=== PATIENT | male | born 1945 | race Caucasian/White ===

== ENCOUNTER 2018-12-08 07:25 | Emergency (ER) | payer MEDICARE ==
--- OUTSIDE RECORDS SUMMARY | 2018-12-08 07:31 | XMS REPORT ---
:1945 [facility] Address [address] [place] [address] [address]. [address] [place] [address] Care Team Providers Name Role Phone Unavailable Unavailable Unavailable Payers Payer Name Policy Type Policy Number Effective Date Expiration Date Problems This patient has no known problems. Allergies, Adverse Reactions, Alerts Allergy Allergy Status Severity Reaction(s) Onset Inactive Treating Comments Name Type Date Date Clinician Tetanus DA Active SV 2017-06 Vaccines -12 and Toxoid 00:00:0 0 Medications This patient has no known medications.
--- OUTSIDE RECORDS SUMMARY | 2018-12-08 07:31 | XMS REPORT | Clinical Summary ---
:1945 Author Organization [facility] Address [address] [place] [address] Care Team Providers Name Role Phone Adam Osman MD Primary Care Provider Allergies Active Allergy Reactions Severity Noted Date Comments Cephalosporins 05/16/2017 Sulfa (Sulfonamide Antibiotics) Rash Low 09/29/2015 Tetanus And Diphtheria Toxoids, Adsorbed, Anaphylaxis High 09/29/2015 Adult Tetanus Vaccines And Toxoid 05/16/2017 Medications Medication Sig Dispensed Refills Start Date End Date Status theophylline Take 600 mg by 0 Active (MESFIN-24) 300 MG 24 mouth daily. hr capsule metFORMIN Take 500 mg by 0 Active (GLUCOPHAGE) 500 mg mouth 2 (two) tablet times a day with meals. guaiFENesin Take 600 mg by 0 Active (MUCINEX) 600 mg mouth 2 (two) tablet extended times a day. release 12hr amLODIPine (NORVASC) Take 10 mg by 0 Active 10 mg tablet mouth daily. traMADol (ULTRAM) 50 Take 150 mg by 0 Active mg tablet mouth nightly. tamsulosin (FLOMAX) Take 0.4 mg by 0 Active 0.4 mg capsule mouth daily with dinner. aspirin (ASPIR-81 Take by mouth. 0 Active ORAL) fluticasone Inhale 1 0 Active furoate-vilanterol inhalations once (BREO ELLIPTA) daily. 200-25 mcg/dose blister with device powder for inhalation umeclidinium Inhale. Uses in 0 Active (INCRUSE ELLIPTA) the afternoon 62.5 mcg/actuation blister with device insulin GLARGINE Inject 20 Units 0 Active (LANTUS) 100 unit/mL under the skin injection (vial) nightly. albuterol (PROAIR Inhale 2 puffs 0 Active HFA,PROVENTIL every 6 (six) HFA,VENTOLIN HFA) 90 hours as needed mcg/actuation for wheezing. inhaler fexofenadine Take 180 mg by 0 Active (MASSIMO) 180 MG mouth daily as tablet needed. traMADol (ULTRAM) 50 Take 1 tablet 10 tablet 0 12/02/2018 12/13/19 Active mg tablet (50 mg total) by 19 mouth every 6 (six) hours as needed for moderate pain for up to 10 days. phenazopyridine Take 1 tablet 30 tablet 0 12/02/2018 12/13/19 Active (PYRIDIUM) 200 MG (200 mg total) 19 tablet by mouth 3 (three) times a day as needed for bladder spasms for up to 10 days. VALSARTAN (DIOVAN Take 1 tablet by 0 11/27/19 Discontinued ORAL) mouth daily. 19 phenazopyridine Take 1 tablet 30 tablet 0 12/02/2018 12/03/19 Discontinued (PYRIDIUM) 200 MG (200 mg total) 19 tablet by mouth 3 (three) times a day as needed for bladder spasms for up to 10 days. ciprofloxacin Take 1 tablet 10 tablet 0 12/02/2018 12/03/19 Discontinued (CIPRO) 500 MG (500 mg total) 19 tablet by mouth 2 (two) times a day for 5 days. traMADol (ULTRAM) 50 Take 1 tablet 10 tablet 0 12/02/2018 12/03/19 Discontinued mg tablet (50 mg total) by 19 mouth every 6 (six) hours as needed for moderate pain for up to 10 days. ciprofloxacin Take 1 tablet 10 tablet 0 12/02/2018 12/08/19 (CIPRO) 500 MG (500 mg total) 19 tablet by mouth 2 (two) times a day for 5 days. Active Problems Not on file Encounters Date Type Specialty Care Team Description 12/02/2018 Surgery Urology Alex Pugh, EXAM UNDER ANESTHESIA, BILATERAL RETROGRADE, REMOVAL OF BLADDER STONE, BLADDER BIOPSY 12/02/2018 Anesthesia Event Urology Triny Hawkins, DISTANCE EDUCATION FACULTY LIAISON 12/02/2018 Hospital Encounter Urology Alex Pugh, Bladder cancer ( HCC) MD after 12/07/2017 Social History Tobacco Use Types Packs/Day Years Used Date Former Smoker Cigarettes 3 48 Quit: 2005 Smokeless Tobacco: Never Used Alcohol Use Drinks/Week oz/Week Comments Not Currently Sex Assigned at Date Recorded Not on file Job Start Date Occupation Industry Not on file Not on file Not on file Travel History Travel Start Travel End No recent travel history available. Last Filed Vital Signs Vital Sign Reading Time Taken Blood Pressure 104/58 12/02/2018 1:43 PM CDT Pulse 107 12/02/2018 1:43 PM CDT Temperature 36.5 C (97.7 F) 12/02/2018 1:43 PM CDT Respiratory Rate 14 12/02/2018 1:43 PM CDT Oxygen Saturation 98% 12/02/2018 1:43 PM CDT Inhaled Oxygen Concentration - - Weight 92.3 kg (203 lb 9 oz) 12/02/2018 9:26 AM CDT Height 180.3 cm (5' 11") 12/02/2018 9:26 AM CDT Body Mass Index 28.39 12/02/2018 9:26 AM CDT Plan of Treatment Health Maintenance Due Date Last Done Comments COLON CANCER SCREENING 1996 SHINGLES VACCINES (#1) 1996 65+ PNEUMOCOCCAL VACCINE (1 of 2 - PCV13) 2011 PNEUMOCOCCAL POLYSACCHARIDE VACCINE AGE 65 AND OVER 2011 INFLUENZA VACCINE 02/05/2019 Procedures Procedure Name Priority Date/Time Associated Comments Diagnosis SURGICAL PATHOLOGY Routine 12/02/2018 1:17 PM Results for this REQUEST CDT procedure are in the results section. CYTOLOGY Routine 12/02/2018 12:54 PM Results for this (NON-GYNECOLOGICAL) CDT procedure are in REQUEST the results section. POC GLUCOSE Routine 12/02/2018 11:37 AM Results for this CDT procedure are in the results section. FL PYELOGRAM Routine 12/02/2018 11:25 AM Results for this RETROGRADE CDT procedure are in the results section. CALCULI ANALYSIS Routine 12/02/2018 11:09 AM Results for this WITH PHOTO CDT procedure are in the results section. CYSTOSCOPY, WITH 12/02/2018 10:55 AM Bladder cancer TURBT CDT ([facility]) Case Notes TF, REQ 1230 START, EST 1HR, POSSIBLE EXTENDED STAY, R/S PER PACO 11/07 [facility] Special Needs TF, REQ 1230 START, EST 1HR, POSSIBLE EXTENDED STAY [place] AN ELECTIVE SUPRAGLOTTIC AIRWAY Routine 12/02/2018 10:53 AM CDT Procedure Note - Jared Esteban Jr., GENERAL MERCHANDISE SALESPERSON - 12/02/2018 10:53 AM CDT Airway Date/Time: 12/02/2018 10:42 AM Performed by: Jared Esteban Jr., CRNA Authorized by: Jonah Johnson DO Location: OR Urgency: Elective Difficult Airway: No Preoxygenated with 100% O2: Yes C-spine Precautions Maintained Throughout: Yes Mask Ventilation: Easy mask Final Airway Type: Supraglottic airway Final LMA: Ambu LMA Size: 5 Number of Attempts at Approach: 1 POC GLUCOSE Routine 12/02/2018 9:15 AM CDT after 12/07/2017 Results Surgical pathology request (12/02/2018 1:17 PM CDT) [facility] DEPARTMENT OF PATHOLOGY AND GENOMIC MEDICINE Surgical pathology See link below [facility] DEPARTMENT OF report for PDF Lab PATHOLOGY AND Report GENOMIC MEDICINE Result status This is Final [facility] DEPARTMENT OF Report for PATHOLOGY AND [id number] GENOMIC MEDICINE Specimen Narrative Performed At [id number] [facility] DEPARTMENT OF PATHOLOGY AND GENOMIC MEDICINE [place] Performing Organization Address [facility] Phone Number [facility] DEPARTMENT OF PATHOLOGY AND [address] [place] [id number] GENOMIC MEDICINE Cytology (non-gynecological) request (12/02/2018 12:54 PM CDT) [facility] DEPARTMENT OF PATHOLOGY AND GENOMIC MEDICINE Cytology See link below [facility] DEPARTMENT OF (non-gynecological) for PDF Lab PATHOLOGY AND report Report GENOMIC MEDICINE Result status This is Final [facility] DEPARTMENT OF Report for PATHOLOGY AND [id number] GENOMIC MEDICINE Specimen Performing Organization Address [facility] Phone Number [facility] DEPARTMENT OF PATHOLOGY AND [address] [place] [phone] GENOMIC MEDICINE POC glucose (12/02/2018 11:37 AM CDT)Only the most recent of2 resultswithin the time period is included. Pathologist [facility] POC glucose 124 (H) 65 - 99 mg/dL [facility] Comment: [facility] Notified RN Meter ID: [id number] Advisory Software Engineer: Edmund Paredesa Specimen Performing Organization Address City/[facility] Phone Number [facility] DEPARTMENT OF PATHOLOGY AND [address] [place] [phone] GENOMIC MEDICINE [facility] [address] [place] [address] [place] Pyelogram Retrograde (12/02/2018 11:25 AM CDT) Specimen Narrative Performed At IMPRESSION:C-arm Fluoroscopy under 1 hour was provided in the OR for [facility] the referring physician.A radiologist was not present during the procedure. Refer to the Operative report issued by the performing provider for procedure details. Procedure Note Interface, Radiology Results Incoming - 12/02/2018 3:09 PM CDT IMPRESSION: C-arm Fluoroscopy under 1 hour was provided in the OR for the referring physician. A radiologist was not present during the procedure. Refer to the Operative report issued by the performing provider for procedure details. Performing Organization Address City/State/Zipcode Phone Number [facility] [address] [place] [address] Calculi analysis with photo (12/02/2018 11:09 AM CDT) Calculi mass See Note mg [facility] Comment: Sample mass < 2 mg. Small sample size prevents accurate weight determination. Calculi number 1 [facility] Calculi size 1 to 4 mm [facility] Calculi descrption See Note [facility] Comment: Specimen received wet, not the preferred dry state. Wet specimens often delay analysis. Specimen consists of a single, small, brown, irregular calculus. Calculi composition See Note [facility] Comment: Calculi composed primarily of: 90% calcium oxalate monohydrate, and 10% calcium phosphate (hydroxy- and carbonate- apatite). INTERPRETIVE INFORMATION: Calculi (Stone) analysis Calculi are the products of physiological processes that yield crystalline compounds in a matrix of biological compounds and blood.Matrix components are not reported.The clinically significant crystalline components identified in calculi specimens are reported.Gross description may not be consistent with composition determined by FTIR analysis. EER calculi (stone) See Note [facility] analysis and photo Comment: Access [facility] Enhanced Report using either link below: -Direct access: [email or web address] -Enter Username, Password: [email or web address] Username: [email or web address] Password: [email or web address] Performed by [facility] [employer], [address] [place] [address] [email or web address], Walker Larkin MD - Lab. Director Specimen Serum Narrative Performed At [id number] [facility] [place] Performing Organization Address City/State/Zipcode Phone Number [facility] [address] [place] [address] [facility] [address] [place] [address] after 12/07/2017 Advance Directives Patient has advance care planning documents on file. For more information, please contact:Jose Miguel Garces[address] [place] [address]
--- NOTE | 2018-12-08 07:56 | EKG ---
Test Date: 2018-12-08 Test Time: 07:44:55 Weld Engineer: SWG MEASUREMENT RESULTS: Intervals: Rate: 134 NC: QRSD: 128 QT: 400 QTc: 597 Paden: P: NC: QRS: -64 T: 94 INTERPRETIVE STATEMENTS: Sinus tachycardia Left axis deviation Right bundle branch block Abnormal ECG Compared to ECG 08/11/2016 05:35:34 Sinus rhythm no longer present Electronically Signed On 12-08-18 07:55:25 CDT by Ric Hudson
[2018-12-08] MEDS ORDERED: ALBUTEROL 2.5 MG/3 ML NEB SOL ONE (07:59)
[2018-12-08] MEDS ORDERED: NA CHLORIDE 0.9% 500 ML ONE (07:59)
[2018-12-08] MEDS ORDERED: IPRATROPIUM BROM 0.5MG/2.5ML ONE (07:59)
[2018-12-08 08:08] LABS: Absolute Lymphocytes (CBC) 0.7 K/uL (0.7-4.9); Absolute Monocytes 0.9 K/uL (0.1-1.3); Absolute Neutrophil 7.9 K/uL (1.8-8.0); Basophils % 1.1 % (0-1.3); Eosinophils % 0.3 % (0-4.4); Hematocrit 39.9 % (39.6-49.0); Lymphocytes % 7.4 % (15.3-44.8); MPV 9.4 fL (7.6-11.3); Monocytes % 9.3 % (3.3-12.3); RBC Red Blood Cell Count 4.97 M/uL (4.33-5.43)
[2018-12-08 08:12] LABS: Protime INR 1.18
[2018-12-08 08:37] LABS: Albumin 3.1 g/dL (3.4-5.0); Bilirubin Direct 0.2 mg/dL (0-0.2); Bilirubin Total 0.5 mg/dL (0.2-1.0); Magnesium 1.9 mg/dL (1.8-2.4); Potassium 4.1 mmol/L (3.5-5.1); Protein, Total 7.3 g/dL (6.4-8.2)
[2018-12-08 08:38] LABS: Troponin (Emerg Dept Use Only) 1.45 ng/mL (0.0-0.045)
--- NOTE | 2018-12-08 09:05 | RAD REPORT ---
EXAM DESCRIPTION: RAD - Chest Single View - 12/08/2018 7:52 am CLINICAL HISTORY: COPD Chest pain. COMPARISON: Chest Pa And Lat (2 Views) dated 11/07/2018; Chest Pa And Lat (2 Views) dated 05/13/2018; C hest Pa And Lat (2 Views) dated 10/30/2016; Abdomen 1 View (KUB) dated 10/08/2016 FINDINGS: Portable technique limits examination quality. Diffuse COPD is present. Rounded opacity in the medial right upper lobe and left lung base noted susp icious for infiltrate/ pneumonia bilaterally. The heart is normal in size. No displaced fractures. IMPRESSION: Bilateral pneumonia pattern is suspected.
--- NOTE | 2018-12-08 09:49 | ER ---
Nurse's Notes [facility] Name: Massimo Hauser Age: 73 yrs Sex: Male : 1945 Arrival Date: 12/08/2018 Time: 07:26 Bed 4 Private MD: Kevin Arana Diagnosis: Lobar pneumonia, unspecified organism;Non-ST elevation (NSTEMI) myocardial infarction Presentation: 12/08 07:35 Presenting complaint: states: pt has had increasing SOB X 6 days, hx of COPD, uses home O2 as needed but has been needing it 28/01, pt is 80% on RA, denies fever, +cough, symptoms started after bladder biopsy at [facility] on Saturday. Transition of care: patient was not received from another setting of care. Onset of symptoms was December 02, 2018. Risk Assessment: Do you want to hurt yourself or someone else? Patient reports no desire to harm self or others. Initial Sepsis Screen: Does the patient meet any 2 criteria? RR > 20 per min. HR > 90 bpm. Does the patient have a suspected source of infection? No. Patient's initial sepsis screen is negative. Initial Sepsis Screen: Does the patient have a suspected source of infection?. Care prior to arrival: None. 07:35 Method Of Arrival: Wheelchair iw 07:35 Acuity: CHEO 2 iw Historical: - Allergies: 07:41 CEPHALOSPORINS; iw 07:41 Sulfa (Sulfonamide Antibiotics); iw 07:41 Tetanus Immune Globulin; iw - Home Meds: 14:17 Flomax 0.4 mg oral cp24 once daily [Active]; Lantus 100 unit/mL subcutaneous soln 20 sg unit nightly [Active]; metformin 500 mg oral tab 2 times per day [Active]; Norvasc 10 mg oral tab once daily [Active]; irbesartan 150 mg oral tab 1 tab once daily [Active]; atorvastatin 10 mg oral tab 1 tab once daily [Active]; tramadol 50 mg Oral tab 1 tab every 6 hours [Active]; Breo Ellipta 200-25 mcg/dose inhalation dsdv 1 puff once daily [Active]; Incruse Ellipta 62.5 mcg/actuation inhalation dsdv 1 puff once daily [Active]; - PMHx: 07:41 Diabetes - NIDDM; COPD; Emphysema; Hypertension; iw - Immunization history:: Adult Immunizations up to date. - Social history:: The patient lives at home, Smoking status: Patient/guardian denies using tobacco. - Ebola Screening: : Patient negative for fever greater than or equal to 101.5 degrees Fahrenheit, and additional compatible Ebola Virus Disease symptoms Patient denies exposure to infectious person Patient denies travel to an Ebola-affected area in the 21 days before illness onset No symptoms or risks identified at this time. Screenin:50 Abuse screen: Denies threats or abuse. Denies injuries from another. Nutritional hb screening: No deficits noted. Tuberculosis screening: No symptoms or risk factors identified. Fall Risk None identified. Assessment: 07:45 General: Appears distressed, Behavior is cooperative, agitated. Pain: Denies pain. hb Neuro: Level of Consciousness is awake, alert, obeys commands, Oriented to person, place, time, situation. Cardiovascular: Heart tones S1 S2 present Capillary refill < 3 seconds Patient's skin is warm and dry. Rhythm is tachy. Respiratory: Airway is patent Trachea midline Respiratory effort is labored, Respiratory pattern is tachypnea Breath sounds are diminished bilaterally. Breath sounds with rhonchi bilaterally. GI: No signs and/or symptoms were reported involving the gastrointestinal system. : No signs and/or symptoms were reported regarding the genitourinary system. EENT: No signs and/or symptoms were reported regarding the EENT system. Derm: Skin is intact, is healthy with good turgor, Skin is pink, warm \T\ dry. Musculoskeletal: No signs and/or symptoms reported regarding the musculoskeletal system. 08:30 Reassessment: No changes from previously documented assessment. Patient and/or family hb updated on plan of care and expected duration. Pain level reassessed. 09:30 Reassessment: No changes from previously documented assessment. Patient and/or family hb updated on plan of care and expected duration. Pain level reassessed. 10:15 Reassessment: No changes from previously documented assessment. Patient and/or family hb updated on plan of care and expected duration. Pain level reassessed. 11:09 Reassessment: No changes from previously documented assessment. Patient and/or family hb updated on plan of care and expected duration. Pain level reassessed. Admission ordered, awaiting room assignment at this time. 11:45 Reassessment: Pt reports increasing SOB, SpO2 >95% on 4LNC, Dr. Tavares notified. No new hb orders at this time. 11:59 Reassessment: Dr. Hudson at bedside. hb 12:40 Reassessment: Patient and/or family updated on plan of care and expected duration. Pain hb level reassessed. Respirations mildly labored, SpO2 >95% on 4LNC. Dr. Tavares aware. 13:30 Reassessment: No changes from previously documented assessment. Patient and/or family hb updated on plan of care and expected duration. Pain level reassessed. 14:15 Reassessment: Pt reports worsening SOB, Dr. Tavares notified, amiodarone adminsitered as hb ordered. Dr. Hudson at bedside. Vital Signs: 07:39 BP 112 / 71; Pulse 136; Resp 25; Temp 97.8(TE); Pulse Ox 80% on R/A; Weight 86.18 kg iw (R); Height 5 ft. 11 in. (180.34 cm); Pain 0/10; 07:42 Pulse Ox 92% on 4 lpm NC; iw 09:00 BP 110 / 68; Pulse 134; Resp 21; Pulse Ox 93% on 4 lpm NC; hb 10:00 BP 106 / 64; Pulse 128; Resp 22; Pulse Ox 94% on 4 lpm NC; hb 11:00 BP 104 / 88; Pulse 136; Resp 21; Temp 97.9; Pulse Ox 94% on 4 lpm NC; Pain 0/10; hb 07:39 Body Mass Index 26.50 (86.18 kg, 180.34 cm) iw ED Course: 07:26 Patient arrived in ED. mr 07:27 Kevin Arana MD is Private Physician. mr 07:38 Lauro Tavares MD is Attending Physician. gs 07:39 Triage completed. iw 07:39 Arm band placed on. iw 07:42 Missed attempt(s): 20 gauge in left forearm. Bleeding controlled, band aid applied, hb catheter tip intact. 07:50 X-ray completed. Portable x-ray completed in exam room. Patient tolerated procedure jb2 well. 07:50 Patient has correct armband on for positive identification. Placed in gown. Bed in low hb position. Call light in reach. Side rails up X 1. 07:53 XRAY Chest (1 view) In Process Unspecified. EDMS 07:58 Initial lab(s) drawn, by me, sent to lab. Inserted saline lock: 20 gauge in right dh3 forearm, using aseptic technique. Blood collected. 07:58 First set of blood cultures drawn by me, Flu and/or RSV swab sent to lab. dh3 08:15 Second set of blood cultures drawn by me. dh3 08:39 Notified ED physician of a critical lab result(s). Trop=1.45. iw 09:28 lactate drawn by me and sent to lab. dh3 09:48 Selena Chavez MD is Hospitalizing Provider. gs 10:07 Repeat lab(s) drawn. by me, sent to lab. sputum culture collected and sent to lab. dh3 10:26 Natasha Simons, VIKTORIYA is Primary Nurse. hb 10:45 Notified ED physician of a critical lab result(s). TROP 1.24. iw 13:39 EKG done, by senior wind turbine technician. reviewed by Lauro Tavares MD Repeat EKG. at1 14:40 No provider procedures requiring assistance completed. Patient admitted, IV remains in hb place. Administered Medications: 07:50 Drug: Albuterol 2.5 mg Route: Inhalation; sg 07:50 Drug: AtroVENT Aerosol 0.5 mg Route: Inhalation; hb 07:50 Drug: NS 0.9% 500 ml Route: IV; Rate: bolus; Site: right forearm; sg 08:30 Follow up: Response: No adverse reaction; IV Status: Completed infusion; IV Intake: sg 500ml 09:55 Drug: LevaQUIN 750 mg Volume: 150 ml; Route: IVPB; Infused Over: 90 mins; Site: right hb forearm; 11:40 Follow up: Response: No adverse reaction; IV Status: Completed infusion; IV Intake: hb 150ml 10:02 Drug: Aspirin Chewable Tablet 324 mg Route: PO; hb 11:00 Follow up: Response: No adverse reaction sg 13:45 Not Given (Duplicate Order): amiodarone 150 mg IVP once iw 14:10 Drug: amiodarone 150 mg Volume: 100 ml; Route: IVPB; Infused Over: 10 mins; Site: right sg antecubital; 14:25 Follow up: Response: No adverse reaction; IV Status: Completed infusion sg Intake: 08:30 IV: 500ml; Total: 500ml. sg 11:40 IV: 150ml; Total: 650ml. hb Outcome: 09:48 Decision to Hospitalize by Provider. gs 14:20 ER care complete, transfer ordered by . gs 14:40 Transferred by ground EMS to [facility]. hb 14:40 Condition: stable 14:40 Instructed on the need for admit, Demonstrated understanding of instructions. 14:56 Patient left the ED. sg Signatures: Dispatcher [employer] EDLele Whipple RN RN Esther Hair, Jasmeet jb2 Karen Marcelo RN RN Triny Marquez, personal property appraiser EKG Tat1 Natasha Simons RN RN Manny, Sabrina 3 Lauro Tavares MD MD Corrections: (The following items were deleted from the chart) 14:17 08:06 Home Meds: Aspirin Oral; [facility] 14:17 08:06 Home Meds: Diovan Oral; [facility] 14:17 08:06 Home Meds: Flomax Oral; [facility] 14:17 08:06 Home Meds: Lantus Sub-Q; [facility] 14:17 08:06 Home Meds: Metformin Oral; [facility] 14:17 08:06 Home Meds: Mucinex Oral; [facility] 14:17 08:06 Home Meds: Norvasc Oral; [facility] 14:17 08:06 Home Meds: Theophylline Oral; [facility]
--- NOTE | 2018-12-08 09:50 | EDPHYS ---
Physician Documentation [facility] Name: Massimo Hauser Age: 73 yrs Sex: Male : 1945 Arrival Date: 12/08/2018 Time: 07:26 Bed 4 Private MD: Kevin Arana ED Physician Lauro Tavares HPI: 12/08 09:14 This 73 yrs old Male presents to ER via Wheelchair with complaints of gs Breathing Difficulty. 09:14 Onset: The symptoms/episode began/occurred 5 day(s) ago, and became worse and became gs persistent. Duration: The symptoms are continuous. The patient's shortness of breath has no apparent modifying factors. Associated signs and symptoms: Pertinent positives: non-productive cough, Pertinent negatives: chest pain, fever. Severity of symptoms: At their worst the symptoms were severe in the emergency department the symptoms are unchanged. The patient has experienced similar episodes in the past, a few times. Historical: - Allergies: 07:41 CEPHALOSPORINS; iw 07:41 Sulfa (Sulfonamide Antibiotics); iw 07:41 Tetanus Immune Globulin; iw - Home Meds: 14:17 Flomax 0.4 mg oral cp24 once daily [Active]; Lantus 100 unit/mL subcutaneous soln 20 sg unit nightly [Active]; metformin 500 mg oral tab 2 times per day [Active]; Norvasc 10 mg oral tab once daily [Active]; irbesartan 150 mg oral tab 1 tab once daily [Active]; atorvastatin 10 mg oral tab 1 tab once daily [Active]; tramadol 50 mg Oral tab 1 tab every 6 hours [Active]; Breo Ellipta 200-25 mcg/dose inhalation dsdv 1 puff once daily [Active]; Incruse Ellipta 62.5 mcg/actuation inhalation dsdv 1 puff once daily [Active]; - PMHx: 07:41 Diabetes - NIDDM; COPD; Emphysema; Hypertension; iw - Immunization history:: Adult Immunizations up to date. - Social history:: The patient lives at home, Smoking status: Patient/guardian denies using tobacco. - Ebola Screening: : Patient negative for fever greater than or equal to 101.5 degrees Fahrenheit, and additional compatible Ebola Virus Disease symptoms Patient denies exposure to infectious person Patient denies travel to an Ebola-affected area in the 21 days before illness onset No symptoms or risks identified at this time. ROS: 09:14 All other systems are negative. gs Exam: 09:14 Head/Face: Normocephalic, atraumatic. Eyes: Pupils equal round and reactive to light, gs extra-ocular motions intact. Lids and lashes normal. Conjunctiva and sclera are non-icteric and not injected. Cornea within normal limits. Periorbital areas with no swelling, redness, or edema. ENT: Nares patent. No nasal discharge, no septal abnormalities noted. Tympanic membranes are normal and external auditory canals are clear. Oropharynx with no redness, swelling, or masses, exudates, or evidence of obstruction, uvula midline. Mucous membranes moist. Neck: Trachea midline, no thyromegaly or masses palpated, and no cervical lymphadenopathy. Supple, full range of motion without nuchal rigidity, or vertebral point tenderness. No Meningismus. Chest/axilla: Normal chest wall appearance and motion. Nontender with no deformity. No lesions are appreciated. 09:14 Abdomen/GI: Soft, non-tender, with normal bowel sounds. No distension or tympany. No guarding or rebound. No evidence of tenderness throughout. Back: No spinal tenderness. No costovertebral tenderness. Full range of motion. Skin: Warm, dry with normal turgor. Normal color with no rashes, no lesions, and no evidence of cellulitis. MS/ Extremity: Pulses equal, no cyanosis. Neurovascular intact. Full, normal range of motion. Neuro: Awake and alert, GCS 15, oriented to person, place, time, and situation. Cranial nerves II-XII grossly intact. Motor strength 5/5 in all extremities. Sensory grossly intact. Cerebellar exam normal. Normal gait. 09:14 Constitutional: The patient appears alert, awake, in obvious distress, severely distressed. 09:14 Cardiovascular: Rate: tachycardic, Rhythm: regular, Pulses: no pulse deficits are appreciated, Heart sounds: normal. 09:14 ECG was reviewed by the Attending Physician. 09:14 Respiratory: severe repiratory distress is noted, Respirations: tachypnea, Breath sounds: decreased breath sounds, that are moderate, are scattered. Vital Signs: 07:39 BP 112 / 71; Pulse 136; Resp 25; Temp 97.8(TE); Pulse Ox 80% on R/A; Weight 86.18 kg iw (R); Height 5 ft. 11 in. (180.34 cm); Pain 0/10; 07:42 Pulse Ox 92% on 4 lpm NC; iw 09:00 BP 110 / 68; Pulse 134; Resp 21; Pulse Ox 93% on 4 lpm NC; hb 10:00 BP 106 / 64; Pulse 128; Resp 22; Pulse Ox 94% on 4 lpm NC; hb 11:00 BP 104 / 88; Pulse 136; Resp 21; Temp 97.9; Pulse Ox 94% on 4 lpm NC; Pain 0/10; hb 07:39 Body Mass Index 26.50 (86.18 kg, 180.34 cm) iw MDM: 07:38 Patient medically screened. gs 09:14 Differential diagnosis: Bronchitis CHF exacerbation, Chronic Obstructive Pulmonary gs Disease Myocardial Infarction pneumonia. Data reviewed: vital signs, nurses notes, diagnostic data from outside facility, lab test result(s), EKG, radiologic studies. Counseling: I had a detailed discussion with the patient and/or guardian regarding: the historical points, exam findings, and any diagnostic results supporting the discharge/admit diagnosis, the need for further work-up and treatment in the hospital. Response to treatment: the patient's symptoms have markedly improved after treatment, and as a result, I will admit patient. 12:47 ED course: dr tomlinson felt pt might need cath and balloon pump requests transfer. 12/08 07:39 Order name: Basic Metabolic Panel; Complete Time: 08:40 12/08 07:39 Order name: CBC with Diff; Complete Time: 08:40 12/08 07:39 Order name: LFT's; Complete Time: 08:40 12/08 07:39 Order name: Magnesium; Complete Time: 08:40 12/08 07:39 Order name: NT PRO-BNP; Complete Time: 08:40 12/08 07:39 Order name: PT-INR; Complete Time: 08:40 12/08 07:39 Order name: Troponin (emerg Dept Use Only); Complete Time: 08:40 12/08 07:41 Order name: D-Dimer; Complete Time: 08:51 gs 12/08 09:14 Order name: Lactate; Complete Time: 12:36 12/08 09:38 Order name: Blood Culture EDAK 12/08 09:38 Order name: Influenza Screen (A ; Complete Time: 12:36 [facility] 12/08 09:38 Order name: Procalcitonin; Complete Time: 12:36 [facility] 12/08 09:38 Order name: Sputum Culture EDAK 12/08 09:38 Order name: Troponin I [facility] 12/08 07:39 Order name: XRAY Chest (1 view); Complete Time: 09:07 12/08 07:39 Order name: EKG; Complete Time: 07:42 12/08 09:38 Order name: CONS Physician Consult [facility] 12/08 09:38 Order name: Troponin I; Complete Time: 12:36 [facility] 12/08 12:38 Order name: ABG 12/08 07:39 Order name: Cardiac monitoring; Complete Time: 07:41 12/08 07:39 Order name: EKG - Nurse/Tech; Complete Time: 07:41 12/08 07:39 Order name: IV Saline Lock; Complete Time: 08:23 12/08 07:39 Order name: Labs collected and sent; Complete Time: 08:23 12/08 07:39 Order name: O2 Per Protocol; Complete Time: 07:41 12/08 07:39 Order name: O2 Sat Monitoring; Complete Time: 07:41 gs EC:14 Rate is 134 beats/min. Rhythm is regular. QRS interval is prolonged. QT interval is gs prolonged. Clinical impression: NSR w/ Non-specific ST/T Changes and Cardiac ischemia. Interpreted by me. Administered Medications: 07:50 Drug: Albuterol 2.5 mg Route: Inhalation; sg 07:50 Drug: AtroVENT Aerosol 0.5 mg Route: Inhalation; hb 07:50 Drug: NS 0.9% 500 ml Route: IV; Rate: bolus; Site: right forearm; sg 08:30 Follow up: Response: No adverse reaction; IV Status: Completed infusion; IV Intake: sg 500ml 09:55 Drug: LevaQUIN 750 mg Volume: 150 ml; Route: IVPB; Infused Over: 90 mins; Site: right hb forearm; 11:40 Follow up: Response: No adverse reaction; IV Status: Completed infusion; IV Intake: hb 150ml 10:02 Drug: Aspirin Chewable Tablet 324 mg Route: PO; hb 11:00 Follow up: Response: No adverse reaction sg 13:45 Not Given (Duplicate Order): amiodarone 150 mg IVP once iw 14:10 Drug: amiodarone 150 mg Volume: 100 ml; Route: IVPB; Infused Over: 10 mins; Site: right sg antecubital; 14:25 Follow up: Response: No adverse reaction; IV Status: Completed infusion sg Disposition: 09:14 Critical Care:. gs Disposition: 12/08/18 14:20 Transfer ordered to [facility]. Diagnosis are Lobar pneumonia, unspecified organism, Non-ST elevation (NSTEMI) myocardial infarction. - Reason for transfer: Higher level of care. - Accepting physician is ashley. - Condition is Stable. - Problem is new. - Symptoms have improved. Critical care time excluding procedures: 09:14 Critical care time: Bedside Care: 10 minutes, Consultation: 10 minutes, Family gs Intervention: 10 minutes. Total time: 30 minutes Signatures: Dispatcher [employer] EDLele Whipple RN RN Karen Marcelo RN RN Natasha Simons RN RN Lauro Tavares MD MD Sae Ma RN RN ja Corrections: (The following items were deleted from the chart) 09:49 09:48 Hospitalization Ordered by Selena Chavez MD for Inpatient Admission. Preliminary diagnosis is Lobar pneumonia, unspecified organism; Acute respiratory failure with hypoxia. Bed requested for Telemetry/MedSurg (Inpatient). Status is Inpatient Admission. Condition is Stable. Problem is new. Symptoms have improved. UTI on Admission? No. gs 10:10 09:49 12/08/2018 09:48 Hospitalization Ordered by Selena Chavez MD for Inpatient ja1 Admission. Preliminary diagnosis is Lobar pneumonia, unspecified organism; Acute respiratory failure with hypoxia; Non-ST elevation (NSTEMI) myocardial infarction. Bed requested for Telemetry/MedSurg (Inpatient). Status is Inpatient Admission. Condition is Stable. Problem is new. Symptoms have improved. UTI on Admission? No. gs 11:46 10:10 12/08/2018 09:48 Hospitalization Ordered by Selena Chavez MD for Inpatient iw Admission. Preliminary diagnosis is Lobar pneumonia, unspecified organism; Acute respiratory failure with hypoxia; Non-ST elevation (NSTEMI) myocardial infarction. Bed requested for Telemetry/MedSurg (Inpatient). Status is Inpatient Admission. Condition is Stable. Problem is new. Symptoms have improved. UTI on Admission? No. ja1 11:49 11:46 12/08/2018 09:48 Hospitalization Ordered by Selena Chavez MD for Inpatient Admission. Preliminary diagnosis is Lobar pneumonia, unspecified organism; Acute respiratory failure with hypoxia; Non-ST elevation (NSTEMI) myocardial infarction. Bed requested for Telemetry/MedSurg (Inpatient). Status is Inpatient Admission. Condition is Stable. Problem is new. Symptoms have improved. UTI on Admission? No. 12:43 11:49 12/08/2018 09:48 Hospitalization Ordered by Selena Chavez MD for Inpatient [facility] Admission. Preliminary diagnosis is Lobar pneumonia, unspecified organism; Acute respiratory failure with hypoxia; Non-ST elevation (NSTEMI) myocardial infarction. Bed requested for Intensive Care Unit. Status is Inpatient Admission. Condition is Stable. Problem is new. Symptoms have improved. UTI on Admission? No. 12:47 12:43 12/08/2018 09:48 Hospitalization Ordered by Selena Chavez MD for Inpatient Admission. Preliminary diagnosis is Lobar pneumonia, unspecified organism; Acute respiratory failure with hypoxia; Non-ST elevation (NSTEMI) myocardial infarction. Bed requested for Intensive Care Unit. Status is Inpatient Admission. Condition is Stable. Problem is new. Symptoms have improved. UTI on Admission? No. ja1 14:17 08:06 Home Meds: Aspirin Oral; sg 14:17 08:06 Home Meds: Diovan Oral; sg 14:17 08:06 Home Meds: Flomax Oral; sg 14:17 08:06 Home Meds: Lantus Sub-Q; iw sg 14:17 08:06 Home Meds: Metformin Oral; sg 14:17 08:06 Home Meds: Mucinex Oral; sg 14:17 08:06 Home Meds: Norvasc Oral; sg 14:17 08:06 Home Meds: Theophylline Oral; sg 14:18 12:47 12/08/2018 09:48 Hospitalization Ordered by Selena Chavez MD for Inpatient Admission. Preliminary diagnosis is Lobar pneumonia, unspecified organism; Acute respiratory failure with hypoxia; Non-ST elevation (NSTEMI) myocardial infarction. Bed requested for Intensive Care Unit. Status is Inpatient Admission. Condition is Stable. Problem is new. Symptoms have improved. UTI on Admission? No. iw 14:56 14:20 12/08/2018 14:20 Transfer ordered to [facility]. Diagnosis is sg Lobar pneumonia, unspecified organism; Non-ST elevation (NSTEMI) myocardial infarction. Reason for transfer: Higher level of care. Accepting physician is ashley. Condition is Stable. Problem is new. Symptoms have improved. gs
[2018-12-08] MEDS ORDERED: ASPIRIN 81 MG CHEWABLE TABLET ONE (10:17)
[2018-12-08] MEDS ORDERED: Levofloxacin 750mg IV 750 MG/150 ML BAG IV ONE (10:17)
--- NOTE | 2018-12-08 12:12 | ECHO ---
HEIGHT: ft in WEIGHT: lb oz DATE OF STUDY: 12/08/[address]: Ric Hudson MD 2-DIMENSIONAL: YES M.MODE: YES DOPPLER: YES COLOR FLOW: YES TDS: YES PORTABLE: NO DEFINITY: NO BUBBLE STUDY: NO DIAGNOSIS: SHORTNESS OF BREATH CARDIAC HISTORY: CATHERIZATION: SURGERY: PROSTHETIC VALVE: PACEMAKER: MEASUREMENTS (cm) DIASTOLIC (NORMALS) SYSTOLIC (NORMALS) IVSd 1.0 (0.6-1.2) LA Diam (1.9-4.0) LVEF 23% LVIDd 5.5 (3.5-5.7) LVIDs 4.9 (2.0-3.5) %FS 11% LVPWd 1.1 (0.6-1.2) Ao Diam 2.9 (2.0-3.7) 2 DIMENSIONAL ASSESSMENT: RIGHT ATRIUM: DILATED LEFT ATRIUM: DILATED RIGHT VENTRICLE: DILATED LEFT VENTRICLE: DILATED TRICUSPID VALVE: NORMAL MITRAL VALVE: NORMAL PULMONIC VALVE: NORMAL AORTIC VALVE: NORMAL PERICARDIAL EFFUSION: NONE AORTIC ROOT: NORMAL LEFT VENTRICULAR WALL MOTION: GLOBAL HYPOKINESIS. DOPPLER/COLOR FLOW: NORMAL. COMMENTS: FOUR CHAMBER DILATATION. BI VENTRICULAR CONGESTIVE HEART FAILURE TECHNOLOGIST: MEENU PEREIRA
[2018-12-08] MEDS ORDERED: MIDAZOLAM HCL 2 MG/2 ML INJ ONE (13:58)
[2018-12-08] MEDS ORDERED: NA CHLORIDE 0.9% 1,000 ML ONE (13:59)
[2018-12-08] MEDS ORDERED: FENTANYL CITR 100 MCG/2 ML ONE (13:59)
[2018-12-08] MEDS ORDERED: AMIODARONE HCL 150 MG/3 ML INJ IV ONE (13:59)
[2018-12-08] MEDS ORDERED: D5W 100 ML IV ONE (14:03)
--- NOTE | 2018-12-08 14:58 | EKG ---
Test Date: 2018-12-08 Test Time: 13:36:57 Purchasing Director: IRA MEASUREMENT RESULTS: Intervals: Rate: 147 LA: QRSD: 132 QT: 352 QTc: 550 [place]: P: LA: QRS: -71 T: 94 INTERPRETIVE STATEMENTS: Sinus tachycardia with PAC sLeft axis deviation Right bundle branch block Abnormal ECG Compared to ECG 12/08/2018 07:44:55 PAC s are now present Electronically Signed On 12-08-18 14:57:41 CDT by Ric Hudson
[2018-12-08 15:05] VITALS: O2SAT 94
[2018-12-08 15:07] VITALS: BP 104/88; TEMP 97.9
--- NOTE | 2018-12-08 16:27 | CON ---
History Of Present Illness: Mr. Hauser is a 73. He came to the hospital because of shortness of breath. He has been short of breath for about 5 days. Denies any fever or chills, but he has been c oughing and progressively more and more short of breath and having chest pain. When he came to the ospital his x-ray looks like pneumonia right upper lobe, perhaps also on the left. He has a normal w odalis blood cell count but a leftward shift. Does not have a fever. Quite dyspneic and he has sinus tachycardia with a right bundle. His right bundle is old. All of his other EKGs have shown right bu ndle-branch block. Mr. Hauser was a heavy cigarette smoker. He has underlying bladder cancer. R ecently, he had a biopsy of bladder tissue that seemed to be the onset of when he started feeling dys pneic. He also has a history of bilateral iliac artery stents, but no coronary stents. He was evalu ated by Dr. Lindsay about a month ago. There were no issues regarding his heart at that time. His ome medications are aspirin, Diovan, Flomax, Lantus insulin, metformin, Mucinex, Norvasc, and theophy lline. He has underlying diabetes, COPD, hypertension, peripheral vascular disease, bladder cancer. Allergies: HE IS ALLERGIC TO SULFONAMIDE ANTIBIOTICS AND CEPHALOSPORIN ANTIBIOTICS. Physical Examination: General: He is alert, oriented, pleasant. He is out of breath. Lungs: Revealed a decreased breath sounds on his right lung, especially upper. There are wheezes th roughout. Abdomen: Soft. Extremities: No edema. Distal pulses are diminished but palpable. Laboratory Data: His EKG shows sinus tachycardia, right bundle-branch block and troponins are 1.45 a nd 1.24. The procalcitonin level is less than 0.05. Impression: The patient seems to have either consolidation from pulmonary edema or a mass or pneumon ia. Seeing the procalcitonin, white blood cell count, it is hard to really think this is purely pneum onia. It looks more complicated and I think a CT of the chest might be helpful to figure out what is going on in that right upper lobe of his lung. Pulmonary change consultant might also be helpful. The abn ormal troponins suggest myocardial necrosis. I think an echocardiogram will help us. At some point he should probably have a cardiac cath. Right now trying to treat his breathing trouble without lisa stallworth a cardiac cath, is probably useful. We need to try and get his heart rate lower, blood pressure hi gher, get him more comfortable before we do a cardiac cath. ALBERT Voice ID: [id number] Report ID: [id number]
== END 2018-12-08 14:56 | disposition short-term general hospital (02) ==
LOC: ER 07:25 → ERHOLD 09:36 → UNDOADMIN 09:36 → ER 14:56
DX: I21.4 Non-ST elevation (NSTEMI) myocardial infarction (principal); J18.1 Lobar pneumonia, unspecified organism; I10 Essential (primary) hypertension; E11.9 Type 2 diabetes mellitus without complications; J44.9 Chronic obstructive pulmonary disease, unspecified; Z79.4 Long term (current) use of insulin; Z88.2 Allergy status to sulfonamides; Z88.3 Allergy status to other anti-infective agents; Z88.7 Allergy status to serum and vaccine
CPT/HCPCS: 96365; 96361; 93005 ×2; 93306; 87040 ×2; 85025; 80048; 36415; 83735; 87205; 85610; 85379; 80076; 83605; 84484 ×2; 84145; 83880; 87804 ×2; 71045; 96375; 99285; 96366; J0282; J7030; J2250; J3010

== ENCOUNTER 2019-01-14 11:24 | Inpatient (IN) | payer MEDICARE ==
--- OUTSIDE RECORDS SUMMARY | 2019-01-14 11:45 | XMS REPORT | Clinical Summary ---
:1945 Author Organization [facility] Address [address] [place] [address] Care Team Providers Name Role Phone Adam [...] 180 MG mouth daily as tablet needed. VALSARTAN (DIOVAN Take 1 tablet by 0 [...] 1 tablet 10 tablet 0 12/02/2018 12/13/19 mg tablet (50 mg total) by 19 mouth every 6 (six) hours as needed for moderate pain for up to 10 days. phenazopyridine Take 1 tablet 30 tablet 0 12/02/2018 12/13/19 (PYRIDIUM) 200 MG (200 mg total) 19 tablet by mouth 3 (three) times a day as needed for bladder spasms for up to 10 days. Active Problems Not on file Encounters Date Type Specialty Care Team Description 12/26/2018 Telephone Urology Alex Pugh MD 12/12/2018 Telephone Urology Alex Pugh MD 12/02/2018 Surgery Urology Alex Pugh, EXAM UNDER ANESTHESIA, BILATERAL RETROGRADE, REMOVAL OF BLADDER STONE, BLADDER BIOPSY 12/02/2018 Anesthesia Event Urology Triny Hawkins, WATCH BAND ASSEMBLER 12/02/2018 Hospital Encounter Urology Alex Pugh, Bladder cancer ( HCC) MD after 01/13/2018 Social History Tobacco Use Types Packs/Day Years Used Date Former Smoker Cigarettes 3 48 Quit: 2006 Smokeless Tobacco: Never Used Alcohol Use Drinks/Week [...] Health Maintenance Due Date Last Done Comments COLONOSCOPY SCREENING 1996 SHINGLES VACCINES (#1) 1996 65+ PNEUMOCOCCAL VACCINE (1 of 2 - PCV13) 2011 INFLUENZA VACCINE 02/05/2019 Procedures Procedure Name [...] 12/02/2018 10:55 AM Bladder cancer TURBT CDT ([facility]) Case Notes TF, REQ 1230 START, EST 1HR, POSSIBLE EXTENDED STAY, R/S PER PACO 05/03 [facility] Special Needs TF, REQ 1230 START, EST 1HR, POSSIBLE EXTENDED STAY [place] AN ELECTIVE SUPRAGLOTTIC AIRWAY Routine 12/02/2018 10:53 AM CDT Procedure Note - Jared Esteban Jr. LINE LOCATOR - 12/02/2018 10:53 AM CDT Airway Date/Time: [...] GLUCOSE Routine 12/02/2018 9:15 AM CDT after 01/13/2018 Results Surgical pathology request (12/02/2018 1:17 PM CDT) [facility] DEPARTMENT OF PATHOLOGY AND GENOMIC MEDICINE Surgical pathology See link below [facility] DEPARTMENT OF report for PDF Lab PATHOLOGY AND Report GENOMIC MEDICINE Result status This is Final [facility] DEPARTMENT OF Report for PATHOLOGY AND [id number] GENOMIC MEDICINE Specimen Narrative Performed At [id number] [facility] DEPARTMENT OF PATHOLOGY AND GENOMIC MEDICINE [place] Performing Organization Address [facility] Phone Number [facility] DEPARTMENT OF PATHOLOGY AND [address] [place] [id number] GENOMIC MEDICINE Cytology (non-gynecological) request (12/02/2018 12:54 PM CDT) [facility] DEPARTMENT OF PATHOLOGY AND GENOMIC MEDICINE Cytology See link below [facility] DEPARTMENT OF (non-gynecological) for PDF Lab PATHOLOGY AND report Report GENOMIC MEDICINE Result status This is Final [facility] DEPARTMENT OF Report for PATHOLOGY AND [id number] GENOMIC MEDICINE Specimen Performing Organization Address [facility] Phone Number [facility] DEPARTMENT OF PATHOLOGY AND [address] [place] [id number] GENOMIC MEDICINE POC glucose (12/02/2018 11:37 AM CDT)Only the most recent of2 resultswithin the time period is included. Pathologist [facility] POC glucose 124 (H) 65 - 99 mg/dL [facility] Comment: [facility] Notified RN Meter ID: [id number] Bulb Packer: Edmund Moncada Specimen Performing Organization Address City/State/Zipcode Phone Number [facility] DEPARTMENT OF PATHOLOGY AND [address] [place] [address] GENOMIC MEDICINE [facility] [address] [place] [address] [place] Pyelogram Retrograde (12/02/2018 11:25 AM CDT) [...] provider for procedure details. Performing Organization Address City/[facility]/Zipcode Phone Number [facility] [address] [place] [address] Calculi analysis with photo (12/02/2018 11:09 AM [...] REF LAB analysis and photo Comment: Access [facility] Enhanced Report using either link below: -Direct access: [email or web address] -Enter Username, Password: [email or web address] Username: [email or web address] Password: [email or web address] Performed by [facility], [address] [place] [address] [email or web address], Walker Larkin MD - Lab. Director Specimen Serum Narrative Performed At [id number] [facility]ORAT[facility] [place] Performing Organization Address City/State/Zipcode Phone Number [facility] [address] [place] [address] [facility] [address] [place] [address] after 01/13/2018 Advance Directives Patient has advance care planning documents on file. For more information, please contact:Jose Miguel Garces[address] [place] [address]
--- OUTSIDE RECORDS SUMMARY | 2019-01-14 11:47 | XMS REPORT | Clinical Summary ---
:1945 Author Organization [facility] Address [address] [place] [address] Care Team Providers Name Role Phone Pcp, No Primary Care Provider Unavailable Randy Tapia Unavailable Allergies Active Allergy Reactions Severity Noted Date Comments Cephalosporins 12/08/2018 Sulfa (Sulfonamide Antibiotics) 12/08/2018 Tetanus Vaccines And Toxoid Anaphylaxis High 12/15/2018 Medications Medication Sig Dispensed Refills Start Date End Date Status umeclidinium 62.5 Inhalers by 0 Active (INCRUSE ELLIPTA) inhal. via small 62.5 vol.nebulizer route mcg/actuation daily. DsDv powder for inhalation metFORMIN Take 500 mg by 0 Active (GLUCOPHAGE) 500 mouth 2 (two) times MG tablet daily. tamsulosin Take 0.4 mg by 0 Active (FLOMAX) 0.4 mg mouth daily. Cap 24 hr capsule theophylline Take 300 mg by 0 Active (THEODUR) 300 MG mouth 2 (two) times 12 hr tablet daily. traMADol (ULTRAM) Take 50 mg by mouth 0 09/29/2015 Active 50 mg tablet as needed. amiodarone Take 1 tablet (200 30 tablet 0 01/01/2019 01/01/20 Active (PACERONE) 200 MG mg total) by mouth 20 tablet daily. aspirin 81 MG Take 1 tablet (81 0 01/01/2019 01/01/20 Active chewable tablet mg total) by mouth 20 daily. guaiFENesin Take 1 tablet (600 60 tablet 0 12/31/2018 12/31/19 Active (MUCINEX) 600 mg mg total) by mouth 20 12 hr tablet 2 (two) times daily. losartan (COZAAR) Take 0.5 tablets 30 tablet 0 01/01/2019 01/01/20 Active 25 MG tablet (12.5 mg total) by 20 mouth daily. magnesium oxide Take 1 tablet (400 0 01/01/2019 01/01/20 Active (MAG-OX) 400 mg mg total) by mouth 20 (241.3 mg daily. magnesium) tablet metoprolol Take 0.5 tablets 30 tablet 1 12/31/2018 12/31/19 Active (LOPRESSOR) 25 MG (12.5 mg total) by 20 tablet mouth 2 (two) times daily. zinc Apply to affected 170 g 0 12/31/2018 Active oxide-petrolatum area twice daily (CRITIC-AID) until buttock 20-51 % Pste wounds healed. topical paste bumetanide Take 1 tablet (1 mg 60 tablet 1 12/31/2018 12/31/19 Active (BUMEX) 1 MG total) by mouth 2 20 tablet (two) times daily. atorvastatin Take 1 tablet (40 30 tablet 1 12/31/2018 Active (LIPITOR) 40 MG mg total) by mouth tablet daily. insulin glargine Inject 20 Units 0 12/31/2018 Active (LANTUS SOLOSTAR subcutaneously U-100 INSULIN) daily Hold off on 100 unit/mL (3 restarting for now. mL) InPn Check your sugars at home. If sugars persistently high, resume.. fluticasone Inhale 2 puffs by 2 Inhaler 1 01/01/2019 Active propionate mouth via inhaler 2 (FLOVENT DISKUS) (two) times daily. 50 mcg/actuation diskus inhaler ipratropium-albut Take 3 mLs by 0 01/01/2019 12/27/19 Active esperanza (DUO-NEB) nebulization every 20 0.5 mg-3 mg(2.5 4 (four) hours as mg base)/3 mL needed for Wheezing nebulizer or Shortness of solution Breath for up to 360 days. albuterol-ipratro Inhale 2 puffs by 2 Inhaler 1 01/01/2019 Active pium (COMBIVENT mouth via inhaler RESPIMAT) 20-100 every 4 (four) mcg/actuation hours as needed for Mist inhaler Wheezing. HYDROcodone-aceta Take 1 tablet by 30 tablet 0 01/01/2019 Active minophen (NORCO mouth every 6 (six) 5-325) 5-325 mg hours as needed. per tablet Max Daily Amount: 4 tablets clopidogrel Take 1 tablet (75 30 tablet 1 01/02/2019 01/02/20 Active (PLAVIX) 75 mg mg total) by mouth 20 tablet daily. traMADol (ULTRAM) Take by mouth every 0 12/02/2018 01/01/20 Discontinued 50 mg tablet evening. 19 amLODIPine Take 10 mg by mouth 0 01/01/20 Discontinued (NORVASC) 10 MG daily. 19 tablet aspirin 0.1 mg Take 80 mg by 0 01/01/20 Discontinued mouth. 19 atorvastatin Take 10 mg by 0 01/01/20 Discontinued (LIPITOR) 10 MG mouth. 19 tablet theophylline 150 Take 300 mg by 0 12/10/19 Discontinued MG halftab half mouth 2 (two) times 19 tablet daily. valsartan Take 160 mg by 0 01/02/20 Discontinued (DIOVAN) 160 MG mouth daily. 19 tablet insulin glargine Inject 20 Units 0 01/01/20 Discontinued (LANTUS SOLOSTAR subcutaneously 19 U-100 INSULIN) daily. 100 unit/mL (3 mL) InPn fluticasone Inhale 200 mg by 0 01/02/20 Discontinued furoate-vilantero mouth via inhaler 19 l (BREO ELLIPTA) daily. 200-25 mcg/dose DsDv irbesartan Take 150 mg by 0 01/02/20 Discontinued (AVAPRO) 150 MG mouth daily. 19 tablet albuterol HFA Inhale 90 mcg by 0 01/02/20 Discontinued (PROAIR HFA) 90 mouth via inhaler 19 mcg/actuation daily. inhaler albuterol HFA Inhale 2 puffs by 0 01/02/20 Discontinued (PROVENTIL HFA) mouth via inhaler 19 90 mcg/actuation as needed. inhaler Active Problems Problem Noted Date S/P CABG x [address] Cavanaugh on 12/1512/17/2018 COPD exacerbation 12/09/2018 NSTEMI (non-ST elevated myocardial infarction) 12/09/2018 Acute on chronic systolic (congestive) heart failure 12/09/2018 PVD (peripheral vascular disease) 12/09/2018 Acute and chronic respiratory failure with hypoxia 12/08/2018 CAD (coronary artery disease) CHF (congestive heart failure) Ischemic cardiomyopathy Overview: EF < 20% Type 2 diabetes mellitus BPH (benign prostatic hyperplasia) Acute on chronic systolic heart failure Acute respiratory insufficiency Acute blood loss anemia Hyperglycemia Chronic obstructive pulmonary disease, unspecified COPD type Atrial fibrillation with RVR Paroxysmal atrial fibrillation Encounters Date Type Specialty Care Team Description 12/25/2018 Outside Orders Radiology Kelle Ayala 12/15/2018 Anesthesia Event Elieser Mai MD 12/15/2018 Surgery Randy Cavanaugh,AORTO MD Breonna CORONARY HARRISON/SVG 12/11/2018 Anesthesia Event Alfred Cordero MD 12/09/2018 Surgery Rashad Mayen L CATH & PCI 12/09/2018 Travel 12/08/2018 - Hospital Encounter Cardiology Kirit Serna Acute and chronic respiratory failure with hypoxia (HCC); 01/01/2019 MD Santiago Atrial fibrillation with RVR (HCC); Srinath COPD with acute exacerbation (HCC); Maico COPD exacerbation (HCC); MD Leonid Acute on chronic systolic (congestive) heart failure (HCC); Roseanna Monterroso Ischemic cardiomyopathy; MD Kee S/P CABG x 2 Tracy Ferrari MD Deng, Yi, MD Neason, Grey Cantu MD 12/08/2018 Orders Only General Internal Medicine 12/08/2018 Telephone Pulmonology Kirit Serna transfer MD Santiago after 01/13/2018 Family History Medical History Relation Name Comments Atrial fibrillation Brother Aortic aneurysm Father Cancer Father Heart disease Father Atrial fibrillation Mother Relation Name Status Comments Brother Father abdominal cancer Mother Social History Tobacco Use Types Packs/Day Years Used Date Former Smoker Cigarettes Quit: 2005 Sex Assigned at Date Recorded Not on file Job Start Date Occupation Industry Not on file Not on file Not on file Travel History Travel Start Travel End No recent travel history available. Last Filed Vital Signs Vital Sign Reading Time Taken Blood Pressure 103/51 01/01/2019 11:00 AM CDT Pulse 82 01/01/2019 11:52 AM CDT Temperature 36.3 C (97.3 F) 01/01/2019 11:00 AM CDT Respiratory Rate 18 01/01/2019 11:52 AM CDT Oxygen Saturation 93% 01/01/2019 11:52 AM CDT Inhaled Oxygen Concentration 28% 12/22/2018 8:39 AM CDT Weight 89.4 kg (197 lb 1.5 oz) 01/01/2019 8:23 AM CDT Height 180.3 cm (5' 11") 12/08/2018 4:40 PM CDT Body Mass Index 27.49 01/01/2019 8:23 AM CDT Plan of Treatment Not on file Procedures Procedure Name Priority Date/Time Associated Comments Diagnosis RHYTHM STRIP - SCAN 01/05/2019 3:41 PM CDT CARDIAC CATH REPORT - 01/02/2019 10:41 SCAN AM CDT VASCULAR DIAGRAM -SCAN 01/02/2019 10:41 AM CDT REPORT OF PROCEDURE - 01/02/2019 10:41 ENDOSCOPY SCAN AM CDT RHYTHM STRIP - SCAN 01/02/2019 10:40 AM CDT RHYTHM STRIP - SCAN 01/02/2019 10:40 AM CDT POCT-GLUCOSE METER Routine 01/01/2019 11:55 Results for this AM CDT procedure are in the results section. BASIC METABOLIC PANEL Routine 01/01/2019 7:58 Results for this (7) AM CDT procedure are in the results section. MAGNESIUM Routine 01/01/2019 7:58 Results for this AM CDT procedure are in the results section. POCT-GLUCOSE METER Routine 01/01/2019 7:15 Results for this AM CDT procedure are in the results section. B-TYPE NATRIURETIC Routine 01/01/2019 4:51 Results for this FACTOR (BNP) AM CDT procedure are in the results section. POCT-GLUCOSE METER Routine 12/31/2018 8:57 Results for this PM CDT procedure are in the results section. POCT-GLUCOSE METER Routine 12/31/2018 4:54 Results for this PM CDT procedure are in the results section. POCT-GLUCOSE METER Routine 12/31/2018 12:20 Results for this PM CDT procedure are in the results section. POCT-GLUCOSE METER Routine 12/31/2018 8:51 Results for this AM CDT procedure are in the results section. BASIC METABOLIC PANEL Routine 12/31/2018 5:00 Results for this (7) AM CDT procedure are in the results section. MAGNESIUM Routine 12/31/2018 5:00 Results for this AM CDT procedure are in the results section. POCT-GLUCOSE METER Routine 12/30/2018 9:15 Results for this PM CDT procedure are in the results section. POCT-GLUCOSE METER Routine 12/30/2018 5:08 Results for this PM CDT procedure are in the results section. POCT-GLUCOSE METER Routine 12/30/2018 11:59 Results for this AM CDT procedure are in the results section. POCT-GLUCOSE METER Routine 12/30/2018 7:58 Results for this AM CDT procedure are in the results section. CBC (HEMOGRAM ONLY) Routine 12/30/2018 6:06 Results for this AM CDT procedure are in the results section. BASIC METABOLIC PANEL Routine 12/30/2018 6:06 Results for this (7) AM CDT procedure are in the results section. MAGNESIUM Routine 12/30/2018 6:06 Results for this AM CDT procedure are in the results section. POCT-GLUCOSE METER Routine 12/29/2018 9:34 Results for this PM CDT procedure are in the results section. POCT-GLUCOSE METER Routine 12/29/2018 5:02 Results for this PM CDT procedure are in the results section. POCT-GLUCOSE METER Routine 12/29/2018 12:52 Results for this PM CDT procedure are in the results section. BASIC METABOLIC PANEL Routine 12/29/2018 4:13 Results for this (7) AM CDT procedure are in the results section. MAGNESIUM Routine 12/29/2018 4:13 Results for this AM CDT procedure are in the results section. POCT-GLUCOSE METER Routine 12/28/2018 9:18 Results for this PM CDT procedure are in the results section. POCT-GLUCOSE METER Routine 12/28/2018 4:57 Results for this PM CDT procedure are in the results section. POCT-GLUCOSE METER Routine 12/28/2018 12:09 Results for this PM CDT procedure are in the results section. BASIC METABOLIC PANEL Routine 12/28/2018 5:29 Results for this (7) AM CDT procedure are in the results section. MAGNESIUM Routine 12/28/2018 5:29 Results for this AM CDT procedure are in the results section. POCT-GLUCOSE METER Routine 12/27/2018 5:43 Results for this PM CDT procedure are in the results section. POCT-GLUCOSE METER Routine 12/27/2018 12:25 Results for this PM CDT procedure are in the results section. POCT-GLUCOSE METER Routine 12/27/2018 7:35 Results for this AM CDT procedure are in the results section. MAGNESIUM Routine 12/27/2018 5:39 Results for this AM CDT procedure are in the results section. POCT-GLUCOSE METER Routine 12/26/2018 9:49 Results for this PM CDT procedure are in the results section. POCT-GLUCOSE METER Routine 12/26/2018 5:34 Results for this PM CDT procedure are in the results section. XR CHEST 1 VIEW Routine 12/26/2018 4:20 Results for this PORTABLE/BEDSIDE PM CDT procedure are in the results section. POCT-GLUCOSE METER Routine 12/26/2018 11:51 Results for this AM CDT procedure are in the results section. POCT-GLUCOSE METER Routine 12/26/2018 7:19 Results for this AM CDT procedure are in the results section. B-TYPE NATRIURETIC Routine 12/26/2018 5:11 Results for this FACTOR (BNP) AM CDT procedure are in the results section. MAGNESIUM Routine 12/26/2018 5:11 Results for this AM CDT procedure are in the results section. POCT-GLUCOSE METER Routine 12/25/2018 9:10 Results for this PM CDT procedure are in the results section. POCT-GLUCOSE METER Routine 12/25/2018 4:59 Results for this PM CDT procedure are in the results section. POCT-GLUCOSE METER Routine 12/25/2018 11:57 Results for this AM CDT procedure are in the results section. XR CHEST 1 VIEW ELÍAS 12/25/2018 10:20 Results for this PORTABLE/BEDSIDE AM CDT procedure are in the results section. POCT-GLUCOSE METER Routine 12/25/2018 7:23 Results for this AM CDT procedure are in the results section. CBC W/PLT COUNT & AUTO Routine 12/25/2018 2:35 Results for this DIFFERENTIAL AM CDT procedure are in the results section. APTT Routine 12/25/2018 2:35 Results for this AM CDT procedure are in the results section. CALCIUM, IONIZED Routine 12/25/2018 2:35 Results for this AM CDT procedure are in the results section. CBC W/PLT COUNT & AUTO Routine 12/25/2018 2:35 Results for this DIFFERENTIAL AM CDT procedure are in the results section. BASIC METABOLIC PANEL Routine 12/25/2018 2:35 Results for this (7) AM CDT procedure are in the results section. MAGNESIUM Routine 12/25/2018 2:35 Results for this AM CDT procedure are in the results section. POCT-GLUCOSE METER Routine 12/24/2018 9:50 Results for this PM CDT procedure are in the results section. CALCIUM, IONIZED Routine 12/24/2018 6:42 Results for this PM CDT procedure are in the results section. MAGNESIUM Routine 12/24/2018 6:42 Results for this PM CDT procedure are in the results section. POTASSIUM Routine 12/24/2018 6:42 Results for this PM CDT procedure are in the results section. POCT-GLUCOSE METER Routine 12/24/2018 6:15 Results for this PM CDT procedure are in the results section. XR CHEST 1 VIEW STAT 12/24/2018 4:40 Results for this PORTABLE/BEDSIDE PM CDT procedure are in the results section. POCT-GLUCOSE METER Routine 12/24/2018 11:26 Results for this AM CDT procedure are in the results section. POCT-GLUCOSE METER Routine 12/24/2018 8:04 Results for this AM CDT procedure are in the results section. APTT Routine 12/24/2018 3:58 Results for this AM CDT procedure are in the results section. BASIC METABOLIC PANEL Routine 12/24/2018 3:58 Results for this (7) AM CDT procedure are in the results section. CBC (HEMOGRAM ONLY) Routine 12/24/2018 3:58 Results for this AM CDT procedure are in the results section. PHOSPHORUS Routine 12/24/2018 3:58 Results for this AM CDT procedure are in the results section. MAGNESIUM Routine 12/24/2018 3:58 Results for this AM CDT procedure are in the results section. POCT-GLUCOSE METER Routine 12/23/2018 10:24 Results for this PM CDT procedure are in the results section. SPUTUM CULTURE + GRAM ELÍAS 12/23/2018 10:13 Results for this STAIN PM CDT procedure are in the results section. CALCIUM, IONIZED Routine 12/23/2018 9:02 Results for this PM CDT procedure are in the results section. LACTIC ACID, VENOUS Routine 12/23/2018 7:44 Results for this PM CDT procedure are in the results section. POCT-GLUCOSE METER Routine 12/23/2018 5:29 Results for this PM CDT procedure are in the results section. MAGNESIUM Routine 12/23/2018 5:28 Results for this PM CDT procedure are in the results section. BLOOD CULTURE ELÍAS 12/23/2018 5:27 Results for this PM CDT procedure are in the results section. HEMOGLOBIN AND Routine 12/23/2018 5:26 Results for this HEMATOCRIT PM CDT procedure are in the results section. CBC (HEMOGRAM ONLY) STAT 12/23/2018 5:26 Results for this PM CDT procedure are in the results section. PROCALCITONIN ELÍAS 12/23/2018 5:26 Results for this PM CDT procedure are in the results section. HEPATIC FUNCTION PANEL Routine 12/23/2018 5:25 Results for this PM CDT procedure are in the results section. BASIC METABOLIC PANEL ELÍAS 12/23/2018 5:25 Results for this (7) PM CDT procedure are in the results section. POCT-GLUCOSE METER Routine 12/23/2018 12:05 Results for this PM CDT procedure are in the results section. POCT-GLUCOSE METER Routine 12/23/2018 7:42 Results for this AM CDT procedure are in the results section. XR CHEST 1 VIEW Routine 12/23/2018 5:30 Results for this PORTABLE/BEDSIDE AM CDT procedure are in the results section. BASIC METABOLIC PANEL Routine 12/23/2018 5:05 Results for this (7) AM CDT procedure are in the results section. MAGNESIUM Routine 12/23/2018 5:05 Results for this AM CDT procedure are in the results section. PHOSPHORUS Routine 12/23/2018 5:05 Results for this AM CDT procedure are in the results section. APTT Routine 12/23/2018 4:02 Results for this AM CDT procedure are in the results section. CBC (HEMOGRAM ONLY) Routine 12/23/2018 4:02 Results for this AM CDT procedure are in the results section. POCT-GLUCOSE METER Routine 12/22/2018 9:15 Results for this PM CDT procedure are in the results section. APTT Routine 12/22/2018 7:04 Results for this PM CDT procedure are in the results section. POCT-GLUCOSE METER Routine 12/22/2018 6:15 Results for this PM CDT procedure are in the results section. MAGNESIUM Routine 12/22/2018 3:43 Results for this PM CDT procedure are in the results section. POTASSIUM Routine 12/22/2018 3:43 Results for this PM CDT procedure are in the results section. POCT-GLUCOSE METER Routine 12/22/2018 11:30 Results for this AM CDT procedure are in the results section. POCT-GLUCOSE METER Routine 12/22/2018 7:38 Results for this AM CDT procedure are in the results section. XR CHEST 1 VIEW Routine 12/22/2018 5:33 Results for this PORTABLE/BEDSIDE AM CDT procedure are in the results section. CALCIUM, IONIZED Routine 12/22/2018 3:52 Results for this AM CDT procedure are in the results section. BASIC METABOLIC PANEL Routine 12/22/2018 3:52 Results for this (7) AM CDT procedure are in the results section. MAGNESIUM Routine 12/22/2018 3:52 Results for this AM CDT procedure are in the results section. CBC (HEMOGRAM ONLY) Routine 12/22/2018 3:52 Results for this AM CDT procedure are in the results section. PHOSPHORUS Routine 12/22/2018 3:52 Results for this AM CDT procedure are in the results section. POCT-GLUCOSE METER Routine 12/21/2018 9:54 Results for this PM CDT procedure are in the results section. POCT-GLUCOSE METER Routine 12/21/2018 5:32 Results for this PM CDT procedure are in the results section. PHOSPHORUS Routine 12/21/2018 12:43 Results for this PM CDT procedure are in the results section. CALCIUM, IONIZED Routine 12/21/2018 12:43 Results for this PM CDT procedure are in the results section. MAGNESIUM Routine 12/21/2018 12:43 Results for this PM CDT procedure are in the results section. POTASSIUM Routine 12/21/2018 12:43 Results for this PM CDT procedure are in the results section. POCT-GLUCOSE METER Routine 12/21/2018 11:27 Results for this AM CDT procedure are in the results section. ECG 12-LEAD Routine 12/21/2018 8:55 Results for this AM CDT procedure are in the results section. POCT-GLUCOSE METER Routine 12/21/2018 7:25 Results for this AM CDT procedure are in the results section. XR CHEST 1 VIEW Routine 12/21/2018 6:37 Results for this PORTABLE/BEDSIDE AM CDT procedure are in the results section. CALCIUM, IONIZED Routine 12/21/2018 4:21 Results for this AM CDT procedure are in the results section. BASIC METABOLIC PANEL Routine 12/21/2018 4:21 Results for this (7) AM CDT procedure are in the results section. MAGNESIUM Routine 12/21/2018 4:21 Results for this AM CDT procedure are in the results section. CBC (HEMOGRAM ONLY) Routine 12/21/2018 4:21 Results for this AM CDT procedure are in the results section. PHOSPHORUS Routine 12/21/2018 4:21 Results for this AM CDT procedure are in the results section. POTASSIUM Routine 12/21/2018 12:24 Results for this AM CDT procedure are in the results section. MAGNESIUM Routine 12/21/2018 12:24 Results for this AM CDT procedure are in the results section. POCT-GLUCOSE METER Routine 12/20/2018 9:30 Results for this PM CDT procedure are in the results section. ECHOCARDIOGRAM REPORT - 12/20/2018 9:20 SCAN PM CDT POCT-GLUCOSE METER Routine 12/20/2018 4:51 Results for this PM CDT procedure are in the results section. POTASSIUM Routine 12/20/2018 4:47 Results for this PM CDT procedure are in the results section. MAGNESIUM Routine 12/20/2018 4:47 Results for this PM CDT procedure are in the results section. POCT-GLUCOSE METER Routine 12/20/2018 11:59 Results for this AM CDT procedure are in the results section. POTASSIUM Routine 12/20/2018 10:14 Results for this AM CDT procedure are in the results section. MAGNESIUM Routine 12/20/2018 10:14 Results for this AM CDT procedure are in the results section. POCT-GLUCOSE METER Routine 12/20/2018 7:43 Results for this AM CDT procedure are in the results section. XR CHEST 1 VIEW Routine 12/20/2018 5:41 Results for this PORTABLE/BEDSIDE AM CDT procedure are in the results section. CALCIUM, IONIZED Routine 12/20/2018 3:35 Results for this AM CDT procedure are in the results section. BASIC METABOLIC PANEL Routine 12/20/2018 3:35 Results for this (7) AM CDT procedure are in the results section. MAGNESIUM Routine 12/20/2018 3:35 Results for this AM CDT procedure are in the results section. CBC (HEMOGRAM ONLY) Routine 12/20/2018 3:35 Results for this AM CDT procedure are in the results section. PHOSPHORUS Routine 12/20/2018 3:35 Results for this AM CDT procedure are in the results section. POTASSIUM-STAT LAB STAT 12/20/2018 3:35 Results for this AM CDT procedure are in the results section. CALCIUM, IONIZED STAT 12/19/2018 10:42 Results for this PM CDT procedure are in the results section. MAGNESIUM Timed 12/19/2018 10:41 Results for this PM CDT procedure are in the results section. BASIC METABOLIC PANEL Timed 12/19/2018 10:41 Results for this (7) PM CDT procedure are in the results section. POCT-GLUCOSE METER Routine 12/19/2018 9:40 Results for this PM CDT procedure are in the results section. 2D ECHO W/ DOPPLER STAT 12/19/2018 6:14 Results for this (CW/PW/COLOR) PM CDT procedure are in the results section. POCT-GLUCOSE METER Routine 12/19/2018 5:59 Results for this PM CDT procedure are in the results section. POTASSIUM Routine 12/19/2018 2:48 Results for this PM CDT procedure are in the results section. MAGNESIUM Routine 12/19/2018 2:48 Results for this PM CDT procedure are in the results section. POCT-GLUCOSE METER Routine 12/19/2018 12:19 Results for this PM CDT procedure are in the results section. POCT-GLUCOSE METER Routine 12/19/2018 8:10 Results for this AM CDT procedure are in the results section. XR CHEST 1 VIEW Routine 12/19/2018 4:16 Results for this PORTABLE/BEDSIDE AM CDT procedure are in the results section. CALCIUM, IONIZED Routine 12/19/2018 3:12 Results for this AM CDT procedure are in the results section. BASIC METABOLIC PANEL Routine 12/19/2018 3:12 Results for this (7) AM CDT procedure are in the results section. MAGNESIUM Routine 12/19/2018 3:12 Results for this AM CDT procedure are in the results section. CBC (HEMOGRAM ONLY) Routine 12/19/2018 3:12 Results for this AM CDT procedure are in the results section. PHOSPHORUS Routine 12/19/2018 3:12 Results for this AM CDT procedure are in the results section. POCT-GLUCOSE METER Routine 12/18/2018 10:28 Results for this PM CDT procedure are in the results section. CALCIUM, IONIZED STAT 12/18/2018 7:56 Results for this PM CDT procedure are in the results section. MAGNESIUM STAT 12/18/2018 7:56 Results for this PM CDT procedure are in the results section. BASIC METABOLIC PANEL STAT 12/18/2018 7:56 Results for this (7) PM CDT procedure are in the results section. POCT-GLUCOSE METER Routine 12/18/2018 5:20 Results for this PM CDT procedure are in the results section. MAGNESIUM Routine 12/18/2018 1:26 Results for this PM CDT procedure are in the results section. POTASSIUM Routine 12/18/2018 1:26 Results for this PM CDT procedure are in the results section. POCT-GLUCOSE METER Routine 12/18/2018 12:25 Results for this PM CDT procedure are in the results section. POCT-GLUCOSE METER Routine 12/18/2018 8:00 Results for this AM CDT procedure are in the results section. XR CHEST 1 VIEW STAT 12/18/2018 7:51 Results for this PORTABLE/BEDSIDE AM CDT procedure are in the results section. BLOOD GAS, ARTERIAL STAT 12/18/2018 7:23 Results for this AM CDT procedure are in the results section. BLOOD GAS, ARTERIAL Routine 12/18/2018 3:05 Results for this AM CDT procedure are in the results section. CALCIUM, IONIZED Routine 12/18/2018 3:03 Results for this AM CDT procedure are in the results section. BASIC METABOLIC PANEL Routine 12/18/2018 3:03 Results for this (7) AM CDT procedure are in the results section. MAGNESIUM Routine 12/18/2018 3:03 Results for this AM CDT procedure are in the results section. CBC (HEMOGRAM ONLY) Routine 12/18/2018 3:03 Results for this AM CDT procedure are in the results section. PHOSPHORUS Routine 12/18/2018 3:03 Results for this AM CDT procedure are in the results section. POCT-GLUCOSE METER Routine 12/17/2018 9:27 Results for this PM CDT procedure are in the results section. BLOOD GAS, ARTERIAL STAT 12/17/2018 5:49 Results for this PM CDT procedure are in the results section. POCT-GLUCOSE METER Routine 12/17/2018 4:35 Results for this PM CDT procedure are in the results section. POCT-GLUCOSE METER Routine 12/17/2018 12:19 Results for this PM CDT procedure are in the results section. PULMONARY FUNCTION - 12/17/2018 8:50 SCAN AM CDT XR CHEST 1 VIEW Routine 12/17/2018 5:15 Results for this PORTABLE/BEDSIDE AM CDT procedure are in the results section. OXYGEN SATURATION, Routine 12/17/2018 3:09 Results for this MEASURED AM CDT procedure are in the results section. CALCIUM, IONIZED Routine 12/17/2018 3:09 Results for this AM CDT procedure are in the results section. BLOOD GAS, ARTERIAL Routine 12/17/2018 3:09 Results for this AM CDT procedure are in the results section. BASIC METABOLIC PANEL Routine 12/17/2018 3:09 Results for this (7) AM CDT procedure are in the results section. MAGNESIUM Routine 12/17/2018 3:09 Results for this AM CDT procedure are in the results section. CBC (HEMOGRAM ONLY) Routine 12/17/2018 3:09 Results for this AM CDT procedure are in the results section. PHOSPHORUS Routine 12/17/2018 3:09 Results for this AM CDT procedure are in the results section. HGB/HCT (H&H) - STAT STAT 12/16/2018 9:37 Results for this LAB PM CDT procedure are in the results section. GLUCOSE-STAT LAB STAT 12/16/2018 9:37 Results for this PM CDT procedure are in the results section. POTASSIUM-STAT LAB STAT 12/16/2018 9:37 Results for this PM CDT procedure are in the results section. SODIUM NA-STAT LAB STAT 12/16/2018 9:37 Results for this PM CDT procedure are in the results section. BLOOD GAS, ARTERIAL STAT 12/16/2018 9:37 Results for this PM CDT procedure are in the results section. MAGNESIUM Routine 12/16/2018 9:37 Results for this PM CDT procedure are in the results section. OXYGEN SATURATION, STAT 12/16/2018 9:37 Results for this MEASURED PM CDT procedure are in the results section. CALCIUM, IONIZED STAT 12/16/2018 9:37 Results for this PM CDT procedure are in the results section. RRL CRITICAL LABS STAT 12/16/2018 9:37 Results for this (ABG,NA,K,H&H,GLUCOSE) PM CDT procedure are in the results section. ECG 12-LEAD Routine 12/16/2018 9:31 PM CDT Procedure Note - Interface, External Ris In - 12/16/2018 9:41 PM CDT Ventricular Rate 137 BPM Atrial Rate 113 BPM QRS Duration 144 ms Q-T Interval 330 ms QTC Calculation(Bazett) 498 ms R [place] -59 degrees T [place] 123 degrees Wide QRS tachycardia Right bundle branch block Left anterior fascicular block Bifascicular block Inferior infarct , age undetermined T wave abnormality, consider lateral ischemia Abnormal ECG When compared with ECG of 13-DEC-2018 21:36, Wide QRS tachycardia has replaced Sinus rhythm Vent. rate has increased BY 45 BPM ECG 12-LEAD Routine 12/16/2018 9:31 PM Results for this CDT procedure are in the results section. POCT-GLUCOSE METER Routine 12/16/2018 6:25 PM Results for this CDT procedure are in the results section. TRANSFUSION SERVICE 12/16/2018 5:54 PM REPORT - SCAN CDT POCT-GLUCOSE METER Routine 12/16/2018 12:24 PM Results for this CDT procedure are in the results section. OXYGEN SATURATION, STAT 12/16/2018 9:36 AM Results for this MEASURED CDT procedure are in the results section. OXYGEN SATURATION, Routine 12/16/2018 7:13 AM Results for this MEASURED CDT procedure are in the results section. LACTIC ACID, ARTERIAL Routine 12/16/2018 7:13 AM Results for this CDT procedure are in the results section. POCT-GLUCOSE METER Routine 12/16/2018 6:25 AM Results for this CDT procedure are in the results section. XR CHEST 1 VIEW Routine 12/16/2018 4:57 AM Results for this PORTABLE/BEDSIDE CDT procedure are in the results section. POCT-GLUCOSE METER Routine 12/16/2018 3:26 AM Results for this CDT procedure are in the results section. LACTIC ACID, ARTERIAL Routine 12/16/2018 3:16 AM Results for this CDT procedure are in the results section. OXYGEN SATURATION, Routine 12/16/2018 3:16 AM Results for this MEASURED CDT procedure are in the results section. BLOOD GAS, ARTERIAL Routine 12/16/2018 3:16 AM Results for this CDT procedure are in the results section. BASIC METABOLIC PANEL Routine 12/16/2018 3:16 AM Results for this (7) CDT procedure are in the results section. MAGNESIUM Routine 12/16/2018 3:16 AM Results for this CDT procedure are in the results section. CBC (HEMOGRAM ONLY) Routine 12/16/2018 3:16 AM Results for this CDT procedure are in the results section. PHOSPHORUS Routine 12/16/2018 3:16 AM Results for this CDT procedure are in the results section. POCT-GLUCOSE METER Routine 12/16/2018 12:49 AM Results for this CDT procedure are in the results section. CBC W/PLT COUNT & Routine 12/15/2018 11:01 PM Results for this AUTO DIFFERENTIAL CDT procedure are in the results section. HGB/HCT (H&H) - STAT STAT 12/15/2018 11:01 PM Results for this LAB CDT procedure are in the results section. GLUCOSE-STAT LAB STAT 12/15/2018 11:01 PM Results for this CDT procedure are in the results section. POTASSIUM-STAT LAB STAT 12/15/2018 11:01 PM Results for this CDT procedure are in the results section. SODIUM NA-STAT LAB STAT 12/15/2018 11:01 PM Results for this CDT procedure are in the results section. BLOOD GAS, ARTERIAL STAT 12/15/2018 11:01 PM Results for this CDT procedure are in the results section. LACTIC ACID, ARTERIAL Routine 12/15/2018 11:01 PM Results for this CDT procedure are in the results section. MAGNESIUM Routine 12/15/2018 11:01 PM Results for this CDT procedure are in the results section. OXYGEN SATURATION, STAT 12/15/2018 11:01 PM Results for this MEASURED CDT procedure are in the results section. CALCIUM, IONIZED STAT 12/15/2018 11:01 PM Results for this CDT procedure are in the results section. RRL CRITICAL LABS STAT 12/15/2018 11:01 PM Results for this (ABG,NA,K,H&H,GLUCOSE CDT procedure are in ) the results section. CBC W/PLT COUNT & Routine 12/15/2018 11:01 PM Results for this AUTO DIFFERENTIAL CDT procedure are in the results section. BASIC METABOLIC PANEL Routine 12/15/2018 11:01 PM Results for this (7) CDT procedure are in the results section. POTASSIUM STAT 12/15/2018 11:01 PM Results for this CDT procedure are in the results section. GLUCOSE STAT 12/15/2018 11:01 PM Results for this CDT procedure are in the results section. POCT-GLUCOSE METER Routine 12/15/2018 9:14 PM Results for this CDT procedure are in the results section. PERIPHERAL VASCULAR 12/15/2018 9:10 PM REPORT - SCAN CDT POCT-GLUCOSE METER Routine 12/15/2018 6:06 PM Results for this CDT procedure are in the results section. POCT-GLUCOSE METER Routine 12/15/2018 5:04 PM Results for this CDT procedure are in the results section. POCT-GLUCOSE METER Routine 12/15/2018 3:14 PM Results for this CDT procedure are in the results section. PREPARE RBC Routine 12/15/2018 2:33 PM Results for this CDT procedure are in the results section. XR CHEST 1 VIEW STAT 12/15/2018 2:31 PM Results for this PORTABLE/BEDSIDE CDT procedure are in the results section. (CELLAVISION MANUAL Routine 12/15/2018 2:05 PM Results for this DIFF) CDT procedure are in the results section. CBC W/PLT COUNT & Routine 12/15/2018 2:05 PM Results for this AUTO DIFFERENTIAL CDT procedure are in the results section. HGB/HCT (H&H) - STAT Routine 12/15/2018 2:05 PM Results for this LAB CDT procedure are in the results section. GLUCOSE-STAT LAB Routine 12/15/2018 2:05 PM Results for this CDT procedure are in the results section. POTASSIUM-STAT LAB Routine 12/15/2018 2:05 PM Results for this CDT procedure are in the results section. SODIUM NA-STAT LAB Routine 12/15/2018 2:05 PM Results for this CDT procedure are in the results section. BLOOD GAS, ARTERIAL Routine 12/15/2018 2:05 PM Results for this CDT procedure are in the results section. OXYGEN SATURATION, Routine 12/15/2018 2:05 PM Results for this MEASURED CDT procedure are in the results section. RRL CRITICAL LABS Routine 12/15/2018 2:05 PM Results for this (ABG,NA,K,H&H,GLUCOSE CDT procedure are in ) the results section. LACTIC ACID, ARTERIAL Routine 12/15/2018 2:05 PM Results for this CDT procedure are in the results section. MAGNESIUM Routine 12/15/2018 2:05 PM Results for this CDT procedure are in the results section. BASIC METABOLIC PANEL Routine 12/15/2018 2:05 PM Results for this (7) CDT procedure are in the results section. CBC W/PLT COUNT & Routine 12/15/2018 2:05 PM Results for this AUTO DIFFERENTIAL CDT procedure are in the results section. POCT-ACT Routine 12/15/2018 11:54 AM Results for this CDT procedure are in the results section. HGB/HCT (H&H) - STAT STAT 12/15/2018 11:49 AM Results for this LAB CDT procedure are in the results section. GLUCOSE-STAT LAB STAT 12/15/2018 11:49 AM Results for this CDT procedure are in the results section. POTASSIUM-STAT LAB STAT 12/15/2018 11:49 AM Results for this CDT procedure are in the results section. SODIUM NA-STAT LAB STAT 12/15/2018 11:49 AM Results for this CDT procedure are in the results section. BLOOD GAS, ARTERIAL STAT 12/15/2018 11:49 AM Results for this CDT procedure are in the results section. PLATELET COUNT STAT 12/15/2018 11:49 AM Results for this CDT procedure are in the results section. FIBRINOGEN STAT 12/15/2018 11:49 AM Results for this CDT procedure are in the results section. APTT STAT 12/15/2018 11:49 AM Results for this CDT procedure are in the results section. PROTHROMBIN TIME/INR STAT 12/15/2018 11:49 AM Results for this CDT procedure are in the results section. CALCIUM, IONIZED STAT 12/15/2018 11:49 AM Results for this CDT procedure are in the results section. RRL CRITICAL LABS STAT 12/15/2018 11:49 AM Results for this (ABG,NA,K,H&H,GLUCOSE CDT procedure are in ) the results section. POCT-ACT Routine 12/15/2018 11:17 AM Results for this CDT procedure are in the results section. HGB/HCT (H&H) - STAT STAT 12/15/2018 11:12 AM Results for this LAB CDT procedure are in the results section. GLUCOSE-STAT LAB STAT 12/15/2018 11:12 AM Results for this CDT procedure are in the results section. POTASSIUM-STAT LAB STAT 12/15/2018 11:12 AM Results for this CDT procedure are in the results section. SODIUM NA-STAT LAB STAT 12/15/2018 11:12 AM Results for this CDT procedure are in the results section. BLOOD GAS, ARTERIAL STAT 12/15/2018 11:12 AM Results for this CDT procedure are in the results section. RRL CRITICAL LABS STAT 12/15/2018 11:12 AM Results for this (ABG,NA,K,H&H,GLUCOSE CDT procedure are in ) the results section. POCT-ACT Routine 12/15/2018 11:01 AM Results for this CDT procedure are in the results section. HGB/HCT (H&H) - STAT STAT 12/15/2018 10:52 AM Results for this LAB CDT procedure are in the results section. GLUCOSE-STAT LAB STAT 12/15/2018 10:52 AM Results for this CDT procedure are in the results section. POTASSIUM-STAT LAB STAT 12/15/2018 10:52 AM Results for this CDT procedure are in the results section. SODIUM NA-STAT LAB STAT 12/15/2018 10:52 AM Results for this CDT procedure are in the results section. BLOOD GAS, ARTERIAL STAT 12/15/2018 10:52 AM Results for this CDT procedure are in the results section. RRL CRITICAL LABS STAT 12/15/2018 10:52 AM Results for this (ABG,NA,K,H&H,GLUCOSE CDT procedure are in ) the results section. POCT-ACT Routine 12/15/2018 10:30 AM Results for this CDT procedure are in the results section. HGB/HCT (H&H) - STAT STAT 12/15/2018 10:27 AM Results for this LAB CDT procedure are in the results section. GLUCOSE-STAT LAB STAT 12/15/2018 10:27 AM Results for this CDT procedure are in the results section. POTASSIUM-STAT LAB STAT 12/15/2018 10:27 AM Results for this CDT procedure are in the results section. SODIUM NA-STAT LAB STAT 12/15/2018 10:27 AM Results for this CDT procedure are in the results section. BLOOD GAS, ARTERIAL STAT 12/15/2018 10:27 AM Results for this CDT procedure are in the results section. RRL CRITICAL LABS STAT 12/15/2018 10:27 AM Results for this (ABG,NA,K,H&H,GLUCOSE CDT procedure are in ) the results section. POCT-ACT Routine 12/15/2018 10:10 AM Results for this CDT procedure are in the results section. ANESTHESIA WAYNE Routine 12/15/2018 9:13 AM Results for this CDT procedure are in the results section. HGB/HCT (H&H) - STAT STAT 12/15/2018 8:48 AM Results for this LAB CDT procedure are in the results section. GLUCOSE-STAT LAB STAT 12/15/2018 8:48 AM Results for this CDT procedure are in the results section. POTASSIUM-STAT LAB STAT 12/15/2018 8:48 AM Results for this CDT procedure are in the results section. SODIUM NA-STAT LAB STAT 12/15/2018 8:48 AM Results for this CDT procedure are in the results section. BLOOD GAS, ARTERIAL STAT 12/15/2018 8:48 AM Results for this CDT procedure are in the results section. CALCIUM, IONIZED STAT 12/15/2018 8:48 AM Results for this CDT procedure are in the results section. RRL CRITICAL LABS STAT 12/15/2018 8:48 AM Results for this (ABG,NA,K,H&H,GLUCOSE CDT procedure are in ) the results section. 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, unspecified vessel or lesion type, unspecified whether [place] or transplanted heart (HCC) Special Needs (ICU BED NEEDED) POCT-GLUCOSE METER Routine 12/15/2018 5:22 AM CDT CAROTID DOPPLER BILATERAL Routine 12/15/2018 5:21 AM CDT ABORH, MANUAL STAT 12/15/2018 1:32 AM CDT APTT Routine 12/15/2018 1:32 AM CDT CBC (HEMOGRAM ONLY) Routine 12/15/2018 1:12 AM CDT TYPE AND SCREEN, AUTOMATED Routine 12/15/2018 1:11 AM CDT BASIC METABOLIC PANEL (7) Routine 12/15/2018 1:11 AM CDT MAGNESIUM Routine 12/15/2018 1:11 AM CDT PHOSPHORUS Routine 12/15/2018 1:11 AM CDT POCT-GLUCOSE METER Routine 12/14/2018 8:29 PM CDT POCT-GLUCOSE METER Routine 12/14/2018 5:37 PM CDT XR CHEST 1 VIEW Routine 12/14/2018 12:40 PM CDT Results for this PORTABLE/BEDSIDE procedure are in the results section. POCT-GLUCOSE METER Routine 12/14/2018 11:35 AM CDT POCT-GLUCOSE METER Routine 12/14/2018 8:11 AM CDT APTT Routine 12/14/2018 5:45 AM CDT BASIC METABOLIC PANEL (7) Routine 12/14/2018 5:45 AM CDT MAGNESIUM Routine 12/14/2018 5:45 AM CDT CBC (HEMOGRAM ONLY) Routine 12/14/2018 5:45 AM CDT PHOSPHORUS Routine 12/14/2018 5:45 AM CDT APTT Routine 12/13/2018 11:47 PM CDT ECG 12-LEAD Routine 12/13/2018 9:36 PM CDT Procedure Note - Interface, External Ris In - 12/13/2018 9:36 PM CDT Ventricular Rate 92 BPM Atrial Rate 92 BPM P-R Interval 168 ms QRS Duration 138 ms Q-T Interval 404 ms QTC Calculation(Bazett) 499 ms P [place] 80 degrees R [place] -75 degrees T [place] 88 degrees Sinus rhythm with Premature supraventricular complexes and with occasional Premature ventricular complexes Left axis deviation Right bundle branch block Abnormal ECG When compared with ECG of 12-DEC-2018 07:52, Premature ventricular complexes are now Present Premature supraventricular complexes are now Present QT has shortened ECG 12-LEAD STAT 12/13/2018 9:36 PM CDT POCT-GLUCOSE METER Routine 12/13/2018 9:29 PM CDT APTT Routine 12/13/2018 4:06 PM CDT POCT-GLUCOSE METER Routine 12/13/2018 4:01 PM CDT APTT Routine 12/13/2018 8:46 AM CDT POCT-GLUCOSE METER Routine 12/13/2018 8:08 AM CDT BASIC METABOLIC PANEL (7) Routine 12/13/2018 3:46 AM CDT MAGNESIUM Routine 12/13/2018 3:46 AM CDT CBC (HEMOGRAM ONLY) Routine 12/13/2018 3:46 AM CDT PHOSPHORUS Routine 12/13/2018 3:46 AM CDT POCT-GLUCOSE METER Routine 12/13/2018 1:27 AM CDT APTT Routine 12/13/2018 12:12 AM CDT POCT-GLUCOSE METER Routine 12/13/2018 12:03 AM CDT BASIC METABOLIC PANEL (7) Routine 12/12/2018 8:39 PM CDT SPUTUM CULTURE + GRAM Routine 12/12/2018 6:13 PM CDT Results for this STAIN procedure are in the results section. APTT Routine 12/12/2018 5:15 PM CDT POCT-GLUCOSE METER Routine 12/12/2018 4:29 PM CDT APTT Routine 12/12/2018 9:59 AM CDT BASIC METABOLIC PANEL (7) Routine 12/12/2018 8:13 AM CDT ECG 12-LEAD Routine 12/12/2018 7:52 AM CDT Procedure Note - Interface, External Ris In - 12/12/2018 7:57 AM CDT Ventricular Rate 101 BPM Atrial Rate 101 BPM P-R Interval 154 ms QRS Duration 152 ms Q-T Interval 424 ms QTC Calculation(Bazett) 549 ms P [place] 83 degrees R [place] -75 degrees T [place] 89 degrees Sinus tachycardia Left axis deviation Right bundle branch block Abnormal ECG ECG 12-LEAD Routine 12/12/2018 7:52 AM CDT POCT-GLUCOSE METER Routine 12/12/2018 7:22 AM CDT APTT Routine 12/12/2018 2:42 AM CDT B-TYPE NATRIURETIC FACTOR Routine 12/12/2018 2:41 AM CDT Results for this (BNP) procedure are in the results section. MAGNESIUM Routine 12/12/2018 2:41 AM CDT CBC (HEMOGRAM ONLY) Routine 12/12/2018 2:41 AM CDT PHOSPHORUS Routine 12/12/2018 2:41 AM CDT POCT-GLUCOSE METER Routine 12/11/2018 10:18 PM CDT BASIC METABOLIC PANEL (7) Routine 12/11/2018 8:31 PM CDT APTT Routine 12/11/2018 6:19 PM CDT POCT-GLUCOSE METER Routine 12/11/2018 5:16 PM CDT NM MYOCARDIAL VIABILITY ELÍAS 12/11/2018 5:15 PM CDT Results for this EVALUATION PET procedure are in the results section. POCT-GLUCOSE METER Routine 12/11/2018 3:43 PM CDT POCT-GLUCOSE METER Routine 12/11/2018 2:33 PM CDT POCT-GLUCOSE METER Routine 12/11/2018 12:03 PM CDT BEDSIDE SPIROMETRY STAT 12/11/2018 11:[address] CHEST WITHOUT IV Routine 12/11/2018 11:19 AM CDT Results for this CONTRAST procedure are in the results section. POCT-GLUCOSE METER Routine 12/11/2018 7:29 AM CDT BASIC METABOLIC PANEL (7) Routine 12/11/2018 5:05 AM CDT TROPONIN I Routine 12/11/2018 5:05 AM CDT B-TYPE NATRIURETIC FACTOR Routine 12/11/2018 5:05 AM CDT Results for this (BNP) procedure are in the results section. MAGNESIUM Routine 12/11/2018 5:05 AM CDT CBC (HEMOGRAM ONLY) Routine 12/11/2018 5:05 AM CDT PHOSPHORUS Routine 12/11/2018 5:05 AM CDT PHOSPHORUS STAT 12/11/2018 5:05 AM CDT APTT Routine 12/11/2018 5:05 AM CDT XR CHEST 1 VIEW Routine 12/11/2018 4:18 AM CDT Results for this PORTABLE/BEDSIDE procedure are in the results section. POCT-GLUCOSE METER Routine 12/10/2018 9:55 PM CDT APTT Routine 12/10/2018 9:00 PM CDT BASIC METABOLIC PANEL (7) Routine 12/10/2018 9:00 PM CDT POCT-GLUCOSE METER Routine 12/10/2018 4:27 PM CDT VANCOMYCIN LEVEL, TROUGH Timed 12/10/2018 12:30 PM CDT APTT Routine 12/10/2018 12:29 PM CDT BASIC METABOLIC PANEL (7) Routine 12/10/2018 12:29 PM CDT POCT-GLUCOSE METER Routine 12/10/2018 11:33 AM CDT ECG 12-LEAD Routine 12/10/2018 10:46 AM CDT Procedure Note - Interface, External Ris In - 12/10/2018 10:54 AM CDT Ventricular Rate 101 BPM Atrial Rate 101 BPM P-R Interval 154 ms QRS Duration 154 ms Q-T Interval 394 ms QTC Calculation(Bazett) 510 ms P [place] 80 degrees R [place] -68 degrees T [place] 98 degrees Sinus tachycardia Left axis deviation Right bundle branch block T wave abnormality, consider lateral ischemia Abnormal ECG ECG 12-LEAD Routine 12/10/2018 10:46 AM Results for this CDT procedure are in the results section. POCT-GLUCOSE METER Routine 12/10/2018 8:02 AM Results for this CDT procedure are in the results section. TROPONIN I Routine 12/10/2018 1:59 AM Results for this CDT procedure are in the results section. B-TYPE NATRIURETIC Routine 12/10/2018 1:59 AM Results for this FACTOR (BNP) CDT procedure are in the results section. BASIC METABOLIC PANEL Routine 12/10/2018 1:59 AM Results for this (7) CDT procedure are in the results section. MAGNESIUM Routine 12/10/2018 1:59 AM Results for this CDT procedure are in the results section. LACTIC ACID, VENOUS Routine 12/10/2018 1:59 AM Results for this CDT procedure are in the results section. CBC (HEMOGRAM ONLY) Routine 12/10/2018 1:59 AM Results for this CDT procedure are in the results section. PROCALCITONIN Routine 12/10/2018 1:59 AM Results for this CDT procedure are in the results section. PHOSPHORUS STAT 12/10/2018 1:59 AM Results for this CDT procedure are in the results section. POCT-GLUCOSE METER Routine 12/09/2018 10:29 PM Results for this CDT procedure are in the results section. ECHOCARDIOGRAM REPORT - 12/09/2018 9:02 PM SCAN CDT L CATH & PCI 12/09/2018 8:45 PM NSTEMI, initial CDT episode of care (HCC) POCT-GLUCOSE METER Routine 12/09/2018 5:15 PM Results for this CDT procedure are in the results section. POCT-GLUCOSE METER Routine 12/09/2018 11:34 AM Results for this CDT procedure are in the results section. ECG 12-LEAD Routine 12/09/2018 11:30 AM CDT Procedure Note - Interface, External Ris In - 12/09/2018 11:54 AM CDT Ventricular Rate 112 BPM Atrial Rate 112 BPM P-R Interval 140 ms QRS Duration 136 ms Q-T Interval 350 ms QTC Calculation(Bazett) 477 ms P [place] 73 degrees R [place] -62 degrees T [place] 97 degrees Sinus tachycardia Left axis deviation Right bundle branch block T wave abnormality, consider lateral ischemia Abnormal ECG ECG 12-LEAD Routine 12/09/2018 11:30 AM CDT SPUTUM CULTURE + GRAM STAIN Routine 12/09/2018 11:26 AM CDT BLOOD CULTURE Routine 12/09/2018 10:40 AM CDT APTT Routine 12/09/2018 10:39 AM CDT HEMOGLOBIN A1C Routine 12/09/2018 10:39 AM CDT URINALYSIS W/ REFLEX URINE Routine 12/09/2018 10:39 AM CDT Results for this CULTURE procedure are in the results section. URINE CULTURE Routine 12/09/2018 10:39 AM CDT BLOOD CULTURE Routine 12/09/2018 10:39 AM CDT POCT-GLUCOSE METER Routine 12/09/2018 7:51 AM CDT 2D ECHO W/ DOPPLER ELÍAS 12/09/2018 1:53 AM CDT Results for this (CW/PW/COLOR) procedure are in the results section. B-TYPE NATRIURETIC FACTOR STAT 12/09/2018 1:44 AM CDT Results for this (BNP) procedure are in the results section. CBC W/PLT COUNT & AUTO Routine 12/09/2018 1:43 AM CDT Results for this DIFFERENTIAL procedure are in the results section. APTT Routine 12/09/2018 1:43 AM CDT CBC W/PLT COUNT & AUTO Routine 12/09/2018 1:43 AM CDT Results for this DIFFERENTIAL procedure are in the results section. MAGNESIUM Routine 12/09/2018 1:42 AM CDT PHOSPHORUS STAT 12/09/2018 1:42 AM CDT COMPREHENSIVE METABOLIC STAT 12/09/2018 1:42 AM CDT Results for this PANEL procedure are in the results section. TROPONIN I Routine 12/09/2018 1:42 AM CDT POCT-GLUCOSE METER Routine 12/08/2018 10:20 PM CDT XR CHEST 1 VIEW STAT 12/08/2018 7:55 PM CDT Results for this PORTABLE/BEDSIDE procedure are in the results section. THEOPHYLLINE LEVEL STAT 12/08/2018 6:48 PM CDT APTT Routine 12/08/2018 6:48 PM CDT BLOOD GAS, ARTERIAL STAT 12/08/2018 6:33 PM CDT POCT-GLUCOSE METER Routine 12/08/2018 6:05 PM CDT ECG 12-LEAD Routine 12/08/2018 6:03 PM CDT Procedure Note - Interface, External Ris In - 12/08/2018 6:10 PM CDT Ventricular Rate 134 BPM Atrial Rate 134 BPM P-R Interval 192 ms QRS Duration 134 ms Q-T Interval 406 ms QTC Calculation(Bazett) 606 ms P [place] 31 degrees R [place] -64 degrees T [place] 93 degrees Sinus tachycardia with frequent Premature ventricular complexes Left axis deviation Right bundle branch block Septal infarct , age undetermined T wave abnormality, consider lateral ischemia Abnormal ECG ECG 12-LEAD STAT 12/08/2018 6:03 PM CDT RESPIRATORY PANEL [facility] STAT 12/08/2018 5:57 PM CDT XR CHEST 1 VIEW STAT 12/08/2018 5:55 PM CDT Results for this PORTABLE/BEDSIDE procedure are in the results section. LEGIONELLA URINE ANTIGEN Routine 12/08/2018 5:53 PM CDT STREP PNEUMONIAE ANTIGEN Routine 12/08/2018 5:49 PM CDT CBC W/PLT COUNT & AUTO STAT 12/08/2018 5:46 PM CDT Results for this DIFFERENTIAL procedure are in the results section. BUN AND CREATININE Routine 12/08/2018 5:46 PM CDT LACTIC ACID, VENOUS STAT 12/08/2018 5:46 PM CDT TROPONIN I STAT 12/08/2018 5:46 PM CDT MAGNESIUM STAT 12/08/2018 5:46 PM CDT CBC W/PLT COUNT & AUTO STAT 12/08/2018 5:46 PM CDT Results for this DIFFERENTIAL procedure are in the results section. after 01/13/2018 Results RHYTHM STRIP - SCAN (01/05/2019 3:41 PM CDT)Only the most recent of3 resultswithin the time period is included. Narrative Performed At CARDIAC CATH REPORT - SCAN (01/02/2019 10:41 AM CDT) Narrative Performed At VASCULAR DIAGRAM -SCAN (01/02/2019 10:41 AM CDT) Narrative Performed At EKG-SCANNED (01/02/2019 10:41 AM CDT) Narrative Performed At POC-Glucose meter (01/01/2019 11:55 AM CDT)Only the most recent of95 resultswithin the time period is included. POC-Glucose Meter 165 (H)Comment: TESTED AT 70 - 110 mg/dL [address] [address] Specimen Blood Performing Organization Address City/[facility]/Zipcode Phone Number [address] [address] [place] Magnesium (01/01/2019 7:58 AM CDT)Only the most recent of39 resultswithin the time period is included. Magnesium 2.0 1.6 - 2.6 mg/dL [facility] Specimen Blood Performing Organization Address City/[facility]/Zipcode Phone Number [address] [address] [phone] CENTER Basic Metabolic Panel (01/01/2019 7:58 AM CDT)Only the most recent of30 resultswithin the time period is included. Sodium 142 136 - 145 meq/L [facility] Potassium 4.6 3.5 - 5.1 meq/L [facility] Chloride 102 98 - 107 meq/L [facility] CO2 33 (H) 22 - 29 meq/L [facility] BUN 21 7 - 21 mg/dL [facility] Creatinine 1.30 (H) 0.57 - 1.25 mg/dL [facility] Glucose 126 (H) 70 - 105 mg/dL [facility] Calcium 9.3 8.4 - 10.2 mg/dL [facility] EGFR 54Comment: ESTIMATED GFR IS mL/min/1.73 sq m [facility] NOT ACCURATE CREATININE [facility] CLEARANCE IN PREDICTING GLOMERULAR FILTRATION RATE. ESTIMATED GFR IS NOT APPLICABLE FOR DIALYSIS PATIENTS. Specimen Blood Performing Organization Address City/[facility] Phone Number [address] [address] CENTER B-type Natriuretic Factor (BNP) (01/01/2019 4:51 AM CDT)Only the most recent of6 resultswithin the time period is included. BNP 1,150 (H) 0 - 100 pg/mL [facility] Specimen Blood Performing Organization Address City/[facility] Phone Number [address] [address] [phone] CENTER CBC (Hemogram only) (12/30/2018 6:06 AM CDT)Only the most recent of17 resultswithin the time period is included. WBC 6.6 3.5 - 10.5 K/L [facility] RBC 3.42 (L) 4.63 - 6.08 M/L [facility] Hemoglobin 8.8 (L) 13.7 - 17.5 GM/DL [facility] Hematocrit 29.2 (L) 40.1 - 51.0 % [facility] MCV 85.4 79.0 - 92.2 fL [facility] MCH 25.7 25.7 - 32.2 pg [facility] MCHC 30.1 (L) 32.3 - 36.5 GM/DL [facility] RDW 14.9 (H) 11.6 - 14.4 % [facility] Platelets 233 150 - 450 K/CU MM [facility] MPV 10.6 9.4 - 12.4 fL [facility] nRBC 0 0 - 0 /100 WBC [facility] Specimen Blood Performing Organization Address City/State/Zipcode Phone Number [facility] [address] [place] [address] CENTER XR chest 1 view portable / bedside (12/26/2018 4:20 PM CDT)Only the most recent of16 resultswithin the time period is included. Specimen Narrative Performed At FINAL REPORT [facility] Chest x-ray Clinical History: s/p acb Comparison: December 25, 2018 Views: One AP lordotic Chest x-ray: The cardiac and mediastinal silhouettes are prominent.There is no evidence of a pneumothorax.There is evidence of a small right and possible tiny left pleural effusion.There is no evidence of overt cardiac failure.The visible regional skeleton is intact. There is evidence of right lower lung zone focal parenchymal opacity likely secondary to compressive atelectasis. Sternotomy changes are noted there is nonspecific increase in interstitial markings. Impression: Mild increase in interstitial edema Signed: Esther Pacheco MD Report Verified Date/Time:12/26/2018 16:41:43 Reading Location[facility] Radiology Reading Room Procedure Note Interface, External Ris In - 12/26/2018 4:44 PM CDT FINAL REPORT Chest x-ray Clinical History: s/p acb Comparison: December 25, 2018 Views: One AP lordotic Chest x-ray: The cardiac and mediastinal silhouettes are prominent. There is no evidence of a pneumothorax. There is evidence of a small right and possible tiny left pleural effusion. There is no evidence of overt cardiac failure. The visible regional skeleton is intact. There is evidence of right lower lung zone focal parenchymal opacity likely secondary to compressive atelectasis. Sternotomy changes are noted there is nonspecific increase in interstitial markings. Impression: Mild increase in interstitial edema Signed: Esther Pacheco MD Report Verified Date/Time: 12/26/2018 16:41:43 Reading Location: [facility] Radiology Reading Room Performing Organization Address City/[facility] Phone Number [facility] Calcium, Ionized (12/25/2018 2:35 AM CDT)Only the most recent of16 resultswithin the time period is included. Calcium, Ion 1.11 (L) 1.12 - 1.27 mmol/L [facility] pH, Blood 7.45 [facility] Specimen Blood Performing Organization Address City/[facility]/Zipcode Phone Number [facility] [address] [place] [address] [phone] CENTER CBC with platelet count + automated diff (12/25/2018 2:35 AM CDT)Only the most recent of5 resultswithin the time period is included. WBC 8.0 3.5 - 10.5 K/L [facility] RBC 3.28 (L) 4.63 - 6.08 M/L [facility] Hemoglobin 8.5 (L) 13.7 - 17.5 GM/DL [facility] Hematocrit 27.4 (L) 40.1 - 51.0 % [facility] MCV 83.5 79.0 - 92.2 fL [facility] MCH 25.9 25.7 - 32.2 pg [facility] MCHC 31.0 (L) 32.3 - 36.5 GM/DL [facility] RDW 14.6 (H) 11.6 - 14.4 % [facility] Platelets 267 150 - 450 K/CU MM [facility] MPV 10.9 9.4 - 12.4 fL [facility] nRBC 0 0 - 0 /100 WBC [facility] % Neutros 73 % [facility] % Lymphs 15 % [facility] % Monos 9 % [facility] % Eos 2 % [facility] % Baso 1 % [facility] # Neutros 5.81 (H) 1.78 - 5.38 K/L [facility] # Lymphs 1.20 (L) 1.32 - 3.57 K/L [facility] # Monos 0.69 0.30 - 0.82 K/L [facility] # Eos 0.16 0.04 - 0.54 K/L [facility] # Baso 0.05 0.01 - 0.08 K/L [facility] Immature Granulocytes-Relative 1 0 - 1 % [facility] Specimen Blood Performing Organization Address City/State/Zipcode Phone Number [facility] [address] [place] [address] CENTER aPTT (12/25/2018 2:35 AM CDT)Only the most recent of21 resultswithin the time period is included. PTT 38.2 (H) 22.5 - 36.0 seconds [facility] Specimen Blood Performing Organization Address City/[facility]/Zipcode Phone Number [address] [address] CENTER Potassium (12/24/2018 6:42 PM CDT)Only the most recent of9 resultswithin the time period is included. Potassium 4.5 3.5 - 5.1 meq/L [facility] Specimen Blood Performing Organization Address [facility]code Phone Number [address] [address] [phone] CENTER Phosphorus (12/24/2018 3:58 AM CDT)Only the most recent of18 resultswithin the time period is included. Phosphorus 4.0Comment: Specimen slightly 2.3 - 4.7 mg/dL [facility] hemolyzed [facility] Specimen Blood Performing Organization Address [facility] Cliniccook Phone Number [address] [address] [phone] [place] Sputum Culture + Gram Stain (12/23/2018 10:13 PM CDT)Only the most recent of3 resultswithin the time period is included. Result 4+ Normal respiratory deandra [facility] Gram Stain Result <1+ White blood cells seen [facility] Gram Stain Result 0-5 epithelial cells [facility] Gram Stain Result <1+ yeast [facility] Specimen Sputum - Expectorated Performing Organization Address [facility] Phone Number [address] [address] [phone] [place] Lactic acid, venous (12/23/2018 7:44 PM CDT)Only the most recent of3 resultswithin the time period is included. Lactate, Venous 0.9Comment: Specimen 0.5 - 2.2 mmol/L [facility] slightly hemolyzed [facility] Specimen Blood Performing Organization Address [facility] Phone Number [address] [address] CENTER Blood culture (12/23/2018 5:27 PM CDT)Only the most recent of3 resultswithin the time period is included. Result No growth in 5 days [facility] Specimen Blood Performing Organization Address City/[facility] Phone Number [address] [address] CENTER Procalcitonin (12/23/2018 5:26 PM CDT)Only the most recent of2 resultswithin the time period is included. Procalcitonin <0.05 <0.05 ng/mL [facility] Specimen Blood Narrative Performed At SEPSIS RISK (ng/mL) [facility] Low:0.05-0.50 Intermediate: 0.51-2.00 High: >=2.01 Performing Organization Address [facility]code Phone Number [address] [address] [phone] [place] Hemoglobin and hematocrit (12/23/2018 5:26 PM CDT) Hemoglobin 8.0 (L) 13.7 - 17.5 GM/DL [facility] Hematocrit 25.8 (L) 40.1 - 51.0 % [facility] Specimen Blood Performing Organization Address City/[facility] Phone Number [address] [address] [place] Hepatic function panel (12/23/2018 5:25 PM CDT) Protein, Total 5.9 (L) 6.0 - 8.3 gm/dL [facility] Albumin 3.2 (L) 3.5 - 5.0 g/dL [facility] Total Bilirubin 0.3 0.2 - 1.2 mg/dL [facility] Bilirubin, Direct 0.2 0.1 - 0.5 mg/dL [facility] Alkaline Phosphatase 50 40 - 150 U/L [facility] AST 13 5 - 34 U/L [facility] ALT 24 6 - 55 U/L [facility] Specimen Blood Performing Organization Address [facility] Phone Number [address] [address] CENTER ECG 12 lead (12/21/2018 8:55 AM CDT)Only the most recent of7 resultswithin the time period is included. Specimen Narrative Performed At Ventricular Rate 136 BPM GE MUSE Atrial Rate 136 BPM P-R Interval 134 ms QRS Duration 142 ms Q-T Interval 332 ms QTC Calculation(Bazett) 499 ms P [place] 85 degrees R [place] -71 degrees T [place] 103 degrees Most probablySinus tachycardia Left anterior fascicular block Right bundle branch block Inferior infarct , age undetermined Mild ST elelvation inferior leads + ST depression and T wave inversion in the anterolateral leads: STEMI? aneurysm? Iaschemia? Prolonged QT Abnormal ECG 16 DEC 2018 No significant changes Confirmed by MD GROSS YOCHAI ([id number]) on 12/22/2018 6:28:34 AM Procedure Note Interface, External Ris In - 12/22/2018 6:28 AM CDT Ventricular Rate 136 BPM Atrial Rate 136 BPM P-R Interval 134 ms QRS Duration 142 ms Q-T Interval 332 ms QTC Calculation(Bazett) 499 ms P [place] 85 degrees R [place] -71 degrees T [place] 103 degrees Most probably Sinus tachycardia Left anterior fascicular block Right bundle branch block Inferior infarct , age undetermined Mild ST elelvation inferior leads + ST depression and T wave inversion in the anterolateral leads: STEMI? aneurysm? Iaschemia? Prolonged QT Abnormal ECG 16 DEC 2018 No significant changes Confirmed by MD GROSS YOCHAI ([id number]) on 12/22/2018 6:28:34 AM Performing Organization Address [facility] Phone Number [employer] ECHOCARDIOGRAM REPORT - SCAN (12/20/2018 9:20 PM CDT) Narrative Performed At Potassium-Stat Lab (12/20/2018 3:35 AM CDT)Only the most recent of9 resultswithin the time period is included. Potassium 3.6 3.6 - 5.5 meq/L [facility] Specimen Blood, Arterial Performing Organization Address [facility] Cliniccode Phone Number [facility] [address] [address] CENTER 2D Echo W/Doppler(CW/PW/Color) (12/19/2018 6:14 PM CDT) Ejection Fraction [facility] ECHO HEARTLAB [facility] Specimen Narrative Performed At Transthoracic Echocardiography Report (TTE) [facility] ECHO HEARTLAB [facility] Demographics Patient Name TERESA,Date of Study 12/19/[address] [id number] GenderMale Visit Number [id number] Unknown [id number] Room Number C824 Number Date of Birth1945Referring Physician Alecia Rodriguez Age73 year(s)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 Clinical History RESP FAILURE;CHF;COPD;CAD;PVD;CVA;NSTEMI;DMII;S/P CABG. HGB 9.5 HCT 30.4 % Contrast Medium: Definity. Height: 71 inches Weight: 90.26 kg (199 lbs) BSA: 2.1 m^2 BMI: 27.75 kg/m^2 HR: 95 bpm BP: 93/62 mmHg Summary 1. The following segment(s) appear akinetic: basal to mid inferior and inferolateral The other segments are severely hypokinetic. LVEF by Coelho's method of disk assessment is severely reduced (20-24%) . 2. Estimated peak systolic PA pressure is 35-40 mmHg . Degree of diastolic dysfunction (LAP assessment) is inconclusive due to tachycardia . 3.RV chamber size is normal . Global RV systolic function is depressed Previous Study on echo study done on 12-09-18 LVEF was <20%. EF has slightly improved. Signature Findings Technical Quality: Technically difficult exam. Left Ventricle The left ventricle is chamber size (by vol index) is severely enlarged (male - LVED vol >100ml/m2). No rmal LV wall thickness. Septal motion is ab normal, likely related to prior cardiac surgery . Gl obal LV systolic function severely reduced . LVEF by Coelho's method of disk assessment is severely re duced (20-24%) . The LVEF was measured using Si mpson's bi-plane method of disk . LV endocardium is adequately visualized with IV ultrasound en hancing agent. Degree of diastolic dysfunction (L AP assessment) is inconclusive due to tachycardia . Th e following segment(s) appear akinetic: basal to mi d inferior and inferolateral The other segments ar e severely hypokinetic. Left AtriumLA size is moderately enlarged (42-48 ml/m2) . Right VentricleRV chamber size is normal . Gl obal RV systolic function is depressed . Right Atrium RA cavity size is mildly enlarged . Aortic Valve Mild AoV cusp thickening. Ao V cusp mobility is normal . Mitral Valve Mild mitral annular calcification. Mi ld MV leaflet thickening. Mi ld mitral regurgitation. Tricuspid ValveEstimated peak systolic PA pressure is 35-40 mmHg . Pulmonic Valve PV is not well visualized; function appears normal by Doppler visualized. AortaAortic root size (SInus of Valsalva diameter) is no rmal . PericardiumNo significant pericardial effusion is visualized. IVC/SVC/PA/PV/PleuralPulmonary vein flow is consistent with increased LA P . Th e estimated RA pressure by IVC dynamics 11-15mmHg . Chambers/Structures Left Atrium LA Volume: 97.13 ml LA Area: 26.39 cm^2 LA Vol. Index: 46 ml/m^2 Left Ventricle LVIDd: 6.91 cm LV Septum Diastolic: 0.87 cm LV PW Diastolic: 1 cm LVEDV Coelho's:205.37 ml LVESV Coelho's:159.46 ml LVEF Coelho's: 22.4 %LVEDV I: 98 ml/m^2 LVESVI: 76 ml/m^2 LVOT Diameter: 2.05 cm Right Atrium RA Vol. (Sngl Plane): 72.88 ml Aorta Ao Root S of Emilee.: 3.17 cm Doppler/Quantitative Measurements Mitral Valve MV Peak E-Wave: 1.13 m/sMV Peak A-Wave: 0.93 m/s P1/2t: 37.7 msecE/ A Ratio: 1.21 Peak Gradient: 5.12 mmHg Deceleration Time: 130.1 msec MV Area (PHT): 5.83 cm^2 MV Sanchez. Peak: Tissue Doppler E' Lateral Velocity: 0.06 m/s Aortic Valve Peak Velocity: 1.1 m/s Mean Velocity: 0.8 m/s Peak Gradient: 4.85 mmHg Mean Gradient: 2.88 mmHg AV Area (continuity): 2.36 cm^2 AV VTI: 18.65 cm AV DVI: 0.72 LVOT Peak Velocity: 0.79 m/s Peak Gradient: 2.51 mmHg Mean Velocity: 0.52 m/s Mean Gradient: 1.32 mmHg LVOT Diameter: 2.05 cmLVOT VTI: 13.34 cm LVOT Area: 3.3 cm^2 LVOT SV:44.01 ml LVOT CO: 4.18 l/min LVOT CI: 1.99 l/min/m^2 Tricuspid Valve TR Velocity: 2.51 m/s TR Gradient: 25.23 mmHg Procedure Note Interface, External Ris In - 12/20/2018 5:14 PM CDT Transthoracic Echocardiography Report (TTE) Demographics Patient Name MOORE, Date of Study 12/19/[address] Gender Male Visit Number [id number] Race Unknown Room Number C824 Number Date of 1945 Referring Physician Alecia Rodriguez Age 73 year(s) Department Store General Manager Lidia Desai [employer] Community Service Manager Nery Núñez Interpreting Jaron Evans, Physician MD Angie Mcnally MD Procedure Type of Study TTE procedure:2DECHO W DOPPLER(CW/PW/COLOR) (STAT) Indications:Evaluation of Ventricular function post ACS. Clinical History RESP FAILURE;CHF;COPD;CAD;PVD;CVA;NSTEMI;DMII;S/P CABG. HGB 9.5 HCT 30.4 % Contrast Medium: Definity. Height: 71 inches Weight: 90.26 kg (199 lbs) BSA: 2.1 m^2 BMI: 27.75 kg/m^2 HR: 95 bpm BP: 93/62 mmHg Summary 1. The following segment(s) appear akinetic: basal to mid inferior and inferolateral The other segments are severely hypokinetic. LVEF by Coelho's method of disk assessment is severely reduced (20-24%) . 2. Estimated peak systolic PA pressure is 35-40 mmHg . Degree of diastolic dysfunction (LAP assessment) is inconclusive due to tachycardia . 3.RV chamber size is normal . Global RV systolic function is depressed Previous Study on echo study done on 12-09-18 LVEF was <20%. EF has slightly improved. Signature Findings Technical Quality: Technically difficult exam. Left Ventricle The left ventricle is chamber size (by vol index) is severely enlarged (male - LVED vol >100ml/m2). Normal LV wall thickness. Septal motion is abnormal, likely related to prior cardiac surgery . Global LV systolic function severely reduced . LVEF by Coelho's method of disk assessment is severely reduced (20-24%) . The LVEF was measured using Coelho's bi-plane method of disk . LV endocardium is adequately visualized with IV ultrasound enhancing agent. Degree of diastolic dysfunction (LAP assessment) is inconclusive due to tachycardia . The following segment(s) appear akinetic: basal to mid inferior and inferolateral The other segments are severely hypokinetic. Left Atrium LA size is moderately enlarged (42-48 ml/m2) . Right Ventricle RV chamber size is normal . Global RV systolic function is depressed . Right Atrium RA cavity size is mildly enlarged . Aortic Valve Mild AoV cusp thickening. AoV cusp mobility is normal . Mitral Valve Mild mitral annular calcification. Mild MV leaflet thickening. Mild mitral regurgitation. Tricuspid Valve Estimated peak systolic PA pressure is 35-40 mmHg . Pulmonic Valve PV is not well visualized; function appears normal by Doppler visualized. Aorta Aortic root size (SInus of Valsalva diameter) is normal . Pericardium No significant pericardial effusion is visualized. IVC/SVC/PA/PV/Pleural Pulmonary vein flow is consistent with increased LAP . The estimated RA pressure by IVC dynamics 11-15mmHg . Chambers/Structures Left Atrium LA Volume: 97.13 ml LA Area: 26.39 cm^2 LA Vol. Index: 46 ml/m^2 Left Ventricle LVIDd: 6.91 cm LV Septum Diastolic: 0.87 cm LV PW Diastolic: 1 cm LVEDV Coelho's:205.37 ml LVESV Coelho's:159.46 ml LVEF Coelho's: 22.4 % LVEDVI: 98 ml/m^2 LVESVI: 76 ml/m^2 LVOT Diameter: 2.05 cm Right Atrium RA Vol. (Sngl Plane): 72.88 ml Aorta Ao Root S of Emilee.: 3.17 cm Doppler/Quantitative Measurements Mitral Valve MV Peak E-Wave: 1.13 m/s MV Peak A-Wave: 0.93 m/s P1/2t: 37.7 msec E/A Ratio: 1.21 Peak Gradient: 5.12 mmHg Deceleration Time: 130.1 msec MV Area (PHT): 5.83 cm^2 MV Sanchez. Peak: Tissue Doppler E' Lateral Velocity: 0.06 m/s Aortic Valve Peak Velocity: 1.1 m/s Mean Velocity: 0.8 m/s Peak Gradient: 4.85 mmHg Mean Gradient: 2.88 mmHg AV Area (continuity): 2.36 cm^2 AV VTI: 18.65 cm AV DVI: 0.72 LVOT Peak Velocity: 0.79 m/s Peak Gradient: 2.51 mmHg Mean Velocity: 0.52 m/s Mean Gradient: 1.32 mmHg LVOT Diameter: 2.05 cm LVOT VTI: 13.34 cm LVOT Area: 3.3 cm^2 LVOT SV:44.01 ml LVOT CO: 4.18 l/min LVOT CI: 1.99 l/min/m^2 Tricuspid Valve TR Velocity: 2.51 m/s TR Gradient: 25.23 mmHg Performing Organization Address City/[facility] Phone Number [facility] ECHO HEART[facility] Blood gas, arterial (12/18/2018 7:23 AM CDT)Only the most recent of14 resultswithin the time period is included. pH, Arterial 7.46 (H) 7.35 - 7.45 [facility] pCO2, Arterial 37 35 - 45 mmHg [facility] pO2, Arterial 69 (L) 80 - 90 mmHg [facility] O2 Sat, Arterial 94.8 (L) 96.0 - 97.0 % [facility] HCO3, Arterial 26 21 - 29 mmol/L [facility] Base Excess, Arterial 1.8 -2.0 - 3.0 mmol/L [facility] Patient Temperature 37.0 C [facility] FIO2 40.0 % [facility] Specimen Blood, Arterial Performing Organization Address [facility] Phone Number [address] [address] [place] PULMONARY FUNCTION - SCAN (12/17/2018 8:50 AM CDT) Narrative Performed At Oxygen saturation, measured (12/17/2018 3:09 AM CDT)Only the most recent of7 resultswithin the time period is included. O2 Saturation (Measured) 58.0 % [facility] Specimen Blood Performing Organization Address City/[facility] Phone Number [facility] [address] [place] [phone] CENTER Sodium Na-Stat Lab (12/16/2018 9:37 PM CDT)Only the most recent of8 resultswithin the time period is included. Sodium 135 135 - 148 meq/L [facility] Specimen Blood, Arterial Performing Organization Address [facility] Phone Number [address] [address] [phone] [place] Glucose-Stat Lab (12/16/2018 9:37 PM CDT)Only the most recent of8 resultswithin the time period is included. Glucose 220 (H) 70 - 110 mg/dL [facility] Specimen Blood, Arterial Performing Organization Address [facility] Phone Number [address] [address] [place] HGB/HCT (H&H)-Stat Lab (12/16/2018 9:37 PM CDT)Only the most recent of8 resultswithin the time period is included. Hemoglobin 11.4 (L) 13.0 - 16.8 g/dL [facility] Hematocrit 34.0 (L) 40.0 - 50.0 % [facility] Specimen Blood, Arterial Performing Organization Address [facility] Phone Number [address] [address] [place] TRANSFUSION SERVICE REPORT - SCAN (12/16/2018 5:54 PM CDT) Narrative Performed At Lactic Acid, Arterial (12/16/2018 7:13 AM CDT)Only the most recent of4 resultswithin the time period is included. Lactate, Art 0.9Comment: Specimen 0.5 - 2.2 mmol/L [facility] slightly hemolyzed [facility] Specimen Blood, Arterial Performing Organization Address [facility] Phone Number [address] [address] [place] Glucose-STAT (12/15/2018 11:01 PM CDT) Glucose 131 (H) 70 - 105 mg/dL [facility] Specimen Blood Performing Organization Address City/[facility]/Zipcode Phone Number [facility] [address] [place] [address] CENTER PERIPHERAL VASCULAR REPORT - SCAN (12/15/2018 9:10 PM CDT) Narrative Performed At Prepare RBC (12/15/2018 2:33 PM CDT) CROSSMATCH COMPATIBLE SAFETRACE TX Unit ABO O Pos SAFETRACE TX UNIT NUMBER [id number] SAFETRACE TX Status RETURNED FROM ISSUE SAFETRACE TX Blood Bank Product RED BLOOD CELLS SAFETRACE TX PRODUCT CODE [id number] SAFETRACE TX CROSSMATCH COMPATIBLE SAFETRACE TX Unit ABO O Pos SAFETRACE TX UNIT NUMBER [id number] SAFETRACE TX Status RETURNED FROM ISSUE SAFETRACE TX Blood Bank Product RED BLOOD CELLS SAFETRACE TX PRODUCT CODE [id number] SAFETRACE TX CROSSMATCH COMPATIBLE SAFETRACE TX Unit ABO O Pos SAFETRACE TX UNIT NUMBER [id number] SAFETRACE TX Status RETURNED FROM ISSUE SAFETRACE TX Blood Bank Product RED BLOOD CELLS SAFETRACE TX PRODUCT CODE [id number] SAFETRACE TX CROSSMATCH COMPATIBLE SAFETRACE TX Unit ABO O Pos SAFETRACE TX UNIT NUMBER [id number] SAFETRACE TX Status RETURNED FROM ISSUE SAFETRACE TX Blood Bank Product RED BLOOD CELLS SAFETRACE TX PRODUCT CODE [id number] SAFETRACE TX Performing Organization Address City/[facility]/Zipcode Phone Number SAFETRACE TX Manual Differential (12/15/2018 2:05 PM CDT) % Neutros 93 % [facility] % Lymphs 2 % [facility] % Monos 2 % [facility] % Myelo 1 (H) 0 - 0 % [facility] % Bands 2 0 - 10 % [facility] # Neutros 20.93 (H) 1.78 - 5.38 K/ul [facility] # Lymphs 0.45 (L) 1.32 - 3.57 K/ul [facility] # Monos 0.45 0.30 - 0.82 K/uL [facility] # Myelo 0.23 (H) 0.00 - 0.00 K/uL [facility] # Bands 0.45 0.00 - 0.80 K/uL [facility] Total Counted 100 [facility] WBC Morphology Normal [facility] Platelet Morphology Normal [facility] Anisocytosis 2+ moderate [facility] Microcytes 2+ moderate [facility] Poikilocytes 1+ few [facility] Elliptocytes 1+ few [facility] Artifact Present [facility] Platelet Conc Adequate [facility] Specimen Blood Narrative Performed At Received comment: [facility] User comments: Slide comments: Performing Organization Address City/[facility]/Zipcode Phone Number [address] [address] [place] POC ACTIVATED CLOTTING TIME (12/15/2018 11:54 AM CDT)Only the most recent of5 resultswithin the time period is included. Activated Clotting Time 114Comment: TESTED AT sec [address] [address] Specimen Blood Performing Organization Address City/[facility]/Zipcode Phone Number [facility] [address] [place] [id number] [place] Prothrombin time/INR (12/15/2018 11:49 AM CDT) Protime 17.7 (H) 11.9 - 14.2 seconds [facility] INR 1.5 <=5.9 [facility] Specimen Blood Narrative Performed At Effective 12/03/2018: PT Reference Range [facility] Change New: 11.9-14.2Previous: 11.7-14.7 RECOMMENDED COUMADIN/WARFARIN INR THERAPY RANGES STANDARD DOSE: 2.0-3.0Includes: PROPHYLAXIS for venous thrombosis, systemic embolization; TREATMENT for venous thrombosis and/or pulmonary embolus. HIGH RISK: Target INR is 2.5-3.5 for patients wiht mechanical heart valves. Performing Organization Address [facility] Phone Number [address] [address] [phone] CENTER Fibrinogen (12/15/2018 11:49 AM CDT) Fibrinogen 354 225 - 434 mg/dl [facility] Specimen Blood Performing Organization Address [facility] Phone Number [address] [address] [place] Platelet count (12/15/2018 11:49 AM CDT) Platelets 206 150 - 450 K/CU MM [facility] Specimen Blood Performing Organization Address [facility] Phone Number [address] [address] [phone] CENTER [facility] (12/15/2018 9:13 AM CDT) Narrative Performed At Elieser Mai MD 12/15/2018 11:59 AM [place] Date: 12/15/2018 9:13 AM Sex: Male Location: OR Requesting Physician: Randy Cavanaugh MD Examiner: Elieser Mai MD Indication: ACBIntubatedSedated Patient screened for esoph disease: Yes Insertion: easy Probe Type: multiplane Modalities: 2D, PWD, CFM and CWD Pre Intervention Summary: The patient is a 73yo male with a h/o CAD presenting for ACB. An IABP was placed during the exam, the midesophageal views obtained are with IABP support at 1:1, the transgastric views earlier in the exam are pre-IABP placement. Due to difficulty passing the probe into the deep transgastric position these views were omitted. Aorta: No aneurysm, no dissection, no mobile plaques. An IABP is well-positioned with the tip 1-2cm below the level of the left subclavian. AV: trileaflet morphology, no aortic stenosis, no aortic regurgitation LV: mildly dilated chamber size (LV diastolic volume 117cc), no LVH, severely depressed systolic function (EF 25% by Coelho's biplane), the mid-septum and posterior dash are akinetic, the mid-anterior and lateral dash are hypokinetic, no thrombus MV: normal morphology, trace mitral regurgitation, no mitral stenosis LA: no JUSTIN thrombus (excluded by velocity >40), normal size and function PV: limited visualization RV: Normal sized chamber, normal function, no thrombus TV: normal morphology, trace tricuspid regurgitation RA: no thrombus No PFO by color dopper flow All findings communicated to surgical team. Post Intervention Summary:The patient is now s/p 2v ACB - he remains on an IABP at 1:1 and is now also on epinephrine at 4mcg/min. Aorta: There is no dissection visualized post-bypass. The IABP remains well positioned AV: trileaflet morphology, no aortic stenosis, no aortic regurgitation LV: The LV function has improved and is now 35% measured by Coelho's biplane. The mid-posteroseptum is dyskinetic, the function of the anterior and lateral dash has improved and is now near normal. MV: normal morphology, mild mitral regurgitation, no mitral stenosis LA: no JUSTIN thrombus (excluded by velocity >40), normal size and function PV: limited visualization RV: Normal sized chamber, normal function, no thrombus TV: normal morphology, trace tricuspid regurgitation RA: no thrombus Procedure Note Elieser Mai MD - 12/15/2018 9:13 AM CDT [place] Date: 12/15/2018 9:13 AM Sex: Male Location: OR Requesting Physician: Randy Cavanaugh MD Examiner: Elieser Mai MD Indication: ACB Intubated Sedated Patient screened for esoph disease: Yes Insertion: easy Probe Type: multiplane Modalities: 2D, PWD, CFM and CWD Pre Intervention Summary: The patient is a 73yo male with a h/o CAD presenting for ACB. An IABP was placed during the exam, the midesophageal views obtained are with IABP support at 1:1, the transgastric views earlier in the exam are pre-IABP placement. Due to difficulty passing the probe into the deep transgastric position these views were omitted. Aorta: No aneurysm, no dissection, no mobile plaques. An IABP is well- positioned with the tip 1-2cm below the level of the left subclavian. AV: trileaflet morphology, no aortic stenosis, no aortic regurgitation LV: mildly dilated chamber size (LV diastolic volume 117cc), no LVH, severely depressed systolic function (EF 25% by Coelho's biplane), the mid-septum and posterior dash are akinetic, the mid-anterior and lateral dash are hypokinetic , no thrombus MV: normal morphology, trace mitral regurgitation, no mitral stenosis LA: no JUSTIN thrombus (excluded by velocity >40), normal size and function PV: limited visualization RV: Normal sized chamber, normal function, no thrombus TV: normal morphology, trace tricuspid regurgitation RA: no thrombus No PFO by color dopper flow All findings communicated to surgical team. Post Intervention Summary: The patient is now s/p 2v ACB - he remains on an IABP at 1:1 and is now also on epinephrine at 4mcg/min. Aorta: There is no dissection visualized post-bypass. The IABP remains well positioned AV: trileaflet morphology, no aortic stenosis, no aortic regurgitation LV: The LV function has improved and is now 35% measured by Coelho's biplane. The mid-posteroseptum is dyskinetic, the function of the anterior and lateral dash has improved and is now near normal. MV: normal morphology, mild mitral regurgitation, no mitral stenosis LA: no JUSTIN thrombus (excluded by velocity >40), normal size and function PV: limited visualization RV: Normal sized chamber, normal function, no thrombus TV: normal morphology, trace tricuspid regurgitation RA: no thrombus Carotid doppler bilateral (12/15/2018 5:21 AM CDT) [facility] ECHO [facility] Specimen Impressions Performed At Right Impression [facility] ECHO HEARTLAB [facility] 1. There is <50% diameter reduction (approximately 34% by 2-D measurement) in the internal carotid artery with a peak velocity of 42.6/12.1 cm/sec and heterogeneous plaque. 2. There is non-occluding plaque in the external carotid artery. 3. There is non-occluding plaque in the common carotid artery. 4. The vertebral artery flow is antegrade and normal. 5. The subclavian artery is within normal limits where visualized. Left Impression 1. There is <50% diameter reduction (approximately 37% by 2-D measurement) in the internal carotid artery with a peak velocity of 61.3/13.0 cm/sec and heterogeneous plaque. 2. There is non-occluding plaque in the external carotid artery. 3. There is non-occluding plaque in the common carotid artery. 4. The vertebral artery flow is antegrade and normal. 5. The subclavian artery is within normal limits where visualized. Conclusions Summary Carotid duplex scanning and color flow imaging were performed bilaterally. The arteries were adequately visualized. The bilateral internal carotid arteries had <50% hemodynamically insignificant stenosis (approximately 34% by 2-D measurement on the right, approximately 37% by 2-D measurement on the left) with heterogeneous plaque. The vertebral artery flow was antegrade and normal bilaterally. The subclavian arteries were patent with normal flow bilaterally where visualized. Signature Velocities are measured in cm/s ; Diameters are measured in cm Carotid Right Measurements + +----+----+-----+ +---- + + !Location !PSV !EDV !Angle!%Stenosis 2D!%Stenosis Doppler!Tortuosity ! + +----+----+-----+ +---- + + !Prox CCA !59.8!10.6!60 !! ! ! + +----+----+-----+ +---- + + !Dist CCA !47.1!6.68!60 !! ! ! + +----+----+-----+ +---- + + !Prox ICA !42.6!12.1!60 !34% !<50% ! ! + +----+----+-----+ +---- + + !Dist ICA !63.3!17!60 !! ! ! + +----+----+-----+ +---- + + !Prox ECA !104 !10!60 !! ! ! + +----+----+-----+ +---- + + !Vertebral!35.4!10.6!60 !! ! ! + +----+----+-----+ +---- + + !Prox Subclavian!144 !!60 !! ! ! + +----+----+-----+ +---- + + - There is antegrade vertebral flow noted on the right side. - Additional Measurements:ICAPSV/CCAPSV 1.34.ICAEDV/CCAEDV 1.6. Carotid Left Measurements + +----+----+-----+ +---- + + !Location !PSV !EDV !Angle!%Stenosis 2D!%Stenosis Doppler!Tortuosity ! + +----+----+-----+ +---- + + !Prox CCA !57.8!7.07!60 !! ! ! + +----+----+-----+ +---- + + !Dist CCA !59.3!7.07!60 !! ! ! + +----+----+-----+ +---- + + !Prox ICA !61.3!13!60 !37% !<50% ! ! + +----+----+-----+ +---- + + !Dist ICA !62.1!20!60 !! ! ! + +----+----+-----+ +---- + + !Prox ECA !80.3!7.04!60 !! ! ! + +----+----+-----+ +---- + + !Vertebral!44!11.8!60 !! ! ! + +----+----+-----+ +---- + + !Prox Subclavian!177 !!60 !! ! ! + +----+----+-----+ +---- + + - There is antegrade vertebral flow noted on the left side. - Additional Measurements:ICAPSV/CCAPSV 1.05.ICAEDV/CCAEDV 2.83. Narrative Performed At LAB - Carotid Duplex Study [facility]CHO [facility]ART[facility] Demographics Patient NameHEATHER MOORE Date of Study 12/15/2018 R Age 73 Visit [id number] GenderMale Date of 1945 Referring Viktoriya Bond,Room Number SCPR Physician [facility] [employer] General Manager Uriel Sullivan Physician Procedure Type of Study: Cerebral: Carotid, CAROTID DOPPLER, BILATERAL. Indications for Study:Pre-op evaluation. Patient Status:Routine. Study Location:Portable. Technical Quality:Adequate visualization. Risk Factors History of Disease + +----+ + !Diagnosis!Date!Comments ! + +----+ + !History/Risk !!PVD, CHF, CAD, WI, COPD, DM, PAD, HTN, HLD, H/o! !Factors: !!Bladder Cancer, LE Arterial Stents ! + +----+ + Procedure Note Interface, External Ris In - 12/15/2018 12:03 PM CDT [facility] LAB - Carotid Duplex Study Demographics Patient Name HEATHER MOORE Date of Study 12/15/2018 R Age 73 Visit Number [id number] Gender Male Accession Number [id number] Date of 1945 Referring Viktoriya Bond, Room Number SCPR Physician [facility] [employer] General Manager Uriel Eid Interpreting Juanita Sullivan, Physician Procedure Type of Study: Cerebral: Carotid, CAROTID DOPPLER, BILATERAL. Indications for Study:Pre-op evaluation. Patient Status:Routine. Study Location:Portable. Technical Quality:Adequate visualization. Risk Factors History of Disease + +----+ + !Diagnosis !Date!Comments ! + +----+ + !History/Risk ! !PVD, CHF, CAD, WI, COPD, DM, PAD, HTN, HLD, H/o ! !Factors: ! !Bladder Cancer, LE Arterial Stents ! + +----+ + Impressions Right Impression 1. There is <50% diameter reduction (approximately 34% by 2-D measurement) in the internal carotid artery with a peak velocity of 42.6/12.1 cm/sec and heterogeneous plaque. 2. There is non-occluding plaque in the external carotid artery. 3. There is non-occluding plaque in the common carotid artery. 4. The vertebral artery flow is antegrade and normal. 5. The subclavian artery is within normal limits where visualized. Left Impression 1. There is <50% diameter reduction (approximately 37% by 2-D measurement) in the internal carotid artery with a peak velocity of 61.3/13.0 cm/sec and heterogeneous plaque. 2. There is non-occluding plaque in the external carotid artery. 3. There is non-occluding plaque in the common carotid artery. 4. The vertebral artery flow is antegrade and normal. 5. The subclavian artery is within normal limits where visualized. Conclusions Summary Carotid duplex scanning and color flow imaging were performed bilaterally. The arteries were adequately visualized. The bilateral internal carotid arteries had <50% hemodynamically insignificant stenosis (approximately 34% by 2-D measurement on the right, approximately 37% by 2-D measurement on the left) with heterogeneous plaque. The vertebral artery flow was antegrade and normal bilaterally. The subclavian arteries were patent with normal flow bilaterally where visualized. Signature Velocities are measured in cm/s ; Diameters are measured in cm Carotid Right Measurements + +----+----+-----+ + + + !Location !PSV !EDV !Angle!%Stenosis 2D!%Stenosis Doppler!Tortuosity ! + +----+----+-----+ + + + !Prox CCA !59.8!10.6!60 ! ! ! ! + +----+----+-----+ + + + !Dist CCA !47.1!6.68!60 ! ! ! ! + +----+----+-----+ + + + !Prox ICA !42.6!12.1!60 !34% !<50% ! ! + +----+----+-----+ + + + !Dist ICA !63.3!17 !60 ! ! ! ! + +----+----+-----+ + + + !Prox ECA !104 !10 !60 ! ! ! ! + +----+----+-----+ + + + !Vertebral !35.4!10.6!60 ! ! ! ! + +----+----+-----+ + + + !Prox Subclavian!144 ! !60 ! ! ! ! + +----+----+-----+ + + + - There is antegrade vertebral flow noted on the right side. - Additional Measurements:ICAPSV/CCAPSV 1.34.ICAEDV/CCAEDV 1.6. Carotid Left Measurements + +----+----+-----+ + + + !Location !PSV !EDV !Angle!%Stenosis 2D!%Stenosis Doppler!Tortuosity ! + +----+----+-----+ + + + !Prox CCA !57.8!7.07!60 ! ! ! ! + +----+----+-----+ + + + !Dist CCA !59.3!7.07!60 ! ! ! ! + +----+----+-----+ + + + !Prox ICA !61.3!13 !60 !37% !<50% ! ! + +----+----+-----+ + + + !Dist ICA !62.1!20 !60 ! ! ! ! + +----+----+-----+ + + + !Prox ECA !80.3!7.04!60 ! ! ! ! + +----+----+-----+ + + + !Vertebral !44 !11.8!60 ! ! ! ! + +----+----+-----+ + + + !Prox Subclavian!177 ! !60 ! ! ! ! + +----+----+-----+ + + + - There is antegrade vertebral flow noted on the left side. - Additional Measurements:ICAPSV/CCAPSV 1.05.ICAEDV/CCAEDV 2.83. Performing Organization Address City/[facility]/Zipcode Phone Number [facility] ECHO HEARTLAB [facility], manual (12/15/2018 1:32 AM CDT) ABO Grouping O [facility] Rh Factor POS [facility] Specimen Blood Performing Organization Address [facility]/Zipcode Phone Number [facility] [address] [place] [address] Type and screen, automated (12/15/2018 1:11 AM CDT) ABO/RH AUTOMATED ([facility]) O POSITIVE [facility] Ab Scrn NEGATIVE [facility] Specimen Blood Performing Organization Address [facility]/Zipcode Phone Number [facility] [address] [place], [place] [phone] NM PET Cardiac Viability (12/11/2018 5:15 PM CDT) Specimen Narrative Performed At FINAL REPORT [facility] PROCEDURE: MYOCARDIAL METABOLISM PET IMAGING with Rest MYOCARDIAL PERFUSION PET IMAGING\\XA9\\ CPT CODE:81789, 22353 INDICATION: CAD, preoperative viability assessment for ACB PROTOCOL:Limited low-dose CT imaging was performed for attenuation correction. 33.2 mCi of Rb-82 chloride was injected iv at rest, and gated PET (positron emission tomography) images were obtained. After appropriate dextrose/insulin administration, 10.8 mCi of F-18 FDG was injected iv at rest; limited low-dose CT imaging was repeated; and PET images were obtained. PERFUSION IMAGING FINDINGS:Study quality is good. Images obtained after Rb-82 injection show mild decrease in activity in the inferoapical and mid inferolateral LV. LV volume appears enlarged. RV volume appears normal. Gated images obtained at rest show severe diffuse decrease in LV contractility. LVEF at rest is 18%. METABOLIC IMAGING FINDINGS:Study quality is good. Images obtained after F-18 FDG injection show mild decrease in activity in the inferior LV. IMPRESSION: 1. Abnormal study.2. Resting imaging was performed for cardiac perfusion and metabolism.3. Abnormal myocardial perfusion. There is a mild severity, medium size, resting perfusion defect in the inferior/inferoapical LV.4. Markedly decreased resting LV function.5. Abnormal cardiac metabolism. There is a mild severity, medium size, defect of glucose metabolism in the inferior LV.6. Combination of perfusion and metabolic images show the LV to be viable. 7. Extracardiac tracer distribution is normal.8. No prior study for comparison. Signed: Clara Bar MD Report Verified Date/Time:12/11/2018 18:10:46 Reading Location: [address] Reading Room Procedure Note Interface, External Ris In - 12/11/2018 6:13 PM CDT FINAL REPORT PROCEDURE: MYOCARDIAL METABOLISM PET IMAGING with Rest MYOCARDIAL PERFUSION PET IMAGING\\XA9\\ CPT CODE: 76014, 03522 INDICATION: CAD, preoperative viability assessment for ACB PROTOCOL: Limited low-dose CT imaging was performed for attenuation correction. 33.2 mCi of Rb-82 chloride was injected iv at rest, and gated PET (positron emission tomography) images were obtained. After appropriate dextrose/insulin administration, 10.8 mCi of F-18 FDG was injected iv at rest; limited low-dose CT imaging was repeated; and PET images were obtained. PERFUSION IMAGING FINDINGS: Study quality is good. Images obtained after Rb-82 injection show mild decrease in activity in the inferoapical and mid inferolateral LV. LV volume appears enlarged. RV volume appears normal. Gated images obtained at rest show severe diffuse decrease in LV contractility. LVEF at rest is 18%. METABOLIC IMAGING FINDINGS: Study quality is good. Images obtained after F-18 FDG injection show mild decrease in activity in the inferior LV. IMPRESSION: 1. Abnormal study. 2. Resting imaging was performed for cardiac perfusion and metabolism. 3. Abnormal myocardial perfusion. There is a mild severity, medium size, resting perfusion defect in the inferior/inferoapical LV. 4. Markedly decreased resting LV function. 5. Abnormal cardiac metabolism. There is a mild severity, medium size, defect of glucose metabolism in the inferior LV. 6. Combination of perfusion and metabolic images show the LV to be viable. 7. Extracardiac tracer distribution is normal. 8. No prior study for comparison. Signed: Clara Bar MD Report Verified Date/Time: 12/11/2018 18:10:46 Reading Location: [address] Reading Room Performing Organization Address City/State/Zipcode Phone Number [facility] bedside spirometry (12/11/2018 11:24 AM CDT) Narrative Performed At Palma Garduno RRT, CANOE INSPECTOR 12/11/2018 11:27 AM [facility] PFT CHARTING REPORT Infection Control/Hand Hygiene procedures followed throughout the encounter with patient: Yes Patient Identification Method: Patient name verified on armband, and Medical record on armband, Is the order complete?: Yes Account ID#: [id number] Patient Name: Heather Moore Birthdate: 1945 Age: 73 y.o.Sex: male Admission Date: 12/08/2018Patient Status: Inpatient Reasons/Symptom for having the Test?: a history/complaint of a dyspnea Type of study/treatment ordered by physician:Spirometry with bronchodilators Lab Results Component Value Date HGB 13.0 (L) 12/11/2018 Ranges: Adult Male 13 - 16.8 g/dlAdult Female 12 - 15 g/dl 6 Minute Walk (read only) 12/11/2018 12/11/2018 12/11/2018 Pulse 107 100 98 SpO2 94 94 98 Study Date: 12/11/2018Study Time: 1012 ASSESSMENT History & Physical Mode of Arrival: Testing was performed at patient bedside Pulse: 98 Resp: 20SPO2: 98 % on 2LPM NC Pain Assessment Pain:None TESTING/THERAPEUTICS Medications ordered or required for procedure: N/A PT EDUCATION/INSTRUCTIONS Barriers to learning: No known barriers to learning. Learning need identified: Yes, Patient/Family/Guradian was informed of the ordered study by the physician Barriers to performing study or treatment: Patient has no known disability to perform the study or treatment. DISCHARGE The study was completed in accordance with the physician's order and patient released from the lab without adverse outcome. without adverse outcome CT chest without IV contrast (12/11/2018 11:19 AM CDT) Specimen Narrative Performed At FINAL REPORT [facility] INDICATION: Hypoxemia and shortness of breath. COMPARISON: Chest radiographs December 11, 2018 and December 08, 2018 TECHNIQUE: Chest CT exam WITHOUT intravenous contrast. The exam was performed according to our department dose-optimization protocol, which includes automated exposure control, adjustments of mA and kV according to patient size. Iterative reconstructions are also sometimes employed. FINDINGS: Superimposed on emphysema is a consolidative or groundglass opacity in the in the posterior segment right upper lobe. In the central right upper lobe a 1 cm nodular opacity is noted. There is a small right pleural effusion. There is thick calcification of the left posterior pleura associated with volume loss and subpleural scarring and mild elevation of the left hemidiaphragm. Superior to the calcified pleural plaque is noncalcified pleural nodularity measuring up to 7 mm in thickness. The heart is normal in size and the pulmonary veins are not engorged. Coronary artery calcification and thoracic aortic plaque with normal size of the thoracic aorta. Main pulmonary artery normal in size. No supraclavicular, mediastinal, or hilar lymphadenopathy. Thyroid gland, esophagus, and upper abdomen unremarkable. No suspicious osseous lesion demonstrated. IMPRESSION: Right upper lobe consolidative or groundglass opacity. Right pleural effusion suggest asymmetric pulmonary edema, though the heart is not enlarged. Pneumonia is also considered. Left posterior calcified pleural plaque, probably representing prior asbestos exposure. Nodular pleural thickening that is noncalcified and may represent pleural tumor (mesothelioma). Follow-up noncontrast chest CT in six months is recommended. Signed: Jarred Obrien MD Report Verified Date/Time:12/11/2018 11:34:47 Reading Location: [facility] Diagnostic Imaging Reading Room - [place] [address] [id number] Procedure Note Interface, External Ris In - 12/11/2018 11:36 AM CDT FINAL REPORT INDICATION: Hypoxemia and shortness of breath. COMPARISON: Chest radiographs December 11, 2018 and December 08, 2018 TECHNIQUE: Chest CT exam WITHOUT intravenous contrast. The exam was performed according to our department dose-optimization protocol, which includes automated exposure control, adjustments of mA and kV according to patient size. Iterative reconstructions are also sometimes employed. FINDINGS: Superimposed on emphysema is a consolidative or groundglass opacity in the in the posterior segment right upper lobe. In the central right upper lobe a 1 cm nodular opacity is noted. There is a small right pleural effusion. There is thick calcification of the left posterior pleura associated with volume loss and subpleural scarring and mild elevation of the left hemidiaphragm. Superior to the calcified pleural plaque is noncalcified pleural nodularity measuring up to 7 mm in thickness. The heart is normal in size and the pulmonary veins are not engorged. Coronary artery calcification and thoracic aortic plaque with normal size of the thoracic aorta. Main pulmonary artery normal in size. No supraclavicular, mediastinal, or hilar lymphadenopathy. Thyroid gland, esophagus, and upper abdomen unremarkable. No suspicious osseous lesion demonstrated. IMPRESSION: Right upper lobe consolidative or groundglass opacity. Right pleural effusion suggest asymmetric pulmonary edema, though the heart is not enlarged. Pneumonia is also considered. Left posterior calcified pleural plaque, probably representing prior asbestos exposure. Nodular pleural thickening that is noncalcified and may represent pleural tumor (mesothelioma). Follow-up noncontrast chest CT in six months is recommended. Signed: Jarred Obrien MD Report Verified Date/Time: 12/11/2018 11:34:47 Reading Location: [facility] Diagnostic Imaging Reading Room - [place] [address] Performing Organization Address City/State/Zipcode Phone Number RIS Troponin I (12/11/2018 5:05 AM CDT)Only the most recent of4 resultswithin the time period is included. Troponin I 1.07 (HH) 0.00 - 0.03 ng/mL [facility] Specimen Blood Narrative Performed At Troponin I (TnI) levels must be interpreted [facility] in the context of the presenting symptoms and the clinical findings. Elevated TnI levels indicate myocardial damage, but are not specific for ischemic heart disease. Elevated TnI levels are seen in patients with other cardiac conditions (including myocarditis and congestive heart failure), and slight TnI elevations occur in patients with other conditions, including sepsis, renal failure, acidosis, acute neurological disease, and persistent tachyarrhythmia. Performing Organization Address City/State/Zipcode Phone Number [address] [phone] [place] Vancomycin level, trough (12/10/2018 12:30 PM CDT) Vancomycin Tr 16.8 10.0 - 20.0 ug/mL [facility] Specimen Blood Performing Organization Address [facility] Phone Number [address] [address] [phone] [place] ECHOCARDIOGRAM REPORT - SCAN (12/09/2018 9:02 PM CDT) Narrative Performed At Urinalysis w/Microscopic + Reflex to Culture (12/09/2018 10:39 AM CDT) Color, UA Yellow [facility] Clarity, UA Clear [facility] Specific [place], UA 1.009 1.001 - 1.035 [facility] pH, UA 5.0 5.0 - 8.0 [facility] Protein, UA 20 mg/dL (A) Negative [facility] Glucose, UA Negative Negative [facility] Ketones, UA Negative Negative [facility] Bilirubin, UA Negative Negative [facility] Blood, UA Moderate (A) Negative [facility] Nitrite, UA Negative Negative [facility] Leukocytes, UA Moderate (A) Negative [facility] Urobilinogen, UA 0.2 0.2 - 1.0 mg/dL [facility] RBC, UA 27 /HPF [facility] WBC, UA 20 /HPF [facility] Mucus Rare [facility] Squam Epithel, UA <1 /HPF [facility] Specimen Source [facility] Specimen Urine Performing Organization Address City/[facility]/[place] [address] [phone] [place] Urine culture (12/09/2018 10:39 AM CDT) Result No growth [facility] Specimen Urine Performing Organization Address [facility] [place] [address] [place] Hemoglobin A1c (12/09/2018 10:39 AM CDT) Hemoglobin A1C 5.7 4.3 - 6.1 % [facility] Specimen Blood Performing Organization Address [facility] [place] [address] [phone] [place] 2D Echo W/Doppler(CW/PW/Color) (12/09/2018 1:53 AM CDT) Ejection Fraction [facility] Specimen Narrative Performed At Transthoracic Echocardiography Report (TTE) [facility] Demographics Patient NameBLANCHARD,Date of Study12/09/[address] Male Visit [id number] Unknown Room [id number] Number Date of 1945Referring Kirit Serna PhysicianBlyuliet Park NP Age 73 year(s)Department Store General Manager Angie Blakely RDCS, RVT Community Service Manager Elicia Rutherford, Interpreting Roly Colon MD Procedure Type of Study TTE procedure:2DECHO W DOPPLER(CW/PW/COLOR) (ELÍAS) Indications:Acute Chest Pain/ Suspected CAD. Clinical History RESP. FAILURE, NEW CHF, COPD, CAD HGB 13.1 HCT 40.1 % Contrast Medium: Definity. Amount - 2 ml Height: 71 inches Weight: 90.26 kg (199 lbs) BSA: 2.1 m^2 BMI: 27.75 kg/m^2 HR: 125 bpm BP: 130/82 mmHg Summary The left ventricle is chamber size (by vol index) is severely enlarged (male - LVED vol >100ml/m2). The left ventricle is chamber size (by vol index) is severely enlarged (male - LVED vol >100ml/m2). No evidence of LV hypertrophy. All of the LV segments are hypokinetic . Global LV systolic function severely reduced . LVEF by Coelho's method of disk assessment is moderately reduced (<20%) . Degree of diastolic dysfunction (LAP assessment) is inconclusive due to arrhythmia . The estimated RA pressure by IVC dynamics 11-15mmHg . Previous Study No prior exam available for comparison. Signature Findings Technical Quality: Technically adequate exam. Rhythm/BPSinus tachycardia during the exam. Left Ventricle The left ventricle is chamber size (by vol index) is severely enlarged (male - LVED vol >100ml/m2). Th e left ventricle is chamber size (by vol index) is severely enlarged (male - LVED vol >100ml/m2). No evidence of LV hypertrophy. All of the LV se gments are hypokinetic . Global LV systolic fu nction severely reduced . LVEF by Coelho's me thod of disk assessment is moderately reduced (< 20%) . Degree of diastolic dysfunction (LAP as sessment) is inconclusive due to arrhythmia . Left AtriumLA size is normal (16-34 ml/m2) . Right VentricleThe right ventricular chamber size and systolic fu nction are within normal limits. Right Atrium RA cavity size is normal . Aortic Valve Mild AoV cusp thickening. Ao V cusp mobility is normal . Mitral Valve Mild MV leaflet thickening. Tr toby mitral regurgitation. AortaAortic root size (SInus of Valsalva diameter) is no rmal . PericardiumNo pericardial effusion is visualized. IVC/SVC/PA/PV/PleuralThe estimated RA pressure by IVC dynamics 11-15mmHg . Th e inferior vena cava size is mildly increased . Th e inferior vena cava is adequately visualized. Chambers/Structures Left Atrium LA Volume: 65.97 ml LA Area: 20.93 cm^2 LA Vol. Index: 31 ml/m^2 Left Ventricle LVIDd: 6.27 cm LV Septum Diastolic: 0.74 cm LV PW Diastolic: 0.64 cm LVEDV Coelho's:227.76 ml LVESV Coelho's:170.02 ml LVEF Coelho's: 25.4 % LVEDVI: 108 ml/m^2 LVESVI: 81 ml/m^2 LVOT Diameter: 2.04 cm Aorta Ao Root S of Emilee.: 3.03 cm Doppler/Quantitative Measurements Aortic Valve Peak Velocity: 1 m/s Mean Velocity: 0.7 m/s Peak Gradient: 4.01 mmHg Mean Gradient: 2.29 mmHg AV Area (continuity): 3.99 cm^2 AV VTI: 16.03 cm AV DVI: 1.22 LVOT Peak Velocity: 1.18 m/s Peak Gradient: 5.59 mmHg Mean Velocity: 0.76 m/s Mean Gradient: 2.65 mmHg LVOT Diameter: 2.04 cmLVOT VTI: 19.57 cm LVOT Area: 3.27 cm^2LVOT SV:63.93 ml LVOT CO: 7.99 l/min LVOT CI: 3.8 l/min/m^2 Procedure Note Interface, External Ris In - 12/09/2018 4:52 PM CDT Transthoracic Echocardiography Report (TTE) Demographics Patient Name MOORE, Date of Study 12/09/[address] Gender Male Visit Number [id number] Race Unknown Room Number [id number] Number Date of 1945 Referring Kirit Serna Physician Omero Park NP Age 73 year(s) Department Store General Manager Angie Blakely [facility], RVT Community Service Manager Elicia Rutherford, Interpreting Jaron Evans [facility] Physician Procedure Type of Study TTE procedure:2DECHO W DOPPLER(CW/PW/COLOR) (ELÍAS) Indications:Acute Chest Pain/ Suspected CAD. Clinical History RESP. FAILURE, NEW CHF, COPD, CAD HGB 13.1 HCT 40.1 % Contrast Medium: Definity. Amount - 2 ml Height: 71 inches Weight: 90.26 kg (199 lbs) BSA: 2.1 m^2 BMI: 27.75 kg/m^2 HR: 125 bpm BP: 130/82 mmHg Summary The left ventricle is chamber size (by vol index) is severely enlarged (male - LVED vol >100ml/m2). The left ventricle is chamber size (by vol index) is severely enlarged (male - LVED vol >100ml/m2). No evidence of LV hypertrophy. All of the LV segments are hypokinetic . Global LV systolic function severely reduced . LVEF by Coelho's method of disk assessment is moderately reduced (<20%) . Degree of diastolic dysfunction (LAP assessment) is inconclusive due to arrhythmia . The estimated RA pressure by IVC dynamics 11-15mmHg . Previous Study No prior exam available for comparison. Signature Findings Technical Quality: Technically adequate exam. Rhythm/BP Sinus tachycardia during the exam. Left Ventricle The left ventricle is chamber size (by vol index) is severely enlarged (male - LVED vol >100ml/m2). The left ventricle is chamber size (by vol index) is severely enlarged (male - LVED vol >100ml/m2). No evidence of LV hypertrophy. All of the LV segments are hypokinetic . Global LV systolic function severely reduced . LVEF by Coelho's method of disk assessment is moderately reduced (<20%) . Degree of diastolic dysfunction (LAP assessment) is inconclusive due to arrhythmia . Left Atrium LA size is normal (16-34 ml/m2) . Right Ventricle The right ventricular chamber size and systolic function are within normal limits. Right Atrium RA cavity size is normal . Aortic Valve Mild AoV cusp thickening. AoV cusp mobility is normal . Mitral Valve Mild MV leaflet thickening. Trace mitral regurgitation. Aorta Aortic root size (SInus of Valsalva diameter) is normal . Pericardium No pericardial effusion is visualized. IVC/SVC/PA/PV/Pleural The estimated RA pressure by IVC dynamics 11-15mmHg . The inferior vena cava size is mildly increased . The inferior vena cava is adequately visualized. Chambers/Structures Left Atrium LA Volume: 65.97 ml LA Area: 20.93 cm^2 LA Vol. Index: 31 ml/m^2 Left Ventricle LVIDd: 6.27 cm LV Septum Diastolic: 0.74 cm LV PW Diastolic: 0.64 cm LVEDV Coelho's:227.76 ml LVESV Coelho's:170.02 ml LVEF Coelho's: 25.4 % LVEDVI: 108 ml/m^2 LVESVI: 81 ml/m^2 LVOT Diameter: 2.04 cm Aorta Ao Root S of Emilee.: 3.03 cm Doppler/Quantitative Measurements Aortic Valve Peak Velocity: 1 m/s Mean Velocity: 0.7 m/s Peak Gradient: 4.01 mmHg Mean Gradient: 2.29 mmHg AV Area (continuity): 3.99 cm^2 AV VTI: 16.03 cm AV DVI: 1.22 LVOT Peak Velocity: 1.18 m/s Peak Gradient: 5.59 mmHg Mean Velocity: 0.76 m/s Mean Gradient: 2.65 mmHg LVOT Diameter: 2.04 cm LVOT VTI: 19.57 cm LVOT Area: 3.27 cm^2 LVOT SV:63.93 ml LVOT CO: 7.99 l/min LVOT CI: 3.8 l/min/m^2 Performing Organization Address City/[facility] Phone Number [facility] Comprehensive metabolic panel (12/09/2018 1:42 AM CDT) Protein, Total 6.9Comment: Specimen 6.0 - 8.3 gm/dL [facility] slightly hemolyzed [facility] Albumin 3.4 (L)Comment: Specimen 3.5 - 5.0 g/dL [facility] slightly hemolyzed [facility] Alkaline Phosphatase 66 40 - 150 U/L [facility] Total Bilirubin 0.5Comment: Specimen 0.2 - 1.2 mg/dL [facility] slightly hemolyzed [facility] Sodium 138 136 - 145 meq/L [facility] Potassium 4.4Comment: Specimen 3.5 - 5.1 meq/L [facility] slightly hemolyzed [facility] Chloride 108 (H) 98 - 107 meq/L [facility] CO2 20 (L) 22 - 29 meq/L [facility] BUN 17 7 - 21 mg/dL [facility] Creatinine 1.20Comment: Specimen 0.57 - 1.25 mg/dL [facility] slightly hemolyzed [facility] Glucose 135 (H) 70 - 105 mg/dL [facility] Calcium 8.5 8.4 - 10.2 mg/dL [facility] AST 13Comment: Specimen 5 - 34 U/L [facility] slightly hemolyzed [facility] ALT 11Comment: Specimen 6 - 55 U/L [facility] slightly hemolyzed [facility] EGFR 60Comment: ESTIMATED GFR mL/min/1.73 sq m [facility] IS NOT ACCURATE [facility] CREATININE CLEARANCE IN PREDICTING GLOMERULAR FILTRATION RATE. ESTIMATED GFR IS NOT APPLICABLE FOR DIALYSIS PATIENTS. Specimen Blood Performing Organization Address City/[facility] Phone Number [facility] [address] [place] [address] [phone] CENTER Theophylline level (12/08/2018 6:48 PM CDT) Theophylline Lvl 10.1 10.0 - 20.0 ug/mL [facility] Specimen Blood Performing Organization Address City/State/Zipcode Phone Number [facility] [address] [place] [address] [phone] [place] Respiratory Panel [facility] (12/08/2018 5:57 PM CDT) Human Metapneumovirus Not detected Not detected, [facility] Rhinovirus Not detected Not detected, [facility] Equivocal [facility] Influenza A Not detected Not detected, [facility] INFLUENZA A (NO SUBTYPE) Not detected, [facility] [employer] [facility] Influenza A subtype H1 Not detected, [facility] Influenza A Subtype H3 Not detected, [facility] Influenza A Subtype H1-2009 Not detected, [facility] Influenza B Not detected Not detected, [facility] Respiratory Syncytial Virus Not detected Not detected, [facility] Parainfluenza Virus 1 Not detected Not detected, [facility] Parainfluenza Virus 2 Not detected Not detected, [facility] Parainfluenza virus 3 Not detected Not detected, [facility] Parainfluenza Virus 4 Not detected Not detected, [facility] Adenovirus Not detected Not detected, [facility] Coronavirus 229E Not detected Not detected, [facility] Coronavirus HKU1 Not detected Not detected, [facility] Coronavirus NL63 Not detected Not detected, [facility] Coronavirus OC43 Not detected Not detected, [facility] Bordetella Pertussis Not detected Not detected, [facility] [employer] [facility] Chlamydophila Pneumoniae Not detected Not detected, [facility] Mycoplasma Pneumoniae Not detected Not detected, [facility] Specimen Nasopharyngeal Narrative Performed At Other viruses and bacteria not targeted by [facility] this PCR panel cannot be excluded; therefore clinical correlation and follow up of serology, culture results, and other molecular studies is required. The results are not intended to be used as the sole means for clinical diagnosis or patient management decisions. This sample was tested at the [facility] using the [employer]NationArray Respiratory Panel. It is FDA cleared and has been verified and approved by the [facility] for clinical use on nasopharyngeal swab specimens. The performance of the FilmArray RP has not been established in individuals who received influenza vaccine.Recent administration of a nasal influenza vaccine may cause false positive results for Influenza A and/or Influenza B. Performing Organization Address City/[facility] Phone Number [address] [phone] [place] Legionella antigen, urine (12/08/2018 5:53 PM CDT) Legionella Urine Antigen Negative - see [facility] commentComment: Negative [facility] for L. pneumophila serogroup 1 antigen, suggesting no recent or current infection with this serogroup. Legionellosis cannot be ruled out since other serogroups and species may cause disease. Specimen Urine Performing Organization Address [facility] Phone Number [address] [phone] [place] Strep pneumoniae antigen (12/08/2018 5:49 PM CDT) Strep pneumoniae Presumptive negative Presumptive negative [facility] Antigen for pneumococcal for pneumococcal [facility] pneumonia - see comment pneumonia - see CENTER comment, Presumptive negative for pneumococcal meningitis - see comment Specimen Urine Narrative Performed At Presumptive negative for pneumococcal [facility] pneumonia, suggesting no current or recent pneumococcal infection. Infection due to S. pneumoniae cannot be ruled out since the antigen present in the sample may be below the detection limit of the test. Performing Organization Address City/State/Zipcode Phone Number [facility] [address] [place], [place] [phone] CENTER BUN and Creatinine (12/08/2018 5:46 PM CDT) BUN 18 7 - 21 mg/dL [facility] Creatinine 1.30 (H) 0.57 - 1.25 mg/dL [facility] EGFR 54Comment: ESTIMATED GFR IS mL/min/1.73 sq m [facility] NOT ACCURATE [facility] CLEARANCE IN PREDICTING GLOMERULAR FILTRATION RATE. ESTIMATED GFR IS NOT APPLICABLE FOR DIALYSIS PATIENTS. Specimen Blood Performing Organization Address City/State/Zipcode Phone Number [facility] [address] [place] [address] CENTER after 01/13/2018 Insurance Payer Benefit Plan / Group Subscriber ID Type Phone Address [employer] - MEDICARE AARP/MEDICARE COMPLETE xxxxxxxxx [facility] ([place]) [address] [id number] Advance Directives For more information, please contact:[address] [phone] Code Status Date Activated Date Inactivated Comments Full Code 12/15/2018 2:01 PM 01/01/2019 4:41 PM This code status was determined by: Patient Full Code 12/08/2018 4:57 PM 12/15/2018 2:01 PM This code status was determined by: Patient
--- OUTSIDE RECORDS SUMMARY | 2019-01-14 11:51 | XMS REPORT ---
:1945 [facility] [address] [place] [address] Care Team Providers Name Role Phone FERNANDO BALND Unavailable Unavailable Payers Payer Name Policy Type Policy Number Effective Date Expiration Date Problems This patient has no known problems. Allergies, Adverse Reactions, Alerts Allergy Allergy Status Severity Reaction(s) Onset Inactive Treating Comments Name Type Date Date Clinician Tetanus DA Active SV 2017-06 Vaccines -12 and Toxoid 00:00:0 0 Medications This patient has no known medications. Results Test Description Test Time Test Comments Text Results Atomic Results Result Comments POCT-GLUCOSE METER 2019-01-01 12:13:00 Test Item Value Reference Range Comments POC-GLUCOSE METER (BEAKER) (test 165 mg/dL 70-110 TESTED AT [facility] [address] [facility] ymly=2781) [facility] [address] [id number] 08:41:00 Test Item Value Reference Range Comments MAGNESIUM (BEAKER) (test fwsw=438) 2.0 mg/dL 1.6-2.6 BASIC METABOLIC [id number] 08:41:00 Test Item Value Reference Range Comments SODIUM (BEAKER) (test 142 meq/L 136-145 vvam=528) POTASSIUM (BEAKER) (test 4.6 meq/L 3.5-5.1 hruy=514) CHLORIDE (BEAKER) (test 102 meq/L 98-107 ysgu=553) CO2 (BEAKER) (test 33 meq/L 22-29 mpht=478) BLOOD UREA NITROGEN 21 mg/dL 7-21 (BEAKER) (test uoeu=405) CREATININE (BEAKER) (test 1.30 mg/dL 0.57-1.25 khtu=341) GLUCOSE RANDOM (BEAKER) 126 mg/dL 70-105 (test zwyy=072) CALCIUM (BEAKER) (test 9.3 mg/dL 8.4-10.2 ctmz=006) EGFR (BEAKER) (test 54 mL/min/1.73 sq m ESTIMATED GFR IS NOT bpnn=8464) ACCURATE CREATININE CLEARANCE IN PREDICTING GLOMERULAR FILTRATION RATE. ESTIMATED GFR IS NOT APPLICABLE FOR DIALYSIS PATIENTS. POCT-GLUCOSE [id number] 08:04:00 Test Item Value Reference Range Comments POC-GLUCOSE METER (BEAKER) 103 mg/dL 70-110 TESTED AT [address] (test nanv=0743) [place] [address] B-TYPE NATRIURETIC FACTOR (BNP)2019-01-01 05:26:00 Test Item Value Reference Range Comments B-TYPE NATRIURETIC PEPTIDE (BEAKER) (test 1150 pg/mL 0-100 wygo=870) POCT-GLUCOSE [id number] 21:02:00 Test Item Value Reference Range Comments POC-GLUCOSE METER (BEAKER) 180 mg/dL 70-110 TESTED AT [address] (test qats=3433) [place] [address] POCT-GLUCOSE [id number] 17:02:00 Test Item Value Reference Range Comments POC-GLUCOSE METER (BEAKER) 129 mg/dL 70-110 TESTED AT [address] (test khto=6619) [place] [address] POCT-GLUCOSE [id number] 12:26:00 Test Item Value Reference Range Comments POC-GLUCOSE METER (BEAKER) 127 mg/dL 70-110 TESTED AT [address] (test ocag=1707) [place] [id number] POCT-GLUCOSE [id number] 09:06:00 Test Item Value Reference Range Comments POC-GLUCOSE METER (BEAKER) 136 mg/dL 70-110 TESTED AT [address] (test taxb=5317) [place] [id number] [id number] 05:33:00 Test Item Value Reference Range Comments MAGNESIUM (BEAKER) (test ofwi=133) 1.9 mg/dL 1.6-2.6 BASIC METABOLIC [id number] 05:33:00 Test Item Value Reference Range Comments SODIUM (BEAKER) (test 140 meq/L 136-145 swgl=157) POTASSIUM (BEAKER) (test 4.2 meq/L 3.5-5.1 utfn=026) CHLORIDE (BEAKER) (test 103 meq/L 98-107 tmdj=505) CO2 (BEAKER) (test 31 meq/L 22-29 keku=020) BLOOD UREA NITROGEN 23 mg/dL 7-21 (BEAKER) (test movm=729) CREATININE (BEAKER) (test 1.32 mg/dL 0.57-1.25 hcyu=328) GLUCOSE RANDOM (BEAKER) 109 mg/dL 70-105 (test cnmi=994) CALCIUM (BEAKER) (test 8.7 mg/dL 8.4-10.2 yesh=412) EGFR (BEAKER) (test 53 mL/min/1.73 sq m ESTIMATED GFR IS NOT izjd=1841) ACCURATE CREATININE CLEARANCE IN PREDICTING GLOMERULAR FILTRATION RATE. ESTIMATED GFR IS NOT APPLICABLE FOR DIALYSIS PATIENTS. POCT-GLUCOSE [id number] 21:21:00 Test Item Value Reference Range Comments POC-GLUCOSE METER (BEAKER) 125 mg/dL 70-110 TESTED AT [address] (test utvu=5806) [place] [id number] POCT-GLUCOSE [id number] 17:10:00 Test Item Value Reference Range Comments POC-GLUCOSE METER (BEAKER) 126 mg/dL 70-110 TESTED AT [address] (test bogr=8778) [place] [id number] POCT-GLUCOSE [id number] 12:02:00 Test Item Value Reference Range Comments POC-GLUCOSE METER (BEAKER) 117 mg/dL 70-110 TESTED AT [address] (test sflk=8436) [place] [address] POCT-GLUCOSE [id number] 08:10:00 Test Item Value Reference Range Comments POC-GLUCOSE METER (BEAKER) 117 mg/dL 70-110 TESTED AT [address] (test zvdg=7209) [place] [address] [id number] 07:09:00 Test Item Value Reference Range Comments MAGNESIUM (BEAKER) (test mqpk=716) 1.8 mg/dL 1.6-2.6 BASIC METABOLIC [id number] 07:09:00 Test Item Value Reference Range Comments SODIUM (BEAKER) (test 141 meq/L 136-145 ymdc=105) POTASSIUM (BEAKER) (test 4.2 meq/L 3.5-5.1 zmbf=676) CHLORIDE (BEAKER) (test 103 meq/L 98-107 kofp=262) CO2 (BEAKER) (test 32 meq/L 22-29 ayyc=978) BLOOD UREA NITROGEN 20 mg/dL 7-21 (BEAKER) (test wdrp=569) CREATININE (BEAKER) (test 1.17 mg/dL 0.57-1.25 kguy=581) GLUCOSE RANDOM (BEAKER) 97 mg/dL 70-105 (test gxuq=081) CALCIUM (BEAKER) (test 8.7 mg/dL 8.4-10.2 cfoz=342) EGFR (BEAKER) (test 61 mL/min/1.73 sq m ESTIMATED GFR IS NOT fvgy=2250) ACCURATE CREATININE CLEARANCE IN PREDICTING GLOMERULAR FILTRATION RATE. ESTIMATED GFR IS NOT APPLICABLE FOR DIALYSIS PATIENTS. CBC (HEMOGRAM ONLY)2018-12-30 06:44:00 Test Item Value Reference Range Comments WHITE BLOOD CELL COUNT (BEAKER) (test dtfz=715) 6.6 K/ L 3.5-10.5 RED BLOOD CELL COUNT (BEAKER) (test nmas=438) 3.42 M/ L 4.63-6.08 HEMOGLOBIN (BEAKER) (test xfog=373) 8.8 GM/DL 13.7-17.5 HEMATOCRIT (BEAKER) (test faai=731) 29.2 % 40.1-51.0 MEAN CORPUSCULAR VOLUME (BEAKER) (test gjue=485) 85.4 fL 79.0-92.2 MEAN CORPUSCULAR HEMOGLOBIN (BEAKER) (test 25.7 pg 25.7-32.2 jigi=391) MEAN CORPUSCULAR HEMOGLOBIN CONC (BEAKER) (test 30.1 GM/DL 32.3-36.5 lnrr=450) RED CELL DISTRIBUTION WIDTH (BEAKER) (test 14.9 % 11.6-14.4 gksi=669) PLATELET COUNT (BEAKER) (test nydw=505) 233 K/CU MM 150-450 MEAN PLATELET VOLUME (BEAKER) (test yord=982) 10.6 fL 9.4-12.4 NUCLEATED RED BLOOD CELLS (BEAKER) (test 0 /100 WBC 0-0 eper=371) POCT-GLUCOSE [id number] 21:42:00 Test Item Value Reference Range Comments POC-GLUCOSE METER (BEAKER) 137 mg/dL 70-110 TESTED AT [address] (test elyt=6665) [facility] [address] POCT-GLUCOSE [id number] 17:22:00 Test Item Value Reference Range Comments POC-GLUCOSE METER (BEAKER) 168 mg/dL 70-110 TESTED AT [address] (test fjhb=4578) [place] [id number] POCT-GLUCOSE [id number] 12:54:00 Test Item Value Reference Range Comments POC-GLUCOSE METER (BEAKER) 138 mg/dL 70-110 TESTED AT [address] (test ngwm=9607) [place] [address] [id number] 05:12:00 Test Item Value Reference Range Comments MAGNESIUM (BEAKER) (test dthx=929) 2.0 mg/dL 1.6-2.6 BASIC METABOLIC [id number] 05:12:00 Test Item Value Reference Range Comments SODIUM (BEAKER) (test 139 meq/L 136-145 wgqp=444) POTASSIUM (BEAKER) (test 4.2 meq/L 3.5-5.1 idhq=216) CHLORIDE (BEAKER) (test 101 meq/L 98-107 qqcl=461) CO2 (BEAKER) (test 32 meq/L 22-29 jvms=884) BLOOD UREA NITROGEN 21 mg/dL 7-21 (BEAKER) (test hypb=413) CREATININE (BEAKER) (test 1.11 mg/dL 0.57-1.25 wyjz=026) GLUCOSE RANDOM (BEAKER) 92 mg/dL 70-105 (test ljmg=002) CALCIUM (BEAKER) (test 8.3 mg/dL 8.4-10.2 ykin=006) EGFR (BEAKER) (test 65 mL/min/1.73 sq m ESTIMATED GFR IS NOT cjhk=1670) ACCURATE CREATININE CLEARANCE IN PREDICTING GLOMERULAR FILTRATION RATE. ESTIMATED GFR IS NOT APPLICABLE FOR DIALYSIS PATIENTS. BLOOD [id number] 02:00:00 Test Item Value Reference Range Comments CULTURE (BEAKER) (test mtnv=0551) No growth in 5 days POCT-GLUCOSE [id number] 21:25:00 Test Item Value Reference Range Comments POC-GLUCOSE METER (BEAKER) 168 mg/dL 70-110 TESTED AT [address] (test fpgq=2148) [facility] [address] POCT-GLUCOSE [id number] 17:16:00 Test Item Value Reference Range Comments POC-GLUCOSE METER (BEAKER) 136 mg/dL 70-110 TESTED AT [address] (test mfoe=1281) [facility] [address] POCT-GLUCOSE [id number] 12:33:00 Test Item Value Reference Range Comments POC-GLUCOSE METER (BEAKER) 127 mg/dL 70-110 TESTED AT [address] (test otey=6563) [place] [address] [id number] 06:30:00 Test Item Value Reference Range Comments MAGNESIUM (BEAKER) (test rwmk=207) 2.1 mg/dL 1.6-2.6 BASIC METABOLIC [id number] 06:30:00 Test Item Value Reference Range Comments SODIUM (BEAKER) (test 139 meq/L 136-145 rtoj=650) POTASSIUM (BEAKER) (test 4.0 meq/L 3.5-5.1 ckfi=910) CHLORIDE (BEAKER) (test 101 meq/L 98-107 vsvy=970) CO2 (BEAKER) (test 31 meq/L 22-29 erjs=152) BLOOD UREA NITROGEN 23 mg/dL 7-21 (BEAKER) (test hvmw=690) CREATININE (BEAKER) (test 1.27 mg/dL 0.57-1.25 evki=577) GLUCOSE RANDOM (BEAKER) 106 mg/dL 70-105 (test gfkz=767) CALCIUM (BEAKER) (test 8.5 mg/dL 8.4-10.2 juwb=906) EGFR (BEAKER) (test 56 mL/min/1.73 sq m ESTIMATED GFR IS NOT kqlg=0013) ACCURATE CREATININE CLEARANCE IN PREDICTING GLOMERULAR FILTRATION RATE. ESTIMATED GFR IS NOT APPLICABLE FOR DIALYSIS PATIENTS. POCT-GLUCOSE [id number] 18:40:00 Test Item Value Reference Range Comments POC-GLUCOSE METER (BEAKER) 151 mg/dL 70-110 TESTED AT [address] (test yhim=8025) [place] [id number] POCT-GLUCOSE [id number] 12:32:00 Test Item Value Reference Range Comments POC-GLUCOSE METER (BEAKER) 145 mg/dL 70-110 TESTED AT [address] (test bdim=9866) [place] [address] POCT-GLUCOSE [id number] 09:21:00 Test Item Value Reference Range Comments POC-GLUCOSE METER (BEAKER) 120 mg/dL 70-110 TESTED AT [address] (test eflw=1576) [place] [address] [id number] 06:50:00 Test Item Value Reference Range Comments MAGNESIUM (BEAKER) (test zrvc=334) 1.8 mg/dL 1.6-2.6 POCT-GLUCOSE [id number] 21:57:00 Test Item Value Reference Range Comments POC-GLUCOSE METER (BEAKER) 110 mg/dL 70-110 TESTED AT [address] (test wtyp=1091) [place] [address] POCT-GLUCOSE [id number] 17:57:00 Test Item Value Reference Range Comments POC-GLUCOSE METER (BEAKER) 130 mg/dL 70-110 TESTED AT [address] (test rlqw=6128) [place] [address] RAD, CHEST, 1 VIEW, NON [id number] 16:41:00Reason for exam:->s/p acbShould this be performed at the bedside?->YesFINAL REPORT Chest x-ray Clinical History: s/p acb Comparison: December 25, 2018 Views: One AP lordotic Chest x-ray:The cardiac and mediastinal silhouettes are prominent. There [...] noted there is nonspecific increase in interstitial markings.Impression: Mild increase in interstitial edema Signed: Esther Pacheco Verified Date/Time: 12/26/2018 16:41:43 Reading Location: [facility] Radiology Reading Room SPUTUM CULTURE + GRAM [id number] 12:16:00 Test Item Value Reference Range Comments CULTURE (BEAKER) (test 4+ Normal respiratory deandra xmpk=5014) present GRAM STAIN RESULT (BEAKER) <1+ White blood cells seen (test fwfp=0241) GRAM STAIN RESULT (BEAKER) 0-5 epithelial cells (test mycb=49952) GRAM STAIN RESULT (BEAKER) <1+ yeast (test jdvm=49004) POCT-GLUCOSE [id number] 11:58:00 Test Item Value Reference Range Comments POC-GLUCOSE METER (BEAKER) 124 mg/dL 70-110 TESTED AT [address] (test iboz=9699) [place] [address] POCT-GLUCOSE [id number] 07:27:00 Test Item Value Reference Range Comments POC-GLUCOSE METER (BEAKER) 140 mg/dL 70-110 TESTED AT [address] (test pfsc=9096) [place] [address] [id number] 05:59:00 Test Item Value Reference Range Comments MAGNESIUM (BEAKER) (test cfsj=906) 2.0 mg/dL 1.6-2.6 B-TYPE NATRIURETIC FACTOR (BNP)2018-12-26 05:58:00 Test Item Value Reference Range Comments B-TYPE NATRIURETIC PEPTIDE (BEAKER) (test 1275 pg/mL 0-100 tjkd=199) POCT-GLUCOSE [id number] 21:27:00 Test Item Value Reference Range Comments POC-GLUCOSE METER (BEAKER) 181 mg/dL 70-110 TESTED AT [address] (test xhje=2363) [place] [id number] POCT-GLUCOSE [id number] 17:26:00 Test Item Value Reference Range Comments POC-GLUCOSE METER (BEAKER) 133 mg/dL 70-110 TESTED AT [address] (test inqp=2044) [place] [address] POCT-GLUCOSE [id number] 12:21:00 Test Item Value Reference Range Comments POC-GLUCOSE METER (BEAKER) 129 mg/dL 70-110 TESTED AT [address] (test leox=2299) [facility] [address] RAD, CHEST, 1 VIEW, NON [id number] 10:32:00Reason for exam:->pulmonary edemaShould this be performed at the bedside?->YesFINAL REPORT AP chest HISTORY: Pulmonary edema. COMPARISON: 07/26/2018. IMPRESSION: Cardia megaly. Sternotomy. Moderate diffuse interstitial edema. Moderate effusions. Basilar atelectasis. No pneumothorax. Signed: Serjio Lawrence MDReport Verified Date/Time: 12/25/2018 10:32:11 Reading Location: [facility] Radiology Reading Room POCT-GLUCOSE [id number] 07:45:00 Test Item Value Reference Range Comments POC-GLUCOSE METER (BEAKER) 150 mg/dL 70-110 TESTED AT [facility] [address] (test ndsd=9299) [facility] [address] [id number] 03:20:00 Test Item Value Reference Range Comments MAGNESIUM (BEAKER) (test 2.1 mg/dL 1.6-2.6 Specimen slightly hemolyzed lzel=567) BASIC METABOLIC [id number] 03:20:00 Test Item Value Reference Range Comments SODIUM (BEAKER) (test 138 meq/L 136-145 tvqz=806) POTASSIUM (BEAKER) (test 4.6 meq/L 3.5-5.1 Specimen slightly kyoz=057) hemolyzed CHLORIDE (BEAKER) (test 100 meq/L 98-107 pbyj=038) CO2 (BEAKER) (test 32 meq/L 22-29 ardb=170) BLOOD UREA NITROGEN 28 mg/dL 7-21 (BEAKER) (test gwkp=059) CREATININE (BEAKER) (test 1.17 mg/dL 0.57-1.25 Specimen slightly opjw=272) hemolyzed GLUCOSE RANDOM (BEAKER) 104 mg/dL 70-105 (test dubd=563) CALCIUM (BEAKER) (test 8.5 mg/dL 8.4-10.2 wrri=515) EGFR (BEAKER) (test 61 mL/min/1.73 sq m ESTIMATED GFR IS NOT kjsx=5724) ACCURATE CREATININE CLEARANCE IN PREDICTING GLOMERULAR FILTRATION RATE. ESTIMATED GFR IS NOT APPLICABLE FOR DIALYSIS PATIENTS. [id number] 03:12:00 Test Item Value Reference Range Comments PARTIAL THROMBOPLASTIN TIME (BEAKER) (test 38.2 seconds 22.5-36.0 jcbw=613) CBC W/PLT COUNT & AUTO [id number] 03:06:00 Test Item Value Reference Range Comments WHITE BLOOD CELL COUNT (BEAKER) (test hmpx=204) 8.0 K/ L 3.5-10.5 RED BLOOD CELL COUNT (BEAKER) (test xvtn=728) 3.28 M/ L 4.63-6.08 HEMOGLOBIN (BEAKER) (test xppx=030) 8.5 GM/DL 13.7-17.5 HEMATOCRIT (BEAKER) (test ndtj=858) 27.4 % 40.1-51.0 MEAN CORPUSCULAR VOLUME (BEAKER) (test zvro=274) 83.5 fL 79.0-92.2 MEAN CORPUSCULAR HEMOGLOBIN (BEAKER) (test 25.9 pg 25.7-32.2 yhlw=060) MEAN CORPUSCULAR HEMOGLOBIN CONC (BEAKER) (test 31.0 GM/DL 32.3-36.5 ysaq=955) RED CELL DISTRIBUTION WIDTH (BEAKER) (test 14.6 % 11.6-14.4 omaa=908) PLATELET COUNT (BEAKER) (test ppeu=694) 267 K/CU MM 150-450 MEAN PLATELET VOLUME (BEAKER) (test puws=324) 10.9 fL 9.4-12.4 NUCLEATED RED BLOOD CELLS (BEAKER) (test 0 /100 WBC 0-0 poar=828) NEUTROPHILS RELATIVE PERCENT (BEAKER) (test 73 % tbiq=509) LYMPHOCYTES RELATIVE PERCENT (BEAKER) (test 15 % jhhz=324) MONOCYTES RELATIVE PERCENT (BEAKER) (test 9 % hsgo=011) EOSINOPHILS RELATIVE PERCENT (BEAKER) (test 2 % alst=192) BASOPHILS RELATIVE PERCENT (BEAKER) (test 1 % wbnb=440) NEUTROPHILS ABSOLUTE COUNT (BEAKER) (test 5.81 K/ L 1.78-5.38 ibvu=428) LYMPHOCYTES ABSOLUTE COUNT (BEAKER) (test 1.20 K/ L 1.32-3.57 lndl=171) MONOCYTES ABSOLUTE COUNT (BEAKER) (test 0.69 K/ L 0.30-0.82 pgyo=679) EOSINOPHILS ABSOLUTE COUNT (BEAKER) (test 0.16 K/ L 0.04-0.54 vefe=709) BASOPHILS ABSOLUTE COUNT (BEAKER) (test 0.05 K/ L 0.01-0.08 yeft=254) IMMATURE GRANULOCYTES-RELATIVE PERCENT (BEAKER) 1 % 0-1 (test rqix=9538) CALCIUM, [id number] 02:49:00 Test Item Value Reference Range Comments CALCIUM IONIZED (BEAKER) (test ydak=452) 1.11 mmol/L 1.12-1.27 PH, BLOOD (BEAKER) (test nxdb=9025) 7.45 POCT-GLUCOSE [id number] 21:52:00 Test Item Value Reference Range Comments POC-GLUCOSE METER (BEAKER) 130 mg/dL 70-110 TESTED AT [address] (test lbcr=2347) [place] [address] [id number] 19:29:00 Test Item Value Reference Range Comments POTASSIUM (BEAKER) (test ihbc=612) 4.5 meq/L 3.5-5.1 [id number] 19:29:00 Test Item Value Reference Range Comments MAGNESIUM (BEAKER) (test gdhk=009) 2.1 mg/dL 1.6-2.6 CALCIUM, [id number] 19:05:00 Test Item Value Reference Range Comments CALCIUM IONIZED (BEAKER) (test aihg=419) 1.18 mmol/L 1.12-1.27 PH, BLOOD (BEAKER) (test vubi=4517) 7.35 POCT-GLUCOSE [id number] 18:34:00 Test Item Value Reference Range Comments POC-GLUCOSE METER (BEAKER) 125 mg/dL 70-110 TESTED AT [address] (test jjng=7137) [facility] [address] RAD, CHEST, 1 VIEW, NON [id number] 16:43:00Reason for exam:->shortness of BreathShould this be performed at the bedside?->YesFINAL REPORT EXAM: Frontal chest radiograph HISTORY PROVIDED: Shortness of breath COMPARISON: 12/23/2018 IMPRESSION:Bilateral lower lung zone opacities and small bilateral pleuraleffusions are similar to the previous examination. Bilateral pulmonary vascular congestion is also suspected. No discernible pneumothorax. Cardiomediastinal contours are stable. Sternotomy wires are again noted. No acute osseous abnormality. Signed: Jessica Valdovinos Verified Date/Time: 12/24/2018 16:43:55 Reading Location: [facility] Reading Room POCT-GLUCOSE [id number] 11:44:00 Test Item Value Reference Range Comments POC-GLUCOSE METER (BEAKER) 115 mg/dL 70-110 TESTED AT [address] (test ghst=7741) [facility] [address] POCT-GLUCOSE [id number] 09:29:00 Test Item Value Reference Range Comments POC-GLUCOSE METER (BEAKER) 123 mg/dL 70-110 TESTED AT [address] (test rmju=7959) [place] [address] [id number] 04:47:00 Test Item Value Reference Range Comments PARTIAL THROMBOPLASTIN TIME (BEAKER) (test 37.9 seconds 22.5-36.0 fcql=200) [id number] 04:37:00 Test Item Value Reference Range Comments MAGNESIUM (BEAKER) (test 2.4 mg/dL 1.6-2.6 Specimen slightly hemolyzed nhqd=473) [id number] 04:37:00 Test Item Value Reference Range Comments PHOSPHORUS (BEAKER) (test 4.0 mg/dL 2.3-4.7 Specimen slightly hemolyzed yteg=269) BASIC METABOLIC [id number] 04:37:00 Test Item Value Reference Range Comments SODIUM (BEAKER) (test 139 meq/L 136-145 byvo=855) POTASSIUM (BEAKER) (test 4.9 meq/L 3.5-5.1 Specimen slightly gqnu=068) hemolyzed CHLORIDE (BEAKER) (test 101 meq/L 98-107 qxls=973) CO2 (BEAKER) (test 29 meq/L 22-29 mfrf=595) BLOOD UREA NITROGEN 26 mg/dL 7-21 (BEAKER) (test jfih=725) CREATININE (BEAKER) (test 1.14 mg/dL 0.57-1.25 Specimen slightly jrgf=973) hemolyzed GLUCOSE RANDOM (BEAKER) 89 mg/dL 70-105 (test sxlh=939) CALCIUM (BEAKER) (test 8.7 mg/dL 8.4-10.2 knpt=913) EGFR (BEAKER) (test 63 mL/min/1.73 sq m ESTIMATED GFR IS NOT qnjl=7731) ACCURATE CREATININE CLEARANCE IN PREDICTING GLOMERULAR FILTRATION RATE. ESTIMATED GFR IS NOT APPLICABLE FOR DIALYSIS PATIENTS. CBC (HEMOGRAM ONLY)2018-12-24 04:16:00 Test Item Value Reference Range Comments WHITE BLOOD CELL COUNT (BEAKER) (test xvio=316) 7.4 K/ L 3.5-10.5 RED BLOOD CELL COUNT (BEAKER) (test vhzx=225) 3.30 M/ L 4.63-6.08 HEMOGLOBIN (BEAKER) (test xyyk=476) 8.5 GM/DL 13.7-17.5 HEMATOCRIT (BEAKER) (test dkvq=772) 27.7 % 40.1-51.0 MEAN CORPUSCULAR VOLUME (BEAKER) (test yosm=607) 83.9 fL 79.0-92.2 MEAN CORPUSCULAR HEMOGLOBIN (BEAKER) (test 25.8 pg 25.7-32.2 hylo=848) MEAN CORPUSCULAR HEMOGLOBIN CONC (BEAKER) (test 30.7 GM/DL 32.3-36.5 tnel=889) RED CELL DISTRIBUTION WIDTH (BEAKER) (test 14.7 % 11.6-14.4 cahs=776) PLATELET COUNT (BEAKER) (test qcxj=847) 239 K/CU MM 150-450 MEAN PLATELET VOLUME (BEAKER) (test eupg=801) 10.3 fL 9.4-12.4 NUCLEATED RED BLOOD CELLS (BEAKER) (test 0 /100 WBC 0-0 hfue=399) POCT-GLUCOSE [id number] 22:39:00 Test Item Value Reference Range Comments POC-GLUCOSE METER (BEAKER) 139 mg/dL 70-110 TESTED AT [facility] [address] [facility] (test akhy=1084) [place] [address] HEPATIC FUNCTION [id number] 21:41:00 Test Item Value Reference Range Comments TOTAL PROTEIN (BEAKER) (test klaz=775) 5.9 gm/dL 6.0-8.3 ALBUMIN (BEAKER) (test hcnh=4974) 3.2 g/dL 3.5-5.0 BILIRUBIN TOTAL (BEAKER) (test apai=627) 0.3 mg/dL 0.2-1.2 BILIRUBIN DIRECT (BEAKER) (test tcgb=961) 0.2 mg/dL 0.1-0.5 ALKALINE PHOSPHATASE (BEAKER) (test ldsx=009) 50 U/L 40-150 AST (SGOT) (BEAKER) (test bsmo=455) 13 U/L 5-34 ALT (SGPT) (BEAKER) (test qnos=912) 24 U/L 6-55 CALCIUM, [id number] 21:07:00 Test Item Value Reference Range Comments CALCIUM IONIZED (BEAKER) (test zwsi=571) 1.15 mmol/L 1.12-1.27 PH, BLOOD (BEAKER) (test ojqc=2707) 7.41 LACTIC ACID, [id number] 20:16:00 Test Item Value Reference Range Comments LACTATE BLOOD VENOUS (2) 0.9 mmol/L 0.5-2.2 Specimen slightly hemolyzed (BEAKER) (test takx=0204) [id number] 18:53:00 Test Item Value Reference Range Comments PROCALCITONIN (BEAKER) (test ausn=4994) < ng/mL <0.05 SEPSIS RISK (ng/mL)Low: 0.05-0.50Intermediate: 0.51-2.00High: & gt;=2.01BASIC METABOLIC [id number] 18:25:00 Test Item Value Reference Range Comments SODIUM (BEAKER) (test 140 meq/L 136-145 ztop=503) POTASSIUM (BEAKER) (test 4.5 meq/L 3.5-5.1 cncw=735) CHLORIDE (BEAKER) (test 100 meq/L 98-107 dmhj=267) CO2 (BEAKER) (test 33 meq/L 22-29 ecaw=856) BLOOD UREA NITROGEN 26 mg/dL 7-21 (BEAKER) (test zmxo=106) CREATININE (BEAKER) (test 1.25 mg/dL 0.57-1.25 utmr=051) GLUCOSE RANDOM (BEAKER) 97 mg/dL 70-105 (test qxya=884) CALCIUM (BEAKER) (test 8.7 mg/dL 8.4-10.2 wifl=709) EGFR (BEAKER) (test 57 mL/min/1.73 sq m ESTIMATED GFR IS NOT lvej=0682) ACCURATE CREATININE CLEARANCE IN PREDICTING GLOMERULAR FILTRATION RATE. ESTIMATED GFR IS NOT APPLICABLE FOR DIALYSIS PATIENTS. [id number] 18:20:00 Test Item Value Reference Range Comments MAGNESIUM (BEAKER) (test como=594) 2.2 mg/dL 1.6-2.6 Check Serum Magnesium level 2 hours after IV magnesium replacement.POCT-GLUCOSE [id number] 17:58:00 Test Item Value Reference Range Comments POC-GLUCOSE METER (BEAKER) 101 mg/dL 70-110 TESTED AT [facility] [address] [facility] (test kjds=3840) [facility] [address] HEMOGLOBIN AND [id number] 17:42:00 Test Item Value Reference Range Comments HEMOGLOBIN (BEAKER) (test owmc=102) 8.0 GM/DL 13.7-17.5 HEMATOCRIT (BEAKER) (test urwa=224) 25.8 % 40.1-51.0 CBC (HEMOGRAM ONLY)2018-12-23 17:42:00 Test Item Value Reference Range Comments WHITE BLOOD CELL COUNT (BEAKER) (test mtuc=449) 8.6 K/ L 3.5-10.5 RED BLOOD CELL COUNT (BEAKER) (test wrhe=479) 3.05 M/ L 4.63-6.08 HEMOGLOBIN (BEAKER) (test csvb=809) 8.0 GM/DL 13.7-17.5 HEMATOCRIT (BEAKER) (test hncx=665) 25.8 % 40.1-51.0 MEAN CORPUSCULAR VOLUME (BEAKER) (test sjjg=776) 84.6 fL 79.0-92.2 MEAN CORPUSCULAR HEMOGLOBIN (BEAKER) (test 26.2 pg 25.7-32.2 nlmo=828) MEAN CORPUSCULAR HEMOGLOBIN CONC (BEAKER) (test 31.0 GM/DL 32.3-36.5 sfgh=966) RED CELL DISTRIBUTION WIDTH (BEAKER) (test 14.7 % 11.6-14.4 avjs=073) PLATELET COUNT (BEAKER) (test plcu=424) 246 K/CU MM 150-450 MEAN PLATELET VOLUME (BEAKER) (test swqp=250) 10.7 fL 9.4-12.4 NUCLEATED RED BLOOD CELLS (BEAKER) (test 0 /100 WBC 0-0 wexv=988) POCT-GLUCOSE [id number] 12:24:00 Test Item Value Reference Range Comments POC-GLUCOSE METER (BEAKER) 108 mg/dL 70-110 TESTED AT [address] (test iism=8645) [place] [id number] RAD, CHEST, 1 VIEW, NON [id number] 09:04:00Reason for exam:->pulmonary edemaShould this be performed at the bedside?->YesFINAL REPORT AP view of the chest dated 12/23/2018 COMPARISON: December 22, 2018 CLINICAL INFORMATION: pulmonary edema Comment: Heart is normal in size. Pulmonary vasculature is unremarkable. Pulmonary parenchyma disease is seen in the right lower lobe suggestive of pneumonia. Subsegmental atelectasis is seen in the left lower lobe. The rest of the lungs are clear. IMPRESSION: Interval change. Signed: Katie Salinas Verified Date/Time: 12/23/2018 09:04:24 Reading Location:[facility] Radiology Reading Room 09:04 AMPOCT-GLUCOSE [id number] 08:01:00 Test Item Value Reference Range Comments POC-GLUCOSE METER (BEAKER) 123 mg/dL 70-110 TESTED AT [address] (test jfkf=5705) [place] [address] [id number] 05:56:00 Test Item Value Reference Range Comments MAGNESIUM (BEAKER) (test 2.1 mg/dL 1.6-2.6 Specimen slightly hemolyzed sssv=259) [id number] 05:56:00 Test Item Value Reference Range Comments PHOSPHORUS (BEAKER) (test 3.5 mg/dL 2.3-4.7 Specimen slightly hemolyzed vuzn=398) BASIC METABOLIC [id number] 05:56:00 Test Item Value Reference Range Comments SODIUM (BEAKER) (test 140 meq/L 136-145 zdee=566) POTASSIUM (BEAKER) (test 4.9 meq/L 3.5-5.1 Specimen slightly rvvl=353) hemolyzed CHLORIDE (BEAKER) (test 101 meq/L 98-107 nwhf=300) CO2 (BEAKER) (test 32 meq/L 22-29 saxl=998) BLOOD UREA NITROGEN 27 mg/dL 7-21 (BEAKER) (test mgnl=134) CREATININE (BEAKER) (test 1.22 mg/dL 0.57-1.25 Specimen slightly zbsc=007) hemolyzed GLUCOSE RANDOM (BEAKER) 106 mg/dL 70-105 (test jmfh=594) CALCIUM (BEAKER) (test 8.7 mg/dL 8.4-10.2 uual=390) EGFR (BEAKER) (test 58 mL/min/1.73 sq m ESTIMATED GFR IS NOT xczb=1657) ACCURATE CREATININE CLEARANCE IN PREDICTING GLOMERULAR FILTRATION RATE. ESTIMATED GFR IS NOT APPLICABLE FOR DIALYSIS PATIENTS. [id number] 04:41:00 Test Item Value Reference Range Comments PARTIAL THROMBOPLASTIN TIME (BEAKER) (test 35.4 seconds 22.5-36.0 pqvv=243) CBC (HEMOGRAM ONLY)2018-12-23 04:33:00 Test Item Value Reference Range Comments WHITE BLOOD CELL COUNT (BEAKER) (test gold=641) 11.1 K/ L 3.5-10.5 RED BLOOD CELL COUNT (BEAKER) (test anwc=109) 3.55 M/ L 4.63-6.08 HEMOGLOBIN (BEAKER) (test ibpn=222) 9.3 GM/DL 13.7-17.5 HEMATOCRIT (BEAKER) (test abba=214) 30.3 % 40.1-51.0 MEAN CORPUSCULAR VOLUME (BEAKER) (test ocyj=914) 85.4 fL 79.0-92.2 MEAN CORPUSCULAR HEMOGLOBIN (BEAKER) (test 26.2 pg 25.7-32.2 sids=561) MEAN CORPUSCULAR HEMOGLOBIN CONC (BEAKER) (test 30.7 GM/DL 32.3-36.5 ornl=130) RED CELL DISTRIBUTION WIDTH (BEAKER) (test 14.9 % 11.6-14.4 dqmn=913) PLATELET COUNT (BEAKER) (test rrez=049) 292 K/CU MM 150-450 MEAN PLATELET VOLUME (BEAKER) (test mgka=744) 10.5 fL 9.4-12.4 NUCLEATED RED BLOOD CELLS (BEAKER) (test 0 /100 WBC 0-0 kcfd=757) POCT-GLUCOSE [id number] 21:25:00 Test Item Value Reference Range Comments POC-GLUCOSE METER (BEAKER) 151 mg/dL 70-110 TESTED AT [address] (test brjn=2011) [place] [address] [id number] 19:38:00 Test Item Value Reference Range Comments PARTIAL THROMBOPLASTIN TIME (BEAKER) (test 38.7 seconds 22.5-36.0 pzrm=682) POCT-GLUCOSE [id number] 18:50:00 Test Item Value Reference Range Comments POC-GLUCOSE METER (BEAKER) 126 mg/dL 70-110 TESTED AT [address] (test ybtl=1275) [place] [address] [id number] 16:08:00 Test Item Value Reference Range Comments POTASSIUM (BEAKER) (test akmd=197) 4.7 meq/L 3.5-5.1 PRN - repeat potassium levels every 1 hour until glucose level is less than 450 mg/[id number] 16:08:00 Test Item Value Reference Range Comments MAGNESIUM (BEAKER) (test qojz=731) 2.2 mg/dL 1.6-2.6 PRN - repeat potassium levels every 1 hour until glucose level is less than 450 mg/dLPOCT-GLUCOSE [id number] 11:44:00 Test Item Value Reference Range Comments POC-GLUCOSE METER (BEAKER) 134 mg/dL 70-110 TESTED AT [address] (test afxq=7281) [place] [address] POCT-GLUCOSE [id number] 08:15:00 Test Item Value Reference Range Comments POC-GLUCOSE METER (BEAKER) 173 mg/dL 70-110 TESTED AT [address] (test esxw=4808) [place] [address] RAD, CHEST, 1 VIEW, NON [id number] 07:38:00Reason for exam:->pulmonary edemaShould this be performed at the bedside?->YesFINAL REPORT Portable chest. CLINICAL HISTORY: pulmonary edema. COMPARISON STUDY: Chest x-ray from yesterday. FINDINGS: The cardiac silhouette is unremarkable. Sternotomy wires are seen. The pulmonary parenchyma demonstrates interstitial and patchy airspace opacities with a nodule in the left midlung. There is blunting of the left costophrenic angle. The support lines and tubesare unchanged. No pneumothorax is seen. Degenerative changes are noted. IMPRESSION: No significant change. Signed: Rosendo Greeneeport Verified Date/Time: 07:38:37 Reading Location: [facility] Radiology Reading Room CALCIUM, [id number] 05:13:00 Test Item Value Reference Range Comments CALCIUM IONIZED (BEAKER) (test yzdq=612) 1.12 mmol/L 1.12-1.27 PH, BLOOD (BEAKER) (test pjiv=8177) 7.40 [id number] 04:53:00 Test Item Value Reference Range Comments PHOSPHORUS (BEAKER) (test usgh=310) 3.5 mg/dL 2.3-4.7 [id number] 04:53:00 Test Item Value Reference Range Comments MAGNESIUM (BEAKER) (test abci=378) 2.0 mg/dL 1.6-2.6 BASIC METABOLIC [id number] 04:53:00 Test Item Value Reference Range Comments SODIUM (BEAKER) (test 142 meq/L 136-145 mshx=724) POTASSIUM (BEAKER) (test 4.7 meq/L 3.5-5.1 jfaf=628) CHLORIDE (BEAKER) (test 103 meq/L 98-107 wexf=448) CO2 (BEAKER) (test 32 meq/L 22-29 zbvl=148) BLOOD UREA NITROGEN 27 mg/dL 7-21 (BEAKER) (test mrun=628) CREATININE (BEAKER) (test 1.08 mg/dL 0.57-1.25 ekww=346) GLUCOSE RANDOM (BEAKER) 95 mg/dL 70-105 (test jgew=228) CALCIUM (BEAKER) (test 8.5 mg/dL 8.4-10.2 dguj=136) EGFR (BEAKER) (test 67 mL/min/1.73 sq m ESTIMATED GFR IS NOT qxdq=3305) ACCURATE CREATININE CLEARANCE IN PREDICTING GLOMERULAR FILTRATION RATE. ESTIMATED GFR IS NOT APPLICABLE FOR DIALYSIS PATIENTS. CBC (HEMOGRAM ONLY)2018-12-22 04:26:00 Test Item Value Reference Range Comments WHITE BLOOD CELL COUNT (BEAKER) (test uwym=230) 11.4 K/ L 3.5-10.5 RED BLOOD CELL COUNT (BEAKER) (test xota=990) 3.47 M/ L 4.63-6.08 HEMOGLOBIN (BEAKER) (test joua=946) 9.0 GM/DL 13.7-17.5 HEMATOCRIT (BEAKER) (test pbgy=120) 29.7 % 40.1-51.0 MEAN CORPUSCULAR VOLUME (BEAKER) (test rgsv=496) 85.6 fL 79.0-92.2 MEAN CORPUSCULAR HEMOGLOBIN (BEAKER) (test 25.9 pg 25.7-32.2 xpfe=291) MEAN CORPUSCULAR HEMOGLOBIN CONC (BEAKER) (test 30.3 GM/DL 32.3-36.5 ivsf=429) RED CELL DISTRIBUTION WIDTH (BEAKER) (test 15.0 % 11.6-14.4 zril=394) PLATELET COUNT (BEAKER) (test hepp=748) 257 K/CU MM 150-450 MEAN PLATELET VOLUME (BEAKER) (test nrfu=166) 10.8 fL 9.4-12.4 NUCLEATED RED BLOOD CELLS (BEAKER) (test 0 /100 WBC 0-0 agnn=365) POCT-GLUCOSE [id number] 22:07:00 Test Item Value Reference Range Comments POC-GLUCOSE METER (BEAKER) 182 mg/dL 70-110 TESTED AT [address] (test znyu=4615) [facility] [address] POCT-GLUCOSE [id number] 17:42:00 Test Item Value Reference Range Comments POC-GLUCOSE METER (BEAKER) 183 mg/dL 70-110 TESTED AT [address] (test nitv=1650) [facility] [address] [id number] 13:25:00 Test Item Value Reference Range Comments MAGNESIUM (BEAKER) (test 2.2 mg/dL 1.6-2.6 Specimen slightly hemolyzed csfj=369) Check Serum Magnesium level 2 hours after IV magnesium replacement.Check Serum Phosphorus level 4 hours after IV phosphorus replacement or 8 hours after PO replacement completed.Check Serum Potassium level 2 hours after oral potassium replacement completed or 30 min after intravenous potassium replacement.[id number] 13:25:00 Test Item Value Reference Range Comments PHOSPHORUS (BEAKER) (test 3.3 mg/dL 2.3-4.7 Specimen slightly hemolyzed mnaz=902) Check Serum Magnesium level 2 hours after IV magnesium replacement.Check Serum Phosphorus level 4 hours after IV phosphorus replacement or 8 hours after PO replacement completed.Check Serum Potassium level 2 hours after oral potassium replacement completed or 30 min after intravenous potassium replacement.[id number] 13:25:00 Test Item Value Reference Range Comments POTASSIUM (BEAKER) (test 4.6 meq/L 3.5-5.1 Specimen slightly hemolyzed jgge=696) Check Serum Magnesium level 2 hours after IV magnesium replacement.Check Serum Phosphorus level 4 hours after IV phosphorus replacement or 8 hours after PO replacement completed.Check Serum Potassium level 2 hours after oral potassium replacement completed or 30 min after intravenous potassium replacement.CALCIUM , [id number] 13:04:00 Test Item Value Reference Range Comments CALCIUM IONIZED (BEAKER) (test cpvc=535) 1.13 mmol/L 1.12-1.27 PH, BLOOD (BEAKER) (test qzak=8446) 7.45 Check serum Ionized Calcium level after 4 hours after IV Calcium replacement.POCT-GLUCOSE [id number] 11:41:00 Test Item Value Reference Range Comments POC-GLUCOSE METER (BEAKER) 155 mg/dL 70-110 TESTED AT [address] (test xsnc=5461) [facility] [address] RAD, CHEST, 1 VIEW, NON [id number] 09:25:00Reason for exam:->pulmonary edemaShould this be performed at the bedside?->YesFINAL REPORT RAD, CHEST, 1 VIEW, NON DEPT INDICATION: pulmonary edema COMPARISON: Prior day's exam FINDINGS: Portable frontal view of the chest. IMPRESSION: Support Lines: Stable. Lungs and pleura: Slightly improved interstitial edema bilaterally. Persistent small bilateral effusions. Calcified granuloma again noted in the left lower lobe. No pneumothorax.Heart and mediastinum: Stable contours. Stable surgical changes.Additional findings: None. Signed: JR Landy, Juan Luis REDDYeport Verified Date/Time: 12/21/2018 09:25:43 Reading Location: [facility] C013V Neuro Reading Room POCT-GLUCOSE [id number] 07:42: 00 Test Item Value Reference Range Comments POC-GLUCOSE METER (BEAKER) 138 mg/dL 70-110 TESTED AT [facility] [address] (test isyd=4884) [facility] [address] [id number] 06:04:00 Test Item Value Reference Range Comments PHOSPHORUS (BEAKER) (test lwov=128) 3.0 mg/dL 2.3-4.7 [id number] 06:04:00 Test Item Value Reference Range Comments MAGNESIUM (BEAKER) (test fyav=669) 2.3 mg/dL 1.6-2.6 BASIC METABOLIC [id number] 06:04:00 Test Item Value Reference Range Comments SODIUM (BEAKER) (test 139 meq/L 136-145 nzpa=666) POTASSIUM (BEAKER) (test 4.3 meq/L 3.5-5.1 ibqe=914) CHLORIDE (BEAKER) (test 100 meq/L 98-107 eyib=907) CO2 (BEAKER) (test 32 meq/L 22-29 dtih=824) BLOOD UREA NITROGEN 25 mg/dL 7-21 (BEAKER) (test arsg=372) CREATININE (BEAKER) (test 1.04 mg/dL 0.57-1.25 jomc=820) GLUCOSE RANDOM (BEAKER) 114 mg/dL 70-105 (test xcsy=370) CALCIUM (BEAKER) (test 8.0 mg/dL 8.4-10.2 nwdd=284) EGFR (BEAKER) (test 70 mL/min/1.73 sq m ESTIMATED GFR IS NOT rqze=4219) ACCURATE CREATININE CLEARANCE IN PREDICTING GLOMERULAR FILTRATION RATE. ESTIMATED GFR IS NOT APPLICABLE FOR DIALYSIS PATIENTS. CALCIUM, [id number] 05:37:00 Test Item Value Reference Range Comments CALCIUM IONIZED (BEAKER) (test lubu=841) 1.10 mmol/L 1.12-1.27 PH, BLOOD (BEAKER) (test xowx=4396) 7.41 CBC (HEMOGRAM ONLY)2018-12-21 04:45:00 Test Item Value Reference Range Comments WHITE BLOOD CELL COUNT (BEAKER) (test nmkm=923) 11.6 K/ L 3.5-10.5 RED BLOOD CELL COUNT (BEAKER) (test qaxn=473) 3.74 M/ L 4.63-6.08 HEMOGLOBIN (BEAKER) (test epef=039) 9.8 GM/DL 13.7-17.5 HEMATOCRIT (BEAKER) (test wdyj=194) 31.6 % 40.1-51.0 MEAN CORPUSCULAR VOLUME (BEAKER) (test cngw=113) 84.5 fL 79.0-92.2 MEAN CORPUSCULAR HEMOGLOBIN (BEAKER) (test 26.2 pg 25.7-32.2 akle=865) MEAN CORPUSCULAR HEMOGLOBIN CONC (BEAKER) (test 31.0 GM/DL 32.3-36.5 tdyz=581) RED CELL DISTRIBUTION WIDTH (BEAKER) (test 15.1 % 11.6-14.4 rylq=654) PLATELET COUNT (BEAKER) (test bnoe=616) 250 K/CU MM 150-450 MEAN PLATELET VOLUME (BEAKER) (test yele=134) 10.7 fL 9.4-12.4 NUCLEATED RED BLOOD CELLS (BEAKER) (test 0 /100 WBC 0-0 nqes=140) [id number] 00:49:00 Test Item Value Reference Range Comments POTASSIUM (BEAKER) (test vepc=286) 4.6 meq/L 3.5-5.1 [id number] 00:49:00 Test Item Value Reference Range Comments MAGNESIUM (BEAKER) (test dwbh=795) 2.0 mg/dL 1.6-2.6 POCT-GLUCOSE [id number] 22:01:00 Test Item Value Reference Range Comments POC-GLUCOSE METER (BEAKER) 163 mg/dL 70-110 TESTED AT [facility] [address] [facility] [address] [facility] (test bulh=0218) [place] [address] [id number] 17:05:00 Test Item Value Reference Range Comments POTASSIUM (BEAKER) (test somq=310) 3.7 meq/L 3.5-5.1 [id number] 17:05:00 Test Item Value Reference Range Comments MAGNESIUM (BEAKER) (test jodi=577) 2.1 mg/dL 1.6-2.6 POCT-GLUCOSE [id number] 16:53:00 Test Item Value Reference Range Comments POC-GLUCOSE METER (BEAKER) 147 mg/dL 70-110 TESTED AT [address] (test vlrf=4637) [place] [address] POCT-GLUCOSE [id number] 12:24:00 Test Item Value Reference Range Comments POC-GLUCOSE METER (BEAKER) 123 mg/dL 70-110 TESTED AT [address] (test qgvy=2514) [place] [address] [id number] 10:35:00 Test Item Value Reference Range Comments POTASSIUM (BEAKER) (test ltfg=720) 3.7 meq/L 3.5-5.1 [id number] 10:35:00 Test Item Value Reference Range Comments MAGNESIUM (BEAKER) (test nkcg=593) 2.1 mg/dL 1.6-2.6 POCT-GLUCOSE [id number] 07:55:00 Test Item Value Reference Range Comments POC-GLUCOSE METER (BEAKER) 137 mg/dL 70-110 TESTED AT [address] (test tdcx=0525) [place] [address] RAD, CHEST, 1 VIEW, NON [id number] 07:36:00Reason for exam:->pulmonary edemaShould this be performed at the bedside?->YesFINAL REPORT RAD, CHEST, 1 VIEW, NON DEPT INDICATION: pulmonary edema COMPARISON: Prior day's exam FINDINGS: Portable frontal view of the chest. IMPRESSION: Support Lines: Stable. Lungs and pleura: Congestive interstitial changes again noted bilaterally. Small bilateral pleural effusions are present. Calcified granuloma noted in the left lateral perihilar region. No pneumothorax.Heart and mediastinum: Stable contours. Stable surgical changes.Additional findings: None. Signed: JR Bill Robert MDReport Verified Date/Time: 12/20/2018 07:36:57 Reading Location: [address] Neuro Reading Room POTASSIUM-STAT [id number] 04:45:00 Test Item Value Reference Range Comments POTASSIUM (BEAKER) (test zbge=598) 3.6 meq/L 3.6-5.5 CALCIUM, [id number] 04:45:00 Test Item Value Reference Range Comments CALCIUM IONIZED (BEAKER) (test tser=626) 1.11 mmol/L 1.12-1.27 PH, BLOOD (BEAKER) (test onsp=5626) 7.48 [id number] 04:39:00 Test Item Value Reference Range Comments PHOSPHORUS (BEAKER) (test asoz=933) 2.6 mg/dL 2.3-4.7 [id number] 04:39:00 Test Item Value Reference Range Comments MAGNESIUM (BEAKER) (test vizj=396) 2.1 mg/dL 1.6-2.6 BASIC METABOLIC [id number] 04:39:00 Test Item Value Reference Range Comments SODIUM (BEAKER) (test 138 meq/L 136-145 lwhm=806) POTASSIUM (BEAKER) (test 3.7 meq/L 3.5-5.1 okxq=897) CHLORIDE (BEAKER) (test 101 meq/L 98-107 aspq=862) CO2 (BEAKER) (test 30 meq/L 22-29 ldqv=649) BLOOD UREA NITROGEN 24 mg/dL 7-21 (BEAKER) (test pmbb=504) CREATININE (BEAKER) (test 0.95 mg/dL 0.57-1.25 gery=124) GLUCOSE RANDOM (BEAKER) 113 mg/dL 70-105 (test xokp=987) CALCIUM (BEAKER) (test 8.2 mg/dL 8.4-10.2 oyym=330) EGFR (BEAKER) (test 78 mL/min/1.73 sq m ESTIMATED GFR IS NOT ibrp=6848) ACCURATE CREATININE CLEARANCE IN PREDICTING GLOMERULAR FILTRATION RATE. ESTIMATED GFR IS NOT APPLICABLE FOR DIALYSIS PATIENTS. CBC (HEMOGRAM ONLY)2018-12-20 04:25:00 Test Item Value Reference Range Comments WHITE BLOOD CELL COUNT (BEAKER) (test xeai=706) 12.1 K/ L 3.5-10.5 RED BLOOD CELL COUNT (BEAKER) (test wfki=073) 3.60 M/ L 4.63-6.08 HEMOGLOBIN (BEAKER) (test mpzx=195) 9.7 GM/DL 13.7-17.5 HEMATOCRIT (BEAKER) (test iujv=081) 30.4 % 40.1-51.0 MEAN CORPUSCULAR VOLUME (BEAKER) (test nfum=406) 84.4 fL 79.0-92.2 MEAN CORPUSCULAR HEMOGLOBIN (BEAKER) (test 26.9 pg 25.7-32.2 yqiy=012) MEAN CORPUSCULAR HEMOGLOBIN CONC (BEAKER) (test 31.9 GM/DL 32.3-36.5 tzge=193) RED CELL DISTRIBUTION WIDTH (BEAKER) (test 14.9 % 11.6-14.4 oaaz=332) PLATELET COUNT (BEAKER) (test vsjs=608) 198 K/CU MM 150-450 MEAN PLATELET VOLUME (BEAKER) (test jdcz=121) 11.3 fL 9.4-12.4 NUCLEATED RED BLOOD CELLS (BEAKER) (test 0 /100 WBC 0-0 zbyr=273) [id number] 23:33:00 Test Item Value Reference Range Comments MAGNESIUM (BEAKER) (test aluy=129) 2.0 mg/dL 1.6-2.6 BASIC METABOLIC [id number] 23:33:00 Test Item Value Reference Range Comments SODIUM (BEAKER) (test 139 meq/L 136-145 lleb=592) POTASSIUM (BEAKER) (test 3.7 meq/L 3.5-5.1 lyed=895) CHLORIDE (BEAKER) (test 102 meq/L 98-107 xtkm=202) CO2 (BEAKER) (test 29 meq/L 22-29 angf=714) BLOOD UREA NITROGEN 26 mg/dL 7-21 (BEAKER) (test qvpb=551) CREATININE (BEAKER) (test 0.98 mg/dL 0.57-1.25 drwn=331) GLUCOSE RANDOM (BEAKER) 120 mg/dL 70-105 (test jfwp=234) CALCIUM (BEAKER) (test 8.0 mg/dL 8.4-10.2 pmfk=942) EGFR (BEAKER) (test 75 mL/min/1.73 sq m ESTIMATED GFR IS NOT xfwm=1378) ACCURATE CREATININE CLEARANCE IN PREDICTING GLOMERULAR FILTRATION RATE. ESTIMATED GFR IS NOT APPLICABLE FOR DIALYSIS PATIENTS. CALCIUM, [id number] 22:52:00 Test Item Value Reference Range Comments CALCIUM IONIZED (BEAKER) (test mhss=418) 1.10 mmol/L 1.12-1.27 PH, BLOOD (BEAKER) (test vagb=9242) 7.43 POCT-GLUCOSE [id number] 21:53:00 Test Item Value Reference Range Comments POC-GLUCOSE METER (BEAKER) 138 mg/dL 70-110 TESTED AT [address] (test lrbk=0283) [place] [address] POCT-GLUCOSE [id number] 18:02:00 Test Item Value Reference Range Comments POC-GLUCOSE METER (BEAKER) 185 mg/dL 70-110 TESTED AT [address] (test csrh=2838) [place] [address] [id number] 15:24:00 Test Item Value Reference Range Comments POTASSIUM (BEAKER) (test tscv=447) 4.0 meq/L 3.5-5.1 [id number] 15:24:00 Test Item Value Reference Range Comments MAGNESIUM (BEAKER) (test pjss=135) 2.1 mg/dL 1.6-2.6 POCT-GLUCOSE [id number] 13:05:00 Test Item Value Reference Range Comments POC-GLUCOSE METER (BEAKER) 156 mg/dL 70-110 TESTED AT [address] (test kxqa=4465) [place] [id number] POCT-GLUCOSE [id number] 08:12:00 Test Item Value Reference Range Comments POC-GLUCOSE METER (BEAKER) 108 mg/dL 70-110 TESTED AT [address] (test cdlg=8855) [place] [address] RAD, CHEST, 1 VIEW, NON [id number] 07:53:00Reason for exam:->pulmonary edemaShould this be performed at the bedside?->YesFINAL REPORT TECHNIQUE: Frontal view of the chest. INDICATION: 73-year-old man with pulmonary edema. COMPARISON: Chest radiograph 12/18/2018. FINDINGS: LINES/TUBES : None. LUNGS: Increased airspace opacities in the right midlung zone. Persistent airspace opacities in the right lower lung zone. Unchanged calcified granuloma in the left midlung zone. PLEURA: Unchanged left pleuralthickening. No pneumothorax. HEART AND MEDIASTINUM: The cardiomediastinal silhouette is unchanged. Atherosclerotic calcifications in the thoracic aorta. SOFT TISSUES AND BONES: Unchanged median sternotomy wires. Soft tissues are unremarkable. IMPRESSION:Increased airspace opacities in the right midlung zone. Otherwise, no significant change since 12/18/2018. Signed: Benny Wolff MDReport Verified Date/Time: 12/19/2018 07:53:09 Reading Location: [facility] Radiology Reading Room [id number] 03:56:00 Test Item Value Reference Range Comments PHOSPHORUS (BEAKER) (test rzst=827) 2.4 mg/dL 2.3-4.7 [id number] 03:56:00 Test Item Value Reference Range Comments MAGNESIUM (BEAKER) (test nkbw=044) 2.0 mg/dL 1.6-2.6 BASIC METABOLIC [id number] 03:56:00 Test Item Value Reference Range Comments SODIUM (BEAKER) (test 139 meq/L 136-145 ocac=336) POTASSIUM (BEAKER) (test 3.9 meq/L 3.5-5.1 bwxy=023) CHLORIDE (BEAKER) (test 106 meq/L 98-107 lqxc=671) CO2 (BEAKER) (test 27 meq/L 22-29 iefi=447) BLOOD UREA NITROGEN 25 mg/dL 7-21 (BEAKER) (test vhls=181) CREATININE (BEAKER) (test 0.90 mg/dL 0.57-1.25 ndyp=852) GLUCOSE RANDOM (BEAKER) 116 mg/dL 70-105 (test drmq=533) CALCIUM (BEAKER) (test 8.1 mg/dL 8.4-10.2 rkbi=620) EGFR (BEAKER) (test 83 mL/min/1.73 sq m ESTIMATED GFR IS NOT yakz=9019) ACCURATE CREATININE CLEARANCE IN PREDICTING GLOMERULAR FILTRATION RATE. ESTIMATED GFR IS NOT APPLICABLE FOR DIALYSIS PATIENTS. CBC (HEMOGRAM ONLY)2018-12-19 03:34:00 Test Item Value Reference Range Comments WHITE BLOOD CELL COUNT (BEAKER) (test oyzh=820) 13.0 K/ L 3.5-10.5 RED BLOOD CELL COUNT (BEAKER) (test uaoz=180) 3.63 M/ L 4.63-6.08 HEMOGLOBIN (BEAKER) (test nzid=835) 9.5 GM/DL 13.7-17.5 HEMATOCRIT (BEAKER) (test fvwo=741) 30.4 % 40.1-51.0 MEAN CORPUSCULAR VOLUME (BEAKER) (test bozp=645) 83.7 fL 79.0-92.2 MEAN CORPUSCULAR HEMOGLOBIN (BEAKER) (test 26.2 pg 25.7-32.2 tqae=973) MEAN CORPUSCULAR HEMOGLOBIN CONC (BEAKER) (test 31.3 GM/DL 32.3-36.5 szyj=897) RED CELL DISTRIBUTION WIDTH (BEAKER) (test 14.9 % 11.6-14.4 mlun=375) PLATELET COUNT (BEAKER) (test bwyg=071) 149 K/CU MM 150-450 MEAN PLATELET VOLUME (BEAKER) (test nnoz=703) 11.6 fL 9.4-12.4 NUCLEATED RED BLOOD CELLS (BEAKER) (test 0 /100 WBC 0-0 pmcs=207) CALCIUM, [id number] 03:29:00 Test Item Value Reference Range Comments CALCIUM IONIZED (BEAKER) (test mjif=339) 1.10 mmol/L 1.12-1.27 PH, BLOOD (BEAKER) (test zdvf=4522) 7.47 POCT-GLUCOSE [id number] 22:30:00 Test Item Value Reference Range Comments POC-GLUCOSE METER (BEAKER) 115 mg/dL 70-110 TESTED AT [facility] [address] [facility] [address] (test renw=9721) [facility] [address] [id number] 20:25:00 Test Item Value Reference Range Comments MAGNESIUM (BEAKER) (test crjx=865) 2.1 mg/dL 1.6-2.6 BASIC METABOLIC [id number] 20:25:00 Test Item Value Reference Range Comments SODIUM (BEAKER) (test 137 meq/L 136-145 zhnh=899) POTASSIUM (BEAKER) (test 4.1 meq/L 3.5-5.1 gtns=146) CHLORIDE (BEAKER) (test 105 meq/L 98-107 kihw=774) CO2 (BEAKER) (test 26 meq/L 22-29 iazb=335) BLOOD UREA NITROGEN 25 mg/dL 7-21 (BEAKER) (test jgsx=365) CREATININE (BEAKER) (test 0.91 mg/dL 0.57-1.25 izyf=877) GLUCOSE RANDOM (BEAKER) 180 mg/dL 70-105 (test vfbj=214) CALCIUM (BEAKER) (test 8.0 mg/dL 8.4-10.2 dtqe=307) EGFR (BEAKER) (test 82 mL/min/1.73 sq m ESTIMATED GFR IS NOT uzit=3034) ACCURATE CREATININE CLEARANCE IN PREDICTING GLOMERULAR FILTRATION RATE. ESTIMATED GFR IS NOT APPLICABLE FOR DIALYSIS PATIENTS. CALCIUM, [id number] 20:03:00 Test Item Value Reference Range Comments CALCIUM IONIZED (BEAKER) (test ecko=807) 1.14 mmol/L 1.12-1.27 PH, BLOOD (BEAKER) (test xmar=2554) 7.48 POCT-GLUCOSE [id number] 17:42:00 Test Item Value Reference Range Comments POC-GLUCOSE METER (BEAKER) 125 mg/dL 70-110 TESTED AT [address] (test ljjm=0891) [facility] [address] [id number] 13:50:00 Test Item Value Reference Range Comments MAGNESIUM (BEAKER) (test 2.1 mg/dL 1.6-2.6 Specimen slightly hemolyzed hbhg=574) Check Serum Magnesium level 2 hours after IV magnesium replacement.Check Serum Potassium level 2 hours after oral potassium replacement completed or 30 min after intravenous potassium replacement.[id number] 13:50:00 Test Item Value Reference Range Comments POTASSIUM (BEAKER) (test 4.4 meq/L 3.5-5.1 Specimen slightly hemolyzed azfx=772) Check Serum Magnesium level 2 hours after IV magnesium replacement.Check Serum Potassium level 2 hours after oral potassium replacement completed or 30 min after intravenous potassium replacement.POCT-GLUCOSE [id number] 12:31:00 Test Item Value Reference Range Comments POC-GLUCOSE METER (BEAKER) 165 mg/dL 70-110 TESTED AT [facility] [address] [facility] [address] [facility] (test mhay=4389) [facility] [address] RAD, CHEST, 1 VIEW, NON [id number] 08:44:00Reason for exam:->SOBShould this be performed at the bedside?->YesFINAL REPORT Chest, 1 view, 12/18/2018 7:57 AM. History: Shortness of breath.Comparison: 12/17. Discussion: The cardiomediastinal silhouette and pulmonary vasculature are within normal limits for a portable exam. Patchy bibasilar opacities are present partially obscuring both hemidiaphragms. Calcified granuloma is again seen in the left midlung. Right IJ sheath and mediastinal wires are present. The soft tissues and osseous structures are intact. IMPRESSION: Slight increase in bibasilar opacities which may represent worsening atelectasis or pneumonia. Signed: Bj Larson Verified Date/Time: 12/18/2018 08:44 :28 Reading Location: [facility] Radiology Reading Room POCT-GLUCOSE [id number] 08:02:00 Test Item Value Reference Range Comments POC-GLUCOSE METER (BEAKER) 154 mg/dL 70-110 TESTED AT [address] (test lxsj=6063) [facility] [address] BLOOD GAS, [id number] 07:34:00 Test Item Value Reference Range Comments PH ARTERIAL (BEAKER) (test kkyt=347) 7.46 7.35-7.45 PCO2 ARTERIAL (BEAKER) (test nowd=267) 37 mmHg 35-45 PO2 ARTERIAL (BEAKER) (test pysk=185) 69 mmHg 80-90 O2 SATURATION ARTERIAL (BEAKER) (test wgwh=378) 94.8 % 96.0-97.0 HCO3 ARTERIAL (BEAKER) (test nxhx=586) 26 mmol/L 21-29 BASE EXCESS ARTERIAL (BEAKER) (test rmmq=206) 1.8 mmol/L -2.0-3.0 PATIENT TEMPERATURE (BEAKER) (test iduw=2932) 37.0 C FIO2 (BEAKER) (test xzch=1133) 40.0 % [id number] 05:04:00 Test Item Value Reference Range Comments PHOSPHORUS (BEAKER) (test sboz=806) 2.1 mg/dL 2.3-4.7 [id number] 05:04:00 Test Item Value Reference Range Comments MAGNESIUM (BEAKER) (test kahd=411) 2.0 mg/dL 1.6-2.6 BASIC METABOLIC [id number] 05:04:00 Test Item Value Reference Range Comments SODIUM (BEAKER) (test 136 meq/L 136-145 hyzg=782) POTASSIUM (BEAKER) (test 4.4 meq/L 3.5-5.1 cpsr=032) CHLORIDE (BEAKER) (test 107 meq/L 98-107 lxed=622) CO2 (BEAKER) (test 24 meq/L 22-29 gzec=567) BLOOD UREA NITROGEN 22 mg/dL 7-21 (BEAKER) (test csyh=998) CREATININE (BEAKER) (test 0.89 mg/dL 0.57-1.25 fowt=947) GLUCOSE RANDOM (BEAKER) 135 mg/dL 70-105 (test trsg=713) CALCIUM (BEAKER) (test 8.2 mg/dL 8.4-10.2 owgr=285) EGFR (BEAKER) (test 84 mL/min/1.73 sq m ESTIMATED GFR IS NOT oybw=6020) ACCURATE CREATININE CLEARANCE IN PREDICTING GLOMERULAR FILTRATION RATE. ESTIMATED GFR IS NOT APPLICABLE FOR DIALYSIS PATIENTS. CBC (HEMOGRAM ONLY)2018-12-18 04:28:00 Test Item Value Reference Range Comments WHITE BLOOD CELL COUNT (BEAKER) (test pvpd=378) 17.0 K/ L 3.5-10.5 RED BLOOD CELL COUNT (BEAKER) (test ejyn=333) 3.89 M/ L 4.63-6.08 HEMOGLOBIN (BEAKER) (test isqt=087) 10.2 GM/DL 13.7-17.5 HEMATOCRIT (BEAKER) (test owlb=543) 32.9 % 40.1-51.0 MEAN CORPUSCULAR VOLUME (BEAKER) (test gwdn=131) 84.6 fL 79.0-92.2 MEAN CORPUSCULAR HEMOGLOBIN (BEAKER) (test 26.2 pg 25.7-32.2 helw=734) MEAN CORPUSCULAR HEMOGLOBIN CONC (BEAKER) (test 31.0 GM/DL 32.3-36.5 dveb=724) RED CELL DISTRIBUTION WIDTH (BEAKER) (test 14.8 % 11.6-14.4 oaag=633) PLATELET COUNT (BEAKER) (test mcni=792) 143 K/CU MM 150-450 MEAN PLATELET VOLUME (BEAKER) (test sope=671) 12.2 fL 9.4-12.4 NUCLEATED RED BLOOD CELLS (BEAKER) (test 0 /100 WBC 0-0 xupg=873) BLOOD GAS, [id number] 03:26:00 Test Item Value Reference Range Comments PH ARTERIAL (BEAKER) (test yege=354) 7.45 7.35-7.45 PCO2 ARTERIAL (BEAKER) (test ryfl=158) 37 mmHg 35-45 PO2 ARTERIAL (BEAKER) (test ktsq=204) 100 mmHg 80-90 O2 SATURATION ARTERIAL (BEAKER) (test xbqu=424) 97.9 % 96.0-97.0 HCO3 ARTERIAL (BEAKER) (test tlsi=672) 25 mmol/L 21-29 BASE EXCESS ARTERIAL (BEAKER) (test pfyt=014) 1.3 mmol/L -2.0-3.0 PATIENT TEMPERATURE (BEAKER) (test hzda=8103) 36.8 C FIO2 (BEAKER) (test egfb=8900) 40.0 % CALCIUM, [id number] 03:26:00 Test Item Value Reference Range Comments CALCIUM IONIZED (BEAKER) (test qwql=960) 1.13 mmol/L 1.12-1.27 PH, BLOOD (BEAKER) (test bknr=7257) 7.45 POCT-GLUCOSE [id number] 21:30:00 Test Item Value Reference Range Comments POC-GLUCOSE METER (BEAKER) 129 mg/dL 70-110 TESTED AT [address] (test cvhd=2364) [facility] [address] POCT-GLUCOSE [id number] 18:18:00 Test Item Value Reference Range Comments POC-GLUCOSE METER (BEAKER) 165 mg/dL 70-110 TESTED AT [address] (test yqhs=3841) [facility] [address] BLOOD GAS, [id number] 18:09:00 Test Item Value Reference Range Comments PH ARTERIAL (BEAKER) (test gvqq=328) 7.47 7.35-7.45 PCO2 ARTERIAL (BEAKER) (test qaaa=932) 34 mmHg 35-45 PO2 ARTERIAL (BEAKER) (test exws=666) 79 mmHg 80-90 O2 SATURATION ARTERIAL (BEAKER) (test svxk=147) 96.4 % 96.0-97.0 HCO3 ARTERIAL (BEAKER) (test fwfg=419) 24 mmol/L 21-29 BASE EXCESS ARTERIAL (BEAKER) (test tcbi=548) 1.0 mmol/L -2.0-3.0 PATIENT TEMPERATURE (BEAKER) (test llxo=6444) 37.0 C FIO2 (BEAKER) (test roef=6933) 40.0 % POCT-GLUCOSE [id number] 14:03:00 Test Item Value Reference Range Comments POC-GLUCOSE METER (BEAKER) 212 mg/dL 70-110 TESTED AT [address] (test ugbl=2331) [facility] [address] RAD, CHEST, 1 VIEW, NON [id number] 07:48:00Reason for exam:->intubated, post opShould this be performed at the bedside?->YesFINAL REPORT Chest x-ray Clinical History: intubated, post op Comparison: December Views: Two AP lordotic Chest x-ray:The cardiac and mediastinal silhouettes are within normal limits. There is no evidence of a pneumothorax. There is evidence of a small left pleural effusion. The patient's right internal jugular [place] catheter has been removed. There remains a right internal jugular sheath. The patient has been extubated with interval removal of a nasogastric tube. Sternotomy changes are present with multiple chest tubes. There are increased interstitial findings. Subsegmental atelectasis in left lower lobe retrocardiac space is suspected. Increased interstitial pulmonary edema is favored. Signed: Esther Pacheco Verified Date/Time: 07:48:21 Reading Location: [facility] Radiology Reading Room CALCIUM, [id number] 04:51:00 Test Item Value Reference Range Comments CALCIUM IONIZED (BEAKER) (test oriy=266) 1.13 mmol/L 1.12-1.27 PH, BLOOD (BEAKER) (test seaj=2654) 7.48 [id number] 03:42:00 Test Item Value Reference Range Comments PHOSPHORUS (BEAKER) (test bcfz=811) 2.2 mg/dL 2.3-4.7 [id number] 03:42:00 Test Item Value Reference Range Comments MAGNESIUM (BEAKER) (test vnpf=062) 2.4 mg/dL 1.6-2.6 BASIC METABOLIC [id number] 03:42:00 Test Item Value Reference Range Comments SODIUM (BEAKER) (test 137 meq/L 136-145 hyis=132) POTASSIUM (BEAKER) (test 4.5 meq/L 3.5-5.1 mxfq=195) CHLORIDE (BEAKER) (test 107 meq/L 98-107 xnqq=992) CO2 (BEAKER) (test 25 meq/L 22-29 ypxp=563) BLOOD UREA NITROGEN 20 mg/dL 7-21 (BEAKER) (test cykp=898) CREATININE (BEAKER) (test 0.81 mg/dL 0.57-1.25 yvmu=952) GLUCOSE RANDOM (BEAKER) 159 mg/dL 70-105 (test icys=012) CALCIUM (BEAKER) (test 8.3 mg/dL 8.4-10.2 jrpe=440) EGFR (BEAKER) (test 94 mL/min/1.73 sq m ESTIMATED GFR IS NOT wupl=9683) ACCURATE CREATININE CLEARANCE IN PREDICTING GLOMERULAR FILTRATION RATE. ESTIMATED GFR IS NOT APPLICABLE FOR DIALYSIS PATIENTS. BLOOD GAS, [id number] 03:41:00 Test Item Value Reference Range Comments PH ARTERIAL (BEAKER) (test pppn=516) 7.46 7.35-7.45 PCO2 ARTERIAL (BEAKER) (test wzbs=613) 38 mmHg 35-45 PO2 ARTERIAL (BEAKER) (test kbua=499) 112 mmHg 80-90 O2 SATURATION ARTERIAL (BEAKER) (test demm=061) 98.2 % 96.0-97.0 HCO3 ARTERIAL (BEAKER) (test gplm=577) 26 mmol/L 21-29 BASE EXCESS ARTERIAL (BEAKER) (test knxh=552) 2.7 mmol/L -2.0-3.0 PATIENT TEMPERATURE (BEAKER) (test faqi=5430) 37.9 C FIO2 (BEAKER) (test cvbs=5039) 40.0 % OXYGEN SATURATION, [id number] 03:37:00 Test Item Value Reference Range Comments O2 SATURATION (MEASURED) (BEAKER) (test eihk=5547) 58.0 % CBC (HEMOGRAM ONLY)2018-12-17 03:18:00 Test Item Value Reference Range Comments WHITE BLOOD CELL COUNT (BEAKER) (test gcoc=019) 18.4 K/ L 3.5-10.5 RED BLOOD CELL COUNT (BEAKER) (test gupd=996) 4.11 M/ L 4.63-6.08 HEMOGLOBIN (BEAKER) (test fhgk=568) 10.8 GM/DL 13.7-17.5 HEMATOCRIT (BEAKER) (test swoh=645) 34.4 % 40.1-51.0 MEAN CORPUSCULAR VOLUME (BEAKER) (test sfgi=209) 83.7 fL 79.0-92.2 MEAN CORPUSCULAR HEMOGLOBIN (BEAKER) (test 26.3 pg 25.7-32.2 amvg=884) MEAN CORPUSCULAR HEMOGLOBIN CONC (BEAKER) (test 31.4 GM/DL 32.3-36.5 sbgd=834) RED CELL DISTRIBUTION WIDTH (BEAKER) (test 14.6 % 11.6-14.4 gfpd=858) PLATELET COUNT (BEAKER) (test xofl=889) 141 K/CU MM 150-450 MEAN PLATELET VOLUME (BEAKER) (test cdds=194) 11.6 fL 9.4-12.4 NUCLEATED RED BLOOD CELLS (BEAKER) (test 0 /100 WBC 0-0 tuum=656) [id number] 22:06:00 Test Item Value Reference Range Comments MAGNESIUM (BEAKER) (test miry=287) 2.0 mg/dL 1.6-2.6 BLOOD GAS, [id number] 21:50:00 Test Item Value Reference Range Comments PH ARTERIAL (BEAKER) (test zfbq=260) 7.54 7.35-7.45 PCO2 ARTERIAL (BEAKER) (test jgpo=639) 28 mmHg 35-45 PO2 ARTERIAL (BEAKER) (test wzsz=957) 50 mmHg 80-90 O2 SATURATION ARTERIAL (BEAKER) (test tbty=226) 94.9 % 96.0-97.0 HCO3 ARTERIAL (BEAKER) (test jtet=478) 25 mmol/L 21-29 BASE EXCESS ARTERIAL (BEAKER) (test gntn=487) 1.5 mmol/L -2.0-3.0 PATIENT TEMPERATURE (BEAKER) (test kyhl=5916) 32.1 C FIO2 (BEAKER) (test tume=4347) 100.0 % GLUCOSE-STAT [id number] 21:50:00 Test Item Value Reference Range Comments GLUCOSE RANDOM (BEAKER) (test jcdd=918) 220 mg/dL 70-110 HGB/HCT (H&H) - STAT [id number] 21:50:00 Test Item Value Reference Range Comments HEMOGLOBIN (BEAKER) (test twqa=406) 11.4 g/dL 13.0-16.8 HEMATOCRIT (BEAKER) (test bqal=991) 34.0 % 40.0-50.0 OXYGEN SATURATION, [id number] 21:50:00 Test Item Value Reference Range Comments O2 SATURATION (MEASURED) (BEAKER) (test uzaw=0555) 58.1 % SODIUM NA-STAT [id number] 21:49:00 Test Item Value Reference Range Comments SODIUM (BEAKER) (test zxar=551) 135 meq/L 135-148 POTASSIUM-STAT [id number] 21:49:00 Test Item Value Reference Range Comments POTASSIUM (BEAKER) (test teso=073) 4.2 meq/L 3.6-5.5 CALCIUM, [id number] 21:49:00 Test Item Value Reference Range Comments CALCIUM IONIZED (BEAKER) (test buxu=901) 1.12 mmol/L 1.12-1.27 PH, BLOOD (BEAKER) (test imbe=5828) 7.47 POCT-GLUCOSE [id number] 18:28:00 Test Item Value Reference Range Comments POC-GLUCOSE METER (BEAKER) 138 mg/dL 70-110 TESTED AT [facility] [address] (test tmlu=6164) [facility] [address] POCT-GLUCOSE [id number] 12:28:00 Test Item Value Reference Range Comments POC-GLUCOSE METER (BEAKER) 111 mg/dL 70-110 TESTED AT [address] (test xttk=9249) [facility] [address] OXYGEN SATURATION, [id number] 09:45:00 Test Item Value Reference Range Comments O2 SATURATION (MEASURED) (BEAKER) (test bjkl=1810) 64.3 % POCT-GLUCOSE [id number] 09:33:00 Test Item Value Reference Range Comments POC-GLUCOSE METER (BEAKER) 102 mg/dL 70-110 TESTED AT [address] (test qzqm=3111) [facility] [address] POCT-GLUCOSE [id number] 08:51:00 Test Item Value Reference Range Comments POC-GLUCOSE METER (BEAKER) 98 mg/dL 70-110 TESTED AT [address] (test niso=6267) [facility] [address] POCT-GLUCOSE [id number] 08:51:00 Test Item Value Reference Range Comments POC-GLUCOSE METER (BEAKER) 121 mg/dL 70-110 TESTED AT [address] (test uojm=4357) [facility] [address] LACTIC ACID, [id number] 07:52:00 Test Item Value Reference Range Comments LACTATE BLOOD ARTERIAL (2) 0.9 mmol/L 0.5-2.2 Specimen slightly hemolyzed (BEAKER) (test dbxx=5257) OXYGEN SATURATION, [id number] 07:18:00 Test Item Value Reference Range Comments O2 SATURATION (MEASURED) (BEAKER) (test xjek=2046) 96.4 % RAD, CHEST, 1 VIEW, NON [id number] 06:10:00Reason for exam:->intubated, post opShould this be performed at the bedside?->YesFINAL REPORT RAD, CHEST, 1 VIEW, NON DEPT INDICATION: intubated, post op COMPARISON: Prior day's exam FINDINGS: Portable frontal view of the chest. IMPRESSION: Support Lines: Introverted balloons pump superior marker terminates 1.8 cm below the superior aspect of the aortic knob. Otherwise unchanged support apparatus. Lungs and pleura: Unchanged airspace and pleural opacities. No pneumothorax.Heart and mediastinum: Stable contours. Stable surgical changes.Additional findings: None. Signed: Jaime Rojas Verified Date/Time: 12/16/2018 06:10:03 [id number] 04:05:00 Test Item Value Reference Range Comments PHOSPHORUS (BEAKER) (test djbb=519) 3.2 mg/dL 2.3-4.7 [id number] 04:05:00 Test Item Value Reference Range Comments MAGNESIUM (BEAKER) (test odyg=636) 2.3 mg/dL 1.6-2.6 BASIC METABOLIC [id number] 04:05:00 Test Item Value Reference Range Comments SODIUM (BEAKER) (test 138 meq/L 136-145 ubpp=224) POTASSIUM (BEAKER) (test 3.8 meq/L 3.5-5.1 kggx=914) CHLORIDE (BEAKER) (test 104 meq/L 98-107 hkat=070) CO2 (BEAKER) (test 28 meq/L 22-29 adno=751) BLOOD UREA NITROGEN 27 mg/dL 7-21 (BEAKER) (test wrfv=741) CREATININE (BEAKER) (test 0.93 mg/dL 0.57-1.25 hhby=159) GLUCOSE RANDOM (BEAKER) 103 mg/dL 70-105 (test ehok=414) CALCIUM (BEAKER) (test 8.1 mg/dL 8.4-10.2 vogc=877) EGFR (BEAKER) (test 80 mL/min/1.73 sq m ESTIMATED GFR IS NOT gnik=7553) ACCURATE CREATININE CLEARANCE IN PREDICTING GLOMERULAR FILTRATION RATE. ESTIMATED GFR IS NOT APPLICABLE FOR DIALYSIS PATIENTS. LACTIC ACID, [id number] 04:00:00 Test Item Value Reference Range Comments LACTATE BLOOD ARTERIAL (2) (BEAKER) (test 0.9 mmol/L 0.5-2.2 pvpv=5322) BLOOD GAS, [id number] 03:48:00 Test Item Value Reference Range Comments PH ARTERIAL (BEAKER) (test euax=913) 7.43 7.35-7.45 PCO2 ARTERIAL (BEAKER) (test akuo=120) 43 mmHg 35-45 PO2 ARTERIAL (BEAKER) (test ydch=887) 113 mmHg 80-90 O2 SATURATION ARTERIAL (BEAKER) (test odej=814) 98.3 % 96.0-97.0 HCO3 ARTERIAL (BEAKER) (test awge=121) 29 mmol/L 21-29 BASE EXCESS ARTERIAL (BEAKER) (test emlo=767) 3.6 mmol/L -2.0-3.0 PATIENT TEMPERATURE (BEAKER) (test shms=6073) 36.4 C FIO2 (BEAKER) (test qvgi=3970) 40.0 % OXYGEN SATURATION, [id number] 03:45:00 Test Item Value Reference Range Comments O2 SATURATION (MEASURED) (BEAKER) (test jhzb=7879) 64.9 % CBC (HEMOGRAM ONLY)2018-12-16 03:38:00 Test Item Value Reference Range Comments WHITE BLOOD CELL COUNT (BEAKER) (test tuqk=182) 16.8 K/ L 3.5-10.5 RED BLOOD CELL COUNT (BEAKER) (test rvfk=248) 4.05 M/ L 4.63-6.08 HEMOGLOBIN (BEAKER) (test jvri=397) 10.6 GM/DL 13.7-17.5 HEMATOCRIT (BEAKER) (test fvph=970) 33.6 % 40.1-51.0 MEAN CORPUSCULAR VOLUME (BEAKER) (test oaus=994) 83.0 fL 79.0-92.2 MEAN CORPUSCULAR HEMOGLOBIN (BEAKER) (test 26.2 pg 25.7-32.2 hbbi=930) MEAN CORPUSCULAR HEMOGLOBIN CONC (BEAKER) (test 31.5 GM/DL 32.3-36.5 ptjn=526) RED CELL DISTRIBUTION WIDTH (BEAKER) (test 14.0 % 11.6-14.4 jaia=599) PLATELET COUNT (BEAKER) (test rztx=938) 160 K/CU MM 150-450 MEAN PLATELET VOLUME (BEAKER) (test reru=882) 11.0 fL 9.4-12.4 NUCLEATED RED BLOOD CELLS (BEAKER) (test 0 /100 WBC 0-0 oaam=723) [id number] 23:46:00 Test Item Value Reference Range Comments MAGNESIUM (BEAKER) (test 2.7 mg/dL 1.6-2.6 Specimen slightly hemolyzed qmlv=110) [id number] 23:46:00 Test Item Value Reference Range Comments POTASSIUM (BEAKER) (test 4.4 meq/L 3.5-5.1 Specimen slightly hemolyzed xbtb=148) [id number] 23:46:00 Test Item Value Reference Range Comments GLUCOSE RANDOM (BEAKER) (test tras=333) 131 mg/dL 70-105 BASIC METABOLIC [id number] 23:46:00 Test Item Value Reference Range Comments SODIUM (BEAKER) (test 137 meq/L 136-145 ghep=925) POTASSIUM (BEAKER) (test 4.4 meq/L 3.5-5.1 Specimen slightly kqda=495) hemolyzed CHLORIDE (BEAKER) (test 103 meq/L 98-107 sriw=976) CO2 (BEAKER) (test 27 meq/L 22-29 uoxq=242) BLOOD UREA NITROGEN 29 mg/dL 7-21 (BEAKER) (test zurh=052) CREATININE (BEAKER) (test 1.05 mg/dL 0.57-1.25 Specimen slightly pfnc=974) hemolyzed GLUCOSE RANDOM (BEAKER) 131 mg/dL 70-105 (test mlpn=332) CALCIUM (BEAKER) (test 8.2 mg/dL 8.4-10.2 ngzl=180) EGFR (BEAKER) (test 69 mL/min/1.73 sq m ESTIMATED GFR IS NOT wvuz=4995) ACCURATE CREATININE CLEARANCE IN PREDICTING GLOMERULAR FILTRATION RATE. ESTIMATED GFR IS NOT APPLICABLE FOR DIALYSIS PATIENTS. LACTIC ACID, [id number] 23:41:00 Test Item Value Reference Range Comments LACTATE BLOOD ARTERIAL (2) 0.9 mmol/L 0.5-2.2 Specimen slightly hemolyzed (BEAKER) (test gwve=9094) CBC W/PLT COUNT & AUTO [id number] 23:30:00 Test Item Value Reference Range Comments WHITE BLOOD CELL COUNT (BEAKER) (test ttou=326) 26.0 K/ L 3.5-10.5 RED BLOOD CELL COUNT (BEAKER) (test rmqg=881) 4.36 M/ L 4.63-6.08 HEMOGLOBIN (BEAKER) (test gkkf=234) 11.5 GM/DL 13.7-17.5 HEMATOCRIT (BEAKER) (test frqf=358) 36.1 % 40.1-51.0 MEAN CORPUSCULAR VOLUME (BEAKER) (test gbdm=922) 82.8 fL 79.0-92.2 MEAN CORPUSCULAR HEMOGLOBIN (BEAKER) (test 26.4 pg 25.7-32.2 deyh=730) MEAN CORPUSCULAR HEMOGLOBIN CONC (BEAKER) (test 31.9 GM/DL 32.3-36.5 zqrn=246) RED CELL DISTRIBUTION WIDTH (BEAKER) (test 14.0 % 11.6-14.4 csqr=066) PLATELET COUNT (BEAKER) (test qnzp=026) 250 K/CU MM 150-450 MEAN PLATELET VOLUME (BEAKER) (test estp=206) 11.0 fL 9.4-12.4 NUCLEATED RED BLOOD CELLS (BEAKER) (test 0 /100 WBC 0-0 xynq=728) NEUTROPHILS RELATIVE PERCENT (BEAKER) (test 89 % unjq=739) LYMPHOCYTES RELATIVE PERCENT (BEAKER) (test 3 % gkbj=398) MONOCYTES RELATIVE PERCENT (BEAKER) (test 7 % mlqi=102) EOSINOPHILS RELATIVE PERCENT (BEAKER) (test 0 % jozj=767) BASOPHILS RELATIVE PERCENT (BEAKER) (test 0 % qxjm=406) NEUTROPHILS ABSOLUTE COUNT (BEAKER) (test 23.10 K/ L 1.78-5.38 wrmk=178) LYMPHOCYTES ABSOLUTE COUNT (BEAKER) (test 0.73 K/ L 1.32-3.57 qcro=166) MONOCYTES ABSOLUTE COUNT (BEAKER) (test 1.83 K/ L 0.30-0.82 tvyn=008) EOSINOPHILS ABSOLUTE COUNT (BEAKER) (test 0.00 K/ L 0.04-0.54 ucux=533) BASOPHILS ABSOLUTE COUNT (BEAKER) (test 0.06 K/ L 0.01-0.08 zyhr=765) IMMATURE GRANULOCYTES-RELATIVE PERCENT (BEAKER) 1 % 0-1 (test zmre=7745) BLOOD GAS, [id number] 23:23:00 Test Item Value Reference Range Comments PH ARTERIAL (BEAKER) (test nrwh=934) 7.43 7.35-7.45 PCO2 ARTERIAL (BEAKER) (test iecp=029) 44 mmHg 35-45 PO2 ARTERIAL (BEAKER) (test wmlk=509) 93 mmHg 80-90 O2 SATURATION ARTERIAL (BEAKER) (test bclv=480) 97.5 % 96.0-97.0 HCO3 ARTERIAL (BEAKER) (test cfpg=340) 29 mmol/L 21-29 BASE EXCESS ARTERIAL (BEAKER) (test qcof=607) 3.7 mmol/L -2.0-3.0 PATIENT TEMPERATURE (BEAKER) (test sbkn=9452) 36.1 C FIO2 (BEAKER) (test iljv=2655) 40.0 % GLUCOSE-STAT [id number] 23:23:00 Test Item Value Reference Range Comments GLUCOSE RANDOM (BEAKER) (test hvas=429) 135 mg/dL 70-110 HGB/HCT (H&H) - STAT [id number] 23:23:00 Test Item Value Reference Range Comments HEMOGLOBIN (BEAKER) (test fald=500) 11.7 g/dL 13.0-16.8 HEMATOCRIT (BEAKER) (test tmsx=806) 34.0 % 40.0-50.0 SODIUM NA-STAT [id number] 23:22:00 Test Item Value Reference Range Comments SODIUM (BEAKER) (test eszn=122) 137 meq/L 135-148 POTASSIUM-STAT [id number] 23:22:00 Test Item Value Reference Range Comments POTASSIUM (BEAKER) (test zicx=789) 4.0 meq/L 3.6-5.5 CALCIUM, [id number] 23:22:00 Test Item Value Reference Range Comments CALCIUM IONIZED (BEAKER) (test tpha=017) 1.14 mmol/L 1.12-1.27 PH, BLOOD (BEAKER) (test xfrh=7423) 7.42 OXYGEN SATURATION, [id number] 23:21:00 Test Item Value Reference Range Comments O2 SATURATION (MEASURED) (BEAKER) (test letb=3372) 73.1 % POCT-GLUCOSE [id number] 23:14:00 Test Item Value Reference Range Comments POC-GLUCOSE METER (BEAKER) 139 mg/dL 70-110 TESTED AT [address] (test njxt=0565) [place] [address] POCT-GLUCOSE [id number] 18:37:00 Test Item Value Reference Range Comments POC-GLUCOSE METER (BEAKER) 137 mg/dL 70-110 TESTED AT [address] (test mqnm=9499) [place] [address] SPUTUM CULTURE + GRAM [id number] 17:48:00 Test Item Value Reference Range Comments CULTURE (BEAKER) 4+ Burkholderia gladioli (test dagq=5767) GRAM STAIN RESULT 1+ WBCs (BEAKER) (test vwiu=6721) GRAM STAIN RESULT 0-5 epithelial cells (BEAKER) (test qpvn=330636) GRAM STAIN RESULT 2+ gram positive cocci (BEAKER) (test in chains and pairs qqqf=210905) GRAM STAIN RESULT 1+ gram positive cocci (BEAKER) (test in clusters epdr=931224) 4+ Normal respiratory deandra presentPOCT-GLUCOSE [id number] 17:06:00 Test Item Value Reference Range Comments POC-GLUCOSE METER (BEAKER) 129 mg/dL 70-110 TESTED AT [address] (test wcpx=9722) [place] [id number] POCT-GLUCOSE [id number] 15:21:00 Test Item Value Reference Range Comments POC-GLUCOSE METER (BEAKER) 152 mg/dL 70-110 TESTED AT [address] (test zlkv=1711) [place] [id number] BASIC METABOLIC [id number] 14:59:00 Test Item Value Reference Range Comments SODIUM (BEAKER) (test 137 meq/L 136-145 yaof=252) POTASSIUM (BEAKER) (test 4.2 meq/L 3.5-5.1 ojco=205) CHLORIDE (BEAKER) (test 102 meq/L 98-107 jtee=333) CO2 (BEAKER) (test 28 meq/L 22-29 fvdu=750) BLOOD UREA NITROGEN 31 mg/dL 7-21 (BEAKER) (test rjll=320) CREATININE (BEAKER) (test 1.08 mg/dL 0.57-1.25 hxwq=500) GLUCOSE RANDOM (BEAKER) 183 mg/dL 70-105 (test laip=475) CALCIUM (BEAKER) (test 7.9 mg/dL 8.4-10.2 ohry=067) EGFR (BEAKER) (test 67 mL/min/1.73 sq m ESTIMATED GFR IS NOT htyh=3560) ACCURATE CREATININE CLEARANCE IN PREDICTING GLOMERULAR FILTRATION RATE. ESTIMATED GFR IS NOT APPLICABLE FOR DIALYSIS PATIENTS. CBC W/PLT COUNT & AUTO [id number] 14:49:00 Test Item Value Reference Range Comments WHITE BLOOD CELL COUNT (BEAKER) (test hthp=917) 22.5 K/ L 3.5-10.5 RED BLOOD CELL COUNT (BEAKER) (test sken=997) 4.32 M/ L 4.63-6.08 HEMOGLOBIN (BEAKER) (test zsim=433) 11.4 GM/DL 13.7-17.5 HEMATOCRIT (BEAKER) (test vxer=436) 36.0 % 40.1-51.0 MEAN CORPUSCULAR VOLUME (BEAKER) (test prmj=034) 83.3 fL 79.0-92.2 MEAN CORPUSCULAR HEMOGLOBIN (BEAKER) (test 26.4 pg 25.7-32.2 nklu=582) MEAN CORPUSCULAR HEMOGLOBIN CONC (BEAKER) (test 31.7 GM/DL 32.3-36.5 tjhu=969) RED CELL DISTRIBUTION WIDTH (BEAKER) (test 13.8 % 11.6-14.4 sdoe=132) PLATELET COUNT (BEAKER) (test yngr=406) 182 K/CU MM 150-450 MEAN PLATELET VOLUME (BEAKER) (test ifpi=953) 11.0 fL 9.4-12.4 NUCLEATED RED BLOOD CELLS (BEAKER) (test 0 /100 WBC 0-0 oudx=523) (CELLAVISION MANUAL DIFF)2018-12-15 14:49:00 Test Item Value Reference Range Comments NEUTROPHILS - REL (CELLAVISION)(BEAKER) (test 93 % svma=5377) LYMPHOCYTES - REL (CELLAVISION)(BEAKER) (test 2 % bxhk=8669) MONOCYTES - REL (CELLAVISION)(BEAKER) (test 2 % yrbs=6596) MYELOCYTES - REL (CELLAVISION)(BEAKER) (test 1 % 0-0 wulz=9571) BANDS - REL (CELLAVISION)(BEAKER) (test 2 % 0-10 grpv=7826) NEUTROPHILS - ABS (CELLAVISION)(BEAKER) (test 20.93 K/ul 1.78-5.38 lfrz=2615) LYMPHOCYTES - ABS (CELLAVISION)(BEAKER) (test 0.45 K/ul 1.32-3.57 mera=8945) MONOCYTES - ABS (CELLAVISION)(BEAKER) (test 0.45 K/uL 0.30-0.82 ffsi=0976) MYELOCYTES-ABS (CELLAVISION)(BEAKER) (test 0.23 K/uL 0.00-0.00 avaz=9038) BANDS - ABS (CELLAVISION)(BEAKER) (test 0.45 K/uL 0.00-0.80 zwto=3757) TOTAL COUNTED (BEAKER) (test rtef=7620) 100 WBC MORPHOLOGY (BEAKER) (test jwsy=292) Normal PLT MORPHOLOGY (BEAKER) (test mtgm=084) Normal ANISOCYTOSIS (BEAKER) (test zsqs=727) 2+ moderate MICROCYTES (BEAKER) (test spii=868) 2+ moderate POIKILOCYTES (BEAKER) (test vovo=661) 1+ few ELLIPTOCYTES (BEAKER) (test ohyd=465) 1+ few ARTIFACT (CELLAVISION)(BEAKER) (test ulev=1874) Present PLATELET CONCENTRATION (CELLAVISION)(BEAKER) Adequate (test kuym=1325) Received comment: User comments: Slide comments:RAD, CHEST, 1 VIEW, NON [id number] 14:44:00Reason for exam:->post opShould this be performed at the bedside?->YesFINAL REPORT AP chest HISTORY: Postoperative. COMPARISON: 12/14/2018. IMPRESSION: Interval sternotomy. Mediastinal and pleural drains present. The tracheal tube appears in satisfactory position. Right IJ pulmonary artery catheter with tip near pulmonary outflow tract. Heart size within normal limits. Left basilar opacity suggestive of atelectasis. No pneumothorax. Signed: Serjio Lawrence MDReport Verified Date/Time: 12/15/2018 14:44:04 Reading Location: [facility] Mammo Reading Room LACTIC ACID, [id number] 14:41:00 Test Item Value Reference Range Comments LACTATE BLOOD ARTERIAL (2) (BEAKER) (test 1.2 mmol/L 0.5-2.2 lboi=7778) [id number] 14:39:00 Test Item Value Reference Range Comments MAGNESIUM (BEAKER) (test jzdp=941) 1.9 mg/dL 1.6-2.6 OXYGEN SATURATION, [id number] 14:20:00 Test Item Value Reference Range Comments O2 SATURATION (MEASURED) (BEAKER) (test isvu=9364) 62.8 % SODIUM NA-STAT [id number] 14:17:00 Test Item Value Reference Range Comments SODIUM (BEAKER) (test lgcf=079) 136 meq/L 135-148 POTASSIUM-STAT [id number] 14:17:00 Test Item Value Reference Range Comments POTASSIUM (BEAKER) (test uamb=706) 4.0 meq/L 3.6-5.5 BLOOD GAS, [id number] 14:17:00 Test Item Value Reference Range Comments PH ARTERIAL (BEAKER) (test raka=825) 7.38 7.35-7.45 PCO2 ARTERIAL (BEAKER) (test xvwp=145) 45 mmHg 35-45 PO2 ARTERIAL (BEAKER) (test lcoh=438) 128 mmHg 80-90 O2 SATURATION ARTERIAL (BEAKER) (test jwai=136) 98.6 % 96.0-97.0 HCO3 ARTERIAL (BEAKER) (test fwyt=933) 27 mmol/L 21-29 BASE EXCESS ARTERIAL (BEAKER) (test edpc=461) 0.6 mmol/L -2.0-3.0 PATIENT TEMPERATURE (BEAKER) (test vznd=0207) 35.7 C FIO2 (BEAKER) (test sied=1447) 50.0 % GLUCOSE-STAT [id number] 14:17:00 Test Item Value Reference Range Comments GLUCOSE RANDOM (BEAKER) (test dogh=864) 181 mg/dL 70-110 HGB/HCT (H&H) - STAT [id number] 14:17:00 Test Item Value Reference Range Comments HEMOGLOBIN (BEAKER) (test ssji=525) 11.5 g/dL 13.0-16.8 HEMATOCRIT (BEAKER) (test jxvp=770) 34.0 % 40.0-50.0 [id number] 13:03:00 Test Item Value Reference Range Comments ACTIVATED CLOTTING TIME 114 sec TESTED AT [facility] [address] [place] [address] (BEAKER) (test eomp=889) [place] [address] [id number] 13:02:00 Test Item Value Reference Range Comments ACTIVATED CLOTTING TIME 472 sec TESTED AT [address] ([facility]) (test cjko=203) [place] [address] [id number] 13:02:00 Test Item Value Reference Range Comments ACTIVATED CLOTTING TIME 378 sec TESTED AT [address] ([facility]) (test hpsi=960) [place] [address] [id number] 13:02:00 Test Item Value Reference Range Comments ACTIVATED CLOTTING TIME 428 sec TESTED AT [address] ([facility]) (test tojd=881) [place] [address] [id number] 13:02:00 Test Item Value Reference Range Comments ACTIVATED CLOTTING TIME 483 sec TESTED AT [address] ([facility]) (test fuwn=291) [place] [address] [id number] 12:13:00 Test Item Value Reference Range Comments FIBRINOGEN LEVEL ([facility]) (test pfdg=417) 354 mg/dl 225-434 [id number] 12:13:00 Test Item Value Reference Range Comments PARTIAL THROMBOPLASTIN TIME ([facility]) (test 46.7 seconds 22.5-36.0 xtxe=301) PROTHROMBIN [id number] 12:12:00 Test Item Value Reference Range Comments PROTIME ([facility]) (test xfrh=408) 17.7 seconds 11.9-14.2 INR ([facility]) (test muis=655) 1.5 <=5.9 Effective 12/03/2018: PT Reference Range ChangeNew: 11.9-14.2 Previous: 11.7- 14.7RECOMMENDED COUMADIN/WARFARIN INR THERAPY RANGESSTANDARD DOSE: 2.0-3.0 Includes: PROPHYLAXIS for venous thrombosis, systemic embolization; TREATMENT for venous thrombosis and/or pulmonary embolus.HIGH RISK: Target INR is2.5-3.5 for patients wiht mechanical heart valves.PLATELET [id number] 12:05:00 Test Item Value Reference Range Comments PLATELET COUNT ([facility]) (test rdry=971) 206 K/CU MM 150-450 POTASSIUM-STAT [id number] 11:59:00 Test Item Value Reference Range Comments POTASSIUM (BEAKER) (test mann=979) 4.6 meq/L 3.6-5.5 CALCIUM, [id number] 11:59:00 Test Item Value Reference Range Comments CALCIUM IONIZED (BEAKER) (test bsvo=018) 1.14 mmol/L 1.12-1.27 PH, BLOOD (BEAKER) (test fjcf=8389) 7.39 BLOOD GAS, [id number] 11:59:00 Test Item Value Reference Range Comments PH ARTERIAL (BEAKER) (test lfoy=368) 7.40 7.35-7.45 PCO2 ARTERIAL (BEAKER) (test hcnf=370) 48 mmHg 35-45 PO2 ARTERIAL (BEAKER) (test cybp=826) 360 mmHg 80-90 O2 SATURATION ARTERIAL (BEAKER) (test xahu=308) 99.8 % 96.0-97.0 HCO3 ARTERIAL (BEAKER) (test edbx=038) 29 mmol/L 21-29 BASE EXCESS ARTERIAL (BEAKER) (test wotd=240) 3.4 mmol/L -2.0-3.0 PATIENT TEMPERATURE (BEAKER) (test brlr=8970) 36.0 C FIO2 (BEAKER) (test plfz=5452) 100.0 % SODIUM NA-STAT [id number] 11:59:00 Test Item Value Reference Range Comments SODIUM (BEAKER) (test yqoe=972) 133 meq/L 135-148 GLUCOSE-STAT [id number] 11:59:00 Test Item Value Reference Range Comments GLUCOSE RANDOM (BEAKER) (test hyrm=251) 234 mg/dL 70-110 HGB/HCT (H&H) - STAT [id number] 11:59:00 Test Item Value Reference Range Comments HEMOGLOBIN (BEAKER) (test fluu=748) 11.6 g/dL 13.0-16.8 HEMATOCRIT (BEAKER) (test tfpm=658) 34.0 % 40.0-50.0 POCT-GLUCOSE [id number] 11:22:00 Test Item Value Reference Range Comments POC-GLUCOSE METER (BEAKER) 133 mg/dL 70-110 TESTED AT [facility] [address] [facility] (test llmd=9653) [facility] [address] BLOOD GAS, [id number] 11:20:00 Test Item Value Reference Range Comments PH ARTERIAL (BEAKER) (test bqhn=972) 7.44 7.35-7.45 PCO2 ARTERIAL (BEAKER) (test eygt=555) 46 mmHg 35-45 PO2 ARTERIAL (BEAKER) (test vkdg=568) 185 mmHg 80-90 O2 SATURATION ARTERIAL (BEAKER) (test yipd=570) 99.3 % 96.0-97.0 HCO3 ARTERIAL (BEAKER) (test cluk=664) 31 mmol/L 21-29 BASE EXCESS ARTERIAL (BEAKER) (test rbyk=705) 5.7 mmol/L -2.0-3.0 PATIENT TEMPERATURE (BEAKER) (test pnlt=0505) 36.6 C FIO2 (BEAKER) (test rood=9541) 75.0 % SODIUM NA-STAT [id number] 11:20:00 Test Item Value Reference Range Comments SODIUM (BEAKER) (test oeks=194) 132 meq/L 135-148 GLUCOSE-STAT [id number] 11:20:00 Test Item Value Reference Range Comments GLUCOSE RANDOM (BEAKER) (test kcpm=284) 205 mg/dL 70-110 HGB/HCT (H&H) - STAT [id number] 11:20:00 Test Item Value Reference Range Comments HEMOGLOBIN (BEAKER) (test wcyh=657) 10.9 g/dL 13.0-16.8 HEMATOCRIT (BEAKER) (test pvhs=456) 32.0 % 40.0-50.0 POTASSIUM-STAT [id number] 11:19:00 Test Item Value Reference Range Comments POTASSIUM (BEAKER) (test yleu=803) 5.2 meq/L 3.6-5.5 BLOOD GAS, [id number] 11:00:00 Test Item Value Reference Range Comments PH ARTERIAL (BEAKER) (test xcgn=082) 7.44 7.35-7.45 PCO2 ARTERIAL (BEAKER) (test tlvd=826) 44 mmHg 35-45 PO2 ARTERIAL (BEAKER) (test hnhs=320) 248 mmHg 80-90 O2 SATURATION ARTERIAL (BEAKER) (test myym=900) 99.6 % 96.0-97.0 HCO3 ARTERIAL (BEAKER) (test zwpa=560) 30 mmol/L 21-29 BASE EXCESS ARTERIAL (BEAKER) (test jjir=343) 5.0 mmol/L -2.0-3.0 PATIENT TEMPERATURE (BEAKER) (test yhnp=6457) 36.6 C FIO2 (BEAKER) (test yzrl=7788) 70.0 % GLUCOSE-STAT [id number] 11:00:00 Test Item Value Reference Range Comments GLUCOSE RANDOM (BEAKER) (test qbit=758) 180 mg/dL 70-110 SODIUM NA-STAT [id number] 11:00:00 Test Item Value Reference Range Comments SODIUM (BEAKER) (test uest=496) 131 meq/L 135-148 HGB/HCT (H&H) - STAT [id number] 11:00:00 Test Item Value Reference Range Comments HEMOGLOBIN (BEAKER) (test yocs=381) 9.4 g/dL 13.0-16.8 HEMATOCRIT (BEAKER) (test jwwx=418) 28.0 % 40.0-50.0 POTASSIUM-STAT [id number] 10:58:00 Test Item Value Reference Range Comments POTASSIUM (BEAKER) (test llzs=503) 5.0 meq/L 3.6-5.5 BLOOD GAS, [id number] 10:32:00 Test Item Value Reference Range Comments PH ARTERIAL (BEAKER) (test nvlm=270) 7.37 7.35-7.45 PCO2 ARTERIAL (BEAKER) (test afkg=837) 50 mmHg 35-45 PO2 ARTERIAL (BEAKER) (test vmav=271) 433 mmHg 80-90 O2 SATURATION ARTERIAL (BEAKER) (test ifpl=999) 99.8 % 96.0-97.0 HCO3 ARTERIAL (BEAKER) (test pljn=077) 29 mmol/L 21-29 BASE EXCESS ARTERIAL (BEAKER) (test zfyw=532) 2.6 mmol/L -2.0-3.0 PATIENT TEMPERATURE (BEAKER) (test dkfh=6859) 35.5 C FIO2 (BEAKER) (test yrex=5071) 85.0 % SODIUM NA-STAT [id number] 10:32:00 Test Item Value Reference Range Comments SODIUM (BEAKER) (test drlq=286) 127 meq/L 135-148 GLUCOSE-STAT [id number] 10:32:00 Test Item Value Reference Range Comments GLUCOSE RANDOM (BEAKER) (test yova=071) 132 mg/dL 70-110 HGB/HCT (H&H) - STAT [id number] 10:32:00 Test Item Value Reference Range Comments HEMOGLOBIN (BEAKER) (test ecqv=819) 10.2 g/dL 13.0-16.8 HEMATOCRIT (BEAKER) (test rfyv=188) 30.0 % 40.0-50.0 POTASSIUM-STAT [id number] 10:31:00 Test Item Value Reference Range Comments POTASSIUM (BEAKER) (test zobu=397) 3.9 meq/L 3.6-5.5 CALCIUM, [id number] 08:54:00 Test Item Value Reference Range Comments CALCIUM IONIZED (BEAKER) (test zxhz=864) 1.11 mmol/L 1.12-1.27 PH, BLOOD (BEAKER) (test sjji=4566) 7.48 BLOOD GAS, [id number] 08:54:00 Test Item Value Reference Range Comments PH ARTERIAL (BEAKER) (test xuzb=921) 7.50 7.35-7.45 PCO2 ARTERIAL (BEAKER) (test cdac=326) 38 mmHg 35-45 PO2 ARTERIAL (BEAKER) (test nvep=507) 306 mmHg 80-90 O2 SATURATION ARTERIAL (BEAKER) (test dgpk=329) 99.7 % 96.0-97.0 HCO3 ARTERIAL (BEAKER) (test ecla=933) 29 mmol/L 21-29 BASE EXCESS ARTERIAL (BEAKER) (test zlex=509) 5.1 mmol/L -2.0-3.0 PATIENT TEMPERATURE (BEAKER) (test gpzo=5313) 35.8 C FIO2 (BEAKER) (test bhvv=8761) 100.0 % SODIUM NA-STAT [id number] 08:54:00 Test Item Value Reference Range Comments SODIUM (BEAKER) (test yeka=111) 134 meq/L 135-148 HGB/HCT (H&H) - STAT [id number] 08:54:00 Test Item Value Reference Range Comments HEMOGLOBIN (BEAKER) (test tvxf=577) 13.0 g/dL 13.0-16.8 HEMATOCRIT (BEAKER) (test csya=864) 38.0 % 40.0-50.0 GLUCOSE-STAT [id number] 08:53:00 Test Item Value Reference Range Comments GLUCOSE RANDOM (BEAKER) (test wqrx=294) 109 mg/dL 70-110 POTASSIUM-STAT [id number] 08:53:00 Test Item Value Reference Range Comments POTASSIUM (BEAKER) (test ksqx=101) 4.0 meq/L 3.6-5.5 [id number] 02:19:00 Test Item Value Reference Range Comments PARTIAL THROMBOPLASTIN TIME (BEAKER) (test 40.0 seconds 22.5-36.0 fllj=214) [id number] 01:46:00 Test Item Value Reference Range Comments PHOSPHORUS (BEAKER) (test dodl=219) 4.5 mg/dL 2.3-4.7 [id number] 01:46:00 Test Item Value Reference Range Comments MAGNESIUM (BEAKER) (test loky=990) 1.9 mg/dL 1.6-2.6 BASIC METABOLIC [id number] 01:46:00 Test Item Value Reference Range Comments SODIUM (BEAKER) (test 137 meq/L 136-145 glkq=117) POTASSIUM (BEAKER) (test 3.8 meq/L 3.5-5.1 ibyp=923) CHLORIDE (BEAKER) (test 96 meq/L 98-107 zjuq=539) CO2 (BEAKER) (test 32 meq/L 22-29 asry=075) BLOOD UREA NITROGEN 40 mg/dL 7-21 (BEAKER) (test phlr=127) CREATININE (BEAKER) (test 1.40 mg/dL 0.57-1.25 eggv=545) GLUCOSE RANDOM (BEAKER) 120 mg/dL 70-105 (test yznu=902) CALCIUM (BEAKER) (test 9.1 mg/dL 8.4-10.2 usjk=846) EGFR (BEAKER) (test 50 mL/min/1.73 sq m ESTIMATED GFR IS NOT nddg=1700) ACCURATE CREATININE CLEARANCE IN PREDICTING GLOMERULAR FILTRATION RATE. ESTIMATED GFR IS NOT APPLICABLE FOR DIALYSIS PATIENTS. CBC (HEMOGRAM ONLY)2018-12-15 01:20:00 Test Item Value Reference Range Comments WHITE BLOOD CELL COUNT (BEAKER) (test bpdk=515) 13.1 K/ L 3.5-10.5 RED BLOOD CELL COUNT (BEAKER) (test baiv=423) 5.10 M/ L 4.63-6.08 HEMOGLOBIN (BEAKER) (test cggn=087) 13.4 GM/DL 13.7-17.5 HEMATOCRIT (BEAKER) (test kqkg=254) 41.4 % 40.1-51.0 MEAN CORPUSCULAR VOLUME (BEAKER) (test dbbl=369) 81.2 fL 79.0-92.2 MEAN CORPUSCULAR HEMOGLOBIN (BEAKER) (test 26.3 pg 25.7-32.2 uexj=250) MEAN CORPUSCULAR HEMOGLOBIN CONC (BEAKER) (test 32.4 GM/DL 32.3-36.5 mymt=029) RED CELL DISTRIBUTION WIDTH (BEAKER) (test 13.7 % 11.6-14.4 pmdq=900) PLATELET COUNT (BEAKER) (test ipav=930) 280 K/CU MM 150-450 MEAN PLATELET VOLUME (BEAKER) (test fqtz=180) 10.5 fL 9.4-12.4 NUCLEATED RED BLOOD CELLS (BEAKER) (test 0 /100 WBC 0-0 uyyg=471) POCT-GLUCOSE [id number] 21:22:00 Test Item Value Reference Range Comments POC-GLUCOSE METER (BEAKER) 152 mg/dL 70-110 TESTED AT [address] (test zvfn=0594) [place] [address] POCT-GLUCOSE [id number] 18:20:00 Test Item Value Reference Range Comments POC-GLUCOSE METER (BEAKER) 129 mg/dL 70-110 TESTED AT [address] (test tqdm=3796) [place] [address] BLOOD [id number] 14:01:00 Test Item Value Reference Range Comments CULTURE (BEAKER) (test yumc=3248) No growth in 5 days BLOOD [id number] 14:01:00 Test Item Value Reference Range Comments CULTURE (BEAKER) (test tgae=8582) No growth in 5 days RAD, CHEST, 1 VIEW, NON [id number] 13:18:00Reason for exam:->coughFINAL REPORT AP view of the chest dated 12/14/2018 COMPARISON: December 11, 2018 CLINICAL INFORMATION: cough Comment: Heart is normal in size. Pulmonary vasculature is unremarkable. Subsegmental atelectasis is seen in the left lower lobe but. The rest of lungs are clear. 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 No pulmonary infiltrate or pleural effusion is present. Impression: Left lower lobe subsegmental atelectasis. Signed: Katie Salinas MDReport Verified Date/Time: 12/14/2018 13:18:23 Reading Location: [facility] B1 C013Y CT Body Reading Room POCT-GLUCOSE [id number] 11:57:00 Test Item Value Reference Range Comments POC-GLUCOSE METER (BEAKER) 143 mg/dL 70-110 TESTED AT [address] (test szom=2995) [facility] [address] POCT-GLUCOSE [id number] 08:42:00 Test Item Value Reference Range Comments POC-GLUCOSE METER (BEAKER) 114 mg/dL 70-110 TESTED AT [address] (test bnlz=7711) [facility] [address] POCT-GLUCOSE [id number] 06:57:00 Test Item Value Reference Range Comments POC-GLUCOSE METER (BEAKER) 144 mg/dL 70-110 TESTED AT [address] (test jisr=6723) [facility] [address] [id number] 06:49:00 Test Item Value Reference Range Comments PHOSPHORUS (BEAKER) (test zxrc=568) 4.8 mg/dL 2.3-4.7 [id number] 06:49:00 Test Item Value Reference Range Comments MAGNESIUM (BEAKER) (test rfva=146) 2.0 mg/dL 1.6-2.6 BASIC METABOLIC [id number] 06:49:00 Test Item Value Reference Range Comments SODIUM (BEAKER) (test 138 meq/L 136-145 vftz=371) POTASSIUM (BEAKER) (test 4.0 meq/L 3.5-5.1 ayaz=286) CHLORIDE (BEAKER) (test 96 meq/L 98-107 cwya=160) CO2 (BEAKER) (test 34 meq/L 22-29 xloa=071) BLOOD UREA NITROGEN 39 mg/dL 7-21 (BEAKER) (test qcog=304) CREATININE (BEAKER) (test 1.21 mg/dL 0.57-1.25 gokn=802) GLUCOSE RANDOM (BEAKER) 116 mg/dL 70-105 (test zzav=271) CALCIUM (BEAKER) (test 9.3 mg/dL 8.4-10.2 czqg=572) EGFR (BEAKER) (test 59 mL/min/1.73 sq m ESTIMATED GFR IS NOT qsqg=9227) ACCURATE CREATININE CLEARANCE IN PREDICTING GLOMERULAR FILTRATION RATE. ESTIMATED GFR IS NOT APPLICABLE FOR DIALYSIS PATIENTS. [id number] 06:41:00 Test Item Value Reference Range Comments PARTIAL THROMBOPLASTIN TIME (BEAKER) (test 73.4 seconds 22.5-36.0 xngo=852) CBC (HEMOGRAM ONLY)2018-12-14 06:34:00 Test Item Value Reference Range Comments WHITE BLOOD CELL COUNT (BEAKER) (test jyys=736) 11.8 K/ L 3.5-10.5 RED BLOOD CELL COUNT (BEAKER) (test vjve=494) 5.42 M/ L 4.63-6.08 HEMOGLOBIN (BEAKER) (test iyup=357) 14.1 GM/DL 13.7-17.5 HEMATOCRIT (BEAKER) (test dkyd=245) 45.2 % 40.1-51.0 MEAN CORPUSCULAR VOLUME (BEAKER) (test psai=546) 83.4 fL 79.0-92.2 MEAN CORPUSCULAR HEMOGLOBIN (BEAKER) (test 26.0 pg 25.7-32.2 pods=791) MEAN CORPUSCULAR HEMOGLOBIN CONC (BEAKER) (test 31.2 GM/DL 32.3-36.5 cquy=451) RED CELL DISTRIBUTION WIDTH (BEAKER) (test 13.8 % 11.6-14.4 fqiz=228) PLATELET COUNT (BEAKER) (test hkbl=700) 282 K/CU MM 150-450 MEAN PLATELET VOLUME (BEAKER) (test vrid=217) 10.9 fL 9.4-12.4 NUCLEATED RED BLOOD CELLS (BEAKER) (test 0 /100 WBC 0-0 fsxt=826) [id number] 00:03:00 Test Item Value Reference Range Comments PARTIAL THROMBOPLASTIN TIME (BEAKER) (test 75.0 seconds 22.5-36.0 uidw=186) POCT-GLUCOSE [id number] 22:24:00 Test Item Value Reference Range Comments POC-GLUCOSE METER (BEAKER) 136 mg/dL 70-110 TESTED AT [address] (test sjzm=4933) [place] [address] [id number] 16:32:00 Test Item Value Reference Range Comments PARTIAL THROMBOPLASTIN TIME (BEAKER) (test 100.4 seconds 22.5-36.0 gmnl=765) POCT-GLUCOSE [id number] 09:13:00 Test Item Value Reference Range Comments POC-GLUCOSE METER (BEAKER) 169 mg/dL 70-110 TESTED AT [address] (test dypi=9469) [place] [address] [id number] 09:04:00 Test Item Value Reference Range Comments PARTIAL THROMBOPLASTIN TIME (BEAKER) (test 105.9 seconds 22.5-36.0 dkmo=383) SPUTUM CULTURE + GRAM [id number] 08:31:00 Test Item Value Reference Range Comments CULTURE (BEAKER) (test 4+ Normal respiratory deandra xjxu=9934) present GRAM STAIN RESULT (BEAKER) 1+ WBCs (test scnw=5462) GRAM STAIN RESULT (BEAKER) 0-5 epithelial cells (test iidu=80666) GRAM STAIN RESULT (BEAKER) <1+ gram negative rods (test nani=785040) GRAM STAIN RESULT (BEAKER) <1+ gram positive cocci in pairs (test zaoc=940532) 3+ NormaPOCT-GLUCOSE [id number] 06:02:00 Test Item Value Reference Range Comments POC-GLUCOSE METER (BEAKER) 192 mg/dL 70-110 TESTED AT [address] (test ofcb=3441) [place] [address] [id number] 05:34:00 Test Item Value Reference Range Comments PHOSPHORUS (BEAKER) (test uxce=858) 4.3 mg/dL 2.3-4.7 [id number] 05:34:00 Test Item Value Reference Range Comments MAGNESIUM (BEAKER) (test crpo=623) 2.0 mg/dL 1.6-2.6 BASIC METABOLIC [id number] 05:34:00 Test Item Value Reference Range Comments SODIUM (BEAKER) (test 141 meq/L 136-145 kknh=958) POTASSIUM (BEAKER) (test 4.1 meq/L 3.5-5.1 cywp=367) CHLORIDE (BEAKER) (test 97 meq/L 98-107 ompv=485) CO2 (BEAKER) (test 33 meq/L 22-29 cxec=235) BLOOD UREA NITROGEN 36 mg/dL 7-21 (BEAKER) (test extd=534) CREATININE (BEAKER) (test 1.19 mg/dL 0.57-1.25 ezyj=580) GLUCOSE RANDOM (BEAKER) 115 mg/dL 70-105 (test mzzt=569) CALCIUM (BEAKER) (test 9.5 mg/dL 8.4-10.2 iozu=692) EGFR (BEAKER) (test 60 mL/min/1.73 sq m ESTIMATED GFR IS NOT pwdd=2158) ACCURATE CREATININE CLEARANCE IN PREDICTING GLOMERULAR FILTRATION RATE. ESTIMATED GFR IS NOT APPLICABLE FOR DIALYSIS PATIENTS. CBC (HEMOGRAM ONLY)2018-12-13 04:50:00 Test Item Value Reference Range Comments WHITE BLOOD CELL COUNT (BEAKER) (test xpes=393) 14.2 K/ L 3.5-10.5 RED BLOOD CELL COUNT (BEAKER) (test kbsk=913) 5.34 M/ L 4.63-6.08 HEMOGLOBIN (BEAKER) (test ercc=275) 13.9 GM/DL 13.7-17.5 HEMATOCRIT (BEAKER) (test xkwb=300) 43.8 % 40.1-51.0 MEAN CORPUSCULAR VOLUME (BEAKER) (test fexi=869) 82.0 fL 79.0-92.2 MEAN CORPUSCULAR HEMOGLOBIN (BEAKER) (test 26.0 pg 25.7-32.2 fqmu=468) MEAN CORPUSCULAR HEMOGLOBIN CONC (BEAKER) (test 31.7 GM/DL 32.3-36.5 clto=525) RED CELL DISTRIBUTION WIDTH (BEAKER) (test 13.7 % 11.6-14.4 yczi=463) PLATELET COUNT (BEAKER) (test itzb=645) 307 K/CU MM 150-450 MEAN PLATELET VOLUME (BEAKER) (test spfr=304) 11.1 fL 9.4-12.4 NUCLEATED RED BLOOD CELLS (BEAKER) (test 0 /100 WBC 0-0 caqb=093) [id number] 01:19:00 Test Item Value Reference Range Comments PARTIAL THROMBOPLASTIN TIME (BEAKER) (test 100.2 seconds 22.5-36.0 whyb=495) POCT-GLUCOSE [id number] 00:15:00 Test Item Value Reference Range Comments POC-GLUCOSE METER (BEAKER) 171 mg/dL 70-110 TESTED AT [address] (test lxkc=3786) [place] [address] BASIC METABOLIC [id number] 21:26:00 Test Item Value Reference Range Comments SODIUM (BEAKER) (test 139 meq/L 136-145 xihh=484) POTASSIUM (BEAKER) (test 4.6 meq/L 3.5-5.1 Specimen slightly lalz=973) hemolyzed CHLORIDE (BEAKER) (test 94 meq/L 98-107 slmf=893) CO2 (BEAKER) (test 32 meq/L 22-29 vnpv=981) BLOOD UREA NITROGEN 39 mg/dL 7-21 (BEAKER) (test bshm=509) CREATININE (BEAKER) (test 1.54 mg/dL 0.57-1.25 Specimen slightly ftil=224) hemolyzed GLUCOSE RANDOM (BEAKER) 328 mg/dL 70-105 (test ylkb=681) CALCIUM (BEAKER) (test 9.7 mg/dL 8.4-10.2 cczr=424) EGFR (BEAKER) (test 45 mL/min/1.73 sq m ESTIMATED GFR IS NOT fmzd=5068) ACCURATE CREATININE CLEARANCE IN PREDICTING GLOMERULAR FILTRATION RATE. ESTIMATED GFR IS NOT APPLICABLE FOR DIALYSIS PATIENTS. [id number] 18:15:00 Test Item Value Reference Range Comments PARTIAL THROMBOPLASTIN TIME (BEAKER) (test 105.1 seconds 22.5-36.0 pcsf=644) POCT-GLUCOSE [id number] 16:30:00 Test Item Value Reference Range Comments POC-GLUCOSE METER (BEAKER) 208 mg/dL 70-110 TESTED AT [address] (test gbpc=9486) [place] [address] [id number] 10:28:00 Test Item Value Reference Range Comments PARTIAL THROMBOPLASTIN TIME (BEAKER) (test 104.3 seconds 22.5-36.0 sosn=910) BASIC METABOLIC [id number] 09:13:00 Test Item Value Reference Range Comments SODIUM (BEAKER) (test 139 meq/L 136-145 jpjy=752) POTASSIUM (BEAKER) (test 3.8 meq/L 3.5-5.1 niqc=410) CHLORIDE (BEAKER) (test 97 meq/L 98-107 fkru=318) CO2 (BEAKER) (test 30 meq/L 22-29 nrub=557) BLOOD UREA NITROGEN 36 mg/dL 7-21 (BEAKER) (test zfmu=256) CREATININE (BEAKER) (test 1.44 mg/dL 0.57-1.25 rrgx=041) GLUCOSE RANDOM (BEAKER) 183 mg/dL 70-105 (test nrgz=059) CALCIUM (BEAKER) (test 9.2 mg/dL 8.4-10.2 hgtt=457) EGFR (BEAKER) (test 48 mL/min/1.73 sq m ESTIMATED GFR IS NOT nimg=0334) ACCURATE CREATININE CLEARANCE IN PREDICTING GLOMERULAR FILTRATION RATE. ESTIMATED GFR IS NOT APPLICABLE FOR DIALYSIS PATIENTS. POCT-GLUCOSE [id number] 07:38:00 Test Item Value Reference Range Comments POC-GLUCOSE METER (BEAKER) 111 mg/dL 70-110 TESTED AT [address] (test doqi=3582) [facility] [address] B-TYPE NATRIURETIC FACTOR (BNP)2018-12-12 03:24:00 Test Item Value Reference Range Comments B-TYPE NATRIURETIC PEPTIDE (BEAKER) (test 807 pg/mL 0-100 oqiy=483) [id number] 03:20:00 Test Item Value Reference Range Comments PHOSPHORUS (BEAKER) (test onze=841) 3.5 mg/dL 2.3-4.7 [id number] 03:20:00 Test Item Value Reference Range Comments MAGNESIUM (BEAKER) (test emhb=693) 2.2 mg/dL 1.6-2.6 [id number] 03:04:00 Test Item Value Reference Range Comments PARTIAL THROMBOPLASTIN TIME (BEAKER) (test 80.2 seconds 22.5-36.0 ciye=540) CBC (HEMOGRAM ONLY)2018-12-12 02:55:00 Test Item Value Reference Range Comments WHITE BLOOD CELL COUNT (BEAKER) (test uyve=197) 14.5 K/ L 3.5-10.5 RED BLOOD CELL COUNT (BEAKER) (test lpac=463) 5.55 M/ L 4.63-6.08 HEMOGLOBIN (BEAKER) (test ppzj=555) 14.2 GM/DL 13.7-17.5 HEMATOCRIT (BEAKER) (test oebe=571) 45.1 % 40.1-51.0 MEAN CORPUSCULAR VOLUME (BEAKER) (test yyym=270) 81.3 fL 79.0-92.2 MEAN CORPUSCULAR HEMOGLOBIN (BEAKER) (test 25.6 pg 25.7-32.2 ekvb=861) MEAN CORPUSCULAR HEMOGLOBIN CONC (BEAKER) (test 31.5 GM/DL 32.3-36.5 wcdg=287) RED CELL DISTRIBUTION WIDTH (BEAKER) (test 13.5 % 11.6-14.4 mwbd=058) PLATELET COUNT (BEAKER) (test vbxw=881) 332 K/CU MM 150-450 MEAN PLATELET VOLUME (BEAKER) (test thmz=377) 10.4 fL 9.4-12.4 NUCLEATED RED BLOOD CELLS (BEAKER) (test 0 /100 WBC 0-0 kwzn=009) POCT-GLUCOSE [id number] 22:23:00 Test Item Value Reference Range Comments POC-GLUCOSE METER (BEAKER) 252 mg/dL 70-110 TESTED AT [facility] [address] [facility] (test oiys=2237) [facility] [address] BASIC METABOLIC [id number] 21:06:00 Test Item Value Reference Range Comments SODIUM (BEAKER) (test 136 meq/L 136-145 ynin=538) POTASSIUM (BEAKER) (test 4.2 meq/L 3.5-5.1 Specimen slightly vfed=404) hemolyzed CHLORIDE (BEAKER) (test 95 meq/L 98-107 zdjl=157) CO2 (BEAKER) (test 31 meq/L 22-29 johi=504) BLOOD UREA NITROGEN 38 mg/dL 7-21 (BEAKER) (test gzzp=302) CREATININE (BEAKER) (test 1.55 mg/dL 0.57-1.25 Specimen slightly dhio=335) hemolyzed GLUCOSE RANDOM (BEAKER) 331 mg/dL 70-105 (test egmk=721) CALCIUM (BEAKER) (test 9.0 mg/dL 8.4-10.2 qdlx=718) EGFR (BEAKER) (test 44 mL/min/1.73 sq m ESTIMATED GFR IS NOT vbce=2855) ACCURATE CREATININE CLEARANCE IN PREDICTING GLOMERULAR FILTRATION RATE. ESTIMATED GFR IS NOT APPLICABLE FOR DIALYSIS PATIENTS. [id number] 19:00:00 Test Item Value Reference Range Comments PARTIAL THROMBOPLASTIN TIME (BEAKER) (test 42.7 seconds 22.5-36.0 jucf=139) PET, CARDIAC PET, [id number] 18:10:00Reason for exam:->multivessel CAD; pre-ACBFINAL REPORT PROCEDURE: MYOCARDIAL METABOLISM PET IMAGING with Rest MYOCARDIAL PERFUSION PET IMAGING\XA9\[facility] CODE: [id number], [id number]: CAD, preoperative viability assessment for ACB PROTOCOL: [...] rest show severe diffuse decrease in LV contractility.LVEF at rest is 18%. METABOLIC IMAGING FINDINGS: [...] metabolism. There is a mild severity, medium size , defect of glucose metabolism in the inferior LV. 6. Combination of perfusion and metabolic images show the LV to be viable. 7. Extracardiac tracer distribution is normal. 8. No prior study for comparison. Signed: Clara Bar MDReport Verified Date/Time: 12/11/2018 18:10:46 Reading Location: [address] [id number] [facility] Reading Room POCT-GLUCOSE [id number] 17:18:00 Test Item Value Reference Range Comments POC-GLUCOSE METER (BEAKER) 141 mg/dL 70-110 TESTED AT [address] (test baku=7018) [facility] [address] POCT-GLUCOSE [id number] 15:52:00 Test Item Value Reference Range Comments POC-GLUCOSE METER (BEAKER) 222 mg/dL 70-110 TESTED AT [address] (test tivj=4393) [facility] [address] POCT-GLUCOSE [id number] 14:37:00 Test Item Value Reference Range Comments POC-GLUCOSE METER (BEAKER) 186 mg/dL 70-110 TESTED AT [address] (test mzea=8459) [facility] [address] POCT-GLUCOSE [id number] 12:04:00 Test Item Value Reference Range Comments POC-GLUCOSE METER (BEAKER) 134 mg/dL 70-110 TESTED AT [address] (test egzv=4725) [facility] [address] CT, CHEST, WITHOUT [id number] 11:34:00FINAL REPORT INDICATION: Hypoxemia and shortness of breath. COMPARISON:Chest radiographs December 11, 2018 and December 08, 2018 TECHNIQUE: Chest CT exam WITHOUT intravenous contrast. The exam was performed according to our department dose- optimization protocol, which includes automated exposure control, adjustments of mA and kV according to patient size. Iterative reconstructions are also sometimes employed. FINDINGS:Superimposed on emphysema is a consolidative or groundglass [...] is noncalcified pleural nodularity measuring up to 7mm in thickness. The heart is normal in [...] six months is recommended. Signed: Jarred Obrien MDReport Verified Date/Time : 12/11/2018 11:34:47 Reading Location: [facility] Diagnostic Imaging Reading Room - [place] [id number] Electronically signed by: JARRED OBRIEN M.D. on 2018 11:34 AMPOCT-GLUCOSE [id number] 07:31:00 Test Item Value Reference Range Comments POC-GLUCOSE METER (BEAKER) 112 mg/dL 70-110 TESTED AT [address] (test dfwr=8123) [facility] [address] TROPONIN [id number] 06:39:00 Test Item Value Reference Range Comments TROPONIN I (BEAKER) (test tevm=890) 1.07 ng/mL 0.00-0.03 Troponin I (TnI) levels must be interpreted in the context of the presenting symptoms and the clinical findings. Elevated TnI levels indicate myocardial damage, but are not specific for ischemic heart disease. Elevated TnI levels are seen in patients with other cardiac conditions (including myocarditis and congestive heart failure), and slight TnI elevations occur in patients with other conditions, including sepsis, renal failure, acidosis, acute neurological disease, and persistent tachyarrhythmia.[id number] 06:09:00 Test Item Value Reference Range Comments PHOSPHORUS (BEAKER) (test ekhi=767) 3.0 mg/dL 2.3-4.7 [id number] 06:09:00 Test Item Value Reference Range Comments MAGNESIUM (BEAKER) (test yjeu=610) 2.0 mg/dL 1.6-2.6 BASIC METABOLIC [id number] 06:09:00 Test Item Value Reference Range Comments SODIUM (BEAKER) (test 139 meq/L 136-145 ribk=578) POTASSIUM (BEAKER) (test 3.8 meq/L 3.5-5.1 vwsp=277) CHLORIDE (BEAKER) (test 99 meq/L 98-107 oovi=546) CO2 (BEAKER) (test 32 meq/L 22-29 aowg=786) BLOOD UREA NITROGEN 34 mg/dL 7-21 (BEAKER) (test xlmu=175) CREATININE (BEAKER) (test 1.24 mg/dL 0.57-1.25 mgwk=599) GLUCOSE RANDOM (BEAKER) 109 mg/dL 70-105 (test gfqr=783) CALCIUM (BEAKER) (test 8.7 mg/dL 8.4-10.2 appc=979) EGFR (BEAKER) (test 57 mL/min/1.73 sq m ESTIMATED GFR IS NOT lhad=8834) ACCURATE CREATININE CLEARANCE IN PREDICTING GLOMERULAR FILTRATION RATE. ESTIMATED GFR IS NOT APPLICABLE FOR DIALYSIS PATIENTS. [id number] 06:08:00 Test Item Value Reference Range Comments PHOSPHORUS (BEAKER) (test hijd=107) 3.0 mg/dL 2.3-4.7 B-TYPE NATRIURETIC FACTOR (BNP)2018-12-11 06:02:00 Test Item Value Reference Range Comments B-TYPE NATRIURETIC PEPTIDE (BEAKER) (test 745 pg/mL 0-100 yyty=814) [id number] 05:47:00 Test Item Value Reference Range Comments PARTIAL THROMBOPLASTIN TIME (BEAKER) (test 80.5 seconds 22.5-36.0 uxpz=649) CBC (HEMOGRAM ONLY)2018-12-11 05:36:00 Test Item Value Reference Range Comments WHITE BLOOD CELL COUNT (BEAKER) (test ngta=950) 14.7 K/ L 3.5-10.5 RED BLOOD CELL COUNT (BEAKER) (test lqfj=837) 5.02 M/ L 4.63-6.08 HEMOGLOBIN (BEAKER) (test fwpu=420) 13.0 GM/DL 13.7-17.5 HEMATOCRIT (BEAKER) (test djcy=183) 39.7 % 40.1-51.0 MEAN CORPUSCULAR VOLUME (BEAKER) (test lvdg=650) 79.1 fL 79.0-92.2 MEAN CORPUSCULAR HEMOGLOBIN (BEAKER) (test 25.9 pg 25.7-32.2 emap=285) MEAN CORPUSCULAR HEMOGLOBIN CONC (BEAKER) (test 32.7 GM/DL 32.3-36.5 dqwo=225) RED CELL DISTRIBUTION WIDTH (BEAKER) (test 13.4 % 11.6-14.4 fcxp=473) PLATELET COUNT (BEAKER) (test piye=241) 282 K/CU MM 150-450 MEAN PLATELET VOLUME (BEAKER) (test olvq=145) 10.7 fL 9.4-12.4 NUCLEATED RED BLOOD CELLS (BEAKER) (test 0 /100 WBC 0-0 vnol=212) RAD, CHEST, 1 VIEW, NON [id number] 04:35:00Reason for exam:->edema, opacity?Should this be performed at the bedside?->YesFINAL REPORT Chest one view. Clinical history: edema, opacity? Comparison: Chest radiograph 12/08/2018, 7:55 PM Technique: A single frontal view of the chest was obtained. Findings: The cardiomediastinal contours are stable. There are bilateral alveolar and interstitial opacities which may represent pulmonary interstitial edema and/or pneumonia, mildly decreased. There is linear scarring in the left lower lobe. There is no pleural effusion or pneumothorax. Signed: Jim Tobar Verified Date/Time: 12/11/2018 04:35:08 Reading Location : [address] ReadingRoom POCT-GLUCOSE [id number] 21:59:00 Test Item Value Reference Range Comments POC-GLUCOSE METER (BEAKER) 167 mg/dL 70-110 TESTED AT [address] (test yhxj=3498) [facility] [address] BASIC METABOLIC [id number] 21:43:00 Test Item Value Reference Range Comments SODIUM (BEAKER) (test 135 meq/L 136-145 wbko=691) POTASSIUM (BEAKER) (test 4.1 meq/L 3.5-5.1 ggmt=635) CHLORIDE (BEAKER) (test 97 meq/L 98-107 sqko=147) CO2 (BEAKER) (test 32 meq/L 22-29 khko=897) BLOOD UREA NITROGEN 37 mg/dL 7-21 (BEAKER) (test wghx=113) CREATININE (BEAKER) (test 1.50 mg/dL 0.57-1.25 wmap=195) GLUCOSE RANDOM (BEAKER) 173 mg/dL 70-105 (test cifl=241) CALCIUM (BEAKER) (test 8.7 mg/dL 8.4-10.2 kicx=255) EGFR (BEAKER) (test 46 mL/min/1.73 sq m ESTIMATED GFR IS NOT tiod=5636) ACCURATE CREATININE CLEARANCE IN PREDICTING GLOMERULAR FILTRATION RATE. ESTIMATED GFR IS NOT APPLICABLE FOR DIALYSIS PATIENTS. [id number] 21:28:00 Test Item Value Reference Range Comments PARTIAL THROMBOPLASTIN TIME (BEAKER) (test 60.6 seconds 22.5-36.0 ueif=664) BASIC METABOLIC [id number] 17:24:00 Test Item Value Reference Range Comments SODIUM (BEAKER) (test 136 meq/L 136-145 hdfn=373) POTASSIUM (BEAKER) (test 4.4 meq/L 3.5-5.1 Specimen slightly rimy=946) hemolyzed CHLORIDE (BEAKER) (test 97 meq/L 98-107 efcm=270) CO2 (BEAKER) (test 31 meq/L 22-29 pspb=270) BLOOD UREA NITROGEN 35 mg/dL 7-21 (BEAKER) (test ijgs=563) CREATININE (BEAKER) (test 1.50 mg/dL 0.57-1.25 Specimen slightly pwup=294) hemolyzed GLUCOSE RANDOM (BEAKER) 135 mg/dL 70-105 (test aroc=177) CALCIUM (BEAKER) (test 8.7 mg/dL 8.4-10.2 rypv=727) EGFR (BEAKER) (test 46 mL/min/1.73 sq m ESTIMATED GFR IS NOT kffv=4116) ACCURATE CREATININE CLEARANCE IN PREDICTING GLOMERULAR FILTRATION RATE. ESTIMATED GFR IS NOT APPLICABLE FOR DIALYSIS PATIENTS. POCT-GLUCOSE [id number] 16:32:00 Test Item Value Reference Range Comments POC-GLUCOSE METER (BEAKER) 136 mg/dL 70-110 TESTED AT [facility] [address] [facility] (test vagi=3923) [facility] [address] VANCOMYCIN LEVEL, [id number] 13:55:00 Test Item Value Reference Range Comments VANCOMYCIN TROUGH (BEAKER) (test kdaw=752) 16.8 ug/mL 10.0-20.0 [id number] 12:49:00 Test Item Value Reference Range Comments PARTIAL THROMBOPLASTIN TIME (BEAKER) (test 47.0 seconds 22.5-36.0 valb=441) POCT-GLUCOSE [id number] 11:53:00 Test Item Value Reference Range Comments POC-GLUCOSE METER (BEAKER) 161 mg/dL 70-110 TESTED AT [address] (test poqm=0177) [facility] [address] POCT-GLUCOSE [id number] 08:12:00 Test Item Value Reference Range Comments POC-GLUCOSE METER (BEAKER) 164 mg/dL 70-110 TESTED AT [address] (test aeww=1065) [place] [id number] 05:53:00 Test Item Value Reference Range Comments PROCALCITONIN (BEAKER) (test lsny=2672) < ng/mL <0.05 SEPSIS RISK (ng/mL)Low: 0.05-0.50Intermediate: 0.51-2.00High: & gt;=2.01TROPONIN [id number] 05:41:00 Test Item Value Reference Range Comments TROPONIN I (BEAKER) (test irjg=308) 0.93 ng/mL 0.00-0.03 Troponin I (TnI) levels must be interpreted in the context of the presenting symptoms and the clinical findings. Elevated TnI levels indicate myocardial damage, but are not specific for ischemic heart disease. Elevated TnI levels are seen in patients with other cardiac conditions (including myocarditis and congestive heart failure), and slight TnI elevations occur in patients with other conditions, including sepsis, renal failure, acidosis, acute neurological disease, and persistent tachyarrhythmia.B-TYPE NATRIURETIC FACTOR (BNP) 04:35:00 Test Item Value Reference Range Comments B-TYPE NATRIURETIC PEPTIDE (BEAKER) (test 814 pg/mL 0-100 rzad=782) [id number] 04:33:00 Test Item Value Reference Range Comments PHOSPHORUS (BEAKER) (test keqg=028) 4.8 mg/dL 2.3-4.7 [id number] 04:33:00 Test Item Value Reference Range Comments MAGNESIUM (BEAKER) (test xdjw=279) 2.2 mg/dL 1.6-2.6 BASIC METABOLIC [id number] 04:33:00 Test Item Value Reference Range Comments SODIUM (BEAKER) (test 135 meq/L 136-145 nnbf=164) POTASSIUM (BEAKER) (test 4.3 meq/L 3.5-5.1 odzj=172) CHLORIDE (BEAKER) (test 100 meq/L 98-107 fzgy=337) CO2 (BEAKER) (test 28 meq/L 22-29 ilcy=258) BLOOD UREA NITROGEN 24 mg/dL 7-21 (BEAKER) (test vtyi=611) CREATININE (BEAKER) (test 1.35 mg/dL 0.57-1.25 vndy=557) GLUCOSE RANDOM (BEAKER) 227 mg/dL 70-105 (test eklz=493) CALCIUM (BEAKER) (test 8.3 mg/dL 8.4-10.2 frnv=825) EGFR (BEAKER) (test 52 mL/min/1.73 sq m ESTIMATED GFR IS NOT vfme=2621) ACCURATE CREATININE CLEARANCE IN PREDICTING GLOMERULAR FILTRATION RATE. ESTIMATED GFR IS NOT APPLICABLE FOR DIALYSIS PATIENTS. LACTIC ACID, [id number] 04:25:00 Test Item Value Reference Range Comments LACTATE BLOOD VENOUS (2) (BEAKER) (test 0.6 mmol/L 0.5-2.2 fwzn=9980) CBC (HEMOGRAM ONLY)2018-12-10 03:53:00 Test Item Value Reference Range Comments WHITE BLOOD CELL COUNT (BEAKER) (test mkxb=496) 10.5 K/ L 3.5-10.5 RED BLOOD CELL COUNT (BEAKER) (test duco=520) 4.71 M/ L 4.63-6.08 HEMOGLOBIN (BEAKER) (test bcgu=445) 12.2 GM/DL 13.7-17.5 HEMATOCRIT (BEAKER) (test ndrv=948) 38.1 % 40.1-51.0 MEAN CORPUSCULAR VOLUME (BEAKER) (test qmzd=453) 80.9 fL 79.0-92.2 MEAN CORPUSCULAR HEMOGLOBIN (BEAKER) (test 25.9 pg 25.7-32.2 dyfx=047) MEAN CORPUSCULAR HEMOGLOBIN CONC (BEAKER) (test 32.0 GM/DL 32.3-36.5 mmad=722) RED CELL DISTRIBUTION WIDTH (BEAKER) (test 13.2 % 11.6-14.4 rczk=952) PLATELET COUNT (BEAKER) (test eayw=170) 239 K/CU MM 150-450 MEAN PLATELET VOLUME (BEAKER) (test dpso=028) 10.5 fL 9.4-12.4 NUCLEATED RED BLOOD CELLS (BEAKER) (test 0 /100 WBC 0-0 sbtm=331) POCT-GLUCOSE [id number] 22:31:00 Test Item Value Reference Range Comments POC-GLUCOSE METER (BEAKER) 187 mg/dL 70-110 TESTED AT [address] (test aqrj=1563) [place] [address] POCT-GLUCOSE [id number] 17:19:00 Test Item Value Reference Range Comments POC-GLUCOSE METER (BEAKER) 158 mg/dL 70-110 TESTED AT [address] (test chrg=7321) [place] [address] HEMOGLOBIN [id number] 14:57:00 Test Item Value Reference Range Comments HEMOGLOBIN A1C (BEAKER) (test bacu=452) 5.7 % 4.3-6.1 POCT-GLUCOSE [id number] 12:19:00 Test Item Value Reference Range Comments POC-GLUCOSE METER (BEAKER) 140 mg/dL 70-110 TESTED AT [address] (test pnht=2593) [place] [address] URINALYSIS W/ REFLEX URINE [id number] 11:34:00 Test Item Value Reference Range Comments COLOR (BEAKER) (test lnlg=661) Yellow CLARITY (BEAKER) (test xuqn=734) Clear SPECIFIC GRAVITY UA (BEAKER) (test vrut=978) 1.009 1.001-1.035 PH UA (BEAKER) (test jyga=471) 5.0 5.0-8.0 PROTEIN UA (BEAKER) (test vlwb=946) 20 mg/dL Negative GLUCOSE UA (BEAKER) (test ucqn=725) Negative Negative KETONES UA (BEAKER) (test ujgc=950) Negative Negative BILIRUBIN UA (BEAKER) (test zeth=436) Negative Negative BLOOD UA (BEAKER) (test nicr=561) Moderate Negative NITRITE UA (BEAKER) (test wfwm=292) Negative Negative LEUKOCYTE ESTERASE UA (BEAKER) (test dsbx=217) Moderate Negative UROBILINOGEN UA (BEAKER) (test sixe=510) 0.2 mg/dL 0.2-1.0 RBC UA (BEAKER) (test ajdp=856) 27 /HPF WBC UA (BEAKER) (test fexj=295) 20 /HPF MUCUS (BEAKER) (test qomf=0556) Rare SQUAMOUS EPITHELIAL (BEAKER) (test qklx=514) < /HPF SOURCE(BEAKER) (test wjjs=3415) [id number] 11:13:00 Test Item Value Reference Range Comments PARTIAL THROMBOPLASTIN TIME (BEAKER) (test 51.5 seconds 22.5-36.0 azyp=357) RESPIRATORY PANEL [id number] 10:18:00 Test Item Value Reference Range Comments HUMAN METAPNEUMOVIRUS (BEAKER) (test Not detected Not detected, Equivocal udpe=7317) RHINOVIRUS (BEAKER) (test fprw=3084) Not detected Not detected, Equivocal INFLUENZA A (BEAKER) (test kycd=7532) Not detected Not detected, Equivocal INFLUENZA A (NO SUBTYPE) (test Not detected, Equivocal dmds=4965) INFLUENZA A SUBTYPE H1 (BEAKER) (test Not detected, Equivocal azzv=8654) INFLUENZA A SUBTYPE H3 (BEAKER) (test Not detected, Equivocal xexy=2606) INFLUENZA A SUBTYPE H1-2009 (BEAKER) Not detected, Equivocal (test htgt=9984) INFLUENZA B (BEAKER) (test mnod=6371) Not detected Not detected, Equivocal RESPIRATORY SYNCYTIAL VIRUS (BEAKER) Not detected Not detected, Equivocal (test rlkf=0610) PARAINFLUENZA VIRUS 1 (BEAKER) (test Not detected Not detected, Equivocal loon=0493) PARAINFLUENZA VIRUS 2 (BEAKER) (test Not detected Not detected, Equivocal urtv=5787) PARAINFLUENZA VIRUS 3 (BEAKER) (test Not detected Not detected, Equivocal iesp=4851) PARAINFLUENZA VIRUS 4 (BEAKER) (test Not detected Not detected, Equivocal iedt=7714) ADENOVIRUS (BEAKER) (test uamu=9079) Not detected Not detected, Equivocal CORONAVIRUS 229E (BEAKER) (test Not detected Not detected, Equivocal wxxw=3171) CORONAVIRUS HKU1 (BEAKER) (test Not detected Not detected, Equivocal qmhd=8948) CORONAVIRUS NL63 (BEAKER) (test Not detected Not detected, Equivocal bzpu=0397) CORONAVIRUS OC43 (BEAKER) (test Not detected Not detected, Equivocal mdjf=8185) BORDETELLA PERTUSSIS (BEAKER) (test Not detected Not detected, Equivocal wusx=8067) CHLAMYDOPHILA PNEUMONIAE (BEAKER) (test Not detected Not detected, Equivocal cluz=5490) MYCOPLASMA PNEUMONIAE (BEAKER) (test Not detected Not detected, Equivocal kkdd=0678) Other viruses and bacteria not targeted by this PCR panel cannot be excluded; therefore clinical correlation and follow up of serology, culture results, and other molecular studies is required. The results are not intended to be used as the sole means for clinical diagnosis or patient management decisions. This sample was tested at the [facility] Molecular Diagnostics Laboratory using the [employer] FilmArray Respiratory Panel. It is FDA cleared and has been verified and approved by the [facility] Molecular Diagnostics Laboratory for clinical use on nasopharyngeal swab specimens.The performance of the FilmArrayRP has not been established in individuals who received influenza vaccine. Recent administration ofa nasal influenza vaccine may cause false positive results for Influenza A and/orInfluenza B.POCT-GLUCOSE [id number] 07:53:00 Test Item Value Reference Range Comments POC-GLUCOSE METER (BEAKER) 181 mg/dL 70-110 TESTED AT [facility] [address] (test aasp=4006) [facility] [address] COMPREHENSIVE METABOLIC [id number] 02:51:00 Test Item Value Reference Range Comments TOTAL PROTEIN (BEAKER) 6.9 gm/dL 6.0-8.3 Specimen slightly (test awtl=787) hemolyzed ALBUMIN (BEAKER) (test 3.4 g/dL 3.5-5.0 Specimen slightly pczq=1960) hemolyzed ALKALINE PHOSPHATASE 66 U/L 40-150 (BEAKER) (test fslm=734) BILIRUBIN TOTAL (BEAKER) 0.5 mg/dL 0.2-1.2 Specimen slightly (test tuyk=813) hemolyzed SODIUM (BEAKER) (test 138 meq/L 136-145 kdds=816) POTASSIUM (BEAKER) (test 4.4 meq/L 3.5-5.1 Specimen slightly aquu=609) hemolyzed CHLORIDE (BEAKER) (test 108 meq/L 98-107 tvtk=868) CO2 (BEAKER) (test 20 meq/L 22-29 yrbo=080) BLOOD UREA NITROGEN 17 mg/dL 7-21 (BEAKER) (test cedr=911) CREATININE (BEAKER) (test 1.20 mg/dL 0.57-1.25 Specimen slightly oxdl=059) hemolyzed GLUCOSE RANDOM (BEAKER) 135 mg/dL 70-105 (test ccsg=966) CALCIUM (BEAKER) (test 8.5 mg/dL 8.4-10.2 wrwn=650) AST (SGOT) (BEAKER) (test 13 U/L 5-34 Specimen slightly fdly=982) hemolyzed ALT (SGPT) (BEAKER) (test 11 U/L 6-55 Specimen slightly zvpf=670) hemolyzed EGFR (BEAKER) (test 60 mL/min/1.73 sq m ESTIMATED GFR IS NOT eive=7638) ACCURATE CREATININE CLEARANCE IN PREDICTING GLOMERULAR FILTRATION RATE. ESTIMATED GFR IS NOT APPLICABLE FOR DIALYSIS PATIENTS. TROPONIN [id number] 02:40:00 Test Item Value Reference Range Comments TROPONIN I (BEAKER) (test hlhr=687) 1.38 ng/mL 0.00-0.03 Troponin I (TnI) levels must be interpreted in the context of the presenting symptoms and the clinical findings. Elevated TnI levels indicate myocardial damage, but are not specific for ischemic heart disease. Elevated TnI levels are seen in patients with other cardiac conditions (including myocarditis and congestive heart failure), and slight TnI elevations occur in patients with other conditions, including sepsis, renal failure, acidosis, acute neurological disease, and persistent tachyarrhythmia.B-TYPE NATRIURETIC FACTOR (BNP) 02:23:00 Test Item Value Reference Range Comments B-TYPE NATRIURETIC PEPTIDE (BEAKER) (test 608 pg/mL 0-100 ffdj=841) [id number] 02:15:00 Test Item Value Reference Range Comments MAGNESIUM (BEAKER) (test 1.7 mg/dL 1.6-2.6 Specimen slightly hemolyzed otir=981) [id number] 02:15:00 Test Item Value Reference Range Comments PHOSPHORUS (BEAKER) (test 3.1 mg/dL 2.3-4.7 Specimen slightly hemolyzed grar=778) CBC W/PLT COUNT & AUTO [id number] 02:04:00 Test Item Value Reference Range Comments WHITE BLOOD CELL COUNT (BEAKER) (test gsup=951) 11.4 K/ L 3.5-10.5 RED BLOOD CELL COUNT (BEAKER) (test yqpl=417) 4.93 M/ L 4.63-6.08 HEMOGLOBIN (BEAKER) (test xlua=329) 12.9 GM/DL 13.7-17.5 HEMATOCRIT (BEAKER) (test hgqk=406) 40.5 % 40.1-51.0 MEAN CORPUSCULAR VOLUME (BEAKER) (test wepn=139) 82.2 fL 79.0-92.2 MEAN CORPUSCULAR HEMOGLOBIN (BEAKER) (test 26.2 pg 25.7-32.2 sbzk=158) MEAN CORPUSCULAR HEMOGLOBIN CONC (BEAKER) (test 31.9 GM/DL 32.3-36.5 leta=061) RED CELL DISTRIBUTION WIDTH (BEAKER) (test 13.8 % 11.6-14.4 dgcz=526) PLATELET COUNT (BEAKER) (test rohq=669) 242 K/CU MM 150-450 MEAN PLATELET VOLUME (BEAKER) (test ocrq=105) 10.8 fL 9.4-12.4 NUCLEATED RED BLOOD CELLS (BEAKER) (test 0 /100 WBC 0-0 kfah=195) NEUTROPHILS RELATIVE PERCENT (BEAKER) (test 92 % bxpk=758) LYMPHOCYTES RELATIVE PERCENT (BEAKER) (test 4 % ipqh=540) MONOCYTES RELATIVE PERCENT (BEAKER) (test 2 % tmor=407) EOSINOPHILS RELATIVE PERCENT (BEAKER) (test 0 % joui=211) BASOPHILS RELATIVE PERCENT (BEAKER) (test 1 % oxkf=656) NEUTROPHILS ABSOLUTE COUNT (BEAKER) (test 10.49 K/ L 1.78-5.38 zcql=657) LYMPHOCYTES ABSOLUTE COUNT (BEAKER) (test 0.48 K/ L 1.32-3.57 xwcr=224) MONOCYTES ABSOLUTE COUNT (BEAKER) (test 0.27 K/ L 0.30-0.82 hbek=159) EOSINOPHILS ABSOLUTE COUNT (BEAKER) (test 0.00 K/ L 0.04-0.54 yrjm=714) BASOPHILS ABSOLUTE COUNT (BEAKER) (test 0.07 K/ L 0.01-0.08 zpoy=134) IMMATURE GRANULOCYTES-RELATIVE PERCENT (BEAKER) 0 % 0-1 (test ijwo=1365) [id number] 01:59:00 Test Item Value Reference Range Comments PARTIAL THROMBOPLASTIN TIME (BEAKER) (test 40.5 seconds 22.5-36.0 elfy=074) POCT-GLUCOSE [id number] 22:21:00 Test Item Value Reference Range Comments POC-GLUCOSE METER (BEAKER) 136 mg/dL 70-110 TESTED AT [facility] [address] (test xsdn=3274) [facility] [address] RAD, CHEST, 1 VIEW, NON [id number] 21:04:00Reason for exam:->shortness of breathShould this be performed at the bedside?->YesFINAL REPORT EXAMINATION: AP PORTABLE CHEST RADIOGRAPH CLINICAL INDICATION: Shortness of breath IMPRESSION: Compared with 12/08/2018 1749 hours. As before, lung volumes are relatively large, nonspecific but can be associated with obstructive lung disease. Scattered reticular opacities are redemonstrated throughout both lungs, possibly reflecting pulmonary edema. Sequela from chronic lung injury with scarring as well as interstitial lung disease would also be in the differentialdiagnosis. More confluent patchy / nodular opacities are again noted in the right upper lobe as well as the left lower lobe which may reflect a multifocal pneumonia and/or sequela from aspiration. However, an underlying neoplastic process including a primary lung cancer should also be considered. Pulmonary hemorrhage would also be included in the differential diagnosis in the appropriate clinical setting. Small left-sided calcified granuloma again noted. The heart is borderline enlarged. Mild blunting of the costophrenic sulci is again noted (left > right), suggesting pleural thickening and/or small pleural effusions. Mild elevation of the left hemidiaphragm is again noted. No definite evidence of an acute osseous abnormality or pneumothorax. Chest CT would be beneficial in further characterization. Signed: Tariq Atkins MDReport Verified Date/Time: 12/08/2018 21:04:01 Reading Location: [address] Reading Room BUN AND [id number] 20:26:00 Test Item Value Reference Range Comments BLOOD UREA NITROGEN 18 mg/dL 7-21 (BEAKER) (test romk=278) CREATININE (BEAKER) (test 1.30 mg/dL 0.57-1.25 jdvn=793) EGFR (BEAKER) (test 54 mL/min/1.73 sq m ESTIMATED GFR IS NOT caao=2838) ACCURATE CREATININE CLEARANCE IN PREDICTING GLOMERULAR FILTRATION RATE. ESTIMATED GFR IS NOT APPLICABLE FOR DIALYSIS PATIENTS. THEOPHYLLINE [id number] 19:28:00 Test Item Value Reference Range Comments THEOPHYLLINE LEVEL (BEAKER) (test mfcw=169) 10.1 ug/mL 10.0-20.0 [id number] 19:09:00 Test Item Value Reference Range Comments PARTIAL THROMBOPLASTIN TIME (BEAKER) (test 36.3 seconds 22.5-36.0 nnyc=930) Prior to initiating heparinSTREP PNEUMONIAE [id number] 19:00:00 Test Item Value Reference Range Comments STREP PNEUMONIAE ANTIGEN Presumptive negative for Presumptive negative for (BEAKER) (test pneumococcal pneumonia - pneumococcal pneumonia - awaz=0954) see comment see commen Presumptive negative for pneumococcal pneumonia, suggesting no current or recent pneumococcal infection. Infection due to S. pneumoniae cannot be ruled out since the antigen present in the sample may be below the detection limit of the test.LEGIONELLA ANTIGEN, [id number] 18:59:00 Test Item Value Reference Range Comments L. PNEUMOPHILA SEROGP 1 Negative - see Negative for L. UR AG (AKER) (test comment pneumophila serogroup 1 gbxm=0685) antigen, suggesting no recent or current infection with this serogroup. Legionellosis cannot be ruled out since other serogroups and species may cause disease. RAD, CHEST, 1 VIEW, NON [id number] 18:51:00Reason for exam:-> hypoxemiaShould this be performed at the bedside?->YesFINAL REPORT Chest dated 12/08/2018 Clinical Information: hypoxemia Comment: Heart is normal in size. Pulmonary vasculature is indistinct. Interstitial and airspace pulmonary disease is seen in the right lung and left lower lobe suggestive of pneumonia and less likely prominent edema. There are is trace left pleural effusion. Impression: Findings suggestive of pneumonia in the right lung and left lower lobe. Signed: Katie Salinas MDReport Verified Date/Time : 12/08/2018 18:51:41 Reading Location: [address] Consult Reading Room Electronically signed by: KATIE SALINAS M.D.on 12/08/2018 06:51 PMBLOOD GAS, [id number] 18:41:00 Test Item Value Reference Range Comments PH ARTERIAL (BEAKER) (test ncno=615) 7.47 7.35-7.45 PCO2 ARTERIAL (BEAKER) (test yojt=380) 35 mmHg 35-45 PO2 ARTERIAL (BEAKER) (test aaas=009) 97 mmHg 80-90 O2 SATURATION ARTERIAL (BEAKER) (test ivov=215) 97.8 % 96.0-97.0 HCO3 ARTERIAL (BEAKER) (test coyh=866) 25 mmol/L 21-29 BASE EXCESS ARTERIAL (BEAKER) (test gemw=933) 1.4 mmol/L -2.0-3.0 PATIENT TEMPERATURE (BEAKER) (test hydr=1637) 37.0 C FIO2 (BEAKER) (test dtru=6310) 44.0 % TROPONIN [id number] 18:35:00 Test Item Value Reference Range Comments TROPONIN I (BEAKER) (test xbpt=728) 1.24 ng/mL 0.00-0.03 Troponin I (TnI) levels must be interpreted in the context of the presenting symptoms and the clinical findings. Elevated TnI levels indicate myocardial damage, but are not specific for ischemic heart disease. Elevated TnI levels are seen in patients with other cardiac conditions (including myocarditis and congestive heart failure), and slight TnI elevations occur in patients with other conditions, including sepsis, renal failure, acidosis, acute neurological disease, and persistent tachyarrhythmia.LACTIC ACID, [id number] 18:17:00 Test Item Value Reference Range Comments LACTATE BLOOD VENOUS (2) 1.6 mmol/L 0.5-2.2 Specimen moderately hemolyzed (BEAKER) (test rogg=5858) [id number] 18:14:00 Test Item Value Reference Range Comments MAGNESIUM (BEAKER) (test vtai=921) 1.7 mg/dL 1.6-2.6 POCT-GLUCOSE [id number] 18:06:00 Test Item Value Reference Range Comments POC-GLUCOSE METER (BEAKER) 123 mg/dL 70-110 TESTED AT [facility] [address] (test auvf=9712) [place] [address] CBC W/PLT COUNT & AUTO [id number] 17:57:00 Test Item Value Reference Range Comments WHITE BLOOD CELL COUNT (BEAKER) (test zhci=815) 11.6 K/ L 3.5-10.5 RED BLOOD CELL COUNT (BEAKER) (test vsln=477) 4.99 M/ L 4.63-6.08 HEMOGLOBIN (BEAKER) (test cyfw=254) 13.1 GM/DL 13.7-17.5 HEMATOCRIT (BEAKER) (test nuiz=274) 40.1 % 40.1-51.0 MEAN CORPUSCULAR VOLUME (BEAKER) (test jnuc=500) 80.4 fL 79.0-92.2 MEAN CORPUSCULAR HEMOGLOBIN (BEAKER) (test 26.3 pg 25.7-32.2 zvxt=239) MEAN CORPUSCULAR HEMOGLOBIN CONC (BEAKER) (test 32.7 GM/DL 32.3-36.5 cvvs=864) RED CELL DISTRIBUTION WIDTH (BEAKER) (test 13.8 % 11.6-14.4 zrjz=514) PLATELET COUNT (BEAKER) (test bmga=022) 243 K/CU MM 150-450 MEAN PLATELET VOLUME (BEAKER) (test biqr=169) 10.6 fL 9.4-12.4 NUCLEATED RED BLOOD CELLS (BEAKER) (test 0 /100 WBC 0-0 noks=676) NEUTROPHILS RELATIVE PERCENT (BEAKER) (test 81 % iyxm=462) LYMPHOCYTES RELATIVE PERCENT (BEAKER) (test 8 % kzol=826) MONOCYTES RELATIVE PERCENT (BEAKER) (test 10 % ifwu=714) EOSINOPHILS RELATIVE PERCENT (BEAKER) (test 0 % nygv=749) BASOPHILS RELATIVE PERCENT (BEAKER) (test 1 % davn=633) NEUTROPHILS ABSOLUTE COUNT (BEAKER) (test 9.42 K/ L 1.78-5.38 ivee=359) LYMPHOCYTES ABSOLUTE COUNT (BEAKER) (test 0.87 K/ L 1.32-3.57 krjf=075) MONOCYTES ABSOLUTE COUNT (BEAKER) (test 1.19 K/ L 0.30-0.82 iudu=481) EOSINOPHILS ABSOLUTE COUNT (BEAKER) (test 0.04 K/ L 0.04-0.54 yare=594) BASOPHILS ABSOLUTE COUNT (BEAKER) (test 0.08 K/ L 0.01-0.08 wbwh=914) IMMATURE GRANULOCYTES-RELATIVE PERCENT (BEAKER) 0 % 0-1 (test nqeq=1859)
[2019-01-14] MEDS ORDERED: HEPARIN/D5W 25,000 UNIT/500 ML BAG IV SCH (13:00)
[2019-01-14] MEDS ORDERED: LISINOPRIL 5 MG TAB PO SCH (13:00)
[2019-01-14] MEDS: AMIODARONE HCL 200 MG TAB PO SCH (13:00)
[2019-01-14] MEDS: ASPIRIN 81 MG CHEWABLE TABLET PO SCH (13:00)
[2019-01-14 15:20] LABS: Absolute Lymphocytes (CBC) 0.7 K/uL (0.7-4.9); Basophils % 1.2 % (0-1.3); Eosinophils % 0.5 % (0-4.4); Hematocrit 33.9 % (39.6-49.0); Lymphocytes % 9.2 % (15.3-44.8); MPV 8.6 fL (7.6-11.3); Monocytes % 8.6 % (3.3-12.3); RBC Red Blood Cell Count 4.32 M/uL (4.33-5.43)
[2019-01-14 15:24] LABS: Protime INR 1.16
[2019-01-14 15:42] LABS: Magnesium 2.8 mg/dL (1.8-2.4); Potassium 4.1 mmol/L (3.5-5.1); Troponin I 0.02 ng/mL (0.0-0.045)
--- NOTE | 2019-01-14 15:54 | P.HP ---
Certification for Inpatient Patient admitted to: Inpatient With expected LOS: >2 Midnights Patient will require the following post-hospital care: None Practitioner: I am a practitioner with admitting privileges, knowledge of patient current condition, hospital course, and medical plan of care. Services: Services provided to patient in accordance with Admission requirements found in Title 42 Section 412.3 of the Code of Federal Regulations Patient History Date of Service: 01/14/19 Primary Care Provider: Dr. Arana; Cardiology-Dr. Lindsay Reason for admission: Shortness of breath History of Present Illness: 73-year-old male presented to the office of cardiology-Dr. Lindsay. Patient had reported shortness of breath over the past 2 weeks. Patient reports that he was hospitalized and transferred to [facility] in December 2018. At that time he had pneumonia with biventricular CHF. The patient was found to have significant CAD and required CABG x2 vessels. Since being discharged from the hospital he has been having increasing shortness of breath. Patient has other multiple medical problems include diabetes, hypertension, CAD, PVD, COPD, CHF, and bladder cancer. Patient was evaluated by cardiology. He was transferred as a direct admit due to atrial fibrillation and RVR. When I evaluated the patient, he did not appear in any significant distress. He did report increasing shortness of breath. He denied any edema to the lower extremities. Patient takes multiple medications. Patient stable at this time. He denies any fever, chills. Allergies Cephalosporins Allergy (Verified 08/10/16 16:33) Shortness of breath Sulfa (Sulfonamide Antibiotics) Allergy (Verified 08/10/16 16:33) Nausea/Vomiting tetanus immune globulin Allergy (Verified 08/10/16 16:33) Anaphylaxis Home Medications: Amlodipine [Norvasc*] 10 mg PO DAILY 06/02/14 Insulin Glargine,Hum.rec.anlog [Lantus] 20 units SQ DAILY AFTER SUPPER 06/02/14 Metformin ER [Glucophage ER*] 500 mg PO BID 06/02/14 Tamsulosin [Flomax*] 0.4 mg PO BEDTIME 06/02/14 Theophylline Anhydrous [Theophylline] 300 mg PO BID 06/02/14 Valsartan [Diovan*] 160 mg PO DAILY 06/02/14 Albuterol Inhaler [Ventolin Inhaler*] 2 puff IH Q6H PRN 06/01/16 Aspirin 81 mg PO DAILY 08/10/16 Guaifenesin [Mucinex] 600 mg PO BID 08/10/16 Ranitidine [Zantac*] 1 tab PO BEDTIME 08/10/16 Guaifen W/Codeine Syrup [ROBITUSSIN A-C Syrup*] 10 ml PO QIDP PRN #240 ml Ipratropium Neb [Atrovent*] 0.5 mg NEB Q6HP PRN #30 amp 08/13/16 Oseltamivir [Tamiflu*] 75 mg PO BID #6 cap 08/13/16 Sotalol HCl [Betapace AF] 80 mg PO BID #60 tablet 08/13/16 levoFLOXacin [Levaquin] 500 mg PO DAILY #14 tab 08/13/16 - Past Medical/Surgical History Diabetic: Yes -: HTN -: Diabetes mellitus type 2, non insulin dependent -: COPD -: Biventricular systolic CHF, EF 25% -: Bladder cancer -: Tobacco abuse -: Hyperlipidemia -: History of CABG x2 vessel -: PVD -: History of brain aneurysm with surgery -: Hernia repair -: CABG x2 vessels -: Brain aneurysm surgery Psychosocial/ Personal History: Patient lives at home. - Family History Father -: Cancer Notes: father with cancer - Social History Smoking Status: Former smoker Alcohol use: Yes CD- Drugs: No Caffeine use: Yes Place of Residence: Home Review of Systems General: Weakness, Malaise, As per HPI Eyes: Unremarkable ENT: Unremarkable Respiratory: Shortness of Breath, As per HPI Cardiovascular: Palpitations, As per HPI Gastrointestinal: Unremarkable Genitourinary: Unremarkable Musculoskeletal: Unremarkable Integumentary: Unremarkable Neurological: Unremarkable Lymphatics: Unremarkable Physical Examination - Vital Signs Temperature: 97.9 F Blood Pressure: 96/50 Pulse: 126 Respirations: 20 Pulse Ox (%): 98 - Physical Exam General: Alert, In no apparent distress, Oriented x3, Cooperative HEENT: Atraumatic, Normocephalic, Other (Dry mucous membranes) Neck: Supple Respiratory: Crackles/rales (Mild bilateral), Other (Poor inspiration and expiration) Cardiovascular: Irregular heart rate/rhythm (Atrial fibrillation rate around 120 ) Gastrointestinal: Normal bowel sounds, Soft and benign, Non-distended, No tenderness, No masses, No rebound, No guarding Musculoskeletal: No erythema, No tenderness, No warmth Integumentary: No tenderness/swelling, No erythema, No warmth, No cyanosis Neurological: Normal speech, Normal strength at 5/5 x4 extr, Normal tone, Normal affect - Studies Laboratory Data (last 24 hrs) 01/14/19 15:03: Sodium 140, Potassium 4.1, BUN 25 H, Creatinine 1.92 H, Glucose 151 H, Magnesium 2.8 H, Troponin I 0.02 01/14/19 15:03: PT 13.6 H, INR 1.16, APTT 27.0 01/14/19 15:03: WBC 8.1 D, Hgb 10.8 L, Hct 33.9 L, Plt Count 317 Assessment and Plan - Plan Impression: Atrial fibrillation with RVR Chronic Biventricular systolic CHF CAD with prior CABG x2 vessel Diabetes mellitus type 2, non insulin dependent Hypertension Suspect chronic renal disease COPD on home oxygen PVD History of tobacco/alcohol use History of bladder cancer Plan: Atrial fibrillation with RVR: Patient has been started on amiodarone and heparin protocol drip. Continue monitor closely. Will discuss with cardiology. Recent echocardiogram shows ejection fraction 25%. Patient had recent CABG in December for 2 vessel surgery. Patient is scheduled for possible cardioversion tomorrow if no significant improvement. Will maintain sats above 90%. Medication reviewed. Will monitor closely. Check chest x-ray. Will discuss advanced directives. Chronic Biventricular systolic CHF: This appears stable at this time. Patient without significant lower extremity edema. Will check chest x-ray. Will need to review and restart home medication. CAD with prior CABG x2 vessel: Patient with recent CABG done December of 2018. Diabetes mellitus type 2, non insulin dependent: Will monitor Accu-Cheks. Will provide insulin sliding scale. Discontinue metformin due to chronic renal disease. Patient reports previously using insulin. Hypertension: Initial blood pressure elevated. Now slightly low. Will adjust medication. Suspect chronic renal disease: Suspect chronic renal disease. Will consult Nephrology to further evaluate. Will check renal ultrasound. Will discontinue metformin. Review home medication. Discontinue lisinopril. Recommend no nonsteroidal anti-inflammatories. Medications will need to be renewed COPD on home oxygen: Will start COPD medication. Will maintain sats above 90% . Will use Xopenex instead of albuterol due to elevated HR. PVD: Continue as above History of tobacco/alcohol use: Address lifestyle modification education. History of bladder cancer: Will need to discuss further with patient on what is being done for this. Discharge Plan: Home Plan to discharge in: 48 Hours - Advance Directives Does patient have a Living Will: No Does patient have a Durable POA for Healthcare: Yes - Code Status/Comfort Care Code Status Assessed: No (will address) Time Spent Managing Pts Care (In Minutes): 55
[2019-01-14] MEDS ORDERED: GLUCAGON 1 MG/VIAL IM PRN (16:06)
[2019-01-14] MEDS ORDERED: D50W 25 GM/50 ML SYRINGE IV PRN (16:06)
[2019-01-14] MEDS: LEVALBUTEROL 0.63 MG/3 ML NEB NEB PRN (16:29)
[2019-01-14] MEDS: IPRATROPIUM BROM 0.5MG/2.5ML NEB PRN (16:29)
[2019-01-14] MEDS ORDERED: TRAMADOL HCL 50 MG TAB PO PRN (16:30)
[2019-01-14] MEDS: INSULIN -REGULAR HUMAN 50 UNIT/0.5 ML ML SQ SCH ×2 (16:30→21:00)
[2019-01-14] MEDS ORDERED: HYDROCODONE/APAP 5/325 MG TAB PO PRN (16:30)
[2019-01-14] MEDS ORDERED: LEVALBUTEROL 0.63 MG/3 ML NEB ONE (16:34)
[2019-01-14 16:53] LABS: Ferritin 43.2 ng/mL (26-388)
--- NOTE | 2019-01-14 17:10 | RAD REPORT ---
EXAM DESCRIPTION: Megt Single View01/14/2019 4:58 pm CLINICAL HISTORY: Shortness of breath COMPARISON: January 12, 2019 FINDINGS: Alveolar opacities have developed within the left lung base Additional lung opacities are mostly chronic Heart is mildly enlarged. Postsurgical changes involve chest IMPRESSION: Left basilar pneumonia
[2019-01-14] MEDS: CARVEDILOL 12.5 MG TAB PO SCH (18:00)
[2019-01-14] MEDS ORDERED: CARVEDILOL 12.5 MG TAB PO SCH (18:00)
[2019-01-14] MEDS: ARFORMOTEROL TARTRATE 15 MCG/2 ML VIAL.NEB NEB SCH (20:00)
[2019-01-14] MEDS: ATORVASTATIN 40 MG TAB PO SCH (20:45)
[2019-01-14] MEDS: TAMSULOSIN 0.4 MG SR CAP PO SCH (20:45)
[2019-01-14] MEDS: GUAIFENESIN 600 MG SA TAB PO SCH (20:45)
[2019-01-14] MEDS: BUMETANIDE 1 MG TABLET PO SCH (20:47)
[2019-01-14] MEDS ORDERED: BUMETANIDE PO SCH (21:00)
[2019-01-15] MEDS: CARVEDILOL 12.5 MG TAB PO SCH ×2 (05:51→17:29)
[2019-01-15 05:54] LABS: Absolute Lymphocytes (CBC) 0.9 K/uL (0.7-4.9); Basophils % 1.1 % (0-1.3); Eosinophils % 1.3 % (0-4.4); Hematocrit 31.1 % (39.6-49.0); Lymphocytes % 11.6 % (15.3-44.8); MPV 8.5 fL (7.6-11.3); Monocytes % 11.9 % (3.3-12.3)
[2019-01-15] MEDS ORDERED: Levofloxacin 750mg IV 750 MG/150 ML BAG IV ONE (06:00)
[2019-01-15 06:17] LABS: Magnesium 2.5 mg/dL (1.8-2.4); Potassium 4.1 mmol/L (3.5-5.1); Thyroid Stimulating Hormone 2.96 uIU/mL (0.360-3.740)
[2019-01-15] MEDS: INSULIN -REGULAR HUMAN 50 UNIT/0.5 ML ML SQ SCH ×4 (07:30→20:10)
[2019-01-15] MEDS: ARFORMOTEROL TARTRATE 15 MCG/2 ML VIAL.NEB NEB SCH ×2 (07:35→20:00)
[2019-01-15] MEDS: LEVALBUTEROL 0.63 MG/3 ML NEB NEB PRN ×2 (07:35→13:21)
[2019-01-15] MEDS: IPRATROPIUM BROM 0.5MG/2.5ML NEB PRN ×2 (07:35→13:21)
[2019-01-15] MEDS ORDERED: HOME MED 1 EA UNK (Magnesium Oxide [Magnesium] 1 TAB) PO SCH (09:00)
[2019-01-15] MEDS: GUAIFENESIN 600 MG SA TAB PO SCH ×2 (09:00→21:04)
[2019-01-15] MEDS: MAGNESIUM OXIDE 400 MG TAB PO SCH (09:00)
[2019-01-15] MEDS: BUMETANIDE 1 MG TABLET PO SCH (09:00)
[2019-01-15] MEDS: AMIODARONE HCL 200 MG TAB PO SCH (09:34)
[2019-01-15] MEDS: ASPIRIN 81 MG CHEWABLE TABLET PO SCH (09:34)
--- NOTE | 2019-01-15 09:43 | ECHO ---
HEIGHT: 5 ft 11 in WEIGHT: 194 lb 11.2 oz DATE OF STUDY: 01/15/[address]: Jose Lindsay MD 2-DIMENSIONAL: YES M.MODE: YES DOPPLER: YES COLOR FLOW: YES TDS: YES PORTABLE: NO DEFINITY: NO BUBBLE STUDY: NO DIAGNOSIS: ATRIAL FLUTTER CARDIAC HISTORY: CATHERIZATION: NO SURGERY: YES PROSTHETIC VALVE: NO PACEMAKER: NO MEASUREMENTS (cm) DIASTOLIC (NORMALS) SYSTOLIC (NORMALS) IVSd (0.6-1.2) LA Diam (1.9-4.0) LVEF 15-20% LVIDd (3.5-5.7) LVIDs (2.0-3.5) %FS % LVPWd (0.6-1.2) Ao Diam 2.9 (2.0-3.7) 2 DIMENSIONAL ASSESSMENT: RIGHT ATRIUM: NORMAL LEFT ATRIUM: DILATED RIGHT VENTRICLE: NORMAL LEFT VENTRICLE: DILATED TRICUSPID VALVE: NORMAL MITRAL VALVE: NORMAL PULMONIC VALVE: NORMAL AORTIC VALVE: NORMAL PERICARDIAL EFFUSION: NONE AORTIC ROOT: NORMAL LEFT VENTRICULAR WALL MOTION: SEVERE GLOBAL HYPOKINESIS. DOPPLER/COLOR FLOW: MILD TRICUSPID AND MITRAL REGURGITATION. COMMENTS: SEVERE GLOBAL HYPOKINESIS. EJECTION FRACTION 15-20%. NO THROMBUS. TECHNICALLY DIFFICULT STUDY. TECHNOLOGIST: JESSIKA NUR
--- NOTE | 2019-01-15 09:43 | RAD REPORT ---
EXAM DESCRIPTION: US - Renal Ultrasound-Complete - 01/15/2019 9:24 am CLINICAL HISTORY: Chronic renal disease COMPARISON: Renal ultrasound October 2014, CT study March 2014 FINDINGS: The right kidney measures 10.0 x 5.0 x 6.2 cm. The left kidney measures 10.2 x 5.4 x 5.2 cm. Cortical thickness is normal. There is an increase in cortical echogenicity. Multiple punctate ec hogenic foci seen in the renal cortical tissue and in calices. Prior imaging has shown cortical and c barry calculi. No hydronephrosis or suspicious renal mass. A small 11 millimeter cyst is present in the right kidney. 2014 imaging showed additional right renal cysts that are not clearly evident on the current examination. No bladder wall thickening or mass. No intraluminal stone or mass. IMPRESSION: Underlying medical renal disease is evident but no hydronephrosis or suspicious mass. Multiple calyx and renal cortical calculi. No other significant findings.
[2019-01-15] MEDS ORDERED: MIDAZOLAM HCL 2 MG/2 ML INJ ONE ×2 (10:47→11:03)
--- NOTE | 2019-01-15 12:38 | P.CNS ---
Date of Consult: 01/15/19 Primary Care Provider: Dr. Arana; Cardiology-Dr. Lindsay Chief Complaint: Shortness of breath History of Present Illness: Patient is 73 years of age with a history of COPD had a CABG done about 4 weeks ago was taken off all his inhalers came in with worsening shortness of breath over the past 2 weeks denies any chest pain cough sputum hemoptysis patient was cardioverted this morning still has some congestion in his lung Allergies Cephalosporins Allergy (Verified 08/10/16 16:33) Shortness of breath Sulfa (Sulfonamide Antibiotics) Allergy (Verified 08/10/16 16:33) Nausea/Vomiting tetanus immune globulin Allergy (Verified 08/10/16 16:33) Anaphylaxis Home Medications: Metformin ER [Glucophage ER*] 500 mg PO BID 06/02/14 Tamsulosin [Flomax*] 0.4 mg PO BEDTIME 06/02/14 Theophylline Anhydrous [Theophylline] 300 mg PO BID 06/02/14 Aspirin 81 mg PO DAILY 08/10/16 Guaifenesin [Mucinex] 600 mg PO BID 08/10/16 Amiodarone HCl [Pacerone] 1 tab PO DAILY 01/14/19 Atorvastatin Calcium 1 tab PO BEDTIME 01/14/19 Bumetanide [Bumex] 1 tab PO BID 01/14/19 Clopidogrel Bisulfate [Clopidogrel] 75 mg PO DAILY 01/14/19 Fluticasone Propionate [Flovent Diskus] 1 puff IH BID PRN 01/14/19 Fluticasone/Vilanterol [Breo Ellipta 200-25 Mcg INH] 1 puff IH DAILY PRN Hydrocodone 5/APAP 325 [[place] 5/325*] 1 tab PO DAILY PRN 01/14/19 Ipratropium/Albuterol Sulfate [Combivent Respimat 20-100 Mcg] 2 puff IH Q4H PRN 01/14/19 Ipratropium/Albuterol Sulfate [Iprat-Albut 0.5-3(2.5) mg/3 ml] 3 ml IH Q4H PRN 01/14/19 Losartan Potassium 0.5 tab PO DAILY 01/14/19 Magnesium Oxide [Magnesium] 1 tab PO DAILY 01/14/19 Metoprolol Tartrate [Lopressor*] 1 tab PO BID 01/14/19 Tramadol HCl [Ultram] 1 tab PO Q6H PRN 01/14/19 Zinc Oxide/Petrolatum,White [[place] Moist Barrier Cream] 1 appl TOP BID 04/25 - Past Medical/Surgical History Diabetic: Yes -: HTN -: Diabetes mellitus type 2, non insulin dependent -: COPD -: Biventricular systolic CHF, EF 25% -: Bladder cancer -: Tobacco abuse -: Hyperlipidemia -: History of CABG x2 vessel -: PVD -: History of brain aneurysm with surgery -: Hernia repair -: CABG x2 vessels -: Brain aneurysm surgery Psychosocial/ Personal History: Patient lives at home. - Family History Father Medical History: Cancer Notes: father with cancer - Social History Smoking Status: Former smoker Alcohol use: Yes CD- Drugs: No Caffeine use: Yes Place of Residence: Home Review of Systems 10-point ROS is otherwise unremarkable General: Weakness Respiratory: Shortness of Breath Physical Examination Temp Pulse Resp BP Pulse Ox 97.5 F 101 H 20 112/62 100 01/15/19 08:00 01/15/19 12:00 01/15/19 12:00 01/15/19 12:00 01/15/19 12:00 General: Alert, Oriented x3, Acute distress, Mild distress Respiratory: Crackles/rales, Expiratory wheezes Cardiovascular: No edema, Normal S1 S2 Gastrointestinal: Normal bowel sounds, Soft and benign, Non-distended Musculoskeletal: No clubbing, No swelling Integumentary: No rashes, No breakdown Neurological: Normal speech Laboratory Data (last 24 hrs) 01/15/19 11:00: APTT 51.8 H 01/15/19 05:39: APTT 44.9 H 01/15/19 05:39: Sodium 138, Potassium 4.1, BUN 25 H, Creatinine 1.83 H, Glucose 125 H, Magnesium 2.5 H, Triglycerides 67, Cholesterol 97, HDL Cholesterol 62 H, Cholesterol/HDL Ratio 1.56 01/15/19 05:39: WBC 7.5, Hgb 10.1 L, Hct 31.1 L, Plt Count 284 01/15/19 04:00: APTT Cancelled 01/15/19 00:16: APTT 50.9 H 01/14/19 20:32: APTT 64.3 H 01/14/19 15:03: Sodium 140, Potassium 4.1, BUN 25 H, Creatinine 1.92 H, Glucose 151 H, Magnesium 2.8 H, Troponin I 0.02 01/14/19 15:03: PT 13.6 H, INR 1.16, APTT 27.0 01/14/19 15:03: WBC 8.1 D, Hgb 10.8 L, Hct 33.9 L, Plt Count 317 - Problems (1) COPD exacerbation Onset Date: 06/14/16 Current Visit: No Status: Acute Plan: Patient is 73 years of age with a history of COPD admitted with an exacerbation he was taken off all his inhalers he does see a spreader in [place] lives here in [place] former smoker he has some left basal alert changes on his chest x-ray presumed small pleural effusion he recently had a bypass surgery done no active evidence of sepsis agree with bronchodilators at steroids Dc antibiotics labs reviewed patient has chronic renal insufficiency patient has severe groove wall hypokinesis on the echocardiogram I have added some prednisone possible discharge tomorrow
[2019-01-15] MEDS: predniSONE 20 MG TAB PO SCH ×2 (12:55→21:04)
--- NOTE | 2019-01-15 13:12 | RAD REPORT ---
EXAM DESCRIPTION: RAD - Chest Single View - 01/15/2019 1:06 pm CLINICAL HISTORY: Pneumonia COMPARISON: January 14 TECHNIQUE: AP portable chest image was obtained 1304 hours . FINDINGS: Left base opacification is still present partially obscuring the left heart border and lef t hemidiaphragm. Mild improvement has occurred. Chronic interstitial opacification throughout the remainder of each lung field. No new mass or infilt rate elsewhere in the chest. Sternotomy wires are in place. Heart and vasculature are normal. No measurable pleural effusion and no pneumothorax. No acute bony abnormality seen. No acute aortic findings suspected. IMPRESSION: Left base pneumonia showing mild improvement from comparison.
--- NOTE | 2019-01-15 13:52 | P.PN ---
Subjective Date of Service: 01/15/19 Primary Care Provider: Dr. Arana; Cardiology-Dr. Lindsay Chief Complaint: Shortness of breath Subjective: Doing well Physical Examination - Vital Signs Temperature: 97.5 F Blood Pressure: 94/51 Pulse: 101 Respirations: 24 Pulse Ox (%): 100 - Physical Exam General: Alert, In no apparent distress, Oriented x3, Cooperative HEENT: Atraumatic Neck: Supple Respiratory: Clear to auscultation bilaterally, Normal air movement Cardiovascular: Irregular heart rate/rhythm (AFib, rate around 120) Gastrointestinal: Normal bowel sounds, Soft and benign, Non-distended Neurological: Normal speech, Normal strength at 5/5 x4 extr, Normal tone, Normal affect - Studies Laboratory Data (last 24 hrs) 01/15/19 11:00: APTT 51.8 H 01/15/19 05:39: APTT 44.9 H 01/15/19 05:39: Sodium 138, Potassium 4.1, BUN 25 H, Creatinine 1.83 H, Glucose 125 H, Magnesium 2.5 H, Triglycerides 67, Cholesterol 97, HDL Cholesterol 62 H, Cholesterol/HDL Ratio 1.56 01/15/19 05:39: WBC 7.5, Hgb 10.1 L, Hct 31.1 L, Plt Count 284 01/15/19 04:00: APTT Cancelled 01/15/19 00:16: APTT 50.9 H 01/14/19 20:32: APTT 64.3 H 01/14/19 15:03: Sodium 140, Potassium 4.1, BUN 25 H, Creatinine 1.92 H, Glucose 151 H, Magnesium 2.8 H, Troponin I 0.02 01/14/19 15:03: PT 13.6 H, INR 1.16, APTT 27.0 01/14/19 15:03: WBC 8.1 D, Hgb 10.8 L, Hct 33.9 L, Plt Count 317 Medications List Reviewed: Yes Assessment & Plan Discharge Plan: Home Physician Review Additional Text: Impression: Atrial fibrillation with RVR Chronic Biventricular systolic CHF CAD with prior CABG x2 vessel Diabetes mellitus type 2, non insulin dependent Hypertension Suspect chronic renal disease COPD on home oxygen PVD History of tobacco/alcohol use History of bladder cancer Plan: Atrial fibrillation with RVR: Patient NPO for electrocardioversion. Cardioversion was successful. Patient now in normal sinus rhythm. Patient continues on amiodarone. Patient will likely require chronic anti coagulation therapy. Cardiology to further monitor and adjust. Anticipate discharge in the next 1-2 days with clinical improvement and stability of heart rate. I will turn the service over to Dr. Chavez tomorrow. I will go over the plan of care with her. Chronic Biventricular systolic CHF: This appears stable at this time. Continue with current erratic therapy. CAD with prior CABG x2 vessel: Patient with recent CABG done December of 2018. Diabetes mellitus type 2, non insulin dependent: Will monitor Accu-Cheks. Metformin has been discontinued due to chronic renal disease. Will need to consider basal insulin at discharge. Hypertension: Cardiology has adjusted medication. Suspect chronic renal disease: Suspect chronic renal disease. Case discussed with nephrology. Medications including losartan and metformin have been discontinued. Further adjustment in medication will be required. Nephrology to further address. COPD on home oxygen: Continue COPD medication. Pulmonology to further evaluate. Patient with recent pneumonia. Will monitor closely. Maintain sats above 90%. PVD: Continue as above History of tobacco/alcohol use: Continue to address lifestyle modification education. History of bladder cancer: Will need to discuss further with patient on what is being done for this. Time Spent Managing Pts Care (In Minutes): 55
--- NOTE | 2019-01-15 14:48 | EKG ---
Test Date: 2019-01-15 Test Time: 11:00:17 Educational Psychology Teacher: KB MEASUREMENT RESULTS: Intervals: Rate: 109 KS: 134 QRSD: 156 QT: 404 QTc: 544 [place]: P: 58 KS: 134 QRS: -61 T: 108 INTERPRETIVE STATEMENTS: Sinus tachycardia Right bundle branch block Left anterior fascicular block Bifascicular block T wave abnormality, consider lateral ischemia Abnormal ECG Compared to ECG 12/08/2018 13:36:57 Left anterior fascicular block now present Bifascicular block now present T-wave abnormality now present Possible ischemia now present Atrial premature complex(es) no longer present Electronically Signed On 01-15-19 14:46:45 CDT by Jose Lindsay
[2019-01-15] MEDS ORDERED: FUROSEMIDE 40 MG/4 ML VIAL IV ONE (15:10)
[2019-01-15] MEDS ORDERED: LEVALBUTEROL 1.25 MG/3 ML NEB NEB ONE (15:19)
[2019-01-15] MEDS ORDERED: IPRATROPIUM BROM 0.5MG/2.5ML NEB ONE (15:20)
[2019-01-15] MEDS ORDERED: FUROSEMIDE 40 MG/4 ML VIAL ONE (15:22)
[2019-01-15] MEDS ORDERED: LORazepam 2 MG/ML VIAL ONE (15:34)
[2019-01-15] MEDS ORDERED: IPRATROPIUM BROM 0.5MG/2.5ML ONE (15:36)
[2019-01-15] MEDS ORDERED: LEVALBUTEROL 1.25 MG/3 ML NEB ONE (15:36)
--- NOTE | 2019-01-15 16:21 | CON ---
Date of Consultation: 01/15/2019 Additional Consulting Physician: Spenser Long DO Reason For Consultation: Elevated BUN and creatinine, fluid management. History Of Present Illness: This is a pleasant unfortunate 73-year-old gentleman with significant [facility] medical history of diabetes complicated with neuropathy, no retinopathy, hypertension, dyslipidemi a, coronary artery disease status post CABG recently back in December 2018, COPD, the patient was admitte d to the hospital back in December with pneumonia and unstable angina, transferred to medical center unde r goal CABG. During the hospitalization, the patient's workup showed creatinine fluctuating between 1.2 to 1.3. Upon leaving the hospital, creatinine was 1.2 with GFR of 54. The patient came back com plaining from cough and shortness of breath, found to have atrial fibrillation with RVR, transferred to ICU for cardioversion. Primary workup for the patient show creatinine up to 1.9, with GFR of 35. For that reason, we have been consulted. The patient denied taking any nonsteroidal. No recent jessy nge in his medication. The patient had cardiac cath, but again his creatinine on the 27 after almost 2 weeks from the cardiac cath is 1.2 with GFR of 54. Reviewing the record, the patient on the prese ntation did not have low blood, had only a couple of incident of low blood pressure down to 90 and th e patient denied any hematuria. The patient had as I mentioned, atrial fibrillation with RVR. The p atient being on ARB. Renal ultrasound has been done. There is no obstruction. Past Medical History: 1.Diabetes complicated with neuropathy. No retinopathy. 2.Hypertension. 3.Peripheral vascular disease. 4.Chronic kidney disease, stage 3. 5.Baseline creatinine 1.2. GFR of 54. Normal size kidney. 6.Bladder cancer confirmed with biopsy. Allergies: TO CEPHALOSPORIN AND SULFA. Home Medications: Include amlodipine 10 mg, insulin, metformin, Flomax, theophylline, valsartan 160, aspirin, guanfacine, ipratropium, Tamiflu, and Levaquin. Past Surgical History: Include CABG, brain aneurysm surgery. Family History: Positive for cancer. Social History: Ex-smoker. Denied alcohol. Denied drug abuse. Review of Systems: Head and Neck: No red eye. No ear pain. GI: No nausea. No vomiting. : No polyuria. No dysuria. No hematuria. [employer]: Not applicable. Respiratory: Has shortness of breath, has cough. Cardiovascular: Has palpitation. Has chest pain. Endocrine: No polydipsia. Skin: No rash. Neuro: Has neuropathy. Musculoskeletal: No joint pain. Current Medications: Include amiodarone, Brovana, atorvastatin, Bumex 2 mg b.i.d., carvedilol, Loven ox, hydrocodone, insulin, Levaquin, Flomax, and tramadol. Physical Examination: Vital Signs: Blood pressure 114/73, pulse of 109, afebrile. Chest: Clear to auscultation. Heart: S1 and S2. Regular. Tachycardic. Abdomen: Soft and nontender. Extremities: No edema. Neuro: Alert and oriented x3. No focal. No tremor. Laboratory Data: Sodium 138, potassium 4.1, bicarb 33, BUN 25, creatinine 1.8, GFR of 37, calcium 8. 3, magnesium 2.5, TSAT of 5, ferritin of 43. WBC 7.5, H and H 10.1/31.1, eosinophil of 1.3. Absolut e count of the eosinophil just 100. Chest x-ray, no cardiomegaly, consolidation on the left lower co mpared to the old chest x-ray. There is no major new finding. Renal ultrasound showing normal size kidney 10 x 10.2 x 11 mm cyst. Assessment And Plan: 1.Acute kidney injury, mostly cardiac renal superimposed with ARB. Looked to be normal volume. I a m going to go ahead and agree with holding ARB. DC Bumex for the time being. I going to go ahead an d send for LDH and eosinophil with complement to rule out any atheroembolic and I am going to go ahea d and also send for LFT to rule out any embolic phenomena. 2.Hypertension, controlled optimal currently on the lower side. I am going to go ahead and hold jalen hilton giving the acute kidney injury. We will follow up with Cardiology. DC Bumex. 3.Atrial fibrillation with rapid ventricular response as by primary and Cardiology. 4.Questionable healthcare-associated pneumonia as by Pulmonary. 5.Diabetes as by primary. Thank you Dr. Long for allowing us to participate in the care of your patient. Case discussed DICTATION ENDS HERE GOPAL/NOHELIA Voice ID: [id number] Report ID: [id number]
[2019-01-15 17:15] LABS: Arterial Blood Carboxyhemoglob 1.8 % (0-1.5); Blood O2 Saturation 94.3 % (92-98.5)
[2019-01-15] MEDS: ENOXAPARIN 40 MG/0.4 ML SQ SCH (17:28)
[2019-01-15 20:55] LABS: Urine Protein/Creatinine Ratio 0.23 ratio (<0.15)
[2019-01-15] MEDS: LORAZEPAM 0.5 MG TABLET PO PRN (21:03)
[2019-01-15] MEDS: ATORVASTATIN 40 MG TAB PO SCH (21:04)
[2019-01-15] MEDS: TAMSULOSIN 0.4 MG SR CAP PO SCH (21:04)
[2019-01-16] MEDS: IPRATROPIUM BROM 0.5MG/2.5ML NEB PRN ×2 (04:30→07:55)
[2019-01-16] MEDS: LEVALBUTEROL 0.63 MG/3 ML NEB NEB PRN ×3 (04:38→13:30)
[2019-01-16] MEDS: CARVEDILOL 12.5 MG TAB PO SCH ×2 (05:05→16:59)
[2019-01-16 05:36] LABS: Absolute Lymphocytes (CBC) 0.5 K/uL (0.7-4.9); Basophils % 0.2 % (0-1.3); Eosinophils % 0.1 % (0-4.4); Hematocrit 35.8 % (39.6-49.0); Monocytes % 5.6 % (3.3-12.3); RBC Red Blood Cell Count 4.58 M/uL (4.33-5.43)
[2019-01-16 05:53] LABS: Albumin 3.3 g/dL (3.4-5.0); Bilirubin Direct 0.1 mg/dL (0-0.2); Bilirubin Total 0.4 mg/dL (0.2-1.0); Phosphorus 4.6 mg/dL (2.5-4.9); Potassium 4.8 mmol/L (3.5-5.1); Protein, Total 7.7 g/dL (6.4-8.2)
[2019-01-16 06:55] LABS: Blood Morphology Comment NOT SEEN (NOT SEEN); Platelet Estimate ADEQ
[2019-01-16] MEDS ORDERED: Levofloxacin500mg IV 500 MG/100 ML BAG IV SCH (07:00)
[2019-01-16] MEDS: INSULIN -REGULAR HUMAN 50 UNIT/0.5 ML ML SQ SCH ×4 (07:30→20:51)
[2019-01-16] MEDS: ARFORMOTEROL TARTRATE 15 MCG/2 ML VIAL.NEB NEB SCH ×2 (07:55→20:00)
--- NOTE | 2019-01-16 08:13 | OP ---
Date of Procedure: 01/15/2019 Surgeon: Jose Lindsay MD Procedure: Direct current cardioversion. Indication: Atrial flutter. Description Of Procedure: The patient was brought to the ICU. Paddles were placed anteriorly and po steriorly. He was given 10 mg of Versed IV push for sedation. He received 2 separate shocks, 1 with 100 and the second 1 with 200 and he converted to sinus tachycardia at a rate of 100. His initial r ate was about 134. The patient was taking amiodarone 200 mg daily prior to the cardioversion. He wa s on IV heparin. Echocardiogram that was done prior to the procedure showed an ejection fraction of about 20% with no evidence of thrombus. The patient tolerated the procedure well. There were no com plications. We will continue amiodarone and put him on Lovenox. He will need to be on anticoagulant when he goes home, preferably Eliquis. International Representative: José Manuel Mayer Voice ID: [id number] Report ID: [id number]
[2019-01-16] MEDS: SACUBITRIL/VALSARTAN 24/26 MG TAB PO SCH ×2 (09:40→20:44)
[2019-01-16] MEDS: MAGNESIUM OXIDE 400 MG TAB PO SCH (09:41)
[2019-01-16] MEDS: AMIODARONE HCL 200 MG TAB PO SCH (09:41)
[2019-01-16] MEDS: predniSONE 20 MG TAB PO SCH ×2 (09:41→20:43)
[2019-01-16] MEDS: ASPIRIN 81 MG CHEWABLE TABLET PO SCH (09:41)
[2019-01-16] MEDS: GUAIFENESIN 600 MG SA TAB PO SCH ×2 (09:42→20:44)
[2019-01-16] MEDS: FUROSEMIDE 40 MG/4 ML VIAL IV SCH ×2 (10:48→17:00)
--- NOTE | 2019-01-16 10:55 | P.PN ---
Subjective Date of Service: 01/16/19 Primary Care Provider: Dr. Arana; Cardiology-Dr. Lindsay Chief Complaint: Shortness of breath Patient seen and examined at bedside. Chart reviewed. Case discussed with cardiology at this time. Patient is back to normal sinus rhythm after cardioversion yesterday. Doing well overall. Does complain of having some shortness of breath however improving markedly than before. Review of Systems 10-point ROS is otherwise unremarkable Physical Examination - Vital Signs Temperature: 98 F Blood Pressure: 113/59 Pulse: 94 Respirations: 23 Pulse Ox (%): 94 - Physical Exam General: Alert, In no apparent distress Respiratory: Normal air movement, Crackles/rales Cardiovascular: Regular rate/rhythm, Normal S1 S2 Gastrointestinal: Normal bowel sounds, No tenderness Musculoskeletal: No tenderness Integumentary: No rashes Neurological: Normal speech, Normal tone, Normal affect Lymphatics: No axilla or inguinal lymphadenopathy - Studies Laboratory Data (last 24 hrs) 01/16/19 04:48: Sodium 137, Potassium 4.8, BUN 27 H, Creatinine 1.78 H, Glucose 126 H, Phosphorus 4.6, Total Bilirubin 0.4, AST 13 L, ALT 20, Alkaline Phosphatase 107 01/16/19 04:43: WBC 8.9 D, Hgb 11.6 L, Hct 35.8 L D, Plt Count 320 01/15/19 11:00: APTT 51.8 H Medications List Reviewed: Yes Assessment And Plan - Current Problems (Diagnosis) (1) Intermittent atrial fibrillation Current Visit: No Status: Chronic Plan: Patient with history of intermittent atrial fibrillation now with atrial fibrillation with RVR -status post cardioversion yesterday with cardiology -currently in sinus rhythm -on amiodarone at this time -will continue amiodarone here in the hospital along with aspirin for anti coagulation -will monitor closely (2) Congestive heart failure Current Visit: Yes Status: Acute Plan: Patient with cardiomyopathy and systolic heart failure -echocardiogram with ejection fraction of 15-20% -cardiology consulted. Appreciated recommendations at this time -continue on IV Lasix and Added Entresto at this time -monitor patient closely here in the hospital -fluid restriction and sodium restriction at this time Qualifiers: Heart failure type: biventricular Qualified Code(s): I50.82 - Biventricular heart failure (3) COPD exacerbation Onset Date: 06/14/16 Current Visit: No Status: Acute Plan: COPD exacerbation with recent pneumonia -duo nebs, steroids, oxygenation -patient uses home oxygenation -monitor closely here in the hospital -wean oxygen to the level that he uses at home (4) CAD (coronary artery disease) Current Visit: Yes Status: Chronic Plan: Patient with recent CABG done on December of 2018 -currently doing well overall -cardiology consulted. Appreciated recommendations at this time -continued on aspirin, Plavix, ACS medication Qualifiers: Coronary Disease-Associated Artery/Lesion type: [place] artery [place] vs. transplanted heart: [place] heart Associated angina: without angina Qualified Code(s): I25.10 - Atherosclerotic heart disease of [place] coronary artery without angina pectoris (5) Diabetes mellitus Onset Date: 06/14/16 Current Visit: No Status: Chronic Plan: Accu-Cheks and insulin sliding scale Qualifiers: Diabetes mellitus type: type 2 Diabetes mellitus correction insulin use: with long chain quiller tender use Diabetes mellitus complication status: without complication Qualified Code(s): E11.9 - Type 2 diabetes mellitus without complications; Z79.4 - [facility] (current) use of insulin (6) HTN (hypertension) Onset Date: 06/14/16 Current Visit: No Status: Chronic Plan: Currently stable and on medication Qualifiers: Hypertension type: essential hypertension Qualified Code(s): I10 - Essential (primary) hypertension - Plan Pending clinical improvement at this time Discharge Plan: Home Plan to discharge in: Greater than 2 days - Code Status/Comfort Care Code Status Assessed: Yes Critical Care: Yes
--- NOTE | 2019-01-16 11:41 | RAD REPORT ---
EXAM DESCRIPTION: RAD - Chest Single View - 01/16/2019 11:28 am CLINICAL HISTORY: Dyspnea COMPARISON: January 15, January 14 TECHNIQUE: AP portable chest image was obtained 1126 hours . FINDINGS: Left base pleural and parenchymal opacification are similar to slightly improved from the January 15 study. Interstitial and alveolar opacities in the right lung field have increased from prior imaging studies. Mid and upper left lung increased opacification present to a lesser degree. Findings may represent an asymmetric failure or volume overload. A developing right-sided pneumonia would be a consideration. Right lung field findings are worse at the base. Heart size is not substantially different from comparison. Vasculature is increased slightly. No pne umothorax. IMPRESSION: Increasing interstitial and alveolar opacification throughout the lung [place] worse on t he right and most pronounced at the right base. Heart size has not changed but there is an increase in upper lobe vascularity. Findings are suspected to be an asymmetric developing failure/ volume overload. A new right base pneu monia is possible but would be unusual in the setting of ongoing pneumonia treatment. Left base pleural and parenchymal opacification similar or slightly improved from January 15.
--- NOTE | 2019-01-16 11:42 | P.PN ---
Subjective Date of Service: 01/16/19 Primary Care Provider: Dr. Arana; Cardiology-Dr. Lindsay Chief Complaint: Shortness of breath Pt with HX of CAD , cardiomyopathy with low EF , COPD , DM and HTN admitted for SOB Emi Cr elevated to 1.9 from baseline ~1.2 Cardica cath recently but Cr was at baseline after Today Still have rales on exam RFt stable will order CXR pt started on lasix and entresto , will monitor RFT and will discuss with machine stonecutter to hold entresto and reduce lasix irf RFT cont to be worse , will f/u CXR results Physical Examination - Vital Signs Temperature: 98 F Blood Pressure: 123/65 Pulse: 96 Respirations: 28 Pulse Ox (%): 93 - Physical Exam General: Alert, In no apparent distress HEENT: Atraumatic Neck: Supple, Without JVD or thyroid abnormality Respiratory: Crackles/rales Cardiovascular: No edema, Regular rate/rhythm, Normal S1 S2, No gallops, No rubs , No murmurs Gastrointestinal: Normal bowel sounds, Soft and benign - Studies Laboratory Data (last 24 hrs) 01/16/19 04:48: Sodium 137, Potassium 4.8, BUN 27 H, Creatinine 1.78 H, Glucose 126 H, Phosphorus 4.6, Total Bilirubin 0.4, AST 13 L, ALT 20, Alkaline Phosphatase 107 01/16/19 04:43: WBC 8.9 D, Hgb 11.6 L, Hct 35.8 L D, Plt Count 320 Medications List Reviewed: Yes Assessment And Plan - Current Problems (Diagnosis) (1) EMI (acute kidney injury) Current Visit: Yes Status: Acute - Plan Acute kidney injury, possibly due to cardiorenal syndrome +/- ARB CKD due to DM and HTN Cr stable US no hydro , echogenic kidneys , UPC 0.2 F/U serology w/u and UA will monitor RFt while on entresto and lasix HTN controlled Afib rate controlled now Dm as per primary JOHN will start on IV iron
--- NOTE | 2019-01-16 11:43 | P.CNS ---
Date of Consult: 01/16/19 Primary Care Provider: Dr. Arana; Cardiology-Dr. Lindsay Chief Complaint: Shortness of breath History of Present Illness: Patient is 73 years of age admitted with respiratory distress is still complaining of shortness of breath productive cough acquired BiPAP patient has severe congestive heart failure no significant change since yesterday Allergies Cephalosporins Allergy (Verified 08/10/16 16:33) Shortness of breath Sulfa (Sulfonamide Antibiotics) Allergy (Verified 08/10/16 16:33) Nausea/Vomiting tetanus immune globulin Allergy (Verified 08/10/16 16:33) Anaphylaxis Home Medications: Metformin ER [Glucophage ER*] 500 mg PO BID 06/02/14 Tamsulosin [Flomax*] 0.4 mg PO BEDTIME 06/02/14 Theophylline Anhydrous [Theophylline] 300 mg PO BID 06/02/14 Aspirin 81 mg PO DAILY 08/10/16 Guaifenesin [Mucinex] 600 mg PO BID 08/10/16 Amiodarone HCl [Pacerone] 1 tab PO DAILY 01/14/19 Atorvastatin Calcium 1 tab PO BEDTIME 01/14/19 Bumetanide [Bumex] 1 tab PO BID 01/14/19 Clopidogrel Bisulfate [Clopidogrel] 75 mg PO DAILY 01/14/19 Fluticasone Propionate [Flovent Diskus] 1 puff IH BID PRN 01/14/19 Fluticasone/Vilanterol [Breo Ellipta 200-25 Mcg INH] 1 puff IH DAILY PRN Hydrocodone 5/APAP 325 [Cisco 5/325*] 1 tab PO DAILY PRN 01/14/19 Ipratropium/Albuterol Sulfate [Combivent Respimat 20-100 Mcg] 2 puff IH Q4H PRN 01/14/19 Ipratropium/Albuterol Sulfate [Iprat-Albut 0.5-3(2.5) mg/3 ml] 3 ml IH Q4H PRN 01/14/19 Losartan Potassium 0.5 tab PO DAILY 01/14/19 Magnesium Oxide [Magnesium] 1 tab PO DAILY 01/14/19 Metoprolol Tartrate [Lopressor*] 1 tab PO BID 01/14/19 Tramadol HCl [Ultram] 1 tab PO Q6H PRN 01/14/19 Zinc Oxide/Petrolatum,White [Dony Moist Barrier Cream] 1 appl TOP BID 04/25 - Past Medical/Surgical History Diabetic: Yes -: HTN -: Diabetes mellitus type 2, non insulin dependent -: COPD -: Biventricular systolic CHF, EF 25% -: Bladder cancer -: Tobacco abuse -: Hyperlipidemia -: History of CABG x2 vessel -: PVD -: History of brain aneurysm with surgery -: Hernia repair -: CABG x2 vessels -: Brain aneurysm surgery Psychosocial/ Personal History: Patient lives at home. - Family History Father Medical History: Cancer Notes: father with cancer - Social History Smoking Status: Former smoker Alcohol use: Yes CD- Drugs: No Caffeine use: Yes Place of Residence: Home Review of Systems is unable to be obtained General: Weakness Respiratory: Cough, Shortness of Breath Physical Examination Temp Pulse Resp BP Pulse Ox 98 F 96 H 28 H 123/65 93 01/16/19 10:55 01/16/19 11:00 01/16/19 11:00 01/16/19 11:00 01/16/19 11:00 General: Alert, Cooperative Respiratory: Clear to auscultation bilaterally Cardiovascular: Normal S1 S2, Edema (2+ edema) Gastrointestinal: Normal bowel sounds, W/out succussion splash Laboratory Data (last 24 hrs) 01/16/19 04:48: Sodium 137, Potassium 4.8, BUN 27 H, Creatinine 1.78 H, Glucose 126 H, Phosphorus 4.6, Total Bilirubin 0.4, AST 13 L, ALT 20, Alkaline Phosphatase 107 01/16/19 04:43: WBC 8.9 D, Hgb 11.6 L, Hct 35.8 L D, Plt Count 320 - Problems (1) COPD exacerbation Onset Date: 06/14/16 Current Visit: No Status: Acute Plan: Patient admitted with respiratory failure he has underlying COPD theophylline should be stopped at home his renal function is abnormal vital signs are all stable hemoglobin 11.6 microcytic anemia continue with bronchodilators he has severe congestive heart failure patient needs Lasix and Entresto labs reviewed sputum culture shows 3+ coagulase positive agree with doxycycline for now until the culture results are available add LindapIsaac Atrmiaht scheduled
[2019-01-16] MEDS: LORAZEPAM 0.5 MG TABLET PO PRN ×2 (12:27→22:08)
[2019-01-16] MEDS: BENZONATATE 100 MG CAP PO PRN (12:27)
[2019-01-16] MEDS: ROFLUMILAST 500 MCG TABLET PO SCH (12:42)
--- NOTE | 2019-01-16 12:55 | PN ---
Date of Progress Note: 01/16/2019 Subjective: Mr. Hauser underwent a cardioversion yesterday for atrial flutter. He remained in si nus rhythm. Still having issues with breathing secondary to COPD and CHF combination. He is now on prednisone multiple inhalers. He is off his theophylline. Ejection fraction was showed 20% on echo while he was in atrial flutter. He is on carvedilol, Lasix. His creatinine is 1.8. I am going to s tart him on Entresto 24/26 mg 1 p.o. b.i.d. today. I will discuss the case further with Dr. Mclean . We will watch his creatinine and electrolytes. If his ejection fraction does not improve over the next couple of months, he will be a candidate for defibrillator and biventricular pacemaker. DEBBY/NOHELIA Voice ID: [id number] Report ID: [id number]
[2019-01-16] MEDS: IPRATROPIUM BROM 0.5MG/2.5ML NEB SCH ×2 (13:30→20:00)
[2019-01-16] MEDS: ENOXAPARIN 40 MG/0.4 ML SQ SCH (17:00)
[2019-01-16] MEDS ORDERED: ONDANSETRON 4 MG/2 ML VIAL ONE (17:48)
[2019-01-16] MEDS ORDERED: ONDANSETRON 4 MG/2 ML VIAL IV PRN (18:12)
[2019-01-16] MEDS: RANITIDINE 150 MG TABLET PO SCH (20:43)
[2019-01-16] MEDS: TAMSULOSIN 0.4 MG SR CAP PO SCH (20:43)
[2019-01-16] MEDS: ATORVASTATIN 40 MG TAB PO SCH (20:44)
[2019-01-16] MEDS ORDERED: DOXYCYCLINE 100 MG in NA CHLORIDE 0.9% 100 ML IVPB SCH (21:00)
[2019-01-16 22:11] VITALS: BMI 27.1
[2019-01-17] MEDS: IPRATROPIUM BROM 0.5MG/2.5ML NEB SCH ×4 (02:00→19:45)
[2019-01-17 05:40] LABS: Absolute Lymphocytes (CBC) 0.4 K/uL (0.7-4.9); Basophils % 0.1 % (0-1.3); Hematocrit 35.5 % (39.6-49.0); Lymphocytes % 4.9 % (15.3-44.8); MPV 8.9 fL (7.6-11.3); Monocytes % 5.6 % (3.3-12.3); RBC Red Blood Cell Count 4.62 M/uL (4.33-5.43)
[2019-01-17 05:52] LABS: Albumin 2.8 g/dL (3.4-5.0); Phosphorus 3.8 mg/dL (2.5-4.9); Potassium 4.7 mmol/L (3.5-5.1)
[2019-01-17] MEDS: CARVEDILOL 12.5 MG TAB PO SCH ×2 (06:00→17:43)
[2019-01-17] MEDS: INSULIN -REGULAR HUMAN 50 UNIT/0.5 ML ML SQ SCH ×4 (07:30→21:00)
[2019-01-17] MEDS: ARFORMOTEROL TARTRATE 15 MCG/2 ML VIAL.NEB NEB SCH ×2 (07:59→19:45)
[2019-01-17] MEDS ORDERED: VANCOMYCIN 2 GM in NA CHLORIDE 0.9% 500 ML IVPB ONE (09:00)
[2019-01-17] MEDS: SOD FERRIC GLUC COMPLX/SUCROSE 125 MG in NA CHLORIDE 0.9% 100 ML IV SCH (09:15)
[2019-01-17] MEDS: FUROSEMIDE 40 MG/4 ML VIAL IV SCH ×2 (09:15→17:52)
[2019-01-17] MEDS: ROFLUMILAST 500 MCG TABLET PO SCH (09:16)
[2019-01-17] MEDS: AMIODARONE HCL 200 MG TAB PO SCH (09:16)
[2019-01-17] MEDS: ASPIRIN 81 MG CHEWABLE TABLET PO SCH (09:16)
[2019-01-17] MEDS: MAGNESIUM OXIDE 400 MG TAB PO SCH (09:16)
[2019-01-17] MEDS: predniSONE 20 MG TAB PO SCH ×2 (09:16→21:35)
[2019-01-17] MEDS: GUAIFENESIN 600 MG SA TAB PO SCH ×2 (09:17→21:37)
[2019-01-17] MEDS: SACUBITRIL/VALSARTAN 24/26 MG TAB PO SCH ×2 (09:17→21:37)
--- NOTE | 2019-01-17 10:38 | P.PN ---
Subjective Date of Service: 01/20/19 Primary Care Provider: Dr. Arana; Cardiology-Dr. Lindsay Chief Complaint: Shortness of breath Subjective: Improving Pt with HX of CAD , cardiomyopathy with low EF , COPD , DM and HTN admitted for SOB Emi Cr elevated to 1.9 from baseline ~1.2 Cardica cath recently but Cr was at baseline after Today feels better no rales on exam RFt slightly slowly improving on entresto and lasix Physical Examination - Vital Signs Temperature: 97.9 F Blood Pressure: 90/52 Pulse: 77 Respirations: 16 Pulse Ox (%): 96 - Physical Exam General: In no apparent distress, Oriented x3 Neck: Supple, JVD not distended (Rhonchi ), Without JVD or thyroid abnormality Respiratory: Diminished, Other (Rhonchi ) Cardiovascular: No edema, Regular rate/rhythm, Normal S1 S2, Abnormal S3, No gallops, No rubs, No murmurs Gastrointestinal: Normal bowel sounds Musculoskeletal: Other (Lt upper leg wound ) - Studies Laboratory Data (last 24 hrs) 01/17/19 05:15: Sodium 138, Potassium 4.7, BUN 36 H, Creatinine 1.62 H, Glucose 142 H, Phosphorus 3.8 01/17/19 05:15: WBC 8.8, Hgb 11.6 L, Hct 35.5 L, Plt Count 323 Microbiology Data (last 24 hrs): 01/15/19 15:20 Sputum Gram Stain - Final 01/15/19 15:20 Sputum Culture & Sensitivity - Final Meth Resistant Staph Aureus Medications List Reviewed: Yes Assessment And Plan - Current Problems (Diagnosis) (1) EMI (acute kidney injury) Current Visit: Yes Status: Acute - Plan Acute kidney injury, possibly due to cardiorenal syndrome +/- ARB CKD due to DM and HTN Cr slightly improving US no hydro , echogenic kidneys , UPC 0.2 F/U serology w/u and UA will monitor RFt while on entresto and lasix HTN controlled Afib rate controlled now Dm as per primary JOHN Cont IV iron
--- NOTE | 2019-01-17 11:27 | P.PN ---
Subjective Date of Service: 01/17/19 Primary Care Provider: Dr. Arana; Cardiology-Dr. Lindsay Chief Complaint: Shortness of breath Patient seen and examined at bedside. Chart reviewed. Case discussed with cardiology at this time. Doing well overall. Does complain of having some shortness of breath however improving markedly than before. Sputum culture is positive for MRSA. Continues to have cough however improved than before Review of Systems 10-point ROS is otherwise unremarkable Physical Examination - Vital Signs Temperature: 97.9 F Blood Pressure: 90/52 Pulse: 77 Respirations: 16 Pulse Ox (%): 96 - Physical Exam General: Alert, In no apparent distress HEENT: Atraumatic, PERRLA, EOMI Neck: Supple, JVD not distended Respiratory: Clear to auscultation bilaterally, Normal air movement Cardiovascular: Regular rate/rhythm, Normal S1 S2 Gastrointestinal: Normal bowel sounds, No tenderness Musculoskeletal: No tenderness Integumentary: No rashes Neurological: Normal speech, Normal tone, Normal affect Lymphatics: No axilla or inguinal lymphadenopathy - Studies Laboratory Data (last 24 hrs) 01/17/19 05:15: Sodium 138, Potassium 4.7, BUN 36 H, Creatinine 1.62 H, Glucose 142 H, Phosphorus 3.8 01/17/19 05:15: WBC 8.8, Hgb 11.6 L, Hct 35.5 L, Plt Count 323 Microbiology Data (last 24 hrs): 01/15/19 15:20 Sputum Gram Stain - Final 01/15/19 15:20 Sputum Culture & Sensitivity - Final Meth Resistant Staph Aureus Medications List Reviewed: Yes Assessment And Plan - Current Problems (Diagnosis) (1) Pneumonia Onset Date: 08/13/16 Current Visit: No Status: Acute Plan: Patient with recent pneumonia now again with sputum culture positive for MRSA -started on IV vanc. Will continue that here in the hospital Qualifiers: Pneumonia type: due to methicillin-resistant Staphylococcus aureus (MRSA) Laterality: left Lung location: lower lobe of lung Qualified Code(s): J15.212 - Pneumonia due to Methicillin resistant Staphylococcus aureus (2) Congestive heart failure Current Visit: Yes Status: Acute Plan: Patient with cardiomyopathy and systolic heart failure -echocardiogram with ejection fraction of 15-20% -cardiology consulted. Appreciated recommendations at this time -continue on IV Lasix and Entresto at this time -monitor patient closely here in the hospital -fluid restriction and sodium restriction at this time Qualifiers: Heart failure type: biventricular Qualified Code(s): I50.82 - Biventricular heart failure (3) Intermittent atrial fibrillation Current Visit: No Status: Chronic Plan: Patient with history of intermittent atrial fibrillation now with atrial fibrillation with RVR -status post cardioversion now with normal sinus rhythm -on amiodarone at this time -anti coagulation with aspirin and this time -will monitor closely (4) COPD exacerbation Onset Date: 06/14/16 Current Visit: No Status: Acute Plan: COPD exacerbation with recent pneumonia now with sputum culture positive for MRSA -duo nebs, steroids, oxygenation -patient uses home oxygenation -monitor closely here in the hospital -wean oxygen to the level that he uses at home (5) CAD (coronary artery disease) Current Visit: Yes Status: Chronic Plan: Patient with recent CABG done on December of 2018 -currently doing well overall -cardiology consulted. Appreciated recommendations at this time -continued on aspirin, Plavix, ACS medication Qualifiers: Coronary Disease-Associated Artery/Lesion type: [place] artery [place] vs. 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: with longterm use Diabetes mellitus complication status: without complication Qualified Code(s): E11.9 - Type 2 diabetes mellitus without complications; Z79.4 - [facility] (current) use of insulin (7) HTN (hypertension) Onset Date: 06/14/16 Current Visit: No Status: Chronic Plan: Currently stable and on medication Qualifiers: Hypertension type: essential hypertension Qualified Code(s): I10 - Essential (primary) hypertension - Plan Pending clinical improvement at this time Discharge Plan: Home Plan to discharge in: Greater than 2 days - Code Status/Comfort Care Code Status Assessed: Yes Critical Care: Yes
[2019-01-17] MEDS: LORAZEPAM 0.5 MG TABLET PO PRN (13:35)
--- NOTE | 2019-01-17 15:37 | PN ---
Subjective: Mr. Hauser is doing much better today. He is in sinus rhythm. Feels much better. Evelia jara has methicillin-resistant Staph aureus growing from the sputum, so he is on isolation. We have sta rted him on Entresto because of his very depressed ejection fraction. His creatinine is actually got better, not worse on Entresto. I think it is very likely this is going to help his heart condition significantly. We will keep him out of isolation another day. ROCAEL/NOHELIA Voice ID: [id number] Report ID: [id number]
[2019-01-17] MEDS: ENOXAPARIN 40 MG/0.4 ML SQ SCH (17:53)
[2019-01-17] MEDS: BENZONATATE 100 MG CAP PO PRN (18:43)
[2019-01-17] MEDS: RANITIDINE 150 MG TABLET PO SCH (21:35)
[2019-01-17] MEDS: ATORVASTATIN 40 MG TAB PO SCH (21:36)
[2019-01-17] MEDS: TAMSULOSIN 0.4 MG SR CAP PO SCH (21:36)
[2019-01-18] MEDS ORDERED: NA CHLORIDE 0.9% 250 ML ONE (01:31)
[2019-01-18] MEDS: IPRATROPIUM BROM 0.5MG/2.5ML NEB SCH ×4 (02:00→20:00)
[2019-01-18] MEDS: CARVEDILOL 12.5 MG TAB PO SCH ×2 (05:13→16:29)
[2019-01-18 06:43] LABS: Albumin 2.7 g/dL (3.4-5.0); Phosphorus 2.9 mg/dL (2.5-4.9); Potassium 4.2 mmol/L (3.5-5.1)
[2019-01-18] MEDS: INSULIN -REGULAR HUMAN 50 UNIT/0.5 ML ML SQ SCH ×4 (07:30→21:49)
[2019-01-18] MEDS: ARFORMOTEROL TARTRATE 15 MCG/2 ML VIAL.NEB NEB SCH ×2 (07:40→20:00)
[2019-01-18] MEDS: LEVALBUTEROL 0.63 MG/3 ML NEB NEB PRN ×2 (07:40→13:50)
[2019-01-18] MEDS: SOD FERRIC GLUC COMPLX/SUCROSE 125 MG in NA CHLORIDE 0.9% 100 ML IV SCH (09:35)
[2019-01-18] MEDS: FUROSEMIDE 40 MG/4 ML VIAL IV SCH (09:36)
[2019-01-18] MEDS: VANCOMYCIN 1.5 GM in NA CHLORIDE 0.9% 500 ML IVPB SCH (09:36)
[2019-01-18] MEDS: AMIODARONE HCL 200 MG TAB PO SCH (09:37)
[2019-01-18] MEDS: predniSONE 20 MG TAB PO SCH ×2 (09:37→21:51)
[2019-01-18] MEDS: ASPIRIN 81 MG CHEWABLE TABLET PO SCH (09:37)
[2019-01-18] MEDS: MAGNESIUM OXIDE 400 MG TAB PO SCH (09:37)
[2019-01-18] MEDS: SACUBITRIL/VALSARTAN 24/26 MG TAB PO SCH ×2 (09:37→21:53)
[2019-01-18] MEDS: GUAIFENESIN 600 MG SA TAB PO SCH ×2 (09:38→21:00)
[2019-01-18] MEDS: ROFLUMILAST 500 MCG TABLET PO SCH (09:38)
--- NOTE | 2019-01-18 11:36 | P.PN ---
Subjective Date of Service: 01/18/19 Primary Care Provider: Dr. Arana; Cardiology-Dr. Lindsay Chief Complaint: Shortness of breath Patient seen and examined at bedside. Chart reviewed. Case discussed with cardiology at this time. Doing well overall. No complaints to offer at this time.. Sputum culture is positive for MRSA. Review of Systems 10-point ROS is otherwise unremarkable Physical Examination - Vital Signs Temperature: 97.3 F Blood Pressure: 105/50 Pulse: 75 Respirations: 19 Pulse Ox (%): 97 - Physical Exam General: Alert, In no apparent distress HEENT: Atraumatic, PERRLA, EOMI Neck: Supple, JVD not distended Respiratory: Normal air movement, Crackles/rales Cardiovascular: Regular rate/rhythm, Normal S1 S2 Gastrointestinal: Normal bowel sounds, No tenderness Musculoskeletal: No tenderness Integumentary: No rashes Neurological: Normal speech, Normal tone, Normal affect Lymphatics: No axilla or inguinal lymphadenopathy - Studies Laboratory Data (last 24 hrs) 01/18/19 05:55: Sodium 138, Potassium 4.2, BUN 35 H, Creatinine 1.29, Glucose 155 H, Phosphorus 2.9 Microbiology Data (last 24 hrs): 01/15/19 15:20 Sputum Gram Stain - Final 01/15/19 15:20 Sputum Culture & Sensitivity - Final Meth Resistant Staph Aureus Medications List Reviewed: Yes Assessment And Plan - Current Problems (Diagnosis) (1) Pneumonia Onset Date: 08/13/16 Current Visit: No Status: Acute Plan: Patient with recent pneumonia now again with sputum culture positive for MRSA -started on IV vanc. Will continue that here in the hospital -will need PICC line placement Qualifiers: Pneumonia type: due to methicillin-resistant Staphylococcus aureus (MRSA) Laterality: left Lung location: lower lobe of lung Qualified Code(s): J15.212 - Pneumonia due to Methicillin resistant Staphylococcus aureus (2) Congestive heart failure Current Visit: Yes Status: Acute Plan: Patient with cardiomyopathy and systolic heart failure -echocardiogram with ejection fraction of 15-20% -cardiology consulted. Appreciated recommendations at this time -continue on IV Lasix and Entresto at this time. Will switch to p.o. Lasix tomorrow -monitor patient closely here in the hospital -fluid restriction and sodium restriction at this time Qualifiers: Heart failure type: biventricular Qualified Code(s): I50.82 - Biventricular heart failure (3) Intermittent atrial fibrillation Current Visit: No Status: Chronic Plan: Patient with history of intermittent atrial fibrillation now with atrial fibrillation with RVR -status post cardioversion now with normal sinus rhythm -on amiodarone at this time -anti coagulation with aspirin and this time -will monitor closely (4) COPD exacerbation Onset Date: 06/14/16 Current Visit: No Status: Acute Plan: COPD exacerbation with recent pneumonia now with sputum culture positive for MRSA -duo nebs, steroids, oxygenation -patient uses home oxygenation -monitor closely here in the hospital -wean oxygen to the level that he uses at home (5) CAD (coronary artery disease) Current Visit: Yes Status: Chronic Plan: Patient with recent CABG done on December of 2018 -currently doing well overall -cardiology consulted. Appreciated recommendations at this time -continued on aspirin, Plavix, ACS medication Qualifiers: Coronary Disease-Associated Artery/Lesion type: [place] artery [place] vs. 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 Will transfer patient to the regular floor and monitor closely Discharge Plan: Home Plan to discharge in: Greater than 2 days - Code Status/Comfort Care Code Status Assessed: Yes Critical Care: Yes
--- NOTE | 2019-01-18 11:45 | P.PN ---
Subjective Date of Service: 01/20/19 Primary Care Provider: Dr. Arana; Cardiology-Dr. Lindsay Chief Complaint: Shortness of breath Pt with HX of CAD , cardiomyopathy with low EF , COPD , DM and HTN admitted for SOB Emi Cr elevated to 1.9 from baseline ~1.2 Cardiac cath recently but Cr was at baseline after Today feels better minimal rales on exam Cr down to baseline BP borderline can switch lasix to PO can be transferred to the floor from nephrology point of view Physical Examination - Vital Signs Temperature: 97.3 F Blood Pressure: 105/50 Pulse: 75 Respirations: 19 Pulse Ox (%): 97 - Physical Exam General: In no apparent distress, Oriented x3 HEENT: Atraumatic Neck: Supple, Without JVD or thyroid abnormality Respiratory: Other (minimal basal rales ) Cardiovascular: No edema, Regular rate/rhythm, Normal S1 S2, Abnormal S3, No gallops, No rubs, No murmurs Gastrointestinal: Normal bowel sounds, Soft and benign - Studies Laboratory Data (last 24 hrs) 01/18/19 05:55: Sodium 138, Potassium 4.2, BUN 35 H, Creatinine 1.29, Glucose 155 H, Phosphorus 2.9 Microbiology Data (last 24 hrs): 01/15/19 15:20 Sputum Gram Stain - Final 01/15/19 15:20 Sputum Culture & Sensitivity - Final Meth Resistant Staph Aureus Medications List Reviewed: Yes Assessment And Plan - Current Problems (Diagnosis) (1) EMI (acute kidney injury) Current Visit: Yes Status: Acute - Plan Acute kidney injury, Due to cardiorenal syndrome CKD due to DM and HTN Cr slightly improving US no hydro , echogenic kidneys , UPC 0.2 will monitor RFt while on entresto and lasix HTN borderline Afib rate controlled now Dm as per primary JOHN Cont IV iron
--- NOTE | 2019-01-18 15:10 | PN ---
Vital signs are excellent. He is not having any severe symptoms. I think he is stable enough to be transferred out of ICU. I think repeating an echocardiogram in about a month will be very important to do, likely to tell us if his ejection fraction is getting better. I think he is doing well and ho pe he could possibly be discharged home soon. ROCAEL/NOHELIA Voice ID: [id number] Report ID: [id number]
[2019-01-18] MEDS: ENOXAPARIN 40 MG/0.4 ML SQ SCH (16:30)
[2019-01-18] MEDS ORDERED: FUROSEMIDE 40 MG/4 ML VIAL IV SCH (17:00)
[2019-01-18] MEDS: LORAZEPAM 0.5 MG TABLET PO PRN (19:47)
[2019-01-18] MEDS: TAMSULOSIN 0.4 MG SR CAP PO SCH (21:51)
[2019-01-18] MEDS: RANITIDINE 150 MG TABLET PO SCH (21:51)
[2019-01-18] MEDS: ATORVASTATIN 40 MG TAB PO SCH (21:51)
[2019-01-19] MEDS: IPRATROPIUM BROM 0.5MG/2.5ML NEB SCH ×4 (02:00→20:05)
[2019-01-19 04:30] LABS: Absolute Lymphocytes (CBC) 0.5 K/uL (0.7-4.9); Basophils % 0.3 % (0-1.3); Hematocrit 37.2 % (39.6-49.0); MPV 8.8 fL (7.6-11.3); Monocytes % 8.3 % (3.3-12.3); RBC Red Blood Cell Count 4.82 M/uL (4.33-5.43)
[2019-01-19 05:01] LABS: Albumin 2.7 g/dL (3.4-5.0); Bilirubin Total 0.3 mg/dL (0.2-1.0); Magnesium 2.5 mg/dL (1.8-2.4); Potassium 4.2 mmol/L (3.5-5.1); Protein, Total 6.3 g/dL (6.4-8.2)
[2019-01-19] MEDS: CARVEDILOL 12.5 MG TAB PO SCH ×2 (06:19→17:37)
[2019-01-19] MEDS: INSULIN -REGULAR HUMAN 50 UNIT/0.5 ML ML SQ SCH ×4 (07:30→21:00)
[2019-01-19] MEDS: ARFORMOTEROL TARTRATE 15 MCG/2 ML VIAL.NEB NEB SCH ×2 (08:15→20:05)
[2019-01-19] MEDS ORDERED: FUROSEMIDE 40 MG TABLET PO SCH (09:00)
[2019-01-19] MEDS: ROFLUMILAST 500 MCG TABLET PO SCH (10:09)
[2019-01-19] MEDS: SACUBITRIL/VALSARTAN 24/26 MG TAB PO SCH ×2 (10:09→20:34)
[2019-01-19] MEDS: GUAIFENESIN 600 MG SA TAB PO SCH ×2 (10:10→20:34)
[2019-01-19] MEDS: BENZONATATE 100 MG CAP PO PRN (10:10)
[2019-01-19] MEDS: predniSONE 20 MG TAB PO SCH ×2 (10:11→20:34)
[2019-01-19] MEDS: ASPIRIN 81 MG CHEWABLE TABLET PO SCH (10:11)
[2019-01-19] MEDS: MAGNESIUM OXIDE 400 MG TAB PO SCH (10:11)
[2019-01-19] MEDS: AMIODARONE HCL 200 MG TAB PO SCH (10:14)
[2019-01-19] MEDS: VANCOMYCIN 1.5 GM in NA CHLORIDE 0.9% 500 ML IVPB SCH (11:16)
[2019-01-19] MEDS: SOD FERRIC GLUC COMPLX/SUCROSE 125 MG in NA CHLORIDE 0.9% 100 ML IV SCH (11:16)
[2019-01-19] MEDS: FUROSEMIDE 40 MG TABLET PO SCH ×2 (11:17→17:29)
--- NOTE | 2019-01-19 13:11 | P.PN ---
Subjective Date of Service: 01/19/19 Primary Care Provider: Dr. Arana; Cardiology-Dr. Lindsay Chief Complaint: Shortness of breath Patient seen and examined at bedside. Chart reviewed. Case discussed with cardiology at this time. Doing well overall. No complaints to offer at this time.. Sputum culture is positive for MRSA. Review of Systems 10-point ROS is otherwise unremarkable Physical Examination - Vital Signs Temperature: 97.2 F Blood Pressure: 100/58 Pulse: 77 Respirations: 18 Pulse Ox (%): 97 - Physical Exam General: Alert, In no apparent distress HEENT: Atraumatic, PERRLA, EOMI Neck: Supple, JVD not distended Respiratory: Clear to auscultation bilaterally, Normal air movement Cardiovascular: Regular rate/rhythm, Normal S1 S2 Gastrointestinal: Normal bowel sounds, No tenderness Musculoskeletal: No tenderness Integumentary: No rashes Neurological: Normal speech, Normal tone, Normal affect Lymphatics: No axilla or inguinal lymphadenopathy - Studies Laboratory Data (last 24 hrs) 01/19/19 03:57: WBC 10.6 D, Hgb 11.8 L, Hct 37.2 L, Plt Count 350 01/19/19 03:57: Sodium 139, Potassium 4.2, BUN 34 H, Creatinine 1.26, Glucose 121 H, Phosphorus 3.0, Magnesium 2.5 H, Total Bilirubin 0.3, AST 25, ALT 48, Alkaline Phosphatase 77 Medications List Reviewed: Yes Assessment And Plan - Current Problems (Diagnosis) (1) Pneumonia Onset Date: 08/13/16 Current Visit: No Status: Acute Plan: Patient with recent pneumonia now again with sputum culture positive for MRSA -started on IV vanc. Will continue that here in the hospital -will need PICC line placement -will need total 14 day treatment for MRSA. day 10/19 Qualifiers: Pneumonia type: due to methicillin-resistant Staphylococcus aureus (MRSA) Laterality: left Lung location: lower lobe of lung Qualified Code(s): J15.212 - Pneumonia due to Methicillin resistant Staphylococcus aureus (2) Congestive heart failure Current Visit: Yes Status: Acute Plan: Patient with cardiomyopathy and systolic heart failure -echocardiogram with ejection fraction of 15-20% -cardiology consulted. Appreciated recommendations at this time -continue on PO Lasix and Entresto at this time. -monitor patient closely here in the hospital -fluid restriction and sodium restriction at this time Qualifiers: Heart failure type: biventricular Qualified Code(s): I50.82 - Biventricular heart failure (3) Intermittent atrial fibrillation Current Visit: No Status: Chronic Plan: Patient with history of intermittent atrial fibrillation now with atrial fibrillation with RVR -status post cardioversion now with normal sinus rhythm -on amiodarone at this time -anti coagulation with aspirin and this time -will monitor closely (4) COPD exacerbation Onset Date: 06/14/16 Current Visit: No Status: Acute Plan: COPD exacerbation with recent pneumonia now with sputum culture positive for MRSA -duo nebs, steroids, oxygenation -patient uses home oxygenation -monitor closely here in the hospital -wean oxygen to the level that he uses at home (5) CAD (coronary artery disease) Current Visit: Yes Status: Chronic Plan: Patient with recent CABG done on December of 2018 -currently doing well overall -cardiology consulted. Appreciated recommendations at this time -continued on aspirin, Plavix, ACS medication Qualifiers: Coronary Disease-Associated Artery/Lesion type: [place] artery [place] vs. 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 Discharge Plan: Home Plan to discharge in: 48 Hours - Code Status/Comfort Care Code Status Assessed: Yes Critical Care: No
--- NOTE | 2019-01-19 14:41 | PN ---
Subjective: Mr. Hauser is doing much better over the past several days. He has normal rhythm. Evelia jara is on Entresto. His renal function is actually improving on Entresto. Creatinine today is 1.26. I think his cardiac output is coming up. I will order an echocardiogram sometime about a month from now as an outpatient and we will see if he really needs to have a defibrillator or not. I suspect he will really need one based on how he is doing now. ROCAEL/NOHELIA Voice ID: [id number] Report ID: [id number]
[2019-01-19] MEDS: LEVALBUTEROL 0.63 MG/3 ML NEB NEB PRN (15:25)
[2019-01-19] MEDS: ENOXAPARIN 40 MG/0.4 ML SQ SCH (17:30)
[2019-01-19] MEDS: TAMSULOSIN 0.4 MG SR CAP PO SCH (20:34)
[2019-01-19] MEDS: LORAZEPAM 0.5 MG TABLET PO PRN (20:34)
[2019-01-19] MEDS: ATORVASTATIN 40 MG TAB PO SCH (20:34)
[2019-01-19] MEDS: RANITIDINE 150 MG TABLET PO SCH (20:35)
[2019-01-20] MEDS: IPRATROPIUM BROM 0.5MG/2.5ML NEB SCH ×4 (01:00→20:00)
--- NOTE | 2019-01-20 04:03 | PN ---
Date of Progress Note: 01/20/2019 Chief Complaint: Acute kidney injury on chronic kidney disease stage 3. History Of Present Illness: The patient has history of diabetes mellitus, hypertension, and cardiomy opathy, systolic dysfunction with large ejection fraction. He was admitted because of shortness of b reath, was found to have congestive heart failure exacerbation with severe systolic dysfunction. The patient had cardiac catheterization recently done. The patient is feeling better. Blood pressure is stabilizing. The patient was switched to p.o. Lasi x to control congestive heart failure. Review of Systems: Denies fever, chills. Physical Examination: Lungs: Few crackles at bases. Heart: S1, S2. Abdomen: Soft, benign. Extremities: Edema present in both legs. Laboratory Data: Hemoglobin 11.8, WBC 10.6, platelet count 350,000. Chemistry showed sodium 139, po tassium 4.2, chloride 103, CO2 32, BUN 34, creatinine 1.26, glucose 121, phosphorus 3.0, magnesium 2. 5. Impression And Plan: 1.Cardiorenal syndrome, [id number] kidney injury with congestive heart failure exacerbation. Continue Lasix. Monitor fluid balance. Avoid nephrotoxic medication. 2.Chronic kidney disease stage 3 in setting of diabetes and hypertension. The patient will continue Lasix for cardiorenal syndrome. The patient is on amiodarone for cardiac arrhythmia. 3.Atrial fibrillation, rate controlled. 4.Diabetes mellitus. Continue insulin. Monitor proteinuria and hemoglobin A1c. JORDYN/MODL Voice ID: [id number] Report ID: [id number]
[2019-01-20] MEDS: CARVEDILOL 12.5 MG TAB PO SCH ×2 (05:36→18:03)
[2019-01-20 06:14] LABS: Albumin 2.8 g/dL (3.4-5.0); Bilirubin Total 0.2 mg/dL (0.2-1.0); Magnesium 2.6 mg/dL (1.8-2.4); Phosphorus 2.9 mg/dL (2.5-4.9); Potassium 4.3 mmol/L (3.5-5.1); Protein, Total 6.2 g/dL (6.4-8.2)
[2019-01-20 06:23] LABS: Absolute Lymphocytes (CBC) 0.5 K/uL (0.7-4.9); Basophils % 0.1 % (0-1.3); Hematocrit 37.1 % (39.6-49.0); Lymphocytes % 4.3 % (15.3-44.8); MPV 8.7 fL (7.6-11.3); Monocytes % 6.6 % (3.3-12.3); RBC Red Blood Cell Count 4.84 M/uL (4.33-5.43)
[2019-01-20 07:23] LABS: Blood Morphology Comment NOT SEEN (NOT SEEN); Platelet Estimate ADEQ; Urine White Blood Cell Casts OK
[2019-01-20] MEDS: INSULIN -REGULAR HUMAN 50 UNIT/0.5 ML ML SQ SCH ×4 (07:30→20:17)
[2019-01-20] MEDS: ARFORMOTEROL TARTRATE 15 MCG/2 ML VIAL.NEB NEB SCH ×2 (07:37→20:00)
[2019-01-20] MEDS: Pharmacy Consult 1 EA XX SCH (09:00)
[2019-01-20] MEDS: BENZONATATE 100 MG CAP PO PRN ×2 (10:24→21:27)
[2019-01-20] MEDS: SACUBITRIL/VALSARTAN 24/26 MG TAB PO SCH ×2 (10:24→21:26)
[2019-01-20] MEDS: GUAIFENESIN 600 MG SA TAB PO SCH ×2 (10:24→21:00)
[2019-01-20] MEDS: AMIODARONE HCL 200 MG TAB PO SCH (10:25)
[2019-01-20] MEDS: ASPIRIN 81 MG CHEWABLE TABLET PO SCH (10:25)
[2019-01-20] MEDS: FUROSEMIDE 40 MG TABLET PO SCH ×2 (10:25→16:58)
[2019-01-20] MEDS: ROFLUMILAST 500 MCG TABLET PO SCH (10:26)
[2019-01-20] MEDS: predniSONE 20 MG TAB PO SCH ×2 (10:26→21:26)
[2019-01-20] MEDS: MAGNESIUM OXIDE 400 MG TAB PO SCH (10:27)
--- NOTE | 2019-01-20 11:21 | P.PN ---
Subjective Date of Service: 01/20/19 Primary Care Provider: Dr. Arana; Cardiology-Dr. Lindsay Chief Complaint: Shortness of breath Subjective: Improving Pt with HX of CAD , cardiomyopathy with low EF , COPD , DM and HTN admitted for SOB Emi Cr elevated to 1.9 from baseline ~1.2 Cardiac cath recently but Cr was at baseline after Today no new complaints did well with PT Cr stable now Plan to discharge with IV vanco monitor vanco level can be discharged from nephrology point of view and F/u with nephrology clinic in 2-3 Wks Physical Examination - Vital Signs Temperature: 97.3 F Blood Pressure: 105/50 Pulse: 75 Respirations: 19 Pulse Ox (%): 97 - Physical Exam General: In no apparent distress, Oriented x3 HEENT: Atraumatic Neck: Supple, Without JVD or thyroid abnormality Respiratory: Clear to auscultation bilaterally, Normal air movement Cardiovascular: No edema, Normal pulses, Regular rate/rhythm, Normal S1 S2, No gallops, No rubs, No murmurs Gastrointestinal: Normal bowel sounds, Soft and benign Integumentary: No rashes - Studies Laboratory Data (last 24 hrs) 01/20/19 05:36: WBC 11.2 H, Hgb 12.0 L, Hct 37.1 L, Plt Count 367 01/20/19 05:36: Sodium 139, Potassium 4.3, BUN 35 H, Creatinine 1.32 H, Glucose 173 H, Phosphorus 2.9, Magnesium 2.6 H, Total Bilirubin 0.2, AST 26, ALT 65, Alkaline Phosphatase 80 Medications List Reviewed: Yes Assessment And Plan - Current Problems (Diagnosis) (1) EMI (acute kidney injury) Current Visit: Yes Status: Acute - Plan Acute kidney injury, Due to cardiorenal syndrome CKD due to DM and HTN Cr stable and near baseline US no hydro , echogenic kidneys , UPC 0.2 will monitor RFt while on entresto and lasix HTN borderline Afib rate controlled now Dm as per primary JOHN on IV iron PNA sputum MRSA on vancomycin
[2019-01-20] MEDS: SOD FERRIC GLUC COMPLX/SUCROSE 125 MG in NA CHLORIDE 0.9% 100 ML IV SCH (11:46)
--- NOTE | 2019-01-20 12:01 | RAD REPORT ---
EXAM DESCRIPTION: RAD - Chest Single View - 01/20/2019 11:55 am CLINICAL HISTORY: Picc line placement COMPARISON: Chest Single View dated 01/16/2019; Chest Single View dated 01/15/2019; Chest Single View dated 01/14/2019; Chest Pa And Lat (2 Views) dated 01/12/2019 FINDINGS: Portable chest was obtained following placement of a left upper extremity PICC line. The c atheter tip projects over the SVC..
--- NOTE | 2019-01-20 12:25 | P.PN ---
Subjective Date of Service: 01/20/19 Primary Care Provider: Dr. Arana; Cardiology-Dr. Lindsay Chief Complaint: COPD exacerbation sputum is Mr SA positive Subjective: Improving (Patient is doing better still has cough and congestion) Review of Systems Respiratory: Cough, Shortness of Breath Physical Examination - Vital Signs Temperature: 97.3 F Blood Pressure: 105/50 Pulse: 75 Respirations: 19 Pulse Ox (%): 97 - Physical Exam General: Alert, Oriented x3 Neck: Supple Respiratory: Expiratory wheezes Cardiovascular: No edema, Normal S1 S2 - Studies Laboratory Data (last 24 hrs) 01/20/19 05:36: WBC 11.2 H, Hgb 12.0 L, Hct 37.1 L, Plt Count 367 01/20/19 05:36: Sodium 139, Potassium 4.3, BUN 35 H, Creatinine 1.32 H, Glucose 173 H, Phosphorus 2.9, Magnesium 2.6 H, Total Bilirubin 0.2, AST 26, ALT 65, Alkaline Phosphatase 80 Medications List Reviewed: Yes Assessment & Plan - Problems (Diagnosis) (1) COPD exacerbation Onset Date: 06/14/16 Current Visit: No Status: Acute Plan: Patient is doing better he has severe congestive heart failure Mr isolated from the sputum sensitive to Bactrim patient has mild renal impairment mildly elevated white count oxygenation satisfactory patient is on maximum bronchodilator therapy ovoid theophylline apparently patient was discharged from from [facility] on Bactrim and ciprofloxacin am not sure he was taking at Physician Review Additional Text: Impression: Atrial fibrillation with RVR Chronic Biventricular systolic CHF CAD with prior CABG x2 vessel Diabetes mellitus type 2, non insulin dependent Hypertension Suspect chronic renal disease COPD on home oxygen PVD History of tobacco/alcohol use History of bladder cancer Plan: Atrial fibrillation with RVR: Patient NPO for electrocardioversion. Cardioversion was successful. Patient now in normal sinus rhythm. Patient continues on amiodarone. Patient will likely require chronic anti coagulation therapy. Cardiology to further monitor and adjust. Anticipate discharge in the next 1-2 days with clinical improvement and stability of heart rate. I will turn the service over to Dr. Chavez tomorrow. I will go over the plan of care with her. Chronic Biventricular systolic CHF: This appears stable at this time. Continue with current erratic therapy. CAD with prior CABG x2 vessel: Patient with recent CABG done December of 2018. Diabetes mellitus type 2, non insulin dependent: Will monitor Accu-Cheks. Metformin has been discontinued due to chronic renal disease. Will need to consider basal insulin at discharge. Hypertension: Cardiology has adjusted medication. Suspect chronic renal disease: Suspect chronic renal disease. Case discussed with nephrology. Medications including losartan and metformin have been discontinued. Further adjustment in medication will be required. Nephrology to further address. COPD on home oxygen: Continue COPD medication. Pulmonology to further evaluate. Patient with recent pneumonia. Will monitor closely. Maintain sats above 90%. PVD: Continue as above History of tobacco/alcohol use: Continue to address lifestyle modification education. History of bladder cancer: Will need to discuss further with patient on what is being done for this.
[2019-01-20 12:29] LABS: Vitamin D 1,25-Dihydroxy Total 39 pg/mL (18-72); Vitamin D,1,25-OH2, D2 <8 pg/mL
[2019-01-20] MEDS: VANCOMYCIN 1.5 GM in NA CHLORIDE 0.9% 500 ML IVPB SCH (12:49)
--- NOTE | 2019-01-20 12:57 | P.DS ---
Admission Date: 01/14/19 Discharge Date: 01/20/19 Primary Care Provider: Dr. Arana; Cardiology-Dr. Lindsay Disposition: ROUTINE DISCHARGE Discharge Condition: GOOD Reason for Admission: COPD exacerbation sputum is Mr SA positive Consultations: Cardiology and Pulmonology Procedures: Cardioversion - Problems (1) Pneumonia Onset Date: 08/13/16 Current Visit: No Status: Acute Qualifiers: Pneumonia type: due to methicillin-resistant Staphylococcus aureus (MRSA) Laterality: left Lung location: lower lobe of lung Qualified Code(s): J15.212 - Pneumonia due to Methicillin resistant Staphylococcus aureus (2) Congestive heart failure Current Visit: Yes Status: Acute Qualifiers: Heart failure type: biventricular Qualified Code(s): I50.82 - Biventricular heart failure (3) Intermittent atrial fibrillation Current Visit: No Status: Chronic (4) COPD exacerbation Onset Date: 06/14/16 Current Visit: No Status: Acute (5) CAD (coronary artery disease) Current Visit: Yes Status: Chronic Qualifiers: Coronary Disease-Associated Artery/Lesion type: [place] artery [place] vs. 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 Lindsay. Patient had reported shortness of breath over the past 2 weeks. Patient reports that he was hospitalized and transferred to [facility] in December 2018. At that time he had pneumonia with biventricular CHF. The patient was found to have significant CAD and required CABG x2 vessels. Since being discharged from the hospital he has been having increasing shortness of breath. Patient has other multiple medical problems include diabetes, hypertension, CAD, PVD, COPD, CHF, and bladder cancer. Patient was evaluated by cardiology. He was transferred as a direct admit due to atrial fibrillation and RVR. When I evaluated the patient, he did not appear in any significant distress. He did report increasing shortness of breath. He denied any edema to the lower extremities. Patient takes multiple medications. Patient stable at this time. He denies any fever, Hospital Course: Overall during the hospital stay patient remained stable Patient was initially admitted to the hospital for is difficulty breathing. Patient was recently discharged from [facility] after he was admitted to the hospital for heart attack and had a CABG and was also found to have lobar pneumonia. Patient when he was admitted here in the hospital was found to have atrial fibrillation with RVR along with CHF exacerbation. Cardiology was consulted at that time. And patient was successfully cardioverted to sinus rhythm by cardiology. Patient was started on amiodarone along with an anti coagulation as well. Patient did well overall in terms of atrial fibrillation with RVR. For his CHF exacerbation patient was started on IV Lasix initially along with Entresto. Patient had an echocardiogram done which was consistent with 15-20% ejection fraction and global cardiomyopathy. Cardiology recommended the patient be continued on IV Lasix and Entresto until adequate diuresis has been obtained. Once patient was adequately diuresed patient was switched over to p.o. Lasix. While here in the hospital patient was also complaining of having a cough that had not gotten better since he was discharged from the hospital. X-ray was consistent with lobar pneumonia. Sputum culture was positive for MRSE sensitive to Bactrim and vancomycin. Initially the plan was to discharge patient on IV vancomycin for. PICC line was placed as well. After having detailed discussion with the pharmacy local along with family patient was discharged from [facility] on Cipro and Bactrim. After verification that prescription was picked up the decision was made to discharge patient on IV vancomycin as he failed outpatient therapy with Bactrim and ciprofloxacin. Patient also had acute kidney injury while here in the hospital which resolved after he was monitor here and had fluid restriction. Patient had marked improvement in his symptoms and was thus transferred to the regular medical surgical floor. After patient was able to ambulate with physical therapy patient was discharged home under stable condition was set up with home health to get IV antibiotics for total of 7 days. Patient was asked to follow up with primary care provider along with pulmonology in about 1-2 weeks post discharge. Vital Signs/Physical Exam: Temp Pulse Resp BP Pulse Ox 97.3 F 75 19 105/50 L 97 01/20/19 12:25 01/20/19 12:25 01/20/19 12:25 01/20/19 12:25 01/20/19 12:25 General: Alert, In no apparent distress HEENT: Atraumatic, PERRLA, EOMI Neck: Supple, JVD not distended Respiratory: Normal air movement, Expiratory wheezes, Inspiratory wheezes Cardiovascular: Regular rate/rhythm, Normal S1 S2 Gastrointestinal: Normal bowel sounds, No tenderness Musculoskeletal: No tenderness Integumentary: No rashes Neurological: Normal speech, Normal tone, Normal affect Lymphatics: No axilla or inguinal lymphadenopathy Laboratory Data at Discharge: WBC 11.2 K/uL (4.3-10.9) H 01/20/19 05:36 Hgb 12.0 g/dL (13.6-17.9) L 01/20/19 05:36 Hct 37.1 % (39.6-49.0) L 01/20/19 05:36 Plt Count 367 K/uL (152-406) 01/20/19 05:36 PT 13.6 SECONDS (9.5-12.5) H 01/14/19 15:03 INR 1.16 01/14/19 15:03 APTT 51.8 SECONDS (24.3-36.9) H 01/15/19 11:00 Sodium 139 mmol/L (136-145) 01/20/19 05:36 Potassium 4.3 mmol/L (3.5-5.1) 01/20/19 05:36 BUN 35 mg/dL (7-18) H 01/20/19 05:36 Creatinine 1.32 mg/dL (0.55-1.3) H 01/20/19 05:36 Glucose 173 mg/dL (74-106) H 01/20/19 05:36 Phosphorus 2.9 mg/dL (2.5-4.9) 01/20/19 05:36 Magnesium 2.6 mg/dL (1.8-2.4) H 01/20/19 05:36 Total Bilirubin 0.2 mg/dL (0.2-1.0) 01/20/19 05:36 AST 26 U/L (15-37) 01/20/19 05:36 ALT 65 U/L (12-78) 01/20/19 05:36 Alkaline Phosphatase 80 U/L (45-117) 01/20/19 05:36 Troponin I 0.02 ng/mL (0.0-0.045) 01/14/19 15:03 Triglycerides 67 mg/dL (<150) 01/15/19 05:39 Cholesterol 97 mg/dL (<200) 01/15/19 05:39 HDL Cholesterol 62 mg/dL (40-60) H 01/15/19 05:39 Cholesterol/HDL Ratio 1.56 01/15/19 05:39 Home Medications: Metformin ER [Glucophage ER*] 500 mg PO BID 06/02/14 Tamsulosin [Flomax*] 0.4 mg PO BEDTIME 06/02/14 Aspirin 81 mg PO DAILY 08/10/16 Guaifenesin [Mucinex] 600 mg PO BID 08/10/16 Amiodarone HCl [Pacerone] 1 tab PO DAILY 01/14/19 Atorvastatin Calcium 1 tab PO BEDTIME 01/14/19 Bumetanide [Bumex] 1 tab PO BID 01/14/19 Clopidogrel Bisulfate [Clopidogrel] 75 mg PO DAILY 01/14/19 Fluticasone Propionate [Flovent Diskus] 1 puff IH BID PRN 01/14/19 Fluticasone/Vilanterol [Breo Ellipta 200-25 Mcg INH] 1 puff IH DAILY PRN Hydrocodone 5/APAP 325 [[place] 5/325*] 1 tab PO DAILY PRN 01/14/19 Ipratropium/Albuterol Sulfate [Combivent Respimat 20-100 Mcg] 2 puff IH Q4H PRN 01/14/19 Ipratropium/Albuterol Sulfate [Iprat-Albut 0.5-3(2.5) mg/3 ml] 3 ml IH Q4H PRN 01/14/19 Losartan Potassium 0.5 tab PO DAILY 01/14/19 Magnesium Oxide [Magnesium] 1 tab PO DAILY 01/14/19 Tramadol HCl [Ultram] 1 tab PO Q6H PRN 01/14/19 Zinc Oxide/Petrolatum,White [[place] Moist Barrier Cream] 1 appl TOP BID 04/25 Carvedilol [Coreg*] 12.5 mg PO BID 6AM 6PM #60 tab 01/20/19 Sacubitril/Valsartan [Entresto 24 mg-26 mg Tablet] 1 tab PO BID #60 tab New Medications: Carvedilol [Coreg*] 12.5 mg PO BID 6AM 6PM #60 tab Sacubitril/Valsartan [Entresto 24 mg-26 mg Tablet] 1 tab PO BID #60 tab Diet: Regular Activity: Ad brandon Followup: Jose Lindsay MD [Family Provider] -
[2019-01-20] MEDS: ENOXAPARIN 40 MG/0.4 ML SQ SCH (17:00)
[2019-01-20] MEDS ORDERED: SODIUM CHLORIDE 0.9% 10ML INJ IV PRN ×2 (17:00)
[2019-01-20] MEDS: LORAZEPAM 0.5 MG TABLET PO PRN (19:50)
--- NOTE | 2019-01-20 20:42 | CON ---
Date of Consultation: 01/14/2019 Reason For Admission: Acute exacerbation of congestive heart failure and atrial flutter. Mr. Hauser was admitted to Dr. Long' service. History Of Present Illness: Mr. Hauser is a 73-year-old white male, he is known to me from previo us office visits and admission. He recently had coronary artery bypass surgery at [facility] by Dr. Perez approximately 3 weeks ago. He has had difficulty with a COPD exacerbation as well as congestive heart failure since his bypass. He has been seen me over the last 48 hours because of shortness of breath, PND, orthopnea, palpitations, atrial flutter. His beta blockers were increased . He has been on blood thinners, but was seen in the office and was very dyspneic in atrial flutter rate of 130, 140, and was admitted to the ICU for further evaluation and treatment. Past Medical History: He has a history of diabetes, COPD, coronary artery disease status post CABG x 2, peripheral vascular disease. He has had bladder cancer in the past. Allergies: CEPHALOSPORIN, SULFA, AND TETANUS. Review of Systems: Negative. Social History: Negative. Family History: Noncontributory. Medications: At home include insulin, metformin, Flomax, theophyline, multiple inhalers, valsartan, aspirin, Mucinex, Zantac, sotalol 80 mg 1 p.o. b.i.d. as well as Levaquin 500 mg daily. Physical Examination: General: He was dyspneic, diaphoretic. Vital Signs: Tachycardic at a rate of 130. Afebrile. Blood pressure was adequate 130/70. HEENT: Negative. Neck: Supple without any bruit, lymphadenopathy, JVD, or thyromegaly. Chest: Revealed bilateral rales and expiratory wheezes. Cardiac: Revealed atrial flutter. Abdomen: Benign. Extremities: Revealed no clubbing, cyanosis. He had 1+ edema. Neurological: He was nonfocal. His pulses were present distally bilaterally. Skin: Moist. Diagnostic Data: When he came in he had an O2 saturation of 93% on 3 L. He was breathing at 32 time s a minute. His pO2 was 71, pCO2 was 46 and a pH 7.45. His chest x-ray shows CHF. EKG showed atria l flutter. Creatinine 1.92, hemoglobin 10.8. He had a normal white count. His INR is 1.16. His gl ucose was 151 with a normal potassium. Magnesium was 2.8. His theophylline level was 25.3. Impression And Plan: 1.Coronary artery disease, status post coronary artery bypass grafting x2, approximately 3 weeks ago with acute on chronic exacerbation of congestive heart failure. 2.Atrial flutter. 3.Severe chronic obstructive pulmonary disease. 4.Dyslipidemia. 5.Diabetes. 6.Elevated theophylline level. 7.Renal insufficiency, stage 3. Plan: To continue amiodarone for now, put him on IV heparin drip, since he has not been taking any b lood thinners except for aspirin and Plavix. Plan a cardioversion in the next day or 2. Diurese him . Put him on a low-dose beta-luke. Consider Entresto. Obtain Pulmonary consultation and possibl y a renal consultation. We will follow his progress. Follow his electrolytes and kidney function, h is I's and O's. DEBBY/JOHNL Voice ID: [id number] Report ID: [id number]
[2019-01-20] MEDS: SODIUM CHLORIDE 0.9% 10ML INJ IV SCH (21:00)
[2019-01-20] MEDS: TAMSULOSIN 0.4 MG SR CAP PO SCH (21:26)
[2019-01-20] MEDS: ATORVASTATIN 40 MG TAB PO SCH (21:26)
[2019-01-20] MEDS: RANITIDINE 150 MG TABLET PO SCH (21:26)
[2019-01-21] MEDS: IPRATROPIUM BROM 0.5MG/2.5ML NEB SCH ×2 (02:00→07:55)
[2019-01-21] MEDS: CARVEDILOL 12.5 MG TAB PO SCH (06:42)
[2019-01-21] MEDS: INSULIN -REGULAR HUMAN 50 UNIT/0.5 ML ML SQ SCH ×2 (07:30→11:30)
[2019-01-21] MEDS: ARFORMOTEROL TARTRATE 15 MCG/2 ML VIAL.NEB NEB SCH (07:55)
[2019-01-21] MEDS: GUAIFENESIN 600 MG SA TAB PO SCH (08:47)
[2019-01-21] MEDS: MAGNESIUM OXIDE 400 MG TAB PO SCH (08:47)
[2019-01-21] MEDS: predniSONE 20 MG TAB PO SCH (08:47)
[2019-01-21] MEDS: ROFLUMILAST 500 MCG TABLET PO SCH (08:47)
[2019-01-21] MEDS: SACUBITRIL/VALSARTAN 24/26 MG TAB PO SCH (08:47)
[2019-01-21] MEDS: AMIODARONE HCL 200 MG TAB PO SCH (08:48)
[2019-01-21] MEDS: FUROSEMIDE 40 MG TABLET PO SCH (08:48)
[2019-01-21] MEDS: ASPIRIN 81 MG CHEWABLE TABLET PO SCH (08:48)
[2019-01-21] MEDS: Pharmacy Consult 1 EA XX SCH (08:48)
[2019-01-21] MEDS: SOD FERRIC GLUC COMPLX/SUCROSE 125 MG in NA CHLORIDE 0.9% 100 ML IV SCH (08:48)
[2019-01-21] MEDS: SODIUM CHLORIDE 0.9% 10ML INJ IV SCH (08:49)
--- NOTE | 2019-01-21 09:45 | PN ---
Mr. Hauser appears to be doing well after getting cardioversion and getting started on Entresto. He is quite angry that he is not getting breathing treatments, but I think he will probably do better without those. He probably had something to do with him going into atrial flutter in the first plac e. He has a good chance to do well on his present regimen. I think he could be discharged later tod ay. ROCAEL/NOHELIA Voice ID: [id number] Report ID: [id number]
[2019-01-21 09:46] VITALS: O2SAT 97
[2019-01-21] MEDS: VANCOMYCIN 1.5 GM in NA CHLORIDE 0.9% 500 ML IVPB SCH (10:29)
[2019-01-21 12:54] VITALS: BP 105/50; TEMP 96.7
--- NOTE | 2019-01-21 13:15 | P.PN ---
Subjective Date of Service: 01/21/19 Primary Care Provider: Dr. Arana; Cardiology-Dr. Lindsay Chief Complaint: COPD exacerbation sputum is Mr SA positive Patient seen and examined at bedside. Chart reviewed. Case discussed with cardiology at this time. Doing well overall. No complaints to offer at this time.. Did not get discharged yesterday as was not going to get his medication till this morning Review of Systems 10-point ROS is otherwise unremarkable Physical Examination - Vital Signs Temperature: 96.7 F Blood Pressure: 105/50 Pulse: 68 Respirations: 16 Pulse Ox (%): 93 - Physical Exam General: Alert, In no apparent distress HEENT: Atraumatic, PERRLA, EOMI Neck: Supple, JVD not distended Respiratory: Clear to auscultation bilaterally, Normal air movement Cardiovascular: Regular rate/rhythm, Normal S1 S2 Gastrointestinal: Normal bowel sounds, No tenderness Musculoskeletal: No tenderness Integumentary: No rashes Neurological: Normal speech, Normal tone, Normal affect Lymphatics: No axilla or inguinal lymphadenopathy - Studies Medications List Reviewed: Yes Assessment And Plan - Current Problems (Diagnosis) (1) Pneumonia Onset Date: 08/13/16 Current Visit: No Status: Acute Plan: Patient with recent pneumonia now again with sputum culture positive for MRSA -started on IV vanc. Will continue that here in the hospital -will need PICC line placement -will need total 14 day treatment for MRSA. day 12/19 Qualifiers: Pneumonia type: due to methicillin-resistant Staphylococcus aureus (MRSA) Laterality: left Lung location: lower lobe of lung Qualified Code(s): J15.212 - Pneumonia due to Methicillin resistant Staphylococcus aureus (2) Congestive heart failure Current Visit: Yes Status: Acute Plan: Patient with cardiomyopathy and systolic heart failure -echocardiogram with ejection fraction of 15-20% -cardiology consulted. Appreciated recommendations at this time -continue on PO Lasix and Entresto at this time. -monitor patient closely here in the hospital -fluid restriction and sodium restriction at this time Qualifiers: Heart failure type: biventricular Qualified Code(s): I50.82 - Biventricular heart failure (3) Intermittent atrial fibrillation Current Visit: No Status: Chronic Plan: Patient with history of intermittent atrial fibrillation now with atrial fibrillation with RVR -status post cardioversion now with normal sinus rhythm -on amiodarone at this time -anti coagulation with aspirin and this time -will monitor closely (4) COPD exacerbation Onset Date: 06/14/16 Current Visit: No Status: Acute Plan: COPD exacerbation with recent pneumonia now with sputum culture positive for MRSA -duo nebs, steroids, oxygenation -patient uses home oxygenation -monitor closely here in the hospital -wean oxygen to the level that he uses at home (5) CAD (coronary artery disease) Current Visit: Yes Status: Chronic Plan: Patient with recent CABG done on December of 2018 -currently doing well overall -cardiology consulted. Appreciated recommendations at this time -continued on aspirin, Plavix, ACS medication Qualifiers: Coronary Disease-Associated Artery/Lesion type: [place] artery [place] vs. transplanted heart: [place] heart Associated angina: without angina Qualified Code(s): I25.10 - Atherosclerotic heart disease of [place] coronary artery without angina pectoris (6) Diabetes mellitus Onset Date: 06/14/16 Current Visit: No Status: Chronic Plan: Accu-Cheks and insulin sliding scale Qualifiers: Diabetes mellitus type: type 2 Diabetes mellitus long term care phlebotomist insulin use: with long term care phlebotomist use Diabetes mellitus complication status: without complication Qualified Code(s): E11.9 - Type 2 diabetes mellitus without complications; Z79.4 - long term care phlebotomist (current) use of insulin (7) HTN (hypertension) Onset Date: 06/14/16 Current Visit: No Status: Chronic Plan: Currently stable and on medication Qualifiers: Hypertension type: essential hypertension Qualified Code(s): I10 - Essential (primary) hypertension - Plan Pending clinical improvement at this time. Physician Review Additional Text: Impression: Atrial fibrillation with RVR Chronic Biventricular systolic CHF CAD with prior CABG x2 vessel Diabetes mellitus type 2, non insulin dependent Hypertension Suspect chronic renal disease COPD on home oxygen PVD History of tobacco/alcohol use History of bladder cancer Plan: Atrial fibrillation with RVR: Patient NPO for electrocardioversion. Cardioversion was successful. Patient now in normal sinus rhythm. Patient continues on amiodarone. Patient will likely require chronic anti coagulation therapy. Cardiology to further monitor and adjust. Anticipate discharge in the next 1-2 days with clinical improvement and stability of heart rate. I will turn the service over to Dr. Chavez tomorrow. I will go over the plan of care with her. Chronic Biventricular systolic CHF: This appears stable at this time. Continue with current erratic therapy. CAD with prior CABG x2 vessel: Patient with recent CABG done December of 2018. Diabetes mellitus type 2, non insulin dependent: Will monitor Accu-Cheks. Metformin has been discontinued due to chronic renal disease. Will need to consider basal insulin at discharge. Hypertension: Cardiology has adjusted medication. Suspect chronic renal disease: Suspect chronic renal disease. Case discussed with nephrology. Medications including losartan and metformin have been discontinued. Further adjustment in medication will be required. Nephrology to further address. COPD on home oxygen: Continue COPD medication. Pulmonology to further evaluate. Patient with recent pneumonia. Will monitor closely. Maintain sats above 90%. PVD: Continue as above History of tobacco/alcohol use: Continue to address lifestyle modification education. History of bladder cancer: Will need to discuss further with patient on what is being done for this.
--- NOTE | 2019-01-21 15:06 | EKG ---
Test Date: 2019-01-21 Test Time: 04:41:36 Skilled Trades Teacher: RT Ro MEASUREMENT RESULTS: Intervals: Rate: 71 MD: 164 QRSD: 158 QT: 510 QTc: 554 Dietrich: P: 78 MD: 164 QRS: -73 T: 109 INTERPRETIVE STATEMENTS: Normal sinus rhythm Left axis deviation Right bundle branch block T wave abnormality, consider lateral ischemia Abnormal ECG Compared to ECG 01/20/2019 23:47:36 T-wave abnormality still present Possible ischemia still present Electronically Signed On 01-21-19 15:05:17 CDT by Ric Hudson
--- NOTE | 2019-01-21 15:06 | EKG ---
Test Date: 2019-01-20 Test Time: 23:47:36 Environmental Conservation Officer: RT MEASUREMENT RESULTS: Intervals: Rate: 89 TX: QRSD: 158 QT: 466 QTc: 566 Mcalpin: P: TX: QRS: -70 T: 117 INTERPRETIVE STATEMENTS: Sinus rhythm with premature atrial complexes Left axis deviation Right bundle branch block T wave abnormality, consider lateral ischemia or digitalis effect Abnormal ECG Compared to ECG 01/15/2019 11:00:17 Left-axis deviation now present Sinus tachycardia no longer present T-wave abnormality still present Electronically Signed On 01-21-19 15:06:34 CDT by Ric Hudson
--- NOTE | 2019-01-21 22:30 | PN ---
Date of Progress Note: 01/21/2019 Subjective: Patient was admitted with acute kidney injury secondary to prerenal 2nd on vancomycin currently. Physical Examination: Vital Signs: When I saw the patient, blood pressure of 105/50, pulse of 68. Chest: Clear to auscultation. Heart: S1, S2. Regular. Abdomen: Soft, nontender. Extremities: No edema. Laboratory Data: H and H 12.0/37.1. Sodium of 139, potassium 4.3, bicarb 23, BUN 35, creatinine 1.3, GFR of 53. Current Medications: The patient on include vancomycin, atorvastatin, amiodarone, IV iron, insulin, lorazepam, magnesium, ranitidine, Flomax, vancomycin. Assessment And Plan: 1. Acute kidney injury secondary to cardiorenal, looked to me normal volume over the chronic kidney disease secondary to diabetes and hypertension, normal- sized kidney. The nonproteinuric, normal volume. We will continue to monitor on Entresto and Lasix. 2. Hypertension. Continue current diuresis. 3. Atrial fibrillation, stable. 4. Pneumonia. Continue vancomycin. The patient is going to need followup in 2 to 3 weeks with chemistry and need of monitoring for his level . MARCELA Voice ID: [id number] Report ID: [id number] KIAH
== END 2019-01-21 13:55 | disposition home health service (06) | DRG 308 ==
LOC: 2ND 11:42 → 3RD-ICU 01-15 10:18 → 4TH 01-18 13:09
PROVIDERS: ADMIT Family Medicine; ATTEND Family Medicine
PROC: 5A2204Z Restoration of Cardiac Rhythm, Single (ICD-10-PCS; principal; 2019-01-15)
PROC: 02HV33Z Insertion of Infusion Device into Superior Vena Cava, Percutaneous Approach (ICD-10-PCS; 2019-01-19)
DX: I48.2 Chronic atrial fibrillation (principal); J15.212 Pneumonia due to Methicillin resistant Staphylococcus aureus; I50.23 Acute on chronic systolic (congestive) heart failure; I13.0 Hypertensive heart and chronic kidney disease with heart failure and stage 1 through stage 4 chronic kidney disease, or unspecified chronic kidney disease; N17.9 Acute kidney failure, unspecified; J44.1 Chronic obstructive pulmonary disease with (acute) exacerbation; J44.0 Chronic obstructive pulmonary disease with (acute) lower respiratory infection; I50.82 Biventricular heart failure; I42.9 Cardiomyopathy, unspecified; I25.10 Atherosclerotic heart disease of native coronary artery without angina pectoris; E11.22 Type 2 diabetes mellitus with diabetic chronic kidney disease; N18.3 Chronic kidney disease, stage 3 (moderate); Z99.81 Dependence on supplemental oxygen; E11.51 Type 2 diabetes mellitus with diabetic peripheral angiopathy without gangrene; E11.40 Type 2 diabetes mellitus with diabetic neuropathy, unspecified; D50.9 Iron deficiency anemia, unspecified; E78.5 Hyperlipidemia, unspecified; Z95.1 Presence of aortocoronary bypass graft; Z87.891 Personal history of nicotine dependence; Z85.51 Personal history of malignant neoplasm of bladder; Z88.1 Allergy status to other antibiotic agents; Z88.2 Allergy status to sulfonamides; Z88.7 Allergy status to serum and vaccine
CPT/HCPCS: 36415; 71045; 71046; 76770; 80048; 80053; 80061; 80069; 80076; 80198; 80202; 82570; 82607; 82652; 82728; 82805; 82962; 83540; 83615; 83735; 84145; 84156; 84439; 84443; 84466; 84484; 85025; 85610; 85730; 86160; 87070; 87077; 87186; 87205; 93005; 93306; 94640; 94660; 94760; 97116; 97163; J1644; J1650; J1940; J2250; J2405; J2916; J7512; J7605

== ENCOUNTER 2019-01-26 11:14 | Emergency (ER) | payer MEDICARE ==
--- OUTSIDE RECORDS SUMMARY | 2019-01-26 12:08 | XMS REPORT | Clinical Summary ---
:1945 Author Organization [facility] [employer] Address [address] [place] [address] Care Team Providers Name Role Phone Adam Osman MD Primary Care Provider Allergies Active Allergy Reactions Severity Noted Date Comments Cephalosporins 05/16/2017 Sulfa (Sulfonamide Antibiotics) Rash Low 09/29/2015 Tetanus And Diphtheria Toxoids, Adsorbed, Anaphylaxis High 09/29/2015 Adult Tetanus Vaccines And Toxoid 05/16/2017 Medications Medication Sig Dispensed Refills Start Date End Date Status theophylline Take 600 mg by 0 Active (MSEFIN-24) 300 MG 24 mouth daily. hr capsule [...] BIOPSY 12/02/2018 Anesthesia Event Urology Triny Hawkins, TRUSS DESIGNER 12/02/2018 Hospital Encounter Urology Alex Pugh, Bladder cancer ( HCC) MD after 01/25/2018 Social History Tobacco Use Types Packs/Day Years [...] 12/02/2018 10:55 AM Bladder cancer TURBT CDT ([facility]) Case Notes TF, REQ 1230 START, EST 1HR, POSSIBLE EXTENDED STAY, R/S PER PACO 05/03 [facility] Special Needs TF, REQ 1230 START, EST 1HR, POSSIBLE EXTENDED STAY PA AN ELECTIVE SUPRAGLOTTIC AIRWAY Routine 12/02/2018 10:53 AM CDT Procedure Note - Jared Esteban Jr. BEATER MACHINE OPERATOR - 12/02/2018 10:53 AM CDT Airway Date/Time: [...] GLUCOSE Routine 12/02/2018 9:15 AM CDT after 01/25/2018 Results Surgical pathology request (12/02/2018 1:17 PM CDT) [facility] DEPARTMENT OF PATHOLOGY AND GENOMIC MEDICINE Surgical pathology See link below [facility] DEPARTMENT OF report for PDF Lab PATHOLOGY AND Report GENOMIC MEDICINE Result status This is Final [facility] DEPARTMENT OF Report for PATHOLOGY AND [id number] GENOMIC MEDICINE Specimen Narrative Performed At [id number] [facility] DEPARTMENT OF PATHOLOGY AND GENOMIC MEDICINE [place] Performing Organization Address [place] Cent[facility] Phone Number [facility] DEPARTMENT OF PATHOLOGY AND [address] [place] [phone] GENOMIC MEDICINE Cytology (non-gynecological) request (12/02/2018 12:54 PM CDT) [facility] DEPARTMENT OF PATHOLOGY AND GENOMIC MEDICINE Cytology See link below [facility] DEPARTMENT OF (non-gynecological) for PDF Lab PATHOLOGY AND report Report GENOMIC MEDICINE Result status This is Final [facility] DEPARTMENT OF Report for PATHOLOGY AND [id number] GENOMIC MEDICINE Specimen Performing Organization Address [place] Centercode Phone Number [facility] DEPARTMENT OF PATHOLOGY AND [address] [place] [phone] GENOMIC MEDICINE POC glucose (12/02/2018 11:37 AM CDT)Only the most recent of2 resultswithin the time period is included. Pathologist [facility] [place] POC glucose 124 (H) 65 - 99 mg/dL [facility] Comment: [facility] Notified RN Meter ID: [id number] Senior Paralegal: Edmund Moncada Specimen Performing Organization Address City/State/Zipcode Phone Number [facility] DEPARTMENT OF PATHOLOGY AND [address] [place] [address] GENOMIC MEDICINE [facility] [address] [place] [address] [place] Pyelogram Retrograde (12/02/2018 11:25 AM CDT) [...] provider for procedure details. Performing Organization Address City/[facility]/Zipcode Phone Number [facility] [address] [place] [address] Calculi analysis with photo (12/02/2018 11:09 AM [...] REF LAB analysis and photo Comment: Access [facility] Enhanced Report using either link below: -Direct access: [email or web address] Username, Password: [email or web address] Username: [email or web address] [email or web address] Performed by [employer], [address] [place] [address] [email or web address], Walker Larkin MD - Lab. Director Specimen Serum Narrative Performed At [id number] [facility] [place] Performing Organization Address City/State/Zipcode Phone Number [facility] [address] [place] [address] [facility] [address] [place] [address] after 01/25/2018 Advance Directives Patient has advance care planning documents on file. For more information, please contact:Jose Miguel Garces[address] [facility] [place] [address]
--- OUTSIDE RECORDS SUMMARY | 2019-01-26 12:09 | XMS REPORT | Clinical Summary ---
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, unspecified vessel or lesion type, unspecified whether [place] or transplanted heart (HCC) Special Needs (ICU [...] 404 ms QTC Calculation(Bazett) 499 ms P [place] 80 degrees R [place] -75 degrees T [place] 88 degrees Sinus rhythm with Premature supraventricular [...] 424 ms QTC Calculation(Bazett) 549 ms P [place] 83 degrees R [place] -75 degrees T [place] 89 degrees Sinus tachycardia Left axis deviation [...] 394 ms QTC Calculation(Bazett) 510 ms P [place] 80 degrees R [place] -68 degrees T [place] 98 degrees Sinus tachycardia Left axis deviation [...] 350 ms QTC Calculation(Bazett) 477 ms P [place] 73 degrees R [place] -62 degrees T [place] 97 degrees Sinus tachycardia Left axis deviation [...] 406 ms QTC Calculation(Bazett) 606 ms P [place] 31 degrees R [place] -64 degrees T [place] 93 degrees Sinus tachycardia with frequent Premature [...] procedure are in the results section. after 01/25/2018 Results RHYTHM STRIP - SCAN (01/05/2019 3:41 [...] (H)Comment: TESTED AT 70 - 110 mg/dL [address] [address] Specimen Blood Performing Organization Address City/[facility]/Zipcode Phone Number [address] [address] [phone] [place] Magnesium (01/01/2019 7:58 AM CDT)Only the most recent of39 resultswithin the time period is included. Magnesium 2.0 1.6 - 2.6 mg/dL [facility] Specimen Blood Performing Organization Address City/[facility]/Zipcode Phone Number [address] [address] CENTER Basic Metabolic Panel (01/01/2019 7:58 AM CDT)Only the most recent of30 resultswithin the time period is included. Sodium 142 136 - 145 meq/L [facility] Potassium 4.6 3.5 - 5.1 meq/L [facility] Chloride 102 98 - 107 meq/L [facility] CO2 33 (H) 22 - 29 meq/L [facility] BUN 21 7 - 21 mg/dL [facility] Creatinine 1.30 (H) 0.57 - 1.25 mg/dL [facility] Glucose 126 (H) 70 - 105 mg/dL [facility] Calcium 9.3 8.4 - 10.2 mg/dL [facility] EGFR 54Comment: ESTIMATED GFR IS mL/min/1.73 sq m [facility] NOT ACCURATE CREATININE [facility] CLEARANCE IN PREDICTING GLOMERULAR FILTRATION RATE. ESTIMATED GFR IS NOT APPLICABLE FOR DIALYSIS PATIENTS. Specimen Blood Performing Organization Address City/[facility] Phone Number [address] [address] CENTER B-type Natriuretic Factor (BNP) (01/01/2019 4:51 AM CDT)Only the most recent of6 resultswithin the time period is included. BNP 1,150 (H) 0 - 100 pg/mL [facility] Specimen Blood Performing Organization Address City/[facility] Phone Number [address] [address] CENTER CBC (Hemogram only) (12/30/2018 6:06 AM CDT)Only the most recent of17 resultswithin the time period is included. WBC 6.6 3.5 - 10.5 K/L [facility] RBC 3.42 (L) 4.63 - 6.08 M/L [facility] Hemoglobin 8.8 (L) 13.7 - 17.5 GM/DL [facility] Hematocrit 29.2 (L) 40.1 - 51.0 % [facility] MCV 85.4 79.0 - 92.2 fL [facility] MCH 25.7 25.7 - 32.2 pg [facility] MCHC 30.1 (L) 32.3 - 36.5 GM/DL [facility] RDW 14.9 (H) 11.6 - 14.4 % [facility] Platelets 233 150 - 450 K/CU MM [facility] MPV 10.6 9.4 - 12.4 fL [facility] nRBC 0 0 - 0 /100 WBC [facility] Specimen Blood Performing Organization Address City/State/Zipcode Phone Number [facility] [address] [place] [address] CENTER XR chest 1 view portable / bedside (12/26/2018 4:20 PM CDT)Only the most recent of16 resultswithin the time period is included. Specimen Narrative Performed At FINAL REPORT [facility] Chest x-ray Clinical History: s/p acb Comparison: [...] MD Report Verified Date/Time:12/26/2018 16:41:43 Reading Location: [facility] Radiology Reading Room Procedure Note Interface, External [...] Report Verified Date/Time: 12/26/2018 16:41:43 Reading Location: [facility] Radiology Reading Room Performing Organization Address City/[facility] Phone Number [facility]IS Calcium, Ionized (12/25/2018 2:35 AM CDT)Only the most recent of16 resultswithin the time period is included. Calcium, Ion 1.11 (L) 1.12 - 1.27 mmol/L [facility] pH, Blood 7.45 [facility] Specimen Blood Performing Organization Address City/[facility]/Zipcode Phone Number [facility] [address] [place] [address] [phone] CENTER CBC with platelet count + automated diff (12/25/2018 2:35 AM CDT)Only the most recent of5 resultswithin the time period is included. WBC 8.0 3.5 - 10.5 K/L [facility] RBC 3.28 (L) 4.63 - 6.08 M/L [facility] Hemoglobin 8.5 (L) 13.7 - 17.5 GM/DL [facility] Hematocrit 27.4 (L) 40.1 - 51.0 % [facility] MCV 83.5 79.0 - 92.2 fL [facility] MCH 25.9 25.7 - 32.2 pg [facility] MCHC 31.0 (L) 32.3 - 36.5 GM/DL [facility] RDW 14.6 (H) 11.6 - 14.4 % [facility] Platelets 267 150 - 450 K/CU MM [facility] MPV 10.9 9.4 - 12.4 fL [facility] nRBC 0 0 - 0 /100 WBC [facility] % Neutros 73 % [facility] % Lymphs 15 % [facility] % Monos 9 % [facility] % Eos 2 % [facility] % Baso 1 % [facility] # Neutros 5.81 (H) 1.78 - 5.38 K/L [facility] # Lymphs 1.20 (L) 1.32 - 3.57 K/L [facility] # Monos 0.69 0.30 - 0.82 K/L [facility] # Eos 0.16 0.04 - 0.54 K/L [facility] # Baso 0.05 0.01 - 0.08 K/L [facility] Immature Granulocytes-Relative 1 0 - 1 % [facility] Specimen Blood Performing Organization Address City/State/Zipcode Phone Number [facility] [address] [place] [address] CENTER aPTT (12/25/2018 2:35 AM CDT)Only the most recent of21 resultswithin the time period is included. PTT 38.2 (H) 22.5 - 36.0 seconds [facility] Specimen Blood Performing Organization Address City/[facility]/Zipcode Phone Number [address] [address] CENTER Potassium (12/24/2018 6:42 PM CDT)Only the most recent of9 resultswithin the time period is included. Potassium 4.5 3.5 - 5.1 meq/L [facility] Specimen Blood Performing Organization Address [facility] Phone Number [address] [address] CENTER Phosphorus (12/24/2018 3:58 AM CDT)Only the most recent of18 resultswithin the time period is included. Phosphorus 4.0Comment: Specimen slightly 2.3 - 4.7 mg/dL [facility] hemolyzed [facility] Specimen Blood Performing Organization Address [facility] Phone Number [address] [address] [place] Sputum Culture + Gram Stain (12/23/2018 10:13 PM CDT)Only the most recent of3 resultswithin the time period is included. Result 4+ Normal respiratory deandra [facility] Gram Stain Result <1+ White blood cells seen [facility] Gram Stain Result 0-5 epithelial cells [facility] Gram Stain Result <1+ yeast [facility] Specimen Sputum - Expectorated Performing Organization Address [facility] Phone Number [address] [address] [place] Lactic acid, venous (12/23/2018 7:44 PM CDT)Only the most recent of3 resultswithin the time period is included. Lactate, Venous 0.9Comment: Specimen 0.5 - 2.2 mmol/L [facility] slightly hemolyzed [facility] Specimen Blood Performing Organization Address [facility] Phone Number [address] [address] CENTER Blood culture (12/23/2018 5:27 PM CDT)Only the most recent of3 resultswithin the time period is included. Result No growth in 5 days [facility] Specimen Blood Performing Organization Address City/[facility] Phone Number [address] [address] CENTER Procalcitonin (12/23/2018 5:26 PM CDT)Only the most recent of2 resultswithin the time period is included. Procalcitonin <0.05 <0.05 ng/mL [facility] Specimen Blood Narrative Performed At SEPSIS RISK (ng/mL) [facility] Low:0.05-0.50 Intermediate: 0.51-2.00 High: >=2.01 Performing Organization Address [facility] Phone Number [address] [address] [place] Hemoglobin and hematocrit (12/23/2018 5:26 PM CDT) Hemoglobin 8.0 (L) 13.7 - 17.5 GM/DL [facility] Hematocrit 25.8 (L) 40.1 - 51.0 % [facility] Specimen Blood Performing Organization Address City/[facility] Phone Number [address] [address] [phone] [place] Hepatic function panel (12/23/2018 5:25 PM CDT) Protein, Total 5.9 (L) 6.0 - 8.3 gm/dL [facility] Albumin 3.2 (L) 3.5 - 5.0 g/dL [facility] Total Bilirubin 0.3 0.2 - 1.2 mg/dL [facility] Bilirubin, Direct 0.2 0.1 - 0.5 mg/dL [facility] Alkaline Phosphatase 50 40 - 150 U/L [facility] AST 13 5 - 34 U/L [facility] ALT 24 6 - 55 U/L [facility] Specimen Blood Performing Organization Address [facility] Phone Number [address] [address] CENTER ECG 12 lead (12/21/2018 8:55 AM CDT)Only the most recent of7 resultswithin the time period is included. Specimen Narrative Performed At Ventricular Rate 136 BPM GE MUSE Atrial Rate 136 BPM P-R Interval 134 ms QRS Duration 142 ms Q-T Interval 332 ms QTC Calculation(Bazett) 499 ms P [place] 85 degrees R [place] -71 degrees T [place] 103 degrees Most probablySinus tachycardia Left anterior [...] 332 ms QTC Calculation(Bazett) 499 ms P [place] 85 degrees R [place] -71 degrees T [place] 103 degrees Most probably Sinus tachycardia Left anterior fascicular block Right bundle branch block Inferior infarct , age undetermined Mild ST elelvation inferior leads + ST depression and T wave inversion in the anterolateral leads: STEMI? aneurysm? Iaschemia? Prolonged QT Abnormal ECG 16 DEC 2018 No significant changes Confirmed by MD GROSS YOCHAI ([id number]) on 12/22/2018 6:28:34 AM Performing Organization Address [facility] Phone Number [facility] ECHOCARDIOGRAM REPORT - SCAN (12/20/2018 9:20 PM CDT) Narrative Performed At Potassium-Stat Lab (12/20/2018 3:35 AM CDT)Only the most recent of9 resultswithin the time period is included. Potassium 3.6 3.6 - 5.5 meq/L [facility] Specimen Blood, Arterial Performing Organization Address [facility] Phone Number [facility] [address] [address] CENTER 2D Echo W/Doppler(CW/PW/Color) (12/19/2018 6:14 PM CDT) Ejection Fraction [facility] ECHO HEARTLAB [facility] Specimen Narrative Performed At Transthoracic Echocardiography Report (TTE) [facility] ECHO HEART[facility] Demographics Patient Name TERESA,Date of Study 12/19/[address] [id number] GenderMale Visit Number [id number] Unknown [id number] Room Number C824 Number Date of Birth1945Referring Physician Alecia Rodriguez Age73 year(s)Electric Meter Repairer Helper Lidia Desai [facility] AnalystIzofidel MuñizpreRey Evans, Physician MD Angie Mcnally [...] 12/19/[address] Gender Male Visit Number [id number] Race Unknown Room Number C824 Number Date of 1945 Referring Physician Alecia Rodriguez Age 73 year(s) Electric Meter Repairer Helper Lidia Desai CS [employer] Manager Nery Núñez Interpreting Jaron Evans, [...] TR Gradient: 25.23 mmHg Performing Organization Address City/[facility] Phone Number [facility] ECHO HEARTLAB [facility] Blood gas, arterial (12/18/2018 7:23 AM CDT)Only the most recent of14 resultswithin the time period is included. pH, Arterial 7.46 (H) 7.35 - 7.45 [facility] pCO2, Arterial 37 35 - 45 mmHg [facility] pO2, Arterial 69 (L) 80 - 90 mmHg [facility] O2 Sat, Arterial 94.8 (L) 96.0 - 97.0 % [facility] HCO3, Arterial 26 21 - 29 mmol/L [facility] Base Excess, Arterial 1.8 -2.0 - 3.0 mmol/L [facility] Patient Temperature 37.0 C [facility] FIO2 40.0 % [facility] Specimen Blood, Arterial Performing Organization Address [facility] Phone Number [address] [address] [place] PULMONARY FUNCTION - SCAN (12/17/2018 8:50 AM CDT) Narrative Performed At Oxygen saturation, measured (12/17/2018 3:09 AM CDT)Only the most recent of7 resultswithin the time period is included. O2 Saturation (Measured) 58.0 % [facility] Specimen Blood Performing Organization Address City/[facility] Phone Number [facility] [address] [place] [address] CENTER Sodium Na-Stat Lab (12/16/2018 9:37 PM CDT)Only the most recent of8 resultswithin the time period is included. Sodium 135 135 - 148 meq/L [facility] Specimen Blood, Arterial Performing Organization Address [facility] Phone Number [address] [address] [place] Glucose-Stat Lab (12/16/2018 9:37 PM CDT)Only the most recent of8 resultswithin the time period is included. Glucose 220 (H) 70 - 110 mg/dL [facility] Specimen Blood, Arterial Performing Organization Address [facility] Phone Number [address] [address] [place] HGB/HCT (H&H)-Stat Lab (12/16/2018 9:37 PM CDT)Only the most recent of8 resultswithin the time period is included. Hemoglobin 11.4 (L) 13.0 - 16.8 g/dL [facility] Hematocrit 34.0 (L) 40.0 - 50.0 % [facility] Specimen Blood, Arterial Performing Organization Address [facility] Phone Number [address] [address] [place] TRANSFUSION SERVICE REPORT - SCAN (12/16/2018 5:54 PM CDT) Narrative Performed At Lactic Acid, Arterial (12/16/2018 7:13 AM CDT)Only the most recent of4 resultswithin the time period is included. Lactate, Art 0.9Comment: Specimen 0.5 - 2.2 mmol/L [facility] slightly hemolyzed [facility] Specimen Blood, Arterial Performing Organization Address [facility] Phone Number [address] [address] [place] Glucose-STAT (12/15/2018 11:01 PM CDT) Glucose 131 (H) 70 - 105 mg/dL [facility] Specimen Blood Performing Organization Address City/[facility]/Zipcode Phone Number [facility] [address] [place] [address] CENTER PERIPHERAL VASCULAR REPORT - SCAN (12/15/2018 9:10 PM CDT) Narrative Performed At Prepare RBC (12/15/2018 2:33 PM CDT) CROSSMATCH COMPATIBLE SAFETRACE TX Unit ABO O Pos SAFETRACE TX UNIT NUMBER [id number] SAFETRACE TX Status RETURNED FROM ISSUE SAFETRACE TX Blood Bank Product RED BLOOD CELLS SAFETRACE TX PRODUCT CODE [id number] SAFETRACE TX CROSSMATCH COMPATIBLE SAFETRACE TX Unit ABO O Pos SAFETRACE TX UNIT NUMBER [id number] SAFETRACE TX Status RETURNED FROM ISSUE SAFETRACE TX Blood Bank Product RED BLOOD CELLS SAFETRACE TX PRODUCT CODE [id number] SAFETRACE TX CROSSMATCH COMPATIBLE SAFETRACE TX Unit ABO O Pos SAFETRACE TX UNIT NUMBER [id number] SAFETRACE TX Status RETURNED FROM ISSUE SAFETRACE TX Blood Bank Product RED BLOOD CELLS SAFETRACE TX PRODUCT CODE [id number] SAFETRACE TX CROSSMATCH COMPATIBLE SAFETRACE TX Unit ABO O Pos SAFETRACE TX UNIT NUMBER [id number] SAFETRACE TX Status RETURNED FROM ISSUE SAFETRACE TX Blood Bank Product RED BLOOD CELLS SAFETRACE TX PRODUCT CODE [id number] SAFETRACE TX Performing Organization Address City/[facility]/Zipcode Phone Number SAFETRACE TX Manual Differential (12/15/2018 2:05 PM CDT) % Neutros 93 % [facility] % Lymphs 2 % [facility] % Monos 2 % [facility] % Myelo 1 (H) 0 - 0 % [facility] % Bands 2 0 - 10 % [facility] # Neutros 20.93 (H) 1.78 - 5.38 K/ul [facility] # Lymphs 0.45 (L) 1.32 - 3.57 K/ul [facility] # Monos 0.45 0.30 - 0.82 K/uL [facility] # Myelo 0.23 (H) 0.00 - 0.00 K/uL [facility] # Bands 0.45 0.00 - 0.80 K/uL [facility] Total Counted 100 [facility] WBC Morphology Normal [facility] Platelet Morphology Normal [facility] Anisocytosis 2+ moderate [facility] Microcytes 2+ moderate [facility] Poikilocytes 1+ few [facility] Elliptocytes 1+ few [facility] Artifact Present [facility] Platelet Conc Adequate [facility] Specimen Blood Narrative Performed At Received comment: [facility] User comments: Slide comments: Performing Organization Address City/[facility]/Zipcode Phone Number [address] [address] [place] POC ACTIVATED CLOTTING TIME (12/15/2018 11:54 AM CDT)Only the most recent of5 resultswithin the time period is included. Activated Clotting Time 114Comment: TESTED AT sec [address] [address] Specimen Blood Performing Organization Address City/[facility]/Zipcode Phone Number [facility] [address] [place] [address] [phone] [place] Prothrombin time/INR (12/15/2018 11:49 AM CDT) Protime 17.7 (H) 11.9 - 14.2 seconds [facility] INR 1.5 <=5.9 [facility] Specimen Blood Narrative Performed At Effective 12/03/2018: PT Reference Range [facility] Change New: 11.9-14.2Previous: 11.7-14.7 RECOMMENDED COUMADIN/WARFARIN INR THERAPY RANGES STANDARD DOSE: 2.0-3.0Includes: PROPHYLAXIS for venous thrombosis, systemic embolization; TREATMENT for venous thrombosis and/or pulmonary embolus. HIGH RISK: Target INR is 2.5-3.5 for patients wiht mechanical heart valves. Performing Organization Address [facility] Phone Number [address] [address] [phone] CENTER Fibrinogen (12/15/2018 11:49 AM CDT) Fibrinogen 354 225 - 434 mg/dl [facility] Specimen Blood Performing Organization Address [facility] Phone Number [address] [address] [place] Platelet count (12/15/2018 11:49 AM CDT) Platelets 206 150 - 450 K/CU MM [facility] Specimen Blood Performing Organization Address [facility] Phone Number [address] [address] CENTER WAYNE (12/15/2018 9:13 AM CDT) Narrative [...] Carotid doppler bilateral (12/15/2018 5:21 AM CDT) [facility] ECHO HEARTLAB [facility] Specimen Impressions Performed At Right Impression [facility] ECHO HEART[facility] CKESSON [facility] 1. There is <50% diameter reduction [...] Performed At LAB - Carotid Duplex Study [facility] ECHO [facility]ART[facility] Demographics Patient NameHEATHER MOORE Date of Study 12/15/2018 R Age 73 Visit [id number] GenderMale Date of 1945 Referring Viktoriya Bond,Room Number SCPR Physician LEYDI Electric Meter Repairer Helper Uriel Sullivan Physician Procedure Type of Study: Cerebral: Carotid, CAROTID DOPPLER, BILATERAL. Indications for Study:Pre-op evaluation. Patient Status:Routine. Study Location:Portable. Technical Quality:Adequate visualization. Risk Factors History of Disease + +----+ + !Diagnosis!Date!Comments ! + +----+ + !History/Risk !!PVD, CHF, CAD, MN, COPD, DM, PAD, HTN, HLD, H/o! !Factors: !!Bladder Cancer, LE Arterial Stents ! + +----+ + Procedure Note Interface, External Ris In - 12/15/2018 12:03 PM CDT PV LAB - Carotid Duplex Study Demographics Patient Name HEATHER MOORE Date of Study 12/15/2018 R Age 73 Visit Number [id number] Gender Male Accession Number [id number] Date of 1945 Referring Viktoriya Bond, Room Number SCPR Physician LEYDI Electric Meter Repairer Helper Uriel Eid Interpreting Juanita Sullivan, Physician Procedure Type of Study: Cerebral: Carotid, CAROTID DOPPLER, BILATERAL. Indications for Study:Pre-op evaluation. Patient Status:Routine. Study Location:Portable. Technical Quality:Adequate visualization. Risk Factors History of Disease + +----+ + !Diagnosis !Date!Comments ! + +----+ + !History/Risk ! !PVD, CHF, CAD, MN, COPD, DM, PAD, HTN, HLD, H/o ! [...] Additional Measurements:ICAPSV/CCAPSV 1.05.ICAEDV/CCAEDV 2.83. Performing Organization Address City/[facility]/Zipcode Phone Number [facility] ABORH, manual (12/15/2018 1:32 AM CDT) ABO Grouping O [facility] Rh Factor POS [facility] Specimen Blood Performing Organization Address [facility]/Zipcode Phone Number [facility] [address] [place] [address] Type and screen, automated (12/15/2018 1:11 AM CDT) ABO/RH AUTOMATED (BEAKER) O POSITIVE [facility] Ab Scrn NEGATIVE [facility] Specimen Blood Performing Organization Address [facility]/Zipcode Phone Number [facility] [address] [place], [place] [phone] NM PET Cardiac Viability (12/11/2018 5:15 PM CDT) Specimen Narrative Performed At FINAL REPORT [facility] PROCEDURE: MYOCARDIAL METABOLISM PET IMAGING with Rest MYOCARDIAL PERFUSION PET IMAGING\\XA9\\ CPT CODE:42776, [id number] INDICATION: CAD, preoperative viability assessment for ACB [...] MD Report Verified Date/Time:12/11/2018 18:10:46 Reading Location: [address] Reading Room Procedure Note Interface, External Ris In - 12/11/2018 6:13 PM CDT FINAL REPORT PROCEDURE: MYOCARDIAL METABOLISM PET IMAGING with Rest MYOCARDIAL PERFUSION PET IMAGING\\XA9\\ CPT CODE: 67998, 29704 INDICATION: CAD, preoperative viability assessment for ACB [...] Report Verified Date/Time: 12/11/2018 18:10:46 Reading Location: [address] Reading Room Performing Organization Address City/State/Zipcode Phone Number [facility] Lab bedside spirometry (12/11/2018 11:24 AM CDT) Narrative Performed At Palma Garduno RRT, PROCESS CONTROL PROGRAMMER 12/11/2018 11:27 AM [facility] PFT CHARTING REPORT Infection Control/Hand Hygiene procedures followed throughout the encounter with patient: Yes Patient Identification Method: Patient name verified on armband, and Medical record on armband, Is the order complete?: Yes Account ID#: [id number] Patient Name: Heather Moore Birthdate: 1945 Age: [...] CDT) Specimen Narrative Performed At FINAL REPORT [facility] INDICATION: Hypoxemia and shortness of breath. COMPARISON: [...] MD Report Verified Date/Time:12/11/2018 11:34:47 Reading Location: [facility] Diagnostic Imaging Reading Room - [place] [address] [id number] Procedure Note Interface, External Ris In [...] Report Verified Date/Time: 12/11/2018 11:34:47 Reading Location: [facility] Diagnostic Imaging Reading Room - [place] [address] Performing Organization Address City/State/Zipcode Phone Number RIS Troponin I (12/11/2018 5:05 AM CDT)Only the most recent of4 resultswithin the time period is included. Troponin I 1.07 (HH) 0.00 - 0.03 ng/mL [facility] Specimen Blood Narrative Performed At Troponin I (TnI) levels must be interpreted [facility] in the context of the presenting symptoms [...] tachyarrhythmia. Performing Organization Address City/State/Zipcode Phone Number [address] [phone] [place] Vancomycin level, trough (12/10/2018 12:30 PM CDT) Vancomycin Tr 16.8 10.0 - 20.0 ug/mL [facility] Specimen Blood Performing Organization Address [facility] Phone Number [address] [address] [place] ECHOCARDIOGRAM REPORT - SCAN (12/09/2018 9:02 PM CDT) Narrative Performed At Urinalysis w/Microscopic + Reflex to Culture (12/09/2018 10:39 AM CDT) Color, UA Yellow [facility] Clarity, UA Clear [facility] Specific [place], UA 1.009 1.001 - 1.035 [facility] pH, UA 5.0 5.0 - 8.0 [facility] Protein, UA 20 mg/dL (A) Negative [facility] Glucose, UA Negative Negative [facility] Ketones, UA Negative Negative [facility] Bilirubin, UA Negative Negative [facility] Blood, UA Moderate (A) Negative [facility] Nitrite, UA Negative Negative [facility] Leukocytes, UA Moderate (A) Negative [facility] Urobilinogen, UA 0.2 0.2 - 1.0 mg/dL [facility] RBC, UA 27 /HPF [facility] WBC, UA 20 /HPF [facility] Mucus Rare [facility] Squam Epithel, UA <1 /HPF [facility] Specimen Source [facility] Specimen Urine Performing Organization Address City/[facility]/[place] [address] [place] Urine culture (12/09/2018 10:39 AM CDT) Result No growth [facility] Specimen Urine Performing Organization Address [facility] [place] [address] [phone] [place] Hemoglobin A1c (12/09/2018 10:39 AM CDT) Hemoglobin A1C 5.7 4.3 - 6.1 % [facility] Specimen Blood Performing Organization Address [facility] [place] [address] [phone] [place] 2D Echo W/Doppler(CW/PW/Color) (12/09/2018 1:53 AM CDT) Ejection Fraction [facility] Specimen Narrative Performed At Transthoracic Ech[facility]ography Report (TTE) [facility] Demographics Patient NameBLANCHARD,Date of Study12/09/[address] Male Visit [id number] Unknown Room [id number] Number Date of 1945Referring Kirit Serna PhysicianBlyuliet Park NP Age 73 year(s)Electric Meter Repairer Helper Angie Blakely RDCS, RVT Funeral Service Manager Elicia Rutherford, Interpreting Roly Colon [...] 12/09/[address] Gender Male Visit Number [id number] Race Unknown Room Number 6216 Number Date of 1945 Referring Kirit Serna Physician Omero Park NP Age 73 year(s) Electric Meter Repairer Helper Angie Blakely [facility], RVT Funeral Service Manager Elicia Rutherford, Interpreting Jaron Evans [facility] Physician Procedure Type of Study TTE procedure:2DECHO [...] LVOT CI: 3.8 l/min/m^2 Performing Organization Address City/[facility] Phone Number [facility] Comprehensive metabolic panel (12/09/2018 1:42 AM CDT) Protein, Total 6.9Comment: Specimen 6.0 - 8.3 gm/dL [facility] slightly hemolyzed [facility] Albumin 3.4 (L)Comment: Specimen 3.5 - 5.0 g/dL [facility] slightly hemolyzed [facility] Alkaline Phosphatase 66 40 - 150 U/L [facility] Total Bilirubin 0.5Comment: Specimen 0.2 - 1.2 mg/dL [facility] slightly hemolyzed [facility] Sodium 138 136 - 145 meq/L [facility] Potassium 4.4Comment: Specimen 3.5 - 5.1 meq/L [facility] slightly hemolyzed [facility] Chloride 108 (H) 98 - 107 meq/L [facility] CO2 20 (L) 22 - 29 meq/L [facility] BUN 17 7 - 21 mg/dL [facility] Creatinine 1.20Comment: Specimen 0.57 - 1.25 mg/dL [facility] slightly hemolyzed [facility] Glucose 135 (H) 70 - 105 mg/dL [facility] Calcium 8.5 8.4 - 10.2 mg/dL [facility] AST 13Comment: Specimen 5 - 34 U/L [facility] slightly hemolyzed [facility] ALT 11Comment: Specimen 6 - 55 U/L [facility] slightly hemolyzed [facility] EGFR 60Comment: ESTIMATED GFR mL/min/1.73 sq m [facility] IS NOT ACCURATE [facility] CREATININE CLEARANCE IN PREDICTING GLOMERULAR FILTRATION RATE. ESTIMATED GFR IS NOT APPLICABLE FOR DIALYSIS PATIENTS. Specimen Blood Performing Organization Address City/[facility] Phone Number [facility] [address] [place] [address] [facility] Theophylline level (12/08/2018 6:48 PM CDT) Theophylline Lvl 10.1 10.0 - 20.0 ug/mL [facility] Specimen Blood Performing Organization Address City/State/Zipcode Phone Number [facility] [address] [place] [address] [place] Respiratory Panel [facility] (12/08/2018 5:57 PM CDT) Human Metapneumovirus Not detected Not detected, [facility] Rhinovirus Not detected Not detected, [facility] Equivocal [facility] Influenza A Not detected Not detected, [facility] INFLUENZA A (NO SUBTYPE) Not detected, [facility] Equivocal [facility] Influenza A subtype H1 Not detected, [facility] Influenza A Subtype H3 Not detected, [facility] Influenza A Subtype H1-2009 Not detected, [facility] Influenza B Not detected Not detected, [facility] Respiratory Syncytial Virus Not detected Not detected, [facility] Parainfluenza Virus 1 Not detected Not detected, [facility] Parainfluenza Virus 2 Not detected Not detected, [facility] Parainfluenza virus 3 Not detected Not detected, [facility] Parainfluenza Virus 4 Not detected Not detected, [facility] Adenovirus Not detected Not detected, [facility] Coronavirus 229E Not detected Not detected, [facility] Coronavirus HKU1 Not detected Not detected, [facility] Coronavirus NL63 Not detected Not detected, [facility] Coronavirus OC43 Not detected Not detected, [facility] Bordetella Pertussis Not detected Not detected, [facility] Equivocal [facility] Chlamydophila Pneumoniae Not detected Not detected, [facility] Mycoplasma Pneumoniae Not detected Not detected, [facility] Specimen Nasopharyngeal Narrative Performed At Other viruses and bacteria not targeted by [facility] this PCR panel cannot be excluded; therefore clinical correlation and follow up of serology, culture results, and other molecular studies is required. The results are not intended to be used as the sole means for clinical diagnosis or patient management decisions. This sample was tested at the [facility] Molecular Diagnostics Laboratory using the SpotRightArray Respiratory Panel. It is FDA cleared and [...] A and/or Influenza B. Performing Organization Address City/[facility] Phone Number [address] [phone] [place] Legionella antigen, urine (12/08/2018 5:53 PM CDT) Legionella Urine Antigen Negative - see [facility] commentComment: Negative [facility] for L. pneumophila serogroup 1 antigen, suggesting no recent or current infection with this serogroup. Legionellosis cannot be ruled out since other serogroups and species may cause disease. Specimen Urine Performing Organization Address [facility] Phone Number [address] [address] [phone] [place] Strep pneumoniae antigen (12/08/2018 5:49 PM CDT) Strep pneumoniae Presumptive negative Presumptive negative [facility] Antigen for pneumococcal for pneumococcal [facility] pneumonia - see comment pneumonia - see CENTER comment, Presumptive negative for pneumococcal meningitis - see comment Specimen Urine Narrative Performed At Presumptive negative for pneumococcal [facility] pneumonia, suggesting no current or recent pneumococcal infection. Infection due to S. pneumoniae cannot be ruled out since the antigen present in the sample may be below the detection limit of the test. Performing Organization Address City/State/Zipcode Phone Number [facility] [address] [place], [place] [address] [phone] CENTER BUN and Creatinine (12/08/2018 5:46 PM CDT) BUN 18 7 - 21 mg/dL [facility] Creatinine 1.30 (H) 0.57 - 1.25 mg/dL [facility] EGFR 54Comment: ESTIMATED GFR IS mL/min/1.73 sq m [facility] NOT ACCURATE [facility] CLEARANCE IN PREDICTING GLOMERULAR FILTRATION RATE. ESTIMATED GFR IS NOT APPLICABLE FOR DIALYSIS PATIENTS. Specimen Blood Performing Organization Address City/State/Zipcode Phone Number [facility] [address] [place], [place] [phone] CENTER after 01/25/2018 Insurance Payer Benefit Plan / Group Subscriber ID Type Phone Address [employer] - MEDICARE AARP/MEDICARE COMPLETE xxxxxxxxx [facility] ([place]) [address] [address] Advance Directives For more information, please contact:[address] [phone] Code Status Date Activated Date Inactivated Comments Full Code 12/15/2018 2:01 PM 01/01/2019 4:41 PM This code status was determined by: Patient Full Code 12/08/2018 4:57 PM 12/15/2018 2:01 PM This code status was determined by: Patient
--- OUTSIDE RECORDS SUMMARY | 2019-01-26 12:12 | XMS REPORT ---
:1945 [facility] Address [address] [place] [address] Care Team Providers Name Role Phone FERNANDO BLAND Unavailable Unavailable Payers Payer Name Policy Type [...] (BEAKER) (test 165 mg/dL 70-[address] [facility] [address] [facility] ebfz=[id number]) [facility] [address] [id number] 08:41:00 Test Item Value Reference Range Comments MAGNESIUM (BEAKER) (test kcfh=183) 2.0 mg/dL 1.6-2.6 BASIC METABOLIC [id number] 08:41:00 Test Item Value Reference Range Comments SODIUM (BEAKER) (test 142 meq/L 136-145 uyjq=502) POTASSIUM (BEAKER) (test 4.6 meq/L 3.5-5.1 puzn=032) CHLORIDE (BEAKER) (test 102 meq/L 98-107 bgkc=134) CO2 (BEAKER) (test 33 meq/L 22-29 sdad=552) BLOOD UREA NITROGEN 21 mg/dL 7-21 (BEAKER) (test sxav=836) CREATININE (BEAKER) (test 1.30 mg/dL 0.57-1.25 zfpu=951) GLUCOSE RANDOM (BEAKER) 126 mg/dL 70-105 (test ijdc=930) CALCIUM (BEAKER) (test 9.3 mg/dL 8.4-10.2 mrgv=943) EGFR (BEAKER) (test 54 mL/min/1.73 sq m ESTIMATED GFR IS NOT qxpm=8878) ACCURATE CREATININE CLEARANCE IN PREDICTING GLOMERULAR FILTRATION RATE. ESTIMATED GFR IS NOT APPLICABLE FOR DIALYSIS PATIENTS. POCT-GLUCOSE [id number] 08:04:00 Test Item Value Reference Range Comments POC-GLUCOSE METER (BEAKER) 103 mg/dL 70-110 TESTED AT [address] (test nwfq=8406) [place] [address] B-TYPE NATRIURETIC FACTOR (BNP)2019-01-01 05:26:00 Test Item Value Reference Range Comments B-TYPE NATRIURETIC PEPTIDE (BEAKER) (test 1150 pg/mL 0-100 vrkb=564) POCT-GLUCOSE [id number] 21:02:00 Test Item Value Reference Range Comments POC-GLUCOSE METER (BEAKER) 180 mg/dL 70-110 TESTED AT [address] (test vuse=7352) [place] [address] POCT-GLUCOSE [id number] 17:02:00 Test Item Value Reference Range Comments POC-GLUCOSE METER (BEAKER) 129 mg/dL 70-110 TESTED AT [address] (test mriq=1041) [place] [address] POCT-GLUCOSE [id number] 12:26:00 Test Item Value Reference Range Comments POC-GLUCOSE METER (BEAKER) 127 mg/dL 70-110 TESTED AT [address] (test itpl=3322) [place] [id number] POCT-GLUCOSE [id number] 09:06:00 Test Item Value Reference Range Comments POC-GLUCOSE METER (BEAKER) 136 mg/dL 70-110 TESTED AT [address] (test erdb=2244) [place] [id number] 05:33:00 Test Item Value Reference Range Comments MAGNESIUM (BEAKER) (test xgpp=600) 1.9 mg/dL 1.6-2.6 BASIC METABOLIC [id number] 05:33:00 Test Item Value Reference Range Comments SODIUM (BEAKER) (test 140 meq/L 136-145 aypn=163) POTASSIUM (BEAKER) (test 4.2 meq/L 3.5-5.1 ltju=925) CHLORIDE (BEAKER) (test 103 meq/L 98-107 ehkf=510) CO2 (BEAKER) (test 31 meq/L 22-29 zsbr=603) BLOOD UREA NITROGEN 23 mg/dL 7-21 (BEAKER) (test gria=356) CREATININE (BEAKER) (test 1.32 mg/dL 0.57-1.25 oium=933) GLUCOSE RANDOM (BEAKER) 109 mg/dL 70-105 (test vflx=786) CALCIUM (BEAKER) (test 8.7 mg/dL 8.4-10.2 jixr=948) EGFR (BEAKER) (test 53 mL/min/1.73 sq m ESTIMATED GFR IS NOT fkpj=9855) ACCURATE CREATININE CLEARANCE IN PREDICTING GLOMERULAR FILTRATION RATE. ESTIMATED GFR IS NOT APPLICABLE FOR DIALYSIS PATIENTS. POCT-GLUCOSE [id number] 21:21:00 Test Item Value Reference Range Comments POC-GLUCOSE METER (BEAKER) 125 mg/dL 70-110 TESTED AT [address] (test shtw=7993) [place] [id number] POCT-GLUCOSE [id number] 17:10:00 Test Item Value Reference Range Comments POC-GLUCOSE METER (BEAKER) 126 mg/dL 70-110 TESTED AT [address] (test rcqr=3075) [place] [id number] POCT-GLUCOSE [id number] 12:02:00 Test Item Value Reference Range Comments POC-GLUCOSE METER (BEAKER) 117 mg/dL 70-110 TESTED AT [address] (test iyzs=4710) [place] [address] POCT-GLUCOSE [id number] 08:10:00 Test Item Value Reference Range Comments POC-GLUCOSE METER (BEAKER) 117 mg/dL 70-110 TESTED AT [address] (test uqjz=2932) [place] [address] [id number] 07:09:00 Test Item Value Reference Range Comments MAGNESIUM (BEAKER) (test dmrv=725) 1.8 mg/dL 1.6-2.6 BASIC METABOLIC [id number] 07:09:00 Test Item Value Reference Range Comments SODIUM (BEAKER) (test 141 meq/L 136-145 opcf=934) POTASSIUM (BEAKER) (test 4.2 meq/L 3.5-5.1 ibkb=942) CHLORIDE (BEAKER) (test 103 meq/L 98-107 tohf=716) CO2 (BEAKER) (test 32 meq/L 22-29 uzct=895) BLOOD UREA NITROGEN 20 mg/dL 7-21 (BEAKER) (test ivpj=062) CREATININE (BEAKER) (test 1.17 mg/dL 0.57-1.25 hfdf=440) GLUCOSE RANDOM (BEAKER) 97 mg/dL 70-105 (test yskc=602) CALCIUM (BEAKER) (test 8.7 mg/dL 8.4-10.2 wvjt=683) EGFR (BEAKER) (test 61 mL/min/1.73 sq m ESTIMATED GFR IS NOT sdcy=0623) ACCURATE CREATININE CLEARANCE IN PREDICTING GLOMERULAR FILTRATION RATE. ESTIMATED GFR IS NOT APPLICABLE FOR DIALYSIS PATIENTS. CBC (HEMOGRAM ONLY)2018-12-30 06:44:00 Test Item Value Reference Range Comments WHITE BLOOD CELL COUNT (BEAKER) (test uakq=639) 6.6 K/ L 3.5-10.5 RED BLOOD CELL COUNT (BEAKER) (test atap=298) 3.42 M/ L 4.63-6.08 HEMOGLOBIN (BEAKER) (test dqfe=161) 8.8 GM/DL 13.7-17.5 HEMATOCRIT (BEAKER) (test llmk=908) 29.2 % 40.1-51.0 MEAN CORPUSCULAR VOLUME (BEAKER) (test pism=370) 85.4 fL 79.0-92.2 MEAN CORPUSCULAR HEMOGLOBIN (BEAKER) (test 25.7 pg 25.7-32.2 xezo=254) MEAN CORPUSCULAR HEMOGLOBIN CONC (BEAKER) (test 30.1 GM/DL 32.3-36.5 jsjz=157) RED CELL DISTRIBUTION WIDTH (BEAKER) (test 14.9 % 11.6-14.4 wqbb=813) PLATELET COUNT (BEAKER) (test zosd=176) 233 K/CU MM 150-450 MEAN PLATELET VOLUME (BEAKER) (test bsbv=892) 10.6 fL 9.4-12.4 NUCLEATED RED BLOOD CELLS (BEAKER) (test 0 /100 WBC 0-0 pogb=978) POCT-GLUCOSE [id number] 21:42:00 Test Item Value Reference Range Comments POC-GLUCOSE METER (BEAKER) 137 mg/dL 70-110 TESTED AT [address] (test prqx=0854) [facility] [address] POCT-GLUCOSE [id number] 17:22:00 Test Item Value Reference Range Comments POC-GLUCOSE METER (BEAKER) 168 mg/dL 70-110 TESTED AT [address] (test ubdq=3117) [place] [id number] POCT-GLUCOSE [id number] 12:54:00 Test Item Value Reference Range Comments POC-GLUCOSE METER (BEAKER) 138 mg/dL 70-110 TESTED AT [address] (test rrfk=9678) [place] [address] [id number] 05:12:00 Test Item Value Reference Range Comments MAGNESIUM (BEAKER) (test sqdj=361) 2.0 mg/dL 1.6-2.6 BASIC METABOLIC [id number] 05:12:00 Test Item Value Reference Range Comments SODIUM (BEAKER) (test 139 meq/L 136-145 sqni=422) POTASSIUM (BEAKER) (test 4.2 meq/L 3.5-5.1 mzjy=522) CHLORIDE (BEAKER) (test 101 meq/L 98-107 iodb=050) CO2 (BEAKER) (test 32 meq/L 22-29 zmya=161) BLOOD UREA NITROGEN 21 mg/dL 7-21 (BEAKER) (test foyy=328) CREATININE (BEAKER) (test 1.11 mg/dL 0.57-1.25 mhci=422) GLUCOSE RANDOM (BEAKER) 92 mg/dL 70-105 (test tcvc=375) CALCIUM (BEAKER) (test 8.3 mg/dL 8.4-10.2 cjmi=219) EGFR (BEAKER) (test 65 mL/min/1.73 sq m ESTIMATED GFR IS NOT coeo=5797) ACCURATE CREATININE CLEARANCE IN PREDICTING GLOMERULAR FILTRATION RATE. ESTIMATED GFR IS NOT APPLICABLE FOR DIALYSIS PATIENTS. BLOOD [id number] 02:00:00 Test Item Value Reference Range Comments CULTURE (BEAKER) (test vrze=4947) No growth in 5 days POCT-GLUCOSE [id number] 21:25:00 Test Item Value Reference Range Comments POC-GLUCOSE METER (BEAKER) 168 mg/dL 70-110 TESTED AT [address] (test rgzr=7103) [facility] [address] POCT-GLUCOSE [id number] 17:16:00 Test Item Value Reference Range Comments POC-GLUCOSE METER (BEAKER) 136 mg/dL 70-110 TESTED AT [address] (test fwkb=2445) [facility] [address] POCT-GLUCOSE [id number] 12:33:00 Test Item Value Reference Range Comments POC-GLUCOSE METER (BEAKER) 127 mg/dL 70-110 TESTED AT [address] (test jkud=6661) [place] [id number] [id number] 06:30:00 Test Item Value Reference Range Comments MAGNESIUM (BEAKER) (test vgat=604) 2.1 mg/dL 1.6-2.6 BASIC METABOLIC [id number] 06:30:00 Test Item Value Reference Range Comments SODIUM (BEAKER) (test 139 meq/L 136-145 tczv=337) POTASSIUM (BEAKER) (test 4.0 meq/L 3.5-5.1 hehq=752) CHLORIDE (BEAKER) (test 101 meq/L 98-107 balj=139) CO2 (BEAKER) (test 31 meq/L 22-29 iiab=609) BLOOD UREA NITROGEN 23 mg/dL 7-21 (BEAKER) (test ohpl=646) CREATININE (BEAKER) (test 1.27 mg/dL 0.57-1.25 hzwj=047) GLUCOSE RANDOM (BEAKER) 106 mg/dL 70-105 (test tfic=283) CALCIUM (BEAKER) (test 8.5 mg/dL 8.4-10.2 alvk=088) EGFR (BEAKER) (test 56 mL/min/1.73 sq m ESTIMATED GFR IS NOT neag=7232) ACCURATE CREATININE CLEARANCE IN PREDICTING GLOMERULAR FILTRATION RATE. ESTIMATED GFR IS NOT APPLICABLE FOR DIALYSIS PATIENTS. POCT-GLUCOSE [id number] 18:40:00 Test Item Value Reference Range Comments POC-GLUCOSE METER (BEAKER) 151 mg/dL 70-110 TESTED AT [address] (test dayc=2431) [place] [id number] POCT-GLUCOSE [id number] 12:32:00 Test Item Value Reference Range Comments POC-GLUCOSE METER (BEAKER) 145 mg/dL 70-110 TESTED AT [address] (test vrum=9964) [place] [address] POCT-GLUCOSE [id number] 09:21:00 Test Item Value Reference Range Comments POC-GLUCOSE METER (BEAKER) 120 mg/dL 70-110 TESTED AT [address] (test ojuy=6354) [place] [address] [id number] 06:50:00 Test Item Value Reference Range Comments MAGNESIUM (BEAKER) (test cqdc=029) 1.8 mg/dL 1.6-2.6 POCT-GLUCOSE [id number] 21:57:00 Test Item Value Reference Range Comments POC-GLUCOSE METER (BEAKER) 110 mg/dL 70-110 TESTED AT [address] (test ohzm=0021) [place] [address] POCT-GLUCOSE [id number] 17:57:00 Test Item Value Reference Range Comments POC-GLUCOSE METER (BEAKER) 130 mg/dL 70-110 TESTED AT [address] (test cnks=5194) [place] [address] RAD, CHEST, 1 VIEW, NON [id number] 16:41:00Reason for exam:->s/p acbShould this be performed [...] Pacheco Verified Date/Time: 12/26/2018 16:41:43 Reading Location: [facility] Radiology Reading Room SPUTUM CULTURE + GRAM [id number] 12:16:00 Test Item Value Reference Range Comments CULTURE (BEAKER) (test 4+ Normal respiratory deandra otzt=7744) present GRAM STAIN RESULT (BEAKER) <1+ White blood cells seen (test dboo=4357) GRAM STAIN RESULT (BEAKER) 0-5 epithelial cells (test pdlh=40437) GRAM STAIN RESULT (BEAKER) <1+ yeast (test iyrt=58154) POCT-GLUCOSE [id number] 11:58:00 Test Item Value Reference Range Comments POC-GLUCOSE METER (BEAKER) 124 mg/dL 70-110 TESTED AT [address] (test zffl=8253) [place] [address] POCT-GLUCOSE [id number] 07:27:00 Test Item Value Reference Range Comments POC-GLUCOSE METER (BEAKER) 140 mg/dL 70-110 TESTED AT [address] (test igtm=4724) [place] [address] [id number] 05:59:00 Test Item Value Reference Range Comments MAGNESIUM (BEAKER) (test lkiu=597) 2.0 mg/dL 1.6-2.6 B-TYPE NATRIURETIC FACTOR (BNP)2018-12-26 05:58:00 Test Item Value Reference Range Comments B-TYPE NATRIURETIC PEPTIDE (BEAKER) (test 1275 pg/mL 0-100 onjb=675) POCT-GLUCOSE [id number] 21:27:00 Test Item Value Reference Range Comments POC-GLUCOSE METER (BEAKER) 181 mg/dL 70-110 TESTED AT [address] (test uevj=2139) [place] [id number] POCT-GLUCOSE [id number] 17:26:00 Test Item Value Reference Range Comments POC-GLUCOSE METER (BEAKER) 133 mg/dL 70-110 TESTED AT [address] (test iczj=2465) [place] [address] POCT-GLUCOSE [id number] 12:21:00 Test Item Value Reference Range Comments POC-GLUCOSE METER (BEAKER) 129 mg/dL 70-110 TESTED AT [address] (test jdul=4187) [facility] [address] RAD, CHEST, 1 VIEW, NON [id number] 10:32:00Reason for exam:->pulmonary edemaShould this be performed at the bedside?->YesFINAL REPORT AP chest HISTORY: Pulmonary edema. COMPARISON: 07/26/2018. IMPRESSION: Cardia megaly. Sternotomy. Moderate diffuse interstitial edema. Moderate effusions. Basilar atelectasis. No pneumothorax. Signed: Serjio Lawrence MDReport Verified Date/Time: 12/25/2018 10:32:11 Reading Location: [facility] Radiology Reading Room POCT-GLUCOSE [id number] 07:45:00 Test Item Value Reference Range Comments POC-GLUCOSE METER (BEAKER) 150 mg/dL 70-[address] [facility] [address] (test tawl=8570) [facility] [address] [id number] 03:20:00 Test Item Value Reference Range Comments MAGNESIUM (BEAKER) (test 2.1 mg/dL 1.6-2.6 Specimen slightly hemolyzed bwcp=248) BASIC METABOLIC [id number] 03:20:00 Test Item Value Reference Range Comments SODIUM (BEAKER) (test 138 meq/L 136-145 gtkz=293) POTASSIUM (BEAKER) (test 4.6 meq/L 3.5-5.1 Specimen slightly oiou=426) hemolyzed CHLORIDE (BEAKER) (test 100 meq/L 98-107 oizr=905) CO2 (BEAKER) (test 32 meq/L 22-29 qwva=582) BLOOD UREA NITROGEN 28 mg/dL 7-21 (BEAKER) (test qrun=521) CREATININE (BEAKER) (test 1.17 mg/dL 0.57-1.25 Specimen slightly pgib=599) hemolyzed GLUCOSE RANDOM (BEAKER) 104 mg/dL 70-105 (test wyin=278) CALCIUM (BEAKER) (test 8.5 mg/dL 8.4-10.2 gthd=190) EGFR (BEAKER) (test 61 mL/min/1.73 sq m ESTIMATED GFR IS NOT knkz=6151) ACCURATE CREATININE CLEARANCE IN PREDICTING GLOMERULAR FILTRATION RATE. ESTIMATED GFR IS NOT APPLICABLE FOR DIALYSIS PATIENTS. [id number] 03:12:00 Test Item Value Reference Range Comments PARTIAL THROMBOPLASTIN TIME (BEAKER) (test 38.2 seconds 22.5-36.0 kgax=989) CBC W/PLT COUNT & AUTO [id number] 03:06:00 Test Item Value Reference Range Comments WHITE BLOOD CELL COUNT (BEAKER) (test oyda=208) 8.0 K/ L 3.5-10.5 RED BLOOD CELL COUNT (BEAKER) (test qzep=399) 3.28 M/ L 4.63-6.08 HEMOGLOBIN (BEAKER) (test perv=226) 8.5 GM/DL 13.7-17.5 HEMATOCRIT (BEAKER) (test swim=667) 27.4 % 40.1-51.0 MEAN CORPUSCULAR VOLUME (BEAKER) (test xacy=986) 83.5 fL 79.0-92.2 MEAN CORPUSCULAR HEMOGLOBIN (BEAKER) (test 25.9 pg 25.7-32.2 dxkb=864) MEAN CORPUSCULAR HEMOGLOBIN CONC (BEAKER) (test 31.0 GM/DL 32.3-36.5 mbmo=089) RED CELL DISTRIBUTION WIDTH (BEAKER) (test 14.6 % 11.6-14.4 unpk=199) PLATELET COUNT (BEAKER) (test vrkm=749) 267 K/CU MM 150-450 MEAN PLATELET VOLUME (BEAKER) (test hdhf=638) 10.9 fL 9.4-12.4 NUCLEATED RED BLOOD CELLS (BEAKER) (test 0 /100 WBC 0-0 ecjc=649) NEUTROPHILS RELATIVE PERCENT (BEAKER) (test 73 % jqow=205) LYMPHOCYTES RELATIVE PERCENT (BEAKER) (test 15 % egwk=258) MONOCYTES RELATIVE PERCENT (BEAKER) (test 9 % vhqb=986) EOSINOPHILS RELATIVE PERCENT (BEAKER) (test 2 % ulpl=134) BASOPHILS RELATIVE PERCENT (BEAKER) (test 1 % cqqd=467) NEUTROPHILS ABSOLUTE COUNT (BEAKER) (test 5.81 K/ L 1.78-5.38 euqi=071) LYMPHOCYTES ABSOLUTE COUNT (BEAKER) (test 1.20 K/ L 1.32-3.57 qfpt=175) MONOCYTES ABSOLUTE COUNT (BEAKER) (test 0.69 K/ L 0.30-0.82 ccsz=350) EOSINOPHILS ABSOLUTE COUNT (BEAKER) (test 0.16 K/ L 0.04-0.54 yqci=584) BASOPHILS ABSOLUTE COUNT (BEAKER) (test 0.05 K/ L 0.01-0.08 mbtc=333) IMMATURE GRANULOCYTES-RELATIVE PERCENT (BEAKER) 1 % 0-1 (test lxhc=3321) CALCIUM, [id number] 02:49:00 Test Item Value Reference Range Comments CALCIUM IONIZED (BEAKER) (test mbxm=955) 1.11 mmol/L 1.12-1.27 PH, BLOOD (BEAKER) (test aiwt=6569) 7.45 POCT-GLUCOSE [id number] 21:52:00 Test Item Value Reference Range Comments POC-GLUCOSE METER (BEAKER) 130 mg/dL 70-110 TESTED AT [address] (test ulyi=4593) [place] [address] [id number] 19:29:00 Test Item Value Reference Range Comments POTASSIUM (BEAKER) (test adke=359) 4.5 meq/L 3.5-5.1 [id number] 19:29:00 Test Item Value Reference Range Comments MAGNESIUM (BEAKER) (test qlce=316) 2.1 mg/dL 1.6-2.6 CALCIUM, [id number] 19:05:00 Test Item Value Reference Range Comments CALCIUM IONIZED (BEAKER) (test twfv=683) 1.18 mmol/L 1.12-1.27 PH, BLOOD (BEAKER) (test obrz=6837) 7.35 POCT-GLUCOSE [id number] 18:34:00 Test Item Value Reference Range Comments POC-GLUCOSE METER (BEAKER) 125 mg/dL 70-110 TESTED AT [address] (test lvcf=4321) [facility] [address] RAD, CHEST, 1 VIEW, NON [id number] 16:43:00Reason for exam:->shortness of BreathShould this be [...] Valdovinos Verified Date/Time: 12/24/2018 16:43:55 Reading Location: [facility] Reading Room POCT-GLUCOSE [id number] 11:44:00 Test Item Value Reference Range Comments POC-GLUCOSE METER (BEAKER) 115 mg/dL 70-110 TESTED AT [address] (test draf=8145) [facility] [address] POCT-GLUCOSE [id number] 09:29:00 Test Item Value Reference Range Comments POC-GLUCOSE METER (BEAKER) 123 mg/dL 70-110 TESTED AT [address] (test toyk=9252) [place] [address] [id number] 04:47:00 Test Item Value Reference Range Comments PARTIAL THROMBOPLASTIN TIME (BEAKER) (test 37.9 seconds 22.5-36.0 wsbq=250) [id number] 04:37:00 Test Item Value Reference Range Comments MAGNESIUM (BEAKER) (test 2.4 mg/dL 1.6-2.6 Specimen slightly hemolyzed ecvl=186) [id number] 04:37:00 Test Item Value Reference Range Comments PHOSPHORUS (BEAKER) (test 4.0 mg/dL 2.3-4.7 Specimen slightly hemolyzed abgs=189) BASIC METABOLIC [id number] 04:37:00 Test Item Value Reference Range Comments SODIUM (BEAKER) (test 139 meq/L 136-145 dfbl=477) POTASSIUM (BEAKER) (test 4.9 meq/L 3.5-5.1 Specimen slightly gpwa=562) hemolyzed CHLORIDE (BEAKER) (test 101 meq/L 98-107 tyqe=842) CO2 (BEAKER) (test 29 meq/L 22-29 mhqw=412) BLOOD UREA NITROGEN 26 mg/dL 7-21 (BEAKER) (test nszx=431) CREATININE (BEAKER) (test 1.14 mg/dL 0.57-1.25 Specimen slightly kmfb=784) hemolyzed GLUCOSE RANDOM (BEAKER) 89 mg/dL 70-105 (test bctk=241) CALCIUM (BEAKER) (test 8.7 mg/dL 8.4-10.2 ollk=662) EGFR (BEAKER) (test 63 mL/min/1.73 sq m ESTIMATED GFR IS NOT yoin=4391) ACCURATE CREATININE CLEARANCE IN PREDICTING GLOMERULAR FILTRATION RATE. ESTIMATED GFR IS NOT APPLICABLE FOR DIALYSIS PATIENTS. CBC (HEMOGRAM ONLY)2018-12-24 04:16:00 Test Item Value Reference Range Comments WHITE BLOOD CELL COUNT (BEAKER) (test pzki=543) 7.4 K/ L 3.5-10.5 RED BLOOD CELL COUNT (BEAKER) (test naxk=307) 3.30 M/ L 4.63-6.08 HEMOGLOBIN (BEAKER) (test csfo=439) 8.5 GM/DL 13.7-17.5 HEMATOCRIT (BEAKER) (test mlna=966) 27.7 % 40.1-51.0 MEAN CORPUSCULAR VOLUME (BEAKER) (test yyss=411) 83.9 fL 79.0-92.2 MEAN CORPUSCULAR HEMOGLOBIN (BEAKER) (test 25.8 pg 25.7-32.2 kkxi=944) MEAN CORPUSCULAR HEMOGLOBIN CONC (BEAKER) (test 30.7 GM/DL 32.3-36.5 pohr=139) RED CELL DISTRIBUTION WIDTH (BEAKER) (test 14.7 % 11.6-14.4 hpxp=062) PLATELET COUNT (BEAKER) (test bbjv=439) 239 K/CU MM 150-450 MEAN PLATELET VOLUME (BEAKER) (test wrtw=258) 10.3 fL 9.4-12.4 NUCLEATED RED BLOOD CELLS (BEAKER) (test 0 /100 WBC 0-0 wzjc=411) POCT-GLUCOSE [id number] 22:39:00 Test Item Value Reference Range Comments POC-GLUCOSE METER (BEAKER) 139 mg/dL 70-[address] [facility] [address] [facility] (test bwti=4366) [place] [address] HEPATIC FUNCTION [id number] 21:41:00 Test Item Value Reference Range Comments TOTAL PROTEIN (BEAKER) (test dzgx=521) 5.9 gm/dL 6.0-8.3 ALBUMIN (BEAKER) (test fgaj=3664) 3.2 g/dL 3.5-5.0 BILIRUBIN TOTAL (BEAKER) (test uvof=715) 0.3 mg/dL 0.2-1.2 BILIRUBIN DIRECT (BEAKER) (test pavj=482) 0.2 mg/dL 0.1-0.5 ALKALINE PHOSPHATASE (BEAKER) (test pktv=506) 50 U/L 40-150 AST (SGOT) (BEAKER) (test jmqb=338) 13 U/L 5-34 ALT (SGPT) (BEAKER) (test xoas=088) 24 U/L 6-55 CALCIUM, [id number] 21:07:00 Test Item Value Reference Range Comments CALCIUM IONIZED (BEAKER) (test bbrb=586) 1.15 mmol/L 1.12-1.27 PH, BLOOD (BEAKER) (test nkee=8234) 7.41 LACTIC ACID, [id number] 20:16:00 Test Item Value Reference Range Comments LACTATE BLOOD VENOUS (2) 0.9 mmol/L 0.5-2.2 Specimen slightly hemolyzed (BEAKER) (test awjl=4946) [id number] 18:53:00 Test Item Value Reference Range Comments PROCALCITONIN (BEAKER) (test wvdz=3548) < ng/mL <0.05 SEPSIS RISK (ng/mL)Low: 0.05-0.50Intermediate: 0.51-2.00High: & gt;=2.01BASIC METABOLIC [id number] 18:25:00 Test Item Value Reference Range Comments SODIUM (BEAKER) (test 140 meq/L 136-145 sxuw=135) POTASSIUM (BEAKER) (test 4.5 meq/L 3.5-5.1 kgyo=167) CHLORIDE (BEAKER) (test 100 meq/L 98-107 fiht=321) CO2 (BEAKER) (test 33 meq/L 22-29 mxem=823) BLOOD UREA NITROGEN 26 mg/dL 7-21 (BEAKER) (test btbf=975) CREATININE (BEAKER) (test 1.25 mg/dL 0.57-1.25 oqrz=525) GLUCOSE RANDOM (BEAKER) 97 mg/dL 70-105 (test phmv=972) CALCIUM (BEAKER) (test 8.7 mg/dL 8.4-10.2 bced=908) EGFR (BEAKER) (test 57 mL/min/1.73 sq m ESTIMATED GFR IS NOT zyrf=0676) ACCURATE CREATININE CLEARANCE IN PREDICTING GLOMERULAR FILTRATION RATE. ESTIMATED GFR IS NOT APPLICABLE FOR DIALYSIS PATIENTS. [id number] 18:20:00 Test Item Value Reference Range Comments MAGNESIUM (BEAKER) (test fwpf=560) 2.2 mg/dL 1.6-2.6 Check Serum Magnesium level 2 hours after IV magnesium replacement.POCT-GLUCOSE [id number] 17:58:00 Test Item Value Reference Range Comments POC-GLUCOSE METER (BEAKER) 101 mg/dL 70-[address] [facility] [address] [facility] (test wszl=9604) [facility] [address] HEMOGLOBIN AND [id number] 17:42:00 Test Item Value Reference Range Comments HEMOGLOBIN (BEAKER) (test spzn=601) 8.0 GM/DL 13.7-17.5 HEMATOCRIT (BEAKER) (test juni=153) 25.8 % 40.1-51.0 CBC (HEMOGRAM ONLY)2018-12-23 17:42:00 Test Item Value Reference Range Comments WHITE BLOOD CELL COUNT (BEAKER) (test qgfa=884) 8.6 K/ L 3.5-10.5 RED BLOOD CELL COUNT (BEAKER) (test zldj=299) 3.05 M/ L 4.63-6.08 HEMOGLOBIN (BEAKER) (test seff=630) 8.0 GM/DL 13.7-17.5 HEMATOCRIT (BEAKER) (test uhck=137) 25.8 % 40.1-51.0 MEAN CORPUSCULAR VOLUME (BEAKER) (test jkhd=816) 84.6 fL 79.0-92.2 MEAN CORPUSCULAR HEMOGLOBIN (BEAKER) (test 26.2 pg 25.7-32.2 aako=665) MEAN CORPUSCULAR HEMOGLOBIN CONC (BEAKER) (test 31.0 GM/DL 32.3-36.5 lxzg=408) RED CELL DISTRIBUTION WIDTH (BEAKER) (test 14.7 % 11.6-14.4 lujg=946) PLATELET COUNT (BEAKER) (test abag=908) 246 K/CU MM 150-450 MEAN PLATELET VOLUME (BEAKER) (test jori=701) 10.7 fL 9.4-12.4 NUCLEATED RED BLOOD CELLS (BEAKER) (test 0 /100 WBC 0-0 gxlg=541) POCT-GLUCOSE [id number] 12:24:00 Test Item Value Reference Range Comments POC-GLUCOSE METER (BEAKER) 108 mg/dL 70-110 TESTED AT [address] (test voqi=5800) [place] [id number] RAD, CHEST, 1 VIEW, NON [id number] 09:04:00Reason for exam:->pulmonary edemaShould this be performed [...] Katie Salinas Verified Date/Time: 12/23/2018 09:04:24 Reading Location:[facility] Radiology Reading Room 09:04 AMPOCT-GLUCOSE [id number] 08:01:00 Test Item Value Reference Range Comments POC-GLUCOSE METER (BEAKER) 123 mg/dL 70-110 TESTED AT [address] (test evrr=1982) [place] [address] [id number] 05:56:00 Test Item Value Reference Range Comments MAGNESIUM (BEAKER) (test 2.1 mg/dL 1.6-2.6 Specimen slightly hemolyzed iuci=227) [id number] 05:56:00 Test Item Value Reference Range Comments PHOSPHORUS (BEAKER) (test 3.5 mg/dL 2.3-4.7 Specimen slightly hemolyzed niel=839) BASIC METABOLIC [id number] 05:56:00 Test Item Value Reference Range Comments SODIUM (BEAKER) (test 140 meq/L 136-145 acvv=295) POTASSIUM (BEAKER) (test 4.9 meq/L 3.5-5.1 Specimen slightly rwjj=816) hemolyzed CHLORIDE (BEAKER) (test 101 meq/L 98-107 qiib=853) CO2 (BEAKER) (test 32 meq/L 22-29 dduz=808) BLOOD UREA NITROGEN 27 mg/dL 7-21 (BEAKER) (test loak=691) CREATININE (BEAKER) (test 1.22 mg/dL 0.57-1.25 Specimen slightly dmxw=399) hemolyzed GLUCOSE RANDOM (BEAKER) 106 mg/dL 70-105 (test wudg=890) CALCIUM (BEAKER) (test 8.7 mg/dL 8.4-10.2 nhde=016) EGFR (BEAKER) (test 58 mL/min/1.73 sq m ESTIMATED GFR IS NOT khlu=4791) ACCURATE CREATININE CLEARANCE IN PREDICTING GLOMERULAR FILTRATION RATE. ESTIMATED GFR IS NOT APPLICABLE FOR DIALYSIS PATIENTS. [id number] 04:41:00 Test Item Value Reference Range Comments PARTIAL THROMBOPLASTIN TIME (BEAKER) (test 35.4 seconds 22.5-36.0 ciyi=257) CBC (HEMOGRAM ONLY)2018-12-23 04:33:00 Test Item Value Reference Range Comments WHITE BLOOD CELL COUNT (BEAKER) (test glmr=900) 11.1 K/ L 3.5-10.5 RED BLOOD CELL COUNT (BEAKER) (test izzk=380) 3.55 M/ L 4.63-6.08 HEMOGLOBIN (BEAKER) (test rzjr=968) 9.3 GM/DL 13.7-17.5 HEMATOCRIT (BEAKER) (test enun=243) 30.3 % 40.1-51.0 MEAN CORPUSCULAR VOLUME (BEAKER) (test ylft=038) 85.4 fL 79.0-92.2 MEAN CORPUSCULAR HEMOGLOBIN (BEAKER) (test 26.2 pg 25.7-32.2 czvq=454) MEAN CORPUSCULAR HEMOGLOBIN CONC (BEAKER) (test 30.7 GM/DL 32.3-36.5 yvaj=653) RED CELL DISTRIBUTION WIDTH (BEAKER) (test 14.9 % 11.6-14.4 mejr=679) PLATELET COUNT (BEAKER) (test vjdy=823) 292 K/CU MM 150-450 MEAN PLATELET VOLUME (BEAKER) (test baml=188) 10.5 fL 9.4-12.4 NUCLEATED RED BLOOD CELLS (BEAKER) (test 0 /100 WBC 0-0 gbgt=762) POCT-GLUCOSE [id number] 21:25:00 Test Item Value Reference Range Comments POC-GLUCOSE METER (BEAKER) 151 mg/dL 70-110 TESTED AT [address] (test jdtj=5958) [place] [address] [id number] 19:38:00 Test Item Value Reference Range Comments PARTIAL THROMBOPLASTIN TIME (BEAKER) (test 38.7 seconds 22.5-36.0 vrft=391) POCT-GLUCOSE [id number] 18:50:00 Test Item Value Reference Range Comments POC-GLUCOSE METER (BEAKER) 126 mg/dL 70-110 TESTED AT [address] (test fjtm=0978) [place] [address] [id number] 16:08:00 Test Item Value Reference Range Comments POTASSIUM (BEAKER) (test arma=945) 4.7 meq/L 3.5-5.1 PRN - repeat potassium levels every 1 hour until glucose level is less than 450 mg/[id number] 16:08:00 Test Item Value Reference Range Comments MAGNESIUM (BEAKER) (test mndd=419) 2.2 mg/dL 1.6-2.6 PRN - repeat potassium levels every 1 hour until glucose level is less than 450 mg/dLPOCT-GLUCOSE [id number] 11:44:00 Test Item Value Reference Range Comments POC-GLUCOSE METER (BEAKER) 134 mg/dL 70-110 TESTED AT [address] (test jcfr=7005) [place] [address] POCT-GLUCOSE [id number] 08:15:00 Test Item Value Reference Range Comments POC-GLUCOSE METER (BEAKER) 173 mg/dL 70-110 TESTED AT [address] (test fnij=1266) [place] [address] RAD, CHEST, 1 VIEW, NON [id number] 07:38:00Reason for exam:->pulmonary edemaShould this be performed [...] Rosendo [place] Verified Date/Time: 07:38:37 Reading Location: [facility] Radiology Reading Room CALCIUM, [id number] 05:13:00 Test Item Value Reference Range Comments CALCIUM IONIZED (BEAKER) (test turf=164) 1.12 mmol/L 1.12-1.27 PH, BLOOD (BEAKER) (test plbr=3518) 7.40 [id number] 04:53:00 Test Item Value Reference Range Comments PHOSPHORUS (BEAKER) (test ncsn=855) 3.5 mg/dL 2.3-4.7 [id number] 04:53:00 Test Item Value Reference Range Comments MAGNESIUM (BEAKER) (test qhyq=041) 2.0 mg/dL 1.6-2.6 BASIC METABOLIC [id number] 04:53:00 Test Item Value Reference Range Comments SODIUM (BEAKER) (test 142 meq/L 136-145 tglg=695) POTASSIUM (BEAKER) (test 4.7 meq/L 3.5-5.1 fydk=138) CHLORIDE (BEAKER) (test 103 meq/L 98-107 fziw=605) CO2 (BEAKER) (test 32 meq/L 22-29 zmwg=023) BLOOD UREA NITROGEN 27 mg/dL 7-21 (BEAKER) (test zlti=216) CREATININE (BEAKER) (test 1.08 mg/dL 0.57-1.25 uwqw=280) GLUCOSE RANDOM (BEAKER) 95 mg/dL 70-105 (test nqza=711) CALCIUM (BEAKER) (test 8.5 mg/dL 8.4-10.2 ahqx=723) EGFR (BEAKER) (test 67 mL/min/1.73 sq m ESTIMATED GFR IS NOT ertt=9118) ACCURATE CREATININE CLEARANCE IN PREDICTING GLOMERULAR FILTRATION RATE. ESTIMATED GFR IS NOT APPLICABLE FOR DIALYSIS PATIENTS. CBC (HEMOGRAM ONLY)2018-12-22 04:26:00 Test Item Value Reference Range Comments WHITE BLOOD CELL COUNT (BEAKER) (test uvgg=835) 11.4 K/ L 3.5-10.5 RED BLOOD CELL COUNT (BEAKER) (test xjpg=727) 3.47 M/ L 4.63-6.08 HEMOGLOBIN (BEAKER) (test tepf=674) 9.0 GM/DL 13.7-17.5 HEMATOCRIT (BEAKER) (test hufj=621) 29.7 % 40.1-51.0 MEAN CORPUSCULAR VOLUME (BEAKER) (test qzxx=007) 85.6 fL 79.0-92.2 MEAN CORPUSCULAR HEMOGLOBIN (BEAKER) (test 25.9 pg 25.7-32.2 ixzl=555) MEAN CORPUSCULAR HEMOGLOBIN CONC (BEAKER) (test 30.3 GM/DL 32.3-36.5 qcer=505) RED CELL DISTRIBUTION WIDTH (BEAKER) (test 15.0 % 11.6-14.4 vicw=874) PLATELET COUNT (BEAKER) (test oeoi=482) 257 K/CU MM 150-450 MEAN PLATELET VOLUME (BEAKER) (test dxqt=030) 10.8 fL 9.4-12.4 NUCLEATED RED BLOOD CELLS (BEAKER) (test 0 /100 WBC 0-0 ahhy=144) POCT-GLUCOSE [id number] 22:07:00 Test Item Value Reference Range Comments POC-GLUCOSE METER (BEAKER) 182 mg/dL 70-110 TESTED AT [address] (test liyj=0591) [facility] [address] POCT-GLUCOSE [id number] 17:42:00 Test Item Value Reference Range Comments POC-GLUCOSE METER (BEAKER) 183 mg/dL 70-110 TESTED AT [address] (test leyi=2361) [facility] [address] [id number] 13:25:00 Test Item Value Reference Range Comments MAGNESIUM (BEAKER) (test 2.2 mg/dL 1.6-2.6 Specimen slightly hemolyzed fpri=702) Check Serum Magnesium level 2 hours after IV magnesium replacement.Check Serum Phosphorus level 4 hours after IV phosphorus replacement or 8 hours after PO replacement completed.Check Serum Potassium level 2 hours after oral potassium replacement completed or 30 min after intravenous potassium replacement.[id number] 13:25:00 Test Item Value Reference Range Comments PHOSPHORUS (BEAKER) (test 3.3 mg/dL 2.3-4.7 Specimen slightly hemolyzed cxvy=183) Check Serum Magnesium level 2 hours after IV magnesium replacement.Check Serum Phosphorus level 4 hours after IV phosphorus replacement or 8 hours after PO replacement completed.Check Serum Potassium level 2 hours after oral potassium replacement completed or 30 min after intravenous potassium replacement.[id number] 13:25:00 Test Item Value Reference Range Comments POTASSIUM (BEAKER) (test 4.6 meq/L 3.5-5.1 Specimen slightly hemolyzed eegc=347) Check Serum Magnesium level 2 hours after IV magnesium replacement.Check Serum Phosphorus level 4 hours after IV phosphorus replacement or 8 hours after PO replacement completed.Check Serum Potassium level 2 hours after oral potassium replacement completed or 30 min after intravenous potassium replacement.CALCIUM , [id number] 13:04:00 Test Item Value Reference Range Comments CALCIUM IONIZED (BEAKER) (test hsmw=356) 1.13 mmol/L 1.12-1.27 PH, BLOOD (BEAKER) (test wwul=0448) 7.45 Check serum Ionized Calcium level after 4 hours after IV Calcium replacement.POCT-GLUCOSE [id number] 11:41:00 Test Item Value Reference Range Comments POC-GLUCOSE METER (BEAKER) 155 mg/dL 70-110 TESTED AT [address] (test mvnu=3939) [facility] [address] RAD, CHEST, 1 VIEW, NON [id number] 09:25:00Reason for exam:->pulmonary edemaShould this be performed [...] REDDYeport Verified Date/Time: 12/21/2018 09:25:43 Reading Location: [facility] C013V Neuro Reading Room POCT-GLUCOSE [id number] 07:42: 00 Test Item Value Reference Range Comments POC-GLUCOSE METER (BEAKER) 138 mg/dL 70-[address] [facility] [address] [facility] (test fbfu=8597) [facility] [address] [id number] 06:04:00 Test Item Value Reference Range Comments PHOSPHORUS (BEAKER) (test rrje=045) 3.0 mg/dL 2.3-4.7 [id number] 06:04:00 Test Item Value Reference Range Comments MAGNESIUM (BEAKER) (test agao=271) 2.3 mg/dL 1.6-2.6 BASIC METABOLIC [id number] 06:04:00 Test Item Value Reference Range Comments SODIUM (BEAKER) (test 139 meq/L 136-145 flod=867) POTASSIUM (BEAKER) (test 4.3 meq/L 3.5-5.1 refq=032) CHLORIDE (BEAKER) (test 100 meq/L 98-107 qxuk=812) CO2 (BEAKER) (test 32 meq/L 22-29 wcxz=173) BLOOD UREA NITROGEN 25 mg/dL 7-21 (BEAKER) (test wpjw=003) CREATININE (BEAKER) (test 1.04 mg/dL 0.57-1.25 yvym=843) GLUCOSE RANDOM (BEAKER) 114 mg/dL 70-105 (test runw=877) CALCIUM (BEAKER) (test 8.0 mg/dL 8.4-10.2 oyum=968) EGFR (BEAKER) (test 70 mL/min/1.73 sq m ESTIMATED GFR IS NOT gvqo=9811) ACCURATE CREATININE CLEARANCE IN PREDICTING GLOMERULAR FILTRATION RATE. ESTIMATED GFR IS NOT APPLICABLE FOR DIALYSIS PATIENTS. CALCIUM, [id number] 05:37:00 Test Item Value Reference Range Comments CALCIUM IONIZED (BEAKER) (test oqtu=758) 1.10 mmol/L 1.12-1.27 PH, BLOOD (BEAKER) (test drqr=6548) 7.41 CBC (HEMOGRAM ONLY)2018-12-21 04:45:00 Test Item Value Reference Range Comments WHITE BLOOD CELL COUNT (BEAKER) (test tfvv=378) 11.6 K/ L 3.5-10.5 RED BLOOD CELL COUNT (BEAKER) (test cknl=043) 3.74 M/ L 4.63-6.08 HEMOGLOBIN (BEAKER) (test zlwh=781) 9.8 GM/DL 13.7-17.5 HEMATOCRIT (BEAKER) (test ffey=944) 31.6 % 40.1-51.0 MEAN CORPUSCULAR VOLUME (BEAKER) (test axtx=465) 84.5 fL 79.0-92.2 MEAN CORPUSCULAR HEMOGLOBIN (BEAKER) (test 26.2 pg 25.7-32.2 exce=380) MEAN CORPUSCULAR HEMOGLOBIN CONC (BEAKER) (test 31.0 GM/DL 32.3-36.5 oyne=595) RED CELL DISTRIBUTION WIDTH (BEAKER) (test 15.1 % 11.6-14.4 pkjq=456) PLATELET COUNT (BEAKER) (test tyuz=948) 250 K/CU MM 150-450 MEAN PLATELET VOLUME (BEAKER) (test sxnq=368) 10.7 fL 9.4-12.4 NUCLEATED RED BLOOD CELLS (BEAKER) (test 0 /100 WBC 0-0 xabw=839) [id number] 00:49:00 Test Item Value Reference Range Comments POTASSIUM (BEAKER) (test hwmt=707) 4.6 meq/L 3.5-5.1 [id number] 00:49:00 Test Item Value Reference Range Comments MAGNESIUM (BEAKER) (test uokg=022) 2.0 mg/dL 1.6-2.6 POCT-GLUCOSE [id number] 22:01:00 Test Item Value Reference Range Comments POC-GLUCOSE METER (BEAKER) 163 mg/dL 70-[address] [facility] [address] [facility] (test ngmm=5850) [place] [address] [id number] 17:05:00 Test Item Value Reference Range Comments POTASSIUM (BEAKER) (test skku=503) 3.7 meq/L 3.5-5.1 [id number] 17:05:00 Test Item Value Reference Range Comments MAGNESIUM (BEAKER) (test qrct=720) 2.1 mg/dL 1.6-2.6 POCT-GLUCOSE [id number] 16:53:00 Test Item Value Reference Range Comments POC-GLUCOSE METER (BEAKER) 147 mg/dL 70-110 TESTED AT [address] (test secw=3578) [place] [address] POCT-GLUCOSE [id number] 12:24:00 Test Item Value Reference Range Comments POC-GLUCOSE METER (BEAKER) 123 mg/dL 70-110 TESTED AT [address] (test vktf=2887) [place] [address] [id number] 10:35:00 Test Item Value Reference Range Comments POTASSIUM (BEAKER) (test dpys=638) 3.7 meq/L 3.5-5.1 [id number] 10:35:00 Test Item Value Reference Range Comments MAGNESIUM (BEAKER) (test pnoc=392) 2.1 mg/dL 1.6-2.6 POCT-GLUCOSE [id number] 07:55:00 Test Item Value Reference Range Comments POC-GLUCOSE METER (BEAKER) 137 mg/dL 70-110 TESTED AT [address] (test uzqm=8031) [place] [address] RAD, CHEST, 1 VIEW, NON [id number] 07:36:00Reason for exam:->pulmonary edemaShould this be performed [...] MDReport Verified Date/Time: 12/20/2018 07:36:57 Reading Location: [address] Neuro Reading Room POTASSIUM-STAT [id number] 04:45:00 Test Item Value Reference Range Comments POTASSIUM (BEAKER) (test fmkg=280) 3.6 meq/L 3.6-5.5 CALCIUM, [id number] 04:45:00 Test Item Value Reference Range Comments CALCIUM IONIZED (BEAKER) (test qrtp=461) 1.11 mmol/L 1.12-1.27 PH, BLOOD (BEAKER) (test ejow=8094) 7.48 [id number] 04:39:00 Test Item Value Reference Range Comments PHOSPHORUS (BEAKER) (test qjmr=647) 2.6 mg/dL 2.3-4.7 [id number] 04:39:00 Test Item Value Reference Range Comments MAGNESIUM (BEAKER) (test gfik=343) 2.1 mg/dL 1.6-2.6 BASIC METABOLIC [id number] 04:39:00 Test Item Value Reference Range Comments SODIUM (BEAKER) (test 138 meq/L 136-145 qgbo=613) POTASSIUM (BEAKER) (test 3.7 meq/L 3.5-5.1 wwxb=849) CHLORIDE (BEAKER) (test 101 meq/L 98-107 egzf=363) CO2 (BEAKER) (test 30 meq/L 22-29 dolu=218) BLOOD UREA NITROGEN 24 mg/dL 7-21 (BEAKER) (test ejxh=689) CREATININE (BEAKER) (test 0.95 mg/dL 0.57-1.25 fijp=838) GLUCOSE RANDOM (BEAKER) 113 mg/dL 70-105 (test gtuo=565) CALCIUM (BEAKER) (test 8.2 mg/dL 8.4-10.2 lwdy=193) EGFR (BEAKER) (test 78 mL/min/1.73 sq m ESTIMATED GFR IS NOT drgw=6376) ACCURATE CREATININE CLEARANCE IN PREDICTING GLOMERULAR FILTRATION RATE. ESTIMATED GFR IS NOT APPLICABLE FOR DIALYSIS PATIENTS. CBC (HEMOGRAM ONLY)2018-12-20 04:25:00 Test Item Value Reference Range Comments WHITE BLOOD CELL COUNT (BEAKER) (test yjhj=611) 12.1 K/ L 3.5-10.5 RED BLOOD CELL COUNT (BEAKER) (test qjrk=732) 3.60 M/ L 4.63-6.08 HEMOGLOBIN (BEAKER) (test tugl=011) 9.7 GM/DL 13.7-17.5 HEMATOCRIT (BEAKER) (test grtk=996) 30.4 % 40.1-51.0 MEAN CORPUSCULAR VOLUME (BEAKER) (test itau=679) 84.4 fL 79.0-92.2 MEAN CORPUSCULAR HEMOGLOBIN (BEAKER) (test 26.9 pg 25.7-32.2 zlvw=086) MEAN CORPUSCULAR HEMOGLOBIN CONC (BEAKER) (test 31.9 GM/DL 32.3-36.5 rilh=856) RED CELL DISTRIBUTION WIDTH (BEAKER) (test 14.9 % 11.6-14.4 mzoa=114) PLATELET COUNT (BEAKER) (test cphw=233) 198 K/CU MM 150-450 MEAN PLATELET VOLUME (BEAKER) (test nblp=495) 11.3 fL 9.4-12.4 NUCLEATED RED BLOOD CELLS (BEAKER) (test 0 /100 WBC 0-0 hmhv=001) [id number] 23:33:00 Test Item Value Reference Range Comments MAGNESIUM (BEAKER) (test hlgy=341) 2.0 mg/dL 1.6-2.6 BASIC METABOLIC [id number] 23:33:00 Test Item Value Reference Range Comments SODIUM (BEAKER) (test 139 meq/L 136-145 ujkn=661) POTASSIUM (BEAKER) (test 3.7 meq/L 3.5-5.1 dltl=122) CHLORIDE (BEAKER) (test 102 meq/L 98-107 triy=830) CO2 (BEAKER) (test 29 meq/L 22-29 zeqa=413) BLOOD UREA NITROGEN 26 mg/dL 7-21 (BEAKER) (test yywd=811) CREATININE (BEAKER) (test 0.98 mg/dL 0.57-1.25 gdxc=973) GLUCOSE RANDOM (BEAKER) 120 mg/dL 70-105 (test ogcd=912) CALCIUM (BEAKER) (test 8.0 mg/dL 8.4-10.2 ulam=122) EGFR (BEAKER) (test 75 mL/min/1.73 sq m ESTIMATED GFR IS NOT ebhe=2344) ACCURATE CREATININE CLEARANCE IN PREDICTING GLOMERULAR FILTRATION RATE. ESTIMATED GFR IS NOT APPLICABLE FOR DIALYSIS PATIENTS. CALCIUM, [id number] 22:52:00 Test Item Value Reference Range Comments CALCIUM IONIZED (BEAKER) (test wcdy=038) 1.10 mmol/L 1.12-1.27 PH, BLOOD (BEAKER) (test gwhd=1813) 7.43 POCT-GLUCOSE [id number] 21:53:00 Test Item Value Reference Range Comments POC-GLUCOSE METER (BEAKER) 138 mg/dL 70-110 TESTED AT [address] (test oicn=3071) [place] [address] POCT-GLUCOSE [id number] 18:02:00 Test Item Value Reference Range Comments POC-GLUCOSE METER (BEAKER) 185 mg/dL 70-110 TESTED AT [address] (test reth=8506) [place] [address] [id number] 15:24:00 Test Item Value Reference Range Comments POTASSIUM (BEAKER) (test ifyl=410) 4.0 meq/L 3.5-5.1 [id number] 15:24:00 Test Item Value Reference Range Comments MAGNESIUM (BEAKER) (test wcvv=562) 2.1 mg/dL 1.6-2.6 POCT-GLUCOSE [id number] 13:05:00 Test Item Value Reference Range Comments POC-GLUCOSE METER (BEAKER) 156 mg/dL 70-110 TESTED AT [address] (test axig=9193) [place] [id number] POCT-GLUCOSE [id number] 08:12:00 Test Item Value Reference Range Comments POC-GLUCOSE METER (BEAKER) 108 mg/dL 70-110 TESTED AT [address] (test ncon=4517) [place] [address] RAD, CHEST, 1 VIEW, NON [id number] 07:53:00Reason for exam:->pulmonary edemaShould this be performed [...] MDReport Verified Date/Time: 12/19/2018 07:53:09 Reading Location: [facility] Radiology Reading Room [id number] 03:56:00 Test Item Value Reference Range Comments PHOSPHORUS (BEAKER) (test cjmk=052) 2.4 mg/dL 2.3-4.7 [id number] 03:56:00 Test Item Value Reference Range Comments MAGNESIUM (BEAKER) (test imnv=279) 2.0 mg/dL 1.6-2.6 BASIC METABOLIC [id number] 03:56:00 Test Item Value Reference Range Comments SODIUM (BEAKER) (test 139 meq/L 136-145 xbtj=237) POTASSIUM (BEAKER) (test 3.9 meq/L 3.5-5.1 sxwj=175) CHLORIDE (BEAKER) (test 106 meq/L 98-107 kozj=648) CO2 (BEAKER) (test 27 meq/L 22-29 ukem=374) BLOOD UREA NITROGEN 25 mg/dL 7-21 (BEAKER) (test aeqx=095) CREATININE (BEAKER) (test 0.90 mg/dL 0.57-1.25 nbfv=612) GLUCOSE RANDOM (BEAKER) 116 mg/dL 70-105 (test bsjo=810) CALCIUM (BEAKER) (test 8.1 mg/dL 8.4-10.2 cddr=099) EGFR (BEAKER) (test 83 mL/min/1.73 sq m ESTIMATED GFR IS NOT atti=2921) ACCURATE CREATININE CLEARANCE IN PREDICTING GLOMERULAR FILTRATION RATE. ESTIMATED GFR IS NOT APPLICABLE FOR DIALYSIS PATIENTS. CBC (HEMOGRAM ONLY)2018-12-19 03:34:00 Test Item Value Reference Range Comments WHITE BLOOD CELL COUNT (BEAKER) (test qhwl=151) 13.0 K/ L 3.5-10.5 RED BLOOD CELL COUNT (BEAKER) (test kihv=839) 3.63 M/ L 4.63-6.08 HEMOGLOBIN (BEAKER) (test xdnn=732) 9.5 GM/DL 13.7-17.5 HEMATOCRIT (BEAKER) (test glkc=986) 30.4 % 40.1-51.0 MEAN CORPUSCULAR VOLUME (BEAKER) (test lpis=096) 83.7 fL 79.0-92.2 MEAN CORPUSCULAR HEMOGLOBIN (BEAKER) (test 26.2 pg 25.7-32.2 xsxk=601) MEAN CORPUSCULAR HEMOGLOBIN CONC (BEAKER) (test 31.3 GM/DL 32.3-36.5 syab=556) RED CELL DISTRIBUTION WIDTH (BEAKER) (test 14.9 % 11.6-14.4 boac=491) PLATELET COUNT (BEAKER) (test dkyi=565) 149 K/CU MM 150-450 MEAN PLATELET VOLUME (BEAKER) (test alcv=943) 11.6 fL 9.4-12.4 NUCLEATED RED BLOOD CELLS (BEAKER) (test 0 /100 WBC 0-0 jhpg=305) CALCIUM, [id number] 03:29:00 Test Item Value Reference Range Comments CALCIUM IONIZED (BEAKER) (test essa=227) 1.10 mmol/L 1.12-1.27 PH, BLOOD (BEAKER) (test tlfz=7024) 7.47 POCT-GLUCOSE [id number] 22:30:00 Test Item Value Reference Range Comments POC-GLUCOSE METER (BEAKER) 115 mg/dL 70-[address] [facility] [address] [facility] (test zudl=6618) [facility] [address] [id number] 20:25:00 Test Item Value Reference Range Comments MAGNESIUM (BEAKER) (test tshw=608) 2.1 mg/dL 1.6-2.6 BASIC METABOLIC [id number] 20:25:00 Test Item Value Reference Range Comments SODIUM (BEAKER) (test 137 meq/L 136-145 idwy=624) POTASSIUM (BEAKER) (test 4.1 meq/L 3.5-5.1 awyy=857) CHLORIDE (BEAKER) (test 105 meq/L 98-107 upke=143) CO2 (BEAKER) (test 26 meq/L 22-29 zyfi=024) BLOOD UREA NITROGEN 25 mg/dL 7-21 (BEAKER) (test llez=994) CREATININE (BEAKER) (test 0.91 mg/dL 0.57-1.25 jvfg=499) GLUCOSE RANDOM (BEAKER) 180 mg/dL 70-105 (test nwvo=996) CALCIUM (BEAKER) (test 8.0 mg/dL 8.4-10.2 xune=476) EGFR (BEAKER) (test 82 mL/min/1.73 sq m ESTIMATED GFR IS NOT lkht=6524) ACCURATE CREATININE CLEARANCE IN PREDICTING GLOMERULAR FILTRATION RATE. ESTIMATED GFR IS NOT APPLICABLE FOR DIALYSIS PATIENTS. CALCIUM, [id number] 20:03:00 Test Item Value Reference Range Comments CALCIUM IONIZED (BEAKER) (test vmqk=717) 1.14 mmol/L 1.12-1.27 PH, BLOOD (BEAKER) (test liou=3497) 7.48 POCT-GLUCOSE [id number] 17:42:00 Test Item Value Reference Range Comments POC-GLUCOSE METER (BEAKER) 125 mg/dL 70-110 TESTED AT [address] (test utxj=1872) [facility] [address] [id number] 13:50:00 Test Item Value Reference Range Comments MAGNESIUM (BEAKER) (test 2.1 mg/dL 1.6-2.6 Specimen slightly hemolyzed hymb=501) Check Serum Magnesium level 2 hours after IV magnesium replacement.Check Serum Potassium level 2 hours after oral potassium replacement completed or 30 min after intravenous potassium replacement.[id number] 13:50:00 Test Item Value Reference Range Comments POTASSIUM (BEAKER) (test 4.4 meq/L 3.5-5.1 Specimen slightly hemolyzed hwbn=514) Check Serum Magnesium level 2 hours after IV magnesium replacement.Check Serum Potassium level 2 hours after oral potassium replacement completed or 30 min after intravenous potassium replacement.POCT-GLUCOSE [id number] 12:31:00 Test Item Value Reference Range Comments POC-GLUCOSE METER (BEAKER) 165 mg/dL 70-[address] [facility] [address] [facility] (test atzz=1478) [facility] [address] RAD, CHEST, 1 VIEW, NON [id number] 08:44:00Reason for exam:->SOBShould this be performed at [...] Verified Date/Time: 12/18/2018 08:44 :28 Reading Location: [facility] Radiology Reading Room POCT-GLUCOSE [id number] 08:02:00 Test Item Value Reference Range Comments POC-GLUCOSE METER (BEAKER) 154 mg/dL 70-110 TESTED AT [address] (test ijcg=4617) [facility] [address] BLOOD GAS, [id number] 07:34:00 Test Item Value Reference Range Comments PH ARTERIAL (BEAKER) (test oiez=170) 7.46 7.35-7.45 PCO2 ARTERIAL (BEAKER) (test qdno=409) 37 mmHg 35-45 PO2 ARTERIAL (BEAKER) (test yzev=684) 69 mmHg 80-90 O2 SATURATION ARTERIAL (BEAKER) (test nigj=258) 94.8 % 96.0-97.0 HCO3 ARTERIAL (BEAKER) (test wjck=066) 26 mmol/L 21-29 BASE EXCESS ARTERIAL (BEAKER) (test rjoj=294) 1.8 mmol/L -2.0-3.0 PATIENT TEMPERATURE (BEAKER) (test afsq=9025) 37.0 C FIO2 (BEAKER) (test munu=9557) 40.0 % [id number] 05:04:00 Test Item Value Reference Range Comments PHOSPHORUS (BEAKER) (test ojjv=948) 2.1 mg/dL 2.3-4.7 [id number] 05:04:00 Test Item Value Reference Range Comments MAGNESIUM (BEAKER) (test wqlv=603) 2.0 mg/dL 1.6-2.6 BASIC METABOLIC [id number] 05:04:00 Test Item Value Reference Range Comments SODIUM (BEAKER) (test 136 meq/L 136-145 yrnf=067) POTASSIUM (BEAKER) (test 4.4 meq/L 3.5-5.1 ryge=470) CHLORIDE (BEAKER) (test 107 meq/L 98-107 qrbq=195) CO2 (BEAKER) (test 24 meq/L 22-29 zyay=929) BLOOD UREA NITROGEN 22 mg/dL 7-21 (BEAKER) (test iifp=508) CREATININE (BEAKER) (test 0.89 mg/dL 0.57-1.25 qofe=747) GLUCOSE RANDOM (BEAKER) 135 mg/dL 70-105 (test ukbj=463) CALCIUM (BEAKER) (test 8.2 mg/dL 8.4-10.2 yrvg=018) EGFR (BEAKER) (test 84 mL/min/1.73 sq m ESTIMATED GFR IS NOT ahgo=5101) ACCURATE CREATININE CLEARANCE IN PREDICTING GLOMERULAR FILTRATION RATE. ESTIMATED GFR IS NOT APPLICABLE FOR DIALYSIS PATIENTS. CBC (HEMOGRAM ONLY)2018-12-18 04:28:00 Test Item Value Reference Range Comments WHITE BLOOD CELL COUNT (BEAKER) (test prrt=977) 17.0 K/ L 3.5-10.5 RED BLOOD CELL COUNT (BEAKER) (test cmlj=669) 3.89 M/ L 4.63-6.08 HEMOGLOBIN (BEAKER) (test guyo=056) 10.2 GM/DL 13.7-17.5 HEMATOCRIT (BEAKER) (test gmjm=695) 32.9 % 40.1-51.0 MEAN CORPUSCULAR VOLUME (BEAKER) (test iitp=421) 84.6 fL 79.0-92.2 MEAN CORPUSCULAR HEMOGLOBIN (BEAKER) (test 26.2 pg 25.7-32.2 ejxb=115) MEAN CORPUSCULAR HEMOGLOBIN CONC (BEAKER) (test 31.0 GM/DL 32.3-36.5 imgo=675) RED CELL DISTRIBUTION WIDTH (BEAKER) (test 14.8 % 11.6-14.4 boyt=565) PLATELET COUNT (BEAKER) (test gpxy=545) 143 K/CU MM 150-450 MEAN PLATELET VOLUME (BEAKER) (test acwa=383) 12.2 fL 9.4-12.4 NUCLEATED RED BLOOD CELLS (BEAKER) (test 0 /100 WBC 0-0 jtqc=253) BLOOD GAS, [id number] 03:26:00 Test Item Value Reference Range Comments PH ARTERIAL (BEAKER) (test zpzx=100) 7.45 7.35-7.45 PCO2 ARTERIAL (BEAKER) (test bfwi=641) 37 mmHg 35-45 PO2 ARTERIAL (BEAKER) (test udea=029) 100 mmHg 80-90 O2 SATURATION ARTERIAL (BEAKER) (test hlnj=310) 97.9 % 96.0-97.0 HCO3 ARTERIAL (BEAKER) (test euxr=159) 25 mmol/L 21-29 BASE EXCESS ARTERIAL (BEAKER) (test chkr=834) 1.3 mmol/L -2.0-3.0 PATIENT TEMPERATURE (BEAKER) (test skbn=7487) 36.8 C FIO2 (BEAKER) (test soxq=8448) 40.0 % CALCIUM, [id number] 03:26:00 Test Item Value Reference Range Comments CALCIUM IONIZED (BEAKER) (test rjsc=736) 1.13 mmol/L 1.12-1.27 PH, BLOOD (BEAKER) (test mqxz=1180) 7.45 POCT-GLUCOSE [id number] 21:30:00 Test Item Value Reference Range Comments POC-GLUCOSE METER (BEAKER) 129 mg/dL 70-110 TESTED AT [address] (test tggw=1882) [facility] [id number] POCT-GLUCOSE [id number] 18:18:00 Test Item Value Reference Range Comments POC-GLUCOSE METER (BEAKER) 165 mg/dL 70-110 TESTED AT [address] (test rqvb=8823) [facility] [id number] BLOOD GAS, [id number] 18:09:00 Test Item Value Reference Range Comments PH ARTERIAL (BEAKER) (test binb=555) 7.47 7.35-7.45 PCO2 ARTERIAL (BEAKER) (test coyd=336) 34 mmHg 35-45 PO2 ARTERIAL (BEAKER) (test verh=375) 79 mmHg 80-90 O2 SATURATION ARTERIAL (BEAKER) (test zxhk=484) 96.4 % 96.0-97.0 HCO3 ARTERIAL (BEAKER) (test hbwd=115) 24 mmol/L 21-29 BASE EXCESS ARTERIAL (BEAKER) (test teeh=448) 1.0 mmol/L -2.0-3.0 PATIENT TEMPERATURE (BEAKER) (test fdpt=0943) 37.0 C FIO2 (BEAKER) (test vqib=2411) 40.0 % POCT-GLUCOSE [id number] 14:03:00 Test Item Value Reference Range Comments POC-GLUCOSE METER (BEAKER) 212 mg/dL 70-110 TESTED AT [address] (test eatg=2971) [facility] [address] RAD, CHEST, 1 VIEW, NON [id number] 07:48:00Reason for exam:->intubated, post opShould this be performed at the bedside?->YesFINAL REPORT Chest x-ray Clinical History: intubated, post op Comparison: December Views: Two AP lordotic Chest x-ray:The cardiac and mediastinal silhouettes are within normal limits. There is no evidence of a pneumothorax. There is evidence of a small left pleural effusion. The patient's right internal jugular [place] catheter has been removed. There remains a right internal jugular sheath. The patient has been extubated with interval removal of a nasogastric tube. Sternotomy changes are present with multiple chest tubes. There are increased interstitial findings. Subsegmental atelectasis in left lower lobe retrocardiac space is suspected. Increased interstitial pulmonary edema is favored. Signed: Esther Pacheco Verified Date/Time: 07:48:21 Reading Location: [facility] Radiology Reading Room CALCIUM, [id number] 04:51:00 Test Item Value Reference Range Comments CALCIUM IONIZED (BEAKER) (test biwd=242) 1.13 mmol/L 1.12-1.27 PH, BLOOD (BEAKER) (test tpra=1706) 7.48 [id number] 03:42:00 Test Item Value Reference Range Comments PHOSPHORUS (BEAKER) (test xiqe=911) 2.2 mg/dL 2.3-4.7 [id number] 03:42:00 Test Item Value Reference Range Comments MAGNESIUM (BEAKER) (test lfpv=363) 2.4 mg/dL 1.6-2.6 BASIC METABOLIC [id number] 03:42:00 Test Item Value Reference Range Comments SODIUM (BEAKER) (test 137 meq/L 136-145 wzqs=847) POTASSIUM (BEAKER) (test 4.5 meq/L 3.5-5.1 rdst=979) CHLORIDE (BEAKER) (test 107 meq/L 98-107 jawc=895) CO2 (BEAKER) (test 25 meq/L 22-29 muqk=497) BLOOD UREA NITROGEN 20 mg/dL 7-21 (BEAKER) (test iokc=800) CREATININE (BEAKER) (test 0.81 mg/dL 0.57-1.25 gnpo=888) GLUCOSE RANDOM (BEAKER) 159 mg/dL 70-105 (test gdgs=687) CALCIUM (BEAKER) (test 8.3 mg/dL 8.4-10.2 xsit=298) EGFR (BEAKER) (test 94 mL/min/1.73 sq m ESTIMATED GFR IS NOT ichm=5129) ACCURATE CREATININE CLEARANCE IN PREDICTING GLOMERULAR FILTRATION RATE. ESTIMATED GFR IS NOT APPLICABLE FOR DIALYSIS PATIENTS. BLOOD GAS, [id number] 03:41:00 Test Item Value Reference Range Comments PH ARTERIAL (BEAKER) (test qkmz=617) 7.46 7.35-7.45 PCO2 ARTERIAL (BEAKER) (test ghth=755) 38 mmHg 35-45 PO2 ARTERIAL (BEAKER) (test gbjj=069) 112 mmHg 80-90 O2 SATURATION ARTERIAL (BEAKER) (test kkym=154) 98.2 % 96.0-97.0 HCO3 ARTERIAL (BEAKER) (test bfgx=655) 26 mmol/L 21-29 BASE EXCESS ARTERIAL (BEAKER) (test ozcm=049) 2.7 mmol/L -2.0-3.0 PATIENT TEMPERATURE (BEAKER) (test vpvt=6812) 37.9 C FIO2 (BEAKER) (test moie=9603) 40.0 % OXYGEN SATURATION, [id number] 03:37:00 Test Item Value Reference Range Comments O2 SATURATION (MEASURED) (BEAKER) (test uyvo=6003) 58.0 % CBC (HEMOGRAM ONLY)2018-12-17 03:18:00 Test Item Value Reference Range Comments WHITE BLOOD CELL COUNT (BEAKER) (test bnto=878) 18.4 K/ L 3.5-10.5 RED BLOOD CELL COUNT (BEAKER) (test uaqt=980) 4.11 M/ L 4.63-6.08 HEMOGLOBIN (BEAKER) (test xwim=967) 10.8 GM/DL 13.7-17.5 HEMATOCRIT (BEAKER) (test umuh=423) 34.4 % 40.1-51.0 MEAN CORPUSCULAR VOLUME (BEAKER) (test jrld=177) 83.7 fL 79.0-92.2 MEAN CORPUSCULAR HEMOGLOBIN (BEAKER) (test 26.3 pg 25.7-32.2 cscd=379) MEAN CORPUSCULAR HEMOGLOBIN CONC (BEAKER) (test 31.4 GM/DL 32.3-36.5 lbym=548) RED CELL DISTRIBUTION WIDTH (BEAKER) (test 14.6 % 11.6-14.4 jiiz=660) PLATELET COUNT (BEAKER) (test hcfd=784) 141 K/CU MM 150-450 MEAN PLATELET VOLUME (BEAKER) (test mddz=862) 11.6 fL 9.4-12.4 NUCLEATED RED BLOOD CELLS (BEAKER) (test 0 /100 WBC 0-0 vluz=690) [id number] 22:06:00 Test Item Value Reference Range Comments MAGNESIUM (BEAKER) (test ghfa=955) 2.0 mg/dL 1.6-2.6 BLOOD GAS, [id number] 21:50:00 Test Item Value Reference Range Comments PH ARTERIAL (BEAKER) (test nlos=314) 7.54 7.35-7.45 PCO2 ARTERIAL (BEAKER) (test ptfq=832) 28 mmHg 35-45 PO2 ARTERIAL (BEAKER) (test maiz=967) 50 mmHg 80-90 O2 SATURATION ARTERIAL (BEAKER) (test eyrw=054) 94.9 % 96.0-97.0 HCO3 ARTERIAL (BEAKER) (test qygx=010) 25 mmol/L 21-29 BASE EXCESS ARTERIAL (BEAKER) (test tsyn=536) 1.5 mmol/L -2.0-3.0 PATIENT TEMPERATURE (BEAKER) (test epjs=0748) 32.1 C FIO2 (BEAKER) (test pmhw=2123) 100.0 % GLUCOSE-STAT [id number] 21:50:00 Test Item Value Reference Range Comments GLUCOSE RANDOM (BEAKER) (test sarz=502) 220 mg/dL 70-110 HGB/HCT (H&H) - STAT [id number] 21:50:00 Test Item Value Reference Range Comments HEMOGLOBIN (BEAKER) (test hndq=815) 11.4 g/dL 13.0-16.8 HEMATOCRIT (BEAKER) (test pycq=888) 34.0 % 40.0-50.0 OXYGEN SATURATION, [id number] 21:50:00 Test Item Value Reference Range Comments O2 SATURATION (MEASURED) (BEAKER) (test jwxc=4525) 58.1 % SODIUM NA-STAT [id number] 21:49:00 Test Item Value Reference Range Comments SODIUM (BEAKER) (test qlcz=851) 135 meq/L 135-148 POTASSIUM-STAT [id number] 21:49:00 Test Item Value Reference Range Comments POTASSIUM (BEAKER) (test ggnm=367) 4.2 meq/L 3.6-5.5 CALCIUM, [id number] 21:49:00 Test Item Value Reference Range Comments CALCIUM IONIZED (BEAKER) (test adbs=541) 1.12 mmol/L 1.12-1.27 PH, BLOOD (BEAKER) (test kdou=0694) 7.47 POCT-GLUCOSE [id number] 18:28:00 Test Item Value Reference Range Comments POC-GLUCOSE METER (BEAKER) 138 mg/dL 70-[address] [facility] [address] (test zovp=9961) [facility] [address] POCT-GLUCOSE [id number] 12:28:00 Test Item Value Reference Range Comments POC-GLUCOSE METER (BEAKER) 111 mg/dL 70-110 TESTED AT [address] (test cego=3402) [facility] [address] OXYGEN SATURATION, [id number] 09:45:00 Test Item Value Reference Range Comments O2 SATURATION (MEASURED) (BEAKER) (test ligh=1012) 64.3 % POCT-GLUCOSE [id number] 09:33:00 Test Item Value Reference Range Comments POC-GLUCOSE METER (BEAKER) 102 mg/dL 70-110 TESTED AT [address] (test aksy=4265) [facility] [address] POCT-GLUCOSE [id number] 08:51:00 Test Item Value Reference Range Comments POC-GLUCOSE METER (BEAKER) 98 mg/dL 70-110 TESTED AT [address] (test bufs=3435) [facility] [address] POCT-GLUCOSE [id number] 08:51:00 Test Item Value Reference Range Comments POC-GLUCOSE METER (BEAKER) 121 mg/dL 70-110 TESTED AT [address] (test xgzj=7222) [facility] [address] LACTIC ACID, [id number] 07:52:00 Test Item Value Reference Range Comments LACTATE BLOOD ARTERIAL (2) 0.9 mmol/L 0.5-2.2 Specimen slightly hemolyzed (BEAKER) (test zaap=6572) OXYGEN SATURATION, [id number] 07:18:00 Test Item Value Reference Range Comments O2 SATURATION (MEASURED) (BEAKER) (test xkjb=2268) 96.4 % RAD, CHEST, 1 VIEW, NON [id number] 06:10:00Reason for exam:->intubated, post opShould this be [...] Signed: Jaime Rojas Verified Date/Time: 12/16/2018 06:10:03 [id number] 04:05:00 Test Item Value Reference Range Comments PHOSPHORUS (BEAKER) (test emnq=364) 3.2 mg/dL 2.3-4.7 [id number] 04:05:00 Test Item Value Reference Range Comments MAGNESIUM (BEAKER) (test ljpr=871) 2.3 mg/dL 1.6-2.6 BASIC METABOLIC [id number] 04:05:00 Test Item Value Reference Range Comments SODIUM (BEAKER) (test 138 meq/L 136-145 iejz=599) POTASSIUM (BEAKER) (test 3.8 meq/L 3.5-5.1 pmvd=412) CHLORIDE (BEAKER) (test 104 meq/L 98-107 vpcz=916) CO2 (BEAKER) (test 28 meq/L 22-29 zzrl=269) BLOOD UREA NITROGEN 27 mg/dL 7-21 (BEAKER) (test ubrs=559) CREATININE (BEAKER) (test 0.93 mg/dL 0.57-1.25 xbxa=898) GLUCOSE RANDOM (BEAKER) 103 mg/dL 70-105 (test grbx=186) CALCIUM (BEAKER) (test 8.1 mg/dL 8.4-10.2 wgvl=533) EGFR (BEAKER) (test 80 mL/min/1.73 sq m ESTIMATED GFR IS NOT tesd=8924) ACCURATE CREATININE CLEARANCE IN PREDICTING GLOMERULAR FILTRATION RATE. ESTIMATED GFR IS NOT APPLICABLE FOR DIALYSIS PATIENTS. LACTIC ACID, [id number] 04:00:00 Test Item Value Reference Range Comments LACTATE BLOOD ARTERIAL (2) (BEAKER) (test 0.9 mmol/L 0.5-2.2 pcll=4253) BLOOD GAS, [id number] 03:48:00 Test Item Value Reference Range Comments PH ARTERIAL (BEAKER) (test nkch=307) 7.43 7.35-7.45 PCO2 ARTERIAL (BEAKER) (test pubq=402) 43 mmHg 35-45 PO2 ARTERIAL (BEAKER) (test glgn=387) 113 mmHg 80-90 O2 SATURATION ARTERIAL (BEAKER) (test awua=958) 98.3 % 96.0-97.0 HCO3 ARTERIAL (BEAKER) (test eyif=971) 29 mmol/L 21-29 BASE EXCESS ARTERIAL (BEAKER) (test chcl=317) 3.6 mmol/L -2.0-3.0 PATIENT TEMPERATURE (BEAKER) (test xqdn=0104) 36.4 C FIO2 (BEAKER) (test egnu=3695) 40.0 % OXYGEN SATURATION, [id number] 03:45:00 Test Item Value Reference Range Comments O2 SATURATION (MEASURED) (BEAKER) (test udjd=7932) 64.9 % CBC (HEMOGRAM ONLY)2018-12-16 03:38:00 Test Item Value Reference Range Comments WHITE BLOOD CELL COUNT (BEAKER) (test ndgg=501) 16.8 K/ L 3.5-10.5 RED BLOOD CELL COUNT (BEAKER) (test stim=433) 4.05 M/ L 4.63-6.08 HEMOGLOBIN (BEAKER) (test zmkp=708) 10.6 GM/DL 13.7-17.5 HEMATOCRIT (BEAKER) (test hmzy=899) 33.6 % 40.1-51.0 MEAN CORPUSCULAR VOLUME (BEAKER) (test jsrk=882) 83.0 fL 79.0-92.2 MEAN CORPUSCULAR HEMOGLOBIN (BEAKER) (test 26.2 pg 25.7-32.2 xzfn=631) MEAN CORPUSCULAR HEMOGLOBIN CONC (BEAKER) (test 31.5 GM/DL 32.3-36.5 ivdj=633) RED CELL DISTRIBUTION WIDTH (BEAKER) (test 14.0 % 11.6-14.4 eenz=247) PLATELET COUNT (BEAKER) (test uxlc=173) 160 K/CU MM 150-450 MEAN PLATELET VOLUME (BEAKER) (test ypjy=112) 11.0 fL 9.4-12.4 NUCLEATED RED BLOOD CELLS (BEAKER) (test 0 /100 WBC 0-0 qgtr=260) [id number] 23:46:00 Test Item Value Reference Range Comments MAGNESIUM (BEAKER) (test 2.7 mg/dL 1.6-2.6 Specimen slightly hemolyzed adrf=708) [id number] 23:46:00 Test Item Value Reference Range Comments POTASSIUM (BEAKER) (test 4.4 meq/L 3.5-5.1 Specimen slightly hemolyzed vcbh=346) [id number] 23:46:00 Test Item Value Reference Range Comments GLUCOSE RANDOM (BEAKER) (test wujn=051) 131 mg/dL 70-105 BASIC METABOLIC [id number] 23:46:00 Test Item Value Reference Range Comments SODIUM (BEAKER) (test 137 meq/L 136-145 lsve=419) POTASSIUM (BEAKER) (test 4.4 meq/L 3.5-5.1 Specimen slightly bgkd=810) hemolyzed CHLORIDE (BEAKER) (test 103 meq/L 98-107 dprx=170) CO2 (BEAKER) (test 27 meq/L 22-29 ptpw=244) BLOOD UREA NITROGEN 29 mg/dL 7-21 (BEAKER) (test wtjo=291) CREATININE (BEAKER) (test 1.05 mg/dL 0.57-1.25 Specimen slightly mmtz=898) hemolyzed GLUCOSE RANDOM (BEAKER) 131 mg/dL 70-105 (test cskv=935) CALCIUM (BEAKER) (test 8.2 mg/dL 8.4-10.2 ykmn=097) EGFR (BEAKER) (test 69 mL/min/1.73 sq m ESTIMATED GFR IS NOT vjek=5977) ACCURATE CREATININE CLEARANCE IN PREDICTING GLOMERULAR FILTRATION RATE. ESTIMATED GFR IS NOT APPLICABLE FOR DIALYSIS PATIENTS. LACTIC ACID, [id number] 23:41:00 Test Item Value Reference Range Comments LACTATE BLOOD ARTERIAL (2) 0.9 mmol/L 0.5-2.2 Specimen slightly hemolyzed (BEAKER) (test njiq=3196) CBC W/PLT COUNT & AUTO [id number] 23:30:00 Test Item Value Reference Range Comments WHITE BLOOD CELL COUNT (BEAKER) (test vivd=760) 26.0 K/ L 3.5-10.5 RED BLOOD CELL COUNT (BEAKER) (test xxsv=231) 4.36 M/ L 4.63-6.08 HEMOGLOBIN (BEAKER) (test omxl=147) 11.5 GM/DL 13.7-17.5 HEMATOCRIT (BEAKER) (test ogat=390) 36.1 % 40.1-51.0 MEAN CORPUSCULAR VOLUME (BEAKER) (test yoku=401) 82.8 fL 79.0-92.2 MEAN CORPUSCULAR HEMOGLOBIN (BEAKER) (test 26.4 pg 25.7-32.2 tzru=928) MEAN CORPUSCULAR HEMOGLOBIN CONC (BEAKER) (test 31.9 GM/DL 32.3-36.5 dchk=439) RED CELL DISTRIBUTION WIDTH (BEAKER) (test 14.0 % 11.6-14.4 sjri=088) PLATELET COUNT (BEAKER) (test cbkt=019) 250 K/CU MM 150-450 MEAN PLATELET VOLUME (BEAKER) (test ffmh=683) 11.0 fL 9.4-12.4 NUCLEATED RED BLOOD CELLS (BEAKER) (test 0 /100 WBC 0-0 mcng=470) NEUTROPHILS RELATIVE PERCENT (BEAKER) (test 89 % fznd=190) LYMPHOCYTES RELATIVE PERCENT (BEAKER) (test 3 % uvxz=754) MONOCYTES RELATIVE PERCENT (BEAKER) (test 7 % xzny=591) EOSINOPHILS RELATIVE PERCENT (BEAKER) (test 0 % iors=116) BASOPHILS RELATIVE PERCENT (BEAKER) (test 0 % pspf=282) NEUTROPHILS ABSOLUTE COUNT (BEAKER) (test 23.10 K/ L 1.78-5.38 idze=648) LYMPHOCYTES ABSOLUTE COUNT (BEAKER) (test 0.73 K/ L 1.32-3.57 ecli=299) MONOCYTES ABSOLUTE COUNT (BEAKER) (test 1.83 K/ L 0.30-0.82 qcff=415) EOSINOPHILS ABSOLUTE COUNT (BEAKER) (test 0.00 K/ L 0.04-0.54 scyk=294) BASOPHILS ABSOLUTE COUNT (BEAKER) (test 0.06 K/ L 0.01-0.08 cvgc=531) IMMATURE GRANULOCYTES-RELATIVE PERCENT (BEAKER) 1 % 0-1 (test jjrx=7244) BLOOD GAS, [id number] 23:23:00 Test Item Value Reference Range Comments PH ARTERIAL (BEAKER) (test xkch=785) 7.43 7.35-7.45 PCO2 ARTERIAL (BEAKER) (test hdev=328) 44 mmHg 35-45 PO2 ARTERIAL (BEAKER) (test zfqp=134) 93 mmHg 80-90 O2 SATURATION ARTERIAL (BEAKER) (test pseg=649) 97.5 % 96.0-97.0 HCO3 ARTERIAL (BEAKER) (test vxry=075) 29 mmol/L 21-29 BASE EXCESS ARTERIAL (BEAKER) (test wqbn=556) 3.7 mmol/L -2.0-3.0 PATIENT TEMPERATURE (BEAKER) (test pfor=0573) 36.1 C FIO2 (BEAKER) (test atoo=6903) 40.0 % GLUCOSE-STAT [id number] 23:23:00 Test Item Value Reference Range Comments GLUCOSE RANDOM (BEAKER) (test ltyz=891) 135 mg/dL 70-110 HGB/HCT (H&H) - STAT [id number] 23:23:00 Test Item Value Reference Range Comments HEMOGLOBIN (BEAKER) (test jgyk=369) 11.7 g/dL 13.0-16.8 HEMATOCRIT (BEAKER) (test tryt=090) 34.0 % 40.0-50.0 SODIUM NA-STAT [id number] 23:22:00 Test Item Value Reference Range Comments SODIUM (BEAKER) (test nphl=634) 137 meq/L 135-148 POTASSIUM-STAT [id number] 23:22:00 Test Item Value Reference Range Comments POTASSIUM (BEAKER) (test nefy=462) 4.0 meq/L 3.6-5.5 CALCIUM, [id number] 23:22:00 Test Item Value Reference Range Comments CALCIUM IONIZED (BEAKER) (test wcgo=252) 1.14 mmol/L 1.12-1.27 PH, BLOOD (BEAKER) (test dowl=4410) 7.42 OXYGEN SATURATION, [id number] 23:21:00 Test Item Value Reference Range Comments O2 SATURATION (MEASURED) (BEAKER) (test kguu=7563) 73.1 % POCT-GLUCOSE [id number] 23:14:00 Test Item Value Reference Range Comments POC-GLUCOSE METER (BEAKER) 139 mg/dL 70-110 TESTED AT [address] (test cxnn=6666) [place] [address] POCT-GLUCOSE [id number] 18:37:00 Test Item Value Reference Range Comments POC-GLUCOSE METER (BEAKER) 137 mg/dL 70-110 TESTED AT [address] (test nxin=8578) [place] [address] SPUTUM CULTURE + GRAM [id number] 17:48:00 Test Item Value Reference Range Comments CULTURE (BEAKER) 4+ Burkholderia gladioli (test kkqn=9696) GRAM STAIN RESULT 1+ WBCs (BEAKER) (test mhme=6068) GRAM STAIN RESULT 0-5 epithelial cells (BEAKER) (test hjce=291476) GRAM STAIN RESULT 2+ gram positive cocci (BEAKER) (test in chains and pairs qzyk=845044) GRAM STAIN RESULT 1+ gram positive cocci (BEAKER) (test in clusters ktwq=605533) 4+ Normal respiratory deandra presentPOCT-GLUCOSE [id number] 17:06:00 Test Item Value Reference Range Comments POC-GLUCOSE METER (BEAKER) 129 mg/dL 70-110 TESTED AT [address] (test snlr=8791) [place] [id number] POCT-GLUCOSE [id number] 15:21:00 Test Item Value Reference Range Comments POC-GLUCOSE METER (BEAKER) 152 mg/dL 70-110 TESTED AT [address] (test znln=1417) [place] [id number] BASIC METABOLIC [id number] 14:59:00 Test Item Value Reference Range Comments SODIUM (BEAKER) (test 137 meq/L 136-145 vyts=212) POTASSIUM (BEAKER) (test 4.2 meq/L 3.5-5.1 eiol=992) CHLORIDE (BEAKER) (test 102 meq/L 98-107 ceeb=270) CO2 (BEAKER) (test 28 meq/L 22-29 ehwd=842) BLOOD UREA NITROGEN 31 mg/dL 7-21 (BEAKER) (test shuy=375) CREATININE (BEAKER) (test 1.08 mg/dL 0.57-1.25 wgzu=174) GLUCOSE RANDOM (BEAKER) 183 mg/dL 70-105 (test vjre=713) CALCIUM (BEAKER) (test 7.9 mg/dL 8.4-10.2 bona=256) EGFR (BEAKER) (test 67 mL/min/1.73 sq m ESTIMATED GFR IS NOT nfui=0583) ACCURATE CREATININE CLEARANCE IN PREDICTING GLOMERULAR FILTRATION RATE. ESTIMATED GFR IS NOT APPLICABLE FOR DIALYSIS PATIENTS. CBC W/PLT COUNT & AUTO [id number] 14:49:00 Test Item Value Reference Range Comments WHITE BLOOD CELL COUNT (BEAKER) (test vkwg=608) 22.5 K/ L 3.5-10.5 RED BLOOD CELL COUNT (BEAKER) (test vedz=065) 4.32 M/ L 4.63-6.08 HEMOGLOBIN (BEAKER) (test ibiy=826) 11.4 GM/DL 13.7-17.5 HEMATOCRIT (BEAKER) (test ordb=046) 36.0 % 40.1-51.0 MEAN CORPUSCULAR VOLUME (BEAKER) (test zdoo=978) 83.3 fL 79.0-92.2 MEAN CORPUSCULAR HEMOGLOBIN (BEAKER) (test 26.4 pg 25.7-32.2 lnqq=674) MEAN CORPUSCULAR HEMOGLOBIN CONC (BEAKER) (test 31.7 GM/DL 32.3-36.5 vntk=901) RED CELL DISTRIBUTION WIDTH (BEAKER) (test 13.8 % 11.6-14.4 dsuz=210) PLATELET COUNT (BEAKER) (test lnqn=281) 182 K/CU MM 150-450 MEAN PLATELET VOLUME (BEAKER) (test fasm=890) 11.0 fL 9.4-12.4 NUCLEATED RED BLOOD CELLS (BEAKER) (test 0 /100 WBC 0-0 fmrm=960) (CELLAVISION MANUAL DIFF)2018-12-15 14:49:00 Test Item Value Reference Range Comments NEUTROPHILS - REL (CELLAVISION)(BEAKER) (test 93 % pnmz=3568) LYMPHOCYTES - REL (CELLAVISION)(BEAKER) (test 2 % eqsm=8991) MONOCYTES - REL (CELLAVISION)(BEAKER) (test 2 % xqva=6587) MYELOCYTES - REL (CELLAVISION)(BEAKER) (test 1 % 0-0 ulzf=4295) BANDS - REL (CELLAVISION)(BEAKER) (test 2 % 0-10 kwvg=7463) NEUTROPHILS - ABS (CELLAVISION)(BEAKER) (test 20.93 K/ul 1.78-5.38 baqd=9661) LYMPHOCYTES - ABS (CELLAVISION)(BEAKER) (test 0.45 K/ul 1.32-3.57 keaw=6778) MONOCYTES - ABS (CELLAVISION)(BEAKER) (test 0.45 K/uL 0.30-0.82 tzhs=0286) MYELOCYTES-ABS (CELLAVISION)(BEAKER) (test 0.23 K/uL 0.00-0.00 dhvu=9544) BANDS - ABS (CELLAVISION)(BEAKER) (test 0.45 K/uL 0.00-0.80 ejyn=9736) TOTAL COUNTED (BEAKER) (test vbpo=0700) 100 WBC MORPHOLOGY (BEAKER) (test vpax=663) Normal PLT MORPHOLOGY (BEAKER) (test umer=988) Normal ANISOCYTOSIS (BEAKER) (test idrc=951) 2+ moderate MICROCYTES (BEAKER) (test fkhr=959) 2+ moderate POIKILOCYTES (BEAKER) (test vqya=463) 1+ few ELLIPTOCYTES (BEAKER) (test itoq=047) 1+ few ARTIFACT (CELLAVISION)(BEAKER) (test moaz=2451) Present PLATELET CONCENTRATION (CELLAVISION)(BEAKER) Adequate (test eecy=3382) Received comment: User comments: Slide comments:RAD, CHEST, 1 VIEW, NON [id number] 14:44:00Reason for exam:->post opShould this be performed [...] MDReport Verified Date/Time: 12/15/2018 14:44:04 Reading Location: [facility] Mammo Reading Room LACTIC ACID, [id number] 14:41:00 Test Item Value Reference Range Comments LACTATE BLOOD ARTERIAL (2) (BEAKER) (test 1.2 mmol/L 0.5-2.2 tbcm=6899) [id number] 14:39:00 Test Item Value Reference Range Comments MAGNESIUM (BEAKER) (test ptdr=561) 1.9 mg/dL 1.6-2.6 OXYGEN SATURATION, [id number] 14:20:00 Test Item Value Reference Range Comments O2 SATURATION (MEASURED) (BEAKER) (test oooy=9427) 62.8 % SODIUM NA-STAT [id number] 14:17:00 Test Item Value Reference Range Comments SODIUM (BEAKER) (test yhhx=160) 136 meq/L 135-148 POTASSIUM-STAT [id number] 14:17:00 Test Item Value Reference Range Comments POTASSIUM (BEAKER) (test owhn=743) 4.0 meq/L 3.6-5.5 BLOOD GAS, [id number] 14:17:00 Test Item Value Reference Range Comments PH ARTERIAL (BEAKER) (test szeo=721) 7.38 7.35-7.45 PCO2 ARTERIAL (BEAKER) (test wwju=389) 45 mmHg 35-45 PO2 ARTERIAL (BEAKER) (test pbkh=700) 128 mmHg 80-90 O2 SATURATION ARTERIAL (BEAKER) (test ytyg=597) 98.6 % 96.0-97.0 HCO3 ARTERIAL (BEAKER) (test qpgs=192) 27 mmol/L 21-29 BASE EXCESS ARTERIAL (BEAKER) (test ixli=781) 0.6 mmol/L -2.0-3.0 PATIENT TEMPERATURE (BEAKER) (test lfzp=0076) 35.7 C FIO2 (BEAKER) (test tcuu=0234) 50.0 % GLUCOSE-STAT [id number] 14:17:00 Test Item Value Reference Range Comments GLUCOSE RANDOM (BEAKER) (test epkc=557) 181 mg/dL 70-110 HGB/HCT (H&H) - STAT [id number] 14:17:00 Test Item Value Reference Range Comments HEMOGLOBIN (BEAKER) (test prsd=899) 11.5 g/dL 13.0-16.8 HEMATOCRIT (BEAKER) (test qpnr=342) 34.0 % 40.0-50.0 [id number] 13:03:00 Test Item Value Reference Range Comments ACTIVATED CLOTTING TIME [address] [facility] [address] [place] [address] (BEAKER) (test dhik=114) [place] [address] [id number] 13:02:00 Test Item Value Reference Range Comments ACTIVATED CLOTTING TIME 472 sec TESTED AT [address] ([facility]) (test fhoi=867) [place] [address] [id number] 13:02:00 Test Item Value Reference Range Comments ACTIVATED CLOTTING TIME 378 sec TESTED AT [address] ([facility]) (test igse=714) [place] [address] [id number] 13:02:00 Test Item Value Reference Range Comments ACTIVATED CLOTTING TIME 428 sec TESTED AT [address] ([facility]) (test usmy=956) [place] [address] [id number] 13:02:00 Test Item Value Reference Range Comments ACTIVATED CLOTTING TIME 483 sec TESTED AT [address] ([facility]) (test nrqv=029) [place] [address] [id number] 12:13:00 Test Item Value Reference Range Comments FIBRINOGEN LEVEL ([facility]) (test sqbx=935) 354 mg/dl 225-434 [id number] 12:13:00 Test Item Value Reference Range Comments PARTIAL THROMBOPLASTIN TIME ([facility]) (test 46.7 seconds 22.5-36.0 mods=073) PROTHROMBIN [id number] 12:12:00 Test Item Value Reference Range Comments PROTIME ([facility]) (test kkgs=032) 17.7 seconds 11.9-14.2 INR ([facility]) (test rtij=398) 1.5 <=5.9 Effective 12/03/2018: PT Reference Range ChangeNew: 11.9-14.2 Previous: 11.7- 14.7RECOMMENDED COUMADIN/WARFARIN INR THERAPY RANGESSTANDARD DOSE: 2.0-3.0 Includes: PROPHYLAXIS for venous thrombosis, systemic embolization; TREATMENT for venous thrombosis and/or pulmonary embolus.HIGH RISK: Target INR is2.5-3.5 for patients wiht mechanical heart valves.PLATELET [id number] 12:05:00 Test Item Value Reference Range Comments PLATELET COUNT ([facility]) (test lxij=942) 206 K/CU MM 150-450 POTASSIUM-STAT [id number] 11:59:00 Test Item Value Reference Range Comments POTASSIUM (BEAKER) (test laqt=778) 4.6 meq/L 3.6-5.5 CALCIUM, [id number] 11:59:00 Test Item Value Reference Range Comments CALCIUM IONIZED (BEAKER) (test zksp=075) 1.14 mmol/L 1.12-1.27 PH, BLOOD (BEAKER) (test sppj=4661) 7.39 BLOOD GAS, [id number] 11:59:00 Test Item Value Reference Range Comments PH ARTERIAL (BEAKER) (test glnf=073) 7.40 7.35-7.45 PCO2 ARTERIAL (BEAKER) (test bhfp=019) 48 mmHg 35-45 PO2 ARTERIAL (BEAKER) (test yzcl=193) 360 mmHg 80-90 O2 SATURATION ARTERIAL (BEAKER) (test arsz=672) 99.8 % 96.0-97.0 HCO3 ARTERIAL (BEAKER) (test iouj=519) 29 mmol/L 21-29 BASE EXCESS ARTERIAL (BEAKER) (test cmus=771) 3.4 mmol/L -2.0-3.0 PATIENT TEMPERATURE (BEAKER) (test dduu=0815) 36.0 C FIO2 (BEAKER) (test hihi=9561) 100.0 % SODIUM NA-STAT [id number] 11:59:00 Test Item Value Reference Range Comments SODIUM (BEAKER) (test mfit=294) 133 meq/L 135-148 GLUCOSE-STAT [id number] 11:59:00 Test Item Value Reference Range Comments GLUCOSE RANDOM (BEAKER) (test bmoc=190) 234 mg/dL 70-110 HGB/HCT (H&H) - STAT [id number] 11:59:00 Test Item Value Reference Range Comments HEMOGLOBIN (BEAKER) (test izef=103) 11.6 g/dL 13.0-16.8 HEMATOCRIT (BEAKER) (test lvli=852) 34.0 % 40.0-50.0 POCT-GLUCOSE [id number] 11:22:00 Test Item Value Reference Range Comments POC-GLUCOSE METER (BEAKER) 133 mg/dL 70-[address] [facility] [address] [facility] (test azzg=5546) [facility] [address] BLOOD GAS, [id number] 11:20:00 Test Item Value Reference Range Comments PH ARTERIAL (BEAKER) (test qpcj=290) 7.44 7.35-7.45 PCO2 ARTERIAL (BEAKER) (test gsqr=139) 46 mmHg 35-45 PO2 ARTERIAL (BEAKER) (test hosb=364) 185 mmHg 80-90 O2 SATURATION ARTERIAL (BEAKER) (test xwsr=948) 99.3 % 96.0-97.0 HCO3 ARTERIAL (BEAKER) (test dtaa=722) 31 mmol/L 21-29 BASE EXCESS ARTERIAL (BEAKER) (test evzu=736) 5.7 mmol/L -2.0-3.0 PATIENT TEMPERATURE (BEAKER) (test ujzx=3479) 36.6 C FIO2 (BEAKER) (test mktl=3930) 75.0 % SODIUM NA-STAT [id number] 11:20:00 Test Item Value Reference Range Comments SODIUM (BEAKER) (test uiup=822) 132 meq/L 135-148 GLUCOSE-STAT [id number] 11:20:00 Test Item Value Reference Range Comments GLUCOSE RANDOM (BEAKER) (test nzgy=571) 205 mg/dL 70-110 HGB/HCT (H&H) - STAT [id number] 11:20:00 Test Item Value Reference Range Comments HEMOGLOBIN (BEAKER) (test rndz=020) 10.9 g/dL 13.0-16.8 HEMATOCRIT (BEAKER) (test fysf=964) 32.0 % 40.0-50.0 POTASSIUM-STAT [id number] 11:19:00 Test Item Value Reference Range Comments POTASSIUM (BEAKER) (test kvlz=166) 5.2 meq/L 3.6-5.5 BLOOD GAS, [id number] 11:00:00 Test Item Value Reference Range Comments PH ARTERIAL (BEAKER) (test hnvi=051) 7.44 7.35-7.45 PCO2 ARTERIAL (BEAKER) (test sunp=927) 44 mmHg 35-45 PO2 ARTERIAL (BEAKER) (test knvh=546) 248 mmHg 80-90 O2 SATURATION ARTERIAL (BEAKER) (test axru=655) 99.6 % 96.0-97.0 HCO3 ARTERIAL (BEAKER) (test wkym=900) 30 mmol/L 21-29 BASE EXCESS ARTERIAL (BEAKER) (test vihe=664) 5.0 mmol/L -2.0-3.0 PATIENT TEMPERATURE (BEAKER) (test oihy=1662) 36.6 C FIO2 (BEAKER) (test cgfb=0919) 70.0 % GLUCOSE-STAT [id number] 11:00:00 Test Item Value Reference Range Comments GLUCOSE RANDOM (BEAKER) (test iqie=133) 180 mg/dL 70-110 SODIUM NA-STAT [id number] 11:00:00 Test Item Value Reference Range Comments SODIUM (BEAKER) (test nrtp=812) 131 meq/L 135-148 HGB/HCT (H&H) - STAT [id number] 11:00:00 Test Item Value Reference Range Comments HEMOGLOBIN (BEAKER) (test nlgz=709) 9.4 g/dL 13.0-16.8 HEMATOCRIT (BEAKER) (test ngmp=136) 28.0 % 40.0-50.0 POTASSIUM-STAT [id number] 10:58:00 Test Item Value Reference Range Comments POTASSIUM (BEAKER) (test ncmu=874) 5.0 meq/L 3.6-5.5 BLOOD GAS, [id number] 10:32:00 Test Item Value Reference Range Comments PH ARTERIAL (BEAKER) (test zhtb=610) 7.37 7.35-7.45 PCO2 ARTERIAL (BEAKER) (test crni=161) 50 mmHg 35-45 PO2 ARTERIAL (BEAKER) (test orac=690) 433 mmHg 80-90 O2 SATURATION ARTERIAL (BEAKER) (test wpux=677) 99.8 % 96.0-97.0 HCO3 ARTERIAL (BEAKER) (test yruf=895) 29 mmol/L 21-29 BASE EXCESS ARTERIAL (BEAKER) (test bhdw=075) 2.6 mmol/L -2.0-3.0 PATIENT TEMPERATURE (BEAKER) (test tlfr=6261) 35.5 C FIO2 (BEAKER) (test fezh=8075) 85.0 % SODIUM NA-STAT [id number] 10:32:00 Test Item Value Reference Range Comments SODIUM (BEAKER) (test zlfb=481) 127 meq/L 135-148 GLUCOSE-STAT [id number] 10:32:00 Test Item Value Reference Range Comments GLUCOSE RANDOM (BEAKER) (test bjju=217) 132 mg/dL 70-110 HGB/HCT (H&H) - STAT [id number] 10:32:00 Test Item Value Reference Range Comments HEMOGLOBIN (BEAKER) (test nqai=616) 10.2 g/dL 13.0-16.8 HEMATOCRIT (BEAKER) (test tcfe=150) 30.0 % 40.0-50.0 POTASSIUM-STAT [id number] 10:31:00 Test Item Value Reference Range Comments POTASSIUM (BEAKER) (test oalk=862) 3.9 meq/L 3.6-5.5 CALCIUM, [id number] 08:54:00 Test Item Value Reference Range Comments CALCIUM IONIZED (BEAKER) (test cfpu=247) 1.11 mmol/L 1.12-1.27 PH, BLOOD (BEAKER) (test psmo=4273) 7.48 BLOOD GAS, [id number] 08:54:00 Test Item Value Reference Range Comments PH ARTERIAL (BEAKER) (test nnyg=747) 7.50 7.35-7.45 PCO2 ARTERIAL (BEAKER) (test yvuc=865) 38 mmHg 35-45 PO2 ARTERIAL (BEAKER) (test dfkm=800) 306 mmHg 80-90 O2 SATURATION ARTERIAL (BEAKER) (test amjm=046) 99.7 % 96.0-97.0 HCO3 ARTERIAL (BEAKER) (test izar=298) 29 mmol/L 21-29 BASE EXCESS ARTERIAL (BEAKER) (test ovcj=334) 5.1 mmol/L -2.0-3.0 PATIENT TEMPERATURE (BEAKER) (test kdlz=9587) 35.8 C FIO2 (BEAKER) (test kumt=3901) 100.0 % SODIUM NA-STAT [id number] 08:54:00 Test Item Value Reference Range Comments SODIUM (BEAKER) (test vawj=164) 134 meq/L 135-148 HGB/HCT (H&H) - STAT [id number] 08:54:00 Test Item Value Reference Range Comments HEMOGLOBIN (BEAKER) (test zhqm=020) 13.0 g/dL 13.0-16.8 HEMATOCRIT (BEAKER) (test cqxw=534) 38.0 % 40.0-50.0 GLUCOSE-STAT [id number] 08:53:00 Test Item Value Reference Range Comments GLUCOSE RANDOM (BEAKER) (test khns=342) 109 mg/dL 70-110 POTASSIUM-STAT [id number] 08:53:00 Test Item Value Reference Range Comments POTASSIUM (BEAKER) (test mesl=122) 4.0 meq/L 3.6-5.5 [id number] 02:19:00 Test Item Value Reference Range Comments PARTIAL THROMBOPLASTIN TIME (BEAKER) (test 40.0 seconds 22.5-36.0 prem=936) [id number] 01:46:00 Test Item Value Reference Range Comments PHOSPHORUS (BEAKER) (test mbtk=816) 4.5 mg/dL 2.3-4.7 [id number] 01:46:00 Test Item Value Reference Range Comments MAGNESIUM (BEAKER) (test ejar=609) 1.9 mg/dL 1.6-2.6 BASIC METABOLIC [id number] 01:46:00 Test Item Value Reference Range Comments SODIUM (BEAKER) (test 137 meq/L 136-145 hiwn=298) POTASSIUM (BEAKER) (test 3.8 meq/L 3.5-5.1 weby=153) CHLORIDE (BEAKER) (test 96 meq/L 98-107 jkuq=430) CO2 (BEAKER) (test 32 meq/L 22-29 bbjy=399) BLOOD UREA NITROGEN 40 mg/dL 7-21 (BEAKER) (test josz=288) CREATININE (BEAKER) (test 1.40 mg/dL 0.57-1.25 zvcy=733) GLUCOSE RANDOM (BEAKER) 120 mg/dL 70-105 (test bdza=331) CALCIUM (BEAKER) (test 9.1 mg/dL 8.4-10.2 ojoi=392) EGFR (BEAKER) (test 50 mL/min/1.73 sq m ESTIMATED GFR IS NOT uvir=1462) ACCURATE CREATININE CLEARANCE IN PREDICTING GLOMERULAR FILTRATION RATE. ESTIMATED GFR IS NOT APPLICABLE FOR DIALYSIS PATIENTS. CBC (HEMOGRAM ONLY)2018-12-15 01:20:00 Test Item Value Reference Range Comments WHITE BLOOD CELL COUNT (BEAKER) (test lqvd=884) 13.1 K/ L 3.5-10.5 RED BLOOD CELL COUNT (BEAKER) (test ccrb=839) 5.10 M/ L 4.63-6.08 HEMOGLOBIN (BEAKER) (test nsgi=686) 13.4 GM/DL 13.7-17.5 HEMATOCRIT (BEAKER) (test vort=953) 41.4 % 40.1-51.0 MEAN CORPUSCULAR VOLUME (BEAKER) (test tpmz=426) 81.2 fL 79.0-92.2 MEAN CORPUSCULAR HEMOGLOBIN (BEAKER) (test 26.3 pg 25.7-32.2 ztuk=448) MEAN CORPUSCULAR HEMOGLOBIN CONC (BEAKER) (test 32.4 GM/DL 32.3-36.5 qtwr=125) RED CELL DISTRIBUTION WIDTH (BEAKER) (test 13.7 % 11.6-14.4 klfi=836) PLATELET COUNT (BEAKER) (test ijak=144) 280 K/CU MM 150-450 MEAN PLATELET VOLUME (BEAKER) (test dozt=694) 10.5 fL 9.4-12.4 NUCLEATED RED BLOOD CELLS (BEAKER) (test 0 /100 WBC 0-0 ctwq=772) POCT-GLUCOSE [id number] 21:22:00 Test Item Value Reference Range Comments POC-GLUCOSE METER (BEAKER) 152 mg/dL 70-110 TESTED AT [address] (test pboz=0913) [place] [address] POCT-GLUCOSE [id number] 18:20:00 Test Item Value Reference Range Comments POC-GLUCOSE METER (BEAKER) 129 mg/dL 70-110 TESTED AT [address] (test smol=6874) [place] [address] BLOOD [id number] 14:01:00 Test Item Value Reference Range Comments CULTURE (BEAKER) (test lqfk=1715) No growth in 5 days BLOOD [id number] 14:01:00 Test Item Value Reference Range Comments CULTURE (BEAKER) (test ycrs=5251) No growth in 5 days RAD, CHEST, 1 VIEW, NON [id number] 13:18:00Reason for exam:->coughFINAL REPORT AP view of [...] MDReport Verified Date/Time: 12/14/2018 13:18:23 Reading Location: [facility] B1 C013Y CT Body Reading Room POCT-GLUCOSE [id number] 11:57:00 Test Item Value Reference Range Comments POC-GLUCOSE METER (BEAKER) 143 mg/dL 70-110 TESTED AT [address] (test bknp=7916) [facility] [address] POCT-GLUCOSE [id number] 08:42:00 Test Item Value Reference Range Comments POC-GLUCOSE METER (BEAKER) 114 mg/dL 70-110 TESTED AT [address] (test xegu=4895) [facility] [address] POCT-GLUCOSE [id number] 06:57:00 Test Item Value Reference Range Comments POC-GLUCOSE METER (BEAKER) 144 mg/dL 70-110 TESTED AT [address] (test hpuv=9942) [facility] [address] [id number] 06:49:00 Test Item Value Reference Range Comments PHOSPHORUS (BEAKER) (test oglr=635) 4.8 mg/dL 2.3-4.7 [id number] 06:49:00 Test Item Value Reference Range Comments MAGNESIUM (BEAKER) (test nxtn=670) 2.0 mg/dL 1.6-2.6 BASIC METABOLIC [id number] 06:49:00 Test Item Value Reference Range Comments SODIUM (BEAKER) (test 138 meq/L 136-145 yrgo=563) POTASSIUM (BEAKER) (test 4.0 meq/L 3.5-5.1 iisb=158) CHLORIDE (BEAKER) (test 96 meq/L 98-107 yffn=882) CO2 (BEAKER) (test 34 meq/L 22-29 sazu=033) BLOOD UREA NITROGEN 39 mg/dL 7-21 (BEAKER) (test rbao=574) CREATININE (BEAKER) (test 1.21 mg/dL 0.57-1.25 kfxx=579) GLUCOSE RANDOM (BEAKER) 116 mg/dL 70-105 (test aqdo=463) CALCIUM (BEAKER) (test 9.3 mg/dL 8.4-10.2 hvam=852) EGFR (BEAKER) (test 59 mL/min/1.73 sq m ESTIMATED GFR IS NOT wcan=3639) ACCURATE CREATININE CLEARANCE IN PREDICTING GLOMERULAR FILTRATION RATE. ESTIMATED GFR IS NOT APPLICABLE FOR DIALYSIS PATIENTS. [id number] 06:41:00 Test Item Value Reference Range Comments PARTIAL THROMBOPLASTIN TIME (BEAKER) (test 73.4 seconds 22.5-36.0 prxd=253) CBC (HEMOGRAM ONLY)2018-12-14 06:34:00 Test Item Value Reference Range Comments WHITE BLOOD CELL COUNT (BEAKER) (test awcs=868) 11.8 K/ L 3.5-10.5 RED BLOOD CELL COUNT (BEAKER) (test ewqj=282) 5.42 M/ L 4.63-6.08 HEMOGLOBIN (BEAKER) (test ikuf=348) 14.1 GM/DL 13.7-17.5 HEMATOCRIT (BEAKER) (test jkfz=696) 45.2 % 40.1-51.0 MEAN CORPUSCULAR VOLUME (BEAKER) (test zrky=772) 83.4 fL 79.0-92.2 MEAN CORPUSCULAR HEMOGLOBIN (BEAKER) (test 26.0 pg 25.7-32.2 gfsw=283) MEAN CORPUSCULAR HEMOGLOBIN CONC (BEAKER) (test 31.2 GM/DL 32.3-36.5 jaur=076) RED CELL DISTRIBUTION WIDTH (BEAKER) (test 13.8 % 11.6-14.4 aysq=272) PLATELET COUNT (BEAKER) (test mxiy=501) 282 K/CU MM 150-450 MEAN PLATELET VOLUME (BEAKER) (test qbik=372) 10.9 fL 9.4-12.4 NUCLEATED RED BLOOD CELLS (BEAKER) (test 0 /100 WBC 0-0 bual=579) [id number] 00:03:00 Test Item Value Reference Range Comments PARTIAL THROMBOPLASTIN TIME (BEAKER) (test 75.0 seconds 22.5-36.0 gmmo=373) POCT-GLUCOSE [id number] 22:24:00 Test Item Value Reference Range Comments POC-GLUCOSE METER (BEAKER) 136 mg/dL 70-110 TESTED AT [address] (test vrht=6195) [place] [address] [id number] 16:32:00 Test Item Value Reference Range Comments PARTIAL THROMBOPLASTIN TIME (BEAKER) (test 100.4 seconds 22.5-36.0 nbzr=233) POCT-GLUCOSE [id number] 09:13:00 Test Item Value Reference Range Comments POC-GLUCOSE METER (BEAKER) 169 mg/dL 70-110 TESTED AT [address] (test csvp=1724) [place] [address] [id number] 09:04:00 Test Item Value Reference Range Comments PARTIAL THROMBOPLASTIN TIME (BEAKER) (test 105.9 seconds 22.5-36.0 eukd=366) SPUTUM CULTURE + GRAM [id number] 08:31:00 Test Item Value Reference Range Comments CULTURE (BEAKER) (test 4+ Normal respiratory deandra hvic=5993) present GRAM STAIN RESULT (BEAKER) 1+ WBCs (test wpgo=5831) GRAM STAIN RESULT (BEAKER) 0-5 epithelial cells (test xqqm=35246) GRAM STAIN RESULT (BEAKER) <1+ gram negative rods (test nrsg=431136) GRAM STAIN RESULT (BEAKER) <1+ gram positive cocci in pairs (test ujzo=124467) 3+ NormaPOCT-GLUCOSE [id number] 06:02:00 Test Item Value Reference Range Comments POC-GLUCOSE METER (BEAKER) 192 mg/dL 70-110 TESTED AT [address] (test qnqu=1209) [place] [address] [id number] 05:34:00 Test Item Value Reference Range Comments PHOSPHORUS (BEAKER) (test saen=154) 4.3 mg/dL 2.3-4.7 [id number] 05:34:00 Test Item Value Reference Range Comments MAGNESIUM (BEAKER) (test ujph=588) 2.0 mg/dL 1.6-2.6 BASIC METABOLIC [id number] 05:34:00 Test Item Value Reference Range Comments SODIUM (BEAKER) (test 141 meq/L 136-145 mngz=068) POTASSIUM (BEAKER) (test 4.1 meq/L 3.5-5.1 tlxv=367) CHLORIDE (BEAKER) (test 97 meq/L 98-107 quzn=617) CO2 (BEAKER) (test 33 meq/L 22-29 oqxh=015) BLOOD UREA NITROGEN 36 mg/dL 7-21 (BEAKER) (test xkaz=495) CREATININE (BEAKER) (test 1.19 mg/dL 0.57-1.25 krcm=203) GLUCOSE RANDOM (BEAKER) 115 mg/dL 70-105 (test lvdn=137) CALCIUM (BEAKER) (test 9.5 mg/dL 8.4-10.2 zkob=306) EGFR (BEAKER) (test 60 mL/min/1.73 sq m ESTIMATED GFR IS NOT kway=1910) ACCURATE CREATININE CLEARANCE IN PREDICTING GLOMERULAR FILTRATION RATE. ESTIMATED GFR IS NOT APPLICABLE FOR DIALYSIS PATIENTS. CBC (HEMOGRAM ONLY)2018-12-13 04:50:00 Test Item Value Reference Range Comments WHITE BLOOD CELL COUNT (BEAKER) (test rgil=595) 14.2 K/ L 3.5-10.5 RED BLOOD CELL COUNT (BEAKER) (test fwsg=576) 5.34 M/ L 4.63-6.08 HEMOGLOBIN (BEAKER) (test fixo=439) 13.9 GM/DL 13.7-17.5 HEMATOCRIT (BEAKER) (test zqom=580) 43.8 % 40.1-51.0 MEAN CORPUSCULAR VOLUME (BEAKER) (test xwcz=274) 82.0 fL 79.0-92.2 MEAN CORPUSCULAR HEMOGLOBIN (BEAKER) (test 26.0 pg 25.7-32.2 cnzd=969) MEAN CORPUSCULAR HEMOGLOBIN CONC (BEAKER) (test 31.7 GM/DL 32.3-36.5 jdvx=709) RED CELL DISTRIBUTION WIDTH (BEAKER) (test 13.7 % 11.6-14.4 ckwb=347) PLATELET COUNT (BEAKER) (test fbxc=007) 307 K/CU MM 150-450 MEAN PLATELET VOLUME (BEAKER) (test pzdz=236) 11.1 fL 9.4-12.4 NUCLEATED RED BLOOD CELLS (BEAKER) (test 0 /100 WBC 0-0 wwjg=647) [id number] 01:19:00 Test Item Value Reference Range Comments PARTIAL THROMBOPLASTIN TIME (BEAKER) (test 100.2 seconds 22.5-36.0 lviw=218) POCT-GLUCOSE [id number] 00:15:00 Test Item Value Reference Range Comments POC-GLUCOSE METER (BEAKER) 171 mg/dL 70-110 TESTED AT [address] (test zati=9795) [place] [address] BASIC METABOLIC [id number] 21:26:00 Test Item Value Reference Range Comments SODIUM (BEAKER) (test 139 meq/L 136-145 xyje=533) POTASSIUM (BEAKER) (test 4.6 meq/L 3.5-5.1 Specimen slightly yack=075) hemolyzed CHLORIDE (BEAKER) (test 94 meq/L 98-107 lokj=501) CO2 (BEAKER) (test 32 meq/L 22-29 zwnd=966) BLOOD UREA NITROGEN 39 mg/dL 7-21 (BEAKER) (test cvwf=648) CREATININE (BEAKER) (test 1.54 mg/dL 0.57-1.25 Specimen slightly kpgp=658) hemolyzed GLUCOSE RANDOM (BEAKER) 328 mg/dL 70-105 (test rqep=676) CALCIUM (BEAKER) (test 9.7 mg/dL 8.4-10.2 kjxs=079) EGFR (BEAKER) (test 45 mL/min/1.73 sq m ESTIMATED GFR IS NOT hpqd=2556) ACCURATE CREATININE CLEARANCE IN PREDICTING GLOMERULAR FILTRATION RATE. ESTIMATED GFR IS NOT APPLICABLE FOR DIALYSIS PATIENTS. [id number] 18:15:00 Test Item Value Reference Range Comments PARTIAL THROMBOPLASTIN TIME (BEAKER) (test 105.1 seconds 22.5-36.0 eker=852) POCT-GLUCOSE [id number] 16:30:00 Test Item Value Reference Range Comments POC-GLUCOSE METER (BEAKER) 208 mg/dL 70-110 TESTED AT [address] (test yxmf=4717) [place] [address] [id number] 10:28:00 Test Item Value Reference Range Comments PARTIAL THROMBOPLASTIN TIME (BEAKER) (test 104.3 seconds 22.5-36.0 iynl=459) BASIC METABOLIC [id number] 09:13:00 Test Item Value Reference Range Comments SODIUM (BEAKER) (test 139 meq/L 136-145 bsry=942) POTASSIUM (BEAKER) (test 3.8 meq/L 3.5-5.1 phah=216) CHLORIDE (BEAKER) (test 97 meq/L 98-107 rzuf=858) CO2 (BEAKER) (test 30 meq/L 22-29 oimg=492) BLOOD UREA NITROGEN 36 mg/dL 7-21 (BEAKER) (test knwd=277) CREATININE (BEAKER) (test 1.44 mg/dL 0.57-1.25 ugwa=365) GLUCOSE RANDOM (BEAKER) 183 mg/dL 70-105 (test wmuk=148) CALCIUM (BEAKER) (test 9.2 mg/dL 8.4-10.2 xeqj=476) EGFR (BEAKER) (test 48 mL/min/1.73 sq m ESTIMATED GFR IS NOT sayb=0322) ACCURATE CREATININE CLEARANCE IN PREDICTING GLOMERULAR FILTRATION RATE. ESTIMATED GFR IS NOT APPLICABLE FOR DIALYSIS PATIENTS. POCT-GLUCOSE [id number] 07:38:00 Test Item Value Reference Range Comments POC-GLUCOSE METER (BEAKER) 111 mg/dL 70-110 TESTED AT [address] (test zqzl=9337) [facility] [address] B-TYPE NATRIURETIC FACTOR (BNP)2018-12-12 03:24:00 Test Item Value Reference Range Comments B-TYPE NATRIURETIC PEPTIDE (BEAKER) (test 807 pg/mL 0-100 ywtx=595) [id number] 03:20:00 Test Item Value Reference Range Comments PHOSPHORUS (BEAKER) (test yune=814) 3.5 mg/dL 2.3-4.7 [id number] 03:20:00 Test Item Value Reference Range Comments MAGNESIUM (BEAKER) (test qaao=248) 2.2 mg/dL 1.6-2.6 [id number] 03:04:00 Test Item Value Reference Range Comments PARTIAL THROMBOPLASTIN TIME (BEAKER) (test 80.2 seconds 22.5-36.0 ouuq=712) CBC (HEMOGRAM ONLY)2018-12-12 02:55:00 Test Item Value Reference Range Comments WHITE BLOOD CELL COUNT (BEAKER) (test wfos=720) 14.5 K/ L 3.5-10.5 RED BLOOD CELL COUNT (BEAKER) (test yrhd=410) 5.55 M/ L 4.63-6.08 HEMOGLOBIN (BEAKER) (test ejgo=098) 14.2 GM/DL 13.7-17.5 HEMATOCRIT (BEAKER) (test jjvw=827) 45.1 % 40.1-51.0 MEAN CORPUSCULAR VOLUME (BEAKER) (test avra=862) 81.3 fL 79.0-92.2 MEAN CORPUSCULAR HEMOGLOBIN (BEAKER) (test 25.6 pg 25.7-32.2 ktig=362) MEAN CORPUSCULAR HEMOGLOBIN CONC (BEAKER) (test 31.5 GM/DL 32.3-36.5 gtxh=122) RED CELL DISTRIBUTION WIDTH (BEAKER) (test 13.5 % 11.6-14.4 xlfj=680) PLATELET COUNT (BEAKER) (test vvnl=234) 332 K/CU MM 150-450 MEAN PLATELET VOLUME (BEAKER) (test lnty=151) 10.4 fL 9.4-12.4 NUCLEATED RED BLOOD CELLS (BEAKER) (test 0 /100 WBC 0-0 tvow=559) POCT-GLUCOSE [id number] 22:23:00 Test Item Value Reference Range Comments POC-GLUCOSE METER (BEAKER) 252 mg/dL 70-[address] [facility] [address] [facility] (test jxns=6230) [facility] [address] BASIC METABOLIC [id number] 21:06:00 Test Item Value Reference Range Comments SODIUM (BEAKER) (test 136 meq/L 136-145 obqk=069) POTASSIUM (BEAKER) (test 4.2 meq/L 3.5-5.1 Specimen slightly lmam=045) hemolyzed CHLORIDE (BEAKER) (test 95 meq/L 98-107 jqqo=170) CO2 (BEAKER) (test 31 meq/L 22-29 mjcf=962) BLOOD UREA NITROGEN 38 mg/dL 7-21 (BEAKER) (test kqfs=952) CREATININE (BEAKER) (test 1.55 mg/dL 0.57-1.25 Specimen slightly ecee=041) hemolyzed GLUCOSE RANDOM (BEAKER) 331 mg/dL 70-105 (test mord=995) CALCIUM (BEAKER) (test 9.0 mg/dL 8.4-10.2 lqpy=909) EGFR (BEAKER) (test 44 mL/min/1.73 sq m ESTIMATED GFR IS NOT crwo=2455) ACCURATE CREATININE CLEARANCE IN PREDICTING GLOMERULAR FILTRATION RATE. ESTIMATED GFR IS NOT APPLICABLE FOR DIALYSIS PATIENTS. [id number] 19:00:00 Test Item Value Reference Range Comments PARTIAL THROMBOPLASTIN TIME (BEAKER) (test 42.7 seconds 22.5-36.0 ygyo=789) PET, CARDIAC PET, [id number] 18:10:00Reason for exam:->multivessel CAD; pre-ACBFINAL REPORT PROCEDURE: MYOCARDIAL METABOLISM PET IMAGING with Rest MYOCARDIAL PERFUSION PET IMAGING\XA9\[facility] CODE: [id number], [id number]: CAD, preoperative viability assessment for ACB PROTOCOL: [...] MDReport Verified Date/Time: 12/11/2018 18:10:46 Reading Location: [address] [address] [facility] Reading Room POCT-GLUCOSE [id number] 17:18:00 Test Item Value Reference Range Comments POC-GLUCOSE METER (BEAKER) 141 mg/dL 70-110 TESTED AT [address] (test anqx=9579) [facility] [address] POCT-GLUCOSE [id number] 15:52:00 Test Item Value Reference Range Comments POC-GLUCOSE METER (BEAKER) 222 mg/dL 70-110 TESTED AT [address] (test rofj=7993) [facility] [address] POCT-GLUCOSE [id number] 14:37:00 Test Item Value Reference Range Comments POC-GLUCOSE METER (BEAKER) 186 mg/dL 70-110 TESTED AT [address] (test trvw=5823) [facility] [address] POCT-GLUCOSE [id number] 12:04:00 Test Item Value Reference Range Comments POC-GLUCOSE METER (BEAKER) 134 mg/dL 70-110 TESTED AT [address] (test hluq=1741) [facility] [address] CT, CHEST, WITHOUT [id number] 11:34:00FINAL REPORT INDICATION: Hypoxemia and shortness of [...] Verified Date/Time : 12/11/2018 11:34:47 Reading Location: [facility] Diagnostic Imaging Reading Room - [place] [address] Electronically signed by: JARRED OBRIEN M.D. on 2018 11:34 AMPOCT-GLUCOSE [id number] 07:31:00 Test Item Value Reference Range Comments POC-GLUCOSE METER (BEAKER) 112 mg/dL 70-110 TESTED AT [address] (test imnj=4793) [facility] [address] TROPONIN [id number] 06:39:00 Test Item Value Reference Range Comments TROPONIN I (BEAKER) (test ipep=000) 1.07 ng/mL 0.00-0.03 Troponin I (TnI) levels [...] failure, acidosis, acute neurological disease, and persistent tachyarrhythmia.[id number] 06:09:00 Test Item Value Reference Range Comments PHOSPHORUS (BEAKER) (test bxni=178) 3.0 mg/dL 2.3-4.7 [id number] 06:09:00 Test Item Value Reference Range Comments MAGNESIUM (BEAKER) (test izdw=195) 2.0 mg/dL 1.6-2.6 BASIC METABOLIC [id number] 06:09:00 Test Item Value Reference Range Comments SODIUM (BEAKER) (test 139 meq/L 136-145 kuuq=014) POTASSIUM (BEAKER) (test 3.8 meq/L 3.5-5.1 yvzb=756) CHLORIDE (BEAKER) (test 99 meq/L 98-107 bwqt=508) CO2 (BEAKER) (test 32 meq/L 22-29 aywd=858) BLOOD UREA NITROGEN 34 mg/dL 7-21 (BEAKER) (test mcwf=300) CREATININE (BEAKER) (test 1.24 mg/dL 0.57-1.25 opuz=049) GLUCOSE RANDOM (BEAKER) 109 mg/dL 70-105 (test tnbo=894) CALCIUM (BEAKER) (test 8.7 mg/dL 8.4-10.2 avtx=014) EGFR (BEAKER) (test 57 mL/min/1.73 sq m ESTIMATED GFR IS NOT edjd=3769) ACCURATE CREATININE CLEARANCE IN PREDICTING GLOMERULAR FILTRATION RATE. ESTIMATED GFR IS NOT APPLICABLE FOR DIALYSIS PATIENTS. [id number] 06:08:00 Test Item Value Reference Range Comments PHOSPHORUS (BEAKER) (test wgpr=013) 3.0 mg/dL 2.3-4.7 B-TYPE NATRIURETIC FACTOR (BNP)2018-12-11 06:02:00 Test Item Value Reference Range Comments B-TYPE NATRIURETIC PEPTIDE (BEAKER) (test 745 pg/mL 0-100 cqzv=831) [id number] 05:47:00 Test Item Value Reference Range Comments PARTIAL THROMBOPLASTIN TIME (BEAKER) (test 80.5 seconds 22.5-36.0 uqby=874) CBC (HEMOGRAM ONLY)2018-12-11 05:36:00 Test Item Value Reference Range Comments WHITE BLOOD CELL COUNT (BEAKER) (test tbcp=636) 14.7 K/ L 3.5-10.5 RED BLOOD CELL COUNT (BEAKER) (test gmsu=516) 5.02 M/ L 4.63-6.08 HEMOGLOBIN (BEAKER) (test rulw=328) 13.0 GM/DL 13.7-17.5 HEMATOCRIT (BEAKER) (test psfc=782) 39.7 % 40.1-51.0 MEAN CORPUSCULAR VOLUME (BEAKER) (test zatt=199) 79.1 fL 79.0-92.2 MEAN CORPUSCULAR HEMOGLOBIN (BEAKER) (test 25.9 pg 25.7-32.2 fknp=577) MEAN CORPUSCULAR HEMOGLOBIN CONC (BEAKER) (test 32.7 GM/DL 32.3-36.5 evrm=393) RED CELL DISTRIBUTION WIDTH (BEAKER) (test 13.4 % 11.6-14.4 cbpn=068) PLATELET COUNT (BEAKER) (test odxd=018) 282 K/CU MM 150-450 MEAN PLATELET VOLUME (BEAKER) (test gwlj=270) 10.7 fL 9.4-12.4 NUCLEATED RED BLOOD CELLS (BEAKER) (test 0 /100 WBC 0-0 bouk=854) RAD, CHEST, 1 VIEW, NON [id number] 04:35:00Reason for exam:->edema, opacity?Should this be performed [...] Verified Date/Time: 12/11/2018 04:35:08 Reading Location : [address] ReadingRoom POCT-GLUCOSE [id number] 21:59:00 Test Item Value Reference Range Comments POC-GLUCOSE METER (BEAKER) 167 mg/dL 70-110 TESTED AT [address] (test rvpb=1507) [facility] [address] BASIC METABOLIC [id number] 21:43:00 Test Item Value Reference Range Comments SODIUM (BEAKER) (test 135 meq/L 136-145 xflm=767) POTASSIUM (BEAKER) (test 4.1 meq/L 3.5-5.1 bbjl=782) CHLORIDE (BEAKER) (test 97 meq/L 98-107 asbn=224) CO2 (BEAKER) (test 32 meq/L 22-29 wpyu=306) BLOOD UREA NITROGEN 37 mg/dL 7-21 (BEAKER) (test xrkk=768) CREATININE (BEAKER) (test 1.50 mg/dL 0.57-1.25 gaoz=962) GLUCOSE RANDOM (BEAKER) 173 mg/dL 70-105 (test egkw=802) CALCIUM (BEAKER) (test 8.7 mg/dL 8.4-10.2 qakx=114) EGFR (BEAKER) (test 46 mL/min/1.73 sq m ESTIMATED GFR IS NOT ttcz=7625) ACCURATE CREATININE CLEARANCE IN PREDICTING GLOMERULAR FILTRATION RATE. ESTIMATED GFR IS NOT APPLICABLE FOR DIALYSIS PATIENTS. [id number] 21:28:00 Test Item Value Reference Range Comments PARTIAL THROMBOPLASTIN TIME (BEAKER) (test 60.6 seconds 22.5-36.0 xbfx=968) BASIC METABOLIC [id number] 17:24:00 Test Item Value Reference Range Comments SODIUM (BEAKER) (test 136 meq/L 136-145 mhlj=475) POTASSIUM (BEAKER) (test 4.4 meq/L 3.5-5.1 Specimen slightly sead=444) hemolyzed CHLORIDE (BEAKER) (test 97 meq/L 98-107 cswu=354) CO2 (BEAKER) (test 31 meq/L 22-29 mfyf=753) BLOOD UREA NITROGEN 35 mg/dL 7-21 (BEAKER) (test tzvc=328) CREATININE (BEAKER) (test 1.50 mg/dL 0.57-1.25 Specimen slightly prot=300) hemolyzed GLUCOSE RANDOM (BEAKER) 135 mg/dL 70-105 (test cggx=032) CALCIUM (BEAKER) (test 8.7 mg/dL 8.4-10.2 sdmn=814) EGFR (BEAKER) (test 46 mL/min/1.73 sq m ESTIMATED GFR IS NOT kadn=7824) ACCURATE CREATININE CLEARANCE IN PREDICTING GLOMERULAR FILTRATION RATE. ESTIMATED GFR IS NOT APPLICABLE FOR DIALYSIS PATIENTS. POCT-GLUCOSE [id number] 16:32:00 Test Item Value Reference Range Comments POC-GLUCOSE METER (BEAKER) 136 mg/dL 70-[address] [facility] [address] [facility] (test iatt=2337) [facility] [address] VANCOMYCIN LEVEL, [id number] 13:55:00 Test Item Value Reference Range Comments VANCOMYCIN TROUGH (BEAKER) (test fqwj=511) 16.8 ug/mL 10.0-20.0 [id number] 12:49:00 Test Item Value Reference Range Comments PARTIAL THROMBOPLASTIN TIME (BEAKER) (test 47.0 seconds 22.5-36.0 mlxl=324) POCT-GLUCOSE [id number] 11:53:00 Test Item Value Reference Range Comments POC-GLUCOSE METER (BEAKER) 161 mg/dL 70-110 TESTED AT [address] (test etxe=1504) [facility] [address] POCT-GLUCOSE [id number] 08:12:00 Test Item Value Reference Range Comments POC-GLUCOSE METER (BEAKER) 164 mg/dL 70-110 TESTED AT [address] (test tkre=7472) [place] [id number] 05:53:00 Test Item Value Reference Range Comments PROCALCITONIN (BEAKER) (test snfz=1593) < ng/mL <0.05 SEPSIS RISK (ng/mL)Low: 0.05-0.50Intermediate: 0.51-2.00High: & gt;=2.01TROPONIN [id number] 05:41:00 Test Item Value Reference Range Comments TROPONIN I (BEAKER) (test xyav=074) 0.93 ng/mL 0.00-0.03 Troponin I (TnI) levels [...] NATRIURETIC PEPTIDE (BEAKER) (test 814 pg/mL 0-100 jvjy=993) [id number] 04:33:00 Test Item Value Reference Range Comments PHOSPHORUS (BEAKER) (test cgin=713) 4.8 mg/dL 2.3-4.7 [id number] 04:33:00 Test Item Value Reference Range Comments MAGNESIUM (BEAKER) (test wojf=893) 2.2 mg/dL 1.6-2.6 BASIC METABOLIC [id number] 04:33:00 Test Item Value Reference Range Comments SODIUM (BEAKER) (test 135 meq/L 136-145 qjld=017) POTASSIUM (BEAKER) (test 4.3 meq/L 3.5-5.1 kyun=530) CHLORIDE (BEAKER) (test 100 meq/L 98-107 cqxe=312) CO2 (BEAKER) (test 28 meq/L 22-29 duib=315) BLOOD UREA NITROGEN 24 mg/dL 7-21 (BEAKER) (test wchd=735) CREATININE (BEAKER) (test 1.35 mg/dL 0.57-1.25 cboi=042) GLUCOSE RANDOM (BEAKER) 227 mg/dL 70-105 (test llng=348) CALCIUM (BEAKER) (test 8.3 mg/dL 8.4-10.2 cidx=458) EGFR (BEAKER) (test 52 mL/min/1.73 sq m ESTIMATED GFR IS NOT wuoe=0343) ACCURATE CREATININE CLEARANCE IN PREDICTING GLOMERULAR FILTRATION RATE. ESTIMATED GFR IS NOT APPLICABLE FOR DIALYSIS PATIENTS. LACTIC ACID, [id number] 04:25:00 Test Item Value Reference Range Comments LACTATE BLOOD VENOUS (2) (BEAKER) (test 0.6 mmol/L 0.5-2.2 pqdm=9676) CBC (HEMOGRAM ONLY)2018-12-10 03:53:00 Test Item Value Reference Range Comments WHITE BLOOD CELL COUNT (BEAKER) (test djhn=560) 10.5 K/ L 3.5-10.5 RED BLOOD CELL COUNT (BEAKER) (test mqzt=255) 4.71 M/ L 4.63-6.08 HEMOGLOBIN (BEAKER) (test cnoy=468) 12.2 GM/DL 13.7-17.5 HEMATOCRIT (BEAKER) (test vuxb=819) 38.1 % 40.1-51.0 MEAN CORPUSCULAR VOLUME (BEAKER) (test mdws=879) 80.9 fL 79.0-92.2 MEAN CORPUSCULAR HEMOGLOBIN (BEAKER) (test 25.9 pg 25.7-32.2 cqho=906) MEAN CORPUSCULAR HEMOGLOBIN CONC (BEAKER) (test 32.0 GM/DL 32.3-36.5 rvqp=843) RED CELL DISTRIBUTION WIDTH (BEAKER) (test 13.2 % 11.6-14.4 kzze=104) PLATELET COUNT (BEAKER) (test znbe=272) 239 K/CU MM 150-450 MEAN PLATELET VOLUME (BEAKER) (test trxt=643) 10.5 fL 9.4-12.4 NUCLEATED RED BLOOD CELLS (BEAKER) (test 0 /100 WBC 0-0 pblp=452) POCT-GLUCOSE [id number] 22:31:00 Test Item Value Reference Range Comments POC-GLUCOSE METER (BEAKER) 187 mg/dL 70-110 TESTED AT [address] (test pxiv=8820) [place] [address] POCT-GLUCOSE [id number] 17:19:00 Test Item Value Reference Range Comments POC-GLUCOSE METER (BEAKER) 158 mg/dL 70-110 TESTED AT [address] (test wuxh=0270) [place] [address] HEMOGLOBIN [id number] 14:57:00 Test Item Value Reference Range Comments HEMOGLOBIN A1C (BEAKER) (test jyhx=641) 5.7 % 4.3-6.1 POCT-GLUCOSE [id number] 12:19:00 Test Item Value Reference Range Comments POC-GLUCOSE METER (BEAKER) 140 mg/dL 70-110 TESTED AT [address] (test cuey=0393) [place] [address] URINALYSIS W/ REFLEX URINE [id number] 11:34:00 Test Item Value Reference Range Comments COLOR (BEAKER) (test wuzp=955) Yellow CLARITY (BEAKER) (test yckj=689) Clear SPECIFIC GRAVITY UA (BEAKER) (test chqc=545) 1.009 1.001-1.035 PH UA (BEAKER) (test chtt=534) 5.0 5.0-8.0 PROTEIN UA (BEAKER) (test ybak=039) 20 mg/dL Negative GLUCOSE UA (BEAKER) (test zruv=655) Negative Negative KETONES UA (BEAKER) (test cxmd=451) Negative Negative BILIRUBIN UA (BEAKER) (test eaky=668) Negative Negative BLOOD UA (BEAKER) (test njfo=822) Moderate Negative NITRITE UA (BEAKER) (test tcit=373) Negative Negative LEUKOCYTE ESTERASE UA (BEAKER) (test qkcu=243) Moderate Negative UROBILINOGEN UA (BEAKER) (test oizn=715) 0.2 mg/dL 0.2-1.0 RBC UA (BEAKER) (test tppl=611) 27 /HPF WBC UA (BEAKER) (test dehk=266) 20 /HPF MUCUS (BEAKER) (test tkju=5484) Rare SQUAMOUS EPITHELIAL (BEAKER) (test xwxx=564) < /HPF SOURCE(BEAKER) (test kyor=1146) [id number] 11:13:00 Test Item Value Reference Range Comments PARTIAL THROMBOPLASTIN TIME (BEAKER) (test 51.5 seconds 22.5-36.0 dqzq=182) RESPIRATORY PANEL [id number] 10:18:00 Test Item Value Reference Range Comments HUMAN METAPNEUMOVIRUS (BEAKER) (test Not detected Not detected, Equivocal igmg=1321) RHINOVIRUS (BEAKER) (test wjsi=1002) Not detected Not detected, Equivocal INFLUENZA A (BEAKER) (test fvjb=0213) Not detected Not detected, Equivocal INFLUENZA A (NO SUBTYPE) (test Not detected, Equivocal swpf=7938) INFLUENZA A SUBTYPE H1 (BEAKER) (test Not detected, Equivocal yoff=7856) INFLUENZA A SUBTYPE H3 (BEAKER) (test Not detected, Equivocal jkee=8127) INFLUENZA A SUBTYPE H1-2009 (BEAKER) Not detected, Equivocal (test hiyp=0482) INFLUENZA B (BEAKER) (test hila=4040) Not detected Not detected, Equivocal RESPIRATORY SYNCYTIAL VIRUS (BEAKER) Not detected Not detected, Equivocal (test njfu=3660) PARAINFLUENZA VIRUS 1 (BEAKER) (test Not detected Not detected, Equivocal xnow=0580) PARAINFLUENZA VIRUS 2 (BEAKER) (test Not detected Not detected, Equivocal eqnw=2153) PARAINFLUENZA VIRUS 3 (BEAKER) (test Not detected Not detected, Equivocal pycr=2843) PARAINFLUENZA VIRUS 4 (BEAKER) (test Not detected Not detected, Equivocal ztqa=9746) ADENOVIRUS (BEAKER) (test fecj=4411) Not detected Not detected, Equivocal CORONAVIRUS 229E (BEAKER) (test Not detected Not detected, Equivocal tjhd=0316) CORONAVIRUS HKU1 (BEAKER) (test Not detected Not detected, Equivocal ottr=1284) CORONAVIRUS NL63 (BEAKER) (test Not detected Not detected, Equivocal rhuw=6723) CORONAVIRUS OC43 (BEAKER) (test Not detected Not detected, Equivocal gxoc=5432) BORDETELLA PERTUSSIS (BEAKER) (test Not detected Not detected, Equivocal mmzw=0423) CHLAMYDOPHILA PNEUMONIAE (BEAKER) (test Not detected Not detected, Equivocal nzjv=6537) MYCOPLASMA PNEUMONIAE (BEAKER) (test Not detected Not detected, Equivocal tadx=6662) Other viruses and bacteria not targeted by this PCR panel cannot be excluded; therefore clinical correlation and follow up of serology, culture results, and other molecular studies is required. The results are not intended to be used as the sole means for clinical diagnosis or patient management decisions. This sample was tested at the [facility] Molecular Diagnostics Laboratory using the [employer] FilmArray Respiratory Panel. It is FDA cleared and has been verified and approved by the [facility] Molecular Diagnostics [facility] for clinical use on nasopharyngeal swab specimens.The performance of the FilmArrayRP has not been established in individuals who received influenza vaccine. Recent administration ofa nasal influenza vaccine may cause false positive results for Influenza A and/orInfluenza B.POCT-GLUCOSE [id number] 07:53:00 Test Item Value Reference Range Comments POC-GLUCOSE METER (BEAKER) 181 mg/dL 70-[address] [facility] [address] (test wkcp=4316) [facility] [address] COMPREHENSIVE METABOLIC [id number] 02:51:00 Test Item Value Reference Range Comments TOTAL PROTEIN (BEAKER) 6.9 gm/dL 6.0-8.3 Specimen slightly (test fxii=389) hemolyzed ALBUMIN (BEAKER) (test 3.4 g/dL 3.5-5.0 Specimen slightly lnfs=7403) hemolyzed ALKALINE PHOSPHATASE 66 U/L 40-150 (BEAKER) (test eami=443) BILIRUBIN TOTAL (BEAKER) 0.5 mg/dL 0.2-1.2 Specimen slightly (test erzq=924) hemolyzed SODIUM (BEAKER) (test 138 meq/L 136-145 wdxs=790) POTASSIUM (BEAKER) (test 4.4 meq/L 3.5-5.1 Specimen slightly uzrt=888) hemolyzed CHLORIDE (BEAKER) (test 108 meq/L 98-107 kzyt=074) CO2 (BEAKER) (test 20 meq/L 22-29 pwkg=720) BLOOD UREA NITROGEN 17 mg/dL 7-21 (BEAKER) (test tvzb=927) CREATININE (BEAKER) (test 1.20 mg/dL 0.57-1.25 Specimen slightly qxqi=074) hemolyzed GLUCOSE RANDOM (BEAKER) 135 mg/dL 70-105 (test byyi=508) CALCIUM (BEAKER) (test 8.5 mg/dL 8.4-10.2 wuvq=156) AST (SGOT) (BEAKER) (test 13 U/L 5-34 Specimen slightly ymaq=151) hemolyzed ALT (SGPT) (BEAKER) (test 11 U/L 6-55 Specimen slightly bpzy=042) hemolyzed EGFR (BEAKER) (test 60 mL/min/1.73 sq m ESTIMATED GFR IS NOT tvry=0136) ACCURATE CREATININE CLEARANCE IN PREDICTING GLOMERULAR FILTRATION RATE. ESTIMATED GFR IS NOT APPLICABLE FOR DIALYSIS PATIENTS. TROPONIN [id number] 02:40:00 Test Item Value Reference Range Comments TROPONIN I (BEAKER) (test szzu=197) 1.38 ng/mL 0.00-0.03 Troponin I (TnI) levels [...] NATRIURETIC PEPTIDE (BEAKER) (test 608 pg/mL 0-100 yoxm=811) [id number] 02:15:00 Test Item Value Reference Range Comments MAGNESIUM (BEAKER) (test 1.7 mg/dL 1.6-2.6 Specimen slightly hemolyzed cwom=201) [id number] 02:15:00 Test Item Value Reference Range Comments PHOSPHORUS (BEAKER) (test 3.1 mg/dL 2.3-4.7 Specimen slightly hemolyzed kpnt=621) CBC W/PLT COUNT & AUTO [id number] 02:04:00 Test Item Value Reference Range Comments WHITE BLOOD CELL COUNT (BEAKER) (test ncal=218) 11.4 K/ L 3.5-10.5 RED BLOOD CELL COUNT (BEAKER) (test ybxx=480) 4.93 M/ L 4.63-6.08 HEMOGLOBIN (BEAKER) (test fkzc=858) 12.9 GM/DL 13.7-17.5 HEMATOCRIT (BEAKER) (test efob=715) 40.5 % 40.1-51.0 MEAN CORPUSCULAR VOLUME (BEAKER) (test xbmy=228) 82.2 fL 79.0-92.2 MEAN CORPUSCULAR HEMOGLOBIN (BEAKER) (test 26.2 pg 25.7-32.2 nwik=964) MEAN CORPUSCULAR HEMOGLOBIN CONC (BEAKER) (test 31.9 GM/DL 32.3-36.5 tfpd=412) RED CELL DISTRIBUTION WIDTH (BEAKER) (test 13.8 % 11.6-14.4 edpl=432) PLATELET COUNT (BEAKER) (test clvb=299) 242 K/CU MM 150-450 MEAN PLATELET VOLUME (BEAKER) (test lldo=324) 10.8 fL 9.4-12.4 NUCLEATED RED BLOOD CELLS (BEAKER) (test 0 /100 WBC 0-0 vchv=486) NEUTROPHILS RELATIVE PERCENT (BEAKER) (test 92 % amgw=999) LYMPHOCYTES RELATIVE PERCENT (BEAKER) (test 4 % iagi=328) MONOCYTES RELATIVE PERCENT (BEAKER) (test 2 % xmce=765) EOSINOPHILS RELATIVE PERCENT (BEAKER) (test 0 % exlu=198) BASOPHILS RELATIVE PERCENT (BEAKER) (test 1 % igyz=356) NEUTROPHILS ABSOLUTE COUNT (BEAKER) (test 10.49 K/ L 1.78-5.38 miir=017) LYMPHOCYTES ABSOLUTE COUNT (BEAKER) (test 0.48 K/ L 1.32-3.57 nwyd=864) MONOCYTES ABSOLUTE COUNT (BEAKER) (test 0.27 K/ L 0.30-0.82 cmbk=283) EOSINOPHILS ABSOLUTE COUNT (BEAKER) (test 0.00 K/ L 0.04-0.54 qpsu=462) BASOPHILS ABSOLUTE COUNT (BEAKER) (test 0.07 K/ L 0.01-0.08 ykdt=645) IMMATURE GRANULOCYTES-RELATIVE PERCENT (BEAKER) 0 % 0-1 (test ypur=4373) [id number] 01:59:00 Test Item Value Reference Range Comments PARTIAL THROMBOPLASTIN TIME (BEAKER) (test 40.5 seconds 22.5-36.0 fgyj=859) POCT-GLUCOSE [id number] 22:21:00 Test Item Value Reference Range Comments POC-GLUCOSE METER (BEAKER) 136 mg/dL 70-[address] [facility] [address] (test hklg=4775) [facility] [address] RAD, CHEST, 1 VIEW, NON [id number] 21:04:00Reason for exam:->shortness of breathShould this be [...] MDReport Verified Date/Time: 12/08/2018 21:04:01 Reading Location: [address] Reading Room BUN AND [id number] 20:26:00 Test Item Value Reference Range Comments BLOOD UREA NITROGEN 18 mg/dL 7-21 (BEAKER) (test easi=540) CREATININE (BEAKER) (test 1.30 mg/dL 0.57-1.25 ruwf=218) EGFR (BEAKER) (test 54 mL/min/1.73 sq m ESTIMATED GFR IS NOT egmu=6141) ACCURATE CREATININE CLEARANCE IN PREDICTING GLOMERULAR FILTRATION RATE. ESTIMATED GFR IS NOT APPLICABLE FOR DIALYSIS PATIENTS. THEOPHYLLINE [id number] 19:28:00 Test Item Value Reference Range Comments THEOPHYLLINE LEVEL (BEAKER) (test lnxy=114) 10.1 ug/mL 10.0-20.0 [id number] 19:09:00 Test Item Value Reference Range Comments PARTIAL THROMBOPLASTIN TIME (BEAKER) (test 36.3 seconds 22.5-36.0 ejgx=726) Prior to initiating heparinSTREP PNEUMONIAE [id number] 19:00:00 Test Item Value Reference Range Comments STREP PNEUMONIAE ANTIGEN Presumptive negative for Presumptive negative for (BEAKER) (test pneumococcal pneumonia - pneumococcal pneumonia - zhee=1869) see comment see commen Presumptive negative for pneumococcal pneumonia, suggesting no current or recent pneumococcal infection. Infection due to S. pneumoniae cannot be ruled out since the antigen present in the sample may be below the detection limit of the test.LEGIONELLA ANTIGEN, [id number] 18:59:00 Test Item Value Reference Range Comments L. PNEUMOPHILA SEROGP 1 Negative - see Negative for L. UR AG (AKER) (test comment pneumophila serogroup 1 tjko=4580) antigen, suggesting no recent or current infection with this serogroup. Legionellosis cannot be ruled out since other serogroups and species may cause disease. RAD, CHEST, 1 VIEW, NON [id number] 18:51:00Reason for exam:-> hypoxemiaShould this be performed [...] Verified Date/Time : 12/08/2018 18:51:41 Reading Location: [address] Consult Reading Room Electronically signed by: KATIE SALINAS M.D.on 12/08/2018 06:51 PMBLOOD GAS, [id number] 18:41:00 Test Item Value Reference Range Comments PH ARTERIAL (BEAKER) (test lbvh=067) 7.47 7.35-7.45 PCO2 ARTERIAL (BEAKER) (test ngak=822) 35 mmHg 35-45 PO2 ARTERIAL (BEAKER) (test zhrb=343) 97 mmHg 80-90 O2 SATURATION ARTERIAL (BEAKER) (test wiyz=330) 97.8 % 96.0-97.0 HCO3 ARTERIAL (BEAKER) (test iycj=215) 25 mmol/L 21-29 BASE EXCESS ARTERIAL (BEAKER) (test bulz=779) 1.4 mmol/L -2.0-3.0 PATIENT TEMPERATURE (BEAKER) (test cmkg=4279) 37.0 C FIO2 (BEAKER) (test cort=0043) 44.0 % TROPONIN [id number] 18:35:00 Test Item Value Reference Range Comments TROPONIN I (BEAKER) (test rffv=405) 1.24 ng/mL 0.00-0.03 Troponin I (TnI) levels [...] acute neurological disease, and persistent tachyarrhythmia.LACTIC ACID, [id number] 18:17:00 Test Item Value Reference Range Comments LACTATE BLOOD VENOUS (2) 1.6 mmol/L 0.5-2.2 Specimen moderately hemolyzed (BEAKER) (test bjvq=7460) [id number] 18:14:00 Test Item Value Reference Range Comments MAGNESIUM (BEAKER) (test grtb=550) 1.7 mg/dL 1.6-2.6 POCT-GLUCOSE [id number] 18:06:00 Test Item Value Reference Range Comments POC-GLUCOSE METER (BEAKER) 123 mg/dL 70-[address] [facility] [address] (test pzzv=7571) [place] [address] CBC W/PLT COUNT & AUTO [id number] 17:57:00 Test Item Value Reference Range Comments WHITE BLOOD CELL COUNT (BEAKER) (test ducp=519) 11.6 K/ L 3.5-10.5 RED BLOOD CELL COUNT (BEAKER) (test vaxo=772) 4.99 M/ L 4.63-6.08 HEMOGLOBIN (BEAKER) (test mhnn=015) 13.1 GM/DL 13.7-17.5 HEMATOCRIT (BEAKER) (test vnuc=682) 40.1 % 40.1-51.0 MEAN CORPUSCULAR VOLUME (BEAKER) (test kvqu=748) 80.4 fL 79.0-92.2 MEAN CORPUSCULAR HEMOGLOBIN (BEAKER) (test 26.3 pg 25.7-32.2 ibvc=402) MEAN CORPUSCULAR HEMOGLOBIN CONC (BEAKER) (test 32.7 GM/DL 32.3-36.5 kued=571) RED CELL DISTRIBUTION WIDTH (BEAKER) (test 13.8 % 11.6-14.4 tfax=919) PLATELET COUNT (BEAKER) (test aryk=116) 243 K/CU MM 150-450 MEAN PLATELET VOLUME (BEAKER) (test uhcy=312) 10.6 fL 9.4-12.4 NUCLEATED RED BLOOD CELLS (BEAKER) (test 0 /100 WBC 0-0 dipd=870) NEUTROPHILS RELATIVE PERCENT (BEAKER) (test 81 % zemm=601) LYMPHOCYTES RELATIVE PERCENT (BEAKER) (test 8 % vipo=280) MONOCYTES RELATIVE PERCENT (BEAKER) (test 10 % ubob=747) EOSINOPHILS RELATIVE PERCENT (BEAKER) (test 0 % bmnz=657) BASOPHILS RELATIVE PERCENT (BEAKER) (test 1 % tfuq=644) NEUTROPHILS ABSOLUTE COUNT (BEAKER) (test 9.42 K/ L 1.78-5.38 vqdw=557) LYMPHOCYTES ABSOLUTE COUNT (BEAKER) (test 0.87 K/ L 1.32-3.57 taxb=500) MONOCYTES ABSOLUTE COUNT (BEAKER) (test 1.19 K/ L 0.30-0.82 nshg=701) EOSINOPHILS ABSOLUTE COUNT (BEAKER) (test 0.04 K/ L 0.04-0.54 bftn=667) BASOPHILS ABSOLUTE COUNT (BEAKER) (test 0.08 K/ L 0.01-0.08 vihk=192) IMMATURE GRANULOCYTES-RELATIVE PERCENT (BEAKER) 0 % 0-1 (test pqkw=0959)
[2019-01-26] MEDS ORDERED: FAMOTIDINE 20 MG/2 ML VIAL IV ONE (12:24)
[2019-01-26] MEDS ORDERED: LEVALBUTEROL 1.25 MG/3 ML NEB ONE (12:24)
[2019-01-26] MEDS ORDERED: IPRATROPIUM BROM 0.5MG/2.5ML ONE (12:24)
[2019-01-26 12:28] LABS: Absolute Lymphocytes (CBC) 0.4 K/uL (0.7-4.9); Basophils % 0.4 % (0-1.3); Eosinophils % 1.5 % (0-4.4); Lymphocytes % 3.8 % (15.3-44.8); MPV 8.9 fL (7.6-11.3); Monocytes % 5.8 % (3.3-12.3); RBC Red Blood Cell Count 4.42 M/uL (4.33-5.43)
[2019-01-26 12:32] LABS: Protime INR 1.07
--- NOTE | 2019-01-26 12:33 | RAD REPORT ---
EXAM DESCRIPTION: Enio Single View01/26/2019 12:27 pm CLINICAL HISTORY: Cough COMPARISON: January 20, 2019 FINDINGS: Small left pleural effusion with mild left basilar opacity The heart is mildly enlarged. PICC line remains in place Postsurgical changes involve the chest. IMPRESSION: Small left pleural effusion with mild left basilar pneumonia
[2019-01-26 12:42] LABS: Albumin 2.7 g/dL (3.4-5.0); Bilirubin Direct 0.1 mg/dL (0-0.2); Bilirubin Total 0.4 mg/dL (0.2-1.0); Magnesium 2.1 mg/dL (1.8-2.4); Potassium 4.2 mmol/L (3.5-5.1); Protein, Total 6.1 g/dL (6.4-8.2); Troponin (Emerg Dept Use Only) 0.02 ng/mL (0.0-0.045)
[2019-01-26 12:56] LABS: Urine Blood 3+ (NEG); Urine Glucose NEGATIVE (NEG); Urine Protein TRACE (NEG); Urine Specific Gravity 1.025 (1.005-1.030); Urine pH 5.5 (5.0-7.0)
--- NOTE | 2019-01-26 13:39 | EDPHYS ---
Physician Documentation [facility] Name: Massimo Hauser Age: 73 yrs Sex: Male : 1945 Arrival Date: 01/26/2019 Time: 11:12 Bed 4 Private MD: ED Physician Amos Chino HPI: 01/26 11:35 This 73 yrs old Male presents to ER via EMS with complaints of Breathing jessy Difficulty. 11:35 The patient has shortness of breath at rest, with light activity. Onset: The jessy symptoms/episode began/occurred 3 day(s) ago. Duration: The symptoms are continuous, and are steadily getting worse. The patient's shortness of breath is aggravated by coughing, light activity. Associated signs and symptoms: The patient has no apparent associated signs or symptoms. Severity of symptoms: At their worst the symptoms were mild in the emergency department the symptoms are unchanged. The patient has not experienced similar symptoms in the past. Historical: - Allergies: 11:25 CEPHALOSPORINS; iw 11:25 Sulfa (Sulfonamide Antibiotics); iw 11:25 Tetanus Immune Globulin; iw 11:27 CEPHALOSPORINS; ph 11:27 Sulfa (Sulfonamide Antibiotics); ph 11:27 Tetanus Immune Globulin; ph - Home Meds: 11:26 atorvastatin 10 mg Oral tab 1 tab once daily [Active]; Breo Ellipta 200-25 mcg/dose iw inhalation dsdv 1 puff once daily [Active]; Flomax 0.4 mg Oral cp24 once daily [Active]; Incruse Ellipta 62.5 mcg/actuation inhalation dsdv 1 puff once daily [Active]; irbesartan 150 mg Oral tab 1 tab once daily [Active]; Lantus 100 unit/mL Sub-Q soln 20 unit nightly [Active]; metformin 500 mg Oral tab 2 times per day [Active]; Norvasc 10 mg Oral tab once daily [Active]; tramadol 50 mg Oral tab 1 tab every 6 hours [Active]; 11:27 Amiodarone Oral once daily [Active]; aspirin 81 mg Oral TbEC 1 tab once daily [Active]; ph atorvastatin 10 mg Oral tab 1 tab once daily [Active]; Bumetanide Oral [Active]; clopidogrel 75 mg oral tab 1 tab once daily [Active]; Mucinex oral oral [Active]; losartan oral oral [Active]; Magnesium Oxide Oral [Active]; metformin 500 mg Oral tab 2 times per day [Active]; Flomax 0.4 mg Oral cp24 once daily [Active]; Coreg Oral 2 times per day [Active]; Entresto oral oral 2 times per day [Active]; vancomycin intravenous intravenous [Active]; - PMHx: 11:25 COPD; Diabetes - NIDDM; Emphysema; Hypertension; iw 11:27 COPD; Diabetes - NIDDM; Emphysema; Hypertension; ph - PSHx: 11:27 Cardiac Bypass December 2018; ph - Immunization history:: Adult Immunizations unknown. - Social history:: Smoking status: Patient/guardian denies using tobacco. - Ebola Screening: : No symptoms or risks identified at this time. - Family history:: not pertinent. ROS: 11:35 Constitutional: Negative for fever, chills, and weight loss, Eyes: Negative for injury, jessy pain, redness, and discharge, ENT: Negative for injury, pain, and discharge, Neck: Negative for injury, pain, and swelling, Cardiovascular: Negative for chest pain, palpitations, and edema, Abdomen/GI: Negative for abdominal pain, nausea, vomiting, diarrhea, and constipation, Back: Negative for injury and pain, : Negative for injury, bleeding, discharge, and swelling, MS/Extremity: Negative for injury and deformity, Skin: Negative for injury, rash, and discoloration, Neuro: Negative for headache, weakness, numbness, tingling, and seizure, Psych: Negative for depression, anxiety, suicide ideation, homicidal ideation, and hallucinations, Allergy/Immunology: Negative for hives, rash, and allergies, Endocrine: Negative for neck swelling, polydipsia, polyuria, polyphagia, and marked weight changes, Hematologic/Lymphatic: Negative for swollen nodes, abnormal bleeding, and unusual bruising. 11:35 Respiratory: Positive for cough, shortness of breath, wheezing, inspiratory, expiratory. Exam: 11:35 Constitutional: This is a well developed, well nourished patient who is awake, alert, jessy and in no acute distress. Head/Face: Normocephalic, atraumatic. Eyes: Pupils equal round and reactive to light, extra-ocular motions intact. Lids and lashes normal. Conjunctiva and sclera are non-icteric and not injected. Cornea within normal limits. Periorbital areas with no swelling, redness, or edema. ENT: Nares patent. No nasal discharge, no septal abnormalities noted. Tympanic membranes are normal and external auditory canals are clear. Oropharynx with no redness, swelling, or masses, exudates, or evidence of obstruction, uvula midline. Mucous membranes moist. Neck: Trachea midline, no thyromegaly or masses palpated, and no cervical lymphadenopathy. Supple, full range of motion without nuchal rigidity, or vertebral point tenderness. No Meningismus. Chest/axilla: Normal chest wall appearance and motion. Nontender with no deformity. No lesions are appreciated. Cardiovascular: Regular rate and rhythm with a normal S1 and S2. No gallops, murmurs, or rubs. Normal PMI, no JVD. No pulse deficits. Abdomen/GI: Soft, non-tender, with normal bowel sounds. No distension or tympany. No guarding or rebound. No evidence of tenderness throughout. Back: No spinal tenderness. No costovertebral tenderness. Full range of motion. MS/ Extremity: Pulses equal, no cyanosis. Neurovascular intact. Full, normal range of motion. Neuro: Awake and alert, GCS 15, oriented to person, place, time, and situation. Cranial nerves II-XII grossly intact. Motor strength 5/5 in all extremities. Sensory grossly intact. Cerebellar exam normal. Normal gait. Psych: Awake, alert, with orientation to person, place and time. Behavior, mood, and affect are within normal limits. 11:35 Respiratory: mild respiratory distress is noted, Respirations: labored breathing, that is mild, that is moderate, Breath sounds: decreased breath sounds, rhonchi, that are mild, are heard diffusely, wheezing: inspiratory expiratory Vital Signs: 11:20 BP 113 / 55; Pulse 78; Resp 22; Temp 97.8; Pulse Ox 99% on 3 lpm NC; Weight 86.18 kg; ph Height 5 ft. 11 in. (180.34 cm); 12:18 BP 104 / 51; Pulse 86; Resp 17; Pulse Ox 100% on Nebulizer Mask; Pain 0/10; ss 13:33 BP 137 / 77; Pulse 82; Resp 16; Pulse Ox 99% on R/A; Pain 0/10; ss 11:20 Body Mass Index 26.50 (86.18 kg, 180.34 cm) ph MDM: 11:14 Patient medically screened. [facility] 11:37 Data reviewed: vital signs, nurses notes, lab test result(s), EKG, radiologic studies, [facility] CT scan, plain films. 01/26 11:34 Order name: Basic Metabolic Panel; Complete Time: 13:32 [facility] 01/26 11:34 Order name: CBC with Diff [facility] 01/26 11:34 Order name: LFT's; Complete Time: 13:32 [facility] 01/26 11:34 Order name: Magnesium; Complete Time: 13:32 [facility] 01/26 11:34 Order name: NT PRO-BNP; Complete Time: 13:32 [facility] 01/26 11:34 Order name: PT-INR; Complete Time: 13:32 [facility] 01/26 11:34 Order name: Troponin (emerg Dept Use Only); Complete Time: 13:32 [facility] 01/26 11:34 Order name: Blood Culture Adult (2) [facility] 01/26 11:34 Order name: Lipase; Complete Time: 13:32 [facility] 01/26 11:34 Order name: Urine Culture [facility] 01/26 11:34 Order name: Procalcitonin; Complete Time: 13:32 [facility] 01/26 11:34 Order name: Lactate; Complete Time: 13:32 [facility] 01/26 11:50 Order name: Urine Dipstick--Ancillary (enter results); Complete Time: 13:32 01/26 13:50 Order name: CBC Smear Scan [facility] 01/26 11:34 Order name: XRAY Chest (1 view); Complete Time: 13:32 [facility] 01/26 11:34 Order name: EKG; Complete Time: 11:38 [facility] 01/26 11:34 Order name: Cardiac monitoring; Complete Time: 11:37 [facility] 01/26 11:34 Order name: EKG - Nurse/Tech; Complete Time: 12:12 [facility] 01/26 11:34 Order name: IV Saline Lock; Complete Time: 11:37 [facility] 01/26 11:34 Order name: Labs collected and sent; Complete Time: 12:12 [facility] 01/26 11:34 Order name: O2 Per Protocol; Complete Time: 11:37 [facility] 01/26 11:34 Order name: O2 Sat Monitoring; Complete Time: 11:37 [facility] 01/26 11:34 Order name: Urine Dipstick-Ancillary (obtain specimen); Complete Time: 11:37 jessy Administered Medications: 11:36 Not Given (Administered by EMS): SOLU-Medrol 125 mg IVP once ph 12:15 Drug: Pepcid 20 mg Route: IVP; Site: left forearm; ss 14:22 Follow up: Response: No adverse reaction ss 12:17 Drug: Xopenex 3.75 mg Route: Inhalation; ss 12:17 Drug: AtroVENT Aerosol 0.5 mg Route: Inhalation; ss 14:21 Drug: Lasix 20 mg Route: IVP; Site: left forearm; ss 14:22 Follow up: Response: No adverse reaction ss 14:23 Not Given (CANCEL per Dr. Chavez): Azactam 1 grams IVPB once over 30 mins; (mix in 100 ss mL NS) Disposition: 01/26/19 14:08 Discharged to Home. Impression: Dyspnea. - Condition is Fair. - Discharge Instructions: Chronic Obstructive Pulmonary Disease, Community-Acquired Pneumonia, Adult. - Prescriptions for Xopenex 1.25 mg/3 mL Inhalation Solution for Nebulization - inhale 1 unit by NEBULIZATION route every 8 hours As needed; 1 box. - Medication Reconciliation Form, Thank You Letter, Antibiotic Education, Prescription Opioid Use form. - Follow up: Marcos Lerner MD; When: 1 - 2 days; Reason: Re-evaluation by your physician. - Problem is chronic. - Symptoms have improved. Signatures: Dispatcher [employer] EDMS Amos Chino MD MD cha Williams, Irene, RN RN Abbi Rivera RN RN ss Hall, Patricia, RN RN ph Patel, Ruchita, MD MD rp3 Corrections: (The following items were deleted from the chart) 13:48 13:37 Hospitalization Ordered by Uvaldo Schreiber MD for Inpatient Admission. Preliminary jessy diagnosis is Dyspnea; Unspecified combined systolic (congestive) and diastolic (congestive) heart failure; Pneumonia due to other specified bacteria; Pleural effusion in conditions classified elsewhere; Type 2 diabetes mellitus. Bed requested for Telemetry/MedSurg (Inpatient). Status is Inpatient Admission. Condition is Fair. Problem is new. Symptoms have improved. UTI on Admission? No. jessy 14:07 13:48 01/26/2019 13:37 Hospitalization Ordered by Selena Chavez MD for Inpatient rp3 Admission. Preliminary diagnosis is Dyspnea; Unspecified combined systolic (congestive) and diastolic (congestive) heart failure; Pneumonia due to other specified bacteria; Pleural effusion in conditions classified elsewhere; Type 2 diabetes mellitus. Bed requested for Telemetry/MedSurg (Inpatient). Status is Inpatient Admission. Condition is Fair. Problem is new. Symptoms have improved. UTI on Admission? No. jessy 15:50 14:08 01/26/2019 14:08 Discharged to Home. Impression: Dyspnea. Condition is Fair. ss Forms are Medication Reconciliation Form, Thank You Letter, Antibiotic Education, Prescription Opioid Use. Follow up: Marcos Lerner; When: 1 - 2 days; Reason: Re-evaluation by your physician. Problem is chronic. Symptoms have improved. rp3
--- NOTE | 2019-01-26 13:39 | ER ---
Nurse's Notes [facility] Name: Massimo Hauser Age: 73 yrs Sex: Male : 1945 Arrival Date: 01/26/2019 Time: 11:12 Bed 4 Private MD: Diagnosis: Dyspnea Presentation: 01/26 11:16 Presenting complaint: EMS states: SOB x 3-4 days, recently hospitalized for pneumonia, ph d/c Sat, Spo2 100% on home oxygen at 3L, pt also reports chest discomfort, hx of bypass and heart sx December 15. Transition of care: patient was not received from another setting of care. Onset of symptoms was January 26, 2019. Risk Assessment: Do you want to hurt yourself or someone else? Patient reports no desire to harm self or others. Initial Sepsis Screen: Does the patient meet any 2 criteria? No. Patient's initial sepsis screen is negative. Does the patient have a suspected source of infection? No. Patient's initial sepsis screen is negative. Care prior to arrival: Medication(s) given: Albuterol Neb x 1, Atrovent Neb x 3, Solu-Medrol 125 mg IV initiated. 20 GA, in the left forearm. 11:16 Method Of Arrival: EMS: [facility] 11:16 Acuity: CHEO 3 ph Triage Assessment: 11:28 General: Appears in no apparent distress. uncomfortable, well groomed, Behavior is ph calm, cooperative, appropriate for age, Denies fever. Pain: Complains of pain in chest. Neuro: Level of Consciousness is awake, alert, obeys commands, Oriented to person, place, time, situation. Cardiovascular: Reports chest pain, shortness of breath, Denies lightheadedness, nausea, palpitations, vomiting, Capillary refill < 3 seconds in bilateral fingers Patient's skin is warm and dry. Rhythm is irregular Chest pain is described as mild, quality is "sore" is located in right left anterior chest wall is aggravated by breathing. Respiratory: Reports shortness of breath at rest Airway is patent Respiratory effort is labored, Respiratory pattern is tachypnea Onset: The symptoms/episode began/occurred "3-4 days ago", the patient has moderate shortness of breath. GI: Patient currently denies abdominal pain, nausea, vomiting. Derm: Skin is healthy with good turgor, Skin is pink, warm \\T\\ dry. surgical scars noted to chest, healthy in appearance, hx of bypass December 15. Musculoskeletal: Circulation, motion, and sensation intact. Range of motion: intact in all extremities. Historical: - Allergies: 11:25 CEPHALOSPORINS; iw 11: Sulfa (Sulfonamide Antibiotics); iw 11: Tetanus Immune Globulin; iw 11: CEPHALOSPORINS; ph 11: Sulfa (Sulfonamide Antibiotics); ph 11: Tetanus Immune Globulin; ph - Home Meds: 11: atorvastatin 10 mg Oral tab 1 tab once daily [Active]; Breo Ellipta 200-25 mcg/dose iw inhalation dsdv 1 puff once daily [Active]; Flomax 0.4 mg Oral cp24 once daily [Active]; Incruse Ellipta 62.5 mcg/actuation inhalation dsdv 1 puff once daily [Active]; irbesartan 150 mg Oral tab 1 tab once daily [Active]; Lantus 100 unit/mL Sub-Q soln 20 unit nightly [Active]; metformin 500 mg Oral tab 2 times per day [Active]; Norvasc 10 mg Oral tab once daily [Active]; tramadol 50 mg Oral tab 1 tab every 6 hours [Active]; 11: Amiodarone Oral once daily [Active]; aspirin 81 mg Oral TbEC 1 tab once daily [Active]; ph atorvastatin 10 mg Oral tab 1 tab once daily [Active]; Bumetanide Oral [Active]; clopidogrel 75 mg oral tab 1 tab once daily [Active]; Mucinex oral oral [Active]; losartan oral oral [Active]; Magnesium Oxide Oral [Active]; metformin 500 mg Oral tab 2 times per day [Active]; Flomax 0.4 mg Oral cp24 once daily [Active]; Coreg Oral 2 times per day [Active]; Entresto oral oral 2 times per day [Active]; vancomycin intravenous intravenous [Active]; - PMHx: 11:25 COPD; Diabetes - NIDDM; Emphysema; Hypertension; iw 11:27 COPD; Diabetes - NIDDM; Emphysema; Hypertension; ph - PSHx: 11:27 Cardiac Bypass December 2018; ph - Immunization history:: Adult Immunizations unknown. - Social history:: Smoking status: Patient/guardian denies using tobacco. - Ebola Screening: : No symptoms or risks identified at this time. - Family history:: not pertinent. Screenin:36 Abuse screen: Denies threats or abuse. Denies injuries from another. Nutritional ph screening: No deficits noted. Tuberculosis screening: No symptoms or risk factors identified. Fall Risk None identified. Assessment: 11:15 General: Appears distressed, uncomfortable, Behavior is calm, cooperative, Reports ss feeling ill for > 3 days, Denies fever. Pain: Denies pain. Neuro: Level of Consciousness is awake, alert, obeys commands, Oriented to person, place, time, situation. Cardiovascular: Capillary refill < 3 seconds is brisk in bilateral fingers Patient's skin is warm and dry. Cardiovascular: Pulses are palpable in right radial artery and left radial artery. Cardiovascular: Reports shortness of breath. Cardiovascular: Heart tones S1 S2 present Rhythm is atrial flutter. Respiratory: Airway is patent Respiratory effort is even, labored, Respiratory pattern is regular, symmetrical, Breath sounds are diminished bilaterally. GI: Abdomen is non-distended, Patient currently denies diarrhea, nausea, vomiting. : No signs and/or symptoms were reported regarding the genitourinary system. EENT: Nares are clear Oral mucosa is dry. Derm: Skin is intact, is healthy with good turgor, Skin is dry, Skin is pale. Musculoskeletal: Circulation, motion, and sensation intact. Range of motion: intact in all extremities, Swelling absent. 12:30 Reassessment: Patient appears in no apparent distress at this time. Patient and/or ss family updated on plan of care and expected duration. Pain level reassessed. Patient is alert, oriented x 3, equal unlabored respirations, skin warm/dry/pink. Patient states feeling better. Respiratory: Airway is patent Respiratory effort is even, unlabored, Respiratory pattern is regular, symmetrical. 13:27 Reassessment: awaiting disposition. at bedside. Call light remains within reach. ss 14:22 Reassessment: Dr. Chavez at bedside discussing discharge planning with patient and . ss 14:52 Reassessment: awaiting for to return from home ([employer]) with portable O2 ss machine prior to patient being discharged. Vital Signs: 11:20 BP 113 / 55; Pulse 78; Resp 22; Temp 97.8; Pulse Ox 99% on 3 lpm NC; Weight 86.18 kg; ph Height 5 ft. 11 in. (180.34 cm); 12:18 BP 104 / 51; Pulse 86; Resp 17; Pulse Ox 100% on Nebulizer Mask; Pain 0/10; ss 13:33 BP 137 / 77; Pulse 82; Resp 16; Pulse Ox 99% on R/A; Pain 0/10; ss 11:20 Body Mass Index 26.50 (86.18 kg, 180.34 cm) ph ED Course: 11:12 Patient arrived in ED. iw 11:14 Amos Chino MD is Attending Physician. jessy 11:15 Patient has correct armband on for positive identification. Placed in gown. Bed in low ss position. Call light in reach. Side rails up X2. engine monitor on. Pulse ox on. NIBP on. 11:15 Accessed PICC line. Clean \\T\\ dry. Dressing intact. Good blood return. Flushes easily. ss Maintain EMS IV. Gauge \\T\\ site: 20 gauge in L FA. Oxygen administration via nasal cannula \\T\\ 4L/min. 11:16 Zaira Cage RN is Primary Nurse. ph 11:20 Triage completed. ph 11:35 Arm band placed on Patient placed in an exam room, on a stretcher, on oxygen, on ph classroom monitor, on pulse oximetry. 12:27 X-ray completed. Portable x-ray completed in exam room. Patient tolerated procedure jb2 well. 12:29 XRAY Chest (1 view) In Process Unspecified. EDMS 13:36 Uvaldo Schreiber MD is Hospitalizing Provider. jessy 13:48 Selena Chavez MD is Hospitalizing Provider. jessy 14:07 Marcos Lerner MD is Referral Physician. rp3 14:31 Selena Chavez MD advertising project manager. rp3 14:51 No provider procedures requiring assistance completed. IV discontinued, intact, ss bleeding controlled, No redness/swelling at site. Pressure dressing applied. Administered Medications: 11:36 Not Given (Administered by EMS): SOLU-Medrol 125 mg IVP once ph 12:15 Drug: Pepcid 20 mg Route: IVP; Site: left forearm; ss 14:22 Follow up: Response: No adverse reaction ss 12:17 Drug: Xopenex 3.75 mg Route: Inhalation; ss 12:17 Drug: AtroVENT Aerosol 0.5 mg Route: Inhalation; ss 14:21 Drug: Lasix 20 mg Route: IVP; Site: left forearm; 14:22 Follow up: Response: No adverse reaction 14:23 Not Given (CANCEL per Dr. Chavez): Azactam 1 grams IVPB once over 30 mins; (mix in 100 ss mL NS) Outcome: 13:37 Decision to Hospitalize by Provider. [facility] 14:08 Discharge ordered by . rp3 14:51 Condition: improved 14:51 Discharge instructions given to patient, family, Instructed on discharge instructions, follow up and referral plans. medication usage, Demonstrated understanding of instructions, follow-up care, medications, Prescriptions given X 1. 15:50 Discharged to home via wheelchair, with family. ss 15:50 Patient left the ED. ss Signatures: Dispatcher [employer] EDAmos Mathews MD MD cha Buechter, Jesse jb2 Karen Marcelo RN RN Abbi Rivera RN RN ss Hall, Patricia, RN RN ph Patel, Ruchita, MD MD rp3
[2019-01-26 13:47] LABS: Anisocytosis 1+; Blood Morphology Comment NOTED (NOT SEEN); Platelet Estimate ADEQ; Urine White Blood Cell Casts OK
[2019-01-26 13:48] LABS: Elliptocytes 1+; Poikilocytosis 1+
[2019-01-26] MEDS ORDERED: FUROSEMIDE 20 MG/ 2ML VIAL ONE (14:14)
[2019-01-26] MEDS ORDERED: AZTREONAM 1 GM in NA CHLORIDE 0.9% 50 ML IV ONE (14:15)
--- NOTE | 2019-01-26 15:16 | EKG ---
Test Date: 2019-01-26 Test Time: 11:29:51 Rod Hanger: [facility] MEASUREMENT RESULTS: Intervals: Rate: 77 ME: QRSD: 152 QT: 482 QTc: [address] [place]: P: 251 ME: QRS: -71 T: 108 INTERPRETIVE STATEMENTS: Atrial flutter with variable AV block Left anterior fascicular block Right bundle branch block cannot rule out inferior infarct, masked by fascicular block T wave abnormality, consider lateral ischemia Abnormal ECG Compared to ECG 01/21/2019 04:41:36 Sinus rhythm no longer present T-wave abnormality still present Electronically Signed On 01-26-19 15:17:51 CDT by Ric Hudson
[2019-01-26 16:44] VITALS: TEMP 97.8
[2019-01-26 16:47] VITALS: BP 137/77; O2SAT 99
== END 2019-01-26 15:50 | disposition home or self-care (01) ==
LOC: ER 11:14
DX: J18.9 Pneumonia, unspecified organism (principal); J44.9 Chronic obstructive pulmonary disease, unspecified; I10 Essential (primary) hypertension; E11.9 Type 2 diabetes mellitus without complications; Z79.82 Long term (current) use of aspirin; Z79.4 Long term (current) use of insulin; Z88.3 Allergy status to other anti-infective agents
CPT/HCPCS: 93005; 87040 ×2; 87088; 85025; 87086; 80048; 36415; 83735; 85610; 80076; 83605; 81003; 84484; 83690; 84145; 83880; 71045; 96375; 96374; 99285; J1940

== ENCOUNTER 2019-01-28 09:15 | Inpatient (IN) | payer MEDICARE ==
--- OUTSIDE RECORDS SUMMARY | 2019-01-28 09:26 | XMS REPORT | Clinical Summary ---
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 EXTERMINATION INSPECTOR - 12/02/2018 10:53 AM CDT Airway Date/Time: [...] GLUCOSE Routine 12/02/2018 9:15 AM CDT after 01/27/2018 Results Surgical pathology request (12/02/2018 1:17 PM CDT) [facility] DEPARTMENT OF PATHOLOGY AND GENOMIC MEDICINE Surgical pathology See link below [facility] DEPARTMENT OF report for PDF Lab PATHOLOGY AND Report GENOMIC MEDICINE Result status This is Final [facility] DEPARTMENT OF Report for PATHOLOGY AND [id number] GENOMIC MEDICINE Specimen Narrative Performed At [id number] [facility] DEPARTMENT OF PATHOLOGY AND GENOMIC MEDICINE [place] Performing Organization Address [facility] Phone Number [facility] DEPARTMENT OF PATHOLOGY AND [address] [place] [id number] GENOMIC MEDICINE Cytology (non-gynecological) request (12/02/2018 12:54 PM CDT) [facility] DEPARTMENT OF PATHOLOGY AND GENOMIC MEDICINE Cytology See link below [facility] DEPARTMENT OF (non-gynecological) for PDF Lab PATHOLOGY AND report Report GENOMIC MEDICINE Result status This is Final [facility] DEPARTMENT OF Report for PATHOLOGY AND [id number] GENOMIC MEDICINE Specimen Performing Organization Address [facility] Phone Number [facility] DEPARTMENT OF PATHOLOGY AND [address] [place] [id number] GENOMIC MEDICINE POC glucose (12/02/2018 11:37 AM CDT)Only the most recent of2 resultswithin the time period is included. Pathologist [facility] POC glucose 124 (H) 65 - 99 mg/dL PONY SIKHISM Comment: [facility] Notified RN Meter ID: [id number] Manager Study: Edmund Moncada Specimen Performing Organization Address City/State/Zipcode Phone Number [facility] DEPARTMENT OF PATHOLOGY AND [address] [place] [address] [facility] [address] [place] [address] [place] Pyelogram Retrograde (12/02/2018 11:25 AM CDT) [...] provider for procedure details. Performing Organization Address City/[facility]/Zipcode Phone Number [facility] [address] [place] [address] Calculi analysis with photo (12/02/2018 11:09 AM [...] REF LAB analysis and photo Comment: Access [facility] Enhanced Report using either link below: -Direct access: [email or web address] -Enter Username, Password: [email or web address] Username: [email or web address] Password: [email or web address] Performed by [facility], [address] [place] [address] www.[email or web address], Walker Larkin MD - Lab. Director Specimen Serum Narrative Performed At [id number] [facility] [place] Performing Organization Address City/State/Zipcode Phone Number [facility] [address] [place] [address] [facility] [address] [place] [address] after 01/27/2018 Advance Directives Patient has advance care planning documents on file. For more information, please contact:Jose Miguel Garces[address] [facility] [place] [address]
--- OUTSIDE RECORDS SUMMARY | 2019-01-28 09:27 | XMS REPORT | Clinical Summary ---
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, unspecified vessel or lesion type, unspecified whether [place] or transplanted heart (HCC) Special Needs (ICU [...] 404 ms QTC Calculation(Bazett) 499 ms P [place] 80 degrees R [place] -75 degrees T [place] 88 degrees Sinus rhythm with Premature supraventricular [...] 424 ms QTC Calculation(Bazett) 549 ms P [place] 83 degrees R [place] -75 degrees T [place] 89 degrees Sinus tachycardia Left axis deviation [...] 394 ms QTC Calculation(Bazett) 510 ms P [place] 80 degrees R [place] -68 degrees [place] 98 degrees Sinus tachycardia Left axis deviation [...] 350 ms QTC Calculation(Bazett) 477 ms P [place] 73 degrees R [place] -62 degrees T [place] 97 degrees Sinus tachycardia Left axis deviation [...] 406 ms QTC Calculation(Bazett) 606 ms P [place] 31 degrees R [place] -64 degrees T [place] 93 degrees Sinus tachycardia with frequent Premature [...] procedure are in the results section. after 01/27/2018 Results RHYTHM STRIP - SCAN (01/05/2019 3:41 [...] (H)Comment: TESTED AT 70 - 110 mg/dL [address] [address] Specimen Blood Performing Organization Address City/[facility]/Zipcode Phone Number [address] [address] [place] Magnesium (01/01/2019 7:58 AM CDT)Only the most recent of39 resultswithin the time period is included. Magnesium 2.0 1.6 - 2.6 mg/dL [facility] Specimen Blood Performing Organization Address City/[facility]/Zipcode Phone Number [address] [address] CENTER Basic Metabolic Panel (01/01/2019 7:58 AM CDT)Only the most recent of30 resultswithin the time period is included. Sodium 142 136 - 145 meq/L [facility] Potassium 4.6 3.5 - 5.1 meq/L [facility] Chloride 102 98 - 107 meq/L [facility] CO2 33 (H) 22 - 29 meq/L [facility] BUN 21 7 - 21 mg/dL [facility] Creatinine 1.30 (H) 0.57 - 1.25 mg/dL [facility] Glucose 126 (H) 70 - 105 mg/dL [facility] Calcium 9.3 8.4 - 10.2 mg/dL [facility] EGFR 54Comment: ESTIMATED GFR IS mL/min/1.73 sq m [facility] NOT ACCURATE CREATININE [facility] CENTER CLEARANCE IN PREDICTING GLOMERULAR FILTRATION RATE. ESTIMATED GFR IS NOT APPLICABLE FOR DIALYSIS PATIENTS. Specimen Blood Performing Organization Address City/[facility] Phone Number [address] [address] CENTER B-type Natriuretic Factor (BNP) (01/01/2019 4:51 AM CDT)Only the most recent of6 resultswithin the time period is included. BNP 1,150 (H) 0 - 100 pg/mL [facility] Specimen Blood Performing Organization Address City/[facility] Phone Number [address] [address] [phone] CENTER CBC (Hemogram only) (12/30/2018 6:06 AM CDT)Only the most recent of17 resultswithin the time period is included. WBC 6.6 3.5 - 10.5 K/L [facility] RBC 3.42 (L) 4.63 - 6.08 M/L [facility] Hemoglobin 8.8 (L) 13.7 - 17.5 GM/DL [facility] Hematocrit 29.2 (L) 40.1 - 51.0 % [facility] MCV 85.4 79.0 - 92.2 fL [facility] MCH 25.7 25.7 - 32.2 pg [facility] MCHC 30.1 (L) 32.3 - 36.5 GM/DL [facility] RDW 14.9 (H) 11.6 - 14.4 % [facility] Platelets 233 150 - 450 K/CU MM [facility] MPV 10.6 9.4 - 12.4 fL [facility] nRBC 0 0 - 0 /100 WBC [facility] Specimen Blood Performing Organization Address City/State/Zipcode Phone Number [facility] [address] [place] [address] [phone] CENTER XR chest 1 view portable / bedside (12/26/2018 4:20 PM CDT)Only the most recent of16 resultswithin the time period is included. Specimen Narrative Performed At FINAL REPORT [facility] Chest x-ray Clinical History: s/p acb [...] MD Report Verified Date/Time:12/26/2018 16:41:43 Reading Location: [facility] Radiology Reading Room Procedure Note Interface, External [...] Report Verified Date/Time: 12/26/2018 16:41:43 Reading Location: [facility] Radiology Reading Room Performing Organization Address City/[facility] Phone Number GE RIS Calcium, Ionized (12/25/2018 2:35 AM CDT)Only the most recent of16 resultswithin the time period is included. Calcium, Ion 1.11 (L) 1.12 - 1.27 mmol/L [facility] pH, Blood 7.45 [facility] Specimen Blood Performing Organization Address City/[facility]/Zipcode Phone Number [facility] [address] [place] [address] CENTER CBC with platelet count + automated diff (12/25/2018 2:35 AM CDT)Only the most recent of5 resultswithin the time period is included. WBC 8.0 3.5 - 10.5 K/L [facility] RBC 3.28 (L) 4.63 - 6.08 M/L [facility] Hemoglobin 8.5 (L) 13.7 - 17.5 GM/DL [facility] Hematocrit 27.4 (L) 40.1 - 51.0 % [facility] MCV 83.5 79.0 - 92.2 fL [facility] MCH 25.9 25.7 - 32.2 pg [facility] MCHC 31.0 (L) 32.3 - 36.5 GM/DL [facility] RDW 14.6 (H) 11.6 - 14.4 % [facility] Platelets 267 150 - 450 K/CU MM [facility] MPV 10.9 9.4 - 12.4 fL [facility] nRBC 0 0 - 0 /100 WBC [facility] % Neutros 73 % [facility] % Lymphs 15 % [facility] % Monos 9 % [facility] % Eos 2 % [facility] % Baso 1 % [facility] # Neutros 5.81 (H) 1.78 - 5.38 K/L [facility] # Lymphs 1.20 (L) 1.32 - 3.57 K/L [facility] # Monos 0.69 0.30 - 0.82 K/L [facility] # Eos 0.16 0.04 - 0.54 K/L [facility] # Baso 0.05 0.01 - 0.08 K/L [facility] Immature Granulocytes-Relative 1 0 - 1 % [facility] Specimen Blood Performing Organization Address City/State/Zipcode Phone Number [facility] [address] [place] [phone] CENTER aPTT (12/25/2018 2:35 AM CDT)Only the most recent of21 resultswithin the time period is included. PTT 38.2 (H) 22.5 - 36.0 seconds [facility] Specimen Blood Performing Organization Address City/[facility]/Zipcode Phone Number [address] [address] [phone] CENTER Potassium (12/24/2018 6:42 PM CDT)Only the most recent of9 resultswithin the time period is included. Potassium 4.5 3.5 - 5.1 meq/L [facility] Specimen Blood Performing Organization Address [facility] Phone Number [address] [address] [phone] CENTER Phosphorus (12/24/2018 3:58 AM CDT)Only the most recent of18 resultswithin the time period is included. Phosphorus 4.0Comment: Specimen slightly 2.3 - 4.7 mg/dL [facility] hemolyzed [facility] Specimen Blood Performing Organization Address [facility] Hospital[facility] Phone Number [address] [address] [place] Sputum Culture + Gram Stain (12/23/2018 10:13 PM CDT)Only the most recent of3 resultswithin the time period is included. Result 4+ Normal respiratory deandra [facility] Gram Stain Result <1+ White blood cells seen [facility] Gram Stain Result 0-5 epithelial cells [facility] Gram Stain Result <1+ yeast [facility] Specimen Sputum - Expectorated Performing Organization Address [facility] Phone Number [address] [address] [place] Lactic acid, venous (12/23/2018 7:44 PM CDT)Only the most recent of3 resultswithin the time period is included. Lactate, Venous 0.9Comment: Specimen 0.5 - 2.2 mmol/L [facility] slightly hemolyzed [facility] Specimen Blood Performing Organization Address [facility] Phone Number [address] [address] [phone] CENTER Blood culture (12/23/2018 5:27 PM CDT)Only the most recent of3 resultswithin the time period is included. Result No growth in 5 days [facility] Specimen Blood Performing Organization Address City/[facility] Phone Number [address] [address] CENTER Procalcitonin (12/23/2018 5:26 PM CDT)Only the most recent of2 resultswithin the time period is included. Procalcitonin <0.05 <0.05 ng/mL [facility] Specimen Blood Narrative Performed At SEPSIS RISK (ng/mL) [facility] Low:0.05-0.50 Intermediate: 0.51-2.00 High: >=2.01 Performing Organization Address [facility] Phone Number [address] [address] [phone] [place] Hemoglobin and hematocrit (12/23/2018 5:26 PM CDT) Hemoglobin 8.0 (L) 13.7 - 17.5 GM/DL [facility] Hematocrit 25.8 (L) 40.1 - 51.0 % [facility] Specimen Blood Performing Organization Address City/[facility] Phone Number [address] [address] [phone] [place] Hepatic function panel (12/23/2018 5:25 PM CDT) Protein, Total 5.9 (L) 6.0 - 8.3 gm/dL [facility] Albumin 3.2 (L) 3.5 - 5.0 g/dL [facility] Total Bilirubin 0.3 0.2 - 1.2 mg/dL [facility] Bilirubin, Direct 0.2 0.1 - 0.5 mg/dL [facility] Alkaline Phosphatase 50 40 - 150 U/L [facility] AST 13 5 - 34 U/L [facility] ALT 24 6 - 55 U/L [facility] Specimen Blood Performing Organization Address [facility] Phone Number [address] [address] [phone] CENTER ECG 12 lead (12/21/2018 8:55 AM CDT)Only the most recent of7 resultswithin the time period is included. Specimen Narrative Performed At Ventricular Rate 136 BPM GE MUSE Atrial Rate 136 BPM P-R Interval 134 ms QRS Duration 142 ms Q-T Interval 332 ms QTC Calculation(Bazett) 499 ms P [place] 85 degrees R [place] -71 degrees T [place] 103 degrees Most probablySinus tachycardia Left anterior [...] 332 ms QTC Calculation(Bazett) 499 ms P [place] 85 degrees R [place] -71 degrees T [place] 103 degrees Most probably Sinus tachycardia Left anterior fascicular block Right bundle branch block Inferior infarct , age undetermined Mild ST elelvation inferior leads + ST depression and T wave inversion in the anterolateral leads: STEMI? aneurysm? Iaschemia? Prolonged QT Abnormal ECG 16 DEC 2018 No significant changes Confirmed by MD GROSS YOCHAI ([id number]) on 12/22/2018 6:28:34 AM Performing Organization Address [facility] Phone Number [facility] ECHOCARDIOGRAM REPORT - SCAN (12/20/2018 9:20 PM CDT) Narrative Performed At Potassium-Stat Lab (12/20/2018 3:35 AM CDT)Only the most recent of9 resultswithin the time period is included. Potassium 3.6 3.6 - 5.5 meq/L [facility] Specimen Blood, Arterial Performing Organization Address [facility] Phone Number [facility] [address] [address] [phone] CENTER 2D Echo W/Doppler(CW/PW/Color) (12/19/2018 6:14 PM CDT) Ejection Fraction [facility] ECHO HEART[facility] Specimen Narrative Performed At Transthoracic Echocardiography Report (TTE) [facility] ECHO [facility]ART[facility] Demographics Patient Name TERESA,Date of Study 12/19/[address] [id number] GenderMale Visit Number [id number] Unknown [id number] Room Number C824 Number Date of Birth1945Referring Physician Alecia Rodriguez Age73 year(s)Event Specialist Lidia Desai [facility] AnalystIzofidel MuñizpreRey Evans, Physician MD Angie [...] 12/19/[address] Gender Male Visit Number [id number] Race Unknown Room Number C824 Number Date of 1945 Referring Physician Alecia Rodriguez Age 73 year(s) Event Specialist Lidia Desai CS Enrollment Specialist Nery Núñez Interpreting Jaron Evans, Physician MD [...] TR Gradient: 25.23 mmHg Performing Organization Address City/[facility] Phone Number [facility] E[facility]ART[facility] Blood gas, arterial (12/18/2018 7:23 AM CDT)Only the most recent of14 resultswithin the time period is included. pH, Arterial 7.46 (H) 7.35 - 7.45 [facility] pCO2, Arterial 37 35 - 45 mmHg [facility] pO2, Arterial 69 (L) 80 - 90 mmHg [facility] O2 Sat, Arterial 94.8 (L) 96.0 - 97.0 % [facility] HCO3, Arterial 26 21 - 29 mmol/L [facility] Base Excess, Arterial 1.8 -2.0 - 3.0 mmol/L [facility] Patient Temperature 37.0 C [facility] FIO2 40.0 % [facility] Specimen Blood, Arterial Performing Organization Address [facility] Phone Number [address] [address] [place] PULMONARY FUNCTION - SCAN (12/17/2018 8:50 AM CDT) Narrative Performed At Oxygen saturation, measured (12/17/2018 3:09 AM CDT)Only the most recent of7 resultswithin the time period is included. O2 Saturation (Measured) 58.0 % [facility] Specimen Blood Performing Organization Address City/[facility] Phone Number [facility] [address] [place] [address] [phone] CENTER Sodium Na-Stat Lab (12/16/2018 9:37 PM CDT)Only the most recent of8 resultswithin the time period is included. Sodium 135 135 - 148 meq/L [facility] Specimen Blood, Arterial Performing Organization Address [facility] Phone Number [address] [address] [phone] [place] Glucose-Stat Lab (12/16/2018 9:37 PM CDT)Only the most recent of8 resultswithin the time period is included. Glucose 220 (H) 70 - 110 mg/dL [facility] Specimen Blood, Arterial Performing Organization Address [facility] Phone Number [address] [address] [place] HGB/HCT (H&H)-Stat Lab (12/16/2018 9:37 PM CDT)Only the most recent of8 resultswithin the time period is included. Hemoglobin 11.4 (L) 13.0 - 16.8 g/dL [facility] Hematocrit 34.0 (L) 40.0 - 50.0 % [facility] Specimen Blood, Arterial Performing Organization Address [facility] Phone Number [address] [address] [place] TRANSFUSION SERVICE REPORT - SCAN (12/16/2018 5:54 PM CDT) Narrative Performed At Lactic Acid, Arterial (12/16/2018 7:13 AM CDT)Only the most recent of4 resultswithin the time period is included. Lactate, Art 0.9Comment: Specimen 0.5 - 2.2 mmol/L [facility] slightly hemolyzed [facility] Specimen Blood, Arterial Performing Organization Address [facility] Phone Number [address] [address] [place] Glucose-STAT (12/15/2018 11:01 PM CDT) Glucose 131 (H) 70 - 105 mg/dL [facility] Specimen Blood Performing Organization Address City/[facility]/Zipcode Phone Number [facility] [address] [place] [address] [phone] CENTER PERIPHERAL VASCULAR REPORT - SCAN (12/15/2018 9:10 PM CDT) Narrative Performed At Prepare RBC (12/15/2018 2:33 PM CDT) CROSSMATCH COMPATIBLE SAFETRACE TX Unit ABO O Pos SAFETRACE TX UNIT NUMBER [id number] SAFETRACE TX Status RETURNED FROM ISSUE SAFETRACE TX Blood Bank Product RED BLOOD CELLS SAFETRACE TX PRODUCT CODE [id number] SAFETRACE TX CROSSMATCH COMPATIBLE SAFETRACE TX Unit ABO O Pos SAFETRACE TX UNIT NUMBER [id number] SAFETRACE TX Status RETURNED FROM ISSUE SAFETRACE TX Blood Bank Product RED BLOOD CELLS SAFETRACE TX PRODUCT CODE [id number] SAFETRACE TX CROSSMATCH COMPATIBLE SAFETRACE TX Unit ABO O Pos SAFETRACE TX UNIT NUMBER [id number] SAFETRACE TX Status RETURNED FROM ISSUE SAFETRACE TX Blood Bank Product RED BLOOD CELLS SAFETRACE TX PRODUCT CODE [id number] SAFETRACE TX CROSSMATCH COMPATIBLE SAFETRACE TX Unit ABO O Pos SAFETRACE TX UNIT NUMBER [id number] SAFETRACE TX Status RETURNED FROM ISSUE SAFETRACE TX Blood Bank Product RED BLOOD CELLS SAFETRACE TX PRODUCT CODE [id number] SAFETRACE TX Performing Organization Address City/[facility]/Zipcode Phone Number SAFETRACE TX Manual Differential (12/15/2018 2:05 PM CDT) % Neutros 93 % [facility] % Lymphs 2 % [facility] % Monos 2 % [facility] % Myelo 1 (H) 0 - 0 % [facility] % Bands 2 0 - 10 % [facility] # Neutros 20.93 (H) 1.78 - 5.38 K/ul [facility] # Lymphs 0.45 (L) 1.32 - 3.57 K/ul [facility] # Monos 0.45 0.30 - 0.82 K/uL [facility] # Myelo 0.23 (H) 0.00 - 0.00 K/uL [facility] # Bands 0.45 0.00 - 0.80 K/uL [facility] Total Counted 100 [facility] WBC Morphology Normal [facility] Platelet Morphology Normal [facility] Anisocytosis 2+ moderate [facility] Microcytes 2+ moderate [facility] Poikilocytes 1+ few [facility] Elliptocytes 1+ few [facility] Artifact Present [facility] Platelet Conc Adequate [facility] Specimen Blood Narrative Performed At Received comment: [facility] User comments: Slide comments: Performing Organization Address City/[facility]/Zipcode Phone Number [address] [address] [phone] [place] POC ACTIVATED CLOTTING TIME (12/15/2018 11:54 AM CDT)Only the most recent of5 resultswithin the time period is included. Activated Clotting Time 114Comment: TESTED AT sec [address] [address] Specimen Blood Performing Organization Address City/[facility]/Zipcode Phone Number [facility] [address] [place] [address] [phone] [place] Prothrombin time/INR (12/15/2018 11:49 AM CDT) Protime 17.7 (H) 11.9 - 14.2 seconds [facility] INR 1.5 <=5.9 [facility] Specimen Blood Narrative Performed At Effective 12/03/2018: PT Reference Range [facility] Change New: 11.9-14.2Previous: 11.7-14.7 RECOMMENDED COUMADIN/WARFARIN INR THERAPY RANGES STANDARD DOSE: 2.0-3.0Includes: PROPHYLAXIS for venous thrombosis, systemic embolization; TREATMENT for venous thrombosis and/or pulmonary embolus. HIGH RISK: Target INR is 2.5-3.5 for patients wiht mechanical heart valves. Performing Organization Address [facility] Phone Number [address] [address] CENTER Fibrinogen (12/15/2018 11:49 AM CDT) Fibrinogen 354 225 - 434 mg/dl [facility] Specimen Blood Performing Organization Address [facility] Phone Number [address] [address] [phone] [place] Platelet count (12/15/2018 11:49 AM CDT) Platelets 206 150 - 450 K/CU MM [facility] Specimen Blood Performing Organization Address [facility] Phone Number [address] [address] [phone] CENTER WAYNE (12/15/2018 9:13 AM CDT) Narrative [...] bilateral (12/15/2018 5:21 AM CDT) [facility] ECHO [facility]ART[facility] Specimen Impressions Performed At Right Impression [facility] ECHO [facility]ART[facility] 1. There is <50% diameter reduction [...] Performed At LAB - Carotid Duplex Study [facility] Demographics Patient NameHEATHER MOORE Date of Study 12/15/2018 R Age 73 Visit [id number] GenderMale Date of 1945 Referring Viktoriya Bond,Room Number SCPR Physician LEYDI Event Specialist Uriel Sullivan Physician Procedure Type of Study: Cerebral: Carotid, CAROTID DOPPLER, BILATERAL. Indications for Study:Pre-op evaluation. Patient Status:Routine. Study Location:Portable. Technical Quality:Adequate visualization. Risk Factors History of Disease + +----+ + !Diagnosis!Date!Comments ! + +----+ + !History/Risk !!PVD, CHF, CAD, SD, COPD, DM, PAD, HTN, HLD, H/o! !Factors: !!Bladder Cancer, LE Arterial Stents ! + +----+ + Procedure Note Interface, External Ris In - 12/15/2018 12:03 PM CDT [facility] - Carotid Duplex Study Demographics Patient Name HEATHER MOORE Date of Study 12/15/2018 R Age 73 Visit Number [id number] Gender Male Accession Number [id number] Date of 1945 Referring Viktoriya Bond, Room Number SCPR Physician LEYDI Event Specialist Uriel Eid Interpreting Juanita Sullivan, Physician Procedure Type of Study: Cerebral: Carotid, CAROTID DOPPLER, BILATERAL. Indications for Study:Pre-op evaluation. Patient Status:Routine. Study Location:Portable. Technical Quality:Adequate visualization. Risk Factors History of Disease + +----+ + !Diagnosis !Date!Comments ! + +----+ + !History/Risk ! !PVD, CHF, CAD, SD, COPD, DM, PAD, HTN, HLD, H/o ! [...] Additional Measurements:ICAPSV/CCAPSV 1.05.ICAEDV/CCAEDV 2.83. Performing Organization Address City/[facility]/Zipcode Phone Number [facility] MKCKESSON CPACS ABORH, manual (12/15/2018 1:32 AM CDT) ABO Grouping O [facility] Rh Factor POS [facility] Specimen Blood Performing Organization Address [facility]/Zipcode Phone Number [facility] [address] [place] [address] [phone] Type and screen, automated (12/15/2018 1:11 AM CDT) ABO/RH AUTOMATED (BEAKER) O POSITIVE [facility] Ab Scrn NEGATIVE [facility] Specimen Blood Performing Organization Address [facility]/Zipcode Phone Number [facility] [address] [place], [place] [phone] NM PET Cardiac Viability (12/11/2018 5:15 PM CDT) Specimen Narrative Performed At FINAL REPORT [employer] PROCEDURE: MYOCARDIAL METABOLISM PET IMAGING with Rest MYOCARDIAL PERFUSION PET IMAGING\\XA9\\ CPT CODE:33600, 05784 INDICATION: CAD, preoperative viability assessment for ACB [...] MD Report Verified Date/Time:12/11/2018 18:10:46 Reading Location: [address] Reading Room Procedure Note Interface, External Ris In - 12/11/2018 6:13 PM CDT FINAL REPORT PROCEDURE: MYOCARDIAL METABOLISM PET IMAGING with Rest MYOCARDIAL PERFUSION PET IMAGING\\XA9\\ CPT CODE: 54205, 22451 INDICATION: CAD, preoperative viability assessment for ACB [...] Report Verified Date/Time: 12/11/2018 18:10:46 Reading Location: [address] Reading Room Performing Organization Address City/State/Zipcode Phone Number [employer] Pulmonary Funct Lab bedside spirometry (12/11/2018 11:24 AM CDT) Narrative Performed At Palma Garduno RRT, MOBILE DEVICE DEVELOPER 12/11/2018 11:27 AM [facility] PFT CHARTING REPORT Infection Control/Hand Hygiene procedures followed throughout the encounter with patient: Yes Patient Identification Method: Patient name verified on armband, and Medical record on armband, Is the order complete?: Yes Account ID#: [id number] Patient Name: Heather Moore Birthdate: 1945 Age: [...] CDT) Specimen Narrative Performed At FINAL REPORT [employer] INDICATION: Hypoxemia and shortness of breath. COMPARISON: [...] MD Report Verified Date/Time:12/11/2018 11:34:47 Reading Location: [facility] Diagnostic Imaging Reading Room - [place] [address] Procedure Note Interface, External Ris In [...] Report Verified Date/Time: 12/11/2018 11:34:47 Reading Location: [facility] Diagnostic Imaging Reading Room - [place] [address] Performing Organization Address City/State/Zipcode Phone Number [facility] Troponin I (12/11/2018 5:05 AM CDT)Only the most recent of4 resultswithin the time period is included. Troponin I 1.07 (HH) 0.00 - 0.03 ng/mL [facility] Specimen Blood Narrative Performed At Troponin I (TnI) levels must be interpreted [facility] in the context of the presenting symptoms [...] tachyarrhythmia. Performing Organization Address City/State/Zipcode Phone Number [address] [phone] [place] Vancomycin level, trough (12/10/2018 12:30 PM CDT) Vancomycin Tr 16.8 10.0 - 20.0 ug/mL [facility] Specimen Blood Performing Organization Address [facility] Phone Number [address] [phone] [place] ECHOCARDIOGRAM REPORT - SCAN (12/09/2018 9:02 PM CDT) Narrative Performed At Urinalysis w/Microscopic + Reflex to Culture (12/09/2018 10:39 AM CDT) Color, UA Yellow [facility] Clarity, UA Clear [facility] Specific Raymond, UA 1.009 1.001 - 1.035 [facility] pH, UA 5.0 5.0 - 8.0 [facility] Protein, UA 20 mg/dL (A) Negative [facility] Glucose, UA Negative Negative [facility] Ketones, UA Negative Negative [facility] Bilirubin, UA Negative Negative [facility] Blood, UA Moderate (A) Negative [facility] Nitrite, UA Negative Negative [facility] Leukocytes, UA Moderate (A) Negative [facility] Urobilinogen, UA 0.2 0.2 - 1.0 mg/dL [facility] RBC, UA 27 /HPF [facility] WBC, UA 20 /HPF [facility] Mucus Rare [facility] Squam Epithel, UA <1 /HPF [facility] Specimen Source [facility] Specimen Urine Performing Organization Address City/[facility]/[place] [address] [place] Urine culture (12/09/2018 10:39 AM CDT) Result No growth [facility] Specimen Urine Performing Organization Address [facility] [place] [address] [phone] [place] Hemoglobin A1c (12/09/2018 10:39 AM CDT) Hemoglobin A1C 5.7 4.3 - 6.1 % [facility] Specimen Blood Performing Organization Address [facility] [place] [address] [phone] [place] 2D Echo W/Doppler(CW/PW/Color) (12/09/2018 1:53 AM CDT) Ejection Fraction [facility] Specimen Narrative Performed At Transthoracic Echocardiography Report (TTE) [facility] Demographics Patient NameBLANCHARD,Date of Study12/09/[address] Male Visit [id number] Unknown Room [id number] Number Date of 1945Referring Kirit Serna PhysicianBlyuliet Park NP Age 73 year(s)Event Specialist Angie Blakely RDCS, RVT Enrollment Specialist Elicia Rutherford, Interpreting Roly Colon MD Procedure [...] 12/09/[address] Gender Male Visit Number [id number] Race Unknown Room Number [id number] Number Date of 1945 Referring Kirit Serna Physician Omero Park NP Age 73 year(s) Event Specialist Angie Blakely [facility], RVT Enrollment Specialist Elicia Rutherford, Interpreting Jaron Evans [facility] Physician Procedure Type of Study TTE [...] LVOT CI: 3.8 l/min/m^2 Performing Organization Address City/[facility] Phone Number [facility] Comprehensive metabolic panel (12/09/2018 1:42 AM CDT) Protein, Total 6.9Comment: Specimen 6.0 - 8.3 gm/dL slightly hemolyzed [facility] Albumin 3.4 (L)Comment: Specimen 3.5 - 5.0 g/dL slightly hemolyzed [facility] Alkaline Phosphatase 66 40 - 150 U/L [facility] Total Bilirubin 0.5Comment: Specimen 0.2 - 1.2 mg/dL slightly hemolyzed [facility] Sodium 138 136 - 145 meq/L [facility] Potassium 4.4Comment: Specimen 3.5 - 5.1 meq/L slightly hemolyzed [facility] Chloride 108 (H) 98 - 107 meq/L [facility] CO2 20 (L) 22 - 29 meq/L [facility] BUN 17 7 - 21 mg/dL [facility] Creatinine 1.20Comment: Specimen 0.57 - 1.25 mg/dL slightly hemolyzed [facility] Glucose 135 (H) 70 - 105 mg/dL [facility] Calcium 8.5 8.4 - 10.2 mg/dL [facility] AST 13Comment: Specimen 5 - 34 U/L slightly hemolyzed [facility] ALT 11Comment: Specimen 6 - 55 U/L slightly hemolyzed [facility] EGFR 60Comment: ESTIMATED GFR mL/min/1.73 sq m IS NOT ACCURATE [facility] CREATININE CLEARANCE IN PREDICTING GLOMERULAR FILTRATION RATE. ESTIMATED GFR IS NOT APPLICABLE FOR DIALYSIS PATIENTS. Specimen Blood Performing Organization Address City/[facility] Phone Number [facility] [address] [place] [address] CENTER Theophylline level (12/08/2018 6:48 PM CDT) Theophylline Lvl 10.1 10.0 - 20.0 ug/mL [facility] Specimen Blood Performing Organization Address City/State/Zipcode Phone Number [facility] [address] [place] [address] [place] Respiratory Panel [facility] (12/08/2018 5:57 PM CDT) Human Metapneumovirus Not detected Not detected, [facility] Rhinovirus Not detected Not detected, [employer] [facility] Influenza A Not detected Not detected, [facility] INFLUENZA A (NO SUBTYPE) Not detected, [employer] [facility] Influenza A subtype H1 Not detected, [facility] Influenza A Subtype H3 Not detected, [facility] Influenza A Subtype H1-2009 Not detected, [facility] Influenza B Not detected Not detected, [facility] Respiratory Syncytial Virus Not detected Not detected, [facility] Parainfluenza Virus 1 Not detected Not detected, [facility] Parainfluenza Virus 2 Not detected Not detected, [facility] Parainfluenza virus 3 Not detected Not detected, [facility] Parainfluenza Virus 4 Not detected Not detected, [facility] Adenovirus Not detected Not detected, [facility] Coronavirus 229E Not detected Not detected, [facility] Coronavirus HKU1 Not detected Not detected, [facility] Coronavirus NL63 Not detected Not detected, [facility] Coronavirus OC43 Not detected Not detected, [facility] Bordetella Pertussis Not detected Not detected, [employer] [facility] Chlamydophila Pneumoniae Not detected Not detected, [facility] Mycoplasma Pneumoniae Not detected Not detected, [facility] Specimen Nasopharyngeal Narrative Performed At Other viruses and bacteria not targeted by [facility] this PCR panel cannot be excluded; therefore clinical correlation and follow up of serology, culture results, and other molecular studies is required. The results are not intended to be used as the sole means for clinical diagnosis or patient management decisions. This sample was tested at the [facility] using the [employer] Respiratory Panel. It is FDA cleared and has been verified and approved by the [facility] for clinical use on nasopharyngeal swab specimens. The performance of the [employer] RP has not been established in individuals who received influenza vaccine.Recent administration of a nasal influenza vaccine may cause false positive results for Influenza A and/or Influenza B. Performing Organization Address City/[facility] Phone Number [address] [phone] [place] Legionella antigen, urine (12/08/2018 5:53 PM CDT) Legionella Urine Antigen Negative - see commentComment: Negative [facility] for L. pneumophila serogroup 1 antigen, suggesting no recent or current infection with this serogroup. Legionellosis cannot be ruled out since other serogroups and species may cause disease. Specimen Urine Performing Organization Address [facility] Phone Number [address] [address] [phone] [place] Strep pneumoniae antigen (12/08/2018 5:49 PM CDT) Strep pneumoniae Presumptive negative Presumptive negative [facility] Antigen for pneumococcal for pneumococcal [facility] pneumonia - see comment pneumonia - see CENTER comment, Presumptive negative for pneumococcal meningitis - see comment Specimen Urine Narrative Performed At Presumptive negative for pneumococcal [facility] pneumonia, suggesting no current or recent pneumococcal infection. Infection due to S. pneumoniae cannot be ruled out since the antigen present in the sample may be below the detection limit of the test. Performing Organization Address City/State/Zipcode Phone Number [facility] [address] [place], [place] [phone] CENTER BUN and Creatinine (12/08/2018 5:46 PM CDT) BUN 18 7 - 21 mg/dL [facility] Creatinine 1.30 (H) 0.57 - 1.25 mg/dL [facility] EGFR 54Comment: ESTIMATED GFR IS mL/min/1.73 sq m [facility] NOT ACCURATE [facility] CLEARANCE IN PREDICTING GLOMERULAR FILTRATION RATE. ESTIMATED GFR IS NOT APPLICABLE FOR DIALYSIS PATIENTS. Specimen Blood Performing Organization Address City/State/Zipcode Phone Number [facility] [address] [place] [address] [phone] CENTER after 01/27/2018 Insurance Payer Benefit Plan / Group Subscriber ID Type Phone Address [employer] - MEDICARE AARP/MEDICARE COMPLETE xxxxxxxxx [facility] (Nancy) [address] [id number] Advance Directives For more information, please contact:[address] [phone] Code Status Date Activated Date Inactivated Comments Full Code 12/15/2018 2:01 PM 01/01/2019 4:41 PM This code status was determined by: Patient Full Code 12/08/2018 4:57 PM 12/15/2018 2:01 PM This code status was determined by: Patient
--- OUTSIDE RECORDS SUMMARY | 2019-01-28 09:32 | XMS REPORT ---
:1945 Author Organization [facility] Address [address] [place] [address] Care Team Providers Name Role Phone FERNANDO [...] (BEAKER) (test 165 mg/dL 70-110 TESTED AT [facility] [address] wnso=9872) [facility] [address] [id number] 08:41:00 Test Item Value Reference Range Comments MAGNESIUM (BEAKER) (test xzft=080) 2.0 mg/dL 1.6-2.6 BASIC METABOLIC [id number] 08:41:00 Test Item Value Reference Range Comments SODIUM (BEAKER) (test 142 meq/L 136-145 yaeo=864) POTASSIUM (BEAKER) (test 4.6 meq/L 3.5-5.1 avni=350) CHLORIDE (BEAKER) (test 102 meq/L 98-107 lhin=265) CO2 (BEAKER) (test 33 meq/L 22-29 eyof=948) BLOOD UREA NITROGEN 21 mg/dL 7-21 (BEAKER) (test tfph=254) CREATININE (BEAKER) (test 1.30 mg/dL 0.57-1.25 whsl=643) GLUCOSE RANDOM (BEAKER) 126 mg/dL 70-105 (test jlli=178) CALCIUM (BEAKER) (test 9.3 mg/dL 8.4-10.2 ewxm=903) EGFR (BEAKER) (test 54 mL/min/1.73 sq m ESTIMATED GFR IS NOT hixu=6514) ACCURATE CREATININE CLEARANCE IN PREDICTING GLOMERULAR FILTRATION RATE. ESTIMATED GFR IS NOT APPLICABLE FOR DIALYSIS PATIENTS. POCT-GLUCOSE [id number] 08:04:00 Test Item Value Reference Range Comments POC-GLUCOSE METER (BEAKER) 103 mg/dL 70-110 TESTED AT [address] (test ghbo=8399) [place] [address] B-TYPE NATRIURETIC FACTOR (BNP)2019-01-01 05:26:00 Test Item Value Reference Range Comments B-TYPE NATRIURETIC PEPTIDE (BEAKER) (test 1150 pg/mL 0-100 oqet=959) POCT-GLUCOSE [id number] 21:02:00 Test Item Value Reference Range Comments POC-GLUCOSE METER (BEAKER) 180 mg/dL 70-110 TESTED AT [address] (test gzsa=4852) [place] [address] POCT-GLUCOSE [id number] 17:02:00 Test Item Value Reference Range Comments POC-GLUCOSE METER (BEAKER) 129 mg/dL 70-110 TESTED AT [address] (test tgph=4131) [place] [address] POCT-GLUCOSE [id number] 12:26:00 Test Item Value Reference Range Comments POC-GLUCOSE METER (BEAKER) 127 mg/dL 70-110 TESTED AT [address] (test inpm=5712) [place] [id number] POCT-GLUCOSE [id number] 09:06:00 Test Item Value Reference Range Comments POC-GLUCOSE METER (BEAKER) 136 mg/dL 70-110 TESTED AT [address] (test epsk=8842) [place] [id number] [id number] 05:33:00 Test Item Value Reference Range Comments MAGNESIUM (BEAKER) (test spye=506) 1.9 mg/dL 1.6-2.6 BASIC METABOLIC [id number] 05:33:00 Test Item Value Reference Range Comments SODIUM (BEAKER) (test 140 meq/L 136-145 vdsm=672) POTASSIUM (BEAKER) (test 4.2 meq/L 3.5-5.1 dbxs=677) CHLORIDE (BEAKER) (test 103 meq/L 98-107 kjlz=917) CO2 (BEAKER) (test 31 meq/L 22-29 cbab=569) BLOOD UREA NITROGEN 23 mg/dL 7-21 (BEAKER) (test gayv=654) CREATININE (BEAKER) (test 1.32 mg/dL 0.57-1.25 nfyp=879) GLUCOSE RANDOM (BEAKER) 109 mg/dL 70-105 (test gqoh=910) CALCIUM (BEAKER) (test 8.7 mg/dL 8.4-10.2 seiy=583) EGFR (BEAKER) (test 53 mL/min/1.73 sq m ESTIMATED GFR IS NOT yhbg=9455) ACCURATE CREATININE CLEARANCE IN PREDICTING GLOMERULAR FILTRATION RATE. ESTIMATED GFR IS NOT APPLICABLE FOR DIALYSIS PATIENTS. POCT-GLUCOSE [id number] 21:21:00 Test Item Value Reference Range Comments POC-GLUCOSE METER (BEAKER) 125 mg/dL 70-110 TESTED AT [address] (test kimb=0776) [place] [id number] POCT-GLUCOSE [id number] 17:10:00 Test Item Value Reference Range Comments POC-GLUCOSE METER (BEAKER) 126 mg/dL 70-110 TESTED AT [address] (test xwur=2172) [place] [address] POCT-GLUCOSE [id number] 12:02:00 Test Item Value Reference Range Comments POC-GLUCOSE METER (BEAKER) 117 mg/dL 70-110 TESTED AT [address] (test irjk=5595) [place] [address] POCT-GLUCOSE [id number] 08:10:00 Test Item Value Reference Range Comments POC-GLUCOSE METER (BEAKER) 117 mg/dL 70-110 TESTED AT [address] (test mavd=8963) [place] [address] [id number] 07:09:00 Test Item Value Reference Range Comments MAGNESIUM (BEAKER) (test barw=965) 1.8 mg/dL 1.6-2.6 BASIC METABOLIC [id number] 07:09:00 Test Item Value Reference Range Comments SODIUM (BEAKER) (test 141 meq/L 136-145 lsml=384) POTASSIUM (BEAKER) (test 4.2 meq/L 3.5-5.1 qoym=566) CHLORIDE (BEAKER) (test 103 meq/L 98-107 ipup=502) CO2 (BEAKER) (test 32 meq/L 22-29 juio=883) BLOOD UREA NITROGEN 20 mg/dL 7-21 (BEAKER) (test bcko=279) CREATININE (BEAKER) (test 1.17 mg/dL 0.57-1.25 mpcd=117) GLUCOSE RANDOM (BEAKER) 97 mg/dL 70-105 (test auxo=296) CALCIUM (BEAKER) (test 8.7 mg/dL 8.4-10.2 dpae=519) EGFR (BEAKER) (test 61 mL/min/1.73 sq m ESTIMATED GFR IS NOT gzmr=7242) ACCURATE CREATININE CLEARANCE IN PREDICTING GLOMERULAR FILTRATION RATE. ESTIMATED GFR IS NOT APPLICABLE FOR DIALYSIS PATIENTS. CBC (HEMOGRAM ONLY)2018-12-30 06:44:00 Test Item Value Reference Range Comments WHITE BLOOD CELL COUNT (BEAKER) (test ogiy=297) 6.6 K/ L 3.5-10.5 RED BLOOD CELL COUNT (BEAKER) (test yydk=944) 3.42 M/ L 4.63-6.08 HEMOGLOBIN (BEAKER) (test ocqg=933) 8.8 GM/DL 13.7-17.5 HEMATOCRIT (BEAKER) (test pfho=176) 29.2 % 40.1-51.0 MEAN CORPUSCULAR VOLUME (BEAKER) (test sjgy=712) 85.4 fL 79.0-92.2 MEAN CORPUSCULAR HEMOGLOBIN (BEAKER) (test 25.7 pg 25.7-32.2 hjcj=365) MEAN CORPUSCULAR HEMOGLOBIN CONC (BEAKER) (test 30.1 GM/DL 32.3-36.5 vcdx=269) RED CELL DISTRIBUTION WIDTH (BEAKER) (test 14.9 % 11.6-14.4 actd=166) PLATELET COUNT (BEAKER) (test lioi=283) 233 K/CU MM 150-450 MEAN PLATELET VOLUME (BEAKER) (test kvka=208) 10.6 fL 9.4-12.4 NUCLEATED RED BLOOD CELLS (BEAKER) (test 0 /100 WBC 0-0 jrli=308) POCT-GLUCOSE [id number] 21:42:00 Test Item Value Reference Range Comments POC-GLUCOSE METER (BEAKER) 137 mg/dL 70-110 TESTED AT [address] (test smgn=5186) [facility] [address] POCT-GLUCOSE [id number] 17:22:00 Test Item Value Reference Range Comments POC-GLUCOSE METER (BEAKER) 168 mg/dL 70-110 TESTED AT [address] (test ydap=4046) [place] [address] POCT-GLUCOSE [id number] 12:54:00 Test Item Value Reference Range Comments POC-GLUCOSE METER (BEAKER) 138 mg/dL 70-110 TESTED AT [address] (test jezg=6643) [place] [address] [id number] 05:12:00 Test Item Value Reference Range Comments MAGNESIUM (BEAKER) (test kbjo=425) 2.0 mg/dL 1.6-2.6 BASIC METABOLIC [id number] 05:12:00 Test Item Value Reference Range Comments SODIUM (BEAKER) (test 139 meq/L 136-145 oxia=644) POTASSIUM (BEAKER) (test 4.2 meq/L 3.5-5.1 hqur=292) CHLORIDE (BEAKER) (test 101 meq/L 98-107 huem=364) CO2 (BEAKER) (test 32 meq/L 22-29 snrt=843) BLOOD UREA NITROGEN 21 mg/dL 7-21 (BEAKER) (test saiw=926) CREATININE (BEAKER) (test 1.11 mg/dL 0.57-1.25 vbmk=910) GLUCOSE RANDOM (BEAKER) 92 mg/dL 70-105 (test jwne=105) CALCIUM (BEAKER) (test 8.3 mg/dL 8.4-10.2 uktn=766) EGFR (BEAKER) (test 65 mL/min/1.73 sq m ESTIMATED GFR IS NOT usgd=8485) ACCURATE CREATININE CLEARANCE IN PREDICTING GLOMERULAR FILTRATION RATE. ESTIMATED GFR IS NOT APPLICABLE FOR DIALYSIS PATIENTS. BLOOD [id number] 02:00:00 Test Item Value Reference Range Comments CULTURE (BEAKER) (test lyis=8434) No growth in 5 days POCT-GLUCOSE [id number] 21:25:00 Test Item Value Reference Range Comments POC-GLUCOSE METER (BEAKER) 168 mg/dL 70-110 TESTED AT [address] (test jspu=5133) [facility] [address] POCT-GLUCOSE [id number] 17:16:00 Test Item Value Reference Range Comments POC-GLUCOSE METER (BEAKER) 136 mg/dL 70-110 TESTED AT [address] (test gbng=5065) [facility] [address] POCT-GLUCOSE [id number] 12:33:00 Test Item Value Reference Range Comments POC-GLUCOSE METER (BEAKER) 127 mg/dL 70-110 TESTED AT [address] (test buqx=1858) [place] [address] [id number] 06:30:00 Test Item Value Reference Range Comments MAGNESIUM (BEAKER) (test efgp=941) 2.1 mg/dL 1.6-2.6 BASIC METABOLIC [id number] 06:30:00 Test Item Value Reference Range Comments SODIUM (BEAKER) (test 139 meq/L 136-145 ipfo=850) POTASSIUM (BEAKER) (test 4.0 meq/L 3.5-5.1 qtvp=829) CHLORIDE (BEAKER) (test 101 meq/L 98-107 fxvp=585) CO2 (BEAKER) (test 31 meq/L 22-29 ktli=900) BLOOD UREA NITROGEN 23 mg/dL 7-21 (BEAKER) (test mznk=954) CREATININE (BEAKER) (test 1.27 mg/dL 0.57-1.25 piqz=017) GLUCOSE RANDOM (BEAKER) 106 mg/dL 70-105 (test raud=231) CALCIUM (BEAKER) (test 8.5 mg/dL 8.4-10.2 bnvb=309) EGFR (BEAKER) (test 56 mL/min/1.73 sq m ESTIMATED GFR IS NOT lrmu=6973) ACCURATE CREATININE CLEARANCE IN PREDICTING GLOMERULAR FILTRATION RATE. ESTIMATED GFR IS NOT APPLICABLE FOR DIALYSIS PATIENTS. POCT-GLUCOSE [id number] 18:40:00 Test Item Value Reference Range Comments POC-GLUCOSE METER (BEAKER) 151 mg/dL 70-110 TESTED AT [address] (test bwjp=8305) [place] [address] POCT-GLUCOSE [id number] 12:32:00 Test Item Value Reference Range Comments POC-GLUCOSE METER (BEAKER) 145 mg/dL 70-110 TESTED AT [address] (test fpef=7447) [place] [address] POCT-GLUCOSE [id number] 09:21:00 Test Item Value Reference Range Comments POC-GLUCOSE METER (BEAKER) 120 mg/dL 70-110 TESTED AT [address] (test qtdz=0130) [place] [address] [id number] 06:50:00 Test Item Value Reference Range Comments MAGNESIUM (BEAKER) (test qrpd=857) 1.8 mg/dL 1.6-2.6 POCT-GLUCOSE [id number] 21:57:00 Test Item Value Reference Range Comments POC-GLUCOSE METER (BEAKER) 110 mg/dL 70-110 TESTED AT [address] (test gckw=3964) [place] [address] POCT-GLUCOSE [id number] 17:57:00 Test Item Value Reference Range Comments POC-GLUCOSE METER (BEAKER) 130 mg/dL 70-110 TESTED AT [address] (test hexu=8102) [place] [address] RAD, CHEST, 1 VIEW, NON [id number] 16:41:00Reason for exam:->s/p acbShould this be performed [...] Date/Time: 12/26/2018 16:41:43 Reading Location: [facility] Radiology Reading Room SPUTUM CULTURE + GRAM [id number] 12:16:00 Test Item Value Reference Range Comments CULTURE (BEAKER) (test 4+ Normal respiratory deandra hfii=3891) present GRAM STAIN RESULT (BEAKER) <1+ White blood cells seen (test aeps=4880) GRAM STAIN RESULT (BEAKER) 0-5 epithelial cells (test nkdx=27177) GRAM STAIN RESULT (BEAKER) <1+ yeast (test dtwc=59167) POCT-GLUCOSE [id number] 11:58:00 Test Item Value Reference Range Comments POC-GLUCOSE METER (BEAKER) 124 mg/dL 70-110 TESTED AT [address] (test neba=0530) [place] [address] POCT-GLUCOSE [id number] 07:27:00 Test Item Value Reference Range Comments POC-GLUCOSE METER (BEAKER) 140 mg/dL 70-110 TESTED AT [address] (test yrzt=9512) [place] [address] [id number] 05:59:00 Test Item Value Reference Range Comments MAGNESIUM (BEAKER) (test jfvc=043) 2.0 mg/dL 1.6-2.6 B-TYPE NATRIURETIC FACTOR (BNP)2018-12-26 05:58:00 Test Item Value Reference Range Comments B-TYPE NATRIURETIC PEPTIDE (BEAKER) (test 1275 pg/mL 0-100 hvso=637) POCT-GLUCOSE [id number] 21:27:00 Test Item Value Reference Range Comments POC-GLUCOSE METER (BEAKER) 181 mg/dL 70-110 TESTED AT [address] (test grsz=6504) [place] [address] POCT-GLUCOSE [id number] 17:26:00 Test Item Value Reference Range Comments POC-GLUCOSE METER (BEAKER) 133 mg/dL 70-110 TESTED AT [address] (test wtpg=3455) [place] [address] POCT-GLUCOSE [id number] 12:21:00 Test Item Value Reference Range Comments POC-GLUCOSE METER (BEAKER) 129 mg/dL 70-110 TESTED AT [address] (test tfol=5414) [facility] [address] RAD, CHEST, 1 VIEW, NON [id number] 10:32:00Reason for exam:->pulmonary edemaShould this be performed at the bedside?->YesFINAL REPORT AP chest HISTORY: Pulmonary edema. COMPARISON: 07/26/2018. IMPRESSION: Cardia megaly. Sternotomy. Moderate diffuse interstitial edema. Moderate effusions. Basilar atelectasis. No pneumothorax. Signed: Serjio Lawrence MDReport Verified Date/Time: 12/25/2018 10:32:11 Reading Location: [facility] Radiology Reading Room POCT-GLUCOSE [id number] 07:45:00 Test Item Value Reference Range Comments POC-GLUCOSE METER (BEAKER) 150 mg/dL 70-110 TESTED AT [facility] [address] (test xgss=5446) [facility] [address] [id number] 03:20:00 Test Item Value Reference Range Comments MAGNESIUM (BEAKER) (test 2.1 mg/dL 1.6-2.6 Specimen slightly hemolyzed ssxe=042) BASIC METABOLIC [id number] 03:20:00 Test Item Value Reference Range Comments SODIUM (BEAKER) (test 138 meq/L 136-145 tlcl=974) POTASSIUM (BEAKER) (test 4.6 meq/L 3.5-5.1 Specimen slightly aoyt=857) hemolyzed CHLORIDE (BEAKER) (test 100 meq/L 98-107 yicd=603) CO2 (BEAKER) (test 32 meq/L 22-29 ulcc=830) BLOOD UREA NITROGEN 28 mg/dL 7-21 (BEAKER) (test ioxi=539) CREATININE (BEAKER) (test 1.17 mg/dL 0.57-1.25 Specimen slightly knbn=660) hemolyzed GLUCOSE RANDOM (BEAKER) 104 mg/dL 70-105 (test ftja=303) CALCIUM (BEAKER) (test 8.5 mg/dL 8.4-10.2 hwft=020) EGFR (BEAKER) (test 61 mL/min/1.73 sq m ESTIMATED GFR IS NOT zsgv=6696) ACCURATE CREATININE CLEARANCE IN PREDICTING GLOMERULAR FILTRATION RATE. ESTIMATED GFR IS NOT APPLICABLE FOR DIALYSIS PATIENTS. [id number] 03:12:00 Test Item Value Reference Range Comments PARTIAL THROMBOPLASTIN TIME (BEAKER) (test 38.2 seconds 22.5-36.0 dngf=351) CBC W/PLT COUNT & AUTO [id number] 03:06:00 Test Item Value Reference Range Comments WHITE BLOOD CELL COUNT (BEAKER) (test xnjq=161) 8.0 K/ L 3.5-10.5 RED BLOOD CELL COUNT (BEAKER) (test saqd=506) 3.28 M/ L 4.63-6.08 HEMOGLOBIN (BEAKER) (test ljge=631) 8.5 GM/DL 13.7-17.5 HEMATOCRIT (BEAKER) (test alsb=828) 27.4 % 40.1-51.0 MEAN CORPUSCULAR VOLUME (BEAKER) (test kdff=304) 83.5 fL 79.0-92.2 MEAN CORPUSCULAR HEMOGLOBIN (BEAKER) (test 25.9 pg 25.7-32.2 zcri=265) MEAN CORPUSCULAR HEMOGLOBIN CONC (BEAKER) (test 31.0 GM/DL 32.3-36.5 qfdp=210) RED CELL DISTRIBUTION WIDTH (BEAKER) (test 14.6 % 11.6-14.4 qoti=433) PLATELET COUNT (BEAKER) (test ozlc=437) 267 K/CU MM 150-450 MEAN PLATELET VOLUME (BEAKER) (test mzxx=282) 10.9 fL 9.4-12.4 NUCLEATED RED BLOOD CELLS (BEAKER) (test 0 /100 WBC 0-0 apvy=863) NEUTROPHILS RELATIVE PERCENT (BEAKER) (test 73 % bkco=338) LYMPHOCYTES RELATIVE PERCENT (BEAKER) (test 15 % xsuf=929) MONOCYTES RELATIVE PERCENT (BEAKER) (test 9 % ltyn=550) EOSINOPHILS RELATIVE PERCENT (BEAKER) (test 2 % vmzk=670) BASOPHILS RELATIVE PERCENT (BEAKER) (test 1 % unrf=038) NEUTROPHILS ABSOLUTE COUNT (BEAKER) (test 5.81 K/ L 1.78-5.38 kctw=201) LYMPHOCYTES ABSOLUTE COUNT (BEAKER) (test 1.20 K/ L 1.32-3.57 olwr=757) MONOCYTES ABSOLUTE COUNT (BEAKER) (test 0.69 K/ L 0.30-0.82 tfmq=045) EOSINOPHILS ABSOLUTE COUNT (BEAKER) (test 0.16 K/ L 0.04-0.54 ymsy=751) BASOPHILS ABSOLUTE COUNT (BEAKER) (test 0.05 K/ L 0.01-0.08 lbze=883) IMMATURE GRANULOCYTES-RELATIVE PERCENT (BEAKER) 1 % 0-1 (test frwa=0084) CALCIUM, [id number] 02:49:00 Test Item Value Reference Range Comments CALCIUM IONIZED (BEAKER) (test thuj=724) 1.11 mmol/L 1.12-1.27 PH, BLOOD (BEAKER) (test wgrw=5522) 7.45 POCT-GLUCOSE [id number] 21:52:00 Test Item Value Reference Range Comments POC-GLUCOSE METER (BEAKER) 130 mg/dL 70-110 TESTED AT [address] (test axct=6604) [place] [address] [id number] 19:29:00 Test Item Value Reference Range Comments POTASSIUM (BEAKER) (test yczx=242) 4.5 meq/L 3.5-5.1 [id number] 19:29:00 Test Item Value Reference Range Comments MAGNESIUM (BEAKER) (test usfl=354) 2.1 mg/dL 1.6-2.6 CALCIUM, [id number] 19:05:00 Test Item Value Reference Range Comments CALCIUM IONIZED (BEAKER) (test nnfb=292) 1.18 mmol/L 1.12-1.27 PH, BLOOD (BEAKER) (test ixat=0274) 7.35 POCT-GLUCOSE [id number] 18:34:00 Test Item Value Reference Range Comments POC-GLUCOSE METER (BEAKER) 125 mg/dL 70-110 TESTED AT [address] (test gwvc=8924) [facility] [address] RAD, CHEST, 1 VIEW, NON [id number] 16:43:00Reason for exam:->shortness of BreathShould this be [...] Date/Time: 12/24/2018 16:43:55 Reading Location: [facility] Reading Room POCT-GLUCOSE [id number] 11:44:00 Test Item Value Reference Range Comments POC-GLUCOSE METER (BEAKER) 115 mg/dL 70-110 TESTED AT [address] (test bqrv=8873) [facility] [address] POCT-GLUCOSE [id number] 09:29:00 Test Item Value Reference Range Comments POC-GLUCOSE METER (BEAKER) 123 mg/dL 70-110 TESTED AT [address] (test fmso=4354) [place] [address] [id number] 04:47:00 Test Item Value Reference Range Comments PARTIAL THROMBOPLASTIN TIME (BEAKER) (test 37.9 seconds 22.5-36.0 mleh=649) [id number] 04:37:00 Test Item Value Reference Range Comments MAGNESIUM (BEAKER) (test 2.4 mg/dL 1.6-2.6 Specimen slightly hemolyzed gjmg=375) [id number] 04:37:00 Test Item Value Reference Range Comments PHOSPHORUS (BEAKER) (test 4.0 mg/dL 2.3-4.7 Specimen slightly hemolyzed icqp=505) BASIC METABOLIC [id number] 04:37:00 Test Item Value Reference Range Comments SODIUM (BEAKER) (test 139 meq/L 136-145 wzqi=509) POTASSIUM (BEAKER) (test 4.9 meq/L 3.5-5.1 Specimen slightly rvdf=034) hemolyzed CHLORIDE (BEAKER) (test 101 meq/L 98-107 fosz=779) CO2 (BEAKER) (test 29 meq/L 22-29 zipr=684) BLOOD UREA NITROGEN 26 mg/dL 7-21 (BEAKER) (test igiz=495) CREATININE (BEAKER) (test 1.14 mg/dL 0.57-1.25 Specimen slightly avvd=125) hemolyzed GLUCOSE RANDOM (BEAKER) 89 mg/dL 70-105 (test ksyx=564) CALCIUM (BEAKER) (test 8.7 mg/dL 8.4-10.2 lynu=306) EGFR (BEAKER) (test 63 mL/min/1.73 sq m ESTIMATED GFR IS NOT mxld=8853) ACCURATE CREATININE CLEARANCE IN PREDICTING GLOMERULAR FILTRATION RATE. ESTIMATED GFR IS NOT APPLICABLE FOR DIALYSIS PATIENTS. CBC (HEMOGRAM ONLY)2018-12-24 04:16:00 Test Item Value Reference Range Comments WHITE BLOOD CELL COUNT (BEAKER) (test tusu=545) 7.4 K/ L 3.5-10.5 RED BLOOD CELL COUNT (BEAKER) (test zats=234) 3.30 M/ L 4.63-6.08 HEMOGLOBIN (BEAKER) (test fnps=456) 8.5 GM/DL 13.7-17.5 HEMATOCRIT (BEAKER) (test obbp=013) 27.7 % 40.1-51.0 MEAN CORPUSCULAR VOLUME (BEAKER) (test ymtk=809) 83.9 fL 79.0-92.2 MEAN CORPUSCULAR HEMOGLOBIN (BEAKER) (test 25.8 pg 25.7-32.2 dsjh=031) MEAN CORPUSCULAR HEMOGLOBIN CONC (BEAKER) (test 30.7 GM/DL 32.3-36.5 kaxx=618) RED CELL DISTRIBUTION WIDTH (BEAKER) (test 14.7 % 11.6-14.4 shfw=902) PLATELET COUNT (BEAKER) (test qenn=607) 239 K/CU MM 150-450 MEAN PLATELET VOLUME (BEAKER) (test vadx=454) 10.3 fL 9.4-12.4 NUCLEATED RED BLOOD CELLS (BEAKER) (test 0 /100 WBC 0-0 mzbq=265) POCT-GLUCOSE [id number] 22:39:00 Test Item Value Reference Range Comments POC-GLUCOSE METER (BEAKER) 139 mg/dL 70-110 TESTED AT [facility] [address] (test mrwc=3051) [place] [address] HEPATIC FUNCTION [id number] 21:41:00 Test Item Value Reference Range Comments TOTAL PROTEIN (BEAKER) (test nooi=093) 5.9 gm/dL 6.0-8.3 ALBUMIN (BEAKER) (test rvyq=5405) 3.2 g/dL 3.5-5.0 BILIRUBIN TOTAL (BEAKER) (test kxcj=100) 0.3 mg/dL 0.2-1.2 BILIRUBIN DIRECT (BEAKER) (test wyas=694) 0.2 mg/dL 0.1-0.5 ALKALINE PHOSPHATASE (BEAKER) (test aphd=136) 50 U/L 40-150 AST (SGOT) (BEAKER) (test ufgs=483) 13 U/L 5-34 ALT (SGPT) (BEAKER) (test ufrv=832) 24 U/L 6-55 CALCIUM, [id number] 21:07:00 Test Item Value Reference Range Comments CALCIUM IONIZED (BEAKER) (test fxox=962) 1.15 mmol/L 1.12-1.27 PH, BLOOD (BEAKER) (test tcvb=2920) 7.41 LACTIC ACID, [id number] 20:16:00 Test Item Value Reference Range Comments LACTATE BLOOD VENOUS (2) 0.9 mmol/L 0.5-2.2 Specimen slightly hemolyzed (BEAKER) (test qmyr=8392) [id number] 18:53:00 Test Item Value Reference Range Comments PROCALCITONIN (BEAKER) (test hpsk=8486) < ng/mL <0.05 SEPSIS RISK (ng/mL)Low: 0.05-0.50Intermediate: 0.51-2.00High: & gt;=2.01BASIC METABOLIC [id number] 18:25:00 Test Item Value Reference Range Comments SODIUM (BEAKER) (test 140 meq/L 136-145 dgsw=966) POTASSIUM (BEAKER) (test 4.5 meq/L 3.5-5.1 xydj=396) CHLORIDE (BEAKER) (test 100 meq/L 98-107 bytu=909) CO2 (BEAKER) (test 33 meq/L 22-29 rdsa=612) BLOOD UREA NITROGEN 26 mg/dL 7-21 (BEAKER) (test gsip=015) CREATININE (BEAKER) (test 1.25 mg/dL 0.57-1.25 bsxp=221) GLUCOSE RANDOM (BEAKER) 97 mg/dL 70-105 (test lrxg=177) CALCIUM (BEAKER) (test 8.7 mg/dL 8.4-10.2 wyoy=140) EGFR (BEAKER) (test 57 mL/min/1.73 sq m ESTIMATED GFR IS NOT xugz=2936) ACCURATE CREATININE CLEARANCE IN PREDICTING GLOMERULAR FILTRATION RATE. ESTIMATED GFR IS NOT APPLICABLE FOR DIALYSIS PATIENTS. [id number] 18:20:00 Test Item Value Reference Range Comments MAGNESIUM (BEAKER) (test hxon=126) 2.2 mg/dL 1.6-2.6 Check Serum Magnesium level 2 hours after IV magnesium replacement.POCT-GLUCOSE [id number] 17:58:00 Test Item Value Reference Range Comments POC-GLUCOSE METER (BEAKER) 101 mg/dL 70-110 TESTED AT [facility] [address] (test tmdv=4832) [facility] [address] HEMOGLOBIN AND [id number] 17:42:00 Test Item Value Reference Range Comments HEMOGLOBIN (BEAKER) (test awwb=509) 8.0 GM/DL 13.7-17.5 HEMATOCRIT (BEAKER) (test doyi=968) 25.8 % 40.1-51.0 CBC (HEMOGRAM ONLY)2018-12-23 17:42:00 Test Item Value Reference Range Comments WHITE BLOOD CELL COUNT (BEAKER) (test mdcm=510) 8.6 K/ L 3.5-10.5 RED BLOOD CELL COUNT (BEAKER) (test djsc=880) 3.05 M/ L 4.63-6.08 HEMOGLOBIN (BEAKER) (test ifrk=800) 8.0 GM/DL 13.7-17.5 HEMATOCRIT (BEAKER) (test akni=495) 25.8 % 40.1-51.0 MEAN CORPUSCULAR VOLUME (BEAKER) (test xbps=500) 84.6 fL 79.0-92.2 MEAN CORPUSCULAR HEMOGLOBIN (BEAKER) (test 26.2 pg 25.7-32.2 idqu=126) MEAN CORPUSCULAR HEMOGLOBIN CONC (BEAKER) (test 31.0 GM/DL 32.3-36.5 nyun=928) RED CELL DISTRIBUTION WIDTH (BEAKER) (test 14.7 % 11.6-14.4 lszc=630) PLATELET COUNT (BEAKER) (test qqne=501) 246 K/CU MM 150-450 MEAN PLATELET VOLUME (BEAKER) (test tefq=558) 10.7 fL 9.4-12.4 NUCLEATED RED BLOOD CELLS (BEAKER) (test 0 /100 WBC 0-0 ovmj=308) POCT-GLUCOSE [id number] 12:24:00 Test Item Value Reference Range Comments POC-GLUCOSE METER (BEAKER) 108 mg/dL 70-110 TESTED AT [address] (test uybq=1910) [place] [id number] RAD, CHEST, 1 VIEW, NON [id number] 09:04:00Reason for exam:->pulmonary edemaShould this be performed [...] Katie Salinas Verified Date/Time: 12/23/2018 09:04:24 Reading Location:[facility] Radiology Reading Room 09:04 AMPOCT-GLUCOSE [id number] 08:01:00 Test Item Value Reference Range Comments POC-GLUCOSE METER (BEAKER) 123 mg/dL 70-110 TESTED AT [address] (test qera=7943) [place] [id number] [id number] 05:56:00 Test Item Value Reference Range Comments MAGNESIUM (BEAKER) (test 2.1 mg/dL 1.6-2.6 Specimen slightly hemolyzed odst=644) [id number] 05:56:00 Test Item Value Reference Range Comments PHOSPHORUS (BEAKER) (test 3.5 mg/dL 2.3-4.7 Specimen slightly hemolyzed qrrx=881) BASIC METABOLIC [id number] 05:56:00 Test Item Value Reference Range Comments SODIUM (BEAKER) (test 140 meq/L 136-145 hdqj=396) POTASSIUM (BEAKER) (test 4.9 meq/L 3.5-5.1 Specimen slightly ehwn=423) hemolyzed CHLORIDE (BEAKER) (test 101 meq/L 98-107 goju=968) CO2 (BEAKER) (test 32 meq/L 22-29 pkul=542) BLOOD UREA NITROGEN 27 mg/dL 7-21 (BEAKER) (test iujk=219) CREATININE (BEAKER) (test 1.22 mg/dL 0.57-1.25 Specimen slightly yonm=772) hemolyzed GLUCOSE RANDOM (BEAKER) 106 mg/dL 70-105 (test yxox=683) CALCIUM (BEAKER) (test 8.7 mg/dL 8.4-10.2 kaiw=471) EGFR (BEAKER) (test 58 mL/min/1.73 sq m ESTIMATED GFR IS NOT vrow=0942) ACCURATE CREATININE CLEARANCE IN PREDICTING GLOMERULAR FILTRATION RATE. ESTIMATED GFR IS NOT APPLICABLE FOR DIALYSIS PATIENTS. [id number] 04:41:00 Test Item Value Reference Range Comments PARTIAL THROMBOPLASTIN TIME (BEAKER) (test 35.4 seconds 22.5-36.0 trja=970) CBC (HEMOGRAM ONLY)2018-12-23 04:33:00 Test Item Value Reference Range Comments WHITE BLOOD CELL COUNT (BEAKER) (test wibc=761) 11.1 K/ L 3.5-10.5 RED BLOOD CELL COUNT (BEAKER) (test mckh=463) 3.55 M/ L 4.63-6.08 HEMOGLOBIN (BEAKER) (test lapb=293) 9.3 GM/DL 13.7-17.5 HEMATOCRIT (BEAKER) (test swni=646) 30.3 % 40.1-51.0 MEAN CORPUSCULAR VOLUME (BEAKER) (test kxny=287) 85.4 fL 79.0-92.2 MEAN CORPUSCULAR HEMOGLOBIN (BEAKER) (test 26.2 pg 25.7-32.2 nusm=561) MEAN CORPUSCULAR HEMOGLOBIN CONC (BEAKER) (test 30.7 GM/DL 32.3-36.5 injg=654) RED CELL DISTRIBUTION WIDTH (BEAKER) (test 14.9 % 11.6-14.4 bgac=309) PLATELET COUNT (BEAKER) (test irbl=895) 292 K/CU MM 150-450 MEAN PLATELET VOLUME (BEAKER) (test vbyc=041) 10.5 fL 9.4-12.4 NUCLEATED RED BLOOD CELLS (BEAKER) (test 0 /100 WBC 0-0 kqaz=065) POCT-GLUCOSE [id number] 21:25:00 Test Item Value Reference Range Comments POC-GLUCOSE METER (BEAKER) 151 mg/dL 70-110 TESTED AT [address] (test bhnb=5524) [place] [address] [id number] 19:38:00 Test Item Value Reference Range Comments PARTIAL THROMBOPLASTIN TIME (BEAKER) (test 38.7 seconds 22.5-36.0 cbfq=090) POCT-GLUCOSE [id number] 18:50:00 Test Item Value Reference Range Comments POC-GLUCOSE METER (BEAKER) 126 mg/dL 70-110 TESTED AT [address] (test sifn=0943) [place] [address] [id number] 16:08:00 Test Item Value Reference Range Comments POTASSIUM (BEAKER) (test drnq=210) 4.7 meq/L 3.5-5.1 PRN - repeat potassium levels every 1 hour until glucose level is less than 450 mg/[id number] 16:08:00 Test Item Value Reference Range Comments MAGNESIUM (BEAKER) (test ijos=822) 2.2 mg/dL 1.6-2.6 PRN - repeat potassium levels every 1 hour until glucose level is less than 450 mg/dLPOCT-GLUCOSE [id number] 11:44:00 Test Item Value Reference Range Comments POC-GLUCOSE METER (BEAKER) 134 mg/dL 70-110 TESTED AT [address] (test wnbs=9398) [place] [address] POCT-GLUCOSE [id number] 08:15:00 Test Item Value Reference Range Comments POC-GLUCOSE METER (BEAKER) 173 mg/dL 70-110 TESTED AT [address] (test tbtj=5324) [place] [address] RAD, CHEST, 1 VIEW, NON [id number] 07:38:00Reason for exam:->pulmonary edemaShould this be performed [...] Rosendo [place] Verified Date/Time: 07:38:37 Reading Location: [facility] Radiology Reading Room CALCIUM, [id number] 05:13:00 Test Item Value Reference Range Comments CALCIUM IONIZED (BEAKER) (test xpuv=639) 1.12 mmol/L 1.12-1.27 PH, BLOOD (BEAKER) (test qwhh=2654) 7.40 [id number] 04:53:00 Test Item Value Reference Range Comments PHOSPHORUS (BEAKER) (test bqln=168) 3.5 mg/dL 2.3-4.7 [id number] 04:53:00 Test Item Value Reference Range Comments MAGNESIUM (BEAKER) (test jgga=731) 2.0 mg/dL 1.6-2.6 BASIC METABOLIC [id number] 04:53:00 Test Item Value Reference Range Comments SODIUM (BEAKER) (test 142 meq/L 136-145 tmrc=527) POTASSIUM (BEAKER) (test 4.7 meq/L 3.5-5.1 omwy=711) CHLORIDE (BEAKER) (test 103 meq/L 98-107 evir=596) CO2 (BEAKER) (test 32 meq/L 22-29 zltl=487) BLOOD UREA NITROGEN 27 mg/dL 7-21 (BEAKER) (test vwor=117) CREATININE (BEAKER) (test 1.08 mg/dL 0.57-1.25 vyty=325) GLUCOSE RANDOM (BEAKER) 95 mg/dL 70-105 (test aoqe=135) CALCIUM (BEAKER) (test 8.5 mg/dL 8.4-10.2 thwk=476) EGFR (BEAKER) (test 67 mL/min/1.73 sq m ESTIMATED GFR IS NOT qrrv=8862) ACCURATE CREATININE CLEARANCE IN PREDICTING GLOMERULAR FILTRATION RATE. ESTIMATED GFR IS NOT APPLICABLE FOR DIALYSIS PATIENTS. CBC (HEMOGRAM ONLY)2018-12-22 04:26:00 Test Item Value Reference Range Comments WHITE BLOOD CELL COUNT (BEAKER) (test puwm=770) 11.4 K/ L 3.5-10.5 RED BLOOD CELL COUNT (BEAKER) (test mqox=515) 3.47 M/ L 4.63-6.08 HEMOGLOBIN (BEAKER) (test royh=210) 9.0 GM/DL 13.7-17.5 HEMATOCRIT (BEAKER) (test legn=688) 29.7 % 40.1-51.0 MEAN CORPUSCULAR VOLUME (BEAKER) (test prmq=085) 85.6 fL 79.0-92.2 MEAN CORPUSCULAR HEMOGLOBIN (BEAKER) (test 25.9 pg 25.7-32.2 mcry=685) MEAN CORPUSCULAR HEMOGLOBIN CONC (BEAKER) (test 30.3 GM/DL 32.3-36.5 mloy=758) RED CELL DISTRIBUTION WIDTH (BEAKER) (test 15.0 % 11.6-14.4 bhpc=220) PLATELET COUNT (BEAKER) (test lrle=120) 257 K/CU MM 150-450 MEAN PLATELET VOLUME (BEAKER) (test tobh=059) 10.8 fL 9.4-12.4 NUCLEATED RED BLOOD CELLS (BEAKER) (test 0 /100 WBC 0-0 ywdp=353) POCT-GLUCOSE [id number] 22:07:00 Test Item Value Reference Range Comments POC-GLUCOSE METER (BEAKER) 182 mg/dL 70-110 TESTED AT [address] (test gkia=4968) [facility] [address] POCT-GLUCOSE [id number] 17:42:00 Test Item Value Reference Range Comments POC-GLUCOSE METER (BEAKER) 183 mg/dL 70-110 TESTED AT [address] (test yhjb=6775) [facility] [address] [id number] 13:25:00 Test Item Value Reference Range Comments MAGNESIUM (BEAKER) (test 2.2 mg/dL 1.6-2.6 Specimen slightly hemolyzed oqfa=619) Check Serum Magnesium level 2 hours after IV magnesium replacement.Check Serum Phosphorus level 4 hours after IV phosphorus replacement or 8 hours after PO replacement completed.Check Serum Potassium level 2 hours after oral potassium replacement completed or 30 min after intravenous potassium replacement.[id number] 13:25:00 Test Item Value Reference Range Comments PHOSPHORUS (BEAKER) (test 3.3 mg/dL 2.3-4.7 Specimen slightly hemolyzed twmz=439) Check Serum Magnesium level 2 hours after IV magnesium replacement.Check Serum Phosphorus level 4 hours after IV phosphorus replacement or 8 hours after PO replacement completed.Check Serum Potassium level 2 hours after oral potassium replacement completed or 30 min after intravenous potassium replacement.[id number] 13:25:00 Test Item Value Reference Range Comments POTASSIUM (BEAKER) (test 4.6 meq/L 3.5-5.1 Specimen slightly hemolyzed pmud=694) Check Serum Magnesium level 2 hours after IV magnesium replacement.Check Serum Phosphorus level 4 hours after IV phosphorus replacement or 8 hours after PO replacement completed.Check Serum Potassium level 2 hours after oral potassium replacement completed or 30 min after intravenous potassium replacement.CALCIUM , [id number] 13:04:00 Test Item Value Reference Range Comments CALCIUM IONIZED (BEAKER) (test kqus=106) 1.13 mmol/L 1.12-1.27 PH, BLOOD (BEAKER) (test wogp=1817) 7.45 Check serum Ionized Calcium level after 4 hours after IV Calcium replacement.POCT-GLUCOSE [id number] 11:41:00 Test Item Value Reference Range Comments POC-GLUCOSE METER (BEAKER) 155 mg/dL 70-110 TESTED AT [address] (test lwqe=0896) [facility] [address] RAD, CHEST, 1 VIEW, NON [id number] 09:25:00Reason for exam:->pulmonary edemaShould this be performed [...] REDDYeport Verified Date/Time: 12/21/2018 09:25:43 Reading Location: [facility] C013V Neuro Reading Room POCT-GLUCOSE [id number] 07:42: 00 Test Item Value Reference Range Comments POC-GLUCOSE METER (BEAKER) 138 mg/dL 70-110 TESTED AT [facility] [address] (test kcwn=1356) [facility] [address] [id number] 06:04:00 Test Item Value Reference Range Comments PHOSPHORUS (BEAKER) (test xskk=450) 3.0 mg/dL 2.3-4.7 [id number] 06:04:00 Test Item Value Reference Range Comments MAGNESIUM (BEAKER) (test ossv=640) 2.3 mg/dL 1.6-2.6 BASIC METABOLIC [id number] 06:04:00 Test Item Value Reference Range Comments SODIUM (BEAKER) (test 139 meq/L 136-145 rywu=739) POTASSIUM (BEAKER) (test 4.3 meq/L 3.5-5.1 nocw=796) CHLORIDE (BEAKER) (test 100 meq/L 98-107 dwgb=933) CO2 (BEAKER) (test 32 meq/L 22-29 vltl=957) BLOOD UREA NITROGEN 25 mg/dL 7-21 (BEAKER) (test cfcw=749) CREATININE (BEAKER) (test 1.04 mg/dL 0.57-1.25 wqfl=271) GLUCOSE RANDOM (BEAKER) 114 mg/dL 70-105 (test wibi=858) CALCIUM (BEAKER) (test 8.0 mg/dL 8.4-10.2 ixst=461) EGFR (BEAKER) (test 70 mL/min/1.73 sq m ESTIMATED GFR IS NOT zeip=1021) ACCURATE CREATININE CLEARANCE IN PREDICTING GLOMERULAR FILTRATION RATE. ESTIMATED GFR IS NOT APPLICABLE FOR DIALYSIS PATIENTS. CALCIUM, [id number] 05:37:00 Test Item Value Reference Range Comments CALCIUM IONIZED (BEAKER) (test ywtm=378) 1.10 mmol/L 1.12-1.27 PH, BLOOD (BEAKER) (test hhru=1458) 7.41 CBC (HEMOGRAM ONLY)2018-12-21 04:45:00 Test Item Value Reference Range Comments WHITE BLOOD CELL COUNT (BEAKER) (test dcsa=107) 11.6 K/ L 3.5-10.5 RED BLOOD CELL COUNT (BEAKER) (test aaln=371) 3.74 M/ L 4.63-6.08 HEMOGLOBIN (BEAKER) (test qqbf=780) 9.8 GM/DL 13.7-17.5 HEMATOCRIT (BEAKER) (test fjvk=433) 31.6 % 40.1-51.0 MEAN CORPUSCULAR VOLUME (BEAKER) (test obdb=724) 84.5 fL 79.0-92.2 MEAN CORPUSCULAR HEMOGLOBIN (BEAKER) (test 26.2 pg 25.7-32.2 gcpp=861) MEAN CORPUSCULAR HEMOGLOBIN CONC (BEAKER) (test 31.0 GM/DL 32.3-36.5 royg=913) RED CELL DISTRIBUTION WIDTH (BEAKER) (test 15.1 % 11.6-14.4 qsas=001) PLATELET COUNT (BEAKER) (test iize=206) 250 K/CU MM 150-450 MEAN PLATELET VOLUME (BEAKER) (test mwjb=441) 10.7 fL 9.4-12.4 NUCLEATED RED BLOOD CELLS (BEAKER) (test 0 /100 WBC 0-0 efkw=879) [id number] 00:49:00 Test Item Value Reference Range Comments POTASSIUM (BEAKER) (test qlsc=923) 4.6 meq/L 3.5-5.1 [id number] 00:49:00 Test Item Value Reference Range Comments MAGNESIUM (BEAKER) (test bxqq=323) 2.0 mg/dL 1.6-2.6 POCT-GLUCOSE [id number] 22:01:00 Test Item Value Reference Range Comments POC-GLUCOSE METER (BEAKER) 163 mg/dL 70-110 TESTED AT [facility] [address] (test hcse=3729) [place] [address] [id number] 17:05:00 Test Item Value Reference Range Comments POTASSIUM (BEAKER) (test iyyj=670) 3.7 meq/L 3.5-5.1 [id number] 17:05:00 Test Item Value Reference Range Comments MAGNESIUM (BEAKER) (test itqp=218) 2.1 mg/dL 1.6-2.6 POCT-GLUCOSE [id number] 16:53:00 Test Item Value Reference Range Comments POC-GLUCOSE METER (BEAKER) 147 mg/dL 70-110 TESTED AT [address] (test wmxj=9126) [place] [address] POCT-GLUCOSE [id number] 12:24:00 Test Item Value Reference Range Comments POC-GLUCOSE METER (BEAKER) 123 mg/dL 70-110 TESTED AT [address] (test xafc=3058) [place] [address] [id number] 10:35:00 Test Item Value Reference Range Comments POTASSIUM (BEAKER) (test zmrx=521) 3.7 meq/L 3.5-5.1 [id number] 10:35:00 Test Item Value Reference Range Comments MAGNESIUM (BEAKER) (test ctkj=728) 2.1 mg/dL 1.6-2.6 POCT-GLUCOSE [id number] 07:55:00 Test Item Value Reference Range Comments POC-GLUCOSE METER (BEAKER) 137 mg/dL 70-110 TESTED AT [address] (test zeva=2528) [place] [address] RAD, CHEST, 1 VIEW, NON [id number] 07:36:00Reason for exam:->pulmonary edemaShould this be performed [...] MDReport Verified Date/Time: 12/20/2018 07:36:57 Reading Location: [address] Neuro Reading Room POTASSIUM-STAT [id number] 04:45:00 Test Item Value Reference Range Comments POTASSIUM (BEAKER) (test anjp=769) 3.6 meq/L 3.6-5.5 CALCIUM, [id number] 04:45:00 Test Item Value Reference Range Comments CALCIUM IONIZED (BEAKER) (test mpny=861) 1.11 mmol/L 1.12-1.27 PH, BLOOD (BEAKER) (test uubi=1921) 7.48 [id number] 04:39:00 Test Item Value Reference Range Comments PHOSPHORUS (BEAKER) (test ernc=117) 2.6 mg/dL 2.3-4.7 [id number] 04:39:00 Test Item Value Reference Range Comments MAGNESIUM (BEAKER) (test suln=867) 2.1 mg/dL 1.6-2.6 BASIC METABOLIC [id number] 04:39:00 Test Item Value Reference Range Comments SODIUM (BEAKER) (test 138 meq/L 136-145 zzwu=165) POTASSIUM (BEAKER) (test 3.7 meq/L 3.5-5.1 yzqv=801) CHLORIDE (BEAKER) (test 101 meq/L 98-107 ahpv=756) CO2 (BEAKER) (test 30 meq/L 22-29 equy=173) BLOOD UREA NITROGEN 24 mg/dL 7-21 (BEAKER) (test kcvi=117) CREATININE (BEAKER) (test 0.95 mg/dL 0.57-1.25 hytl=841) GLUCOSE RANDOM (BEAKER) 113 mg/dL 70-105 (test qqqd=960) CALCIUM (BEAKER) (test 8.2 mg/dL 8.4-10.2 dvxy=074) EGFR (BEAKER) (test 78 mL/min/1.73 sq m ESTIMATED GFR IS NOT dxvo=6025) ACCURATE CREATININE CLEARANCE IN PREDICTING GLOMERULAR FILTRATION RATE. ESTIMATED GFR IS NOT APPLICABLE FOR DIALYSIS PATIENTS. CBC (HEMOGRAM ONLY)2018-12-20 04:25:00 Test Item Value Reference Range Comments WHITE BLOOD CELL COUNT (BEAKER) (test cycv=201) 12.1 K/ L 3.5-10.5 RED BLOOD CELL COUNT (BEAKER) (test kzbe=145) 3.60 M/ L 4.63-6.08 HEMOGLOBIN (BEAKER) (test qlxc=471) 9.7 GM/DL 13.7-17.5 HEMATOCRIT (BEAKER) (test zvpo=727) 30.4 % 40.1-51.0 MEAN CORPUSCULAR VOLUME (BEAKER) (test jfwc=852) 84.4 fL 79.0-92.2 MEAN CORPUSCULAR HEMOGLOBIN (BEAKER) (test 26.9 pg 25.7-32.2 hwuu=166) MEAN CORPUSCULAR HEMOGLOBIN CONC (BEAKER) (test 31.9 GM/DL 32.3-36.5 vqlp=855) RED CELL DISTRIBUTION WIDTH (BEAKER) (test 14.9 % 11.6-14.4 sfzc=491) PLATELET COUNT (BEAKER) (test sujz=685) 198 K/CU MM 150-450 MEAN PLATELET VOLUME (BEAKER) (test bmal=009) 11.3 fL 9.4-12.4 NUCLEATED RED BLOOD CELLS (BEAKER) (test 0 /100 WBC 0-0 uthd=440) [id number] 23:33:00 Test Item Value Reference Range Comments MAGNESIUM (BEAKER) (test scmy=093) 2.0 mg/dL 1.6-2.6 BASIC METABOLIC [id number] 23:33:00 Test Item Value Reference Range Comments SODIUM (BEAKER) (test 139 meq/L 136-145 zqxn=478) POTASSIUM (BEAKER) (test 3.7 meq/L 3.5-5.1 adev=899) CHLORIDE (BEAKER) (test 102 meq/L 98-107 seoi=912) CO2 (BEAKER) (test 29 meq/L 22-29 qtbv=068) BLOOD UREA NITROGEN 26 mg/dL 7-21 (BEAKER) (test qjli=961) CREATININE (BEAKER) (test 0.98 mg/dL 0.57-1.25 yvju=545) GLUCOSE RANDOM (BEAKER) 120 mg/dL 70-105 (test yhcw=388) CALCIUM (BEAKER) (test 8.0 mg/dL 8.4-10.2 ysed=752) EGFR (BEAKER) (test 75 mL/min/1.73 sq m ESTIMATED GFR IS NOT yuyk=3700) ACCURATE CREATININE CLEARANCE IN PREDICTING GLOMERULAR FILTRATION RATE. ESTIMATED GFR IS NOT APPLICABLE FOR DIALYSIS PATIENTS. CALCIUM, [id number] 22:52:00 Test Item Value Reference Range Comments CALCIUM IONIZED (BEAKER) (test rzpa=550) 1.10 mmol/L 1.12-1.27 PH, BLOOD (BEAKER) (test flmq=4672) 7.43 POCT-GLUCOSE [id number] 21:53:00 Test Item Value Reference Range Comments POC-GLUCOSE METER (BEAKER) 138 mg/dL 70-110 TESTED AT [address] (test zsph=7007) [place] [address] POCT-GLUCOSE [id number] 18:02:00 Test Item Value Reference Range Comments POC-GLUCOSE METER (BEAKER) 185 mg/dL 70-110 TESTED AT [address] (test krti=6073) [place] [address] [id number] 15:24:00 Test Item Value Reference Range Comments POTASSIUM (BEAKER) (test ztgl=850) 4.0 meq/L 3.5-5.1 [id number] 15:24:00 Test Item Value Reference Range Comments MAGNESIUM (BEAKER) (test qcds=159) 2.1 mg/dL 1.6-2.6 POCT-GLUCOSE [id number] 13:05:00 Test Item Value Reference Range Comments POC-GLUCOSE METER (BEAKER) 156 mg/dL 70-110 TESTED AT [address] (test dduj=0223) [place] [id number] POCT-GLUCOSE [id number] 08:12:00 Test Item Value Reference Range Comments POC-GLUCOSE METER (BEAKER) 108 mg/dL 70-110 TESTED AT [address] (test xuac=5070) [place] [address] RAD, CHEST, 1 VIEW, NON [id number] 07:53:00Reason for exam:->pulmonary edemaShould this be performed [...] MDReport Verified Date/Time: 12/19/2018 07:53:09 Reading Location: [facility] Radiology Reading Room [id number] 03:56:00 Test Item Value Reference Range Comments PHOSPHORUS (BEAKER) (test nrvw=741) 2.4 mg/dL 2.3-4.7 [id number] 03:56:00 Test Item Value Reference Range Comments MAGNESIUM (BEAKER) (test zjqf=392) 2.0 mg/dL 1.6-2.6 BASIC METABOLIC [id number] 03:56:00 Test Item Value Reference Range Comments SODIUM (BEAKER) (test 139 meq/L 136-145 uhxc=133) POTASSIUM (BEAKER) (test 3.9 meq/L 3.5-5.1 hdwd=320) CHLORIDE (BEAKER) (test 106 meq/L 98-107 kfqa=301) CO2 (BEAKER) (test 27 meq/L 22-29 chuz=616) BLOOD UREA NITROGEN 25 mg/dL 7-21 (BEAKER) (test bguj=224) CREATININE (BEAKER) (test 0.90 mg/dL 0.57-1.25 dfac=417) GLUCOSE RANDOM (BEAKER) 116 mg/dL 70-105 (test dapi=062) CALCIUM (BEAKER) (test 8.1 mg/dL 8.4-10.2 foxa=985) EGFR (BEAKER) (test 83 mL/min/1.73 sq m ESTIMATED GFR IS NOT qiwy=8058) ACCURATE CREATININE CLEARANCE IN PREDICTING GLOMERULAR FILTRATION RATE. ESTIMATED GFR IS NOT APPLICABLE FOR DIALYSIS PATIENTS. CBC (HEMOGRAM ONLY)2018-12-19 03:34:00 Test Item Value Reference Range Comments WHITE BLOOD CELL COUNT (BEAKER) (test egey=105) 13.0 K/ L 3.5-10.5 RED BLOOD CELL COUNT (BEAKER) (test ylhz=725) 3.63 M/ L 4.63-6.08 HEMOGLOBIN (BEAKER) (test lyqg=825) 9.5 GM/DL 13.7-17.5 HEMATOCRIT (BEAKER) (test niwy=811) 30.4 % 40.1-51.0 MEAN CORPUSCULAR VOLUME (BEAKER) (test qwwv=997) 83.7 fL 79.0-92.2 MEAN CORPUSCULAR HEMOGLOBIN (BEAKER) (test 26.2 pg 25.7-32.2 lctn=974) MEAN CORPUSCULAR HEMOGLOBIN CONC (BEAKER) (test 31.3 GM/DL 32.3-36.5 caob=009) RED CELL DISTRIBUTION WIDTH (BEAKER) (test 14.9 % 11.6-14.4 amhf=048) PLATELET COUNT (BEAKER) (test eton=944) 149 K/CU MM 150-450 MEAN PLATELET VOLUME (BEAKER) (test rnrb=998) 11.6 fL 9.4-12.4 NUCLEATED RED BLOOD CELLS (BEAKER) (test 0 /100 WBC 0-0 ptpx=756) CALCIUM, [id number] 03:29:00 Test Item Value Reference Range Comments CALCIUM IONIZED (BEAKER) (test eidd=976) 1.10 mmol/L 1.12-1.27 PH, BLOOD (BEAKER) (test doom=7872) 7.47 POCT-GLUCOSE [id number] 22:30:00 Test Item Value Reference Range Comments POC-GLUCOSE METER (BEAKER) 115 mg/dL 70-110 TESTED AT [facility] [address] (test eztm=4730) [facility] [address] [id number] 20:25:00 Test Item Value Reference Range Comments MAGNESIUM (BEAKER) (test mxes=697) 2.1 mg/dL 1.6-2.6 BASIC METABOLIC [id number] 20:25:00 Test Item Value Reference Range Comments SODIUM (BEAKER) (test 137 meq/L 136-145 yrwx=180) POTASSIUM (BEAKER) (test 4.1 meq/L 3.5-5.1 eoua=315) CHLORIDE (BEAKER) (test 105 meq/L 98-107 bcnu=476) CO2 (BEAKER) (test 26 meq/L 22-29 wcbu=405) BLOOD UREA NITROGEN 25 mg/dL 7-21 (BEAKER) (test hvhi=343) CREATININE (BEAKER) (test 0.91 mg/dL 0.57-1.25 edph=140) GLUCOSE RANDOM (BEAKER) 180 mg/dL 70-105 (test zjly=350) CALCIUM (BEAKER) (test 8.0 mg/dL 8.4-10.2 wosd=255) EGFR (BEAKER) (test 82 mL/min/1.73 sq m ESTIMATED GFR IS NOT zkmt=2112) ACCURATE CREATININE CLEARANCE IN PREDICTING GLOMERULAR FILTRATION RATE. ESTIMATED GFR IS NOT APPLICABLE FOR DIALYSIS PATIENTS. CALCIUM, [id number] 20:03:00 Test Item Value Reference Range Comments CALCIUM IONIZED (BEAKER) (test ohqr=876) 1.14 mmol/L 1.12-1.27 PH, BLOOD (BEAKER) (test anif=8944) 7.48 POCT-GLUCOSE [id number] 17:42:00 Test Item Value Reference Range Comments POC-GLUCOSE METER (BEAKER) 125 mg/dL 70-110 TESTED AT [address] (test fpqb=0511) [facility] [address] [id number] 13:50:00 Test Item Value Reference Range Comments MAGNESIUM (BEAKER) (test 2.1 mg/dL 1.6-2.6 Specimen slightly hemolyzed jkov=620) Check Serum Magnesium level 2 hours after IV magnesium replacement.Check Serum Potassium level 2 hours after oral potassium replacement completed or 30 min after intravenous potassium replacement.[id number] 13:50:00 Test Item Value Reference Range Comments POTASSIUM (BEAKER) (test 4.4 meq/L 3.5-5.1 Specimen slightly hemolyzed uimj=956) Check Serum Magnesium level 2 hours after IV magnesium replacement.Check Serum Potassium level 2 hours after oral potassium replacement completed or 30 min after intravenous potassium replacement.POCT-GLUCOSE [id number] 12:31:00 Test Item Value Reference Range Comments POC-GLUCOSE METER (BEAKER) 165 mg/dL 70-110 TESTED AT [facility] [address] (test lfjz=2279) [facility] [address] RAD, CHEST, 1 VIEW, NON [id number] 08:44:00Reason for exam:->SOBShould this be performed at [...] Verified Date/Time: 12/18/2018 08:44 :28 Reading Location: [facility] Radiology Reading Room POCT-GLUCOSE [id number] 08:02:00 Test Item Value Reference Range Comments POC-GLUCOSE METER (BEAKER) 154 mg/dL 70-110 TESTED AT [address] (test fupf=1804) [facility] [address] BLOOD GAS, [id number] 07:34:00 Test Item Value Reference Range Comments PH ARTERIAL (BEAKER) (test lvds=431) 7.46 7.35-7.45 PCO2 ARTERIAL (BEAKER) (test vorh=789) 37 mmHg 35-45 PO2 ARTERIAL (BEAKER) (test qldh=706) 69 mmHg 80-90 O2 SATURATION ARTERIAL (BEAKER) (test mxll=882) 94.8 % 96.0-97.0 HCO3 ARTERIAL (BEAKER) (test jkzg=149) 26 mmol/L 21-29 BASE EXCESS ARTERIAL (BEAKER) (test yawt=809) 1.8 mmol/L -2.0-3.0 PATIENT TEMPERATURE (BEAKER) (test rftc=3324) 37.0 C FIO2 (BEAKER) (test brvk=5933) 40.0 % [id number] 05:04:00 Test Item Value Reference Range Comments PHOSPHORUS (BEAKER) (test mnoh=520) 2.1 mg/dL 2.3-4.7 [id number] 05:04:00 Test Item Value Reference Range Comments MAGNESIUM (BEAKER) (test sszf=669) 2.0 mg/dL 1.6-2.6 BASIC METABOLIC [id number] 05:04:00 Test Item Value Reference Range Comments SODIUM (BEAKER) (test 136 meq/L 136-145 yxok=401) POTASSIUM (BEAKER) (test 4.4 meq/L 3.5-5.1 yere=387) CHLORIDE (BEAKER) (test 107 meq/L 98-107 miwz=509) CO2 (BEAKER) (test 24 meq/L 22-29 hgja=777) BLOOD UREA NITROGEN 22 mg/dL 7-21 (BEAKER) (test pyze=888) CREATININE (BEAKER) (test 0.89 mg/dL 0.57-1.25 qrsm=845) GLUCOSE RANDOM (BEAKER) 135 mg/dL 70-105 (test dumd=405) CALCIUM (BEAKER) (test 8.2 mg/dL 8.4-10.2 ydcv=012) EGFR (BEAKER) (test 84 mL/min/1.73 sq m ESTIMATED GFR IS NOT scyd=0171) ACCURATE CREATININE CLEARANCE IN PREDICTING GLOMERULAR FILTRATION RATE. ESTIMATED GFR IS NOT APPLICABLE FOR DIALYSIS PATIENTS. CBC (HEMOGRAM ONLY)2018-12-18 04:28:00 Test Item Value Reference Range Comments WHITE BLOOD CELL COUNT (BEAKER) (test pazs=743) 17.0 K/ L 3.5-10.5 RED BLOOD CELL COUNT (BEAKER) (test lfwd=315) 3.89 M/ L 4.63-6.08 HEMOGLOBIN (BEAKER) (test kvjp=124) 10.2 GM/DL 13.7-17.5 HEMATOCRIT (BEAKER) (test ljpl=689) 32.9 % 40.1-51.0 MEAN CORPUSCULAR VOLUME (BEAKER) (test dlrm=901) 84.6 fL 79.0-92.2 MEAN CORPUSCULAR HEMOGLOBIN (BEAKER) (test 26.2 pg 25.7-32.2 witj=308) MEAN CORPUSCULAR HEMOGLOBIN CONC (BEAKER) (test 31.0 GM/DL 32.3-36.5 spad=604) RED CELL DISTRIBUTION WIDTH (BEAKER) (test 14.8 % 11.6-14.4 seak=275) PLATELET COUNT (BEAKER) (test utxs=118) 143 K/CU MM 150-450 MEAN PLATELET VOLUME (BEAKER) (test pwvc=795) 12.2 fL 9.4-12.4 NUCLEATED RED BLOOD CELLS (BEAKER) (test 0 /100 WBC 0-0 zinj=117) BLOOD GAS, [id number] 03:26:00 Test Item Value Reference Range Comments PH ARTERIAL (BEAKER) (test gefn=763) 7.45 7.35-7.45 PCO2 ARTERIAL (BEAKER) (test kmhk=567) 37 mmHg 35-45 PO2 ARTERIAL (BEAKER) (test faxt=706) 100 mmHg 80-90 O2 SATURATION ARTERIAL (BEAKER) (test gsvy=772) 97.9 % 96.0-97.0 HCO3 ARTERIAL (BEAKER) (test jjwo=839) 25 mmol/L 21-29 BASE EXCESS ARTERIAL (BEAKER) (test caqt=117) 1.3 mmol/L -2.0-3.0 PATIENT TEMPERATURE (BEAKER) (test gmze=2550) 36.8 C FIO2 (BEAKER) (test dost=4431) 40.0 % CALCIUM, [id number] 03:26:00 Test Item Value Reference Range Comments CALCIUM IONIZED (BEAKER) (test gkxv=348) 1.13 mmol/L 1.12-1.27 PH, BLOOD (BEAKER) (test bcur=3445) 7.45 POCT-GLUCOSE [id number] 21:30:00 Test Item Value Reference Range Comments POC-GLUCOSE METER (BEAKER) 129 mg/dL 70-110 TESTED AT [address] (test pinb=0589) [facility] [address] POCT-GLUCOSE [id number] 18:18:00 Test Item Value Reference Range Comments POC-GLUCOSE METER (BEAKER) 165 mg/dL 70-110 TESTED AT [address] (test wgdk=4768) [facility] [address] BLOOD GAS, [id number] 18:09:00 Test Item Value Reference Range Comments PH ARTERIAL (BEAKER) (test amax=032) 7.47 7.35-7.45 PCO2 ARTERIAL (BEAKER) (test zhmw=130) 34 mmHg 35-45 PO2 ARTERIAL (BEAKER) (test bjtt=282) 79 mmHg 80-90 O2 SATURATION ARTERIAL (BEAKER) (test cfxa=478) 96.4 % 96.0-97.0 HCO3 ARTERIAL (BEAKER) (test kfci=715) 24 mmol/L 21-29 BASE EXCESS ARTERIAL (BEAKER) (test wcvb=455) 1.0 mmol/L -2.0-3.0 PATIENT TEMPERATURE (BEAKER) (test laxd=4611) 37.0 C FIO2 (BEAKER) (test cyho=0839) 40.0 % POCT-GLUCOSE [id number] 14:03:00 Test Item Value Reference Range Comments POC-GLUCOSE METER (BEAKER) 212 mg/dL 70-110 TESTED AT [address] (test ywmf=4484) [facility] [address] RAD, CHEST, 1 VIEW, NON [id number] 07:48:00Reason for exam:->intubated, post opShould this be performed at the bedside?->YesFINAL REPORT Chest x-ray Clinical History: intubated, post op Comparison: December Views: Two AP lordotic Chest x-ray:The cardiac and mediastinal silhouettes are within normal limits. There is no evidence of a pneumothorax. There is evidence of a small left pleural effusion. The patient's right internal jugular [place] catheter has been removed. There remains a right internal jugular sheath. The patient has been extubated with interval removal of a nasogastric tube. Sternotomy changes are present with multiple chest tubes. There are increased interstitial findings. Subsegmental atelectasis in left lower lobe retrocardiac space is suspected. Increased interstitial pulmonary edema is favored. Signed: Esther Pacheco Verified Date/Time: 07:48:21 Reading Location: [facility] Radiology Reading Room CALCIUM, [id number] 04:51:00 Test Item Value Reference Range Comments CALCIUM IONIZED (BEAKER) (test slxc=781) 1.13 mmol/L 1.12-1.27 PH, BLOOD (BEAKER) (test tuut=3746) 7.48 [id number] 03:42:00 Test Item Value Reference Range Comments PHOSPHORUS (BEAKER) (test exoq=363) 2.2 mg/dL 2.3-4.7 [id number] 03:42:00 Test Item Value Reference Range Comments MAGNESIUM (BEAKER) (test yfkg=658) 2.4 mg/dL 1.6-2.6 BASIC METABOLIC [id number] 03:42:00 Test Item Value Reference Range Comments SODIUM (BEAKER) (test 137 meq/L 136-145 kjzu=628) POTASSIUM (BEAKER) (test 4.5 meq/L 3.5-5.1 uqmi=931) CHLORIDE (BEAKER) (test 107 meq/L 98-107 cjkz=226) CO2 (BEAKER) (test 25 meq/L 22-29 bzgk=295) BLOOD UREA NITROGEN 20 mg/dL 7-21 (BEAKER) (test alkt=959) CREATININE (BEAKER) (test 0.81 mg/dL 0.57-1.25 wijf=416) GLUCOSE RANDOM (BEAKER) 159 mg/dL 70-105 (test zist=909) CALCIUM (BEAKER) (test 8.3 mg/dL 8.4-10.2 lwyo=433) EGFR (BEAKER) (test 94 mL/min/1.73 sq m ESTIMATED GFR IS NOT gnaj=3721) ACCURATE CREATININE CLEARANCE IN PREDICTING GLOMERULAR FILTRATION RATE. ESTIMATED GFR IS NOT APPLICABLE FOR DIALYSIS PATIENTS. BLOOD GAS, [id number] 03:41:00 Test Item Value Reference Range Comments PH ARTERIAL (BEAKER) (test nfvc=106) 7.46 7.35-7.45 PCO2 ARTERIAL (BEAKER) (test btcs=867) 38 mmHg 35-45 PO2 ARTERIAL (BEAKER) (test bnwo=236) 112 mmHg 80-90 O2 SATURATION ARTERIAL (BEAKER) (test ydqj=020) 98.2 % 96.0-97.0 HCO3 ARTERIAL (BEAKER) (test wcap=815) 26 mmol/L 21-29 BASE EXCESS ARTERIAL (BEAKER) (test ukkl=204) 2.7 mmol/L -2.0-3.0 PATIENT TEMPERATURE (BEAKER) (test isbp=6727) 37.9 C FIO2 (BEAKER) (test aiwe=6141) 40.0 % OXYGEN SATURATION, [id number] 03:37:00 Test Item Value Reference Range Comments O2 SATURATION (MEASURED) (BEAKER) (test laof=5116) 58.0 % CBC (HEMOGRAM ONLY)2018-12-17 03:18:00 Test Item Value Reference Range Comments WHITE BLOOD CELL COUNT (BEAKER) (test sdho=124) 18.4 K/ L 3.5-10.5 RED BLOOD CELL COUNT (BEAKER) (test vjkc=676) 4.11 M/ L 4.63-6.08 HEMOGLOBIN (BEAKER) (test oxyu=054) 10.8 GM/DL 13.7-17.5 HEMATOCRIT (BEAKER) (test kncm=361) 34.4 % 40.1-51.0 MEAN CORPUSCULAR VOLUME (BEAKER) (test hkhb=593) 83.7 fL 79.0-92.2 MEAN CORPUSCULAR HEMOGLOBIN (BEAKER) (test 26.3 pg 25.7-32.2 oewo=860) MEAN CORPUSCULAR HEMOGLOBIN CONC (BEAKER) (test 31.4 GM/DL 32.3-36.5 pvvh=039) RED CELL DISTRIBUTION WIDTH (BEAKER) (test 14.6 % 11.6-14.4 eubj=530) PLATELET COUNT (BEAKER) (test xmjo=375) 141 K/CU MM 150-450 MEAN PLATELET VOLUME (BEAKER) (test psez=946) 11.6 fL 9.4-12.4 NUCLEATED RED BLOOD CELLS (BEAKER) (test 0 /100 WBC 0-0 pcln=765) [id number] 22:06:00 Test Item Value Reference Range Comments MAGNESIUM (BEAKER) (test zrpq=717) 2.0 mg/dL 1.6-2.6 BLOOD GAS, [id number] 21:50:00 Test Item Value Reference Range Comments PH ARTERIAL (BEAKER) (test bdpq=201) 7.54 7.35-7.45 PCO2 ARTERIAL (BEAKER) (test ryrl=778) 28 mmHg 35-45 PO2 ARTERIAL (BEAKER) (test wcji=556) 50 mmHg 80-90 O2 SATURATION ARTERIAL (BEAKER) (test ltld=954) 94.9 % 96.0-97.0 HCO3 ARTERIAL (BEAKER) (test hncv=514) 25 mmol/L 21-29 BASE EXCESS ARTERIAL (BEAKER) (test owdc=596) 1.5 mmol/L -2.0-3.0 PATIENT TEMPERATURE (BEAKER) (test nckl=6630) 32.1 C FIO2 (BEAKER) (test lyax=0385) 100.0 % GLUCOSE-STAT [id number] 21:50:00 Test Item Value Reference Range Comments GLUCOSE RANDOM (BEAKER) (test kwmg=003) 220 mg/dL 70-110 HGB/HCT (H&H) - STAT [id number] 21:50:00 Test Item Value Reference Range Comments HEMOGLOBIN (BEAKER) (test dfho=812) 11.4 g/dL 13.0-16.8 HEMATOCRIT (BEAKER) (test ryss=500) 34.0 % 40.0-50.0 OXYGEN SATURATION, [id number] 21:50:00 Test Item Value Reference Range Comments O2 SATURATION (MEASURED) (BEAKER) (test jctk=4693) 58.1 % SODIUM NA-STAT [id number] 21:49:00 Test Item Value Reference Range Comments SODIUM (BEAKER) (test oefd=157) 135 meq/L 135-148 POTASSIUM-STAT [id number] 21:49:00 Test Item Value Reference Range Comments POTASSIUM (BEAKER) (test tcxx=743) 4.2 meq/L 3.6-5.5 CALCIUM, [id number] 21:49:00 Test Item Value Reference Range Comments CALCIUM IONIZED (BEAKER) (test vfhh=267) 1.12 mmol/L 1.12-1.27 PH, BLOOD (BEAKER) (test owmm=2831) 7.47 POCT-GLUCOSE [id number] 18:28:00 Test Item Value Reference Range Comments POC-GLUCOSE METER (BEAKER) 138 mg/dL 70-110 TESTED AT [facility] [address] (test oigk=5245) [facility] [address] POCT-GLUCOSE [id number] 12:28:00 Test Item Value Reference Range Comments POC-GLUCOSE METER (BEAKER) 111 mg/dL 70-110 TESTED AT [address] (test xbnd=7727) [facility] [address] OXYGEN SATURATION, [id number] 09:45:00 Test Item Value Reference Range Comments O2 SATURATION (MEASURED) (BEAKER) (test lpwt=9590) 64.3 % POCT-GLUCOSE [id number] 09:33:00 Test Item Value Reference Range Comments POC-GLUCOSE METER (BEAKER) 102 mg/dL 70-110 TESTED AT [address] (test xrou=7829) [facility] [address] POCT-GLUCOSE [id number] 08:51:00 Test Item Value Reference Range Comments POC-GLUCOSE METER (BEAKER) 98 mg/dL 70-110 TESTED AT [address] (test jias=0314) [facility] [address] POCT-GLUCOSE [id number] 08:51:00 Test Item Value Reference Range Comments POC-GLUCOSE METER (BEAKER) 121 mg/dL 70-110 TESTED AT [address] (test xotk=4337) [facility] [address] LACTIC ACID, [id number] 07:52:00 Test Item Value Reference Range Comments LACTATE BLOOD ARTERIAL (2) 0.9 mmol/L 0.5-2.2 Specimen slightly hemolyzed (BEAKER) (test xtbx=3487) OXYGEN SATURATION, [id number] 07:18:00 Test Item Value Reference Range Comments O2 SATURATION (MEASURED) (BEAKER) (test ocgd=6193) 96.4 % RAD, CHEST, 1 VIEW, NON [id number] 06:10:00Reason for exam:->intubated, post opShould this be [...] Signed: Jaime Rojas Verified Date/Time: 12/16/2018 06:10:03 [id number] 04:05:00 Test Item Value Reference Range Comments PHOSPHORUS (BEAKER) (test oqgg=588) 3.2 mg/dL 2.3-4.7 [id number] 04:05:00 Test Item Value Reference Range Comments MAGNESIUM (BEAKER) (test yrof=090) 2.3 mg/dL 1.6-2.6 BASIC METABOLIC [id number] 04:05:00 Test Item Value Reference Range Comments SODIUM (BEAKER) (test 138 meq/L 136-145 xeix=126) POTASSIUM (BEAKER) (test 3.8 meq/L 3.5-5.1 ccmt=784) CHLORIDE (BEAKER) (test 104 meq/L 98-107 khug=920) CO2 (BEAKER) (test 28 meq/L 22-29 qkrg=696) BLOOD UREA NITROGEN 27 mg/dL 7-21 (BEAKER) (test nohb=920) CREATININE (BEAKER) (test 0.93 mg/dL 0.57-1.25 jbrk=275) GLUCOSE RANDOM (BEAKER) 103 mg/dL 70-105 (test aiyz=232) CALCIUM (BEAKER) (test 8.1 mg/dL 8.4-10.2 tzvb=192) EGFR (BEAKER) (test 80 mL/min/1.73 sq m ESTIMATED GFR IS NOT xplh=2641) ACCURATE CREATININE CLEARANCE IN PREDICTING GLOMERULAR FILTRATION RATE. ESTIMATED GFR IS NOT APPLICABLE FOR DIALYSIS PATIENTS. LACTIC ACID, [id number] 04:00:00 Test Item Value Reference Range Comments LACTATE BLOOD ARTERIAL (2) (BEAKER) (test 0.9 mmol/L 0.5-2.2 fugk=4381) BLOOD GAS, [id number] 03:48:00 Test Item Value Reference Range Comments PH ARTERIAL (BEAKER) (test ghxd=894) 7.43 7.35-7.45 PCO2 ARTERIAL (BEAKER) (test orbd=997) 43 mmHg 35-45 PO2 ARTERIAL (BEAKER) (test mthc=543) 113 mmHg 80-90 O2 SATURATION ARTERIAL (BEAKER) (test ufbg=042) 98.3 % 96.0-97.0 HCO3 ARTERIAL (BEAKER) (test xirf=308) 29 mmol/L 21-29 BASE EXCESS ARTERIAL (BEAKER) (test wzkz=507) 3.6 mmol/L -2.0-3.0 PATIENT TEMPERATURE (BEAKER) (test shle=8068) 36.4 C FIO2 (BEAKER) (test dsiq=5269) 40.0 % OXYGEN SATURATION, [id number] 03:45:00 Test Item Value Reference Range Comments O2 SATURATION (MEASURED) (BEAKER) (test pryx=0194) 64.9 % CBC (HEMOGRAM ONLY)2018-12-16 03:38:00 Test Item Value Reference Range Comments WHITE BLOOD CELL COUNT (BEAKER) (test gjoi=817) 16.8 K/ L 3.5-10.5 RED BLOOD CELL COUNT (BEAKER) (test wdgy=924) 4.05 M/ L 4.63-6.08 HEMOGLOBIN (BEAKER) (test vhgg=389) 10.6 GM/DL 13.7-17.5 HEMATOCRIT (BEAKER) (test utks=221) 33.6 % 40.1-51.0 MEAN CORPUSCULAR VOLUME (BEAKER) (test pech=214) 83.0 fL 79.0-92.2 MEAN CORPUSCULAR HEMOGLOBIN (BEAKER) (test 26.2 pg 25.7-32.2 nfrv=338) MEAN CORPUSCULAR HEMOGLOBIN CONC (BEAKER) (test 31.5 GM/DL 32.3-36.5 wrck=491) RED CELL DISTRIBUTION WIDTH (BEAKER) (test 14.0 % 11.6-14.4 sqci=702) PLATELET COUNT (BEAKER) (test uajw=639) 160 K/CU MM 150-450 MEAN PLATELET VOLUME (BEAKER) (test spay=862) 11.0 fL 9.4-12.4 NUCLEATED RED BLOOD CELLS (BEAKER) (test 0 /100 WBC 0-0 jlkx=113) [id number] 23:46:00 Test Item Value Reference Range Comments MAGNESIUM (BEAKER) (test 2.7 mg/dL 1.6-2.6 Specimen slightly hemolyzed kqxe=151) [id number] 23:46:00 Test Item Value Reference Range Comments POTASSIUM (BEAKER) (test 4.4 meq/L 3.5-5.1 Specimen slightly hemolyzed rtek=779) [id number] 23:46:00 Test Item Value Reference Range Comments GLUCOSE RANDOM (BEAKER) (test kesn=784) 131 mg/dL 70-105 BASIC METABOLIC [id number] 23:46:00 Test Item Value Reference Range Comments SODIUM (BEAKER) (test 137 meq/L 136-145 jimz=169) POTASSIUM (BEAKER) (test 4.4 meq/L 3.5-5.1 Specimen slightly bcyo=504) hemolyzed CHLORIDE (BEAKER) (test 103 meq/L 98-107 zera=268) CO2 (BEAKER) (test 27 meq/L 22-29 cnxj=371) BLOOD UREA NITROGEN 29 mg/dL 7-21 (BEAKER) (test znsj=495) CREATININE (BEAKER) (test 1.05 mg/dL 0.57-1.25 Specimen slightly hwfk=354) hemolyzed GLUCOSE RANDOM (BEAKER) 131 mg/dL 70-105 (test hbvs=282) CALCIUM (BEAKER) (test 8.2 mg/dL 8.4-10.2 xior=184) EGFR (BEAKER) (test 69 mL/min/1.73 sq m ESTIMATED GFR IS NOT knez=5104) ACCURATE CREATININE CLEARANCE IN PREDICTING GLOMERULAR FILTRATION RATE. ESTIMATED GFR IS NOT APPLICABLE FOR DIALYSIS PATIENTS. LACTIC ACID, [id number] 23:41:00 Test Item Value Reference Range Comments LACTATE BLOOD ARTERIAL (2) 0.9 mmol/L 0.5-2.2 Specimen slightly hemolyzed (BEAKER) (test nvzh=1429) CBC W/PLT COUNT & AUTO [id number] 23:30:00 Test Item Value Reference Range Comments WHITE BLOOD CELL COUNT (BEAKER) (test difp=920) 26.0 K/ L 3.5-10.5 RED BLOOD CELL COUNT (BEAKER) (test jcmi=960) 4.36 M/ L 4.63-6.08 HEMOGLOBIN (BEAKER) (test afue=044) 11.5 GM/DL 13.7-17.5 HEMATOCRIT (BEAKER) (test ixud=375) 36.1 % 40.1-51.0 MEAN CORPUSCULAR VOLUME (BEAKER) (test xken=052) 82.8 fL 79.0-92.2 MEAN CORPUSCULAR HEMOGLOBIN (BEAKER) (test 26.4 pg 25.7-32.2 negx=036) MEAN CORPUSCULAR HEMOGLOBIN CONC (BEAKER) (test 31.9 GM/DL 32.3-36.5 qimq=667) RED CELL DISTRIBUTION WIDTH (BEAKER) (test 14.0 % 11.6-14.4 fwcv=641) PLATELET COUNT (BEAKER) (test neul=304) 250 K/CU MM 150-450 MEAN PLATELET VOLUME (BEAKER) (test genf=968) 11.0 fL 9.4-12.4 NUCLEATED RED BLOOD CELLS (BEAKER) (test 0 /100 WBC 0-0 hist=198) NEUTROPHILS RELATIVE PERCENT (BEAKER) (test 89 % xnln=442) LYMPHOCYTES RELATIVE PERCENT (BEAKER) (test 3 % iiac=802) MONOCYTES RELATIVE PERCENT (BEAKER) (test 7 % ovtb=566) EOSINOPHILS RELATIVE PERCENT (BEAKER) (test 0 % efkn=882) BASOPHILS RELATIVE PERCENT (BEAKER) (test 0 % qvac=337) NEUTROPHILS ABSOLUTE COUNT (BEAKER) (test 23.10 K/ L 1.78-5.38 aomp=622) LYMPHOCYTES ABSOLUTE COUNT (BEAKER) (test 0.73 K/ L 1.32-3.57 vhbm=666) MONOCYTES ABSOLUTE COUNT (BEAKER) (test 1.83 K/ L 0.30-0.82 ykjg=829) EOSINOPHILS ABSOLUTE COUNT (BEAKER) (test 0.00 K/ L 0.04-0.54 yhdv=857) BASOPHILS ABSOLUTE COUNT (BEAKER) (test 0.06 K/ L 0.01-0.08 glan=969) IMMATURE GRANULOCYTES-RELATIVE PERCENT (BEAKER) 1 % 0-1 (test zfhe=8150) BLOOD GAS, [id number] 23:23:00 Test Item Value Reference Range Comments PH ARTERIAL (BEAKER) (test smns=190) 7.43 7.35-7.45 PCO2 ARTERIAL (BEAKER) (test jvpp=830) 44 mmHg 35-45 PO2 ARTERIAL (BEAKER) (test qktb=192) 93 mmHg 80-90 O2 SATURATION ARTERIAL (BEAKER) (test zwts=128) 97.5 % 96.0-97.0 HCO3 ARTERIAL (BEAKER) (test umag=204) 29 mmol/L 21-29 BASE EXCESS ARTERIAL (BEAKER) (test qzxr=902) 3.7 mmol/L -2.0-3.0 PATIENT TEMPERATURE (BEAKER) (test yrat=5243) 36.1 C FIO2 (BEAKER) (test slof=7210) 40.0 % GLUCOSE-STAT [id number] 23:23:00 Test Item Value Reference Range Comments GLUCOSE RANDOM (BEAKER) (test ktlr=314) 135 mg/dL 70-110 HGB/HCT (H&H) - STAT [id number] 23:23:00 Test Item Value Reference Range Comments HEMOGLOBIN (BEAKER) (test mbpn=378) 11.7 g/dL 13.0-16.8 HEMATOCRIT (BEAKER) (test tydk=386) 34.0 % 40.0-50.0 SODIUM NA-STAT [id number] 23:22:00 Test Item Value Reference Range Comments SODIUM (BEAKER) (test xhxf=632) 137 meq/L 135-148 POTASSIUM-STAT [id number] 23:22:00 Test Item Value Reference Range Comments POTASSIUM (BEAKER) (test hdis=550) 4.0 meq/L 3.6-5.5 CALCIUM, [id number] 23:22:00 Test Item Value Reference Range Comments CALCIUM IONIZED (BEAKER) (test dtik=748) 1.14 mmol/L 1.12-1.27 PH, BLOOD (BEAKER) (test ffqb=5381) 7.42 OXYGEN SATURATION, [id number] 23:21:00 Test Item Value Reference Range Comments O2 SATURATION (MEASURED) (BEAKER) (test aeob=5951) 73.1 % POCT-GLUCOSE [id number] 23:14:00 Test Item Value Reference Range Comments POC-GLUCOSE METER (BEAKER) 139 mg/dL 70-110 TESTED AT [address] (test kftw=9301) [place] [address] POCT-GLUCOSE [id number] 18:37:00 Test Item Value Reference Range Comments POC-GLUCOSE METER (BEAKER) 137 mg/dL 70-110 TESTED AT [address] (test batq=8221) [place] [address] SPUTUM CULTURE + GRAM [id number] 17:48:00 Test Item Value Reference Range Comments CULTURE (BEAKER) 4+ Burkholderia gladioli (test puoa=2829) GRAM STAIN RESULT 1+ WBCs (BEAKER) (test xjgz=5560) GRAM STAIN RESULT 0-5 epithelial cells (BEAKER) (test xkiv=464822) GRAM STAIN RESULT 2+ gram positive cocci (BEAKER) (test in chains and pairs ffcg=357516) GRAM STAIN RESULT 1+ gram positive cocci (BEAKER) (test in clusters ilhy=132705) 4+ Normal respiratory deandra presentPOCT-GLUCOSE [id number] 17:06:00 Test Item Value Reference Range Comments POC-GLUCOSE METER (BEAKER) 129 mg/dL 70-110 TESTED AT [address] (test csoz=6663) [place] [id number] POCT-GLUCOSE [id number] 15:21:00 Test Item Value Reference Range Comments POC-GLUCOSE METER (BEAKER) 152 mg/dL 70-110 TESTED AT [address] (test vnvc=7307) [place] [id number] BASIC METABOLIC [id number] 14:59:00 Test Item Value Reference Range Comments SODIUM (BEAKER) (test 137 meq/L 136-145 pbjx=245) POTASSIUM (BEAKER) (test 4.2 meq/L 3.5-5.1 xneu=711) CHLORIDE (BEAKER) (test 102 meq/L 98-107 hypm=718) CO2 (BEAKER) (test 28 meq/L 22-29 begi=710) BLOOD UREA NITROGEN 31 mg/dL 7-21 (BEAKER) (test dzjk=482) CREATININE (BEAKER) (test 1.08 mg/dL 0.57-1.25 swxp=312) GLUCOSE RANDOM (BEAKER) 183 mg/dL 70-105 (test xglk=103) CALCIUM (BEAKER) (test 7.9 mg/dL 8.4-10.2 bgof=286) EGFR (BEAKER) (test 67 mL/min/1.73 sq m ESTIMATED GFR IS NOT xzuw=0516) ACCURATE CREATININE CLEARANCE IN PREDICTING GLOMERULAR FILTRATION RATE. ESTIMATED GFR IS NOT APPLICABLE FOR DIALYSIS PATIENTS. CBC W/PLT COUNT & AUTO [id number] 14:49:00 Test Item Value Reference Range Comments WHITE BLOOD CELL COUNT (BEAKER) (test zqae=962) 22.5 K/ L 3.5-10.5 RED BLOOD CELL COUNT (BEAKER) (test ysec=734) 4.32 M/ L 4.63-6.08 HEMOGLOBIN (BEAKER) (test ttoo=956) 11.4 GM/DL 13.7-17.5 HEMATOCRIT (BEAKER) (test jcnp=317) 36.0 % 40.1-51.0 MEAN CORPUSCULAR VOLUME (BEAKER) (test ydee=089) 83.3 fL 79.0-92.2 MEAN CORPUSCULAR HEMOGLOBIN (BEAKER) (test 26.4 pg 25.7-32.2 weyw=086) MEAN CORPUSCULAR HEMOGLOBIN CONC (BEAKER) (test 31.7 GM/DL 32.3-36.5 rufs=903) RED CELL DISTRIBUTION WIDTH (BEAKER) (test 13.8 % 11.6-14.4 cuhh=946) PLATELET COUNT (BEAKER) (test emsi=611) 182 K/CU MM 150-450 MEAN PLATELET VOLUME (BEAKER) (test dial=521) 11.0 fL 9.4-12.4 NUCLEATED RED BLOOD CELLS (BEAKER) (test 0 /100 WBC 0-0 ctmz=828) (CELLAVISION MANUAL DIFF)2018-12-15 14:49:00 Test Item Value Reference Range Comments NEUTROPHILS - REL (CELLAVISION)(BEAKER) (test 93 % hora=2286) LYMPHOCYTES - REL (CELLAVISION)(BEAKER) (test 2 % zxlg=4999) MONOCYTES - REL (CELLAVISION)(BEAKER) (test 2 % nifz=4593) MYELOCYTES - REL (CELLAVISION)(BEAKER) (test 1 % 0-0 ehve=8903) BANDS - REL (CELLAVISION)(BEAKER) (test 2 % 0-10 qpgo=5280) NEUTROPHILS - ABS (CELLAVISION)(BEAKER) (test 20.93 K/ul 1.78-5.38 bjtm=7827) LYMPHOCYTES - ABS (CELLAVISION)(BEAKER) (test 0.45 K/ul 1.32-3.57 fmwi=7937) MONOCYTES - ABS (CELLAVISION)(BEAKER) (test 0.45 K/uL 0.30-0.82 qahl=6308) MYELOCYTES-ABS (CELLAVISION)(BEAKER) (test 0.23 K/uL 0.00-0.00 hqgi=9872) BANDS - ABS (CELLAVISION)(BEAKER) (test 0.45 K/uL 0.00-0.80 nyym=8600) TOTAL COUNTED (BEAKER) (test wnqx=1272) 100 WBC MORPHOLOGY (BEAKER) (test yney=173) Normal PLT MORPHOLOGY (BEAKER) (test kdlo=802) Normal ANISOCYTOSIS (BEAKER) (test rxoi=984) 2+ moderate MICROCYTES (BEAKER) (test gdxl=481) 2+ moderate POIKILOCYTES (BEAKER) (test mcss=224) 1+ few ELLIPTOCYTES (BEAKER) (test abuj=969) 1+ few ARTIFACT (CELLAVISION)(BEAKER) (test snvk=5374) Present PLATELET CONCENTRATION (CELLAVISION)(BEAKER) Adequate (test taer=6365) Received comment: User comments: Slide comments:RAD, CHEST, 1 VIEW, NON [id number] 14:44:00Reason for exam:->post opShould this be performed [...] Date/Time: 12/15/2018 14:44:04 Reading Location: [facility] Mammo Reading Room LACTIC ACID, [id number] 14:41:00 Test Item Value Reference Range Comments LACTATE BLOOD ARTERIAL (2) (BEAKER) (test 1.2 mmol/L 0.5-2.2 shif=0915) [id number] 14:39:00 Test Item Value Reference Range Comments MAGNESIUM (BEAKER) (test nfvr=762) 1.9 mg/dL 1.6-2.6 OXYGEN SATURATION, [id number] 14:20:00 Test Item Value Reference Range Comments O2 SATURATION (MEASURED) (BEAKER) (test odni=2140) 62.8 % SODIUM NA-STAT [id number] 14:17:00 Test Item Value Reference Range Comments SODIUM (BEAKER) (test imzb=896) 136 meq/L 135-148 POTASSIUM-STAT [id number] 14:17:00 Test Item Value Reference Range Comments POTASSIUM (BEAKER) (test gvjq=731) 4.0 meq/L 3.6-5.5 BLOOD GAS, [id number] 14:17:00 Test Item Value Reference Range Comments PH ARTERIAL (BEAKER) (test eaqd=077) 7.38 7.35-7.45 PCO2 ARTERIAL (BEAKER) (test eesf=953) 45 mmHg 35-45 PO2 ARTERIAL (BEAKER) (test ulpb=329) 128 mmHg 80-90 O2 SATURATION ARTERIAL (BEAKER) (test lbbp=765) 98.6 % 96.0-97.0 HCO3 ARTERIAL (BEAKER) (test uxjw=971) 27 mmol/L 21-29 BASE EXCESS ARTERIAL (BEAKER) (test bqdt=796) 0.6 mmol/L -2.0-3.0 PATIENT TEMPERATURE (BEAKER) (test fuia=0197) 35.7 C FIO2 (BEAKER) (test eani=1917) 50.0 % GLUCOSE-STAT [id number] 14:17:00 Test Item Value Reference Range Comments GLUCOSE RANDOM (BEAKER) (test crhc=553) 181 mg/dL 70-110 HGB/HCT (H&H) - STAT [id number] 14:17:00 Test Item Value Reference Range Comments HEMOGLOBIN (BEAKER) (test knfa=474) 11.5 g/dL 13.0-16.8 HEMATOCRIT (BEAKER) (test avhz=736) 34.0 % 40.0-50.0 [id number] 13:03:00 Test Item Value Reference Range Comments ACTIVATED CLOTTING TIME 114 sec TESTED AT [facility] [address] [place] [address] (BEAKER) (test lori=131) [place] [address] [id number] 13:02:00 Test Item Value Reference Range Comments ACTIVATED CLOTTING TIME 472 sec TESTED AT [address] ([facility]) (test oono=432) [place] [address] [id number] 13:02:00 Test Item Value Reference Range Comments ACTIVATED CLOTTING TIME 378 sec TESTED AT [address] ([facility]) (test uwlj=997) [place] [address] [id number] 13:02:00 Test Item Value Reference Range Comments ACTIVATED CLOTTING TIME 428 sec TESTED AT [address] ([facility]) (test kdhu=111) [place] [address] [id number] 13:02:00 Test Item Value Reference Range Comments ACTIVATED CLOTTING TIME 483 sec TESTED AT [address] ([facility]) (test aipq=817) [place] [address] [id number] 12:13:00 Test Item Value Reference Range Comments FIBRINOGEN LEVEL ([facility]) (test iroz=897) 354 mg/dl 225-434 [id number] 12:13:00 Test Item Value Reference Range Comments PARTIAL THROMBOPLASTIN TIME ([facility]) (test 46.7 seconds 22.5-36.0 otwe=551) PROTHROMBIN TIME/[id number] 12:12:00 Test Item Value Reference Range Comments PROTIME ([facility]) (test qsme=980) 17.7 seconds 11.9-14.2 INR ([facility]) (test hifo=163) 1.5 <=5.9 Effective 12/03/2018: PT Reference Range ChangeNew: 11.9-14.2 Previous: 11.7- 14.7RECOMMENDED COUMADIN/WARFARIN INR THERAPY RANGESSTANDARD DOSE: 2.0-3.0 Includes: PROPHYLAXIS for venous thrombosis, systemic embolization; TREATMENT for venous thrombosis and/or pulmonary embolus.HIGH RISK: Target INR is2.5-3.5 for patients wiht mechanical heart valves.PLATELET [id number] 12:05:00 Test Item Value Reference Range Comments PLATELET COUNT ([facility]) (test vuoo=211) 206 K/CU MM 150-450 POTASSIUM-STAT [id number] 11:59:00 Test Item Value Reference Range Comments POTASSIUM (BEAKER) (test xxnd=531) 4.6 meq/L 3.6-5.5 CALCIUM, [id number] 11:59:00 Test Item Value Reference Range Comments CALCIUM IONIZED (BEAKER) (test vlwn=910) 1.14 mmol/L 1.12-1.27 PH, BLOOD (BEAKER) (test yuuo=2090) 7.39 BLOOD GAS, [id number] 11:59:00 Test Item Value Reference Range Comments PH ARTERIAL (BEAKER) (test qwld=051) 7.40 7.35-7.45 PCO2 ARTERIAL (BEAKER) (test vcbs=497) 48 mmHg 35-45 PO2 ARTERIAL (BEAKER) (test bnnd=777) 360 mmHg 80-90 O2 SATURATION ARTERIAL (BEAKER) (test fsnn=841) 99.8 % 96.0-97.0 HCO3 ARTERIAL (BEAKER) (test lpsm=510) 29 mmol/L 21-29 BASE EXCESS ARTERIAL (BEAKER) (test ekhh=149) 3.4 mmol/L -2.0-3.0 PATIENT TEMPERATURE (BEAKER) (test nmvm=3591) 36.0 C FIO2 (BEAKER) (test dttv=0338) 100.0 % SODIUM NA-STAT [id number] 11:59:00 Test Item Value Reference Range Comments SODIUM (BEAKER) (test yoxk=971) 133 meq/L 135-148 GLUCOSE-STAT [id number] 11:59:00 Test Item Value Reference Range Comments GLUCOSE RANDOM (BEAKER) (test oyqj=594) 234 mg/dL 70-110 HGB/HCT (H&H) - STAT [id number] 11:59:00 Test Item Value Reference Range Comments HEMOGLOBIN (BEAKER) (test lnlt=589) 11.6 g/dL 13.0-16.8 HEMATOCRIT (BEAKER) (test enbs=850) 34.0 % 40.0-50.0 POCT-GLUCOSE [id number] 11:22:00 Test Item Value Reference Range Comments POC-GLUCOSE METER (BEAKER) 133 mg/dL 70-110 TESTED AT [facility] [address] [facility] (test wsqq=4493) [facility] [address] BLOOD GAS, [id number] 11:20:00 Test Item Value Reference Range Comments PH ARTERIAL (BEAKER) (test zwhd=452) 7.44 7.35-7.45 PCO2 ARTERIAL (BEAKER) (test dsyl=520) 46 mmHg 35-45 PO2 ARTERIAL (BEAKER) (test esog=670) 185 mmHg 80-90 O2 SATURATION ARTERIAL (BEAKER) (test wppy=497) 99.3 % 96.0-97.0 HCO3 ARTERIAL (BEAKER) (test jwsu=063) 31 mmol/L 21-29 BASE EXCESS ARTERIAL (BEAKER) (test qvbb=528) 5.7 mmol/L -2.0-3.0 PATIENT TEMPERATURE (BEAKER) (test gxbh=5921) 36.6 C FIO2 (BEAKER) (test dgfc=0059) 75.0 % SODIUM NA-STAT [id number] 11:20:00 Test Item Value Reference Range Comments SODIUM (BEAKER) (test jiom=060) 132 meq/L 135-148 GLUCOSE-STAT [id number] 11:20:00 Test Item Value Reference Range Comments GLUCOSE RANDOM (BEAKER) (test hnwe=517) 205 mg/dL 70-110 HGB/HCT (H&H) - STAT [id number] 11:20:00 Test Item Value Reference Range Comments HEMOGLOBIN (BEAKER) (test abdi=909) 10.9 g/dL 13.0-16.8 HEMATOCRIT (BEAKER) (test gmao=124) 32.0 % 40.0-50.0 POTASSIUM-STAT [id number] 11:19:00 Test Item Value Reference Range Comments POTASSIUM (BEAKER) (test kzmc=104) 5.2 meq/L 3.6-5.5 BLOOD GAS, [id number] 11:00:00 Test Item Value Reference Range Comments PH ARTERIAL (BEAKER) (test fohu=552) 7.44 7.35-7.45 PCO2 ARTERIAL (BEAKER) (test jmlb=122) 44 mmHg 35-45 PO2 ARTERIAL (BEAKER) (test reai=464) 248 mmHg 80-90 O2 SATURATION ARTERIAL (BEAKER) (test ogwb=702) 99.6 % 96.0-97.0 HCO3 ARTERIAL (BEAKER) (test ljpt=947) 30 mmol/L 21-29 BASE EXCESS ARTERIAL (BEAKER) (test jyxm=005) 5.0 mmol/L -2.0-3.0 PATIENT TEMPERATURE (BEAKER) (test rzql=5763) 36.6 C FIO2 (BEAKER) (test yjai=4311) 70.0 % GLUCOSE-STAT [id number] 11:00:00 Test Item Value Reference Range Comments GLUCOSE RANDOM (BEAKER) (test lysm=237) 180 mg/dL 70-110 SODIUM NA-STAT [id number] 11:00:00 Test Item Value Reference Range Comments SODIUM (BEAKER) (test bzbg=126) 131 meq/L 135-148 HGB/HCT (H&H) - STAT [id number] 11:00:00 Test Item Value Reference Range Comments HEMOGLOBIN (BEAKER) (test ynvf=436) 9.4 g/dL 13.0-16.8 HEMATOCRIT (BEAKER) (test dekp=040) 28.0 % 40.0-50.0 POTASSIUM-STAT [id number] 10:58:00 Test Item Value Reference Range Comments POTASSIUM (BEAKER) (test cvev=171) 5.0 meq/L 3.6-5.5 BLOOD GAS, [id number] 10:32:00 Test Item Value Reference Range Comments PH ARTERIAL (BEAKER) (test qizn=844) 7.37 7.35-7.45 PCO2 ARTERIAL (BEAKER) (test xpap=656) 50 mmHg 35-45 PO2 ARTERIAL (BEAKER) (test coys=576) 433 mmHg 80-90 O2 SATURATION ARTERIAL (BEAKER) (test nrqn=318) 99.8 % 96.0-97.0 HCO3 ARTERIAL (BEAKER) (test ctka=941) 29 mmol/L 21-29 BASE EXCESS ARTERIAL (BEAKER) (test htnj=632) 2.6 mmol/L -2.0-3.0 PATIENT TEMPERATURE (BEAKER) (test rbgz=6673) 35.5 C FIO2 (BEAKER) (test wqgp=3005) 85.0 % SODIUM NA-STAT [id number] 10:32:00 Test Item Value Reference Range Comments SODIUM (BEAKER) (test ykzq=047) 127 meq/L 135-148 GLUCOSE-STAT [id number] 10:32:00 Test Item Value Reference Range Comments GLUCOSE RANDOM (BEAKER) (test crvh=122) 132 mg/dL 70-110 HGB/HCT (H&H) - STAT [id number] 10:32:00 Test Item Value Reference Range Comments HEMOGLOBIN (BEAKER) (test owsz=813) 10.2 g/dL 13.0-16.8 HEMATOCRIT (BEAKER) (test qkmm=286) 30.0 % 40.0-50.0 POTASSIUM-STAT [id number] 10:31:00 Test Item Value Reference Range Comments POTASSIUM (BEAKER) (test hvua=602) 3.9 meq/L 3.6-5.5 CALCIUM, [id number] 08:54:00 Test Item Value Reference Range Comments CALCIUM IONIZED (BEAKER) (test bewo=613) 1.11 mmol/L 1.12-1.27 PH, BLOOD (BEAKER) (test loqu=8340) 7.48 BLOOD GAS, [id number] 08:54:00 Test Item Value Reference Range Comments PH ARTERIAL (BEAKER) (test mgbe=346) 7.50 7.35-7.45 PCO2 ARTERIAL (BEAKER) (test bsuq=165) 38 mmHg 35-45 PO2 ARTERIAL (BEAKER) (test augm=175) 306 mmHg 80-90 O2 SATURATION ARTERIAL (BEAKER) (test vjtr=065) 99.7 % 96.0-97.0 HCO3 ARTERIAL (BEAKER) (test vluc=609) 29 mmol/L 21-29 BASE EXCESS ARTERIAL (BEAKER) (test dkoy=700) 5.1 mmol/L -2.0-3.0 PATIENT TEMPERATURE (BEAKER) (test bvra=6615) 35.8 C FIO2 (BEAKER) (test ssqf=2544) 100.0 % SODIUM NA-STAT [id number] 08:54:00 Test Item Value Reference Range Comments SODIUM (BEAKER) (test vwzp=782) 134 meq/L 135-148 HGB/HCT (H&H) - STAT [id number] 08:54:00 Test Item Value Reference Range Comments HEMOGLOBIN (BEAKER) (test tubn=669) 13.0 g/dL 13.0-16.8 HEMATOCRIT (BEAKER) (test vnvx=990) 38.0 % 40.0-50.0 GLUCOSE-STAT [id number] 08:53:00 Test Item Value Reference Range Comments GLUCOSE RANDOM (BEAKER) (test snyr=051) 109 mg/dL 70-110 POTASSIUM-STAT [id number] 08:53:00 Test Item Value Reference Range Comments POTASSIUM (BEAKER) (test qzpc=982) 4.0 meq/L 3.6-5.5 [id number] 02:19:00 Test Item Value Reference Range Comments PARTIAL THROMBOPLASTIN TIME (BEAKER) (test 40.0 seconds 22.5-36.0 lfmp=563) [id number] 01:46:00 Test Item Value Reference Range Comments PHOSPHORUS (BEAKER) (test cccm=456) 4.5 mg/dL 2.3-4.7 [id number] 01:46:00 Test Item Value Reference Range Comments MAGNESIUM (BEAKER) (test cwlx=107) 1.9 mg/dL 1.6-2.6 BASIC METABOLIC [id number] 01:46:00 Test Item Value Reference Range Comments SODIUM (BEAKER) (test 137 meq/L 136-145 hnbv=919) POTASSIUM (BEAKER) (test 3.8 meq/L 3.5-5.1 pyiq=523) CHLORIDE (BEAKER) (test 96 meq/L 98-107 mett=166) CO2 (BEAKER) (test 32 meq/L 22-29 tsaa=526) BLOOD UREA NITROGEN 40 mg/dL 7-21 (BEAKER) (test ibrl=588) CREATININE (BEAKER) (test 1.40 mg/dL 0.57-1.25 tdhm=271) GLUCOSE RANDOM (BEAKER) 120 mg/dL 70-105 (test tnng=532) CALCIUM (BEAKER) (test 9.1 mg/dL 8.4-10.2 ydjc=309) EGFR (BEAKER) (test 50 mL/min/1.73 sq m ESTIMATED GFR IS NOT nepz=2368) ACCURATE CREATININE CLEARANCE IN PREDICTING GLOMERULAR FILTRATION RATE. ESTIMATED GFR IS NOT APPLICABLE FOR DIALYSIS PATIENTS. CBC (HEMOGRAM ONLY)2018-12-15 01:20:00 Test Item Value Reference Range Comments WHITE BLOOD CELL COUNT (BEAKER) (test kkci=141) 13.1 K/ L 3.5-10.5 RED BLOOD CELL COUNT (BEAKER) (test fgie=106) 5.10 M/ L 4.63-6.08 HEMOGLOBIN (BEAKER) (test gtxs=984) 13.4 GM/DL 13.7-17.5 HEMATOCRIT (BEAKER) (test iyvl=006) 41.4 % 40.1-51.0 MEAN CORPUSCULAR VOLUME (BEAKER) (test osmp=118) 81.2 fL 79.0-92.2 MEAN CORPUSCULAR HEMOGLOBIN (BEAKER) (test 26.3 pg 25.7-32.2 cnhw=905) MEAN CORPUSCULAR HEMOGLOBIN CONC (BEAKER) (test 32.4 GM/DL 32.3-36.5 eqqc=093) RED CELL DISTRIBUTION WIDTH (BEAKER) (test 13.7 % 11.6-14.4 cvet=779) PLATELET COUNT (BEAKER) (test ycus=380) 280 K/CU MM 150-450 MEAN PLATELET VOLUME (BEAKER) (test cxdo=181) 10.5 fL 9.4-12.4 NUCLEATED RED BLOOD CELLS (BEAKER) (test 0 /100 WBC 0-0 kwph=635) POCT-GLUCOSE [id number] 21:22:00 Test Item Value Reference Range Comments POC-GLUCOSE METER (BEAKER) 152 mg/dL 70-110 TESTED AT [address] (test jmox=2525) [place] [address] POCT-GLUCOSE [id number] 18:20:00 Test Item Value Reference Range Comments POC-GLUCOSE METER (BEAKER) 129 mg/dL 70-110 TESTED AT [address] (test gmrj=6686) [place] [address] BLOOD [id number] 14:01:00 Test Item Value Reference Range Comments CULTURE (BEAKER) (test sbkz=8459) No growth in 5 days BLOOD [id number] 14:01:00 Test Item Value Reference Range Comments CULTURE (BEAKER) (test hptr=5670) No growth in 5 days RAD, CHEST, 1 VIEW, NON [id number] 13:18:00Reason for exam:->coughFINAL REPORT AP view of [...] MDReport Verified Date/Time: 12/14/2018 13:18:23 Reading Location: [facility] B1 C013Y CT Body Reading Room POCT-GLUCOSE [id number] 11:57:00 Test Item Value Reference Range Comments POC-GLUCOSE METER (BEAKER) 143 mg/dL 70-110 TESTED AT [address] (test pyiu=2296) [facility] [address] POCT-GLUCOSE [id number] 08:42:00 Test Item Value Reference Range Comments POC-GLUCOSE METER (BEAKER) 114 mg/dL 70-110 TESTED AT [address] (test dnoh=5935) [facility] [address] POCT-GLUCOSE [id number] 06:57:00 Test Item Value Reference Range Comments POC-GLUCOSE METER (BEAKER) 144 mg/dL 70-110 TESTED AT [address] (test yweu=7470) [facility] [address] [id number] 06:49:00 Test Item Value Reference Range Comments PHOSPHORUS (BEAKER) (test hden=759) 4.8 mg/dL 2.3-4.7 [id number] 06:49:00 Test Item Value Reference Range Comments MAGNESIUM (BEAKER) (test csep=764) 2.0 mg/dL 1.6-2.6 BASIC METABOLIC [id number] 06:49:00 Test Item Value Reference Range Comments SODIUM (BEAKER) (test 138 meq/L 136-145 lrbt=064) POTASSIUM (BEAKER) (test 4.0 meq/L 3.5-5.1 yihc=835) CHLORIDE (BEAKER) (test 96 meq/L 98-107 kgdm=106) CO2 (BEAKER) (test 34 meq/L 22-29 ixwt=686) BLOOD UREA NITROGEN 39 mg/dL 7-21 (BEAKER) (test rjvv=882) CREATININE (BEAKER) (test 1.21 mg/dL 0.57-1.25 pcbu=978) GLUCOSE RANDOM (BEAKER) 116 mg/dL 70-105 (test gnpq=978) CALCIUM (BEAKER) (test 9.3 mg/dL 8.4-10.2 xfkw=006) EGFR (BEAKER) (test 59 mL/min/1.73 sq m ESTIMATED GFR IS NOT stju=0658) ACCURATE CREATININE CLEARANCE IN PREDICTING GLOMERULAR FILTRATION RATE. ESTIMATED GFR IS NOT APPLICABLE FOR DIALYSIS PATIENTS. [id number] 06:41:00 Test Item Value Reference Range Comments PARTIAL THROMBOPLASTIN TIME (BEAKER) (test 73.4 seconds 22.5-36.0 vrjq=894) CBC (HEMOGRAM ONLY)2018-12-14 06:34:00 Test Item Value Reference Range Comments WHITE BLOOD CELL COUNT (BEAKER) (test vbwg=439) 11.8 K/ L 3.5-10.5 RED BLOOD CELL COUNT (BEAKER) (test phis=931) 5.42 M/ L 4.63-6.08 HEMOGLOBIN (BEAKER) (test fijl=959) 14.1 GM/DL 13.7-17.5 HEMATOCRIT (BEAKER) (test phxs=081) 45.2 % 40.1-51.0 MEAN CORPUSCULAR VOLUME (BEAKER) (test ware=974) 83.4 fL 79.0-92.2 MEAN CORPUSCULAR HEMOGLOBIN (BEAKER) (test 26.0 pg 25.7-32.2 fprg=466) MEAN CORPUSCULAR HEMOGLOBIN CONC (BEAKER) (test 31.2 GM/DL 32.3-36.5 qics=652) RED CELL DISTRIBUTION WIDTH (BEAKER) (test 13.8 % 11.6-14.4 kmnc=820) PLATELET COUNT (BEAKER) (test zqgm=451) 282 K/CU MM 150-450 MEAN PLATELET VOLUME (BEAKER) (test zjwj=742) 10.9 fL 9.4-12.4 NUCLEATED RED BLOOD CELLS (BEAKER) (test 0 /100 WBC 0-0 bbxk=693) [id number] 00:03:00 Test Item Value Reference Range Comments PARTIAL THROMBOPLASTIN TIME (BEAKER) (test 75.0 seconds 22.5-36.0 sjlw=708) POCT-GLUCOSE [id number] 22:24:00 Test Item Value Reference Range Comments POC-GLUCOSE METER (BEAKER) 136 mg/dL 70-110 TESTED AT [address] (test zgjk=5538) [place] [address] [id number] 16:32:00 Test Item Value Reference Range Comments PARTIAL THROMBOPLASTIN TIME (BEAKER) (test 100.4 seconds 22.5-36.0 hota=516) POCT-GLUCOSE [id number] 09:13:00 Test Item Value Reference Range Comments POC-GLUCOSE METER (BEAKER) 169 mg/dL 70-110 TESTED AT [address] (test joru=1156) [place] [address] [id number] 09:04:00 Test Item Value Reference Range Comments PARTIAL THROMBOPLASTIN TIME (BEAKER) (test 105.9 seconds 22.5-36.0 wgfm=874) SPUTUM CULTURE + GRAM [id number] 08:31:00 Test Item Value Reference Range Comments CULTURE (BEAKER) (test 4+ Normal respiratory deandra fygv=2330) present GRAM STAIN RESULT (BEAKER) 1+ WBCs (test kogk=4806) GRAM STAIN RESULT (BEAKER) 0-5 epithelial cells (test nhin=75065) GRAM STAIN RESULT (BEAKER) <1+ gram negative rods (test rihe=322174) GRAM STAIN RESULT (BEAKER) <1+ gram positive cocci in pairs (test bndl=582588) 3+ NormaPOCT-GLUCOSE [id number] 06:02:00 Test Item Value Reference Range Comments POC-GLUCOSE METER (BEAKER) 192 mg/dL 70-110 TESTED AT [address] (test vvkq=6573) [place] [address] [id number] 05:34:00 Test Item Value Reference Range Comments PHOSPHORUS (BEAKER) (test yqbd=240) 4.3 mg/dL 2.3-4.7 [id number] 05:34:00 Test Item Value Reference Range Comments MAGNESIUM (BEAKER) (test dfuc=768) 2.0 mg/dL 1.6-2.6 BASIC METABOLIC [id number] 05:34:00 Test Item Value Reference Range Comments SODIUM (BEAKER) (test 141 meq/L 136-145 gzmp=456) POTASSIUM (BEAKER) (test 4.1 meq/L 3.5-5.1 dbdz=940) CHLORIDE (BEAKER) (test 97 meq/L 98-107 qzus=429) CO2 (BEAKER) (test 33 meq/L 22-29 nhjq=424) BLOOD UREA NITROGEN 36 mg/dL 7-21 (BEAKER) (test upnn=176) CREATININE (BEAKER) (test 1.19 mg/dL 0.57-1.25 vccm=430) GLUCOSE RANDOM (BEAKER) 115 mg/dL 70-105 (test lfbc=966) CALCIUM (BEAKER) (test 9.5 mg/dL 8.4-10.2 rcpv=118) EGFR (BEAKER) (test 60 mL/min/1.73 sq m ESTIMATED GFR IS NOT reyu=9446) ACCURATE CREATININE CLEARANCE IN PREDICTING GLOMERULAR FILTRATION RATE. ESTIMATED GFR IS NOT APPLICABLE FOR DIALYSIS PATIENTS. CBC (HEMOGRAM ONLY)2018-12-13 04:50:00 Test Item Value Reference Range Comments WHITE BLOOD CELL COUNT (BEAKER) (test cnco=233) 14.2 K/ L 3.5-10.5 RED BLOOD CELL COUNT (BEAKER) (test fybk=609) 5.34 M/ L 4.63-6.08 HEMOGLOBIN (BEAKER) (test wqlr=043) 13.9 GM/DL 13.7-17.5 HEMATOCRIT (BEAKER) (test mllr=396) 43.8 % 40.1-51.0 MEAN CORPUSCULAR VOLUME (BEAKER) (test uibq=973) 82.0 fL 79.0-92.2 MEAN CORPUSCULAR HEMOGLOBIN (BEAKER) (test 26.0 pg 25.7-32.2 baqc=901) MEAN CORPUSCULAR HEMOGLOBIN CONC (BEAKER) (test 31.7 GM/DL 32.3-36.5 ekzb=122) RED CELL DISTRIBUTION WIDTH (BEAKER) (test 13.7 % 11.6-14.4 danm=031) PLATELET COUNT (BEAKER) (test wzis=615) 307 K/CU MM 150-450 MEAN PLATELET VOLUME (BEAKER) (test nagz=891) 11.1 fL 9.4-12.4 NUCLEATED RED BLOOD CELLS (BEAKER) (test 0 /100 WBC 0-0 ydnk=557) [id number] 01:19:00 Test Item Value Reference Range Comments PARTIAL THROMBOPLASTIN TIME (BEAKER) (test 100.2 seconds 22.5-36.0 knsd=356) POCT-GLUCOSE [id number] 00:15:00 Test Item Value Reference Range Comments POC-GLUCOSE METER (BEAKER) 171 mg/dL 70-110 TESTED AT [address] (test knys=2887) [place] [address] BASIC METABOLIC [id number] 21:26:00 Test Item Value Reference Range Comments SODIUM (BEAKER) (test 139 meq/L 136-145 qsbv=259) POTASSIUM (BEAKER) (test 4.6 meq/L 3.5-5.1 Specimen slightly dpwu=464) hemolyzed CHLORIDE (BEAKER) (test 94 meq/L 98-107 ovcv=848) CO2 (BEAKER) (test 32 meq/L 22-29 rgcj=034) BLOOD UREA NITROGEN 39 mg/dL 7-21 (BEAKER) (test xchy=801) CREATININE (BEAKER) (test 1.54 mg/dL 0.57-1.25 Specimen slightly gurk=226) hemolyzed GLUCOSE RANDOM (BEAKER) 328 mg/dL 70-105 (test odhc=777) CALCIUM (BEAKER) (test 9.7 mg/dL 8.4-10.2 mhan=668) EGFR (BEAKER) (test 45 mL/min/1.73 sq m ESTIMATED GFR IS NOT lmxq=4801) ACCURATE CREATININE CLEARANCE IN PREDICTING GLOMERULAR FILTRATION RATE. ESTIMATED GFR IS NOT APPLICABLE FOR DIALYSIS PATIENTS. [id number] 18:15:00 Test Item Value Reference Range Comments PARTIAL THROMBOPLASTIN TIME (BEAKER) (test 105.1 seconds 22.5-36.0 cmuc=828) POCT-GLUCOSE [id number] 16:30:00 Test Item Value Reference Range Comments POC-GLUCOSE METER (BEAKER) 208 mg/dL 70-110 TESTED AT [address] (test jxrv=7937) [place] [address] [id number] 10:28:00 Test Item Value Reference Range Comments PARTIAL THROMBOPLASTIN TIME (BEAKER) (test 104.3 seconds 22.5-36.0 unja=878) BASIC METABOLIC [id number] 09:13:00 Test Item Value Reference Range Comments SODIUM (BEAKER) (test 139 meq/L 136-145 cdrf=896) POTASSIUM (BEAKER) (test 3.8 meq/L 3.5-5.1 hhhj=543) CHLORIDE (BEAKER) (test 97 meq/L 98-107 eplb=364) CO2 (BEAKER) (test 30 meq/L 22-29 fnoi=589) BLOOD UREA NITROGEN 36 mg/dL 7-21 (BEAKER) (test qbxn=793) CREATININE (BEAKER) (test 1.44 mg/dL 0.57-1.25 pzfw=563) GLUCOSE RANDOM (BEAKER) 183 mg/dL 70-105 (test inve=438) CALCIUM (BEAKER) (test 9.2 mg/dL 8.4-10.2 pkkd=275) EGFR (BEAKER) (test 48 mL/min/1.73 sq m ESTIMATED GFR IS NOT jocv=7546) ACCURATE CREATININE CLEARANCE IN PREDICTING GLOMERULAR FILTRATION RATE. ESTIMATED GFR IS NOT APPLICABLE FOR DIALYSIS PATIENTS. POCT-GLUCOSE [id number] 07:38:00 Test Item Value Reference Range Comments POC-GLUCOSE METER (BEAKER) 111 mg/dL 70-110 TESTED AT [address] (test dkvk=2324) [facility] [address] B-TYPE NATRIURETIC FACTOR (BNP)2018-12-12 03:24:00 Test Item Value Reference Range Comments B-TYPE NATRIURETIC PEPTIDE (BEAKER) (test 807 pg/mL 0-100 fbmi=548) [id number] 03:20:00 Test Item Value Reference Range Comments PHOSPHORUS (BEAKER) (test lmjb=796) 3.5 mg/dL 2.3-4.7 [id number] 03:20:00 Test Item Value Reference Range Comments MAGNESIUM (BEAKER) (test oygs=293) 2.2 mg/dL 1.6-2.6 [id number] 03:04:00 Test Item Value Reference Range Comments PARTIAL THROMBOPLASTIN TIME (BEAKER) (test 80.2 seconds 22.5-36.0 alsn=905) CBC (HEMOGRAM ONLY)2018-12-12 02:55:00 Test Item Value Reference Range Comments WHITE BLOOD CELL COUNT (BEAKER) (test hdwo=216) 14.5 K/ L 3.5-10.5 RED BLOOD CELL COUNT (BEAKER) (test gufc=488) 5.55 M/ L 4.63-6.08 HEMOGLOBIN (BEAKER) (test gigo=596) 14.2 GM/DL 13.7-17.5 HEMATOCRIT (BEAKER) (test vovj=518) 45.1 % 40.1-51.0 MEAN CORPUSCULAR VOLUME (BEAKER) (test mwjk=049) 81.3 fL 79.0-92.2 MEAN CORPUSCULAR HEMOGLOBIN (BEAKER) (test 25.6 pg 25.7-32.2 dfcs=698) MEAN CORPUSCULAR HEMOGLOBIN CONC (BEAKER) (test 31.5 GM/DL 32.3-36.5 xmux=578) RED CELL DISTRIBUTION WIDTH (BEAKER) (test 13.5 % 11.6-14.4 sise=391) PLATELET COUNT (BEAKER) (test gqxw=108) 332 K/CU MM 150-450 MEAN PLATELET VOLUME (BEAKER) (test dguz=239) 10.4 fL 9.4-12.4 NUCLEATED RED BLOOD CELLS (BEAKER) (test 0 /100 WBC 0-0 dasa=733) POCT-GLUCOSE [id number] 22:23:00 Test Item Value Reference Range Comments POC-GLUCOSE METER (BEAKER) 252 mg/dL 70-110 TESTED AT [facility] [address] (test innh=7511) [facility] [address] BASIC METABOLIC [id number] 21:06:00 Test Item Value Reference Range Comments SODIUM (BEAKER) (test 136 meq/L 136-145 yiex=822) POTASSIUM (BEAKER) (test 4.2 meq/L 3.5-5.1 Specimen slightly wtil=165) hemolyzed CHLORIDE (BEAKER) (test 95 meq/L 98-107 sxsk=307) CO2 (BEAKER) (test 31 meq/L 22-29 ehnj=530) BLOOD UREA NITROGEN 38 mg/dL 7-21 (BEAKER) (test beua=985) CREATININE (BEAKER) (test 1.55 mg/dL 0.57-1.25 Specimen slightly jvng=684) hemolyzed GLUCOSE RANDOM (BEAKER) 331 mg/dL 70-105 (test ulir=475) CALCIUM (BEAKER) (test 9.0 mg/dL 8.4-10.2 zhtz=110) EGFR (BEAKER) (test 44 mL/min/1.73 sq m ESTIMATED GFR IS NOT ydhh=1663) ACCURATE CREATININE CLEARANCE IN PREDICTING GLOMERULAR FILTRATION RATE. ESTIMATED GFR IS NOT APPLICABLE FOR DIALYSIS PATIENTS. [id number] 19:00:00 Test Item Value Reference Range Comments PARTIAL THROMBOPLASTIN TIME (BEAKER) (test 42.7 seconds 22.5-36.0 axqx=784) PET, CARDIAC PET, [id number] 18:10:00Reason for exam:->multivessel CAD; pre-ACBFINAL REPORT PROCEDURE: MYOCARDIAL METABOLISM PET IMAGING with Rest MYOCARDIAL PERFUSION PET IMAGING\XA9\[facility] CODE: [id number], [id number]: CAD, preoperative viability assessment for ACB PROTOCOL: [...] MDReport Verified Date/Time: 12/11/2018 18:10:46 Reading Location: [address] [address] [facility] Reading Room POCT-GLUCOSE [id number] 17:18:00 Test Item Value Reference Range Comments POC-GLUCOSE METER (BEAKER) 141 mg/dL 70-110 TESTED AT [address] (test bvmq=9639) [facility] [address] POCT-GLUCOSE [id number] 15:52:00 Test Item Value Reference Range Comments POC-GLUCOSE METER (BEAKER) 222 mg/dL 70-110 TESTED AT [address] (test jhgk=8076) [facility] [address] POCT-GLUCOSE [id number] 14:37:00 Test Item Value Reference Range Comments POC-GLUCOSE METER (BEAKER) 186 mg/dL 70-110 TESTED AT [address] (test opei=7415) [facility] [address] POCT-GLUCOSE [id number] 12:04:00 Test Item Value Reference Range Comments POC-GLUCOSE METER (BEAKER) 134 mg/dL 70-110 TESTED AT [address] (test rwpr=7928) [facility] [address] CT, CHEST, WITHOUT [id number] 11:34:00FINAL REPORT INDICATION: Hypoxemia and shortness of [...] Date/Time : 12/11/2018 11:34:47 Reading Location: [facility] Diagnostic Imaging Reading Room - [place] [id number] Electronically signed by: JARRED OBRIEN M.D. on 2018 11:34 AMPOCT-GLUCOSE [id number] 07:31:00 Test Item Value Reference Range Comments POC-GLUCOSE METER (BEAKER) 112 mg/dL 70-110 TESTED AT [address] (test ixux=8413) [facility] [address] TROPONIN [id number] 06:39:00 Test Item Value Reference Range Comments TROPONIN I (BEAKER) (test bgto=990) 1.07 ng/mL 0.00-0.03 Troponin I (TnI) levels [...] failure, acidosis, acute neurological disease, and persistent tachyarrhythmia.[id number] 06:09:00 Test Item Value Reference Range Comments PHOSPHORUS (BEAKER) (test cpxk=080) 3.0 mg/dL 2.3-4.7 [id number] 06:09:00 Test Item Value Reference Range Comments MAGNESIUM (BEAKER) (test dkke=614) 2.0 mg/dL 1.6-2.6 BASIC METABOLIC [id number] 06:09:00 Test Item Value Reference Range Comments SODIUM (BEAKER) (test 139 meq/L 136-145 bfcd=894) POTASSIUM (BEAKER) (test 3.8 meq/L 3.5-5.1 ztze=129) CHLORIDE (BEAKER) (test 99 meq/L 98-107 olfv=903) CO2 (BEAKER) (test 32 meq/L 22-29 vzoy=972) BLOOD UREA NITROGEN 34 mg/dL 7-21 (BEAKER) (test xand=183) CREATININE (BEAKER) (test 1.24 mg/dL 0.57-1.25 puxw=113) GLUCOSE RANDOM (BEAKER) 109 mg/dL 70-105 (test xjam=931) CALCIUM (BEAKER) (test 8.7 mg/dL 8.4-10.2 xnno=845) EGFR (BEAKER) (test 57 mL/min/1.73 sq m ESTIMATED GFR IS NOT mhoo=4901) ACCURATE CREATININE CLEARANCE IN PREDICTING GLOMERULAR FILTRATION RATE. ESTIMATED GFR IS NOT APPLICABLE FOR DIALYSIS PATIENTS. [id number] 06:08:00 Test Item Value Reference Range Comments PHOSPHORUS (BEAKER) (test xlkq=328) 3.0 mg/dL 2.3-4.7 B-TYPE NATRIURETIC FACTOR (BNP)2018-12-11 06:02:00 Test Item Value Reference Range Comments B-TYPE NATRIURETIC PEPTIDE (BEAKER) (test 745 pg/mL 0-100 edck=588) [id number] 05:47:00 Test Item Value Reference Range Comments PARTIAL THROMBOPLASTIN TIME (BEAKER) (test 80.5 seconds 22.5-36.0 nbym=520) CBC (HEMOGRAM ONLY)2018-12-11 05:36:00 Test Item Value Reference Range Comments WHITE BLOOD CELL COUNT (BEAKER) (test sbww=841) 14.7 K/ L 3.5-10.5 RED BLOOD CELL COUNT (BEAKER) (test kplv=485) 5.02 M/ L 4.63-6.08 HEMOGLOBIN (BEAKER) (test wnra=754) 13.0 GM/DL 13.7-17.5 HEMATOCRIT (BEAKER) (test yolf=043) 39.7 % 40.1-51.0 MEAN CORPUSCULAR VOLUME (BEAKER) (test skbo=559) 79.1 fL 79.0-92.2 MEAN CORPUSCULAR HEMOGLOBIN (BEAKER) (test 25.9 pg 25.7-32.2 iyqo=467) MEAN CORPUSCULAR HEMOGLOBIN CONC (BEAKER) (test 32.7 GM/DL 32.3-36.5 hbin=411) RED CELL DISTRIBUTION WIDTH (BEAKER) (test 13.4 % 11.6-14.4 bmby=236) PLATELET COUNT (BEAKER) (test liym=247) 282 K/CU MM 150-450 MEAN PLATELET VOLUME (BEAKER) (test gibx=872) 10.7 fL 9.4-12.4 NUCLEATED RED BLOOD CELLS (BEAKER) (test 0 /100 WBC 0-0 tlmx=331) RAD, CHEST, 1 VIEW, NON [id number] 04:35:00Reason for exam:->edema, opacity?Should this be performed [...] Verified Date/Time: 12/11/2018 04:35:08 Reading Location : [address] [facility]Room POCT-GLUCOSE [id number] 21:59:00 Test Item Value Reference Range Comments POC-GLUCOSE METER (BEAKER) 167 mg/dL 70-110 TESTED AT [address] (test wsgq=4293) [facility] [address] BASIC METABOLIC [id number] 21:43:00 Test Item Value Reference Range Comments SODIUM (BEAKER) (test 135 meq/L 136-145 riuh=520) POTASSIUM (BEAKER) (test 4.1 meq/L 3.5-5.1 fxiq=484) CHLORIDE (BEAKER) (test 97 meq/L 98-107 skvx=921) CO2 (BEAKER) (test 32 meq/L 22-29 pexo=968) BLOOD UREA NITROGEN 37 mg/dL 7-21 (BEAKER) (test sejh=175) CREATININE (BEAKER) (test 1.50 mg/dL 0.57-1.25 sqgs=852) GLUCOSE RANDOM (BEAKER) 173 mg/dL 70-105 (test mpyp=223) CALCIUM (BEAKER) (test 8.7 mg/dL 8.4-10.2 myev=395) EGFR (BEAKER) (test 46 mL/min/1.73 sq m ESTIMATED GFR IS NOT ibnv=7535) ACCURATE CREATININE CLEARANCE IN PREDICTING GLOMERULAR FILTRATION RATE. ESTIMATED GFR IS NOT APPLICABLE FOR DIALYSIS PATIENTS. [id number] 21:28:00 Test Item Value Reference Range Comments PARTIAL THROMBOPLASTIN TIME (BEAKER) (test 60.6 seconds 22.5-36.0 hciy=669) BASIC METABOLIC [id number] 17:24:00 Test Item Value Reference Range Comments SODIUM (BEAKER) (test 136 meq/L 136-145 gkao=649) POTASSIUM (BEAKER) (test 4.4 meq/L 3.5-5.1 Specimen slightly ywgo=176) hemolyzed CHLORIDE (BEAKER) (test 97 meq/L 98-107 qbei=021) CO2 (BEAKER) (test 31 meq/L 22-29 jolo=357) BLOOD UREA NITROGEN 35 mg/dL 7-21 (BEAKER) (test wbwe=207) CREATININE (BEAKER) (test 1.50 mg/dL 0.57-1.25 Specimen slightly tlyi=723) hemolyzed GLUCOSE RANDOM (BEAKER) 135 mg/dL 70-105 (test bhlz=889) CALCIUM (BEAKER) (test 8.7 mg/dL 8.4-10.2 dmds=488) EGFR (BEAKER) (test 46 mL/min/1.73 sq m ESTIMATED GFR IS NOT oaky=8992) ACCURATE CREATININE CLEARANCE IN PREDICTING GLOMERULAR FILTRATION RATE. ESTIMATED GFR IS NOT APPLICABLE FOR DIALYSIS PATIENTS. POCT-GLUCOSE [id number] 16:32:00 Test Item Value Reference Range Comments POC-GLUCOSE METER (BEAKER) 136 mg/dL 70-110 TESTED AT [facility] [address] (test gizn=9725) [facility] [address] VANCOMYCIN LEVEL, [id number] 13:55:00 Test Item Value Reference Range Comments VANCOMYCIN TROUGH (BEAKER) (test auyu=726) 16.8 ug/mL 10.0-20.0 [id number] 12:49:00 Test Item Value Reference Range Comments PARTIAL THROMBOPLASTIN TIME (BEAKER) (test 47.0 seconds 22.5-36.0 fnkf=769) POCT-GLUCOSE [id number] 11:53:00 Test Item Value Reference Range Comments POC-GLUCOSE METER (BEAKER) 161 mg/dL 70-110 TESTED AT [address] (test oeet=4305) [facility] [address] POCT-GLUCOSE [id number] 08:12:00 Test Item Value Reference Range Comments POC-GLUCOSE METER (BEAKER) 164 mg/dL 70-110 TESTED AT [address] (test looq=9766) [place] [id number] 05:53:00 Test Item Value Reference Range Comments PROCALCITONIN (BEAKER) (test plhw=7286) < ng/mL <0.05 SEPSIS RISK (ng/mL)Low: 0.05-0.50Intermediate: 0.51-2.00High: & gt;=2.01TROPONIN [id number] 05:41:00 Test Item Value Reference Range Comments TROPONIN I (BEAKER) (test rquf=227) 0.93 ng/mL 0.00-0.03 Troponin I (TnI) levels [...] NATRIURETIC PEPTIDE (BEAKER) (test 814 pg/mL 0-100 pwba=165) [id number] 04:33:00 Test Item Value Reference Range Comments PHOSPHORUS (BEAKER) (test onoz=712) 4.8 mg/dL 2.3-4.7 [id number] 04:33:00 Test Item Value Reference Range Comments MAGNESIUM (BEAKER) (test zxgr=265) 2.2 mg/dL 1.6-2.6 BASIC METABOLIC [id number] 04:33:00 Test Item Value Reference Range Comments SODIUM (BEAKER) (test 135 meq/L 136-145 oqmy=364) POTASSIUM (BEAKER) (test 4.3 meq/L 3.5-5.1 xogy=657) CHLORIDE (BEAKER) (test 100 meq/L 98-107 rrps=497) CO2 (BEAKER) (test 28 meq/L 22-29 jdan=658) BLOOD UREA NITROGEN 24 mg/dL 7-21 (BEAKER) (test rszx=276) CREATININE (BEAKER) (test 1.35 mg/dL 0.57-1.25 fqdf=801) GLUCOSE RANDOM (BEAKER) 227 mg/dL 70-105 (test hvkr=428) CALCIUM (BEAKER) (test 8.3 mg/dL 8.4-10.2 hnlu=503) EGFR (BEAKER) (test 52 mL/min/1.73 sq m ESTIMATED GFR IS NOT piwo=5462) ACCURATE CREATININE CLEARANCE IN PREDICTING GLOMERULAR FILTRATION RATE. ESTIMATED GFR IS NOT APPLICABLE FOR DIALYSIS PATIENTS. LACTIC ACID, [id number] 04:25:00 Test Item Value Reference Range Comments LACTATE BLOOD VENOUS (2) (BEAKER) (test 0.6 mmol/L 0.5-2.2 fqnw=9181) CBC (HEMOGRAM ONLY)2018-12-10 03:53:00 Test Item Value Reference Range Comments WHITE BLOOD CELL COUNT (BEAKER) (test laid=564) 10.5 K/ L 3.5-10.5 RED BLOOD CELL COUNT (BEAKER) (test zxph=216) 4.71 M/ L 4.63-6.08 HEMOGLOBIN (BEAKER) (test mfaa=758) 12.2 GM/DL 13.7-17.5 HEMATOCRIT (BEAKER) (test gitj=262) 38.1 % 40.1-51.0 MEAN CORPUSCULAR VOLUME (BEAKER) (test uohm=277) 80.9 fL 79.0-92.2 MEAN CORPUSCULAR HEMOGLOBIN (BEAKER) (test 25.9 pg 25.7-32.2 vxcx=678) MEAN CORPUSCULAR HEMOGLOBIN CONC (BEAKER) (test 32.0 GM/DL 32.3-36.5 bxzy=551) RED CELL DISTRIBUTION WIDTH (BEAKER) (test 13.2 % 11.6-14.4 rxqt=086) PLATELET COUNT (BEAKER) (test qnjb=851) 239 K/CU MM 150-450 MEAN PLATELET VOLUME (BEAKER) (test xzja=237) 10.5 fL 9.4-12.4 NUCLEATED RED BLOOD CELLS (BEAKER) (test 0 /100 WBC 0-0 kvgs=791) POCT-GLUCOSE [id number] 22:31:00 Test Item Value Reference Range Comments POC-GLUCOSE METER (BEAKER) 187 mg/dL 70-110 TESTED AT [address] (test tigx=3541) [place] [address] POCT-GLUCOSE [id number] 17:19:00 Test Item Value Reference Range Comments POC-GLUCOSE METER (BEAKER) 158 mg/dL 70-110 TESTED AT [address] (test fzqv=9452) [place] [address] HEMOGLOBIN [id number] 14:57:00 Test Item Value Reference Range Comments HEMOGLOBIN A1C (BEAKER) (test vckr=166) 5.7 % 4.3-6.1 POCT-GLUCOSE [id number] 12:19:00 Test Item Value Reference Range Comments POC-GLUCOSE METER (BEAKER) 140 mg/dL 70-110 TESTED AT [address] (test iwky=7428) [place] [address] URINALYSIS W/ REFLEX URINE [id number] 11:34:00 Test Item Value Reference Range Comments COLOR (BEAKER) (test cmzf=325) Yellow CLARITY (BEAKER) (test rayz=171) Clear SPECIFIC GRAVITY UA (BEAKER) (test menh=691) 1.009 1.001-1.035 PH UA (BEAKER) (test qpaj=108) 5.0 5.0-8.0 PROTEIN UA (BEAKER) (test woqz=751) 20 mg/dL Negative GLUCOSE UA (BEAKER) (test onso=670) Negative Negative KETONES UA (BEAKER) (test fzsw=435) Negative Negative BILIRUBIN UA (BEAKER) (test iabu=307) Negative Negative BLOOD UA (BEAKER) (test cdot=091) Moderate Negative NITRITE UA (BEAKER) (test wnfk=615) Negative Negative LEUKOCYTE ESTERASE UA (BEAKER) (test ando=939) Moderate Negative UROBILINOGEN UA (BEAKER) (test necb=190) 0.2 mg/dL 0.2-1.0 RBC UA (BEAKER) (test edxt=561) 27 /HPF WBC UA (BEAKER) (test dapa=517) 20 /HPF MUCUS (BEAKER) (test bbbt=4892) Rare SQUAMOUS EPITHELIAL (BEAKER) (test bhmm=372) < /HPF SOURCE(BEAKER) (test lays=7864) [id number] 11:13:00 Test Item Value Reference Range Comments PARTIAL THROMBOPLASTIN TIME (BEAKER) (test 51.5 seconds 22.5-36.0 xgtz=220) RESPIRATORY PANEL [id number] 10:18:00 Test Item Value Reference Range Comments HUMAN METAPNEUMOVIRUS (BEAKER) (test Not detected Not detected, Equivocal vckx=0514) RHINOVIRUS (BEAKER) (test stfn=3242) Not detected Not detected, Equivocal INFLUENZA A (BEAKER) (test hhbm=9526) Not detected Not detected, Equivocal INFLUENZA A (NO SUBTYPE) (test Not detected, Equivocal sgvs=3341) INFLUENZA A SUBTYPE H1 (BEAKER) (test Not detected, Equivocal lerp=0669) INFLUENZA A SUBTYPE H3 (BEAKER) (test Not detected, Equivocal hsue=0308) INFLUENZA A SUBTYPE H1-2009 (BEAKER) Not detected, Equivocal (test paia=4834) INFLUENZA B (BEAKER) (test babz=0201) Not detected Not detected, Equivocal RESPIRATORY SYNCYTIAL VIRUS (BEAKER) Not detected Not detected, Equivocal (test jbje=0665) PARAINFLUENZA VIRUS 1 (BEAKER) (test Not detected Not detected, Equivocal jmof=3527) PARAINFLUENZA VIRUS 2 (BEAKER) (test Not detected Not detected, Equivocal tadg=4713) PARAINFLUENZA VIRUS 3 (BEAKER) (test Not detected Not detected, Equivocal hmik=7664) PARAINFLUENZA VIRUS 4 (BEAKER) (test Not detected Not detected, Equivocal ofkk=0680) ADENOVIRUS (BEAKER) (test tzcr=6435) Not detected Not detected, Equivocal CORONAVIRUS 229E (BEAKER) (test Not detected Not detected, Equivocal cytg=4464) CORONAVIRUS HKU1 (BEAKER) (test Not detected Not detected, Equivocal esgm=0501) CORONAVIRUS NL63 (BEAKER) (test Not detected Not detected, Equivocal kdcr=2061) CORONAVIRUS OC43 (BEAKER) (test Not detected Not detected, Equivocal byph=6819) BORDETELLA PERTUSSIS (BEAKER) (test Not detected Not detected, Equivocal qovf=2625) CHLAMYDOPHILA PNEUMONIAE (BEAKER) (test Not detected Not detected, Equivocal qttx=0248) MYCOPLASMA PNEUMONIAE (BEAKER) (test Not detected Not detected, Equivocal oqhm=5797) Other viruses and bacteria not targeted by this PCR panel cannot be excluded; therefore clinical correlation and follow up of serology, culture results, and other molecular studies is required. The results are not intended to be used as the sole means for clinical diagnosis or patient management decisions. This sample was tested at the [facility] using the Team[employer] FilmArray Respiratory Panel. It is FDA cleared and has been verified and approved by the [facility] for clinical use on nasopharyngeal swab specimens.The performance of the FilmArrayRP has not been established in individuals who received influenza vaccine. Recent administration ofa nasal influenza vaccine may cause false positive results for Influenza A and/orInfluenza B.POCT-GLUCOSE [id number] 07:53:00 Test Item Value Reference Range Comments POC-GLUCOSE METER (BEAKER) 181 mg/dL 70-110 TESTED AT [facility] [address] (test ubwi=2564) [facility] [address] COMPREHENSIVE METABOLIC [id number] 02:51:00 Test Item Value Reference Range Comments TOTAL PROTEIN (BEAKER) 6.9 gm/dL 6.0-8.3 Specimen slightly (test dayp=688) hemolyzed ALBUMIN (BEAKER) (test 3.4 g/dL 3.5-5.0 Specimen slightly wrkq=0107) hemolyzed ALKALINE PHOSPHATASE 66 U/L 40-150 (BEAKER) (test hadk=194) BILIRUBIN TOTAL (BEAKER) 0.5 mg/dL 0.2-1.2 Specimen slightly (test hxwa=109) hemolyzed SODIUM (BEAKER) (test 138 meq/L 136-145 yrla=358) POTASSIUM (BEAKER) (test 4.4 meq/L 3.5-5.1 Specimen slightly rerr=702) hemolyzed CHLORIDE (BEAKER) (test 108 meq/L 98-107 wyin=135) CO2 (BEAKER) (test 20 meq/L 22-29 uhpb=800) BLOOD UREA NITROGEN 17 mg/dL 7-21 (BEAKER) (test butt=456) CREATININE (BEAKER) (test 1.20 mg/dL 0.57-1.25 Specimen slightly dyql=558) hemolyzed GLUCOSE RANDOM (BEAKER) 135 mg/dL 70-105 (test gntr=631) CALCIUM (BEAKER) (test 8.5 mg/dL 8.4-10.2 zjqs=094) AST (SGOT) (BEAKER) (test 13 U/L 5-34 Specimen slightly dgvz=040) hemolyzed ALT (SGPT) (BEAKER) (test 11 U/L 6-55 Specimen slightly neom=070) hemolyzed EGFR (BEAKER) (test 60 mL/min/1.73 sq m ESTIMATED GFR IS NOT fkqt=7271) ACCURATE CREATININE CLEARANCE IN PREDICTING GLOMERULAR FILTRATION RATE. ESTIMATED GFR IS NOT APPLICABLE FOR DIALYSIS PATIENTS. TROPONIN [id number] 02:40:00 Test Item Value Reference Range Comments TROPONIN I (BEAKER) (test moom=791) 1.38 ng/mL 0.00-0.03 Troponin I (TnI) levels [...] NATRIURETIC PEPTIDE (BEAKER) (test 608 pg/mL 0-100 krvy=117) [id number] 02:15:00 Test Item Value Reference Range Comments MAGNESIUM (BEAKER) (test 1.7 mg/dL 1.6-2.6 Specimen slightly hemolyzed eohc=932) [id number] 02:15:00 Test Item Value Reference Range Comments PHOSPHORUS (BEAKER) (test 3.1 mg/dL 2.3-4.7 Specimen slightly hemolyzed dsmk=046) CBC W/PLT COUNT & AUTO [id number] 02:04:00 Test Item Value Reference Range Comments WHITE BLOOD CELL COUNT (BEAKER) (test vchc=375) 11.4 K/ L 3.5-10.5 RED BLOOD CELL COUNT (BEAKER) (test gqxy=437) 4.93 M/ L 4.63-6.08 HEMOGLOBIN (BEAKER) (test viev=976) 12.9 GM/DL 13.7-17.5 HEMATOCRIT (BEAKER) (test tium=954) 40.5 % 40.1-51.0 MEAN CORPUSCULAR VOLUME (BEAKER) (test masv=368) 82.2 fL 79.0-92.2 MEAN CORPUSCULAR HEMOGLOBIN (BEAKER) (test 26.2 pg 25.7-32.2 dbqz=766) MEAN CORPUSCULAR HEMOGLOBIN CONC (BEAKER) (test 31.9 GM/DL 32.3-36.5 oeyd=123) RED CELL DISTRIBUTION WIDTH (BEAKER) (test 13.8 % 11.6-14.4 rfgk=529) PLATELET COUNT (BEAKER) (test rzup=815) 242 K/CU MM 150-450 MEAN PLATELET VOLUME (BEAKER) (test kojo=837) 10.8 fL 9.4-12.4 NUCLEATED RED BLOOD CELLS (BEAKER) (test 0 /100 WBC 0-0 eyal=982) NEUTROPHILS RELATIVE PERCENT (BEAKER) (test 92 % vdrw=572) LYMPHOCYTES RELATIVE PERCENT (BEAKER) (test 4 % euqo=913) MONOCYTES RELATIVE PERCENT (BEAKER) (test 2 % ggge=720) EOSINOPHILS RELATIVE PERCENT (BEAKER) (test 0 % dpae=110) BASOPHILS RELATIVE PERCENT (BEAKER) (test 1 % fbhf=821) NEUTROPHILS ABSOLUTE COUNT (BEAKER) (test 10.49 K/ L 1.78-5.38 plmn=563) LYMPHOCYTES ABSOLUTE COUNT (BEAKER) (test 0.48 K/ L 1.32-3.57 vwjh=126) MONOCYTES ABSOLUTE COUNT (BEAKER) (test 0.27 K/ L 0.30-0.82 utal=481) EOSINOPHILS ABSOLUTE COUNT (BEAKER) (test 0.00 K/ L 0.04-0.54 smpm=024) BASOPHILS ABSOLUTE COUNT (BEAKER) (test 0.07 K/ L 0.01-0.08 ursg=467) IMMATURE GRANULOCYTES-RELATIVE PERCENT (BEAKER) 0 % 0-1 (test nccd=9813) [id number] 01:59:00 Test Item Value Reference Range Comments PARTIAL THROMBOPLASTIN TIME (BEAKER) (test 40.5 seconds 22.5-36.0 aald=107) POCT-GLUCOSE [id number] 22:21:00 Test Item Value Reference Range Comments POC-GLUCOSE METER (BEAKER) 136 mg/dL 70-110 TESTED AT [facility] [address] (test jrjt=4936) [facility] [address] RAD, CHEST, 1 VIEW, NON [id number] 21:04:00Reason for exam:->shortness of breathShould this be [...] MDReport Verified Date/Time: 12/08/2018 21:04:01 Reading Location: [address] Reading Room BUN AND [id number] 20:26:00 Test Item Value Reference Range Comments BLOOD UREA NITROGEN 18 mg/dL 7-21 (BEAKER) (test gqae=845) CREATININE (BEAKER) (test 1.30 mg/dL 0.57-1.25 umfw=378) EGFR (BEAKER) (test 54 mL/min/1.73 sq m ESTIMATED GFR IS NOT jizz=7013) ACCURATE CREATININE CLEARANCE IN PREDICTING GLOMERULAR FILTRATION RATE. ESTIMATED GFR IS NOT APPLICABLE FOR DIALYSIS PATIENTS. THEOPHYLLINE [id number] 19:28:00 Test Item Value Reference Range Comments THEOPHYLLINE LEVEL (BEAKER) (test kbft=435) 10.1 ug/mL 10.0-20.0 [id number] 19:09:00 Test Item Value Reference Range Comments PARTIAL THROMBOPLASTIN TIME (BEAKER) (test 36.3 seconds 22.5-36.0 dstg=603) Prior to initiating heparinSTREP PNEUMONIAE [id number] 19:00:00 Test Item Value Reference Range Comments STREP PNEUMONIAE ANTIGEN Presumptive negative for Presumptive negative for (BEAKER) (test pneumococcal pneumonia - pneumococcal pneumonia - subv=0303) see comment see commen Presumptive negative for pneumococcal pneumonia, suggesting no current or recent pneumococcal infection. Infection due to S. pneumoniae cannot be ruled out since the antigen present in the sample may be below the detection limit of the test.LEGIONELLA ANTIGEN, [id number] 18:59:00 Test Item Value Reference Range Comments L. PNEUMOPHILA SEROGP 1 Negative - see Negative for L. UR AG (AKER) (test comment pneumophila serogroup 1 vzug=0911) antigen, suggesting no recent or current infection with this serogroup. Legionellosis cannot be ruled out since other serogroups and species may cause disease. RAD, CHEST, 1 VIEW, NON [id number] 18:51:00Reason for exam:-> hypoxemiaShould this be performed [...] Verified Date/Time : 12/08/2018 18:51:41 Reading Location: [address] Consult Reading Room Electronically signed by: KATIE SALINAS M.D.on 12/08/2018 06:51 PMBLOOD GAS, [id number] 18:41:00 Test Item Value Reference Range Comments PH ARTERIAL (BEAKER) (test hzks=259) 7.47 7.35-7.45 PCO2 ARTERIAL (BEAKER) (test ymra=938) 35 mmHg 35-45 PO2 ARTERIAL (BEAKER) (test pwjs=771) 97 mmHg 80-90 O2 SATURATION ARTERIAL (BEAKER) (test jgcf=302) 97.8 % 96.0-97.0 HCO3 ARTERIAL (BEAKER) (test wwcs=191) 25 mmol/L 21-29 BASE EXCESS ARTERIAL (BEAKER) (test gcar=394) 1.4 mmol/L -2.0-3.0 PATIENT TEMPERATURE (BEAKER) (test hrtx=8153) 37.0 C FIO2 (BEAKER) (test ernv=4709) 44.0 % TROPONIN [id number] 18:35:00 Test Item Value Reference Range Comments TROPONIN I (BEAKER) (test gdxb=585) 1.24 ng/mL 0.00-0.03 Troponin I (TnI) levels [...] acute neurological disease, and persistent tachyarrhythmia.LACTIC ACID, [id number] 18:17:00 Test Item Value Reference Range Comments LACTATE BLOOD VENOUS (2) 1.6 mmol/L 0.5-2.2 Specimen moderately hemolyzed (BEAKER) (test tsyo=3015) [id number] 18:14:00 Test Item Value Reference Range Comments MAGNESIUM (BEAKER) (test kzkc=203) 1.7 mg/dL 1.6-2.6 POCT-GLUCOSE [id number] 18:06:00 Test Item Value Reference Range Comments POC-GLUCOSE METER (BEAKER) 123 mg/dL 70-110 TESTED AT [facility] [address] (test mcud=9682) [place] [address] CBC W/PLT COUNT & AUTO [id number] 17:57:00 Test Item Value Reference Range Comments WHITE BLOOD CELL COUNT (BEAKER) (test iqfy=300) 11.6 K/ L 3.5-10.5 RED BLOOD CELL COUNT (BEAKER) (test svmw=891) 4.99 M/ L 4.63-6.08 HEMOGLOBIN (BEAKER) (test eyoq=488) 13.1 GM/DL 13.7-17.5 HEMATOCRIT (BEAKER) (test xpjm=870) 40.1 % 40.1-51.0 MEAN CORPUSCULAR VOLUME (BEAKER) (test lywl=357) 80.4 fL 79.0-92.2 MEAN CORPUSCULAR HEMOGLOBIN (BEAKER) (test 26.3 pg 25.7-32.2 vwtv=876) MEAN CORPUSCULAR HEMOGLOBIN CONC (BEAKER) (test 32.7 GM/DL 32.3-36.5 nqvk=482) RED CELL DISTRIBUTION WIDTH (BEAKER) (test 13.8 % 11.6-14.4 whxt=657) PLATELET COUNT (BEAKER) (test ehdq=607) 243 K/CU MM 150-450 MEAN PLATELET VOLUME (BEAKER) (test ccvk=278) 10.6 fL 9.4-12.4 NUCLEATED RED BLOOD CELLS (BEAKER) (test 0 /100 WBC 0-0 ycvk=814) NEUTROPHILS RELATIVE PERCENT (BEAKER) (test 81 % psak=326) LYMPHOCYTES RELATIVE PERCENT (BEAKER) (test 8 % dlnl=367) MONOCYTES RELATIVE PERCENT (BEAKER) (test 10 % lryx=388) EOSINOPHILS RELATIVE PERCENT (BEAKER) (test 0 % fnuk=578) BASOPHILS RELATIVE PERCENT (BEAKER) (test 1 % whwt=875) NEUTROPHILS ABSOLUTE COUNT (BEAKER) (test 9.42 K/ L 1.78-5.38 ylew=441) LYMPHOCYTES ABSOLUTE COUNT (BEAKER) (test 0.87 K/ L 1.32-3.57 xmiq=168) MONOCYTES ABSOLUTE COUNT (BEAKER) (test 1.19 K/ L 0.30-0.82 jyop=687) EOSINOPHILS ABSOLUTE COUNT (BEAKER) (test 0.04 K/ L 0.04-0.54 pwfp=120) BASOPHILS ABSOLUTE COUNT (BEAKER) (test 0.08 K/ L 0.01-0.08 huid=951) IMMATURE GRANULOCYTES-RELATIVE PERCENT (BEAKER) 0 % 0-1 (test lqxl=3798)
[2019-01-28 09:51] LABS: Absolute Lymphocytes (CBC) 0.6 K/uL (0.7-4.9); Basophils % 0.5 % (0-1.3); Hematocrit 38.1 % (39.6-49.0); Lymphocytes % 5.4 % (15.3-44.8); MPV 9.1 fL (7.6-11.3); RBC Red Blood Cell Count 4.68 M/uL (4.33-5.43)
[2019-01-28] MEDS ORDERED: METHYLPREDNISOLONE 125 MG INJ ONE (09:51)
[2019-01-28] MEDS ORDERED: NA CHLORIDE 0.9% 250 ML ONE (09:51)
[2019-01-28] MEDS ORDERED: LEVALBUTEROL 1.25 MG/3 ML NEB ONE (09:51)
[2019-01-28 10:08] LABS: Protime INR 1.04
[2019-01-28 10:10] LABS: Potassium 3.9 mmol/L (3.5-5.1); Troponin (Emerg Dept Use Only) 0.02 ng/mL (0.0-0.045)
[2019-01-28 10:12] LABS: Arterial Blood Carboxyhemoglob 1.2 % (0-1.5); Blood Gas Oxyhemoglobin 94.9 % (94-97)
--- NOTE | 2019-01-28 10:21 | RAD REPORT ---
EXAM DESCRIPTION: RAD - Chest Single View - 01/28/2019 9:49 am CLINICAL HISTORY: Dyspnea;Cough;COPD Chest pain. COMPARISON: Chest Single View dated 01/26/2019; Chest Single View dated 01/20/2019; Chest Single View dated 01/16/2019; Chest Single View dated 01/15/2019 FINDINGS: Portable technique limits examination quality. Emphysematous changes are present throughout the lungs with mild worsening in the left lower lobe ple ural and parenchymal opacities suggesting worsening pneumonia. The heart is mildly prominent size. No displaced fractures.Left-sided PICC line has tip in the SVC. IMPRESSION: Mild worsening infiltrate/ pneumonia in the left lower lobe.
--- NOTE | 2019-01-28 10:31 | ER ---
Nurse's Notes [facility] Name: Massimo Hauser Age: 73 yrs Sex: Male : 1945 Arrival Date: 01/28/2019 Time: 09:21 Bed 6 Private MD: Diagnosis: Unspecified combined systolic (congestive) and diastolic (congestive) heart failure;Chronic obstructive pulmonary disease with (acute) exacerbation;Hypoxemia Presentation: 01/28 09:21 Presenting complaint: Worsening SOB x 3 days. Denies fever. Transition of care: patient hb was not received from another setting of care. Onset of symptoms was January 25, 2019. Risk Assessment: Do you want to hurt yourself or someone else? Patient reports no desire to harm self or others. Care prior to arrival: None. 09:21 Method Of Arrival: Wheelchair 09:21 Acuity: CHEO 2 hb 09:31 Initial Sepsis Screen: Does the patient meet any 2 criteria? RR > 20 per min. Systolic hj BP < 90 mmHg. Does the patient have a suspected source of infection? Yes: Productive cough/pneumonia. Triage Assessment: 09:30 General: Appears in no apparent distress. uncomfortable, Behavior is calm, cooperative, hj appropriate for age. Respiratory: Reports shortness of breath at rest on exertion cough that is labored breathing Onset: The symptoms/episode began/occurred since Saturday, the patient has severe shortness of breath. Historical: - Allergies: 09:26 CEPHALOSPORINS; hb 09:26 Sulfa (Sulfonamide Antibiotics); hb 09:26 Tetanus Immune Globulin; hb - Home Meds: 09:26 Amiodarone Oral once daily [Active]; aspirin 81 mg Oral TbEC 1 tab once daily [Active]; hb atorvastatin 10 mg Oral tab 1 tab once daily [Active]; Breo Ellipta 200-25 mcg/dose inhalation dsdv 1 puff once daily [Active]; Bumetanide Oral [Active]; clopidogrel 75 mg Oral tab 1 tab once daily [Active]; Coreg Oral 2 times per day [Active]; Entresto Oral 2 times per day [Active]; Flomax 0.4 mg Oral cp24 once daily [Active]; Incruse Ellipta 62.5 mcg/actuation inhalation dsdv 1 puff once daily [Active]; irbesartan 150 mg Oral tab 1 tab once daily [Active]; Lantus 100 unit/mL Sub-Q soln 20 unit nightly [Active]; losartan Oral [Active]; Magnesium Oxide Oral [Active]; metformin 500 mg Oral tab 2 times per day [Active]; Mucinex Oral [Active]; Norvasc 10 mg Oral tab once daily [Active]; tramadol 50 mg Oral tab 1 tab every 6 hours [Active]; vancomycin intravenous [Active]; - PMHx: 09:26 COPD; Diabetes - NIDDM; Emphysema; Hypertension; Home O2 5LNC; hb - PSHx: 09: Cardiac Bypass December 2018; hb - Immunization history:: Adult Immunizations up to date. - Social history:: Smoking status: Patient/guardian denies using tobacco. - Ebola Screening: : No symptoms or risks identified at this time. - Family history:: not pertinent. - Hospitalizations: : Patient was recently seen at. Screenin:30 Abuse screen: Denies threats or abuse. Denies injuries from another. Nutritional hj screening: No deficits noted. Tuberculosis screening: No symptoms or risk factors identified. Fall Risk None identified. Assessment: 09:30 Pain: Complains of pain in chest. Cardiovascular: Rhythm is. Respiratory: Airway is hj patent Respiratory effort is labored, Respiratory pattern is regular, tachypnea Breath sounds with crackles bilaterally. 09:30 General: Appears distressed, uncomfortable, Behavior is calm, cooperative, appropriate hj for age. Neuro: Level of Consciousness is awake, alert, obeys commands, Oriented to person, place, time, situation, Appropriate for age. GI: No signs and/or symptoms were reported involving the gastrointestinal system. : No signs and/or symptoms were reported regarding the genitourinary system. EENT: No signs and/or symptoms were reported regarding the EENT system. Derm: No signs and/or symptoms reported regarding the dermatologic system. Musculoskeletal: No signs and/or symptoms reported regarding the musculoskeletal system. 10:42 Reassessment: Patient and/or family updated on plan of care and expected duration. Pain hj level reassessed. Patient is alert, oriented x 3, equal unlabored respirations, skin warm/dry/pink. BIPAP on; breathing better;. 11:30 Reassessment: Patient and/or family updated on plan of care and expected duration. Pain hj level reassessed. Patient is alert, oriented x 3, equal unlabored respirations, skin warm/dry/pink. awaiting room placement;. 12:55 Reassessment: Patient and/or family updated on plan of care and expected duration. Pain hj level reassessed. Patient is alert, oriented x 3, equal unlabored respirations, skin warm/dry/pink. to room 220;. Vital Signs: 09:22 BP 92 / 48; Pulse 89; Resp 26; Temp 97; Pulse Ox 95% on 5 lpm NC; Weight 83.91 kg; hj Height 5 ft. 10 in. (177.80 cm); Pain 0/10; 10:00 BP 104 / 69; Pulse 60; Resp 22; Pulse Ox 100% on 4 lpm NC; hj 10:42 BP 104 / 69; Pulse 64; Resp 18; Pulse Ox 100% on BiPAP; hj 12:19 BP 114 / 67; Pulse 70; Resp 18; Pulse Ox 100% on BiPAP; hj 12:30 BP 117 / 55; Pulse 72; Resp 18; Pulse Ox 100% on BiPAP; hj 09:22 Body Mass Index 26.54 (83.91 kg, 177.80 cm) hj ED Course: 09:21 Patient arrived in ED. hb 09:22 Triage completed. hb 09:23 Arm band placed on. hb 09:29 Donovan Costello MD is Attending Physician. rn 09:29 Vick Aviles RN is Primary Nurse. hj 09:30 EKG done, by public health sanitarian technician. reviewed by Donovan Costello MD. at1 09:31 Patient has correct armband on for positive identification. Placed in gown. Bed in low hj position. Call light in reach. Side rails up X2. Adult w/ patient. 09:43 X-ray completed. Portable x-ray completed in exam room. Patient tolerated procedure sw well. 09:45 XRAY CXR (1 view) In Process Unspecified. EDMS 10:29 Selena Chavez MD is Hospitalizing Provider. rn 12:53 No provider procedures requiring assistance completed. Patient admitted, IV remains in hj place. intact. Administered Medications: 09:31 Drug: Xopenex (3) 1.25 mg Route: Inhalation; hj 10:04 Follow up: Response: No adverse reaction; Wheezing diminished hj 09:32 Drug: NS 0.9% 250 ml Route: IV; Rate: 1 bolus; Site: PICC; 10:04 Follow up: IV Status: Completed infusion; IV Intake: 250ml 09:32 Drug: SOLU-Medrol 125 mg Route: IVP; Site: PICC; 10:03 Follow up: Response: No adverse reaction hj Intake: 10:04 IV: 250ml; Total: 250ml. Outcome: 10:30 Decision to Hospitalize by Provider. rn 12:54 Admitted to Med/surg accompanied by tech, family with patient, via stretcher, room 220, hj with oxygen, with chart, Report called to VIKTORIYA Reynolds 12:54 Condition: stable 12:54 Instructed on the need for admit, Demonstrated understanding of instructions. 12:56 Patient left the ED. Signatures: Dispatcher [employer] EDMS Donovan Costello MD MD rn Gonzales, Amanda, cooker mechanic EKG Tat1 Deena Noyola Henry, RN RN hj Baxter, Heather, RN RN hb Corrections: (The following items were deleted from the chart) 09:23 09:21 Acuity: CHEO 2 hb hb 09:23 09:21 Acuity: CHEO 3 hb hb 10:01 09:22 BP 92 / 48; Pulse 89bpm; Resp 24bpm; Pulse Ox 95% 5 lpm Nasal Cannula; Temp 97F; hj 83.91 kg; Height 5 ft. 10 in.; BMI: 26.5; Pain 0/10; hb
--- NOTE | 2019-01-28 10:31 | EDPHYS ---
Physician Documentation [facility] Name: Massimo Hauser Age: 73 yrs Sex: Male : 1945 Arrival Date: 01/28/2019 Time: 09:21 Bed 6 Private MD: ED Physician Donovan Costello HPI: 01/28 09:51 This 73 yrs old Male presents to ER via Wheelchair with complaints of rn Shortness Of Breath. 09:51 The patient has shortness of breath at rest, with light activity. Onset: The rn symptoms/episode began/occurred at an unknown time. Duration: The symptoms are continuous. The patient's shortness of breath is aggravated by exertion, light activity, supine position, talking, walking. Severity of symptoms: At their worst the symptoms were moderate in the emergency department the symptoms are unchanged. The patient has experienced similar episodes in the past. The patient has been recently seen at the [facility] Emergency Department. Reports open heart surgery last month, + hx of COPD and CHF, worsening sob over last week, seen here 2 days ago, admitted by Dr. Chino, discharged from ER by Dr. Chavez, states symptoms have gotten worse, bow BP low, + generalized weakness and dizziness. No chest pain.. Historical: - Allergies: 09:26 CEPHALOSPORINS; hb 09:26 Sulfa (Sulfonamide Antibiotics); hb 09:26 Tetanus Immune Globulin; hb - Home Meds: 09:26 Amiodarone Oral once daily [Active]; aspirin 81 mg Oral TbEC 1 tab once daily [Active]; hb atorvastatin 10 mg Oral tab 1 tab once daily [Active]; Breo Ellipta 200-25 mcg/dose inhalation dsdv 1 puff once daily [Active]; Bumetanide Oral [Active]; clopidogrel 75 mg Oral tab 1 tab once daily [Active]; Coreg Oral 2 times per day [Active]; Entresto Oral 2 times per day [Active]; Flomax 0.4 mg Oral cp24 once daily [Active]; Incruse Ellipta 62.5 mcg/actuation inhalation dsdv 1 puff once daily [Active]; irbesartan 150 mg Oral tab 1 tab once daily [Active]; Lantus 100 unit/mL Sub-Q soln 20 unit nightly [Active]; losartan Oral [Active]; Magnesium Oxide Oral [Active]; metformin 500 mg Oral tab 2 times per day [Active]; Mucinex Oral [Active]; Norvasc 10 mg Oral tab once daily [Active]; tramadol 50 mg Oral tab 1 tab every 6 hours [Active]; vancomycin intravenous [Active]; - PMHx: 09:26 COPD; Diabetes - NIDDM; Emphysema; Hypertension; Home O2 5LNC; hb - PSHx: : Cardiac Bypass December 2018; hb - Immunization history:: Adult Immunizations up to date. - Social history:: Smoking status: Patient/guardian denies using tobacco. - Ebola Screening: : No symptoms or risks identified at this time. - Family history:: not pertinent. - Hospitalizations: : Patient was recently seen at. ROS: 09:51 Constitutional: Negative for fever, chills Eyes: Negative for injury, pain, redness, rn and discharge, Neck: Negative for injury, pain, and swelling, Cardiovascular: Negative for chest pain, palpitations Respiratory: + sob and cough Abdomen/GI: Negative for abdominal pain, nausea, vomiting, diarrhea, and constipation, MS/Extremity: Negative for injury and deformity, Skin: Negative for injury, rash, and discoloration, Neuro: + generalized weakness Exam: 09:51 Constitutional: This is a well developed, well nourished patient who is awake, alert, rn + moderate respiratory distress Head/Face: Normocephalic, atraumatic. ENT: dry MM, no stridor Chest/axilla: Healed vertical post-surgical scar of midline chest. Cardiovascular: Irregular rhythm, no murmur, regular rate Respiratory: + diminished air flow bilateral lungs with diminished breath sounds bilateral bases, + faint exp wheezing, + tachypnea Abdomen/GI: soft, non-tender MS/ Extremity: Pulses equal, no cyanosis. Neurovascular intact. Full, normal range of motion. Equal circumference. Neuro: Awake and alert, GCS 15, oriented to person, place, time, and situation. Cranial nerves II-XII grossly intact. Motor strength 4/5 in all extremities. Sensory grossly intact. Cerebellar exam normal. Vital Signs: 09:22 BP 92 / 48; Pulse 89; Resp 26; Temp 97; Pulse Ox 95% on 5 lpm NC; Weight 83.91 kg; hj Height 5 ft. 10 in. (177.80 cm); Pain 0/10; 10:00 BP 104 / 69; Pulse 60; Resp 22; Pulse Ox 100% on 4 lpm NC; hj 10:42 BP 104 / 69; Pulse 64; Resp 18; Pulse Ox 100% on BiPAP; hj 12:19 BP 114 / 67; Pulse 70; Resp 18; Pulse Ox 100% on BiPAP; hj 12:30 BP 117 / 55; Pulse 72; Resp 18; Pulse Ox 100% on BiPAP; hj 09:22 Body Mass Index 26.54 (83.91 kg, 177.80 cm) MDM: 09:29 Patient medically screened. rn 10:28 Differential diagnosis: CHF exacerbation, Chronic Obstructive Pulmonary Disease rn Myocardial Infarction pneumonia, pulmonary edema, Sepsis. Data reviewed: vital signs, nurses notes, lab test result(s), EKG, radiologic studies, plain films, and as a result, I will admit patient. Counseling: I had a detailed discussion with the patient and/or guardian regarding: the historical points, exam findings, and any diagnostic results supporting the discharge/admit diagnosis, lab results, radiology results, the need for further work-up and treatment in the hospital. Response to treatment: the patient's symptoms have mildly improved after treatment, and as a result, I will admit patient. Admission orders: after a detailed discussion of the patient's condition and case, the admit orders are written by me. ED course: Pt improved with small amount of fluid and bipap, ABG looks ok, cxr without change, still combination of chf/copd. Will admit for further care given respiratory distress as well as hypotension. On abx for MRSA already. Will admit to Dr. Chavez.. 01/28 09:30 Order name: ABG rn 01/28 09:30 Order name: Blood Culture Adult (2) rn 01/28 09:30 Order name: BMP; Complete Time: 10:12 rn 01/28 09:30 Order name: CBC with Diff; Complete Time: 10:09 rn 01/28 09:30 Order name: NT PRO-BNP; Complete Time: 10:12 rn 01/28 09:30 Order name: PT-INR; Complete Time: 10:23 rn 01/28 09:30 Order name: BIPAP rn 01/28 09:30 Order name: XRAY CXR (1 view); Complete Time: 11:06 rn 01/28 09:30 Order name: Ptt, Activated; Complete Time: 10:23 rn 01/28 09:30 Order name: Troponin (emerg Dept Use Only); Complete Time: 10:12 rn 01/28 11:59 Order name: Procalcitonin EDSD 01/28 09:30 Order name: EKG; Complete Time: 09:33 rn 01/28 09:30 Order name: Cardiac monitoring; Complete Time: 09:32 rn 01/28 09:30 Order name: EKG - Nurse/Tech; Complete Time: 09:32 rn 01/28 09:30 Order name: IV Saline Lock; Complete Time: 09:32 rn 01/28 09:30 Order name: Labs collected and sent; Complete Time: : rn 01/28 09:30 Order name: O2 Per Protocol; Complete Time: : rn 01/28 09:30 Order name: O2 Sat Monitoring; Complete Time: 09:32 rn Administered Medications: 09:31 Drug: Xopenex (3) 1.25 mg Route: Inhalation; hj 10:04 Follow up: Response: No adverse reaction; Wheezing diminished hj 09:32 Drug: NS 0.9% 250 ml Route: IV; Rate: 1 bolus; Site: PICC; hj 10:04 Follow up: IV Status: Completed infusion; IV Intake: 250ml hj 09:32 Drug: SOLU-Medrol 125 mg Route: IVP; Site: PICC; hj 10:03 Follow up: Response: No adverse reaction hj Disposition: 01/28/19 10:30 Hospitalization ordered by Selena Chavez for Inpatient Admission. Preliminary diagnosis are Unspecified combined systolic (congestive) and diastolic (congestive) heart failure, Chronic obstructive pulmonary disease with (acute) exacerbation, Hypoxemia. - Bed requested for Telemetry/MedSurg (Inpatient). - Status is Inpatient Admission. hj - Condition is Fair. - Problem is new. - Symptoms have improved. UTI on Admission? No Signatures: Dispatcher [employer] [facility] Stella Cruz Roman, MD MD rn Joaquin, Henry, RN RN hj Baxter, Heather, RN RN Corrections: (The following items were deleted from the chart) 12:15 10:30 Hospitalization Ordered by Selena Chavez MD for Inpatient Admission. Preliminary bd diagnosis is Unspecified combined systolic (congestive) and diastolic (congestive) heart failure; Chronic obstructive pulmonary disease with (acute) exacerbation; Hypoxemia. Bed requested for Telemetry/MedSurg (Inpatient). Status is Inpatient Admission. Condition is Fair. Problem is new. Symptoms have improved. UTI on Admission? No. rn 12:56 12:15 01/28/2019 10:30 Hospitalization Ordered by Selena Chavez MD for Inpatient Admission. Preliminary diagnosis is Unspecified combined systolic (congestive) and diastolic (congestive) heart failure; Chronic obstructive pulmonary disease with (acute) exacerbation; Hypoxemia. Bed requested for Telemetry/MedSurg (Inpatient). Status is Inpatient Admission. Condition is Fair. Problem is new. Symptoms have improved. UTI on Admission? No. bd
--- NOTE | 2019-01-28 10:34 | EKG ---
Test Date: 2019-01-28 Test Time: 09:28:29 Wood Technologist: IRA MEASUREMENT RESULTS: Intervals: Rate: 76 TX: QRSD: 154 QT: 470 QTc: 528 Monon: P: 262 TX: QRS: -71 T: 113 INTERPRETIVE STATEMENTS: Atrial flutter with variable AV block Right bundle branch block Left anterior fascicular block Bifascicular block Inferior infarct, age undetermined Anterior infarct, age undetermined T wave abnormality, consider lateral ischemia Abnormal ECG Compared to ECG 01/26/2019 11:29:51 Bifascicular block now present Myocardial infarct finding still present T-wave abnormality still present Possible ischemia still present Electronically Signed On 01-28-19 10:34:03 CDT by Ric Hudson
[2019-01-28] MEDS ORDERED: IPRATROPIUM BROM 0.5MG/2.5ML NEB PRN (13:02)
[2019-01-28] MEDS ORDERED: ONDANSETRON 4 MG/2 ML VIAL IV PRN (13:02)
[2019-01-28] MEDS ORDERED: ACETAMINOPHEN 500 MG TAB PO PRN (13:02)
[2019-01-28] MEDS ORDERED: ALBUTEROL 2.5 MG/3 ML NEB SOL NEB PRN (13:02)
[2019-01-28] MEDS ORDERED: HYDROCODONE/APAP 5/325 MG TAB PO PRN (13:28)
[2019-01-28] MEDS ORDERED: POTASSIUM CL SA 10 MEQ TAB PO ONE (13:43)
[2019-01-28] MEDS: VANCOMYCIN 1.5 GM in NA CHLORIDE 0.9% 500 ML IVPB SCH (14:02)
[2019-01-28 14:36] LABS: Urine Appearance CLEAR; Urine Bilirubin NEGATIVE (NEG); Urine Blood 2+ (NEG); Urine Color YELLOW; Urine Glucose NEGATIVE (NEG); Urine Protein NEGATIVE (NEG); Urine Specific Gravity 1.015 (1.005-1.030); Urine Urobilinogen 0.2 mg/dL (0.2-1.0)
[2019-01-28 14:53] LABS: Urine Bacteria <20 /HPF (NONE SEEN); Urine Culture Reflex Order NOT NEEDED
[2019-01-28] MEDS: FUROSEMIDE 40 MG/4 ML VIAL IV SCH (16:25)
[2019-01-28] MEDS: Meropenem 1,000 MG in NA CHLORIDE 0.9% 100 ML IV SCH (16:27)
[2019-01-28] MEDS ORDERED: Meropenem 1000 MG/VIAL IV SCH (17:00)
[2019-01-28] MEDS: CARVEDILOL 12.5 MG TAB PO SCH (17:14)
[2019-01-28] MEDS: ALBUTEROL 2.5 MG/3 ML NEB SOL NEB PRN (20:40)
[2019-01-28] MEDS: IPRATROPIUM BROM 0.5MG/2.5ML NEB PRN (20:40)
[2019-01-28] MEDS ORDERED: VANCOMYCIN 1.25 GM in NA CHLORIDE 0.9% 250 ML IVPB SCH (21:00)
[2019-01-28] MEDS: ZINC OXIDE 20% OINTMENT 60gm TOP SCH (21:39)
[2019-01-28] MEDS: SACUBITRIL/VALSARTAN 24/26 MG TAB PO SCH (21:39)
[2019-01-28] MEDS: ATORVASTATIN 40 MG TAB PO SCH (21:39)
[2019-01-28] MEDS: TAMSULOSIN 0.4 MG SR CAP PO SCH (21:39)
[2019-01-28] MEDS: GUAIFENESIN 600 MG SA TAB PO SCH (21:39)
[2019-01-28] MEDS: RANITIDINE 150 MG TABLET PO SCH (21:40)
--- NOTE | 2019-01-29 00:34 | HP ---
Date of Admission: 01/28/2019 Primary Care Physician: Kevin Arana MD Chief Complaint: Shortness of breath. Code Status: Full. History Of Present Illness: The patient is a 73-year-old male with a past medical history of coronar y artery disease, status post recent coronary artery bypass graft; 2 vessel disease done at [facility] in December; congestive heart failure; systolic dysfunction, diabetes, non-insulin dependent; COPD; his tory of bladder cancer; hyperlipidemia; peripheral vascular disease; history of brain aneurysm, statu s post surgery, who was recently discharged from the hospital on January 20, 2019. He was supposed to f ollow up with Dr. Lerner and he has sleep apnea, however, has not been set up with CPAP. He used t o have a machine, however, currently does not have a machine. Patient states that since the surgery, his shortness of breath has been worsening. He reports compliance with his medications. His sympto ms are constant, moderate, progressively worsening. Patient is currently on treatment for pneumonia with vancomycin. His sputum cultures were positive for MRSA on January 15. In the ER, his workup revea led white count of 11.9. Should also be noted the patient was in the ER the day prior to admission a nd was discharged home after improvement with Lasix. Patient's imaging studies showed worsening infi ltrate pneumonia in the left lower lobe compared to 01/26/2019. Patient was then referred for admiss ion. When seen in the ER, he was awake, alert, oriented x3. Some mild respiratory distress. Past Medical History: Coronary artery disease, status post CABG; essential hypertension; diabetes me llitus type 2; non-insulin dependent COPD; systolic congestive heart failure, EF of 25%; history of b ladder cancer; hyperlipidemia; peripheral vascular disease; history of brain aneurysm. Past Surgical History: Coronary artery bypass graft, 2 vessel disease, brain aneurysm surgery, herni a repair. Allergies: CEPHALOSPORIN CAUSES SHORTNESS OF BREATH. SULFA CAUSES NAUSEA AND VOMITING. TETANUS ADONAY T CAUSES ANAPHYLAXIS. Social History: Patient is a former smoker. Denies any alcohol use or illicit drug use. Currently lives at home. Family History: Father had cancer, for which he unknown primary. Review of Systems: Ten-point system reviewed, negative except as per HPI. Physical Examination: Vital Signs: Temperature 97, heart rate 89, blood pressure 92/48, respirations 26, O2 of 95% on 5 L via nasal cannula. General: Awake, alert, and oriented x3 elderly male, in some respiratory distress. HEENT: Normocephalic, atraumatic. PERRLA. EOMI. Moist mucous membranes. Oropharynx is clear. Co njunctivae anicteric. Neck: Supple. Trachea midline. Patient has some jugular venous distention. Cardiovascular: S1, S2. Regular rate and rhythm. Peripheral pulses weak. Bilaterally respiratory diminished breath sounds. Crackles heard. No wheezing or stridor. No use of accessory muscles. Gastrointestinal: Abdomen is soft, nontender, nondistended. Positive bowel sounds. Extremities: No clubbing, cyanosis. Patient does have pedal edema. No calf tenderness. Neurologic: Cranial nerves 2 through 12 intact grossly. No focal neurological deficit. Speech is n ormal. Laboratory Data: Sodium 144, potassium 3.9, chloride 105, CO2 of 36, BUN 27, creatinine 1.17, glucos e 145, calcium 8.5. Troponin 0.02. BNP 5786. Procalcitonin less than 0.05. WBC 11.9, H and H 11.8 and 38.1, platelets 139, neutrophils 84%. INR 1.05. ABG: pH 7.41, pCO2 of 52, pO2 of 89, bicarb 3 2. UA negative. Nitrite negative. Negative leukocyte esterase. 10-20 rbc, less than 5 wbc, less t peguero 20 bacteria. Chest x-ray personally reviewed shows mild worsening infiltrate pneumonia in the left lower lobe. EK G shows atrial flutter with variable AV block, rate of 76, right bundle branch block, left anterior f ascicular block. Assessment And Plan: A 73-year-old male with: 1.Acute on chronic respiratory failure with hypercapnia and hypoxia. We will continue with BiPAP se condary to congestive heart failure and chronic obstructive pulmonary disease. 2.Acute on chronic systolic heart failure. We will continue on congestive heart failure guidelines, beta-luke. Patient is already on Entresto. We will monitor strict I's and O's, free fluid restr iction. 3.Noncompliance with diet, intentional. 4.Chronic obstructive pulmonary disease. We will continue with nebulizer treatments and supplementa l O2. 5.Diabetes mellitus type 2, non-insulin, requiring with hyperglycemia. We will start on sliding sca le insulin and monitor blood glucose levels. 6.Bifascicular block. 7.History of bladder cancer. 8.Nicotine dependence. 9.Essential hypertension. Patient initially was hypotensive; however, blood pressure is improved. 10.Mixed hyperlipidemia. 11.Peripheral vascular disease. We will continue aspirin. 12.History of brain aneurysm, status post surgery. 13.Coronary artery disease, [place] artery and [place] heart, status post coronary artery bypass graft without angina. Plan: Admit the patient to Med-Surg, place as inpatient. Length of stay greater than 2 midnights. SUZY Voice ID: [id number]
[2019-01-29] MEDS: Meropenem 1,000 MG in NA CHLORIDE 0.9% 100 ML IV SCH ×3 (00:53→16:19)
[2019-01-29] MEDS: CARVEDILOL 12.5 MG TAB PO SCH ×2 (05:31→17:31)
[2019-01-29 05:50] LABS: Absolute Lymphocytes (CBC) 0.5 K/uL (0.7-4.9); Basophils % 0.2 % (0-1.3); Hematocrit 35.6 % (39.6-49.0); Lymphocytes % 4.9 % (15.3-44.8); RBC Red Blood Cell Count 4.47 M/uL (4.33-5.43)
[2019-01-29 06:07] LABS: Magnesium 2.5 mg/dL (1.8-2.4); Potassium 4.1 mmol/L (3.5-5.1)
[2019-01-29 08:11] LABS: Blood Morphology Comment NOTED (NOT SEEN); Platelet Estimate ADEQ
[2019-01-29] MEDS: VANCOMYCIN 1.5 GM in NA CHLORIDE 0.9% 500 ML IVPB SCH (08:15)
[2019-01-29] MEDS: FUROSEMIDE 40 MG/4 ML VIAL IV SCH ×2 (08:15→16:19)
[2019-01-29] MEDS: ASPIRIN 81 MG CHEWABLE TABLET PO SCH (08:16)
[2019-01-29] MEDS: AMIODARONE HCL 200 MG TAB PO SCH (08:16)
[2019-01-29] MEDS: GUAIFENESIN 600 MG SA TAB PO SCH ×2 (08:16→21:23)
[2019-01-29] MEDS: CLOPIDOGREL 75 MG TABLET PO SCH (08:16)
[2019-01-29] MEDS: ZINC OXIDE 20% OINTMENT 60gm TOP SCH ×2 (08:17→21:00)
[2019-01-29] MEDS: SACUBITRIL/VALSARTAN 24/26 MG TAB PO SCH ×2 (08:22→21:23)
[2019-01-29] MEDS ORDERED: RANITIDINE 150 MG TABLET PO SCH (09:00)
--- NOTE | 2019-01-29 13:01 | P.CNS ---
Date of Consult: 01/29/19 Chief Complaint: Shortness of breath History of Present Illness: Patient is 73 years of age admitted with shortness of breath he claims that as soon as he gets Lasix is breathing improves has also complaining of orthopnea in addition patient has obstructive sleep apnea needs a new machine and supplies last sleep study was done in 2007. Patient denies any cough sputum hemoptysis or chest pain denies any lower extremity edema patient has severe congestive heart failure Allergies Cephalosporins Allergy (Verified 08/10/16 16:33) Shortness of breath Sulfa (Sulfonamide Antibiotics) Allergy (Verified 08/10/16 16:33) Nausea/Vomiting tetanus immune globulin Allergy (Verified 08/10/16 16:33) Anaphylaxis Home Medications: Metformin ER [Glucophage ER*] 500 mg PO BID 06/02/14 Tamsulosin [Flomax*] 0.4 mg PO BEDTIME 06/02/14 Aspirin 81 mg PO DAILY 08/10/16 Guaifenesin [Mucinex] 600 mg PO BID 08/10/16 Amiodarone HCl [Pacerone] 1 tab PO DAILY 01/14/19 Atorvastatin Calcium 1 tab PO BEDTIME 01/14/19 Bumetanide [Bumex] 1 mg PO BID 01/14/19 Clopidogrel Bisulfate [Clopidogrel] 75 mg PO DAILY 01/14/19 Fluticasone Propionate [Flovent Diskus] 1 puff IH BID PRN 01/14/19 Fluticasone/Vilanterol [Breo Ellipta 200-25 Mcg INH] 1 puff IH DAILY PRN Hydrocodone 5/APAP 325 [Concepcion 5/325*] 1 tab PO DAILY PRN 01/14/19 Ipratropium/Albuterol Sulfate [Combivent Respimat 20-100 Mcg] 2 puff IH Q4H PRN 01/14/19 Ipratropium/Albuterol Sulfate [Iprat-Albut 0.5-3(2.5) mg/3 ml] 3 ml IH Q4H PRN 01/14/19 Losartan Potassium 0.5 tab PO DAILY 01/14/19 Magnesium Oxide [Magnesium] 1 tab PO DAILY 01/14/19 Tramadol HCl [Ultram] 1 tab PO Q6H PRN 01/14/19 Zinc Oxide/Petrolatum,White [[place] Moist Barrier Cream] 1 appl TOP BID 04/25 Arformoterol Tartrate [Brovana] 15 mcg IH BIDP PRN 30 Days #60 ml 01/21/19 Ipratropium Neb [Atrovent Neb] 0.5 mg IH Q6HP PRN 30 Days #120 amp 01/21/19 Carvedilol [Coreg*] 12.5 mg PO BID 6AM 6PM 01/28/19 Losartan Potassium 25 mg PO DAILY 01/28/19 Ranitidine [Zantac*] 1 tab PO DAILY 01/28/19 Sacubitril/Valsartan [Entresto 24 mg-26 mg Tablet] 1 tab PO BID 01/28/19 - Past Medical/Surgical History Diabetic: Yes -: HTN -: Diabetes mellitus type 2, non insulin dependent -: COPD -: Biventricular systolic CHF, EF 25% -: Bladder cancer -: Tobacco abuse -: Hyperlipidemia -: History of CABG x2 vessel -: PVD -: History of brain aneurysm with surgery -: Hernia repair -: CABG x2 vessels -: Brain aneurysm surgery Psychosocial/ Personal History: Patient lives at home. - Family History Father Medical History: Cancer Notes: father with cancer - Social History Smoking Status: Former smoker Alcohol use: Yes CD- Drugs: No Caffeine use: No Place of Residence: Home Review of Systems 10-point ROS is otherwise unremarkable Respiratory: Shortness of Breath, SOB with Excertion Physical Examination Temp Pulse Resp BP Pulse Ox 97.3 F 68 20 121/60 99 01/29/19 12:00 01/29/19 12:00 01/29/19 12:00 01/29/19 12:00 01/29/19 12:00 General: Alert, In no apparent distress, Oriented x3 Neck: Supple Respiratory: Clear to auscultation bilaterally Cardiovascular: No edema, Regular rate/rhythm, Normal S1 S2 Gastrointestinal: Normal bowel sounds, Soft and benign - Problems (1) Congestive heart failure Current Visit: No Status: Acute Plan: Patient is 73 years of age with severe congestive heart failure admitted with shortness of breath and orthopnea his BNP is very elevated I suggest starting on least 40 mgPatient claims that the Lasix really helps him. He also has sleep apnea of both fax in a prescription for my office for CPAP machine and supplies he may need another sleep study labs all reviewed chemistries unremarkable patient is on Bumex at home chest x-ray shows some minimal left basilar haziness probably a pleural effusion patient has a history of COPD is compliant with his inhalers patient in the past has had Mr isolated currently sputum shows 3+ gram-negative rods. Await ID Qualifiers: Heart failure type: systolic Heart failure chronicity: acute on chronic Qualified Code(s): I50.23 - Acute on chronic systolic (congestive) heart failure
[2019-01-29] MEDS: IPRATROPIUM BROM 0.5MG/2.5ML NEB PRN ×2 (13:30→17:40)
[2019-01-29] MEDS: ALBUTEROL 2.5 MG/3 ML NEB SOL NEB PRN (13:30)
--- NOTE | 2019-01-29 13:57 | PN ---
Date of Progress Note: 01/29/2019 Subjective: Patient seen and examined. Chart reviewed and case discussed with RN and Dr. Lerner. Patient states he is doing better, does not feel short of breath. Patient was on CPAP at night for his sleep apnea. Medications: List reviewed. Physical Examination: Vital Signs: Temperature 97.1, heart rate 68, blood pressure 150/67 respirations 68, O2 of 100% on 3 L via nasal cannula. General: Awake, alert, and oriented x3. Elderly male, in some mild respiratory distress. CV: S1, S2, irregularly irregular. Peripheral pulses present. Respiratory: Diminished breath sounds some crackles heard. No wheezing or stridor gastrointestinal. Abdomen: Abdomen is soft, nontender, nondistended. Positive bowel sounds. Extremities: No clubbing, cyanosis, or edema. Neuro: Cranial nerves 2 through 12 intact grossly. No focal neurological deficit. Speech is normal . Skin: No rashes. Normal skin turgor. Laboratory Data: Sodium 144, potassium 4.1, chloride 107, CO2 of 34, BUN 30, creatinine 1.03, glucos e, 148, calcium 8.4, magnesium 2.5. WBC 10.1, H and H 11.5 and 35.6, platelets 136, neutrophils 89%. Blood cultures no growth to date. Sputum cultures growing 3+ gram-negative rods. Assessment And Plan: A 73-year-old male with: 1.Acute on chronic respiratory failure with hypercapnia and hypoxia. 2.Chronic obstructive pulmonary disease, pneumonia and congestive heart failure improving. Patient now off and currently on nasal cannula, however, does require CPAP at night for sleep apnea. 3.Acute on chronic systolic heart failure. We will continue with congestive heart failure guideline s. Continue Lasix. Patient counseled regarding dietary restrictions, voiced understanding. We will continue to monitor. We will repeat chest x-ray in a.m. 4.Pneumonia secondary to gram-negative bacteria, as well as MRI say from previous hospitalization. Patient currently on vancomycin and meropenem. We will follow up with sputum culture sensitivity in ID. We will repeat chest x-ray in a.m. 5.Noncompliance with diet intentional counseled. 6.Chronic obstructive pulmonary disease. Continue with nebulizer treatments and supplemental O2. 7.Diabetes mellitus type 2 [id number] with hyperglycemia. We will continue sliding scale insulin, monitor Accu-Cheks. 8.Bifascicular block. 9.History of bladder cancer. 10.Essential hypertension, blood pressure initially on the low side, however, now improved. We will resume home medications as appropriate. 11.History of bladder cancer. 12.Nicotine dependence with cigarette smoking, counseled. 13.Mixed hyperlipidemia. 14.Peripheral vascular disease, on aspirin. 15.History of brain aneurysm, status post surgery. 16.Coronary artery disease crow artery and crow heart status post coronary artery bypass graft w ithout angina. 17.Deep vein thrombosis prophylaxis addressed. Atrial flutter may be paroxysmal, we will need to in vestigate further if patient has previous history. Plan: Likely discharge in the next 24-48 hours depending on clinical improvement. /NOHELIA Voice ID: [id number] Report ID: [id number]
--- NOTE | 2019-01-29 14:11 | RAD REPORT ---
EXAM DESCRIPTION: RAD - Chest Single View - 01/29/2019 1:46 pm CLINICAL HISTORY: CHF COMPARISON: January 2019 TECHNIQUE: AP portable chest image was obtained 1344 hours . FINDINGS: Prominent interstitial lung pattern matches comparison. Greater stranding is seen in the l eft base with there is also left hemidiaphragm elevation. Left base findings are less prominent than seen previously. No progressive lung parenchymal process. Sternotomy wires in place. Trachea is midline. Heart and vasculature are normal. No measurable pleura l effusion and no pneumothorax. No acute bony abnormality seen. No acute aortic findings suspected. IMPRESSION: Slight improvement in the left base opacification since prior imaging. No new or progressive finding.
[2019-01-29] MEDS ORDERED: ENOXAPARIN 40 MG/0.4 ML SQ SCH (17:00)
[2019-01-29] MEDS ORDERED: D50W 25 GM/50 ML SYRINGE IV PRN (17:24)
[2019-01-29] MEDS ORDERED: GLUCAGON 1 MG/VIAL IM PRN (17:24)
[2019-01-29] MEDS: INSULIN -REGULAR HUMAN 50 UNIT/0.5 ML ML SQ SCH (21:00)
[2019-01-29] MEDS: RANITIDINE 150 MG TABLET PO SCH (21:23)
[2019-01-29] MEDS: TAMSULOSIN 0.4 MG SR CAP PO SCH (21:23)
[2019-01-29] MEDS: ATORVASTATIN 40 MG TAB PO SCH (21:23)
[2019-01-30] MEDS: Meropenem 1,000 MG in NA CHLORIDE 0.9% 100 ML IV SCH ×2 (00:05→09:06)
[2019-01-30] MEDS: VANCOMYCIN 1.5 GM in NA CHLORIDE 0.9% 500 ML IVPB SCH (01:46)
[2019-01-30 04:48] LABS: Absolute Lymphocytes (CBC) 1.3 K/uL (0.7-4.9); Basophils % 0.3 % (0-1.3); Hematocrit 35.8 % (39.6-49.0); Lymphocytes % 11.8 % (15.3-44.8); MPV 9.2 fL (7.6-11.3); RBC Red Blood Cell Count 4.53 M/uL (4.33-5.43)
[2019-01-30 05:02] LABS: Potassium 3.6 mmol/L (3.5-5.1)
[2019-01-30] MEDS: CARVEDILOL 12.5 MG TAB PO SCH (05:07)
[2019-01-30 06:17] VITALS: BMI 26.6
[2019-01-30] MEDS ORDERED: POTASSIUM CL SA 10 MEQ TAB PO ONE (07:00)
[2019-01-30] MEDS: INSULIN -REGULAR HUMAN 50 UNIT/0.5 ML ML SQ SCH ×2 (07:30→11:30)
[2019-01-30] MEDS: CLOPIDOGREL 75 MG TABLET PO SCH (09:10)
[2019-01-30] MEDS: GUAIFENESIN 600 MG SA TAB PO SCH (09:10)
[2019-01-30] MEDS: SACUBITRIL/VALSARTAN 24/26 MG TAB PO SCH (09:10)
[2019-01-30] MEDS: AMIODARONE HCL 200 MG TAB PO SCH (09:11)
[2019-01-30] MEDS: ASPIRIN 81 MG CHEWABLE TABLET PO SCH (09:11)
[2019-01-30] MEDS: FUROSEMIDE 40 MG/4 ML VIAL IV SCH (09:11)
[2019-01-30] MEDS: ZINC OXIDE 20% OINTMENT 60gm TOP SCH (09:11)
[2019-01-30 12:25] VITALS: O2SAT 99
[2019-01-30 12:48] VITALS: BP 106/53; TEMP 97.1
--- NOTE | 2019-01-30 16:00 | DS ---
Date of Discharge: 01/30/2019 Consultants: Marcos Lerner MD with Pulmonology. Admitting Diagnoses: 1.Acute on chronic respiratory failure with hypercapnia and hypoxia secondary to chronic obstructive pulmonary disease and congestive heart failure. 2.Acute congestive heart failure exacerbation, systolic dysfunction. 3.Noncompliance, intentional. 4.Chronic obstructive pulmonary disease. 5.Diabetes mellitus type 2 [id number]-wpvphcd-bsuhgfgsm with hyperglycemia. 6.Bifascicular block. 7.History of bladder cancer. 8.Nicotine dependence. 9.Essential hypertension, initially hypotensive. 10.Peripheral vascular disease. 11.History of brain aneurysm, status post surgery. 12.Coronary artery disease. [place] artery and pokagon heart status post. Discharge Diagnoses: 1.Acute on chronic respiratory failure with hypoxia and hypercapnia. 2.Acute on chronic systolic heart failure, systolic dysfunction, improved. 3.Chronic obstructive pulmonary disease. 4.Pneumonia secondary to methicillin-resistant Staphylococcus aureus, Pseudomonas, and Aeromonas. T he patient will continue his IV infusions of vancomycin and finish off course of Levaquin. 5.Noncompliance with diet, intentional. 6.Diabetes mellitus type 2 ohu-knlvvae-minddvhtp with hyperglycemia. 7.Bifascicular block. 8.History of bladder cancer. 9.Essential hypertension. 10.Nicotine dependence with cigarette smoking. 11.Mixed hyperlipidemia. 12.Peripheral vascular disease. 13.History of brain aneurysm, status post surgery. 14.Coronary artery disease, pokagon artery and pokagon heart status post coronary artery bypass grafti ng. Hospital Course: Patient is a 73-year-old male with multiple recurrent admissions, has multiple iglesia rbid conditions including coronary artery disease status post recent CABG, congestive heart failure, diabetes, COPD, comes in with shortness of breath. Patient is currently on treatment for MRSA in the sputum cultures from January 15 from his previous visit to the hospital and is on vancomycin. He had s ome worsening of his pneumonia. He was started on vancomycin and meropenem. Cultures were obtained, which grew out Pseudomonas and Aeromonas. Patient was also in heart failure, was requiring BiPAP du e to his hypercapnic hypoxic acute on chronic respiratory failure. He did improve with treatment. H e was started on Lasix, which improved his breathing. He is on oxygen at home. Patient johana jansen. He was seen by senior payroll administrator, Dr. Lerner. Patient has been noncompliant with his CPAP in the p ast. He will need to be set up again with CPAP. He was instructed to contact his supply agency for his CPAP to be set up through Dr. Lerner's office. Overall, patient did well. His breathing impro dalton. His blood pressure also improved, initially was low. Patient was able to ambulate without diff iculty. His blood cultures remained negative. Repeat chest x-ray showed slight improvement in the l eft base opacification. He was then cleared for discharge and was sent home with home health to cont inue IV infusion of vancomycin with weekly labs and to follow the vanc trough, vancomycin to be dosed renally. Medications: As per medication reconciliation list. Followup: Follow up with primary care physician in 2-3 days. Follow up with senior payroll administrator, Dr. Tayo portillo in 2 weeks. Return to ER for worsening condition. Diet: Diabetic. Activity: As tolerated. No strenuous activity. Physical Examination: General: Awake, alert, and oriented x3. Elderly male. CV: S1-S2. Respiratory: Moving air well bilaterally. Some diminished breath sounds at the left base. Gastrointestinal: Abdomen is soft, nontender, nondistended. Positive bowel sounds. Extremities: No clubbing, cyanosis, or edema. Neurologic: Nonfocal. Total time spent discharging the patient was 33 minutes. /NOHELIA Voice ID: [id number] Report ID: [id number]
== END 2019-01-30 15:42 | disposition home health service (06) | DRG 291 ==
LOC: ER 09:15 → ERHOLD 11:58 → 2ND 12:36
PROVIDERS: ADMIT Family Medicine; ATTEND Family Medicine
DX: I11.0 Hypertensive heart disease with heart failure (principal); J96.22 Acute and chronic respiratory failure with hypercapnia; J96.21 Acute and chronic respiratory failure with hypoxia; J15.1 Pneumonia due to Pseudomonas; J15.212 Pneumonia due to Methicillin resistant Staphylococcus aureus; J15.8 Pneumonia due to other specified bacteria; I45.2 Bifascicular block; J44.0 Chronic obstructive pulmonary disease with (acute) lower respiratory infection; I50.23 Acute on chronic systolic (congestive) heart failure; F17.210 Nicotine dependence, cigarettes, uncomplicated; Z91.11 Patient's noncompliance with dietary regimen; G47.33 Obstructive sleep apnea (adult) (pediatric); E11.65 Type 2 diabetes mellitus with hyperglycemia; E11.51 Type 2 diabetes mellitus with diabetic peripheral angiopathy without gangrene; I25.10 Atherosclerotic heart disease of native coronary artery without angina pectoris; E78.2 Mixed hyperlipidemia; Z95.1 Presence of aortocoronary bypass graft; Z85.51 Personal history of malignant neoplasm of bladder; Z88.1 Allergy status to other antibiotic agents; Z88.2 Allergy status to sulfonamides; Z88.7 Allergy status to serum and vaccine
CPT/HCPCS: 36415; 71045; 80048; 80076; 80202; 81001; 81003; 82805; 82962; 83605; 83690; 83735; 83880; 84145; 84484; 85025; 85610; 85730; 87040; 87070; 87077; 87086; 87088; 87186; 87205; 93005; 94660; 94760; 96365; 96374; 96375; 99285; J1650; J1940; J2930

== ENCOUNTER 2019-02-13 17:19 | Inpatient (IN) | payer MEDICARE ==
--- OUTSIDE RECORDS SUMMARY | 2019-02-13 17:21 | XMS REPORT | Clinical Summary ---
:1945 Author Organization [facility] Address [address] [place] [address] Care Team Providers Name Role Phone Adam [...] BIOPSY 12/02/2018 Anesthesia Event Urology Triny Hawkins, RN [facility] 12/02/2018 Hospital Encounter Urology Alex Pugh, Bladder cancer ( HCC) MD after 02/12/2018 Social History Tobacco Use Types Packs/Day Years [...] 12/02/2018 10:55 AM Bladder cancer TURBT CDT ([facility]) Case Notes TF, REQ 1230 START, EST 1HR, POSSIBLE EXTENDED STAY, R/S PER PACO 05/03 [facility] Special Needs TF, REQ 1230 START, EST 1HR, POSSIBLE EXTENDED STAY OR AN ELECTIVE SUPRAGLOTTIC AIRWAY Routine 12/02/2018 10:53 AM CDT Procedure Note - 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 - 12/02/2018 10:53 AM CDT Airway Date/Time: [...] GLUCOSE Routine 12/02/2018 9:15 AM CDT after 02/12/2018 Results Surgical pathology request (12/02/2018 1:17 PM CDT) [facility] DEPARTMENT OF PATHOLOGY AND GENOMIC MEDICINE Surgical pathology See link below [facility] DEPARTMENT OF report for PDF Lab PATHOLOGY AND Report GENOMIC MEDICINE Result status This is Final [facility] DEPARTMENT OF Report for PATHOLOGY AND [id number] GENOMIC MEDICINE Specimen Narrative Performed At [id number] [facility] DEPARTMENT OF PATHOLOGY AND GENOMIC MEDICINE [place] Performing Organization Address [facility] [place]/[facility] Cent[facility]ode Phone Number [facility] DEPARTMENT OF PATHOLOGY AND [address] [place] [id number] GENOMIC MEDICINE Cytology (non-gynecological) request (12/02/2018 12:54 PM CDT) [facility] DEPARTMENT OF PATHOLOGY AND GENOMIC MEDICINE Cytology See link below [facility] DEPARTMENT OF (non-gynecological) for PDF Lab PATHOLOGY AND report Report GENOMIC MEDICINE Result status This is Final [facility] DEPARTMENT OF Report for PATHOLOGY AND [id number] GENOMIC MEDICINE Specimen Performing Organization Address [facility] [place]/[facility] Centercode Phone Number [facility] DEPARTMENT OF PATHOLOGY AND [address] [place] [phone] GENOMIC MEDICINE POC glucose (12/02/2018 11:37 AM CDT)Only the most recent of2 resultswithin the time period is included. Pathologist [facility] POC glucose 124 (H) 65 - 99 mg/dL [facility] Comment: [facility] Notified RN Meter ID: [id number] Bead Forming Machine Operator: Edmund Moncada Specimen Performing Organization Address City/State/Zipcode Phone Number [facility] DEPARTMENT OF PATHOLOGY AND [address] [place] [address] GENOMIC MEDICINE [facility] [address] [place] [address] [place] Pyelogram Retrograde (12/02/2018 11:25 AM CDT) [...] provider for procedure details. Performing Organization Address City/[facility]/Zipcode Phone Number [facility] [address] [place] [address] Calculi analysis with photo (12/02/2018 11:09 AM [...] REF LAB analysis and photo Comment: Access [facility] Enhanced Report using either link below: -Direct access: [email or web address] -Enter Username, Password: [email or web address] Username: [email or web address] Password: [email or web address] Performed by [employer], [address] [place] [address] [email or web address], Walker Larkin MD - Lab. Director Specimen Serum Narrative Performed At [id number] [facility] [place] Performing Organization Address City/State/Zipcode Phone Number [facility] [address] [place] [address] [facility] [address] [place] [address] after 02/12/2018 Advance Directives Patient has advance care planning documents on file. For more information, please contact:Jose Miguel Garces[address] [place] [address]
--- OUTSIDE RECORDS SUMMARY | 2019-02-13 17:24 | XMS REPORT | Clinical Summary ---
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, unspecified vessel or lesion type, unspecified whether stebbins or transplanted heart (HCC) Special Needs (ICU [...] 404 ms QTC Calculation(Bazett) 499 ms P [place] 80 degrees R [place] -75 degrees T [place] 88 degrees Sinus rhythm with Premature supraventricular [...] 424 ms QTC Calculation(Bazett) 549 ms P [place] 83 degrees R [place] -75 degrees T [place] 89 degrees Sinus tachycardia Left axis deviation [...] 394 ms QTC Calculation(Bazett) 510 ms P [place] 80 degrees R [place] -68 degrees T [place] 98 degrees Sinus tachycardia Left axis deviation [...] 350 ms QTC Calculation(Bazett) 477 ms P [place] 73 degrees R [place] -62 degrees T [place] 97 degrees Sinus tachycardia Left axis deviation [...] 406 ms QTC Calculation(Bazett) 606 ms P [place] 31 degrees R [place] -64 degrees T [place] 93 degrees Sinus tachycardia with frequent Premature [...] procedure are in the results section. after 02/12/2018 Results RHYTHM STRIP - SCAN (01/05/2019 3:41 [...] (H)Comment: TESTED AT 70 - 110 mg/dL [address] [address] Specimen Blood Performing Organization Address City/[facility]/Zipcode Phone Number [address] [address] [place] Magnesium (01/01/2019 7:58 AM CDT)Only the most recent of39 resultswithin the time period is included. Magnesium 2.0 1.6 - 2.6 mg/dL [facility] Specimen Blood Performing Organization Address City/[facility]/Zipcode Phone Number [address] [address] CENTER Basic Metabolic Panel (01/01/2019 7:58 AM CDT)Only the most recent of30 resultswithin the time period is included. Sodium 142 136 - 145 meq/L [facility] Potassium 4.6 3.5 - 5.1 meq/L [facility] Chloride 102 98 - 107 meq/L [facility] CO2 33 (H) 22 - 29 meq/L [facility] BUN 21 7 - 21 mg/dL [facility] Creatinine 1.30 (H) 0.57 - 1.25 mg/dL [facility] Glucose 126 (H) 70 - 105 mg/dL [facility] Calcium 9.3 8.4 - 10.2 mg/dL [facility] EGFR 54Comment: ESTIMATED GFR IS mL/min/1.73 sq m [facility] NOT ACCURATE CREATININE [facility] CLEARANCE IN PREDICTING GLOMERULAR FILTRATION RATE. ESTIMATED GFR IS NOT APPLICABLE FOR DIALYSIS PATIENTS. Specimen Blood Performing Organization Address City/[facility] Services[facility] Phone Number [address] [address] [phone] CENTER B-type Natriuretic Factor (BNP) (01/01/2019 4:51 AM CDT)Only the most recent of6 resultswithin the time period is included. BNP 1,150 (H) 0 - 100 pg/mL [facility] Specimen Blood Performing Organization Address City/[facility] Services[facility] Phone Number [address] [address] CENTER CBC (Hemogram only) (12/30/2018 6:06 AM CDT)Only the most recent of17 resultswithin the time period is included. WBC 6.6 3.5 - 10.5 K/L [facility] RBC 3.42 (L) 4.63 - 6.08 M/L [facility] Hemoglobin 8.8 (L) 13.7 - 17.5 GM/DL [facility] Hematocrit 29.2 (L) 40.1 - 51.0 % [facility] MCV 85.4 79.0 - 92.2 fL [facility] MCH 25.7 25.7 - 32.2 pg [facility] MCHC 30.1 (L) 32.3 - 36.5 GM/DL [facility] RDW 14.9 (H) 11.6 - 14.4 % [facility] Platelets 233 150 - 450 K/CU MM [facility] MPV 10.6 9.4 - 12.4 fL [facility] nRBC 0 0 - 0 /100 WBC [facility] Specimen Blood Performing Organization Address City/State/Zipcode Phone Number [facility] [address] [place] [address] [phone] CENTER XR chest 1 view portable / bedside (12/26/2018 4:20 PM CDT)Only the most recent of16 resultswithin the time period is included. Specimen Narrative Performed At FINAL REPORT [facility] Chest x-ray Clinical History: s/p acb [...] MD Report Verified Date/Time:12/26/2018 16:41:43 Reading Location: [facility] Radiology Reading Room Procedure Note Interface, External [...] Report Verified Date/Time: 12/26/2018 16:41:43 Reading Location: [facility] Radiology Reading Room Performing Organization Address City/[facility] Services[facility] Phone Number GE RIS Calcium, Ionized (12/25/2018 2:35 AM CDT)Only the most recent of16 resultswithin the time period is included. Calcium, Ion 1.11 (L) 1.12 - 1.27 mmol/L [facility] pH, Blood 7.45 [facility] Specimen Blood Performing Organization Address City/[facility]/Zipcode Phone Number [facility] [address] [place] [address] CENTER CBC with platelet count + automated diff (12/25/2018 2:35 AM CDT)Only the most recent of5 resultswithin the time period is included. WBC 8.0 3.5 - 10.5 K/L [facility] RBC 3.28 (L) 4.63 - 6.08 M/L [facility] Hemoglobin 8.5 (L) 13.7 - 17.5 GM/DL [facility] Hematocrit 27.4 (L) 40.1 - 51.0 % [facility] MCV 83.5 79.0 - 92.2 fL [facility] MCH 25.9 25.7 - 32.2 pg [facility] MCHC 31.0 (L) 32.3 - 36.5 GM/DL [facility] RDW 14.6 (H) 11.6 - 14.4 % [facility] Platelets 267 150 - 450 K/CU MM [facility] MPV 10.9 9.4 - 12.4 fL [facility] nRBC 0 0 - 0 /100 WBC [facility] % Neutros 73 % [facility] % Lymphs 15 % [facility] % Monos 9 % [facility] % Eos 2 % [facility] % Baso 1 % [facility] # Neutros 5.81 (H) 1.78 - 5.38 K/L [facility] # Lymphs 1.20 (L) 1.32 - 3.57 K/L [facility] # Monos 0.69 0.30 - 0.82 K/L [facility] # Eos 0.16 0.04 - 0.54 K/L [facility] # Baso 0.05 0.01 - 0.08 K/L [facility] Immature Granulocytes-Relative 1 0 - 1 % [facility] Specimen Blood Performing Organization Address City/State/Zipcode Phone Number [facility] [address] [place] [address] CENTER aPTT (12/25/2018 2:35 AM CDT)Only the most recent of21 resultswithin the time period is included. PTT 38.2 (H) 22.5 - 36.0 seconds [facility] Specimen Blood Performing Organization Address City/[facility]/Zipcode Phone Number [address] [address] CENTER Potassium (12/24/2018 6:42 PM CDT)Only the most recent of9 resultswithin the time period is included. Potassium 4.5 3.5 - 5.1 meq/L [facility] Specimen Blood Performing Organization Address [facility] Services[facility] Phone Number [address] [address] [phone] CENTER Phosphorus (12/24/2018 3:58 AM CDT)Only the most recent of18 resultswithin the time period is included. Phosphorus 4.0Comment: Specimen slightly 2.3 - 4.7 mg/dL [facility] hemolyzed [facility] Specimen Blood Performing Organization Address [facility] Servicescomi Phone Number [address] [address] [place] Sputum Culture + Gram Stain (12/23/2018 10:13 PM CDT)Only the most recent of3 resultswithin the time period is included. Result 4+ Normal respiratory [facility] Gram Stain Result <1+ White blood cells seen [facility] Gram Stain Result 0-5 epithelial cells [facility] Gram Stain Result <1+ yeast [facility] Specimen Sputum - Expectorated Performing Organization Address [facility] Phone Number [address] [address] [phone] [place] Lactic acid, venous (12/23/2018 7:44 PM CDT)Only the most recent of3 resultswithin the time period is included. Lactate, Venous 0.9Comment: Specimen 0.5 - 2.2 mmol/L [facility] slightly hemolyzed [facility] Specimen Blood Performing Organization Address [facility] Services[facility] Phone Number [address] [address] CENTER Blood culture (12/23/2018 5:27 PM CDT)Only the most recent of3 resultswithin the time period is included. Result No growth in 5 days [facility] Specimen Blood Performing Organization Address City/[facility] Services[facility] Phone Number [address] [address] CENTER Procalcitonin (12/23/2018 5:26 PM CDT)Only the most recent of2 resultswithin the time period is included. Procalcitonin <0.05 <0.05 ng/mL [facility] Specimen Blood Narrative Performed At SEPSIS RISK (ng/mL) [facility] Low:0.05-0.50 Intermediate: 0.51-2.00 High: >=2.01 Performing Organization Address [facility] Services[facility] Phone Number [address] [address] [phone] [place] Hemoglobin and hematocrit (12/23/2018 5:26 PM CDT) Hemoglobin 8.0 (L) 13.7 - 17.5 GM/DL [facility] Hematocrit 25.8 (L) 40.1 - 51.0 % [facility] Specimen Blood Performing Organization Address City/[facility] Services[facility] Phone Number [address] [address] [phone] [place] Hepatic function panel (12/23/2018 5:25 PM CDT) Protein, Total 5.9 (L) 6.0 - 8.3 gm/dL [facility] Albumin 3.2 (L) 3.5 - 5.0 g/dL [facility] Total Bilirubin 0.3 0.2 - 1.2 mg/dL [facility] Bilirubin, Direct 0.2 0.1 - 0.5 mg/dL [facility] Alkaline Phosphatase 50 40 - 150 U/L [facility] AST 13 5 - 34 U/L [facility] ALT 24 6 - 55 U/L [facility] Specimen Blood Performing Organization Address [facility] Services[facility] Phone Number [address] [address] CENTER ECG 12 lead (12/21/2018 8:55 AM CDT)Only the most recent of7 resultswithin the time period is included. Specimen Narrative Performed At Ventricular Rate 136 BPM GE MUSE Atrial Rate 136 BPM P-R Interval 134 ms QRS Duration 142 ms Q-T Interval 332 ms QTC Calculation(Bazett) 499 ms P [place] 85 degrees R [place] -71 degrees T [place] 103 degrees Most probablySinus tachycardia Left anterior [...] 332 ms QTC Calculation(Bazett) 499 ms P [place] 85 degrees R [place] -71 degrees T [place] 103 degrees Most probably Sinus tachycardia Left anterior fascicular block Right bundle branch block Inferior infarct , age undetermined Mild ST elelvation inferior leads + ST depression and T wave inversion in the anterolateral leads: STEMI? aneurysm? Iaschemia? Prolonged QT Abnormal ECG 16 DEC 2018 No significant changes Confirmed by MD GROSS YOCHAI ([id number]) on 12/22/2018 6:28:34 AM Performing Organization Address [facility] Phone Number [employer] ECHOCARDIOGRAM REPORT - SCAN (12/20/2018 9:20 PM CDT) Narrative Performed At Potassium-Stat Lab (12/20/2018 3:35 AM CDT)Only the most recent of9 resultswithin the time period is included. Potassium 3.6 3.6 - 5.5 meq/L [facility] Specimen Blood, Arterial Performing Organization Address [facility] Servicescode Phone Number [facility] [address] [address] CENTER 2D Echo W/Doppler(CW/PW/Color) (12/19/2018 6:14 PM CDT) Ejection Fraction [facility] ECHO [facility] Specimen Narrative Performed At Transthoracic Echocardiography Report (TTE) [facility] Demographics Patient Name TERESA,Date of Study 12/19/[address] [id number] GenderMale Visit Number [id number] Unknown [id number] Room Number C824 Number Date of Birth1945Referring Physician Alecia Rodriguez Age73 year(s)Machine Sole Leveler Lidia Desai [facility] AnalystIzofidel MuñizpreRey Evans, Physician MD Angie [...] 12/19/[address] Gender Male Visit Number [id number] Race Unknown Room Number C824 Number Date of 1945 Referring Physician Alecia Rodriguez Age 73 year(s) Machine Sole Leveler Lidia Desai CS [employer] Cutter Operator Nery Núñez Interpreting Jaron Evans, Physician MD Angei Mcnally MD Procedure Type of Study TTE [...] TR Gradient: 25.23 mmHg Performing Organization Address City/[facility] Services[facility] Phone Number [facility] ECHO HEART[facility] Blood gas, arterial (12/18/2018 7:23 AM CDT)Only the most recent of14 resultswithin the time period is included. pH, Arterial 7.46 (H) 7.35 - 7.45 [facility] pCO2, Arterial 37 35 - 45 mmHg [facility] pO2, Arterial 69 (L) 80 - 90 mmHg [facility] O2 Sat, Arterial 94.8 (L) 96.0 - 97.0 % [facility] HCO3, Arterial 26 21 - 29 mmol/L [facility] Base Excess, Arterial 1.8 -2.0 - 3.0 mmol/L [facility] Patient Temperature 37.0 C [facility] FIO2 40.0 % [facility] Specimen Blood, Arterial Performing Organization Address [facility] Phone Number [address] [address] [phone] [place] PULMONARY FUNCTION - SCAN (12/17/2018 8:50 AM CDT) Narrative Performed At Oxygen saturation, measured (12/17/2018 3:09 AM CDT)Only the most recent of7 resultswithin the time period is included. O2 Saturation (Measured) 58.0 % [facility] Specimen Blood Performing Organization Address City/[facility] Services[facility] Phone Number [facility] [address] [place] [address] CENTER Sodium Na-Stat Lab (12/16/2018 9:37 PM CDT)Only the most recent of8 resultswithin the time period is included. Sodium 135 135 - 148 meq/L [facility] Specimen Blood, Arterial Performing Organization Address [facility] Services[facility] Phone Number [address] [address] [phone] [place] Glucose-Stat Lab (12/16/2018 9:37 PM CDT)Only the most recent of8 resultswithin the time period is included. Glucose 220 (H) 70 - 110 mg/dL [facility] Specimen Blood, Arterial Performing Organization Address [facility] Services[facility] Phone Number [address] [address] [phone] [place] HGB/HCT (H&H)-Stat Lab (12/16/2018 9:37 PM CDT)Only the most recent of8 resultswithin the time period is included. Hemoglobin 11.4 (L) 13.0 - 16.8 g/dL [facility] Hematocrit 34.0 (L) 40.0 - 50.0 % [facility] Specimen Blood, Arterial Performing Organization Address [facility] Phone Number [address] [address] [place] TRANSFUSION SERVICE REPORT - SCAN (12/16/2018 5:54 PM CDT) Narrative Performed At Lactic Acid, Arterial (12/16/2018 7:13 AM CDT)Only the most recent of4 resultswithin the time period is included. Lactate, Art 0.9Comment: Specimen 0.5 - 2.2 mmol/L [facility] slightly hemolyzed [facility] Specimen Blood, Arterial Performing Organization Address [facility] Services[facility] Phone Number [address] [address] [phone] [place] Glucose-STAT (12/15/2018 11:01 PM CDT) Glucose 131 (H) 70 - 105 mg/dL [facility] Specimen Blood Performing Organization Address City/[facility]/Zipcode Phone Number [facility] [address] [place] [address] CENTER PERIPHERAL VASCULAR REPORT - SCAN (12/15/2018 9:10 PM CDT) Narrative Performed At Prepare RBC (12/15/2018 2:33 PM CDT) CROSSMATCH COMPATIBLE SAFETRACE TX Unit ABO O Pos SAFETRACE TX UNIT NUMBER [id number] SAFETRACE TX Status RETURNED FROM ISSUE SAFETRACE TX Blood Bank Product RED BLOOD CELLS SAFETRACE TX PRODUCT CODE [id number] SAFETRACE TX CROSSMATCH COMPATIBLE SAFETRACE TX Unit ABO O Pos SAFETRACE TX UNIT NUMBER [id number] SAFETRACE TX Status RETURNED FROM ISSUE SAFETRACE TX Blood Bank Product RED BLOOD CELLS SAFETRACE TX PRODUCT CODE [id number] SAFETRACE TX CROSSMATCH COMPATIBLE SAFETRACE TX Unit ABO O Pos SAFETRACE TX UNIT NUMBER [id number] SAFETRACE TX Status RETURNED FROM ISSUE SAFETRACE TX Blood Bank Product RED BLOOD CELLS SAFETRACE TX PRODUCT CODE [id number] SAFETRACE TX CROSSMATCH COMPATIBLE SAFETRACE TX Unit ABO O Pos SAFETRACE TX UNIT NUMBER [id number] SAFETRACE TX Status RETURNED FROM ISSUE SAFETRACE TX Blood Bank Product RED BLOOD CELLS SAFETRACE TX PRODUCT CODE [id number] SAFETRACE TX Performing Organization Address City/[facility]/Zipcode Phone Number SAFETRACE [place] Manual Differential (12/15/2018 2:05 PM CDT) % Neutros 93 % [facility] % Lymphs 2 % [facility] % Monos 2 % [facility] % Myelo 1 (H) 0 - 0 % [facility] % Bands 2 0 - 10 % [facility] # Neutros 20.93 (H) 1.78 - 5.38 K/ul [facility] # Lymphs 0.45 (L) 1.32 - 3.57 K/ul [facility] # Monos 0.45 0.30 - 0.82 K/uL [facility] # Myelo 0.23 (H) 0.00 - 0.00 K/uL [facility] # Bands 0.45 0.00 - 0.80 K/uL [facility] Total Counted 100 [facility] WBC Morphology Normal [facility] Platelet Morphology Normal [facility] Anisocytosis 2+ moderate [facility] Microcytes 2+ moderate [facility] Poikilocytes 1+ few [facility] Elliptocytes 1+ few [facility] Artifact Present [facility] Platelet Conc Adequate [facility] Specimen Blood Narrative Performed At Received comment: [facility] User comments: Slide comments: Performing Organization Address City/[facility]/Zipcode Phone Number [address] [address] [phone] [place] POC ACTIVATED CLOTTING TIME (12/15/2018 11:54 AM CDT)Only the most recent of5 resultswithin the time period is included. Activated Clotting Time 114Comment: TESTED AT sec [address] [address] Specimen Blood Performing Organization Address City/[facility]/Zipcode Phone Number [facility] [address] [place] [address] [phone] [place] Prothrombin time/INR (12/15/2018 11:49 AM CDT) Protime 17.7 (H) 11.9 - 14.2 seconds [facility] INR 1.5 <=5.9 [facility] Specimen Blood Narrative Performed At Effective 12/03/2018: PT Reference Range [facility] Change New: 11.9-14.2Previous: 11.7-14.7 RECOMMENDED COUMADIN/WARFARIN INR THERAPY RANGES STANDARD DOSE: 2.0-3.0Includes: PROPHYLAXIS for venous thrombosis, systemic embolization; TREATMENT for venous thrombosis and/or pulmonary embolus. HIGH RISK: Target INR is 2.5-3.5 for patients wiht mechanical heart valves. Performing Organization Address [facility] Services[facility] Phone Number [address] [address] CENTER Fibrinogen (12/15/2018 11:49 AM CDT) Fibrinogen 354 225 - 434 mg/dl [facility] Specimen Blood Performing Organization Address [facility] Phone Number [address] [address] [place] Platelet count (12/15/2018 11:49 AM CDT) Platelets 206 150 - 450 K/CU MM [facility] Specimen Blood Performing Organization Address [facility] Phone Number [address] [address] [phone] CENTER WAYNE (12/15/2018 9:13 AM CDT) Narrative [...] mitral regurgitation, no mitral stenosis [place]: no JSUTIN thrombus (excluded by velocity >40), normal size [...] Carotid doppler bilateral (12/15/2018 5:21 AM CDT) [facility] ECHO [facility] Specimen Impressions Performed At Right Impression [facility] ECHO [facility] 1. There is <50% diameter reduction (approximately [...] Performed At LAB - Carotid Duplex Study [facility] Demographics Patient NameHEATHER MOORE Date of Study 12/15/2018 R Age 73 Visit [id number] GenderMale Date of 1945 Referring Viktoriya Bond,Room Number SCPR Physician LEYDI Machine Sole Leveler Uriel Sullivan Physician Procedure Type of Study: Cerebral: Carotid, CAROTID DOPPLER, BILATERAL. Indications for Study:Pre-op evaluation. Patient Status:Routine. Study Location:Portable. Technical Quality:Adequate visualization. Risk Factors History of Disease + +----+ + !Diagnosis!Date!Comments ! + +----+ + !History/Risk !!PVD, CHF, CAD, GA, COPD, DM, PAD, HTN, HLD, H/o! !Factors: !!Bladder Cancer, LE Arterial Stents ! + +----+ + Procedure Note Interface, External Ris In - 12/15/2018 12:03 PM CDT [facility] - Carotid Duplex Study Demographics Patient Name HEATHER MOORE Date of Study 12/15/2018 R Age 73 Visit Number [id number] Gender Male Accession Number [id number] Date of 1945 Referring Viktoriya Bond, Room Number SCPR Physician LEYDI Machine Sole Leveler Uriel Eid Interpreting Juanita Sullivan, Physician Procedure Type of Study: Cerebral: Carotid, CAROTID DOPPLER, BILATERAL. Indications for Study:Pre-op evaluation. Patient Status:Routine. Study Location:Portable. Technical Quality:Adequate visualization. Risk Factors History of Disease + +----+ + !Diagnosis !Date!Comments ! + +----+ + !History/Risk ! !PVD, CHF, CAD, GA, COPD, DM, PAD, HTN, HLD, H/o ! [...] Additional Measurements:ICAPSV/CCAPSV 1.05.ICAEDV/CCAEDV 2.83. Performing Organization Address City/[facility]/Zipcode Phone Number [facility] MKCKESSON CPACS ABORH, manual (12/15/2018 1:32 AM CDT) ABO Grouping O [facility] Rh Factor POS [facility] Specimen Blood Performing Organization Address [facility]/Zipcode Phone Number [facility] [address] [place] [address] Type and screen, automated (12/15/2018 1:11 AM CDT) ABO/RH AUTOMATED (BEAKER) O POSITIVE [facility] Ab Scrn NEGATIVE [facility] Specimen Blood Performing Organization Address [facility]/Zipcode Phone Number [facility] [address] [place], [place] [phone] NM PET Cardiac Viability (12/11/2018 5:15 PM CDT) Specimen Narrative Performed At FINAL REPORT [employer] PROCEDURE: MYOCARDIAL METABOLISM PET IMAGING with Rest MYOCARDIAL PERFUSION PET IMAGING\\XA9\\ CPT CODE:89727, 46365 INDICATION: CAD, preoperative viability assessment for ACB [...] MD Report Verified Date/Time:12/11/2018 18:10:46 Reading Location: [address] Reading Room Procedure Note Interface, External Ris In - 12/11/2018 6:13 PM CDT FINAL REPORT PROCEDURE: MYOCARDIAL METABOLISM PET IMAGING with Rest MYOCARDIAL PERFUSION PET IMAGING\\XA9\\ CPT CODE: 08364, 30692 INDICATION: CAD, preoperative viability assessment for ACB [...] Report Verified Date/Time: 12/11/2018 18:10:46 Reading Location: [address] Reading Room Performing Organization Address City/State/Zipcode Phone Number [employer] Pulmonary Funct Lab bedside spirometry (12/11/2018 11:24 AM CDT) Narrative Performed At Palma Garduno RRT, SCALER PACKER 12/11/2018 11:27 AM [facility] PFT CHARTING REPORT Infection Control/Hand Hygiene procedures followed throughout the encounter with patient: Yes Patient Identification Method: Patient name verified on armband, and Medical record on armband, Is the order complete?: Yes Account ID#: [id number] Patient Name: Heather Moore Birthdate: 1945 Age: [...] CDT) Specimen Narrative Performed At FINAL REPORT [employer] INDICATION: Hypoxemia and shortness of breath. COMPARISON: [...] MD Report Verified Date/Time:12/11/2018 11:34:47 Reading Location: [facility] Diagnostic Imaging Reading Room - [place] [id number] Procedure Note Interface, External Ris In [...] Report Verified Date/Time: 12/11/2018 11:34:47 Reading Location: [facility] Diagnostic Imaging Reading Room - [place] [address] Performing Organization Address City/State/Zipcode Phone Number [facility]IS Troponin I (12/11/2018 5:05 AM CDT)Only the most recent of4 resultswithin the time period is included. Troponin I 1.07 (HH) 0.00 - 0.03 ng/mL [facility] Specimen Blood Narrative Performed At Troponin I (TnI) levels must be interpreted [facility] in the context of the presenting symptoms [...] tachyarrhythmia. Performing Organization Address City/State/Zipcode Phone Number [address] [phone] [place] Vancomycin level, trough (12/10/2018 12:30 PM CDT) Vancomycin Tr 16.8 10.0 - 20.0 ug/mL [facility] Specimen Blood Performing Organization Address [facility] Servicescode Phone Number [address] [address] [place] ECHOCARDIOGRAM REPORT - SCAN (12/09/2018 9:02 PM CDT) Narrative Performed At Urinalysis w/Microscopic + Reflex to Culture (12/09/2018 10:39 AM CDT) Color, UA Yellow [facility] Clarity, UA Clear [facility] Specific [place], UA 1.009 1.001 - 1.035 [facility] pH, UA 5.0 5.0 - 8.0 [facility] Protein, UA 20 mg/dL (A) Negative [facility] Glucose, UA Negative Negative [facility] Ketones, UA Negative Negative [facility] Bilirubin, UA Negative Negative [facility] Blood, UA Moderate (A) Negative [facility] Nitrite, UA Negative Negative [facility] Leukocytes, UA Moderate (A) Negative [facility] Urobilinogen, UA 0.2 0.2 - 1.0 mg/dL [facility] RBC, UA 27 /HPF [facility] WBC, UA 20 /HPF [facility] Mucus Rare [facility] Squam Epithel, UA <1 /HPF [facility] Specimen Source [facility] Specimen Urine Performing Organization Address City/[facility]/[place] [address] [place] Urine culture (12/09/2018 10:39 AM CDT) Result No growth [facility] Specimen Urine Performing Organization Address [facility] Servicescomi [place] [address] [place] Hemoglobin A1c (12/09/2018 10:39 AM CDT) Hemoglobin A1C 5.7 4.3 - 6.1 % [facility] Specimen Blood Performing Organization Address [facility] Servicescom[facility] [place] [address] [place] 2D Echo W/Doppler(CW/PW/Color) (12/09/2018 1:53 AM CDT) Ejection Fraction [facility] Specimen Narrative Performed At Transthoracic Echocardiography Report (TTE) [facility] Demographics Patient NameBLANCHARD,Date of Study12/09/2018 [address] Male Visit [id number] Unknown Room [id number] Number Date of 1945Referring Kirit Serna PhysicianBlyuliet Park NP Age 73 year(s)Machine Sole Leveler Angie Blakely RDCS, RVT Straw Hat Brim Cutter Operator Elicia Rutherford, Interpreting Roly Colon MD Procedure [...] 12/09/2018 HE[address] Gender Male Visit Number [id number] Race Unknown Room Number [id number] Number Date of 1945 Referring Kirit Serna Physician Omero Park NP Age 73 year(s) Machine Sole Leveler Angie Blakely [facility], RVT Straw Hat Brim Cutter Operator Elicia Rutherford, Interpreting Jaron Evans [facility] Physician Procedure Type of Study TTE [...] LVOT CI: 3.8 l/min/m^2 Performing Organization Address City/[facility] Servicescode Phone Number [facility] Comprehensive metabolic panel (12/09/2018 1:42 AM CDT) Protein, Total 6.9Comment: Specimen 6.0 - 8.3 gm/dL [facility] slightly hemolyzed [facility] Albumin 3.4 (L)Comment: Specimen 3.5 - 5.0 g/dL [facility] slightly hemolyzed [facility] Alkaline Phosphatase 66 40 - 150 U/L [facility] Total Bilirubin 0.5Comment: Specimen 0.2 - 1.2 mg/dL [facility] slightly hemolyzed [facility] Sodium 138 136 - 145 meq/L [facility] Potassium 4.4Comment: Specimen 3.5 - 5.1 meq/L [facility] slightly hemolyzed [facility] Chloride 108 (H) 98 - 107 meq/L [facility] CO2 20 (L) 22 - 29 meq/L [facility] BUN 17 7 - 21 mg/dL [facility] Creatinine 1.20Comment: Specimen 0.57 - 1.25 mg/dL [facility] slightly hemolyzed [facility] Glucose 135 (H) 70 - 105 mg/dL [facility] Calcium 8.5 8.4 - 10.2 mg/dL [facility] AST 13Comment: Specimen 5 - 34 U/L [facility] slightly hemolyzed [facility] ALT 11Comment: Specimen 6 - 55 U/L [facility] slightly hemolyzed [facility] EGFR 60Comment: ESTIMATED GFR mL/min/1.73 sq m [facility] IS NOT ACCURATE [facility] CREATININE CLEARANCE IN PREDICTING GLOMERULAR FILTRATION RATE. ESTIMATED GFR IS NOT APPLICABLE FOR DIALYSIS PATIENTS. Specimen Blood Performing Organization Address City/[facility] Servicescode Phone Number [facility] [address] [place] [address] CENTER Theophylline level (12/08/2018 6:48 PM CDT) Theophylline Lvl 10.1 10.0 - 20.0 ug/mL [facility] Specimen Blood Performing Organization Address City/State/Zipcode Phone Number [facility] [address] [place] [address] [place] Respiratory Panel [facility] (12/08/2018 5:57 PM CDT) Human Metapneumovirus Not detected Not detected, [facility] Rhinovirus Not detected Not detected, [facility] Equivocal [facility] Influenza A Not detected Not detected, [facility] INFLUENZA A (NO SUBTYPE) Not detected, [facility] [employer] [facility] Influenza A subtype H1 Not detected, [facility] Influenza A Subtype H3 Not detected, [facility] Influenza A Subtype H1-2009 Not detected, [facility] Influenza B Not detected Not detected, [facility] Respiratory Syncytial Virus Not detected Not detected, [facility] Parainfluenza Virus 1 Not detected Not detected, [facility] Parainfluenza Virus 2 Not detected Not detected, [facility] Parainfluenza virus 3 Not detected Not detected, [facility] Parainfluenza Virus 4 Not detected Not detected, [facility] Adenovirus Not detected Not detected, [facility] Coronavirus 229E Not detected Not detected, [facility] Coronavirus HKU1 Not detected Not detected, [facility] Coronavirus NL63 Not detected Not detected, [facility] Coronavirus OC43 Not detected Not detected, [facility] Bordetella Pertussis Not detected Not detected, [facility] [employer] [facility] Chlamydophila Pneumoniae Not detected Not detected, [facility] Mycoplasma Pneumoniae Not detected Not detected, [facility] Specimen Nasopharyngeal Narrative Performed At Other viruses and bacteria not targeted by [facility] this PCR panel cannot be excluded; therefore clinical correlation and follow up of serology, culture results, and other molecular studies is required. The results are not intended to be used as the sole means for clinical diagnosis or patient management decisions. This sample was tested at the [facility] Molecular Diagnostics Laboratory using the [employer] Respiratory Panel. It is FDA cleared and has been verified and approved by the [facility] Molecular Diagnostics Laboratory for clinical use on nasopharyngeal swab specimens. The performance of the [employer] RP has not been established in individuals who received influenza vaccine.Recent administration of a nasal influenza vaccine may cause false positive results for Influenza A and/or Influenza B. Performing Organization Address City/[facility] Servicescode Phone Number [address] [phone] [place] Legionella antigen, urine (12/08/2018 5:53 PM CDT) Legionella Urine Antigen Negative - see [facility] commentComment: Negative [facility] for L. pneumophila serogroup 1 antigen, suggesting no recent or current infection with this serogroup. Legionellosis cannot be ruled out since other serogroups and species may cause disease. Specimen Urine Performing Organization Address [facility] Servicescode Phone Number [address] [address] [place] Strep pneumoniae antigen (12/08/2018 5:49 PM CDT) Strep pneumoniae Presumptive negative Presumptive negative [facility] Antigen for pneumococcal for pneumococcal [facility] pneumonia - see comment pneumonia - see CENTER comment, Presumptive negative for pneumococcal meningitis - see comment Specimen Urine Narrative Performed At Presumptive negative for pneumococcal [facility] pneumonia, suggesting no current or recent pneumococcal infection. Infection due to S. pneumoniae cannot be ruled out since the antigen present in the sample may be below the detection limit of the test. Performing Organization Address City/State/Zipcode Phone Number [facility] [address] [place], [place] [phone] CENTER BUN and Creatinine (12/08/2018 5:46 PM CDT) BUN 18 7 - 21 mg/dL [facility] Creatinine 1.30 (H) 0.57 - 1.25 mg/dL [facility] EGFR 54Comment: ESTIMATED GFR IS mL/min/1.73 sq m [facility] NOT ACCURATE [facility] CLEARANCE IN PREDICTING GLOMERULAR FILTRATION RATE. ESTIMATED GFR IS NOT APPLICABLE FOR DIALYSIS PATIENTS. Specimen Blood Performing Organization Address City/State/Zipcode Phone Number [facility] [address] [place], [place] [phone] CENTER after 02/12/2018 Insurance Payer Benefit Plan / Group Subscriber ID Type Phone Address [employer] - MEDICARE AARP/MEDICARE COMPLETE xxxxxxxxx [facility] ([place]) [address] [address] Advance Directives For more information, please contact:[address] [phone] Code Status Date Activated Date Inactivated Comments Full Code 12/15/2018 2:01 PM 01/01/2019 4:41 PM This code status was determined by: Patient Full Code 12/08/2018 4:57 PM 12/15/2018 2:01 PM This code status was determined by: Patient
--- OUTSIDE RECORDS SUMMARY | 2019-02-13 17:29 | XMS REPORT ---
:1945 [facility] Address [address] [place] [address] Care Team Providers Name Role Phone FERNANDO [...] (BEAKER) (test 165 mg/dL 70-110 TESTED AT [facility] [address] [facility] kste=[id number]) [facility] [address] [id number] 08:41:00 Test Item Value Reference Range Comments MAGNESIUM (BEAKER) (test hujm=403) 2.0 mg/dL 1.6-2.6 BASIC METABOLIC [id number] 08:41:00 Test Item Value Reference Range Comments SODIUM (BEAKER) (test 142 meq/L 136-145 crtm=012) POTASSIUM (BEAKER) (test 4.6 meq/L 3.5-5.1 ymyu=212) CHLORIDE (BEAKER) (test 102 meq/L 98-107 vjfb=928) CO2 (BEAKER) (test 33 meq/L 22-29 fzmv=601) BLOOD UREA NITROGEN 21 mg/dL 7-21 (BEAKER) (test ghdk=355) CREATININE (BEAKER) (test 1.30 mg/dL 0.57-1.25 sjqh=012) GLUCOSE RANDOM (BEAKER) 126 mg/dL 70-105 (test lpnc=315) CALCIUM (BEAKER) (test 9.3 mg/dL 8.4-10.2 jtgo=125) EGFR (BEAKER) (test 54 mL/min/1.73 sq m ESTIMATED GFR IS NOT bcju=9085) ACCURATE CREATININE CLEARANCE IN PREDICTING GLOMERULAR FILTRATION RATE. ESTIMATED GFR IS NOT APPLICABLE FOR DIALYSIS PATIENTS. POCT-GLUCOSE [id number] 08:04:00 Test Item Value Reference Range Comments POC-GLUCOSE METER (BEAKER) 103 mg/dL 70-110 TESTED AT [address] (test zsti=2685) [place] [address] B-TYPE NATRIURETIC FACTOR (BNP)2019-01-01 05:26:00 Test Item Value Reference Range Comments B-TYPE NATRIURETIC PEPTIDE (BEAKER) (test 1150 pg/mL 0-100 xmwx=828) POCT-GLUCOSE [id number] 21:02:00 Test Item Value Reference Range Comments POC-GLUCOSE METER (BEAKER) 180 mg/dL 70-110 TESTED AT [address] (test iafu=2427) [place] [address] POCT-GLUCOSE [id number] 17:02:00 Test Item Value Reference Range Comments POC-GLUCOSE METER (BEAKER) 129 mg/dL 70-110 TESTED AT [address] (test llrt=7242) [place] [address] POCT-GLUCOSE [id number] 12:26:00 Test Item Value Reference Range Comments POC-GLUCOSE METER (BEAKER) 127 mg/dL 70-110 TESTED AT [address] (test dtlv=0336) [place] [id number] POCT-GLUCOSE [id number] 09:06:00 Test Item Value Reference Range Comments POC-GLUCOSE METER (BEAKER) 136 mg/dL 70-110 TESTED AT [address] (test ebnl=4190) [place] [id number] [id number] 05:33:00 Test Item Value Reference Range Comments MAGNESIUM (BEAKER) (test tasf=273) 1.9 mg/dL 1.6-2.6 BASIC METABOLIC [id number] 05:33:00 Test Item Value Reference Range Comments SODIUM (BEAKER) (test 140 meq/L 136-145 ccpl=960) POTASSIUM (BEAKER) (test 4.2 meq/L 3.5-5.1 toge=676) CHLORIDE (BEAKER) (test 103 meq/L 98-107 zrhp=502) CO2 (BEAKER) (test 31 meq/L 22-29 apdq=618) BLOOD UREA NITROGEN 23 mg/dL 7-21 (BEAKER) (test ahvf=307) CREATININE (BEAKER) (test 1.32 mg/dL 0.57-1.25 tyvf=770) GLUCOSE RANDOM (BEAKER) 109 mg/dL 70-105 (test subq=694) CALCIUM (BEAKER) (test 8.7 mg/dL 8.4-10.2 cnqs=365) EGFR (BEAKER) (test 53 mL/min/1.73 sq m ESTIMATED GFR IS NOT qeha=0931) ACCURATE CREATININE CLEARANCE IN PREDICTING GLOMERULAR FILTRATION RATE. ESTIMATED GFR IS NOT APPLICABLE FOR DIALYSIS PATIENTS. POCT-GLUCOSE [id number] 21:21:00 Test Item Value Reference Range Comments POC-GLUCOSE METER (BEAKER) 125 mg/dL 70-110 TESTED AT [address] (test yfct=8903) [place] [id number] POCT-GLUCOSE [id number] 17:10:00 Test Item Value Reference Range Comments POC-GLUCOSE METER (BEAKER) 126 mg/dL 70-110 TESTED AT [address] (test dqud=3563) [place] [address] POCT-GLUCOSE [id number] 12:02:00 Test Item Value Reference Range Comments POC-GLUCOSE METER (BEAKER) 117 mg/dL 70-110 TESTED AT [address] (test fxec=0478) [place] [address] POCT-GLUCOSE [id number] 08:10:00 Test Item Value Reference Range Comments POC-GLUCOSE METER (BEAKER) 117 mg/dL 70-110 TESTED AT [address] (test wltp=7277) [place] [address] [id number] 07:09:00 Test Item Value Reference Range Comments MAGNESIUM (BEAKER) (test qwlt=730) 1.8 mg/dL 1.6-2.6 BASIC METABOLIC [id number] 07:09:00 Test Item Value Reference Range Comments SODIUM (BEAKER) (test 141 meq/L 136-145 jnsz=930) POTASSIUM (BEAKER) (test 4.2 meq/L 3.5-5.1 toap=938) CHLORIDE (BEAKER) (test 103 meq/L 98-107 emho=140) CO2 (BEAKER) (test 32 meq/L 22-29 lpzr=515) BLOOD UREA NITROGEN 20 mg/dL 7-21 (BEAKER) (test nbou=846) CREATININE (BEAKER) (test 1.17 mg/dL 0.57-1.25 pqup=950) GLUCOSE RANDOM (BEAKER) 97 mg/dL 70-105 (test lvrk=523) CALCIUM (BEAKER) (test 8.7 mg/dL 8.4-10.2 sxwo=422) EGFR (BEAKER) (test 61 mL/min/1.73 sq m ESTIMATED GFR IS NOT jlws=3885) ACCURATE CREATININE CLEARANCE IN PREDICTING GLOMERULAR FILTRATION RATE. ESTIMATED GFR IS NOT APPLICABLE FOR DIALYSIS PATIENTS. CBC (HEMOGRAM ONLY)2018-12-30 06:44:00 Test Item Value Reference Range Comments WHITE BLOOD CELL COUNT (BEAKER) (test lbbe=127) 6.6 K/ L 3.5-10.5 RED BLOOD CELL COUNT (BEAKER) (test fyfa=936) 3.42 M/ L 4.63-6.08 HEMOGLOBIN (BEAKER) (test xpnp=951) 8.8 GM/DL 13.7-17.5 HEMATOCRIT (BEAKER) (test byrl=568) 29.2 % 40.1-51.0 MEAN CORPUSCULAR VOLUME (BEAKER) (test dehs=101) 85.4 fL 79.0-92.2 MEAN CORPUSCULAR HEMOGLOBIN (BEAKER) (test 25.7 pg 25.7-32.2 pwpo=838) MEAN CORPUSCULAR HEMOGLOBIN CONC (BEAKER) (test 30.1 GM/DL 32.3-36.5 ycqa=494) RED CELL DISTRIBUTION WIDTH (BEAKER) (test 14.9 % 11.6-14.4 cfkj=600) PLATELET COUNT (BEAKER) (test pcxc=719) 233 K/CU MM 150-450 MEAN PLATELET VOLUME (BEAKER) (test sbhi=704) 10.6 fL 9.4-12.4 NUCLEATED RED BLOOD CELLS (BEAKER) (test 0 /100 WBC 0-0 xitq=521) POCT-GLUCOSE [id number] 21:42:00 Test Item Value Reference Range Comments POC-GLUCOSE METER (BEAKER) 137 mg/dL 70-110 TESTED AT [address] (test zvhw=4601) [facility] [address] POCT-GLUCOSE [id number] 17:22:00 Test Item Value Reference Range Comments POC-GLUCOSE METER (BEAKER) 168 mg/dL 70-110 TESTED AT [address] (test quqv=6933) [place] [id number] POCT-GLUCOSE [id number] 12:54:00 Test Item Value Reference Range Comments POC-GLUCOSE METER (BEAKER) 138 mg/dL 70-110 TESTED AT [address] (test mbfa=9282) [place] [address] [id number] 05:12:00 Test Item Value Reference Range Comments MAGNESIUM (BEAKER) (test oerp=509) 2.0 mg/dL 1.6-2.6 BASIC METABOLIC [id number] 05:12:00 Test Item Value Reference Range Comments SODIUM (BEAKER) (test 139 meq/L 136-145 iiba=511) POTASSIUM (BEAKER) (test 4.2 meq/L 3.5-5.1 gvta=768) CHLORIDE (BEAKER) (test 101 meq/L 98-107 smnj=708) CO2 (BEAKER) (test 32 meq/L 22-29 bplr=431) BLOOD UREA NITROGEN 21 mg/dL 7-21 (BEAKER) (test uixi=657) CREATININE (BEAKER) (test 1.11 mg/dL 0.57-1.25 cspz=024) GLUCOSE RANDOM (BEAKER) 92 mg/dL 70-105 (test cpai=304) CALCIUM (BEAKER) (test 8.3 mg/dL 8.4-10.2 lgjx=674) EGFR (BEAKER) (test 65 mL/min/1.73 sq m ESTIMATED GFR IS NOT weno=1902) ACCURATE CREATININE CLEARANCE IN PREDICTING GLOMERULAR FILTRATION RATE. ESTIMATED GFR IS NOT APPLICABLE FOR DIALYSIS PATIENTS. BLOOD [id number] 02:00:00 Test Item Value Reference Range Comments CULTURE (BEAKER) (test jgjq=6866) No growth in 5 days POCT-GLUCOSE [id number] 21:25:00 Test Item Value Reference Range Comments POC-GLUCOSE METER (BEAKER) 168 mg/dL 70-110 TESTED AT [address] (test lood=5125) [facility] [address] POCT-GLUCOSE [id number] 17:16:00 Test Item Value Reference Range Comments POC-GLUCOSE METER (BEAKER) 136 mg/dL 70-110 TESTED AT [address] (test lezx=2793) [facility] [address] POCT-GLUCOSE [id number] 12:33:00 Test Item Value Reference Range Comments POC-GLUCOSE METER (BEAKER) 127 mg/dL 70-110 TESTED AT [address] (test joey=4363) [place] [address] [id number] 06:30:00 Test Item Value Reference Range Comments MAGNESIUM (BEAKER) (test paos=545) 2.1 mg/dL 1.6-2.6 BASIC METABOLIC [id number] 06:30:00 Test Item Value Reference Range Comments SODIUM (BEAKER) (test 139 meq/L 136-145 rejf=966) POTASSIUM (BEAKER) (test 4.0 meq/L 3.5-5.1 qtsp=617) CHLORIDE (BEAKER) (test 101 meq/L 98-107 cfwd=083) CO2 (BEAKER) (test 31 meq/L 22-29 fcof=788) BLOOD UREA NITROGEN 23 mg/dL 7-21 (BEAKER) (test gowv=223) CREATININE (BEAKER) (test 1.27 mg/dL 0.57-1.25 vmpq=854) GLUCOSE RANDOM (BEAKER) 106 mg/dL 70-105 (test oetc=011) CALCIUM (BEAKER) (test 8.5 mg/dL 8.4-10.2 skyo=965) EGFR (BEAKER) (test 56 mL/min/1.73 sq m ESTIMATED GFR IS NOT wxit=3634) ACCURATE CREATININE CLEARANCE IN PREDICTING GLOMERULAR FILTRATION RATE. ESTIMATED GFR IS NOT APPLICABLE FOR DIALYSIS PATIENTS. POCT-GLUCOSE [id number] 18:40:00 Test Item Value Reference Range Comments POC-GLUCOSE METER (BEAKER) 151 mg/dL 70-110 TESTED AT [address] (test kcvg=7627) [place] [address] POCT-GLUCOSE [id number] 12:32:00 Test Item Value Reference Range Comments POC-GLUCOSE METER (BEAKER) 145 mg/dL 70-110 TESTED AT [address] (test zjei=1371) [place] [address] POCT-GLUCOSE [id number] 09:21:00 Test Item Value Reference Range Comments POC-GLUCOSE METER (BEAKER) 120 mg/dL 70-110 TESTED AT [address] (test gzkg=0547) [place] [address] [id number] 06:50:00 Test Item Value Reference Range Comments MAGNESIUM (BEAKER) (test kwbo=155) 1.8 mg/dL 1.6-2.6 POCT-GLUCOSE [id number] 21:57:00 Test Item Value Reference Range Comments POC-GLUCOSE METER (BEAKER) 110 mg/dL 70-110 TESTED AT [address] (test catl=9912) [place] [address] POCT-GLUCOSE [id number] 17:57:00 Test Item Value Reference Range Comments POC-GLUCOSE METER (BEAKER) 130 mg/dL 70-110 TESTED AT [address] (test fjaj=7530) [place] [address] RAD, CHEST, 1 VIEW, NON [id number] 16:41:00Reason for exam:->s/p acbShould this be performed [...] Pacheco Verified Date/Time: 12/26/2018 16:41:43 Reading Location: [facility] Radiology Reading Room SPUTUM CULTURE + GRAM [id number] 12:16:00 Test Item Value Reference Range Comments CULTURE (BEAKER) (test 4+ Normal respiratory deandra fsgw=2942) present GRAM STAIN RESULT (BEAKER) <1+ White blood cells seen (test igdb=0922) GRAM STAIN RESULT (BEAKER) 0-5 epithelial cells (test rxzo=68117) GRAM STAIN RESULT (BEAKER) <1+ yeast (test joeb=49769) POCT-GLUCOSE [id number] 11:58:00 Test Item Value Reference Range Comments POC-GLUCOSE METER (BEAKER) 124 mg/dL 70-110 TESTED AT [address] (test vpwf=7776) [place] [address] POCT-GLUCOSE [id number] 07:27:00 Test Item Value Reference Range Comments POC-GLUCOSE METER (BEAKER) 140 mg/dL 70-110 TESTED AT [address] (test syrk=2396) [place] [address] [id number] 05:59:00 Test Item Value Reference Range Comments MAGNESIUM (BEAKER) (test maaw=556) 2.0 mg/dL 1.6-2.6 B-TYPE NATRIURETIC FACTOR (BNP)2018-12-26 05:58:00 Test Item Value Reference Range Comments B-TYPE NATRIURETIC PEPTIDE (BEAKER) (test 1275 pg/mL 0-100 mggk=497) POCT-GLUCOSE [id number] 21:27:00 Test Item Value Reference Range Comments POC-GLUCOSE METER (BEAKER) 181 mg/dL 70-110 TESTED AT [address] (test mjzf=2858) [place] [address] POCT-GLUCOSE [id number] 17:26:00 Test Item Value Reference Range Comments POC-GLUCOSE METER (BEAKER) 133 mg/dL 70-110 TESTED AT [address] (test mdhe=2516) [place] [address] POCT-GLUCOSE [id number] 12:21:00 Test Item Value Reference Range Comments POC-GLUCOSE METER (BEAKER) 129 mg/dL 70-110 TESTED AT [address] (test elhm=5030) [facility] [address] RAD, CHEST, 1 VIEW, NON [id number] 10:32:00Reason for exam:->pulmonary edemaShould this be performed at the bedside?->YesFINAL REPORT AP chest HISTORY: Pulmonary edema. COMPARISON: 07/26/2018. IMPRESSION: Cardia megaly. Sternotomy. Moderate diffuse interstitial edema. Moderate effusions. Basilar atelectasis. No pneumothorax. Signed: Serjio Lawrence MDReport Verified Date/Time: 12/25/2018 10:32:11 [facility] Rad[facility] POCT-GLUCOSE [id number] 07:45:00 Test Item Value Reference Range Comments POC-GLUCOSE METER (BEAKER) 150 mg/dL 70-110 TESTED AT [facility] [address] (test igca=3336) [facility] [address] [id number] 03:20:00 Test Item Value Reference Range Comments MAGNESIUM (BEAKER) (test 2.1 mg/dL 1.6-2.6 Specimen slightly hemolyzed gtjf=704) BASIC METABOLIC [id number] 03:20:00 Test Item Value Reference Range Comments SODIUM (BEAKER) (test 138 meq/L 136-145 njtv=376) POTASSIUM (BEAKER) (test 4.6 meq/L 3.5-5.1 Specimen slightly lpva=168) hemolyzed CHLORIDE (BEAKER) (test 100 meq/L 98-107 amrr=057) CO2 (BEAKER) (test 32 meq/L 22-29 rmxp=737) BLOOD UREA NITROGEN 28 mg/dL 7-21 (BEAKER) (test yuck=255) CREATININE (BEAKER) (test 1.17 mg/dL 0.57-1.25 Specimen slightly kdes=388) hemolyzed GLUCOSE RANDOM (BEAKER) 104 mg/dL 70-105 (test gklv=293) CALCIUM (BEAKER) (test 8.5 mg/dL 8.4-10.2 ktno=896) EGFR (BEAKER) (test 61 mL/min/1.73 sq m ESTIMATED GFR IS NOT kshb=3183) ACCURATE CREATININE CLEARANCE IN PREDICTING GLOMERULAR FILTRATION RATE. ESTIMATED GFR IS NOT APPLICABLE FOR DIALYSIS PATIENTS. [id number] 03:12:00 Test Item Value Reference Range Comments PARTIAL THROMBOPLASTIN TIME (BEAKER) (test 38.2 seconds 22.5-36.0 cuhr=450) CBC W/PLT COUNT & AUTO [id number] 03:06:00 Test Item Value Reference Range Comments WHITE BLOOD CELL COUNT (BEAKER) (test hjju=523) 8.0 K/ L 3.5-10.5 RED BLOOD CELL COUNT (BEAKER) (test lrwz=978) 3.28 M/ L 4.63-6.08 HEMOGLOBIN (BEAKER) (test wmfg=396) 8.5 GM/DL 13.7-17.5 HEMATOCRIT (BEAKER) (test uxtb=282) 27.4 % 40.1-51.0 MEAN CORPUSCULAR VOLUME (BEAKER) (test kgez=315) 83.5 fL 79.0-92.2 MEAN CORPUSCULAR HEMOGLOBIN (BEAKER) (test 25.9 pg 25.7-32.2 zdyk=109) MEAN CORPUSCULAR HEMOGLOBIN CONC (BEAKER) (test 31.0 GM/DL 32.3-36.5 iwby=338) RED CELL DISTRIBUTION WIDTH (BEAKER) (test 14.6 % 11.6-14.4 nfct=799) PLATELET COUNT (BEAKER) (test oydd=773) 267 K/CU MM 150-450 MEAN PLATELET VOLUME (BEAKER) (test lmtj=743) 10.9 fL 9.4-12.4 NUCLEATED RED BLOOD CELLS (BEAKER) (test 0 /100 WBC 0-0 bxca=013) NEUTROPHILS RELATIVE PERCENT (BEAKER) (test 73 % tuut=865) LYMPHOCYTES RELATIVE PERCENT (BEAKER) (test 15 % ykts=295) MONOCYTES RELATIVE PERCENT (BEAKER) (test 9 % yipp=456) EOSINOPHILS RELATIVE PERCENT (BEAKER) (test 2 % fujm=175) BASOPHILS RELATIVE PERCENT (BEAKER) (test 1 % vkuz=271) NEUTROPHILS ABSOLUTE COUNT (BEAKER) (test 5.81 K/ L 1.78-5.38 gwvm=136) LYMPHOCYTES ABSOLUTE COUNT (BEAKER) (test 1.20 K/ L 1.32-3.57 zkfj=431) MONOCYTES ABSOLUTE COUNT (BEAKER) (test 0.69 K/ L 0.30-0.82 afbx=733) EOSINOPHILS ABSOLUTE COUNT (BEAKER) (test 0.16 K/ L 0.04-0.54 setx=456) BASOPHILS ABSOLUTE COUNT (BEAKER) (test 0.05 K/ L 0.01-0.08 xlcn=903) IMMATURE GRANULOCYTES-RELATIVE PERCENT (BEAKER) 1 % 0-1 (test bota=5617) CALCIUM, [id number] 02:49:00 Test Item Value Reference Range Comments CALCIUM IONIZED (BEAKER) (test zlnx=331) 1.11 mmol/L 1.12-1.27 PH, BLOOD (BEAKER) (test qghp=2449) 7.45 POCT-GLUCOSE [id number] 21:52:00 Test Item Value Reference Range Comments POC-GLUCOSE METER (BEAKER) 130 mg/dL 70-110 TESTED AT [address] (test nasx=1420) [place] [address] [id number] 19:29:00 Test Item Value Reference Range Comments POTASSIUM (BEAKER) (test tzgp=868) 4.5 meq/L 3.5-5.1 [id number] 19:29:00 Test Item Value Reference Range Comments MAGNESIUM (BEAKER) (test nlmx=040) 2.1 mg/dL 1.6-2.6 CALCIUM, [id number] 19:05:00 Test Item Value Reference Range Comments CALCIUM IONIZED (BEAKER) (test btfd=553) 1.18 mmol/L 1.12-1.27 PH, BLOOD (BEAKER) (test jxde=7790) 7.35 POCT-GLUCOSE [id number] 18:34:00 Test Item Value Reference Range Comments POC-GLUCOSE METER (BEAKER) 125 mg/dL 70-110 TESTED AT [address] (test mmtu=7376) [facility] [address] RAD, CHEST, 1 VIEW, NON [id number] 16:43:00Reason for exam:->shortness of BreathShould this be [...] Valdovinos Verified Date/Time: 12/24/2018 16:43:55 Reading Location: [facility] Reading Room POCT-GLUCOSE [id number] 11:44:00 Test Item Value Reference Range Comments POC-GLUCOSE METER (BEAKER) 115 mg/dL 70-110 TESTED AT [address] (test nlyx=8922) [facility] [address] POCT-GLUCOSE [id number] 09:29:00 Test Item Value Reference Range Comments POC-GLUCOSE METER (BEAKER) 123 mg/dL 70-110 TESTED AT [address] (test kvzm=6171) [place] [address] [id number] 04:47:00 Test Item Value Reference Range Comments PARTIAL THROMBOPLASTIN TIME (BEAKER) (test 37.9 seconds 22.5-36.0 bsiu=679) [id number] 04:37:00 Test Item Value Reference Range Comments MAGNESIUM (BEAKER) (test 2.4 mg/dL 1.6-2.6 Specimen slightly hemolyzed squs=331) [id number] 04:37:00 Test Item Value Reference Range Comments PHOSPHORUS (BEAKER) (test 4.0 mg/dL 2.3-4.7 Specimen slightly hemolyzed zbmf=575) BASIC METABOLIC [id number] 04:37:00 Test Item Value Reference Range Comments SODIUM (BEAKER) (test 139 meq/L 136-145 clbf=264) POTASSIUM (BEAKER) (test 4.9 meq/L 3.5-5.1 Specimen slightly fmkf=268) hemolyzed CHLORIDE (BEAKER) (test 101 meq/L 98-107 equz=820) CO2 (BEAKER) (test 29 meq/L 22-29 icdm=042) BLOOD UREA NITROGEN 26 mg/dL 7-21 (BEAKER) (test xdyy=633) CREATININE (BEAKER) (test 1.14 mg/dL 0.57-1.25 Specimen slightly tqnl=564) hemolyzed GLUCOSE RANDOM (BEAKER) 89 mg/dL 70-105 (test bwqf=394) CALCIUM (BEAKER) (test 8.7 mg/dL 8.4-10.2 icjw=947) EGFR (BEAKER) (test 63 mL/min/1.73 sq m ESTIMATED GFR IS NOT bpio=9750) ACCURATE CREATININE CLEARANCE IN PREDICTING GLOMERULAR FILTRATION RATE. ESTIMATED GFR IS NOT APPLICABLE FOR DIALYSIS PATIENTS. CBC (HEMOGRAM ONLY)2018-12-24 04:16:00 Test Item Value Reference Range Comments WHITE BLOOD CELL COUNT (BEAKER) (test hzim=937) 7.4 K/ L 3.5-10.5 RED BLOOD CELL COUNT (BEAKER) (test qkze=380) 3.30 M/ L 4.63-6.08 HEMOGLOBIN (BEAKER) (test akya=354) 8.5 GM/DL 13.7-17.5 HEMATOCRIT (BEAKER) (test zoxg=757) 27.7 % 40.1-51.0 MEAN CORPUSCULAR VOLUME (BEAKER) (test xflu=777) 83.9 fL 79.0-92.2 MEAN CORPUSCULAR HEMOGLOBIN (BEAKER) (test 25.8 pg 25.7-32.2 wdtk=983) MEAN CORPUSCULAR HEMOGLOBIN CONC (BEAKER) (test 30.7 GM/DL 32.3-36.5 gcbf=112) RED CELL DISTRIBUTION WIDTH (BEAKER) (test 14.7 % 11.6-14.4 ascy=642) PLATELET COUNT (BEAKER) (test vrww=803) 239 K/CU MM 150-450 MEAN PLATELET VOLUME (BEAKER) (test qjsw=425) 10.3 fL 9.4-12.4 NUCLEATED RED BLOOD CELLS (BEAKER) (test 0 /100 WBC 0-0 ombn=586) POCT-GLUCOSE [id number] 22:39:00 Test Item Value Reference Range Comments POC-GLUCOSE METER (BEAKER) 139 mg/dL 70-110 TESTED AT [facility] [address] [facility] (test jzqy=6979) [place] [address] HEPATIC FUNCTION [id number] 21:41:00 Test Item Value Reference Range Comments TOTAL PROTEIN (BEAKER) (test wehr=968) 5.9 gm/dL 6.0-8.3 ALBUMIN (BEAKER) (test alaw=4298) 3.2 g/dL 3.5-5.0 BILIRUBIN TOTAL (BEAKER) (test nutl=551) 0.3 mg/dL 0.2-1.2 BILIRUBIN DIRECT (BEAKER) (test focb=429) 0.2 mg/dL 0.1-0.5 ALKALINE PHOSPHATASE (BEAKER) (test fdtw=636) 50 U/L 40-150 AST (SGOT) (BEAKER) (test qeiz=538) 13 U/L 5-34 ALT (SGPT) (BEAKER) (test htfg=054) 24 U/L 6-55 CALCIUM, [id number] 21:07:00 Test Item Value Reference Range Comments CALCIUM IONIZED (BEAKER) (test vzzg=344) 1.15 mmol/L 1.12-1.27 PH, BLOOD (BEAKER) (test mvkn=7108) 7.41 LACTIC ACID, [id number] 20:16:00 Test Item Value Reference Range Comments LACTATE BLOOD VENOUS (2) 0.9 mmol/L 0.5-2.2 Specimen slightly hemolyzed (BEAKER) (test ihzu=4856) [id number] 18:53:00 Test Item Value Reference Range Comments PROCALCITONIN (BEAKER) (test zffb=8937) < ng/mL <0.05 SEPSIS RISK (ng/mL)Low: 0.05-0.50Intermediate: 0.51-2.00High: & gt;=2.01BASIC METABOLIC [id number] 18:25:00 Test Item Value Reference Range Comments SODIUM (BEAKER) (test 140 meq/L 136-145 dhcz=704) POTASSIUM (BEAKER) (test 4.5 meq/L 3.5-5.1 ttxr=527) CHLORIDE (BEAKER) (test 100 meq/L 98-107 qlfp=690) CO2 (BEAKER) (test 33 meq/L 22-29 mhml=516) BLOOD UREA NITROGEN 26 mg/dL 7-21 (BEAKER) (test xtfl=981) CREATININE (BEAKER) (test 1.25 mg/dL 0.57-1.25 mjkp=231) GLUCOSE RANDOM (BEAKER) 97 mg/dL 70-105 (test weob=933) CALCIUM (BEAKER) (test 8.7 mg/dL 8.4-10.2 qpbe=363) EGFR (BEAKER) (test 57 mL/min/1.73 sq m ESTIMATED GFR IS NOT rgdf=8809) ACCURATE CREATININE CLEARANCE IN PREDICTING GLOMERULAR FILTRATION RATE. ESTIMATED GFR IS NOT APPLICABLE FOR DIALYSIS PATIENTS. [id number] 18:20:00 Test Item Value Reference Range Comments MAGNESIUM (BEAKER) (test ywpz=196) 2.2 mg/dL 1.6-2.6 Check Serum Magnesium level 2 hours after IV magnesium replacement.POCT-GLUCOSE [id number] 17:58:00 Test Item Value Reference Range Comments POC-GLUCOSE METER (BEAKER) 101 mg/dL 70-110 TESTED AT [facility] [address] [facility] (test knoo=4792) [facility] [address] HEMOGLOBIN AND [id number] 17:42:00 Test Item Value Reference Range Comments HEMOGLOBIN (BEAKER) (test haiu=849) 8.0 GM/DL 13.7-17.5 HEMATOCRIT (BEAKER) (test wywt=667) 25.8 % 40.1-51.0 CBC (HEMOGRAM ONLY)2018-12-23 17:42:00 Test Item Value Reference Range Comments WHITE BLOOD CELL COUNT (BEAKER) (test hnst=209) 8.6 K/ L 3.5-10.5 RED BLOOD CELL COUNT (BEAKER) (test kkzl=003) 3.05 M/ L 4.63-6.08 HEMOGLOBIN (BEAKER) (test qagp=955) 8.0 GM/DL 13.7-17.5 HEMATOCRIT (BEAKER) (test gydr=734) 25.8 % 40.1-51.0 MEAN CORPUSCULAR VOLUME (BEAKER) (test qnvj=338) 84.6 fL 79.0-92.2 MEAN CORPUSCULAR HEMOGLOBIN (BEAKER) (test 26.2 pg 25.7-32.2 gpsc=262) MEAN CORPUSCULAR HEMOGLOBIN CONC (BEAKER) (test 31.0 GM/DL 32.3-36.5 xvsj=393) RED CELL DISTRIBUTION WIDTH (BEAKER) (test 14.7 % 11.6-14.4 osdw=781) PLATELET COUNT (BEAKER) (test xcuo=250) 246 K/CU MM 150-450 MEAN PLATELET VOLUME (BEAKER) (test bgbz=257) 10.7 fL 9.4-12.4 NUCLEATED RED BLOOD CELLS (BEAKER) (test 0 /100 WBC 0-0 xisk=185) POCT-GLUCOSE [id number] 12:24:00 Test Item Value Reference Range Comments POC-GLUCOSE METER (BEAKER) 108 mg/dL 70-110 TESTED AT [address] (test fzxg=5350) [place] [id number] RAD, CHEST, 1 VIEW, NON [id number] 09:04:00Reason for exam:->pulmonary edemaShould this be performed [...] Katie Salinas Verified Date/Time: 12/23/2018 09:04:24 Reading Location[facility] Reading Room 09:04 AMPOCT-GLUCOSE [id number] 08:01:00 Test Item Value Reference Range Comments POC-GLUCOSE METER (BEAKER) 123 mg/dL 70-110 TESTED AT [address] (test etcv=5370) [place] [address] [id number] 05:56:00 Test Item Value Reference Range Comments MAGNESIUM (BEAKER) (test 2.1 mg/dL 1.6-2.6 Specimen slightly hemolyzed ftbg=210) [id number] 05:56:00 Test Item Value Reference Range Comments PHOSPHORUS (BEAKER) (test 3.5 mg/dL 2.3-4.7 Specimen slightly hemolyzed wrmm=980) BASIC METABOLIC [id number] 05:56:00 Test Item Value Reference Range Comments SODIUM (BEAKER) (test 140 meq/L 136-145 qkke=264) POTASSIUM (BEAKER) (test 4.9 meq/L 3.5-5.1 Specimen slightly zisc=440) hemolyzed CHLORIDE (BEAKER) (test 101 meq/L 98-107 jcvt=439) CO2 (BEAKER) (test 32 meq/L 22-29 azau=096) BLOOD UREA NITROGEN 27 mg/dL 7-21 (BEAKER) (test grwp=628) CREATININE (BEAKER) (test 1.22 mg/dL 0.57-1.25 Specimen slightly cxdz=614) hemolyzed GLUCOSE RANDOM (BEAKER) 106 mg/dL 70-105 (test nelz=309) CALCIUM (BEAKER) (test 8.7 mg/dL 8.4-10.2 eixo=283) EGFR (BEAKER) (test 58 mL/min/1.73 sq m ESTIMATED GFR IS NOT xrrk=0184) ACCURATE CREATININE CLEARANCE IN PREDICTING GLOMERULAR FILTRATION RATE. ESTIMATED GFR IS NOT APPLICABLE FOR DIALYSIS PATIENTS. [id number] 04:41:00 Test Item Value Reference Range Comments PARTIAL THROMBOPLASTIN TIME (BEAKER) (test 35.4 seconds 22.5-36.0 irbk=990) CBC (HEMOGRAM ONLY)2018-12-23 04:33:00 Test Item Value Reference Range Comments WHITE BLOOD CELL COUNT (BEAKER) (test flfq=590) 11.1 K/ L 3.5-10.5 RED BLOOD CELL COUNT (BEAKER) (test ssfg=851) 3.55 M/ L 4.63-6.08 HEMOGLOBIN (BEAKER) (test fpzy=206) 9.3 GM/DL 13.7-17.5 HEMATOCRIT (BEAKER) (test kczo=653) 30.3 % 40.1-51.0 MEAN CORPUSCULAR VOLUME (BEAKER) (test tnkf=771) 85.4 fL 79.0-92.2 MEAN CORPUSCULAR HEMOGLOBIN (BEAKER) (test 26.2 pg 25.7-32.2 aohh=504) MEAN CORPUSCULAR HEMOGLOBIN CONC (BEAKER) (test 30.7 GM/DL 32.3-36.5 tusm=028) RED CELL DISTRIBUTION WIDTH (BEAKER) (test 14.9 % 11.6-14.4 tqgx=435) PLATELET COUNT (BEAKER) (test cria=672) 292 K/CU MM 150-450 MEAN PLATELET VOLUME (BEAKER) (test mutd=330) 10.5 fL 9.4-12.4 NUCLEATED RED BLOOD CELLS (BEAKER) (test 0 /100 WBC 0-0 dfbv=380) POCT-GLUCOSE [id number] 21:25:00 Test Item Value Reference Range Comments POC-GLUCOSE METER (BEAKER) 151 mg/dL 70-110 TESTED AT [address] (test rzse=2334) [place] [address] [id number] 19:38:00 Test Item Value Reference Range Comments PARTIAL THROMBOPLASTIN TIME (BEAKER) (test 38.7 seconds 22.5-36.0 iybu=521) POCT-GLUCOSE [id number] 18:50:00 Test Item Value Reference Range Comments POC-GLUCOSE METER (BEAKER) 126 mg/dL 70-110 TESTED AT [address] (test jedt=6107) [place] [address] [id number] 16:08:00 Test Item Value Reference Range Comments POTASSIUM (BEAKER) (test dmla=795) 4.7 meq/L 3.5-5.1 PRN - repeat potassium levels every 1 hour until glucose level is less than 450 mg/[id number] 16:08:00 Test Item Value Reference Range Comments MAGNESIUM (BEAKER) (test clim=162) 2.2 mg/dL 1.6-2.6 PRN - repeat potassium levels every 1 hour until glucose level is less than 450 mg/dLPOCT-GLUCOSE [id number] 11:44:00 Test Item Value Reference Range Comments POC-GLUCOSE METER (BEAKER) 134 mg/dL 70-110 TESTED AT [address] (test jnin=9855) [place] [address] POCT-GLUCOSE [id number] 08:15:00 Test Item Value Reference Range Comments POC-GLUCOSE METER (BEAKER) 173 mg/dL 70-110 TESTED AT [address] (test hmqj=7403) [place] [address] RAD, CHEST, 1 VIEW, NON [id number] 07:38:00Reason for exam:->pulmonary edemaShould this be performed [...] Rosendo [place] Verified Date/Time: 07:38:37 Reading Location: [facility] Radiology Reading Room CALCIUM, [id number] 05:13:00 Test Item Value Reference Range Comments CALCIUM IONIZED (BEAKER) (test lskc=816) 1.12 mmol/L 1.12-1.27 PH, BLOOD (BEAKER) (test xnjk=9638) 7.40 [id number] 04:53:00 Test Item Value Reference Range Comments PHOSPHORUS (BEAKER) (test jwkp=445) 3.5 mg/dL 2.3-4.7 [id number] 04:53:00 Test Item Value Reference Range Comments MAGNESIUM (BEAKER) (test efwp=673) 2.0 mg/dL 1.6-2.6 BASIC METABOLIC [id number] 04:53:00 Test Item Value Reference Range Comments SODIUM (BEAKER) (test 142 meq/L 136-145 janj=421) POTASSIUM (BEAKER) (test 4.7 meq/L 3.5-5.1 abqj=236) CHLORIDE (BEAKER) (test 103 meq/L 98-107 ofge=732) CO2 (BEAKER) (test 32 meq/L 22-29 irdp=171) BLOOD UREA NITROGEN 27 mg/dL 7-21 (BEAKER) (test mlzd=630) CREATININE (BEAKER) (test 1.08 mg/dL 0.57-1.25 onsc=718) GLUCOSE RANDOM (BEAKER) 95 mg/dL 70-105 (test cjra=562) CALCIUM (BEAKER) (test 8.5 mg/dL 8.4-10.2 hgmn=719) EGFR (BEAKER) (test 67 mL/min/1.73 sq m ESTIMATED GFR IS NOT qqgx=8566) ACCURATE CREATININE CLEARANCE IN PREDICTING GLOMERULAR FILTRATION RATE. ESTIMATED GFR IS NOT APPLICABLE FOR DIALYSIS PATIENTS. CBC (HEMOGRAM ONLY)2018-12-22 04:26:00 Test Item Value Reference Range Comments WHITE BLOOD CELL COUNT (BEAKER) (test vsmf=555) 11.4 K/ L 3.5-10.5 RED BLOOD CELL COUNT (BEAKER) (test yfyu=085) 3.47 M/ L 4.63-6.08 HEMOGLOBIN (BEAKER) (test jwzm=161) 9.0 GM/DL 13.7-17.5 HEMATOCRIT (BEAKER) (test fhaa=796) 29.7 % 40.1-51.0 MEAN CORPUSCULAR VOLUME (BEAKER) (test mjrv=799) 85.6 fL 79.0-92.2 MEAN CORPUSCULAR HEMOGLOBIN (BEAKER) (test 25.9 pg 25.7-32.2 xtpb=926) MEAN CORPUSCULAR HEMOGLOBIN CONC (BEAKER) (test 30.3 GM/DL 32.3-36.5 tamw=471) RED CELL DISTRIBUTION WIDTH (BEAKER) (test 15.0 % 11.6-14.4 hiic=456) PLATELET COUNT (BEAKER) (test vidf=351) 257 K/CU MM 150-450 MEAN PLATELET VOLUME (BEAKER) (test vzmh=645) 10.8 fL 9.4-12.4 NUCLEATED RED BLOOD CELLS (BEAKER) (test 0 /100 WBC 0-0 ssnf=549) POCT-GLUCOSE [id number] 22:07:00 Test Item Value Reference Range Comments POC-GLUCOSE METER (BEAKER) 182 mg/dL 70-110 TESTED AT [address] (test eugy=8508) [facility] [address] POCT-GLUCOSE [id number] 17:42:00 Test Item Value Reference Range Comments POC-GLUCOSE METER (BEAKER) 183 mg/dL 70-110 TESTED AT [address] (test cmgf=2397) [facility] [address] [id number] 13:25:00 Test Item Value Reference Range Comments MAGNESIUM (BEAKER) (test 2.2 mg/dL 1.6-2.6 Specimen slightly hemolyzed slwt=632) Check Serum Magnesium level 2 hours after IV magnesium replacement.Check Serum Phosphorus level 4 hours after IV phosphorus replacement or 8 hours after PO replacement completed.Check Serum Potassium level 2 hours after oral potassium replacement completed or 30 min after intravenous potassium replacement.[id number] 13:25:00 Test Item Value Reference Range Comments PHOSPHORUS (BEAKER) (test 3.3 mg/dL 2.3-4.7 Specimen slightly hemolyzed ywbe=968) Check Serum Magnesium level 2 hours after IV magnesium replacement.Check Serum Phosphorus level 4 hours after IV phosphorus replacement or 8 hours after PO replacement completed.Check Serum Potassium level 2 hours after oral potassium replacement completed or 30 min after intravenous potassium replacement.[id number] 13:25:00 Test Item Value Reference Range Comments POTASSIUM (BEAKER) (test 4.6 meq/L 3.5-5.1 Specimen slightly hemolyzed hqcv=908) Check Serum Magnesium level 2 hours after IV magnesium replacement.Check Serum Phosphorus level 4 hours after IV phosphorus replacement or 8 hours after PO replacement completed.Check Serum Potassium level 2 hours after oral potassium replacement completed or 30 min after intravenous potassium replacement.CALCIUM , [id number] 13:04:00 Test Item Value Reference Range Comments CALCIUM IONIZED (BEAKER) (test kyie=724) 1.13 mmol/L 1.12-1.27 PH, BLOOD (BEAKER) (test zlbh=2313) 7.45 Check serum Ionized Calcium level after 4 hours after IV Calcium replacement.POCT-GLUCOSE [id number] 11:41:00 Test Item Value Reference Range Comments POC-GLUCOSE METER (BEAKER) 155 mg/dL 70-110 TESTED AT [address] (test beey=6494) [facility] [address] RAD, CHEST, 1 VIEW, NON [id number] 09:25:00Reason for exam:->pulmonary edemaShould this be performed [...] REDDYeport Verified Date/Time: 12/21/2018 09:25:43 Reading Location: [facility] C013V Neuro Reading Room POCT-GLUCOSE [id number] 07:42: 00 Test Item Value Reference Range Comments POC-GLUCOSE METER (BEAKER) 138 mg/dL 70-110 TESTED AT [facility] [address] [facility] (test juhp=3749) [facility] [address] [id number] 06:04:00 Test Item Value Reference Range Comments PHOSPHORUS (BEAKER) (test flvl=182) 3.0 mg/dL 2.3-4.7 [id number] 06:04:00 Test Item Value Reference Range Comments MAGNESIUM (BEAKER) (test socv=129) 2.3 mg/dL 1.6-2.6 BASIC METABOLIC [id number] 06:04:00 Test Item Value Reference Range Comments SODIUM (BEAKER) (test 139 meq/L 136-145 rqcc=408) POTASSIUM (BEAKER) (test 4.3 meq/L 3.5-5.1 jxrt=196) CHLORIDE (BEAKER) (test 100 meq/L 98-107 obbz=451) CO2 (BEAKER) (test 32 meq/L 22-29 dchy=137) BLOOD UREA NITROGEN 25 mg/dL 7-21 (BEAKER) (test jrrr=461) CREATININE (BEAKER) (test 1.04 mg/dL 0.57-1.25 knfk=992) GLUCOSE RANDOM (BEAKER) 114 mg/dL 70-105 (test gngu=803) CALCIUM (BEAKER) (test 8.0 mg/dL 8.4-10.2 mcpv=421) EGFR (BEAKER) (test 70 mL/min/1.73 sq m ESTIMATED GFR IS NOT mlgv=9113) ACCURATE CREATININE CLEARANCE IN PREDICTING GLOMERULAR FILTRATION RATE. ESTIMATED GFR IS NOT APPLICABLE FOR DIALYSIS PATIENTS. CALCIUM, [id number] 05:37:00 Test Item Value Reference Range Comments CALCIUM IONIZED (BEAKER) (test gdcz=200) 1.10 mmol/L 1.12-1.27 PH, BLOOD (BEAKER) (test gikc=6550) 7.41 CBC (HEMOGRAM ONLY)2018-12-21 04:45:00 Test Item Value Reference Range Comments WHITE BLOOD CELL COUNT (BEAKER) (test gjsv=940) 11.6 K/ L 3.5-10.5 RED BLOOD CELL COUNT (BEAKER) (test dpeb=101) 3.74 M/ L 4.63-6.08 HEMOGLOBIN (BEAKER) (test uavt=048) 9.8 GM/DL 13.7-17.5 HEMATOCRIT (BEAKER) (test jsfl=230) 31.6 % 40.1-51.0 MEAN CORPUSCULAR VOLUME (BEAKER) (test koof=446) 84.5 fL 79.0-92.2 MEAN CORPUSCULAR HEMOGLOBIN (BEAKER) (test 26.2 pg 25.7-32.2 mlwj=236) MEAN CORPUSCULAR HEMOGLOBIN CONC (BEAKER) (test 31.0 GM/DL 32.3-36.5 xapj=425) RED CELL DISTRIBUTION WIDTH (BEAKER) (test 15.1 % 11.6-14.4 xvhr=233) PLATELET COUNT (BEAKER) (test sqih=300) 250 K/CU MM 150-450 MEAN PLATELET VOLUME (BEAKER) (test iwkt=651) 10.7 fL 9.4-12.4 NUCLEATED RED BLOOD CELLS (BEAKER) (test 0 /100 WBC 0-0 kdlk=423) [id number] 00:49:00 Test Item Value Reference Range Comments POTASSIUM (BEAKER) (test miub=052) 4.6 meq/L 3.5-5.1 [id number] 00:49:00 Test Item Value Reference Range Comments MAGNESIUM (BEAKER) (test umpu=054) 2.0 mg/dL 1.6-2.6 POCT-GLUCOSE [id number] 22:01:00 Test Item Value Reference Range Comments POC-GLUCOSE METER (BEAKER) 163 mg/dL 70-110 TESTED AT [facility] [address] [facility] (test vlkl=6945) [place] [address] [id number] 17:05:00 Test Item Value Reference Range Comments POTASSIUM (BEAKER) (test wiyc=281) 3.7 meq/L 3.5-5.1 [id number] 17:05:00 Test Item Value Reference Range Comments MAGNESIUM (BEAKER) (test yjef=294) 2.1 mg/dL 1.6-2.6 POCT-GLUCOSE [id number] 16:53:00 Test Item Value Reference Range Comments POC-GLUCOSE METER (BEAKER) 147 mg/dL 70-110 TESTED AT [address] (test inmf=8351) [place] [address] POCT-GLUCOSE [id number] 12:24:00 Test Item Value Reference Range Comments POC-GLUCOSE METER (BEAKER) 123 mg/dL 70-110 TESTED AT [address] (test alqd=9456) [place] [address] [id number] 10:35:00 Test Item Value Reference Range Comments POTASSIUM (BEAKER) (test pnhi=005) 3.7 meq/L 3.5-5.1 [id number] 10:35:00 Test Item Value Reference Range Comments MAGNESIUM (BEAKER) (test vzir=923) 2.1 mg/dL 1.6-2.6 POCT-GLUCOSE [id number] 07:55:00 Test Item Value Reference Range Comments POC-GLUCOSE METER (BEAKER) 137 mg/dL 70-110 TESTED AT [address] (test xvrd=6023) [place] [address] RAD, CHEST, 1 VIEW, NON [id number] 07:36:00Reason for exam:->pulmonary edemaShould this be performed [...] MDReport Verified Date/Time: 12/20/2018 07:36:57 Reading Location: [address] Neuro Reading Room POTASSIUM-STAT [id number] 04:45:00 Test Item Value Reference Range Comments POTASSIUM (BEAKER) (test xfxq=262) 3.6 meq/L 3.6-5.5 CALCIUM, [id number] 04:45:00 Test Item Value Reference Range Comments CALCIUM IONIZED (BEAKER) (test hucb=610) 1.11 mmol/L 1.12-1.27 PH, BLOOD (BEAKER) (test tmow=0236) 7.48 [id number] 04:39:00 Test Item Value Reference Range Comments PHOSPHORUS (BEAKER) (test bmyu=194) 2.6 mg/dL 2.3-4.7 [id number] 04:39:00 Test Item Value Reference Range Comments MAGNESIUM (BEAKER) (test dsqr=561) 2.1 mg/dL 1.6-2.6 BASIC METABOLIC [id number] 04:39:00 Test Item Value Reference Range Comments SODIUM (BEAKER) (test 138 meq/L 136-145 zqhd=838) POTASSIUM (BEAKER) (test 3.7 meq/L 3.5-5.1 xtna=795) CHLORIDE (BEAKER) (test 101 meq/L 98-107 qowf=245) CO2 (BEAKER) (test 30 meq/L 22-29 wdkn=608) BLOOD UREA NITROGEN 24 mg/dL 7-21 (BEAKER) (test azyz=060) CREATININE (BEAKER) (test 0.95 mg/dL 0.57-1.25 gkuh=934) GLUCOSE RANDOM (BEAKER) 113 mg/dL 70-105 (test fjye=462) CALCIUM (BEAKER) (test 8.2 mg/dL 8.4-10.2 vnzh=510) EGFR (BEAKER) (test 78 mL/min/1.73 sq m ESTIMATED GFR IS NOT hbnv=6034) ACCURATE CREATININE CLEARANCE IN PREDICTING GLOMERULAR FILTRATION RATE. ESTIMATED GFR IS NOT APPLICABLE FOR DIALYSIS PATIENTS. CBC (HEMOGRAM ONLY)2018-12-20 04:25:00 Test Item Value Reference Range Comments WHITE BLOOD CELL COUNT (BEAKER) (test ppob=576) 12.1 K/ L 3.5-10.5 RED BLOOD CELL COUNT (BEAKER) (test zqin=347) 3.60 M/ L 4.63-6.08 HEMOGLOBIN (BEAKER) (test yeho=573) 9.7 GM/DL 13.7-17.5 HEMATOCRIT (BEAKER) (test vsfn=055) 30.4 % 40.1-51.0 MEAN CORPUSCULAR VOLUME (BEAKER) (test rlzp=876) 84.4 fL 79.0-92.2 MEAN CORPUSCULAR HEMOGLOBIN (BEAKER) (test 26.9 pg 25.7-32.2 vwqu=210) MEAN CORPUSCULAR HEMOGLOBIN CONC (BEAKER) (test 31.9 GM/DL 32.3-36.5 mapp=001) RED CELL DISTRIBUTION WIDTH (BEAKER) (test 14.9 % 11.6-14.4 fbex=215) PLATELET COUNT (BEAKER) (test ksfw=885) 198 K/CU MM 150-450 MEAN PLATELET VOLUME (BEAKER) (test ewdt=791) 11.3 fL 9.4-12.4 NUCLEATED RED BLOOD CELLS (BEAKER) (test 0 /100 WBC 0-0 vzif=639) [id number] 23:33:00 Test Item Value Reference Range Comments MAGNESIUM (BEAKER) (test fght=096) 2.0 mg/dL 1.6-2.6 BASIC METABOLIC [id number] 23:33:00 Test Item Value Reference Range Comments SODIUM (BEAKER) (test 139 meq/L 136-145 rhuf=236) POTASSIUM (BEAKER) (test 3.7 meq/L 3.5-5.1 ekwe=652) CHLORIDE (BEAKER) (test 102 meq/L 98-107 hotx=103) CO2 (BEAKER) (test 29 meq/L 22-29 mitf=788) BLOOD UREA NITROGEN 26 mg/dL 7-21 (BEAKER) (test ftcg=582) CREATININE (BEAKER) (test 0.98 mg/dL 0.57-1.25 plea=712) GLUCOSE RANDOM (BEAKER) 120 mg/dL 70-105 (test uidm=880) CALCIUM (BEAKER) (test 8.0 mg/dL 8.4-10.2 totk=068) EGFR (BEAKER) (test 75 mL/min/1.73 sq m ESTIMATED GFR IS NOT pxbt=9638) ACCURATE CREATININE CLEARANCE IN PREDICTING GLOMERULAR FILTRATION RATE. ESTIMATED GFR IS NOT APPLICABLE FOR DIALYSIS PATIENTS. CALCIUM, [id number] 22:52:00 Test Item Value Reference Range Comments CALCIUM IONIZED (BEAKER) (test aiks=601) 1.10 mmol/L 1.12-1.27 PH, BLOOD (BEAKER) (test qagb=1440) 7.43 POCT-GLUCOSE [id number] 21:53:00 Test Item Value Reference Range Comments POC-GLUCOSE METER (BEAKER) 138 mg/dL 70-110 TESTED AT [address] (test eopz=7626) [place] [address] POCT-GLUCOSE [id number] 18:02:00 Test Item Value Reference Range Comments POC-GLUCOSE METER (BEAKER) 185 mg/dL 70-110 TESTED AT [address] (test kvss=2839) [place] [address] [id number] 15:24:00 Test Item Value Reference Range Comments POTASSIUM (BEAKER) (test xaqa=796) 4.0 meq/L 3.5-5.1 [id number] 15:24:00 Test Item Value Reference Range Comments MAGNESIUM (BEAKER) (test shyu=048) 2.1 mg/dL 1.6-2.6 POCT-GLUCOSE [id number] 13:05:00 Test Item Value Reference Range Comments POC-GLUCOSE METER (BEAKER) 156 mg/dL 70-110 TESTED AT [address] (test owud=6352) [place] [id number] POCT-GLUCOSE [id number] 08:12:00 Test Item Value Reference Range Comments POC-GLUCOSE METER (BEAKER) 108 mg/dL 70-110 TESTED AT [address] (test ixee=5528) [place] [address] RAD, CHEST, 1 VIEW, NON [id number] 07:53:00Reason for exam:->pulmonary edemaShould this be performed [...] MDReport Verified Date/Time: 12/19/2018 07:53:09 [facility] Rad[facility] [id number] 03:56:00 Test Item Value Reference Range Comments PHOSPHORUS (BEAKER) (test rghy=850) 2.4 mg/dL 2.3-4.7 [id number] 03:56:00 Test Item Value Reference Range Comments MAGNESIUM (BEAKER) (test kero=954) 2.0 mg/dL 1.6-2.6 BASIC METABOLIC [id number] 03:56:00 Test Item Value Reference Range Comments SODIUM (BEAKER) (test 139 meq/L 136-145 mzhk=939) POTASSIUM (BEAKER) (test 3.9 meq/L 3.5-5.1 txpv=381) CHLORIDE (BEAKER) (test 106 meq/L 98-107 qmkr=049) CO2 (BEAKER) (test 27 meq/L 22-29 kcrb=441) BLOOD UREA NITROGEN 25 mg/dL 7-21 (BEAKER) (test pcex=120) CREATININE (BEAKER) (test 0.90 mg/dL 0.57-1.25 adyo=508) GLUCOSE RANDOM (BEAKER) 116 mg/dL 70-105 (test izjm=664) CALCIUM (BEAKER) (test 8.1 mg/dL 8.4-10.2 zdjh=960) EGFR (BEAKER) (test 83 mL/min/1.73 sq m ESTIMATED GFR IS NOT hxgp=5473) ACCURATE CREATININE CLEARANCE IN PREDICTING GLOMERULAR FILTRATION RATE. ESTIMATED GFR IS NOT APPLICABLE FOR DIALYSIS PATIENTS. CBC (HEMOGRAM ONLY)2018-12-19 03:34:00 Test Item Value Reference Range Comments WHITE BLOOD CELL COUNT (BEAKER) (test tbqf=369) 13.0 K/ L 3.5-10.5 RED BLOOD CELL COUNT (BEAKER) (test qaml=051) 3.63 M/ L 4.63-6.08 HEMOGLOBIN (BEAKER) (test mwyw=686) 9.5 GM/DL 13.7-17.5 HEMATOCRIT (BEAKER) (test qjmo=957) 30.4 % 40.1-51.0 MEAN CORPUSCULAR VOLUME (BEAKER) (test fpkw=890) 83.7 fL 79.0-92.2 MEAN CORPUSCULAR HEMOGLOBIN (BEAKER) (test 26.2 pg 25.7-32.2 bgaw=403) MEAN CORPUSCULAR HEMOGLOBIN CONC (BEAKER) (test 31.3 GM/DL 32.3-36.5 yewa=019) RED CELL DISTRIBUTION WIDTH (BEAKER) (test 14.9 % 11.6-14.4 nfqq=767) PLATELET COUNT (BEAKER) (test jnuw=059) 149 K/CU MM 150-450 MEAN PLATELET VOLUME (BEAKER) (test ijoh=089) 11.6 fL 9.4-12.4 NUCLEATED RED BLOOD CELLS (BEAKER) (test 0 /100 WBC 0-0 tzhl=410) CALCIUM, [id number] 03:29:00 Test Item Value Reference Range Comments CALCIUM IONIZED (BEAKER) (test tovw=591) 1.10 mmol/L 1.12-1.27 PH, BLOOD (BEAKER) (test mjys=6274) 7.47 POCT-GLUCOSE [id number] 22:30:00 Test Item Value Reference Range Comments POC-GLUCOSE METER (BEAKER) 115 mg/dL 70-110 TESTED AT [facility] [address] [facility] (test jnwv=0082) [facility] [address] [id number] 20:25:00 Test Item Value Reference Range Comments MAGNESIUM (BEAKER) (test wlyy=921) 2.1 mg/dL 1.6-2.6 BASIC METABOLIC [id number] 20:25:00 Test Item Value Reference Range Comments SODIUM (BEAKER) (test 137 meq/L 136-145 hvsx=016) POTASSIUM (BEAKER) (test 4.1 meq/L 3.5-5.1 vpra=948) CHLORIDE (BEAKER) (test 105 meq/L 98-107 ehmx=370) CO2 (BEAKER) (test 26 meq/L 22-29 wkmt=370) BLOOD UREA NITROGEN 25 mg/dL 7-21 (BEAKER) (test aljl=854) CREATININE (BEAKER) (test 0.91 mg/dL 0.57-1.25 fzte=826) GLUCOSE RANDOM (BEAKER) 180 mg/dL 70-105 (test cybp=226) CALCIUM (BEAKER) (test 8.0 mg/dL 8.4-10.2 wvfe=230) EGFR (BEAKER) (test 82 mL/min/1.73 sq m ESTIMATED GFR IS NOT ocxq=9117) ACCURATE CREATININE CLEARANCE IN PREDICTING GLOMERULAR FILTRATION RATE. ESTIMATED GFR IS NOT APPLICABLE FOR DIALYSIS PATIENTS. CALCIUM, [id number] 20:03:00 Test Item Value Reference Range Comments CALCIUM IONIZED (BEAKER) (test hrji=869) 1.14 mmol/L 1.12-1.27 PH, BLOOD (BEAKER) (test bfzm=9478) 7.48 POCT-GLUCOSE [id number] 17:42:00 Test Item Value Reference Range Comments POC-GLUCOSE METER (BEAKER) 125 mg/dL 70-110 TESTED AT [address] (test uedn=7162) [facility] [address] [id number] 13:50:00 Test Item Value Reference Range Comments MAGNESIUM (BEAKER) (test 2.1 mg/dL 1.6-2.6 Specimen slightly hemolyzed fdoj=134) Check Serum Magnesium level 2 hours after IV magnesium replacement.Check Serum Potassium level 2 hours after oral potassium replacement completed or 30 min after intravenous potassium replacement.[id number] 13:50:00 Test Item Value Reference Range Comments POTASSIUM (BEAKER) (test 4.4 meq/L 3.5-5.1 Specimen slightly hemolyzed fqqb=603) Check Serum Magnesium level 2 hours after IV magnesium replacement.Check Serum Potassium level 2 hours after oral potassium replacement completed or 30 min after intravenous potassium replacement.POCT-GLUCOSE [id number] 12:31:00 Test Item Value Reference Range Comments POC-GLUCOSE METER (BEAKER) 165 mg/dL 70-110 TESTED AT [facility] [address] [facility] (test cirm=6166) [facility] [address] RAD, CHEST, 1 VIEW, NON [id number] 08:44:00Reason for exam:->SOBShould this be performed at [...] Verified Date/Time: 12/18/2018 08:44 :28 Reading [facility] Rad[facility] POCT-GLUCOSE [id number] 08:02:00 Test Item Value Reference Range Comments POC-GLUCOSE METER (BEAKER) 154 mg/dL 70-110 TESTED AT [address] (test qgvg=9742) [facility] [address] BLOOD GAS, [id number] 07:34:00 Test Item Value Reference Range Comments PH ARTERIAL (BEAKER) (test koqi=544) 7.46 7.35-7.45 PCO2 ARTERIAL (BEAKER) (test czxc=964) 37 mmHg 35-45 PO2 ARTERIAL (BEAKER) (test qtsu=790) 69 mmHg 80-90 O2 SATURATION ARTERIAL (BEAKER) (test bsvd=863) 94.8 % 96.0-97.0 HCO3 ARTERIAL (BEAKER) (test uzmp=157) 26 mmol/L 21-29 BASE EXCESS ARTERIAL (BEAKER) (test ysej=156) 1.8 mmol/L -2.0-3.0 PATIENT TEMPERATURE (BEAKER) (test atoz=6507) 37.0 C FIO2 (BEAKER) (test nzab=8263) 40.0 % [id number] 05:04:00 Test Item Value Reference Range Comments PHOSPHORUS (BEAKER) (test jwpz=264) 2.1 mg/dL 2.3-4.7 [id number] 05:04:00 Test Item Value Reference Range Comments MAGNESIUM (BEAKER) (test ensz=369) 2.0 mg/dL 1.6-2.6 BASIC METABOLIC [id number] 05:04:00 Test Item Value Reference Range Comments SODIUM (BEAKER) (test 136 meq/L 136-145 hhco=987) POTASSIUM (BEAKER) (test 4.4 meq/L 3.5-5.1 yuwc=226) CHLORIDE (BEAKER) (test 107 meq/L 98-107 wgds=888) CO2 (BEAKER) (test 24 meq/L 22-29 hdgv=026) BLOOD UREA NITROGEN 22 mg/dL 7-21 (BEAKER) (test usks=066) CREATININE (BEAKER) (test 0.89 mg/dL 0.57-1.25 wygz=536) GLUCOSE RANDOM (BEAKER) 135 mg/dL 70-105 (test xyuq=588) CALCIUM (BEAKER) (test 8.2 mg/dL 8.4-10.2 wjaf=306) EGFR (BEAKER) (test 84 mL/min/1.73 sq m ESTIMATED GFR IS NOT yeah=8515) ACCURATE CREATININE CLEARANCE IN PREDICTING GLOMERULAR FILTRATION RATE. ESTIMATED GFR IS NOT APPLICABLE FOR DIALYSIS PATIENTS. CBC (HEMOGRAM ONLY)2018-12-18 04:28:00 Test Item Value Reference Range Comments WHITE BLOOD CELL COUNT (BEAKER) (test egdg=854) 17.0 K/ L 3.5-10.5 RED BLOOD CELL COUNT (BEAKER) (test ouxd=571) 3.89 M/ L 4.63-6.08 HEMOGLOBIN (BEAKER) (test jhon=829) 10.2 GM/DL 13.7-17.5 HEMATOCRIT (BEAKER) (test vqhd=315) 32.9 % 40.1-51.0 MEAN CORPUSCULAR VOLUME (BEAKER) (test tirf=572) 84.6 fL 79.0-92.2 MEAN CORPUSCULAR HEMOGLOBIN (BEAKER) (test 26.2 pg 25.7-32.2 ukvz=205) MEAN CORPUSCULAR HEMOGLOBIN CONC (BEAKER) (test 31.0 GM/DL 32.3-36.5 wpcb=603) RED CELL DISTRIBUTION WIDTH (BEAKER) (test 14.8 % 11.6-14.4 kgzj=359) PLATELET COUNT (BEAKER) (test hhvw=529) 143 K/CU MM 150-450 MEAN PLATELET VOLUME (BEAKER) (test frzd=986) 12.2 fL 9.4-12.4 NUCLEATED RED BLOOD CELLS (BEAKER) (test 0 /100 WBC 0-0 xazb=149) BLOOD GAS, [id number] 03:26:00 Test Item Value Reference Range Comments PH ARTERIAL (BEAKER) (test zwhk=747) 7.45 7.35-7.45 PCO2 ARTERIAL (BEAKER) (test cyzb=210) 37 mmHg 35-45 PO2 ARTERIAL (BEAKER) (test jews=462) 100 mmHg 80-90 O2 SATURATION ARTERIAL (BEAKER) (test mwde=612) 97.9 % 96.0-97.0 HCO3 ARTERIAL (BEAKER) (test pxrz=170) 25 mmol/L 21-29 BASE EXCESS ARTERIAL (BEAKER) (test nhjf=244) 1.3 mmol/L -2.0-3.0 PATIENT TEMPERATURE (BEAKER) (test xrzb=2213) 36.8 C FIO2 (BEAKER) (test qubo=3924) 40.0 % CALCIUM, [id number] 03:26:00 Test Item Value Reference Range Comments CALCIUM IONIZED (BEAKER) (test xfwk=776) 1.13 mmol/L 1.12-1.27 PH, BLOOD (BEAKER) (test pbbf=6044) 7.45 POCT-GLUCOSE [id number] 21:30:00 Test Item Value Reference Range Comments POC-GLUCOSE METER (BEAKER) 129 mg/dL 70-110 TESTED AT [address] (test jrhh=8317) [facility] [id number] POCT-GLUCOSE [id number] 18:18:00 Test Item Value Reference Range Comments POC-GLUCOSE METER (BEAKER) 165 mg/dL 70-110 TESTED AT [address] (test zjmq=5277) [facility] [address] BLOOD GAS, [id number] 18:09:00 Test Item Value Reference Range Comments PH ARTERIAL (BEAKER) (test ckdw=274) 7.47 7.35-7.45 PCO2 ARTERIAL (BEAKER) (test pcdq=172) 34 mmHg 35-45 PO2 ARTERIAL (BEAKER) (test wonk=135) 79 mmHg 80-90 O2 SATURATION ARTERIAL (BEAKER) (test ovhd=440) 96.4 % 96.0-97.0 HCO3 ARTERIAL (BEAKER) (test qnle=928) 24 mmol/L 21-29 BASE EXCESS ARTERIAL (BEAKER) (test bzkl=131) 1.0 mmol/L -2.0-3.0 PATIENT TEMPERATURE (BEAKER) (test lyxf=4860) 37.0 C FIO2 (BEAKER) (test rblz=7587) 40.0 % POCT-GLUCOSE [id number] 14:03:00 Test Item Value Reference Range Comments POC-GLUCOSE METER (BEAKER) 212 mg/dL 70-110 TESTED AT [address] (test xnyw=6849) [facility] [address] RAD, CHEST, 1 VIEW, NON [id number] 07:48:00Reason for exam:->intubated, post opShould this be performed at the bedside?->YesFINAL REPORT Chest x-ray Clinical History: intubated, post op Comparison: December Views: Two AP lordotic Chest x-ray:The cardiac and mediastinal silhouettes are within normal limits. There is no evidence of a pneumothorax. There is evidence of a small left pleural effusion. The patient's right internal jugular [place] catheter has been removed. There remains a right internal jugular sheath. The patient has been extubated with interval removal of a nasogastric tube. Sternotomy changes are present with multiple chest tubes. There are increased interstitial findings. Subsegmental atelectasis in left lower lobe retrocardiac space is suspected. Increased interstitial pulmonary edema is favored. Signed: Esther Pacheco Verified Date/Time: 07:48:21 Reading [facility] Radiology Reading Room CALCIUM, [id number] 04:51:00 Test Item Value Reference Range Comments CALCIUM IONIZED (BEAKER) (test jazt=063) 1.13 mmol/L 1.12-1.27 PH, BLOOD (BEAKER) (test xcnv=4522) 7.48 [id number] 03:42:00 Test Item Value Reference Range Comments PHOSPHORUS (BEAKER) (test zaui=190) 2.2 mg/dL 2.3-4.7 [id number] 03:42:00 Test Item Value Reference Range Comments MAGNESIUM (BEAKER) (test avxo=269) 2.4 mg/dL 1.6-2.6 BASIC METABOLIC [id number] 03:42:00 Test Item Value Reference Range Comments SODIUM (BEAKER) (test 137 meq/L 136-145 txnd=204) POTASSIUM (BEAKER) (test 4.5 meq/L 3.5-5.1 xevu=316) CHLORIDE (BEAKER) (test 107 meq/L 98-107 ipyl=017) CO2 (BEAKER) (test 25 meq/L 22-29 ifxt=534) BLOOD UREA NITROGEN 20 mg/dL 7-21 (BEAKER) (test baqu=290) CREATININE (BEAKER) (test 0.81 mg/dL 0.57-1.25 nkvt=626) GLUCOSE RANDOM (BEAKER) 159 mg/dL 70-105 (test bfem=259) CALCIUM (BEAKER) (test 8.3 mg/dL 8.4-10.2 drjg=709) EGFR (BEAKER) (test 94 mL/min/1.73 sq m ESTIMATED GFR IS NOT tqdv=9697) ACCURATE CREATININE CLEARANCE IN PREDICTING GLOMERULAR FILTRATION RATE. ESTIMATED GFR IS NOT APPLICABLE FOR DIALYSIS PATIENTS. BLOOD GAS, [id number] 03:41:00 Test Item Value Reference Range Comments PH ARTERIAL (BEAKER) (test kkwk=006) 7.46 7.35-7.45 PCO2 ARTERIAL (BEAKER) (test wnos=988) 38 mmHg 35-45 PO2 ARTERIAL (BEAKER) (test yhaj=606) 112 mmHg 80-90 O2 SATURATION ARTERIAL (BEAKER) (test fnui=765) 98.2 % 96.0-97.0 HCO3 ARTERIAL (BEAKER) (test eukd=438) 26 mmol/L 21-29 BASE EXCESS ARTERIAL (BEAKER) (test uohc=117) 2.7 mmol/L -2.0-3.0 PATIENT TEMPERATURE (BEAKER) (test kixc=7766) 37.9 C FIO2 (BEAKER) (test wroi=5486) 40.0 % OXYGEN SATURATION, [id number] 03:37:00 Test Item Value Reference Range Comments O2 SATURATION (MEASURED) (BEAKER) (test dkkr=7624) 58.0 % CBC (HEMOGRAM ONLY)2018-12-17 03:18:00 Test Item Value Reference Range Comments WHITE BLOOD CELL COUNT (BEAKER) (test ayfx=425) 18.4 K/ L 3.5-10.5 RED BLOOD CELL COUNT (BEAKER) (test albz=315) 4.11 M/ L 4.63-6.08 HEMOGLOBIN (BEAKER) (test rcuy=044) 10.8 GM/DL 13.7-17.5 HEMATOCRIT (BEAKER) (test gqeu=131) 34.4 % 40.1-51.0 MEAN CORPUSCULAR VOLUME (BEAKER) (test qyxw=998) 83.7 fL 79.0-92.2 MEAN CORPUSCULAR HEMOGLOBIN (BEAKER) (test 26.3 pg 25.7-32.2 upbw=830) MEAN CORPUSCULAR HEMOGLOBIN CONC (BEAKER) (test 31.4 GM/DL 32.3-36.5 yonu=338) RED CELL DISTRIBUTION WIDTH (BEAKER) (test 14.6 % 11.6-14.4 vznw=811) PLATELET COUNT (BEAKER) (test lonq=991) 141 K/CU MM 150-450 MEAN PLATELET VOLUME (BEAKER) (test aoic=233) 11.6 fL 9.4-12.4 NUCLEATED RED BLOOD CELLS (BEAKER) (test 0 /100 WBC 0-0 bdxo=669) [id number] 22:06:00 Test Item Value Reference Range Comments MAGNESIUM (BEAKER) (test nsov=321) 2.0 mg/dL 1.6-2.6 BLOOD GAS, [id number] 21:50:00 Test Item Value Reference Range Comments PH ARTERIAL (BEAKER) (test xvwt=913) 7.54 7.35-7.45 PCO2 ARTERIAL (BEAKER) (test clvh=401) 28 mmHg 35-45 PO2 ARTERIAL (BEAKER) (test wduf=492) 50 mmHg 80-90 O2 SATURATION ARTERIAL (BEAKER) (test oxud=740) 94.9 % 96.0-97.0 HCO3 ARTERIAL (BEAKER) (test ozwf=288) 25 mmol/L 21-29 BASE EXCESS ARTERIAL (BEAKER) (test svsw=022) 1.5 mmol/L -2.0-3.0 PATIENT TEMPERATURE (BEAKER) (test ktta=9068) 32.1 C FIO2 (BEAKER) (test bdzg=6119) 100.0 % GLUCOSE-STAT [id number] 21:50:00 Test Item Value Reference Range Comments GLUCOSE RANDOM (BEAKER) (test zsbh=404) 220 mg/dL 70-110 HGB/HCT (H&H) - STAT [id number] 21:50:00 Test Item Value Reference Range Comments HEMOGLOBIN (BEAKER) (test mqxr=712) 11.4 g/dL 13.0-16.8 HEMATOCRIT (BEAKER) (test aovh=544) 34.0 % 40.0-50.0 OXYGEN SATURATION, [id number] 21:50:00 Test Item Value Reference Range Comments O2 SATURATION (MEASURED) (BEAKER) (test oolm=2810) 58.1 % SODIUM NA-STAT [id number] 21:49:00 Test Item Value Reference Range Comments SODIUM (BEAKER) (test rmuz=393) 135 meq/L 135-148 POTASSIUM-STAT [id number] 21:49:00 Test Item Value Reference Range Comments POTASSIUM (BEAKER) (test cpuv=807) 4.2 meq/L 3.6-5.5 CALCIUM, [id number] 21:49:00 Test Item Value Reference Range Comments CALCIUM IONIZED (BEAKER) (test pvdv=291) 1.12 mmol/L 1.12-1.27 PH, BLOOD (BEAKER) (test yhha=1785) 7.47 POCT-GLUCOSE [id number] 18:28:00 Test Item Value Reference Range Comments POC-GLUCOSE METER (BEAKER) 138 mg/dL 70-110 TESTED AT [facility] [address] (test mrwu=8337) [facility] [address] POCT-GLUCOSE [id number] 12:28:00 Test Item Value Reference Range Comments POC-GLUCOSE METER (BEAKER) 111 mg/dL 70-110 TESTED AT [address] (test scdd=8494) [facility] [address] OXYGEN SATURATION, [id number] 09:45:00 Test Item Value Reference Range Comments O2 SATURATION (MEASURED) (BEAKER) (test vcdv=9432) 64.3 % POCT-GLUCOSE [id number] 09:33:00 Test Item Value Reference Range Comments POC-GLUCOSE METER (BEAKER) 102 mg/dL 70-110 TESTED AT [address] (test fowl=9106) [facility] [address] POCT-GLUCOSE [id number] 08:51:00 Test Item Value Reference Range Comments POC-GLUCOSE METER (BEAKER) 98 mg/dL 70-110 TESTED AT [address] (test uspa=9485) [facility] [address] POCT-GLUCOSE [id number] 08:51:00 Test Item Value Reference Range Comments POC-GLUCOSE METER (BEAKER) 121 mg/dL 70-110 TESTED AT [address] (test ccdd=9438) [facility] [address] LACTIC ACID, [id number] 07:52:00 Test Item Value Reference Range Comments LACTATE BLOOD ARTERIAL (2) 0.9 mmol/L 0.5-2.2 Specimen slightly hemolyzed (BEAKER) (test eqef=8733) OXYGEN SATURATION, [id number] 07:18:00 Test Item Value Reference Range Comments O2 SATURATION (MEASURED) (BEAKER) (test lmap=3625) 96.4 % RAD, CHEST, 1 VIEW, NON [id number] 06:10:00Reason for exam:->intubated, post opShould this be [...] Signed: Jaime Rojas Verified Date/Time: 12/16/2018 06:10:03 [id number] 04:05:00 Test Item Value Reference Range Comments PHOSPHORUS (BEAKER) (test kmvt=099) 3.2 mg/dL 2.3-4.7 [id number] 04:05:00 Test Item Value Reference Range Comments MAGNESIUM (BEAKER) (test yjor=212) 2.3 mg/dL 1.6-2.6 BASIC METABOLIC [id number] 04:05:00 Test Item Value Reference Range Comments SODIUM (BEAKER) (test 138 meq/L 136-145 gbih=403) POTASSIUM (BEAKER) (test 3.8 meq/L 3.5-5.1 jwyh=951) CHLORIDE (BEAKER) (test 104 meq/L 98-107 emge=323) CO2 (BEAKER) (test 28 meq/L 22-29 srdj=691) BLOOD UREA NITROGEN 27 mg/dL 7-21 (BEAKER) (test mqnh=012) CREATININE (BEAKER) (test 0.93 mg/dL 0.57-1.25 gojx=831) GLUCOSE RANDOM (BEAKER) 103 mg/dL 70-105 (test scns=989) CALCIUM (BEAKER) (test 8.1 mg/dL 8.4-10.2 mthc=356) EGFR (BEAKER) (test 80 mL/min/1.73 sq m ESTIMATED GFR IS NOT glys=5178) ACCURATE CREATININE CLEARANCE IN PREDICTING GLOMERULAR FILTRATION RATE. ESTIMATED GFR IS NOT APPLICABLE FOR DIALYSIS PATIENTS. LACTIC ACID, [id number] 04:00:00 Test Item Value Reference Range Comments LACTATE BLOOD ARTERIAL (2) (BEAKER) (test 0.9 mmol/L 0.5-2.2 zusi=1499) BLOOD GAS, [id number] 03:48:00 Test Item Value Reference Range Comments PH ARTERIAL (BEAKER) (test hfqr=931) 7.43 7.35-7.45 PCO2 ARTERIAL (BEAKER) (test lpha=097) 43 mmHg 35-45 PO2 ARTERIAL (BEAKER) (test wrvs=931) 113 mmHg 80-90 O2 SATURATION ARTERIAL (BEAKER) (test zvip=378) 98.3 % 96.0-97.0 HCO3 ARTERIAL (BEAKER) (test rhjg=431) 29 mmol/L 21-29 BASE EXCESS ARTERIAL (BEAKER) (test upkv=793) 3.6 mmol/L -2.0-3.0 PATIENT TEMPERATURE (BEAKER) (test tjoa=0660) 36.4 C FIO2 (BEAKER) (test heck=1498) 40.0 % OXYGEN SATURATION, [id number] 03:45:00 Test Item Value Reference Range Comments O2 SATURATION (MEASURED) (BEAKER) (test zdar=8127) 64.9 % CBC (HEMOGRAM ONLY)2018-12-16 03:38:00 Test Item Value Reference Range Comments WHITE BLOOD CELL COUNT (BEAKER) (test ddfu=490) 16.8 K/ L 3.5-10.5 RED BLOOD CELL COUNT (BEAKER) (test xwru=632) 4.05 M/ L 4.63-6.08 HEMOGLOBIN (BEAKER) (test jalr=455) 10.6 GM/DL 13.7-17.5 HEMATOCRIT (BEAKER) (test zmzg=025) 33.6 % 40.1-51.0 MEAN CORPUSCULAR VOLUME (BEAKER) (test kidl=632) 83.0 fL 79.0-92.2 MEAN CORPUSCULAR HEMOGLOBIN (BEAKER) (test 26.2 pg 25.7-32.2 xmby=287) MEAN CORPUSCULAR HEMOGLOBIN CONC (BEAKER) (test 31.5 GM/DL 32.3-36.5 wzka=172) RED CELL DISTRIBUTION WIDTH (BEAKER) (test 14.0 % 11.6-14.4 kfdc=907) PLATELET COUNT (BEAKER) (test qkjh=761) 160 K/CU MM 150-450 MEAN PLATELET VOLUME (BEAKER) (test cqyv=184) 11.0 fL 9.4-12.4 NUCLEATED RED BLOOD CELLS (BEAKER) (test 0 /100 WBC 0-0 sroy=900) [id number] 23:46:00 Test Item Value Reference Range Comments MAGNESIUM (BEAKER) (test 2.7 mg/dL 1.6-2.6 Specimen slightly hemolyzed lnhz=684) [id number] 23:46:00 Test Item Value Reference Range Comments POTASSIUM (BEAKER) (test 4.4 meq/L 3.5-5.1 Specimen slightly hemolyzed usbh=662) [id number] 23:46:00 Test Item Value Reference Range Comments GLUCOSE RANDOM (BEAKER) (test ygrg=220) 131 mg/dL 70-105 BASIC METABOLIC [id number] 23:46:00 Test Item Value Reference Range Comments SODIUM (BEAKER) (test 137 meq/L 136-145 liea=296) POTASSIUM (BEAKER) (test 4.4 meq/L 3.5-5.1 Specimen slightly qesq=850) hemolyzed CHLORIDE (BEAKER) (test 103 meq/L 98-107 kbic=118) CO2 (BEAKER) (test 27 meq/L 22-29 lbyc=303) BLOOD UREA NITROGEN 29 mg/dL 7-21 (BEAKER) (test msft=217) CREATININE (BEAKER) (test 1.05 mg/dL 0.57-1.25 Specimen slightly gyac=620) hemolyzed GLUCOSE RANDOM (BEAKER) 131 mg/dL 70-105 (test otti=942) CALCIUM (BEAKER) (test 8.2 mg/dL 8.4-10.2 jgrt=842) EGFR (BEAKER) (test 69 mL/min/1.73 sq m ESTIMATED GFR IS NOT mmuu=9633) ACCURATE CREATININE CLEARANCE IN PREDICTING GLOMERULAR FILTRATION RATE. ESTIMATED GFR IS NOT APPLICABLE FOR DIALYSIS PATIENTS. LACTIC ACID, [id number] 23:41:00 Test Item Value Reference Range Comments LACTATE BLOOD ARTERIAL (2) 0.9 mmol/L 0.5-2.2 Specimen slightly hemolyzed (BEAKER) (test dtvh=6588) CBC W/PLT COUNT & AUTO [id number] 23:30:00 Test Item Value Reference Range Comments WHITE BLOOD CELL COUNT (BEAKER) (test tjaq=965) 26.0 K/ L 3.5-10.5 RED BLOOD CELL COUNT (BEAKER) (test thps=812) 4.36 M/ L 4.63-6.08 HEMOGLOBIN (BEAKER) (test sykf=010) 11.5 GM/DL 13.7-17.5 HEMATOCRIT (BEAKER) (test wqmn=976) 36.1 % 40.1-51.0 MEAN CORPUSCULAR VOLUME (BEAKER) (test ogmc=876) 82.8 fL 79.0-92.2 MEAN CORPUSCULAR HEMOGLOBIN (BEAKER) (test 26.4 pg 25.7-32.2 rjlx=808) MEAN CORPUSCULAR HEMOGLOBIN CONC (BEAKER) (test 31.9 GM/DL 32.3-36.5 kihe=762) RED CELL DISTRIBUTION WIDTH (BEAKER) (test 14.0 % 11.6-14.4 rghe=102) PLATELET COUNT (BEAKER) (test nspt=366) 250 K/CU MM 150-450 MEAN PLATELET VOLUME (BEAKER) (test vcea=633) 11.0 fL 9.4-12.4 NUCLEATED RED BLOOD CELLS (BEAKER) (test 0 /100 WBC 0-0 oxff=189) NEUTROPHILS RELATIVE PERCENT (BEAKER) (test 89 % nbtg=313) LYMPHOCYTES RELATIVE PERCENT (BEAKER) (test 3 % hojw=571) MONOCYTES RELATIVE PERCENT (BEAKER) (test 7 % jdhj=078) EOSINOPHILS RELATIVE PERCENT (BEAKER) (test 0 % cuup=608) BASOPHILS RELATIVE PERCENT (BEAKER) (test 0 % jwyx=216) NEUTROPHILS ABSOLUTE COUNT (BEAKER) (test 23.10 K/ L 1.78-5.38 ysfc=552) LYMPHOCYTES ABSOLUTE COUNT (BEAKER) (test 0.73 K/ L 1.32-3.57 rjjp=131) MONOCYTES ABSOLUTE COUNT (BEAKER) (test 1.83 K/ L 0.30-0.82 qagu=611) EOSINOPHILS ABSOLUTE COUNT (BEAKER) (test 0.00 K/ L 0.04-0.54 vdfw=276) BASOPHILS ABSOLUTE COUNT (BEAKER) (test 0.06 K/ L 0.01-0.08 wceu=245) IMMATURE GRANULOCYTES-RELATIVE PERCENT (BEAKER) 1 % 0-1 (test brcw=6400) BLOOD GAS, [id number] 23:23:00 Test Item Value Reference Range Comments PH ARTERIAL (BEAKER) (test xkyf=041) 7.43 7.35-7.45 PCO2 ARTERIAL (BEAKER) (test cilj=715) 44 mmHg 35-45 PO2 ARTERIAL (BEAKER) (test vkev=023) 93 mmHg 80-90 O2 SATURATION ARTERIAL (BEAKER) (test tbmu=950) 97.5 % 96.0-97.0 HCO3 ARTERIAL (BEAKER) (test idhw=253) 29 mmol/L 21-29 BASE EXCESS ARTERIAL (BEAKER) (test zpjg=110) 3.7 mmol/L -2.0-3.0 PATIENT TEMPERATURE (BEAKER) (test qfsk=2404) 36.1 C FIO2 (BEAKER) (test htga=4932) 40.0 % GLUCOSE-STAT [id number] 23:23:00 Test Item Value Reference Range Comments GLUCOSE RANDOM (BEAKER) (test peig=729) 135 mg/dL 70-110 HGB/HCT (H&H) - STAT [id number] 23:23:00 Test Item Value Reference Range Comments HEMOGLOBIN (BEAKER) (test nqgf=261) 11.7 g/dL 13.0-16.8 HEMATOCRIT (BEAKER) (test yvhm=347) 34.0 % 40.0-50.0 SODIUM NA-STAT [id number] 23:22:00 Test Item Value Reference Range Comments SODIUM (BEAKER) (test vzlx=108) 137 meq/L 135-148 POTASSIUM-STAT [id number] 23:22:00 Test Item Value Reference Range Comments POTASSIUM (BEAKER) (test xxwj=609) 4.0 meq/L 3.6-5.5 CALCIUM, [id number] 23:22:00 Test Item Value Reference Range Comments CALCIUM IONIZED (BEAKER) (test tgkj=288) 1.14 mmol/L 1.12-1.27 PH, BLOOD (BEAKER) (test dbdn=8291) 7.42 OXYGEN SATURATION, [id number] 23:21:00 Test Item Value Reference Range Comments O2 SATURATION (MEASURED) (BEAKER) (test idod=2584) 73.1 % POCT-GLUCOSE [id number] 23:14:00 Test Item Value Reference Range Comments POC-GLUCOSE METER (BEAKER) 139 mg/dL 70-110 TESTED AT [address] (test fwgn=3383) [place] [address] POCT-GLUCOSE [id number] 18:37:00 Test Item Value Reference Range Comments POC-GLUCOSE METER (BEAKER) 137 mg/dL 70-110 TESTED AT [address] (test ngux=4997) [place] [address] SPUTUM CULTURE + GRAM [id number] 17:48:00 Test Item Value Reference Range Comments CULTURE (BEAKER) 4+ Burkholderia gladioli (test rpnu=3802) GRAM STAIN RESULT 1+ WBCs (BEAKER) (test mevm=2177) GRAM STAIN RESULT 0-5 epithelial cells (BEAKER) (test twkz=943154) GRAM STAIN RESULT 2+ gram positive cocci (BEAKER) (test in chains and pairs zubc=816336) GRAM STAIN RESULT 1+ gram positive cocci (BEAKER) (test in clusters fpka=786453) 4+ Normal respiratory deandra presentPOCT-GLUCOSE [id number] 17:06:00 Test Item Value Reference Range Comments POC-GLUCOSE METER (BEAKER) 129 mg/dL 70-110 TESTED AT [address] (test whym=9645) [place] [id number] POCT-GLUCOSE [id number] 15:21:00 Test Item Value Reference Range Comments POC-GLUCOSE METER (BEAKER) 152 mg/dL 70-110 TESTED AT [address] (test qvpx=2975) [place] [id number] BASIC METABOLIC [id number] 14:59:00 Test Item Value Reference Range Comments SODIUM (BEAKER) (test 137 meq/L 136-145 xczg=496) POTASSIUM (BEAKER) (test 4.2 meq/L 3.5-5.1 gxbx=138) CHLORIDE (BEAKER) (test 102 meq/L 98-107 vqju=435) CO2 (BEAKER) (test 28 meq/L 22-29 lvru=464) BLOOD UREA NITROGEN 31 mg/dL 7-21 (BEAKER) (test wtns=611) CREATININE (BEAKER) (test 1.08 mg/dL 0.57-1.25 njxf=780) GLUCOSE RANDOM (BEAKER) 183 mg/dL 70-105 (test rlgf=486) CALCIUM (BEAKER) (test 7.9 mg/dL 8.4-10.2 mybu=354) EGFR (BEAKER) (test 67 mL/min/1.73 sq m ESTIMATED GFR IS NOT lzct=5242) ACCURATE CREATININE CLEARANCE IN PREDICTING GLOMERULAR FILTRATION RATE. ESTIMATED GFR IS NOT APPLICABLE FOR DIALYSIS PATIENTS. CBC W/PLT COUNT & AUTO [id number] 14:49:00 Test Item Value Reference Range Comments WHITE BLOOD CELL COUNT (BEAKER) (test wbiy=011) 22.5 K/ L 3.5-10.5 RED BLOOD CELL COUNT (BEAKER) (test ccfl=527) 4.32 M/ L 4.63-6.08 HEMOGLOBIN (BEAKER) (test xhnb=967) 11.4 GM/DL 13.7-17.5 HEMATOCRIT (BEAKER) (test qqvo=950) 36.0 % 40.1-51.0 MEAN CORPUSCULAR VOLUME (BEAKER) (test bkxt=253) 83.3 fL 79.0-92.2 MEAN CORPUSCULAR HEMOGLOBIN (BEAKER) (test 26.4 pg 25.7-32.2 pkzy=782) MEAN CORPUSCULAR HEMOGLOBIN CONC (BEAKER) (test 31.7 GM/DL 32.3-36.5 ucte=272) RED CELL DISTRIBUTION WIDTH (BEAKER) (test 13.8 % 11.6-14.4 orch=900) PLATELET COUNT (BEAKER) (test nqyt=744) 182 K/CU MM 150-450 MEAN PLATELET VOLUME (BEAKER) (test urnu=352) 11.0 fL 9.4-12.4 NUCLEATED RED BLOOD CELLS (BEAKER) (test 0 /100 WBC 0-0 yorx=544) (CELLAVISION MANUAL DIFF)2018-12-15 14:49:00 Test Item Value Reference Range Comments NEUTROPHILS - REL (CELLAVISION)(BEAKER) (test 93 % zxng=1509) LYMPHOCYTES - REL (CELLAVISION)(BEAKER) (test 2 % zdvp=3605) MONOCYTES - REL (CELLAVISION)(BEAKER) (test 2 % xtuu=6201) MYELOCYTES - REL (CELLAVISION)(BEAKER) (test 1 % 0-0 roqf=7412) BANDS - REL (CELLAVISION)(BEAKER) (test 2 % 0-10 lnfc=8062) NEUTROPHILS - ABS (CELLAVISION)(BEAKER) (test 20.93 K/ul 1.78-5.38 mbxd=0246) LYMPHOCYTES - ABS (CELLAVISION)(BEAKER) (test 0.45 K/ul 1.32-3.57 utvb=2979) MONOCYTES - ABS (CELLAVISION)(BEAKER) (test 0.45 K/uL 0.30-0.82 spdq=4172) MYELOCYTES-ABS (CELLAVISION)(BEAKER) (test 0.23 K/uL 0.00-0.00 rubj=7049) BANDS - ABS (CELLAVISION)(BEAKER) (test 0.45 K/uL 0.00-0.80 kbsc=8906) TOTAL COUNTED (BEAKER) (test lhsw=6238) 100 WBC MORPHOLOGY (BEAKER) (test cbpx=690) Normal PLT MORPHOLOGY (BEAKER) (test nmmk=629) Normal ANISOCYTOSIS (BEAKER) (test cagl=964) 2+ moderate MICROCYTES (BEAKER) (test bkcz=793) 2+ moderate POIKILOCYTES (BEAKER) (test zefj=894) 1+ few ELLIPTOCYTES (BEAKER) (test goak=705) 1+ few ARTIFACT (CELLAVISION)(BEAKER) (test gnme=6387) Present PLATELET CONCENTRATION (CELLAVISION)(BEAKER) Adequate (test kuzt=6526) Received comment: User comments: Slide comments:RAD, CHEST, 1 VIEW, NON [id number] 14:44:00Reason for exam:->post opShould this be performed [...] MDReport Verified Date/Time: 12/15/2018 14:44:04 Reading Location: [facility] Mammo Reading Room LACTIC ACID, [id number] 14:41:00 Test Item Value Reference Range Comments LACTATE BLOOD ARTERIAL (2) (BEAKER) (test 1.2 mmol/L 0.5-2.2 mnhi=9443) [id number] 14:39:00 Test Item Value Reference Range Comments MAGNESIUM (BEAKER) (test rjau=159) 1.9 mg/dL 1.6-2.6 OXYGEN SATURATION, [id number] 14:20:00 Test Item Value Reference Range Comments O2 SATURATION (MEASURED) (BEAKER) (test ytci=6567) 62.8 % SODIUM NA-STAT [id number] 14:17:00 Test Item Value Reference Range Comments SODIUM (BEAKER) (test rbaj=067) 136 meq/L 135-148 POTASSIUM-STAT [id number] 14:17:00 Test Item Value Reference Range Comments POTASSIUM (BEAKER) (test srdx=969) 4.0 meq/L 3.6-5.5 BLOOD GAS, [id number] 14:17:00 Test Item Value Reference Range Comments PH ARTERIAL (BEAKER) (test ujuf=881) 7.38 7.35-7.45 PCO2 ARTERIAL (BEAKER) (test frcu=823) 45 mmHg 35-45 PO2 ARTERIAL (BEAKER) (test lxwv=305) 128 mmHg 80-90 O2 SATURATION ARTERIAL (BEAKER) (test dxjy=049) 98.6 % 96.0-97.0 HCO3 ARTERIAL (BEAKER) (test tkhh=360) 27 mmol/L 21-29 BASE EXCESS ARTERIAL (BEAKER) (test lcze=472) 0.6 mmol/L -2.0-3.0 PATIENT TEMPERATURE (BEAKER) (test evjh=1553) 35.7 C FIO2 (BEAKER) (test samg=5832) 50.0 % GLUCOSE-STAT [id number] 14:17:00 Test Item Value Reference Range Comments GLUCOSE RANDOM (BEAKER) (test vmrd=705) 181 mg/dL 70-110 HGB/HCT (H&H) - STAT [id number] 14:17:00 Test Item Value Reference Range Comments HEMOGLOBIN (BEAKER) (test rryn=224) 11.5 g/dL 13.0-16.8 HEMATOCRIT (BEAKER) (test xomz=642) 34.0 % 40.0-50.0 [id number] 13:03:00 Test Item Value Reference Range Comments ACTIVATED CLOTTING TIME 114 sec TESTED AT [facility] [address] [place] [address] (BEAKER) (test opas=291) [place] [address] [id number] 13:02:00 Test Item Value Reference Range Comments ACTIVATED CLOTTING TIME 472 sec TESTED AT [address] ([facility]) (test ersc=541) [place] [address] [id number] 13:02:00 Test Item Value Reference Range Comments ACTIVATED CLOTTING TIME 378 sec TESTED AT [address] ([facility]) (test neri=016) [place] [address] [id number] 13:02:00 Test Item Value Reference Range Comments ACTIVATED CLOTTING TIME 428 sec TESTED AT [address] ([facility]) (test bqbu=788) [place] [address] [id number] 13:02:00 Test Item Value Reference Range Comments ACTIVATED CLOTTING TIME 483 sec TESTED AT [address] ([facility]) (test tavq=833) [place] [address] [id number] 12:13:00 Test Item Value Reference Range Comments FIBRINOGEN LEVEL ([facility]) (test ruoy=997) 354 mg/dl 225-434 [id number] 12:13:00 Test Item Value Reference Range Comments PARTIAL THROMBOPLASTIN TIME ([facility]) (test 46.7 seconds 22.5-36.0 wgcy=767) PROTHROMBIN [id number] 12:12:00 Test Item Value Reference Range Comments PROTIME ([facility]) (test wdft=080) 17.7 seconds 11.9-14.2 INR ([facility]) (test jvwp=827) 1.5 <=5.9 Effective 12/03/2018: PT Reference Range ChangeNew: 11.9-14.2 Previous: 11.7- 14.7RECOMMENDED COUMADIN/WARFARIN INR THERAPY RANGESSTANDARD DOSE: 2.0-3.0 Includes: PROPHYLAXIS for venous thrombosis, systemic embolization; TREATMENT for venous thrombosis and/or pulmonary embolus.HIGH RISK: Target INR is2.5-3.5 for patients wiht mechanical heart valves.PLATELET [id number] 12:05:00 Test Item Value Reference Range Comments PLATELET COUNT ([facility]) (test xodh=516) 206 K/CU MM 150-450 POTASSIUM-STAT [id number] 11:59:00 Test Item Value Reference Range Comments POTASSIUM (BEAKER) (test kclm=022) 4.6 meq/L 3.6-5.5 CALCIUM, [id number] 11:59:00 Test Item Value Reference Range Comments CALCIUM IONIZED (BEAKER) (test yjvk=004) 1.14 mmol/L 1.12-1.27 PH, BLOOD (BEAKER) (test hiap=0436) 7.39 BLOOD GAS, [id number] 11:59:00 Test Item Value Reference Range Comments PH ARTERIAL (BEAKER) (test xcmc=743) 7.40 7.35-7.45 PCO2 ARTERIAL (BEAKER) (test bsle=641) 48 mmHg 35-45 PO2 ARTERIAL (BEAKER) (test nztc=410) 360 mmHg 80-90 O2 SATURATION ARTERIAL (BEAKER) (test rkxe=034) 99.8 % 96.0-97.0 HCO3 ARTERIAL (BEAKER) (test cxno=900) 29 mmol/L 21-29 BASE EXCESS ARTERIAL (BEAKER) (test sfij=176) 3.4 mmol/L -2.0-3.0 PATIENT TEMPERATURE (BEAKER) (test wzdi=6896) 36.0 C FIO2 (BEAKER) (test apsw=9679) 100.0 % SODIUM NA-STAT [id number] 11:59:00 Test Item Value Reference Range Comments SODIUM (BEAKER) (test lxuo=750) 133 meq/L 135-148 GLUCOSE-STAT [id number] 11:59:00 Test Item Value Reference Range Comments GLUCOSE RANDOM (BEAKER) (test tvby=025) 234 mg/dL 70-110 HGB/HCT (H&H) - STAT [id number] 11:59:00 Test Item Value Reference Range Comments HEMOGLOBIN (BEAKER) (test bwet=545) 11.6 g/dL 13.0-16.8 HEMATOCRIT (BEAKER) (test jvhv=777) 34.0 % 40.0-50.0 POCT-GLUCOSE [id number] 11:22:00 Test Item Value Reference Range Comments POC-GLUCOSE METER (BEAKER) 133 mg/dL 70-110 TESTED AT [facility] [address] [facility] (test jsao=8679) [facility] [address] BLOOD GAS, [id number] 11:20:00 Test Item Value Reference Range Comments PH ARTERIAL (BEAKER) (test uzrk=370) 7.44 7.35-7.45 PCO2 ARTERIAL (BEAKER) (test alqx=994) 46 mmHg 35-45 PO2 ARTERIAL (BEAKER) (test nrcd=317) 185 mmHg 80-90 O2 SATURATION ARTERIAL (BEAKER) (test krni=415) 99.3 % 96.0-97.0 HCO3 ARTERIAL (BEAKER) (test yixs=049) 31 mmol/L 21-29 BASE EXCESS ARTERIAL (BEAKER) (test rtjz=945) 5.7 mmol/L -2.0-3.0 PATIENT TEMPERATURE (BEAKER) (test zhnr=0915) 36.6 C FIO2 (BEAKER) (test rcvf=8073) 75.0 % SODIUM NA-STAT [id number] 11:20:00 Test Item Value Reference Range Comments SODIUM (BEAKER) (test frhw=818) 132 meq/L 135-148 GLUCOSE-STAT [id number] 11:20:00 Test Item Value Reference Range Comments GLUCOSE RANDOM (BEAKER) (test qnfq=124) 205 mg/dL 70-110 HGB/HCT (H&H) - STAT [id number] 11:20:00 Test Item Value Reference Range Comments HEMOGLOBIN (BEAKER) (test ykjw=011) 10.9 g/dL 13.0-16.8 HEMATOCRIT (BEAKER) (test vhqb=767) 32.0 % 40.0-50.0 POTASSIUM-STAT [id number] 11:19:00 Test Item Value Reference Range Comments POTASSIUM (BEAKER) (test jcmc=617) 5.2 meq/L 3.6-5.5 BLOOD GAS, [id number] 11:00:00 Test Item Value Reference Range Comments PH ARTERIAL (BEAKER) (test iojf=468) 7.44 7.35-7.45 PCO2 ARTERIAL (BEAKER) (test kppp=361) 44 mmHg 35-45 PO2 ARTERIAL (BEAKER) (test rtlc=880) 248 mmHg 80-90 O2 SATURATION ARTERIAL (BEAKER) (test jbdb=590) 99.6 % 96.0-97.0 HCO3 ARTERIAL (BEAKER) (test ifck=345) 30 mmol/L 21-29 BASE EXCESS ARTERIAL (BEAKER) (test ckhc=413) 5.0 mmol/L -2.0-3.0 PATIENT TEMPERATURE (BEAKER) (test zxgp=6408) 36.6 C FIO2 (BEAKER) (test gzco=7335) 70.0 % GLUCOSE-STAT [id number] 11:00:00 Test Item Value Reference Range Comments GLUCOSE RANDOM (BEAKER) (test eron=279) 180 mg/dL 70-110 SODIUM NA-STAT [id number] 11:00:00 Test Item Value Reference Range Comments SODIUM (BEAKER) (test myke=492) 131 meq/L 135-148 HGB/HCT (H&H) - STAT [id number] 11:00:00 Test Item Value Reference Range Comments HEMOGLOBIN (BEAKER) (test utsm=905) 9.4 g/dL 13.0-16.8 HEMATOCRIT (BEAKER) (test ecer=329) 28.0 % 40.0-50.0 POTASSIUM-STAT [id number] 10:58:00 Test Item Value Reference Range Comments POTASSIUM (BEAKER) (test cnhv=862) 5.0 meq/L 3.6-5.5 BLOOD GAS, [id number] 10:32:00 Test Item Value Reference Range Comments PH ARTERIAL (BEAKER) (test rovv=909) 7.37 7.35-7.45 PCO2 ARTERIAL (BEAKER) (test jnnl=061) 50 mmHg 35-45 PO2 ARTERIAL (BEAKER) (test npah=520) 433 mmHg 80-90 O2 SATURATION ARTERIAL (BEAKER) (test rbkc=874) 99.8 % 96.0-97.0 HCO3 ARTERIAL (BEAKER) (test nddu=505) 29 mmol/L 21-29 BASE EXCESS ARTERIAL (BEAKER) (test cbaf=918) 2.6 mmol/L -2.0-3.0 PATIENT TEMPERATURE (BEAKER) (test mqru=5282) 35.5 C FIO2 (BEAKER) (test sami=5739) 85.0 % SODIUM NA-STAT [id number] 10:32:00 Test Item Value Reference Range Comments SODIUM (BEAKER) (test bmbh=004) 127 meq/L 135-148 GLUCOSE-STAT [id number] 10:32:00 Test Item Value Reference Range Comments GLUCOSE RANDOM (BEAKER) (test wrqg=458) 132 mg/dL 70-110 HGB/HCT (H&H) - STAT [id number] 10:32:00 Test Item Value Reference Range Comments HEMOGLOBIN (BEAKER) (test fkxs=552) 10.2 g/dL 13.0-16.8 HEMATOCRIT (BEAKER) (test tngc=158) 30.0 % 40.0-50.0 POTASSIUM-STAT [id number] 10:31:00 Test Item Value Reference Range Comments POTASSIUM (BEAKER) (test zamn=736) 3.9 meq/L 3.6-5.5 CALCIUM, [id number] 08:54:00 Test Item Value Reference Range Comments CALCIUM IONIZED (BEAKER) (test wwva=863) 1.11 mmol/L 1.12-1.27 PH, BLOOD (BEAKER) (test xzfg=8147) 7.48 BLOOD GAS, [id number] 08:54:00 Test Item Value Reference Range Comments PH ARTERIAL (BEAKER) (test rcon=647) 7.50 7.35-7.45 PCO2 ARTERIAL (BEAKER) (test mump=561) 38 mmHg 35-45 PO2 ARTERIAL (BEAKER) (test pgzz=794) 306 mmHg 80-90 O2 SATURATION ARTERIAL (BEAKER) (test stni=199) 99.7 % 96.0-97.0 HCO3 ARTERIAL (BEAKER) (test bgrq=990) 29 mmol/L 21-29 BASE EXCESS ARTERIAL (BEAKER) (test wvgn=929) 5.1 mmol/L -2.0-3.0 PATIENT TEMPERATURE (BEAKER) (test siok=1020) 35.8 C FIO2 (BEAKER) (test mfkk=8130) 100.0 % SODIUM NA-STAT [id number] 08:54:00 Test Item Value Reference Range Comments SODIUM (BEAKER) (test vvpz=758) 134 meq/L 135-148 HGB/HCT (H&H) - STAT [id number] 08:54:00 Test Item Value Reference Range Comments HEMOGLOBIN (BEAKER) (test adeu=365) 13.0 g/dL 13.0-16.8 HEMATOCRIT (BEAKER) (test nhqr=241) 38.0 % 40.0-50.0 GLUCOSE-STAT [id number] 08:53:00 Test Item Value Reference Range Comments GLUCOSE RANDOM (BEAKER) (test yfbx=508) 109 mg/dL 70-110 POTASSIUM-STAT [id number] 08:53:00 Test Item Value Reference Range Comments POTASSIUM (BEAKER) (test gwqf=805) 4.0 meq/L 3.6-5.5 [id number] 02:19:00 Test Item Value Reference Range Comments PARTIAL THROMBOPLASTIN TIME (BEAKER) (test 40.0 seconds 22.5-36.0 tszw=576) [id number] 01:46:00 Test Item Value Reference Range Comments PHOSPHORUS (BEAKER) (test hynx=304) 4.5 mg/dL 2.3-4.7 [id number] 01:46:00 Test Item Value Reference Range Comments MAGNESIUM (BEAKER) (test ugoy=971) 1.9 mg/dL 1.6-2.6 BASIC METABOLIC [id number] 01:46:00 Test Item Value Reference Range Comments SODIUM (BEAKER) (test 137 meq/L 136-145 yyqe=465) POTASSIUM (BEAKER) (test 3.8 meq/L 3.5-5.1 mgjz=592) CHLORIDE (BEAKER) (test 96 meq/L 98-107 ycgz=860) CO2 (BEAKER) (test 32 meq/L 22-29 opyq=301) BLOOD UREA NITROGEN 40 mg/dL 7-21 (BEAKER) (test lfqi=955) CREATININE (BEAKER) (test 1.40 mg/dL 0.57-1.25 okiq=817) GLUCOSE RANDOM (BEAKER) 120 mg/dL 70-105 (test pudb=185) CALCIUM (BEAKER) (test 9.1 mg/dL 8.4-10.2 tcwv=415) EGFR (BEAKER) (test 50 mL/min/1.73 sq m ESTIMATED GFR IS NOT xrij=6396) ACCURATE CREATININE CLEARANCE IN PREDICTING GLOMERULAR FILTRATION RATE. ESTIMATED GFR IS NOT APPLICABLE FOR DIALYSIS PATIENTS. CBC (HEMOGRAM ONLY)2018-12-15 01:20:00 Test Item Value Reference Range Comments WHITE BLOOD CELL COUNT (BEAKER) (test fixk=944) 13.1 K/ L 3.5-10.5 RED BLOOD CELL COUNT (BEAKER) (test xzeb=805) 5.10 M/ L 4.63-6.08 HEMOGLOBIN (BEAKER) (test phsp=327) 13.4 GM/DL 13.7-17.5 HEMATOCRIT (BEAKER) (test amdt=919) 41.4 % 40.1-51.0 MEAN CORPUSCULAR VOLUME (BEAKER) (test ptog=923) 81.2 fL 79.0-92.2 MEAN CORPUSCULAR HEMOGLOBIN (BEAKER) (test 26.3 pg 25.7-32.2 mftb=505) MEAN CORPUSCULAR HEMOGLOBIN CONC (BEAKER) (test 32.4 GM/DL 32.3-36.5 sxzw=764) RED CELL DISTRIBUTION WIDTH (BEAKER) (test 13.7 % 11.6-14.4 xsmu=738) PLATELET COUNT (BEAKER) (test zqtf=970) 280 K/CU MM 150-450 MEAN PLATELET VOLUME (BEAKER) (test bdhh=082) 10.5 fL 9.4-12.4 NUCLEATED RED BLOOD CELLS (BEAKER) (test 0 /100 WBC 0-0 qgwr=742) POCT-GLUCOSE [id number] 21:22:00 Test Item Value Reference Range Comments POC-GLUCOSE METER (BEAKER) 152 mg/dL 70-110 TESTED AT [address] (test pcbf=9074) [place] [address] POCT-GLUCOSE [id number] 18:20:00 Test Item Value Reference Range Comments POC-GLUCOSE METER (BEAKER) 129 mg/dL 70-110 TESTED AT [address] (test cpnm=1951) [place] [address] BLOOD [id number] 14:01:00 Test Item Value Reference Range Comments CULTURE (BEAKER) (test prdj=3721) No growth in 5 days BLOOD [id number] 14:01:00 Test Item Value Reference Range Comments CULTURE (BEAKER) (test daex=7883) No growth in 5 days RAD, CHEST, 1 VIEW, NON [id number] 13:18:00Reason for exam:->coughFINAL REPORT AP view of [...] MDReport Verified Date/Time: 12/14/2018 13:18:23 Reading Location: [facility] B1 C013[facility] CT Body Reading Room POCT-GLUCOSE [id number] 11:57:00 Test Item Value Reference Range Comments POC-GLUCOSE METER (BEAKER) 143 mg/dL 70-110 TESTED AT [address] (test yxmv=8596) [facility] [address] POCT-GLUCOSE [id number] 08:42:00 Test Item Value Reference Range Comments POC-GLUCOSE METER (BEAKER) 114 mg/dL 70-110 TESTED AT [address] (test wogm=2717) [facility] [address] POCT-GLUCOSE [id number] 06:57:00 Test Item Value Reference Range Comments POC-GLUCOSE METER (BEAKER) 144 mg/dL 70-110 TESTED AT [address] (test huuq=3151) [facility] [address] [id number] 06:49:00 Test Item Value Reference Range Comments PHOSPHORUS (BEAKER) (test flbw=512) 4.8 mg/dL 2.3-4.7 [id number] 06:49:00 Test Item Value Reference Range Comments MAGNESIUM (BEAKER) (test izsm=834) 2.0 mg/dL 1.6-2.6 BASIC METABOLIC [id number] 06:49:00 Test Item Value Reference Range Comments SODIUM (BEAKER) (test 138 meq/L 136-145 sjww=330) POTASSIUM (BEAKER) (test 4.0 meq/L 3.5-5.1 bflr=877) CHLORIDE (BEAKER) (test 96 meq/L 98-107 ldhn=037) CO2 (BEAKER) (test 34 meq/L 22-29 kfum=966) BLOOD UREA NITROGEN 39 mg/dL 7-21 (BEAKER) (test qzvu=464) CREATININE (BEAKER) (test 1.21 mg/dL 0.57-1.25 bviu=627) GLUCOSE RANDOM (BEAKER) 116 mg/dL 70-105 (test zhhq=317) CALCIUM (BEAKER) (test 9.3 mg/dL 8.4-10.2 bcpf=269) EGFR (BEAKER) (test 59 mL/min/1.73 sq m ESTIMATED GFR IS NOT hbwe=3845) ACCURATE CREATININE CLEARANCE IN PREDICTING GLOMERULAR FILTRATION RATE. ESTIMATED GFR IS NOT APPLICABLE FOR DIALYSIS PATIENTS. [id number] 06:41:00 Test Item Value Reference Range Comments PARTIAL THROMBOPLASTIN TIME (BEAKER) (test 73.4 seconds 22.5-36.0 tosd=222) CBC (HEMOGRAM ONLY)2018-12-14 06:34:00 Test Item Value Reference Range Comments WHITE BLOOD CELL COUNT (BEAKER) (test zdln=111) 11.8 K/ L 3.5-10.5 RED BLOOD CELL COUNT (BEAKER) (test kxrn=935) 5.42 M/ L 4.63-6.08 HEMOGLOBIN (BEAKER) (test qfjb=417) 14.1 GM/DL 13.7-17.5 HEMATOCRIT (BEAKER) (test veac=645) 45.2 % 40.1-51.0 MEAN CORPUSCULAR VOLUME (BEAKER) (test xvie=351) 83.4 fL 79.0-92.2 MEAN CORPUSCULAR HEMOGLOBIN (BEAKER) (test 26.0 pg 25.7-32.2 tyfy=418) MEAN CORPUSCULAR HEMOGLOBIN CONC (BEAKER) (test 31.2 GM/DL 32.3-36.5 eifn=674) RED CELL DISTRIBUTION WIDTH (BEAKER) (test 13.8 % 11.6-14.4 mocw=920) PLATELET COUNT (BEAKER) (test hqwu=259) 282 K/CU MM 150-450 MEAN PLATELET VOLUME (BEAKER) (test icso=296) 10.9 fL 9.4-12.4 NUCLEATED RED BLOOD CELLS (BEAKER) (test 0 /100 WBC 0-0 iuwa=272) [id number] 00:03:00 Test Item Value Reference Range Comments PARTIAL THROMBOPLASTIN TIME (BEAKER) (test 75.0 seconds 22.5-36.0 urih=231) POCT-GLUCOSE [id number] 22:24:00 Test Item Value Reference Range Comments POC-GLUCOSE METER (BEAKER) 136 mg/dL 70-110 TESTED AT [address] (test crbd=8637) [place] [address] [id number] 16:32:00 Test Item Value Reference Range Comments PARTIAL THROMBOPLASTIN TIME (BEAKER) (test 100.4 seconds 22.5-36.0 zuij=151) POCT-GLUCOSE [id number] 09:13:00 Test Item Value Reference Range Comments POC-GLUCOSE METER (BEAKER) 169 mg/dL 70-110 TESTED AT [address] (test aanf=7382) [place] [address] [id number] 09:04:00 Test Item Value Reference Range Comments PARTIAL THROMBOPLASTIN TIME (BEAKER) (test 105.9 seconds 22.5-36.0 zuyj=826) SPUTUM CULTURE + GRAM [id number] 08:31:00 Test Item Value Reference Range Comments CULTURE (BEAKER) (test 4+ Normal respiratory deandra wqrh=1823) present GRAM STAIN RESULT (BEAKER) 1+ WBCs (test znpv=1957) GRAM STAIN RESULT (BEAKER) 0-5 epithelial cells (test wgdf=34976) GRAM STAIN RESULT (BEAKER) <1+ gram negative rods (test egfx=177422) GRAM STAIN RESULT (BEAKER) <1+ gram positive cocci in pairs (test aesr=327805) 3+ NormaPOCT-GLUCOSE [id number] 06:02:00 Test Item Value Reference Range Comments POC-GLUCOSE METER (BEAKER) 192 mg/dL 70-110 TESTED AT [address] (test bftu=5492) [place] [address] [id number] 05:34:00 Test Item Value Reference Range Comments PHOSPHORUS (BEAKER) (test gkgn=173) 4.3 mg/dL 2.3-4.7 [id number] 05:34:00 Test Item Value Reference Range Comments MAGNESIUM (BEAKER) (test zeqd=226) 2.0 mg/dL 1.6-2.6 BASIC METABOLIC [id number] 05:34:00 Test Item Value Reference Range Comments SODIUM (BEAKER) (test 141 meq/L 136-145 lfzb=456) POTASSIUM (BEAKER) (test 4.1 meq/L 3.5-5.1 nrnk=075) CHLORIDE (BEAKER) (test 97 meq/L 98-107 zqrv=633) CO2 (BEAKER) (test 33 meq/L 22-29 ofmb=292) BLOOD UREA NITROGEN 36 mg/dL 7-21 (BEAKER) (test gbtc=380) CREATININE (BEAKER) (test 1.19 mg/dL 0.57-1.25 ekap=139) GLUCOSE RANDOM (BEAKER) 115 mg/dL 70-105 (test dkrg=748) CALCIUM (BEAKER) (test 9.5 mg/dL 8.4-10.2 sesv=547) EGFR (BEAKER) (test 60 mL/min/1.73 sq m ESTIMATED GFR IS NOT qizl=1304) ACCURATE CREATININE CLEARANCE IN PREDICTING GLOMERULAR FILTRATION RATE. ESTIMATED GFR IS NOT APPLICABLE FOR DIALYSIS PATIENTS. CBC (HEMOGRAM ONLY)2018-12-13 04:50:00 Test Item Value Reference Range Comments WHITE BLOOD CELL COUNT (BEAKER) (test thrq=771) 14.2 K/ L 3.5-10.5 RED BLOOD CELL COUNT (BEAKER) (test hhdf=392) 5.34 M/ L 4.63-6.08 HEMOGLOBIN (BEAKER) (test rzav=361) 13.9 GM/DL 13.7-17.5 HEMATOCRIT (BEAKER) (test mnao=301) 43.8 % 40.1-51.0 MEAN CORPUSCULAR VOLUME (BEAKER) (test iewr=463) 82.0 fL 79.0-92.2 MEAN CORPUSCULAR HEMOGLOBIN (BEAKER) (test 26.0 pg 25.7-32.2 fmib=701) MEAN CORPUSCULAR HEMOGLOBIN CONC (BEAKER) (test 31.7 GM/DL 32.3-36.5 uxwb=502) RED CELL DISTRIBUTION WIDTH (BEAKER) (test 13.7 % 11.6-14.4 lmor=431) PLATELET COUNT (BEAKER) (test bquw=533) 307 K/CU MM 150-450 MEAN PLATELET VOLUME (BEAKER) (test giys=276) 11.1 fL 9.4-12.4 NUCLEATED RED BLOOD CELLS (BEAKER) (test 0 /100 WBC 0-0 afpy=853) [id number] 01:19:00 Test Item Value Reference Range Comments PARTIAL THROMBOPLASTIN TIME (BEAKER) (test 100.2 seconds 22.5-36.0 kxsm=234) POCT-GLUCOSE [id number] 00:15:00 Test Item Value Reference Range Comments POC-GLUCOSE METER (BEAKER) 171 mg/dL 70-110 TESTED AT [address] (test ogso=4775) [place] [address] BASIC METABOLIC [id number] 21:26:00 Test Item Value Reference Range Comments SODIUM (BEAKER) (test 139 meq/L 136-145 jfry=339) POTASSIUM (BEAKER) (test 4.6 meq/L 3.5-5.1 Specimen slightly osxh=954) hemolyzed CHLORIDE (BEAKER) (test 94 meq/L 98-107 amqd=594) CO2 (BEAKER) (test 32 meq/L 22-29 ratr=855) BLOOD UREA NITROGEN 39 mg/dL 7-21 (BEAKER) (test tphb=543) CREATININE (BEAKER) (test 1.54 mg/dL 0.57-1.25 Specimen slightly alcp=818) hemolyzed GLUCOSE RANDOM (BEAKER) 328 mg/dL 70-105 (test jfgt=852) CALCIUM (BEAKER) (test 9.7 mg/dL 8.4-10.2 wobn=504) EGFR (BEAKER) (test 45 mL/min/1.73 sq m ESTIMATED GFR IS NOT gecd=3349) ACCURATE CREATININE CLEARANCE IN PREDICTING GLOMERULAR FILTRATION RATE. ESTIMATED GFR IS NOT APPLICABLE FOR DIALYSIS PATIENTS. [id number] 18:15:00 Test Item Value Reference Range Comments PARTIAL THROMBOPLASTIN TIME (BEAKER) (test 105.1 seconds 22.5-36.0 fymt=927) POCT-GLUCOSE [id number] 16:30:00 Test Item Value Reference Range Comments POC-GLUCOSE METER (BEAKER) 208 mg/dL 70-110 TESTED AT [address] (test hsnt=7870) [place] [address] [id number] 10:28:00 Test Item Value Reference Range Comments PARTIAL THROMBOPLASTIN TIME (BEAKER) (test 104.3 seconds 22.5-36.0 cclv=531) BASIC METABOLIC [id number] 09:13:00 Test Item Value Reference Range Comments SODIUM (BEAKER) (test 139 meq/L 136-145 vhpw=363) POTASSIUM (BEAKER) (test 3.8 meq/L 3.5-5.1 ptqy=634) CHLORIDE (BEAKER) (test 97 meq/L 98-107 wfwo=355) CO2 (BEAKER) (test 30 meq/L 22-29 rliy=323) BLOOD UREA NITROGEN 36 mg/dL 7-21 (BEAKER) (test nloc=439) CREATININE (BEAKER) (test 1.44 mg/dL 0.57-1.25 tvue=765) GLUCOSE RANDOM (BEAKER) 183 mg/dL 70-105 (test jklu=313) CALCIUM (BEAKER) (test 9.2 mg/dL 8.4-10.2 lkbk=514) EGFR (BEAKER) (test 48 mL/min/1.73 sq m ESTIMATED GFR IS NOT brbc=7458) ACCURATE CREATININE CLEARANCE IN PREDICTING GLOMERULAR FILTRATION RATE. ESTIMATED GFR IS NOT APPLICABLE FOR DIALYSIS PATIENTS. POCT-GLUCOSE [id number] 07:38:00 Test Item Value Reference Range Comments POC-GLUCOSE METER (BEAKER) 111 mg/dL 70-110 TESTED AT [address] (test zryz=3043) [facility] [address] B-TYPE NATRIURETIC FACTOR (BNP)2018-12-12 03:24:00 Test Item Value Reference Range Comments B-TYPE NATRIURETIC PEPTIDE (BEAKER) (test 807 pg/mL 0-100 gzao=791) [id number] 03:20:00 Test Item Value Reference Range Comments PHOSPHORUS (BEAKER) (test hywa=305) 3.5 mg/dL 2.3-4.7 [id number] 03:20:00 Test Item Value Reference Range Comments MAGNESIUM (BEAKER) (test ijlr=135) 2.2 mg/dL 1.6-2.6 [id number] 03:04:00 Test Item Value Reference Range Comments PARTIAL THROMBOPLASTIN TIME (BEAKER) (test 80.2 seconds 22.5-36.0 fijn=386) CBC (HEMOGRAM ONLY)2018-12-12 02:55:00 Test Item Value Reference Range Comments WHITE BLOOD CELL COUNT (BEAKER) (test giyx=815) 14.5 K/ L 3.5-10.5 RED BLOOD CELL COUNT (BEAKER) (test gcej=090) 5.55 M/ L 4.63-6.08 HEMOGLOBIN (BEAKER) (test uytt=231) 14.2 GM/DL 13.7-17.5 HEMATOCRIT (BEAKER) (test ymxt=572) 45.1 % 40.1-51.0 MEAN CORPUSCULAR VOLUME (BEAKER) (test epkq=913) 81.3 fL 79.0-92.2 MEAN CORPUSCULAR HEMOGLOBIN (BEAKER) (test 25.6 pg 25.7-32.2 uzat=404) MEAN CORPUSCULAR HEMOGLOBIN CONC (BEAKER) (test 31.5 GM/DL 32.3-36.5 lraw=287) RED CELL DISTRIBUTION WIDTH (BEAKER) (test 13.5 % 11.6-14.4 snxc=012) PLATELET COUNT (BEAKER) (test dusi=650) 332 K/CU MM 150-450 MEAN PLATELET VOLUME (BEAKER) (test gtvg=806) 10.4 fL 9.4-12.4 NUCLEATED RED BLOOD CELLS (BEAKER) (test 0 /100 WBC 0-0 zdva=554) POCT-GLUCOSE [id number] 22:23:00 Test Item Value Reference Range Comments POC-GLUCOSE METER (BEAKER) 252 mg/dL 70-110 TESTED AT [facility] [address] [facility] (test vzhl=1871) [facility] [address] BASIC METABOLIC [id number] 21:06:00 Test Item Value Reference Range Comments SODIUM (BEAKER) (test 136 meq/L 136-145 ijjv=999) POTASSIUM (BEAKER) (test 4.2 meq/L 3.5-5.1 Specimen slightly oiox=303) hemolyzed CHLORIDE (BEAKER) (test 95 meq/L 98-107 kixo=918) CO2 (BEAKER) (test 31 meq/L 22-29 zqnq=801) BLOOD UREA NITROGEN 38 mg/dL 7-21 (BEAKER) (test gexd=626) CREATININE (BEAKER) (test 1.55 mg/dL 0.57-1.25 Specimen slightly mvql=453) hemolyzed GLUCOSE RANDOM (BEAKER) 331 mg/dL 70-105 (test peaw=557) CALCIUM (BEAKER) (test 9.0 mg/dL 8.4-10.2 gysa=349) EGFR (BEAKER) (test 44 mL/min/1.73 sq m ESTIMATED GFR IS NOT stht=4104) ACCURATE CREATININE CLEARANCE IN PREDICTING GLOMERULAR FILTRATION RATE. ESTIMATED GFR IS NOT APPLICABLE FOR DIALYSIS PATIENTS. [id number] 19:00:00 Test Item Value Reference Range Comments PARTIAL THROMBOPLASTIN TIME (BEAKER) (test 42.7 seconds 22.5-36.0 lytj=446) PET, CARDIAC PET, [id number] 18:10:00Reason for exam:->multivessel CAD; pre-ACBFINAL REPORT PROCEDURE: MYOCARDIAL METABOLISM PET IMAGING with Rest MYOCARDIAL PERFUSION PET IMAGING\XA9\[facility] CODE: [id number], [id number]: CAD, preoperative viability assessment for ACB PROTOCOL: [...] MDReport Verified Date/Time: 12/11/2018 18:10:46 Reading Location: [address] [address] [facility] Reading Room POCT-GLUCOSE [id number] 17:18:00 Test Item Value Reference Range Comments POC-GLUCOSE METER (BEAKER) 141 mg/dL 70-110 TESTED AT [address] (test mksh=0316) [facility] [address] POCT-GLUCOSE [id number] 15:52:00 Test Item Value Reference Range Comments POC-GLUCOSE METER (BEAKER) 222 mg/dL 70-110 TESTED AT [address] (test xsry=1451) [facility] [address] POCT-GLUCOSE [id number] 14:37:00 Test Item Value Reference Range Comments POC-GLUCOSE METER (BEAKER) 186 mg/dL 70-110 TESTED AT [address] (test rdrp=6263) [facility] [address] POCT-GLUCOSE [id number] 12:04:00 Test Item Value Reference Range Comments POC-GLUCOSE METER (BEAKER) 134 mg/dL 70-110 TESTED AT [address] (test xsml=6045) [facility] [address] CT, CHEST, WITHOUT [id number] 11:34:00FINAL REPORT INDICATION: Hypoxemia and shortness of [...] Verified Date/Time : 12/11/2018 11:34:47 Reading Location: [facility] Diagnostic Imaging Reading Room - [place] [id number] Electronically signed by: JARRED OBRIEN M.D. on 2018 11:34 AMPOCT-GLUCOSE [id number] 07:31:00 Test Item Value Reference Range Comments POC-GLUCOSE METER (BEAKER) 112 mg/dL 70-110 TESTED AT [address] (test cfzw=0214) [facility] [address] TROPONIN [id number] 06:39:00 Test Item Value Reference Range Comments TROPONIN I (BEAKER) (test iyll=193) 1.07 ng/mL 0.00-0.03 Troponin I (TnI) levels [...] failure, acidosis, acute neurological disease, and persistent tachyarrhythmia.[id number] 06:09:00 Test Item Value Reference Range Comments PHOSPHORUS (BEAKER) (test xuvz=830) 3.0 mg/dL 2.3-4.7 [id number] 06:09:00 Test Item Value Reference Range Comments MAGNESIUM (BEAKER) (test dyog=564) 2.0 mg/dL 1.6-2.6 BASIC METABOLIC [id number] 06:09:00 Test Item Value Reference Range Comments SODIUM (BEAKER) (test 139 meq/L 136-145 kghz=239) POTASSIUM (BEAKER) (test 3.8 meq/L 3.5-5.1 oyxi=643) CHLORIDE (BEAKER) (test 99 meq/L 98-107 rhvu=168) CO2 (BEAKER) (test 32 meq/L 22-29 bxyg=602) BLOOD UREA NITROGEN 34 mg/dL 7-21 (BEAKER) (test cybm=944) CREATININE (BEAKER) (test 1.24 mg/dL 0.57-1.25 ylgv=122) GLUCOSE RANDOM (BEAKER) 109 mg/dL 70-105 (test bppi=688) CALCIUM (BEAKER) (test 8.7 mg/dL 8.4-10.2 teaw=281) EGFR (BEAKER) (test 57 mL/min/1.73 sq m ESTIMATED GFR IS NOT mlsy=9060) ACCURATE CREATININE CLEARANCE IN PREDICTING GLOMERULAR FILTRATION RATE. ESTIMATED GFR IS NOT APPLICABLE FOR DIALYSIS PATIENTS. [id number] 06:08:00 Test Item Value Reference Range Comments PHOSPHORUS (BEAKER) (test hpqu=082) 3.0 mg/dL 2.3-4.7 B-TYPE NATRIURETIC FACTOR (BNP)2018-12-11 06:02:00 Test Item Value Reference Range Comments B-TYPE NATRIURETIC PEPTIDE (BEAKER) (test 745 pg/mL 0-100 jmzh=696) [id number] 05:47:00 Test Item Value Reference Range Comments PARTIAL THROMBOPLASTIN TIME (BEAKER) (test 80.5 seconds 22.5-36.0 qiqv=782) CBC (HEMOGRAM ONLY)2018-12-11 05:36:00 Test Item Value Reference Range Comments WHITE BLOOD CELL COUNT (BEAKER) (test ckeq=649) 14.7 K/ L 3.5-10.5 RED BLOOD CELL COUNT (BEAKER) (test pega=433) 5.02 M/ L 4.63-6.08 HEMOGLOBIN (BEAKER) (test zoyj=840) 13.0 GM/DL 13.7-17.5 HEMATOCRIT (BEAKER) (test cjig=895) 39.7 % 40.1-51.0 MEAN CORPUSCULAR VOLUME (BEAKER) (test kfhr=064) 79.1 fL 79.0-92.2 MEAN CORPUSCULAR HEMOGLOBIN (BEAKER) (test 25.9 pg 25.7-32.2 xpom=515) MEAN CORPUSCULAR HEMOGLOBIN CONC (BEAKER) (test 32.7 GM/DL 32.3-36.5 jwsw=763) RED CELL DISTRIBUTION WIDTH (BEAKER) (test 13.4 % 11.6-14.4 xroh=264) PLATELET COUNT (BEAKER) (test jhjf=334) 282 K/CU MM 150-450 MEAN PLATELET VOLUME (BEAKER) (test fzlr=229) 10.7 fL 9.4-12.4 NUCLEATED RED BLOOD CELLS (BEAKER) (test 0 /100 WBC 0-0 nmzk=234) RAD, CHEST, 1 VIEW, NON [id number] 04:35:00Reason for exam:->edema, opacity?Should this be performed [...] Verified Date/Time: 12/11/2018 04:35:08 Reading Location : [address] ReadingRoom POCT-GLUCOSE [id number] 21:59:00 Test Item Value Reference Range Comments POC-GLUCOSE METER (BEAKER) 167 mg/dL 70-110 TESTED AT [address] (test runq=2657) [facility] [address] BASIC METABOLIC [id number] 21:43:00 Test Item Value Reference Range Comments SODIUM (BEAKER) (test 135 meq/L 136-145 cpdz=810) POTASSIUM (BEAKER) (test 4.1 meq/L 3.5-5.1 xjiz=621) CHLORIDE (BEAKER) (test 97 meq/L 98-107 zamm=387) CO2 (BEAKER) (test 32 meq/L 22-29 bhrn=640) BLOOD UREA NITROGEN 37 mg/dL 7-21 (BEAKER) (test iskv=021) CREATININE (BEAKER) (test 1.50 mg/dL 0.57-1.25 hxzs=069) GLUCOSE RANDOM (BEAKER) 173 mg/dL 70-105 (test flpz=131) CALCIUM (BEAKER) (test 8.7 mg/dL 8.4-10.2 cpav=766) EGFR (BEAKER) (test 46 mL/min/1.73 sq m ESTIMATED GFR IS NOT kijg=4013) ACCURATE CREATININE CLEARANCE IN PREDICTING GLOMERULAR FILTRATION RATE. ESTIMATED GFR IS NOT APPLICABLE FOR DIALYSIS PATIENTS. [id number] 21:28:00 Test Item Value Reference Range Comments PARTIAL THROMBOPLASTIN TIME (BEAKER) (test 60.6 seconds 22.5-36.0 rzkm=654) BASIC METABOLIC [id number] 17:24:00 Test Item Value Reference Range Comments SODIUM (BEAKER) (test 136 meq/L 136-145 qohe=247) POTASSIUM (BEAKER) (test 4.4 meq/L 3.5-5.1 Specimen slightly tlgb=114) hemolyzed CHLORIDE (BEAKER) (test 97 meq/L 98-107 scth=422) CO2 (BEAKER) (test 31 meq/L 22-29 inbw=478) BLOOD UREA NITROGEN 35 mg/dL 7-21 (BEAKER) (test chud=537) CREATININE (BEAKER) (test 1.50 mg/dL 0.57-1.25 Specimen slightly gzol=798) hemolyzed GLUCOSE RANDOM (BEAKER) 135 mg/dL 70-105 (test wglw=772) CALCIUM (BEAKER) (test 8.7 mg/dL 8.4-10.2 rdbj=155) EGFR (BEAKER) (test 46 mL/min/1.73 sq m ESTIMATED GFR IS NOT rwab=6276) ACCURATE CREATININE CLEARANCE IN PREDICTING GLOMERULAR FILTRATION RATE. ESTIMATED GFR IS NOT APPLICABLE FOR DIALYSIS PATIENTS. POCT-GLUCOSE [id number] 16:32:00 Test Item Value Reference Range Comments POC-GLUCOSE METER (BEAKER) 136 mg/dL 70-110 TESTED AT [facility] [address] [facility] (test wlju=4929) [facility] [address] VANCOMYCIN LEVEL, [id number] 13:55:00 Test Item Value Reference Range Comments VANCOMYCIN TROUGH (BEAKER) (test dxkd=249) 16.8 ug/mL 10.0-20.0 [id number] 12:49:00 Test Item Value Reference Range Comments PARTIAL THROMBOPLASTIN TIME (BEAKER) (test 47.0 seconds 22.5-36.0 qhhr=710) POCT-GLUCOSE [id number] 11:53:00 Test Item Value Reference Range Comments POC-GLUCOSE METER (BEAKER) 161 mg/dL 70-110 TESTED AT [address] (test ddfb=0669) [facility] [address] POCT-GLUCOSE [id number] 08:12:00 Test Item Value Reference Range Comments POC-GLUCOSE METER (BEAKER) 164 mg/dL 70-110 TESTED AT [address] (test eowk=0903) [place] [id number] 05:53:00 Test Item Value Reference Range Comments PROCALCITONIN (BEAKER) (test hzyz=9675) < ng/mL <0.05 SEPSIS RISK (ng/mL)Low: 0.05-0.50Intermediate: 0.51-2.00High: & gt;=2.01TROPONIN [id number] 05:41:00 Test Item Value Reference Range Comments TROPONIN I (BEAKER) (test heoz=982) 0.93 ng/mL 0.00-0.03 Troponin I (TnI) levels [...] NATRIURETIC PEPTIDE (BEAKER) (test 814 pg/mL 0-100 vupq=584) [id number] 04:33:00 Test Item Value Reference Range Comments PHOSPHORUS (BEAKER) (test tzhp=093) 4.8 mg/dL 2.3-4.7 [id number] 04:33:00 Test Item Value Reference Range Comments MAGNESIUM (BEAKER) (test kdrt=735) 2.2 mg/dL 1.6-2.6 BASIC METABOLIC [id number] 04:33:00 Test Item Value Reference Range Comments SODIUM (BEAKER) (test 135 meq/L 136-145 prjt=274) POTASSIUM (BEAKER) (test 4.3 meq/L 3.5-5.1 hcif=375) CHLORIDE (BEAKER) (test 100 meq/L 98-107 qzvk=924) CO2 (BEAKER) (test 28 meq/L 22-29 qxzd=630) BLOOD UREA NITROGEN 24 mg/dL 7-21 (BEAKER) (test hzoe=505) CREATININE (BEAKER) (test 1.35 mg/dL 0.57-1.25 tfgm=903) GLUCOSE RANDOM (BEAKER) 227 mg/dL 70-105 (test mcoe=961) CALCIUM (BEAKER) (test 8.3 mg/dL 8.4-10.2 brkp=382) EGFR (BEAKER) (test 52 mL/min/1.73 sq m ESTIMATED GFR IS NOT apvw=7629) ACCURATE CREATININE CLEARANCE IN PREDICTING GLOMERULAR FILTRATION RATE. ESTIMATED GFR IS NOT APPLICABLE FOR DIALYSIS PATIENTS. LACTIC ACID, [id number] 04:25:00 Test Item Value Reference Range Comments LACTATE BLOOD VENOUS (2) (BEAKER) (test 0.6 mmol/L 0.5-2.2 nqnc=5225) CBC (HEMOGRAM ONLY)2018-12-10 03:53:00 Test Item Value Reference Range Comments WHITE BLOOD CELL COUNT (BEAKER) (test njtf=918) 10.5 K/ L 3.5-10.5 RED BLOOD CELL COUNT (BEAKER) (test fjou=831) 4.71 M/ L 4.63-6.08 HEMOGLOBIN (BEAKER) (test yfcz=832) 12.2 GM/DL 13.7-17.5 HEMATOCRIT (BEAKER) (test mslc=614) 38.1 % 40.1-51.0 MEAN CORPUSCULAR VOLUME (BEAKER) (test rbwk=359) 80.9 fL 79.0-92.2 MEAN CORPUSCULAR HEMOGLOBIN (BEAKER) (test 25.9 pg 25.7-32.2 vuyb=568) MEAN CORPUSCULAR HEMOGLOBIN CONC (BEAKER) (test 32.0 GM/DL 32.3-36.5 tumf=453) RED CELL DISTRIBUTION WIDTH (BEAKER) (test 13.2 % 11.6-14.4 fidl=843) PLATELET COUNT (BEAKER) (test abnm=777) 239 K/CU MM 150-450 MEAN PLATELET VOLUME (BEAKER) (test nqrq=095) 10.5 fL 9.4-12.4 NUCLEATED RED BLOOD CELLS (BEAKER) (test 0 /100 WBC 0-0 ostz=839) POCT-GLUCOSE [id number] 22:31:00 Test Item Value Reference Range Comments POC-GLUCOSE METER (BEAKER) 187 mg/dL 70-110 TESTED AT [address] (test qwxh=9240) [place] [address] POCT-GLUCOSE [id number] 17:19:00 Test Item Value Reference Range Comments POC-GLUCOSE METER (BEAKER) 158 mg/dL 70-110 TESTED AT [address] (test wxmd=1981) [place] [address] HEMOGLOBIN [id number] 14:57:00 Test Item Value Reference Range Comments HEMOGLOBIN A1C (BEAKER) (test pgra=535) 5.7 % 4.3-6.1 POCT-GLUCOSE [id number] 12:19:00 Test Item Value Reference Range Comments POC-GLUCOSE METER (BEAKER) 140 mg/dL 70-110 TESTED AT [address] (test qwux=2364) [place] [address] URINALYSIS W/ REFLEX URINE [id number] 11:34:00 Test Item Value Reference Range Comments COLOR (BEAKER) (test ttgc=197) Yellow CLARITY (BEAKER) (test kxjc=634) Clear SPECIFIC GRAVITY UA (BEAKER) (test vwna=384) 1.009 1.001-1.035 PH UA (BEAKER) (test nreo=472) 5.0 5.0-8.0 PROTEIN UA (BEAKER) (test rpjd=225) 20 mg/dL Negative GLUCOSE UA (BEAKER) (test otxf=277) Negative Negative KETONES UA (BEAKER) (test hwjb=864) Negative Negative BILIRUBIN UA (BEAKER) (test cezl=653) Negative Negative BLOOD UA (BEAKER) (test lahx=460) Moderate Negative NITRITE UA (BEAKER) (test fjvq=655) Negative Negative LEUKOCYTE ESTERASE UA (BEAKER) (test ximr=257) Moderate Negative UROBILINOGEN UA (BEAKER) (test izhm=352) 0.2 mg/dL 0.2-1.0 RBC UA (BEAKER) (test oevu=692) 27 /HPF WBC UA (BEAKER) (test fsyw=713) 20 /HPF MUCUS (BEAKER) (test tltc=6398) Rare SQUAMOUS EPITHELIAL (BEAKER) (test fzgt=669) < /HPF SOURCE(BEAKER) (test cmrv=7863) [id number] 11:13:00 Test Item Value Reference Range Comments PARTIAL THROMBOPLASTIN TIME (BEAKER) (test 51.5 seconds 22.5-36.0 cawx=663) RESPIRATORY PANEL [id number] 10:18:00 Test Item Value Reference Range Comments HUMAN METAPNEUMOVIRUS (BEAKER) (test Not detected Not detected, Equivocal tjtn=5269) RHINOVIRUS (BEAKER) (test dxnp=5610) Not detected Not detected, Equivocal INFLUENZA A (BEAKER) (test tcfp=9279) Not detected Not detected, Equivocal INFLUENZA A (NO SUBTYPE) (test Not detected, Equivocal uxim=2787) INFLUENZA A SUBTYPE H1 (BEAKER) (test Not detected, Equivocal rhma=3853) INFLUENZA A SUBTYPE H3 (BEAKER) (test Not detected, Equivocal clzt=1956) INFLUENZA A SUBTYPE H1-2009 (BEAKER) Not detected, Equivocal (test phku=2546) INFLUENZA B (BEAKER) (test bfzk=2843) Not detected Not detected, Equivocal RESPIRATORY SYNCYTIAL VIRUS (BEAKER) Not detected Not detected, Equivocal (test uokn=0787) PARAINFLUENZA VIRUS 1 (BEAKER) (test Not detected Not detected, Equivocal gzzg=7028) PARAINFLUENZA VIRUS 2 (BEAKER) (test Not detected Not detected, Equivocal lsam=7860) PARAINFLUENZA VIRUS 3 (BEAKER) (test Not detected Not detected, Equivocal criz=8346) PARAINFLUENZA VIRUS 4 (BEAKER) (test Not detected Not detected, Equivocal knvw=8135) ADENOVIRUS (BEAKER) (test njhm=2249) Not detected Not detected, Equivocal CORONAVIRUS 229E (BEAKER) (test Not detected Not detected, Equivocal ulgl=6839) CORONAVIRUS HKU1 (BEAKER) (test Not detected Not detected, Equivocal ddmj=8191) CORONAVIRUS NL63 (BEAKER) (test Not detected Not detected, Equivocal oebm=9266) CORONAVIRUS OC43 (BEAKER) (test Not detected Not detected, Equivocal ntvl=9302) BORDETELLA PERTUSSIS (BEAKER) (test Not detected Not detected, Equivocal ewyt=8176) CHLAMYDOPHILA PNEUMONIAE (BEAKER) (test Not detected Not detected, Equivocal ijek=0098) MYCOPLASMA PNEUMONIAE (BEAKER) (test Not detected Not detected, Equivocal msoh=5847) Other viruses and bacteria not targeted by this PCR panel cannot be excluded; therefore clinical correlation and follow up of serology, culture results, and other molecular studies is required. The results are not intended to be used as the sole means for clinical diagnosis or patient management decisions. This sample was tested at the [facility] using the iFlexMe FilmArray Respiratory Panel. It is FDA cleared and has been verified and approved by the [facility] for clinical use on nasopharyngeal swab specimens.The performance of the FilmArrayRP has not been established in individuals who received influenza vaccine. Recent administration ofa nasal influenza vaccine may cause false positive results for Influenza A and/orInfluenza B.POCT-GLUCOSE [id number] 07:53:00 Test Item Value Reference Range Comments POC-GLUCOSE METER (BEAKER) 181 mg/dL 70-110 TESTED AT [facility] [address] (test okin=5531) [facility] [address] COMPREHENSIVE METABOLIC [id number] 02:51:00 Test Item Value Reference Range Comments TOTAL PROTEIN (BEAKER) 6.9 gm/dL 6.0-8.3 Specimen slightly (test ybto=338) hemolyzed ALBUMIN (BEAKER) (test 3.4 g/dL 3.5-5.0 Specimen slightly ugta=1726) hemolyzed ALKALINE PHOSPHATASE 66 U/L 40-150 (BEAKER) (test ubik=319) BILIRUBIN TOTAL (BEAKER) 0.5 mg/dL 0.2-1.2 Specimen slightly (test ndve=816) hemolyzed SODIUM (BEAKER) (test 138 meq/L 136-145 gmqq=874) POTASSIUM (BEAKER) (test 4.4 meq/L 3.5-5.1 Specimen slightly xcuz=188) hemolyzed CHLORIDE (BEAKER) (test 108 meq/L 98-107 wjsq=026) CO2 (BEAKER) (test 20 meq/L 22-29 tcwz=044) BLOOD UREA NITROGEN 17 mg/dL 7-21 (BEAKER) (test hxgu=354) CREATININE (BEAKER) (test 1.20 mg/dL 0.57-1.25 Specimen slightly qrwd=925) hemolyzed GLUCOSE RANDOM (BEAKER) 135 mg/dL 70-105 (test pkda=426) CALCIUM (BEAKER) (test 8.5 mg/dL 8.4-10.2 mnoa=752) AST (SGOT) (BEAKER) (test 13 U/L 5-34 Specimen slightly ynaf=272) hemolyzed ALT (SGPT) (BEAKER) (test 11 U/L 6-55 Specimen slightly gqjk=837) hemolyzed EGFR (BEAKER) (test 60 mL/min/1.73 sq m ESTIMATED GFR IS NOT wijt=6952) ACCURATE CREATININE CLEARANCE IN PREDICTING GLOMERULAR FILTRATION RATE. ESTIMATED GFR IS NOT APPLICABLE FOR DIALYSIS PATIENTS. TROPONIN [id number] 02:40:00 Test Item Value Reference Range Comments TROPONIN I (BEAKER) (test tlwk=728) 1.38 ng/mL 0.00-0.03 Troponin I (TnI) levels [...] NATRIURETIC PEPTIDE (BEAKER) (test 608 pg/mL 0-100 jgdu=007) [id number] 02:15:00 Test Item Value Reference Range Comments MAGNESIUM (BEAKER) (test 1.7 mg/dL 1.6-2.6 Specimen slightly hemolyzed awnp=926) [id number] 02:15:00 Test Item Value Reference Range Comments PHOSPHORUS (BEAKER) (test 3.1 mg/dL 2.3-4.7 Specimen slightly hemolyzed jmei=228) CBC W/PLT COUNT & AUTO [id number] 02:04:00 Test Item Value Reference Range Comments WHITE BLOOD CELL COUNT (BEAKER) (test zabq=697) 11.4 K/ L 3.5-10.5 RED BLOOD CELL COUNT (BEAKER) (test kbgf=580) 4.93 M/ L 4.63-6.08 HEMOGLOBIN (BEAKER) (test ehoc=344) 12.9 GM/DL 13.7-17.5 HEMATOCRIT (BEAKER) (test nfeg=075) 40.5 % 40.1-51.0 MEAN CORPUSCULAR VOLUME (BEAKER) (test thsm=132) 82.2 fL 79.0-92.2 MEAN CORPUSCULAR HEMOGLOBIN (BEAKER) (test 26.2 pg 25.7-32.2 cdyo=672) MEAN CORPUSCULAR HEMOGLOBIN CONC (BEAKER) (test 31.9 GM/DL 32.3-36.5 vucv=228) RED CELL DISTRIBUTION WIDTH (BEAKER) (test 13.8 % 11.6-14.4 oncf=610) PLATELET COUNT (BEAKER) (test ebkm=007) 242 K/CU MM 150-450 MEAN PLATELET VOLUME (BEAKER) (test iflk=242) 10.8 fL 9.4-12.4 NUCLEATED RED BLOOD CELLS (BEAKER) (test 0 /100 WBC 0-0 flpu=693) NEUTROPHILS RELATIVE PERCENT (BEAKER) (test 92 % zhtp=939) LYMPHOCYTES RELATIVE PERCENT (BEAKER) (test 4 % zywp=727) MONOCYTES RELATIVE PERCENT (BEAKER) (test 2 % sqyf=581) EOSINOPHILS RELATIVE PERCENT (BEAKER) (test 0 % lovs=759) BASOPHILS RELATIVE PERCENT (BEAKER) (test 1 % xkvz=934) NEUTROPHILS ABSOLUTE COUNT (BEAKER) (test 10.49 K/ L 1.78-5.38 pmtk=073) LYMPHOCYTES ABSOLUTE COUNT (BEAKER) (test 0.48 K/ L 1.32-3.57 ofbr=875) MONOCYTES ABSOLUTE COUNT (BEAKER) (test 0.27 K/ L 0.30-0.82 fsld=148) EOSINOPHILS ABSOLUTE COUNT (BEAKER) (test 0.00 K/ L 0.04-0.54 myaa=420) BASOPHILS ABSOLUTE COUNT (BEAKER) (test 0.07 K/ L 0.01-0.08 ivzu=505) IMMATURE GRANULOCYTES-RELATIVE PERCENT (BEAKER) 0 % 0-1 (test bush=1612) [id number] 01:59:00 Test Item Value Reference Range Comments PARTIAL THROMBOPLASTIN TIME (BEAKER) (test 40.5 seconds 22.5-36.0 lfol=412) POCT-GLUCOSE [id number] 22:21:00 Test Item Value Reference Range Comments POC-GLUCOSE METER (BEAKER) 136 mg/dL 70-110 TESTED AT [facility] [address] (test ndwy=2128) [facility] [address] RAD, CHEST, 1 VIEW, NON [id number] 21:04:00Reason for exam:->shortness of breathShould this be [...] MDReport Verified Date/Time: 12/08/2018 21:04:01 Reading Location: [address] Reading Room BUN AND [id number] 20:26:00 Test Item Value Reference Range Comments BLOOD UREA NITROGEN 18 mg/dL 7-21 (BEAKER) (test ulnr=034) CREATININE (BEAKER) (test 1.30 mg/dL 0.57-1.25 yqov=821) EGFR (BEAKER) (test 54 mL/min/1.73 sq m ESTIMATED GFR IS NOT ybnn=1755) ACCURATE CREATININE CLEARANCE IN PREDICTING GLOMERULAR FILTRATION RATE. ESTIMATED GFR IS NOT APPLICABLE FOR DIALYSIS PATIENTS. THEOPHYLLINE [id number] 19:28:00 Test Item Value Reference Range Comments THEOPHYLLINE LEVEL (BEAKER) (test yems=990) 10.1 ug/mL 10.0-20.0 [id number] 19:09:00 Test Item Value Reference Range Comments PARTIAL THROMBOPLASTIN TIME (BEAKER) (test 36.3 seconds 22.5-36.0 dfwu=704) Prior to initiating heparinSTREP PNEUMONIAE [id number] 19:00:00 Test Item Value Reference Range Comments STREP PNEUMONIAE ANTIGEN Presumptive negative for Presumptive negative for (BEAKER) (test pneumococcal pneumonia - pneumococcal pneumonia - imzt=4801) see comment see commen Presumptive negative for pneumococcal pneumonia, suggesting no current or recent pneumococcal infection. Infection due to S. pneumoniae cannot be ruled out since the antigen present in the sample may be below the detection limit of the test.LEGIONELLA ANTIGEN, [id number] 18:59:00 Test Item Value Reference Range Comments L. PNEUMOPHILA SEROGP 1 Negative - see Negative for L. UR AG (AKER) (test comment pneumophila serogroup 1 diae=6234) antigen, suggesting no recent or current infection with this serogroup. Legionellosis cannot be ruled out since other serogroups and species may cause disease. RAD, CHEST, 1 VIEW, NON [id number] 18:51:00Reason for exam:-> hypoxemiaShould this be performed [...] Verified Date/Time : 12/08/2018 18:51:41 Reading Location: [address] Consult Reading Room Electronically signed by: KATIE SALINAS M.D.on 12/08/2018 06:51 PMBLOOD GAS, [id number] 18:41:00 Test Item Value Reference Range Comments PH ARTERIAL (BEAKER) (test rfnq=797) 7.47 7.35-7.45 PCO2 ARTERIAL (BEAKER) (test taxj=043) 35 mmHg 35-45 PO2 ARTERIAL (BEAKER) (test imcv=716) 97 mmHg 80-90 O2 SATURATION ARTERIAL (BEAKER) (test qefy=888) 97.8 % 96.0-97.0 HCO3 ARTERIAL (BEAKER) (test wcfw=209) 25 mmol/L 21-29 BASE EXCESS ARTERIAL (BEAKER) (test rrfo=898) 1.4 mmol/L -2.0-3.0 PATIENT TEMPERATURE (BEAKER) (test mxkx=8833) 37.0 C FIO2 (BEAKER) (test yard=3494) 44.0 % TROPONIN [id number] 18:35:00 Test Item Value Reference Range Comments TROPONIN I (BEAKER) (test vclc=140) 1.24 ng/mL 0.00-0.03 Troponin I (TnI) levels [...] acute neurological disease, and persistent tachyarrhythmia.LACTIC ACID, [id number] 18:17:00 Test Item Value Reference Range Comments LACTATE BLOOD VENOUS (2) 1.6 mmol/L 0.5-2.2 Specimen moderately hemolyzed (BEAKER) (test muim=5167) [id number] 18:14:00 Test Item Value Reference Range Comments MAGNESIUM (BEAKER) (test lini=396) 1.7 mg/dL 1.6-2.6 POCT-GLUCOSE [id number] 18:06:00 Test Item Value Reference Range Comments POC-GLUCOSE METER (BEAKER) 123 mg/dL 70-110 TESTED AT [facility] [address] (test lhoj=6847) [place] [address] CBC W/PLT COUNT & AUTO [id number] 17:57:00 Test Item Value Reference Range Comments WHITE BLOOD CELL COUNT (BEAKER) (test adis=536) 11.6 K/ L 3.5-10.5 RED BLOOD CELL COUNT (BEAKER) (test lxlv=650) 4.99 M/ L 4.63-6.08 HEMOGLOBIN (BEAKER) (test gcmq=672) 13.1 GM/DL 13.7-17.5 HEMATOCRIT (BEAKER) (test oyoi=770) 40.1 % 40.1-51.0 MEAN CORPUSCULAR VOLUME (BEAKER) (test cwfe=816) 80.4 fL 79.0-92.2 MEAN CORPUSCULAR HEMOGLOBIN (BEAKER) (test 26.3 pg 25.7-32.2 lpoz=856) MEAN CORPUSCULAR HEMOGLOBIN CONC (BEAKER) (test 32.7 GM/DL 32.3-36.5 zlcw=208) RED CELL DISTRIBUTION WIDTH (BEAKER) (test 13.8 % 11.6-14.4 zsey=477) PLATELET COUNT (BEAKER) (test osid=686) 243 K/CU MM 150-450 MEAN PLATELET VOLUME (BEAKER) (test igav=762) 10.6 fL 9.4-12.4 NUCLEATED RED BLOOD CELLS (BEAKER) (test 0 /100 WBC 0-0 bqbw=484) NEUTROPHILS RELATIVE PERCENT (BEAKER) (test 81 % pbmd=651) LYMPHOCYTES RELATIVE PERCENT (BEAKER) (test 8 % mszq=657) MONOCYTES RELATIVE PERCENT (BEAKER) (test 10 % dmqg=399) EOSINOPHILS RELATIVE PERCENT (BEAKER) (test 0 % zwqs=142) BASOPHILS RELATIVE PERCENT (BEAKER) (test 1 % tjrc=720) NEUTROPHILS ABSOLUTE COUNT (BEAKER) (test 9.42 K/ L 1.78-5.38 cuas=925) LYMPHOCYTES ABSOLUTE COUNT (BEAKER) (test 0.87 K/ L 1.32-3.57 dhju=269) MONOCYTES ABSOLUTE COUNT (BEAKER) (test 1.19 K/ L 0.30-0.82 gyth=306) EOSINOPHILS ABSOLUTE COUNT (BEAKER) (test 0.04 K/ L 0.04-0.54 byrb=943) BASOPHILS ABSOLUTE COUNT (BEAKER) (test 0.08 K/ L 0.01-0.08 mbtu=795) IMMATURE GRANULOCYTES-RELATIVE PERCENT (BEAKER) 0 % 0-1 (test mggx=6998)
[2019-02-13 17:52] LABS: Protime INR 1.04
[2019-02-13 17:55] LABS: Absolute Lymphocytes (CBC) 0.8 K/uL (0.7-4.9); Hematocrit 38.1 % (39.6-49.0); MPV 9.4 fL (7.6-11.3); RBC Red Blood Cell Count 4.81 M/uL (4.33-5.43)
--- NOTE | 2019-02-13 18:12 | RAD REPORT ---
EXAM DESCRIPTION: RAD - Chest Single View - 02/13/2019 6:03 pm CLINICAL HISTORY: SOB Chest pain. COMPARISON: <Comparisons> FINDINGS: Portable technique limits examination quality. Emphysematous changes are present with mild chronic blunting the left costophrenic angle. The heart i s normal in size. Sternotomy wires present.Aortic atherosclerosis.
[2019-02-13 18:20] LABS: ALT/SGPT 19 U/L (12-78); AST/SGOT 10 U/L (15-37); Alkaline Phosphatase 73 U/L (45-117); BUN Blood Urea Nitrogen 24 mg/dL (7-18); Bicarbonate 32 mmol/L (21-32); Bilirubin Direct 0.1 mg/dL (0-0.2); Bilirubin Total 0.3 mg/dL (0.2-1.0); Glucose Level 134 mg/dL (74-106); NT PRO-BNP 2165 pg/mL (<125); Protein, Total 6.9 g/dL (6.4-8.2); Sodium Level 142 mmol/L (136-145); Troponin (Emerg Dept Use Only) < 0.02 ng/mL (0.0-0.045)
[2019-02-13 18:31] LABS: Magnesium 3.9 mg/dL (1.8-2.4)
[2019-02-13 18:48] LABS: Arterial Blood Carboxyhemoglob 0.9 % (0-1.5); Blood Gas Oxyhemoglobin 96.6 % (94-97); Blood O2 Saturation 98.2 % (92-98.5)
--- NOTE | 2019-02-13 19:07 | EDPHYS ---
Physician Documentation [facility] Name: Massimo Hauser Age: 73 yrs Sex: Male : 1945 Arrival Date: 02/13/2019 Time: 17:22 Bed 24 Private MD: ED Physician Eduardo Ventura HPI: 02/13 19:05 This 73 yrs old Male presents to ER via EMS with complaints of Breathing kdr Difficulty. 19:05 The patient has shortness of breath at rest, with light activity. Onset: The kdr symptoms/episode began/occurred The has been ongoing and recurrent since Bypass surgery in December. This is his third visit since his surgery. Family states that he slowly has worsening air hunger at home despite oxygen via nasal canula and BiPaP. His breathing and air hunger become progressively worse until he has to come to the hospital. Duration: The symptoms are continuous, and are steadily getting worse. The patient's shortness of breath is aggravated by eating. Associated signs and symptoms: Pertinent positives: This patient does not have any pertinent positive signs or symptoms associated with shortness of breath. Pertinent negatives: non-productive cough, productive cough, diaphoresis, dizziness, fever, hemoptysis, loss of consciousness, nausea, numbness in extremities, visual changes, vomiting. Severity of symptoms: At their worst the symptoms were moderate severe just prior to arrival, in the emergency department the symptoms. The patient has experienced similar episodes in the past, several times, multiple times. The patient has been recently seen by a physician:. Historical: - Allergies: 17:57 CEPHALOSPORINS; mg2 17:57 Sulfa (Sulfonamide Antibiotics); mg2 17:57 Tetanus Immune Globulin; mg2 - Home Meds: 17:57 Amiodarone Oral once daily [Active]; aspirin 81 mg Oral TbEC 1 tab once daily [Active]; mg2 atorvastatin 10 mg Oral tab 1 tab once daily [Active]; Breo Ellipta 200-25 mcg/dose inhalation dsdv 1 puff once daily [Active]; Bumetanide Oral [Active]; clopidogrel 75 mg Oral tab 1 tab once daily [Active]; Coreg Oral 2 times per day [Active]; Entresto Oral 2 times per day [Active]; Flomax 0.4 mg Oral cp24 once daily [Active]; Incruse Ellipta 62.5 mcg/actuation inhalation dsdv 1 puff once daily [Active]; irbesartan 150 mg Oral tab 1 tab once daily [Active]; Lantus 100 unit/mL Sub-Q soln 20 unit nightly [Active]; losartan Oral [Active]; Magnesium Oxide Oral [Active]; metformin 500 mg Oral tab 2 times per day [Active]; Mucinex Oral [Active]; Norvasc 10 mg Oral tab once daily [Active]; tramadol 50 mg Oral tab 1 tab every 6 hours [Active]; vancomycin intravenous [Active]; - PMHx: 17:57 COPD; Diabetes - NIDDM; Emphysema; Home O2 5LNC; Hypertension; Atrial Fib; CHF; mg2 - Immunization history:: Pneumococcal vaccine is up to date, Flu vaccine is up to date. - Social history:: Smoking status: Patient/guardian denies using tobacco, Patient/guardian denies using alcohol, street drugs, IV drugs. - Ebola Screening: : No symptoms or risks identified at this time. ROS: 19:05 Constitutional: Negative for fever, chills, and weight loss, Eyes: Negative for injury, kdr pain, redness, and discharge, ENT: Negative for injury, pain, and discharge, Neck: Negative for injury, pain, and swelling, Cardiovascular: Negative for chest pain, palpitations, and edema, Abdomen/GI: Negative for abdominal pain, nausea, vomiting, diarrhea, and constipation, Back: Negative for injury and pain, : Negative for injury, bleeding, discharge, and swelling, MS/Extremity: Negative for injury and deformity, Skin: Negative for injury, rash, and discoloration, Neuro: Negative for headache, weakness, numbness, tingling, and seizure activity. Psych: Negative for depression, anxiety, suicide ideation, homicidal ideation, and hallucinations, Allergy/Immunology: Negative for hives, rash, and allergies, Endocrine: Negative for neck swelling, polydipsia, polyuria, polyphagia, and marked weight changes, Hematologic/Lymphatic: Negative for swollen nodes, abnormal bleeding, and unusual bruising. 19:05 Respiratory: Positive for dyspnea on exertion, shortness of breath, at rest. Negative for hemoptysis, orthopnea, pleurisy, wheezing. Exam: 19:05 Constitutional: This is a well developed, well nourished patient who is awake, alert, kdr and in no acute distress. Head/Face: Normocephalic, atraumatic. Eyes: Pupils equal round and reactive to light, extra-ocular motions intact. Lids and lashes normal. Conjunctiva and sclera are non-icteric and not injected. Cornea within normal limits. Periorbital areas with no swelling, redness, or edema. Neck: Trachea midline, no thyromegaly or masses palpated, and no cervical lymphadenopathy. Supple, full range of motion without nuchal rigidity, or vertebral point tenderness. No Meningismus. Chest/axilla: Normal chest wall appearance and motion. Nontender with no deformity. No lesions are appreciated. Cardiovascular: Regular rate and rhythm with a normal S1 and S2. No gallops, murmurs, or rubs. Normal PMI, no JVD. No pulse deficits. Abdomen/GI: Soft, non-tender, with normal bowel sounds. No distension or tympany. No guarding or rebound. No evidence of tenderness throughout. Back: No spinal tenderness. No costovertebral tenderness. Full range of motion. Skin: Warm, dry with normal turgor. Normal color with no rashes, no lesions, and no evidence of cellulitis. MS/ Extremity: Pulses equal, no cyanosis. Neurovascular intact. Full, normal range of motion. Neuro: Awake and alert, GCS 15, oriented to person, place, time, and situation. Cranial nerves II-XII grossly intact. Motor strength 5/5 in all extremities. Sensory grossly intact. Cerebellar exam normal. Normal gait. Psych: Awake, alert, with orientation to person, place and time. Behavior, mood, and affect are within normal limits. 19:05 Respiratory: mild respiratory distress is noted, Respirations: labored breathing, that is mild, shallow respirations, On BiPaP, Breath sounds: rales, that are mild, are located in both bases, rhonchi, that are moderate, are scattered, stridor, is not appreciated, wheezing: is not appreciated. Vital Signs: 17:38 BP 108 / 61; Pulse 88; Resp 25; Temp 97.6(A); Pulse Ox 98% on 40% BiPAP; Weight 86.18 mg2 kg; Height 5 ft. 11 in. (180.34 cm); Pain 0/10; 19:06 BP 102 / 65; Pulse 91; Resp 24; Pulse Ox 100% on BiPAP; mg2 19:16 BP 95 / 56; Pulse 130; Resp 24; Pulse Ox 100% on 40% BiPAP; mg2 19:27 BP 99 / 75; mg2 20:10 BP 120 / 78; Pulse 130; Resp 24; Pulse Ox 100% on 40% BiPAP; mg2 17:38 Body Mass Index 26.50 (86.18 kg, 180.34 cm) mg2 MDM: 19:05 Patient medically screened. kdr 19:05 Data reviewed: vital signs, nurses notes, lab test result(s), radiologic studies. kdr Counseling: I had a detailed discussion with the patient and/or guardian regarding: the historical points, exam findings, and any diagnostic results supporting the discharge/admit diagnosis, lab results, radiology results, the need for further work-up and treatment in the hospital. Physician consultation: Spenser Long DO. 02/13 17:35 Order name: Basic Metabolic Panel; Complete Time: 18:38 mg2 02/13 17:35 Order name: CBC with Diff; Complete Time: 18:38 mg2 02/13 17:35 Order name: LFT's; Complete Time: 18:38 mg2 02/13 17:35 Order name: Magnesium; Complete Time: 18:38 mg2 02/13 17:35 Order name: NT PRO-BNP; Complete Time: 18:38 mg2 02/13 17:35 Order name: PT-INR; Complete Time: 18:38 mg2 02/13 17:35 Order name: Troponin (emerg Dept Use Only); Complete Time: 18:38 mg2 02/13 17:35 Order name: XRAY Chest (1 view); Complete Time: 18:38 mg2 02/13 17:35 Order name: EKG; Complete Time: 17:37 mg2 02/13 17:35 Order name: Cardiac monitoring; Complete Time: 18:14 mg2 02/13 17:35 Order name: EKG - Nurse/Tech; Complete Time: 18:14 mg2 02/13 18:27 Order name: ABG kdr 02/13 17:35 Order name: IV Saline Lock; Complete Time: 18:14 mg2 02/13 17:35 Order name: Labs collected and sent; Complete Time: 18:14 mg2 02/13 17:35 Order name: O2 Per Protocol; Complete Time: 18:14 mg2 02/13 17:35 Order name: O2 Sat Monitoring; Complete Time: 18:14 mg2 Administered Medications: 18:59 Not Given (patient already received from the EMS): SOLU-Medrol 125 mg IVP once mg2 19:33 Drug: NS 0.9% 250 ml Route: IV; Rate: bolus; Site: right forearm; mg2 20:11 Follow up: Response: No adverse reaction; IV Status: Completed infusion; IV Intake: mg2 250ml Point of Care Testing: Blood Glucose: 17:38 Blood Glucose: 143 mg/dL; mg2 Ranges: Critical Glucose Levels:Adult <50 mg/dl or >400 mg/dl <40 mg/dl or >180 mg/dl Disposition: 02/13/19 19:05 Hospitalization ordered by Spenser Long for Inpatient Admission. Preliminary diagnosis is COPD Exacerbation. - Bed requested for Intensive Care Unit. - Status is Inpatient Admission. mg2 - Condition is Serious. - Problem is an acute exacerbation. - Symptoms have improved. UTI on Admission? No Signatures: Dispatcher [employer] EDMS Eduardo Ventura MD MD kdr Ese Prado RN RN cg Sherman Garza RN RN mg2 Corrections: (The following items were deleted from the chart) 20:09 19:05 Hospitalization Ordered by Spenser Long DO for Inpatient Admission. Preliminary cg diagnosis is COPD Exacerbation. Bed requested for Telemetry/MedSurg (Inpatient). Status is Inpatient Admission. Condition is Serious. Problem is an acute exacerbation. Symptoms have improved. UTI on Admission? No. kdr 21:08 20:09 02/13/2019 19:05 Hospitalization Ordered by Spenser Long DO for Inpatient mg2 Admission. Preliminary diagnosis is COPD Exacerbation. Bed requested for Intensive Care Unit. Status is Inpatient Admission. Condition is Serious. Problem is an acute exacerbation. Symptoms have improved. UTI on Admission? No. cg
--- NOTE | 2019-02-13 19:07 | ER ---
Nurse's Notes [facility] Name: Massimo Hauser Age: 73 yrs Sex: Male : 1945 Arrival Date: 02/13/2019 Time: 17:22 Bed 24 Private MD: Diagnosis: COPD Exacerbation Presentation: 02/13 17:35 Presenting complaint: EMS states: patient was having shortness of breath and mg2 tachycardia of 130 bpm today. on scene patient was on his CPAP, saturating at 95%. Mag 2g, Cardizem 20 mg, solu medrol 125 mg and normal saline given. Transition of care: patient was not received from another setting of care. Onset of symptoms was February 13, 2019. Risk Assessment: Do you want to hurt yourself or someone else? Patient reports no desire to harm self or others. Initial Sepsis Screen: Does the patient meet any 2 criteria? No. Patient's initial sepsis screen is negative. Does the patient have a suspected source of infection? No. Patient's initial sepsis screen is negative. Care prior to arrival: Medication(s) given:. 17:35 Method Of Arrival: EMS: [facility] mg2 17:35 Acuity: CHEO 2 mg2 Triage Assessment: 18:09 General: Appears in no apparent distress. comfortable. Respiratory: Onset: The mg2 symptoms/episode began/occurred gradually, the patient has moderate shortness of breath. Respiratory: Reports shortness of breath. Historical: - Allergies: 17:57 CEPHALOSPORINS; mg2 17:57 Sulfa (Sulfonamide Antibiotics); mg2 17:57 Tetanus Immune Globulin; mg2 - Home Meds: 17:57 Amiodarone Oral once daily [Active]; aspirin 81 mg Oral TbEC 1 tab once daily [Active]; mg2 atorvastatin 10 mg Oral tab 1 tab once daily [Active]; Breo Ellipta 200-25 mcg/dose inhalation dsdv 1 puff once daily [Active]; Bumetanide Oral [Active]; clopidogrel 75 mg Oral tab 1 tab once daily [Active]; Coreg Oral 2 times per day [Active]; Entresto Oral 2 times per day [Active]; Flomax 0.4 mg Oral cp24 once daily [Active]; Incruse Ellipta 62.5 mcg/actuation inhalation dsdv 1 puff once daily [Active]; irbesartan 150 mg Oral tab 1 tab once daily [Active]; Lantus 100 unit/mL Sub-Q soln 20 unit nightly [Active]; losartan Oral [Active]; Magnesium Oxide Oral [Active]; metformin 500 mg Oral tab 2 times per day [Active]; Mucinex Oral [Active]; Norvasc 10 mg Oral tab once daily [Active]; tramadol 50 mg Oral tab 1 tab every 6 hours [Active]; vancomycin intravenous [Active]; - PMHx: 17:57 COPD; Diabetes - NIDDM; Emphysema; Home O2 5LNC; Hypertension; Atrial Fib; CHF; mg2 - Immunization history:: Pneumococcal vaccine is up to date, Flu vaccine is up to date. - Social history:: Smoking status: Patient/guardian denies using tobacco, Patient/guardian denies using alcohol, street drugs, IV drugs. - Ebola Screening: : No symptoms or risks identified at this time. Screenin:08 Abuse screen: Denies threats or abuse. Denies injuries from another. Nutritional mg2 screening: No deficits noted. Tuberculosis screening: No symptoms or risk factors identified. Fall Risk IV access (20 points). Assessment: 18:06 Reassessment: BIPAP started by the RT on patient's arrival. General: Appears in no mg2 apparent distress. comfortable, Behavior is calm, cooperative. Pain: Denies pain. Neuro: Level of Consciousness is awake, alert, obeys commands, Oriented to person, place, time, situation. Cardiovascular: Reports palpitations, Rhythm is. Respiratory: Airway is patent Respiratory effort is even, unlabored, on BIPAP, Tolerating. GI: No signs and/or symptoms were reported involving the gastrointestinal system. : No signs and/or symptoms were reported regarding the genitourinary system. EENT: No signs and/or symptoms were reported regarding the EENT system. Derm: Skin is intact, is healthy with good turgor, Skin is pink, warm \T\ dry. normal. Musculoskeletal: Circulation, motion, and sensation intact. Capillary refill < 3 seconds. 19:17 Respiratory: mg2 19:18 Reassessment: dr Phoenix came and examined the patient and advised to admit the patient mg2 in ICU. 19:35 Reassessment: dr phoenix contacted about the heart rate and blood pressure and ordered mg2 to give fluids. 19:40 Reassessment: pt requesting food EDP gave verbal order pt may be removed from Bipap to bb eat as tolerated. Vital Signs: 17:38 BP 108 / 61; Pulse 88; Resp 25; Temp 97.6(A); Pulse Ox 98% on 40% BiPAP; Weight 86.18 mg2 kg; Height 5 ft. 11 in. (180.34 cm); Pain 0/10; 19:06 BP 102 / 65; Pulse 91; Resp 24; Pulse Ox 100% on BiPAP; mg2 19:16 BP 95 / 56; Pulse 130; Resp 24; Pulse Ox 100% on 40% BiPAP; mg2 19:27 BP 99 / 75; mg2 20:10 BP 120 / 78; Pulse 130; Resp 24; Pulse Ox 100% on 40% BiPAP; mg2 17:38 Body Mass Index 26.50 (86.18 kg, 180.34 cm) mg2 ED Course: 17:22 Patient arrived in ED. iw 17:34 Sherman Garza, RN is Primary Nurse. mg2 17:38 Triage completed. mg2 18:01 Eduardo Ventura MD is Attending Physician. kdr 18:04 XRAY Chest (1 view) In Process Unspecified. EDMS 18:06 Arm band placed on. mg2 18:08 No provider procedures requiring assistance completed. Maintain EMS IV. Dressing mg2 intact. Good blood return noted. Site clean \T\ dry. Gauge \T\ site: 18 \T\ RFA. 18:09 Patient has correct armband on for positive identification. mg2 19:04 Spenser Phoenix DO is Hospitalizing Provider. kdr 19:41 Diet: Patient given a regular meal tray. bb 20:43 Patient admitted, IV remains in place. mg2 Administered Medications: 18:59 Not Given (patient already received from the EMS): SOLU-Medrol 125 mg IVP once mg2 19:33 Drug: NS 0.9% 250 ml Route: IV; Rate: bolus; Site: right forearm; mg2 20:11 Follow up: Response: No adverse reaction; IV Status: Completed infusion; IV Intake: mg2 250ml Point of Care Testing: Blood Glucose: 17:38 Blood Glucose: 143 mg/dL; mg2 Ranges: Intake: 20:11 IV: 250ml; Total: 250ml. mg2 Outcome: 19:05 Decision to Hospitalize by Provider. kdr 20:43 Admitted to ICU accompanied by nurse, accompanied by tech, via stretcher, room 6, with mg2 oxygen, on monitor, with chart, Report called to VIKTORIYA Lua 20:43 Condition: stable 20:43 Instructed on the need for admit, Demonstrated understanding of instructions. 21:08 Patient left the ED. mg2 Signatures: Dispatcher [employer] EDMS Eduardo Ventura MD MD kdr Terese Giron RN RN Karen Khan RN RN iw Gardose, Michele, RN RN mg2 Corrections: (The following items were deleted from the chart) 17:38 17:35 Care prior to arrival: None. mg2 mg2 17:43 17:38 BP 108 / 61; Pulse 88bpm; Resp 25bpm; Pulse Ox 98% 02 40% BiPAP; 86.18 kg; Height mg2 5 ft. 11 in.; BMI: 26.5; Pain 0/10; mg2
[2019-02-13] MEDS ORDERED: NA CHLORIDE 0.9% 250 ML ONE (19:30)
--- NOTE | 2019-02-13 20:27 | P.HP ---
Certification for Inpatient Patient admitted to: Inpatient With expected LOS: >2 Midnights Patient will require the following post-hospital care: Prison Practitioner: I am a practitioner with admitting privileges, knowledge of patient current condition, hospital course, and medical plan of care. Services: Services provided to patient in accordance with Admission requirements found in Title 42 Section 412.3 of the Code of Federal Regulations Patient History Date of Service: 02/13/19 Primary Care Provider: None; Cardiology-Dr. Lindsay; Pulmonary-Dr. 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 Patient has had multiple admissions for acute on chronic respiratory failure. Patient presented with increasing shortness of breath. Family had noted that he required more oxygen than normal. He has increasing shortness of breath with exertion. As his condition continued to decline family brought the patient to the ER for evaluation. In the ER patient was placed on BiPAP. Initial blood gases showed a pH is 7.46 with a PC of 247, PO2 of 118 and a bicarb of 33. Chest x-ray showed emphysematous changes. White count 6.0, hemoglobin 11.9. Platelet count 237. BMP at 9:00 p.m.. Troponin unremarkable. Sodium 142, potassium 4.0, chloride 104, bicarb 32, BUN of 24, creatinine 1.43 with a GFR 42. Patient was admitted for further evaluation and treatment. When I came to see the patient patient was still on BiPAP. Family at bedside. Family reports the patient has increasing shortness of breath. It is been difficult to manage at home. reports that he uses oxygen and takes his medications. Family reports no fever, chills. Allergies Cephalosporins Allergy (Verified 08/10/16 16:33) Shortness of breath Sulfa (Sulfonamide Antibiotics) Allergy (Verified 08/10/16 16:33) Nausea/Vomiting tetanus immune globulin Allergy (Verified 08/10/16 16:33) Anaphylaxis Home medications list reviewed: Yes Home Medications: Metformin ER [Glucophage ER*] 500 mg PO BID 06/02/14 Tamsulosin [Flomax*] 0.4 mg PO BEDTIME 06/02/14 Aspirin 81 mg PO DAILY 08/10/16 Guaifenesin [Mucinex] 600 mg PO BID 08/10/16 Amiodarone HCl [Pacerone] 1 tab PO DAILY 01/14/19 Atorvastatin Calcium 1 tab PO BEDTIME 01/14/19 Clopidogrel Bisulfate [Clopidogrel] 75 mg PO DAILY 01/14/19 Fluticasone Propionate [Flovent Diskus] 1 puff IH BID PRN 01/14/19 Fluticasone/Vilanterol [Breo Ellipta 200-25 Mcg INH] 1 puff IH DAILY PRN Hydrocodone 5/APAP 325 [[place] 5/325*] 1 tab PO DAILY PRN 01/14/19 Ipratropium/Albuterol Sulfate [Combivent Respimat 20-100 Mcg] 2 puff IH Q4H PRN 01/14/19 Ipratropium/Albuterol Sulfate [Iprat-Albut 0.5-3(2.5) mg/3 ml] 3 ml IH Q4H PRN 01/14/19 Magnesium Oxide [Magnesium] 1 tab PO DAILY 01/14/19 Tramadol HCl [Ultram] 1 tab PO Q6H PRN 01/14/19 Zinc Oxide/Petrolatum,White [[place] Moist Barrier Cream] 1 appl TOP BID 04/25 Arformoterol Tartrate [Brovana] 15 mcg IH BIDP PRN 30 Days #60 ml 01/21/19 Ipratropium Neb [Atrovent*] 0.5 mg IH Q6HP PRN 30 Days #120 amp 01/21/19 Carvedilol [Coreg*] 12.5 mg PO BID 6AM 6PM 01/28/19 Ranitidine [Zantac*] 1 tab PO DAILY 01/28/19 Sacubitril/Valsartan [Entresto 24 mg-26 mg Tablet] 1 tab PO BID 01/28/19 Furosemide [Lasix] 40 mg PO DAILY #30 tab 01/30/19 levoFLOXacin [Levaquin] 750 mg PO DAILY #10 tab 01/30/19 - Past Medical/Surgical History Diabetic: Yes -: HTN -: Diabetes mellitus type 2, non insulin dependent -: End-stage COPD, chronic oxygen use -: Biventricular systolic CHF, EF 25% -: History Bladder cancer -: Tobacco abuse -: Hyperlipidemia -: History of CABG x2 vessel -: PVD -: History of brain aneurysm with surgery -: Hernia repair -: CABG x2 vessels -: Brain aneurysm surgery Psychosocial/ Personal History: Patient lives at home. - Family History Father -: Cancer Notes: father with cancer - Social History Smoking Status: Former smoker Alcohol use: Yes CD- Drugs: No Caffeine use: No Place of Residence: Home Review of Systems General: Weakness, Malaise, As per HPI Eyes: Unremarkable ENT: Unremarkable Respiratory: Shortness of Breath, SOB with Excertion, Wheezing, As per HPI Cardiovascular: Paroxysmal Noc. Dyspnea, As per HPI Gastrointestinal: Unremarkable Genitourinary: Unremarkable Musculoskeletal: Unremarkable Integumentary: Unremarkable Neurological: Weakness, As per HPI Lymphatics: Unremarkable Physical Examination - Physical Exam General: Alert, Oriented x3, Cooperative, Mild distress, Other (Patient currently on BiPAP.) HEENT: Atraumatic, Normocephalic, PERRLA, Other (Dry mucous membranes) Neck: Supple, No Thyromegaly Respiratory: Diminished (Bilateral), Expiratory wheezes (Bilateral), Inspiratory wheezes (Bilateral) Cardiovascular: Irregular heart rate/rhythm (Atrial fibrillation, rate around 110-120) Gastrointestinal: Normal bowel sounds, Soft and benign, Non-distended, No tenderness, No masses, No rebound, No guarding Musculoskeletal: No contractures, No erythema, No tenderness, No warmth Integumentary: No tenderness/swelling, No erythema, No warmth, No cyanosis Neurological: Normal speech, Normal strength at 5/5 x4 extr, Normal tone, Normal affect - Studies Laboratory Data (last 24 hrs) 02/13/19 17:30: PT 12.3, INR 1.04 02/13/19 17:30: WBC 6.0, Hgb 11.9 L, Hct 38.1 L, Plt Count 237 02/13/19 17:30: Sodium 142, Potassium 4.0, BUN 24 H, Creatinine 1.63 H, Glucose 134 H, Magnesium 3.9 H* D, Total Bilirubin 0.3, AST 10 L, ALT 19, Alkaline Phosphatase 73 Assessment and Plan - Plan Impression: Acute on chronic respiratory failure with hypercapnia and hypoxia secondary to 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 Will continue with BiPAP. Will have respiratory wean off BiPAP if possible. Will continue with COPD medication including IV Solu-Medrol, Brovana, Xopenex and Atrovent. Continue to monitor and assess. Pulmonology has been consulted for further recommendation and treatment. Patient likely will require skilled placement at discharge. Will also need to consider noninvasive ventilator at home as the patient has multiple admissions with requirement of BiPAP. Will start DVT prophylaxis-Lovenox. Will continue monitor closely. Likely discharge in the next 3-5 days with clinical improvement. Daytime hospital team will continue his care. Chronic systolic CHF: Will continue with a 1500 cc per day fluid restriction. Will continue with Entresto 24/26 mg 1 pill twice daily, Lasix 40 mg 1 pill twice daily. Will monitor and adjust appropriately. Atrial fibrillation not on chronic anti coagulation therapy: Continue with amiodarone 200 mg daily. Will consult cardiology for further recommendation. Patient on Lovenox for DVT prophylaxis. Continue also continue with carvedilol 12.5 mg 1 pill twice daily. Hypertension: Continue carvedilol 12.5 mg 1 pill twice daily. Will adjust accordingly. Diabetes mellitus type 2, non-insulin dependent: Will continue Accu-Cheks and sliding scale. GERD: Continue with Protonix 40 mg daily. BPH: Continue Flomax 0.4 mg daily. Hyperlipidemia: Will continue with Lipitor 40 mg daily. CAD with prior CABG: Will continue with aspirin 81 mg daily. Will monitor cardiac enzymes and telemetry. Cardiology consulted to further monitor. Former tobacco use Discharge Plan: Other ([facility] facility) Plan to discharge in: Greater than 2 days - Advance Directives Does patient have a Living Will: Yes Does patient have a Durable POA for Healthcare: Yes - Code Status/Comfort Care Code Status Assessed: Yes (Patient is do not resuscitate) Time Spent Managing Pts Care (In Minutes): 65
[2019-02-13] MEDS ORDERED: ONDANSETRON 4 MG/2 ML VIAL IV PRN (21:29)
[2019-02-13] MEDS ORDERED: ACETAMINOPHEN 650MG/RECT SUPP RECT PRN (21:29)
[2019-02-13] MEDS ORDERED: ACETAMINOPHEN 500 MG TAB PO PRN (21:29)
[2019-02-13] MEDS ORDERED: METHYLPREDNISOLONE 125 MG INJ IV SCH (21:29)
[2019-02-13] MEDS: GUAIFENESIN 600 MG SA TAB PO SCH (22:16)
[2019-02-13] MEDS: SACUBITRIL/VALSARTAN 24/26 MG TAB PO SCH (22:16)
[2019-02-13] MEDS: TAMSULOSIN 0.4 MG SR CAP PO SCH (22:16)
[2019-02-13] MEDS: ATORVASTATIN 40 MG TAB PO SCH (22:17)
[2019-02-13] MEDS: INSULIN -REGULAR HUMAN 50 UNIT/0.5 ML ML SQ SCH (22:30)
[2019-02-13] MEDS: ARFORMOTEROL TARTRATE 15 MCG/2 ML VIAL.NEB NEB SCH (22:40)
[2019-02-13] MEDS: IPRATROPIUM BROM 0.5MG/2.5ML NEB PRN (22:40)
[2019-02-13] MEDS: LEVALBUTEROL 0.63 MG/3 ML NEB NEB PRN (22:40)
[2019-02-13 23:27] LABS: CKMB Creatine Kinase MB 1.7 ng/mL (0.3-3.6); Creatine Phosphokinase 34 U/L (39-308); Troponin I < 0.02 ng/mL (0.0-0.045)
[2019-02-14] MEDS ORDERED: METHYLPREDNISOLONE 125 MG INJ IV SCH (01:00)
[2019-02-14] MEDS: CARVEDILOL 12.5 MG TAB PO SCH ×2 (05:50→17:42)
[2019-02-14 05:51] LABS: Absolute Lymphocytes (CBC) 0.4 K/uL (0.7-4.9); Basophils % 0.1 % (0-1.3); Hematocrit 38.2 % (39.6-49.0); Lymphocytes % 9.3 % (15.3-44.8); MPV 8.5 fL (7.6-11.3); RBC Red Blood Cell Count 4.83 M/uL (4.33-5.43)
[2019-02-14] MEDS: PANTOPRAZOLE 40MG TABLET PO SCH (05:51)
[2019-02-14 06:14] LABS: CKMB Creatine Kinase MB 1.5 ng/mL (0.3-3.6); Creatine Phosphokinase 27 U/L (39-308); Troponin I < 0.02 ng/mL (0.0-0.045)
[2019-02-14 07:05] LABS: Potassium 3.8 mmol/L (3.5-5.1); Thyroid Stimulating Hormone 1.71 uIU/mL (0.360-3.740)
[2019-02-14 07:11] LABS: Blood Morphology Comment NOTED (NOT SEEN); Burr Cells 2+; Platelet Estimate ADEQ
[2019-02-14] MEDS: INSULIN -REGULAR HUMAN 50 UNIT/0.5 ML ML SQ SCH ×5 (07:30→23:00)
--- NOTE | 2019-02-14 07:40 | EKG ---
Test Date: 2019-02-13 Test Time: 17:31:07 Varnish Melter Helper: IRA MEASUREMENT RESULTS: Intervals: Rate: 88 ND: QRSD: 142 QT: 448 QTc: 542 [place]: P: ND: QRS: -77 T: 109 INTERPRETIVE STATEMENTS: Atrial flutter with variable AV blcok Right bundle branch block Septal infarct, age undetermined Possible Inferior infarct, age undetermined Left anterior fascicular block Abnormal ECG Compared to ECG 01/28/2019 09:28:29 Myocardial infarct finding still present T-wave abnormality still present Electronically Signed On 02-14-19 07:39:42 CDT by Ric Hudson
[2019-02-14] MEDS: LEVALBUTEROL 0.63 MG/3 ML NEB NEB PRN ×2 (07:46→20:10)
[2019-02-14] MEDS: ARFORMOTEROL TARTRATE 15 MCG/2 ML VIAL.NEB NEB SCH ×2 (07:46→20:10)
[2019-02-14] MEDS: IPRATROPIUM BROM 0.5MG/2.5ML NEB PRN ×2 (07:46→20:10)
--- NOTE | 2019-02-14 08:49 | P.CNS ---
Date of Consult: 02/14/19 Primary Care Provider: None; Cardiology-Dr. Lindsay; Pulmonary-Dr. Lerner Chief Complaint: Shortness of breath History of Present Illness: Patient is 73 years of age well known to me was recently discharged from the hospital history of congestive heart failure COPD has not improved since discharge titrate loan him a CPAP machine from my office patient is too short of breath to have a sleep study done doing better has cough congestion PVC patient has Pseudomonas Aeromonas and Mr GIBBONS isolated from the sputum Allergies Cephalosporins Allergy (Verified 08/10/16 16:33) Shortness of breath Sulfa (Sulfonamide Antibiotics) Allergy (Verified 08/10/16 16:33) Nausea/Vomiting tetanus immune globulin Allergy (Verified 08/10/16 16:33) Anaphylaxis Home Medications: Amiodarone HCl [Cordarone Tab] 200 mg PO DAILY 02/13/19 Aspirin [Aspirin EC 81 MG] 81 mg PO DAILY 02/13/19 Atorvastatin Calcium [Lipitor] 40 mg PO BEDTIME 02/13/19 Bumetanide [Bumex] 1 mg PO 02/13/19 Carvedilol [Coreg] 12.5 mg PO BID 02/13/19 Clopidogrel Bisulfate [Plavix] 75 mg PO DAILY 02/13/19 Sacubitril/Valsartan [Entresto 24 mg-26 mg Tablet] 1 tab PO BID 02/13/19 Tamsulosin [Flomax] 0.4 mg PO BEDTIME 02/13/19 Furosemide [Lasix] 40 mg PO BID 02/14/19 Metformin HCl [Glucophage] 500 mg PO BIDWM 02/14/19 Tramadol HCl [Ultram] 50 mg PO Q6HP PRN 02/14/19 - Past Medical/Surgical History Diabetic: Yes -: HTN -: Diabetes mellitus type 2, non insulin dependent -: End-stage COPD, chronic oxygen use -: Biventricular systolic CHF, EF 25% -: History Bladder cancer -: Tobacco abuse -: Hyperlipidemia -: History of CABG x2 vessel December 2018 -: PVD -: History of brain aneurysm with surgery -: Hernia repair -: CABG x2 vessels -: Brain aneurysm surgery Psychosocial/ Personal History: Patient lives at home. - Family History Father Medical History: Hypertension, Cancer Notes: father with cancer - Social History Smoking Status: Former smoker Alcohol use: No CD- Drugs: No Caffeine use: Yes Place of Residence: Home Review of Systems General: Weakness Respiratory: Cough Physical Examination Temp Pulse Resp BP Pulse Ox 97.8 F 81 17 135/68 100 02/14/19 00:00 02/14/19 08:00 02/14/19 08:00 02/14/19 08:00 02/14/19 08:00 General: Alert, Oriented x3 Respiratory: Crackles/rales, Expiratory wheezes Cardiovascular: No edema, Irregular heart rate/rhythm Laboratory Data (last 24 hrs) 02/13/19 17:30: PT 12.3, INR 1.04 02/13/19 17:30: WBC 6.0, Hgb 11.9 L, Hct 38.1 L, Plt Count 237 02/13/19 17:30: Sodium 142, Potassium 4.0, BUN 24 H, Creatinine 1.63 H, Glucose 134 H, Magnesium 3.9 H* D, Total Bilirubin 0.3, AST 10 L, ALT 19, Alkaline Phosphatase 73 - Problems (1) Respiratory failure Current Visit: Yes Status: Acute Plan: Patient is 73 years of age was recently discharged from the hospital admitted with worsening dyspnea cough congestion severe congestive heart failure was using CPAP at home the tiptoes organisms isolated add p.o. levofloxacin sputum cultures belt changer to p.o. prednisone continue with bronchodilators Dc amiodarone no change in the chest x-ray labs reviewed start on IV Lasix repeat sputum cultures Qualifiers: Chronicity: acute on chronic
[2019-02-14] MEDS ORDERED: CLOPIDOGREL 75 MG TABLET PO SCH (09:00)
[2019-02-14] MEDS ORDERED: FUROSEMIDE 40 MG TABLET PO SCH (09:00)
[2019-02-14] MEDS ORDERED: ENOXAPARIN 40 MG/0.4 ML SQ SCH (09:00)
[2019-02-14] MEDS ORDERED: AMIODARONE HCL 200 MG TAB PO SCH (09:00)
[2019-02-14] MEDS ORDERED: ASPIRIN EC 81 MG TAB PO SCH (09:00)
[2019-02-14] MEDS: ENOXAPARIN 80 MG/0.8 ML SQ SCH ×2 (09:09→22:59)
[2019-02-14] MEDS: FUROSEMIDE 40 MG/4 ML VIAL IV SCH ×2 (09:09→16:34)
[2019-02-14] MEDS: SACUBITRIL/VALSARTAN 24/26 MG TAB PO SCH ×2 (09:10→21:33)
[2019-02-14] MEDS: predniSONE 20 MG TAB PO SCH ×2 (09:10→21:33)
[2019-02-14] MEDS: levoFLOXacin 500 MG TAB PO SCH (09:10)
[2019-02-14] MEDS: GUAIFENESIN 600 MG SA TAB PO SCH ×2 (09:10→21:34)
--- NOTE | 2019-02-14 09:39 | CON ---
Reason For Consultation: Dyspnea. History Of Present Illness: Mr. Hauser was found to have severe coronary heart disease. He under went bypass surgery in late December 2018, so roughly 6 weeks ago. Since then, he has been in the hospit al several times for severe respiratory problems. He has chronic atrial fibrillation now. He has re developed atrial fibrillation or flutter despite therapy with amiodarone. We are suspicious amiodaro ne is contributing to his respiratory difficulties. I recommended to stop it. Our focus will be rat e control and anticoagulation. I would recommend he be anticoagulated with Lovenox while here in the hospital, but go home taking Xarelto. He should not need to be on aspirin or Plavix as long as he i s on an anticoagulant. He has not had any recent stents. Aspirin and Plavix can be stopped so that the anticoagulant can be tolerated perhaps more easily. The patient is mildly anemic, mildly hypochr omic. He has normal cardiac enzymes. He is known to have congestive heart failure. Ejection fracti on after the bypass surgery was depressed. We have him on Entresto and a low-dose beta luke. His most recent echocardiogram showed ejection fraction 15% to 20%. He does not have a defibrillator. If his ejection fraction does not improve with him on Entresto for several months, he should probably get a defibrillator. His main problem seems to be when he is short of breath that he is not in pulm onary edema, does not appear to have pneumonia or mass, he has a tiny left pleural effusion, but he h as copious amounts of phlegm. Overnight, he feels much better. The main therapy was antibiotics and steroids. I suspect his sputum may be infected with an opportunistic organism, perhaps one has hossein en worse because of recent antibiotic therapy within the past month. 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 It could be that, that is cleared, it could be that it is still p resent or recurred after seemingly being eradicated. I would recommend we continue present medications, look for unusual sputum infections, avoid amiodaro ne, anticoagulate and rate control. ROCAEL/NOHELIA Voice ID: [id number] Report ID: [id number]
--- NOTE | 2019-02-14 15:36 | PN ---
Date of Progress Note: 02/14/2019 The patient was seen and examined. Chart reviewed and case discussed with RN, Dr. Hudson and Dr. Lerner. Patient states he is somewhat better than yesterday. Still having significant amount of cough with phlegm. Medications: List reviewed. Code Status: Do not resuscitate. Family at the bedside. Physical Examination: Vital Signs: Temperature 97.6, heart rate 81, blood pressure 135/68, respirations 17, O2 at 100% on BiPAP 40% FiO2. General: Awake, alert, oriented x3. Elderly male, ill appearing, in some mild respiratory distress. CV: S1, S2, irregularly irregular. Peripheral pulses present. Respiratory: Diminished breath sounds. rales heard. No wheezing or stridor. Gastrointestinal: Abdomen is soft, nontender, nondistended. Positive bowel sounds. Extremities: No clubbing, cyanosis. Minimal pedal edema. Neuro: Cranial nerves 2 through 12 intact grossly. No focal neurological deficit. Speech is normal. Laboratory Data: Sodium 144, potassium 3.8, chloride 106, CO2 of 33, BUN 26, creatinine 1.51, glucose 152, calcium 8.7, magnesium 3. Troponin less than 0.02. TSH 1.7. WBC 4.2, H and H 12.3 and 38.2, platelets 184, neutrophils 89% . Cultures have not been obtained yet. Assessment And Plan: A 73-year-old male with: 1. Acute on chronic respiratory failure with hypercapnia and hypoxia secondary to chronic obstructive pulmonary disease, congestive heart failure . We will continue with BiPAP and wean off as tolerated. 2. Acute on chronic systolic congestive heart failure. We will continue with fluid restriction, Entresto, beta-luke and Lasix IV. Monitor I's and O's. 3. Atrial fibrillation, chronic. Amiodarone has been discontinued due to possible pulmonary toxicity. The patient is now on Lovenox full dose for anticoagulation and continue with Coreg for rate control. Appreciate Dr. Hudson ' input. 4. End-stage chronic obstructive pulmonary disease. We will continue with breathing treatments and steroids, appreciate Pulmonology input. We will repeat sputum cultures. The patient was previously being treated for MRSA and Pseudomonas in the sputum. 5. Essential hypertension. We will continue with home medications as appropriate. 6. Diabetes mellitus type 2, [id number]. We will continue with Accu-Cheks and sliding scale insulin. 7. Gastroesophageal reflux disease. We will continue with Protonix daily. 8. Benign prostatic hyperplasia. Continue Flomax daily, stable. 9. Mixed hyperlipidemia. Continue Lipitor. 10. Coronary artery disease status post coronary artery bypass graft with depressed ejection fraction. No angina. We will continue with home medications. Aspirin and Plavix have been discontinued as the patient is now on full-dose anticoagulation. The patient does not have any recent stents. Appreciate Cardiology input. 11. Deep venous thrombosis prophylaxis addressed. The patient is on Lovenox. Plan: Step down from ICU. /NOHELIA Voice ID: [id number] Report ID: [id number]
[2019-02-14] MEDS ORDERED: LORAZEPAM 0.5 MG TABLET PO ONE (20:49)
[2019-02-14] MEDS: TAMSULOSIN 0.4 MG SR CAP PO SCH (21:34)
[2019-02-14] MEDS: ATORVASTATIN 40 MG TAB PO SCH (21:34)
[2019-02-14] MEDS: JUVEN PACKET PO SCH (21:34)
[2019-02-14] MEDS: THEOPHYLLINE SR 100 MG TAB PO SCH (21:34)
[2019-02-15] MEDS: TEMAZEPAM 15 MG CAP PO PRN ×2 (01:14→21:57)
[2019-02-15 04:59] LABS: Absolute Lymphocytes (CBC) 0.6 K/uL (0.7-4.9); Basophils % 0.2 % (0-1.3); Lymphocytes % 4.5 % (15.3-44.8); MPV 8.9 fL (7.6-11.3); RBC Red Blood Cell Count 4.59 M/uL (4.33-5.43)
[2019-02-15 05:23] LABS: Magnesium 2.5 mg/dL (1.8-2.4); Potassium 3.8 mmol/L (3.5-5.1)
[2019-02-15] MEDS: CARVEDILOL 12.5 MG TAB PO SCH (05:48)
[2019-02-15] MEDS: PANTOPRAZOLE 40MG TABLET PO SCH (06:13)
[2019-02-15 06:22] LABS: Blood Morphology Comment NOT SEEN (NOT SEEN); Platelet Estimate ADEQ; Urine White Blood Cell Casts OK
[2019-02-15] MEDS: INSULIN -REGULAR HUMAN 50 UNIT/0.5 ML ML SQ SCH ×4 (07:30→20:38)
[2019-02-15] MEDS: ARFORMOTEROL TARTRATE 15 MCG/2 ML VIAL.NEB NEB SCH ×2 (08:40→20:00)
[2019-02-15] MEDS: LEVALBUTEROL 0.63 MG/3 ML NEB NEB PRN (08:40)
[2019-02-15] MEDS: IPRATROPIUM BROM 0.5MG/2.5ML NEB PRN (08:40)
[2019-02-15] MEDS ORDERED: POTASSIUM CL SA 10 MEQ TAB PO ONE (09:00)
[2019-02-15] MEDS ORDERED: ASPIRIN EC 81 MG TAB PO SCH (09:00)
[2019-02-15] MEDS: predniSONE 20 MG TAB PO SCH ×2 (09:24→20:37)
[2019-02-15] MEDS: SACUBITRIL/VALSARTAN 24/26 MG TAB PO SCH ×2 (09:24→20:37)
[2019-02-15] MEDS: GUAIFENESIN 600 MG SA TAB PO SCH ×2 (09:24→20:37)
[2019-02-15] MEDS: levoFLOXacin 500 MG TAB PO SCH (09:25)
[2019-02-15] MEDS: FUROSEMIDE 40 MG/4 ML VIAL IV SCH ×2 (09:26→17:41)
[2019-02-15] MEDS: ENOXAPARIN 80 MG/0.8 ML SQ SCH ×2 (09:27→20:35)
[2019-02-15] MEDS: THEOPHYLLINE SR 100 MG TAB PO SCH (10:43)
[2019-02-15] MEDS: TRAMADOL HCL 50 MG TAB PO PRN ×2 (10:43→20:48)
[2019-02-15] MEDS: JUVEN PACKET PO SCH ×2 (10:51→22:03)
--- NOTE | 2019-02-15 11:11 | P.CNS ---
Date of Consult: 02/15/19 Primary Care Provider: None; Cardiology-Dr. Lindsay; Pulmonary-Dr. Lerner Chief Complaint: Shortness of breath History of Present Illness: Not doing well. C/o SOB Allergies Cephalosporins Allergy (Verified 08/10/16 16:33) Shortness of breath Sulfa (Sulfonamide Antibiotics) Allergy (Verified 08/10/16 16:33) Nausea/Vomiting tetanus immune globulin Allergy (Verified 08/10/16 16:33) Anaphylaxis Home Medications: Amiodarone HCl [Cordarone Tab] 200 mg PO DAILY 02/13/19 Aspirin [Aspirin EC 81 MG] 81 mg PO DAILY 02/13/19 Atorvastatin Calcium [Lipitor] 40 mg PO BEDTIME 02/13/19 Carvedilol [Coreg] 12.5 mg PO BID 02/13/19 Clopidogrel Bisulfate [Plavix] 75 mg PO DAILY 02/13/19 Sacubitril/Valsartan [Entresto 24 mg-26 mg Tablet] 1 tab PO BID 02/13/19 Tamsulosin [Flomax] 0.4 mg PO BEDTIME 02/13/19 Albuterol Sulfate [Proair Hfa] 8.5 gm IH Q4HR PRN 02/14/19 Furosemide [Lasix] 40 mg PO BID 02/14/19 Guaifenesin [Mucinex] 600 mg PO BID 02/14/19 Levalbuterol HCl 1 vial NEB Q4HR PRN 02/14/19 Magnesium Oxide [Magnesium] 400 mg PO DAILY 02/14/19 Metformin HCl [Glucophage] 500 mg PO BIDWM 02/14/19 Ranitidine [Zantac*] 1 tab PO DAILY 02/14/19 Theophylline Anhydrous [Theophylline] 300 mg PO BID 02/14/19 Tramadol HCl [Ultram] 50 mg PO Q6HP PRN 02/14/19 - Past Medical/Surgical History Diabetic: Yes -: HTN -: Diabetes mellitus type 2, non insulin dependent -: End-stage COPD, chronic oxygen use -: Biventricular systolic CHF, EF 25% -: History Bladder cancer -: Tobacco abuse -: Hyperlipidemia -: History of CABG x2 vessel December 2018 -: PVD -: History of brain aneurysm with surgery -: Hernia repair -: CABG x2 vessels -: Brain aneurysm surgery Psychosocial/ Personal History: Patient lives at home. - Family History Father Medical History: Hypertension, Cancer Notes: father with cancer - Social History Smoking Status: Former smoker Alcohol use: No CD- Drugs: No Caffeine use: Yes Place of Residence: Home Review of Systems General: Weakness Respiratory: Cough, Shortness of Breath Physical Examination Temp Pulse Resp BP Pulse Ox 97.9 F 97 H 20 107/59 L 96 02/15/19 08:00 02/15/19 09:26 02/15/19 08:00 02/15/19 09:26 02/15/19 08:00 General: Alert HEENT: Atraumatic Respiratory: Clear to auscultation bilaterally Cardiovascular: No edema, Regular rate/rhythm, Normal S1 S2 Gastrointestinal: Normal bowel sounds, Soft and benign Musculoskeletal: No clubbing, No contractures Integumentary: No rashes, No significant lesion Neurological: Normal gait External genitalia: No edema - Problems (1) Respiratory failure Current Visit: Yes Status: Acute Plan: Worse c/o SOB.d/c Homar. Cw lasix. BIPAP. Qualifiers: Chronicity: acute on chronic
[2019-02-15 12:03] LABS: Arterial Blood Carboxyhemoglob 1.2 % (0-1.5); Blood Gas Oxyhemoglobin 87.3 % (94-97); Blood O2 Saturation 88.9 % (92-98.5)
--- NOTE | 2019-02-15 14:01 | PN ---
Date of Progress Note: 02/15/2019 Subjective: Patient is seen and examined. Chart was reviewed and case was discussed with RN. Eric ponce states he is still having a significant amount of cough with sputum production. Otherwise, breath ing is doing okay. Medications: List was reviewed. Physical Examination: Vital Signs: Temperature 97.3; heart rate 92; blood pressure 112/57; respirations 15; O2 saturation 98% on BiPAP, 40% FiO2. General: Awake, alert, oriented x3. Elderly male, in some mild respiratory distress. CV: S1, S2. Irregularly irregular. Peripheral pulses present. Respiratory: Diminished breath sounds. Some crackles present. No wheezing or stridor. Gastrointestinal: Abdomen is soft, nontender, nondistended. Positive bowel sounds. Extremities: No clubbing, cyanosis, or edema. Neurologic: Nonfocal. Laboratory Data: Sodium 142, potassium 3.8, chloride 104, CO2 33, BUN 39, creatinine 1.46, glucose 1 54, calcium 8.4. Magnesium 2.5. WBC 12.5, H and H 11.7/36, platelets 199, neutrophils 90%. Sputum cultures pending. Assessment And Plan: A 73-year-old male with: 1.Mscfq-xw-nucvzru respiratory failure with hypercapnia and hypoxia secondary to chronic obstructive pulmonary disease and congestive heart failure. We will continue with BiPAP, wean as tolerated, imp roving. 2.Xjvis-wl-osxzjum systolic congestive heart failure. We will continue with fluid restriction. Mon itor I's and O's strictly. Daily weights. Continue with Entresto or beta-luke and IV diuretics. Appreciate Dr. Hudson' input. 3.Atrial fibrillation and atrial flutter, chronic. Continue with Lovenox for anticoagulation and Co reg for rate control. We will switch to oral anticoagulants once the patient is discharged. 4.End-stage chronic obstructive pulmonary disease. We will continue with breathing treatments and s teroids. Repeat sputum cultures are pending. Patient was previously being treated for MRSA and pseu domonas in the sputum. 5.Essential hypertension. We will continue with home medications as appropriate. 6.Diabetes mellitus type 2, non-insulin requiring with hyperglycemia. We will continue Accu-Cheks a nd sliding scale insulin. 7.Gastroesophageal reflux disease. We will continue with Protonix. 8.Benign prostatic hyperplasia. Continue Flomax. Stable. 9.Mixed hyperlipidemia. Continue Lipitor. 10.Coronary artery disease, status post coronary artery bypass graft with depressed ejection fractio n. No angina. Continue with home medications. 11.Deep venous thrombosis prophylaxis with Lovenox. SUZY Voice ID: [id number] Report ID: [id number]
--- NOTE | 2019-02-15 15:01 | RAD REPORT ---
EXAM DESCRIPTION: RAD - Chest Single View - 02/15/2019 2:01 pm CLINICAL HISTORY: CHF COMPARISON: February TECHNIQUE: AP portable chest image was obtained 1255 hours . FINDINGS: Prominent baseline interstitial pattern is again noted. Left pleural effusion and left bas e parenchymal stranding have not changed. Sternotomy wires are in place. Heart size is normal. Vascul ature is normal range. Heart and vasculature are normal. No measurable pleural effusion and no pneumo thorax. No acute bony abnormality seen. No acute aortic findings suspected. IMPRESSION: Left base pleural and parenchymal opacification stable from February 13. Baseline chronic interstitial lung pattern also stable. No new or progressive finding.
[2019-02-15] MEDS: CARVEDILOL 25 MG TAB PO SCH (17:42)
[2019-02-15] MEDS: ATORVASTATIN 40 MG TAB PO SCH (20:37)
[2019-02-15] MEDS: TAMSULOSIN 0.4 MG SR CAP PO SCH (20:37)
[2019-02-16] MEDS: CARVEDILOL 25 MG TAB PO SCH (06:10)
[2019-02-16] MEDS: PANTOPRAZOLE 40MG TABLET PO SCH (06:10)
[2019-02-16 06:17] LABS: Magnesium 2.4 mg/dL (1.8-2.4); Potassium 3.6 mmol/L (3.5-5.1)
[2019-02-16 06:24] LABS: Absolute Lymphocytes (CBC) 0.5 K/uL (0.7-4.9); Hematocrit 36.7 % (39.6-49.0); Lymphocytes % 4.8 % (15.3-44.8); MPV 8.8 fL (7.6-11.3); RBC Red Blood Cell Count 4.68 M/uL (4.33-5.43)
[2019-02-16] MEDS: INSULIN -REGULAR HUMAN 50 UNIT/0.5 ML ML SQ SCH ×4 (07:30→21:00)
[2019-02-16] MEDS: IPRATROPIUM BROM 0.5MG/2.5ML NEB PRN (07:40)
[2019-02-16] MEDS: ARFORMOTEROL TARTRATE 15 MCG/2 ML VIAL.NEB NEB SCH ×2 (07:40→20:00)
[2019-02-16] MEDS: ENOXAPARIN 80 MG/0.8 ML SQ SCH ×2 (08:25→21:41)
[2019-02-16] MEDS: predniSONE 20 MG TAB PO SCH ×2 (08:25→21:39)
[2019-02-16] MEDS: SACUBITRIL/VALSARTAN 24/26 MG TAB PO SCH ×2 (08:26→21:40)
[2019-02-16] MEDS: GUAIFENESIN 600 MG SA TAB PO SCH ×2 (08:26→21:40)
[2019-02-16] MEDS: levoFLOXacin 500 MG TAB PO SCH (08:26)
[2019-02-16] MEDS: FUROSEMIDE 40 MG/4 ML VIAL IV SCH ×2 (08:27→17:22)
[2019-02-16] MEDS: JUVEN PACKET PO SCH ×2 (08:29→21:41)
--- NOTE | 2019-02-16 08:30 | PN ---
Mr. Hauser seems to be doing little better overall. He still is coughing up large amounts of phle gm. His heart rate tends to be too high, so we are going up on the dose of his Coreg. No doubt stop ping the amiodarone has something to do with this, but I do not think we want to try and reestablish sinus rhythm nor give amiodarone in the future. We can switch to a different beta-luke if we need to. I think doing an echocardiogram tomorrow might be very useful. We have not done one since he w as given Entresto. It has been roughly a month so we can repeat an echo and make sure things have no t gotten worse. ROCAEL/NOHELIA Voice ID: [id number] Report ID: [id number]
--- NOTE | 2019-02-16 12:06 | PN ---
Mr. Hauser seems to be doing about the same. Echocardiogram is pending. It is hard to keep his h eart rate under control when he sleeps. It is in the 70s when he wakes up, just lying in bed. It is in the 100 to 120 range usually. We will try to go up on the dose of beta-luke. I will stop the Coreg and switch him to metoprolol 50 b.i.d. ROCAEL/NOHELIA Voice ID: [id number] Report ID: [id number]
--- NOTE | 2019-02-16 12:53 | ECHO ---
HEIGHT: 5 ft 11 in WEIGHT: 181 lb 3.2 oz DATE OF STUDY: 02/16/[address]: Ric Hudson MD 2-DIMENSIONAL: YES M.MODE: YES DOPPLER: YES COLOR FLOW: YES TDS: YES PORTABLE: NO DEFINITY: NO BUBBLE STUDY: NO DIAGNOSIS: CONGESTIVE HEART FAILURE CARDIAC HISTORY: CATHERIZATION: NO SURGERY: YES PROSTHETIC VALVE: NO PACEMAKER: NO MEASUREMENTS (cm) DIASTOLIC (NORMALS) SYSTOLIC (NORMALS) IVSd 1.2 (0.6-1.2) LA Diam (1.9-4.0) LVEF 49% LVIDd 4.4 (3.5-5.7) LVIDs 3.3 (2.0-3.5) %FS 24% LVPWd 1.0 (0.6-1.2) Ao Diam 3.0 (2.0-3.7) 2 DIMENSIONAL ASSESSMENT: RIGHT ATRIUM: NORMAL LEFT ATRIUM: DILATED RIGHT VENTRICLE: NORMAL LEFT VENTRICLE: NORMAL TRICUSPID VALVE: NORMAL MITRAL VALVE: NORMAL PULMONIC VALVE: NORMAL AORTIC VALVE: NORMAL PERICARDIAL EFFUSION: NONE AORTIC ROOT: NORMAL LEFT VENTRICULAR WALL MOTION: PARADOXICAL SEPTAL MOTION SEEN WITH THROACTOMY. DOPPLER/COLOR FLOW: MILD TRICUSPID REGURGITATION. NORMAL RIGHT VENTRICULAR SYSTOLIC PRESSURE. COMMENTS: MILDLY DEPRESSED LEFT VENTRICULAR EJECTION FRACTION WITH PARADOXICAL SEPTAL MOTION, IMPROVED SINCE 01/2019. DILATED LEFT ATRIUM. MILD TRICUSPID REGURGITATION. TECHNOLOGIST: Yaron SOTO
[2019-02-16] MEDS: METOPROLOL XL 50 MG TAB PO SCH (17:21)
--- NOTE | 2019-02-16 19:06 | PN ---
Date of Progress Note: 02/16/2019 Subjective: Patient is seen and examined. Chart was reviewed and case was discussed with RN, Dr. Jagjit molina, and Dr. Lerner. Patient continues to complain of shortness of breath. Family member is not letting him get up and move around. They understand the patient already has a sacral decubitus ulcer from not moving around. He needs to work with PT within limits with supplemental oxygen with assist ance. Medications: List was reviewed. Physical Examination: Vital Signs: Temperature 96.9, heart rate 137, blood pressure 87/58, respirations 20, O2 98% on 0.5 L via nasal cannula. Blood pressure has improved to 106/59. General: Awake, alert, oriented x3. Elderly male in minimal distress. CV: S1, S2. Irregularly irregular. Peripheral pulses present. Respiratory: Diminished breath sounds. No wheezing. No use of accessory muscles. Gastrointestinal: Abdomen is soft, nontender, nondistended. Positive bowel sounds. No guarding or rigidity. Extremities: No clubbing, cyanosis. Patient has pedal edema. Neurologic: Nonfocal. Laboratory Data: Sodium 141, potassium 3.6, chloride 102, CO2 34, BUN 40, creatinine 1.41, glucose 1 66, calcium 8.9. Magnesium 2.4. WBC 10.2, H and H 11.7/36.7, platelets 200, neutrophils 89%. Sputu m culture is pending. Assessment And Plan: A 73-year-old male with: 1.Iovcd-ic-zfhtgnp respiratory failure with hypercapnia and hypoxia secondary to chronic obstructive pulmonary disease and congestive heart failure. Patient has been weaned off BiPAP. We will continu e supplemental oxygen as needed, improving. 2.Plmcy-io-xuitrfi systolic congestive heart failure. Today's echocardiogram shows an EF of 49%. H is ejection fraction has improved since previous. We will continue with Entresto. [employer] frederick coyle over beta-luke to metoprolol 50 b.i.d. Continue diuretics. Continue to monitor I's and O's and daily weights. 3.Atrial fibrillation and atrial flutter, chronic with a rapid ventricular rate. Beta-luke has b een adjusted. Continue with Lovenox for anticoagulation. Patient will need to be switched to oral a nticoagulant upon discharge. 4.End-stage chronic obstructive pulmonary disease. Continue with breathing treatments and steroids. Appreciate Dr. Lerner's input. Patient has been treated for MRSA and pseudomonas in the sputum r ecently. 5.Essential hypertension, stable. 6.Diabetes mellitus type 2, non-insulin requiring with hyperglycemia. We will continue sliding scal e insulin and monitor blood glucose levels. 7.Gastroesophageal reflux disease without esophagitis. Continue Protonix. 8.Benign prostatic hypertrophy. We will continue Flomax. Stable. 9.Mixed hyperlipidemia. Continue Lipitor. 10.Coronary artery disease, status post CABG with [place] artery and [place] heart without angina. St able. 11.Deep venous thrombosis prophylaxis with Lovenox. 12.Plan: Refer to LTAC. /NOHELIA Voice ID: [id number] Report ID: [id number]
[2019-02-16] MEDS: TEMAZEPAM 15 MG CAP PO PRN (21:39)
[2019-02-16] MEDS: TAMSULOSIN 0.4 MG SR CAP PO SCH (21:40)
[2019-02-16] MEDS: ATORVASTATIN 40 MG TAB PO SCH (21:41)
[2019-02-17 04:25] LABS: Absolute Lymphocytes (CBC) 0.7 K/uL (0.7-4.9); Basophils % 0.1 % (0-1.3); Hematocrit 36.6 % (39.6-49.0); MPV 8.5 fL (7.6-11.3); RBC Red Blood Cell Count 4.66 M/uL (4.33-5.43)
[2019-02-17 04:45] LABS: Magnesium 2.4 mg/dL (1.8-2.4); Phosphorus 2.5 mg/dL (2.5-4.9); Potassium 4.3 mmol/L (3.5-5.1)
[2019-02-17] MEDS: METOPROLOL XL 50 MG TAB PO SCH ×2 (06:26→17:08)
[2019-02-17] MEDS: PANTOPRAZOLE 40MG TABLET PO SCH (06:27)
[2019-02-17] MEDS: INSULIN -REGULAR HUMAN 50 UNIT/0.5 ML ML SQ SCH ×4 (07:30→21:00)
[2019-02-17] MEDS: ARFORMOTEROL TARTRATE 15 MCG/2 ML VIAL.NEB NEB SCH ×2 (08:18→19:50)
[2019-02-17] MEDS: FUROSEMIDE 40 MG/4 ML VIAL IV SCH (08:23)
[2019-02-17] MEDS: SACUBITRIL/VALSARTAN 24/26 MG TAB PO SCH ×2 (08:23→21:16)
[2019-02-17] MEDS: levoFLOXacin 500 MG TAB PO SCH (08:23)
[2019-02-17] MEDS: GUAIFENESIN 600 MG SA TAB PO SCH ×2 (08:23→21:18)
[2019-02-17] MEDS: JUVEN PACKET PO SCH ×2 (08:23→21:16)
[2019-02-17] MEDS: predniSONE 20 MG TAB PO SCH ×2 (08:23→21:17)
[2019-02-17] MEDS: ENOXAPARIN 80 MG/0.8 ML SQ SCH ×2 (08:24→21:16)
--- NOTE | 2019-02-17 11:29 | P.PN ---
Subjective Date of Service: 02/17/19 Primary Care Provider: None; Cardiology-Dr. Lindsay; Pulmonary-Dr. Lerner Chief Complaint: Shortness of breath Subjective: Other (Patient doing well. Patient required BiPAP last night. Currently on nasal cannula.) Physical Examination - Vital Signs Temperature: 97.1 F Blood Pressure: 133/62 Pulse: 76 Respirations: 18 Pulse Ox (%): 99 - Physical Exam General: Alert, In no apparent distress, Cooperative HEENT: Atraumatic Neck: Supple Respiratory: Expiratory wheezes (Bilateral but improved) Cardiovascular: Regular rate/rhythm Gastrointestinal: Normal bowel sounds, Soft and benign, Non-distended, No masses , No rebound, No guarding Neurological: Normal speech, Normal strength at 5/5 x4 extr, Normal tone, Normal affect - Studies Medications List Reviewed: Yes Assessment & Plan Discharge Plan: LTAC Plan to discharge in: 24 Hours Physician Review Additional Text: Impression: Acute on chronic respiratory failure with hypercapnia and hypoxia secondary to COPD exacerbation and CHF Acute on chronic systolic CHF with ejection fraction 49% Atrial fibrillation/atrial flutter on chronic anti coagulation therapy Hypertension Diabetes mellitus type 2 lrl-yoxtkbj-vakolvrzf with hyperglycemia GERD BPH Hyperlipidemia CAD with prior CABG Plan: Acute on chronic respiratory failure with hypercapnia and hypoxia secondary to COPD exacerbation and CHF: Patient continues to improve. Still requiring BiPAP at night. Case discussed with pulmonology. Recommend long-term acute care facility placement to continue his care. Await approval. Likely discharge to long-term acute care facility within the next 24-48 hr. Acute on chronic systolic CHF with ejection fraction 49%: Continue medication including Entresto, metoprolol, and diuretic therapy. Continue 1500 cc per day fluid restriction. Atrial fibrillation/atrial flutter on chronic anti coagulation therapy: Continue beta-luke therapy. Continue chronic anti coagulation therapy. Hypertension: Medications have been adjusted. Continue current medication. Diabetes mellitus type 2 nht-ldpxwhu-aezsxpgts with hyperglycemia: Continue Accu-Cheks and sliding scale.. GERD: Continue Protonix. BPH: Continue Flomax. Hyperlipidemia: Continue Lipitor. CAD with prior CABG: Stable. Will continue to monitor closely. Time Spent Managing Pts Care (In Minutes): 55
--- NOTE | 2019-02-17 12:15 | P.PN ---
Subjective Date of Service: 02/17/19 Primary Care Provider: None; Cardiology-Dr. Lindsay; Pulmonary-Dr. Lerner Chief Complaint: Congestive heart failure and COPD No change still complains of shortness of breath apprehensive Review of Systems General: Weakness Respiratory: Cough, Shortness of Breath Physical Examination - Vital Signs Temperature: 97.1 F Blood Pressure: 133/62 Pulse: 76 Respirations: 18 Pulse Ox (%): 99 - Physical Exam General: Alert, In no apparent distress, Oriented x3 Respiratory: Expiratory wheezes Cardiovascular: No edema, Irregular heart rate/rhythm - Studies Medications List Reviewed: Yes Assessment & Plan - Problems (Diagnosis) (1) Respiratory failure Current Visit: Yes Status: Acute Plan: Patient has respiratory failure although it will not qualify for BiPAP as his pCO2 is less than 52 patient has his own CPAP I increase the pressure to 14 patient is on diuretics is renal function is slightly worse bronchodilators and steroids possible amiodarone induced toxicity chest x-ray shows chronic interstitial changes patient's echocardiogram shows an improvement in his ejection fraction since his bypass surgery patient is in atrial flutter rate control only he also anti coagulated patient's sputum is now culturing acetenobacter. Unfortunately he is allergic to sulfonamides the due to underlying renal failure I have started him on doxycycline 100 mg twice a day although it has intermediate sensitivity Dc levofloxacin reduce Lasix to once a day patient's oxygenation is satisfactory I have advised him to uses own CPAP Qualifiers: Chronicity: acute on chronic Physician Review Additional Text: Impression: Acute on chronic respiratory failure with hypercapnia and hypoxia secondary to COPD exacerbation and CHF Acute on chronic systolic CHF with ejection fraction 49% Atrial fibrillation/atrial flutter on chronic anti coagulation therapy Hypertension Diabetes mellitus type 2 mto-bgzvkrb-vsrqauddk with hyperglycemia GERD BPH Hyperlipidemia CAD with prior CABG Plan: Acute on chronic respiratory failure with hypercapnia and hypoxia secondary to COPD exacerbation and CHF: Patient continues to improve. Still requiring BiPAP at night. Case discussed with pulmonology. Recommend long-term acute care facility placement to continue his care. Await approval. Likely discharge to long-term acute care facility within the next 24-48 hr. Acute on chronic systolic CHF with ejection fraction 49%: Continue medication including Entresto, metoprolol, and diuretic therapy. Continue 1500 cc per day fluid restriction. Atrial fibrillation/atrial flutter on chronic anti coagulation therapy: Continue beta-luke therapy. Continue chronic anti coagulation therapy. Hypertension: Medications have been adjusted. Continue current medication. Diabetes mellitus type 2 asc-ssjnsnb-cgnsawbwb with hyperglycemia: Continue Accu-Cheks and sliding scale.. GERD: Continue Protonix. BPH: Continue Flomax. Hyperlipidemia: Continue Lipitor. CAD with prior CABG: Stable. Will continue to monitor closely.
[2019-02-17] MEDS: TRAMADOL HCL 50 MG TAB PO PRN (13:58)
[2019-02-17] MEDS: IPRATROPIUM BROM 0.5MG/2.5ML NEB PRN (19:50)
[2019-02-17] MEDS: TEMAZEPAM 15 MG CAP PO PRN (21:16)
[2019-02-17] MEDS: ATORVASTATIN 40 MG TAB PO SCH (21:16)
[2019-02-17] MEDS: DOXYCYCLINE 100 MG CAP PO SCH (21:17)
[2019-02-17] MEDS: TAMSULOSIN 0.4 MG SR CAP PO SCH (21:17)
--- NOTE | 2019-02-17 22:07 | PN ---
Date of Progress Note: 02/17/2019 Mr. Hauser was admitted with CHF. He has a history of CABG in December 2018. Chronic atrial fibrilla tion. Initial ejection fraction 15% to 20%. He has been on Entresto. Echocardiogram yesterday show ed an ejection fraction of 49%. He is feeling better. His atrial fibrillation rate was slightly emilee vated. Dr. Hudson put him on metoprolol. We will stop the amiodarone because of possible pulmonary toxicity. We will continue present regimen for now. He is improving go home in a day or 2. There is a possible plan for physical therapy before he goes home and I will leave that up to Dr. Leos to decide. DEBBY/ONHELIA Voice ID: [id number] Report ID: [id number]
[2019-02-18] MEDS: PANTOPRAZOLE 40MG TABLET PO SCH (05:12)
[2019-02-18] MEDS: METOPROLOL XL 50 MG TAB PO SCH ×2 (05:12→17:18)
[2019-02-18] MEDS: INSULIN -REGULAR HUMAN 50 UNIT/0.5 ML ML SQ SCH ×4 (07:30→22:12)
[2019-02-18] MEDS: IPRATROPIUM BROM 0.5MG/2.5ML NEB PRN ×2 (07:50→20:45)
[2019-02-18] MEDS: ARFORMOTEROL TARTRATE 15 MCG/2 ML VIAL.NEB NEB SCH ×2 (07:50→20:45)
[2019-02-18] MEDS: ENOXAPARIN 80 MG/0.8 ML SQ SCH ×2 (08:49→21:45)
[2019-02-18] MEDS: TRAMADOL HCL 50 MG TAB PO PRN ×2 (08:50→18:24)
[2019-02-18] MEDS: predniSONE 20 MG TAB PO SCH ×2 (08:51→21:50)
[2019-02-18] MEDS: GUAIFENESIN 600 MG SA TAB PO SCH ×2 (08:51→21:47)
[2019-02-18] MEDS: DOXYCYCLINE 100 MG CAP PO SCH ×2 (08:51→21:46)
[2019-02-18] MEDS: FUROSEMIDE 40 MG/4 ML VIAL IV SCH (08:51)
[2019-02-18] MEDS: JUVEN PACKET PO SCH ×2 (08:52→21:46)
[2019-02-18] MEDS: SACUBITRIL/VALSARTAN 24/26 MG TAB PO SCH ×2 (09:48→21:50)
--- NOTE | 2019-02-18 10:49 | P.PN ---
Subjective Date of Service: 02/18/19 Primary Care Provider: None; Cardiology-Dr. Lindsay; Pulmonary-Dr. Lerner Chief Complaint: Congestive heart failure and COPD Subjective: Improving, Doing well Physical Examination - Vital Signs Temperature: 97 F Blood Pressure: 137/63 Pulse: 89 Respirations: 20 Pulse Ox (%): 98 - Physical Exam General: Alert, In no apparent distress, Oriented x3, Cooperative HEENT: Atraumatic Neck: Supple Respiratory: Expiratory wheezes (Bilateral) Cardiovascular: Irregular heart rate/rhythm (Atrial flutter rate controlled) Gastrointestinal: Normal bowel sounds, Soft and benign, Non-distended, No tenderness, No masses, No rebound, No guarding Musculoskeletal: No erythema, No tenderness, No warmth Integumentary: No erythema, No warmth, No cyanosis Neurological: Normal speech, Normal strength at 5/5 x4 extr, Normal tone, Normal affect - Studies Medications List Reviewed: Yes Assessment & Plan Discharge Plan: LTAC Plan to discharge in: 24 Hours Physician Review Additional Text: Impression: Acute on chronic respiratory failure with hypercapnia and hypoxia secondary to COPD exacerbation and CHF, sputum culture positive for Acinetobacter/ Haemophalis parainfluenza Acute on chronic systolic CHF with ejection fraction 49% Atrial fibrillation/atrial flutter on chronic anti coagulation therapy Hypertension Diabetes mellitus type 2 zfq-hwjhopd-zqkfxazol with hyperglycemia GERD BPH Hyperlipidemia CAD with prior CABG Plan: Acute on chronic respiratory failure with hypercapnia and hypoxia secondary to COPD exacerbation and CHF, sputum culture positive for Acinetobacter/ Haemophalis parainfluenza: Patient continues to improve. Maintain sats above 90%. Continue to wean off oxygen. Continue with current medications. Continue with BiPAP at night. Case discussed with pulmonology. Sputum culture reviewed. Medication adjusted by pulmonology. Patient now on doxycycline. Will confirm with pulmonology. Awaiting approval for long-term acute care facility placement to continue his care. Likely discharge to long-term acute care facility within the next 24-48 hr. Acute on chronic systolic CHF with ejection fraction 49%: Overall stable. Continue medication including Entresto, metoprolol, and diuretic therapy. Continue 1500 cc per day fluid restriction. Atrial fibrillation/atrial flutter on chronic anti coagulation therapy: Overall stable. Continue beta-luke therapy. Continue chronic anti coagulation therapy. Hypertension: Blood pressure stable at this time. Medications have been adjusted. Continue current medication. Diabetes mellitus type 2 ubm-eduqniv-jyturofqe with hyperglycemia: Continue Accu-Cheks and sliding scale.. GERD: Continue Protonix. BPH: Continue Flomax. Hyperlipidemia: Continue Lipitor. CAD with prior CABG: Stable. Will continue to monitor closely. Time Spent Managing Pts Care (In Minutes): 55
[2019-02-18] MEDS: LEVALBUTEROL 0.63 MG/3 ML NEB NEB PRN (20:45)
[2019-02-18] MEDS: TEMAZEPAM 15 MG CAP PO PRN (21:44)
[2019-02-18] MEDS: ATORVASTATIN 40 MG TAB PO SCH (21:45)
[2019-02-18] MEDS: TAMSULOSIN 0.4 MG SR CAP PO SCH (21:46)
[2019-02-19] MEDS: METOPROLOL XL 50 MG TAB PO SCH (06:31)
[2019-02-19] MEDS: PANTOPRAZOLE 40MG TABLET PO SCH (06:32)
[2019-02-19] MEDS: INSULIN -REGULAR HUMAN 50 UNIT/0.5 ML ML SQ SCH ×4 (07:30→21:56)
[2019-02-19] MEDS: JUVEN PACKET PO SCH ×2 (08:31→22:03)
[2019-02-19] MEDS: SACUBITRIL/VALSARTAN 24/26 MG TAB PO SCH ×2 (08:32→21:55)
[2019-02-19] MEDS: DOXYCYCLINE 100 MG CAP PO SCH ×2 (08:32→21:55)
[2019-02-19] MEDS: FUROSEMIDE 40 MG/4 ML VIAL IV SCH (08:33)
[2019-02-19] MEDS: GUAIFENESIN 600 MG SA TAB PO SCH ×2 (08:33→21:56)
[2019-02-19] MEDS: predniSONE 20 MG TAB PO SCH ×2 (08:33→21:55)
[2019-02-19] MEDS: ENOXAPARIN 80 MG/0.8 ML SQ SCH (08:33)
[2019-02-19] MEDS: ARFORMOTEROL TARTRATE 15 MCG/2 ML VIAL.NEB NEB SCH ×2 (09:05→20:00)
--- NOTE | 2019-02-19 10:38 | P.PN ---
Subjective Date of Service: 02/19/19 Primary Care Provider: None; Cardiology-Dr. Lindsay; Pulmonary-Dr. Lerner Chief Complaint: Congestive heart failure and COPD Subjective: Improving, Doing well Physical Examination - Vital Signs Temperature: 96.8 F Blood Pressure: 135/64 Pulse: 68 Respirations: 19 Pulse Ox (%): 98 - Physical Exam General: Alert, In no apparent distress, Oriented x3, Cooperative HEENT: Atraumatic Neck: Supple Respiratory: Expiratory wheezes (Mild with good air movement) Cardiovascular: Irregular heart rate/rhythm (Atrial fibrillation, rate controlled) Gastrointestinal: Normal bowel sounds, Soft and benign, Non-distended, No tenderness, No masses, No rebound, No guarding Musculoskeletal: No erythema, No tenderness, No warmth Integumentary: No tenderness/swelling, No erythema, No warmth, No cyanosis Neurological: Normal speech, Normal strength at 5/5 x4 extr, Normal tone, Normal affect - Studies Medications List Reviewed: Yes Assessment & Plan Discharge Plan: Other (group home facility) Plan to discharge in: 24 Hours Physician Review Additional Text: Impression: Acute on chronic respiratory failure with hypercapnia and hypoxia secondary to COPD exacerbation and CHF, sputum culture positive for Acinetobacter/ Haemophalis parainfluenza Acute on chronic systolic CHF with ejection fraction 49% Atrial fibrillation/atrial flutter on chronic anti coagulation therapy Hypertension Diabetes mellitus type 2 oez-ucjygkq-kwklkuvqx with hyperglycemia GERD BPH Hyperlipidemia CAD with prior CABG Plan: Acute on chronic respiratory failure with hypercapnia and hypoxia secondary to COPD exacerbation and CHF, sputum culture positive for Acinetobacter/ Haemophalis parainfluenza: Patient continues to improve and working with physical therapy. Continue oxygen to maintain sats above 90%. Patient using CPAP at night. Patient was able to bring his own machine. Case discussed with pulmonology. Patient on doxycycline as the patient has multiple allergies. Awaiting approval for skilled placement as the patient was denied long-term acute care facility placement. Anticipate discharge to skilled placement once approved. Acute on chronic systolic CHF with ejection fraction 49%: Overall stable. Will change IV Lasix to oral. Continue medication including Entresto, metoprolol, and diuretic therapy. Continue 1500 cc per day fluid restriction. Atrial fibrillation/atrial flutter on chronic anti coagulation therapy: Overall stable. Continue beta-luke therapy. Continue chronic anti coagulation therapy. Hypertension: Blood pressure stable at this time. Medications have been adjusted during his stay. Continue current medication. Diabetes mellitus type 2 kqf-wrywpku-amxjqkwkb with hyperglycemia: Continue Accu-Cheks and sliding scale.. GERD: Continue Protonix. BPH: Continue Flomax. Hyperlipidemia: Continue Lipitor. CAD with prior CABG: Stable. Will continue to monitor closely. Time Spent Managing Pts Care (In Minutes): 55
[2019-02-19] MEDS: METOPROLOL XL 25 MG TAB PO SCH (17:22)
[2019-02-19] MEDS: IPRATROPIUM BROM 0.5MG/2.5ML NEB PRN (17:32)
[2019-02-19] MEDS: LEVALBUTEROL 0.63 MG/3 ML NEB NEB PRN (17:32)
[2019-02-19] MEDS: TRAMADOL HCL 50 MG TAB PO PRN (19:39)
--- NOTE | 2019-02-19 21:54 | PN ---
Date of Progress Note: 02/18/2019 Mr. Hauser remains in the hospital being treated for COPD exacerbation, congestive heart failure, diabetes, hypertension, atrial flutter, CAD status post CABG. He is awaiting long-term acute care fa cility placement. He is doing much better. Still have a few rales, no edema, some expiratory wheezi ng. He, otherwise ate well and slept well. I will continue to follow. DEBBY/NOHELIA Voice ID: [id number] Report ID: [id number]
[2019-02-19] MEDS: APIXABAN 5 MG TABLET PO SCH (21:55)
[2019-02-19] MEDS: ATORVASTATIN 40 MG TAB PO SCH (21:55)
[2019-02-19] MEDS: TAMSULOSIN 0.4 MG SR CAP PO SCH (21:55)
--- NOTE | 2019-02-19 21:56 | PN ---
Date of Progress Note: 02/19/2019 History Of Present Illness: Mr. Hauser is still awaiting long-term acute care facility placement. Meanwhile, he is being treated for congestive heart failure, COPD, diabetes, hypertension, atrial f lutter and coronary artery disease. His last echocardiogram showed an ejection fraction of 45%, whic h is much improved from his previous echo before his bypass. He is actually doing well. Today, he h as no wheezing. No rales. No edema. I will sign off this case for now. DEBBY/NOHELIA Voice ID: [id number] Report ID: [id number]
[2019-02-19] MEDS: FLUTICASONE 50MCG NASAL SPRAY NAS SCH (22:02)
[2019-02-19] MEDS: TEMAZEPAM 15 MG CAP PO PRN (22:07)
[2019-02-20 04:57] VITALS: BMI 26.4
[2019-02-20] MEDS: PANTOPRAZOLE 40MG TABLET PO SCH (05:42)
[2019-02-20] MEDS: METOPROLOL XL 25 MG TAB PO SCH ×2 (05:42→16:43)
[2019-02-20] MEDS: INSULIN -REGULAR HUMAN 50 UNIT/0.5 ML ML SQ SCH ×4 (07:30→20:03)
[2019-02-20] MEDS: ARFORMOTEROL TARTRATE 15 MCG/2 ML VIAL.NEB NEB SCH ×2 (08:05→20:00)
[2019-02-20] MEDS: LEVALBUTEROL 0.63 MG/3 ML NEB NEB PRN (08:05)
[2019-02-20] MEDS: IPRATROPIUM BROM 0.5MG/2.5ML NEB PRN ×2 (08:05→20:15)
[2019-02-20] MEDS: DOXYCYCLINE 100 MG CAP PO SCH ×2 (08:47→20:01)
[2019-02-20] MEDS: predniSONE 20 MG TAB PO SCH (08:47)
[2019-02-20] MEDS: FUROSEMIDE 40 MG TABLET PO SCH (08:47)
[2019-02-20] MEDS: FLUTICASONE 50MCG NASAL SPRAY NAS SCH ×2 (08:47→20:03)
[2019-02-20] MEDS: GUAIFENESIN 600 MG SA TAB PO SCH ×2 (08:47→20:02)
[2019-02-20] MEDS: SACUBITRIL/VALSARTAN 24/26 MG TAB PO SCH ×2 (08:47→20:01)
[2019-02-20] MEDS: APIXABAN 5 MG TABLET PO SCH ×2 (08:47→20:02)
[2019-02-20] MEDS: JUVEN PACKET PO SCH ×2 (08:48→20:03)
--- NOTE | 2019-02-20 08:49 | P.PN ---
Subjective Date of Service: 02/20/19 Primary Care Provider: None; Cardiology-Dr. Lindsay; Pulmonary-Dr. Lerner Chief Complaint: Congestive heart failure and COPD Subjective: Doing well Physical Examination - Vital Signs Temperature: 97.1 F Blood Pressure: 132/64 Pulse: 68 Respirations: 17 Pulse Ox (%): 98 - Physical Exam General: Alert, In no apparent distress, Oriented x3, Cooperative HEENT: Atraumatic Neck: Supple Respiratory: Clear to auscultation bilaterally, Normal air movement Cardiovascular: Irregular heart rate/rhythm (Atrial flutter rate controlled) Gastrointestinal: Normal bowel sounds, Soft and benign, Non-distended Musculoskeletal: No erythema, No tenderness, No warmth Integumentary: No tenderness/swelling, No erythema, No warmth, No cyanosis Neurological: Normal speech, Normal strength at 5/5 x4 extr, Normal tone, Normal affect - Studies Medications List Reviewed: Yes Assessment & Plan Discharge Plan: Other (custodial facility) Plan to discharge in: 24 Hours Physician Review Additional Text: Impression: Acute on chronic respiratory failure with hypercapnia and hypoxia secondary to COPD exacerbation and CHF, sputum culture positive for Acinetobacter/ Haemophalis parainfluenza Acute on chronic systolic CHF with ejection fraction 49% Atrial fibrillation/atrial flutter on chronic anti coagulation therapy Hypertension Diabetes mellitus type 2 qzj-djxlprk-aoxtieysx with hyperglycemia GERD BPH Hyperlipidemia CAD with prior CABG Plan: Acute on chronic respiratory failure with hypercapnia and hypoxia secondary to COPD exacerbation and CHF, sputum culture positive for Acinetobacter/ Haemophalis parainfluenza: Patient continues to improve and working with physical therapy. Awaiting approval for skilled placement. Continue oxygen to maintain sats above 90%. Patient using CPAP at night. Patient using his own machine. Case discussed with pulmonology yesterday. Patient on doxycycline as the patient has multiple allergies. Anticipate approval to skilled facility today with likely discharge. Acute on chronic systolic CHF with ejection fraction 49%: Overall stable. Patient now on oral Lasix. Continue medication including Entresto, metoprolol, and diuretic therapy. Continue 1500 cc per day fluid restriction. Atrial fibrillation/atrial flutter on chronic anti coagulation therapy: Overall stable. Continue to adjust beta-luke therapy. Continue chronic anti coagulation therapy. Hypertension: Blood pressure stable. Medications have been adjusted during his stay. Continue current medication. Diabetes mellitus type 2 fvg-jrwuwmv-ttxwqyryx with hyperglycemia: Continue Accu-Cheks and sliding scale.. GERD: Continue Protonix. BPH: Continue Flomax. Hyperlipidemia: Continue Lipitor. CAD with prior CABG: Stable. Will continue to monitor closely. Time Spent Managing Pts Care (In Minutes): 55
--- NOTE | 2019-02-20 12:59 | P.PN ---
Subjective Date of Service: 02/20/19 Primary Care Provider: None; Cardiology-Dr. Lindsay; Pulmonary-Dr. Lerner Chief Complaint: Congestive heart failure and COPD Patient is improving he is doing much better cough and congestion has improved patient is ambulating tolerating CPAP Review of Systems General: Weakness Respiratory: Cough, Shortness of Breath Physical Examination - Vital Signs Temperature: 97.1 F Blood Pressure: 112/60 Pulse: 90 Respirations: 19 Pulse Ox (%): 97 - Physical Exam General: Alert, In no apparent distress, Oriented x3 Respiratory: Expiratory wheezes Cardiovascular: No edema, Regular rate/rhythm, Normal S1 S2 - Studies Medications List Reviewed: Yes Assessment & Plan - Problems (Diagnosis) (1) Respiratory failure Current Visit: Yes Status: Acute Plan: Patient has improved significantly he may be due to the infection with Acinetobacter and parainfluenza patient is currently on doxycycline I have also added Augmentin as is allergic to cephalosporins vital signs are stable repeat labs normal white count patient is on 2 L of nasal cannula oxygen tolerating CPAP at higher pressures ambulating reduce dose of prednisone to 10 mg twice a day possible amiodarone toxicity Qualifiers: Chronicity: acute on chronic Physician Review Additional Text: Impression: Acute on chronic respiratory failure with hypercapnia and hypoxia secondary to COPD exacerbation and CHF, sputum culture positive for Acinetobacter/ Haemophalis parainfluenza Acute on chronic systolic CHF with ejection fraction 49% Atrial fibrillation/atrial flutter on chronic anti coagulation therapy Hypertension Diabetes mellitus type 2 sag-gliuxsn-cayuasfbm with hyperglycemia GERD BPH Hyperlipidemia CAD with prior CABG Plan: Acute on chronic respiratory failure with hypercapnia and hypoxia secondary to COPD exacerbation and CHF, sputum culture positive for Acinetobacter/ Haemophalis parainfluenza: Patient continues to improve and working with physical therapy. Awaiting approval for skilled placement. Continue oxygen to maintain sats above 90%. Patient using CPAP at night. Patient using his own machine. Case discussed with pulmonology yesterday. Patient on doxycycline as the patient has multiple allergies. Anticipate approval to skilled facility today with likely discharge. Acute on chronic systolic CHF with ejection fraction 49%: Overall stable. Patient now on oral Lasix. Continue medication including Entresto, metoprolol, and diuretic therapy. Continue 1500 cc per day fluid restriction. Atrial fibrillation/atrial flutter on chronic anti coagulation therapy: Overall stable. Continue to adjust beta-luke therapy. Continue chronic anti coagulation therapy. Hypertension: Blood pressure stable. Medications have been adjusted during his stay. Continue current medication. Diabetes mellitus type 2 xqb-rtsafqn-puyzzzvkv with hyperglycemia: Continue Accu-Cheks and sliding scale.. GERD: Continue Protonix. BPH: Continue Flomax. Hyperlipidemia: Continue Lipitor. CAD with prior CABG: Stable. Will continue to monitor closely.
[2019-02-20] MEDS: AMOX/K CLAV 500 MG TAB PO SCH (20:01)
[2019-02-20] MEDS: predniSONE 10 MG TAB PO SCH (20:02)
[2019-02-20] MEDS: TRAMADOL HCL 50 MG TAB PO PRN (20:02)
[2019-02-20] MEDS: ATORVASTATIN 40 MG TAB PO SCH (20:02)
[2019-02-20] MEDS: TAMSULOSIN 0.4 MG SR CAP PO SCH (20:03)
[2019-02-20] MEDS: TEMAZEPAM 15 MG CAP PO PRN (21:20)
[2019-02-21] MEDS: PANTOPRAZOLE 40MG TABLET PO SCH (05:35)
[2019-02-21] MEDS: METOPROLOL XL 25 MG TAB PO SCH ×2 (05:36→16:30)
[2019-02-21] MEDS: INSULIN -REGULAR HUMAN 50 UNIT/0.5 ML ML SQ SCH ×4 (07:30→21:13)
[2019-02-21] MEDS: LEVALBUTEROL 0.63 MG/3 ML NEB NEB PRN ×2 (08:00→13:40)
[2019-02-21] MEDS: ARFORMOTEROL TARTRATE 15 MCG/2 ML VIAL.NEB NEB SCH ×2 (08:00→20:00)
[2019-02-21] MEDS: IPRATROPIUM BROM 0.5MG/2.5ML NEB PRN ×2 (08:00→13:40)
[2019-02-21] MEDS: predniSONE 10 MG TAB PO SCH ×2 (08:42→21:12)
[2019-02-21] MEDS: DOXYCYCLINE 100 MG CAP PO SCH ×2 (08:42→21:12)
[2019-02-21] MEDS: GUAIFENESIN 600 MG SA TAB PO SCH ×2 (08:42→21:11)
[2019-02-21] MEDS: SACUBITRIL/VALSARTAN 24/26 MG TAB PO SCH ×2 (08:42→21:12)
[2019-02-21] MEDS: APIXABAN 5 MG TABLET PO SCH ×2 (08:42→21:12)
[2019-02-21] MEDS: AMOX/K CLAV 500 MG TAB PO SCH ×2 (08:42→21:12)
[2019-02-21] MEDS: FUROSEMIDE 40 MG TABLET PO SCH (08:42)
[2019-02-21] MEDS: JUVEN PACKET PO SCH ×2 (08:43→21:00)
[2019-02-21] MEDS: FLUTICASONE 50MCG NASAL SPRAY NAS SCH ×2 (08:43→21:00)
[2019-02-21] MEDS ORDERED: GLUCAGON 1 MG/VIAL IM PRN (09:30)
[2019-02-21] MEDS ORDERED: D50W 25 GM/50 ML SYRINGE IV PRN (09:30)
--- NOTE | 2019-02-21 09:36 | P.PN ---
Subjective Date of Service: 02/21/19 Primary Care Provider: None; Cardiology-Dr. Lindsay; Pulmonary-Dr. Lerner Chief Complaint: Congestive heart failure and COPD Subjective: Doing well Physical Examination - Vital Signs Temperature: 97.1 F Blood Pressure: 144/68 Pulse: 68 Respirations: 17 Pulse Ox (%): 95 - Physical Exam General: Alert, In no apparent distress, Oriented x3 HEENT: Atraumatic Neck: Supple Respiratory: Expiratory wheezes (Bilateral but good air movement) Cardiovascular: Irregular heart rate/rhythm (Atrial flutter, rate controlled) Gastrointestinal: Normal bowel sounds, Soft and benign, Non-distended, No tenderness, No masses, No rebound, No guarding Musculoskeletal: No erythema, No tenderness, No warmth Integumentary: No erythema, No warmth, No cyanosis Neurological: Normal speech, Normal strength at 5/5 x4 extr, Normal tone, Normal affect - Studies Medications List Reviewed: Yes Assessment & Plan Discharge Plan: Other (residential facility) Plan to discharge in: 24 Hours Physician Review Additional Text: Impression: Acute on chronic respiratory failure with hypercapnia and hypoxia secondary to COPD exacerbation and CHF, sputum culture positive for Acinetobacter/ Haemophalis parainfluenza Acute on chronic systolic CHF with ejection fraction 49% Atrial fibrillation/atrial flutter on chronic anti coagulation therapy Hypertension Diabetes mellitus type 2 sby-cbltmir-afmeurmjj with hyperglycemia Acute on chronic renal disease stage III GERD BPH Hyperlipidemia CAD with prior CABG Plan: Acute on chronic respiratory failure with hypercapnia and hypoxia secondary to COPD exacerbation and CHF, sputum culture positive for Acinetobacter/ Haemophalis parainfluenza: Patient continues to improve an working with physical therapy. Awaiting approval to skilled placement facility. Continue maintain oxygen above 90%. Augmentin added by pulmonology yesterday. Patient continuing to use CPAP at night. Anticipate discharge to skilled facility once approved Acute on chronic systolic CHF with ejection fraction 49%: Overall stable. Will check BMP. Patient on oral Lasix. Continue medication including Entresto , metoprolol, and diuretic therapy. Continue 1500 cc per day fluid restriction. Atrial fibrillation/atrial flutter on chronic anti coagulation therapy: Overall stable. Rate controlled. Continue chronic anti coagulation therapy and medication Hypertension: Blood pressure stable. Medications have been adjusted during his stay. Continue current medication. Diabetes mellitus type 2 iyi-kivnmbq-vszfguerw with hyperglycemia: Still with hyperglycemia. Will check A1c. Patient takes metformin at home. Will check BMP. Patient had some renal insufficiency likely with underlying chronic renal disease. Will start Lantus 10 units daily. Continue Accu-Cheks and sliding scale. Acute on chronic renal disease, stage III: Will check BMP. Continue to hold metformin. Recommend no use of nonsteroidal anti-inflammatories. Will adjust medications per renal function. GERD: Continue Protonix. BPH: Continue Flomax. Hyperlipidemia: Continue Lipitor. CAD with prior CABG: Stable. Will continue to monitor closely. Time Spent Managing Pts Care (In Minutes): 55
[2019-02-21 10:33] LABS: Magnesium 2.2 mg/dL (1.8-2.4); Potassium 4.4 mmol/L (3.5-5.1)
[2019-02-21] MEDS ORDERED: METFORMIN HCL 500 MG TAB PO SCH (17:00)
[2019-02-21] MEDS: TRAMADOL HCL 50 MG TAB PO PRN (19:00)
[2019-02-21] MEDS: ATORVASTATIN 40 MG TAB PO SCH (21:11)
[2019-02-21] MEDS: TEMAZEPAM 15 MG CAP PO PRN (21:12)
[2019-02-21] MEDS: TAMSULOSIN 0.4 MG SR CAP PO SCH (21:12)
[2019-02-21] MEDS: INSULIN GLARGINE 100 UNITS/ML SQ SCH (21:13)
[2019-02-21 21:41] VITALS: O2SAT 98
[2019-02-22] MEDS: PANTOPRAZOLE 40MG TABLET PO SCH (06:15)
[2019-02-22] MEDS: METOPROLOL XL 25 MG TAB PO SCH ×2 (06:15→16:46)
[2019-02-22 06:23] LABS: Magnesium 2.2 mg/dL (1.8-2.4); Potassium 4.3 mmol/L (3.5-5.1)
[2019-02-22] MEDS: INSULIN -REGULAR HUMAN 50 UNIT/0.5 ML ML SQ SCH ×4 (07:30→20:53)
[2019-02-22] MEDS: ARFORMOTEROL TARTRATE 15 MCG/2 ML VIAL.NEB NEB SCH ×2 (08:02→19:54)
[2019-02-22] MEDS: LEVALBUTEROL 0.63 MG/3 ML NEB NEB PRN (08:02)
[2019-02-22] MEDS: IPRATROPIUM BROM 0.5MG/2.5ML NEB PRN ×2 (08:02→19:54)
[2019-02-22] MEDS: FUROSEMIDE 40 MG TABLET PO SCH (08:40)
[2019-02-22] MEDS: SACUBITRIL/VALSARTAN 24/26 MG TAB PO SCH ×2 (08:40→20:51)
[2019-02-22] MEDS: AMOX/K CLAV 500 MG TAB PO SCH ×2 (08:40→20:51)
[2019-02-22] MEDS: predniSONE 10 MG TAB PO SCH ×2 (08:41→20:52)
[2019-02-22] MEDS: DOXYCYCLINE 100 MG CAP PO SCH ×2 (08:41→20:52)
[2019-02-22] MEDS: GUAIFENESIN 600 MG SA TAB PO SCH ×2 (08:41→20:51)
[2019-02-22] MEDS: APIXABAN 5 MG TABLET PO SCH ×2 (08:41→20:52)
[2019-02-22] MEDS: FLUTICASONE 50MCG NASAL SPRAY NAS SCH ×2 (08:45→20:52)
[2019-02-22] MEDS: JUVEN PACKET PO SCH ×2 (08:55→20:53)
--- NOTE | 2019-02-22 09:20 | P.PN ---
Subjective Date of Service: 02/22/19 Primary Care Provider: None; Cardiology-Dr. Lindsay; Pulmonary-Dr. Lerner Chief Complaint: Congestive heart failure and COPD Subjective: Improving, Doing well Physical Examination - Vital Signs Temperature: 97.1 F Blood Pressure: 132/62 Pulse: 67 Respirations: 17 Pulse Ox (%): 95 - Physical Exam General: Alert, In no apparent distress, Oriented x3, Cooperative HEENT: Atraumatic Neck: Supple Respiratory: Expiratory wheezes (But with good air movement) Cardiovascular: Irregular heart rate/rhythm (Atrial fibrillation, rate controlled) Gastrointestinal: Normal bowel sounds, Soft and benign, Non-distended, No tenderness, No masses, No rebound, No guarding Musculoskeletal: No erythema, No tenderness, No warmth Integumentary: No tenderness/swelling, No erythema, No warmth, No cyanosis Neurological: Normal speech, Normal strength at 5/5 x4 extr, Normal tone, Normal affect - Studies Medications List Reviewed: Yes Assessment & Plan Discharge Plan: Other (half-way facility) Plan to discharge in: 24 Hours Physician Review Additional Text: Impression: Acute on chronic respiratory failure with hypercapnia and hypoxia secondary to COPD exacerbation and CHF, sputum culture positive for Acinetobacter/ Haemophalis parainfluenza Acute on chronic systolic CHF with ejection fraction 49% Atrial fibrillation/atrial flutter on chronic anti coagulation therapy Hypertension Diabetes mellitus type 2 zkn-xawbcyw-mvrwgeler with hyperglycemia Acute on chronic renal disease stage III GERD BPH Hyperlipidemia CAD with prior CABG Plan: Acute on chronic respiratory failure with hypercapnia and hypoxia secondary to COPD exacerbation and CHF, sputum culture positive for Acinetobacter/ Haemophalis parainfluenza: Patient continues to improve and working with physical therapy. Still waiting for approval to skilled placement facility. Continue maintain oxygen above 90%. Patient currently on Doxycycline and Augmentin as recommended by pulmonology. Patient will require 7 more days of treatment. Patient continuing to use CPAP at night. Anticipate discharge to skilled facility likely tomorrow once approved by insurance. Acute on chronic systolic CHF with ejection fraction 49%: Overall stable. Patient on oral Lasix. Continue medication including Entresto, metoprolol, and diuretic therapy. Continue 1500 cc per day fluid restriction. Atrial fibrillation/atrial flutter on chronic anti coagulation therapy: Overall stable. Rate controlled. Continue chronic anti coagulation therapy and medication Hypertension: Blood pressure stable. Medications have been adjusted during his stay. Continue current medication. Diabetes mellitus type 2 lpo-dpiwcyd-laxfyrkpm with hyperglycemia: Lantus 10 units started last night. Blood sugars better controlled. A1c 6.7. Continue to monitor Accu-Cheks and sliding scale. Metformin has been discontinued due to acute on chronic renal disease. Will consider restarting metformin if BMP back to baseline at discharge. Acute on chronic renal disease, stage III: Renal function improved. Continue to hold metformin. Consider restarting metformin if BMP back to baseline at discharge. Recommend no use of nonsteroidal anti-inflammatories. Will continue to adjust medications per renal function. GERD: Continue Protonix. BPH: Continue Flomax. Hyperlipidemia: Continue Lipitor. CAD with prior CABG: Stable. Will continue to monitor closely. Time Spent Managing Pts Care (In Minutes): 55
[2019-02-22] MEDS: TRAMADOL HCL 50 MG TAB PO PRN (18:05)
[2019-02-22] MEDS: ATORVASTATIN 40 MG TAB PO SCH (20:51)
[2019-02-22] MEDS: TEMAZEPAM 15 MG CAP PO PRN (20:51)
[2019-02-22] MEDS: TAMSULOSIN 0.4 MG SR CAP PO SCH (20:52)
[2019-02-22] MEDS: INSULIN GLARGINE 100 UNITS/ML SQ SCH (20:53)
[2019-02-23] MEDS: METOPROLOL XL 25 MG TAB PO SCH (05:21)
[2019-02-23] MEDS: PANTOPRAZOLE 40MG TABLET PO SCH (05:21)
[2019-02-23 06:12] LABS: Magnesium 2.4 mg/dL (1.8-2.4); Potassium 4.1 mmol/L (3.5-5.1)
[2019-02-23] MEDS: INSULIN -REGULAR HUMAN 50 UNIT/0.5 ML ML SQ SCH (07:30)
[2019-02-23] MEDS: ARFORMOTEROL TARTRATE 15 MCG/2 ML VIAL.NEB NEB SCH (07:35)
[2019-02-23] MEDS: IPRATROPIUM BROM 0.5MG/2.5ML NEB PRN (07:35)
[2019-02-23] MEDS: FLUTICASONE 50MCG NASAL SPRAY NAS SCH (09:00)
[2019-02-23] MEDS: GUAIFENESIN 600 MG SA TAB PO SCH (09:12)
[2019-02-23] MEDS: APIXABAN 5 MG TABLET PO SCH (09:12)
[2019-02-23] MEDS: AMOX/K CLAV 500 MG TAB PO SCH (09:12)
[2019-02-23] MEDS: predniSONE 10 MG TAB PO SCH (09:12)
[2019-02-23] MEDS: DOXYCYCLINE 100 MG CAP PO SCH (09:12)
[2019-02-23] MEDS: SACUBITRIL/VALSARTAN 24/26 MG TAB PO SCH (09:12)
[2019-02-23] MEDS: JUVEN PACKET PO SCH (09:13)
[2019-02-23] MEDS: FUROSEMIDE 40 MG TABLET PO SCH (09:13)
--- NOTE | 2019-02-23 10:50 | P.DS ---
Admission Date: 02/13/19 Discharge Date: 02/23/19 Primary Care Provider: None; Cardiology-Dr. Lindsay; Pulmonary-Dr. Lerner Disposition: TRANSFER TO SNF - MEDICAL Discharge Condition: GOOD Reason for Admission: Congestive heart failure and COPD Consultations: Pulmonary-Dr. Lerner Cardiology-Dr. Hudson Procedures: CXR: FINDINGS: Prominent baseline interstitial pattern is again noted. Left pleural effusion and left base parenchymal stranding have not changed. Sternotomy wires are in place. Heart size is normal. Vasculature is normal range. Heart and vasculature are normal. No measurable pleural effusion and no pneumothorax. No acute bony abnormality seen. No acute aortic findings suspected. IMPRESSION: Left base pleural and parenchymal opacification stable from February 13. Baseline chronic interstitial lung pattern also stable. No new or progressive finding. ECHO: Ejection fraction 49% LEFT VENTRICULAR WALL MOTION: PARADOXICAL SEPTAL MOTION SEEN WITH THROACTOMY. DOPPLER/COLOR FLOW: MILD TRICUSPID REGURGITATION. NORMAL RIGHT VENTRICULAR SYSTOLIC PRESSURE. COMMENTS: MILDLY DEPRESSED LEFT VENTRICULAR EJECTION FRACTION WITH PARADOXICAL SEPTAL MOTION, IMPROVED SINCE 01/2019. DILATED LEFT ATRIUM. MILD TRICUSPID REGURGITATION. Medical Problem List: Acute on chronic respiratory failure with hypercapnia and hypoxia secondary to COPD exacerbation and CHF, sputum culture positive for Acinetobacter/ Haemophalis parainfluenza, complicated with side effects of amiodarone Acute on chronic systolic CHF with ejection fraction 49% Atrial fibrillation/atrial flutter on chronic anti coagulation therapy Hypertension Diabetes mellitus type 2 [id number] with hyperglycemia Acute on chronic renal disease stage III GERD BPH Hyperlipidemia CAD with prior CABG Chronic pain Brief History of Present Illness: 73-year-old male with multiple medical problems including 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 Patient has had multiple admissions for acute on chronic respiratory failure. Patient presented with increasing shortness of breath. Family had noted that he required more oxygen than normal. He has increasing shortness of breath with exertion. As his condition continued to decline family brought the patient to the ER for evaluation. In the ER patient was placed on BiPAP. Initial blood gases showed a pH is 7.46 with a PC of 247, PO2 of 118 and a bicarb of 33. Chest x-ray showed emphysematous changes. White count 6.0, hemoglobin 11.9. Platelet count 237. BMP at 9:00 p.m.. Troponin unremarkable. Sodium 142, potassium 4.0, chloride 104, bicarb 32, BUN of 24, creatinine 1.43 with a GFR 42. Patient was admitted for further evaluation and treatment. When I came to see the patient patient was still on BiPAP. Family at bedside. Family reports the patient has increasing shortness of breath. It is been difficult to manage at home. reports that he uses oxygen and takes his medications. Family reports no fever, chills. Hospital Course: Patient presented with shortness of breath found to have acute on chronic respiratory failure with hypercapnia and hypoxia. This was secondary to COPD exacerbation and acute on chronic systolic CHF. In his stay patient was transitioned from BiPAP to nasal cannula. Patient was seen and evaluated by Pulmonology and Cardiology. Medications will reviewed and adjusted. Amiodarone was discontinued as this may have interfered with his COPD. Albuterol has been replaced with Xopenex due to his chronic atrial fibrillation. Theophylline has been discontinued. Sputum cultures were positive for Acinetobacter and haemophalis parainfluenza. Patient improved during the course of his stay. Patient was evaluated for skilled placement and approved. At discharge patient continues with oxygen to maintain sats above 90% . Patient continues with CPAP at night for obstructive sleep apnea. At discharge patient will continue with Augmentin 500 mg 1 pill twice daily and doxycycline 100 mg 1 pill twice daily for 10 days. As mentioned above amiodarone has been discontinued. Patient will also continue with prednisone 10 mg 1 pill twice daily for 5 days then 1 pill once daily for 5 days. Patient will continue with COPD medication-Brovana 1 unit dose twice daily, Xopenex 1 unit dose 3 times a day as needed for shortness of breath and Atrovent 1 unit dose 3 times a day as needed for shortness of breath. Recommend a follow up with pulmonology in 1-2 weeks to follow up this hospitalization. Recommend recheck chest x-ray in 2-4 weeks to monitor resolution. Patient with underlying acute on chronic systolic CHF with ejection fraction now at 49%. This has improved over time. Patient seen and evaluated by Cardiology during his stay. As mentioned above medications have been adjusted. Patient no longer on carvedilol. Lasix has been decreased from twice daily to once daily. At discharge he will continue with Lasix 40 mg daily. He will continue with a 1500 cc per day fluid restriction and low-salt diet. Patient will also continue with Entresto 24/26 mg 1 pill twice daily and metoprolol 75 mg 1 pill twice daily. Recommend to monitor weight daily. If his weight increases by more than 5 lb he is to contact his PCP or cardiology for further recommendation. In the future medications may need to be further adjusted. This can be done by his PCP or cardiology. Patient with chronic atrial fibrillation. Patient previously on amiodarone. This was discontinued as recommended by cardiology and pulmonology due to his COPD. Medications have been adjusted. Patient now on metoprolol 75 mg 1 pill twice daily for rate control. Patient will continue with Eliquis 5 mg 1 pill twice daily. Patient currently with atrial fibrillation rate controlled. Recommend follow up with cardiology in 1-2 weeks to follow up this hospitalization. Patient with hypertension. During his stay medications have been adjusted. As mentioned above, Carvedilol has been discontinued and replaced by metoprolol. At discharge he will continue with metoprolol 75 mg 1 pill twice daily. Recommend blood pressure less than 150/80. Further adjustment can be done by his PCP or cardiology. Patient with diabetes mellitus type 2 previously non insulin dependent with hyperglycemia. Medications have been adjusted due to his chronic renal disease. Forming has been discontinued due to his chronic renal disease. Patient now on Lantus 10 units subcu daily. Blood sugars remained stable. At discharge he will continue with Lantus 10 units subcu daily. Recommend blood sugar less than 140 fasting and less than 200 after meals. Further adjustment can be done by his PCP. If his renal function improves over time patient can be transitioned from insulin to metformin. A1c well controlled at 6.7. Will need to monitor for hypoglycemia. Patient with acute and chronic renal disease stage III. This has improved with adjustments in medication. Patient no longer on metformin. Lasix has been decreased to once daily. Recommend no further use of nonsteroidal anti- inflammatories future medications will need to be renally dose. Recommend follow up with nephrology as an outpatient to establish care and further monitor closely. Patient with GERD. Medications have been adjusted during his stay. Zantac has been discontinued. Patient will continue with Protonix 40 mg daily. Patient with BPH. Patient will continue with Flomax 0.4 mg 1 pill daily. Patient with hyperlipidemia. This has remained stable. At discharge he will continue with Lipitor 40 mg daily. Patient with CAD. Medications have been adjusted. Patient will no longer take aspirin/Plavix since the patient will be on chronic anti coagulation therapy- Eliquis. This was recommended by Cardiology. Patient with chronic pain. Patient may continue with tramadol 50 mg 1 pill 3 times a day as needed for pain. At discharge patient will go to a skilled facility to continue rehab before going home likely with home health and physical therapy. Vital Signs/Physical Exam: Temp Pulse Resp BP Pulse Ox 96.9 F 91 H 19 151/68 H 95 02/23/19 07:30 02/23/19 09:13 02/23/19 04:00 02/23/19 09:13 02/23/19 07:30 General: Alert, In no apparent distress, Oriented x3, Cooperative HEENT: Atraumatic Neck: Supple Respiratory: Expiratory wheezes (Bilateral but improved) Cardiovascular: Irregular heart rate/rhythm (Atrial fibrillation, rate controlled) Gastrointestinal: Normal bowel sounds, Soft and benign, Non-distended, No tenderness, No masses, No rebound, No guarding Musculoskeletal: No erythema, No tenderness, No warmth Integumentary: No tenderness/swelling, No erythema, No warmth, No cyanosis Neurological: Normal speech, Normal strength at 5/5 x4 extr, Normal tone, Normal affect Laboratory Data at Discharge: WBC 8.5 K/uL (4.3-10.9) D 02/17/19 04:15 Hgb 11.7 g/dL (13.6-17.9) L 02/17/19 04:15 Hct 36.6 % (39.6-49.0) L 02/17/19 04:15 Plt Count 166 K/uL (152-406) 02/17/19 04:15 PT 12.3 SECONDS (9.5-12.5) 02/13/19 17:30 INR 1.04 02/13/19 17:30 Sodium 142 mmol/L (136-145) 02/23/19 05:27 Potassium 4.1 mmol/L (3.5-5.1) 02/23/19 05:27 BUN 39 mg/dL (7-18) H 02/23/19 05:27 Creatinine 1.08 mg/dL (0.55-1.3) 02/23/19 05:27 Glucose 115 mg/dL (74-106) H 02/23/19 05:27 Phosphorus 2.5 mg/dL (2.5-4.9) 02/17/19 04:15 Magnesium 2.4 mg/dL (1.8-2.4) 02/23/19 05:27 Total Bilirubin 0.3 mg/dL (0.2-1.0) 02/13/19 17:30 AST 10 U/L (15-37) L 02/13/19 17:30 ALT 19 U/L (12-78) 02/13/19 17:30 Alkaline Phosphatase 73 U/L (45-117) 02/13/19 17:30 Troponin I < 0.02 ng/mL (0.0-0.045) 02/14/19 05:22 Home Medications: Atorvastatin Calcium [Lipitor] 40 mg PO BEDTIME 02/13/19 Tamsulosin [Flomax*] 0.4 mg PO BEDTIME 02/13/19 Guaifenesin [Mucinex] 600 mg PO BID 02/14/19 Magnesium Oxide [Magnesium] 400 mg PO DAILY 02/14/19 Tramadol HCl [Ultram] 50 mg PO Q6HP PRN 02/14/19 Amox/Clavulanate [Augmentin 500-125 mg Tab*] 500 mg PO BID #20 tab 02/23/19 Apixaban [Eliquis] 5 mg PO BID tablet 02/23/19 Arformoterol Tartrate [Brovana] 15 mcg NEB BIDRESP #60 vial.neb 02/23/19 Benzonatate [Tessalon Perle] 100 mg PO TID PRN #15 cap 02/23/19 Doxycycline Hyclate 100 mg PO BID #20 tablet 02/23/19 Fluticasone [Flonase 50MCG Nasal [place]*] 1 sprays MAME BID btl 02/23/19 Furosemide [Lasix*] 40 mg PO DAILY #30 tab 02/23/19 Insulin Glargine Human [Lantus*] 10 units SQ BEDTIME #1 bottle 02/23/19 Ipratropium Neb [Atrovent*] 0.5 mg NEB TID PRN #90 amp 02/23/19 Levalbuterol [Xopenex*] 3 ml NEB TID PRN #90 vial 02/23/19 Metoprolol Succinate [Toprol Xl*] 75 mg PO BID 6AM 6PM #180 tab 02/23/19 Pantoprazole [Protonix Tab*] 40 mg PO DAILYAC #30 tab 02/23/19 Sacubitril/Valsartan [Entresto 24 mg-26 mg Tablet] 1 tab PO BID #60 tab predniSONE [Deltasone*] 10 mg PO SEECOM #15 tab 02/23/19 New Medications: Amox/Clavulanate [Augmentin 500-125 mg Tab*] 500 mg PO BID #20 tab Apixaban [Eliquis] 5 mg PO BID tablet Arformoterol Tartrate [Brovana] 15 mcg NEB BIDRESP #60 vial.neb Benzonatate [Tessalon Perle] 100 mg PO TID PRN #15 cap PRN Reason: Cough Doxycycline Hyclate 100 mg PO BID #20 tablet Fluticasone [Flonase 50MCG Nasal [place]*] 1 sprays MAME BID btl Furosemide [Lasix*] 40 mg PO DAILY #30 tab Insulin Glargine Human [Lantus*] 10 units SQ BEDTIME #1 bottle Ipratropium Neb [Atrovent*] 0.5 mg NEB TID PRN #90 amp PRN Reason: Shortness Of Breath Levalbuterol [Xopenex*] 3 ml NEB TID PRN #90 vial PRN Reason: Shortness Of Breath Metoprolol Succinate [Toprol Xl*] 75 mg PO BID 6AM 6PM #180 tab Pantoprazole [Protonix Tab*] 40 mg PO DAILYAC #30 tab predniSONE [Deltasone*] 10 mg PO SEECOM #15 tab Sacubitril/Valsartan [Entresto 24 mg-26 mg Tablet] 1 tab PO BID #60 tab Patient Discharge Instructions: 1. Patient be transferred to skilled facility to continue rehabilitation. 2. Patient presented with shortness of breath found to have acute on chronic respiratory failure with hypercapnia and hypoxia. This was secondary to COPD exacerbation and acute on chronic systolic CHF. In his stay patient was transitioned from BiPAP to nasal cannula. Patient was seen and evaluated by Pulmonology and Cardiology. Medications will reviewed and adjusted. Amiodarone was discontinued as this may have interfered with his COPD. Albuterol has been replaced with Xopenex due to his chronic atrial fibrillation. Theophylline has been discontinued. Sputum cultures were positive for Acinetobacter and haemophalis parainfluenza. Patient improved during the course of his stay. Patient was evaluated for skilled placement and approved. At discharge patient continues with oxygen to maintain sats above 90% . Patient continues with CPAP at night for obstructive sleep apnea. At discharge patient will continue with Augmentin 500 mg 1 pill twice daily and doxycycline 100 mg 1 pill twice daily for 10 days. As mentioned above amiodarone has been discontinued. Patient will also continue with prednisone 10 mg 1 pill twice daily for 5 days then 1 pill once daily for 5 days. Patient will continue with COPD medication-Brovana 1 unit dose twice daily, Xopenex 1 unit dose 3 times a day as needed for shortness of breath and Atrovent 1 unit dose 3 times a day as needed for shortness of breath. Recommend a follow up with pulmonology in 1-2 weeks to follow up this hospitalization. Recommend recheck chest x-ray in 2-4 weeks to monitor resolution. 3. Patient with underlying acute on chronic systolic CHF with ejection fraction now at 49%. This has improved over time. Patient seen and evaluated by Cardiology during his stay. As mentioned above medications have been adjusted. Patient no longer on carvedilol. Lasix has been decreased from twice daily to once daily. At discharge he will continue with Lasix 40 mg daily. He will continue with a 1500 cc per day fluid restriction and low-salt diet. Patient will also continue with Entresto 24/26 mg 1 pill twice daily and metoprolol 75 mg 1 pill twice daily. Recommend to monitor weight daily. If his weight increases by more than 5 lb he is to contact his PCP or cardiology for further recommendation. In the future medications may need to be further adjusted. This can be done by his PCP or cardiology. 4. Patient with chronic atrial fibrillation. Patient previously on amiodarone. This was discontinued as recommended by cardiology and pulmonology due to his COPD. Medications have been adjusted. Patient now on metoprolol 75 mg 1 pill twice daily for rate control. Patient will continue with Eliquis 5 mg 1 pill twice daily. Patient currently with atrial fibrillation rate controlled. Recommend follow up with cardiology in 1-2 weeks to follow up this hospitalization. 5. Patient with hypertension. During his stay medications have been adjusted. As mentioned above, Carvedilol has been discontinued and replaced by metoprolol. At discharge he will continue with metoprolol 75 mg 1 pill twice daily. Recommend blood pressure less than 150/80. Further adjustment can be done by his PCP or cardiology. 6. Patient with diabetes mellitus type 2 previously non insulin dependent with hyperglycemia. Medications have been adjusted due to his chronic renal disease. Forming has been discontinued due to his chronic renal disease. Patient now on Lantus 10 units subcu daily. Blood sugars remained stable. At discharge he will continue with Lantus 10 units subcu daily. Recommend blood sugar less than 140 fasting and less than 200 after meals. Further adjustment can be done by his PCP. If his renal function improves over time patient can be transitioned from insulin to metformin. A1c well controlled at 6.7. Will need to monitor for hypoglycemia. 7. Patient with acute and chronic renal disease stage III. This has improved with adjustments in medication. Patient no longer on metformin. Lasix has been decreased to once daily. Recommend no further use of nonsteroidal anti-inflammatories future medications will need to be renally dose. Recommend follow up with nephrology as an outpatient to establish care and further monitor closely. 8. Patient with GERD. Medications have been adjusted during his stay. Zantac has been discontinued. Patient will continue with Protonix 40 mg daily. 9. Patient with BPH. Patient will continue with Flomax 0.4 mg 1 pill daily. 10. Patient with hyperlipidemia. This has remained stable. At discharge he will continue with Lipitor 40 mg daily. 11. Patient with CAD. Medications have been adjusted. Patient will no longer take aspirin/Plavix since the patient will be on chronic anti coagulation therapy-Eliquis. This was recommended by Cardiology. 12. Patient with chronic pain. Patient may continue with tramadol 50 mg 1 pill 3 times a day as needed for pain. At discharge patient will go to a skilled facility to continue rehab before going home likely with home health and physical therapy. Diet: ADA Activity: Fall precautions Time spent managing pt's care (in minutes): 55
[2019-02-23 14:44] VITALS: BP 125/57; TEMP 98
== END 2019-02-23 13:02 | DRG 189 ==
LOC: ER 17:19 → ERHOLD 19:41 → 3RD-ICU 20:23 → 2ND 02-14 14:15
PROVIDERS: ADMIT Family Medicine; ATTEND Family Medicine
PROC: 5A09457 Assistance with Respiratory Ventilation, 24-96 Consecutive Hours, Continuous Positive Airway Pressure (ICD-10-PCS; principal; 2019-02-13)
DX: J96.22 Acute and chronic respiratory failure with hypercapnia (principal); I50.23 Acute on chronic systolic (congestive) heart failure; J44.1 Chronic obstructive pulmonary disease with (acute) exacerbation; I13.0 Hypertensive heart and chronic kidney disease with heart failure and stage 1 through stage 4 chronic kidney disease, or unspecified chronic kidney disease; N17.9 Acute kidney failure, unspecified; J96.21 Acute and chronic respiratory failure with hypoxia; N18.3 Chronic kidney disease, stage 3 (moderate); E11.22 Type 2 diabetes mellitus with diabetic chronic kidney disease; E11.65 Type 2 diabetes mellitus with hyperglycemia; K21.9 Gastro-esophageal reflux disease without esophagitis; N40.0 Benign prostatic hyperplasia without lower urinary tract symptoms; E78.5 Hyperlipidemia, unspecified; I25.10 Atherosclerotic heart disease of native coronary artery without angina pectoris; G89.29 Other chronic pain; G47.33 Obstructive sleep apnea (adult) (pediatric); I48.2 Chronic atrial fibrillation; Z79.01 Long term (current) use of anticoagulants; Z99.81 Dependence on supplemental oxygen; Z95.1 Presence of aortocoronary bypass graft
CPT/HCPCS: 36415; 71045; 80048; 80076; 82550; 82553; 82805; 82962; 83036; 83735; 83880; 84100; 84439; 84443; 84484; 85025; 85610; 87070; 87077; 87184; 87186; 87205; 93005; 93306; 94660; 94760; 96360; 97110; 97116; 97161; 97530; 99251; 99285; J1650; J1940; J2930; J7512; J7605

== ENCOUNTER 2020-03-18 08:19 | Day surgery (SDC) | payer MEDICARE ==
--- OUTSIDE RECORDS SUMMARY | 2020-03-18 08:23 | XMS REPORT | Clinical Summary ---
:1945 Author Organization [facility] Address [address] [place] [address] Care Team Providers Name Role Phone Zaid Osman MD Primary Care Provider Allergies Active Allergy Reactions Severity Noted Date Comments Cephalosporins 05/16/2017 Sulfa (Sulfonamide Antibiotics) Rash Low 6 Tetanus And Diphtheria Toxoids, Adsorbed, Anaphylaxis High 09/29/2015 Adult Tetanus Vaccines And Toxoid 05/16/2017 Medications Medication Sig Dispensed Refills Start Date End Date Status theophylline Take 600 mg by 0 Ac tive (MESFIN-24) 300 MG 24 mouth daily. hr capsule metFORMIN Take 500 mg by 0 Activ e (GLUCOPHAGE) 500 mg mouth 2 (two) times tablet a day with meals. guaiFENesin (MUCINEX) Take 600 mg by 0 Active 600 mg tablet mouth 2 (two) times extended release 12hr a day. amLODIPine (NORVASC) Take 10 mg by mouth 0 Active 10 mg tablet daily. traMADol (ULTRAM) 50 Take 150 mg by 0 Active mg tablet mouth nightly. tamsulosin (FLOMAX) Take 0.4 mg by 0 Active 0.4 mg capsule mouth daily with dinner. aspirin (ASPIR-81 Take by mouth. 0 Active ORAL) fluticasone Inhale 1 0 Active furoate-vilanterol inhalations once (BREO ELLIPTA) 200-25 daily. mcg/dose blister with device powder for inhalation umeclidinium (INCRUSE Inhale. Uses in the 0 Active ELLIPTA) 62.5 afternoon mcg/actuation blister with device insulin GLARGINE Inject 20 Units 0 Active (LANTUS) 100 unit/mL under the skin injection (vial) nightly. albuterol (PROAIR Inhale 2 puffs 0 Active HFA,PROVENTIL every 6 (six) hours HFA,VENTOLIN HFA) 90 as needed for mcg/actuation inhaler wheezing. fexofenadine Take 180 mg by 0 Ac tive (MASSIMO) 180 MG mouth daily as tablet needed. Active Problems No known active problems Encounters Date Type Specialty Care Team Description 08/12/2019 Telephone Urology Alex Pugh MD 08/12/2019 Telephone Urology Alex Pugh MD 08/07/2019 Office Visit Urology Alex Pugh MD Urothe lial carcinoma (HCC) (Primary Dx) after 03/18/2019 Social History Tobacco Use Types Packs/Day Years [...] travel history available. 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
--- OUTSIDE RECORDS SUMMARY | 2020-03-18 08:24 | XMS REPORT | Clinical Summary ---
:1945 Author Organization [facility] Address [address] [place] [address] Care Team Providers Name Role Phone Willie Card Maker Unavailable Cecilio Arana Primary Care Provider Allergies Active Allergy Reactions Severity Noted Date Comments Cephalosporins 12/08/2018 Sulfa (Sulfonamide Antibiotics) 9 Tetanus Vaccines And Toxoid Anaphylaxis High 12/15/2018 Medications Medication Sig Dispensed Refills Start End Date Status Date theophylline Take 300 mg by 0 Ac tive (THEODUR) 300 MG 12 mouth 2 (two) hr tablet times daily. traMADol (ULTRAM) Take 50 mg by 0 Active 50 mg tablet mouth as needed. 6 atorvastatin Take 1 tablet (40 30 tablet 1 Active (LIPITOR) 40 MG mg total) by mouth 9 tablet daily. insulin glargine Inject 20 Units 0 Active (LANTUS SOLOSTAR subcutaneously 9 U-100 INSULIN) 100 daily Hold off on unit/mL (3 mL) InPn restarting for now. Check your sugars at home. If sugars persistently high, resume.. melatonin 3 mg Tab Take 3 mg by mouth 0 Active tablet every night as needed. apixaban (ELIQUIS) Take 1 tablet (5 60 tablet 1 Active 5 mg Tab tablet mg total) by mouth 9 2 (two) times daily. metFORMIN Take 500 mg by 0 Activ e (GLUCOPHAGE) 500 MG mouth 2 (two) tablet times daily with breakfast and dinner. sacubitril-valsarta Take 1 tablet by 0 Active n (ENTRESTO) 24-26 mouth 2 (two) mg Tab times daily. ascorbic acid, Take 500 mg by 0 Active vitamin C, mouth 2 (two) (ASCORBIC ACID WITH times daily. IGNACIO HIPS) 500 MG tablet pantoprazole Take 40 mg by 0 Act elver (PROTONIX) 40 MG mouth daily. tablet linaGLIPtin Take 5 mg by mouth 0 Active (TRADJENTA) 5 mg daily . Tab furosemide (LASIX) Take 40 mg by 0 Active 40 MG tablet mouth 2 (two) times daily as needed . tamsulosin (FLOMAX) Take 0.4 mg by 0 Active 0.4 mg Cap 24 hr mouth daily. capsule fluticasone/vilante Inhale by mouth 0 Active rol (BREO ELLIPTA via inhaler. INHL) albuterol HFA Inhale 1 puff by 0 Active (VENTOLIN HFA) 90 mouth via inhaler mcg/actuation every 6 (six) inhaler hours as needed for Wheezing. guaiFENesin Take 1,200 mg by 0 A ctive (MUCINEX) 600 mg 12 mouth 2 (two) hr tablet times daily. umeclidinium 62.5 Inhalers by 0 03/25/20 Discontinued (INCRUSE ELLIPTA) inhal. via small 19 62.5 mcg/actuation vol.nebulizer DsDv powder for route daily. inhalation metFORMIN Take 500 mg by 0 03/25/20 Disco ntinued (GLUCOPHAGE) 500 MG mouth 2 (two) 19 tablet times daily. tamsulosin (FLOMAX) Take 0.4 mg by 0 03/25 Discontinued 0.4 mg Cap 24 hr mouth daily. 19 capsule amiodarone Take 1 tablet (200 30 tablet 0 03/25/20 Discontinued (PACERONE) 200 MG mg total) by mouth 9 19 tablet daily. aspirin 81 MG Take 1 tablet (81 0 01/01/20 chewable tablet mg total) by mouth 9 20 daily. guaiFENesin Take 1 tablet (600 60 tablet 0 03/25/20 Discontinued (MUCINEX) 600 mg 12 mg total) by mouth 9 1 9 hr tablet 2 (two) times daily. losartan (COZAAR) Take 0.5 tablets 30 tablet 0 03/25 Discontinued 25 MG tablet (12.5 mg total) by 9 19 mouth daily. magnesium oxide Take 1 tablet (400 0 12/31 (MAG-OX) 400 mg mg total) by mouth 03 27 (241.3 mg daily. magnesium) tablet metoprolol Take 0.5 tablets 30 tablet 1 12/31/19 Ex pired (LOPRESSOR) 25 MG (12.5 mg total) by 03 27 tablet mouth 2 (two) times daily. zinc Apply to affected 170 g 0 03/25/20 Di scontinued oxide-petrolatum area twice daily 03 26 (CRITIC-AID) 20-51 until buttock % Pste topical wounds healed. paste bumetanide (BUMEX) Take 1 tablet (1 60 tablet 1 12/07 1 MG tablet mg total) by mouth 03 27 2 (two) times daily. fluticasone Inhale 2 puffs by 2 Inhaler 1 03/25/20 Discontinued propionate (FLOVENT mouth via inhaler 03 26 DISKUS) 50 2 (two) times mcg/actuation daily. diskus inhaler ipratropium-albuter Take 3 mLs by 0 ol (DUO-NEB) 0.5 nebulization every 20 mg-3 mg(2.5 mg 4 (four) hours as base)/3 mL needed for nebulizer solution Wheezing or Shortness of Breath for up to 360 days. albuterol-ipratropi Inhale 2 puffs by 2 Inhaler 1 Discontinued um (COMBIVENT mouth via inhaler 03 26 RESPIMAT) 20-100 every 4 (four) mcg/actuation Mist hours as needed inhaler for Wheezing. HYDROcodone-acetami Take 1 tablet by 30 tablet 0 Discontinued nophen (NORCO mouth every 6 03 26 5-325) 5-325 mg per (six) hours as tablet needed. Max Daily Amount: 4 tablets clopidogrel Take 1 tablet (75 30 tablet 1 03/25/20 Discontinued (PLAVIX) 75 mg mg total) by mouth 03 26 tablet daily. nitrofurantoin, Take 1 capsule 6 capsule 0 12/07/19 macrocrystal-monohy (100 mg total) by 0 20 drate, (MACROBID) mouth 2 (two) 100 MG capsule times daily for 3 days. phenazopyridine Take 1 tablet (200 10 tablet 0 12/06 (PYRIDIUM) 200 MG mg total) by mouth 0 20 tablet 3 (three) times daily as needed for Pain for up to 3 days. Active Problems Problem Noted Date Bladder cancer 12/04/2019 Cardiomyopathy 06/16/2019 Dizziness 03/25/2019 S/P CABG x [address] Cavanaugh on 12/1512/17/2018 COPD exacerbation 12/09/2018 NSTEMI (non-ST elevated myocardial infarction) 019 Acute on chronic systolic (congestive) heart failure 0 12/09/2018 PVD (peripheral vascular disease) 12/09/2018 Acute and chronic respiratory failure with hypoxia 09/2018 CAD (coronary artery disease) CHF (congestive heart failure) Ischemic cardiomyopathy Overview: EF < 20% Type 2 diabetes mellitus BPH (benign prostatic hyperplasia) Acute on chronic systolic heart failure Acute respiratory insufficiency Acute blood loss anemia Hyperglycemia Chronic obstructive pulmonary disease, unspecified 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 Atrial fibrillation with RVR Paroxysmal atrial fibrillation Encounters Date Type Specialty Care Team Description 12/04/2019 Anesthesia Event Ciro Lockett MD 12/04/2019 Surgery Jose Manuel Herman CYSTOSCOPY,EDWARD Villafana MD LIGHT CYSVIEW 12/04/2019 Hospital Encounter Jose Manuel Herman MD 12/04/2019 Travel 11/09/2019 Hospital Encounter Pre-Admission Testing 06/17/2019 Anesthesia Event Nati Zambrano MD 06/16/2019 Hospital Encounter Cecilio Gasca Acute and chronic MD Moose respiratory duarte lure with hypoxia (H CC) 06/15/2019 Orders Only Cardiology Cecilio Gasca MD 03/27/2019 Orders Only General Internal Medicine 03/26/2019 Surgery Cecilio Gasca ATRIAL Joseph, MD FLUTTER 03/25/2019 - Emergency Cardiology Roosevelt Amin Dizziness (Pr imary Dx); 03/27/2019 MD Ramandeep Atrial fibrillation, unspecified type (H CC); Grey Armstrong Weakness; MD Alondra Near syncope 03/25/2019 Travel after 03/18/2019 Family History Medical History Relation Name Comments Atrial fibrillation Brother Aortic aneurysm Father Cancer Father Heart disease Father Atrial fibrillation Mother Relation Name Status Comments Brother Father abdominal cancer Mother Social History Tobacco Use Types Packs/Day Years Used Date Former Smoker Cigarettes Quit: 2005 Smokeless Tobacco: Never Used Alcohol Use Drinks/Week oz/Week Comments No Alcohol Habits Answer Date Recorded How often do you have a drink containing alcohol? Never 03/25/2019 How many drinks containing alcohol do you have on a typical Not asked day when you are drinking? How often do you have six or more drinks on one occasion? No t asked Sex Assigned at Date Recorded Not on file Job Start Date Occupation Industry Not on file Not on file Not on file Travel History Travel Start Travel End No recent travel history available. Last Filed Vital Signs Vital Sign Reading Time Taken Blood Pressure 131/48 12/04/2019 10:18 AM CDT Pulse 83 12/04/2019 10:18 AM CDT Temperature 36.8 C (98.2 F) 12/04/2019 10:18 AM CDT Respiratory Rate 20 12/04/2019 10:33 AM CDT Oxygen Saturation 93% 12/04/2019 10:33 AM CDT Inhaled Oxygen Concentration - - Weight 79.2 kg (174 lb 11.2 oz) 12/04/2019 7:2 0 AM CDT Height 180.3 cm (5' 11") 12/04/2019 7:20 AM CDT Body Mass Index 24.37 12/04/2019 7:20 AM CDT Plan of Treatment Not on file Procedures Procedure Name Priority Date/Time Associated Diagnosis Comme nts POCT-GLUCOSE METER Routine 12/04/2019 9:52 Resul ts for this AM CDT procedure are i n the results section. TISSUE EXAM AP Routine 12/04/2019 9:08 Results for this AM CDT procedure are i n the results section. CYSTOSCOPY,BLADDER 12/04/2019 7:30 Cancer of BIOPSY AM CDT overlapping sites of bladder (HCC) Case Notes 60 MINS Special Needs (CYSVIEW) CYSTOSCOPY,BLUE LIGHT CYSVIEW 12/04/2019 7:30 A M CDT Cancer of overlapping sites of bladder (HCC) Case Notes 60 MINS Special Needs (CYSVIEW) CBC W/PLT COUNT & AUTO STAT 12/04/2019 7:30 AM CDT Results for this DIFFERENTIAL procedure are i n the results section . CBC W/PLT COUNT & AUTO STAT 12/04/2019 7:30 AM CDT Results for this DIFFERENTIAL procedure are i n the results section . BASIC METABOLIC PANEL (7) STAT 12/04/2019 7:30 AM CDT Results for this procedure are i n the results section . POCT-GLUCOSE METER Routine 12/04/2019 7:26 AM CDT Results for this procedure are i n the results section . POCT-GLUCOSE METER Routine 06/16/2019 2:03 PM REFRIGERATION INSULATOR Results for this procedure are i n the results section . CBC W/PLT COUNT & AUTO STAT 06/16/2019 11:08 AM REFRIGERATION INSULATOR Results for this DIFFERENTIAL procedure are i n the results section . PROTHROMBIN TIME/INR STAT 06/16/2019 11:08 AM REFRIGERATION INSULATOR Results for this procedure are i n the results section . CBC W/PLT COUNT & AUTO STAT 06/16/2019 11:08 AM REFRIGERATION INSULATOR Results for this DIFFERENTIAL procedure are i n the results section . BASIC METABOLIC PANEL (7) STAT 06/16/2019 11:08 AM REFRIGERATION INSULATOR Results for this procedure are i n the results section . ECG 12-LEAD Routine 06/16/2019 11:05 AM REFRIGERATION INSULATOR Procedure Note - Interface, External Ris In - 06/16/2019 11:15 AM REFRIGERATION INSULATOR Ventricular Rate 98 BPM Atrial Rate 98 BPM P-R Interval 164 ms QRS Duration 154 ms Q-T Interval 444 ms QTC Calculation(Bazett) 566 ms P [place] 86 degrees R [place] -77 degrees T [place] 93 degrees Normal sinus rhythm Left axis deviation Right bundle branch block Septal infarct (cited on or before 16-JUN-2019) Abnormal ECG When compared with ECG of 12:54, Premature atrial complexes a re no longer Present T wave inversion less eviden t in Anterolateral leads ECG 12-LEAD Routine 06/16/2019 11:05 AM REFRIGERATION INSULATOR Resu lts for this procedure are i n the results section . REPORT OF PROCEDURE - 06/08/2019 1:00 PM REFRIGERATION INSULATOR ENDOSCOPY SCAN CARDIAC CATH REPORT - SCAN 03/31/2019 7:51 AM CDT RHYTHM STRIP - SCAN 03/31/2019 7:51 AM CDT ECHOCARDIOGRAM REPORT - SCAN 03/27/2019 9:20 PM CDT POCT-GLUCOSE METER Routine 03/27/2019 1:20 PM CDT Results for this procedure are i n the results section . ECG 12-LEAD Routine 03/27/2019 12:54 PM CDT Procedure Note - Interface, External Ris In - 03/27/2019 12:54 PM CDT Ventricular Rate 110 BPM Atrial Rate 110 BPM P-R Interval 174 ms QRS Duration 140 ms Q-T Interval 394 ms QTC Calculation(Bazett) 533 ms P [place] 73 degrees R [place] -69 degrees T [place] 96 degrees Sinus tachycardia with Gwen ture atrial complexes Left axis deviation Right bundle branch block Anteroseptal infarct (cited on or before 27-MAR-2019) T wave abnormality, consider lateral ischemia Abnormal ECG When compared with ECG of 11:23, Sinus rhythm has replaced At rial fibrillation T wave inversion more eviden t in Anterior leads ECG 12-LEAD Routine 03/27/2019 12:54 Results for this PM CDT procedure are i n the results section. CBC W/PLT COUNT & AUTO Routine 03/27/2019 4:23 R esults for this DIFFERENTIAL AM CDT procedure are i n the results section. BASIC METABOLIC PANEL Routine 03/27/2019 4:23 Re sults for this (7) AM CDT procedure are i n the results section. CBC W/PLT COUNT & AUTO Routine 03/27/2019 4:23 R esults for this DIFFERENTIAL AM CDT procedure are i n the results section. POCT-GLUCOSE METER Routine 03/26/2019 10:30 Resul ts for this PM CDT procedure are i n the results section. POCT-GLUCOSE METER Routine 03/26/2019 4:02 Resul ts for this PM CDT procedure are i n the results section. ABLATION,ATRIAL FLUTTER 03/26/2019 11:54 Atrial flutte r, AM CDT unspecified type (HCC) TRANSESOPHAGEAL ECHO Routine 03/26/2019 9:52 Res ults for this AM CDT procedure are i n the results section. POCT-GLUCOSE METER Routine 03/26/2019 7:20 Resul ts for this AM CDT procedure are i n the results section. CBC W/PLT COUNT & AUTO Routine 03/26/2019 4:09 R esults for this DIFFERENTIAL AM CDT procedure are i n the results section. BASIC METABOLIC PANEL Routine 03/26/2019 4:09 Re sults for this (7) AM CDT procedure are i n the results section. CBC W/PLT COUNT & AUTO Routine 03/26/2019 4:09 R esults for this DIFFERENTIAL AM CDT procedure are i n the results section. HEMOGLOBIN A1C Routine 03/26/2019 4:09 Results f or this AM CDT procedure are i n the results section. POCT-GLUCOSE METER Routine 03/25/2019 9:11 Resul ts for this PM CDT procedure are i n the results section. CONT WAVE PULSED Routine 03/25/2019 5:10 DOPPLER PM CDT COLOR-FLOW MAPPING Routine 03/25/2019 5:10 PM CDT POCT-GLUCOSE METER Routine 03/25/2019 4:06 Resul ts for this PM CDT procedure are i n the results section. ED ECG INTERPRETATION Routine 03/25/2019 1:57 Re sults for this PM CDT procedure are i n the results section. XR CHEST 1 VIEW STAT 03/25/2019 11:59 Results for this PORTABLE/BEDSIDE AM CDT procedure a re in the results section. CBC W/PLT COUNT & AUTO STAT 03/25/2019 11:39 R esults for this DIFFERENTIAL AM CDT procedure are i n the results section. B-TYPE NATRIURETIC STAT 03/25/2019 11:39 Resul ts for this FACTOR (BNP) AM CDT procedure are i n the results section. CBC W/PLT COUNT & AUTO STAT 03/25/2019 11:39 R esults for this DIFFERENTIAL AM CDT procedure are i n the results section. TROPONIN I STAT 03/25/2019 11:38 Results for this AM CDT procedure are i n the results section. BASIC METABOLIC PANEL STAT 03/25/2019 11:38 Re sults for this (7) AM CDT procedure are i n the results section. ECG 12-LEAD STAT 03/25/2019 11:23 Results for this AM CDT procedure are i n the results section. after 03/18/2019 Results POC-Glucose meter (12/04/2019 9:52 AM CDT)Only the most recent of9 results within the time period is included. POC-Glucose Meter 70Comment: : TESTED AT 70 - 110 mg/dL [place] [id number] [facility], [id number]: Food Processing Scientist/Counting Machine Operator ID = [id number] for Higinio Enedina [facility] Blood Performing Organization Address City/State/Zipcode Phone Number [address] [address] CENTER Tissue Exam (12/04/2019 9:08 AM CDT) Case Report Surgical Pathology Report Case: [id number] [facility] Authorizing Provider:Jose Manuel Pearson MDCollected: 12/04/2019 09:08 AM MEDICAL CENTER Ordering Location: [facility] Received:12/04/2019 02:57 PM SERVICES Pathologist: Jamil Mcmanus MD Specimens: A) - Bladder Biopsy, left lateral wall biopsy B) - Bladder Biopsy, left anterior lateral wall C) - Bladder Biopsy, posterior wall biopsy D) - Bladder Biopsy, right UO E) - Bladder Biopsy, right lateral wall F) - Bladder Biopsy, Dome G) - Bladder Biopsy, Trigone DIAGNOSIS A. URINARY BLADDER, LEFT LATERAL WALL, BIOPSY: [facility] - UROTHELIAL CARCINOMA IN SITU [facility] - MUSCULARIS [place] IDENTIFIED B. URINARY BLADDER, LEFT ANTERIOR LATERAL WALL,B IOPSY: - PAPILLARY U ROTHELIAL CARCINOMA, HIGH GRADE (WHO GRADE 3), NON INVASIVE - MUSCULARIS [place] NOT IDENTIFI ED C. URINARY BLADDER, POSTERIOR WALL, BIOPSY: - PAPILLARY UROTHELIAL CARCINOMA, HIGH GRADE (WHO GRADE 2), NON INVASIVE - MUSCULARIS PROPRI[place] NOT IDENTIFI ED D. URINARY BLADDER, RIGHT URETHRAL ORIFICE, BIOP SY: - NO PATHOLOGIC DIAGNOSIS - MUSCULARIS [place] NOT IDENTIF IED E. 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 URINARY BLADDER, DOME, BIOPSY: - NO PATHOLOGIC DIAGNOSIS - MUSCULARIS PROPRIA IS PRESENT G. URINARY BLADDER, TRIGONE, BIOPSY: - MILD CHRONIC INFLAMMAT ION, NEGATIVE FOR DYSPLASIA/MALIGNANCY - MUSCULARIS [place] IS NOT IDEN TIFIED Signing Pathologist Direct Phone Line: CPT Code(s) 91382 [phone] [facility] CLINICAL HISTORY Cancer of overlapping sites of bladder (HCC) [C 67.8] [facility] [id number] [facility] SPECIMEN SOURCE A. Bladder biopsy [facility] B. [facility] C. Bladder biopsy D. Bladder biopsy E. Bladder biopsy F. Bladder biopsy, dome G. Bladder biopsy, trigone GROSS DESCRIPTION A. Received in formalin lab eled with the patient's name, accession number and "left lateral wall bladder biopsy" are 2 luna-pink tissue fragments measuring up to 0.3 cm in greatest dimension which are filtered and submitted in toto in A1. [facility] B. Received in formalin lab eled with the patient's name, accession number and "left anterior lateral bladder wall" are 3 luna-pink tissue fragments measuring up to 0.3 cm in greatest dimension which are filtered and submitted in toto in B1. C. Received in formalin lab eled with the patient's name, accession number and "posterior bladder wall" are 2 luna-pink tissue fragments measuring up to 0.3 cm in greatest dimension which are filtered and submitted in toto in C1. D. Received in formalin lab eled with the patient's name, accession number and "right UO bladder biopsy" are 2 luna-pink tissue fragments measuring up to 0.2 cm in greatest dimension which are filtered and submitted in toto in D1. E. Received in formalin lab eled with the patient's name, accession number and "right lateral wall bladder biopsy" is a 0.2 x 0.2 x 0.1 cm luna-pink tissue fragment which is filtered and submitted in toto in E1. F. Received in formalin lab eled with the patient's name, accession number and "bladder dome biopsy" is a 0.2 x 0.2 x 0.1 cm luna-pink tissue fragment which is filtered and submitted in toto in F1. G. Received in formalin lab eled with the patient's name, accession number and "bladder trigone biopsy" is a 0.2 x 0.2 x 0.1 cm luna-pink tissue fragment which is filtered and submitted in toto in G1. BRET Hoover (ASCP)cm MICROSCOPIC DESCRIPTION Performed. [facility] Specimen Tissue - Bladder Biopsy Tissue - Bladder Biopsy Tissue - Bladder Biopsy Tissue - Bladder Biopsy Tissue - Bladder Biopsy Tissue - Bladder Biopsy, Dome Tissue - Bladder Biopsy, Trigone Performing Organization Address City/State/Zipcode Phone Number [facility] [address] [place] [address] CENTER CBC with platelet count + automated diff (12/04/2019 7:30 AM CDT)Only the most recent of5 resultswithin the time period is included. WBC 7.1 3.5 - 10.5 K/L [facility] RBC 3.45 (L) 4.63 - 6.08 M/L [facility] Hemoglobin 8.1 (L) 13.7 - 17.5 GM/DL [facility] Hematocrit 27.3 (L) 40.1 - 51.0 % [facility] MCV 79.1 79.0 - 92.[address] [facility] MCH 23.5 (L) 25.7 - 32.2 pg [facility] MCHC 29.7 (L) 32.3 - 36.5 GM/DL [facility] RDW 14.4 11.6 - 14.4 % [facility] Platelets 230 150 - 450 K/CU MM [facility] MPV 10.5 9.4 - 12.4 fL [facility] nRBC 0 0 - 0 /100 WBC [facility] % Neutros 71 % [facility] % Lymphs 17 % [facility] % Monos 8 % [facility] % Eos 2 % [facility] % Baso 1 % [facility] # Neutros 5.04 1.78 - 5.38 K/L [facility] # Lymphs 1.23 (L) 1.32 - 3.57 K/L [facility] # Monos 0.58 0.30 - 0.82 K/L [facility] # Eos 0.17 0.04 - 0.54 K/L [facility] # Baso 0.10 (H) 0.01 - 0.08 K/L [facility] Immature Granulocytes-Relative 0 0 - 1 % C [facility] Specimen Blood Performing Organization Address City/[facility]/Zipcode Phone Number [facility] [address] [place] [address] CENTER Basic Metabolic Panel (12/04/2019 7:30 AM CDT)Only the most recent of5 results within the time period is included. Sodium 143 136 - 145 meq/L [facility] Potassium 4.4 3.5 - 5.1 meq/L [facility] Chloride 108 (H) 98 - 107 meq/L [facility] CO2 26 22 - 29 meq/L [facility] BUN 16 7 - 21 mg/dL [facility] Creatinine 1.35 (H) 0.57 - 1.25 mg/dL [facility] Glucose 86 70 - 105 mg/dL [facility] Calcium 8.8 8.4 - 10.2 mg/dL [facility] EGFR 52Comment: ESTIMATED GFR IS mL/min/1.73 sq m [facility] NOT ACCURATE CREATININE IA DICAL CENTER CLEARANCE IN PREDICTING GLOMERULAR FILTRATION RATE. ESTIMATED GFR IS NOT APPLICABLE FOR DIALYSIS PATIENTS. Specimen Blood Narrative Performed At Food Processing Scientist ID - [id number] [facility] MED [facility]AL [facility]ENTER Performing Organization Address City/[facility]/Zipcode Phone Number [facility] [address] [place] [address] CENTER Prothrombin time/INR (06/16/2019 11:08 AM REFRIGERATION INSULATOR) Protime 13.6 11.9 - 14.2 seconds [facility] INR 1.1 <=5.9 [facility] Specimen Blood Narrative Performed At Effective 12/03/2018: PT Reference Range [facility] Change New: 11.9-14.2Previous: 11.7-14.7 RECOMMENDED COUMADIN/WARFARIN INR THERAPY RANGES STANDARD DOSE: 2.0-3.0Includes: PROPHYLAXIS for venous thrombosis, systemic embolization; TREATMENT for venous thrombosis and/or pulmonary embolus. HIGH RISK: Target INR is 2.5-3.5 for patients wiht mechanical heart valves. Performing Organization Address City/State/Zipcode Phone Number [facility] [address] [place] [address] CENTER ECG 12 lead (06/16/2019 11:05 AM REFRIGERATION INSULATOR)Only the most recent of3 resultswithin the time period is included. Specimen Narrative Performed At Ventricular Rate 98 BPM GE MUSE Atrial Rate 98 BPM P-R Interval 164 ms QRS Duration 154 ms Q-T Interval 444 ms QTC Calculation(Bazett) 566 ms P [place] 86 degrees R [place] -77 degrees T [place] 93 degrees Normal sinus rhythm Left axis deviation Right bundle branch block Septal infarct (cited on or before ) Abnormal ECG When compared with ECG of 27-MAR-2019 12 :54, Premature atrial complexes are no longer Present T wave inversion less evident in Anterol ateral leads Confirmed by MD Nazario Roberto ([id number]) on 06/07 1:43:26 PM Procedure Note Interface, External Ris In - 06/16/2019 1:43 PM REFRIGERATION INSULATOR Ventricular Rate 98 BPM Atrial Rate 98 BPM P-R Interval 164 ms QRS Duration 154 ms Q-T Interval 444 ms QTC Calculation(Bazett) 566 ms P [place] 86 degrees R [place] -77 degrees T [place] 93 degrees Normal sinus rhythm Left axis deviation Right bundle branch block Septal infarct (cited on or before ) Abnormal ECG When compared with ECG of 27-MAR-2019 12 :54, Premature atrial complexes are no longer Present T wave inversion less evident in Anterol ateral leads Confirmed by MD Nazario Roberto ([id number]) on 06/16/2019 1:43:26 PM Performing Organization Address City/State/Zipcode Phone Number [employer] EKG-SCANNED (06/08/2019 1:00 PM REFRIGERATION INSULATOR) Narrative Performed At This result has an attachment that is no t available. CARDIAC CATH REPORT - SCAN (03/31/2019 7:51 AM CDT) Narrative Performed At This result has an attachment that is no t available. RHYTHM STRIP - SCAN (03/31/2019 7:51 AM CDT) Narrative Performed At This result has an attachment that is no t available. ECHOCARDIOGRAM REPORT - SCAN (03/27/2019 9:20 PM CDT) Narrative Performed At This result has an attachment that is no t available. Transesophageal echo (03/26/2019 9:52 AM CDT) Ejection Fraction [facility] HEAR TLAB [facility] CPACS Specimen Narrative Performed At Transesophageal Echocardiography Report ([facility]) [facility] HEARTLAB [facility] CPACS Demographics Patient Name TERESA,Date of Study 03/26/[address] [id number] Gender Male Visit Number [id number] Unknown [id number] Room Number 1419 Number Date of Birth1945Referring Physician Mhoit HOLLEY Age73 year(s)Financial Examiner Ahser Quintanilla, Physician The procedure was explained in detail to the patient. Risks, complications and alternative treatments were reviewed. Written consent was obtained. Procedure Type of Study [facility] procedure:TRANSESOPHA GEAL ECHO Indications:Atrial fibrillation. Clinical History CHF,A-FIB,BLADDER CANCER,BPH,CAD,COPD,HLD,HTN,ICMP,NSTEMI,DMII,CVA,P VD,DC, S/P CABG,RESP.FAILURE Height: 71 inches Weight: 87.54 kg (193 lbs) BSA: 2.08 m^2 BMI: 26.92 kg/m^2 HR: 99 bpm BP: 121/88 mmHg Procedure Informed Consent Procedure consent form obtained. [facility] procedure notes Moderate sedation by performing MD using 3 mg IV versed and 50 mcg IV fentanyl. The patient was counseled and informed consent was obtained. Topical and intravenous anesthesia was administered. The esophagus was intubated without difficulty. The probe was passed and all standard echocardiographic views were obtained. The patient tolerated the procedure well. Summary Global LV systolic function severely re duced . No evidence of left atrial or left atrial appendage thrombus. Estimated peak systolic PA pressure is 20-25 mmHg + RA pressure. Signature Findings Left Ventricle The left ventricle is chamber size (by vol index) is normal (male - LVED vol - 34-74ml/m2). Global LV systolic function severely reduced . Left AtriumLA is enlarged but severity assessment is unreliable due to know [facility] sector size limitation. No evidence of left atrial or left atrial appendage thrombus . RightGlobal RV systolic function is depressed . Ventricle Right Atrium RA size is normal. Atrial SeptumIV saline contrast injection was negative for a PFO (patent foramen ovale) at rest . Aortic Valve Mild AoV cusp thickeni ng. Mitral Valve Mild MV leaflet thicke lacie. Trace mitral regurgitation. TricuspidTV structure is no rmal. ValveMild tricuspid regurgitation. Estimated peak systolic PA pressure is 20-25 mmHg + RA pressure . Pulmonic Valve Normal PV structure and function by limited views and Doppler. AortaGrade 2 plaque (extensive intimal thickening) in the descending thoracic aorta . PericardiumNo pericardial effusion is visualized. Left Ventricle LVEDV Coelho's:105.37 ml LVESV Coelho's:75.29 ml LVEF Coelho's: 28.5 % LVEDVI: 5 1 ml/m^2 LVESVI: 3 6 ml/m^2 Procedure Note Interface, External Ris In - 03/27/2019 1:28 PM CDT Transesophageal Echocardiography Report ([facility]) Demographics Patient Name TERESA, Date o f Study 03/26/[address] Gender Male Visit Number [id number] Race Unknown Room N [facility] 1419 Number Date of 1945 Referr ing Physician Mohit HOLLEY Age 73 year(s) Sonogr brea [place] reting Kenna Merrill MD The procedure was explained in detail t o the patient. Risks, complications and alternative treatment s were reviewed. Written consent was obtained. Procedure Type of Study [facility] procedure:TRANSESOPHAGEAL ECHO Indications:Atrial fibrillation. Clinical History CHF,A-FIB,BLADDER CANCER,BPH,CAD,COPD,HL D,HTN,ICMP,NSTEMI,DMII,CVA,PVD,DC, S/P CABG,RESP.FAILURE Height: 71 inches Weight: 87.54 kg (193 lbs) BSA: 2.08 m^2 BMI: 26.92 kg/m^2 HR: 99 bpm BP: 121/88 mmHg Procedure Informed Consent Procedure consent form obtained. [facility] procedure notes Moderate sedation by performing MD rogelio stallworth 3 mg IV versed and 50 mcg IV fentanyl. The patient was counseled and informed consent was obtained. Topical and intravenous anesthesia was administered . The esophagus was intubated without difficulty. The probe was passe d and all standard echocardiographic views were obtained. The patient tolerated the procedure well. Summary Global LV systolic function severely re duced . No evidence of left atrial or left atri al appendage thrombus. Estimated peak systolic PA pressure is 20-25 mmHg + RA pressure. Signature Findings Left Ventricle The left ventricle is ch fabi size (by vol index) is normal (male - LVED vol - 34-74 ml/m2). Global LV systolic funct ion severely reduced . Left Atrium LA is enlarged but sever ity assessment is unreliable due to know [facility]NE sector size head itation. No evidence of left atri al or left atrial appendage thrombus. Right Global RV systolic funct ion is depressed . Ventricle Right Atrium RA size is normal. Atrial Septum IV saline contrast injec tion was negative for a PFO (patent foramen ovale) at rest . Aortic Valve Mild AoV cusp thickening . Mitral Valve Mild MV leaflet thickeni ng. Trace mitral regurgitati on. Tricuspid TV structure is normal. Valve Mild tricuspid regurgita tion. Estimated peak systolic PA pressure is 20-25 mmHg + RA pressure. Pulmonic Valve Normal PV structure and function by limited views and Doppler. Aorta Grade 2 plaque (extensiv e intimal thickening) in the descending thoracic aort a . Pericardium No pericardial effusion is visualized. Left Ventricle LVEDV Coelho's:105.37 ml LVESV Coelho's:75.29 ml LVEF Coelho's: 28.5 % LVEDVI: 51 ml/m^2 LVESVI: 36 ml/m^2 Performing Organization Address City/[facility]/Zipcode Phone Number [facility] HEARTLAB [facility] CPACS Hemoglobin A1c (03/26/2019 4:09 AM CDT) Hemoglobin A1C 7.2 (H) 4.3 - 6.1 % [facility] Specimen Blood Performing Organization Address City/[facility]/[place] [address] CENTER ECG/EKG Interpretation (03/25/2019 1:57 PM CDT) Narrative Performed At Roosevelt Amin MD 03/25/2019 2:01 PM ECG/EKG Interpretation Date/Time: 03/25/2019 1:59 PM Performed by: Roosevelt Amin MD Authorized by: Roosevelt Amin MD The ECG was interpreted by ED physician. The ECG is in terpreted as atrial fibrillation. Heart rate is 98 BPM. Patient tolerance: Patient tolerated the procedure wel l with no immediate complications Comments: A-FIB RATE CONTROLLED ON MONIT OR XR chest 1 view portable / bedside (03/25/2019 11:59 AM CDT) Specimen Narrative Performed At FINAL REPORT [email or web address] INDICATION: TACHYCARDIA COMPARISON: December 26, 2018 TECHNIQUE: Single frontal view of the est. IMPRESSION: Lungs and pleura: Small moderate left ef fusion. Associated relaxation atelectasis. No lobar consolidation. Heart and mediastinum: Normal heart size . Stable surgical changes. Osseous structures: No acute abnormality . Other: None. Signed: JR Bill Robert MD Report Verified Date/Time:03/25/2019 12:17:01 Reading Location: [employer] Reading Room Procedure Note Interface, External Ris In - 03/25/2019 12:19 PM CDT FINAL REPORT INDICATION: TACHYCARDIA COMPARISON: December 26, 2018 TECHNIQUE: Single frontal view of the ch est. IMPRESSION: Lungs and pleura: Small moderate left ef fusion. Associated relaxation atelectasis. No lobar consolidation. Heart and mediastinum: Normal heart size . Stable surgical changes. Osseous structures: No acute abnormality . Other: None. Signed: JR Bill Robert MD Report Verified Date/Time: 03/25/2019 1 2:17:01 Reading Location: [employer] Reading Room Performing Organization Address City/State/Zipcode Phone Number [facility] B-type Natriuretic Factor (BNP) (03/25/2019 11:39 AM CDT) BNP 403 (H) 0 - 100 pg/mL [facility] Specimen Blood Performing Organization Address City/State/Zipcode Phone Number [facility] [address] [place] [phone] CENTER Troponin I (03/25/2019 11:38 AM CDT) Troponin I 0.03 0.00 - 0.03 ng/mL [facility] Specimen Blood Narrative Performed At Troponin I (TnI) levels must be interpreted [facility] in the context of the presenting [...] tachyarrhythmia. Performing Organization Address City/State/Zipcode Phone Number [facility] [address] [place], [place] [phone] CENTER after 03/18/2019 Insurance Payer Benefit Plan / Group Subscriber ID Type Phone A ddress [employer] - MEDICARE AARP/MEDICARE COMPLETE xxxxxxxxx [address] (Home) [id number] [place] ([place]) [place] [phone] Advance Directives For more information, please contact:TISHA LemusNell J. Redfield Memorial HospitalhayesThomas Ville [phone] [place], [place] [phone] Code Status Date Activated Date Inactivated Comments Full Code 06/16/2019 10:44 AM 06/16/2019 9:39 PM This code status was determined by: Patient Full Code 03/25/2019 3:06 PM 03/27/2019 4:22 PM This code status was determined by: Patient Full Code 12/15/2018 2:01 PM 01/01/2019 4:41 PM This code status was determined by: Patient Full Code 12/08/2018 4:57 PM 12/15/2018 2:01 PM This code status was determined by: Patient
--- OUTSIDE RECORDS SUMMARY | 2020-03-18 08:25 | XMS REPORT | Continuity of Care Document ---
:1945 Author Organization [facility] Care Team Providers Name Role Phone [facility] Unavailable Un available Problems Problem Status Onset Classification Date Comments Sourc e Date Reported Methicillin Active 03/10/20 Problem 03/15/2019 nares (PCR+), 03/10 [place] resistant 19 Problem added by Dis cern Expert. Staphylococcus aureus (organism) AFLUTTER Active 03/09/[address] Type II diabetes Active Problem 03/15/2019 [place] mellitus uncontrolled (finding) UNSPECIFIED [facility] [place] Medications Medication Details Route Status Patient Ordering Order Source Instructions Provider Date Insulin Glargine 10 unit, SUB-Q, Active 100 UNT/ML Daily, # 15 mL, 2019 [place] and Injectable 11 Refill(s) Solution [Lantus] Linagliptin 5 MG 5 mg = 1 tab, Active 03/13/ H Oral Tablet PO, Daily, # 30 2019 [place] [Tradjenta] tab, 3 Refill(s) 24 HR Metoprolol 50 mg = 1 tab, Active Tartrate 50 MG PO, Daily, # 30 [place] Extended Release tab, 2 Tablet [Toprol] Refill(s) AMIODarone 200 mg 200 mg = 1 tab, Active oral tablet PO, BID, # 60 2019 [place] tab, 2 Refill(s) Aspirin 81 MG 81 mg = 1 tab, Active Enteric Coated PO, Daily, # 30 2019 [place] Tablet tab, 11 Refill(s) bumetanide 1 mg 1 mg = 1 tab, Active oral tablet PO, Daily, # 30 2019 [place] tab, 2 Refill(s) predniSONE 10 mg See Special Active oral tablet Instructions, 2019 [place] PO, Daily, 40 mg (4 tabs) orally daily for 1 day then decrease by 10mg (1 tab) daily until completed, X 4 day, # 10 tab, 0 Refill(s) Amiodarone Notes: (Same Inactive as: Cordarone) 2019 [place] Bumex Notes: (Same Inactive As: Bumex) 2019 [place] sacubitril 24 MG / Notes: (Same No Longer valsartan 26 MG as: Entresto) Active 2019 [place] Oral Tablet Avoid in [Entresto] patients with history of angioedema due to TAMMY inhibitor or ARB therapy. Do not use concomitantly or within 36 hours of TAMMY inhibitors azithromycin 500 Notes: Take 1 Inactive mg oral tablet hour before or 2019 [place] 2 hours after meals. (Same As: Zithromax) 24 HR Metoprolol Notes: (Same No Longer Tartrate 50 MG as: Toprol XL) Active 2019 [place] Extended Release May split tab, Tablet [Toprol] but do not crush. AMIODarone 900 mg 2 mg/ml. Use No Longer + Dextrose 5% in Glass Bottle or Active 2018 [place] Water IV 482 mL Non PVC Bag "Use 0.22 micron in-line filter" MEDICATION WASTE Product Size: 900 mg Product Wasted: ___ mg Eliquis Notes: Same as: No Longer Eliquis Active 2019 [place] Famotidine 20 MG Notes: (Same No Longer Oral Tablet as: Pepcid) Active 2019 [place] Kayexalate Notes: (sodium Inactive polystyrene 2019 [place] sulfonate 15 gm/60 ml JAS) Shake well before use. (Same as: Kayexalate, SPS) Bumex Notes: (Same Inactive As: Bumex) 2019 [place] 24 HR Metoprolol Notes: (Same No Longer Tartrate 25 MG as: Toprol XL) Active 2019 [place] Extended Release Do Not Crush Tablet [Toprol] Prednisone Notes: Take No Longer with food. Active 2019 [place] Aspirin Notes: Do not No Longer crush or chew. Active 2019 [place] (Same As: Ecotrin) Insulin Lispro Notes: (Same No Longer as: Humalog) Active 2019 [place] Roll in palms of hands gently; Do not shake vigorously. WASTE: F/P - Black; E - Municipal Trash Bin Stable for 28 days at room temperature. Expires in days from D ate Lipitor Notes: (Same No Longer as: Lipitor) Active 2019 [place] Insulin Glargine 10 unit, Route: Inactive 100 UNT/ML SUB-Q, Drug 2019 [place] Injectable form: SOLN, Solution Bedtime, Dosing Weight 85, kg, Start date: 03/10/19 21:00:00 CDT, Duration: 30 day, Stop date: 04/08/19 21:00:00 CDT Ivonne Culver Notes: (Same No Longer H As: Tessalon Active 2019 [place]) "Do Not Crush" Melatonin Notes: (Same No Longer as: Melatonin) Active 2019 [place] Insulin Glargine Notes: (Same No Longer 100 UNT/ML as: Lantus) Do Active 2019 [place] Injectable not hold Solution insulin without contacting prescriber WASTE: F/P - Black; E - Municipal Trash Bin "single patient use only" Stable for 28 days at room temperature Expires in days from D ate Dextrose 50% 12.5 gm, 25 mL, No Longer H Syringe Route: IVP, Active 2018 [place] Drug Form: INJ, Dosing Weight 85, kg, PRN, PRN Blood Glucose Results, Start date: 03/10/19 12:29:00 CDT, Duration: 30 day, Stop date: 04/09/19 12:28:00 CDT, 0 Glucagon 1 mg, Route: No Longer IM, Drug form: Active 2019 [place] PDR/INJ, PRN, Dosing Weight 85, kg, PRN Blood Glucose Results, Start date: 03/10/19 12:29:00 CDT, Duration: 30 day, Stop date: 04/09/19 12:28:00 CDT, 0 Insulin Lispro Notes: (Same No Longer as: Humalog) Active 2019 [place] Roll in palms of hands gently; Do not shake vigorously. WASTE: F/P - Black; E - Municipal Trash Bin Stable for 28 days at room temperature. Expires in days from D ate Albuterol 0.833 Notes: (Same No Longer H MG/ML / as: Duoneb) Active 2019 [place] Ipratropium Ebro 0.167 MG/ML Inhalant Solution metoprolol 75 mg, PO, No Longer extended release Daily, 0 Active 2019 [place] Refill(s) pantoprazole 40 mg 40 mg = 1 tab, Active oral enteric PO, Daily, 0 2019 [place] coated tablet Refill(s) sacubitril 24 MG / 1 tab, PO, BID, Active 03/10 valsartan 26 MG 0 Refill(s) 2019 [place] Oral Tablet [Entresto] Furosemide Daily, 0 No Longer Refill(s) Active 2019 [place] Furosemide 40 MG 40 mg = 1 tab, No Longer Oral Tablet PO, Daily, 0 Active 2019 [place] Refill(s) Albuterol 0.833 3 mL, NEB, TID, Active MG/ML / PRN as needed 2019 [place] Ipratropium for shortness Ebro 0.167 of breath or MG/ML Inhalant wheezing, 0 Solution Refill(s) Xopenex NEB, TID, PRN Active as needed for 2019 [place] wheezing, 0 Refill(s) apixaban 5 MG Oral 5 mg, PO, Q12H, Active 03/10 Tablet [Eliquis] 0 Refill(s) 2019 [place] benzonatate 100 MG 100 mg = 1 cap, Active 03/10 Oral Capsule PO, TID, PRN as 2019 [place] [Tessalon Perles] needed for cough, 0 Refill(s) atorvastatin 40 MG 40 mg = 1 tab, Active Oral Tablet PO, Daily, 0 2019 [place] [Lipitor] Refill(s) 12 HR Guaifenesin 600 mg = 1 tab, Active 600 MG Extended PO, Q12H, 0 2018 [place] Release Tablet Refill(s) [Mucinex] Magnesium Oxide 400 mg, PO, Active Daily, 0 2018 [place] Refill(s) Vitamin C 500 mg 500 mg = 1 tab, Active oral tablet PO, BID, 0 2018 [place] Refill(s) multivitamin with CHEW, Daily, 0 Active minerals Refill(s) 2018 [place] Docusate Sodium 100 mg = 1 cap, Active 100 MG Oral PO, BID, PRN as 2019 [place] Capsule needed for constipation, 0 Refill(s) Budesonide Notes: (Same No Longer As: Pulmicort) Active 2018 [place] Saline Flush 0.9% Notes: (Same No Longer as: BD Active 2018 [place] Posiflush) Famotidine Notes: (Same No Longer as: Pepcid) Can Active 2018 [place] be dilute in 5-10cc NS IVP: Slow IV push over at least 2 minutes. heparin additive 500 mL, Rate: No Longer 25,000 unit [14 23.8 ml/hr, Active 2018 [place] unit/kg/hr] + Infuse over: 21 Premix Diluent hr, Route: IV, Dextrose 5% 500 mL Dosing Weight 85 kg, Total Volume: 500 mL, Start date: 03/10/19 8:27:00 CDT, Duration: 30 day, Stop date: 04/09/19 8:26:00 CDT, 2.07, m2, 0 Diltiazem Notes: (Same No Longer as: Cardizem) Active 2019 [place] Lovenox Notes: Nurse to Inactive ensure 2019 [place] documentation of patient education per anticoagulation policy. (Same as: Lovenox) Azithromycin Notes: Take 1 No Longer hour before or Active 2018 [place] 2 hours after meals. (Same As: Zithromax) Albuterol 0.833 Notes: (Same Inactive MG/ML / as: Duoneb) 2018 [place] Ipratropium Ebro 0.167 MG/ML Inhalant Solution methylPREDNISolone Notes: (Same No Longer SODium SUCCinate as:Solu-MEDROL, Active 2019 [place] A-Methapred) Lasix Notes: (Same Inactive as: Lasix) 2019 [place] MEDICATION WASTE Product Size: 40 mg Product Wasted: ___ mg Xopenex 0.63 mg, Route: Inactive INHALATION, 2019 [place] ONCE, Dosing Weight 85, kg, Start date: 03/10/19 6:44:00 CDT, Stop date: 03/10/19 6:44:00 CDT Ipratropium Notes: SEE RT Inactive Ebro 0.2 MG/ML DOCUMENTATION 2019 [place] Inhalant Solution (Same as:Atrovent) Albuterol 0.833 Notes: (Same Inactive MG/ML / as: Duoneb) 2019 [place] Ipratropium Ebro 0.167 MG/ML Inhalant Solution [DuoNeb] Potassium Chloride Notes: (Same Inactive as: K-Dur 20) 2019 [place] "Do Not Crush" Give with food and full glass of water For patients unable to swallow tablet, dissolve in one half glass of water. Allow about 2 minutes for the tablets to disintegrate. Stir before giving to prepare slurry and administer. Please exclude Patient’s with feeding tube less than 14 Frisian (Dobhoff, J-tube etc) and pediatric and patients. AMIODarone 900 mg 2 mg/ml. Use Inactive in D5W 500 ml IV Glass Bottle or 2019 [place] 900 mg + Dextrose Non PVC Bag 5% in Water IV 482 "Use 0.22 mL micron in-line filter" MEDICATION WASTE Product Size: 900 mg Product Wasted: ___ mg Nystatin 100 Notes: (Same No Longer UNT/MG Topical as:Mycostatin, Active 2019 [place] Powder Nilstat) For external use only. Acetaminophen Notes: Do not No Longer exceed 4 Active 2019 [place] gm/day. (Same as: Tylenol) Saline Flush 0.9% Notes: (Same No Longer as: BD Active 2019 [place] Posiflush) Melatonin Notes: (Same Inactive as: Melatonin) 2019 [place] melatonin 3 mg 9 mg, PO, Active oral tablet Bedtime, PRN 2019 [place] for insomnia, # 60 tab, 0 Refill(s) Saline Flush 0.9% Notes: (Same No Longer as: BD Active 2019 [place] Posiflush) Acetaminophen 325 1 tab, PO, Q4H, Active MG / Hydrocodone PRN for pain, # 2019 [place] Bitartrate 10 MG 24 tab, 0 Oral Tablet [[place] Refill(s) ] Metformin 500 mg = 1 tab, No Longer hydrochloride 500 PO, Before Active 2019 [place] MG Oral Tablet Dinner, # 30 tab, 0 Refill(s) Amlodipine 10 MG 10 mg = 1 tab, No Longer Oral Tablet PO, Daily, # 30 Active 2019 [facility] [Norvasc] tab, 0 Refill(s) theophylline 300 300 mg = 1 tab, Active mg oral tablet, PO, Q12H, # 180 2019 [place] extended release tab, 0 Refill(s) tamsulosin 0.4 mg 0.4 mg = 1 cap, Active oral capsule PO, Daily, # 90 2019 [place] cap, 0 Refill(s) Insulin Glargine 10 unit, SUB-Q, Active 100 UNT/ML Bedtime, # 3 2019 [place] Injectable mL, 3 Refill(s) Solution Breo Ellipta 200 1 puff, Active mcg-25 mcg/inh INHALATION, 2019 [place] and inhalation powder Daily, 0 Refill(s) valsartan 40 MG 40 mg = 1 tab, No Longer Oral Tablet PO, BID, # 180 Active 2019 [place] and [Diovan] tab, 0 Refill(s) Tramadol 50 mg, PO, Active ONCE, PRN 2019 [place] Insomnia, # 20 tab, 0 Refill(s) Incruse Ellipta INHALATION, Active Q24H, 0 2019 [place] Refill(s) Allergies, Adverse Reactions, Alerts Substance Category Reaction Severity Reaction Status Date Comments S ource type Reported cephalosporin Assertion Mild Drug Active s allergy [place] sulfa drugs Assertion Drug Active MH allergy [place] tetanus Assertion Allergy to Active MH immune substance [place] globulin Immunizations No Data Provided for This Section Results Order Name Results Value Reference Date Interpretation Comments Allegra rce Range CHEM PANEL Phosphorus 3.3 2.5 - 4.5 03/13 [place] CHEM PANEL Magnesium 2.3 1.8 - 2.4 03/13 Lvl /2018 [place] ELECTROLYTE AGAP 6.4 10.0 - 03/13 MH S 20.0 [place] ELECTROLYTE Glucose Lvl 184 70 - 99 03/13 S [place] ELECTROLYTE BUN 36 7 - 22 03/13 S [place] ELECTROLYTE Creatinine 1.51 0.50 - 03/13 S Lvl 1.40 /2018 [place] ELECTROLYTE Sodium Lvl 137 135 - 145 03/13 S [place] ELECTROLYTE Potassium 4.4 3.5 - 5.1 03/13 S Lvl [place] ELECTROLYTE Chloride Lvl 103 95 - 109 03/13 S [place] ELECTROLYTE CO2 32 24 - 32 03/13 S [place] ELECTROLYTE Calcium Lvl 8.6 8.5 - 10.5 03/13 MH S [place] ELECTROLYTE eGFR 45 03/13 Result S Comment: The [place] eGFR is calculated using the CKD-EPI formula. In most young, healthy individuals the eGFR will be >90 mL/min/1.73m2 . The eGFR declines with age. An eGFR of 60-89 may be normal in some populations, particularly the elderly, for whom the CKD-EPI formula has not been extensively validated. Use of the eGFR is not recommended in the following populations:< br/>
Agnieszka viduals with unstable creatinine concentration s, including patients and those with serious co-morbid conditions.<b r/>
Patie nts with extremes in muscle mass or diet.

The data above are obtained from the National Kidney Disease Education Program (NKDEP) which additionally recommends that when the eGFR is used in patients with extremes of body mass index for purposes of drug dosing, the eGFR should be multiplied by the estimated BMI. HEMATOLOGY Segs 77.9 45.0 - 03/13 MH 75.0 [place] HEMATOLOGY Lymphocytes 9.7 20.0 - 03/13 MH 40.0 /2018 [place] HEMATOLOGY Monocytes 12.1 2.0 - 12.0 09/ MH /2018 [place] HEMATOLOGY Basophils 0.3 0.0 - 1.0 09/ MH /2018 [place] HEMATOLOGY Neutrophils 5.0 1.5 - 8.1 09/ MH # /2019 [place] HEMATOLOGY Lymphocytes 0.6 1.0 - 5.5 09/ MH # /2019 [place] HEMATOLOGY Monocytes # 0.8 0.0 - 0.8 03/13 MH [place] HEMATOLOGY Microcyte 1+ None Seen 03/13 MH *ABN* /2018 [place] (03/13/19 3:42 AM) HEMATOLOGY WBC 6.4 3.7 - 10.4 09 /2018 [place] HEMATOLOGY RBC 4.45 4.70 - 03/13 MH 6.10 [place] HEMATOLOGY Hgb 11.4 14.0 - 03/13 MH 18.0 [place] HEMATOLOGY Hct 34.4 42.0 - 03/13 MH 54.0 [place] HEMATOLOGY MCV 77.3 80.0 - 03/13 MH 94.0 [place] HEMATOLOGY MCH 25.6 27.0 - 09 MH 31.0 [place] HEMATOLOGY MCHC 33.1 32.0 - 09 MH 36.0 [place] HEMATOLOGY RDW 20.7 11.5 - 09 MH 14.5 [place] HEMATOLOGY Platelet 115 133 - 450 09 [place] HEMATOLOGY MPV 8.5 7.4 - 10.4 03/13 /2018 [place] CHEM PANEL Phosphorus 3.7 2.5 - 4.5 03/12 [place] CHEM PANEL Magnesium 2.3 1.8 - 2.4 09/05 MH Lvl /2018 [place] ELECTROLYTE AGAP 11.4 10.0 - 0905 MH S 20.0 [place] ELECTROLYTE Glucose Lvl 167 70 - 99 09/05 MH S [place] ELECTROLYTE BUN 34 7 - 22 09/05 MH S [place] ELECTROLYTE Creatinine 1.36 0.50 - 0905 MH S Lvl 1.40 /2018 [place] ELECTROLYTE Sodium Lvl 141 135 - 145 09/05 MH S [place] ELECTROLYTE Potassium 4.4 3.5 - 5.1 09/05 S Lvl /2019 [place] ELECTROLYTE Chloride Lvl 103 95 - 109 03/12 S [place] ELECTROLYTE CO2 31 24 - 32 03/12 S [place] ELECTROLYTE Calcium Lvl 8.7 8.5 - 10.5 03/12 S [place] ELECTROLYTE eGFR 52 03/12 Result S Comment: The [place] eGFR is calculated using the CKD-EPI formula. In most young, healthy individuals the eGFR will be >90 mL/min/1.73m2 . The eGFR declines with age. An eGFR of 60-89 may be normal in some populations, particularly the elderly, for whom the CKD-EPI formula has not been extensively validated. Use of the eGFR is not recommended in the following populations:< br/>
Agnieszka viduals with unstable creatinine concentration s, including patients and those with serious co-morbid conditions.<b r/>
Patie nts with extremes in muscle mass or diet.

The data above are obtained from the National Kidney Disease Education Program (NKDEP) which additionally recommends that when the eGFR is used in patients with extremes of body mass index for purposes of drug dosing, the eGFR should be multiplied by the estimated BMI. HEMATOLOGY Segs 82.1 45.0 - 03/12 MH 75.0 [place] HEMATOLOGY Lymphocytes 7.5 20.0 - 03/12 MH 40.0 [place] HEMATOLOGY Monocytes 10.2 2.0 - 12.0 03/12 [place] HEMATOLOGY Eosinophils 0.1 0.0 - 4.0 03/12 [place] HEMATOLOGY Basophils 0.1 0.0 - 1.0 03/12 [place] HEMATOLOGY Neutrophils 7.1 1.5 - 8.1 03/12 MH # /2019 [place] HEMATOLOGY Lymphocytes 0.7 1.0 - 5.5 03/12 # /2019 [place] HEMATOLOGY Monocytes # 0.9 0.0 - 0.8 03/12 [place] HEMATOLOGY Microcyte 1+ None Seen 03/12 *ABN* /2018 [place] (03/12/19 5:23 AM) HEMATOLOGY WBC 8.7 3.7 - 10.4 03/12 [place] HEMATOLOGY RBC 4.52 4.70 - 03/12 MH 6. [place] HEMATOLOGY Hgb 11.6 14.0 - 09/05 MH 18.0 /2018 [place] HEMATOLOGY Hct 34.8 42.0 - 03/12 MH 54.0 /2018 [place] HEMATOLOGY MCV 77.0 80.0 - 03/12 MH 94.0 [place] HEMATOLOGY MCH 25.6 27.0 - 09 MH 31.0 [place] HEMATOLOGY MCHC 33.3 32.0 - 09 MH 36.0 /2018 [place] HEMATOLOGY RDW 20.6 11.5 - 09 MH 14.5 [place] HEMATOLOGY Platelet 113 133 - 450 09/ [place] HEMATOLOGY MPV 8.6 7.4 - 10.4 03/12 [place] CHEM PANEL Glucose Lvl 214 70 - 99 03/11 [place] CHEM PANEL BUN 33 7 - 22 03/11 [place] CHEM PANEL Creatinine 1.46 0.50 - 03/11 MH Lvl 1.40 /2018 [place] CHEM PANEL Sodium Lvl 136 135 - 145 03/11 [place] CHEM PANEL Potassium 3.9 3.5 - 5.1 / MH Lvl /2018 [place] CHEM PANEL Chloride Lvl 100 95 - 109 09 [place] CHEM PANEL CO2 28 24 - 32 03/11 [place] CHEM PANEL Calcium Lvl 8.8 8.5 - 10.5 03/11 [place] CHEM PANEL AGAP 11.9 10.0 - 03/11 MH 20.0 [place] CHEM PANEL eGFR 47 03/11 Result Comment: The [place] eGFR is calculated using the CKD-EPI formula. In most young, healthy individuals the eGFR will be >90 mL/min/1.73m2 . The eGFR declines with age. An eGFR of 60-89 may be normal in some populations, particularly the elderly, for whom the CKD-EPI formula has not been extensively validated. Use of the eGFR is not recommended in the following populations:< br/>
Agnieszka viduals with unstable creatinine concentration s, including patients and those with serious co-morbid conditions.<b r/>
Patie nts with extremes in muscle mass or diet.

The data above are obtained from the National Kidney Disease Education Program (NKDEP) which additionally recommends that when the eGFR is used in patients with extremes of body mass index for purposes of drug dosing, the eGFR should be multiplied by the estimated BMI. HEMATOLOGY PTT 64.3 22.9 - 09/ MH 35.8 [place] HEMATOLOGY PT 14.1 12.0 - 03/11 MH 14.7 [place] HEMATOLOGY INR 1.11 0.85 - 09/ MH 1.17 [place] HEMATOLOGY PTT 96.8 22.9 - 09 MH 35.8 [place] CARDIAC Troponin-I 0.03 0.00 - 09 MH ENZYMES 0.40 [place] CHEM PANEL Magnesium 2.4 1.8 - 2.4 09/ MH Lvl [place] CHEM PANEL Phosphorus 2.8 2.5 - 4.5 / [place] HEMATOLOGY PTT 73.4 22.9 - 03/11 MH 35. [place] HEMATOLOGY Segs 89.9 45.0 - 09 MH 75.0 [place] HEMATOLOGY Lymphocytes 7.4 20.0 - 03/11 MH 40.0 [place] HEMATOLOGY Monocytes 2.4 2.0 - 12.0 / /2018 [place] HEMATOLOGY Basophils 0.3 0.0 - 1.0 09/ MH /2018 [place] HEMATOLOGY Neutrophils 5.0 1.5 - 8.1 09/ MH # /2018 [place] HEMATOLOGY Lymphocytes 0.4 1.0 - 5.5 / MH # /2018 [place] HEMATOLOGY Monocytes # 0.1 0.0 - 0.8 03/11 /2018 [place] HEMATOLOGY WBC 5.6 3.7 - 10.4 09/ MH /2018 [place] HEMATOLOGY RBC 4.65 4.70 - 03/11 MH 6.10 [place] HEMATOLOGY Hgb 11.7 14.0 - 03/11 MH 18.0 [place] HEMATOLOGY Hct 36.8 42.0 - 09 MH 54.0 [place] HEMATOLOGY MCV 79.0 80.0 - 03/11 MH 94.0 [place] HEMATOLOGY MCH 25.2 27.0 - 09 MH 31.0 [place] HEMATOLOGY MCHC 31.9 32.0 - 09 MH 36.0 [place] HEMATOLOGY RDW 20.4 11.5 - 09 MH 14.5 [place] HEMATOLOGY Platelet 109 133 - 450 09 MH /2018 [place] HEMATOLOGY MPV 9.3 7.4 - 10.4 03/11 /2018 [place] CARDIAC Troponin-I 0.03 0.00 - 03/10 ENZYMES 0.40 [place] HEMATOLOGY INR 1.15 0.85 - 03/10 MH 1.17 [place] HEMATOLOGY PT 14.5 12.0 - 03/10 MH 14.7 /2018 [place] HEMATOLOGY Eosinophils 0.2 0.0 - 0.5 03/10 MH # /2019 [place] HEMATOLOGY Bands 0.0 0.0 - 11.0 03/10 /2018 [place] HEMATOLOGY Eosinophils 3.0 0.0 - 4.0 03/10 [place] HEMATOLOGY Atypical 7.0 <=0.0 % 03/10 Lymphs [place] HEMATOLOGY RBC Morph See Note Normal 03/10 (03/10/19 9:29 AM) [facility] HEMATOLOGY Plt Morph Normal Normal 03/10 (03/10/19 9:29 AM) [facility] Anisocyte 1+ None Seen 03/10 MH *ABN* /2018 [place] (03/10/19 9:29 AM) HEMATOLOGY Hypochrom 1+ None Seen 03/10 (03/10/19 9:29 AM) [facility] d HEMATOLOGY Tear Cell Few 03/10 [place] HEMATOLOGY Spherocyte Occasional None Seen 03/10 *ABN* [place] (03/10/19 9:29 AM) HEMATOLOGY Toxic Gran Slight 03/10 [place] HEMATOLOGY Acanthocyte Few 03/10 [place] CARDIAC Troponin-I 0.05 0.00 - 03/10 ENZYMES 0.40 [place] CHEM PANEL Lactic Acid 1.1 0.5 - 2.2 03/10 Lvl /2018 [place] BACTERIAL - MRSA by PCR Positive 1 03/10 Result SEROLOGY *ABN* Comment: Romi (03/10/19 1:57 AM) "Significant Findings called to [place] Ayala on 03/10/2019 15:36 by SBP. Read Back OK." CARDIAC BNP 226 <=100 03/10 ENZYMES pg/mL /2018 [place] CHEM PANEL Total 6.5 6.4 - 8.4 03/10 MH Protein [place] CHEM PANEL Albumin Lvl 2.9 3.5 - 5.0 03/10 [place] CHEM PANEL ALT 19 0 - 65 03/10 [place] CHEM PANEL AST 9 0 - 37 03/10 [place] CHEM PANEL Alk Phos 64 39 - 136 03/10 [place] CHEM PANEL Bili Total 0.4 0.2 - 1.3 03/10 [place] CHEM PANEL B/C Ratio 22 6 - 25 03/10 [place] CHEM PANEL Globulin 3.6 2.7 - 4.2 03/10 [place] CHEM PANEL A/G Ratio 0.8 0.7 - 1.6 03/10 [place] CHEM PANEL Lactic Acid 2.1 0.5 - 2.2 03/10 Lvl /2018 [place] HEMATOLOGY PT 14.9 12.0 - 03/10 MH 14.7 [place] HEMATOLOGY INR 1.19 0.85 - 03/10 MH 1.17 [place] HEMATOLOGY Eosinophils 3.5 0.0 - 4.0 03/10 [place] HEMATOLOGY Eosinophils 0.2 0.0 - 0.5 03/10 MH # /2018 [place] HEMATOLOGY Basophils # 0.1 0.0 - 0.2 03/10 [place] LIPIDS Chol 114 <=199 03/10 mg/dL [place] LIPIDS Trig 93 <=149 03/10 mg/dL [place] LIPIDS HDL 55 >=61 mg/dL 03/10 [place] LIPIDS CHD Risk 2.07 4.00 - 03/10 MH 7.30 [place] LIPIDS LDL 40 <=99 mg/dL 03/10 (Calculated) [place] LIPIDS VLDL 19 03/10 [place] SPECIAL Hgb A1C 6.7 <=5.6 % 03/10 CHEMISTRY [place] Pathology Reports No Data Provided for This Section Diagnostic Reports Report Value Date Source Chest 1view DX Patient Name: DARELL HAUSER : [birth year] 03/10/2019 [facility] Age: 73 years, Male MR: [id number] Study: Chest 1view DX 03/10/2019 6:43 CDT Indication: - pulmonary edema. Comparison: None Findings: Lines/tubes: None. Cardiovascular: Normal cardiac silhouette. Athe rosclerotic calcifications. Mediastinum: No mediastinal or hilar mass or ly mphadenopathy. Lungs: No parenchymal mass. Airspace opacity in the left lung base. Calcified granuloma in the left midlung region. Pleura: Small left pleural effusion. No pneum othorax. Soft tissues: Normal. Bones: No acute osseous abn ormality. Median sternotomy wires. Degenerative changes of the thoracic spine. IMPRESSION: Airspace opacity in the left lung base may represent atelectasis or developing pneumonia. Small left pleural effusion. SL: [id number] Consultation Notes No Data Provided for This Section Discharge Summaries No Data Provided for This Section History and Physicals No Data Provided for This Section Vital Signs Vital Sign Value Date Comments Source Systolic (mm Hg) 154 03/13/2019 [facility] Diastolic (mm Hg) 82 03/13/2019 [place] Respitory Rate 25 03/13/2019 [facility] Systolic (mm Hg) 145 03/13/2019 [facility] Diastolic (mm Hg) 74 03/13/2019 [place] Respitory Rate 30 03/13/2019 [facility] Systolic (mm Hg) 139 03/13/2019 [facility] Diastolic (mm Hg) 69 03/13/2019 [place] Respitory Rate 24 03/13/2019 [facility] Temperature Oral (F) 98.2 F 03/13/2019 [facility] Temperature Oral (F) 98.1 F 03/13/2019 [facility] Temperature Oral (F) 98.3 F 03/13/2019 [facility] Height 180.34 cm 03/12/2019 [facility] Height 180.34 cm 03/10/2019 [facility] Weight 85 03/10/2019 [facility] BMI Calculated 26.14 03/10/2019 [facility] Encounters Location Location Encounter Encounter Reason Attending ADM DC Stat us Source Details Type Number For Provider Date Date [facility] [id number] 03/10 03/13 Chris Delarosa [facility] Procedures No Data Provided for This Section Assessment and Plan Assessment and Plan Date Source Extracted from:Title: PCCM 03/13/2019 [facility] Author: Bj Kelley MD Date: 03/13/19 [facility] Pulmonary/Critical Care Progress Note History of Present Illness Mr. Hauser is a 73 year old man with history of COPD, CAD with recent CABG who was admitted 03/10/19 for atrial flutter and COPD exacerbation. Overnight events He did well overnight without acute events On amiodarone infusion, to complete in 30 minutes Review of systems Constitutional: no fever, no chills Respiratory: no cough, no shortness of breath Cardiovascular: no chest pain, no palpitations GI: no vomiting, no diarrhea Allergies (3) Active Reaction cephalosporins None Documented sulfa drugs None Documented tetanus immune globulin None Documented Vital Signs (last 24 hrs) Last Charted Temp Axillary H 98.2DegF (MAR 13 08:00) Heart Rate Apical 84 bpm (MAR 13 06:00) Resp Rate H 24BRMIN (MAR 13 07:10) Physical examination General: Lying in bed with head of bed a t 30 degrees, in no distress, appears comfortable Heart: Regular rate and rhythm, S1 and S2 heard Lungs: Clear to auscultation bilaterally, normal work of holly athing Abdomen: Soft, nondistended, bowel sounds normoactive Extremities: No edema in legs, extremities are warm Skin: No rashes, no bruises Neurologic: Awake/alert, speech fluent I/O Intake Output Balance 03/12/2019 7a-3p 901.93 110.00 791.93 3p-11p 736.68 670.00 66.68 11p-7a 10.00 0.00 10.00 Totals 1648.61 780.00 868.61 03/11/2019 7a-3p 48.00 400.00 -352.00 3p-11p 264.00 600.00 -336.00 11p-7a 140.00 750.00 -610.00 Totals 452.00 1750.00 -1298.00 Labs (Last four charted values) WBC 6.4 (MAR 06) 8.7 (MAR 05) 5.6 (MAR 04) 6.4 (MAR 03) Hgb L 11.4 (MAR 0 6) L 11.6 (MAR 05) L 11.7 (MAR 04) L 12.2 (MAR 03) Hct L 34.4 (MAR 0 6) L 34.8 (MAR 05) L 36.8 (MAR 04) L 39.1 (MAR 03) Plt L 115 (MAR 06 ) L 113 (MAR 05) L 109 (MAR 04) L 115 (MAR 03) Na 137 (MAR 06) 141 (MAR 05) 136 (MAR 11) 140 (MAR 11) K 4.4 (MAR 06) 4.4 (MAR 05) 3.9 (MAR 04) H 5.4 (MAR 04) CO2 32 (MAR 06) 31 (MAR 05) 28 (MAR 11) 32 (MAR 11) Cl 103 (MAR 06) 103 (MAR 05) 100 (MAR 11) 102 (MAR 11) Cr H 1.51 (MAR 0 6) 1.36 (MAR 05) H 1.46 (MAR 11) 1.34 (MAR 11) BUN H 36 (MAR 13) H 34 (MAR 12) H 33 (MAR 11) H 31 (MAR 11) Glucose Random H 184 (MAR 06 ) H 167 (MAR 05) H 214 (MAR 11) H 178 (MAR 11) Mg 2.3 (MAR 06) 2.3 (MAR 05) 2.4 (MAR 11) 2.1 (MAR 10) Phos 3.3 (MAR 06) 3.7 (MAR 05) 2.8 (MAR 11) 2.9 (MAR 03) Ca 8.6 (MAR 06) 8.7 (MAR 05) 8.8 (MAR 04) L 8.4 (MAR 04) PT 14.1 (MAR 04) 14.5 (MAR 03) H 14.9 (MAR 03) INR 1.11 (MAR 04) 1.15 (MAR 03) H 1.19 (MAR 03) PTT H 64.3 (MAR 0 4) H 96.8 (MAR 04) H 73.4 (MAR 04) H 97.0 (MAR 03) Troponin 0.03 (MAR 04) 0.03 (MAR 03) 0.05 (MAR 03) 0.05 (MAR 10) Imaging/Studies No new studies Impression 1. Acute on chronic hypoxemic respiratory failure, improved 2. COPD with exacerbation 3. Atrial flutter s/p electrical cardioversion 4. Acute on chronic systolic CHF 5. CAD, h/o recent CABG _ Plan 1. On amiodarone infusion s/p cardioversion, to transition t o PO this morning 2. Continue Duonebs, budesonide nebs, pr ednisone daily for COPD exacerbation x 3 more days then can stop 3. Continue Lantus daily with high dose insulin sliding scal e 4. Continue aspirin, statin for CAD 5. OK to discharge from pulmonary standp oint to SNF after amiodarone infusion completed Lines: PIVs, no [place] Prophylaxis: DVT - apixaban ; Stress ulcer - not indicated Bj Kelley MD #[id number] Pulmonary/Critical Care Medicine [facility] Extracted from:Title: History and Physical Author: Selena Yeh MD Date: 03/10/19 Patient is a 73-year-old male with past medical history ofCAD status post CABG in December 2018, COPD,[facility] due toconcerns ofnew onset atrial flutteryesterday Atrial flutter(I48.92) Maintained on an amiodarone drip. We wi ll keep on drip due to hemodynamically lability. Cardiology on consult. Lovenox 1 mg/kg. May benefit from cardioversion, will keep NPO. Echocardiogram ordered. Ordered: Admit/Condition, 03/10/19 3:16:00 CDT, S tatus: Inpatient, ICU, Expected LOS: 3 or Greater Midnights, Selena Yeh MD, Admit MD Review/Approve No, Isolation: No Isolation/Standard Precautions, Atrial flutter COPD exacerbation Duo nebs every 4h, Solu-Medrol,BiPAPfor work of breathing. P ulmonary consult CHFmildly decompensated Intermittent Lasix doses as needed. We will give Lasix 40 mg IV x1. Hypothyroidism Increase home dose ofthyroid medication Lovenox Greater than 2-3 midnights. Plan of Care No Data Provided for This Section Social History Social History Date Source Social History TypeResponse 03/10/2019 [facility] Alcohol Never Employment/School Status: Retired. Substance Abuse Use: None. Smoking Status Former smoker; Type: Cigarettes; Concern s about tobacco use in household: No; Exposure to Tobacco Smoke None; Cigarette Smoking Last 365 Days No; Reg Smoking Cessation Counseling No1 entered on: 03/10/19 1STOPPED SMOKING 14 YEARS AGO Family History No Data Provided for This Section Advance Directives No Data Provided for This Section Functional Status No Data Provided for This Section
--- OUTSIDE RECORDS SUMMARY | 2020-03-18 08:34 | XMS REPORT | Continuity of Care Document ---
:1945 Author Organization [facility] t Address [address] [place] [address] Dr. Rico. [address] [place] [address] Care Team Providers Name Role Phone Kelli Osman MD. Primary Care Physician BRODERICK BOWIE Attending Clinician Unavailable Broderick Bowie MD Attending Clinician Laith Lockett MD Attending Clinician Basim Bowie MD Attending Clinician Keaton CHOU Attending Clinician Niyah Zambrano MD Attending Clinician [phone] Moose Gasca MD Attending Clinician MOOSE GASCA Attending Clinician Unavailable Ramandeep Faulkner MD Attending Clinician Andrew Armstrong MD Attending Clinician Ramandeep FAULKNER Attending Clinician Unavailable Norman Attending Clinician HUNTER BLAND Attending Clinician Unavailable BRODERICK BOWIE Admitting Clinician Unavailable MOOSE GASCA Admitting Clinician Unavailable ANDREW ARMSTRONG Admitting Clinician Unavailable Norman Admitting Clinician HUNTER BLAND Admitting Clinician Unavailable Payers Payer Name Policy Policy Number Effective Expiration Source Type Date Date [facility] - x[facility] - Medical CAREAARP/MEDICARE Center COMPLETExxxxxxxxx [facility] MEDICAREAARP xxxxxxxxx 2016 [place] MEDICARE COMPLETE 00:00:[address] [id number] resentHMO Problems Condition Condition Condition Status Onset Resolution Last Treating Co mments Source Name Details Category Date Date Treatment Clinician Date Bladder Bladder Disease Active [facility] cancer cancer 5-29 [facility] 00 Center Cardiomyop Cardiomyop Disease Active 2018-[address] athy athy 2-10 [facility] - 00:[facility]: Medical 00 [place] Dizziness Dizziness Disease Active [facility] 9-18 [facility] Medical 00 [place] 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 Dinuba AFLUTTER Diagnosis Active 2019-03-31 M emoria 03-09 22:11:00 l AFLUTTER 00:00: Tre n 00 Active 03/09/2019 [facility] Chris S/P CABG x S/P CABG x Disease Active [facility] 2 by 2 by 12-17 Lukomal - Afshan on Afshan on 00:00: Me dical 12/15 12/15 00 Center COPD COPD Disease Active [facility] exacerbati exacerbati 6-04 Radha kes - on on 00:00: Medical 00 Center NSTEMI NSTEMI Disease Active [facility] (non-ST (non-ST 6-04 [facility] - elevated elevated 00:00: Medica l myocardial myocardial 00 Ce nter infarction infarction ) ) PVD PVD Disease Active [facility] (periphera (periphera 6-04 Radha kes - l vascular l vascular 00:00: Me dical disease) disease) 00 Center Acute and Acute and Disease Active [facility] chronic chronic 6-03 [facility] - respirator respirator 00:00: Me dical y failure y failure 00 Cent er with with hypoxia hypoxia Type II Problem Active 2019-03-15 Boby moriah diabetes 21:45:31 l mellitus Type II Kathia nn uncontroll diabetes ed mellitus (finding) uncontroll ed (finding) Active Problem 03/15/2019 [facility] UNSPECIFIE Diagnosis Active 2019-03-31 Memoria D ATRIAL 22:11:00 l FLUTTER [place] UNSPECIFIE D ATRIAL FLUTTER Active [facility] CAD CAD Disease Active [facility] (coronary (coronary [facility] - artery artery Medical disease) disease) Center CHF CHF Disease Active [facility] (congestiv (congestiv Radha kes - e heart e heart Medical failure) failure) Center Ischemic Ischemic Disease Active Overview: [facility] cardiomyop cardiomyop EF < 20% [facility] Type 2 Type [address] [facility] diabetes diabetes [facility] - mellitus mellitus Medica Center BPH BPH Disease Active [facility] (benign (benign [facility] - prostatic prostatic Medi bassem hyperplasi hyperplasi Ce nter a) a) Acute on Acute on Disease Active [facility] chronic chronic [facility] - systolic systolic Medica heart heart Center failure failure Acute Acute Disease Active [facility] respirator respirator Radha kes - y y Medical insufficie insufficie Ce nter ncy ncy Acute Acute Disease Active [facility] blood loss blood loss Radha kes - anemia anemia [facility] Hyperglyce Hyperglyce Disease Active [facility] brianna [facility] Chronic Chronic Disease Active [facility] obstructiv obstructiv Radha kes - e e Medical pulmonary pulmonary Cent er disease, disease, unspecifie unspecifie d COPD d COPD type type Atrial Atrial Disease Active [facility] fibrillati fibrillati Radha kes - on with on with Medical RVR RVR Center Paroxysmal Paroxysmal Disease Active [facility] atrial atrial [facility] - fibrillati fibrillati Me dical on on Center Allergies, Adverse Reactions, Alerts Allergy Allergy Status Severity Reaction(s) Onset Inactive Treating Comm ents Source Name Type Date Date Clinician Cephalos DA Active [facility] porins 7-29 [place] 00:00: d 00 Medical Center Tetanus Propensi Active Anaphylaxis [facility] Vaccines ty to 6 [facility] - And adverse 00:00: Medical Toxoid reaction 00 Center s Cephalos Drug Active [facility] porins Allergy 12-08 [facility] - 00:[facility]: Medical 00 Center Sulfa Propensi Active [facility] (Sulfona ty to 6 [facility] - mide adverse 00:00: Medical Antibiot reaction 00 Center ics) s Tetanus DA Active SV 2016-07 [facility] Vaccines 08-19 [place] and 00:00: d Toxoid 00 Medical Center Cephalos Propensi Active 2016-07 [place] porins ty to 07-16 Methodi adverse 00:00: st reaction 00 s to drug Tetanus Propensi Active 2016-07 [place] Vaccines ty to 07-16 Methodi And adverse 00:00: st Toxoid reaction 00 s to drug Sulfa Propensi Active Rash [place] (Sulfona ty to 324 Methodi mide adverse 00:00: st Antibiot reaction 00 ics) s to drug Tetanus Propensi Active Anaphylaxis [facility] ty to 09-28 Methodi Diphther adverse 00:00: st ia reaction 00 Toxoids, s to Adsorbed drug , Adult cephalos cephalos Active Mild Memori a porins porins l Chris sulfa sulfa Active Memoria drugs drugs l [place] tetanus tetanus Active Memoria immune immune l globulin globulin Tre n Family History Family Member Diagnosis Comments Start Date Stop Date Source Natural brother Atrial fibrillation [facility] Natural father Aortic aneurysm [facility] Natural father Cancer [facility] Natural father Heart disease [facility] Natural mother Atrial fibrillation [facility] Social History Social Habit Start Date Stop Date Quantity Comments Source History of tobacco Current smoker [facility] History SDOH [facility] - Alcohol Std Drinks [facility]ica [facility] Medical Jer[facility] Sex Assigned At [facility] Cigarettes smoked 2019-08-07 2019-08-07 Jose Miguel Congregational current (pack per 00:00:00 00:00:00 day) - Reported Cigarette 2019-08-07 2019-08-07 Jose Miguel Method ist pack-years 00:00:00 00:00:00 Alcohol intake 2019-08-07 2019-08-07 Ex-drinker Jose Miguel Me thodist 00:00:00 00:00:00 (finding) History SDOH 2019-03-25 2019-03-[address] Garci[place]omal - Alcohol Frequency 00:00:00 00:00:00 [facility] Social History 2019-03-10 2019-03-10 Deidre zhu 07:43:39 07:43:39 Smoking Status Start Date Stop Date Source Former smoker 2019-12-04 00:00:00 2019-12-04 00:00:00 [facility] Medications Ordered Filled Start Stop Current Ordering Indication Dosage Frequency Signature Comments Components Source Medication Medication Date Date Medication? Clinician (SIG) Name Name nitrofurant 2020- No 100mg Q.5D Take [address] oin, 12-03 capsule [facility] - macrocrysta 00:00: 23:59 (100 mg Me dical l-monohydra 00 :00 total) by [facility] ter te, mouth 2 (MACROBID) (two) 100 MG times capsule daily for 3 days. phenazopyri 2019- No 200mg Take [address] dine 12-03 tablet [facility] - (PYRIDIUM) 00:00: 23:59 (200 mg Med ical 200 MG 00 :00 total) by [place] tablet mouth 3 (three) times daily as needed for Pain for up to 3 days. linaGLIPtin Yes 5mg QD Take [address] (TRADJENTA) 5-04 by mouth Luke s - 5 mg Tab 10:01: daily . Medica l 51 Center furosemide Yes 40mg Take [address] (LASIX) 40 5-04 by mouth 2 Edda es - MG tablet 10:01: (two) Medical 51 times Center daily as needed . fluticasone 2018-07 Yes Inhale by [facility] /vilanterol 2-10 mouth via [place] - (BREO 11:31: inhaler. Medical ELLIPTA 17 Center INHL) albuterol 2018-07 Yes 1{puff} Inhale [address] HFA 2-10 puff by [facility] - (VENTOLIN 11:31: mouth via Med ical HFA) 90 17 inhaler Center mcg/actuati every 6 on inhaler (six) hours as needed for Wheezing. guaiFENesin 2018-07 Yes 1200mg Q.5D Take 1,[address] (MUCINEX) 2-10 mg by [facility] - 600 mg 12 11:31: mouth 2 Medic al hr tablet 17 (two) Center times daily. tamsulosin 2018-07 Yes .4mg QD Take 0.[address] (FLOMAX) 2-10 mg by [facility] - 0.4 mg Cap 11:29: mouth Medica l 24 hr 54 daily. Center capsule metFORMIN 2018-07 Yes 500mg Take [address] (GLUCOPHAGE 2-10 mg by [facility] - ) 500 MG 11:29: mouth 2 Medica l tablet 53 (two) Center times daily with breakfast and dinner. sacubitril- 2018-07 Yes 1{tbl} Q.5D Take [address] valsartan 2-10 tablet by [facility] - (ENTRESTO) 11:29: mouth 2 Medi bassem 24-26 mg 53 (two) Center Tab times daily. ascorbic 2018-07 Yes 500mg Q.5D Take [address] acid, 2-10 mg by [facility] - vitamin C, 11:29: mouth 2 Medi bassem (ASCORBIC 53 (two) Center ACID WITH times IGNACIO HIPS) daily. 500 MG tablet pantoprazol 2018-07 Yes 40mg QD Take [address] [facility] e 2-10 by mouth [facility] - (PROTONIX) 11:29: daily. Medic al 40 MG 53 Center tablet apixaban Yes 5mg Q.5D Take [address] (ELIQUIS) 5 9-20 tablet (5 Edda es - mg Tab 00:00: mg total) Medica l tablet 00 by mouth 2 Center (two) times daily. melatonin 3 Yes 3mg Take [address] mg Tab 18 by mouth [facility] - tablet 21:04: every Medical 38 night as Center needed. umeclidiniu 2019- No 62.5{in QD 62.[address] m (INCRUSE 03-25 haler} Inhalers Radha kes - ELLIPTA) 13:50: 00:00 by inhal. Med ical 62.5 40 :00 via small Center mcg/actuati vol.nebuli on DsDv zer route powder for daily. inhalation tamsulosin 2019-0 2019- No .4mg QD Take 0.[address] (FLOMAX) 03-25 09-18 mg by [facility] - 0.4 mg Cap 13:49: 00:00 mouth Medic al 24 hr 51 :00 daily. Center capsule metFORMIN 2019 2019- No 500mg Q.5D Take [address] (GLUCOPHAGE 03-25 09-18 mg by [facility] - ) 500 MG 13:49: 00:00 mouth 2 Medic al tablet 03 :00 (two) Center times daily. Insulin 20190 Yes 10 unit, Memori a Glargine 03-13 SUB-Q, l 100 UNT/ML 15:20: Daily, # cotton Injectable 00 15 mL, 11 Solution Refill(s) [Lantus] Insulin Yes 10 unit, Memori a Glargine - SUB-Q, l 100 UNT/ML 15:20: Daily, # cotton Injectable 00 15 mL, 11 Solution Refill(s) [Lantus] Linagliptin Yes 5 mg = 1 Me moria 5 MG Oral -06 tab, PO, l Tablet 15:17: Daily, # Chris [Tradjenta] 00 30 tab, 3 Refill(s) Linagliptin Yes 5 mg = 1 Me moria 5 MG Oral 9-06 tab, PO, l Tablet 15:17: Daily, # Chris [Tradjenta] 00 30 tab, 3 Refill(s) 24 HR Yes 50 mg = 1 Memoria Metoprolol -06 tab, PO, l Tartrate 50 15:13: Daily, # He rmann MG Extended 00 30 tab, 2 Release Refill(s) Tablet [Toprol] AMIODarone Yes 200 mg = 1 M emoria 200 mg oral 9-06 tab, PO, l tablet 15:13: BID, # 60 Tre n 00 tab, 2 Refill(s) Aspirin 81 2019-0 Yes 81 mg = 1 Me moria MG Enteric 9-06 tab, PO, l Coated 15:13: Daily, # Chris Tablet 00 30 tab, 11 Refill(s) bumetanide Yes 1 mg = 1 Mem oria 1 mg oral 9-06 tab, PO, l tablet 15:13: Daily, # [place] 00 30 tab, 2 Refill(s) predniSONE Yes See Memoria 10 mg oral 03-13 Special l tablet 15:13: Instructio Kathia nn 00 ns, PO, Daily, 40 mg (4 tabs) orally daily for 1 day then decrease by 10mg (1 tab) daily until completed, X 4 day, # 10 tab, 0 Refill(s) 24 HR Yes 50 mg = 1 Memoria Metoprolol 03-13 tab, PO, l Tartrate 50 15:13: Daily, # He rmann MG Extended 00 30 tab, 2 Release Refill(s) Tablet [Toprol] AMIODarone Yes 200 mg = 1 M emoria 200 mg oral 03-13 tab, PO, l tablet 15:13: BID, # 60 Tre n 00 tab, 2 Refill(s) Aspirin 81 Yes 81 mg = 1 Me moria MG Enteric 03-13 tab, PO, l Coated 15:13: Daily, # Chris Tablet 00 30 tab, 11 Refill(s) bumetanide Yes 1 mg = 1 Mem oria 1 mg oral 03-13 tab, PO, l tablet 15:13: Daily, # Chris 00 30 tab, 2 Refill(s) predniSONE Yes See Memoria 10 mg oral 03-13 Special l tablet 15:13: Instructio Kathia nn 00 ns, PO, Daily, 40 mg (4 tabs) orally daily for 1 day then decrease by 10mg (1 tab) daily until completed, X 4 day, # 10 tab, 0 Refill(s) Amiodarone No Notes: Memor ia 03-13 (Same as: l 14:00: Cordarone) Bumex No Notes: Memoria 03-13 (Same As: l 14:00: Bumex) Amiodarone No Notes: Memor ia 03-13 (Same as: l 14:00: Cordarone) Bumex No Notes: Memoria 03-13 (Same As: l 14:00: Bumex) sacubitril No Notes: Memor ia 24 MG / 03-13 (Same as: l valsartan 02:00: Entresto) Her cotton 26 MG Oral 00 Avoid in Tablet patients [Entresto] with history of angioedema due to TAMMY inhibitor or ARB therapy. Do not use concomitan tly or within 36 hours of TAMMY inhibitors sacubitril No Notes: Memor ia 24 MG / 03-13 (Same as: l valsartan 02:00: Entresto) Her cotton 26 MG Oral 00 Avoid in Tablet patients [Entresto] with history of angioedema due to TAMMY inhibitor or ARB therapy. Do not use concomitan tly or within 36 hours of TAMMY inhibitors azithromyci No Notes: Boby moriah n 500 mg 05 Take 1 l oral tablet 16:34: hour Tre n 00 before or 2 hours after meals. (Same As: Zithromax) azithromyci No Notes: Boby moriah n 500 mg 9-05 Take 1 l oral tablet 16:34: hour Tre n 00 before or 2 hours after meals. (Same As: Zithromax) 24 HR No Notes: Memoria Metoprolol - (Same as: l Tartrate 50 15:20: Toprol XL) [place] MG Extended 00 May split Release tab, but Tablet do not [Toprol] crush. 24 HR No Notes: Memoria Metoprolol 9-05 (Same as: l Tartrate 50 15:20: Toprol XL) [place] MG Extended 00 May split Release tab, but Tablet do not [Toprol] crush. AMIODarone No 2 mg/ml. Me moria 900 mg + 03-12 Use Glass l Dextrose 5% 13:01: Bottle or H ermann in Water IV 00 Non PVC 482 mL Bag "Use 0.22 micron in-line filter" MEDICATION WASTE Product Size: 900 mg Product Wasted: ___ mg AMIODarone No 2 mg/ml. Me moria 900 mg + 05 Use Glass l Dextrose 5% 13:01: Bottle or H ermann in Water IV 00 Non PVC 482 mL Bag "Use 0.22 micron in-line filter" MEDICATION WASTE Product Size: 900 mg Product Wasted: ___ mg Eliquis No Notes: Memoria 03-12 Same as: l 02:00: Eliquis Famotidine No Notes: Memor ia 20 MG Oral 9-05 (Same as: l Tablet 02:00: Pepcid) Eliquis No Notes: Memoria 9-05 Same as: l 02:00: Eliquis Famotidine No Notes: Memor ia 20 MG Oral 9-05 (Same as: l Tablet 02:00: Pepcid) Kayexalate No Notes: Memor ia 9-04 (sodium l 21:11: polystyren Chris 00 e sulfonate 15 gm/60 ml JAS) Shake well before use. (Same as: Kayexalate , SPS) Kayexalate No Notes: Memor ia 9-04 (sodium l 21:11: polystyren Chris 00 e sulfonate 15 gm/60 ml JAS) Shake well before use. (Same as: Kayexalate , SPS) Bumex No Notes: Memoria 9-04 (Same As: l 21:10: Bumex) Bumex No Notes: Memoria 9-04 (Same As: l 21:10: Bumex) 00 24 HR No Notes: Memoria Metoprolol 9-04 (Same as: l Tartrate 25 17:00: Toprol XL) [place] MG Extended 00 Do Not Release Crush Tablet [Toprol] 24 HR No Notes: Memoria Metoprolol 9-04 (Same as: l Tartrate 25 17:00: Toprol XL) [place] MG Extended Do Not Release Crush Tablet [Toprol] Prednisone No Notes: Memor ia 9-04 Take with l 14:00: food. Aspirin No Notes: Do Memor ia 9-04 not crush l 14:00: or chew. (Same As: Ecotrin) Prednisone No Notes: Memor ia 9-04 Take with l 14:00: food. Aspirin No Notes: Do Memor ia 9-04 not crush l 14:00: or chew. (Same As: Ecotrin) Insulin No Notes: Memoria Lispro 03-11 (Same as: l 13:58: Humalog) [place] 00 Roll in palms of hands gently; Do not shake vigorously . WASTE: F/P - Black; E - Municipal Trash Bin Stable for 28 days at room temperatur e. Expires in days from ____Date Insulin No Notes: Memoria Lispro 03-11 (Same as: l 13:58: Humalog) [place] 00 Roll in palms of hands gently; Do not shake vigorously . WASTE: F/P - Black; E - Municipal Trash Bin Stable for 28 days at room temperatur e. Expires in days from ____Date Lipitor No Notes: Memoria 03-11 (Same as: l 02:00: Lipitor) Insulin No 10 unit, Memori a Glargine 03-11 Route: l 100 UNT/ML 02:00: SUB-Q, Kathia nn Injectable 00 Drug form: Solution SOLN, Bedtime, Dosing Weight 85, kg, Start date: 03/10/19 21:00:00 CDT, Duration: 30 day, Stop date: 04/08/19 21:00:00 CDT Lipitor No Notes: Memoria 03-11 (Same as: l 02:00: Lipitor) Insulin No 10 unit, Memori a Glargine 03-11 Route: l 100 UNT/ML 02:00: SUB-Q, Kathia nn Injectable 00 Drug form: Solution SOLN, Bedtime, Dosing Weight 85, kg, Start date: 03/10/19 21:00:00 CDT, Duration: 30 day, Stop date: 04/08/19 21:00:00 CDT Tessalon No Notes: Cami Perles 03-11 (Same As: l 01:05: Tessalon Perles) "Do Not Crush" Melatonin No Notes: Memori a 03-11 (Same as: l 01:05: Melatonin) [place] 00 Tessalon No Notes: Memoria Perles 03-11 (Same As: l 01:05: Tessalon Perles) "Do Not Crush" Melatonin No Notes: Brenori a 03-11 (Same as: l 01:05: Melatonin) Insulin No Notes: Memoria Glargine 03-10 (Same as: l 100 UNT/ML 17:55: Lantus) Do H ermann Injectable 00 not hold Solution insulin without contacting prescriber WASTE: F/P - Black; E - Municipal Trash Bin "single patient use only" Stable for 28 days at room temperatur e Expires in days from ____Date Insulin No Notes: Memoria Glargine 03-10 (Same as: l 100 UNT/ML 17:55: Lantus) Do H ermann Injectable 00 not hold Solution insulin without contacting prescriber WASTE: F/P - Black; E - Municipal Trash Bin "single patient use only" Stable for 28 days at room temperatur e Expires in days from ____Date Dextrose No 12.5 gm, Memor ia 50% Syringe 03-10 25 mL, l 17:29: Route: IVP, Drug Form: INJ, Dosing Weight 85, kg, PRN, PRN Blood Glucose Results, Start date: 03/10/19 12:29:00 CDT, Duration: 30 day, Stop date: 04/09/19 12:28:00 CDT, 0 Glucagon No 1 mg, Memoria 03-10 Route: IM, l 17:29: Drug form: PDR/INJ, PRN, Dosing Weight 85, kg, PRN Blood Glucose Results, Start date: 03/10/19 12:29:00 CDT, Duration: 30 day, Stop date: 04/09/19 12:28:00 CDT, 0 Insulin 2018-0 No Notes: Memoria Lispro 03-10 (Same as: l 17:29: Humalog) Roll in palms of hands gently; Do not shake vigorously . WASTE: F/P - Black; E - Municipal Trash Bin Stable for 28 days at room temperatur e. Expires in days from ____Date Dextrose 2018- No 12.5 gm, Memor ia 50% Syringe 03-10 25 mL, l 17:29: Route: [place] 00 IVP, Drug Form: INJ, Dosing Weight 85, kg, PRN, PRN Blood Glucose Results, Start date: 03/10/19 12:29:00 CDT, Duration: 30 day, Stop date: 04/09/19 12:28:00 CDT, 0 Glucagon 2019 No 1 mg, Memoria 03-10 Route: IM, l 17:29: Drug form: [place] 00 PDR/INJ, PRN, Dosing Weight 85, kg, PRN Blood Glucose Results, Start date: 03/10/19 12:29:00 CDT, Duration: 30 day, Stop date: 04/09/19 12:28:00 CDT, 0 Insulin No Notes: Memoria Lispro 03-10 (Same as: l 17:29: Humalog) Roll in palms of hands gently; Do not shake vigorously . WASTE: F/P - Black; E - Municipal Trash Bin Stable for 28 days at room temperatur e. Expires in days from ____Date Albuterol No Notes: Memori a 0.833 MG/ML 03-10 (Same as: l / 17:00: Duoneb) [place] Ipratropium 00 [place] 0.167 MG/ML Inhalant Solution Albuterol No Notes: Memori a 0.833 MG/ML 03-10 (Same as: l / 17:00: Duoneb) Chris Ipratropium 00 [place] 0.167 MG/ML Inhalant Solution metoprolol No 75 mg, PO, M emoria extended 03-10 Daily, 0 l release 15:43: Refill(s) Kathia nn pantoprazol Yes 40 mg = 1 M emoria e 40 mg 03-10 tab, PO, l oral 15:43: Daily, 0 [place] enteric 00 Refill(s) coated tablet sacubitril Yes 1 tab, PO, M emoria 24 MG / 03-10 BID, 0 l valsartan 15:43: Refill(s) Her cotton 26 MG Oral 00 Tablet [Entresto] Furosemide No Daily, 0 Mem oria 03-10 Refill(s) l 15:43: [place] 00 Furosemide No 40 mg = 1 Me moria 40 MG Oral 03-10 tab, PO, l Tablet 15:43: Daily, 0 Chris 00 Refill(s) Albuterol Yes 3 mL, NEB, Me moria 0.833 MG/ML 03-10 TID, PRN l / 15:43: as needed [place] Ipratropium 00 for [place] shortness 0.167 MG/ML of breath Inhalant or Solution wheezing, 0 Refill(s) Xopenex Yes NEB, TID, Memor ia 03-10 PRN as l 15:43: needed for [place] 00 wheezing, 0 Refill(s) apixaban 5 Yes 5 mg, PO, Me moria MG Oral 03-10 Q12H, 0 l Tablet 15:43: Refill(s) Tre n [Eliquis] 00 benzonatate Yes 100 mg = 1 Memoria 100 MG Oral 03-10 cap, PO, l Capsule 15:43: TID, PRN Tre n [Tessalon 00 as needed Perles] for cough, 0 Refill(s) atorvastati Yes 40 mg = 1 M emoria n 40 MG 03-10 tab, PO, l Oral Tablet 15:43: Daily, 0 He rmann [Lipitor] 00 Refill(s) 12 HR Yes 600 mg = 1 Memori a Guaifenesin 03-10 tab, PO, l 600 MG 15:43: Q12H, 0 Chris Extended 00 Refill(s) Release Tablet [Mucinex] Magnesium Yes 400 mg, Memor ia Oxide 03-10 PO, Daily, l 15:43: 0 Chris 00 Refill(s) Vitamin C Yes 500 mg = 1 Me moria 500 mg oral 03-10 tab, PO, l tablet 15:43: BID, 0 Chris 00 Refill(s) multivitami Yes CHEW, Memor ia n with 03-10 Daily, 0 l minerals 15:43: Refill(s) Herm bud 00 Docusate Yes 100 mg = 1 Mem oria Sodium 100 03-10 cap, PO, l MG Oral 15:43: BID, PRN Tre n Capsule 00 as needed for constipati on, 0 Refill(s) metoprolol No 75 mg, PO, M emoria extended 03-10 Daily, 0 l release 15:43: Refill(s) Kathia nn 00 pantoprazol Yes 40 mg = 1 M emoria e 40 mg 03-10 tab, PO, l oral 15:43: Daily, 0 Chris enteric 00 Refill(s) coated tablet sacubitril Yes 1 tab, PO, M emoria 24 MG / 03-10 BID, 0 l valsartan 15:43: Refill(s) Her cotton 26 MG Oral 00 Tablet [Entresto] Furosemide No Daily, 0 Mem oria 03-10 Refill(s) l 15:43: [place] 00 Furosemide No 40 mg = 1 Me moria 40 MG Oral 03-10 tab, PO, l Tablet 15:43: Daily, 0 Chris 00 Refill(s) Albuterol Yes 3 mL, NEB, Me moria 0.833 MG/ML 03-10 TID, PRN l / 15:43: as needed [place] Ipratropium 00 for [place] shortness 0.167 MG/ML of breath Inhalant or Solution wheezing, 0 Refill(s) Xopenex Yes NEB, TID, Memor ia 03-10 PRN as l 15:43: needed for [place] 00 wheezing, 0 Refill(s) apixaban 5 Yes 5 mg, PO, Me moria MG Oral 03-10 Q12H, 0 l Tablet 15:43: Refill(s) Tre n [Eliquis] 00 benzonatate Yes 100 mg = 1 Memoria 100 MG Oral 03-10 cap, PO, l Capsule 15:43: TID, PRN Tre n [Tessalon 00 as needed Perles] for cough, 0 Refill(s) atorvastati Yes 40 mg = 1 M emoria n 40 MG 03-10 tab, PO, l Oral Tablet 15:43: Daily, 0 He rmann [Lipitor] 00 Refill(s) 12 HR Yes 600 mg = 1 Memori a Guaifenesin -03 tab, PO, l 600 MG 15:43: Q12H, 0 Chris Extended 00 Refill(s) Release Tablet [Mucinex] Magnesium Yes 400 mg, Memor ia Oxide 03-10 PO, Daily, l 15:43: 0 [place] 00 Refill(s) Vitamin C Yes 500 mg = 1 Me moria 500 mg oral 03-10 tab, PO, l tablet 15:43: BID, 0 [place] 00 Refill(s) multivitami Yes CHEW, Memor ia n with 03-10 Daily, 0 l minerals 15:43: Refill(s) Herm bud 00 Docusate Yes 100 mg = 1 Mem oria Sodium 100 03-10 cap, PO, l MG Oral 15:43: BID, PRN Tre n Capsule 00 as needed for constipati on, 0 Refill(s) Budesonide No Notes: Memor ia -03 (Same As: l 14:52: Pulmicort) [place] 00 Budesonide No Notes: Memor ia -03 (Same As: l 14:52: Pulmicort) Chris 00 Saline No Notes: Memoria Flush 0.9% 03-10 (Same as: l 14:00: BD Chris 00 Posiflush) Famotidine No Notes: Memor ia -03 (Same as: l 14:00: Pepcid) [place] 00 Can be dilute in 5-10cc NS IVP: Slow IV push over at least 2 minutes. Saline No Notes: Memoria Flush 0.9% -03 (Same as: l 14:00: BD [place] 00 Posiflush) Famotidine No Notes: Memor ia 9-03 (Same as: l 14:00: Pepcid) [place] 00 Can be dilute in 5-10cc NS IVP: Slow IV push over at least 2 minutes. heparin No 500 mL, Memoria additive 03-10 Rate: 23.8 l 25,000 unit 13:27: ml/hr, Herm bud [14 00 Infuse unit/kg/hr] over: 21 + Premix hr, Route: Diluent IV, Dosing Dextrose 5% Weight 85 500 mL kg, Total Volume: 500 mL, Start date: 03/10/19 8:27:00 CDT, Duration: 30 day, Stop date: 04/09/19 8:26:00 CDT, 2.07, m2, 0 Diltiazem 0 No Notes: Memori a 03-10 (Same as: l 13:27: Cardizem) [place] 00 heparin No 500 mL, Memoria additive 03-10 Rate: 23.8 l 25,000 unit 13:27: ml/hr, Herm bud [14 00 Infuse unit/kg/hr] over: 21 + Premix hr, Route: Diluent IV, Dosing Dextrose 5% Weight 85 500 mL kg, Total Volume: 500 mL, Start date: 03/10/19 8:27:00 CDT, Duration: 30 day, Stop date: 04/09/19 8:26:00 CDT, 2.07, m2, 0 Diltiazem No Notes: Memori a 03-10 (Same as: l 13:27: Cardizem) Chris 00 Lovenox No Notes: Brenoria 03-10 Nurse to l 12:00: ensure [place] documentat ion of patient education per anticoagul ation policy. (Same as: Lovenox) Azithromyci No Notes: Boby moriah n 03-10 Take 1 l 12:00: hour [place] 00 before or 2 hours after meals. (Same As: Zithromax) Albuterol No Notes: Memori a 0.833 MG/ML 03-10 (Same as: l / 12:00: Duoneb) Chris Ipratropium 00 [place] 0.167 MG/ML Inhalant Solution Lovenox No Notes: Memoria 03-10 Nurse to l 12:00: ensure [place] 00 documentat ion of patient education per anticoagul ation policy. (Same as: Lovenox) Azithromyci No Notes: Boby moriah n 03-10 Take 1 l 12:00: hour [place] 00 before or 2 hours after meals. (Same As: Zithromax) Albuterol No Notes: Memori a 0.833 MG/ML 03-10 (Same as: l / 12:00: Duoneb) Chris Ipratropium 00 [place] 0.167 MG/ML Inhalant Solution methylPREDN No Notes: Boby moriah ISolone 03-10 (Same l SODium 11:57: as:Solu-ME Kathia nn SUCCinate 00 DROL, A-Methapre d) methylPREDN No Notes: Boby moriah ISolone 03-10 (Same l SODium 11:57: as:Solu-ME Kathia nn SUCCinate 00 DROL, A-Methapre d) Lasix No Notes: Memoria 03-10 (Same as: l 11:44: Lasix) [place] 00 MEDICATION WASTE Product Size: 40 mg Product Wasted: ___ mg Xopenex No 0.63 mg, Memori a 03-10 Route: l 11:44: INHALATION [place] 00 , ONCE, Dosing Weight 85, kg, Start date: 03/10/19 6:44:00 CDT, Stop date: 03/10/19 6:44:00 CDT Ipratropium No Notes: SEE Memoria [place] 0.2 - RT l MG/ML 11:44: DOCUMENTAT Tre n Inhalant 00 ION (Same Solution as:Atroven t) Lasix No Notes: Memoria 03-10 (Same as: l 11:44: Lasix) [place] MEDICATION WASTE Product Size: 40 mg Product Wasted: ___ mg Xopenex No 0.63 mg, Memori a 03-10 Route: l 11:44: INHALATION Chris 00 , ONCE, Dosing Weight 85, kg, Start date: 03/10/19 6:44:00 CDT, Stop date: 03/10/19 6:44:00 CDT Ipratropium 0 No Notes: SEE Memoria [place] 0.2 9-03 RT l MG/ML 11:44: DOCUMENTAT Tre n Inhalant 00 ION (Same Solution as:Atroven t) Albuterol No Notes: Memori a 0.833 MG/ML 03-10 (Same as: l 11:37: Duoneb) Chris Ipratropium 00 [place] 0.167 MG/ML Inhalant Solution [DuoNeb] Albuterol No Notes: Memori a 0.833 MG/ML 03-10 (Same as: l / 11:37: Duoneb) Chris Ipratropium 00 [place] 0.167 MG/ML Inhalant Solution [DuoNeb] Potassium No Notes: Memori a Chloride 03-10 (Same as: l 08:37: K-Dur 20) [place] "Do Not Crush" Give with food and full glass of water For patients unable to swallow tablet, dissolve in one half glass of water. Allow about 2 minutes for the tablets to disintegra te. Stir before giving to prepare slurry and administer . Please exclude Patient s with feeding tube less than 14 [place] (Dobhoff, J-tube etc) and pediatric and patients. Potassium No Notes: Memori a Chloride 03-10 (Same as: l 08:37: K-Dur 20) [place] 00 "Do Not Crush" Give with food and full glass of water For patients unable to swallow tablet, dissolve in one half glass of water. Allow about 2 minutes for the tablets to disintegra te. Stir before giving to prepare slurry and administer . Please exclude Patient s with feeding tube less than 14 [place] (Dobhoff, J-tube etc) and pediatric and patients. AMIODarone No 2 mg/ml. Me moria 900 mg in 03-10 Use Glass l D5W 500 ml 08:19: Bottle or He rmann IV 900 mg + 00 Non PVC Dextrose 5% Bag "Use in Water IV 0.22 482 mL micron in-line filter" MEDICATION WASTE Product Size: 900 mg Product Wasted: ___ mg AMIODarone No 2 mg/ml. Me moria 900 mg in 03-10 Use Glass l D5W 500 ml 08:19: Bottle or He rmann IV 900 mg + 00 Non PVC Dextrose 5% Bag "Use in Water IV 0.22 482 mL micron in-line filter" MEDICATION WASTE Product Size: 900 mg Product Wasted: ___ mg Nystatin No Notes: Memoria 100 UNT/MG 03-10 (Same l Topical 08:16: as:Mycosta Herm bud Powder 00 tin, Nilstat) For external use only. Acetaminoph No Notes: Do M emoria en 03-10 not exceed l 08:16: 4 gm/day. [place] 00 (Same as: Tylenol) Saline No Notes: Memoria Flush 0.9% 03-10 (Same as: l 08:16: BD Chris 00 Posiflush) Nystatin No Notes: Memoria 100 UNT/MG 03-10 (Same l Topical 08:16: as:Mycosta Herm bud Powder 00 tin, Nilstat) For external use only. Acetaminoph No Notes: Do M emoria en 03-10 not exceed l 08:16: 4 gm/day. [place] 00 (Same as: Tylenol) Saline No Notes: Memoria Flush 0.9% 03-10 (Same as: l 08:16: BD Chris 00 Posiflush) Melatonin No Notes: Memori a - (Same as: l 08:10: Melatonin) [place] 00 Melatonin No Notes: Memori a - (Same as: l 08:10: Melatonin) [place] 00 melatonin 3 Yes 9 mg, PO, M emoria mg oral 03-10 Bedtime, l tablet 08:07: PRN for Chris 00 insomnia, # 60 tab, 0 Refill(s) melatonin 3 Yes 9 mg, PO, M emoria mg oral 03-10 Bedtime, l tablet 08:07: PRN for [place] 00 insomnia, # 60 tab, 0 Refill(s) Saline No Notes: Memoria Flush 0.9% - (Same as: l 08:00: BD Chris 00 Posiflush) Saline No Notes: Memoria Flush 0.9% - (Same as: l 08:00: BD Chris 00 Posiflush) Acetaminoph Yes 1 tab, PO, Memoria en 325 MG / 03-10 Q4H, PRN l Hydrocodone 07:48: for pain, H ermann Bitartrate 00 # 24 tab, 10 MG Oral 0 Tablet Refill(s) [Cataumet 10/325] Metformin 2018- No 500 mg = 1 Me moria hydrochlori 9-03 tab, PO, l de 500 MG 07:48: Before Tre n Oral Tablet 00 Dinner, # 30 tab, 0 Refill(s) Amlodipine No 10 mg = 1 Me moria 10 MG Oral 9-03 tab, PO, l Tablet 07:48: Daily, # Chris [Norvasc] 00 30 tab, 0 Refill(s) theophyllin Yes 300 mg = 1 Memoria e 300 mg 9-03 tab, PO, l oral 07:48: Q12H, # Chris tablet, 00 180 tab, 0 extended Refill(s) release tamsulosin Yes 0.4 mg = 1 M emoria 0.4 mg oral 03 cap, PO, l capsule 07:48: Daily, # Tre n 00 90 cap, 0 Refill(s) Insulin Yes 10 unit, Memori a Glargine 03-10 SUB-Q, l 100 UNT/ML 07:48: Bedtime, # H marko Injectable 00 3 mL, 3 Solution Refill(s) Breo Yes 1 puff, Memoria Ellipta 200 03 INHALATION l mcg-25 07:48: , Daily, 0 Kathia nn mcg/inh 00 Refill(s) inhalation powder valsartan No 40 mg = 1 Mem oria 40 MG Oral -03 tab, PO, l Tablet 07:48: BID, # 180 Kathia nn [Diovan] 00 tab, 0 Refill(s) Tramadol Yes 50 mg, PO, Mem oria 03-10 ONCE, PRN l 07:48: Insomnia, Chris 00 # 20 tab, 0 Refill(s) Incruse Yes INHALATION Boby moriah Ellipta 03 , Q24H, 0 l 07:48: Refill(s) [place] 00 Acetaminoph Yes 1 tab, PO, Memoria en 325 MG / 03 Q4H, PRN l Hydrocodone 07:48: for pain, H ermann Bitartrate 00 # 24 tab, 10 MG Oral 0 Tablet Refill(s) [Cataumet 10/325] Metformin No 500 mg = 1 Me moria hydrochlori 9-03 tab, PO, l de 500 MG 07:48: Before Tre n Oral Tablet 00 Dinner, # 30 tab, 0 Refill(s) Amlodipine No 10 mg = 1 Me moria 10 MG Oral -03 tab, PO, l Tablet 07:48: Daily, # Chris [Norvasc] 00 30 tab, 0 Refill(s) theophyllin Yes 300 mg = 1 Memoria e 300 mg -03 tab, PO, l oral 07:48: Q12H, # Chris tablet, 00 180 tab, 0 extended Refill(s) release tamsulosin Yes 0.4 mg = 1 M emoria 0.4 mg oral 03-10 cap, PO, l capsule 07:48: Daily, # Tre n 00 90 cap, 0 Refill(s) Insulin Yes 10 unit, Memori a Glargine 03-10 SUB-Q, l 100 UNT/ML 07:48: Bedtime, # H ermann Injectable 00 3 mL, 3 Solution Refill(s) Breo Yes 1 puff, Memoria Ellipta 200 903 INHALATION l mcg-25 07:48: , Daily, 0 Kathia nn mcg/inh 00 Refill(s) inhalation powder valsartan No 40 mg = 1 Mem oria 40 MG Oral 03 tab, PO, l Tablet 07:48: BID, # 180 Kathia nn [Diovan] 00 tab, 0 Refill(s) Tramadol Yes 50 mg, PO, Mem oria 03 ONCE, PRN l 07:48: Insomnia, Chris 00 # 20 tab, 0 Refill(s) Incruse Yes INHALATION Boby moriah Ellipta 03-10 , Q24H, 0 l 07:48: Refill(s) [place] 00 clopidogrel 0 2019- No 75mg QD Take [address] [facility] (PLAVIX) 75 6-28 -18 tablet (75 L ukes - mg tablet 00:00: 00:00 mg total) Me dical 00 :00 by mouth Center daily. aspirin 81 2019- No 81mg QD Take [address] [facility] MG chewable 6-27 06-26 tablet (81 L ukes - tablet 00:00: 23:59 mg total) Medic al 00 :00 by mouth Center daily. magnesium 2019- No 400mg QD Take [address] [facility] oxide 01-01 tablet [facility] - (MAG-OX) 00:00: 23:59 (400 mg Medic al 400 mg 00 :00 total) by Center (241.3 mg mouth magnesium) daily. tablet ipratropium 2019- No 3mL Take [address] [facility] -albuterol 01-01 by [facility] - (DUO-NEB) 00:00: 23:59 nebulizati M edical 0.5 mg-3 00 :00 on every 4 Cente r mg(2.5 mg (four) base)/3 mL hours as nebulizer needed for solution Wheezing or Shortness of Breath for up to 360 days. amiodarone 2018- No 200mg QD Take [address] [facility] (PACERONE) 01-01 tablet [facility] - 200 MG 00:00: 00:00 (200 mg Medical tablet 00 :00 total) by Center mouth daily. losartan 2018- No 12.5mg QD Take 0.[address] (COZAAR) 25 01-01- tablets Luke [facility] - MG tablet 00:00: 00:00 (12.5 mg Med ical 00 :00 total) by Center mouth daily. fluticasone 2019- No 2{puff} Q.5D Inhale [address] [facility] propionate 01-01-18 puffs by Dash s - (FLOVENT 00:00: 00:00 mouth via Med ical DISKUS) 50 00 :00 inhaler 2 Cent er mcg/actuati (two) on diskus times inhaler daily. albuterol-i 2019- No 2{puff} Inhale [address] [facility] pratropium 01-01-18 puffs by Luhayes s - (COMBIVENT 00:00: 00:00 mouth via M edical RESPIMAT) 00 :00 inhaler Center 20-100 every 4 mcg/actuati (four) on Mist hours as inhaler needed for Wheezing. HYDROcodone 2019- No 1{tbl} Take [address] -acetaminop 01-01 tablet by Radha Lin hen (NORCO 00:00: 00:00 mouth Medic al 5-325) 00 :00 every 6 Center 5-325 mg (six) per tablet hours as needed. Max Daily Amount: 4 tablets atorvastati Yes 40mg QD Take [address] [facility] n (LIPITOR) - tablet (40 Radha kes - 40 MG 00:00: mg total) Medical tablet 00 by mouth Center daily. insulin Yes 20U QD Inject 20 [facility] glargine 6-26 Units [facility] - (LANTUS 00:00: subcutaneo Medi bassem SOLOSTAR 00 usly daily Cente r U-100 Hold off INSULIN) on 100 unit/mL restarting (3 mL) InPn for now. Check your sugars at home. If sugars persistent ly high, resume.. metoprolol 2020- No 12.5mg Q.5D Take 0.[address] [facility] (LOPRESSOR) 12-31-25 tablets Luke s - 25 MG 00:00: 23:59 (12.5 mg Medical tablet 00 :00 total) by Center mouth 2 (two) times daily. bumetanide 2020- No 1mg Take [address] [facility] (BUMEX) 1 12-31-25 tablet (1 Luke s - MG tablet 00:00: 23:59 mg total) Me dical 00 :00 by mouth 2 Center (two) times daily. guaiFENesin 2019- No 600mg Q.5D Take [address] (MUCINEX) 12-31 tablet [facility] - 600 mg 12 00:00: 00:00 (600 mg Medi bassem hr tablet 00 :00 total) by Cente r mouth 2 (two) times daily. zinc 2019- No Apply to [facility] oxide-yoana 12-31 affected Edda es - latum 00:00: 00:00 area twice Medic al (CRITIC-AID 00 :00 daily Center ) 20-51 % until Pste buttock topical wounds paste healed. theophyllin Yes 300mg Q.5D Take [address] (THEODUR) 6-04 mg by [facility] - 300 MG 12 08:39: mouth 2 Medic al hr tablet 19 (two) Center times daily. theophyllin 2019-0 Yes 600mg QD Take 600 [place] (MESFIN-24) 5-28 mg by Methodi 300 MG 24 15:36: mouth st hr capsule 17 daily. metFORMIN 2019-0 Yes 500mg Q.5D Take [address] (GLUCOPHAGE 5-28 mg by [facility] ) 500 mg 15:36: mouth 2 st tablet 17 (two) times a day with meals. guaiFENesin 2019-0 Yes 600mg Q.5D Take 600 [place] (MUCINEX) 5-28 mg by [facility] 600 mg 15:36: mouth 2 st tablet 17 (two) extended times a release day. 12hr amLODIPine 2019-0 Yes 10mg QD Take 10 mg [place] (NORVASC) 5-28 by mouth Method i 10 mg 15:36: daily. st tablet 17 traMADol 2019-0 Yes 150mg QD Take 150 [place] (ULTRAM) 50 5-28 mg by [facility] mg tablet 15:36: mouth st 17 nightly. tamsulosin 2019-0 Yes .4mg QD Take 0.4 [facility] (FLOMAX) 5-28 mg by Method[facility] 0.4 mg 15:36: mouth st capsule 17 daily with dinner. aspirin 2019-0 Yes Take by Jose Miguel (ASPIR-81 5-28 mouth. [facility] ORAL) 15:36: st 17 fluticasone 2019-0 Yes QD Inhale 1 [place] furoate-leandro 5-28 inhalation Me thodi anterol 15:36: s once st (BREO 17 daily. ELLIPTA) 200-25 mcg/dose blister with device powder for inhalation umeclidiniu 2019-0 Yes Inhale. Venkat ston m (INCRUSE 5-28 Uses in Method i ELLIPTA) 15:36: the st 62.5 17 afternoon mcg/actuati on blister with device insulin 2019-0 Yes 20U QD Inject 20 [place] GLARGINE 5-28 Units [facility] (LANTUS) 15:36: under the st 100 unit/mL 17 skin injection nightly. (vial) albuterol 2019-0 Yes 2{puff} Q6H Inhale 2 [place] (PROAIR 5-28 puffs [facility]i HFA,PROVENT 15:36: every 6 st [place] 17 (six) HFA,VENTOLI hours as N HFA) 90 needed for mcg/actuati wheezing. on inhaler fexofenadin Yes 180mg Q24H Take 180 [place] (MASSIMO) 5-28 mg by Methodi 180 MG 15:36: mouth st tablet 17 daily as needed. traMADol Yes 50mg Take 50 [address] [facility] St (ULTRAM) 50 3-24 by mouth Luke s - mg tablet 00:00: as needed. [address] Vital Signs Vital Name Observation Time Observation Value Comments Source Respiratory rate 2019-12-04 10:33:00 20 /min [facility] Oxygen saturation in 2019-12-04 10:33:00 93 /min [facility] Arterial blood by Medical Ce nter Pulse oximetry Systolic blood 2019-12-04 10:18:00 131 mm[Hg] [facility] Diastolic blood 2019-12-04 10:18:00 48 mm[Hg] [facility] Heart rate 2019-12-04 10:18:00 83 /min [facility] Body temperature 2019-12-04 10:18:00 36.78 [place] [facility] Body height 2019-12-04 07:20:00 180.3 cm [facility] Body weight Measured 2019-12-04 07:20:00 79.243 kg [facility] BMI 2019-12-04 07:20:00 24.37 kg/m2 [facility] Systolic (mm Hg) 2019-03-13 17:00:00 Boby rial Chris Diastolic (mm Hg) 2019-03-13 17:00:00 Mem orial Chris Respitory Rate 2019-03-13 17:00:00 Memori al Chris Systolic (mm Hg) 2019-03-13 16:00:00 Boby rial Chris Diastolic (mm Hg) 2019-03-13 16:00:00 Mem orial Chris Respitory Rate 2019-03-13 16:00:00 Memori al Chris Systolic (mm Hg) 2019-03-13 15:00:00 Boby rial Chris Diastolic (mm Hg) 2019-03-13 15:00:00 Mem orial Chris Respitory Rate 2019-03-13 15:00:00 Memori al Chris Temperature Oral (F) 2019-03-13 09:00:00 98.2 F [facility] Chris Temperature Oral (F) 2019-03-13 05:00:00 98.1 F [facility] Chris Temperature Oral (F) 2019-03-13 01:00:00 98.3 F [facility] Chris Height 2019-03-12 11:12:00 180.34 cm [facility] Chris Height 2019-03-10 06:35:00 180.34 cm [facility] Chris Weight 2019-03-10 06:35:00 [facility] Chris BMI Calculated 2019-03-10 06:35:00 Memori al [place] Procedures Procedure Date / Time Performing Clinician Source Performed POCT-GLUCOSE METER 2019-12-04 09[facility]52[facility] 2019-12-04 09:08:00 Batsheva [facility] BASIC METABOLIC PANEL (7) 2019-12-04 07:30:00 Ciro Lockett [facility] CBC W/PLT COUNT & AUTO 2019-12-04 07:30:00 Ciro Lockett [facility] CYSTOSCOPY,BLADDER BIOPSY 2019-12-04 07:30:00 Batsheva [facility] POCT-GLUCOSE METER 2019-12-04 07:26:00 Batsheva [facility] POCT-GLUCOSE METER 2019-06-16 14:03:00 Cecilio Gasca [facility] BASIC METABOLIC PANEL (7) 2019-06-16 11:08:00 Cecilio Gasca [facility] PROTHROMBIN TIME/INR 2019-06-16 11:08:00 Cecilio Gasca [facility] CBC W/PLT COUNT & AUTO 2019-06-16 11:08:00 Cecilio Gasca [facility] ECG 12-LEAD 2019-06-16 11:05:30 Unknown, Hl7 Doctor [facility] REPORT OF PROCEDURE - 2019-06-08 13:00:08 Provider, Default [facility] - ENDOSCOPY SCAN [facility] CARDIAC CATH REPORT - SCAN 2019-03-31 07:51:28 Provider, Default [facility] RHYTHM STRIP - SCAN 2019-03-31 07:51:18 Provider, Default [facility] ECHOCARDIOGRAM REPORT - 2019-03-27 21:20:45 Provider, Default [facility] POCT-GLUCOSE METER 2019-03-27 13:20:00 Patti Grey [facility] ECG 12-LEAD 2019-03-27 12:54:08 Unknown, Hl7 Doctor [facility] BASIC METABOLIC PANEL (7) 2019-03-27 04:23:00 Patti Daniel [facility] CBC W/PLT COUNT & AUTO 2019-03-27 04:23:00 Patti Grey [facility] POCT-GLUCOSE METER 2019-03-26 22:30:[address] [facility] POCT-GLUCOSE METER 2019-03-26 16:02:[address] [facility] ABLATION,ATRIAL FLUTTER 2019-03-26 11:54:00 Cecilio Gasca [facility] TRANSESOPHAGEAL ECHO 2019-03-26 09:52:59 Mohit Bliss [facility] POCT-GLUCOSE METER 2019-03-26 07:20:[address] [facility] HEMOGLOBIN A1C 2019-03-26 04:09:00 [facility] BASIC METABOLIC PANEL (7) 2019-03-26 04:09:00 Patti Daniel [facility] CBC W/PLT COUNT & AUTO 2019-03-26 04:09:00 [facility] POCT-GLUCOSE METER 2019-03-25 21:11:[address] [facility] COLOR-FLOW MAPPING 2019-03-25 17:10:37 Mohit Bliss [facility] CONT WAVE PULSED DOPPLER 2019-03-25 17:10:37 Mohit Bliss [facility] POCT-GLUCOSE METER 2019-03-25 16:06:00 PattiGrey [facility] ED ECG INTERPRETATION 2019-03-25 13:57:15 [facility] XR CHEST 1 VIEW 2019-03-25 11:59:00 Roosevelt Faulkner [facility] PORTABLE/BEDSIDE [facility] B-TYPE NATRIURETIC FACTOR 2019-03-25 11:39:00 Roosevelt Faulkner [facility] (BNP) [facility] CBC W/PLT COUNT & AUTO 2019-03-25 11:39:00 [facility] BASIC METABOLIC PANEL (7) 2019-03-25 11:38:00 [facility]isa [facility] TROPONIN I 2019-03-25 11:38:00 Roosevelt Faulkner [facility] ECG 12-LEAD 2019-03-25 11:23:26 Eloisa Roosevelt [facility] Plan of Care Planned Activity Planned Date Details Comments Source Future Scheduled 2020-04-07 INFLUENZA VACCINE [place] [facility] 00:00:00 [code = INFLUENZA VACCINE] Future Scheduled 2011 65+ PNEUMOCOCCAL [place] [facility] 00:00:00 VACCINE (1 of 2 - PCV13) [code = 65+ PNEUMOCOCCAL VACCINE (1 of 2 - PCV13)] Future Scheduled 1996 COLONOSCOPY SCREENING [place] [facility] 00:00:00 [code = COLONOSCOPY SCREENING] Future Scheduled 1996 SHINGLES VACCINES (#1) [place] [facility] 00:00:00 [code = SHINGLES VACCINES (#1)] Future Scheduled 1956 DIABETIC FOOT EXAM [place] [facility] 00:00:00 [code = DIABETIC FOOT EXAM] Future Scheduled 1946 DIABETIC RETINAL EYE [facility] [facility] 00:00:00 EXAM [code = DIABETIC RETINAL EYE EXAM] Encounters Start End Encounter Admission Attending Care Care Encounter Source Date/Time Date/Time Type Type Clinicians Facility Department ID 2019-03-10 Inpatient U [facility] [id number] [facility] L 01:23:00 2019-09-15 2019-09-15 Office SUSANNAH Bowie [id number] 13:25:20 13:40:20 Visit Jose Manuel Stallworth AMBULATOR [id number] Y [id number] 2019-03-10 2019-03-13 Outpatient Norman [facility] [id number] 01:23:00 13:25:00 Bishop Elena 2019-03-10 2019-03-13 Outpatient Norman [facility] [id number] 01:23:00 13:25:00 Bishop Elena Results Test Description Test Time Test Comments Results Result [facility] e Comments SURG 2020-02-11 13:35:00 RUN DATE: 02/11/20 [facility] PAGE 1 RUN TIME: 1335 Specimen Inquiry RUN USER: INTERFACE PATIENT : HEATHER MOORE LOC: SARA U #: [id number] AGE/SX: 74/M ROOM: RE02/05/20REG DR: Chandra Boone MD : 47 BED: DIS: STATUS: DEP [facility] TLOC: SPEC #: [id number] RECD: 02/05/20 STATUS: NEIL BRAGA #: [id number] RAMON: 02/05/[address]: Chandra Boone MD ENTERED: 02/05/20 SP TYPE: SURG OTHR DR: Kevin Arana MD ORDERED: SURG PATH LVL 4 COPIES TO: Kevin Arana MD [address] [place], [place] [id number] Chandra Boone MD [address] [place] [address] HISTOLOGY: TISSUE ID BLK PCS DENISE LEV PROCEDURE DISPOSITION ____ ___ ___ ___ ESOPHAGUS, NOS A 1 2 PROCEDURES: SURG PATH LVL 4 (02/05/20) TISSUES: A. ESOPHAGUS, NOS - ULCERATIVE ESOPHAGITIS BIOPSY CLINICAL HISTORY DYSPHAGIA - R13.10 CPT CODES CPT CODE(S): 96286 , , , , , , FINAL DIAGNOSIS Esophagus, biopsy: INVASIVE ADENOCARCINOMA GROSS DESCRIPTION Esophagus biopsy. Received in formalin are five luna tissue fragments, 0.2 - 0.4 cm, all as A. lt/nr Grossing performed at [facility] Pathology, [address], [address], [place] [address]. Commercial Food Instructor: César Mcclendon M.D. CONTINUED ON NEXT PAGE RUN DATE: 02/11/20 [facility] - LAB PAGE 2 RUN TIME: 1335 Specimen Inquiry RUN USER: INTERFACE SPEC #: [facility]:[id number] PATIENT: HEATHER MOORE #[id number] (Continued) --- MICROSCOPIC DESCRIPTION Esophagus biopsy. Sections demonstrate squamous mucosa with a reactive appearance. Areas of ulceration are identified. Additionally an atypical cell population is identified underlying the surface. These cells form irregular gland structures. Immunohistochemistry demonstrates these cells are strongly positive for CK 7 and focal positivity for CK 20. Additionally immunohistochemistry for Ki-67 demonstrates increased positivity in the glandular structures. 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 Clinical correlation is necessary to separate the possibility of esophageal primary adenocarcinoma versus gastric adenocarcinoma. The immunohistochemistry techincal and professional component was performed at: [facility] Pathology Lab. See list of stains below: CK 7, CK 20, Ki-67 cpt:88684, [id number] Signed SIGNATURE ON FILE Rachid Schmitt 02/11/20 5325 END OF REPORT GLUCOSE BEDSIDE TESTING 2020-02-05 06:59:00 Test Item Value Reference Range Interpretation Comme nts GLUCOSE BEDSIDE TESTING (test code = GLUBED) 106 mg/dL 70-110 N Tissue [id number] 16:54:00 Test Item Value Reference Range Interpretation Comments Case Report (test code Surgical Pathology = 104) Report Case: [id number] Authorizing Provider: Jose Manuel Bowie MD Collected: 12/04/2019 09:08 AM Ordering Location: [facility] PERI[facility] Received: 12/04/2019 02:57 PM SERVICES Pathologist: Jamil Mcmanus MD Specimens: A) - Bladder Biopsy, left lateral wall biopsy B) - Bladder Biopsy, left anterior lateral wall C) - Bladder Biopsy, posterior wall biopsy D) - Bladder Biopsy, right UO E) - Bladder Biopsy, right lateral wall F) - Bladder Biopsy, Dome G) - Bladder Biopsy, Trigone DIAGNOSIS (test code = [id number]) uZzEwMzNcZnRuYmpcdWMxIH yfglFeZYqhe3JxF8GrJkVpR FxhbnNpXGRlZmxhbmcxMDMz TIU2ptQlQUNoQMxoRWHdLFg qLz0vxYEckWhiAxDsVZYos8 rigtQWgducnUq8n1fiRGWaV k6nHGHumxZiVdVqMCMfDUMs PTZrbCHlV947n4okc0zqwdQ omLJ5QUFoNZJ3XDvqynAykp G3BVqsmPUxGbO9COgnpaCwA UgcuhKpunTrSrx2XBPvZ396 BPW7cDgvk5zaYWA4LIZsMIV oXwAoMj7olKDqX506UHJyFK KKUKUssHk4CKZrphRouuBbp QPMj891G136d8ihZITggyNd pXkWtgzgj7ndD104YSKfmUN iotOtWtDlIXPnhYArmHL5EX GzPU6iepuwIxEsRD0bnvmmL dZtUV9zjxp7AsDvIE3sgwgh NyKvFKhqHXBdhcbiJBTfd5N ddazuIK4aC3Rei7U6eP1weM JlVAMdaXJjZuLvJDGfzc6pv WIaCAvah1CrGWB1yaC2mACv jVIqWAMyNF86Soajj9AuXbk cf3OiG71tzSY1UHfuw1rhAA 0hRtP0yvEgDPcqf2uwnQ3kC aI3EUtiCW0cQU3xVUJpnB7a cmxjXHBnYnJkcmhlYWRccGd picCyOn2odSvfVMO8HNwdS1 txyC5wZiG1XVwhE2ojuG9qK Rk8ZRsgmXY9GJBxtP0rLG5i vknnz2njNgPjQF2uzkqvc3j gPuPkGO5rpkj2f5nsMyVdKO 0uogfii2vlKnQzIMrhILAvj ghcAFVno3AkyipoOOZpl7Yb L7JliAfbM06hqIyhA35iCYC gvQwdiM9vlYfqjR3vVuXxBs MsOXijHZTkGNIijPJpLHU1k DBcczBcbHRycGFyXHFsXHdp JTZ7cIKfdunacRRfjkmmXWi mczIwXGxhbmcxMDMzXGhpY2 vxNrPuKARkpSdfXScdg2RtJ NKrJRIgSnhoctFwOKd1wmKn UFRdYSHKZP4IAiwhSduJGLA FUiwgTEVGVCBMQVRFUkFMIF vUJOglATFKQ2IHCQyiABGyu iAgICAgICAgICAgICAgICAt IJOQY3XCBMmZOSofY7ONS0n TO66TMSzCOIQAJWWgRFYzQV luXGYxXGZzMjBcbGFuZzEwM zNcaGljaFxmMVxkYmNoXGYx ZAgjC3fyXgYqKkIdGJcbMOX gICAgICAgICAgICAgICAgLS IPURTOJSoPAheWFVIMF0GXC UEgSURFTlRJRklFRFxwbGFp blxmMVxmczIwXGxhbmcxMDM wXXfcS1wkUdMkMNZhiLvdOP udo0CuHAAsMQEpYqzxueCzA Di8cfGhGPLegalcRNMuQd5c VVJJTkFSWSBCTEFEREVSLCB xvPzwfG3iLpPfKmAtJIigRE 1wVVWjF7vovTXaUCVcVEQyQ 5fqJlDdtZ9hhZxsSLlczmTx EQzJFcUqCV5NCGQYG5YlbHy fjO6xDhYjAkZpEBarYC6qER CwZ3mkvXHvEKEsTQMgN1zgA mMjoJ7yjVlxBExfBkMaBhDg MFxsdHJjaCAgTEFURVJBTCB XQUxMXHBsYWluXGYxXGZzMj BcbGFuZzEwMzNcaGljaFxmM ErxVwZvJTRnGErrX5grQxIc ZnMyMCAsXHBsYWluXGYxXGZ zMjBcbGFuZzEwMzNcaGljaF dgQPvmMpWuFUKkXJwhY6ktB cPxB6HwXDAbKcRclTNpS3ww QklPUFNZOiBccGFyICAgICA bZLNrTXMkFOWeRG0zCWWnTO luXGYxXGZzMjBcbGFuZzEwM zNcaGljaFxmMVxkYmNoXGYx HRonF4hrEfHxWaNdSJGKRYC JTExBUlkgXHBsYWluXGYxXG ZzMjBcbGFuZzEwMzNcaGlja VhjUQleZxOaPRLbLSyvG3ch HhCfF0RpJYGoVpFghTMcY2u gVVJPVEhFTElBTCBDQVJDSU 4KLORrmKnqxN9yZmYzDpOvP MasGL8nJQKqP0febHIzCSDx MFMvD8xiSoBkaZ2fhFdyHTs mczIwICwgSElHSCBHUkFERS MxF6yUMSzSQEKXPNZfMEGUI 78xRS6GREKJPdTmtDfyuN5f YjQtUrHxOHetHQ3rEFInA4m uvJNxDFImMOLcN7gsGmZrvL 9jaFxmMVxjZjJcZnMyMFxsd HJjaCAgXHBsYWluXGYxXGZz MjBcbGFuZzEwMzNcaGljaFx yAWocYuIhAZKaPCfjT1ooGl FcZnMyMFxwYXIgICAgICAgI CAgICAgICAgLSBNVVNDVUxB EccDKWATG8HEJEVvVx9NVYl ILI0SENPHCKLshZjqsG1wMo TvItQhNZtvLR9iDDDtL1fzc BXfXYSyBISpH7pgAiZomQ5n aFxmMVxjZjJcZnMyMFxsdHJ jaFxwYXJccGFyIEMuIFVSSU 5BUlkgQkxBRERFUiwgXHBsY WluXGYxXGZzMjBcbGFuZzEw MzNcaGljaFxmMVxkYmNoXGY qLHplI2gfBwHlLeJpSCCGZ3 BFDPPRA7PnO5MTTDivXCVtP WluXGYxXGZzMjBcbGFuZzEw MzNcaGljaFxmMVxkYmNoXGY jWPbzU1wxYqTgD7JmTFQnRf DavNMuR2vjZnsSXHOGLaFst GFyICAgICAgICAgICAgICAg ICAtXHBsYWluXGYxXGZzMjB cbGFuZzEwMzNcaGljaFxmMV jcPuBoGEMgDMhqR8piNcKdI nMyMCAgUEFQSUxMQVJZIFxw bGFpblxmMVxmczIwXGxhbmc yDZChIIxvW6wsInKoNYYrjV smNZmyq6NfHHIaRELsCfyzc oJyTHp8amUbADEHS5UURWzJ HKuhX0KRX5aCM59NVDKrJHg uXGYxXGZzMjBcbGFuZzEwMz NcaGljaFxmMVxkYmNoXGYxX AxwZ6vnEzTzOcUmFLMcYTuR C4wdW5XMJAFdBDsRToBVTsY ZPLMhQBwuNe4TBEpGQzLFBX ZFXHBsYWluXGYxXGZzMjBcb GFuZzEwMzNcaGljaFxmMVxk MmCuSIZdYOonV4xjNlSoE8S xVSFjArBjtBWcO5xxBBfbtY FpblxmMVxmczIwXGxhbmcxM RYxIZfpP8ovKqUmULGasPbp REexk7FcBKGaULZuGnYqnCA yICAgICAgICAgICAgICAgIC 5dKXTJK0HTVBWAMfNEKe7TJ zzHJA4MBJSMAPUNUVgSPUAO XHBhclxwbGFpblxmMVxmczI hUCkwcfwcPXMbUVafM3geJh SoQITovFtpFNkxd0LmXRQdH GRpGyesomAxSDq0xvTzAMLc ciBELiBVUklOQVJZIEJMQUR ERVIsXHBsYWluXGYxXGZzMj BcbGFuZzEwMzNcaGljaFxmM OodDxEvKIVsORnxN5joDlTl ZnMyMCAgUklHSFQgVVJFVEh AKUdgB6CZMqfWCSaucBUqnk xmMVxmczIwXGxhbmcxMDMzX UreU6kfMuBgESYxoPjeFCzt m4HvAMLvASQiKhpuyoDyPEv 0cmNoICwgQklPUFNZOiBccG FyICAgICAgICAgICAgICAgI CAtIFxwbGFpblxmMVxmczIw EIntjpstMOMfFLdsP7raFkV tTKOmpTrjJVhsl7PdJEGjZS AfHhSjGa1yPJTUZJ0VB1wPW yUJEVDFGq0IWQParCzivZ3m GnCeGmYvBYmjQC2jOJUwI3x ugKJyFVPdZDZaS8rgOaBfsK 9jaFxmMVxjZjJcZnMyMFxsd HJjaFxwYXJccGFyZFxwbGFp mgncRSyqypF5MVOqEXiyQZO xXGZzMjBcbGFuZzEwMzNcaG ljaFxmMVxkYmNoXGYxXGxvY 2hcZjFcZnMyMCAgICAgICAg ICAgICAgICAgLSBNVVNDVUx AYbcJYZHDI3OYMLBzOh1HFL pFAO7FRHQFXZScdQNpZITfP WluXGYxXGZzMjBcbGFuZzEw MzNcaGljaFxmMVxkYmNoXGY lAUcwM6qeEkBoR7DdCRNoRr NrdBBhP3sepPQdTZSyyoUyr 9PzOVWqFRS7WUnjYWblqRRu WSDltMecp2hvK4HtsDNpPRH sYWluXGYwXGZzMjRccGxhaW 1yLdVzNiFiCHyaFG3gVVReC 6tpuEXhUITgGJNtM6jpDeDw zW9pyQjtHWmcIlVbRbBmHSy sdHJjaCBFLiBVUklOQVJZIE JMQURERVIsIFxwbGFpblxmM VxmczIwXGxhbmcxMDMzXGhp C3zoRaBjKDQfpOfyTZprs8Q oXGYxXGZzMjAgUklHSFQgTE FURVJBTCBXQUxMXHBsYWluX GYxXGZzMjBcbGFuZzEwMzNc aGljaFxmMVxkYmNoXGYxXGx sN3bxSlPzE3TiBJNbAsBsrX WmD2cdBWHYNZ4MM3f1UZjqV XIgICAgICAgICAgICAgICAg EN1dSMLxAQefTLBvVGJkLaO cbGFuZzEwMzNcaGljaFxmMV wtXqPeJCOaJDmlW6sbDuBzQ nMyMCBQQVBJTExBUlkgXHBs YWluXGYxXGZzMjBcbGFuZzE wMzNcaGljaFxmMVxkYmNoXG HlNGaqC8wkOtLwU1VcQGGgE vCfpXRkH1ohAICNCMqCFWrD QZVQYJLAEZ5KXYVqzMupkF3 oImBnZiPdDCseHQ5aUIUaQ0 fpzLDtAQUwUZUsV8lgZpVdq F3jmHnwBJhimeSwKNdsXTxC DPCAPhCRCCUbY3dYDQyTQXZ ROAFpTOPRT19sES6HVHPHMo TnuPijkB6iUoDdZpThIPtbG U7vCKFaV3znvBJtVBGtUHEh N8fzUbNhhZ8faVqvSUukZqM cZnMyMFxsdHJjaCAgXHBsYW luXGYxXGZzMjBcbGFuZzEwM zNcaGljaFxmMVxkYmNoXGYx ZZgxB7rkFwAuCpCsMDkjGFC gICAgICAgICAgICAgICAgIC 7fODWTW9LLLXNCNbZZJy2PS kaSVP2ZTWQUGEGVMCdTXWKO XHBsYWluXGYxXGZzMjBcbGF uZzEwMzNcaGljaFxmMVxkYm BoMUHwABmnA3njBfGdD4CbK PTmVtIiyRYzF4ydDZngNVPz kPAtJRXzWDVFNZ4MZggnExx BRERFUiwgXHBsYWluXGYxXG ZzMjBcbGFuZzEwMzNcaGlja TscWDypOtBqKHZtWMgeQ0aj UkGpGwSjXAJIL03MLIDoRXq uXGYxXGZzMjBcbGFuZzEwMz NcaGljaFxmMVxkYmNoXGYxX FtxY0nsIcBuD7QuHROhYdFt fGKlD9lvXPXBYI4GB4q2LKb wYXIgICAgICAgICAgICAgIC WqDR1rHKLlTOmuIVDhWPDuW jBcbGFuZzEwMzNcaGljaFxm VRmaPkEtMCUqUGerF1bwOsE xPtGhIPIPHgGYQBGAG9tVM8 hWCBUUKLgWB1HEB9uyFMYgR XWoGDVuZDQwZRZyAPIlKE4v XTQBM9AXQVGLUtRLOj1CKvj BIElTIFBSRVNFTlRccGxhaW 1mYqFrNzGqLYxqLR2zJAIqV 7xsnETwKWAkIRHoS1rtCcBh kO4duNytEMltWtEuAlRaHQg sdHJjaFxwYXJccGFyXHBsYW luXGYxXGZzMjBcbGFuZzEwM zNcaGljaFxmMVxkYmNoXGYx XJxqJ1bgBoLjSrIlWMMGZGZ sYWluXGYxXGZzMjBcbGFuZz EwMzNcaGljaFxmMVxkYmNoX AClHJyxY5jdSpTrW6BxUHNb SwKgoZVdJ8hlFiQWSsaBUYH ZIEJMQURERVIsIFRSSUdPTk OzVLZFF4FVREtsZDOrfqHtK CAgICAgICAgICAgICAgLSBN SEnMBEOJUv4MUOVmNG8HRAH UNMVGOC0JUZNWGWxWIZtSAF VLA1SyLDfAIBlWF9wXM24MA CcTCqZZR8zzzHruoV9gAuZn GjZsNXbpEE0pDVTeE1jvdFH gQYOvBBBsA4spFxWpmE1bhS xmMVxmczIwXHBhciAgICAgI CAgICAgICAgICAgLSBNVVND MGhTMgoWHPWBC6ODQOCmZMA xQn0WPBjGAG3JWEPPGRWxrE hdxF7uTeEvWmBqAXqcUE1sR XKhG9dffCEiPEZtWFTmF5tq XzNlxM3fkBplBPsdCuHzOiK yMFxsdHJjaCAgXHBsYWluXG YxXGZzMjBcbGFuZzEwMzNca GljaFxmMVxkYmNoXGYxXGxv L5hgQvChQbReVHqkEUNsqUR uZTkbt0LvkeGyaYdzJIYlPA FsXHBsYWluXGYwXGZzMjRcc UnyeS5qLjBwOkGbBAsbNL8w ZBPkW6akhXRzDRFuHKCsY7h jUkQbqD1ubJndGBbfouMvXE Ehnt95ZYI2DoHnl8R4FWW8L JIyMMMfn3asZHPnzDOoDyTr MzNcZnRuYmpcdWMxXGRlZmY jk4nev406kIEun9uwYCRjVk Z5jVSqEYRjnGAsB596TLAtY Hfyi4lpx9RzJETjiGRnm1W6 CDVJygqyoPe5dMecX24gh2J 3EjuhM0drUCKpKTXfH6VcZH 8uIVWbYvw3LRC6LPX0DJVtX DMoQ0IhKZ6hFJZwqXCwXJc5 o4ofrLxpJTQfYHJ5b4peHMp wvpCoSK3ezk6duFk7v3vlsx LkGGBtYOTxxNNYYBEhP0Iuk BerYy8chGs5kZpgPkgcWSS9 Ckb5NR3yre73xfc4hNxdQEO drjzxZxP4PPlrBZHzpcbnFK w2TAuvOYDwqUA4VMNoaDAgR 7IkHVTiUL5htnz0PMQ8TXqu KVVhJeS8KXZmuSBpHUXciEx dOJzvp102UFO6AkCaFH2oT1 Ynk1X8oO9hvMPyTIXraAPdX oKnPCIafe2bcZGfJKfsg6Ld YKH3tnM0xCArzRNzBLXnNmK 5FZeuCH6lre92MMXwAQM6pl 5ybGNccGdicmRyaGVhZFxwZ 0RxLFVyt511PJPkR2RjGDGr n3A8ziXkXpBrHSZxsTV9pzB 3DZMrXC8xdexza5hvBOnyWF wjWIZezwG6eiW4BNHfkGAsJ 2HkzU4yEZJzWV8baovhq8ve HOX8LNhbYROpGEX6VdDcHHP ss4Maggj9AdXfm9BgzNTrHM ubB03zg175OEEliiNjX0opq GFpblxwbGFpblxmMFxmczI0 YSNpEFbxnabbRROvUUfnZ6l nPlOxPNQyiQlgIHrlw8SuOU UaFMGbXaXcbYHcQHLzYqb8X KZssEQgRTGbRfDcZ2ylyzfe MyWOJDQzi1vvA9ewbDLGzWS qA3EdEGqkxeOdMHthHOssQZ LzVQE6GD2qKTPeWOGryd73 CPT Code(s) (test code b3cuoGWmALChxZQeApUkUUT = 5969) fSITxu5owSGGusJHmYmDyZz NcZnRuYmpcdWMxXGRlZmYwe 8iht268rAKyl9ktHTZkIpS7 bUNcIFRwqITaQ481s3iyr6y pnaVgiOW8CRPxHAM8AYpzab FcbnH8SPudjCZtNtC1SXatn dMiGFomyeWfbtUnEdm7PIHf O729NWH1wQkqg1prIYA5GNO bRGHlXmFgDw1hoFEjR368IM OmSMUDPIDxrIx5WCHzpcPhr yVtiPHBk403F528g2jlGRCd nlOfqZgHncvku7cxI135NKO hcGVydzEyMjQwXHBhcGVyaD E6YRQrPG0auqbjXeNuZH8zt oqoQiIqCI6dyah7ZhHtEE4t cmdiNzIwXGhlYWRlcnkwXGZ al2QzozsdXL0eA9Gpg2H6dM 9maXRcZGVmdGFiNzIwXGZvc i7qxWHvKRdcf7BxDZT2xtJ8 qOAsqMJdNJTxOE52Xlgad3Y jGvdlIWW6CCJcowBem7Mfu3 xcJdYzaqPdG3xzW5WeKMGcO OXlNQOtYuMojoNmd2Ayi1Eb xFLofCm6k5osQCNuPSBxuUn yx0rkAHO1FKPqH8R1vBUhi2 knJLbvFUPmtOB8euxhMEdiZ KLqccZ9mxzoLPlkGJCnqJB9 hfbyEYpvEQFrLbG9ndxsTFa kQERcXNA0ETyok764PVJ1TM xzYmtwYWdlXHBnbmNvbnRcc GduZGVjXHBsYWluXHBsYWlu XGYwXGZzMjRccWxccGxhaW5 jUwSeZfKbVMpkOF7gVMEzA9 szlOGbOYXcBLMfI5niUtVop H5gqUpeSTunczQsPQt9AuZ3 UKx6BQKwwy5= CLINICAL HISTORY (test y9odeJBoMGUfzDCxFiHfBNN code = 3356) yRTYpr3inXQEfyWHbOrZqPb NcZnRuYmpcdWMxXGRlZmYwe 7cmp467lWLag6tuBVHvBrN0 sXBhQAZcnJTzL199GMPvSDi vz7urc2NtWBPqaDJhx1P2MP OSlwvcaDt3pCnlE02ao0N9C fclF7clHFXoRJNpO0MxWD3i WADlEyk1YVA4RZI4PJUqQWI cN9QsJY5yEVFngBYjOBs5v4 kcaUanKAGfMVX8p0pcJJwfv jBtBI4qrg3fvTw3m1btruRi TBMfUAWikZHMKSRaB7XkwAc zOm3ilFe7vJawBzjvMXY2Ou l6IM4xgw88hrq9vDnqHWPto spqBlJ1PWjuYFCugewyPKy3 MFxtYXJnbDcyMFxtYXJncjc yMFxtYXJndDcyMFxtYXJnYj bbCXyfGPEkPQJ8YDdym472F AJ6NIpko9qyj3chnZUhLwv4 DEEnMvAkNdtaOXdat6Hlw5c kKVVmqk3cLNK7hVHefMgol9 R6zYJmCLGphZApceYmXJAgK qI3QZvhWA5xns50RVVxIBR9 re1daISbaZwdkuTdrVRmNMb bL4FzYOCkg329VFGcR7WxFQ Nun0M7fnTeYtRhYIFznVL4t aB7PPTaZIu5aVIihsT0lcJi dJTbZ6tlnU00EjZamEHxM9R ndJ41KdPwqBEoS3NkxW40Db BmfUVsG6LqrB11TaUivMQoX HQewKJvRi3wcCKwdXEot7Hc uEOmPNdqF81fd136EHNxnbH mS2slrUWkespxpVKkasyjTM vjvnI3GFh7vtQepaaxmHjja GFpblxmMVxmczIwXGxhbmcx FIWjRHcbK2ijBdXqWYLjwUm xYWjpi9BpDRHgAHJbNiJgV8 InB9PuUP7dQM24LYXlXAIqf G3dQOKqgGEaIP8mJRTwHVEn YQDdIDfAKilxR5O8Ql12YJs kqV6xKVIuRnF9TJCpbu4= SPECIMEN SOURCE (test d1zuwSUoOAMbvOTyCiNvKEI code = 3377) pGRGtb6uqPYHvrDBoRwXqLr NcZnRuYmpcdWMxXGRlZmYwe 7ztn398aWIxz5hmXZElIyG1 wGQjKFPvuIAiY419x1ggy0d rirWwcJY2RZWxGIG3IVrvih IegrD0TIigxFJtEbD5SQpur cNxDZkkohVqbzOaUee9LIMq O284KOT2nPhra1ztBAK8CEO aMAQxIcQqXk2lsIUzW369HL YeAORKTLVbhNy9GQAahcXow kLysBLRy367V127i7jvCFFe qkGmrWdHcvjbu1izB616BMQ hcGVydzEyMjQwXHBhcGVyaD I0SEWhWJ7udckoSvZgPX5ic ticAtZcPR4wjrg4UhGrJY2a cmdiNzIwXGhlYWRlcnkwXGZ fr8PubyszVM4fB7Zyr0N7aQ 9maXRcZGVmdGFiNzIwXGZvc j6coQVuACgbh3OyUCH0rjT8 bGFelBVoTCIrCU67Juryw4Y oMtquKUR8KKNdcuMwq5Zfj7 qtFdLjpaAbT7srQ6ZhVMMyA GGlWADlJjXpatEza9Uqh8Dp iXEbpWh1l2uoRRUvSPYueMc wj6xfIJZ7QYYwN3F9mQFtf0 cyXWozDMGfbIZ2evclWElhR GSpopQ1wbrvCUukICQkdUI0 acgwEBeoTSTzNmB7cjupQNa vOBWlTSV0SJwkl826AUQ7GE xzYmtwYWdlXHBnbmNvbnRcc GduZGVjXHBsYWluXHBsYWlu XGYwXGZzMjRccWxccGxhaW5 sWuZvClWqSBdgFW2mTADbG0 laeEPtPFMrNLFiA9gmSnLmo N9diOvyKCfuqfRsOTNyPBMM sVBrRZOeXMTsn6GwfVwoDLL nHl4wWBXdQARpMCUtAlynmS H5YPVemaJJJkKjKouxVPOom pWzzU4gn3vrsOKhGHEvVFFJ mEGxWFJpSUYug4EszBxrVIV eIS0pJMFhENBqIQLrOrzfiI U4PEVibjBCJkLdJoczEUGuy nHuwF5tz7qxVRUrpVIdeSHj MGpgZCXAuHCcJIUkYJQbd0A esHiqbALwK23lKMydQDZ6 GROSS DESCRIPTION r6hpxFSwDWPrzHBrWyQdGQS (test code = 3366) kMUKbo2ssFAEghDRrKvWtDq NcZnRuYmpcdWMxXGRlZmYwe 0gkk572jSUgq8yfPGMkTdK3 hGVrOFGnfTGmX178u0wno7b aweAepGH2HLFpOUF6IYfpqh NrraU2QOnldZKyXhX1VHvsi jDnSMtpklLxcuXlQyr9CBWb V187COO1lLyei4nwRXX4IFY oAWNgNyKcKt4dhLErJ786WH IjSMANSUCosCo2MMMcckHsg mSzuDSMp655W569v5tnPGRf tcNmrCuQtxsrz7tpE085PJU hcGVydzEyMjQwXHBhcGVyaD B7FGGzKC6qnmndBwRqTP0ow jmoHsVnDJ9ktxu1UsLrRX9r cmdiNzIwXGhlYWRlcnkwXGZ qe4MytdyeDM9iQ4Rxp9L7cN 9maXRcZGVmdGFiNzIwXGZvc v9hfTKxLYudo6MzNIM4bhU1 rDNcsXIvXADnZC50Bsobw1G pKzyyTWI0VQPjdpDgv6Rqe7 pjIxAkzjMnT2suR3NpXSXiD ZEgZQPwMzJvcgNpv5Xgu3Qk uBIunCt5m3knCFWyMRJfbUr pe6hjBWE9LUTeK7J8yJKkz5 ruARuzPLMkjYH5cmnlCRonS HXoefL8iihmHSdfTQRkdXY3 fojqCNmfGIFbFmK9zzcfWTl xDJOaGLV1OGfbb692YMB2QL xzYmtwYWdlXHBnbmNvbnRcc GduZGVjXHBsYWluXHBsYWlu XGYwXGZzMjRccWxccGxhaW5 dZyUvQuWoLFpzQQ3qVOXuP5 uigGPuMYBbIPFzP9npFaTlw Z3dlEsyHHeubdWxLEIuUPKY IZOdcGBkSHMnblKis1UkECl pbiBsYWJlbGVkIHdpdGggdG fjJOKmdUcfgzSfdpKoHT1cJ DQlT6Mzo4Uwy89atrPgRyTc IGFuZCAibGVmdCBsYXRlcmF sIHdhbGwgYmxhZGRlciBiaW 7da8wlAZGoOZPzPHOxut1cp N0qUHUqd8O0XUZfswIxkZTr xJHfzDKsc4IavV9zYIErWOF vIDAuMyBjbSBpbiBncmVhdG BlrZHdpD0szyIfx80fa7uuX 2ggYXJlIGZpbHRlcmVkIGFu MOMruXWrvHR7GJGprW2rxH8 5nwAeczFCUU7axARjRJEqty EQOaGzUxWbNPk9RXXrsO1eY r1kjSUgbG0ncKHxIPrpMOP1 dMHgTDRwIGGkNOCoEX43K3C kwhDcFTmvRCYpGZRufB7cCK 51bWJlciBhbmQgImxlZnQgY U78DKGtj9JsdIS3GXEfrRJb bGFkZGVyIHdhbGwiIGFyZSA bWCSbmu0qtO0aBABax3B4HR AyikEmiMZtmJAjuKXcg0Hyr V9oCYCyLWXzEABySpZyfAZi xcIcfkZntYTtyUEepR1xriN qg07cq6juH6fzOKBgJTBtuJ QgjdLbMSMfDZJbnFJakMH6O OPkyH0vdN08ywCyctMUFC0r cGFyXHBhciBDLiAgUmVjZWl 9WGOrjD2vCx9jiBHqlT7eoE SfSJhdBDV8dUYzUTHbDLKbN EAsOS51K1NpwjEgHDujQVDp UPSnqB4bSS72cRPuqmHgtrU qGjQfd7SpgukqxmIrmRUwJP VyIHdhbGwiIGFyZSAyIHRhb h9gnR0pFQLnc6I3CGAcazLu kWBkaFUacVBqd6ThhN7bNIQ wIHRvIDAuMyBjbSBpbiBncm WdxBBdhNXhrT5xdaAkh59sa 7vqU3atEYSkHEFyfFEdgdRg EAPuVJAxsZXjnBI8GCNmyA9 mtD46zpAhanZPJQ2nlGWpLW DohyIFBkGoSjVxLRo2ANOxg O1eZr5haIFueF6yrAPaCZhp JNO3uJNoTFBhDGZnJLPjIA7 9L0NmviPkXEinKUYqXGRowQ 7oAG73qTDamdQlsfMkFxUaI 5z7XNKYOPJuSUAeZSGcXqrw oOX1GnTgezKiApJ0GH5ziIs znrM2iBUlaVXeSyEsK18cav GkKS4uEEA2jlmtDjJ8qYV6t zXdCnBnT72zqP1eB0IpWVMg f4IoCYqkRY3kwN7tZHqmeGL sBBUoKVJzqEm8IGUeRTFosn Frg9WezLk2yCNoMMsdTQXqm L2yzK7bVSOkRVSgjteaVKWk ZJ4cETVyH2SawwDwXOseYDF hgj1hmSnrNBjqIiNbIPClb7 t5pBB8iXLoiDB3sLBcaTbzI F6fhCNlEKClZ1Nub7ykfvBw rI2pJEEfSR9sVXJsrPlsxVP sYXRlcmFsIHdhbGwgYmxhZG JomsHrmF7tm4ueRMxzDCTdY F7jCJnoJN6uUYdoWI2wWOBm ITPtot5fhU6yFIOya5V7PAE vabLibLVqnHU4aPezaQAgxo MdoQe1VWCaRLLtalTxy6Xng Jn0lFUbLUhkGVVfeC2zzQ0b KWCwVQUoeykyBPDwLi3nZQT nZ5AbrfJtORjiEIVjpf3iaZ wpUHzxDoOrYTXuk1s5eEE3d QNptNU4aYSdjUdwTG7gmJEm AVCaE6Yjw8fdnyKqqQ8nXXM dFP1tZAZlpZZoFTBgUMOcqW YaPnucoBQ9NgAjmxCsWCOqM cT6YKZoVoO5VWEhVHPeiZE9 HV3nrLvweqP6mYCkdRNjZaZ bV00gmqLye2gpV7jlwZZvUb xonBDtVZMcKW7vMKV1Mi0bp ABwODEajsG7y1TpGKarCNHp LlxwYXJccGFyIEcuICBSZWN qhWMdBKBtlvZxc6MvMLvpbg BsYWJlbGVkIHdpdGggdGhlI ALlhFrtatWcxsNnTS0vPZJa B4Dce9Wqd51wjyQiHpNcANC gEVGkVessCRKalcD3pmgtx1 6yVNBul8YpmTHhbUOrBUCnN mOwfLLpDtVksECcEmGeK15b pDWiWREtwrpxnIjla5QlSSW dCDirXT68TCcojGNnNSfpLO ZpbHRlcmVkIGFuZCBzdWJta FK1QDGwbJ2ktB07cgDvpfPC FA7inCPzLXOikqHJyUouanO Zbql9NEbwAYMpOKWLJWoQD4 NQKWNtXHBhcn0= MICROSCOPIC w7clbWQpRAZdoBIkDjDxXSX DESCRIPTION (test code dJPIpf9qkFOQfbRZlEyHhTk = 3371) NcZnRuYmpcdWMxXGRlZmYwe 0grb381mRWuo3biLEPuTpQ2 cSYvGXSufKNcK045x6gwa3v avtDwjTH1XDVcNJB0GSgcyv AryyQ9CPekpLDhEnL0TRise qQePDsfrhWgeyNnKrz7SFJa L657OIS0zLrdf4eaCPM3JGO vAGCdXwYbEe5vmYQyD385IV OzNJZFBGGlnAq4WCSoquRqg cZutFJUa880K522p8cxPOJx sfObvOlBzbtmr5yhB022LVC hcGVydzEyMjQwXHBhcGVyaD X5MAOuNT6fpapiBpZlET6ui sykNjJaPD6ofdl5FzKyXA8f cmdiNzIwXGhlYWRlcnkwXGZ ml0TytowsUM6wD0Rug8E7xO 9maXRcZGVmdGFiNzIwXGZvc k6feDVmXZxaa3OwMRL9pgZ8 hFCdqZJwBFAlOR06Aeygz9P lBrfaf0SyP16byBN3WBbpl3 qkSW1jWbQ2tzLcZPpll8xqg D8mGrW6ZOdqLQ5aXO8yPLUy gO4prgyaZKYwWcNoqlboPGT daPmevvSfJv9ulJdvSBA5RS lbG4bvmG1vOtX4SOzcT6fxb O9eCDk7GTtvrUU2DFYffK6n UZ2hinnjj2mwCvDuFR2plbr rn6cpKtIkVB2bjno5a0vcMq UxPR2gourwr2flYoHyJWutM DEpbozeLKVor7VydpswLHSh v7TbX0MieEbvP21mzCwsC89 qTQNzkZtkiZ2trQmzoT9vHa BcZnMyNFxxbFxwbGFpblxmM FxmczIwXGxhbmcxMDMzXGhp N1nfBgSqFVFrwGudFEvhp2B jUQNyOYVcDeUjLVXrJm3lyU VkLlxwYXJ9 [facility] CaliforniaT[facility] [id number] 16:54:00Surgical Pathology Report Case: [id number] Authorizing Provider: Jose Manuel Bowie MD Collected: 12/04/2019 09:08 AM Ordering Location: [facility] Received: 12/04/2019 02:57 PM SERVICES Pathologist: Jamil Mcmanus MD Specimens: A) -Bladder Biopsy, left lateral wall biopsy B) - Bladder Biopsy, left anterior lateral wall C) - Bladder Biopsy, posterior wall biopsy D) - Bladder Biopsy, right UO E) - Bladder Biopsy, right lateral wall F) - Bladder Biopsy, Dome G) - Bladder Biopsy, Tr igone A. URINARY BLADDER, LEFT LATERAL WALL,BIOPSY: - UROTHELIAL CARCINOMA IN SITU - MUSCULARIS PROPRIA IDENTIFIEDB. URINARY BLADDER, LEFT ANTERIOR LATERAL WALL,BIOPSY: - PAPILLARY UROTHELIAL CARCINOMA, HIGH GRADE (WHO GRADE 3), NON INVASIVE - MUSCULARIS PROPRIA NOT IDENTIFIEDC. 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 URINARY BLADDER, RIGHT URETHRAL ORIFICE, BIOPSY: - NO PATHOLOGIC DIAGNOSIS - MUSCULARIS PROPRIANOT IDENTIFIEDE. 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 URINARY BLADDER, DOME, BIOPSY: - NO PATHOLOGIC DIAGNOSIS - MUSCULARIS PROPRIA IS PRESENTG. URINARY BLADDER, TRIGONE, BIOPSY: - MILD CHRONIC INFLAMMATION, NEGATIVE FOR DYSPLASIA/MALIGNANCY - MUSCULARIS PROPRIA IS NOT IDENTIFIED Signing Pathologist Direct Phone Line: [phone] signed by Jamil Mcmanus MD on 12/07/2019 at 4:54 [id number] of overlapping sites of bladder (HCC) [C67.8]18745V. Bladder biopsyB. Bladder biopsyC. Bladder biopsyD. Bladder biopsyE. Bladder biopsyF. Bladder biopsy, domeG. Bladder biopsy, trigoneA. Received in formalin labeled with the patient's name, accession numberand "left lateral wall bladder biopsy" are 2 luna-pink tissue fragments measuring up to 0.3 cm in grea test dimension which are filtered and submitted in toto in A1.B. Received in formalin labeled with the patient's name, accession number and "left anterior lateral bladder wall" are 3 luna-pink tissue fragments measuring up to 0.3 cm in greatest dimension which are filtered and submitted in toto in B1.C. Received in formalin labeled with the patient's name, accession number and "posterior bladder wall" are 2 luna-pink tissue fragments measuring up to 0.3 cm in greatest dimension which are filtered and submitted in toto in C1.D. Received in formalin labeled with the patient's name, accession number and "right UO bladder biopsy" are 2 luna-pink tissue fragments measuring up to 0.2 cm in greatest dimension which are filtered and submitted in toto in D1.E. Received in formalin labeled with the patient's name, accession number and "right lateral wall bladder biopsy" is a 0.2 x 0.2 x 0.1 cm luna-pink tissue fragment which is filtered and submitted in toto in E1.F. Received in formalin labeled with the patient's name, accession number and "bladder dome biopsy" is a 0.2 x 0.2 x 0.1 cm luna-pink tissue fragment which is filtered and submitted in toto in F1.G. Received in formalin labeled with the patient's name, accession number and "bladder trigone biopsy" is a 0.2 x 0.2 x 0.1 cm luna-pink tissue fragment which is filtered and submitted in toto in G1.BRET Hoover [facility])cmPerformed. POC-Glucose [id number] 10:03:00 Test Item Value Reference Range Interpretation Comments POC-Glucose Meter (test 70 mg/dL 70-110 : TE STED AT [facility] code = 1538) [address] [facility], 770 30: Training Assistant/Techni renae ID = [id number] for Luis Fernando Sylvester e Lab Interpretation (test Normal code = 03484-2) [facility] CaliforniaPOCT-GLUCOSE [id number] 10:03:00 Test Item Value Reference Range Interpretation Comments POC-GLUCOSE METER 70 mg/dL 70-110 : TESTED A T [facility] 6720 (BEAKER) (test code = ASIA R [facility], 1538) [address]: Training Assistant/Techni renae ID = [id number] for Enedina Russo Basic Metabolic [id number] 08:17:00 Test Item Value Reference Range Interpretation Comments Sodium (test code = 143 meq/L 206-984 1443-2) Potassium (test code = 4.4 meq/L 3.5-5.1 2823-3) Chloride (test code = 108 meq/L 98-107 H 2075-0) CO2 (test code = 26 meq/L 22-29 2028-9) BUN (test code = 16 mg/dL 7-21 3094-0) Creatinine (test code 1.35 mg/dL 0.57-1.25 H = 2160-0) Glucose (test code = 86 mg/dL 70-105 2345-7) Calcium (test code = 8.8 mg/dL 8.4-10.2 84791-6) EGFR (test code = 52 mL/min/1.73 [place] [address]-9) NOT ACCURATE CREATININE CLEARANCE IN PREDICTING GLOMERULAR FILTRATION RATE . ESTIMATED GFR I S NOT APPLICABLE FOR DIALYSIS PATIENTS. SCOTT (test code = SCOTT) Training Assistant ID - NTP Lab Interpretation Abnormal (test code = 26726-4) [facility] CaliforniaBASIC METABOLIC [id number] 08:17:00 Test Item Value Reference Range Interpretation Comments SODIUM (BEAKER) 143 meq/L 136-145 (test code = 381) POTASSIUM (BEAKER) 4.4 meq/L 3.5-5.1 (test code = 379) CHLORIDE (BEAKER) 108 meq/L 98-107 H (test code = 382) CO2 (BEAKER) (test 26 meq/L 22-29 code = 355) BLOOD UREA NITROGEN 16 mg/dL 7-21 (BEAKER) (test code = 354) CREATININE (BEAKER) 1.35 mg/dL 0.57-1.25 H (test code = 358) GLUCOSE RANDOM 86 mg/dL 70-105 (BEAKER) (test code = 652) CALCIUM (BEAKER) 8.8 mg/dL 8.4-10.2 (test code = 697) EGFR (BEAKER) (test 52 mL/min/1.73 ESTIMA FABRIZIO GFR IS code = 1092) sq m NOT ACCURATE CREATININE CLEARANCE IN PREDICTING GLOMERULAR FILTRATION RATE . ESTIMATED GFR I S NOT APPLICABLE FOR DIALYSIS PATIEN TS. Training Assistant ID - [id number] with platelet count + automated [id number] 08:02:00 Test Item Value Reference Range Interpretation Comments WBC (test code = 6690-2) 7.1 3.5- 10.5 K/L RBC (test code = 789-8) 3.45 4.63- 6.08 M/L L MCHC (test code = 786-4) 29.7 32.3- 36.5 GM/DL L Hematocrit (test code = 4544-3) 27.3 % 40.1-51 L MCV (test code = 787-2) 79.1 fL 79-92.2 MCH (test code = 785-6) 23.5 pg 25.7-32.2 L RDW (test code = 788-0) 14.4 % 11.6-14.4 Platelets (test code = 777-3) 230 150- 450 K/CU MM MPV (test code = 75621-7) 10.5 fL 9.4-12.4 nRBC (test code = 413) 0 0- 0 /100 WBC % Neutros (test code = 429) 71 % % Lymphs (test code = 430) 17 % % Monos (test code = 431) 8 % % Eos (test code = 432) 2 % % Baso (test code = 437) 1 % # Neutros (test code = 670) 5.04 1.78- 5.38 K/L # Lymphs (test code = 414) 1.23 1.32- 3.57 K/L L # Monos (test code = 415) 0.58 0.30- 0.82 K/L # Eos (test code = 416) 0.17 0.04- 0.54 K/L # Baso (test code = 417) 0.10 0.01- 0.08 K/L H Immature Granulocytes-Relative 0 % 0-1 (test code = 2801) Lab Interpretation (test code = Abnormal 81855-6) [facility] W/PLT COUNT & AUTO [id number] 08:02:00 Test Item Value Reference Range Interpretation Comments WHITE BLOOD CELL COUNT (BEAKER) 7.1 K/ L 3.5-10.5 (test code = 775) RED BLOOD CELL COUNT (BEAKER) 3.45 M/ L 4.63-6.08 L (test code = 761) HEMOGLOBIN (BEAKER) (test code = 8.1 GM/DL 13.7-17.5 L 410) HEMATOCRIT (BEAKER) (test code = 27.3 % 40.1-51.0 L 411) MEAN CORPUSCULAR VOLUME (BEAKER) 79.1 fL 79.0-92.2 (test code = 753) MEAN CORPUSCULAR HEMOGLOBIN 23.5 pg 25.7-32.2 L (BEAKER) (test code = 751) MEAN CORPUSCULAR HEMOGLOBIN CONC 29.7 GM/DL 32.3-36.5 L (BEAKER) (test code = 752) RED CELL DISTRIBUTION WIDTH 14.4 % 11.6-14.4 (BEAKER) (test code = 412) PLATELET COUNT (BEAKER) (test 230 K/CU MM 150-450 code = 756) MEAN PLATELET VOLUME (BEAKER) 10.5 fL 9.4-12.4 (test code = 754) NUCLEATED RED BLOOD CELLS 0 /100 WBC 0-0 (BEAKER) (test code = 413) NEUTROPHILS RELATIVE PERCENT 71 % (BEAKER) (test code = 429) LYMPHOCYTES RELATIVE PERCENT 17 % (BEAKER) (test code = 430) MONOCYTES RELATIVE PERCENT 8 % (BEAKER) (test code = 431) EOSINOPHILS RELATIVE PERCENT 2 % (BEAKER) (test code = 432) BASOPHILS RELATIVE PERCENT 1 % (BEAKER) (test code = 437) NEUTROPHILS ABSOLUTE COUNT 5.04 K/ L 1.78-5.38 (BEAKER) (test code = 670) LYMPHOCYTES ABSOLUTE COUNT 1.23 K/ L 1.32-3.57 L (BEAKER) (test code = 414) MONOCYTES ABSOLUTE COUNT (BEAKER) 0.58 K/ L 0.30-0.82 (test code = 415) EOSINOPHILS ABSOLUTE COUNT 0.17 K/ L 0.04-0.54 (BEAKER) (test code = 416) BASOPHILS ABSOLUTE COUNT (BEAKER) 0.10 K/ L 0.01-0.08 H (test code = 417) IMMATURE GRANULOCYTES-RELATIVE 0 % 0-1 PERCENT (BEAKER) (test code = 2801) POCT-GLUCOSE [id number] 07:38:00 Test Item Value Reference Range Interpretation Comments POC-GLUCOSE METER 76 mg/dL 70-110 : TESTED A T [facility] 6720 (BEAKER) (test code = [facility], 1538) [address]: Training Assistant/Techni renae ID = [id number] for GLENIS WEST POCT-GLUCOSE [id number] 14:15:00 Test Item Value Reference Range Interpretation Comments POC-GLUCOSE METER 92 mg/dL 70-110 : TESTED A T [facility] 6720 (BEAKER) (test code = [facility], 1538) [address]: Training Assistant/Techni renae ID = [id number] for FATOUMATA YANES TONY Kelli ECG 12 [id number] 13:43:30Interface, External Ris In - 06/16/2019 1:43 PM CSTVentricular Rate 98 BPMAtrial Rate 98 BPMP-R Interval 164 msQRS Duration 154 msQ-T Interval 444 msQTC Calculation(Bazett) 566 msP [place] 86 degreesR [place] -77 degreesT [place] 93 degreesNormal sinus rhythmLeft axis deviationRight bundle branch blockSeptal infarct (cited on or before 16-JUN-2019)Abnormal ECGWhen compared with ECG of 27-MAR-2019 12:54,Premature atrial complexes are no longer PresentT wave inversion less evident in Anterolateral leadsConfirmed by MD Nazario Roberto ([id number]) on 06/16/2019 1:43:26 [facility] CenterProthrombin time/[id number] 11:38:00 Test Item Value Reference Range Interpretation Comments Protime (test code = 13.6 11.9- 14.2 5902-2) seconds INR (test code = 1.1 <=5.9 6301-6) CSOTT (test code = SCOTT) Effective 12/03/2018: PT Reference Range ChangeNew: 11.9-14.2 Previous: 11.7-14.7 RECOMMENDED COUMADIN/WARFARIN INR THERAPY RANGESSTANDARD DOSE: 2.0-3.0 Includes: PROPHYLAXIS for venous thrombosis, systemic embolization; TREATMENT for venous thrombosis and/or pulmonary embolus.HIGH RISK: Target INR is 2.5-3.5 for patients wiht mechanical heart valves. Lab Interpretation Normal (test code = 95032-9) [facility] CaliforniaPROTHROMBIN TIME/[id number] 11:38:00 Test Item Value Reference Range Interpretation Comments PROTIME (BEAKER) (test code = 13.6 seconds 11.9-14.2 759) INR (BEAKER) (test code = 370) 1.1 <=5.9 Effective 12/03/2018: PT Reference Range ChangeNew: 11.9-14.2 Previous: 11.7- 14.7RECOMMENDED COUMADIN/WARFARIN INR THERAPY RANGESSTANDARD DOSE: 2.0-3.0 Includes: PROPHYLAXIS for venous thrombosis, systemic embolization; TREATMENT for venous thrombosis and/or pulmonary embolus.HIGH RISK: Target INR is2.5-3.5 for patients wiht mechanical heart valves.BASIC METABOLIC [id number] 11:36:00 Test Item Value Reference Range Interpretation Comments SODIUM (BEAKER) 144 meq/L 136-145 (test code = 381) POTASSIUM (BEAKER) 3.3 meq/L 3.5-5.1 L (test code = 379) CHLORIDE (BEAKER) 101 meq/L 98-107 (test code = 382) CO2 (BEAKER) (test 31 meq/L 22-29 H code = 355) BLOOD UREA NITROGEN 15 mg/dL 7-21 (BEAKER) (test code = 354) CREATININE (BEAKER) 1.47 mg/dL 0.57-1.25 H (test code = 358) GLUCOSE RANDOM 94 mg/dL 70-105 (BEAKER) (test code = 652) CALCIUM (BEAKER) 9.6 mg/dL 8.4-10.2 (test code = 697) EGFR (BEAKER) (test 47 mL/min/1.73 ESTIMA FABRIZIO GFR IS code = 1092) sq m NOT ACCURATE CREATININE CLEARANCE IN PREDICTING GLOMERULAR FILTRATION RATE . ESTIMATED GFR I S NOT APPLICABLE FOR DIALYSIS PATIEN TS. CBC W/PLT COUNT & AUTO [id number] 11:15:00 Test Item Value Reference Range Interpretation Comments WHITE BLOOD CELL COUNT (BEAKER) 9.9 K/ L 3.5-10.5 (test code = 775) RED BLOOD CELL COUNT (BEAKER) 4.87 M/ L 4.63-6.08 (test code = 761) HEMOGLOBIN (BEAKER) (test code = 12.4 GM/DL 13.7-17.5 L 410) HEMATOCRIT (BEAKER) (test code = 40.7 % 40.1-51.0 411) MEAN CORPUSCULAR VOLUME (BEAKER) 83.6 fL 79.0-92.2 (test code = 753) MEAN CORPUSCULAR HEMOGLOBIN 25.5 pg 25.7-32.2 L (BEAKER) (test code = 751) MEAN CORPUSCULAR HEMOGLOBIN CONC 30.5 GM/DL 32.3-36.5 L (BEAKER) (test code = 752) RED CELL DISTRIBUTION WIDTH 16.3 % 11.6-14.4 H (BEAKER) (test code = 412) PLATELET COUNT (BEAKER) (test 204 K/CU MM 150-450 code = 756) MEAN PLATELET VOLUME (BEAKER) 10.0 fL 9.4-12.4 (test code = 754) NUCLEATED RED BLOOD CELLS 0 /100 WBC 0-0 (BEAKER) (test code = 413) NEUTROPHILS RELATIVE PERCENT 78 % (BEAKER) (test code = 429) LYMPHOCYTES RELATIVE PERCENT 11 % (BEAKER) (test code = 430) MONOCYTES RELATIVE PERCENT 8 % (BEAKER) (test code = 431) EOSINOPHILS RELATIVE PERCENT 1 % (BEAKER) (test code = 432) BASOPHILS RELATIVE PERCENT 1 % (BEAKER) (test code = 437) NEUTROPHILS ABSOLUTE COUNT 7.77 K/ L 1.78-5.38 H (BEAKER) (test code = 670) LYMPHOCYTES ABSOLUTE COUNT 1.06 K/ L 1.32-3.57 L (BEAKER) (test code = 414) MONOCYTES ABSOLUTE COUNT (BEAKER) 0.81 K/ L 0.30-0.82 (test code = 415) EOSINOPHILS ABSOLUTE COUNT 0.13 K/ L 0.04-0.54 (BEAKER) (test code = 416) BASOPHILS ABSOLUTE COUNT (BEAKER) 0.12 K/ L 0.01-0.08 H (test code = 417) IMMATURE GRANULOCYTES-RELATIVE 0 % 0-1 PERCENT (BEAKER) (test code = 2801) Transesophageal [id number] 13:28:51Ejection FractionSLEH ECHO HEARTLAB MKCKESSON CPACSInterface, External Ris In - 03/27/2019 1:28 PM C DTTransesophageal Echocardiography Report (WAYNE) Demographics Patient Name TERESA, Dateof Study 03/26/[address] Gender Male Visit Number [id number] Race Unknown Room Number 1419 Number Date of 1945 Referring Physician Mohit HOLLEY Age 73 year(s) Director Of Planning Asher Tena Interpreting Moose Quintanilla, Physician The procedure was explained in detail to the patient. Risks, complications and alternative treatments were reviewed. Written consent was obtained. Procedure Type of Study WAYNE procedure:TRANSESOPHAGEAL ECHO Indications:Atrial fibrillation.Clinical HistoryCHF,A-FIB,BLADDER CANCER,BPH,CAD,COPD,HLD,HTN,ICMP,NSTEMI,DMII,CVA,PVD,OK,S/P CABG,RESP.FAILUREHeight: 71 inches Weight: 87.54 kg (193lbs) BSA: 2.08 m^2 BMI: 26.92 kg/m^2HR: 99 bpm BP: 121/88 mmHg Procedure Informed Consent Procedure c onsent form obtained. WAYNE procedure notes Moderate sedation by performing MD using 3 mg IV versed and 50 mcg IV fentanyl. The patient was counseled and informed consent was obtained. Topical and intravenous anesthesia was administered. The esophagus was intubated without difficulty. The probe was pass ed and all standard echocardiographic views were obtained. The patient tolerated the procedure well. Summary Global LV systolic function severely reduced . No evidence of left atrial or left atrial appendage thrombus. Estimated peak systolic PA pressure is 20-25 mmHg + RA pressure. Signature ------- Findings Left Ventricle The left ventricle is chamber size (by vol index) is normal (male - LVED vol - 34-74ml/m2). Global LV systolic function severely reduced . Left Atrium LA is enlarged but severity assessment is unreliable due to know WAYNE sector size limitation. No evidence of left atrial or left atrial appendage thrombus. Right Global RV systolic function is depressed . Ventricle Right At rium RA size is normal. Atrial Septum IV saline contrast injection was negative for a PFO (patent foramen ovale) at rest . Aortic Valve Mild AoV cusp thickening. Mitral Valve Mild MV leaflet thickening. Trace mitral regurgitation. Tricuspid TV structure isnormal. Valve Mild tricuspid regurgitation. Estimated peak systolic PA pressure is 20-25 mmHg + RA pressure. Pulmonic Valve Normal PV structure and function by limited views and Doppler. Aorta Grade 2 plaque (extensive intimal thickening) in the descending thoracic aorta . Pericardium No pericardial effusion is visuali zed. Left Ventricle LVEDV Coelho's:105.37 ml LVESV Coelho's:75.29 ml LVEF Coelho's: 28.5 % LVEDVI: 51 ml/m^2 LVESVI:36 ml/m^2[facility] [place] [place] [id number] 13:22:00 Test Item Value Reference Range Interpretation Comments POC-GLUCOSE METER 153 mg/dL 70-110 H TESTED AT [place] [address] ([place]) (test code = [place] 1538) [address] BASIC METABOLIC [id number] 06:14:00 Test Item Value Reference Range Interpretation Comments SODIUM (BEAKER) 139 meq/L 136-145 (test code = 381) POTASSIUM (BEAKER) 3.6 meq/L 3.5-5.1 (test code = 379) CHLORIDE (BEAKER) 105 meq/L 98-107 (test code = 382) CO2 (BEAKER) (test 25 meq/L 22-29 code = 355) BLOOD UREA NITROGEN 13 mg/dL 7-21 (BEAKER) (test code = 354) CREATININE (BEAKER) 1.25 mg/dL 0.57-1.25 (test code = 358) GLUCOSE RANDOM 87 mg/dL 70-105 (BEAKER) (test code = 652) CALCIUM (BEAKER) 8.7 mg/dL 8.4-10.2 (test code = 697) EGFR (BEAKER) (test 57 mL/min/1.73 ESTIMA FABRIZIO GFR IS code = 1092) sq m NOT ACCURATE CREATININE CLEARANCE IN PREDICTING GLOMERULAR FILTRATION RATE . ESTIMATED GFR I S NOT APPLICABLE FOR DIALYSIS PATIEN TS. CBC W/PLT COUNT & AUTO [id number] 05:14:00 Test Item Value Reference Range Interpretation Comments WHITE BLOOD CELL COUNT (BEAKER) 7.1 K/ L 3.5-10.5 (test code = 775) RED BLOOD CELL COUNT (BEAKER) 4.11 M/ L 4.63-6.08 L (test code = 761) HEMOGLOBIN (BEAKER) (test code = 10.3 GM/DL 13.7-17.5 L 410) HEMATOCRIT (BEAKER) (test code = 33.4 % 40.1-51.0 L 411) MEAN CORPUSCULAR VOLUME (BEAKER) 81.3 fL 79.0-92.2 (test code = 753) MEAN CORPUSCULAR HEMOGLOBIN 25.1 pg 25.7-32.2 L (BEAKER) (test code = 751) MEAN CORPUSCULAR HEMOGLOBIN CONC 30.8 GM/DL 32.3-36.5 L (BEAKER) (test code = 752) RED CELL DISTRIBUTION WIDTH 19.9 % 11.6-14.4 H (BEAKER) (test code = 412) PLATELET COUNT (BEAKER) (test 217 K/CU MM 150-450 code = 756) MEAN PLATELET VOLUME (BEAKER) 10.6 fL 9.4-12.4 (test code = 754) NUCLEATED RED BLOOD CELLS 0 /100 WBC 0-0 (BEAKER) (test code = 413) NEUTROPHILS RELATIVE PERCENT 70 % (BEAKER) (test code = 429) LYMPHOCYTES RELATIVE PERCENT 13 % (BEAKER) (test code = 430) MONOCYTES RELATIVE PERCENT 14 % (BEAKER) (test code = 431) EOSINOPHILS RELATIVE PERCENT 1 % (BEAKER) (test code = 432) BASOPHILS RELATIVE PERCENT 1 % (BEAKER) (test code = 437) NEUTROPHILS ABSOLUTE COUNT 4.97 K/ L 1.78-5.38 (BEAKER) (test code = 670) LYMPHOCYTES ABSOLUTE COUNT 0.91 K/ L 1.32-3.57 L (BEAKER) (test code = 414) MONOCYTES ABSOLUTE COUNT (BEAKER) 1.01 K/ L 0.30-0.82 H (test code = 415) EOSINOPHILS ABSOLUTE COUNT 0.10 K/ L 0.04-0.54 (BEAKER) (test code = 416) BASOPHILS ABSOLUTE COUNT (BEAKER) 0.07 K/ L 0.01-0.08 (test code = 417) IMMATURE GRANULOCYTES-RELATIVE 0 % 0-1 PERCENT (BEAKER) (test code = 2801) POCT-GLUCOSE [id number] 22:33:00 Test Item Value Reference Range Interpretation Comments POC-GLUCOSE METER 113 mg/dL 70-110 H TESTED AT [facility] (BEAKER) (test code = [address] [facility] 1538) [address] POCT-GLUCOSE [id number] 16:06:00 Test Item Value Reference Range Interpretation Comments POC-GLUCOSE METER 122 mg/dL 70-110 H TESTED AT [facility] 67[facility] (BEAKER) (test code = [facility] [address] [facility] 1538) [address] Hemoglobin [id number] 10:17:00 Test Item Value Reference Range Interpretation Comments Hemoglobin A1C (test code = 4548-4) 7.2 % 4.3-6.1 H Lab Interpretation (test code = Abnormal 19420-1) [facility] CaliforniaHEMO[facility] [id number] 10:17:00 Test Item Value Reference Range Interpretation Comments HEMOGLOBIN A1C (BEAKER) (test code = 7.2 % 4.3-6.1 H 368) POCT-GLUCOSE [id number] 08:01:00 Test Item Value Reference Range Interpretation Comments POC-GLUCOSE METER 101 mg/dL 70-110 TESTED AT [facility] (BEAKER) (test code = [place] 1538) [address] BASIC METABOLIC [id number] 05:05:00 Test Item Value Reference Range Interpretation Comments SODIUM (BEAKER) 140 meq/L 136-145 (test code = 381) POTASSIUM (BEAKER) 3.9 meq/L 3.5-5.1 (test code = 379) CHLORIDE (BEAKER) 106 meq/L 98-107 (test code = 382) CO2 (BEAKER) (test 27 meq/L 22-29 code = 355) BLOOD UREA NITROGEN 17 mg/dL 7-21 (BEAKER) (test code = 354) CREATININE (BEAKER) 1.55 mg/dL 0.57-1.25 H (test code = 358) GLUCOSE RANDOM 96 mg/dL 70-105 (BEAKER) (test code = 652) CALCIUM (BEAKER) 8.6 mg/dL 8.4-10.2 (test code = 697) EGFR (BEAKER) (test 44 mL/min/1.73 ESTIMA FABRIZIO GFR IS code = 1092) sq m NOT ACCURATE CREATININE CLEARANCE IN PREDICTING GLOMERULAR FILTRATION RATE . ESTIMATED GFR I S NOT APPLICABLE FOR DIALYSIS PATIEN TS. CBC W/PLT COUNT & AUTO [id number] 04:39:00 Test Item Value Reference Range Interpretation Comments WHITE BLOOD CELL COUNT (BEAKER) 7.5 K/ L 3.5-10.5 (test code = 775) RED BLOOD CELL COUNT (BEAKER) 4.01 M/ L 4.63-6.08 L (test code = 761) HEMOGLOBIN (BEAKER) (test code = 10.1 GM/DL 13.7-17.5 L 410) HEMATOCRIT (BEAKER) (test code = 32.7 % 40.1-51.0 L 411) MEAN CORPUSCULAR VOLUME (BEAKER) 81.5 fL 79.0-92.2 (test code = 753) MEAN CORPUSCULAR HEMOGLOBIN 25.2 pg 25.7-32.2 L (BEAKER) (test code = 751) MEAN CORPUSCULAR HEMOGLOBIN CONC 30.9 GM/DL 32.3-36.5 L (BEAKER) (test code = 752) RED CELL DISTRIBUTION WIDTH 20.0 % 11.6-14.4 H (BEAKER) (test code = 412) PLATELET COUNT (BEAKER) (test 206 K/CU MM 150-450 code = 756) MEAN PLATELET VOLUME (BEAKER) 10.4 fL 9.4-12.4 (test code = 754) NUCLEATED RED BLOOD CELLS 0 /100 WBC 0-0 (BEAKER) (test code = 413) NEUTROPHILS RELATIVE PERCENT 67 % (BEAKER) (test code = 429) LYMPHOCYTES RELATIVE PERCENT 17 % (BEAKER) (test code = 430) MONOCYTES RELATIVE PERCENT 13 % (BEAKER) (test code = 431) EOSINOPHILS RELATIVE PERCENT 2 % (BEAKER) (test code = 432) BASOPHILS RELATIVE PERCENT 1 % (BEAKER) (test code = 437) NEUTROPHILS ABSOLUTE COUNT 5.01 K/ L 1.78-5.38 (BEAKER) (test code = 670) LYMPHOCYTES ABSOLUTE COUNT 1.28 K/ L 1.32-3.57 L (BEAKER) (test code = 414) MONOCYTES ABSOLUTE COUNT (BEAKER) 0.99 K/ L 0.30-0.82 H (test code = 415) EOSINOPHILS ABSOLUTE COUNT 0.12 K/ L 0.04-0.54 (BEAKER) (test code = 416) BASOPHILS ABSOLUTE COUNT (BEAKER) 0.07 K/ L 0.01-0.08 (test code = 417) IMMATURE GRANULOCYTES-RELATIVE 1 % 0-1 PERCENT (BEAKER) (test code = 2801) POCT-GLUCOSE [id number] 21:13:00 Test Item Value Reference Range Interpretation Comments POC-GLUCOSE METER 95 mg/dL 70-110 TESTED AT [facility] ([facility]) (test code = [place] [address] 1538) POCT-GLUCOSE [id number] 16:15:00 Test Item Value Reference Range Interpretation Comments POC-GLUCOSE METER 177 mg/dL 70-110 H [facility] (test code = [address] [place] 1538) [address] ECG/EKG Zqtiizbyvlqzzn7748-12-39 13:57:15Roosevelt Faulkner MD 03/25/2019 2:01 PMECG/EKG InterpretationDate/Time: 03/25/2019 1:59 PMPerformed by: Roosevelt Faulkner MDAuthorized by: Roosevelt Faulkner MD The ECG was interpreted by ED physician. The ECG is interpreted as atrial fibrillation. Heart rate is 98 BPM.Patient tolerance: Patient tolerated the procedure well with no immediate complicationsComments: A-FIB RATE CONTROLLED ON MONITOR[facility]– WatsonvilleRAD, CHEST, 1 VIEW, NON [id number] 12:17:00Reason for exam:- >TACHYCARDIAShould this be performed at the bedside?->YesFINAL REPORT INDICATION: TACHYCARDIA COMPARISON: December 26, 2018 TECHNIQUE: Single frontal view of the chest. IMPRESSION:Lungs and pleura: Small moderate left effusion. Associated relaxation atelectasis. No lobar consolidation.Heart and mediastinum: Normal heart size. Stable surgical changes.Osseous structures: No acute abnormality.Other: None. Signed: JR Bill Robert MDReport Verified Date/Time: 03/25/2019 12:17:01 Reading Location: [facility] Radiology Reading Room XR chest 1 view portable / [id number] 12:17:00Interface, External Ris In - 03/25/2019 12:19 PM CDTFINAL REPORT INDICATION: TACHYCARDIA COMPARISON: December 26, 2018 TECHNIQUE: Single frontal view of the chest. IMPRESSION:Lungs and pleura: Small moderate left effusion. Associated relaxation atelectasis. No lobar consolidation.Heart and mediastinum: Normal heart size. Stable surgical changes.Osseous structures: No acute abnormality.Other: None. Signed: JR Bill Robert MDReport Verified Date/Time: 03/25/2019 12:17:01 Re ading Location: [facility] Radiology Reading Room [facility] (BNP)2019-03-25 12:11:00 Test Item Value Reference Range Interpretation Comments BNP (test code = 34006-0) 403 pg/mL 0-100 H Lab Interpretation (test code = Abnormal 80068-7) [facility] CaliforniaTroponin [id number] 12:11:00 Test Item Value Reference Range Interpretation Comments Troponin I (test code = 0.03 ng/mL 0-0.03 79698-2) SCOTT (test code = SCOTT) Troponin I (TnI) levels must be interpreted [...] acidosis, acute neurological disease, and persistent tachyarrhythmia. Lab Interpretation (test Normal code = 72985-9) [facility] CaliforniaB-TYPE NATRIURETIC FACTOR (BNP)2019-03-25 12:11:00 Test Item Value Reference Range Interpretation Comments B-TYPE NATRIURETIC PEPTIDE (BEAKER) 403 pg/mL 0-100 H (test code = 700) TROPONIN [id number] 12:11:00 Test Item Value Reference Range Interpretation Comments TROPONIN I (BEAKER) (test code = 0.03 ng/mL 0.00-0.03 397) Troponin I (TnI) levels must be interpreted [...] failure, acidosis, acute neurological disease, and persistent tachyarrhythmia.BASIC METABOLIC [id number] 12:04:00 Test Item Value Reference Range Interpretation Comments SODIUM (BEAKER) 140 meq/L 136-145 (test code = 381) POTASSIUM (BEAKER) 4.6 meq/L 3.5-5.1 Specimen slightly (test code = 379) hemolyzed CHLORIDE (BEAKER) 106 meq/L 98-107 (test code = 382) CO2 (BEAKER) (test 24 meq/L 22-29 code = 355) BLOOD UREA NITROGEN 16 mg/dL 7-21 (BEAKER) (test code = 354) CREATININE (BEAKER) 1.54 mg/dL 0.57-1.25 H Specimen slightly (test code = 358) hemolyzed GLUCOSE RANDOM 116 mg/dL 70-105 H (BEAKER) (test code = 652) CALCIUM (BEAKER) 8.8 mg/dL 8.4-10.2 (test code = 697) EGFR (BEAKER) (test 45 mL/min/1.73 ESTIMA FABRIZIO GFR IS code = 1092) sq m NOT ACCURATE CREATININE CLEARANCE IN PREDICTING GLOMERULAR FILTRATION RATE . ESTIMATED GFR I S NOT APPLICABLE FOR DIALYSIS PATIEN TS. CBC W/PLT COUNT & AUTO [id number] 11:48:00 Test Item Value Reference Range Interpretation Comments WHITE BLOOD CELL COUNT (BEAKER) 8.6 K/ L 3.5-10.5 (test code = 775) RED BLOOD CELL COUNT (BEAKER) 4.43 M/ L 4.63-6.08 L (test code = 761) HEMOGLOBIN (BEAKER) (test code = 11.1 GM/DL 13.7-17.5 L 410) HEMATOCRIT (BEAKER) (test code = 35.7 % 40.1-51.0 L 411) MEAN CORPUSCULAR VOLUME (BEAKER) 80.6 fL 79.0-92.2 (test code = 753) MEAN CORPUSCULAR HEMOGLOBIN 25.1 pg 25.7-32.2 L (BEAKER) (test code = 751) MEAN CORPUSCULAR HEMOGLOBIN CONC 31.1 GM/DL 32.3-36.5 L (BEAKER) (test code = 752) RED CELL DISTRIBUTION WIDTH 20.7 % 11.6-14.4 H (BEAKER) (test code = 412) PLATELET COUNT (BEAKER) (test 259 K/CU MM 150-450 code = 756) MEAN PLATELET VOLUME (BEAKER) 11.4 fL 9.4-12.4 (test code = 754) NUCLEATED RED BLOOD CELLS 0 /100 WBC 0-0 (BEAKER) (test code = 413) NEUTROPHILS RELATIVE PERCENT 77 % (BEAKER) (test code = 429) LYMPHOCYTES RELATIVE PERCENT 10 % (BEAKER) (test code = 430) MONOCYTES RELATIVE PERCENT 11 % (BEAKER) (test code = 431) EOSINOPHILS RELATIVE PERCENT 1 % (BEAKER) (test code = 432) BASOPHILS RELATIVE PERCENT 1 % (BEAKER) (test code = 437) NEUTROPHILS ABSOLUTE COUNT 6.59 K/ L 1.78-5.38 H (BEAKER) (test code = 670) LYMPHOCYTES ABSOLUTE COUNT 0.87 K/ L 1.32-3.57 L (BEAKER) (test code = 414) MONOCYTES ABSOLUTE COUNT (BEAKER) 0.93 K/ L 0.30-0.82 H (test code = 415) EOSINOPHILS ABSOLUTE COUNT 0.08 K/ L 0.04-0.54 (BEAKER) (test code = 416) BASOPHILS ABSOLUTE COUNT (BEAKER) 0.06 K/ L 0.01-0.08 (test code = 417) IMMATURE GRANULOCYTES-RELATIVE 1 % 0-1 PERCENT (BEAKER) (test code = 2801) CHEM [id number] 08:42:003.3[facility]annCHEM AACID5557-08-11 08:42:002.3 [facility] MwybqrnDJSPOJTFITFX6731-65-04 08:42:006.4[facility]annELECTROLYTES 2019-03-13 08:42:93444Bwwzfavb MfzbvicSRLFPQFPEFZK8109-63-43 08:42:0036[facility] QccdobwURSOJGZNHTKM7330-50-23 08:42:001.51[facility] PmbkhymSUWHVDALBLXF1123-57-43 08:42:08758Lmxafaka ZakbmucNBSDOIMYTGSP9010-19-72 08:42:004.4[facility] YSLVYNNOHFJE1549-54-45 08:42:39952Ndlacnrk PjwpdzyBHIESFVKODYK6517-72-29 08:42:0032[facility] QxtyxrfENOHIKYIGBOM5483-87-51 08:42:008.6[facility] JPTABQTTMYGW6724-55-89 08:42:0045[facility] JrwodtsFGWUJOEUSK1641-33-62 08:42:00 77.9[facility] HdspsptVTVKXDSDAR0592-07-22 08:42:009.7[facility]annHEMATOLOGY 2019-03-13 08:42:0012.1[facility] OpudogsHEAZKPOHCU8349-85-91 08:42:000.3[facility] VvawhweKBMVMMZZQW4696-46-90 08:42:005.0[facility] PoyexbsQMJGDLVIUG4560-42-91 08:42:000.6[facility] UmpmsqyAYVAAHBZVU1585-53-58 08:42:000.8[facility] TEEONBIDDB0850-96-51 08:42:001+ *ABN*(03/13/19 3:42 AM)[facility]annHEMATOLOGY 2019-03-13 08:42:006.4[facility] YxazkkaAIWPSTITWZ0290-89-71 08:42:004.45[facility] SdmhoaiWNFAZJRXXG8537-26-23 08:42:0011.4[facility] EtnbdfbZHKASATKPQ6092-76-47 08:42:0034.4[facility] GfwifxhSFIWDAPJCB6776-21-06 08:42:0077.3[facility] JTLCTLMINB6057-40-75 08:42:00 Test Item Value Reference Range Interpretation Comments MCH (test code = MCH) 25.6 pg 27.0-31.0 [facility] NwafkvhYFFHXICMIE1210-74-55 08:42:0033.1[facility]annHEMATOLOGY 2019-03-13 08:42:0020.7[facility] SywuixxEUPVUFMPQB2465-50-48 08:42:05290Kwaxxdcs PqrhwyzXMSDQCOMCD6935-73-52 08:42:008.5[facility] HermannCHEM HWYCQ7640-14-85 08:42:003.3[facility] HermannCHEM RVNTU3456-13-14 08:42:002.3[facility] HQLTMQCOMFSW7733-82-72 08:42:006.4[facility] ZcskjpjMDPWJTJQGFMF6743-13-94 08:42:47058Jciwutsy WgkctikXRAUJVSHJDWB5578-74-53 08:42:0036[facility] BPINUCVIIUJR2975-55-57 08:42:001.51[facility] LfgcqmcYADAPOTYTRHO0549-16-17 08:42:14360Ruvhbadt ZnoeujmFDCTRUXGVFJM3837-02-05 08:42:004.4[facility] YUWXEJISXKPU4697-65-03 08:42:93571Brcquuni NqgirowWMKIXYRZNTWP2562-44-73 08:42:0032[facility] RvfihlmVQCLNGICOWWW7493-94-28 08:42:008.6[facility] DJLMRNWDLSOR7142-14-59 08:42:0045[facility] FapncukTVDYSUIOYQ6077-63-35 08:42:00 77.9[facility] VctjulsYCLRDFQNWL2510-90-23 08:42:009.7[facility]annHEMATOLOGY 2019-03-13 08:42:0012.1[facility] GumithyGLWWGHTLFY7298-06-45 08:42:000.3[facility] QtqutyeTMZRTJTMHL5472-68-65 08:42:005.0[facility] DzqiqepHJIGKLSNIC7361-22-64 08:42:000.6[facility] KzgadcyLQOHFOYLYW5637-42-89 08:42:000.8[facility] TIFQUUHWSH2099-76-04 08:42:001+ *ABN*(03/13/19 3:42 AM)[facility]annHEMATOLOGY 2019-03-13 08:42:006.4[facility] OftrbcnOOMHGKWRNA1718-61-47 08:42:004.45[facility] FwpsuqjVJUSNMNUIC7184-71-21 08:42:0011.4[facility] SndhpygKZVNTBQJXJ6397-78-30 08:42:0034.4[facility] IkzawmgLVJOLQRDBT5600-60-63 08:42:0077.3[facility] YKHQLHMPEF2967-65-20 08:42:00 Test Item Value Reference Range Interpretation Comments MCH (test code = MCH) 25.6 pg 27.0-31.0 [facility] UahzpnwYPTGWADVKZ8601-51-28 08:42:0033.1[facility]annHEMATOLOGY 2019-03-13 08:42:0020.7[facility] LqntjdyNXOCUWDVZD6169-71-55 08:42:20931Wkkbdxvi RsdqkvqCCLMCRMUTO5855-00-64 08:42:008.5[facility] HermannCHEM IKBMN1972-78-34 10:23:003.7[facility] HermannCHEM JXMUR9072-15-38 10:23:002.3[facility] DZSBOPZKUQCH8060-39-26 10:23:0011.4[facility] HcpjxakKTGRGUMSGKBN6429-61-80 10:23:07243Zlsosbmm NnpjfsgNQLGWBGVAKJL2163-71-29 10:23:0034[facility] QFFGXMIUJQJR2979-59-40 10:23:001.36[facility] WssyxirNCZLVSAYALHC0395-25-72 10:23:11004Nayrxihg HklffwaFCCQPNFGZGZG8074-23-73 10:23:004.4[facility] PNOIFEHPWVAR8855-24-23 10:23:63590Qflfjxkg MzlmbbzDCAVNZSSESSX9976-28-75 10:23:0031[facility] DmbyxupPLBLIGEWJPSN9296-15-71 10:23:008.7[facility] ERFWAHBULEHC5353-91-49 10:23:0052[facility] KfrykrsOFICAVLPQP7287-79-46 10:23:00 82.1[facility] EuftnibBPTIHQNOPO2519-71-89 10:23:007.5[facility]annHEMATOLOGY 2019-03-12 10:23:0010.2[facility] GizyzjbHVIJZNGMUR0192-17-37 10:23:000.1[facility] HuwmlpiFALQKGNVBI6607-43-66 10:23:000.1[facility] MwaevwgIAXDBYAWNB5250-78-42 10:23:007.1[facility] UmzoaxtZXKZXHEMEL8600-13-84 10:23:000.7[facility] HJYYDPQQBR9406-17-36 10:23:000.9[facility] EjkrdlcPUZDOICRIR7574-75-31 10:23:001+ *ABN*(03/12/19 5:23 AM)[facility] JwzbdajZGDNJFAAWL8213-74-89 10:23:008.7[facility] NrhfhckVYTLNEHIQO8847-40-38 10:23:004.52[facility] FyfmxqpGXSIPOYCAO6901-71-98 10:23:0011.6[facility] CyinicjEAZARCWYYF4043-38-25 10:23:0034.8[facility] JKKOXKVEWY8057-82-17 10:23:0077.0[facility] WqvbzcqGHUGSVXIFS7453-32-72 10:23:00 Test Item Value Reference Range Interpretation Comments MCH (test code = MCH) 25.6 pg 27.0-31.0 [facility] HalukodHEFEXSAAWR1606-81-22 10:23:0033.3[facility]annHEMATOLOGY 2019-03-12 10:23:0020.6[facility] PkurfuzPJPAEBXMCI7302-98-44 10:23:06425Hbvnrlag PnxbkroVIWLGLCWJU7586-54-49 10:23:008.6[facility] HermannCHEM EAZJV1178-95-49 10:23:003.7[facility] HermannCHEM PKCBA4159-18-70 10:23:002.3[facility] BDRBZGCOYUOE2482-19-78 10:23:0011.4[facility] AgvohjnQZGCLMYZZHQQ9476-42-82 10:23:44662Xnnkefqr VpopupwQHSLWEPLZBOO6578-71-37 10:23:0034[facility] BFEMXWUHRYQS2179-05-90 10:23:001.36[facility] IxcxpwwGDENHMPNOVPE9367-98-14 10:23:88335Ieymjtxr YfverlcWVUNQNETBKXY8901-48-23 10:23:004.4[facility] OPUICQDMXTOU8499-56-18 10:23:19475Joycuacx YnuasubIHTROYGHRNBW3088-56-87 10:23:0031[facility] LvndxjqDRSPTXTMTNAK5517-20-60 10:23:008.7[facility] SNCJTSVLEOHR2883-45-17 10:23:0052[facility] ToptfuuOOZXKUOBAL1872-00-09 10:23:00 82.1[facility] GeugajrKQOOLYCCNJ2111-26-04 10:23:007.5[facility]annHEMATOLOGY 2019-03-12 10:23:0010.2[facility] ZanwpmrLUFDMFMJHN9188-75-12 10:23:000.1[facility] WovjruaZBTMCSPOZK6067-76-64 10:23:000.1[facility] IzjwghzWCQHIHLDGV6507-50-65 10:23:007.1[facility] KjgqjamIJOQQKCPFV2892-87-10 10:23:000.7[facility] MYRLUSGMMW4853-21-12 10:23:000.9[facility] UztyphuUFHSYDCTLS2663-86-34 10:23:001+ *ABN*(03/12/19 5:23 AM)[facility] DgsczmeMXYDMUGTXO7087-03-46 10:23:008.7[facility] EpjlgvwYEVSMFSEBB8422-68-34 10:23:004.52[facility] LbpbusuYPIBTYCVMK1050-20-07 10:23:0011.6[facility] HcgosgcLMKUYLGZXB3901-73-74 10:23:0034.8[facility] ARIOBOODKQ4611-11-01 10:23:0077.0[facility] PowrvgpKSNYNUEFYM7635-47-24 10:23:00 Test Item Value Reference Range Interpretation Comments MCH (test code = MCH) 25.6 pg 27.0-31.0 [facility] CjgtaqnYFGXKXCYJL7869-45-12 10:23:0033.3[facility]annHEMATOLOGY 2019-03-12 10:23:0020.6[facility] YkwhnejHOKNZPHNBE7281-76-17 10:23:96487Aicdfbtz XtdgpdeVBSCLUIJDP5719-09-02 10:23:008.6[facility] HermannCHEM XGQAN5402-95-65 23:33:04488Ubtbiqeh HermannCHEM FBJIV3029-60-60 23:33:0033[facility] HermannCHEM PONGJ0095-64-71 23:33:001.46[facility]annCHEM WJTSN0260-30-01 23:33:14095 [facility]annCHEM ZYJJT4119-93-73 23:33:003.9[facility]annCHEM PANEL 2019-03-11 23:33:31363Pleruktp HermannCHEM EDPZE1585-24-80 23:33:0028[facility]annCHEM LLQKM7962-80-27 23:33:008.8[facility] HermannCHEM OAYRS4705-75-92 23:33:0011.9[facility]annCHEM YILDK1234-60-49 23:33:0047[facility]annCHEM SYQNS1139-15-03 23:33:60323Trsrxixt HermannCHEM RAIBC8739-87-41 23:33:0033 [facility]CHE[facility] ZVUNW4228-61-09 23:33:001.46[facility]annCHEM PANEL 2019-03-11 23:33:21505Lrrzbxoy HermannCHEM OHPJE3876-89-16 23:33:003.9[facility]annCHEM RWHEU9364-45-96 23:33:87804Jnffwkmw HermannCHEM NLCPH6461-68-33 23:33:0028[facility]annCHEM EDCQX9026-01-72 23:33:008.8[facility] HermannCHEM SRLBA9285-66-86 23:33:0011.9[facility] HermannCHEM NGBIA2742-70-57 23:33[facility]0047 [facility]GXFISSHT3821-[facility] 19:00:00 Test Item Value Reference Range Interpretation Comments PTT (test code = PTT) 64.3 s 22.9-35.8 [facility]EyuwhapDZVZRAKSGT9707-19-73 19:00:00 Test Item Value Reference Range Interpretation Comments PTT (test code = PTT) 64.3 s 22.9-35.8 [facility] AllenKsriolfTOAXACWRWR2396-83-77 11:27:00 Test Item Value Reference Range Interpretation Comments PT (test code = PT) 14.1 s 12.0-14.7 [facility] AllenZvjemuaAQJJLVACVM9101-58-37 11:27:00 Test Item Value Reference Range Interpretation Comments INR (test code = INR) 1.11 1 0.85-1.17 [facility] AllenBozdjlzZHVXNUNEBV4786-57-42 11:27:00 Test Item Value Reference Range Interpretation Comments PTT (test code = PTT) 96.8 s 22.9-35.8 [facility] AllenIppjdmmQVGNDNWFQU0823-56-27 11:27:00 Test Item Value Reference Range Interpretation Comments PT (test code = PT) 14.1 s 12.0-14.7 [facility] AllenTcbwizeTAHEVOYDLI8989-36-27 11:27:00 Test Item Value Reference Range Interpretation Comments INR (test code = INR) 1.11 1 0.85-1.17 [facility] AllenPocjszjGIPYFFPHNB0330-20-96 11:27:00 Test Item Value Reference Range Interpretation Comments PTT (test code = PTT) 96.8 s 22.9-35.8 [facility] HHFUMGW7903-74-64 05:55:000.03[facility] HermannCHEM PANEL 2019-03-11 05:55:002.4[facility] HermannCHEM ICGOW7962-11-70 05:55:002.8[facility] XwnghcgGZLWMIQFTN1459-16-57 05:55:00 Test Item Value Reference Range Interpretation Comments PTT (test code = PTT) 73.4 s 22.9-35.8 [facility] TuigqqiJHBWRALENJ2757-66-28 05:55:0089.9[facility] HermannHEMATOLOGY 2019-03-11 05:55:007.4[facility] EbzmekjLAMENZDQWG8018-97-14 05:55:002.4[facility] RwrujwjHYLSDWAJPQ5707-53-81 05:55:000.3[facility] RdyxnyuFUTDLGPDPD6782-95-87 05:55:005.0[facility] HlrehgwTNMKGNPKOZ4640-87-86 05:55:000.4[facility] NNSHXHRVYO7597-11-82 05:55:000.1[facility] UvqqgysDAYXBNJENY1543-82-26 05:55:005.6 [facility] XrvtlukIPAEJTYLAS6338-33-92 05:55:004.65[facility] HermannHEMATOLOGY 2019-03-11 05:55:0011.7[facility] LkjefmtOIEBSRGOQI9024-83-86 05:55:0036.8[facility] AgionrbTVQOQWRMHO2603-92-60 05:55:0079.0[facility] NuyoldmQHQBVVKVLM2896-14-84 05:55:00 Test Item Value Reference Range Interpretation Comments MCH (test code = MCH) 25.2 pg 27.0-31.0 [facility] GyybwmlZFHTMCHDKH4765-52-54 05:55:0031.9[facility] HermannHEMATOLOGY 2019-03-11 05:55:0020.4[facility] MbfstviDPXJZTIEJT9192-46-92 05:55:29926Bwyrsdcm TtbtzsiFLHHOGYRGS2519-79-89 05:55:009.3[facility] HermannCARDIAC THGTBSS8376-05-40 05:55:000.03[facility] HermannCHEM QBCVI6081-31-90 05:55:002.4[facility] CHEM ESXMR4242-96-35 05:55:002.8[facility] KcjfabhDVVMXACMHG6822-26-78 05:55:00 Test Item Value Reference Range Interpretation Comments PTT (test code = PTT) 73.4 s 22.9-35.8 [facility] IjjplgmEDNRCTQMKJ0883-69-34 05:55:0089.9[facility] HermannHEMATOLOGY 2019-03-11 05:55:007.4[facility] DrjngpvEAVAAQLTRR1356-00-48 05:55:002.4[facility] HrkndpdNFZJUWGCGS5966-38-83 05:55:000.3[facility] JuxyelsIFECSDEHGZ8451-65-59 05:55:005.0[facility] JnapgshJBCIQGXALF2120-16-06 05:55:000.4[facility] TKMWCIHIBR9130-51-14 05:55:000.1[facility] LfcwndrABRVJWJMBF8230-58-36 05:55:005.6 [facility] QwklorpGSWYYZLCRW1608-90-80 05:55:004.65[facility]annHEMATOLOGY 2019-03-11 05:55:0011.7[facility] TnehednJOIGFKYCLQ5295-23-53 05:55:0036.8[facility] AwsbhyqHBIRXWSWCF3304-04-64 05:55:0079.0[facility] ZnhvqbdEYYRYQOOSW6661-16-91 05:55:00 Test Item Value Reference Range Interpretation Comments MCH (test code = MCH) 25.2 pg 27.0-31.0 [facility] JfhkeqzHNLSOIGVEJ3435-93-26 05:55:0031.9[facility] HermannHEMATOLOGY 2019-03-11 05:55:0020.4[facility] JdblhjnDJIJFPKANM1393-86-10 05:55:31630Ujhachbv SmgorgbHJGIGNTVZQ2950-30-39 05:55:009.3[facility] HermannCARDIAC WDJCDPF2956-53-04 16:36:000.03[facility] HermannCARDIAC LYSDIQR6739-22-94 16:36:000.03[facility] YhnahixNNVDPNGMQU4338-74-55 14:29:00 Test Item Value Reference Range Interpretation Comments INR (test code = INR) 1.15 1 0.85-1.17 [facility] OdjjbtjSKVCGOZDNS2645-29-44 14:29:00 Test Item Value Reference Range Interpretation Comments PT (test code = PT) 14.5 s 12.0-14.7 [facility] QsplspvZZSHGMJRGL9719-32-09 14:29:000.2[facility] HermannHEMATOLOGY 2019-03-10 14:29:000.0[facility] DqnrworSOPZSECZDY2199-59-53 14:29:003.0[facility] HmmyhzhAGJBMCLWIU2054-64-16 14:29:007.0[facility] VpljoriBAWHIOYMXC2207-84-36 14:29:00See Note (03/10/19 9:29 AM)[facility]IFJVVZIGDR9080-54-[facility] 14:29:00 Normal (03/10/19 9:29 AM)[facility]evilleWngbzkwWKFTWDNIGA7890-55-06 14:29:001+ *ABN*(03/10/19 9:29 AM)[facility]evilleVlusnhoNOKKOOBPRU2865-45-47 14:29:001+ (03/10/19 9:29 AM)[facility] RhrueonPWOCYATTRT0445-74-83 14:29:00Occasional *ABN*(03/10/19 9:29 AM)[facility]evilleYckcnagOIFCDIDTMG5697-26-37 14:29:00 Test Item Value Reference Range Interpretation Comments INR (test code = INR) 1.15 1 0.85-1.17 [facility]evilleWbskjjjCVACMWSPLI8098-85-86 14:29:00 Test Item Value Reference Range Interpretation Comments PT (test code = PT) 14.5 s 12.0-14.7 [facility] QntcugyNQLBSMBXAY2938-65-97 14:29:000.2[facility] HermannHEMATOLOGY 2019-03-10 14:29:000.0[facility] ByehiaiTMPLNMBQQR0887-84-42 14:29:003.0[facility] DcixykqWJDHUIGFGL9085-61-85 14:29:007.0[facility] AgjooagWHRVFLECYJ8752-69-94 14:29:00See Note (03/10/19 9:29 AM)[facility] VorxcllHMWOTSVLTX4075-36-07 14:29:00 Normal (03/10/19 9:29 AM)[facility] OzaiyeoIXUSDYTUUM2752-89-95 14:29:001+ *ABN*(03/10/19 9:29 AM)[facility] LehrifoUBJJLTFDQJ4384-55-24 14:29:001+ (03/10/19 9:29 AM)[facility] IjdzpkbNXMOBKXRUJ4395-25-27 14:29:00Occasional *ABN*(03/10/19 9:29 AM)[facility] HermannCARDIAC MEKRZTW7880-73-96 10:33:000.05[facility] CARDIAC TQPFBAX2416-78-48 10:33:000.05[facility] HermannCHEM ORAFM2049-01-29 10:30:001.1[facility] HermannCHEM IZYGQ5766-62-34 10:30:001.1[facility] BACTERIAL - SAMXXYXS3267-94-54 06:57:00Positive 1*ABN*(03/10/19 1:57 AM)[facility] HermannCARDIAC LURIRMY5545-90-64 06:57:31404Qdrxtykb HermannCHEM SEJYW0707-52-41 06:57:006.5[facility] HermannCHEM LCUGW1641-56-58 06:57:002.9[facility] HermannCHEM IABZS7765-79-11 06:57:0019[facility] HermannCHEM IMHLY4977-72-35 06:57:009 [facility]annCHEM KWGOK9704-97-51 06:57:0064[facility] HermannCHEM PANEL 2019-03-10 06:57:000.4[facility] HermannCHEM DDHNW7135-08-50 06:57:00 Test Item Value Reference Range Interpretation Comments B/C Ratio (test code = B/C Ratio) 22 1 6-25 [facility] HermannCHEM RXSOW2686-47-49 06:57:003.6[facility] HermannCHEM PANEL 2019-03-10 06:57:00 Test Item Value Reference Range Interpretation Comments A/G Ratio (test code = A/G Ratio) 0.8 1 0.7-1.6 [facility] HermannCHEM DOUOK2302-87-42 06:57:002.1[facility] HermannHEMATOLOGY 2019-03-10 06:57:00 Test Item Value Reference Range Interpretation Comments PT (test code = PT) 14.9 s 12.0-14.7 [facility] UwlklmkAOMJPZPKKQ8829-69-52 06:57:00 Test Item Value Reference Range Interpretation Comments INR (test code = INR) 1.19 1 0.85-1.17 [facility] QpebnfrHSVWUXEUUE8322-37-01 06:57:003.5[facility] HermannHEMATOLOGY 2019-03-10 06:57:000.2[facility] PneqbwtJIRTDYHINS8942-43-34 06:57:000.1[facility] IglegsxENVGSL1147-32-41 06:57:89197Okwcexzv NedcsfoYEYOMT6112-50-94 06:57:0093 [facility] AaxnikoSIWWIS7735-27-62 06:57:0055[facility] XxpveiuCMPJYS1965-10-26 06:57:00 Test Item Value Reference Range Interpretation Comments CHD Risk (test code = CHD Risk) 2.07 1 4.00-7.30 [facility] WqgkvenWZFLQJ1955-99-80 06:57:0040[facility] GkbhyfqQYYCTN8929-16-38 06:57:00 Test Item Value Reference Range Interpretation Comments VLDL (test code = VLDL) 19 1 [facility] HermannSPECIAL VAFLQOZQP4419-74-96 06:57:006.7[facility] HermannBACTERIAL - VSGGHGEK2604-75-29 06:57:00Positive 1*ABN*(03/10/19 1:57 AM)[facility] [place] CARDIAC UMPTEDZ5157-36-90 06:57:52773Agaswlwk HermannCHEM XXXVS9057-76-74 06:57:006.5[facility] HermannCHEM KQBQC6153-90-94 06:57:002.9[facility] HermannCHEM SRAJH8897-23-08 06:57:0019[facility] HermannCHEM SNYUU2407-24-42 06:57:009[facility] HermannCHEM AOXHX8702-50-77 06:57:0064[facility] HermannCHEM FTIBU1431-84-69 06:57:000.4[facility] HermannCHEM BQXHR2063-44-28 06:57:00 Test Item Value Reference Range Interpretation Comments B/C Ratio (test code = B/C Ratio) 22 1 6-25 [facility] HermannCHEM KGWNT2581-07-01 06:57:003.6[facility] HermannCHEM PANEL 2019-03-10 06:57:00 Test Item Value Reference Range Interpretation Comments A/G Ratio (test code = A/G Ratio) 0.8 1 0.7-1.6 [facility] HermannCHEM UMZIH8915-95-77 06:57:002.1[facility] HermannHEMATOLOGY 2019-03-10 06:57:00 Test Item Value Reference Range Interpretation Comments PT (test code = PT) 14.9 s 12.0-14.7 [facility]evilleFotoebtFNKZDVOQTJ2026-48-26 06:57:00 Test Item Value Reference Range Interpretation Comments INR (test code = INR) 1.19 1 0.85-1.17 [facility]evilleLubztwzPLGVQVCSRK1298-43-73 06:57:003.5[facility] HermannHEMATOLOGY 2019-03-10 06:57:000.2[facility] EwzshgkEMXHPTIZNL3346-04-30 06:57:000.1[facility] RlbspqsMUABSF3892-31-00 06:57:85162Whzswjdp CgmcmzrPPDKUE4917-50-89 06:57:0093 [facility] NmpvlftKXOXPW1407-55-85 06:57:0055[facility] RhvroysVAODIN6818-31-22 06:57:00 Test Item Value Reference Range Interpretation Comments CHD Risk (test code = CHD Risk) 2.07 1 4.00-7.30 [facility] JqyqoslQJOFLQ1076-60-13 06:57:0040[facility] TwehqunNSIJFR3407-54-93 06:57:00 Test Item Value Reference Range Interpretation Comments VLDL (test code = VLDL) 19 1 [facility] XFWPRBDAI0021-59-01 06:57:006.7[facility] HospitalannBASIC METABOLIC KJWZB8175-17-33 21:47:00 Test Item Value Reference Range Interpretation Comments SODIUM (test code = NA) 142 mmol/L 134-147 N POTASSIUM (test code = K) 3.7 mmol/L 3.4-5.0 N CHLORIDE (test code = CL) 102 mmol/L 100-108 N CARBON DIOXIDE (test code = 29 mmol/L 21-32 N CO2) ANION GAP (test code = GAP) 11.0 GAP calc 4.0-15.0 N GLUCOSE (test code = GLU) 190 MG/DL 70-110 H BLOOD UREA NITROGEN (test code 33 MG/DL 7-18 H = BUN) GLOMERULAR FILTRATION RATE 49 estGFR >60 L (test code = GFR) CREATININE (test code = CREAT) 1.5 MG/DL 0.8-1.3 H CALCIUM (test code = CA) 8.0 MG/DL 8.5-10.1 L RULE OUT OK CHKBJFI3053-34-53 21:47:00 Test Item Value Reference Range Interpretation Comments CREATINE KINASE 37 Unit/L 26-192 N (CK) (test code = CK) TROPONIN-I (test 0.046 NG/ML 0.000-0.045 H Negative: < /= 0.045 code = TROPI) Positive: >/= 0.046 Correlation wit h serial results, other cardiac markers, and cl inical findings is nec essary to determine th e clinical signi ficance of this result. Quantitative re sults using different methodologies s hould not be compared to one another as nume rical results may lanny yby method. - XR CHEST 1 [id number] 21:47:00 Name: HEATHER MOORE [facility] : 1945 Age/S: 73 / M [address] Unit #: [id number] Loc: [place] [address] Phys: Leonid Delarosa DO Acct: [id number] Dis Date: Status: REG ER PHONE #: [phone] Exam Date: 03/09/2019 2025 FAX #: Reason: palpitations EXAMS: CPT: [id number] XR CHEST 1 V 01200 Fluoro Time: DAP (Gy m2): Air Kerma (mGy): Site ID: [id number] HISTORY: Tachycardia, palpitations COMPARISON: Chest x-ray June 17, 2017 FINDINGS: Stable emphysema and chronic left basilar scarring/pleural thickening. Heartsize and mediastinal contours are within normal limits, with prior CABG. No acute osseous finding. IMPRESSION: Stable emphysema and chronic left basilar scarring/pleural thickening at 2147 Reported and signed by: Mouna Chavez M.D. CC: Kevin Arana MD; Leonid Delarosa DO PAGE 1 Signed Report Name: HEATHER MOORE : 1945 Age/S: 73 / M [address] Unit #: [id number] Loc: [facility] [place] [address] Phys: Leonid Delarosa DO Acct: [id number] Dis Date: Status: REG ER PHONE #: [phone] Exam Date: 03/09/20192136 FAX #: Reason: palpitations EXAMS: CPT: [id number] XR CHEST 1 V 77137 Fluoro Time: DAP (Gy m2): Air Kerma (mGy): <Continued> Technologist: Nikkie Pfeiffer RT(R)(CT)(MRI) Trnscb Date/Time: 03/09/2019 (2146) [id number] Orig Print D/T: S: 03/09/2019 (2149) PAGE2 Signed ReportBASIC METABOLIC [id number] 21:28:00 Test Item Value Reference Range Interpretation Comments SODIUM (test code = NA) 142 mmol/L 134-147 N POTASSIUM (test code = K) 3.7 mmol/L 3.4-5.0 N CHLORIDE (test code = CL) 102 mmol/L 100-108 N CARBON DIOXIDE (test code = 29 mmol/L 21-32 N CO2) ANION GAP (test code = GAP) 11.0 GAP calc 4.0-15.0 N GLUCOSE (test code = GLU) 190 MG/DL 70-110 H BLOOD UREA NITROGEN (test code 33 MG/DL 7-18 H = BUN) GLOMERULAR FILTRATION RATE estGFR >60 (test code = GFR) CREATININE (test code = CREAT) MG/DL 0.8-1.3 CALCIUM (test code = CA) 8.0 MG/DL 8.5-10.1 L RULE OUT OK [id number] 21:28:00 Test Item Value Reference Range Interpretation Comments CREATINE KINASE (CK) (test code = CK) Unit/L 26-192 TROPONIN-I (test code = TROPI) NG/ML 0.000-0.045 CBC W/AUTO [id number] 21:10:00 Test Item Value Reference Range Interpretation Comments WHITE BLOOD CELL (test code = 5.9 K/mm3 3.5-11.0 N WBC) RED BLOOD CELL (test code = RBC) 4.72 M/mm3 4.70-6.10 N HEMOGLOBIN (test code = HGB) 12.0 G/DL 12.3-15.9 L HEMATOCRIT (test code = HCT) 39.6 % 35.8-46.7 N MEAN CELL VOLUME (test code = 83.9 Fl 86.3-98.9 L MCV) MEAN CELL HGB (test code = MCH) 25.4 pg 28.9-34.4 L MEAN CELL HGB CONCETRATION (test 30.3 G/DL 32.1-34.5 L code = MCHC) RED CELL DISTRIBUTION WIDTH (test 21.0 SD 11.5-14.5 H code = RDW) PLATELET COUNT (test code = PLT) 100.0 K/mm3 150-450 L MEAN PLATELET VOLUME (test code = 10.60 fL 7.0-9.6 H MPV) NEUTROPHIL % (test code = NT%) 70.7 % 40-76 N LYMPHOCYTE % (test code = LY%) 16.8 % 20.5-51.1 L MONOCYTE % (test code = MO%) 9.5 % 1.7-9.3 H EOSINOPHIL % (test code = EO%) 2.7 % 0.0-6.0 N BASOPHIL % (test code = BA%) 0.3 % 0.0-2.0 N NEUTROPHIL # (test code = NT#) 4.18 K/mm3 1.8-7.6 N LYMPHOCYTE # (test code = LY#) 1.0 K/mm3 0.6-3.0 N MONOCYTE # (test code = MO#) 0.6 K/mm3 0.2-1.5 N EOSINOPHIL # (test code = EO#) 0.2 K/mm3 0.0-0.4 N BASOPHIL # (test code = BA#) 0.0 K/mm3 0.0-0.2 N MANUAL DIFF REQUIRED (test code = NO DIFF/SCN CRITERIA MDIFF) POCT-GLUCOSE [id number] 12:13:00 Test Item Value Reference Range Interpretation Comments POC-GLUCOSE METER 165 mg/dL 70-110 H [facility] (test code = [address] [place] [address]) [id number] 08:41:00 Test Item Value Reference Range Interpretation Comments MAGNESIUM (BEAKER) (test code = 2.0 mg/dL 1.6-2.6 627) BASIC METABOLIC [id number] 08:41:00 Test Item Value Reference Range Interpretation Comments SODIUM (BEAKER) 142 meq/L 136-145 (test code = 381) POTASSIUM (BEAKER) 4.6 meq/L 3.5-5.1 (test code = 379) CHLORIDE (BEAKER) 102 meq/L 98-107 (test code = 382) CO2 (BEAKER) (test 33 meq/L 22-29 H code = 355) BLOOD UREA NITROGEN 21 mg/dL 7-21 (BEAKER) (test code = 354) CREATININE (BEAKER) 1.30 mg/dL 0.57-1.25 H (test code = 358) GLUCOSE RANDOM 126 mg/dL 70-105 H (BEAKER) (test code = 652) CALCIUM (BEAKER) 9.3 mg/dL 8.4-10.2 (test code = 697) EGFR (BEAKER) (test 54 mL/min/1.73 ESTIMA FABRIZIO GFR IS code = 1092) sq m NOT ACCURATE CREATININE CLEARANCE IN PREDICTING GLOMERULAR FILTRATION RATE . ESTIMATED GFR I S NOT APPLICABLE FOR DIALYSIS PATIEN TS. POCT-GLUCOSE [id number] 08:04:00 Test Item Value Reference Range Interpretation Comments POC-GLUCOSE METER 103 mg/dL 70-110 TESTED AT [place] [id number] [facility] (test code = [facility] [address] [facility] 1538) [address] B-TYPE NATRIURETIC FACTOR (BNP)2019-01-01 05:26:00 Test Item Value Reference Range Interpretation Comments B-TYPE NATRIURETIC PEPTIDE 1150 pg/mL 0-100 H (BEAKER) (test code = 700) POCT-GLUCOSE [id number] 21:02:00 Test Item Value Reference Range Interpretation Comments POC-GLUCOSE METER 180 mg/dL 70-110 H TESTED AT [place] [address] ([facility]) (test code = [facility] 1538) [address] POCT-GLUCOSE [id number] 17:02:00 Test Item Value Reference Range Interpretation Comments POC-GLUCOSE METER 129 mg/dL 70-110 H TESTED AT [place] [address] (BEAKER) (test code = [address] [facility] 1538) [address] POCT-GLUCOSE [id number] 12:26:00 Test Item Value Reference Range Interpretation Comments POC-GLUCOSE METER 127 mg/dL 70-110 H TESTED AT [place] [address] (BEAKER) (test code = [address] [facility] 1538) [address] POCT-GLUCOSE [id number] 09:06:00 Test Item Value Reference Range Interpretation Comments POC-GLUCOSE METER 136 mg/dL 70-110 H TESTED AT [place] [address] (BEAKER) (test code = [address] [facility] 1538) [address] [id number] 05:33:00 Test Item Value Reference Range Interpretation Comments MAGNESIUM (BEAKER) (test code = 1.9 mg/dL 1.6-2.6 627) BASIC METABOLIC [id number] 05:33:00 Test Item Value Reference Range Interpretation Comments SODIUM (BEAKER) 140 meq/L 136-145 (test code = 381) POTASSIUM (BEAKER) 4.2 meq/L 3.5-5.1 (test code = 379) CHLORIDE (BEAKER) 103 meq/L 98-107 (test code = 382) CO2 (BEAKER) (test 31 meq/L 22-29 H code = 355) BLOOD UREA NITROGEN 23 mg/dL 7-21 H (BEAKER) (test code = 354) CREATININE (BEAKER) 1.32 mg/dL 0.57-1.25 H (test code = 358) GLUCOSE RANDOM 109 mg/dL 70-105 H (BEAKER) (test code = 652) CALCIUM (BEAKER) 8.7 mg/dL 8.4-10.2 (test code = 697) EGFR (BEAKER) (test 53 mL/min/1.73 ESTIMA FABRIZIO GFR IS code = 1092) sq m NOT ACCURATE CREATININE CLEARANCE IN PREDICTING GLOMERULAR FILTRATION RATE . ESTIMATED GFR I S NOT APPLICABLE FOR DIALYSIS PATIEN TS. POCT-GLUCOSE [id number] 21:21:00 Test Item Value Reference Range Interpretation Comments POC-GLUCOSE METER 125 mg/dL 70-110 H TESTED AT [place] [address] (BEAKER) (test code = [facility] [address] [facility] 1538) [address] POCT-GLUCOSE [id number] 17:10:00 Test Item Value Reference Range Interpretation Comments POC-GLUCOSE METER 126 mg/dL 70-110 H TESTED AT [place] [address] (BEAKER) (test code = [facility] 1538) [address] POCT-GLUCOSE [id number] 12:02:00 Test Item Value Reference Range Interpretation Comments POC-GLUCOSE METER 117 mg/dL 70-110 H [facility] AT [place] [address] [facility] (test code = [facility] 1538) [address] POCT-GLUCOSE [id number] 08:10:00 Test Item Value Reference Range Interpretation Comments POC-GLUCOSE METER 117 mg/dL 70-110 H TESTED AT [place] [address] ([facility] (test code = [facility] 1538) [address] [id number] 07:09:00 Test Item Value Reference Range Interpretation Comments MAGNESIUM (BEAKER) (test code = 1.8 mg/dL 1.6-2.6 627) BASIC METABOLIC [id number] 07:09:00 Test Item Value Reference Range Interpretation Comments SODIUM (BEAKER) 141 meq/L 136-145 (test code = 381) POTASSIUM (BEAKER) 4.2 meq/L 3.5-5.1 (test code = 379) CHLORIDE (BEAKER) 103 meq/L 98-107 (test code = 382) CO2 (BEAKER) (test 32 meq/L 22-29 H code = 355) BLOOD UREA NITROGEN 20 mg/dL 7-21 (BEAKER) (test code = 354) CREATININE (BEAKER) 1.17 mg/dL 0.57-1.25 (test code = 358) GLUCOSE RANDOM 97 mg/dL 70-105 (BEAKER) (test code = 652) CALCIUM (BEAKER) 8.7 mg/dL 8.4-10.2 (test code = 697) EGFR (BEAKER) (test 61 mL/min/1.73 ESTIMA FABRIZIO GFR IS code = 1092) sq m NOT ACCURATE CREATININE CLEARANCE IN PREDICTING GLOMERULAR FILTRATION RATE . ESTIMATED GFR I S NOT APPLICABLE FOR DIALYSIS PATIEN TS. CBC (HEMOGRAM ONLY)2018-12-30 06:44:00 Test Item Value Reference Range Interpretation Comments WHITE BLOOD CELL COUNT (BEAKER) 6.6 K/ L 3.5-10.5 (test code = 775) RED BLOOD CELL COUNT (BEAKER) 3.42 M/ L 4.63-6.08 L (test code = 761) HEMOGLOBIN (BEAKER) (test code = 8.8 GM/DL 13.7-17.5 L 410) HEMATOCRIT (BEAKER) (test code = 29.2 % 40.1-51.0 L 411) MEAN CORPUSCULAR VOLUME (BEAKER) 85.4 fL 79.0-92.2 (test code = 753) MEAN CORPUSCULAR HEMOGLOBIN 25.7 pg 25.7-32.2 (BEAKER) (test code = 751) MEAN CORPUSCULAR HEMOGLOBIN CONC 30.1 GM/DL 32.3-36.5 L (BEAKER) (test code = 752) RED CELL DISTRIBUTION WIDTH 14.9 % 11.6-14.4 H (BEAKER) (test code = 412) PLATELET COUNT (BEAKER) (test 233 K/CU MM 150-450 code = 756) MEAN PLATELET VOLUME (BEAKER) 10.6 fL 9.4-12.4 (test code = 754) NUCLEATED RED BLOOD CELLS 0 /100 WBC 0-0 (BEAKER) (test code = 413) POCT-GLUCOSE [id number] 21:42:00 Test Item Value Reference Range Interpretation Comments POC-GLUCOSE METER 137 mg/dL 70-110 H TESTED AT [place] [address] ([facility]) (test code = [place] [address]) [id number] POCT-GLUCOSE [id number] 17:22:00 Test Item Value Reference Range Interpretation Comments POC-GLUCOSE METER 168 mg/dL 70-110 H [facility] [place] [address] [facility] (test code = [place] 15[address]) [id number] POCT-GLUCOSE [id number] 12:54:00 Test Item Value Reference Range Interpretation Comments POC-GLUCOSE METER 138 mg/dL 70-110 H [facility] AT [place] [address] ([facility] (test code = [place] [address]) [id number] 05:12:00 Test Item Value Reference Range Interpretation Comments MAGNESIUM (BEAKER) (test code = 2.0 mg/dL 1.6-2.6 627) BASIC METABOLIC [id number] 05:12:00 Test Item Value Reference Range Interpretation Comments SODIUM (BEAKER) 139 meq/L 136-145 (test code = 381) POTASSIUM (BEAKER) 4.2 meq/L 3.5-5.1 (test code = 379) CHLORIDE (BEAKER) 101 meq/L 98-107 (test code = 382) CO2 (BEAKER) (test 32 meq/L 22-29 H code = 355) BLOOD UREA NITROGEN 21 mg/dL 7-21 (BEAKER) (test code = 354) CREATININE (BEAKER) 1.11 mg/dL 0.57-1.25 (test code = 358) GLUCOSE RANDOM 92 mg/dL 70-105 (BEAKER) (test code = 652) CALCIUM (BEAKER) 8.3 mg/dL 8.4-10.2 L (test code = 697) EGFR (BEAKER) (test 65 mL/min/1.73 ESTIMA FABRIZIO GFR IS code = 1092) sq m NOT ACCURATE CREATININE CLEARANCE IN PREDICTING GLOMERULAR FILTRATION RATE . ESTIMATED GFR I S NOT APPLICABLE FOR DIALYSIS PATIEN TS. BLOOD [id number] 02:00:00 Test Item Value Reference Range Interpretation Comments CULTURE (BEAKER) (test No growth in 5 days code = 1095) POCT-GLUCOSE [id number] 21:25:00 Test Item Value Reference Range Interpretation Comments POC-GLUCOSE METER 168 mg/dL 70-110 H TESTED AT [facility] (BEAKER) (test code = [place] [address]) [id number] POCT-GLUCOSE [id number] 17:16:00 Test Item Value Reference Range Interpretation Comments POC-GLUCOSE METER 136 mg/dL 70-110 H TESTED AT [facility] (BEAKER) (test code = [place] [address]) [id number] POCT-GLUCOSE [id number] 12:33:00 Test Item Value Reference Range Interpretation Comments POC-GLUCOSE METER 127 mg/dL 70-110 H TESTED AT [facility] (BEAKER) (test code = [address] [place] [address]) [id number] 06:30:00 Test Item Value Reference Range Interpretation Comments MAGNESIUM (BEAKER) (test code = 2.1 mg/dL 1.6-2.6 627) BASIC METABOLIC [id number] 06:30:00 Test Item Value Reference Range Interpretation Comments SODIUM (BEAKER) 139 meq/L 136-145 (test code = 381) POTASSIUM (BEAKER) 4.0 meq/L 3.5-5.1 (test code = 379) CHLORIDE (BEAKER) 101 meq/L 98-107 (test code = 382) CO2 (BEAKER) (test 31 meq/L 22-29 H code = 355) BLOOD UREA NITROGEN 23 mg/dL 7-21 H (BEAKER) (test code = 354) CREATININE (BEAKER) 1.27 mg/dL 0.57-1.25 H (test code = 358) GLUCOSE RANDOM 106 mg/dL 70-105 H (BEAKER) (test code = 652) CALCIUM (BEAKER) 8.5 mg/dL 8.4-10.2 (test code = 697) EGFR (BEAKER) (test 56 mL/min/1.73 ESTIMA FABRIZIO GFR IS code = 1092) sq m NOT ACCURATE CREATININE CLEARANCE IN PREDICTING GLOMERULAR FILTRATION RATE . ESTIMATED GFR I S NOT APPLICABLE FOR DIALYSIS PATIEN TS. POCT-GLUCOSE [id number] 18:40:00 Test Item Value Reference Range Interpretation Comments POC-GLUCOSE METER 151 mg/dL 70-110 H TEST[facility] AT [facility] (test code = [facility] 1538) [id number] POCT-GLUCOSE [id number] 12:32:00 Test Item Value Reference Range Interpretation Comments POC-GLUCOSE METER 145 mg/dL 70-110 H TESTED AT [place] [address] [facility] (test code = [facility] 1538) [id number] POCT-GLUCOSE [id number] 09:21:00 Test Item Value Reference Range Interpretation Comments POC-GLUCOSE METER 120 mg/dL 70-110 H TESTED AT [facility] (test code = [facility] 1538) [address] [id number] 06:50:00 Test Item Value Reference Range Interpretation Comments MAGNESIUM (BEAKER) (test code = 1.8 mg/dL 1.6-2.6 627) POCT-GLUCOSE [id number] 21:57:00 Test Item Value Reference Range Interpretation Comments POC-GLUCOSE METER 110 mg/dL 70-110 TESTED AT [facility] (BEAKER) (test code = [facility] [place] 1538) [address] POCT-GLUCOSE [id number] 17:57:00 Test Item Value Reference Range Interpretation Comments POC-GLUCOSE METER 130 mg/dL 70-110 H TESTED AT [facility] (BEAKER) (test code = [facility] [place] 1538) [address] RAD, CHEST, 1 VIEW, NON [id number] 16:41:00Reason for exam:->s/p acbShould this be performed [...] Pacheco Verified Date/Time: 12/26/2018 16:41:43 Reading Location: [facility] Radiology Reading Room SPUTUM CULTURE + GRAM [id number] 12:16:00 Test Item Value Reference Range Interpretation Comments CULTURE (BEAKER) 4+ Normal respiratory (test code = 1095) deandra present GRAM STAIN RESULT <1+ White blood cells (BEAKER) (test code = seen 1123) GRAM STAIN RESULT 0-5 epithelial cells (BEAKER) (test code = 81438) GRAM STAIN RESULT <1+ yeast (BEAKER) (test code = 24907) POCT-GLUCOSE [id number] 11:58:00 Test Item Value Reference Range Interpretation Comments POC-GLUCOSE METER 124 mg/dL 70-110 H TESTED AT [facility] (BEAKER) (test code = [facility] 1538) [address] POCT-GLUCOSE [id number] 07:27:00 Test Item Value Reference Range Interpretation Comments POC-GLUCOSE METER 140 mg/dL 70-110 H TESTED AT [place] [address] ([facility]) (test code = [facility] 1538) [address] [id number] 05:59:00 Test Item Value Reference Range Interpretation Comments MAGNESIUM ([facility]) (test code = 2.0 mg/dL 1.6-2.6 627) B-TYPE NATRIURETIC FACTOR (BNP)2018-12-26 05:58:00 Test Item Value Reference Range Interpretation Comments B-TYPE NATRIURETIC PEPTIDE 1275 pg/mL 0-100 H ([facility]) (test code = 700) POCT-GLUCOSE [id number] 21:27:00 Test Item Value Reference Range Interpretation Comments POC-GLUCOSE METER 181 mg/dL 70-110 H TESTED AT [place] [address] ([facility]) (test code = [facility] 1538) [address] POCT-GLUCOSE [id number] 17:26:00 Test Item Value Reference Range Interpretation Comments POC-GLUCOSE METER 133 mg/dL 70-110 H TESTED AT [place] [address] ([facility]) (test code = [facility] 1538) [address] POCT-GLUCOSE [id number] 12:21:00 Test Item Value Reference Range Interpretation Comments POC-GLUCOSE METER 129 mg/dL 70-110 H TESTED AT [place] [address] ([facility]) (test code = [facility] 1538) [address] RAD, CHEST, 1 VIEW, NON [id number] 10:32:00Reason for exam:->pulmonary edemaShould this be performed at the bedside?->YesFINAL REPORT AP chest HISTORY: Pulmonary edema. COMPARISON: 07/26/2018. IMPRESSION: Cardia megaly. Sternotomy. Moderate diffuse interstitial edema. Moderate effusions. Basilar atelectasis. No pneumothorax. Signed: Serjio Lawrenceeport Verified Date/Time: 12/25/2018 10:32:11 Reading Location: [facility] Radiology Reading Room POCT-GLUCOSE [id number] 07:45:00 Test Item Value Reference Range Interpretation Comments POC-GLUCOSE METER 150 mg/dL 70-110 H TESTED AT [facility] (BEAKER) (test code = [facility] [place] 1538) [address] [id number] 03:20:00 Test Item Value Reference Range Interpretation Comments MAGNESIUM (BEAKER) 2.1 mg/dL 1.6-2.6 Specimen slightly (test code = 627) hemolyzed BASIC METABOLIC [id number] 03:20:00 Test Item Value Reference Range Interpretation Comments SODIUM (BEAKER) 138 meq/L 136-145 (test code = 381) POTASSIUM (BEAKER) 4.6 meq/L 3.5-5.1 Specimen slightly (test code = 379) hemolyzed CHLORIDE (BEAKER) 100 meq/L 98-107 (test code = 382) CO2 (BEAKER) (test 32 meq/L 22-29 H code = 355) BLOOD UREA NITROGEN 28 mg/dL 7-21 H (BEAKER) (test code = 354) CREATININE (BEAKER) 1.17 mg/dL 0.57-1.25 Specimen slightly (test code = 358) hemolyzed GLUCOSE RANDOM 104 mg/dL 70-105 (BEAKER) (test code = 652) CALCIUM (BEAKER) 8.5 mg/dL 8.4-10.2 (test code = 697) EGFR (BEAKER) (test 61 mL/min/1.73 ESTIMA FABRIZIO GFR IS code = 1092) sq m NOT ACCURATE CREATININE CLEARANCE IN PREDICTING GLOMERULAR FILTRATION RATE . ESTIMATED GFR I S NOT APPLICABLE FOR DIALYSIS PATIEN TS. [id number] 03:12:00 Test Item Value Reference Range Interpretation Comments PARTIAL THROMBOPLASTIN TIME 38.2 seconds 22.5-36.0 H (BEAKER) (test code = 760) CBC W/PLT COUNT & AUTO [id number] 03:06:00 Test Item Value Reference Range Interpretation Comments WHITE BLOOD CELL COUNT (BEAKER) 8.0 K/ L 3.5-10.5 (test code = 775) RED BLOOD CELL COUNT (BEAKER) 3.28 M/ L 4.63-6.08 L (test code = 761) HEMOGLOBIN (BEAKER) (test code = 8.5 GM/DL 13.7-17.5 L 410) HEMATOCRIT (BEAKER) (test code = 27.4 % 40.1-51.0 L 411) MEAN CORPUSCULAR VOLUME (BEAKER) 83.5 fL 79.0-92.2 (test code = 753) MEAN CORPUSCULAR HEMOGLOBIN 25.9 pg 25.7-32.2 (BEAKER) (test code = 751) MEAN CORPUSCULAR HEMOGLOBIN CONC 31.0 GM/DL 32.3-36.5 L (BEAKER) (test code = 752) RED CELL DISTRIBUTION WIDTH 14.6 % 11.6-14.4 H (BEAKER) (test code = 412) PLATELET COUNT (BEAKER) (test 267 K/CU MM 150-450 code = 756) MEAN PLATELET VOLUME (BEAKER) 10.9 fL 9.4-12.4 (test code = 754) NUCLEATED RED BLOOD CELLS 0 /100 WBC 0-0 (BEAKER) (test code = 413) NEUTROPHILS RELATIVE PERCENT 73 % (BEAKER) (test code = 429) LYMPHOCYTES RELATIVE PERCENT 15 % (BEAKER) (test code = 430) MONOCYTES RELATIVE PERCENT 9 % (BEAKER) (test code = 431) EOSINOPHILS RELATIVE PERCENT 2 % (BEAKER) (test code = 432) BASOPHILS RELATIVE PERCENT 1 % (BEAKER) (test code = 437) NEUTROPHILS ABSOLUTE COUNT 5.81 K/ L 1.78-5.38 H (BEAKER) (test code = 670) LYMPHOCYTES ABSOLUTE COUNT 1.20 K/ L 1.32-3.57 L (BEAKER) (test code = 414) MONOCYTES ABSOLUTE COUNT (BEAKER) 0.69 K/ L 0.30-0.82 (test code = 415) EOSINOPHILS ABSOLUTE COUNT 0.16 K/ L 0.04-0.54 (BEAKER) (test code = 416) BASOPHILS ABSOLUTE COUNT (BEAKER) 0.05 K/ L 0.01-0.08 (test code = 417) IMMATURE GRANULOCYTES-RELATIVE 1 % 0-1 PERCENT (BEAKER) (test code = 2801) CALCIUM, [id number] 02:49:00 Test Item Value Reference Range Interpretation Comments CALCIUM IONIZED (BEAKER) (test 1.11 mmol/L 1.12-1.27 L code = 698) PH, BLOOD (BEAKER) (test code = 7.45 1810) POCT-GLUCOSE [id number] 21:52:00 Test Item Value Reference Range Interpretation Comments POC-GLUCOSE METER 130 mg/dL 70-110 H TESTED AT [place] [address] ([facility]) (test code = [facility] 1538) [address] [id number] 19:29:00 Test Item Value Reference Range Interpretation Comments POTASSIUM (BEAKER) (test code = 4.5 meq/L 3.5-5.1 379) [id number] 19:29:00 Test Item Value Reference Range Interpretation Comments MAGNESIUM (BEAKER) (test code = 2.1 mg/dL 1.6-2.6 627) CALCIUM, [id number] 19:05:00 Test Item Value Reference Range Interpretation Comments CALCIUM IONIZED (BEAKER) (test 1.18 mmol/L 1.12-1.27 code = 698) PH, BLOOD ([facility]) (test code = 7.35 1810) POCT-GLUCOSE [id number] 18:34:00 Test Item Value Reference Range Interpretation Comments POC-GLUCOSE METER 125 mg/dL 70-110 H TESTED AT [place] [address] ([facility]) (test code = [facility] 1538) [address] RAD, CHEST, 1 VIEW, NON [id number] 16:43:00Reason for exam:->shortness of BreathShould this be performed at the bedside?->YesFINAL REPORT EXAM: Frontal chest radiograph HISTORY PROVIDED: Shortness of breath COMPARISON: 12/23/2018 IMPRESSION:Bilateral lower lung zone opacities and small bilateral pleuraleffusions are similar to the previous examination. Bilateral pulmonary vascular congestion is also suspected. No discernible pneumothorax. Cardiomediastinal contours are stable. Sternotomy wires are again noted. No acute osseous abnormality. Signed: Jessica [facility] Verified Date/Time: 12/24/2018 16:43:55 [facility] POCT-GLUCOSE [id number] 11:44:00 Test Item Value Reference Range Interpretation Comments POC-GLUCOSE METER 115 mg/dL 70-110 H TESTED AT [facility] 6720 (BEAKER) (test code = [facility] [place] 1538) [address] POCT-GLUCOSE [id number] 09:29:00 Test Item Value Reference Range Interpretation Comments POC-GLUCOSE METER 123 mg/dL 70-110 H TESTED AT [facility] (BEAKER) (test code = [facility] 1538) [address] [id number] 04:47:00 Test Item Value Reference Range Interpretation Comments PARTIAL THROMBOPLASTIN TIME 37.9 seconds 22.5-36.0 H (BEAKER) (test code = 760) [id number] 04:37:00 Test Item Value Reference Range Interpretation Comments MAGNESIUM (BEAKER) 2.4 mg/dL 1.6-2.6 Specimen slightly (test code = 627) hemolyzed [id number] 04:37:00 Test Item Value Reference Range Interpretation Comments PHOSPHORUS (BEAKER) 4.0 mg/dL 2.3-4.7 Specimen slightly (test code = 604) hemolyzed BASIC METABOLIC [id number] 04:37:00 Test Item Value Reference Range Interpretation Comments SODIUM (BEAKER) 139 meq/L 136-145 (test code = 381) POTASSIUM (BEAKER) 4.9 meq/L 3.5-5.1 Specimen slightly (test code = 379) hemolyzed CHLORIDE (BEAKER) 101 meq/L 98-107 (test code = 382) CO2 (BEAKER) (test 29 meq/L 22-29 code = 355) BLOOD UREA NITROGEN 26 mg/dL 7-21 H (BEAKER) (test code = 354) CREATININE (BEAKER) 1.14 mg/dL 0.57-1.25 Specimen slightly (test code = 358) hemolyzed GLUCOSE RANDOM 89 mg/dL 70-105 (BEAKER) (test code = 652) CALCIUM (BEAKER) 8.7 mg/dL 8.4-10.2 (test code = 697) EGFR (BEAKER) (test 63 mL/min/1.73 ESTIMA FABRIZIO GFR IS code = 1092) sq m NOT ACCURATE CREATININE CLEARANCE IN PREDICTING GLOMERULAR FILTRATION RATE . ESTIMATED GFR I S NOT APPLICABLE FOR DIALYSIS PATIEN TS. CBC (HEMOGRAM ONLY)2018-12-24 04:16:00 Test Item Value Reference Range Interpretation Comments WHITE BLOOD CELL COUNT (BEAKER) 7.4 K/ L 3.5-10.5 (test code = 775) RED BLOOD CELL COUNT (BEAKER) 3.30 M/ L 4.63-6.08 L (test code = 761) HEMOGLOBIN (BEAKER) (test code = 8.5 GM/DL 13.7-17.5 L 410) HEMATOCRIT (BEAKER) (test code = 27.7 % 40.1-51.0 L 411) MEAN CORPUSCULAR VOLUME (BEAKER) 83.9 fL 79.0-92.2 (test code = 753) MEAN CORPUSCULAR HEMOGLOBIN 25.8 pg 25.7-32.2 (BEAKER) (test code = 751) MEAN CORPUSCULAR HEMOGLOBIN CONC 30.7 GM/DL 32.3-36.5 L (BEAKER) (test code = 752) RED CELL DISTRIBUTION WIDTH 14.7 % 11.6-14.4 H (BEAKER) (test code = 412) PLATELET COUNT (BEAKER) (test 239 K/CU MM 150-450 code = 756) MEAN PLATELET VOLUME (BEAKER) 10.3 fL 9.4-12.4 (test code = 754) NUCLEATED RED BLOOD CELLS 0 /100 WBC 0-0 (BEAKER) (test code = 413) POCT-GLUCOSE [id number] 22:39:00 Test Item Value Reference Range Interpretation Comments POC-GLUCOSE METER 139 mg/dL 70-110 H TESTED AT [facility] 67[facility] (BEAKER) (test code = [facility] [place] 1538) [address] HEPATIC FUNCTION [id number] 21:41:00 Test Item Value Reference Range Interpretation Comments TOTAL PROTEIN (BEAKER) (test code = 5.9 gm/dL 6.0-8.3 L 770) ALBUMIN (BEAKER) (test code = 1145) 3.2 g/dL 3.5-5.0 L BILIRUBIN TOTAL (BEAKER) (test code 0.3 mg/dL 0.2-1.2 = 377) BILIRUBIN DIRECT (BEAKER) (test 0.2 mg/dL 0.1-0.5 code = 706) ALKALINE PHOSPHATASE (BEAKER) (test 50 U/L 40-150 code = 346) AST (SGOT) (BEAKER) (test code = 13 U/L 5-34 353) ALT (SGPT) (BEAKER) (test code = 24 U/L 6-55 347) CALCIUM, [id number] 21:07:00 Test Item Value Reference Range Interpretation Comments CALCIUM IONIZED (BEAKER) (test 1.15 mmol/L 1.12-1.27 code = 698) PH, BLOOD (BEAKER) (test code = 7.41 1810) LACTIC ACID, [id number] 20:16:00 Test Item Value Reference Range Interpretation Comments LACTATE BLOOD VENOUS 0.9 mmol/L 0.5-2.2 Specime n slightly (2) (BEAKER) (test hemolyzed code = 2872) [id number] 18:53:00 Test Item Value Reference Range Interpretation Comments PROCALCITONIN (BEAKER) (test code = < ng/mL <0.05 3036) SEPSIS RISK (ng/mL)Low: 0.05-0.50Intermediate: 0.51-2.00High: >=2.01BASIC METABOLIC [id number] 18:25:00 Test Item Value Reference Range Interpretation Comments SODIUM (BEAKER) 140 meq/L 136-145 (test code = 381) POTASSIUM (BEAKER) 4.5 meq/L 3.5-5.1 (test code = 379) CHLORIDE (BEAKER) 100 meq/L 98-107 (test code = 382) CO2 (BEAKER) (test 33 meq/L 22-29 H code = 355) BLOOD UREA NITROGEN 26 mg/dL 7-21 H (BEAKER) (test code = 354) CREATININE (BEAKER) 1.25 mg/dL 0.57-1.25 (test code = 358) GLUCOSE RANDOM 97 mg/dL 70-105 (BEAKER) (test code = 652) CALCIUM (BEAKER) 8.7 mg/dL 8.4-10.2 (test code = 697) EGFR (BEAKER) (test 57 mL/min/1.73 ESTIMA FABRIZIO GFR IS code = 1092) sq m NOT ACCURATE CREATININE CLEARANCE IN PREDICTING GLOMERULAR FILTRATION RATE . ESTIMATED GFR I S NOT APPLICABLE FOR DIALYSIS PATIEN TS. [id number] 18:20:00 Test Item Value Reference Range Interpretation Comments MAGNESIUM (BEAKER) (test code = 2.2 mg/dL 1.6-2.6 627) Check Serum Magnesium level 2 hours after IV magnesium replacement.POCT-GLUCOSE [id number] 17:58:00 Test Item Value Reference Range Interpretation Comments POC-GLUCOSE METER 101 mg/dL 70-110 TESTED AT [place] [address] (BEAKER) (test code = [facility] 1538) [address] HEMOGLOBIN AND [id number] 17:42:00 Test Item Value Reference Range Interpretation Comments HEMOGLOBIN (BEAKER) (test code = 8.0 GM/DL 13.7-17.5 L 410) HEMATOCRIT (BEAKER) (test code = 25.8 % 40.1-51.0 L 411) CBC (HEMOGRAM ONLY)2018-12-23 17:42:00 Test Item Value Reference Range Interpretation Comments WHITE BLOOD CELL COUNT (BEAKER) 8.6 K/ L 3.5-10.5 (test code = 775) RED BLOOD CELL COUNT (BEAKER) 3.05 M/ L 4.63-6.08 L (test code = 761) HEMOGLOBIN (BEAKER) (test code = 8.0 GM/DL 13.7-17.5 L 410) HEMATOCRIT (BEAKER) (test code = 25.8 % 40.1-51.0 L 411) MEAN CORPUSCULAR VOLUME (BEAKER) 84.6 fL 79.0-92.2 (test code = 753) MEAN CORPUSCULAR HEMOGLOBIN 26.2 pg 25.7-32.2 (BEAKER) (test code = 751) MEAN CORPUSCULAR HEMOGLOBIN CONC 31.0 GM/DL 32.3-36.5 L (BEAKER) (test code = 752) RED CELL DISTRIBUTION WIDTH 14.7 % 11.6-14.4 H (BEAKER) (test code = 412) PLATELET COUNT (BEAKER) (test 246 K/CU MM 150-450 code = 756) MEAN PLATELET VOLUME (BEAKER) 10.7 fL 9.4-12.4 (test code = 754) NUCLEATED RED BLOOD CELLS 0 /100 WBC 0-0 (BEAKER) (test code = 413) POCT-GLUCOSE [id number] 12:24:00 Test Item Value Reference Range Interpretation Comments POC-GLUCOSE METER 108 mg/dL 70-110 TESTED AT [place] [address] (BEAKER) (test code = [facility] 1538) [address] RAD, CHEST, 1 VIEW, NON [id number] 09:04:00Reason for exam:->pulmonary edemaShould this be performed at the bedside?->YesFINAL REPORT AP view of the chest dated 12/23/2018 COMPARISON: December 22, 2018 C LINICAL INFORMATION: pulmonary edema Comment: Heart is normal in size. Pulmonary vasculature is unremarkable. Pulmonary parenchyma disease is seen in the right lower lobe suggestive of pneumonia. Subsegmental atelectasis is seen in the left lower lobe. The rest of the lungs are clear. IMPRESSION: Interval change. Signed: Katie Salinas Verified Date/Time: 12/23/2018 09:04:24 Reading Location:[facility] Radiology Reading Room 09:04 AMPOCT-GLUCOSE [id number] 08:01:00 Test Item Value Reference Range Interpretation Comments POC-GLUCOSE METER 123 mg/dL 70-110 H TESTED AT [facility] 67 (BEAKER) (test code = [facility] 1538) [address] [id number] 05:56:00 Test Item Value Reference Range Interpretation Comments MAGNESIUM (BEAKER) 2.1 mg/dL 1.6-2.6 Specimen slightly (test code = 627) hemolyzed [id number] 05:56:00 Test Item Value Reference Range Interpretation Comments PHOSPHORUS (BEAKER) 3.5 mg/dL 2.3-4.7 Specimen slightly (test code = 604) hemolyzed BASIC METABOLIC [id number] 05:56:00 Test Item Value Reference Range Interpretation Comments SODIUM (BEAKER) 140 meq/L 136-145 (test code = 381) POTASSIUM (BEAKER) 4.9 meq/L 3.5-5.1 Specimen slightly (test code = 379) hemolyzed CHLORIDE (BEAKER) 101 meq/L 98-107 (test code = 382) CO2 (BEAKER) (test 32 meq/L 22-29 H code = 355) BLOOD UREA NITROGEN 27 mg/dL 7-21 H (BEAKER) (test code = 354) CREATININE (BEAKER) 1.22 mg/dL 0.57-1.25 Specimen slightly (test code = 358) hemolyzed GLUCOSE RANDOM 106 mg/dL 70-105 H (BEAKER) (test code = 652) CALCIUM (BEAKER) 8.7 mg/dL 8.4-10.2 (test code = 697) EGFR (BEAKER) (test 58 mL/min/1.73 ESTIMA FABRIZIO GFR IS code = 1092) sq m NOT ACCURATE CREATININE CLEARANCE IN PREDICTING GLOMERULAR FILTRATION RATE . ESTIMATED GFR I S NOT APPLICABLE FOR DIALYSIS PATICONNOR ENRIQUE [id number] 04:41:00 Test Item Value Reference Range Interpretation Comments PARTIAL THROMBOPLASTIN TIME 35.4 seconds 22.5-36.0 (BEAKER) (test code = 760) CBC (HEMOGRAM ONLY)2018-12-23 04:33:00 Test Item Value Reference Range Interpretation Comments WHITE BLOOD CELL COUNT (BEAKER) 11.1 K/ L 3.5-10.5 H (test code = 775) RED BLOOD CELL COUNT (BEAKER) 3.55 M/ L 4.63-6.08 L (test code = 761) HEMOGLOBIN (BEAKER) (test code = 9.3 GM/DL 13.7-17.5 L 410) HEMATOCRIT (BEAKER) (test code = 30.3 % 40.1-51.0 L 411) MEAN CORPUSCULAR VOLUME (BEAKER) 85.4 fL 79.0-92.2 (test code = 753) MEAN CORPUSCULAR HEMOGLOBIN 26.2 pg 25.7-32.2 (BEAKER) (test code = 751) MEAN CORPUSCULAR HEMOGLOBIN CONC 30.7 GM/DL 32.3-36.5 L (BEAKER) (test code = 752) RED CELL DISTRIBUTION WIDTH 14.9 % 11.6-14.4 H (BEAKER) (test code = 412) PLATELET COUNT (BEAKER) (test 292 K/CU MM 150-450 code = 756) MEAN PLATELET VOLUME (BEAKER) 10.5 fL 9.4-12.4 (test code = 754) NUCLEATED RED BLOOD CELLS 0 /100 WBC 0-0 (BEAKER) (test code = 413) POCT-GLUCOSE [id number] 21:25:00 Test Item Value Reference Range Interpretation Comments POC-GLUCOSE METER 151 mg/dL 70-110 H TESTED AT [place] [address] ([facility]) (test code = [facility] [place] 1538) [address] [id number] 19:38:00 Test Item Value Reference Range Interpretation Comments PARTIAL THROMBOPLASTIN TIME 38.7 seconds 22.5-36.0 H ([facility]) (test code = 760) POCT-GLUCOSE [id number] 18:50:00 Test Item Value Reference Range Interpretation Comments POC-GLUCOSE METER 126 mg/dL 70-110 H TESTED AT [place] [address] ([facility]) (test code = [facility] 1538) [address] [id number] 16:08:00 Test Item Value Reference Range Interpretation Comments POTASSIUM ([facility]) (test code = 4.7 meq/L 3.5-5.1 379) PRN - repeat potassium levels every 1 hour until glucose level is less than 450 mg/[id number] 16:08:00 Test Item Value Reference Range Interpretation Comments MAGNESIUM ([facility]) (test code = 2.2 mg/dL 1.6-2.6 627) PRN - repeat potassium levels every 1 hour until glucose level is less than 450 mg/dLPOCT-GLUCOSE [id number] 11:44:00 Test Item Value Reference Range Interpretation Comments POC-GLUCOSE METER 134 mg/dL 70-110 H TESTED AT [place] [address] ([facility]) (test code = [facility] [place] 1538) [address] POCT-GLUCOSE [id number] 08:15:00 Test Item Value Reference Range Interpretation Comments POC-GLUCOSE METER 173 mg/dL 70-110 H TESTED AT [place] [address] ([facility]) (test code = [facility] [place] 1538) [address] RAD, CHEST, 1 VIEW, NON [id number] 07:38:00Reason for exam:->pulmonary edemaShould this be performed [...] are noted. IMPRESSION: No significant change. Signed: Salomón Greene MDReport Verified Date/Time: 12/22/2018 07:38:37 Reading Location: [facility] Radiology Reading Room CALCIUM, [id number] 05:13:00 Test Item Value Reference Range Interpretation Comments CALCIUM IONIZED (BEAKER) (test 1.12 mmol/L 1.12-1.27 code = 698) PH, BLOOD (BEAKER) (test code = 7.40 1810) [id number] 04:53:00 Test Item Value Reference Range Interpretation Comments PHOSPHORUS (BEAKER) (test code = 3.5 mg/dL 2.3-4.7 604) [id number] 04:53:00 Test Item Value Reference Range Interpretation Comments MAGNESIUM (BEAKER) (test code = 2.0 mg/dL 1.6-2.6 627) BASIC METABOLIC [id number] 04:53:00 Test Item Value Reference Range Interpretation Comments SODIUM (BEAKER) 142 meq/L 136-145 (test code = 381) POTASSIUM (BEAKER) 4.7 meq/L 3.5-5.1 (test code = 379) CHLORIDE (BEAKER) 103 meq/L 98-107 (test code = 382) CO2 (BEAKER) (test 32 meq/L 22-29 H code = 355) BLOOD UREA NITROGEN 27 mg/dL 7-21 H (BEAKER) (test code = 354) CREATININE (BEAKER) 1.08 mg/dL 0.57-1.25 (test code = 358) GLUCOSE RANDOM 95 mg/dL 70-105 (BEAKER) (test code = 652) CALCIUM (BEAKER) 8.5 mg/dL 8.4-10.2 (test code = 697) EGFR (BEAKER) (test 67 mL/min/1.73 ESTIMA FABRIZIO GFR IS code = 1092) sq m NOT ACCURATE CREATININE CLEARANCE IN PREDICTING GLOMERULAR FILTRATION RATE . ESTIMATED GFR I S NOT APPLICABLE FOR DIALYSIS PATIEN TS. CBC (HEMOGRAM ONLY)2018-12-22 04:26:00 Test Item Value Reference Range Interpretation Comments WHITE BLOOD CELL COUNT (BEAKER) 11.4 K/ L 3.5-10.5 H (test code = 775) RED BLOOD CELL COUNT (BEAKER) 3.47 M/ L 4.63-6.08 L (test code = 761) HEMOGLOBIN (BEAKER) (test code = 9.0 GM/DL 13.7-17.5 L 410) HEMATOCRIT (BEAKER) (test code = 29.7 % 40.1-51.0 L 411) MEAN CORPUSCULAR VOLUME (BEAKER) 85.6 fL 79.0-92.2 (test code = 753) MEAN CORPUSCULAR HEMOGLOBIN 25.9 pg 25.7-32.2 (BEAKER) (test code = 751) MEAN CORPUSCULAR HEMOGLOBIN CONC 30.3 GM/DL 32.3-36.5 L (BEAKER) (test code = 752) RED CELL DISTRIBUTION WIDTH 15.0 % 11.6-14.4 H (BEAKER) (test code = 412) PLATELET COUNT (BEAKER) (test 257 K/CU MM 150-450 code = 756) MEAN PLATELET VOLUME (BEAKER) 10.8 fL 9.4-12.4 (test code = 754) NUCLEATED RED BLOOD CELLS 0 /100 WBC 0-0 (BEAKER) (test code = 413) POCT-GLUCOSE [id number] 22:07:00 Test Item Value Reference Range Interpretation Comments POC-GLUCOSE METER 182 mg/dL 70-110 H TESTED AT [place] [address] ([facility]) (test code = [place] [address]) [id number] POCT-GLUCOSE [id number] 17:42:00 Test Item Value Reference Range Interpretation Comments POC-GLUCOSE METER 183 mg/dL 70-110 H TESTED AT [facility] ([facility]) (test code = [place] [address]) [id number] 13:25:00 Test Item Value Reference Range Interpretation Comments MAGNESIUM (BEAKER) 2.2 mg/dL 1.6-2.6 Specimen slightly (test code = 627) hemolyzed Check Serum Magnesium level 2 hours after IV magnesium replacement.Check Serum Phosphorus level 4 hours after IV phosphorus replacement or 8 hours after PO replacement completed.Check Serum Potassium level 2 hours after oral potassium replacement completed or 30 min after intravenous potassium replacement. [id number] 13:25:00 Test Item Value Reference Range Interpretation Comments PHOSPHORUS (BEAKER) 3.3 mg/dL 2.3-4.7 Specimen slightly (test code = 604) hemolyzed Check Serum Magnesium level 2 hours after IV magnesium replacement.Check Serum Phosphorus level 4 hours after IV phosphorus replacement or 8 hours after PO replacement completed.Check Serum Potassium level 2 hours after oral potassium replacement completed or 30 min after intravenous potassium replacement. [id number] 13:25:00 Test Item Value Reference Range Interpretation Comments POTASSIUM (BEAKER) 4.6 meq/L 3.5-5.1 Specimen slightly (test code = 379) hemolyzed Check Serum Magnesium level 2 hours after IV magnesium replacement.Check Serum Phosphorus level 4 hours after IV phosphorus replacement or 8 hours after PO replacement completed.Check Serum Potassium level 2 hours after oral potassium replacement completed or 30 min after intravenous potassium replacement.CALCIUM, [id number] 13:04:00 Test Item Value Reference Range Interpretation Comments CALCIUM IONIZED (BEAKER) (test 1.13 mmol/L 1.12-1.27 code = 698) PH, BLOOD (BEAKER) (test code = 7.45 1810) Check serum Ionized Calcium level after 4 hours after IV Calcium replacement. POCT-GLUCOSE [id number] 11:41:00 Test Item Value Reference Range Interpretation Comments POC-GLUCOSE METER 155 mg/dL 70-110 H TESTED AT [facility] ([facility]) (test code = [address] [facility] 1538) [address] RAD, CHEST, 1 VIEW, NON [id number] 09:25:00Reason for exam:->pulmonary edemaShould this be performed [...] REDDYeport Verified Date/Time: 12/21/2018 09:25:43 Reading Location: [address] Neuro Reading Room POCT-GLUCOSE [id number] 07:42:00 Test Item Value Reference Range Interpretation Comments POC-GLUCOSE METER 138 mg/dL 70-110 H TESTED AT [facility] (BEAKER) (test code = [place] 1538) [address] [id number] 06:04:00 Test Item Value Reference Range Interpretation Comments PHOSPHORUS (BEAKER) (test code = 3.0 mg/dL 2.3-4.7 604) [id number] 06:04:00 Test Item Value Reference Range Interpretation Comments MAGNESIUM (BEAKER) (test code = 2.3 mg/dL 1.6-2.6 627) BASIC METABOLIC [id number] 06:04:00 Test Item Value Reference Range Interpretation Comments SODIUM (BEAKER) 139 meq/L 136-145 (test code = 381) POTASSIUM (BEAKER) 4.3 meq/L 3.5-5.1 (test code = 379) CHLORIDE (BEAKER) 100 meq/L 98-107 (test code = 382) CO2 (BEAKER) (test 32 meq/L 22-29 H code = 355) BLOOD UREA NITROGEN 25 mg/dL 7-21 H (BEAKER) (test code = 354) CREATININE (BEAKER) 1.04 mg/dL 0.57-1.25 (test code = 358) GLUCOSE RANDOM 114 mg/dL 70-105 H (BEAKER) (test code = 652) CALCIUM (BEAKER) 8.0 mg/dL 8.4-10.2 L (test code = 697) EGFR (BEAKER) (test 70 mL/min/1.73 ESTIMA FABRIZIO GFR IS code = 1092) sq m NOT ACCURATE CREATININE CLEARANCE IN PREDICTING GLOMERULAR FILTRATION RATE . ESTIMATED GFR I S NOT APPLICABLE FOR DIALYSIS PATIEN TS. CALCIUM, [id number] 05:37:00 Test Item Value Reference Range Interpretation Comments CALCIUM IONIZED (BEAKER) (test 1.10 mmol/L 1.12-1.27 L code = 698) PH, BLOOD (BEAKER) (test code = 7.41 1810) CBC (HEMOGRAM ONLY)2018-12-21 04:45:00 Test Item Value Reference Range Interpretation Comments WHITE BLOOD CELL COUNT (BEAKER) 11.6 K/ L 3.5-10.5 H (test code = 775) RED BLOOD CELL COUNT (BEAKER) 3.74 M/ L 4.63-6.08 L (test code = 761) HEMOGLOBIN (BEAKER) (test code = 9.8 GM/DL 13.7-17.5 L 410) HEMATOCRIT (BEAKER) (test code = 31.6 % 40.1-51.0 L 411) MEAN CORPUSCULAR VOLUME (BEAKER) 84.5 fL 79.0-92.2 (test code = 753) MEAN CORPUSCULAR HEMOGLOBIN 26.2 pg 25.7-32.2 (BEAKER) (test code = 751) MEAN CORPUSCULAR HEMOGLOBIN CONC 31.0 GM/DL 32.3-36.5 L (BEAKER) (test code = 752) RED CELL DISTRIBUTION WIDTH 15.1 % 11.6-14.4 H (BEAKER) (test code = 412) PLATELET COUNT (BEAKER) (test 250 K/CU MM 150-450 code = 756) MEAN PLATELET VOLUME (BEAKER) 10.7 fL 9.4-12.4 (test code = 754) NUCLEATED RED BLOOD CELLS 0 /100 WBC 0-0 (BEAKER) (test code = 413) [id number] 00:49:00 Test Item Value Reference Range Interpretation Comments POTASSIUM (BEAKER) (test code = 4.6 meq/L 3.5-5.1 379) [id number] 00:49:00 Test Item Value Reference Range Interpretation Comments MAGNESIUM (BEAKER) (test code = 2.0 mg/dL 1.6-2.6 627) POCT-GLUCOSE [id number] 22:01:00 Test Item Value Reference Range Interpretation Comments POC-GLUCOSE METER 163 mg/dL 70-110 H TESTED AT [facility] (BEAKER) (test code = [address] [place] 1538) [address] [id number] 17:05:00 Test Item Value Reference Range Interpretation Comments POTASSIUM (BEAKER) (test code = 3.7 meq/L 3.5-5.1 379) [id number] 17:05:00 Test Item Value Reference Range Interpretation Comments MAGNESIUM (BEAKER) (test code = 2.1 mg/dL 1.6-2.6 627) POCT-GLUCOSE [id number] 16:53:00 Test Item Value Reference Range Interpretation Comments POC-GLUCOSE METER 147 mg/dL 70-110 H TESTED AT [place] [address] ([facility]) (test code = [address] [facility] 1538) [address] POCT-GLUCOSE [id number] 12:24:00 Test Item Value Reference Range Interpretation Comments POC-GLUCOSE METER 123 mg/dL 70-110 H TESTED AT [place] [address] ([facility]) (test code = [facility] [address] [facility] 1538) [address] [id number] 10:35:00 Test Item Value Reference Range Interpretation Comments POTASSIUM (BEAKER) (test code = 3.7 meq/L 3.5-5.1 379) [id number] 10:35:00 Test Item Value Reference Range Interpretation Comments MAGNESIUM (BEAKER) (test code = 2.1 mg/dL 1.6-2.6 627) POCT-GLUCOSE [id number] 07:55:00 Test Item Value Reference Range Interpretation Comments POC-GLUCOSE METER 137 mg/dL 70-110 H TESTED AT [place] [address] ([facility]) (test code = [facility] [address] [facility] 1538) [address] RAD, CHEST, 1 VIEW, NON [id number] 07:36:00Reason for exam:->pulmonary edemaShould this be performed [...] MDReport Verified Date/Time: 12/20/2018 07:36:57 Reading Location: [facility] B1 C013V Neuro Reading Room POTASSIUM-STAT LAB 2018-12-20 04:45:00 Test Item Value Reference Range Interpretation Comments POTASSIUM (BEAKER) (test code = 3.6 meq/L 3.6-5.5 379) CALCIUM, [id number] 04:45:00 Test Item Value Reference Range Interpretation Comments CALCIUM IONIZED (BEAKER) (test 1.11 mmol/L 1.12-1.27 L code = 698) PH, BLOOD (BEAKER) (test code = 7.48 1810) [id number] 04:39:00 Test Item Value Reference Range Interpretation Comments PHOSPHORUS (BEAKER) (test code = 2.6 mg/dL 2.3-4.7 604) [id number] 04:39:00 Test Item Value Reference Range Interpretation Comments MAGNESIUM (BEAKER) (test code = 2.1 mg/dL 1.6-2.6 627) BASIC METABOLIC [id number] 04:39:00 Test Item Value Reference Range Interpretation Comments SODIUM (BEAKER) 138 meq/L 136-145 (test code = 381) POTASSIUM (BEAKER) 3.7 meq/L 3.5-5.1 (test code = 379) CHLORIDE (BEAKER) 101 meq/L 98-107 (test code = 382) CO2 (BEAKER) (test 30 meq/L 22-29 H code = 355) BLOOD UREA NITROGEN 24 mg/dL 7-21 H (BEAKER) (test code = 354) CREATININE (BEAKER) 0.95 mg/dL 0.57-1.25 (test code = 358) GLUCOSE RANDOM 113 mg/dL 70-105 H (BEAKER) (test code = 652) CALCIUM (BEAKER) 8.2 mg/dL 8.4-10.2 L (test code = 697) EGFR (BEAKER) (test 78 mL/min/1.73 ESTIMA FABRIZIO GFR IS code = 1092) sq m NOT ACCURATE CREATININE CLEARANCE IN PREDICTING GLOMERULAR FILTRATION RATE . ESTIMATED GFR I S NOT APPLICABLE FOR DIALYSIS PATIEN TS. CBC (HEMOGRAM ONLY)2018-12-20 04:25:00 Test Item Value Reference Range Interpretation Comments WHITE BLOOD CELL COUNT (BEAKER) 12.1 K/ L 3.5-10.5 H (test code = 775) RED BLOOD CELL COUNT (BEAKER) 3.60 M/ L 4.63-6.08 L (test code = 761) HEMOGLOBIN (BEAKER) (test code = 9.7 GM/DL 13.7-17.5 L 410) HEMATOCRIT (BEAKER) (test code = 30.4 % 40.1-51.0 L 411) MEAN CORPUSCULAR VOLUME (BEAKER) 84.4 fL 79.0-92.2 (test code = 753) MEAN CORPUSCULAR HEMOGLOBIN 26.9 pg 25.7-32.2 (BEAKER) (test code = 751) MEAN CORPUSCULAR HEMOGLOBIN CONC 31.9 GM/DL 32.3-36.5 L (BEAKER) (test code = 752) RED CELL DISTRIBUTION WIDTH 14.9 % 11.6-14.4 H (BEAKER) (test code = 412) PLATELET COUNT (BEAKER) (test 198 K/CU MM 150-450 code = 756) MEAN PLATELET VOLUME (BEAKER) 11.3 fL 9.4-12.4 (test code = 754) NUCLEATED RED BLOOD CELLS 0 /100 WBC 0-0 (BEAKER) (test code = 413) [id number] 23:33:00 Test Item Value Reference Range Interpretation Comments MAGNESIUM (BEAKER) (test code = 2.0 mg/dL 1.6-2.6 627) BASIC METABOLIC [id number] 23:33:00 Test Item Value Reference Range Interpretation Comments SODIUM (BEAKER) 139 meq/L 136-145 (test code = 381) POTASSIUM (BEAKER) 3.7 meq/L 3.5-5.1 (test code = 379) CHLORIDE (BEAKER) 102 meq/L 98-107 (test code = 382) CO2 (BEAKER) (test 29 meq/L 22-29 code = 355) BLOOD UREA NITROGEN 26 mg/dL 7-21 H (BEAKER) (test code = 354) CREATININE (BEAKER) 0.98 mg/dL 0.57-1.25 (test code = 358) GLUCOSE RANDOM 120 mg/dL 70-105 H (BEAKER) (test code = 652) CALCIUM (BEAKER) 8.0 mg/dL 8.4-10.2 L (test code = 697) EGFR (BEAKER) (test 75 mL/min/1.73 ESTIMA FABRIZIO GFR IS code = 1092) sq m NOT ACCURATE CREATININE CLEARANCE IN PREDICTING GLOMERULAR FILTRATION RATE . ESTIMATED GFR I S NOT APPLICABLE FOR DIALYSIS PATIEN TS. CALCIUM, [id number] 22:52:00 Test Item Value Reference Range Interpretation Comments CALCIUM IONIZED (BEAKER) (test 1.10 mmol/L 1.12-1.27 L code = 698) PH, BLOOD (BEAKER) (test code = 7.43 1810) POCT-GLUCOSE [id number] 21:53:00 Test Item Value Reference Range Interpretation Comments POC-GLUCOSE METER 138 mg/dL 70-110 H TESTED AT [place] [address] ([facility]) (test code = [facility] 1538) [id number] POCT-GLUCOSE [id number] 18:02:00 Test Item Value Reference Range Interpretation Comments POC-GLUCOSE METER 185 mg/dL 70-110 H TESTED AT [place] [address] ([facility]) (test code = [facility] 1538) [address] [id number] 15:24:00 Test Item Value Reference Range Interpretation Comments POTASSIUM (BEAKER) (test code = 4.0 meq/L 3.5-5.1 379) [id number] 15:24:00 Test Item Value Reference Range Interpretation Comments MAGNESIUM (BEAKER) (test code = 2.1 mg/dL 1.6-2.6 627) POCT-GLUCOSE [id number] 13:05:00 Test Item Value Reference Range Interpretation Comments POC-GLUCOSE METER 156 mg/dL 70-110 H TESTED AT [place] [address] ([facility]) (test code = [facility] 1538) [address] POCT-GLUCOSE [id number] 08:12:00 Test Item Value Reference Range Interpretation Comments POC-GLUCOSE METER 108 mg/dL 70-110 TESTED AT [place] [address] ([facility]) (test code = [facility] 1538) [address] RAD, CHEST, 1 VIEW, NON [id number] 07:53:00Reason for exam:->pulmonary edemaShould this be performed at the bedside?->YesFINAL REPORT TECHNIQUE: Frontal view of the chest. INDICATION: 73-year-old man with pulmonary edema. COMPARISON: Chest radiograph 12/18/2018. FINDINGS: LINES/TUBES: None. LUNGS: Increased airspace opacities in the [...] no significant change since 12/18/2018. Signed: Benny Wolf[place] Verified D ate/Time: 12/19/2018 07:53:09 Reading Location: [facility] Radiology Reading Room [id number] 03:56:00 Test Item Value Reference Range Interpretation Comments PHOSPHORUS (BEAKER) (test code = 2.4 mg/dL 2.3-4.7 604) [id number] 03:56:00 Test Item Value Reference Range Interpretation Comments MAGNESIUM (BEAKER) (test code = 2.0 mg/dL 1.6-2.6 627) BASIC METABOLIC [id number] 03:56:00 Test Item Value Reference Range Interpretation Comments SODIUM (BEAKER) 139 meq/L 136-145 (test code = 381) POTASSIUM (BEAKER) 3.9 meq/L 3.5-5.1 (test code = 379) CHLORIDE (BEAKER) 106 meq/L 98-107 (test code = 382) CO2 (BEAKER) (test 27 meq/L 22-29 code = 355) BLOOD UREA NITROGEN 25 mg/dL 7-21 H (BEAKER) (test code = 354) CREATININE (BEAKER) 0.90 mg/dL 0.57-1.25 (test code = 358) GLUCOSE RANDOM 116 mg/dL 70-105 H (BEAKER) (test code = 652) CALCIUM (BEAKER) 8.1 mg/dL 8.4-10.2 L (test code = 697) EGFR (BEAKER) (test 83 mL/min/1.73 ESTIMA FABRIZIO GFR IS code = 1092) sq m NOT ACCURATE CREATININE CLEARANCE IN PREDICTING GLOMERULAR FILTRATION RATE . ESTIMATED GFR I S NOT APPLICABLE FOR DIALYSIS PATIEN TS. CBC (HEMOGRAM ONLY)2018-12-19 03:34:00 Test Item Value Reference Range Interpretation Comments WHITE BLOOD CELL COUNT (BEAKER) 13.0 K/ L 3.5-10.5 H (test code = 775) RED BLOOD CELL COUNT (BEAKER) 3.63 M/ L 4.63-6.08 L (test code = 761) HEMOGLOBIN (BEAKER) (test code = 9.5 GM/DL 13.7-17.5 L 410) HEMATOCRIT (BEAKER) (test code = 30.4 % 40.1-51.0 L 411) MEAN CORPUSCULAR VOLUME (BEAKER) 83.7 fL 79.0-92.2 (test code = 753) MEAN CORPUSCULAR HEMOGLOBIN 26.2 pg 25.7-32.2 (BEAKER) (test code = 751) MEAN CORPUSCULAR HEMOGLOBIN CONC 31.3 GM/DL 32.3-36.5 L (BEAKER) (test code = 752) RED CELL DISTRIBUTION WIDTH 14.9 % 11.6-14.4 H (BEAKER) (test code = 412) PLATELET COUNT (BEAKER) (test 149 K/CU MM 150-450 L code = 756) MEAN PLATELET VOLUME (BEAKER) 11.6 fL 9.4-12.4 (test code = 754) NUCLEATED RED BLOOD CELLS 0 /100 WBC 0-0 (BEAKER) (test code = 413) CALCIUM, [id number] 03:29:00 Test Item Value Reference Range Interpretation Comments CALCIUM IONIZED (BEAKER) (test 1.10 mmol/L 1.12-1.27 L code = 698) PH, BLOOD (BEAKER) (test code = 7.47 1810) POCT-GLUCOSE [id number] 22:30:00 Test Item Value Reference Range Interpretation Comments POC-GLUCOSE METER 115 mg/dL 70-110 H TESTED AT [facility] (BEAKER) (test code = [place] [place] 1538) [address] [id number] 20:25:00 Test Item Value Reference Range Interpretation Comments MAGNESIUM (BEAKER) (test code = 2.1 mg/dL 1.6-2.6 627) BASIC METABOLIC [id number] 20:25:00 Test Item Value Reference Range Interpretation Comments SODIUM (BEAKER) 137 meq/L 136-145 (test code = 381) POTASSIUM (BEAKER) 4.1 meq/L 3.5-5.1 (test code = 379) CHLORIDE (BEAKER) 105 meq/L 98-107 (test code = 382) CO2 (BEAKER) (test 26 meq/L 22-29 code = 355) BLOOD UREA NITROGEN 25 mg/dL 7-21 H (BEAKER) (test code = 354) CREATININE (BEAKER) 0.91 mg/dL 0.57-1.25 (test code = 358) GLUCOSE RANDOM 180 mg/dL 70-105 H (BEAKER) (test code = 652) CALCIUM (BEAKER) 8.0 mg/dL 8.4-10.2 L (test code = 697) EGFR (BEAKER) (test 82 mL/min/1.73 ESTIMA FABRIZIO GFR IS code = 1092) sq m NOT ACCURATE CREATININE CLEARANCE IN PREDICTING GLOMERULAR FILTRATION RATE . ESTIMATED GFR I S NOT APPLICABLE FOR DIALYSIS PATIEN TS. CALCIUM, [id number] 20:03:00 Test Item Value Reference Range Interpretation Comments CALCIUM IONIZED (BEAKER) (test 1.14 mmol/L 1.12-1.27 code = 698) PH, BLOOD (BEAKER) (test code = 7.48 1810) POCT-GLUCOSE [id number] 17:42:00 Test Item Value Reference Range Interpretation Comments POC-GLUCOSE METER 125 mg/dL 70-110 H TESTED AT [facility] (BEAKER) (test code = [address] [facility] 1538) [address] [id number] 13:50:00 Test Item Value Reference Range Interpretation Comments MAGNESIUM (BEAKER) 2.1 mg/dL 1.6-2.6 Specimen slightly (test code = 627) hemolyzed Check Serum Magnesium level 2 hours after IV magnesium replacement.Check Serum Potassium level 2 hours after oral potassium replacement completed or 30 min after intravenous potassium replacement.[id number] 13:50:00 Test Item Value Reference Range Interpretation Comments POTASSIUM (BEAKER) 4.4 meq/L 3.5-5.1 Specimen slightly (test code = 379) hemolyzed Check Serum Magnesium level 2 hours after IV magnesium replacement.Check Serum Potassium level 2 hours after oral potassium replacement completed or 30 min after intravenous potassium replacement.POCT-GLUCOSE [id number] 12:31:00 Test Item Value Reference Range Interpretation Comments POC-GLUCOSE METER 165 mg/dL 70-110 H TESTED AT [place] [address] ([facility]) (test code = [address] [facility] 1538) [address] RAD, CHEST, 1 VIEW, NON [id number] 08:44:00Reason for exam:->SOBShould this be performed at the bedside?->YesFINAL REPORT Chest, 1 view, 12/18/2018 7:57 AM. History: Shortness of breath.Comparison: 12/17/2018. Discussion: The cardiomediastinal silhouette and pulmonary vasculature [...] represent worsening atelectasis or pneumonia. Signed: [facility] Verified Date/Time: 12/18/2018 08:44:28 Reading Location: [facility] Radiology Reading Room POCT- GLUCOSE [id number] 08:02:00 Test Item Value Reference Range Interpretation Comments POC-GLUCOSE METER 154 mg/dL 70-110 H TESTED AT [place] [address] ([facility]) (test code = [facility] [address] [facility] 1538) [address] BLOOD GAS, [id number] 07:34:00 Test Item Value Reference Range Interpretation Comments PH ARTERIAL (BEAKER) (test code = 7.46 7.35-7.45 H 383) PCO2 ARTERIAL (BEAKER) (test code 37 mmHg 35-45 = 384) PO2 ARTERIAL (BEAKER) (test code = 69 mmHg 80-90 L 385) O2 SATURATION ARTERIAL (BEAKER) 94.8 % 96.0-97.0 L (test code = 386) HCO3 ARTERIAL (BEAKER) (test code 26 mmol/L 21-29 = 388) BASE EXCESS ARTERIAL (BEAKER) 1.8 mmol/L -2.0-3.0 (test code = 387) PATIENT TEMPERATURE (BEAKER) (test 37.0 C code = 1818) FIO2 (BEAKER) (test code = 1819) 40.0 % [id number] 05:04:00 Test Item Value Reference Range Interpretation Comments PHOSPHORUS (BEAKER) (test code = 2.1 mg/dL 2.3-4.7 L 604) [id number] 05:04:00 Test Item Value Reference Range Interpretation Comments MAGNESIUM (BEAKER) (test code = 2.0 mg/dL 1.6-2.6 627) BASIC METABOLIC [id number] 05:04:00 Test Item Value Reference Range Interpretation Comments SODIUM (BEAKER) 136 meq/L 136-145 (test code = 381) POTASSIUM (BEAKER) 4.4 meq/L 3.5-5.1 (test code = 379) CHLORIDE (BEAKER) 107 meq/L 98-107 (test code = 382) CO2 (BEAKER) (test 24 meq/L 22-29 code = 355) BLOOD UREA NITROGEN 22 mg/dL 7-21 H (BEAKER) (test code = 354) CREATININE (BEAKER) 0.89 mg/dL 0.57-1.25 (test code = 358) GLUCOSE RANDOM 135 mg/dL 70-105 H (BEAKER) (test code = 652) CALCIUM (BEAKER) 8.2 mg/dL 8.4-10.2 L (test code = 697) EGFR (BEAKER) (test 84 mL/min/1.73 ESTIMA FABRIZIO GFR IS code = 1092) sq m NOT ACCURATE CREATININE CLEARANCE IN PREDICTING GLOMERULAR FILTRATION RATE . ESTIMATED GFR I S NOT APPLICABLE FOR DIALYSIS PATIEN TS. CBC (HEMOGRAM ONLY)2018-12-18 04:28:00 Test Item Value Reference Range Interpretation Comments WHITE BLOOD CELL COUNT (BEAKER) 17.0 K/ L 3.5-10.5 H (test code = 775) RED BLOOD CELL COUNT (BEAKER) 3.89 M/ L 4.63-6.08 L (test code = 761) HEMOGLOBIN (BEAKER) (test code = 10.2 GM/DL 13.7-17.5 L 410) HEMATOCRIT (BEAKER) (test code = 32.9 % 40.1-51.0 L 411) MEAN CORPUSCULAR VOLUME (BEAKER) 84.6 fL 79.0-92.2 (test code = 753) MEAN CORPUSCULAR HEMOGLOBIN 26.2 pg 25.7-32.2 (BEAKER) (test code = 751) MEAN CORPUSCULAR HEMOGLOBIN CONC 31.0 GM/DL 32.3-36.5 L (BEAKER) (test code = 752) RED CELL DISTRIBUTION WIDTH 14.8 % 11.6-14.4 H (BEAKER) (test code = 412) PLATELET COUNT (BEAKER) (test 143 K/CU MM 150-450 L code = 756) MEAN PLATELET VOLUME (BEAKER) 12.2 fL 9.4-12.4 (test code = 754) NUCLEATED RED BLOOD CELLS 0 /100 WBC 0-0 (BEAKER) (test code = 413) BLOOD GAS, [id number] 03:26:00 Test Item Value Reference Range Interpretation Comments PH ARTERIAL (BEAKER) (test code = 7.45 7.35-7.45 383) PCO2 ARTERIAL (BEAKER) (test code 37 mmHg 35-45 = 384) PO2 ARTERIAL (BEAKER) (test code = 100 mmHg 80-90 H 385) O2 SATURATION ARTERIAL (BEAKER) 97.9 % 96.0-97.0 H (test code = 386) HCO3 ARTERIAL (BEAKER) (test code 25 mmol/L 21-29 = 388) BASE EXCESS ARTERIAL (BEAKER) 1.3 mmol/L -2.0-3.0 (test code = 387) PATIENT TEMPERATURE (BEAKER) (test 36.8 C code = 1818) FIO2 (BEAKER) (test code = 1819) 40.0 % CALCIUM, [id number] 03:26:00 Test Item Value Reference Range Interpretation Comments CALCIUM IONIZED (BEAKER) (test 1.13 mmol/L 1.12-1.27 code = 698) PH, BLOOD (BEAKER) (test code = 7.45 1810) POCT-GLUCOSE [id number] 21:30:00 Test Item Value Reference Range Interpretation Comments POC-GLUCOSE METER 129 mg/dL 70-110 H TESTED AT [place] [address] (BEAKER) (test code = [address] [place] 1538) [address] POCT-GLUCOSE [id number] 18:18:00 Test Item Value Reference Range Interpretation Comments POC-GLUCOSE METER 165 mg/dL 70-110 H [facility] [place] [address] [facility] (test code = [address] [facility] 1538) [address] BLOOD GAS, [id number] 18:09:00 Test Item Value Reference Range Interpretation Comments PH ARTERIAL (BEAKER) (test code = 7.47 7.35-7.45 H 383) PCO2 ARTERIAL (BEAKER) (test code 34 mmHg 35-45 L = 384) PO2 ARTERIAL (BEAKER) (test code = 79 mmHg 80-90 L 385) O2 SATURATION ARTERIAL (BEAKER) 96.4 % 96.0-97.0 (test code = 386) HCO3 ARTERIAL (BEAKER) (test code 24 mmol/L 21-29 = 388) BASE EXCESS ARTERIAL (BEAKER) 1.0 mmol/L -2.0-3.0 (test code = 387) PATIENT TEMPERATURE (BEAKER) (test 37.0 C code = 1818) FIO2 (BEAKER) (test code = 1819) 40.0 % POCT-GLUCOSE [id number] 14:03:00 Test Item Value Reference Range Interpretation Comments POC-GLUCOSE METER 212 mg/dL 70-110 H TESTED AT [place] [address] ([facility]) (test code = [address] [facility] 1538) [address] RAD, CHEST, 1 VIEW, NON [id number] 07:48:00Reason for exam:->intubated, post opShould this be performed at the bedside?->YesFINAL REPORT Chest x-ray Clinical History: intubated, post op Comparison: December 16, 2018 Views: Two AP lordotic Chest x-ray:The cardiac and mediastinal silhouettes are within normal limits. There is no evidence of a pneumothorax. There is evidence of a small left pleural effusion. The patient's right internal jugular [place] catheter has been removed. There remains a right internal jugular sheath. The patient has been extubated with interval removal of a nasogastric tube. Sternotomy changes are present with multiple chest tubes. There are increased interstitial findings. Subsegmental atelectasis in left lower lobe retrocardiac space is suspected. Increased interstitial pulmonary edema is favored. Signed: Esther Pacheco MDReport Verified Date/Time: 12/17/2018 07:48:21 Reading Location: [facility] Radiology Reading Room CALCIUM, [id number] 04:51:00 Test Item Value Reference Range Interpretation Comments CALCIUM IONIZED (BEAKER) (test 1.13 mmol/L 1.12-1.27 code = 698) PH, BLOOD (BEAKER) (test code = 7.48 1810) [id number] 03:42:00 Test Item Value Reference Range Interpretation Comments PHOSPHORUS (BEAKER) (test code = 2.2 mg/dL 2.3-4.7 L 604) [id number] 03:42:00 Test Item Value Reference Range Interpretation Comments MAGNESIUM (BEAKER) (test code = 2.4 mg/dL 1.6-2.6 627) BASIC METABOLIC [id number] 03:42:00 Test Item Value Reference Range Interpretation Comments SODIUM (BEAKER) 137 meq/L 136-145 (test code = 381) POTASSIUM (BEAKER) 4.5 meq/L 3.5-5.1 (test code = 379) CHLORIDE (BEAKER) 107 meq/L 98-107 (test code = 382) CO2 (BEAKER) (test 25 meq/L 22-29 code = 355) BLOOD UREA NITROGEN 20 mg/dL 7-21 (BEAKER) (test code = 354) CREATININE (BEAKER) 0.81 mg/dL 0.57-1.25 (test code = 358) GLUCOSE RANDOM 159 mg/dL 70-105 H (BEAKER) (test code = 652) CALCIUM (BEAKER) 8.3 mg/dL 8.4-10.2 L (test code = 697) EGFR (BEAKER) (test 94 mL/min/1.73 ESTIMA FABRIZIO GFR IS code = 1092) sq m NOT ACCURATE CREATININE CLEARANCE IN PREDICTING GLOMERULAR FILTRATION RATE . ESTIMATED GFR I S NOT APPLICABLE FOR DIALYSIS PATIEN TS. BLOOD GAS, [id number] 03:41:00 Test Item Value Reference Range Interpretation Comments PH ARTERIAL (BEAKER) (test code = 7.46 7.35-7.45 H 383) PCO2 ARTERIAL (BEAKER) (test code 38 mmHg 35-45 = 384) PO2 ARTERIAL (BEAKER) (test code = 112 mmHg 80-90 H 385) O2 SATURATION ARTERIAL (BEAKER) 98.2 % 96.0-97.0 H (test code = 386) HCO3 ARTERIAL (BEAKER) (test code 26 mmol/L 21-29 = 388) BASE EXCESS ARTERIAL (BEAKER) 2.7 mmol/L -2.0-3.0 (test code = 387) PATIENT TEMPERATURE (BEAKER) (test 37.9 C code = 1818) FIO2 (BEAKER) (test code = 1819) 40.0 % OXYGEN SATURATION, [id number] 03:37:00 Test Item Value Reference Range Interpretation Comments O2 SATURATION (MEASURED) (BEAKER) 58.0 % (test code = 1455) CBC (HEMOGRAM ONLY)2018-12-17 03:18:00 Test Item Value Reference Range Interpretation Comments WHITE BLOOD CELL COUNT (BEAKER) 18.4 K/ L 3.5-10.5 H (test code = 775) RED BLOOD CELL COUNT (BEAKER) 4.11 M/ L 4.63-6.08 L (test code = 761) HEMOGLOBIN (BEAKER) (test code = 10.8 GM/DL 13.7-17.5 L 410) HEMATOCRIT (BEAKER) (test code = 34.4 % 40.1-51.0 L 411) MEAN CORPUSCULAR VOLUME (BEAKER) 83.7 fL 79.0-92.2 (test code = 753) MEAN CORPUSCULAR HEMOGLOBIN 26.3 pg 25.7-32.2 (BEAKER) (test code = 751) MEAN CORPUSCULAR HEMOGLOBIN CONC 31.4 GM/DL 32.3-36.5 L (BEAKER) (test code = 752) RED CELL DISTRIBUTION WIDTH 14.6 % 11.6-14.4 H (BEAKER) (test code = 412) PLATELET COUNT (BEAKER) (test 141 K/CU MM 150-450 L code = 756) MEAN PLATELET VOLUME (BEAKER) 11.6 fL 9.4-12.4 (test code = 754) NUCLEATED RED BLOOD CELLS 0 /100 WBC 0-0 (BEAKER) (test code = 413) [id number] 22:06:00 Test Item Value Reference Range Interpretation Comments MAGNESIUM (BEAKER) (test code = 2.0 mg/dL 1.6-2.6 627) BLOOD GAS, [id number] 21:50:00 Test Item Value Reference Range Interpretation Comments PH ARTERIAL (BEAKER) (test code = 7.54 7.35-7.45 H 383) PCO2 ARTERIAL (BEAKER) (test code 28 mmHg 35-45 L = 384) PO2 ARTERIAL (BEAKER) (test code = 50 mmHg 80-90 L 385) O2 SATURATION ARTERIAL (BEAKER) 94.9 % 96.0-97.0 L (test code = 386) HCO3 ARTERIAL (BEAKER) (test code 25 mmol/L 21-29 = 388) BASE EXCESS ARTERIAL (BEAKER) 1.5 mmol/L -2.0-3.0 (test code = 387) PATIENT TEMPERATURE (BEAKER) (test 32.1 C code = 1818) FIO2 (BEAKER) (test code = 1819) 100.0 % GLUCOSE-STAT [id number] 21:50:00 Test Item Value Reference Range Interpretation Comments GLUCOSE RANDOM (BEAKER) (test code 220 mg/dL 70-110 H = 652) HGB/HCT (H&H) - STAT [id number] 21:50:00 Test Item Value Reference Range Interpretation Comments HEMOGLOBIN (BEAKER) (test code = 11.4 g/dL 13.0-16.8 L 410) HEMATOCRIT (BEAKER) (test code = 34.0 % 40.0-50.0 L 411) OXYGEN SATURATION, [id number] 21:50:00 Test Item Value Reference Range Interpretation Comments O2 SATURATION (MEASURED) (BEAKER) 58.1 % (test code = 1455) SODIUM NA-STAT [id number] 21:49:00 Test Item Value Reference Range Interpretation Comments SODIUM (BEAKER) (test code = 381) 135 meq/L 135-148 POTASSIUM-STAT [id number] 21:49:00 Test Item Value Reference Range Interpretation Comments POTASSIUM ([facility]) (test code = 4.2 meq/L 3.6-5.5 379) CALCIUM, [id number] 21:49:00 Test Item Value Reference Range Interpretation Comments CALCIUM IONIZED ([facility]) (test 1.12 mmol/L 1.12-1.27 code = 698) PH, BLOOD ([facility]) (test code = 7.47 1810) POCT-GLUCOSE [id number] 18:28:00 Test Item Value Reference Range Interpretation Comments POC-GLUCOSE METER 138 mg/dL 70-110 H TESTED AT [place] [address] ([facility]) ([facility] 1538) [id number] POCT-GLUCOSE [id number] 12:28:00 Test Item Value Reference Range Interpretation Comments POC-GLUCOSE METER 111 mg/dL 70-110 H TESTED AT [place] [address] ([facility]) ([facility] 1538) [address] OXYGEN SATURATION, [id number] 09:45:00 Test Item Value Reference Range Interpretation Comments O2 SATURATION (MEASURED) ([facility]) 64.3 % (test code = 1455) POCT-GLUCOSE [id number] 09:33:00 Test Item Value Reference Range Interpretation Comments POC-GLUCOSE METER 102 mg/dL 70-110 TESTED AT [place] [address] ([facility]) (test code = [facility] 1538) [id number] POCT-GLUCOSE [id number] 08:51:00 Test Item Value Reference Range Interpretation Comments POC-GLUCOSE METER 98 mg/dL 70-110 TESTED AT [place] [address] ([facility]) (test code = [facility] [address] 1538) POCT-GLUCOSE [id number] 08:51:00 Test Item Value Reference Range Interpretation Comments POC-GLUCOSE METER 121 mg/dL 70-110 H TESTED AT [place] [address] ([facility]) (test code = [facility] 1538) [id number] LACTIC ACID, [id number] 07:52:00 Test Item Value Reference Range Interpretation Comments LACTATE BLOOD 0.9 mmol/L 0.5-2.2 Specimen sligh tly ARTERIAL (2) ([facility]) hemoly zed (test code = 2874) OXYGEN SATURATION, [id number] 07:18:00 Test Item Value Reference Range Interpretation Comments O2 SATURATION (MEASURED) (BEAKER) 96.4 % (test code = 1455) RAD, CHEST, 1 VIEW, NON [id number] 06:10:00Reason for exam:->intubated, post opShould this be performed at the bedside?->YesFINAL REPORT RAD, CHEST, 1 VIEW, NON DEPT INDICATION: intubated, post op CISCO RISON: Prior day's exam FINDINGS: Portable frontal view of the chest. IMPRESSION: Support Lines: Introverted balloons pump superior marker terminates 1.8 cm below the superior aspect of the aortic knob. Otherwise unchanged support apparatus. Lungs and pleura: Unchanged airspace and pleural opacities. No pneumothorax.Heart and mediastinum: Stable contours. Stable surgical changes.Additional findings: None. Signed: Nanette Rojas [facility] Verified Date/Time: 12/16/2018 06:10:03 [id number] 04:05:00 Test Item Value Reference Range Interpretation Comments PHOSPHORUS (BEAKER) (test code = 3.2 mg/dL 2.3-4.7 604) [id number] 04:05:00 Test Item Value Reference Range Interpretation Comments MAGNESIUM (BEAKER) (test code = 2.3 mg/dL 1.6-2.6 627) BASIC METABOLIC [id number] 04:05:00 Test Item Value Reference Range Interpretation Comments SODIUM (BEAKER) 138 meq/L 136-145 (test code = 381) POTASSIUM (BEAKER) 3.8 meq/L 3.5-5.1 (test code = 379) CHLORIDE (BEAKER) 104 meq/L 98-107 (test code = 382) CO2 (BEAKER) (test 28 meq/L 22-29 code = 355) BLOOD UREA NITROGEN 27 mg/dL 7-21 H (BEAKER) (test code = 354) CREATININE (BEAKER) 0.93 mg/dL 0.57-1.25 (test code = 358) GLUCOSE RANDOM 103 mg/dL 70-105 (BEAKER) (test code = 652) CALCIUM (BEAKER) 8.1 mg/dL 8.4-10.2 L (test code = 697) EGFR (BEAKER) (test 80 mL/min/1.73 ESTIMA FABRIZIO GFR IS code = 1092) sq m NOT ACCURATE CREATININE CLEARANCE IN PREDICTING GLOMERULAR FILTRATION RATE . ESTIMATED GFR I S NOT APPLICABLE FOR DIALYSIS PATIEN TS. LACTIC ACID, [id number] 04:00:00 Test Item Value Reference Range Interpretation Comments LACTATE BLOOD ARTERIAL (2) 0.9 mmol/L 0.5-2.2 (BEAKER) (test code = 2874) BLOOD GAS, [id number] 03:48:00 Test Item Value Reference Range Interpretation Comments PH ARTERIAL (BEAKER) (test code = 7.43 7.35-7.45 383) PCO2 ARTERIAL (BEAKER) (test code 43 mmHg 35-45 = 384) PO2 ARTERIAL (BEAKER) (test code = 113 mmHg 80-90 H 385) O2 SATURATION ARTERIAL (BEAKER) 98.3 % 96.0-97.0 H (test code = 386) HCO3 ARTERIAL (BEAKER) (test code 29 mmol/L 21-29 = 388) BASE EXCESS ARTERIAL (BEAKER) 3.6 mmol/L -2.0-3.0 H (test code = 387) PATIENT TEMPERATURE (BEAKER) (test 36.4 C code = 1818) FIO2 (BEAKER) (test code = 1819) 40.0 % OXYGEN SATURATION, [id number] 03:45:00 Test Item Value Reference Range Interpretation Comments O2 SATURATION (MEASURED) (BEAKER) 64.9 % (test code = 1455) CBC (HEMOGRAM ONLY)2018-12-16 03:38:00 Test Item Value Reference Range Interpretation Comments WHITE BLOOD CELL COUNT (BEAKER) 16.8 K/ L 3.5-10.5 H (test code = 775) RED BLOOD CELL COUNT (BEAKER) 4.05 M/ L 4.63-6.08 L (test code = 761) HEMOGLOBIN (BEAKER) (test code = 10.6 GM/DL 13.7-17.5 L 410) HEMATOCRIT (BEAKER) (test code = 33.6 % 40.1-51.0 L 411) MEAN CORPUSCULAR VOLUME (BEAKER) 83.0 fL 79.0-92.2 (test code = 753) MEAN CORPUSCULAR HEMOGLOBIN 26.2 pg 25.7-32.2 (BEAKER) (test code = 751) MEAN CORPUSCULAR HEMOGLOBIN CONC 31.5 GM/DL 32.3-36.5 L (BEAKER) (test code = 752) RED CELL DISTRIBUTION WIDTH 14.0 % 11.6-14.4 (BEAKER) (test code = 412) PLATELET COUNT (BEAKER) (test 160 K/CU MM 150-450 code = 756) MEAN PLATELET VOLUME (BEAKER) 11.0 fL 9.4-12.4 (test code = 754) NUCLEATED RED BLOOD CELLS 0 /100 WBC 0-0 (BEAKER) (test code = 413) [id number] 23:46:00 Test Item Value Reference Range Interpretation Comments MAGNESIUM (BEAKER) 2.7 mg/dL 1.6-2.6 H Specimen slightly (test code = 627) hemolyzed [id number] 23:46:00 Test Item Value Reference Range Interpretation Comments POTASSIUM (BEAKER) 4.4 meq/L 3.5-5.1 Specimen slightly (test code = 379) hemolyzed [id number] 23:46:00 Test Item Value Reference Range Interpretation Comments GLUCOSE RANDOM (BEAKER) (test code 131 mg/dL 70-105 H = 652) BASIC METABOLIC [id number] 23:46:00 Test Item Value Reference Range Interpretation Comments SODIUM (BEAKER) 137 meq/L 136-145 (test code = 381) POTASSIUM (BEAKER) 4.4 meq/L 3.5-5.1 Specimen slightly (test code = 379) hemolyzed CHLORIDE (BEAKER) 103 meq/L 98-107 (test code = 382) CO2 (BEAKER) (test 27 meq/L 22-29 code = 355) BLOOD UREA NITROGEN 29 mg/dL 7-21 H (BEAKER) (test code = 354) CREATININE (BEAKER) 1.05 mg/dL 0.57-1.25 Specimen slightly (test code = 358) hemolyzed GLUCOSE RANDOM 131 mg/dL 70-105 H (BEAKER) (test code = 652) CALCIUM (BEAKER) 8.2 mg/dL 8.4-10.2 L (test code = 697) EGFR (BEAKER) (test 69 mL/min/1.73 ESTIMA FABRIZIO GFR IS code = 1092) sq m NOT ACCURATE CREATININE CLEARANCE IN PREDICTING GLOMERULAR FILTRATION RATE . ESTIMATED GFR I S NOT APPLICABLE FOR DIALYSIS PATIEN TS. LACTIC ACID, [id number] 23:41:00 Test Item Value Reference Range Interpretation Comments LACTATE BLOOD 0.9 mmol/L 0.5-2.2 Specimen sligh tly ARTERIAL (2) (BEAKER) hemoly zed (test code = 2874) CBC W/PLT COUNT & AUTO [id number] 23:30:00 Test Item Value Reference Range Interpretation Comments WHITE BLOOD CELL COUNT (BEAKER) 26.0 K/ L 3.5-10.5 H (test code = 775) RED BLOOD CELL COUNT (BEAKER) 4.36 M/ L 4.63-6.08 L (test code = 761) HEMOGLOBIN (BEAKER) (test code = 11.5 GM/DL 13.7-17.5 L 410) HEMATOCRIT (BEAKER) (test code = 36.1 % 40.1-51.0 L 411) MEAN CORPUSCULAR VOLUME (BEAKER) 82.8 fL 79.0-92.2 (test code = 753) MEAN CORPUSCULAR HEMOGLOBIN 26.4 pg 25.7-32.2 (BEAKER) (test code = 751) MEAN CORPUSCULAR HEMOGLOBIN CONC 31.9 GM/DL 32.3-36.5 L (BEAKER) (test code = 752) RED CELL DISTRIBUTION WIDTH 14.0 % 11.6-14.4 (BEAKER) (test code = 412) PLATELET COUNT (BEAKER) (test 250 K/CU MM 150-450 code = 756) MEAN PLATELET VOLUME (BEAKER) 11.0 fL 9.4-12.4 (test code = 754) NUCLEATED RED BLOOD CELLS 0 /100 WBC 0-0 (BEAKER) (test code = 413) NEUTROPHILS RELATIVE PERCENT 89 % (BEAKER) (test code = 429) LYMPHOCYTES RELATIVE PERCENT 3 % (BEAKER) (test code = 430) MONOCYTES RELATIVE PERCENT 7 % (BEAKER) (test code = 431) EOSINOPHILS RELATIVE PERCENT 0 % (BEAKER) (test code = 432) BASOPHILS RELATIVE PERCENT 0 % (BEAKER) (test code = 437) NEUTROPHILS ABSOLUTE COUNT 23.10 K/ L 1.78-5.38 H (BEAKER) (test code = 670) LYMPHOCYTES ABSOLUTE COUNT 0.73 K/ L 1.32-3.57 L (BEAKER) (test code = 414) MONOCYTES ABSOLUTE COUNT (BEAKER) 1.83 K/ L 0.30-0.82 H (test code = 415) EOSINOPHILS ABSOLUTE COUNT 0.00 K/ L 0.04-0.54 L (BEAKER) (test code = 416) BASOPHILS ABSOLUTE COUNT (BEAKER) 0.06 K/ L 0.01-0.08 (test code = 417) IMMATURE GRANULOCYTES-RELATIVE 1 % 0-1 PERCENT (BEAKER) (test code = 2801) BLOOD GAS, [id number] 23:23:00 Test Item Value Reference Range Interpretation Comments PH ARTERIAL (BEAKER) (test code = 7.43 7.35-7.45 383) PCO2 ARTERIAL (BEAKER) (test code 44 mmHg 35-45 = 384) PO2 ARTERIAL (BEAKER) (test code = 93 mmHg 80-90 H 385) O2 SATURATION ARTERIAL (BEAKER) 97.5 % 96.0-97.0 H (test code = 386) HCO3 ARTERIAL (BEAKER) (test code 29 mmol/L 21-29 = 388) BASE EXCESS ARTERIAL (BEAKER) 3.7 mmol/L -2.0-3.0 H (test code = 387) PATIENT TEMPERATURE (BEAKER) (test 36.1 C code = 1818) FIO2 (BEAKER) (test code = 1819) 40.0 % GLUCOSE-STAT [id number] 23:23:00 Test Item Value Reference Range Interpretation Comments GLUCOSE RANDOM (BEAKER) (test code 135 mg/dL 70-110 H = 652) HGB/HCT (H&H) - STAT [id number] 23:23:00 Test Item Value Reference Range Interpretation Comments HEMOGLOBIN (BEAKER) (test code = 11.7 g/dL 13.0-16.8 L 410) HEMATOCRIT (BEAKER) (test code = 34.0 % 40.0-50.0 L 411) SODIUM NA-STAT [id number] 23:22:00 Test Item Value Reference Range Interpretation Comments SODIUM (BEAKER) (test code = 381) 137 meq/L 135-148 POTASSIUM-STAT [id number] 23:22:00 Test Item Value Reference Range Interpretation Comments POTASSIUM (BEAKER) (test code = 4.0 meq/L 3.6-5.5 379) CALCIUM, [id number] 23:22:00 Test Item Value Reference Range Interpretation Comments CALCIUM IONIZED (BEAKER) (test 1.14 mmol/L 1.12-1.27 code = 698) PH, BLOOD (AKER) (test code = 7.42 1810) OXYGEN SATURATION, [id number] 23:21:00 Test Item Value Reference Range Interpretation Comments O2 SATURATION (MEASURED) ([facility]) 73.1 % (test code = 1455) POCT-GLUCOSE [id number] 23:14:00 Test Item Value Reference Range Interpretation Comments POC-GLUCOSE METER 139 mg/dL 70-110 H TESTED AT [place] [address] ([facility]) (test code = [facility] 1538) [id number] POCT-GLUCOSE [id number] 18:37:00 Test Item Value Reference Range Interpretation Comments POC-GLUCOSE METER 137 mg/dL 70-110 H TESTED AT [place] [address] ([facility]) (test code = [facility] 1538) [address] SPUTUM CULTURE + GRAM [id number] 17:48:00 Test Item Value Reference Range Interpretation Comments CULTURE ([facility]) A 4+ [place] eria (test code = hina 1095) GRAM STAIN 1+ WBCs RESULT ([facility]) (test code = 1123) GRAM STAIN 0-5 epithelial RESULT (BEAKER) cells (test code = 735642) GRAM STAIN 2+ gram positive RESULT (BEAKER) cocci in chains (test code = and pairs 315357) GRAM STAIN 1+ gram positive RESULT ([facility]) cocci in clusters (test code = 603916) 4+ Normal respiratory deandra presentPOCT-GLUCOSE [id number] 17:06:00 Test Item Value Reference Range Interpretation Comments POC-GLUCOSE METER 129 mg/dL 70-110 H TESTED AT [facility] ([facility]) (test code = [facility] 1538) [address] POCT-GLUCOSE [id number] 15:21:00 Test Item Value Reference Range Interpretation Comments POC-GLUCOSE METER 152 mg/dL 70-110 H TESTED AT [facility] (BEAKER) (test code = [place] 1538) [address] BASIC METABOLIC [id number] 14:59:00 Test Item Value Reference Range Interpretation Comments SODIUM (BEAKER) 137 meq/L 136-145 (test code = 381) POTASSIUM (BEAKER) 4.2 meq/L 3.5-5.1 (test code = 379) CHLORIDE (BEAKER) 102 meq/L 98-107 (test code = 382) CO2 (BEAKER) (test 28 meq/L 22-29 code = 355) BLOOD UREA NITROGEN 31 mg/dL 7-21 H (BEAKER) (test code = 354) CREATININE (BEAKER) 1.08 mg/dL 0.57-1.25 (test code = 358) GLUCOSE RANDOM 183 mg/dL 70-105 H (BEAKER) (test code = 652) CALCIUM (BEAKER) 7.9 mg/dL 8.4-10.2 L (test code = 697) EGFR (BEAKER) (test 67 mL/min/1.73 ESTIMA FABRIZIO GFR IS code = 1092) sq m NOT ACCURATE CREATININE CLEARANCE IN PREDICTING GLOMERULAR FILTRATION RATE . ESTIMATED GFR I S NOT APPLICABLE FOR DIALYSIS PATIEN TS. CBC W/PLT COUNT & AUTO [id number] 14:49:00 Test Item Value Reference Range Interpretation Comments WHITE BLOOD CELL COUNT (BEAKER) 22.5 K/ L 3.5-10.5 H (test code = 775) RED BLOOD CELL COUNT (BEAKER) 4.32 M/ L 4.63-6.08 L (test code = 761) HEMOGLOBIN (BEAKER) (test code = 11.4 GM/DL 13.7-17.5 L 410) HEMATOCRIT (BEAKER) (test code = 36.0 % 40.1-51.0 L 411) MEAN CORPUSCULAR VOLUME (BEAKER) 83.3 fL 79.0-92.2 (test code = 753) MEAN CORPUSCULAR HEMOGLOBIN 26.4 pg 25.7-32.2 (BEAKER) (test code = 751) MEAN CORPUSCULAR HEMOGLOBIN CONC 31.7 GM/DL 32.3-36.5 L (BEAKER) (test code = 752) RED CELL DISTRIBUTION WIDTH 13.8 % 11.6-14.4 (BEAKER) (test code = 412) PLATELET COUNT (BEAKER) (test 182 K/CU MM 150-450 code = 756) MEAN PLATELET VOLUME (BEAKER) 11.0 fL 9.4-12.4 (test code = 754) NUCLEATED RED BLOOD CELLS 0 /100 WBC 0-0 (BEAKER) (test code = 413) (CELLAVISION MANUAL DIFF)2018-12-15 14:49:00 Test Item Value Reference Range Interpretation Comments NEUTROPHILS - REL 93 % (CELLAVISION)(BEAKER) (test code = 2816) LYMPHOCYTES - REL 2 % (CELLAVISION)(BEAKER) (test code = 2817) MONOCYTES - REL 2 % (CELLAVISION)(BEAKER) (test code = 2818) MYELOCYTES - REL 1 % 0-0 H (CELLAVISION)(BEAKER) (test code = 2822) BANDS - REL (CELLAVISION)(BEAKER) 2 % 0-10 (test code = 2826) NEUTROPHILS - ABS 20.93 K/ul 1.78-5.38 H (CELLAVISION)(BEAKER) (test code = 2830) LYMPHOCYTES - ABS 0.45 K/ul 1.32-3.57 L (CELLAVISION)(BEAKER) (test code = 2831) MONOCYTES - ABS 0.45 K/uL 0.30-0.82 (CELLAVISION)(BEAKER) (test code = 2832) MYELOCYTES-ABS 0.23 K/uL 0.00-0.00 H (CELLAVISION)(BEAKER) (test code = 2837) BANDS - ABS (CELLAVISION)(BEAKER) 0.45 K/uL 0.00-0.80 (test code = 2840) TOTAL COUNTED (BEAKER) (test code 100 = 1351) WBC MORPHOLOGY (BEAKER) (test Normal code = 487) PLT MORPHOLOGY (BEAKER) (test Normal code = 486) ANISOCYTOSIS (BEAKER) (test code 2+ moderate = 961) MICROCYTES (BEAKER) (test code = 2+ moderate 965) POIKILOCYTES (BEAKER) (test code 1+ few = 966) ELLIPTOCYTES (BEAKER) (test code 1+ few = 962) ARTIFACT (CELLAVISION)(BEAKER) Present (test code = 3432) PLATELET CONCENTRATION Adequate (CELLAVISION)(BEAKER) (test code = 3438) Received comment: User comments: Slide comments:RAD, CHEST, 1 VIEW, NON DEPT 2018-12-15 14:44:00Reason for exam:->post opShould this be performed at the bedside?->YesFINAL REPORT AP chest HISTORY: Postoperative. COMPARISON: 12/14/2018. IMPRESSION: Interval sternotomy. Mediastinal and pleural drains present. The tracheal tube appears in satisfact ory position. Right IJ pulmonary artery catheter with tip near pulmonary outflow tract. Heart size within normal limits. Left basilar opacity suggestive of atelectasis. No pneumothorax. Signed: Serjio Lawrence MDReport Verified Date/Time: 12/15/2018 14:44:04 Reading Location: [facility] Mammo Reading Room IC ACID, [id number] 14:41:00 Test Item Value Reference Range Interpretation Comments LACTATE BLOOD ARTERIAL (2) 1.2 mmol/L 0.5-2.2 (BEAKER) (test code = 2874) [id number] 14:39:00 Test Item Value Reference Range Interpretation Comments MAGNESIUM (BEAKER) (test code = 1.9 mg/dL 1.6-2.6 627) OXYGEN SATURATION, [id number] 14:20:00 Test Item Value Reference Range Interpretation Comments O2 SATURATION (MEASURED) (BEAKER) 62.8 % (test code = 1455) SODIUM NA-STAT [id number] 14:17:00 Test Item Value Reference Range Interpretation Comments SODIUM (BEAKER) (test code = 381) 136 meq/L 135-148 POTASSIUM-STAT [id number] 14:17:00 Test Item Value Reference Range Interpretation Comments POTASSIUM (BEAKER) (test code = 4.0 meq/L 3.6-5.5 379) BLOOD GAS, [id number] 14:17:00 Test Item Value Reference Range Interpretation Comments PH ARTERIAL (BEAKER) (test code = 7.38 7.35-7.45 383) PCO2 ARTERIAL (BEAKER) (test code 45 mmHg 35-45 = 384) PO2 ARTERIAL (BEAKER) (test code = 128 mmHg 80-90 H 385) O2 SATURATION ARTERIAL (BEAKER) 98.6 % 96.0-97.0 H (test code = 386) HCO3 ARTERIAL (BEAKER) (test code 27 mmol/L 21-29 = 388) BASE EXCESS ARTERIAL (BEAKER) 0.6 mmol/L -2.0-3.0 (test code = 387) PATIENT TEMPERATURE (BEAKER) (test 35.7 C code = 1818) FIO2 (BEAKER) (test code = 1819) 50.0 % GLUCOSE-STAT [id number] 14:17:00 Test Item Value Reference Range Interpretation Comments GLUCOSE RANDOM (BEAKER) (test code 181 mg/dL 70-110 H = 652) HGB/HCT (H&H) - STAT [id number] 14:17:00 Test Item Value Reference Range Interpretation Comments HEMOGLOBIN (BEAKER) (test code = 11.5 g/dL 13.0-16.8 L 410) HEMATOCRIT (BEAKER) (test code = 34.0 % 40.0-50.0 L 411) [id number] 13:03:00 Test Item Value Reference Range Interpretation Comments ACTIVATED CLOTTING TIME 114 sec TEST ED AT [place] [address] ([facility]) (test code = [place] 441) [id number] 13:02:00 Test Item Value Reference Range Interpretation Comments ACTIVATED CLOTTING TIME 472 sec TEST ED AT [place] [address] ([facility]) (test code = [place] [address]) [address] [id number] 13:02:00 Test Item Value Reference Range Interpretation Comments ACTIVATED CLOTTING TIME 378 sec TEST ED AT [place] [address] ([facility]) (test code = [place] 441) [address] [id number] 13:02:00 Test Item Value Reference Range Interpretation Comments ACTIVATED CLOTTING TIME 428 sec TEST ED AT [place] [address] ([facility]) (test code = [place] [address]) [address] [id number] 13:02:00 Test Item Value Reference Range Interpretation Comments ACTIVATED CLOTTING TIME 483 sec TEST ED AT [facility] (BEAKER) (test code = [place] [address] [facility] 441) [address] [id number] 12:13:00 Test Item Value Reference Range Interpretation Comments FIBRINOGEN LEVEL (BEAKER) (test 354 mg/dl 225-434 code = 658) [id number] 12:13:00 Test Item Value Reference Range Interpretation Comments PARTIAL THROMBOPLASTIN TIME 46.7 seconds 22.5-36.0 H (BEAKER) (test code = 760) PROTHROMBIN [id number] 12:12:00 Test Item Value Reference Range Interpretation Comments PROTIME (BEAKER) (test code = 17.7 seconds 11.9-14.2 H 759) INR (BEAKER) (test code = 370) 1.5 <=5.9 Effective 12/03/2018: PT Reference Range ChangeNew: 11.9-14.2 Previous: 11.7- 14.7RECOMMENDED COUMADIN/WARFARIN INR THERAPY RANGESSTANDARD DOSE: 2.0-3.0 Includes: PROPHYLAXIS for venous thrombosis, systemic embolization; TREATMENT for venous thrombosis and/or pulmonary embolus.HIGH RISK: Target INR is2.5-3.5 for patients wiht mechanical heart valves.PLATELET [id number] 12:05:00 Test Item Value Reference Range Interpretation Comments PLATELET COUNT (BEAKER) (test 206 K/CU MM 150-450 code = 756) POTASSIUM-STAT [id number] 11:59:00 Test Item Value Reference Range Interpretation Comments POTASSIUM (BEAKER) (test code = 4.6 meq/L 3.6-5.5 379) CALCIUM, [id number] 11:59:00 Test Item Value Reference Range Interpretation Comments CALCIUM IONIZED (BEAKER) (test 1.14 mmol/L 1.12-1.27 code = 698) PH, BLOOD (BEAKER) (test code = 7.39 1810) BLOOD GAS, [id number] 11:59:00 Test Item Value Reference Range Interpretation Comments PH ARTERIAL (BEAKER) (test code = 7.40 7.35-7.45 383) PCO2 ARTERIAL (BEAKER) (test code 48 mmHg 35-45 H = 384) PO2 ARTERIAL (BEAKER) (test code = 360 mmHg 80-90 H 385) O2 SATURATION ARTERIAL (BEAKER) 99.8 % 96.0-97.0 H (test code = 386) HCO3 ARTERIAL (BEAKER) (test code 29 mmol/L 21-29 = 388) BASE EXCESS ARTERIAL (BEAKER) 3.4 mmol/L -2.0-3.0 H (test code = 387) PATIENT TEMPERATURE (BEAKER) (test 36.0 C code = 1818) FIO2 (BEAKER) (test code = 1819) 100.0 % SODIUM NA-STAT [id number] 11:59:00 Test Item Value Reference Range Interpretation Comments SODIUM (BEAKER) (test code = 381) 133 meq/L 135-148 L GLUCOSE-STAT [id number] 11:59:00 Test Item Value Reference Range Interpretation Comments GLUCOSE RANDOM (BEAKER) (test code 234 mg/dL 70-110 H = 652) HGB/HCT (H&H) - STAT [id number] 11:59:00 Test Item Value Reference Range Interpretation Comments HEMOGLOBIN (BEAKER) (test code = 11.6 g/dL 13.0-16.8 L 410) HEMATOCRIT (BEAKER) (test code = 34.0 % 40.0-50.0 L 411) POCT-GLUCOSE [id number] 11:22:00 Test Item Value Reference Range Interpretation Comments POC-GLUCOSE METER 133 mg/dL 70-110 H TESTED AT [facility] [address] (BEAKER) (test code = [address] [facility] 1538) [address] BLOOD GAS, [id number] 11:20:00 Test Item Value Reference Range Interpretation Comments PH ARTERIAL (BEAKER) (test code = 7.44 7.35-7.45 383) PCO2 ARTERIAL (BEAKER) (test code 46 mmHg 35-45 H = 384) PO2 ARTERIAL (BEAKER) (test code = 185 mmHg 80-90 H 385) O2 SATURATION ARTERIAL (BEAKER) 99.3 % 96.0-97.0 H (test code = 386) HCO3 ARTERIAL (BEAKER) (test code 31 mmol/L 21-29 H = 388) BASE EXCESS ARTERIAL (BEAKER) 5.7 mmol/L -2.0-3.0 H (test code = 387) PATIENT TEMPERATURE (BEAKER) (test 36.6 C code = 1818) FIO2 (BEAKER) (test code = 1819) 75.0 % SODIUM NA-STAT [id number] 11:20:00 Test Item Value Reference Range Interpretation Comments SODIUM (BEAKER) (test code = 381) 132 meq/L 135-148 L GLUCOSE-STAT [id number] 11:20:00 Test Item Value Reference Range Interpretation Comments GLUCOSE RANDOM (BEAKER) (test code 205 mg/dL 70-110 H = 652) HGB/HCT (H&H) - STAT [id number] 11:20:00 Test Item Value Reference Range Interpretation Comments HEMOGLOBIN (BEAKER) (test code = 10.9 g/dL 13.0-16.8 L 410) HEMATOCRIT (BEAKER) (test code = 32.0 % 40.0-50.0 L 411) POTASSIUM-STAT [id number] 11:19:00 Test Item Value Reference Range Interpretation Comments POTASSIUM (BEAKER) (test code = 5.2 meq/L 3.6-5.5 379) BLOOD GAS, [id number] 11:00:00 Test Item Value Reference Range Interpretation Comments PH ARTERIAL (BEAKER) (test code = 7.44 7.35-7.45 383) PCO2 ARTERIAL (BEAKER) (test code 44 mmHg 35-45 = 384) PO2 ARTERIAL (BEAKER) (test code = 248 mmHg 80-90 H 385) O2 SATURATION ARTERIAL (BEAKER) 99.6 % 96.0-97.0 H (test code = 386) HCO3 ARTERIAL (BEAKER) (test code 30 mmol/L 21-29 H = 388) BASE EXCESS ARTERIAL (BEAKER) 5.0 mmol/L -2.0-3.0 H (test code = 387) PATIENT TEMPERATURE (BEAKER) (test 36.6 C code = 1818) FIO2 (BEAKER) (test code = 1819) 70.0 % GLUCOSE-STAT [id number] 11:00:00 Test Item Value Reference Range Interpretation Comments GLUCOSE RANDOM (BEAKER) (test code 180 mg/dL 70-110 H = 652) SODIUM NA-STAT [id number] 11:00:00 Test Item Value Reference Range Interpretation Comments SODIUM (BEAKER) (test code = 381) 131 meq/L 135-148 L HGB/HCT (H&H) - STAT [id number] 11:00:00 Test Item Value Reference Range Interpretation Comments HEMOGLOBIN (BEAKER) (test code = 9.4 g/dL 13.0-16.8 L 410) HEMATOCRIT (BEAKER) (test code = 28.0 % 40.0-50.0 L 411) POTASSIUM-STAT [id number] 10:58:00 Test Item Value Reference Range Interpretation Comments POTASSIUM (BEAKER) (test code = 5.0 meq/L 3.6-5.5 379) BLOOD GAS, [id number] 10:32:00 Test Item Value Reference Range Interpretation Comments PH ARTERIAL (BEAKER) (test code = 7.37 7.35-7.45 383) PCO2 ARTERIAL (BEAKER) (test code 50 mmHg 35-45 H = 384) PO2 ARTERIAL (BEAKER) (test code = 433 mmHg 80-90 H 385) O2 SATURATION ARTERIAL (BEAKER) 99.8 % 96.0-97.0 H (test code = 386) HCO3 ARTERIAL (BEAKER) (test code 29 mmol/L 21-29 = 388) BASE EXCESS ARTERIAL (BEAKER) 2.6 mmol/L -2.0-3.0 (test code = 387) PATIENT TEMPERATURE (BEAKER) (test 35.5 C code = 1818) FIO2 (BEAKER) (test code = 1819) 85.0 % SODIUM NA-STAT [id number] 10:32:00 Test Item Value Reference Range Interpretation Comments SODIUM (BEAKER) (test code = 381) 127 meq/L 135-148 L GLUCOSE-STAT [id number] 10:32:00 Test Item Value Reference Range Interpretation Comments GLUCOSE RANDOM (BEAKER) (test code 132 mg/dL 70-110 H = 652) HGB/HCT (H&H) - STAT [id number] 10:32:00 Test Item Value Reference Range Interpretation Comments HEMOGLOBIN (BEAKER) (test code = 10.2 g/dL 13.0-16.8 L 410) HEMATOCRIT (BEAKER) (test code = 30.0 % 40.0-50.0 L 411) POTASSIUM-STAT [id number] 10:31:00 Test Item Value Reference Range Interpretation Comments POTASSIUM (BEAKER) (test code = 3.9 meq/L 3.6-5.5 379) CALCIUM, [id number] 08:54:00 Test Item Value Reference Range Interpretation Comments CALCIUM IONIZED (BEAKER) (test 1.11 mmol/L 1.12-1.27 L code = 698) PH, BLOOD (BEAKER) (test code = 7.48 1810) BLOOD GAS, [id number] 08:54:00 Test Item Value Reference Range Interpretation Comments PH ARTERIAL (BEAKER) (test code = 7.50 7.35-7.45 H 383) PCO2 ARTERIAL (BEAKER) (test code 38 mmHg 35-45 = 384) PO2 ARTERIAL (BEAKER) (test code = 306 mmHg 80-90 H 385) O2 SATURATION ARTERIAL (BEAKER) 99.7 % 96.0-97.0 H (test code = 386) HCO3 ARTERIAL (BEAKER) (test code 29 mmol/L 21-29 = 388) BASE EXCESS ARTERIAL (BEAKER) 5.1 mmol/L -2.0-3.0 H (test code = 387) PATIENT TEMPERATURE (BEAKER) (test 35.8 C code = 1818) FIO2 (BEAKER) (test code = 1819) 100.0 % SODIUM NA-STAT [id number] 08:54:00 Test Item Value Reference Range Interpretation Comments SODIUM (BEAKER) (test code = 381) 134 meq/L 135-148 L HGB/HCT (H&H) - STAT [id number] 08:54:00 Test Item Value Reference Range Interpretation Comments HEMOGLOBIN (BEAKER) (test code = 13.0 g/dL 13.0-16.8 410) HEMATOCRIT (BEAKER) (test code = 38.0 % 40.0-50.0 L 411) GLUCOSE-STAT [id number] 08:53:00 Test Item Value Reference Range Interpretation Comments GLUCOSE RANDOM (BEAKER) (test code 109 mg/dL 70-110 = 652) POTASSIUM-STAT [id number] 08:53:00 Test Item Value Reference Range Interpretation Comments POTASSIUM (BEAKER) (test code = 4.0 meq/L 3.6-5.5 379) [id number] 02:19:00 Test Item Value Reference Range Interpretation Comments PARTIAL THROMBOPLASTIN TIME 40.0 seconds 22.5-36.0 H (BEAKER) (test code = 760) [id number] 01:46:00 Test Item Value Reference Range Interpretation Comments PHOSPHORUS (BEAKER) (test code = 4.5 mg/dL 2.3-4.7 604) [id number] 01:46:00 Test Item Value Reference Range Interpretation Comments MAGNESIUM (BEAKER) (test code = 1.9 mg/dL 1.6-2.6 627) BASIC METABOLIC [id number] 01:46:00 Test Item Value Reference Range Interpretation Comments SODIUM (BEAKER) 137 meq/L 136-145 (test code = 381) POTASSIUM (BEAKER) 3.8 meq/L 3.5-5.1 (test code = 379) CHLORIDE (BEAKER) 96 meq/L 98-107 L (test code = 382) CO2 (BEAKER) (test 32 meq/L 22-29 H code = 355) BLOOD UREA NITROGEN 40 mg/dL 7-21 H (BEAKER) (test code = 354) CREATININE (BEAKER) 1.40 mg/dL 0.57-1.25 H (test code = 358) GLUCOSE RANDOM 120 mg/dL 70-105 H (BEAKER) (test code = 652) CALCIUM (BEAKER) 9.1 mg/dL 8.4-10.2 (test code = 697) EGFR (BEAKER) (test 50 mL/min/1.73 ESTIMA FABRIZIO GFR IS code = 1092) sq m NOT ACCURATE CREATININE CLEARANCE IN PREDICTING GLOMERULAR FILTRATION RATE . ESTIMATED GFR I S NOT APPLICABLE FOR DIALYSIS PATIEN TS. CBC (HEMOGRAM ONLY)2018-12-15 01:20:00 Test Item Value Reference Range Interpretation Comments WHITE BLOOD CELL COUNT (BEAKER) 13.1 K/ L 3.5-10.5 H (test code = 775) RED BLOOD CELL COUNT (BEAKER) 5.10 M/ L 4.63-6.08 (test code = 761) HEMOGLOBIN (BEAKER) (test code = 13.4 GM/DL 13.7-17.5 L 410) HEMATOCRIT (BEAKER) (test code = 41.4 % 40.1-51.0 411) MEAN CORPUSCULAR VOLUME ([facility]) 81.2 fL 79.0-92.2 (test code = 753) MEAN CORPUSCULAR HEMOGLOBIN 26.3 pg 25.7-32.2 (AKER) (test code = 751) MEAN CORPUSCULAR HEMOGLOBIN CONC 32.4 GM/DL 32.3-36.5 (AKER) (test code = 752) RED CELL DISTRIBUTION WIDTH 13.7 % 11.6-14.4 ([facility]) (test code = 412) PLATELET COUNT ([facility]) (test 280 K/CU MM 150-450 code = 756) MEAN PLATELET VOLUME ([facility]) 10.5 fL 9.4-12.4 (test code = 754) NUCLEATED RED BLOOD CELLS 0 /100 WBC 0-0 ([facility]) (test code = 413) POCT-GLUCOSE [id number] 21:22:00 Test Item Value Reference Range Interpretation Comments POC-GLUCOSE METER 152 mg/dL 70-110 H TESTED AT [place] [address] ([facility]) (test code = [facility] 1538) [address] POCT-GLUCOSE [id number] 18:20:00 Test Item Value Reference Range Interpretation Comments POC-GLUCOSE METER 129 mg/dL 70-110 H TESTED AT [place] [address] ([facility]) (test code = [facility] 1538) [address] BLOOD [id number] 14:01:00 Test Item Value Reference Range Interpretation Comments [facility] (test No growth in 5 days code = 1095) BLOOD [id number] 14:01:00 Test Item Value Reference Range Interpretation Comments CULTURE ([facility]) (test No growth in 5 days code = 1095) RAD, CHEST, 1 VIEW, NON [id number] 13:18:00Reason for exam:->coughFINAL REPORT AP view of [...] MDReport Verified Date/Time: 12/14/2018 13:18:23 Reading Location: [facility] [id number] RI Body Reading Room POCT-GLUCOSE [id number] 11:57:00 Test Item Value Reference Range Interpretation Comments POC-GLUCOSE METER 143 mg/dL 70-110 H TESTED AT [place] [address] (BEAKER) (test code = [facility] 1538) [address] POCT-GLUCOSE [id number] 08:42:00 Test Item Value Reference Range Interpretation Comments POC-GLUCOSE METER 114 mg/dL 70-110 H TEST[facility] AT [place] [address] [facility] (test code = [facility] 1538) [address] POCT-GLUCOSE [id number] 06:57:00 Test Item Value Reference Range Interpretation Comments POC-GLUCOSE METER 144 mg/dL 70-110 H TESTED AT [place] [address] (BEAKER) (test code = [facility] 1538) [id number] 06:49:00 Test Item Value Reference Range Interpretation Comments PHOSPHORUS (BEAKER) (test code = 4.8 mg/dL 2.3-4.7 H 604) [id number] 06:49:00 Test Item Value Reference Range Interpretation Comments MAGNESIUM (BEAKER) (test code = 2.0 mg/dL 1.6-2.6 627) BASIC METABOLIC [id number] 06:49:00 Test Item Value Reference Range Interpretation Comments SODIUM (BEAKER) 138 meq/L 136-145 (test code = 381) POTASSIUM (BEAKER) 4.0 meq/L 3.5-5.1 (test code = 379) CHLORIDE (BEAKER) 96 meq/L 98-107 L (test code = 382) CO2 (BEAKER) (test 34 meq/L 22-29 H code = 355) BLOOD UREA NITROGEN 39 mg/dL 7-21 H (BEAKER) (test code = 354) CREATININE (BEAKER) 1.21 mg/dL 0.57-1.25 (test code = 358) GLUCOSE RANDOM 116 mg/dL 70-105 H (BEAKER) (test code = 652) CALCIUM (BEAKER) 9.3 mg/dL 8.4-10.2 (test code = 697) EGFR (BEAKER) (test 59 mL/min/1.73 ESTIMA FABRIZIO GFR IS code = 1092) sq m NOT ACCURATE CREATININE CLEARANCE IN PREDICTING GLOMERULAR FILTRATION RATE . ESTIMATED GFR I S NOT APPLICABLE FOR DIALYSIS PATIEN TS. [id number] 06:41:00 Test Item Value Reference Range Interpretation Comments PARTIAL THROMBOPLASTIN TIME 73.4 seconds 22.5-36.0 H (BEAKER) (test code = 760) CBC (HEMOGRAM ONLY)2018-12-14 06:34:00 Test Item Value Reference Range Interpretation Comments WHITE BLOOD CELL COUNT (BEAKER) 11.8 K/ L 3.5-10.5 H (test code = 775) RED BLOOD CELL COUNT (BEAKER) 5.42 M/ L 4.63-6.08 (test code = 761) HEMOGLOBIN (BEAKER) (test code = 14.1 GM/DL 13.7-17.5 410) HEMATOCRIT (BEAKER) (test code = 45.2 % 40.1-51.0 411) MEAN CORPUSCULAR VOLUME (BEAKER) 83.4 fL 79.0-92.2 (test code = 753) MEAN CORPUSCULAR HEMOGLOBIN 26.0 pg 25.7-32.2 (BEAKER) (test code = 751) MEAN CORPUSCULAR HEMOGLOBIN CONC 31.2 GM/DL 32.3-36.5 L (BEAKER) (test code = 752) RED CELL DISTRIBUTION WIDTH 13.8 % 11.6-14.4 (BEAKER) (test code = 412) PLATELET COUNT (BEAKER) (test 282 K/CU MM 150-450 code = 756) MEAN PLATELET VOLUME (BEAKER) 10.9 fL 9.4-12.4 (test code = 754) NUCLEATED RED BLOOD CELLS 0 /100 WBC 0-0 (BEAKER) (test code = 413) [id number] 00:03:00 Test Item Value Reference Range Interpretation Comments PARTIAL THROMBOPLASTIN TIME 75.0 seconds 22.5-36.0 H (BEAKER) (test code = 760) POCT-GLUCOSE [id number] 22:24:00 Test Item Value Reference Range Interpretation Comments POC-GLUCOSE METER 136 mg/dL 70-110 H TESTED AT [place] [address] (BEAKER) (test code = [facility] [place] 1538) [address] [id number] 16:32:00 Test Item Value Reference Range Interpretation Comments PARTIAL THROMBOPLASTIN TIME 100.4 seconds 22.5-36.0 H (BEAKER) (test code = 760) POCT-GLUCOSE [id number] 09:13:00 Test Item Value Reference Range Interpretation Comments POC-GLUCOSE METER 169 mg/dL 70-110 H TESTED AT [place] [address] (BEAKER) (test code = [facility] 1538) [address] [id number] 09:04:00 Test Item Value Reference Range Interpretation Comments PARTIAL THROMBOPLASTIN TIME 105.9 seconds 22.5-36.0 H (BEAKER) (test code = 760) SPUTUM CULTURE + GRAM [id number] 08:31:00 Test Item Value Reference Range Interpretation Comments CULTURE (BEAKER) 4+ Normal respiratory (test code = 1095) deandra present GRAM STAIN RESULT 1+ WBCs (BEAKER) (test code = 1123) GRAM STAIN RESULT 0-5 epithelial cells (BEAKER) (test code = 47460) GRAM STAIN RESULT <1+ gram negative rods (BEAKER) (test code = 333282) GRAM STAIN RESULT <1+ gram positive cocci (BEAKER) (test code = in pairs 881904) 3+ NormaPOCT-GLUCOSE [id number] 06:02:00 Test Item Value Reference Range Interpretation Comments POC-GLUCOSE METER 192 mg/dL 70-110 H TESTED AT [facility] 6720 (BEAKER) (test code = [facility] 1538) [address] [id number] 05:34:00 Test Item Value Reference Range Interpretation Comments PHOSPHORUS (BEAKER) (test code = 4.3 mg/dL 2.3-4.7 604) [id number] 05:34:00 Test Item Value Reference Range Interpretation Comments MAGNESIUM (BEAKER) (test code = 2.0 mg/dL 1.6-2.6 627) BASIC METABOLIC [id number] 05:34:00 Test Item Value Reference Range Interpretation Comments SODIUM (BEAKER) 141 meq/L 136-145 (test code = 381) POTASSIUM (BEAKER) 4.1 meq/L 3.5-5.1 (test code = 379) CHLORIDE (BEAKER) 97 meq/L 98-107 L (test code = 382) CO2 (BEAKER) (test 33 meq/L 22-29 H code = 355) BLOOD UREA NITROGEN 36 mg/dL 7-21 H (BEAKER) (test code = 354) CREATININE (BEAKER) 1.19 mg/dL 0.57-1.25 (test code = 358) GLUCOSE RANDOM 115 mg/dL 70-105 H (BEAKER) (test code = 652) CALCIUM (BEAKER) 9.5 mg/dL 8.4-10.2 (test code = 697) EGFR (BEAKER) (test 60 mL/min/1.73 ESTIMA FABRIZIO GFR IS code = 1092) sq m NOT ACCURATE CREATININE CLEARANCE IN PREDICTING GLOMERULAR FILTRATION RATE . ESTIMATED GFR I S NOT APPLICABLE FOR DIALYSIS PATIEN TS. CBC (HEMOGRAM ONLY)2018-12-13 04:50:00 Test Item Value Reference Range Interpretation Comments WHITE BLOOD CELL COUNT (BEAKER) 14.2 K/ L 3.5-10.5 H (test code = 775) RED BLOOD CELL COUNT (BEAKER) 5.34 M/ L 4.63-6.08 (test code = 761) HEMOGLOBIN (BEAKER) (test code = 13.9 GM/DL 13.7-17.5 410) HEMATOCRIT (BEAKER) (test code = 43.8 % 40.1-51.0 411) MEAN CORPUSCULAR VOLUME (BEAKER) 82.0 fL 79.0-92.2 (test code = 753) MEAN CORPUSCULAR HEMOGLOBIN 26.0 pg 25.7-32.2 (BEAKER) (test code = 751) MEAN CORPUSCULAR HEMOGLOBIN CONC 31.7 GM/DL 32.3-36.5 L (BEAKER) (test code = 752) RED CELL DISTRIBUTION WIDTH 13.7 % 11.6-14.4 (BEAKER) (test code = 412) PLATELET COUNT (BEAKER) (test 307 K/CU MM 150-450 code = 756) MEAN PLATELET VOLUME (BEAKER) 11.1 fL 9.4-12.4 (test code = 754) NUCLEATED RED BLOOD CELLS 0 /100 WBC 0-0 (BEAKER) (test code = 413) [id number] 01:19:00 Test Item Value Reference Range Interpretation Comments PARTIAL THROMBOPLASTIN TIME 100.2 seconds 22.5-36.0 H (BEAKER) (test code = 760) POCT-GLUCOSE [id number] 00:15:00 Test Item Value Reference Range Interpretation Comments POC-GLUCOSE METER 171 mg/dL 70-110 H [facility] AT [place] [address] [facility] (test code = [address] [facility] 1538) [address] BASIC METABOLIC [id number] 21:26:00 Test Item Value Reference Range Interpretation Comments SODIUM (BEAKER) 139 meq/L 136-145 (test code = 381) POTASSIUM (BEAKER) 4.6 meq/L 3.5-5.1 Specimen slightly (test code = 379) hemolyzed CHLORIDE (BEAKER) 94 meq/L 98-107 L (test code = 382) CO2 (BEAKER) (test 32 meq/L 22-29 H code = 355) BLOOD UREA NITROGEN 39 mg/dL 7-21 H (BEAKER) (test code = 354) CREATININE (BEAKER) 1.54 mg/dL 0.57-1.25 H Specimen slightly (test code = 358) hemolyzed GLUCOSE RANDOM 328 mg/dL 70-105 H (BEAKER) (test code = 652) CALCIUM (BEAKER) 9.7 mg/dL 8.4-10.2 (test code = 697) EGFR (BEAKER) (test 45 mL/min/1.73 ESTIMA FABRIZIO GFR IS code = 1092) sq m NOT ACCURATE CREATININE CLEARANCE IN PREDICTING GLOMERULAR FILTRATION RATE . ESTIMATED GFR I S NOT APPLICABLE FOR DIALYSIS PATIEN TS. [id number] 18:15:00 Test Item Value Reference Range Interpretation Comments PARTIAL THROMBOPLASTIN TIME 105.1 seconds 22.5-36.0 H (BEAKER) (test code = 760) POCT-GLUCOSE [id number] 16:30:00 Test Item Value Reference Range Interpretation Comments POC-GLUCOSE METER 208 mg/dL 70-110 H TEST[facility] AT [facility] (test code = [facility] 1538) [address] [id number] 10:28:00 Test Item Value Reference Range Interpretation Comments PARTIAL THROMBOPLASTIN TIME 104.3 seconds 22.5-36.0 H (BEAKER) (test code = 760) BASIC METABOLIC [id number] 09:13:00 Test Item Value Reference Range Interpretation Comments SODIUM (BEAKER) 139 meq/L 136-145 (test code = 381) POTASSIUM (BEAKER) 3.8 meq/L 3.5-5.1 (test code = 379) CHLORIDE (BEAKER) 97 meq/L 98-107 L (test code = 382) CO2 (BEAKER) (test 30 meq/L 22-29 H code = 355) BLOOD UREA NITROGEN 36 mg/dL 7-21 H (BEAKER) (test code = 354) CREATININE (BEAKER) 1.44 mg/dL 0.57-1.25 H (test code = 358) GLUCOSE RANDOM 183 mg/dL 70-105 H (BEAKER) (test code = 652) CALCIUM (BEAKER) 9.2 mg/dL 8.4-10.2 (test code = 697) EGFR (BEAKER) (test 48 mL/min/1.73 ESTIMA FABRIZIO GFR IS code = 1092) sq m NOT ACCURATE CREATININE CLEARANCE IN PREDICTING GLOMERULAR FILTRATION RATE . ESTIMATED GFR I S NOT APPLICABLE FOR DIALYSIS PATIEN TS. POCT-GLUCOSE [id number] 07:38:00 Test Item Value Reference Range Interpretation Comments POC-GLUCOSE METER 111 mg/dL 70-110 H TESTED AT [facility] (test code = [facility] [place] 1538) [address] B-TYPE NATRIURETIC FACTOR (BNP)2018-12-12 03:24:00 Test Item Value Reference Range Interpretation Comments B-TYPE NATRIURETIC PEPTIDE (BEAKER) 807 pg/mL 0-100 H (test code = 700) [id number] 03:20:00 Test Item Value Reference Range Interpretation Comments PHOSPHORUS (BEAKER) (test code = 3.5 mg/dL 2.3-4.7 604) [id number] 03:20:00 Test Item Value Reference Range Interpretation Comments MAGNESIUM (BEAKER) (test code = 2.2 mg/dL 1.6-2.6 627) [id number] 03:04:00 Test Item Value Reference Range Interpretation Comments PARTIAL THROMBOPLASTIN TIME 80.2 seconds 22.5-36.0 H (BEAKER) (test code = 760) CBC (HEMOGRAM ONLY)2018-12-12 02:55:00 Test Item Value Reference Range Interpretation Comments WHITE BLOOD CELL COUNT (BEAKER) 14.5 K/ L 3.5-10.5 H (test code = 775) RED BLOOD CELL COUNT (BEAKER) 5.55 M/ L 4.63-6.08 (test code = 761) HEMOGLOBIN (BEAKER) (test code = 14.2 GM/DL 13.7-17.5 410) HEMATOCRIT (BEAKER) (test code = 45.1 % 40.1-51.0 411) MEAN CORPUSCULAR VOLUME (BEAKER) 81.3 fL 79.0-92.2 (test code = 753) MEAN CORPUSCULAR HEMOGLOBIN 25.6 pg 25.7-32.2 L (BEAKER) (test code = 751) MEAN CORPUSCULAR HEMOGLOBIN CONC 31.5 GM/DL 32.3-36.5 L (BEAKER) (test code = 752) RED CELL DISTRIBUTION WIDTH 13.5 % 11.6-14.4 (BEAKER) (test code = 412) PLATELET COUNT (BEAKER) (test 332 K/CU MM 150-450 code = 756) MEAN PLATELET VOLUME (BEAKER) 10.4 fL 9.4-12.4 (test code = 754) NUCLEATED RED BLOOD CELLS 0 /100 WBC 0-0 (BEAKER) (test code = 413) POCT-GLUCOSE [id number] 22:23:00 Test Item Value Reference Range Interpretation Comments POC-GLUCOSE METER 252 mg/dL 70-110 H TESTED AT [facility] 6720 (BEAKER) (test code = [facility] [place] 1538) [address] BASIC METABOLIC [id number] 21:06:00 Test Item Value Reference Range Interpretation Comments SODIUM (BEAKER) 136 meq/L 136-145 (test code = 381) POTASSIUM (BEAKER) 4.2 meq/L 3.5-5.1 Specimen slightly (test code = 379) hemolyzed CHLORIDE (BEAKER) 95 meq/L 98-107 L (test code = 382) CO2 (BEAKER) (test 31 meq/L 22-29 H code = 355) BLOOD UREA NITROGEN 38 mg/dL 7-21 H (BEAKER) (test code = 354) CREATININE (BEAKER) 1.55 mg/dL 0.57-1.25 H Specimen slightly (test code = 358) hemolyzed GLUCOSE RANDOM 331 mg/dL 70-105 H (BEAKER) (test code = 652) CALCIUM (BEAKER) 9.0 mg/dL 8.4-10.2 (test code = 697) EGFR (BEAKER) (test 44 mL/min/1.73 ESTIMA FABRIZIO GFR IS code = 1092) sq m NOT ACCURATE CREATININE CLEARANCE IN PREDICTING GLOMERULAR FILTRATION RATE . ESTIMATED GFR I S NOT APPLICABLE FOR DIALYSIS PATIEN [id number] 19:00:00 Test Item Value Reference Range Interpretation Comments PARTIAL THROMBOPLASTIN TIME 42.7 seconds 22.5-36.0 H (BEAKER) (test code = 760) PET, CARDIAC PET, [id number] 18:10:00Reason for exam:->multivessel CAD; pre-ACBFINAL REPORT PROCEDURE: MYOCARDIAL METABOLISM PET IMAGING with Rest MYOCARDIAL PERFUSION PET IMAGING\\XA9\\[facility] CODE: [id number], [id number]: CAD, preoperative viability assessment for ACB PROTOCOL: Limited low-dose CT imaging was performed for attenuation correction. 33.2 mCi of Rb-82 chloride was injected iv at rest, and gated PET (positron emission tomography) images were obtained. After appropriate dextrose/insulin administration, 10.8 mCi of F-18 FDG was injected iv at rest; limited low-dose CT imaging was repeated; and PET images were obtained. PERF USION IMAGING FINDINGS: Study quality is good. Images obtained after Rb- 82 injection show mild decrease in activity in [...] medium size, resting perfusion defect in the inferior/inferoapica l LV. 4. Markedly decreased resting LV function. 5. Abnormal cardiac metabolism. There is a mild severity, medium size, defect of glucose metabolism in the inferior LV. 6. Combination of perfusion and metabolic images show the LV to be viable. 7. Extracardiac tracer distribution is normal. 8. No prior study for comparison. Signed: Dennys Bar MDReport Verified Date/Time: 12/11/2018 18:10:46 Reading Location: [address] Reading Room POCT- GLUCOSE [id number] 17:18:00 Test Item Value Reference Range Interpretation Comments POC-GLUCOSE METER 141 mg/dL 70-110 H TESTED AT [place] [address] ([facility]) (test code = [facility] [employer] [facility] 1538) [address] POCT-GLUCOSE [id number] 15:52:00 Test Item Value Reference Range Interpretation Comments POC-GLUCOSE METER 222 mg/dL 70-110 H TESTED AT [place] [address] ([facility]) (test code = [facility] [employer] [facility] 1538) [address] POCT-GLUCOSE [id number] 14:37:00 Test Item Value Reference Range Interpretation Comments POC-GLUCOSE METER 186 mg/dL 70-110 H TESTED AT [place] [address] ([facility]) (test code = [employer] [facility] 1538) [address] POCT-GLUCOSE [id number] 12:04:00 Test Item Value Reference Range Interpretation Comments POC-GLUCOSE METER 134 mg/dL 70-110 H TESTED AT [place] [address] ([facility]) (test code = [facility] [employer] [facility] 1538) [address] CT, CHEST, WITHOUT [id number] 11:34:00FINAL REPORT INDICATION: Hypoxemia and shortness of breath. COMPARISON:Chest r adiographs December 11, 2018 and December 08, 2018 [...] CT in six months is recommended. Signed: Taniya Obrien MDReport Verified Date/Time: 12/11/2018 11:34:47 Reading Location: [facility] Diagnostic Imaging Reading Room - [place] [id number] -GLUCOSE [id number] 07:31:00 Test Item Value Reference Range Interpretation Comments POC-GLUCOSE METER 112 mg/dL 70-110 H TESTED AT [place] [address] ([facility]) (test code = [facility] ID 1538) [id number] TROPONIN [id number] 06:39:00 Test Item Value Reference Range Interpretation Comments TROPONIN I ([facility]) (test code = 1.07 ng/mL 0.00-0.03 397) Troponin I (TnI) levels must be interpreted [...] failure, acidosis, acute neurological disease, and persistent tachyarrhythmia.[id number] 06:09:00 Test Item Value Reference Range Interpretation Comments [facility] (test code = 3.0 mg/dL 2.3-4.7 604) [id number] 06:09:00 Test Item Value Reference Range Interpretation Comments MAGNESIUM (BEAKER) (test code = 2.0 mg/dL 1.6-2.6 627) BASIC METABOLIC [id number] 06:09:00 Test Item Value Reference Range Interpretation Comments SODIUM (BEAKER) 139 meq/L 136-145 (test code = 381) POTASSIUM (BEAKER) 3.8 meq/L 3.5-5.1 (test code = 379) CHLORIDE (BEAKER) 99 meq/L 98-107 (test code = 382) CO2 (BEAKER) (test 32 meq/L 22-29 H code = 355) BLOOD UREA NITROGEN 34 mg/dL 7-21 H (BEAKER) (test code = 354) CREATININE (BEAKER) 1.24 mg/dL 0.57-1.25 (test code = 358) GLUCOSE RANDOM 109 mg/dL 70-105 H (BEAKER) (test code = 652) CALCIUM (BEAKER) 8.7 mg/dL 8.4-10.2 (test code = 697) EGFR (BEAKER) (test 57 mL/min/1.73 ESTIMA FABRIZIO GFR IS code = 1092) sq m NOT ACCURATE CREATININE CLEARANCE IN PREDICTING GLOMERULAR FILTRATION RATE . ESTIMATED GFR I S NOT APPLICABLE FOR DIALYSIS PATIEN TS. [id number] 06:08:00 Test Item Value Reference Range Interpretation Comments PHOSPHORUS (BEAKER) (test code = 3.0 mg/dL 2.3-4.7 604) B-TYPE NATRIURETIC FACTOR (BNP)2018-12-11 06:02:00 Test Item Value Reference Range Interpretation Comments B-TYPE NATRIURETIC PEPTIDE (BEAKER) 745 pg/mL 0-100 H (test code = 700) [id number] 05:47:00 Test Item Value Reference Range Interpretation Comments PARTIAL THROMBOPLASTIN TIME 80.5 seconds 22.5-36.0 H (BEAKER) (test code = 760) CBC (HEMOGRAM ONLY)2018-12-11 05:36:00 Test Item Value Reference Range Interpretation Comments WHITE BLOOD CELL COUNT (BEAKER) 14.7 K/ L 3.5-10.5 H (test code = 775) RED BLOOD CELL COUNT (BEAKER) 5.02 M/ L 4.63-6.08 (test code = 761) HEMOGLOBIN (BEAKER) (test code = 13.0 GM/DL 13.7-17.5 L 410) HEMATOCRIT (BEAKER) (test code = 39.7 % 40.1-51.0 L 411) MEAN CORPUSCULAR VOLUME (BEAKER) 79.1 fL 79.0-92.2 (test code = 753) MEAN CORPUSCULAR HEMOGLOBIN 25.9 pg 25.7-32.2 (BEAKER) (test code = 751) MEAN CORPUSCULAR HEMOGLOBIN CONC 32.7 GM/DL 32.3-36.5 (BEAKER) (test code = 752) RED CELL DISTRIBUTION WIDTH 13.4 % 11.6-14.4 (BEAKER) (test code = 412) PLATELET COUNT (BEAKER) (test 282 K/CU MM 150-450 code = 756) MEAN PLATELET VOLUME (BEAKER) 10.7 fL 9.4-12.4 (test code = 754) NUCLEATED RED BLOOD CELLS 0 /100 WBC 0-0 (BEAKER) (test code = 413) RAD, CHEST, 1 VIEW, NON [id number] 04:35:00Reason for exam:->edema, opacity?Should this be performed [...] pleural effusion or pneumothorax. Signed: Jim Tobar MDReport Verified Date/Time: 12/11/2018 04:35:08 Reading Location: [address] ReadingRoom POCT-GLUCOSE [id number] 21:59:00 Test Item Value Reference Range Interpretation Comments POC-GLUCOSE METER 167 mg/dL 70-110 H TESTED AT [facility] ([facility]) (test code = [place] 1538) [id number] BASIC METABOLIC [id number] 21:43:00 Test Item Value Reference Range Interpretation Comments SODIUM (BEAKER) 135 meq/L 136-145 L (test code = 381) POTASSIUM (BEAKER) 4.1 meq/L 3.5-5.1 (test code = 379) CHLORIDE (BEAKER) 97 meq/L 98-107 L (test code = 382) CO2 (BEAKER) (test 32 meq/L 22-29 H code = 355) BLOOD UREA NITROGEN 37 mg/dL 7-21 H (BEAKER) (test code = 354) CREATININE (BEAKER) 1.50 mg/dL 0.57-1.25 H (test code = 358) GLUCOSE RANDOM 173 mg/dL 70-105 H (BEAKER) (test code = 652) CALCIUM (BEAKER) 8.7 mg/dL 8.4-10.2 (test code = 697) EGFR (BEAKER) (test 46 mL/min/1.73 ESTIMA FABRIZIO GFR IS code = 1092) sq m NOT ACCURATE CREATININE CLEARANCE IN PREDICTING GLOMERULAR FILTRATION RATE . ESTIMATED GFR I S NOT APPLICABLE FOR DIALYSIS PATIEN TS. [id number] 21:28:00 Test Item Value Reference Range Interpretation Comments PARTIAL THROMBOPLASTIN TIME 60.6 seconds 22.5-36.0 H (BEAKER) (test code = 760) BASIC METABOLIC [id number] 17:24:00 Test Item Value Reference Range Interpretation Comments SODIUM (BEAKER) 136 meq/L 136-145 (test code = 381) POTASSIUM (BEAKER) 4.4 meq/L 3.5-5.1 Specimen slightly (test code = 379) hemolyzed CHLORIDE (BEAKER) 97 meq/L 98-107 L (test code = 382) CO2 (BEAKER) (test 31 meq/L 22-29 H code = 355) BLOOD UREA NITROGEN 35 mg/dL 7-21 H (BEAKER) (test code = 354) CREATININE (BEAKER) 1.50 mg/dL 0.57-1.25 H Specimen slightly (test code = 358) hemolyzed GLUCOSE RANDOM 135 mg/dL 70-105 H (BEAKER) (test code = 652) CALCIUM (BEAKER) 8.7 mg/dL 8.4-10.2 (test code = 697) EGFR (BEAKER) (test 46 mL/min/1.73 ESTIMA FABRIZIO GFR IS code = 1092) sq m NOT ACCURATE CREATININE CLEARANCE IN PREDICTING GLOMERULAR FILTRATION RATE . ESTIMATED GFR I S NOT APPLICABLE FOR DIALYSIS PATIEN TS. POCT-GLUCOSE [id number] 16:32:00 Test Item Value Reference Range Interpretation Comments POC-GLUCOSE METER 136 mg/dL 70-110 H TESTED AT [place] [address] ([facility]) (test code = [facility] 1538) [id number] VANCOMYCIN LEVEL, [id number] 13:55:00 Test Item Value Reference Range Interpretation Comments VANCOMYCIN TROUGH ([facility]) (test 16.8 ug/mL 10.0-20.0 code = 522) [id number] 12:49:00 Test Item Value Reference Range Interpretation Comments PARTIAL THROMBOPLASTIN TIME 47.0 seconds 22.5-36.0 H ([facility]) (test code = 760) POCT-GLUCOSE [id number] 11:53:00 Test Item Value Reference Range Interpretation Comments POC-GLUCOSE METER 161 mg/dL 70-110 H TESTED AT [place] [address] ([facility]) (test code = [facility] 1538) [address] POCT-GLUCOSE [id number] 08:12:00 Test Item Value Reference Range Interpretation Comments POC-GLUCOSE METER 164 mg/dL 70-110 H TESTED AT [place] [address] ([facility]) (test code = [facility] 1538) [address] [id number] 05:53:00 Test Item Value Reference Range Interpretation Comments PROCALCITONIN ([facility]) (test code = < ng/mL <0.05 3036) SEPSIS RISK (ng/mL)Low: 0.05-0.50Intermediate: 0.51-2.00High: >=2.01TROPONIN [id number] 05:41:00 Test Item Value Reference Range Interpretation Comments TROPONIN I ([facility]) (test code = 0.93 ng/mL 0.00-0.03 397) Troponin I (TnI) levels must be interpreted [...] disease, and persistent tachyarrhythmia.B-TYPE NATRIURETIC FACTOR (BNP) 2018-12-10 04:35:00 Test Item Value Reference Range Interpretation Comments B-TYPE NATRIURETIC PEPTIDE (BEAKER) 814 pg/mL 0-100 H (test code = 700) [id number] 04:33:00 Test Item Value Reference Range Interpretation Comments PHOSPHORUS (BEAKER) (test code = 4.8 mg/dL 2.3-4.7 H 604) [id number] 04:33:00 Test Item Value Reference Range Interpretation Comments MAGNESIUM (BEAKER) (test code = 2.2 mg/dL 1.6-2.6 627) BASIC METABOLIC [id number] 04:33:00 Test Item Value Reference Range Interpretation Comments SODIUM (BEAKER) 135 meq/L 136-145 L (test code = 381) POTASSIUM (BEAKER) 4.3 meq/L 3.5-5.1 (test code = 379) CHLORIDE (BEAKER) 100 meq/L 98-107 (test code = 382) CO2 (BEAKER) (test 28 meq/L 22-29 code = 355) BLOOD UREA NITROGEN 24 mg/dL 7-21 H (BEAKER) (test code = 354) CREATININE (BEAKER) 1.35 mg/dL 0.57-1.25 H (test code = 358) GLUCOSE RANDOM 227 mg/dL 70-105 H (BEAKER) (test code = 652) CALCIUM (BEAKER) 8.3 mg/dL 8.4-10.2 L (test code = 697) EGFR (BEAKER) (test 52 mL/min/1.73 ESTIMA FABRIZIO GFR IS code = 1092) sq m NOT ACCURATE CREATININE CLEARANCE IN PREDICTING GLOMERULAR FILTRATION RATE . ESTIMATED GFR I S NOT APPLICABLE FOR DIALYSIS PATIEN TS. LACTIC ACID, [id number] 04:25:00 Test Item Value Reference Range Interpretation Comments LACTATE BLOOD VENOUS (2) (BEAKER) 0.6 mmol/L 0.5-2.2 (test code = 2872) CBC (HEMOGRAM ONLY)2018-12-10 03:53:00 Test Item Value Reference Range Interpretation Comments WHITE BLOOD CELL COUNT (BEAKER) 10.5 K/ L 3.5-10.5 (test code = 775) RED BLOOD CELL COUNT (BEAKER) 4.71 M/ L 4.63-6.08 (test code = 761) HEMOGLOBIN (BEAKER) (test code = 12.2 GM/DL 13.7-17.5 L 410) HEMATOCRIT (BEAKER) (test code = 38.1 % 40.1-51.0 L 411) MEAN CORPUSCULAR VOLUME (BEAKER) 80.9 fL 79.0-92.2 (test code = 753) MEAN CORPUSCULAR HEMOGLOBIN 25.9 pg 25.7-32.2 (BEAKER) (test code = 751) MEAN CORPUSCULAR HEMOGLOBIN CONC 32.0 GM/DL 32.3-36.5 L (BEAKER) (test code = 752) RED CELL DISTRIBUTION WIDTH 13.2 % 11.6-14.4 (BEAKER) (test code = 412) PLATELET COUNT (BEAKER) (test 239 K/CU MM 150-450 code = 756) MEAN PLATELET VOLUME (BEAKER) 10.5 fL 9.4-12.4 (test code = 754) NUCLEATED RED BLOOD CELLS 0 /100 WBC 0-0 (BEAKER) (test code = 413) POCT-GLUCOSE [id number] 22:31:00 Test Item Value Reference Range Interpretation Comments POC-GLUCOSE METER 187 mg/dL 70-110 H TESTED AT [place] [address] ([facility]) (test code = [place] 1538) [address] POCT-GLUCOSE [id number] 17:19:00 Test Item Value Reference Range Interpretation Comments POC-GLUCOSE METER 158 mg/dL 70-110 H TESTED AT [place] [address] ([facility]) (test code = [place] 1538) [address] HEMOGLOBIN [id number] 14:57:00 Test Item Value Reference Range Interpretation Comments HEMOGLOBIN A1C ([facility]) (test code = 5.7 % 4.3-6.1 368) POCT-GLUCOSE [id number] 12:19:00 Test Item Value Reference Range Interpretation Comments POC-GLUCOSE METER 140 mg/dL 70-110 H TESTED AT [place] [address] (BEAKER) (test code = [address] [address] [facility] 1538) [id number] URINALYSIS W/ REFLEX URINE [id number] 11:34:00 Test Item Value Reference Range Interpretation Comments COLOR (BEAKER) (test code = 470) Yellow CLARITY (BEAKER) (test code = 469) Clear SPECIFIC GRAVITY UA (BEAKER) (test 1.009 1.001-1.035 code = 468) PH UA (BEAKER) (test code = 467) 5.0 5.0-8.0 PROTEIN UA (BEAKER) (test code = 20 mg/dL Negative A 464) GLUCOSE UA (BEAKER) (test code = Negative Negative 365) KETONES UA (BEAKER) (test code = Negative Negative 371) BILIRUBIN UA (BEAKER) (test code = Negative Negative 462) BLOOD UA (BEAKER) (test code = 461) Moderate Negative A NITRITE UA (BEAKER) (test code = Negative Negative 465) LEUKOCYTE ESTERASE UA (BEAKER) Moderate Negative A (test code = 466) UROBILINOGEN UA (BEAKER) (test code 0.2 mg/dL 0.2-1.0 = 463) RBC UA (BEAKER) (test code = 519) 27 /HPF WBC UA (BEAKER) (test code = 520) 20 /HPF MUCUS (BEAKER) (test code = 1574) Rare SQUAMOUS EPITHELIAL (BEAKER) (test < /HPF code = 516) SOURCE(BEAKER) (test code = 2795) [id number] 11:13:00 Test Item Value Reference Range Interpretation Comments PARTIAL THROMBOPLASTIN TIME 51.5 seconds 22.5-36.0 H (BEAKER) (test code = 760) RESPIRATORY PANEL [id number] 10:18:00 Test Item Value Reference Range Interpretation Comments HUMAN METAPNEUMOVIRUS Not detected Not detected, (BEAKER) (test code = 2683) Equivocal RHINOVIRUS (BEAKER) (test Not detected Not detected, code = 2684) Equivocal INFLUENZA A (BEAKER) (test Not detected Not detected, code = 2685) Equivocal INFLUENZA A (NO SUBTYPE) Not detected, (test code = 4626) Equivocal INFLUENZA A SUBTYPE H1 Not detected, (BEAKER) (test code = 2686) Equivocal INFLUENZA A SUBTYPE H3 Not detected, (BEAKER) (test code = 2687) Equivocal INFLUENZA A SUBTYPE H1-2009 Not detected, (BEAKER) (test code = 3198) Equivocal INFLUENZA B (BEAKER) (test Not detected Not detected, code = 2688) Equivocal RESPIRATORY SYNCYTIAL VIRUS Not detected Not detected, (BEAKER) (test code = 3199) Equivocal PARAINFLUENZA VIRUS 1 Not detected Not detected, (BEAKER) (test code = 2691) Equivocal PARAINFLUENZA VIRUS 2 Not detected Not detected, (BEAKER) (test code = 2692) Equivocal PARAINFLUENZA VIRUS 3 Not detected Not detected, (BEAKER) (test code = 2693) Equivocal PARAINFLUENZA VIRUS 4 Not detected Not detected, (BEAKER) (test code = 3200) Equivocal ADENOVIRUS (BEAKER) (test Not detected Not detected, code = 2694) Equivocal CORONAVIRUS 229E (BEAKER) Not detected Not detected, (test code = 3201) Equivocal CORONAVIRUS HKU1 (BEAKER) Not detected Not detected, (test code = 3202) Equivocal CORONAVIRUS NL63 (BEAKER) Not detected Not detected, (test code = 3203) Equivocal CORONAVIRUS OC43 (BEAKER) Not detected Not detected, (test code = 3204) Equivocal BORDETELLA PERTUSSIS Not detected Not detected, (BEAKER) (test code = 3205) Equivocal CHLAMYDOPHILA PNEUMONIAE Not detected Not detected, (BEAKER) (test code = 3206) Equivocal MYCOPLASMA PNEUMONIAE Not detected Not detected, (BEAKER) (test code = 3207) Equivocal Other viruses and bacteria not targeted by this PCR panel cannot be excluded; therefore clinical correlation and follow up of serology, culture results, and other molecular studies is required. The results are not intended to be used as the sole means for clinical diagnosis or patient management decisions. This sample was tested at the [facility] using the [employer]Array Respiratory Panel. It is FDA cleared and has been verified and approved by the [facility] for clinical use on nasopharyngeal swab specimens.The performance of the [employer] has not been established in individuals who received influenza vaccine. Recent administration ofa nasal influenza vaccine may cause false positive results for Influenza A and/orInfluenza B.POCT-GLUCOSE [id number] 07:53:00 Test Item Value Reference Range Interpretation Comments POC-GLUCOSE METER 181 mg/dL 70-110 H TESTED AT [facility] 6720 (BEAKER) (test code = [place] 1538) [address] COMPREHENSIVE METABOLIC [id number] 02:51:00 Test Item Value Reference Range Interpretation Comments TOTAL PROTEIN 6.9 gm/dL 6.0-8.3 Specimen sligh tly (BEAKER) (test code = hemoly zed 770) ALBUMIN (BEAKER) 3.4 g/dL 3.5-5.0 L Specimen sl ightly (test code = 1145) hemolyzed ALKALINE PHOSPHATASE 66 U/L 40-150 (BEAKER) (test code = 346) BILIRUBIN TOTAL 0.5 mg/dL 0.2-1.2 Specimen sli ghtly (BEAKER) (test code = hemoly zed 377) SODIUM (BEAKER) (test 138 meq/L 136-145 code = 381) POTASSIUM (BEAKER) 4.4 meq/L 3.5-5.1 Specimen slightly (test code = 379) hemolyzed CHLORIDE (BEAKER) 108 meq/L 98-107 H (test code = 382) CO2 (BEAKER) (test 20 meq/L 22-29 L code = 355) BLOOD UREA NITROGEN 17 mg/dL 7-21 (BEAKER) (test code = 354) CREATININE (BEAKER) 1.20 mg/dL 0.57-1.25 Specimen slightly (test code = 358) hemolyzed GLUCOSE RANDOM 135 mg/dL 70-105 H (BEAKER) (test code = 652) CALCIUM (BEAKER) 8.5 mg/dL 8.4-10.2 (test code = 697) AST (SGOT) (BEAKER) 13 U/L 5-34 Specimen slightly (test code = 353) hemolyzed ALT (SGPT) (BEAKER) 11 U/L 6-55 Specimen slightly (test code = 347) hemolyzed EGFR (BEAKER) (test 60 mL/min/1.73 ESTIMA FABRIZIO GFR IS code = 1092) sq m NOT ACCURATE CREATININE CLEARANCE IN PREDICTING GLOMERULAR FILTRATION RATE . ESTIMATED GFR I S NOT APPLICABLE FOR DIALYSIS PATIEN TS. TROPONIN [id number] 02:40:00 Test Item Value Reference Range Interpretation Comments TROPONIN I (BEAKER) (test code = 1.38 ng/mL 0.00-0.03 HH 397) Troponin I (TnI) levels must be interpreted [...] disease, and persistent tachyarrhythmia.B-TYPE NATRIURETIC FACTOR (BNP) 2018-12-09 02:23:00 Test Item Value Reference Range Interpretation Comments B-TYPE NATRIURETIC PEPTIDE (BEAKER) 608 pg/mL 0-100 H (test code = 700) [id number] 02:15:00 Test Item Value Reference Range Interpretation Comments MAGNESIUM (BEAKER) 1.7 mg/dL 1.6-2.6 Specimen slightly (test code = 627) hemolyzed [id number] 02:15:00 Test Item Value Reference Range Interpretation Comments PHOSPHORUS (BEAKER) 3.1 mg/dL 2.3-4.7 Specimen slightly (test code = 604) hemolyzed CBC W/PLT COUNT & AUTO [id number] 02:04:00 Test Item Value Reference Range Interpretation Comments WHITE BLOOD CELL COUNT (BEAKER) 11.4 K/ L 3.5-10.5 H (test code = 775) RED BLOOD CELL COUNT (BEAKER) 4.93 M/ L 4.63-6.08 (test code = 761) HEMOGLOBIN (BEAKER) (test code = 12.9 GM/DL 13.7-17.5 L 410) HEMATOCRIT (BEAKER) (test code = 40.5 % 40.1-51.0 411) MEAN CORPUSCULAR VOLUME (BEAKER) 82.2 fL 79.0-92.2 (test code = 753) MEAN CORPUSCULAR HEMOGLOBIN 26.2 pg 25.7-32.2 (BEAKER) (test code = 751) MEAN CORPUSCULAR HEMOGLOBIN CONC 31.9 GM/DL 32.3-36.5 L (BEAKER) (test code = 752) RED CELL DISTRIBUTION WIDTH 13.8 % 11.6-14.4 (BEAKER) (test code = 412) PLATELET COUNT (BEAKER) (test 242 K/CU MM 150-450 code = 756) MEAN PLATELET VOLUME (BEAKER) 10.8 fL 9.4-12.4 (test code = 754) NUCLEATED RED BLOOD CELLS 0 /100 WBC 0-0 (BEAKER) (test code = 413) NEUTROPHILS RELATIVE PERCENT 92 % (BEAKER) (test code = 429) LYMPHOCYTES RELATIVE PERCENT 4 % (BEAKER) (test code = 430) MONOCYTES RELATIVE PERCENT 2 % (BEAKER) (test code = 431) EOSINOPHILS RELATIVE PERCENT 0 % (BEAKER) (test code = 432) BASOPHILS RELATIVE PERCENT 1 % (BEAKER) (test code = 437) NEUTROPHILS ABSOLUTE COUNT 10.49 K/ L 1.78-5.38 H (BEAKER) (test code = 670) LYMPHOCYTES ABSOLUTE COUNT 0.48 K/ L 1.32-3.57 L (BEAKER) (test code = 414) MONOCYTES ABSOLUTE COUNT (BEAKER) 0.27 K/ L 0.30-0.82 L (test code = 415) EOSINOPHILS ABSOLUTE COUNT 0.00 K/ L 0.04-0.54 L (BEAKER) (test code = 416) BASOPHILS ABSOLUTE COUNT (BEAKER) 0.07 K/ L 0.01-0.08 (test code = 417) IMMATURE GRANULOCYTES-RELATIVE 0 % 0-1 PERCENT (BEAKER) (test code = 2801) [id number] 01:59:00 Test Item Value Reference Range Interpretation Comments PARTIAL THROMBOPLASTIN TIME 40.5 seconds 22.5-36.0 H (BEAKER) (test code = 760) POCT-GLUCOSE [id number] 22:21:00 Test Item Value Reference Range Interpretation Comments POC-GLUCOSE METER 136 mg/dL 70-110 H [facility] (test code = [facility] 1538) [address] RAD, CHEST, 1 VIEW, NON [id number] 21:04:00Reason for exam:->shortness of breathShould this be performed at the bedside?->YesFINAL REPORT EXAMINATION: AP PORTABLE CHEST RADIOGRAPH CLINICAL INDICATION: Sh ortness of breath IMPRESSION: Compared with 12/08/2018 1749 hours. As before, lung volumes are relatively large, nonspecific but can be associated with obstructive lung disease. Scattered reticular opacities are redemonstrated throughout both lungs, possibly reflecting pulmonary edema. 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 Signed: Kevin Atkins MDReport Verified Date/Time: 12/08/2018 21:04:01 Reading Location: [address] Reading Room BUN AND CREATININE 2018-12-08 20:26:00 Test Item Value Reference Range Interpretation Comments BLOOD UREA NITROGEN 18 mg/dL 7-21 ([facility]) (test code = 354) CREATININE ([facility]) 1.30 mg/dL 0.57-1.25 H (test code = 358) EGFR ([facility]) (test 54 mL/min/1.73 ESTIMA FABRIZIO GFR IS code = 1092) sq m NOT ACCURATE CREATININE CLEARANCE IN PREDICTING GLOMERULAR FILTRATION RATE . ESTIMATED GFR I S NOT APPLICABLE FOR DIALYSIS PATIEN TS. THEOPHYLLINE [id number] 19:28:00 Test Item Value Reference Range Interpretation Comments THEOPHYLLINE LEVEL ([facility]) (test 10.1 ug/mL 10.0-20.0 code = 551) [id number] 19:09:00 Test Item Value Reference Range Interpretation Comments PARTIAL THROMBOPLASTIN TIME 36.3 seconds 22.5-36.0 H (BEAKER) (test code = 760) Prior to initiating heparinSTREP PNEUMONIAE [id number] 19:00:00 Test Item Value Reference Range Interpretation Comments STREP PNEUMONIAE Presumptive negative Presumptive negative ANTIGEN (AKER) for pneumococcal for pneumococcal (test code = 1615) pneumonia - see pneumonia - see comment commen Presumptive negative for pneumococcal pneumonia, suggesting no current or recent pneumococcal infection. Infection due to S. pneumoniae cannot be ruled out since the antigen present in the sample may be below the detection limit of the test.LEGIONELLA ANTIGEN, [id number] 18:59:00 Test Item Value Reference Range Interpretation Comments L. PNEUMOPHILA Negative - see Negative fo r L. SEROGP 1 UR AG comment pneumophila (BEAKER) (test code serogrou p 1 antigen, = 1156) suggesting no r ecent or current infe ction with this serog roup. Legionellosis c annot be ruled out si nce other serogroup s and species may cau se disease. RAD, CHEST, 1 VIEW, NON [id number] 18:51:00Reason for exam:- >hypoxemiaShould this be performed at the bedside?->YesFINAL REPORT [...] lung and left lower lobe. Signed: Katie Salinasort Verified Date/Time: 12/08/2018 18:51:41 Reading Location: [facility] C0W Consult Reading Room Electronically signed by: KATIE SALINAS M.D.on 12/08/2018 06:51 PM BLOOD GAS, [id number] 18:41:00 Test Item Value Reference Range Interpretation Comments PH ARTERIAL (BEAKER) (test code = 7.47 7.35-7.45 H 383) PCO2 ARTERIAL (BEAKER) (test code 35 mmHg 35-45 = 384) PO2 ARTERIAL (BEAKER) (test code = 97 mmHg 80-90 H 385) O2 SATURATION ARTERIAL (BEAKER) 97.8 % 96.0-97.0 H (test code = 386) HCO3 ARTERIAL (BEAKER) (test code 25 mmol/L 21-29 = 388) BASE EXCESS ARTERIAL (BEAKER) 1.4 mmol/L -2.0-3.0 (test code = 387) PATIENT TEMPERATURE (BEAKER) (test 37.0 C code = 1818) FIO2 (BEAKER) (test code = 1819) 44.0 % TROPONIN [id number] 18:35:00 Test Item Value Reference Range Interpretation Comments TROPONIN I (BEAKER) (test code = 1.24 ng/mL 0.00-0.03 HH 397) Troponin I (TnI) levels must be interpreted [...] acute neurological disease, and persistent tachyarrhythmia.LACTIC ACID, [id number] 18:17:00 Test Item Value Reference Range Interpretation Comments LACTATE BLOOD VENOUS 1.6 mmol/L 0.5-2.2 Specime n moderately (2) ([facility]) (test hemolyzed code = 2872) [id number] 18:14:00 Test Item Value Reference Range Interpretation Comments MAGNESIUM (BEAKER) (test code = 1.7 mg/dL 1.6-2.6 627) POCT-GLUCOSE [id number] 18:06:00 Test Item Value Reference Range Interpretation Comments POC-GLUCOSE METER 123 mg/dL 70-110 H TESTED AT [facility] 6720 ([facility]) (test code = [place] 1538) [address] CBC W/PLT COUNT & AUTO [id number] 17:57:00 Test Item Value Reference Range Interpretation Comments WHITE BLOOD CELL COUNT (AKER) 11.6 K/ L 3.5-10.5 H (test code = 775) RED BLOOD CELL COUNT (AKER) 4.99 M/ L 4.63-6.08 (test code = 761) HEMOGLOBIN (BEAKER) (test code = 13.1 GM/DL 13.7-17.5 L 410) HEMATOCRIT (BEAKER) (test code = 40.1 % 40.1-51.0 411) MEAN CORPUSCULAR VOLUME (AKER) 80.4 fL 79.0-92.2 (test code = 753) MEAN CORPUSCULAR HEMOGLOBIN 26.3 pg 25.7-32.2 (BEAKER) (test code = 751) MEAN CORPUSCULAR HEMOGLOBIN CONC 32.7 GM/DL 32.3-36.5 (BEAKER) (test code = 752) RED CELL DISTRIBUTION WIDTH 13.8 % 11.6-14.4 (BEAKER) (test code = 412) PLATELET COUNT (BEAKER) (test 243 K/CU MM 150-450 code = 756) MEAN PLATELET VOLUME (BEAKER) 10.6 fL 9.4-12.4 (test code = 754) NUCLEATED RED BLOOD CELLS 0 /100 WBC 0-0 (BEAKER) (test code = 413) NEUTROPHILS RELATIVE PERCENT 81 % (BEAKER) (test code = 429) LYMPHOCYTES RELATIVE PERCENT 8 % (BEAKER) (test code = 430) MONOCYTES RELATIVE PERCENT 10 % (BEAKER) (test code = 431) EOSINOPHILS RELATIVE PERCENT 0 % (BEAKER) (test code = 432) BASOPHILS RELATIVE PERCENT 1 % (BEAKER) (test code = 437) NEUTROPHILS ABSOLUTE COUNT 9.42 K/ L 1.78-5.38 H (BEAKER) (test code = 670) LYMPHOCYTES ABSOLUTE COUNT 0.87 K/ L 1.32-3.57 L (BEAKER) (test code = 414) MONOCYTES ABSOLUTE COUNT (BEAKER) 1.19 K/ L 0.30-0.82 H (test code = 415) EOSINOPHILS ABSOLUTE COUNT 0.04 K/ L 0.04-0.54 (BEAKER) (test code = 416) BASOPHILS ABSOLUTE COUNT (BEAKER) 0.08 K/ L 0.01-0.08 (test code = 417) IMMATURE GRANULOCYTES-RELATIVE 0 % 0-1 PERCENT (BEAKER) (test code = 2931)
[2020-03-18 08:52] LABS: Absolute Lymphocytes (CBC) 0.8 K/uL (0.7-4.9); Basophils % 1.9 % (0-1.3); Hematocrit 33.9 % (39.6-49.0); Lymphocytes % 16.5 % (15.3-44.8); RBC Red Blood Cell Count 4.61 M/uL (4.33-5.43)
[2020-03-18 08:59] LABS: Potassium 4.1 mmol/L (3.5-5.1)
[2020-03-18] MEDS ORDERED: NA CHLORIDE 0.9% 1,000 ML ONE (09:17)
[2020-03-18] MEDS ORDERED: CEFAZOLIN/SWI 1gm 1 GM/10 ML SYR ONE (09:20)
[2020-03-18] MEDS ORDERED: HEPARIN 5000 UNIT/ML 1 ML VIAL ONE (10:19)
[2020-03-18] MEDS ORDERED: NS 0.9% VIAL 20 ML ONE (10:19)
[2020-03-18] MEDS ORDERED: LIDOCAINE 1% 20 ML MDV ONE (10:19)
[2020-03-18] MEDS ORDERED: propofoL 200 MG/20 ML VIAL IV ONE (11:11)
[2020-03-18] MEDS ORDERED: LIDOCAINE 2% MPF 5 ML VIAL ONE (11:11)
[2020-03-18] MEDS ORDERED: ROCURONIUM 50 MG/5 ML VIAL IV ONE (11:11)
[2020-03-18] MEDS ORDERED: FENTANYL CITR 100 MCG/2 ML ONE (11:11)
[2020-03-18] MEDS ORDERED: NS 0.9% VIAL 10 ML ONE (12:09)
[2020-03-18] MEDS ORDERED: Phenylephrine HCl 10 MG/ML 1 ML VIAL ONE (12:09)
[2020-03-18] MEDS ORDERED: GLYCOPYRROLATE 0.2 MG/ML SYR ONE ×2 (12:14→12:16)
[2020-03-18] MEDS ORDERED: NEOSTIGMINE 1 MG/ML -5 ML ONE (12:15)
--- NOTE | 2020-03-18 12:16 | RAD REPORT ---
EXAM DESCRIPTION: RAD - Fluoroscopy <1 Hour - 03/18/2020 12:11 pm CLINICAL HISTORY: Venous catheter insertion. PORT A CATH PLACEMENT COMPARISON: Vent Perfusion VQ Scan dated 06/14/2016 FINDINGS: Fluoroscopic imaging is submitted from placement of a venous catheter. Details of the pro cedure not available. Fluoroscopy time: 0.2 minutes
[2020-03-18] MEDS ORDERED: ESMOLOL HCL 10 ML IV ONE (12:54)
[2020-03-18] MEDS: HYDROMORPHONE HCL 1 MG/ML INJ ONE ×5 (13:03→13:50)
[2020-03-18] MEDS ORDERED: ONDANSETRON 4 MG/2 ML VIAL ONE (13:12)
--- NOTE | 2020-03-18 13:22 | RAD REPORT ---
EXAM DESCRIPTION: Megt Single View03/18/2020 1:10 pm CLINICAL HISTORY: Device placement/central venous catheter placement IMPRESSION: Central venous catheter with its tip in the superior vena cava No pneumothorax
[2020-03-18 13:37] VITALS: O2SAT 100
[2020-03-18 13:46] VITALS: BP 128/57; TEMP 97.9
--- NOTE | 2020-03-18 13:52 | OP ---
Date of Procedure: 03/18/2020 Surgeon: Primo Cota MD Patent Leather Sorter: MARÍA Cross. Preoperative Diagnosis: Esophageal cancer. Postoperative Diagnosis: Esophageal cancer. Procedures Performed: Placement of right internal jugular Port-A-Cath, interpretation of fluoroscopy and open gastrostomy. Estimated Blood Loss: Minimal. Specimen: None. Findings: Normal anatomy. Anesthesia: General. Complications: None. Disposition: The patient tolerated procedure in stable condition, taken to Recovery in good general condition. Description Of Procedure: The patient was brought to the OR and placed in supine position. General anesthesia was begun. The patient was prepped and draped in the usual sterile fashion. Marcaine 0.5 % was infiltrated locally. Skin incision was made. An 18-gauge needle was used to access the right IJ vein. Guidewire was passed. Position was confirmed with fluoroscopy. A 3 cm counterincision was made. Pocket was created. Tunneling device was used to tunnel the catheter between the 2 wounds un paris Seldinger technique and under fluoroscopy, the tip of the catheter was placed in the SVC and cut to appropriate size, attached to the Port-A-Cath device. Port-A-Cath device was attached to subcutan eous tissue with 3-0 Vicryl and then 3-0 chromic was used to approximate the subcutaneous tissue and close the skin. The catheter was flushed with heparin and packed with heparin with good blood flow. Sterile dressing was applied and then, an upper midline small 4 cm incision was made. Subcutaneous tissue was divided. Fascia was identified and divided. Peritoneal cavity was entered with sharp and blunt dissection. Stomach was identified and the body of the stomach. Two pursestring 3-0 silk sutu res were placed and then a 22-Occitan gastrostomy tube was placed through the left upper quadrant and gastrotomy was made. The tube was placed into the stomach and the balloon was inflated to 20 cc. Th en, the tube was secured to the anterior abdominal wall and the stomach and the pursestrings were tie d to secure the opening and then the stomach was attached to the peritoneal surface with 3-0 silk tie and the tube was flushed with air with insufflation of the stomach. There was some gastric contents seen as well coming out of the tube. Subsequently, the midline incision was closed with #2. Subcut aneous wounds were irrigated. Bleeding was controlled with cautery. A 3-0 chromic was used to approx imate the subcutaneous tissue and rolanda were used to close the skin. Sterile dressing was applied. The patient was awakened and taken to Recovery in good general condition. Discharge Note: The patient will go to Day surgery and home when stable. Disposition: Home. Condition: Stable. Discharge Instructions: Resume home meds and diet. Activity as tolerated. No heavy lifting. Remov e outer dressing in 2 days. Sponge bathe. Followup in my office in 10 days. Call for appointment. [facility] up in the [facility] and [facility] will manage the gastrostomy tube. Tylenol No. 3 one tablet p .o. q.4 p.r.n. pain. /MODL Voice ID: [id number] Report ID: [id number]
[2020-03-18] MEDS ORDERED: MEPERIDINE HCL 25 MG/ML SYR ONE (13:55)
[2020-03-18 14:04] LABS: Anisocytosis 3+; Blood Morphology Comment NOTED (NOT SEEN); Platelet Estimate ADEQ; White Blood Cell Scan OK (OK)
[2020-03-18 14:05] LABS: Burr Cells 1+; Ovalocytes 1+
== END 2020-03-18 14:45 | disposition home or self-care (01) ==
LOC: OR 08:19
PROVIDERS: ATTEND Surgery
PROC: 02HV33Z Insertion of Infusion Device into Superior Vena Cava, Percutaneous Approach (ICD-10-PCS; 2020-03-18)
PROC: 0DH60UZ Insertion of Feeding Device into Stomach, Open Approach (ICD-10-PCS; 2020-03-18)
PROC: 0JH63XZ Insertion of Tunneled Vascular Access Device into Chest Subcutaneous Tissue and Fascia, Percutaneous Approach (ICD-10-PCS; principal; 2020-03-18 10:15)
DX: C15.5 Malignant neoplasm of lower third of esophagus (principal); C67.9 Malignant neoplasm of bladder, unspecified; Z20.828 Contact with and (suspected) exposure to other viral communicable diseases; J44.9 Chronic obstructive pulmonary disease, unspecified; E11.9 Type 2 diabetes mellitus without complications; I25.10 Atherosclerotic heart disease of native coronary artery without angina pectoris; I11.0 Hypertensive heart disease with heart failure; I50.9 Heart failure, unspecified; K21.9 Gastro-esophageal reflux disease without esophagitis; E78.5 Hyperlipidemia, unspecified; Z79.01 Long term (current) use of anticoagulants; Z79.899 Other long term (current) drug therapy; Z95.1 Presence of aortocoronary bypass graft; Z87.891 Personal history of nicotine dependence
CPT/HCPCS: 93005; 85025; 80048; 36415; 82947 ×2; 71045; 36561; 43830; U0002; J2704; J2370; J1644 ×2; J3010; J2175; J1170 ×2; J2710; J0690; J7030; J2405; C1788; 76000